=== PATIENT | female | born 1995 | race Caucasian/White ===

== ENCOUNTER 2024-06-28 18:05 | Emergency (ER) | payer OTHER, SELFPAY ==
[2024-06-28 18:09] VITALS: BP 142/83; PULSE 89; TEMP 36.9; O2SAT 99
--- NOTE | 2024-06-28 18:14 | ED.DENTAL1 ---
HPI - Dental/Oral General Chief complaint: Dental/Oral Stated complaint: DENTAL PAIN Time Seen by Provider: 06/28/24 18:06 Source: patient Mode of arrival: walk-in History of Present Illness HPI Narrative: Patient is a 28-year-old female who presents to the ER for evaluation of dental pain. Patient states she has been sleeping most of the day but the pain worsened after waking. She has known dental caries, she reports not being able to see a dentist for several months but recently moved to the area. She denies any swelling or drainage, there is been no fever. She is not taking anything for pain describes intense aching in the right lower jaw. No difficulty swallowing. Patient reports not being on antibiotics in recent months. She is tearful at the bedside. MD Complaint: Reports tooth pain Duration: constant Context: history of dental caries Treatment prior to arrival: none Related Data Previous Rx's ?Medication ?Instructions ?Recorded ibuprofen 600 mg tablet 600 mg PO TID PRN pain #30 tabs 06/28/24 penicillin V potassium 500 mg 500 mg PO TID #30 tabs 06/28/24 tablet Allergies Allergy/AdvReac Type Severity Reaction Status Date / Time No Known Drug Allergies Allergy Verified 06/28/24 18:12 Review of Systems ROS Constitutional Denies: fever or chills Ears, nose, mouth, and throat Denies: throat pain, neck pain or throat swelling Cardiovascular Denies: chest pain, palpitations or edema Respiratory Denies: shortness of breath or cough Gastrointestinal Denies: abdominal pain or nausea Musculoskeletal Denies: back pain Integumentary/Breast Denies: rash or itching Neurological Denies: headache Exam Narrative Exam Narrative: Nurses notes reviewed and patient is noted to be non-hypoxic. General: The patient is comfortable, alert and oriented x3, well appearing, non toxic in no apparent distress. Head: Atraumatic and normocephalic. Eyes: Normal conjunctiva, no exudates. ENT: The oropharynx is normal. No pharyngeal erythema, uvular edema, tonsillar exudates, asymmetry or trismus. Uvula is midline. Mouth is normal to inspection With the exception of a pain on percussion to eroded molar at gum line right lower jaw. Multiple teeth with evidence of dental caries at various stages of decay. . There is no evidence of facial asymmetry or abscess formation. Floor of the mouth is soft. No tenderness in the submental or submandibular space. No tongue elevation or deviation. The patient has no evidence of periapical abscess, gingivitis, ANUG or other acute pathology. Airway is patent. Neck: The neck demonstrates normal range of motion. No meningeals signs are present. No stridor. No masses or lymphandenopathy noted. Respiratory: No acute distress, lungs are clear to auscultation, no wheezing, rhonchi, or rales noted. No stridor or retractions are noted. Cardiovascular: Regular rate and rhythm Skin: The skin exam shows no evidence of rashes Neuro: Alert and oriented x4, normal speech Lymphatic: No cervical lymphadenopathy Constitutional Vital Signs, click to edit/add: Last Vital Signs Temp 98.4 F 06/28/24 18:09 Pulse 89 06/28/24 18:09 Resp 20 06/28/24 18:09 BP 142/83 H 06/28/24 18:09 Pulse Ox 99 06/28/24 18:09 O2 Del Method Room Air 06/28/24 18:09 Course Vital Signs Vital signs: Vital Signs Temperature 98.4 F 06/28/24 18:09 Pulse Rate 89 06/28/24 18:09 Respiratory Rate 20 06/28/24 18:09 Blood Pressure 142/83 H 06/28/24 18:09 Pulse Oximetry 99 06/28/24 18:09 Oxygen Delivery Method Room Air 06/28/24 18:09 Temperature 98.4 F 06/28/24 18:09 Pulse Rate 89 06/28/24 18:09 Respiratory Rate 20 06/28/24 18:09 Blood Pressure 142/83 H 06/28/24 18:09 Pulse Oximetry 99 06/28/24 18:09 Oxygen Delivery Method Room Air 06/28/24 18:09 MDM - Dental/Oral MDM Narrative Medical decision making narrative: oarrs reviewed. prior tx with Buprenorphine-Nalox 8-2mg Film, Will not rx narcotic pain medicine, no evidence of abscess. Appearance of dentition appears very chronic, but will cover with antibiotic given possiblity of dental infection with onset of pain. Recommend Motrin/ tylenol. ( 1st dose given here with PCN VK)- rx sent to pharmacy. Discussed importance of prompt dental follow up. The patient is to followup with DDS, primary care physician in next 2-3 days or to return to the emergency department should any of the signs or symptoms worsen or new symptoms develop. Patient had questions answered. The patient agrees with the following Diagnosis and Treatment plan and the patient will be discharged home. Discharge Plan Discharge Stand Alone Forms: Work/School Release, Portal Instructions Chief Complaint: Dental/Oral Clinical Impression: Dental caries, Toothache Patient Disposition: Home, Self-Care Time of Disposition Decision: 18:14 Condition: Good Prescriptions / Home Meds: New ibuprofen 600 mg tablet 600 mg PO TID PRN (Reason: pain) Qty: 30 0RF penicillin V potassium 500 mg tablet 500 mg PO TID Qty: 30 0RF Print Language: Polish Instructions: Toothache (ED) Additional Instructions: Dental clinic sheet given, please call Saturday for appt. Referrals: Physician,Non-Staff, MD [Primary Care Provider] - 1 week YUE CARTER [Nurse Practitioner] - As soon as possible
[2024-06-28] MEDS: BENZOCAINE 30 ML, lidocaine HCL 15 ML MM (18:25)
[2024-06-28] MEDS: PENICILLIN V POTASSIUM 250 MG TABLET 500 MG PO (18:25)
[2024-06-28] MEDS: IBUPROFEN 600 MG TABLET PO (18:26)
[2024-06-28] MEDS: ACETAMINOPHEN 500 MG TABLET 1000 MG PO (18:26)
== END 2024-06-28 18:34 | disposition home or self-care (01) ==
PROVIDERS: Emergency Provider Emergency Medicine Emergency Medical Services
DX: K02.9 Dental caries, unspecified (principal); K08.89 Other specified disorders of teeth and supporting structures
CPT/HCPCS: 99283

== ENCOUNTER 2024-07-26 11:30 | Emergency (ER) | payer OTHER, SELFPAY ==
--- OUTSIDE RECORDS SUMMARY | 2024-07-26 11:38 | XMS_ITS | CCD ---
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 cannot be excluded). Retest in 2-4 weeks if syphilis is clinically suspect. Performed By: #### T REP, PHEP, HIVCMB #### [address] [address] Pump Tester: Perry Marte MD #### CDP HCG, CP #### [address] [place], [place] [phone] Pump Tester: Adonis Thomas MD UA w/Reflex Cultureon 2023 Bilirubin, SemiQt,Ur Negative Normal NEG [facility] Comment on above: Performed By: #### U AX, UMICAO #### [facility] [address] [place], [place] [phone] Pump Tester: Adonis Thomas MD Blood, Urine 2+ Abnormal NEG [facility] Comment on above: Performed By: #### U AX, UMICAO #### [facility] [address] [place], [place] [phone] Pump Tester: Adonis Thomas MD Clarity (U) Clear Normal CLEAR [facility] Comment on above: Performed By: #### U AX, UMICAO #### [facility] [address] [place], [place] [phone] Pump Tester: Adonis Thomas MD Color (U) Yellow Normal YEL [facility] Comment on above: Performed By: #### U AX, UMICAO #### [facility] [address] [place], [place] [phone] Pump Tester: Adonis Thomas MD Glucose Ql (U) Negative Normal NEG [facility] Comment on above: Performed By: #### U AX, UMICAO #### [address] [place] [address] Pump Tester: Adonis Thomas MD Ketones Ql (U) Negative Normal NEG [facility] Comment on above: Performed By: #### U AX, UMICAO #### [facility] [address] [place], [place] [phone] Pump Tester: Adonis Thomas MD Leukocyte esterase Test strip Ql (U) Negative Normal NEG [facility] Comment on above: Performed By: #### U AX, UMICAO #### [facility] [address] [place], [place] [phone] Pump Tester: Adonis Thomas MD Nitrite,Ur Negative Normal NEG [facility] Comment on above: Performed By: #### U AX, UMICAO #### [facility] [address] [place], [place] [phone] Pump Tester: Adonis Thomas MD PH,Ur 6.0 Normal 5.0-9.0 [facility] Comment on above: Performed By: #### U AX, UMICAO #### [facility] [address] [place], [place] [phone] Pump Tester: Adonis Thomas MD Protein Ql (U) Negative Normal NEG [facility] Comment on above: Performed By: #### U AX, UMICAO #### [facility] [address] [place], [place] [phone] Pump Tester: Adonis Thomas MD Spec. [place],Ur >1.030 High 1.010-1.020 [facility] Comment on above: Performed By: #### U AX, UMICAO #### [facility] [address] [place] [address] [place], [place] [phone] Pump Tester: Adonis Thomas MD Urobilinogen,Ur Normal Normal 0.0-1.0 [facility] Comment on above: Performed By: #### U AX, UMICAO #### [facility] [address] [place] [address] Dr[place], [place] [phone] Pump Tester: Adonis Thomas MD Urinalysis,Microon 4 Bacteria 1+ Abnormal NONE [facility] Comment on above: Performed By: #### U AX, UMICAO #### [facility] [address] [place], [place] [phone] Pump Tester: Adonis Thomas MD Epithelial cells LM Ql (Urine sed) 10 TO 20 Normal 0-25 [facility] Comment on above: Performed By: #### U AX, UMICAO #### [facility] [address] [place], [place] [phone] Pump Tester: Adonis Thomas MD Urine RBC's 2 TO 5 Normal 0-2 [facility] Comment on above: Performed By: #### U AX, UMICAO #### [facility] [address] [place] [address] Pump Tester: Adonis Thomas MD Urine WBC's 0 TO 2 Normal 0-5 [facility] Comment on above: Performed By: #### U AX, UMICAO #### [facility] [address] [place] [address] Pump Tester: Adonis Thomas MD C. trachomatis and N. gonorr hoeae DNA JOSE R+probe Nom (Unsp spec)on 02-21-2024 C. trachomatis rRNA JOSE R+probe Ql (Unsp spec) Negative Normal Negative [facility] Comment on above: Order Comment: The A PTIMA Combo 2 assay is FDA-approved NAAT using target capture for the in vitro qualitative detection and differentiation of ribosomal RNA (rRNA) for Chlamydia trachomatis and Neisseria gonorrhoeae testing on clinician-collected endocervical, PreservCyt solution liquid Pap specimens, vaginal, throat, rectal, and male urethral swab specimens; patient-collected vaginal swab specimens, and female and male urine specimens from symptomatic and asymptomatic individuals. Samples from all other sites are not validated for this method. Performed By: #### 3 6903-3 #### RONAL Gerber ([id number]) [facility] ([facility]) [address] [place] [address] N. gonorrhoeae DNA Probe+sig amp Ql (Unsp spec) Negative Normal Negative [facility] Comment on above: Order Comment: The A PTIMA Combo 2 assay is FDA-approved NAAT using target capture for the in vitro qualitative detection and differentiation of ribosomal RNA (rRNA) for Chlamydia trachomatis and Neisseria gonorrhoeae testing on clinician-collected endocervical, PreservCyt solution liquid Pap specimens, vaginal, throat, rectal, and male urethral swab specimens; patient-collected vaginal swab specimens, and female and male urine specimens from symptomatic and asymptomatic individuals. Samples from all other sites are not validated for this method. Performed By: #### 3 6903-3 #### RONAL Gerber ([id number]) [facility] ([facility]) [address] [place] [address] Trichomonas vaginalis rRNAon 02-21-2024 T. vaginalis rRNA JOSE R+probe Ql (Unsp spec) Positive Abnormal Negative, Invalid, TRICH neg [facility] Comment on above: Order Comment: The A PTIMA Trichomonas vaginalis assay is FDA-approved for testing on female endocervical swabs, vaginal swabs, and ThinPrep liquid pap samples. Performance characteristics for Trichomonas vaginalis on specific vml-KEI-faujhonl sample types (female and male urine and male urethral swabs) have been validated by [facility]. This laboratory is certified by CLIA to perform high complexity testing. Samples from all other sites are not validated for this method. Result Comment: Perf ormance characteristics for Trichomonas Vaginalis testing on urine samples has been validated by [facility]. Testing on this sample type is not FDA-approved, but such approval is not necessary. This laboratory is certified by CLIA to perform high complexity testing. Performed By: #### 4 6154-1 #### RONAL Gerber ([id number]) [facility] ([facility]) [address] [place] [address] Alcoholon 05-29-2023 Blood Alcohol Concentration Not indicated Normal Comment on above: Performed By: #### A LCO[facility] #### [address] [place] [address] Ethanol [Mass/Vol] mg/dL Normal Comment on above: Performed By: #### A LCOH #### [address] [place] [address] Comprehensive Metabolic Pane adriano 05-29-2023 Albumin [Mass/Vol] 5.2 g/dL Critically high 3.5-4.6 [facility] Comment on above: Performed By: #### C MP #### [address] [place] [address] ALP [Catalytic activity/Vol] 64 U/L Normal 40-130 Comment on above: Performed By: #### C MP #### [address] [place] [address] ALT [Catalytic activity/Vol] 17 U/L Normal 0-33 Comment on above: Performed By: #### C MP #### [address] [place] [address] Anion gap [Moles/Vol] 19 mmol/L Critically high 9-15 Comment on above: Performed By: #### C MP #### [address] [place] [address] AST [Catalytic activity/Vol] 22 U/L Normal 0-35 Comment on above: Performed By: #### C MP #### [address] [place] [address] Bilirubin [Mass/Vol] 0.8 mg/dL Critically high 0.2-0.7 Comment on above: Performed By: #### C MP #### [address] [place] [address] Calcium [Mass/Vol] 10.2 mg/dL Critically high 8.5-9.9 M [facility] Comment on above: Performed By: #### C MP #### [address] [place] [address] Chloride [Moles/Vol] 99 mmol/L Normal 95-107 Comment on above: Performed By: #### C MP #### [address] [place] [address] CO2 [Moles/Vol] 22 mmol/L Normal 20-31 Comment on above: Performed By: #### C MP #### [address] [place] [address] Creatinine [Mass/Vol] 0.60 mg/dL Normal 0.50-0.90 Comment on above: Performed By: #### C MP #### [address] [place] [address] GFR >60.0 Normal >60 Comment on above: Result Comment: Cristy atric calculator link https://www.kidney.org/professionals/kdoqi/gfr_calculatorped Effective Aug 06, 2022 These results are not intended for use in patients <18 years of age. eGFR results are calculated without a race factor using the 2020 CKD-EPI equation. Careful clinical correlation is recommended, particularly when comparing to results calculated using previous equations. The CKD-EPI equation is less accurate in patients with extremes of muscle mass, extra-renal metabolism of creatinine, excessive creatinine ingestion, or following therapy that affects renal tubular secretion. Performed By: #### C MP #### [address] [place] [address] Globulin (S) [Mass/Vol] 2.6 g/dL Normal 2.3-3.5 Comment on above: Performed By: #### C MP #### [address] [place] [address] Glucose [Mass/Vol] 102 mg/dL Critically high 70-99 M [facility] Comment on above: Performed By: #### C MP #### [address] [place] [address] Potassium [Moles/Vol] 3.9 mmol/L Normal 3.4-4.9 Comment on above: Performed By: #### C MP #### [address] [place] [address] Protein [Mass/Vol] 7.8 g/dL Normal 6.3-8.0 Comment on above: Performed By: #### C MP #### [address] [place] [address] Sodium [Moles/Vol] 140 mmol/L Normal 135-144 Comment on above: Performed By: #### C MP #### [address] [place] [address] Urea nitrogen [Mass/Vol] 9 mg/dL Normal 6-20 Comment on above: Performed By: #### C MP #### [address] [place] [address] UR Drugs of Abuse Panelon Drug Screen Comment see below Normal Comment on above: Result Comment: This method is a screening test to detect only these drug classes as part of a medical workup. Confirmatory testing by another method should be ordered if clinically indicated. Performed By: #### U DRGS #### [address] [place] [address] UR Amphetamines Screen Negative Normal Negative < Comment on above: Performed By: #### U DRGS #### [address] [place] [address] UR Barbiturates Screen Negative Normal Negative < Comment on above: Performed By: #### U DRGS #### [address] [place] [address] UR Benzo Screen Negative Normal Negative < Comment on above: Performed By: #### U DRGS #### [address] [place] [address] UR Cannabinoids Screen Negative Normal Negative < Comment on above: Performed By: #### U DRGS #### [address] [place] [address] UR Cocaine Screen Positive Abnormal Negative < Comment on above: Performed By: #### U DRGS #### [address] [place] [address] UR Fentanyl Screen Negative Normal Negative < Comment on above: Performed By: #### U DRGS #### [address] [place] [address] UR Methadone Screen Negative Normal Negative < Comment on above: Performed By: #### U DRGS #### [address] [place] [address] UR Opiates Screen Negative Normal Negative < Comment on above: Performed By: #### U DRGS #### [address] [place] [address] UR Oxycodone Screen Negative Normal Negative < Comment on above: Performed By: #### U DRGS #### [address] [place] [address] UR PCP Screen Negative Normal Negative < Comment on above: Performed By: #### U DRGS #### [address] [place] [address] UR Propoxyphene Screen Negative Normal Negative < Comment on above: Performed By: #### U DRGS #### [address] [place] [address] Urinalysis, reflex to micros copicon 05-29-2023 Bilirubin Ql (U) Negative Normal Negative Comment on above: Performed By: #### U A #### [address] [place] [address] Clarity (U) Clear Normal Clear Comment on above: Performed By: #### U A #### [address] [place] [address] Color (U) Yellow Normal Straw/Marion Comment on above: Performed By: #### U A #### [address] [place] [address] Glucose Ql (U) Negative Normal Negative Comment on above: Performed By: #### U A #### [address] [place] [address] Hemoglobin Ql (U) Negative Normal Negative Comment on above: Performed By: #### U A #### [address] [place] [address] Ketones Ql (U) 15 mg/dL Abnormal Negative Comment on above: Performed By: #### U A #### [address] [place] [address] Leukocyte esterase Test strip Ql (U) TRACE Abnormal Negative Comment on above: Performed By: #### U A #### [address] [place] [address] Nitrite Ql (U) Negative Normal Negative Comment on above: Performed By: #### U A #### [address] [place] [address] pH (U) 7.5 [pH] Normal 5.0-9.0 Comment on above: Performed By: #### U A #### [address] [place] [address] Protein Ql (U) Negative Normal Negative Comment on above: Performed By: #### U A #### [address] [place] [address] Specific gravity (U) [Rel density] 1.008 Normal 1.005-1.03 Comment on above: Performed By: #### U A #### [address] [place] [address] Urobilinogen Qn (U) 0.2 {Vielka'U}/dL Normal < 2.0 Comment on above: Performed By: #### U A #### [address] [place] [address] Urine Microscopicon 05-29-20 23 Urine Bacteria MANY Abnormal Negative Comment on above: Performed By: #### A [facility] #### [address] [place] [address] Urine Epithelial Cells Auto 0-2 Normal 0-5 Comment on above: Performed By: #### A LCOH #### [address] [place] [address] Urine Hyaline Casts Auto 3-5 Normal 0-5 Comment on above: Performed By: #### A L[facility] #### [address] [place] [address] Urine RBC Auto 0-2 Normal 0-5 Comment on above: Performed By: #### A L[facility] #### [address] [place] [address] Urine WBC Auto 10-20 Abnormal 0-5 Comment on above: Performed By: #### A [facility] #### [address] [place] [address] PROGRAM CHECKER - Office Visiton 03-0 PROGRAM CHECKER - Office Visit Provider Impressions 27-year-old myofascial sexual pain Physical therapy Follow-up in 1 month Chief Complaint Est 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 History of Present IllnessPatient has sexual pain associated with myofascial etiology previously discussed multiple times Worse now reports doing Kegel exercises discussed that this exacerbates muscle tension as it does not include the relaxation phase reputable muscles causes tenderness worsening of pain Discussed physical therapy Discussed trigger point injection Botox injection Kerry therapy Active Problems Problems Anxiety and depression (300.00,311) (F41.9,F32.A) Burning with urination (788.1) (R30.0) Chlamydia infection (079.98) (A74.9) Closed nondisplaced fracture of distal phalanx of left great toe, initial encounter (826.0) (S92.425A) Encounter for visit (V24.2) (Z39.2) Gardnerella infection (041.89) (A49.8) Increased urinary frequency (788.41) (R35.0) Painful intercourse (625.0) Post-operative pain (338.18) (G89.18) Preoperative evaluation for tubal ligation (V72.83) (Z01.818) Sore throat (462) (J02.9) Vaginal discharge (623.5) (N89.8) Voiding pain (788.1) (R30.9) Past Medical History Problems History of Anemia of mother in (648.20,285.9) (O99.019) Low ferritin, begin ferrous sulfate 325 milligrams twice a day- History of demise (779.9) History of Gonorrhea in female (098.0) (A54.9) History of nausea (V12.79) (Z87.898) History of (V13.29) History of spontaneous (V13.29) (Z87.59) History of vaginal discharge (V13.29) (Z87.42) Resolved Date: 11 Jun 2019 History of Leukocytes in urine (791.7) (R82.998) History of Menarche (V21.8) History of Missed (632) (O02.1) History of Positive Chlamyida test (079.98) (A74.9) History of Screen for STD (sexually transmitted disease) (V74.5) (Z11.3) Surgical History Problems History of Dilation and curettage History of Tubal ligation bilateral Family History Mother No pertinent family history Father No pertinent family history Other Family history of cardiac disorder (V17.49) (Z82.49) Social History Problems Caffeine use (V49.89) (Z78.9) No alcohol use Non-smoker (V49.89) (Z78.9) Allergies Medication No Known Drug Allergies Recorded By: Kain Anaya; 04/22/2019 3:32:19 PM Current Meds Medication NameInstruction Azithromycin 250 MG Oral TabletTAKE 2 TABLETS ON DAY 1 THEN TAKE 1 TABLET A DAY FOR 4 DAYS. Ciprofloxacin HCl - 500 MG Oral TabletTAKE 1 TABLET TWICE DAILY. FLUoxetine HCl - 20 MG Oral Capsule Ibuprofen 800 MG Oral TabletTAKE 1 TABLET 3 TIMES DAILY WITH FOOD NEEDED. Ibuprofen 800 MG Oral Tablet Nitrofurantoin Monohyd Macro 100 MG Oral CapsuleTAKE 1 CAPSULE TWICE DAILY UNTIL GONE. Vitals Vital Signs Recorded: 09Jan2023 04:18PM [id number], LUE, Sitting Unwhqymhw33, LUE, Sitting Height5 ft 6 in Lxtdvo796 lb 6 oz BMI Thyhfxexoq16.59 kg/m2 BSA Calculated1.78 Tobacco Useb) No PHQ-2 #1. Over the last 2 weeks have you felt down, depressed or hopeless? (If yes, answer PHQ-9 below)No PHQ-2 #2. Over the last 2 weeks have you felt little interest or pleasure in doing things? (If yes, answer PHQ-9 below)No Falls Screening (Age 18+)a) No falls within the last year [id number] Signatures Electronically signed by : Cally Meyer MD; Jan 10 2023 9:46AM EST (Author) Normal [employer] Tobacco Screening.on 023 Adult depression screening assessment No [facility] Work Phone: Fall risk assessment a) No falls within the last year [facility] Work Phone: Last menstrual period start date 22Dec2022 [facility] Work Phone: Tobacco use status [facility] b) No [facility] Work Phone: Established Visit (Orthopaed ic Surgery)on 11-22-2022 Established Visit (Orthopaedic Surgery) Diagnoses/Problems Assessed Closed nondisplaced fracture of distal phalanx of left great toe, initial encounter (826.0) (S92.425A) Orders Closed nondisplaced fracture of distal phalanx of left great toe, initial encounter Start: Ibuprofen 800 MG Oral Tablet; TAKE 1 TABLET 3 TIMES DAILY WITH FOOD NEEDED Walking Boot Short; Status:Need Information - Financial Authorization; Requested for:22Nov2022; Chief Complaint Lt big toe fx 11/19 xrays at History of Present Illness New Patient Visit: CC: Left proximal first toe fracture HPI: 27-year-old female presents here today with complaints of pain discomfort to the left big toe. She points to the front of her foot and great toe as area of most pain discomfort. She states that she had tripped stubbed her toe Pain and discomfort. She was seen and evaluated 3 days ago at where she was diagnosed with a nondisplaced proximal great toe fracture. She presents here today for further evaluation. She denies any numbness tingling or burning. She denies any open cuts or sores. She has difficulty ambulating with the cast shoe from the ER. She denies any previous history of injury or trauma to the left big toe in the past. Review of Systems, Past Medical History, Social History, and Family History documented and initialed on the patient information form dated 11/22/2022. Physical Exam: GENERAL: Patient is awake, alert, and oriented to person place and time. Patient appears well nourished and well kept. Affect Calm, Not Acutely Distressed. HEENT: Normocephalic, Atraumatic, EOMI CARDIOVASCULAR: Hemodynamically stable. RESPIRATORY: Normal respirations with unlabored breathing. NEURO: Gross sensation intact to the lower extremities bilaterally. Extremity: Left great toe exam: Inspection no redness warmth erythema. Bruising and swelling is noted. Exquisite tenderness at the first MTP joint, minimal pain at the IP joint. Good distal cap refill is noted. Antalgic gait secondary to pain. Negative midfoot squeeze. Diagnostics: Previous plain films reviewed Procedure: None Assessment: Left proximal first phalanx fracture with intra-articular component Plan: Discussed the nonoperative nature of this injury with the patient accepts. We will offer her short walking boot for more protection given young ones in the home and pets. We will see her back in 3 weeks for repeat evaluation, repeat x-rays 3 views of the left big toe. May consider transition to a postop shoe possibly at that time. Initially discussed the ability to provide pain medication for the patient, however after checking [place], it was evident the patient is currently in pain management on buprenorphine and naloxone. We would not be able to provide her with pain medication, thus an anti-inflammatory 800 mg ibuprofen prescription was sent to her pharmacy. She can supplement this with ice elevation and Tylenol as well. At the conclusion of the visit there were no further questions by the patient/family regarding their plan of care. Patient was instructed to call or return with any issues, questions, or concerns regarding their injury and/or treatment plan described above. This note was prepared using voice recognition software. The details of this note are correct and have been reviewed, and corrected to the best of my ability. Some grammatical areas may persist related to the [employer] software Chacorta Erwin MD Office: . Active Problems Problems Anxiety and depression (300.00,311) (F41.9,F32.A) Burning with urination (788.1) (R30.0) Chlamydia infection (079.98) (A74.9) Encounter for visit (V24.2) (Z39.2) Gardnerella infection (041.89) (A49.8) Increased urinary frequency (788.41) (R35.0) Painful intercourse (625.0) Post-operative pain (338.18) (G89.18) Preoperative evaluation for tubal ligation (V72.83) (Z01.818) Sore throat (462) (J02.9) Vaginal discharge (623.5) (N89.8) Voiding pain (788.1) (R30.9) Past Medical History Problems History of Anemia of mother in (648.20,285.9) (O99.019) Low ferritin, begin ferrous sulfate 325 milligrams twice a day- History of demise (779.9) History of Gonorrhea in female (098.0) (A54.9) History of nausea (V12.79) (Z87.898) History of (V13.29) History of spontaneous (V13.29) (Z87.59) History of vaginal discharge (V13.29) (Z87.42) Resolved Date: 11 Jun 2019 History of Leukocytes in urine (791.7) (R82.998) History of Menarche (V21.8) History of Missed (632) (O02.1) History of Positive Chlamyida test (079.98) (A74.9) History of Screen for STD (sexually transmitted disease) (V74.5) (Z11.3) Surgical History Problems History of Dilation and curettage History of Tubal ligation bilateral Family History Mother No pertinent family history Father No pertinent family history Other Family history of cardiac disorder (V17.49) (Z82.49) Social History Problems Caffeine use (V49.89) (more content not included)... Normal [facility] Provider Note - ED v3on 11-04 Provider Note - ED v3 Provider Note: Chart Review: ED NOTES ED NOTES: 27-year-old female, otherwise healthy presenting to the ED today with continued pain to her left big toe. Patient states 2 days ago she was playing with her kids and she tripped and fell. She does not remember stubbing the toe against anything specific but states after the fall she had pain at the bottom of her left big toe. She states she came to the ER yesterday, she was told that the toe was fractured and she has never broken a bone before. She was discharged home with ibuprofen but is requesting something stronger for pain as it was keeping her up overnight tonight. There was no new injury since that time and she states she has kept the splint in place and used her crutches but she did try to put weight on the foot tonight which made her pain worse. The pain does not radiate up towards her ankle or into her calf or knee. There is no numbness or paresthesias. No further pain or complaints at this time. She does not smoke or use any alcohol or IV drugs. HISTORY OF PRESENTING ILLNESS JULIETTE is a 27 year old Female and was seen by me at 21-Nov-2022 01:56 for a chief complaint of foot pain/injury (pt was seen 12 hrs earlier for a left foot injury. pt returned due to continuous left foot pain. pt states that she can't sleep because of the pain.)(1). The historian is the patient. Triage Information: Most recent Vital Sign Value Date Temp (F): 97.7 11-21-2022 01:56 Temp (C): 36.5 11-21-2022 01:56 Heart Rate (beats/min): 87 11-21-2022 01:56 Respirations (breaths/min): 18 11-21-2022 01:56 SpO2 (%): 100 11-21-2022 01:56 BP Systolic (mm Hg): 120 11-21-2022 01:56 BP Diastolic (mm Hg): 63 11-21-2022 01:56 PAST MEDICAL HISTORY ALLERGIES/INTOLERANCES: No Known Allergies HEALTH HISTORY: No documented data. OUTPATIENT MEDICATIONS: Home Medications Review Status for Reconciliation: N/A Med Status: Incomplete Medication History Drug Name: FLUoxetine 20 mg oral tablet Instructions: 1 tab(s) orally once a day Drug Name: Colace 100 mg oral capsule Instructions: 1 cap(s) orally 2 times a day Drug Name: gabapentin 600 mg oral tablet Instructions: 1 tab(s) orally every 12 hours Drug Name: Anaprox-DS 550 mg oral tablet Instructions: 1 tab(s) orally 2 times a day Drug Name: Flagyl 500 mg oral tablet Instructions: 1 tab(s) orally 2 times a day x 7 days Drug Name: ondansetron 4 mg oral tablet, disintegrating Instructions: 1 tab(s) orally every 8 hours Drug Name: Macrobid 100 mg oral capsule Instructions: 1 cap(s) orally 2 times a day x 7 days Drug Name: naloxone 4 mg/0.1 mL nasal spray Instructions: 4 milligram(s) intranasally once a day both nostrils one time as needed for lethargy and suspected overdose Drug Name: IBU 600 mg oral tablet Instructions: 1 tab(s) orally every 6 hours, As Needed -for moderate pain SIGNIFICANT EVENTS: Clinical Events Description:Surgical Procedure Additional Notes:1. Laparoscopic filshie clip patient;2. ;3. ;4. ;5. Description:Surgical Procedure Additional Notes:1. LABIA MINORA REDUCTION, BILATERAL PERINEOPLASTY, POSTERIOR REPAIR; Past Medical History Description:denies Past Surgical History Description:tubal ligation REVIEW OF SYSTEMS All other systems reviewed and are negative PHYSICAL EXAM CONSTITUTIONAL: well nourished, awake, alert, oriented to person, place, time/situation, tearful and crying EYES: Clear bilaterally, pupils equal, round and reactive to light. CARDIOVASCULAR: Normal rate, regular rhythm. Heart sounds S1, S2. No murmurs, rubs or gallops. DP/PT 2+, cap refill < 2 sec RESPIRATORY: Breath sounds clear and equal bilaterally. MUSCULOSKELETAL: Left foot ttp at base of 1st digit with very mild blanching erythema. no crepitus or edema or ecchymosis. no further bony tenderness or bony deformity to left foot or ankle. NVI NEUROLOGICAL: Alert and oriented, speech normal SKIN: Skin normal color for race, warm, dry and intact CRITICAL CARE RESULTS: Radiology Results: Impression: Fracture first digit left foot. Signed by Kirk Lopez D.O. Xray Foot Complete Min 3 View [Nov 20 2022 2:54PM] VITAL SIGNS: T PRBP SpO2O2(LPM) %FiO2 Method 21-Nov-2022 01:56:[id number]/63 100 room air, no respiratory support MDM MDM/ED COURSE: 27-year-old female, otherwise healthy presenting to the ED today with continued pain to her left toe. She had a fall 2 days ago and came to the ER yesterday due to continued left big toe pain. There was no new injury since that time and she states that she was diagnosed with a toe fracture and given a splint and crutches. She has not taken anything else for pain other than the prescribed ibuprofen and states it was keeping her up overnight so she called 911 so she can have something stronger for pain today. She was going to follow-up with orthopedics today. N (more content not included)... Normal [facility] Triage - EDon 11-21-2022 Triage - ED Quick Triage: Are You no Are You Currently Breastfeedingno Chart Review: PRIMARY ASSESSMENT JULIETTE HERNÁNDEZ's primary assessment is Within Defined Limits. The airway is open and patent. Breathing spontaneous and unlabored with clear breath sounds bilaterally. Circulation is normal with good peripheral pulses. Skin is warm and dry and color is normal for race. TREATMENT PRIOR TO ARRIVAL EMS REPORTED VITAL SIGNS Blood Pressure: 110/60 Mean: Heart Rate: 80 Pulse Oximetry: 99% ARRIVAL INFORMATION Mode of Arrival: ambulance [facility] Name[facility] CHIEF COMPLAINT JULIETTE HERNÁNDEZ is a Female patient with a chief complaint of foot pain/injury (pt was seen 12 hrs earlier for a left foot injury. pt returned due to continuous left foot pain. pt states that she can't sleep because of the pain.). Onset of the Complaint: 20-Nov-2022 13:00 Triage Date/Time: 21-Nov-2022 01:56 CALLIE: 3V Pain Rating (0-10): 10 = Severe Acceptable Pain Level (0-10): 0 Pain location: left foot Vital Signs: Temperature: 97.7F ( 36.5C) taken temporal Blood Pressure: 120/63 Mean: Heart Rate: 87 Respiratory Rate: 18 Pulse Oximetry: 100% on room air, no respiratory support. Height: 5 feet 6.00 inches. 167.6 CM Weight: 150.1 pounds. Calculated 68.1 kg. Calculated BMI (kg/m2): 24.243 Calculated BSA (m2) 1.78 Valier Coma Scale: Best Eye Response: (E4) spontaneous Best Motor Response: (M6) obeys commands Best Verbal Response: (V5) oriented Valier Score: 15 Cough lasting greater than 3 weeks: no Allergies: no Mask applied: yes Patient has homicidal thoughts: no Risk Screens Suicide Risk Screen In the Past Month: Have you wished you were or wished you could go to sleep and not wake up no In the Past Month: Have you had any actual thoughts of killing yourself no In Your Lifetime: Have you ever done anything, started to do anything, or prepared to do anything to end your life no Interventions: Carlin Fall Interventions: LOW INTERVENTIONS: *patient oriented to surroundings and call system, * patient/family falls education completed and documented, *patients fall status communicated during bedside handoff, *whiteboard updated, *mode of toileting discussed with patient, *bed in low position with brakes locked, *call light in reach, * non-skid footwear TRAVEL HISTORY Travel History Coronavirus Screening: no exposure or symptoms Travel Exposure History: NO travel to International locations in the past 30 days PAIN Pain Scale Used: JOHN Pain Rating (0-10): 10 = Severe Acceptable Pain Level (0-10): 0 Past Medical History: Past Medical History Reviewedyes Electronic Signatures: Kashif Hammond (NIHARIKA) (Signed 21-Nov-2022 02:18) Authored: Quick Triage, Risk Screens, Pain, Pre-arrival, ABCD, Travel History, Chart Review, Scores, Past Medical History Last Updated: 21-Nov-2022 02:18 by Kashif Hammond (NIHARIKA) [facility] Provider Note - ED v3on 11-04 Provider Note - ED v3 Provider Note: Chart Review: ED NOTES ED NOTES: 19-year-old female presents emergency department with complaints of foot pain. Patient states he was running yesterday and tripped, did not think she injured herself but today woke up and the great toe on the left foot is significantly painful, red and swollen. States pain with any attempt to ambulate. Denies any additional injuries or complaints. Limitations to history: None Independent Historians: None External Records Reviewed: PMFSH: As per HPI, otherwise nurses notes reviewed in EMR Exam: General: Vitals noted. No distress. Afebrile. Neck: Supple. No adenopathy. Cardiac: Regular rate and rhythm. No murmur. Pulmonary: Equal breath sounds bilaterally. No adventitious breath sounds. Abdomen: Soft, nontender, nonsurgical. Normoactive bowel sounds Back: Nontender throughout Lower extremity: Exam of the left foot shows tenderness, erythema and swelling proximal aspect of the great toe. The ankle is non-tender. The skin is intact. There is no deformity, edema, ecchymosis. Is neurovascularly intact distally. The remainder of the lower extremity is non-tender. HISTORY OF PRESENTING ILLNESS JULEITTE is a 27 year old Female and was seen by me at 20-Nov-2022 14:32 for a chief complaint of foot pain/injury (medial side of left foot. pt sts she cant put weight on it)(1). Triage Information: Most recent Vital Sign Value Date Temp (F): 98.4 11-20-2022 13:51 Temp (C): 36.9 11-20-2022 13:51 Heart Rate (beats/min): 84 11-20-2022 13:51 Respirations (breaths/min): 18 11-20-2022 13:51 SpO2 (%): 97 11-20-2022 13:51 BP Systolic (mm Hg): 110 11-20-2022 13:51 BP Diastolic (mm Hg): 62 11-20-2022 13:51 PAST MEDICAL HISTORY ALLERGIES/INTOLERANCES: No Known Allergies HEALTH HISTORY: No documented data. OUTPATIENT MEDICATIONS: Home Medications Review Status for Reconciliation: Incomplete Med Status: Incomplete Medication History Drug Name: FLUoxetine 20 mg oral tablet Instructions: 1 tab(s) orally once a day Drug Name: Colace 100 mg oral capsule Instructions: 1 cap(s) orally 2 times a day Drug Name: gabapentin 600 mg oral tablet Instructions: 1 tab(s) orally every 12 hours Drug Name: Anaprox-DS 550 mg oral tablet Instructions: 1 tab(s) orally 2 times a day Drug Name: Flagyl 500 mg oral tablet Instructions: 1 tab(s) orally 2 times a day x 7 days Drug Name: ondansetron 4 mg oral tablet, disintegrating Instructions: 1 tab(s) orally every 8 hours Drug Name: Macrobid 100 mg oral capsule Instructions: 1 cap(s) orally 2 times a day x 7 days Drug Name: naloxone 4 mg/0.1 mL nasal spray Instructions: 4 milligram(s) intranasally once a day both nostrils one time as needed for lethargy and suspected overdose Drug Name: IBU 600 mg oral tablet Instructions: 1 tab(s) orally every 6 hours, As Needed -for moderate pain SIGNIFICANT EVENTS: Clinical Events Description:Surgical Procedure Additional Notes:1. Laparoscopic filshie clip patient;2. ;3. ;4. ;5. Description:Surgical Procedure Additional Notes:1. LABIA MINORA REDUCTION, BILATERAL PERINEOPLASTY, POSTERIOR REPAIR; Past Medical History Description:denies Past Surgical History Description:tubal ligation CRITICAL CARE VITAL SIGNS: T PRBP SpO2O2(LPM) %FiO2 Method 20-Nov-2022 13:51:[id number] 97 room air, no respiratory support MDM MDM/ED COURSE: X-ray imaging was obtained, as interpreted by me confirmed fracture in this location. Discussed results with the patient, placed in a posterior short leg splint, Splint was placed by the bedside nurse, MSPs intact pre and post splint application, provided crutches to remain nonweightbearing. Discussed pain control, ice, elevation and close follow-up with orthopedicsDiscussed Findings with: patient Data Reviewed: vital signs Conducted Detailed Discussion with Patient and/or Guardian Regarding: radiology results, need for outpatient follow-up and return to ED if symptoms worsen, persist or questions arise DISPOSITION Diagnosis/Annotation: ED Dx Name:Toe fracture, left Code:S92.912A Disposition: discharged Type: home CONSULT CRITICAL CARE TIME Is this a critically ill patient: no Electronic Signatures: Elinor Sagastume (BACKEND JAVA DEVELOPER-SQUIRREL WORKER) (Signed 30-Nov-2022 06:11) Authored: ED Notes, HPI, PMH, Results/Vital Signs, MDM/ED Course, Clinical Impression, Attestation, Chart Review, Scores Last Updated: 30-Nov-2022 06:11 by Elinor Sagastume (BACKEND JAVA DEVELOPER-SQUIRREL WORKER) References: 1. Data Referenced From Triage - ED 20-Nov-2022 13:51 Normal [facility] Radiologyon 11-20-2022 XR Foot [facility]: Triage - EDon 11-20-2022 Triage - ED Quick Triage: Are You no Have You Given In The Last 6 Weeksno Are You Currently Breastfeedingno Chart Review: PRIMARY ASSESSMENT JULIETTE HERNÁNDEZ'bryon primary assessment is Within Defined Limits. The airway is open and patent. Breathing spontaneous and unlabored with clear breath sounds bilaterally. Circulation is normal with good peripheral pulses. Skin is warm and dry and color is normal for race. ARRIVAL INFORMATION Means of Arrival: Ambulatory Mode of Arrival: private vehicle Arrival From: home Accompanied By: self Language: Spoken Language Preferred: Northern Irish Reading Language Preferred: Northern Irish Rubber Trimmer Requested: no park interpreter was requested MDRO: History of MDRO: no Present on Arrival: Device Present on Arrival to ED: no Pressure Ulcer Present on Arrival to ED: no CHIEF COMPLAINT JULIETTE HERNÁNDEZ is a Female patient with a chief complaint of foot pain/injury (medial side of left foot. pt sts she cant put weight on it). Triage Date/Time: 20-Nov-2022 13:51 CALLIE: 4 Pain Rating (0-10): 9 = Severe Vital Signs: Temperature: 98.4F ( 36.9C) Blood Pressure: 110/62 Mean: Heart Rate: 84 Respiratory Rate: 18 Pulse Oximetry: 97% on room air, no respiratory support. Height: 5 feet 6.00 inches. 167.6 CM Weight: 149.9 pounds. Calculated 68.0 kg. Calculated BMI (kg/m2): 24.208 Calculated BSA (m2) 1.78 Valier Coma Scale: Best Eye Response: (E4) spontaneous Best Motor Response: (M6) obeys commands Best Verbal Response: (V5) oriented Ildefonso Score: 15 Patient has homicidal thoughts: no Risk Screens Suicide Risk Screen In the Past Month: Have you wished you were or wished you could go to sleep and not wake up no In the Past Month: Have you had any actual thoughts of killing yourself no In Your Lifetime: Have you ever done anything, started to do anything, or prepared to do anything to end your life no Interventions: Carlin Fall Interventions: LOW INTERVENTIONS: *patient oriented to surroundings and call system, * patient/family falls education completed and documented, *patients fall status communicated during bedside handoff, *whiteboard updated, *mode of toileting discussed with patient, *bed in low position with brakes locked, *call light in reach, * non-skid footwear TRAVEL HISTORY Travel History Coronavirus Screening: no exposure or symptoms Travel Exposure History: NO travel to International locations in the past 30 days PAIN Pain Scale Used: JOHN Pain Rating (0-10): 9 = Severe Past Medical History: Past Medical History Reviewedyes Electronic Signatures: Tara Pickett) (Signed 20-Nov-2022 13:54) Entered: Risk Screens, Pain, Arrival, ABCD, Travel History, Chart Review, Scores, Past Medical History Authored: Quick Triage, Risk Screens, Pain, Arrival, ABCD, Travel History, Chart Review, Scores, Past Medical History Last Updated: 20-Nov-2022 13:54 by Tara Pickett (RN) Normal [facility] Alcoholon 10-08-2022 Blood Alcohol Concentration Not indicated Normal Comment on above: Performed By: #### A [facility] #### [address] [place] [address] Ethanol [Mass/Vol] mg/dL Normal Comment on above: Performed By: #### [facility] #### [address] [place] [address] CBC With Platelet and Differ entialon 10-08-2022 Basophils (Bld) [#/Vol] 0.0 10*3/uL Normal 0.0-0.2 Comment on above: Performed By: #### C [facility] #### [address] [place] [address] Basophils/100 WBC (Bld) 0.5 % Normal Comment on above: Performed By: #### C [facility] #### [address] [place] [address] Eosinophils (Bld) [#/Vol] 0.0 10*3/uL Normal 0.0-0.7 Comment on above: Performed By: #### C [facility] #### [address] [place] [address] Eosinophils/100 WBC (Bld) 0.5 % Normal Comment on above: Performed By: #### C [facility] #### [address] [place] [address] Erythrocyte distribution width (RBC) [Ratio] 13.8 % Normal 11.5-14.5 Comment on above: Performed By: #### C [facility] #### [address] [place] [address] Hematocrit (Bld) [Volume fraction] 39.4 % Normal 37.0-47.0 Comment on above: Performed By: #### C [facility] #### [address] [place] [address] Hemoglobin (Bld) [Mass/Vol] 13.2 g/dL Normal 12.0-16.0 Comment on above: Performed By: #### C [facility] #### [address] [place] [address] Lymphocytes (Bld) [#/Vol] 1.4 10*3/uL Normal 1.0-4.8 Comment on above: Performed By: #### C [facility] #### [address] [place] [address] Lymphocytes/100 WBC (Bld) 19.2 % Normal Comment on above: Performed By: #### C [facility] #### [address] [place] [address] MCH (RBC) [Entitic mass] 29.2 pg Normal 27.0-31.3 Comment on above: Performed By: #### C [facility] #### [address] [place] [address] MCHC 33.6 % Normal 33.0-37.0 Comment on above: Performed By: #### C [facility] #### [address] [place] [address] MCV (RBC) [Entitic vol] 87.1 fL Normal 79.4-94.8 Comment on above: Performed By: #### C [facility] #### [address] [place] [address] Monocytes (Bld) [#/Vol] 0.8 10*3/uL Normal 0.2-0.8 Comment on above: Performed By: #### C [facility] #### [address] [place] [address] Monocytes/100 WBC (Bld) 10.8 % Normal Comment on above: Performed By: #### C [facility] #### [address] [place] [address] Neutrophils (Bld) [#/Vol] 5.0 10*3/uL Normal 1.4-6.5 Comment on above: Performed By: #### C [facility] #### [address] [place] [address] Neutrophils/100 WBC (Bld) 69.0 % Normal Comment on above: Performed By: #### C [facility] #### [address] [place] [address] Platelets (Bld) [#/Vol] 291 10*3/uL Normal 130-400 Comment on above: Performed By: #### C [facility] #### [address] [place] [address] RBC (Bld) [#/Vol] 4.53 10*6/uL Normal 4.20-5.40 Comment on above: Performed By: #### C [facility] #### [address] [place] [address] WBC (Bld) [#/Vol] 7.2 10*3/uL Normal 4.8-10.8 Comment on above: Performed By: #### C [facility] #### [address] [place] [address] Comprehensive Metabolic Pane adriano 10-08-2022 Albumin [Mass/Vol] 5.0 g/dL Critically high 3.5-4.6 M [facility] Comment on above: Order Comment: CALL [facility] tel. [phone], Chemistry, POTASSIUM results called to and read back by IRA PECK, 10/08/2022 10:40, by JOSÉ MIGUEL Performed By: #### C MP #### [address] [place] [address] ALP [Catalytic activity/Vol] 72 U/L Normal 40-130 Comment on above: Order Comment: CALL [facility] tel. [phone], Chemistry, POTASSIUM results called to and read back by IRA PECK, 10/08/2022 10:40, by JOSÉ MIGUEL Performed By: #### C MP #### [address] [place] [address] ALT [Catalytic activity/Vol] 18 U/L Normal 0-33 Comment on above: Order Comment: CALL [facility] tel. [phone], Chemistry, POTASSIUM results called to and read back by IRA PECK, 10/08/2022 10:40, by JOSÉ MIGUEL Performed By: #### C MP #### [address] [place] [address] Anion gap [Moles/Vol] 17 mmol/L Critically high 9-15 Comment on above: Order Comment: CALL [facility] tel. [phone], Chemistry, POTASSIUM results called to and read back by IRA PECK, 10/08/2022 10:40, by JOSÉ MIGUEL Performed By: #### C MP #### [address] [place] [address] AST [Catalytic activity/Vol] 20 U/L Normal 0-35 Comment on above: Order Comment: CALL [facility] tel. [phone], Chemistry, POTASSIUM results called to and read back by IRA PECK, 10/08/2022 10:40, by JOSÉ MIGUEL Performed By: #### C MP #### [address] [place] [address] Bilirubin [Mass/Vol] 2.0 mg/dL Critically high 0.2-0.7 Comment on above: Order Comment: CALL [facility] tel. [phone], Chemistry, POTASSIUM results called to and read back by IRA PECK, 10/08/2022 10:40, by JOSÉ MIGUEL Performed By: #### C MP #### [address] [place] [address] Calcium [Mass/Vol] 10.1 mg/dL Critically high 8.5-9.9 M [facility] Comment on above: Order Comment: CALL [facility] tel. [phone], Chemistry, POTASSIUM results called to and read back by IRA PECK, 10/08/2022 10:40, by JOSÉ MIGUEL Performed By: #### C MP #### [address] [place] [address] Chloride [Moles/Vol] 101 mmol/L Normal 95-107 Comment on above: Order Comment: CALL [facility] tel. [phone], Chemistry, POTASSIUM results called to and read back by IRA PECK, 10/08/2022 10:40, by JOSÉ MIGUEL Performed By: #### C MP #### [address] [place] [address] CO2 [Moles/Vol] 22 mmol/L Normal 20-31 Comment on above: Order Comment: CALL [facility] tel. [phone], Chemistry, POTASSIUM results called to and read back by IRA PECK, 10/08/2022 10:40, by JOSÉ MIGUEL Performed By: #### C MP #### [address] [place] [address] Creatinine [Mass/Vol] 0.63 mg/dL Normal 0.50-0.90 Comment on above: Order Comment: CALL [facility] tel. [phone], Chemistry, POTASSIUM results called to and read back by IRA PECK, 10/08/2022 10:40, by JOSÉ MIGUEL Performed By: #### C MP #### [address] [place] [address] GFR >60.0 Normal >60 Comment on above: [facility] Comment: [phone], Chemistry, POTASSIUM results called to and read back by IRA PECK, 10/08/2022 10:40, by JOSÉ MIGUEL Result Comment: Cristy lambc calculator link https://www.kidney.org/professionals/kdoqi/gfr_calculatorped Effective Aug 06, 2022 These results are not intended for use in patients <18 years of age. eGFR results are calculated without a race factor using the 2020 CKD-EPI equation. Careful clinical correlation is recommended, particularly when comparing to results calculated using previous equations. The CKD-EPI equation is less accurate in patients with extremes of muscle mass, extra-renal metabolism of creatinine, excessive creatinine ingestion, or following therapy that affects renal tubular secretion. Performed By: #### C MP #### [address] [place] [address] Globulin (S) [Mass/Vol] 3.0 g/dL Normal 2.3-3.5 Comment on above: Order Comment: [facility] [phone], Chemistry, POTASSIUM results called to and read back by IRA PECK, 10/08/2022 10:40, by JOSÉ MIGUEL Performed By: #### C MP #### [address] [place] [address] Glucose [Mass/Vol] 111 mg/dL Critically high 70-99 M [facility] Comment on above: Order Comment: [facility] [phone], Chemistry, POTASSIUM results called to and read back by IRA PECK, 10/08/2022 10:40, by JOSÉ MIGUEL Performed By: #### C MP #### [address] [place] [address] Potassium [Moles/Vol] 3.0 mmol/L Critically low 3.4-4.9 Comment on above: Order Comment: [facility] [phone], Chemistry, POTASSIUM results called to and read back by IRA PECK, 10/08/2022 10:40, by JOSÉ MIGUEL Performed By: #### C MP #### [address] [place] [address] Protein [Mass/Vol] 8.0 g/dL Normal 6.3-8.0 Comment on above: Order Comment: CALL [facility] tel. [phone], Chemistry, POTASSIUM results called to and read back by IRA PECK, 10/08/2022 10:40, by JOSÉ MIGUEL Performed By: #### C MP #### [address] [place] [address] Sodium [Moles/Vol] 140 mmol/L Normal 135-144 Comment on above: Order Comment: CALL [facility] tel. [phone], Chemistry, POTASSIUM results called to and read back by IRA PECK, 10/08/2022 10:40, by JOSÉ MIGUEL Performed By: #### C MP #### [address] [place] [address] Urea nitrogen [Mass/Vol] 20 mg/dL Normal 6-20 Comment on above: Order Comment: CALL [facility] tel. [phone], Chemistry, POTASSIUM results called to and read back by IRA PECK, 10/08/2022 10:40, by JOSÉ MIGUEL Performed By: #### C MP #### [address] [place] [address] UR Drugs of Abuse Panelon Drug Screen Comment see below Normal Comment on above: Result Comment: This method is a screening test to detect only these drug classes as part of a medical workup. Confirmatory testing by another method should be ordered if clinically indicated. Performed By: #### U DRGS #### [address] [place] [address] UR Amphetamines Screen Positive Abnormal Negative < Comment on above: Performed By: #### U DRGS #### [address] [place] [address] UR Barbiturates Screen Negative Normal Negative < Comment on above: Performed By: #### U DRGS #### [address] [place] [address] UR Benzo Screen Negative Normal Negative < Comment on above: Performed By: #### U DRGS #### [address] [place] [address] UR Cannabinoids Screen Positive Abnormal Negative < Comment on above: Performed By: #### U DRGS #### [address] [place] [address] UR Cocaine Screen Positive Abnormal Negative < Comment on above: Performed By: #### U DRGS #### [address] [place] [address] UR Fentanyl Screen Negative Normal Negative < Comment on above: Performed By: #### U DRGS #### [address] [place] [address] UR Methadone Screen Negative Normal Negative < Comment on above: Performed By: #### U DRGS #### [address] [place] [address] UR Opiates Screen Negative Normal Negative < Comment on above: Performed By: #### U DRGS #### [address] [place] [address] UR Oxycodone Screen Negative Normal Negative < Comment on above: Performed By: #### U DRGS #### [address] [place] [address] UR PCP Screen Negative Normal Negative < Comment on above: Performed By: #### U DRGS #### [address] [place] [address] UR Propoxyphene Screen Negative Normal Negative < Comment on above: Performed By: #### U DRGS #### [address] [place] [address] Urinalysis, reflex to micros copicon 10-08-2022 Bilirubin Ql (U) Negative Normal Negative Comment on above: Performed By: #### U A #### [address] [place] [address] Clarity (U) CLOUDY Abnormal Clear Comment on above: Performed By: #### U A #### [address] [place] [address] Color (U) ORANGE Abnormal Straw/Marion Comment on above: Performed By: #### U A #### [address] [place] [address] Glucose Ql (U) Negative Normal Negative Comment on above: Performed By: #### U A #### [address] [place] [address] Hemoglobin Ql (U) TRACE Abnormal Negative Comment on above: Performed By: #### U A #### [address] [place] [address] Ketones Ql (U) >=80 Abnormal Negative Comment on above: Performed By: #### U A #### [address] [place] [address] Leukocyte esterase Test strip Ql (U) MODERATE Abnormal Negative Comment on above: Performed By: #### U A #### [address] [place] [address] Nitrite Ql (U) Negative Normal Negative Comment on above: Performed By: #### U A #### [address] [place] [address] pH (U) 7.5 [pH] Normal 5.0-9.0 Comment on above: Performed By: #### U A #### [address] [place] [address] Protein Ql (U) 30 mg/dL Abnormal Negative Comment on above: Performed By: #### U A #### [address] [place] [address] Specific gravity (U) [Rel density] 1.030 Normal 1.005-1.03 Comment on above: Performed By: #### U A #### [address] [place] [address] Urobilinogen Qn (U) 1.0 {Vielka'U}/dL Normal < 2.0 Comment on above: Performed By: #### U A #### [address] [place] [address] Urine Microscopicon 10-08-20 22 Epithelial cells LM Ql (Urine sed) 5-10 Normal Comment on above: Performed By: #### U LINDY #### [address] [place] [address] Urine RBC 3-5 Abnormal 0-2 Comment on above: Performed By: #### U LINDY #### [address] [place] [address] Urine Bacteria RARE Abnormal Negative Comment on above: Performed By: #### U LINDY #### [address] [place] [address] Urine Epithelial Cells Auto 20-50 Normal 0-5 Comment on above: Performed By: #### U LINDY #### [address] [place] [address] Urine Hyaline Casts Auto 10-20 Normal 0-5 Comment on above: Performed By: #### U LINDY #### [address] [place] [address] Urine WBC Auto 10-20 Abnormal 0-5 Comment on above: Performed By: #### U LINDY #### [address] [place] [address] DRUG SCREEN,URINEon 09-09-20 22 AMPHETAMINE SCREEN,U Canceled Normal [facility] Comment on above: Order Comment: TEST DRUG SCREEN,URINE WAS CANCELLED, 09/09/2022 01:17 No specimen received/Pt discharged. Result Comment: CUTO FF LEVEL: 500 NG/ML Cross-reactivity has been reported with high concentrations of the following drugs: buproprion, chloroquine, chlorpromazine, ephedrine, mephentermine, fenfluramine, phentermine, phenylpropanolamine, pseudoephedrine, and propranolol. Performed By: #### D RUG3 #### [address] [id number] BARBITURATES SCREEN,U Canceled Normal [facility] Comment on above: Order Comment: TEST DRUG SCREEN,URINE WAS CANCELLED, 09/09/2022 01:17 No specimen received/Pt discharged. Result Comment: CUTO FF LEVEL: 200 NG/ML Performed By: #### D RUG3 #### [address] [id number] BENZODIAZEPINES SCREEN,U Canceled Normal [facility] Comment on above: Order Comment: TEST DRUG SCREEN,URINE WAS CANCELLED, 09/09/2022 01:17 No specimen received/Pt discharged. Result Comment: CUTO FF LEVEL: 200 NG/ML Performed By: #### D RUG3 #### [address] [id number] CANNABINOIDS SCREEN,U Canceled Normal [facility] Comment on above: Order Comment: TEST DRUG SCREEN,URINE WAS CANCELLED, 09/09/2022 01:17 No specimen received/Pt discharged. Result Comment: CUTO FF LEVEL: 50 NG/ML Performed By: #### D RUG3 #### [address] [id number] COCAINE METABOLITE SCREEN,U Canceled Normal [facility] Comment on above: Order Comment: TEST DRUG SCREEN,URINE WAS CANCELLED, 09/09/2022 01:17 No specimen received/Pt discharged. Result Comment: CUTO FF LEVEL: 150 NG/ML Performed By: #### D RUG3 #### [address] [id number] DRUG SCREEN COMMENT Canceled Normal [facility] Comment on above: Order Comment: TEST DRUG SCREEN,URINE WAS CANCELLED, 09/09/2022 01:17 No specimen received/Pt discharged. Result Comment: Drug screen results are presumptive and should not be used to assess compliance with prescribed medication. Contact the performing [facility] laboratory to add-on definitive confirmatory testing if clinically indicated. . Toxicology screening results are reported qualitatively. The concentration must be greater than or equal to the cutoff to be reported as positive. The concentration at which the screening test can detect an individual drug or metabolite varies. The absence of expected drug(s) and/or drug metabolite(s) may indicate non-compliance, inappropriate timing of specimen collection relative to drug administration, poor drug absorption, diluted/adulterated urine, or limitations of testing. For medical purposes only; not valid for forensic use. . Interpretive questions should be directed to the laboratory medical directors. Performed By: #### D RUG3 #### [address] [id number] FENTANYL SCREEN,URINE Canceled Normal [facility] Comment on above: Order Comment: TEST DRUG SCREEN,URINE WAS CANCELLED, 09/09/2022 01:17 No specimen received/Pt discharged. Result Comment: CUTO FF LEVEL: 5 NG/ML Performed By: #### D RUG3 #### [address] [id number] METHADONE SCREEN,U Canceled Normal [facility] Comment on above: Order Comment: TEST DRUG SCREEN,URINE WAS CANCELLED, 09/09/2022 01:17 No specimen received/Pt discharged. Result Comment: CUTO FF LEVEL: 150 NG/ML The metabolite U-gemes-glhqraxqaqiasd (LAAM) is not detected by this method in concentrations that would be found in the urine of patients on LAAM therapy. Performed By: #### D RUG3 #### [address] [id number] OPIATES SCREEN,U Canceled Normal [facility] Comment on above: Order Comment: TEST DRUG SCREEN,URINE WAS CANCELLED, 09/09/2022 01:17 No specimen received/Pt discharged. Result Comment: CUTO FF LEVEL: 300 NG/ML The opiate screen does not detect fentanyl, meperidine, or tramadol. Oxycodone is not consistently detected (refer to Oxycodone Screen, Urine result). Performed By: #### D RUG3 #### [address] [id number] OXYCODONE SCREEN,U Canceled Normal [facility] Comment on above: Order Comment: TEST DRUG SCREEN,URINE WAS CANCELLED, 09/09/2022 01:17 No specimen received/Pt discharged. Result Comment: CUTO FF LEVEL: 100 NG/ML This test will accurately detect both oxycodone and oxymorphone. Performed By: #### D RUG3 #### [address] [id number] PCP SCREEN,U Canceled Normal [facility] Comment on above: Order Comment: TEST DRUG SCREEN,URINE WAS CANCELLED, 09/09/2022 01:17 No specimen received/Pt discharged. Result Comment: CUTO FF LEVEL: 25 NG/ML Cross-reactivity has been reported with dextromethorphan. Performed By: #### D RUG3 #### [address] [id number] URINALYSISon 09-09-2022 Appearance (U) Canceled Normal [facility] Comment on above: Order Comment: TEST URINALYSIS WAS CANCELLED, 09/09/2022 01:17 No specimen received/Pt discharged. Performed By: #### U A #### [address] [id number] ASCORBIC ACID Canceled Normal [facility] Comment on above: Order Comment: TEST URINALYSIS WAS CANCELLED, 09/09/2022 01:17 No specimen received/Pt discharged. Result Comment: Conc entrations > = 20 mg/dL of ascorbic acid can be expected to cause strong interference in the reactions testing for glucose, nitrite and blood. It is recommended to discontinue Vitamin C administration and retest in 10 hours. Performed By: #### U A #### [address] [id number] Bilirubin Ql (U) Canceled Normal [facility] Comment on above: Order Comment: TEST URINALYSIS WAS CANCELLED, 09/09/2022 01:17 No specimen received/Pt discharged. Performed By: #### U A #### [address] [id number] Color (U) Canceled Normal [facility] Comment on above: Order Comment: TEST URINALYSIS WAS CANCELLED, 09/09/2022 01:17 No specimen received/Pt discharged. Performed By: #### U A #### [address] [id number] Glucose Ql (U) Canceled Normal [facility] Comment on above: Order Comment: TEST URINALYSIS WAS CANCELLED, 09/09/2022 01:17 No specimen received/Pt discharged. Performed By: #### U A #### [address] [id number] Hemoglobin Ql (U) Canceled Normal [facility] Comment on above: Order Comment: TEST URINALYSIS WAS CANCELLED, 09/09/2022 01:17 No specimen received/Pt discharged. Performed By: #### U A #### [address] [id number] Ketones Ql (U) Canceled Normal [facility] Comment on above: Order Comment: TEST URINALYSIS WAS CANCELLED, 09/09/2022 01:17 No specimen received/Pt discharged. Performed By: #### U A #### [address] [id number] Leukocyte esterase Test strip Ql (U) Canceled Normal [facility] Comment on above: Order Comment: TEST URINALYSIS WAS CANCELLED, 09/09/2022 01:17 No specimen received/Pt discharged. Performed By: #### U A #### [address] [id number] Nitrite Ql (U) Canceled Normal [facility] Comment on above: Order Comment: TEST URINALYSIS WAS CANCELLED, 09/09/2022 01:17 No specimen received/Pt discharged. Performed By: #### U A #### [address] [id number] pH Canceled Normal [facility] Comment on above: Order Comment: TEST URINALYSIS WAS CANCELLED, 09/09/2022 01:17 No specimen received/Pt discharged. Performed By: #### U A #### [address] [id number] Protein Ql (U) Canceled Normal [facility] Comment on above: Order Comment: TEST URINALYSIS WAS CANCELLED, 09/09/2022 01:17 No specimen received/Pt discharged. Performed By: #### U A #### [address] [id number] Specific gravity (U) [Rel density] Canceled Normal [facility] Comment on above: Order Comment: TEST URINALYSIS WAS CANCELLED, 09/09/2022 01:17 No specimen received/Pt discharged. Performed By: #### U A #### [address] [id number] UROBILINOGEN Canceled Normal [facility] Comment on above: Order Comment: TEST URINALYSIS WAS CANCELLED, 09/09/2022 01:17 No specimen received/Pt discharged. Performed By: #### U A #### [address] [id number] CBC AND DIFFERENTIALon 09-08 % AUTOMATED IMMATURE GRAN 0.3 % Normal 0.0 - 0.9 [facility] Comment on above: Result Comment: [place] Granulocyte Count (IG) includes promyelocytes, myelocytes and metamyelocytes but does not include bands. Percent differential counts (%) should be interpreted in the context of the absolute cell counts (cells/L). Performed By: #### C BCDF #### [address] [id number] Basophils (Bld) [#/Vol] 0.05 10*3/uL Normal 0.00 - 0.10 [facility] Comment on above: Performed By: #### C BCDF #### [address] [id number] Basophils/100 WBC (Bld) 0.7 % Normal 0.0 - 2.0 [facility] Comment on above: Performed By: #### C BCDF #### [address] [id number] Eosinophils (Bld) [#/Vol] 0.01 10*3/uL Normal 0.00 - 0.70 [facility] Comment on above: Performed By: #### C BCDF #### [address] [id number] Eosinophils/100 WBC (Bld) 0.1 % Normal 0.0 - 6.0 [facility] Comment on above: Performed By: #### C BCDF #### [address] [id number] Erythrocyte distribution width (RBC) [Ratio] 12.9 % Normal 11.5 - 14.5 [facility] Comment on above: Performed By: #### C BCDF #### [address] [id number] Hematocrit (Bld) [Volume fraction] 34.5 % Low 36.0 - 46.0 [facility] Comment on above: Performed By: #### C BCDF #### [address] [id number] Hemoglobin (Bld) [Mass/Vol] 11.6 g/dL Low 12.0 - 16.0 [facility] Comment on above: Performed By: #### C BCDF #### [address] [id number] Lymphocytes (Bld) [#/Vol] 1.68 10*3/uL Normal 1.20 - 4.80 [facility] Comment on above: Performed By: #### C BCDF #### [address] [id number] Lymphocytes/100 WBC (Bld) 23.1 % Normal 13.0 - 44.0 [facility] Comment on above: Performed By: #### C BCDF #### [address] [id number] MCHC (RBC) [Mass/Vol] 33.6 g/dL Normal 32.0 - 36.0 [facility] Comment on above: Performed By: #### C BCDF #### [address] [id number] MCV (RBC) [Entitic vol] 86 fL Normal 80 - 100 [facility] Comment on above: Performed By: #### C BCDF #### [address] [id number] Monocytes (Bld) [#/Vol] 0.82 10*3/uL Normal 0.10 - 1.00 [facility] Comment on above: Performed By: #### C BCDF #### [address] [id number] Monocytes/100 WBC (Bld) 11.3 % Normal 2.0 - 10.0 [facility] Comment on above: Performed By: #### C BCDF #### [address] [id number] Neutrophils (Bld) [#/Vol] 4.68 10*3/uL Normal 1.20 - 7.70 [facility] Comment on above: Performed By: #### C BCDF #### [address] [id number] Neutrophils/100 WBC (Bld) 64.5 % Normal 40.0 - 80.0 [facility] Comment on above: Performed By: #### C BCDF #### [address] [id number] Platelets (Bld) [#/Vol] 267 10*3/uL Normal 150 - 450 [facility] Comment on above: Performed By: #### C BCDF #### [address] [id number] RBC 3.99 x10E12/L Low 4.00 - 5.20 [facility] Comment on above: Performed By: #### C BCDF #### [address] [id number] WBC (Bld) [#/Vol] 7.3 10*3/uL Normal 4.4 - 11.3 [facility] Comment on above: Performed By: #### C BCDF #### [address] [id number] COMPREHENSIVE PANELon 2021 Albumin [Mass/Vol] 4.6 g/dL Normal 3.4 - 5.0 [facility] Comment on above: Performed By: #### U A #### [address] [id number] ALP [Catalytic activity/Vol] 44 U/L Normal 33 - 110 [facility] Comment on above: Performed By: #### U A #### [address] [id number] ALT [Catalytic activity/Vol] 14 U/L Normal 7 - 45 [facility] Comment on above: Result Comment: Carrie ents treated with Sulfasalazine may generate falsely decreased results for ALT. Performed By: #### U A #### [address] [id number] Anion gap [Moles/Vol] 14 mmol/L Normal 10 - 20 [facility] Comment on above: Performed By: #### U A #### [address] [id number] AST [Catalytic activity/Vol] 19 U/L Normal 9 - 39 [facility] Comment on above: Performed By: #### U A #### [address] [id number] Bilirubin [Mass/Vol] 0.9 mg/dL Normal 0.0 - 1.2 [facility] Comment on above: Performed By: #### U A #### [address] [id number] Calcium [Mass/Vol] 9.3 mg/dL Normal 8.6 - 10.3 [facility] Comment on above: Performed By: #### U A #### [address] [id number] Chloride [Moles/Vol] 101 mmol/L Normal 98 - 107 [facility] Comment on above: Performed By: #### U A #### [address] [id number] Creatinine [Mass/Vol] 0.67 mg/dL Normal 0.50 - 1.05 [facility] Comment on above: Performed By: #### U A #### [address] [id number] eGFR FEMALE >90 Normal >90 [facility] Comment on above: Result Comment: CALC ULATIONS OF ESTIMATED GFR ARE PERFORMED USING THE 2020 CKD-EPI STUDY REFIT EQUATION WITHOUT THE RACE VARIABLE FOR THE IDMS-TRACEABLE CREATININE METHODS. https://jasn.asnjournals.org/content//ASN.949401143 8 Performed By: #### U A #### [address] [id number] Glucose [Mass/Vol] 95 mg/dL Normal 74 - 99 [facility] Comment on above: Performed By: #### U A #### [address] [id number] HCO3 (Bld) [Moles/Vol] 25 mmol/L Normal 21 - 32 [facility] Comment on above: Performed By: #### U A #### [address] [id number] Potassium [Moles/Vol] 3.2 mmol/L Low 3.5 - 5.3 [facility] Comment on above: Performed By: #### U A #### [address] [id number] Protein [Mass/Vol] 7.4 g/dL Normal 6.4 - 8.2 [facility] Comment on above: Performed By: #### U A #### [address] [id number] Sodium [Moles/Vol] 137 mmol/L Normal 136 - 145 [facility] Comment on above: Performed By: #### U A #### [address] [id number] Urea nitrogen [Mass/Vol] 14 mg/dL Normal 6 - 23 [facility] Comment on above: Performed By: #### U A #### [address] [id number] HCG,BETA-QUANTITATIVEon HCG,BETA-QUANTITAT ENZO <2 Normal [facility] Comment on above: Result Comment: . Total HCG measurement is performed using the Per[employer] Sinton Access Immunoassay which detects intact HCG and free beta HCG subunit. . This test is not indicated for use as a tumor marker. HCG testing is performed using a different test methodology at [facility] than other [facility]. Direct result comparison should only be made within the same method. REF VALUES NON FEMALE <5 MALES <5 Performed By: #### U A #### [address] [id number] Provider Note - ED v3on Provider Note - ED v3 Provider Note: Chart Review: ED NOTES ED NOTES: HPI Patient presenting for an overdose of an unknown medication. Patient indicated to triage staff that she had snorted what she was told was a PERC 30. Patient subsequently went unconscious and required Narcan via her friend. Patient then presented to the emergency department. Patient is anxious and agitated. Intermittently answering questions. Review of Systems : Limited due to patient not answering questions. Physical Exam Vital Signs: Listed on the chart. Reviewed. Medications: As listed on the chart Allergies: As listed on the chart PMedHx: Limited PSxHx: Limited FamHx: Limited PSH: Opioid use Physical Exam Appearance: Awake and agitated Skin: No rash or lesions, warm and dry Eyes: Pupils equal and reactive, pupils dilated bilaterally. EOMI ENT: Mucous membranes moist dentition without lesions. Pharynx clear, uvula midline. Neck: Supple, no meningeal signs. Pulmonary: CTA bilaterally with good air movement Cardiac: Normal rate and regular rhythm. No obvious murmur. Radial and DP Pulses equal BL Abdomen: Soft and nontender, nondistended, no mass. Genitourinary: No flank tenderness. Musculoskeletal: No signs of trauma, strong pulses. No tenderness along the venous system. Neurological: Moves all extremities. Not cooperative with exam Psychiatric: Anxious, tearful EKG interpretation: Sinus rhythm Medical Decision Making: Reevaluated patient she is now awake and alert and oriented x4. Patient recalls snorting a PERC 30 earlier this evening. I discussed with the patient this is likely fentanyl. Patient states she is aware that most of them are fentanyl. Patient notes she was not doing this in an attempt to harm her self. Patient does not wish to start Suboxone at this time. Narcan prescription provided. Patient agrees to return to the ED if having symptoms of wanting to hurt her self, lethargy, or other concerns. Disclaimer: This note was dictated by speech recognition. Minor errors in community educator may be present. Please call if questions. HISTORY OF PRESENTING ILLNESS JULIETTE is a 27 year old Female and was seen by me at 08-Sep-2022 15:26 for a chief complaint of overdose (friends gave 2mg of Narcan. pt states I took a percocet 30. pt crying out I just don't feel right. )(1). Triage Information: Most recent Vital Sign Value Date Temp (F): 98.2 09-08-2022 15:31 Temp (C): 36.8 09-08-2022 15:31 Heart Rate (beats/min): 68 09-08-2022 15:31 Respirations (breaths/min): 24 09-08-2022 15:31 SpO2 (%): 100 09-08-2022 15:31 BP Systolic (mm Hg): 134 09-08-2022 15:31 BP Diastolic (mm Hg): 79 09-08-2022 15:31 PAST MEDICAL HISTORY ALLERGIES/INTOLERANCES: No Known Allergies HEALTH HISTORY: No documented data. OUTPATIENT MEDICATIONS: Home Medications Review Status for Reconciliation: Not Done Med Status: Patient Currently Takes Medications Drug Name: FLUoxetine 20 mg oral tablet Instructions: 1 tab(s) orally once a day Drug Name: Colace 100 mg oral capsule Instructions: 1 cap(s) orally 2 times a day Drug Name: gabapentin 600 mg oral tablet Instructions: 1 tab(s) orally every 12 hours Drug Name: Anaprox-DS 550 mg oral tablet Instructions: 1 tab(s) orally 2 times a day Drug Name: Flagyl 500 mg oral tablet Instructions: 1 tab(s) orally 2 times a day x 7 days Drug Name: ondansetron 4 mg oral tablet, disintegrating Instructions: 1 tab(s) orally every 8 hours Drug Name: Macrobid 100 mg oral capsule Instructions: 1 cap(s) orally 2 times a day x 7 days Drug Name: naloxone 4 mg/0.1 mL nasal spray Instructions: 4 milligram(s) intranasally once a day both nostrils one time as needed for lethargy and suspected overdose SIGNIFICANT EVENTS: Clinical Events Description:Surgical Procedure Additional Notes:1. Laparoscopic filshie clip patient;2. ;3. ;4. ;5. Description:Surgical Procedure Additional Notes:1. LABIA MINORA REDUCTION, BILATERAL PERINEOPLASTY, POSTERIOR REPAIR; Past Medical History Description:denies Past Surgical History Description:tubal ligation PROGRESS NOTE EKG Procedure Location: bedside Pre-procedure Verification: see paper form / department EMR Time Out - Final Verification: see paper form / department EMR Post-Procedure Diagnosis: EKG INTERPRETATION: EKG Date/Time: 08-Sep-2022 15:32 Impression: Sinus rhythm, rate 64, normal axis, ST segments normal, T waves normal, nonspecific EKG Prior EK11-Dec-2018 no changes from prior DISPOSITION Diagnosis/Annotation: ED Dx Name:Opioid overdose Code:T40.2X1A Disposition: discharged Type: home CONSULT CRITICAL CARE TIME Is this a critically ill patient: no Electronic Signatures: Kirk Roldan) (Signed 09-Sep-2022 22:40) Authored: ED Notes, HPI, PMH, Procedure, Clinical Impression, Attestation, C (more content not included)... Normal [facility] Risk Screen - Adult Emergenc yon 09-08-2022 Risk Screen - Adult Emergency Preferred Language: Preferred Language: Preferred Language for Discussing Health Care (patient/designee)Northern Irish Patient Preferred Pharmacy: Patient Preferred Pharmacy Statement: I have reviewed and updated the patient's preferred pharmacy selection for today's visit. Advanced Directives: Advance Directive/DNRno Family Violence Adult: Abuse Screen: Are you or have you been threatened or abused physically, emotionally, or sexually by anyoneno Learning Assessment (Patient): Learning Assessment (Patient): Patient is Able to be Assessed for Learningyes Factors Influencing Readiness to Learnacuteness of illness; interest in learning Factors that Impact Ability to Learnacuteness of illness Devices/Methods Used to Communicatecommunication board Learning Preferencesaudio Cultural Considerationsnone Developmental Considerationsnone Confucianist Considerationsnone Learning Assessment (Other Learner): Learning Assessment (Other Learner): Other learner availableno Pressure Injury/TB/Substance: Pressure Injury: Pressure Injury Present on Admissionno Do you have a coughno Smoking Statusoccasional user (use that is infrequent, sporadic, not on a daily basis) Tobacco Cessation Education (provide if tobacco use within the last 12 mos) patient declined Alcohol Usedenies Admission Risk Screen: Significant IndicatorsComplete CAGE: CAGE: Is this an injured patient at a Trauma Center ([facility]/[place]): no Electronic Signatures: Adonis Melchor (RN) (Signed 08-Sep-2022 20:07) Authored: Preferred Language, Patient Preferred Pharmacy, Advanced Directives, Family Violence Adult, Learning Assessment (Patient), Learning Assessment (Other Learner), Pressure Injury/TB/Substance, Pressure Injury, CAGE Last Updated: 08-Sep-2022 20:07 by Adonis Melchor (NIHARIKA) Normal [facility] Triage - EDon 09-08-2022 Triage - ED Quick Triage: Are You no Have You Given In The Last 6 Weeksno Are You Currently Breastfeedingno Chart Review: ARRIVAL INFORMATION Mode of Arrival: private vehicle CHIEF COMPLAINT JULIETTE HERNÁNDEZ is a Female patient with a chief complaint of overdose (friends gave 2mg of Narcan. pt states I took a percocet 30. pt crying out I just don't feel right. ). Triage Date/Time: 08-Sep-2022 15:31 CALLIE: 3 Vital Signs: Temperature: 98.2F ( 36.8C) taken skin probe Blood Pressure: 134/79 Mean: Heart Rate: 68 Respiratory Rate: 24 Pulse Oximetry: 100% on room air, no respiratory support. Height: 5 feet 6.00 inches. 167.6 CM Weight: 145.5 pounds. Calculated 66.0 kg. (stated) Calculated BMI (kg/m2): 23.496 Calculated BSA (m2) 1.75 Ildefonso Coma Scale: Best Eye Response: (E4) spontaneous Best Motor Response: (M6) obeys commands Best Verbal Response: (V5) oriented Ildefonso Score: 15 Allergies: no Patient has homicidal thoughts: no Risk Screens Suicide Risk Screen In the Past Month: Have you wished you were or wished you could go to sleep and not wake up no In the Past Month: Have you had any actual thoughts of killing yourself no In Your Lifetime: Have you ever done anything, started to do anything, or prepared to do anything to end your life no Carlin Fall Scale Screening Has the patient fallen before (or is the patient in the ED as a result of a fall) has not had a fall Does the patient have an impaired gait does not have impaired gait Is the patient cognitively impaired not cognitively impaired Interventions: Raegan Fall Interventions: LOW INTERVENTIONS: *patient oriented to surroundings and call system, * patient/family falls education completed and documented, *patients fall status communicated during bedside handoff, *whiteboard updated, *mode of toileting discussed with patient, *bed in low position with brakes locked, *call light in reach, * non-skid footwear TRAVEL HISTORY Travel History Coronavirus Screening: no exposure or symptoms Travel Exposure History: NO travel to International locations in the past 30 days PAIN Pain Scale Used: JOHN Past Medical History: Past Medical History Reviewedyes Electronic Signatures: Mechelle Garcia (NIHARIKA) (Signed 08-Sep-2022 15:36) Entered: Risk Screens, Pain, Travel History, Chart Review, Scores, Past Medical History Authored: Quick Triage, Risk Screens, Pain, Travel History, Chart Review, Scores, Past Medical History Last Updated: 08-Sep-2022 15:36 by Mechelle Garcia) [place] [id number] [facility] HERNÁNDEZJULIETTE Freeman ([id number]) 1995 F Date Time Provider Department 10/20/21 JUAN ANTONIO ESQUEDA 4CQ During your visit today, we recorded the following information about you: Beny Pope 10/20/2021 9:39 AM Signed Juliette Hernández called today. : 1995 Allergies: Patient has no known allergies. (home) [phone] (cell) Reason for call: Patient calling asking for an alternative medication of Miconazole Nitrate (MONISTAT 3) 200 mg/5 gram (4 %) cream. Insurance does not cover this for patient. Requesting call back if any issues. Confirmed [facility] Sue as pharmacy Patient last appointment: Visit date not found The patients preferred pharmacy has been captured for this encounter? yes Beny Mcconnell, [employer] 10/20/2021 9:52 AM Signed rx sent for monistat 7 day Allergies As of Date: 10/20/2021 (No Known Allergies) Date Reviewed: 10/16/2021 Reviewed by: Juan Antonio Esqueda PA-C - Fully Assessed Reason for Visit: Medication Problem [65] Order(s):miconazole nitrate (MONISTAT 7) 2 % (100 mg)- 2 % (9 gram) cpfcUse 1 Applicator vaginally once daily for 7 days.Disp: 44 gRfl: 0 Prescriptions as of 10/20/2021 - miconazole nitrate (MONISTAT 7) 2 % (100 mg)- 2 % (9 gram) cpfc Use 1 Applicator vaginally once daily for 7 days. - metroNIDAZOLE (FLAGYL) 500 mg tablet Take 1 tablet by mouth twice daily for 7 days. Do not consume alcohol while on this medication or for 72 hours after - Miconazole Nitrate (MONISTAT 3) 200 mg/5 gram (4 %) crea Use 1 Applicator vaginally once daily for 3 days. - buprenorphine-nalOXone SL (SUBOXONE) 8-2 mg subl DISSOLVE ONE TABLET UNDER THE TONGUE ONCE DAILY. ALLOW TO DISSOLVE SLOWLY WITHOUT CHEWING OR SWALLOWING Meds Comments as of 08/08/2021: 08/08/2021 Prozac 40 mg daily, last dose taken two weeks ago. Izzy Hay RN Problem List As Of Date: 10/20/2021 (None) Prescriptions ordered this encounter Disp Refills Start End MONISTAT 7 2 %(100 MG)-2 %(9 GRAM)V* 44 g 0 10/20/2021 10/27/2021 Route: VAGINAL Sig: Use 1 Applicator vaginally once daily for 7 days. Encounter Status:Closed by TAL MCCONNELL on 10/20/21 Normal [facility] Michael 10-18-20[facility] JULIETTE HERNÁNDEZ ([id number]) 1995 F Date Time Provider Department 10/18/21 JUAN ANTONIO ESQUEDA [facility] During your visit today, we recorded the following information about you: Juan Antonio Esqueda PA-C 10/18/2021 2:42 PM Signed Please let patient know that her testing returned positive for bacterial vaginosis and yeast infection. Please let her know that bacterial vaginosis is not an STI, it is overgrowth of normal vaginal bacteria due to the changes in the pH of the vagina. Patient will need to take Flagyl for the BV, she cannot drink alcohol while on this or for 72 hours after finishing. I have sent topical miconazole to treat the yeast infection as well. Thank you, BENNY Butcher LPN 10/18/2021 4:01 PM Signed Called number listed in chart patient confirmed provider message given all questions answered no further questions at this time. Allergies As of Date: 10/18/2021 (No Known Allergies) Date Reviewed: 10/16/2021 Reviewed by: Juan Antonio Esqueda PA-C - Fully Assessed Reason for Visit: Results [95] Order(s):metroNIDAZOLE (FLAGYL) 500 mg tabletTake 1 tablet by mouth twice daily for 7 days. Do not consume alcohol while on this medication or for 72 hours afterDisp: 14 tabletRfl: 0 Miconazole Nitrate (MONISTAT 3) 200 mg/5 gram (4 %) creaUse 1 Applicator vaginally once daily for 3 days.Disp: 15 gRfl: 0 Prescriptions as of 10/18/2021 - metroNIDAZOLE (FLAGYL) 500 mg tablet Take 1 tablet by mouth twice daily for 7 days. Do not consume alcohol while on this medication or for 72 hours after - Miconazole Nitrate (MONISTAT 3) 200 mg/5 gram (4 %) crea Use 1 Applicator vaginally once daily for 3 days. - buprenorphine-nalOXone SL (SUBOXONE) 8-2 mg subl DISSOLVE ONE TABLET UNDER THE TONGUE ONCE DAILY. ALLOW TO DISSOLVE SLOWLY WITHOUT CHEWING OR SWALLOWING Meds Comments as of 08/08/2021: 08/08/2021 Prozac 40 mg daily, last dose taken two weeks ago. Izzy Hay RN Problem List As Of Date: 10/18/2021 (None) Prescriptions ordered this encounter Disp Refills Start End METRONIDAZOLE 500 MG TABLET 14 t* 0 10/18/2021 10/25/2021 Route: ORAL Sig: Take 1 tablet by mouth twice daily for 7 days. Do not consume alcohol while on this medication or for 72 hours after MONISTAT 3 200 MG/5 GRAM (4 %) VAGIN* 15 g 0 10/18/2021 10/21/2021 Route: VAGINAL Sig: Use 1 Applicator vaginally once daily for 3 days. Encounter Status:Closed by JUAN ANTONIO ESQUEDA on 10/18/21 Normal [facility] Bact Vag Amplificationon Bact Vag Amplification Positive Critically abnormal Negative for bacterial vaginosis [facility] Comment on above: Performed By: #### C VTV, BVAMP #### [facility] [address] [address] CNOVon 10-16-2021 CNOV Office Visit (EXP[facility] ) -- JULIETTE HERNÁNDEZ ([id number]) 1995 F Date Time Provider Department 10/16/21 9:05 AM [facility] During your visit today, we recorded the following information about you: Temperature Pulse Respiration Blood pressure 98 degrees 64/minute 20/minute 117/66 Weight Last Period 70.1 kg 10/09/21 Juan Antonio Esqueda PA-C 10/16/2021 10:24 AM Addendum This note was created using Event[employer]. Subjective Juliette Hernández is a 26 year old female. [facility] VISIT CC: 26 year old female Patient presents with: Urinary Problem: burning urgency odor x 4 days HPI- Juliette is a 26 year old female who presents for evaluation of the above chief complaint It began 4 days ago as dysuria with urgency and frequency and odor. Patient states this feels similar to when she had trichomonas in the past. Dysuria: Yes Hematuria: No Frequency: Yes Urgency: Yes Incontinence: No Suprapubic pressure: Yes Low back pain: No Flank pain: No Hx UTI: Yes Hx Pyelo: No Hx stones: No Vaginal symptoms: yes, states some vaginal irritation and itching. Patient states she recently had unprotected sex with a previous partner who gave her trichomonas in the past. She states this feels similar to when she had trichomonas before. She denies fever, chills, nausea, vomiting, diarrhea, genital lesions or rashes. Patient's last menstrual period was 10/09/2021. No other acute complaints or symptoms at this time. No past medical history on file. PAST SURGICAL HISTORY Procedure Laterality Date - EGD 08/22/16 /Celiac disease ALLERGIES Patient has no known allergies. MEDICATIONS No prescriptions on file. No family history on file. Social History Tobacco Use - Smoking status: Never Smoker - Smokeless tobacco: Not on file Substance Use Topics - Alcohol use: No - Drug use: No Review of Systems Constitutional: Negative for chills and fever. Gastrointestinal: Positive for abdominal pain (Suprapubic pressure). Negative for diarrhea, nausea and vomiting. Genitourinary: Positive for dysuria, frequency and urgency. Negative for decreased urine volume, enuresis, flank pain, genital sores, hematuria, vaginal bleeding, vaginal discharge and vaginal pain. Musculoskeletal: Negative for back pain. Skin: Negative for rash. All other systems reviewed and are negative. Objective BP 117/66 Pulse 64 Temp 36.7 ?C (98 ?F) (Temporal) Resp 20 Wt 70.1 kg (154 lb 9.6 oz) LMP 10/09/2021 SpO2 100% BMI 24.95 kg/m? Physical Exam Vitals reviewed. Exam conducted with a crew truck driver present (Latia Pantoja MA present for exam). Constitutional: General: She is not in acute distress. Appearance: Normal appearance. She is well-developed, well-groomed and normal weight. She is not ill-appearing or toxic-appearing. HENT: Head: Normocephalic. Cardiovascular: Rate and Rhythm: Normal rate and regular rhythm. Heart sounds: Normal heart sounds. Pulmonary: Effort: Pulmonary effort is normal. Breath sounds: Normal breath sounds and air entry. Abdominal: General: Abdomen is flat. Bowel sounds are normal. Palpations: Abdomen is soft. Tenderness: There is no abdominal tenderness. There is no right CVA tenderness, left CVA tenderness, guarding or rebound. Genitourinary: General: Normal vulva. Exam position: Supine. Labia: Right: No rash, tenderness, lesion or injury. Left: No rash, tenderness, lesion or injury. Vagina: No signs of injury and foreign body. Vaginal discharge (thin clear to yan) present. No erythema, tenderness, bleeding, lesions or prolapsed vaginal lewis. Cervix: No lesion or erythema. Comments: Exam done with patient consent Skin: General: Skin is warm and dry. Findings: No rash. Neurological: Mental Status: She is alert and oriented to person, place, and time. Psychiatric: Mood and Affect: Mood normal. Behavior: Behavior is cooperative. Results for orders placed or performed in visit on 10/16/21 UA DIP, URINE (POC) Result Value Ref Range GLUCOSE UA (POCT) Negative Negative mg/dL BILIRUBIN UA (POCT) Negative Negative KETONE UA (POCT) Negative Negative mg/dL SPECIFIC GRAVITY UA (POCT) 1.025 1.005 - 1.030 HEMOGLOBIN/BLOOD UA (POCT) Trace-intact (A) Negative PH UA (POCT) 7.0 4.5 - 8.0 PROTEIN UA (POCT) Negative Negative mg/dL UROBILINOGEN UA (POCT) 0.2 Normal E.U./dL NITRITE UA (POCT) Negative Negative LEUKOCYTES UA (POCT) Negative Negative COLOR UA (POCT) Other CLARITY UA (POCT) Slightly Cloudy HCG QUAL UR B/O Result Value Ref Range , Urine neg neg - pos Quality Check Yes yes/no Assessment and Plan ASSESSMENT/PLAN: 1. Screening for STD (sexually transmitted disease) - ICD9: V74.5, ICD10: Z11.3 (primary diagnosis) - HCG QUAL UR B/O - GC/CHLAMYDIA DNA DET - SULTANA / TRICHOMONAS AMPLIFICATION - BACTERIAL VAGINOSIS AMPL (more content not included)... Normal [facility] Sultana Trich Amplon 021 Sultana glabrata RNA Negative Normal Negative [facility] Comment on above: Performed By: #### C VTV, BVAMP #### [place] [phone] Sultana sp group RNA Positive Critically abnormal Negative [facility] Comment on above: Performed By: #### C VTV, BVAMP #### [place] [phone] Trichomonas RNA Negative Normal [facility] Comment on above: Performed By: #### C VTV, BVAMP #### [place] [address] GC/Chlamydia Amplifon 2020 Chlamydia Amplif Negative Normal [facility] Comment on above: Performed By: #### G CCT #### [place] [phone] GC Amplification Negative Normal [facility] Comment on above: Performed By: #### G CCT #### [place] [address] GC/Chlam Amp Source Cervix Normal [facility] Comment on above: Performed By: #### G CCT #### [facility] [address] [address] Urine Cultureon 10-16-2021 Bacteria identified Cx Nom (U) Sp. Request/Comment: - Specimen received in preservative Culture Result - <10,000 CFU/ml Normal urogenital brenda Normal [facility] Comment on above: Performed By: #### U RCUL #### [facility] [address] [id number] CNPNon 07-17-2021 CNPN Telephone ([facility]) -- JULIETTE HERNÁNDEZ ([id number]) 1995 F Date Time Provider Department 07/17/21 [facility] During your visit today, we recorded the following information about you: Reta Chavez PA-C 07/17/2021 8:27 AM Signed Called and spoke to mom. Told her she is + and that her children, all 3, are positive for COVID-19 as well. She understood and understood the isolation and quarantine instructions. Reta Chavez PA-C July 17, 2021 8:27 AM Allergies As of Date: 07/17/2021 (No Known Allergies) Date Reviewed: 07/15/2021 Reviewed by: Lory Sánchez Ma - Fully Assessed Reason for Visit: Results [95] Problem List As Of Date: 07/17/2021 (None) Encounter Status:Closed by RETA CHAVEZ on 07/17/21 [facility] CNCOon 07-15-2021 CNCO Letter Text [facility] CNOVon 07-15-2021 CNOV Office Visit ([facility] ) -- JULIETTE HERNÁNDEZ ([id number]) 1995 F Date Time Provider Department 07/15/21 1:15 PM RUBINA LALA [facility] During your visit today, we recorded the following information about you: Temperature Pulse Blood pressure Last Period 97.7 degrees 71/minute 117/75 05/07/21 Rubina Lala PA-C 07/15/2021 1:58 PM Signed This note was created using [employer]. Subjective Juliette Hernández is a 26 year old female. Covid exp over last 2 days, rhinorrhea, sore throat. Fatigue, HERNANDEZ. Fatigue, no period since May, has tubal. Patient comes in complaining of a Covid exposure about 2 days ago. She states that she is having a sore throat, rhinorrhea, fatigue and headaches since about July 11. She just found out a few people at work have tested positive for Covid. He denies any chest pain, shortness of breath, dizziness or lightheadedness. She also complains of not having a menstrual period since May. She has a tubal ligation. She states that she has been very fatigued and wants to have a test. Denies any vaginal bleeding or abnormal discharge, denies any abdominal pain flank pain nausea or vomiting. Review of Systems Constitutional: Positive for fatigue. Negative for activity change, appetite change, chills, fever and unexpected weight change. HENT: Positive for postnasal drip, rhinorrhea and sore throat. Negative for congestion, ear discharge, ear pain, sinus pressure, sinus pain, sneezing, trouble swallowing and voice change. Respiratory: Positive for cough. Negative for shortness of breath, wheezing and stridor. Cardiovascular: Negative for chest pain and palpitations. Gastrointestinal: Negative for abdominal pain, diarrhea, nausea and vomiting. Genitourinary: Positive for menstrual problem. Negative for dysuria, flank pain, hematuria, vaginal bleeding, vaginal discharge and vaginal pain. Musculoskeletal: Negative for arthralgias and myalgias. Skin: Negative for color change, pallor, rash and wound. Neurological: Positive for headaches. Negative for dizziness, tremors, syncope, weakness and light-headedness. Objective BP 117/75 Pulse 71 Temp 36.5 ?C (97.7 ?F) (Temporal) LMP 05/07/2021 (Within Weeks) SpO2 100% Physical Exam Vitals and nursing note reviewed. Constitutional: General: She is not in acute distress. Appearance: She is well-developed. She is not diaphoretic. HENT: Head: Normocephalic and atraumatic. Nose: Nose normal. Mouth/Throat: Pharynx: No oropharyngeal exudate or posterior oropharyngeal erythema. Eyes: General: No scleral icterus. Right eye: No discharge. Left eye: No discharge. Conjunctiva/sclera: Conjunctivae normal. Pupils: Pupils are equal, round, and reactive to light. Neck: Trachea: No tracheal deviation. Cardiovascular: Rate and Rhythm: Normal rate and regular rhythm. Heart sounds: Normal heart sounds. No murmur heard. No friction rub. No gallop. Comments: Radial pulse 2+ and equal Pulmonary: Effort: Pulmonary effort is normal. No respiratory distress. Breath sounds: Normal breath sounds. No wheezing. Chest: Chest wall: No tenderness. Abdominal: General: Bowel sounds are normal. There is no distension. Palpations: Abdomen is soft. There is no mass. Tenderness: There is no abdominal tenderness. There is no guarding or rebound. Hernia: No hernia is present. Musculoskeletal: General: No tenderness or deformity. Normal range of motion. Cervical back: Normal range of motion and neck supple. Lymphadenopathy: Cervical: No cervical adenopathy. Skin: General: Skin is warm and dry. Coloration: Skin is not pale. Findings: No erythema or rash. Neurological: Mental Status: She is alert and oriented to person, place, and time. Comments: No facial droop. No focal motor deficits of b/l upper and lower extremities. No tremor. Normal speech without slurring. Psychiatric: Mood and Affect: Mood normal. Behavior: Behavior normal. Assessment and Plan 1. Irregular menses -LMP May, fatigued, requested test - HCG QUAL UR B/O (-) negative 2. Close exposure to COVID-19 virus -HERNANDEZ, ST, congestion, fatigue. Known exposure 2 days ago -HDS, well hydrated, nontoxic. VSS. -I feel appropriate for continued outpatient management with strict precautions. -Discussed alternating APAP/Motrin and pushing po fluids -Discussed if change in condition/worsening, high fevers, SOB, CP, dizzy, LH, feeling like you are going to pass out, decreased po intake, decreased urination or any concern of worsening condition to present promptly to the ER -Was given verbal and written information on home isolation while awaiting COVID results. - 2019 CORONAVIRUS Rubina Lala PA-C 07/15/2021 1:48 PM Signed Beginning Home Isolation Isolation is used to separate people infected with SARS-CoV-2, the virus that causes COVID-19 (more content not included)... Normal [facility] Coronavirus 2019on 1 SARS-CoV-2 (COVID-19) RNA JOSE R+probe Ql (Unsp spec) UPPER RESPIRATORY TRACT SWAB Normal [facility] Comment on above: Performed By: #### C OVID #### [place] [address] [place] [address] SARS-CoV-2 (COVID-19) RNA JOSE R+probe Ql (Unsp spec) Positive for COVID19 (SARS CoV2) by RT-PCR or equivalent method. Critically abnormal Negative for COVID19 (SARS CoV2) by RT-PCR or equivalent method. [facility] Comment on above: Result Comment: This test was developed and its performance characteristics determined by [facility]'s [facility] [place]. This test has been authorized by FDA under an Emergency Use Authorization (EUA). This test has been validated in accordance with the FDA's Guidance Document Policy for Diagnostics Testing in Laboratories Certified to Perform High Complexity Testing under CLIA prior to Emergency use Authorization for Coronavirus Disease 2019 during the Public Health Emergency issued on January 02, 2020. Test performed by [facility], [facility] [place], [facility] [place], [place] [address]. Performed By: #### C OVID #### [place] [address] [place] [place] [address] Cult, Urineon 06-02-2020 Bacteria identified Cx Nom (U) PATIENT: JULIETTE HERNÁNDEZ LOCATION: [facility] [place] BILL#: [id number] : [birth year] AGE: SEX: F ORDERED BY: RADHA WSIDOM: URINE COLLECTED: 06/02/20 12:48ANTIBIOTICS AT MISSY.: RECEIVED : 06/03/20 00:40SITE: Clean Catch/Voided R E S U L T S URINE CULTURE,BACTERIAL FINAL 06/03/20 23:49 NO SIGNIFICANT GROWTH. JP-BECA-Dsnt [facility] [employer] Work Phone: GC + Chlamydia By Amplified Detectionon 06-02-2020 C. trachomatis rRNA JOSE R+probe Ql (Unsp spec) Positive Abnormal Negative WA-EAYR-Mfiv [facility] [employer] Work Phone: N. gonorrhoeae rRNA JOSE R+probe Ql (Unsp spec) Positive Abnormal Negative ZC-ACZA-Ifmh [address] [employer] Work Phone: Comment on above: SOURCE: Urine IO UA (automated w/o microsc opy)on 06-02-2020 Protein (U) [Mass/Vol] Negative PH-QMCU-Whnc [facility] [employer] Work Phone: IO UA (automated w/o microscopy) Negative TA-EDFN-Goip [address] [employer] Work Phone: IO UA (automated w/o microscopy) Hemolyzed trace DK-UIXR-Niwn [address] [employer] Work Phone: IO UA (automated w/o microscopy) 7.5 MQ-YKLV-Wkmx [facility] [employer] Work Phone: IO UA (automated w/o microscopy) Yellow YW-KZDB-Vpns [address] [employer] Work Phone: IO UA (automated w/o microscopy) Normal WA-ROTV-Stwr [facility] [employer] Work Phone: IO UA (automated w/o microscopy) 1.015 PY-KOCR-Tbmq [facility] [employer] Work Phone: IO UA (automated w/o microscopy) Clear TM-SWBM-Wbek [address] [employer] Work Phone: Otheron 06-02-2020 Negative Negative FQ-MXYB-Lxpf [address] [employer] Work Phone: Comment on above: SOURCE: Urine CBCon 01-20-2019 Erythrocyte distribution width Ratio (RBC) 13.9 % Normal 12.0-15.4 [facility] Comment on above: Performed By: #### U ARFX #### [facility] [address] [place] [address] Hematocrit Volume Fraction (Bld) 27.4 % Low 36.5-46.6 [facility] Comment on above: Performed By: #### U ARFX #### [facility] [address] [place] [address] Hemoglobin mass conc (Bld) 9.0 g/dL Low 11.8-15.3 [facility] Comment on above: Performed By: #### U ARFX #### [facility] [address] [place] [address] MCH Entitic mass (RBC) 30.1 pg Normal 27.5-33.0 [facility] Comment on above: Performed By: #### U ARFX #### [facility] [address] [place] [address] MCHC mass conc (RBC) 32.8 g/dL Normal 30.1-35.0 [facility] Comment on above: Performed By: #### U ARFX #### [facility] [address] [place] [address] MCV Entitic volume (RBC) 91.6 fL Normal 85.4-100.0 [facility] Comment on above: Performed By: #### U ARFX #### [facility] [address] [place] [address] NRBC Absolute 0.00 10*3/uL Normal [facility] Comment on above: Performed By: #### U ARFX #### [facility] [address] [place] [address] NRBC Automated 0.0 /100{WBCs} Normal [facility] Comment on above: Performed By: #### U ARFX #### [facility] [address] [place] [address] Platelet mean volume Entitic volume (Bld) 10.4 fL Normal 9.9-12.1 [facility] Comment on above: Performed By: #### U ARFX #### [facility] [address] [place] [address] Platelets #/vol (Bld) 181 10*3/uL Normal 155-404 [facility] Comment on above: Performed By: #### U ARFX #### [facility] [address] [place] [address] RBC #/vol (Bld) 2.99 10*6/uL Low 3.85-5.10 [facility] Comment on above: Performed By: #### U ARFX #### [facility] [address] [place] [address] RDW SD 46.8 fL Normal 39.3-48.6 [facility] Comment on above: Performed By: #### U ARFX #### [facility] [address] [place] [address] WBC #/vol (Bld) 11.7 10*3/uL High 4.4-9.9 [facility] Comment on above: Performed By: #### U ARFX #### [facility] [address] [place] [address] CBC With Differentialon - Basophils #/vol (Bld) 0.04 10*3/uL Normal 0.01-0.07 [facility] Comment on above: Performed By: #### U ARFX #### [facility] [address] [place] [address] Basophils/100 WBC (Bld) 0.4 % Normal 0.1-1.2 [facility] Comment on above: Performed By: #### U ARFX #### [facility] [address] [place] [address] Eosinophils #/vol (Bld) 0.03 10*3/uL Low 0.04-0.50 [facility] Comment on above: Performed By: #### U ARFX #### [facility] [address] [place] [address] Eosinophils/100 WBC (Bld) 0.3 % Normal 0.0-8.1 [facility] Comment on above: Performed By: #### U ARFX #### [facility] [address] [place] [address] Erythrocyte distribution width Ratio (RBC) 14.0 % Normal 12.0-15.4 [facility] Comment on above: Performed By: #### U ARFX #### [facility] [address] [place] [address] Hematocrit Volume Fraction (Bld) 32.8 % Low 36.5-46.6 [facility] Comment on above: Performed By: #### U ARFX #### [facility] [address] [place] [address] Hemoglobin mass conc (Bld) 10.8 g/dL Low 11.8-15.3 [facility] Comment on above: Performed By: #### U ARFX #### [facility] [address] [place] [address] Imm Grans Absolute 0.04 10*3/uL Normal 0.00-0.21 [facility] Comment on above: Performed By: #### U ARFX #### [facility] [address] [place] [address] Immature granulocytes #/vol (Bld) 0.4 % Normal [facility] Comment on above: Performed By: #### U ARFX #### [facility] [address] [place] [address] Lymphocytes #/vol (Bld) 1.96 10*3/uL Normal 0.40-2.84 [facility] Comment on above: Performed By: #### U ARFX #### [facility] [address] [place] [address] Lymphocytes/100 WBC (Bld) 19.6 % Normal 15.7-50.5 [facility] Comment on above: Performed By: #### U ARFX #### [facility] [address] [place] [address] MCH Entitic mass (RBC) 30.2 pg Normal 27.5-33.0 [facility] Comment on above: Performed By: #### U ARFX #### [facility] [address] [place] [address] MCHC mass conc (RBC) 32.9 g/dL Normal 30.1-35.0 [facility] Comment on above: Performed By: #### U ARFX #### [facility] [address] [place] [address] MCV Entitic volume (RBC) 91.6 fL Normal 85.4-100.0 [facility] Comment on above: Performed By: #### U ARFX #### [facility] [address] [place] [address] Monocytes #/vol (Bld) 1.00 10*3/uL High 0.25-0.83 [facility] Comment on above: Performed By: #### U ARFX #### [facility] [address] [place] [address] Monocytes/100 WBC (Bld) 10.0 % Normal 4.8-12.7 [facility] Comment on above: Performed By: #### U ARFX #### [facility] [address] [place] [address] Neutrophils Absolute 6.91 10*3/uL High 1.95-6.85 [facility] Comment on above: Performed By: #### U ARFX #### [facility] [address] [place] [address] Neutrophils/100 WBC (Bld) 69.3 % Normal 36.8-73.2 [facility] Comment on above: Performed By: #### U ARFX #### [facility] [address] [place] [address] NRBC Absolute 0.00 10*3/uL Normal [facility] Comment on above: Performed By: #### U ARFX #### [facility] [address] [place] [address] NRBC Automated 0.0 /100{WBCs} Normal [facility] Comment on above: Performed By: #### U ARFX #### [facility] [address] [place] [address] Platelet mean volume Entitic volume (Bld) 11.0 fL Normal 9.9-12.1 [facility] Comment on above: Performed By: #### U ARFX #### [facility] [address] [place] [address] Platelets #/vol (Bld) 186 10*3/uL Normal 155-404 [facility] Comment on above: Performed By: #### U ARFX #### [facility] [address] [place] [address] RBC #/vol (Bld) 3.58 10*6/uL Low 3.85-5.10 [facility] Comment on above: Performed By: #### U ARFX #### [facility] [address] [place] [address] RDW SD 46.7 fL Normal 39.3-48.6 [facility] Comment on above: Performed By: #### U ARFX #### [facility] [address] [place] [address] WBC #/vol (Bld) 10.0 10*3/uL High 4.4-9.9 [facility] Comment on above: Performed By: #### U ARFX #### [facility] [address] [place] [address] Drugs of Abuse, Urine(7)on 0 - Amphetamines/Metam phetamines, Urine Not Detected Normal [facility] Comment on above: Performed By: #### U ARFX #### [facility] [address] [place] [address] Barbiturates, Urine Not Detected Normal [facility] Comment on above: Performed By: #### U ARFX #### [facility] [address] [place] [address] Benzodiazepines, Urine Not Detected Normal [facility] Comment on above: Performed By: #### U ARFX #### [facility] [address] [place] [address] Cannabinoids, Urine Not Detected Normal [facility] Comment on above: Performed By: #### U ARFX #### [facility] [address] [place] [address] Cocaine, Urine Not Detected Normal [facility] Comment on above: Performed By: #### U ARFX #### [facility] [address] [place] [address] Methadone, Urine Not Detected Normal [facility] Comment on above: Performed By: #### U ARFX #### [facility] [address] [place] [address] Opiates, Urine Not Detected Normal [facility] Comment on above: Performed By: #### U ARFX #### [facility] [address] [place] [address] PCP, Urine Not Detected Normal [facility] Comment on above: Result Comment: Urin e toxicology screen results are to be used for medical purposes only. It is recommended that any result reported as Detected be confirmed by a more specific alternative chemical method. Drug Analyzed Cutoff Concentration(ng/mL) Barbiturates 200 Benzodiazepines 200 Cocaine 150 Opiates 300 Amphetamines 500 Cannabinoids 50 Methadone 150 PCP 25 Performed By: #### U ARFX #### [facility] [address] [place] [address] Pathology (EM)on 01-19-2019 Pathology (EM) Copy To: KEYSHA [place] FINAL SURGICAL PATHOLOGY REPORT [id number] FINAL DIAGNOSIS PLACENTA: THIRD TRIMESTER PLACENTA (507 G) TRIVASCULAR UMBILICAL CORD NO EVIDENCE OF CHORIOAMNIONITIS FOCAL PERIVILLOUS FIBRIN DEPOSITION Comment: Abruption is not clearly identified however this is best a clinical diagnosis. CLINICAL HISTORY: HISTORY OF PREVIOUS CHLAMYDIA AND DRUG USE OPERATION: SPONTANEOUS VAGINAL DELIVERY, 20% ABRUPTION OF PLACENTA SPECIMEN(S): (A) PLACENTA, THIRD TRIMESTER Performed at [facility], [address] [place] [address] GROSS DESCRIPTION: Received fresh, labeled with the patient's name and hospital number, is a placenta. Placental membranes are complete. Membrane insertion is circummarginate involving 75% of the circumference. The point of membrane rupture is 5.2 cm from the margin. The umbilical cord is pale yellow, measures 53 cm in length, and inserts into the placenta, 7.2 cm from the margin. On section, the cord has three vessels and measures 1.3 x 0.8 cm. The placenta is discoid in shape, measures 23.5 x 18.5 x 2-2.5 cm and weighs 507 gm. without the cord or membranes. The surface is blue to opaque. Maternal surface is speckled with white calcifications, has adherent thin blood clot and is complete. Cut surface is dark red and spongy. The following gross abnormalities are noted. The surface is slightly opaque. Collar Starcher sections of cord, membranes, and placenta are submitted in five cassettes. TAS Summary of cassettes: A1 - cord A2 - membranes A3 - placental parenchyma, adjacent to umbilical cord insertion A4- placental parenchyma, adherent blood clot A5 - placental parenchyma, focal opaque rubbery area Signed Out by: MELODY MICHAEL M.D. Reported: 01/25/2019 Normal [facility] Comment on above: Performed By: #### U ARFX #### [facility] [address] [place] [address] Type and Screenon 01-19-2019 Group and Rh Positive Normal [facility] Comment on above: Performed By: #### U ARFX #### [facility] [address] [place] [address] Urinalysison 01-19-2019 Amorphous Crystal Occasional Normal None [facility] Comment on above: Performed By: #### U ARFX #### [facility] [address] [place] [address] Appearance Nom (U) Cloudy Normal Clear [facility] Comment on above: Performed By: #### U ARFX #### [facility] [address] [place] [address] Ascorbic Acid Negative Normal Negative [facility] Comment on above: Performed By: #### U ARFX #### [facility] [address] [place] [address] Automated Urine Microscopy Performed Normal [facility] Comment on above: Performed By: #### U ARFX #### [facility] [address] [place] [address] Bacteria LM.HPF #/area (Urine sed) Occasional Normal None [facility] Comment on above: Performed By: #### U ARFX #### [facility] [address] [place] [address] Bilirubin mass conc Negative Normal Negative [facility] Comment on above: Performed By: #### U ARFX #### [facility] [address] [place] [address] Blood Negative Normal Negative [facility] Comment on above: Performed By: #### U ARFX #### [facility] [address] [place] [address] Color Nom (U) Yellow Normal [facility] Comment on above: Performed By: #### U ARFX #### [facility] [address] [place] [address] Glucose mass conc Negative Normal Negative [facility] Comment on above: Performed By: #### U ARFX #### [facility] [address] [place] [address] Ketones Ql (U) Negative Normal Negative [facility] Comment on above: Performed By: #### U ARFX #### [facility] [address] [place] [address] Leukocytes Esterase Large Abnormal Negative [facility] Comment on above: Performed By: #### U ARFX #### [facility] [address] [place] [address] Nitrite Ql (U) Negative Normal Negative [facility] Comment on above: Performed By: #### U ARFX #### [facility] [address] [place] [address] pH (Bld) 7.0 Normal 5.0-9.0 [facility] Comment on above: Performed By: #### U ARFX #### [facility] [address] [place] [address] Protein mass conc (U) Negative Normal Negative [facility] Comment on above: Performed By: #### U ARFX #### [facility] [address] [place] [address] RBC 11 /[HPF] Normal 0-3 [facility] Comment on above: Performed By: #### U ARFX #### [facility] [address] [place] [address] Specific gravity Relative Density (U) 1.010 Normal 1.003-1.035 [facility] Comment on above: Performed By: #### U ARFX #### [facility] [address] [place] [address] Squamous Epithelial Cells 29 /[HPF] Normal 0-5 [facility] Comment on above: Performed By: #### U ARFX #### [facility] [address] [place] [address] Urobilinogen Qn (U) 2.0 mg/dL Abnormal Negative [facility] Comment on above: Result Comment: Due to a manufacturing issue, low positive urobilinogen results may be falsely positive. Correlate with urine bilirubin and additional clinical/laboratory findings to assess the risk of hemolytic anemia or liver disease. If clinically indicated, repeat testing with an alternate method is available by contacting the laboratory within 24 hours. Performed By: #### U ARFX #### [facility] [address] [place] [address] WBC 32 /[HPF] Normal 0-5 [facility] Comment on above: Performed By: #### U ARFX #### [facility] [address] [place], [place] [id number] Culture, Group B Strep Scree non 12-25-2018 Culture, Group B Strep Screen BILL#: [id number] : 89 AGE: SEX: F AMBULATORY SOURCE: COLLECTED: 12/25/18 19:16 ANTIBIOTICS AT MISSY.: RECEIVED : 12/25/18 22:00 SITE: R E S U L T S GROUP B STREP SCREEN FINAL 12/27/18 08:44 NEGATIVE FOR GROUP B BETA STREP. Normal [facility] Comment on above: Performed By: #### C XBUR #### [facility] [address] [place] [address] Culture, Urine Bacterialon 0 12-25-2018 Culture, Urine Bacterial BILL#: [id number] : 89 AGE: SEX: F AMBULATORY SOURCE: URINE COLLECTED: 12/25/18 19:15 ANTIBIOTICS AT MISSY.: RECEIVED : 12/25/18 21:58 SITE: Unspecified R E S U L T S URINE CULTURE,BACTERIAL FINAL 12/26/18 15:49 NO SIGNIFICANT GROWTH. Normal [facility] Comment on above: Performed By: #### C XBUR #### [facility] [address] [place] [address] N. gonorrhoeae/C. trachomati s, Amplifiedon 12-25-2018 Chlamydia trachomatis, Amplified Negative Normal Negative [facility] Comment on above: Performed By: #### C XBUR #### [facility] [address] [place] [address] GC/CHLAM/TRICA Source Swab-Endocerv Normal [facility] Comment on above: Performed By: #### C XBUR #### [facility] [address] [place] [address] Neisseria gonorrhoeae, Amplified Negative Normal Negative [facility] Comment on above: Performed By: #### C XBUR #### [facility] [address] [place] [address] Trichmonas, Amplified Detect ionon 12-25-2018 Trichomonas, Amplified Negative Normal Negative [facility] Comment on above: Performed By: #### C XBUR #### [facility] [address] [place] [address] CBCon 12-11-2018 Erythrocyte distribution width Ratio (RBC) 13.0 % Normal 12.0-15.4 [facility] Comment on above: Performed By: #### C XBUR #### [facility] [address] [place] [address] Hematocrit Volume Fraction (Bld) 33.0 % Low 36.5-46.6 [facility] Comment on above: Performed By: #### C XBUR #### [facility] [address] [place] [address] Hemoglobin mass conc (Bld) 10.8 g/dL Low 11.8-15.3 [facility] Comment on above: Performed By: #### C XBUR #### [facility] [address] [place] [address] MCH Entitic mass (RBC) 29.8 pg Normal 27.5-33.0 [facility] Comment on above: Performed By: #### C XBUR #### [facility] [address] [place] [address] MCHC mass conc (RBC) 32.7 g/dL Normal 30.1-35.0 [facility] Comment on above: Performed By: #### C XBUR #### [facility] [address] [place] [address] MCV Entitic volume (RBC) 91.2 fL Normal 85.4-100.0 [facility] Comment on above: Performed By: #### C XBUR #### [facility] [address] [place] [address] NRBC Absolute 0.00 10*3/uL Normal [facility] Comment on above: Performed By: #### C XBUR #### [facility] [address] [place] [address] NRBC Automated 0.0 /100{WBCs} Normal [facility] Comment on above: Performed By: #### C XBUR #### [facility] [address] [place] [address] Platelet mean volume Entitic volume (Bld) 9.8 fL Low 9.9-12.1 [facility] Comment on above: Performed By: #### C XBUR #### [facility] [address] [place] [address] Platelets #/vol (Bld) 228 10*3/uL Normal 155-404 [facility] Comment on above: Performed By: #### C XBUR #### [facility] [address] [place] [address] RBC #/vol (Bld) 3.62 10*6/uL Low 3.85-5.10 [facility] Comment on above: Performed By: #### C XBUR #### [facility] [address] [place] [address] RDW SD 43.0 fL Normal 39.3-48.6 [facility] Comment on above: Performed By: #### C XBUR #### [facility] [address] [place] [address] WBC #/vol (Bld) 9.6 10*3/uL Normal 4.4-9.9 [facility] Comment on above: Performed By: #### C XBUR #### [facility] [address] [place] [address] Comprehensive Metabolic Pane adriano 12-11-2018 Albumin mass conc 3.4 g/dL Normal 3.4-5.0 [facility] Comment on above: Performed By: #### C XBUR #### [facility] [address] [place] [address] Albumin/Globulin mass ratio 1.1 {ratio} Normal 0.9-2.4 [facility] Comment on above: Performed By: #### C XBUR #### [facility] [address] [place] [address] ALP enzyme act/vol 97 U/L Normal 45-117 [facility] Comment on above: Performed By: #### C XBUR #### [facility] [address] [place] [address] ALT enzyme act/vol 16 U/L Normal 7-45 [facility] Comment on above: Performed By: #### C XBUR #### [facility] [address] [place] [address] Anion gap molar conc 13 mmol/L Normal 10-20 [facility] Comment on above: Performed By: #### C XBUR #### [facility] [address] [place] [address] AST enzyme act/vol 14 U/L Normal 13-39 [facility] Comment on above: Performed By: #### C XBUR #### [facility] [address] [place] [address] Bilirubin mass conc 0.4 mg/dL Normal 0.0-1.2 [facility] Comment on above: Performed By: #### C XBUR #### [facility] [address] [place] [address] Calcium mass conc 8.8 mg/dL Normal 8.6-10.3 [facility] Comment on above: Performed By: #### C XBUR #### [facility] [address] [place] [address] Chloride molar conc 103 mmol/L Normal 98-107 [facility] Comment on above: Performed By: #### C XBUR #### [facility] [address] [place] [address] Creatinine mass conc 0.41 mg/dL Low 0.50-1.05 [facility] Comment on above: Performed By: #### C XBUR #### [facility] [address] [place] [address] GFR/1.73 sq M.predicted MDRD vol rate/area mL/min/{1.73_m2} Normal [facility] Comment on above: Result Comment: Inte rpretation for Chronic Kidney Disease: Stages 1&2 >60 Healthy or potential kidney damage. Mild decrease of GFR. Stage 3 30-59 Moderate decrease of GFR. Stage 4 15-29 Severe decrease of GFR. Stage 5 <15 Kidney failure or on dialysis. Performed By: #### C XBUR #### [facility] [address] [place] [address] Glucose mass conc 87 mg/dL Normal 70-100 [facility] Comment on above: Performed By: #### C XBUR #### [facility] [address] [place] [address] HCO3 molar conc (Bld) 26 mmol/L Normal 21-32 [facility] Comment on above: Performed By: #### C XBUR #### [facility] [address] [place] [address] Potassium molar conc 4.1 mmol/L Normal 3.5-5.1 [facility] Comment on above: Performed By: #### C XBUR #### [facility] [address] [place] [address] Protein mass conc 6.4 g/dL Normal 6.4-8.2 [facility] Comment on above: Performed By: #### C XBUR #### [facility] [address] [place] [address] Sodium molar conc 138 mmol/L Normal 136-145 [facility] Comment on above: Performed By: #### C XBUR #### [facility] [address] [place] [address] Urea nitrogen mass conc 5 mg/dL Low 6-23 [facility] Comment on above: Performed By: #### C XBUR #### [facility] [address] [place] [address] Urea nitrogen/Creatinin e mass ratio 12 mg/mg Normal 5-25 [facility] Comment on above: Performed By: #### C XBUR #### [facility] [address] [place] [address] Drugs of Abuse, Urine(7)on 0 12-11-2018 Amphetamines/Metam phetamines, Urine Not Detected Normal [facility] Comment on above: Performed By: #### C XBUR #### [facility] [address] [place] [address] Barbiturates, Urine Not Detected Normal [facility] Comment on above: Performed By: #### C XBUR #### [facility] [address] [place] [address] Benzodiazepines, Urine Not Detected Normal [facility] Comment on above: Performed By: #### C XBUR #### [facility] [address] [place] [address] Cannabinoids, Urine Not Detected Normal [facility] Comment on above: Performed By: #### C XBUR #### [facility] [address] [place] [address] Cocaine, Urine Not Detected Normal [facility] Comment on above: Performed By: #### C XBUR #### [facility] [address] [place] [address] Methadone, Urine Not Detected Normal [facility] Comment on above: Performed By: #### C XBUR #### [facility] [address] [place] [address] Opiates, Urine Not Detected Normal [facility] Comment on above: Performed By: #### C XBUR #### [facility] [address] [place] [address] PCP, Urine Not Detected Normal [facility] Comment on above: Result Comment: Urin e toxicology screen results are to be used for medical purposes only. It is recommended that any result reported as Detected be confirmed by a more specific alternative chemical method. Drug Analyzed Cutoff Concentration(ng/mL) Barbiturates 200 Benzodiazepines 200 Cocaine 150 Opiates 300 Amphetamines 500 Cannabinoids 50 Methadone 150 PCP 25 Performed By: #### C XBUR #### [facility] [address] [place] [address] Urinalysison 12-11-2018 Amorphous Crystal Occasional Normal None [facility] Comment on above: Performed By: #### C XBUR #### [facility] [address] [place] [address] Appearance Nom (U) Cloudy Normal Clear [facility] Comment on above: Performed By: #### C XBUR #### [facility] [address] [place] [address] Ascorbic Acid Negative Normal Negative [facility] Comment on above: Performed By: #### C XBUR #### [facility] [address] [place] [address] Automated Urine Microscopy Performed Normal [facility] Comment on above: Performed By: #### C XBUR #### [facility] [address] [place] [address] Bilirubin mass conc Negative Normal Negative [facility] Comment on above: Performed By: #### C XBUR #### [facility] [address] [place] [address] Blood Negative Normal Negative [facility] Comment on above: Performed By: #### C XBUR #### [facility] [address] [place] [address] Color Nom (U) Yellow Normal [facility] Comment on above: Performed By: #### C XBUR #### [facility] [address] [place] [address] Glucose mass conc Negative Normal Negative [facility] Comment on above: Performed By: #### C XBUR #### [facility] [address] [place] [address] Ketones Ql (U) Negative Normal Negative [facility] Comment on above: Performed By: #### C XBUR #### [facility] [address] [place] [address] Leukocytes Esterase Trace Abnormal Negative [facility] Comment on above: Performed By: #### C XBUR #### [facility] [address] [place] [address] Mucous Rare Normal None [facility] Comment on above: Performed By: #### C XBUR #### [facility] [address] [place] [address] Nitrite Ql (U) Negative Normal Negative [facility] Comment on above: Performed By: #### C XBUR #### [facility] [address] [place] [address] pH (Bld) 7.0 Normal 5.0-9.0 [facility] Comment on above: Performed By: #### C XBUR #### [facility] [address] [place] [address] Protein mass conc (U) Negative Normal Negative [facility] Comment on above: Performed By: #### C XBUR #### [facility] [address] [place] [address] RBC 3 /[HPF] Normal 0-3 [facility] Comment on above: Performed By: #### C XBUR #### [facility] [address] [place] [address] Specific gravity Relative Density (U) 1.014 Normal 1.003-1.035 [facility] Comment on above: Performed By: #### C XBUR #### [facility] [address] [place] [address] Squamous Epithelial Cells 23 /[HPF] Normal 0-5 [facility] Comment on above: Performed By: #### C XBUR #### [facility] [address] [place] [address] Urobilinogen Qn (U) <2.0 Normal Negative [facility] Comment on above: Result Comment: Due to a manufacturing issue, low positive urobilinogen results may be falsely positive. Correlate with urine bilirubin and additional clinical/laboratory findings to assess the risk of hemolytic anemia or liver disease. If clinically indicated, repeat testing with an alternate method is available by contacting the laboratory within 24 hours. Performed By: #### C XBUR #### [facility] [address] [place] [address] WBC 3 /[HPF] Normal 0-5 [facility] Comment on above: Performed By: #### C XBUR #### [facility] [address] [place] [address] Drugs of Abuse, Urine(7)on 0 - Amphetamines/Metam phetamines, Urine Not Detected Normal [facility] Comment on above: Performed By: #### C XBUR #### [facility] [address] [place] [address] Barbiturates, Urine Not Detected Normal [facility] Comment on above: Performed By: #### C XBUR #### [facility] [address] [place] [address] Benzodiazepines, Urine Not Detected Normal [facility] Comment on above: Performed By: #### C XBUR #### [facility] [address] [place] [address] Cannabinoids, Urine Not Detected Normal [facility] Comment on above: Performed By: #### C XBUR #### [facility] [address] [place] [address] Cocaine, Urine Not Detected Normal [facility] Comment on above: Performed By: #### C XBUR #### [facility] [address] [place] [address] Methadone, Urine Not Detected Normal [facility] Comment on above: Performed By: #### C XBUR #### [facility] [address] [place] [address] Opiates, Urine Not Detected Normal [facility] Comment on above: Performed By: #### C XBUR #### [facility] [address] [place] [address] PCP, Urine Not Detected Normal [facility] Comment on above: Result Comment: Urin e toxicology screen results are to be used for medical purposes only. It is recommended that any result reported as Detected be confirmed by a more specific alternative chemical method. Drug Analyzed Cutoff Concentration(ng/mL) Barbiturates 200 Benzodiazepines 200 Cocaine 150 Opiates 300 Amphetamines 500 Cannabinoids 50 Methadone 150 PCP 25 Performed By: #### C CUAUHTEMOC #### [facility] [address] [place] [address] Urinalysison 12-01-2018 Appearance Nom (U) Clear Normal Clear [facility] Comment on above: Performed By: #### G CCHA #### [facility] [address] [place] [address] Ascorbic Acid Positive Normal Negative [facility] Comment on above: Result Comment: Pres ence of Ascorbic Acid may interfere with the detection of blood, glucose, nitrite, and bilirubin. Performed By: #### G CCHA #### [facility] [address] [place] [address] Automated Urine Microscopy Performed Normal [facility] Comment on above: Performed By: #### G CCHA #### [facility] [address] [place] [address] Bilirubin mass conc Negative Normal Negative [facility] Comment on above: Performed By: #### [facility] #### [facility] [address] [place] [address] Blood Negative Normal Negative [facility] Comment on above: Performed By: #### [facility] #### [facility] [address] [place] [address] Budding Yeast Rare Normal None [facility] Comment on above: Performed By: #### [facility] #### [facility] [address] [place] [address] Color Nom (U) Yellow Normal [facility] Comment on above: Performed By: #### G CCHA #### [facility] [address] [place] [address] Glucose mass conc Negative Normal Negative [facility] Comment on above: Performed By: #### G CCHA #### [facility] [address] [place] [address] Ketones Ql (U) Negative Normal Negative [facility] Comment on above: Performed By: #### [facility] #### [facility] [address] [place] [address] Leukocytes Esterase Small Abnormal Negative [facility] Comment on above: Performed By: #### G CCHA #### [facility] [address] [place] [address] Mucous Rare Normal None [facility] Comment on above: Performed By: #### G CCHA #### [facility] [address] [place] [address] Nitrite Ql (U) Negative Normal Negative [facility] Comment on above: Performed By: #### [facility] #### [facility] [address] [place] [address] pH (Bld) 7.0 Normal 5.0-9.0 [facility] Comment on above: Performed By: #### [facility] #### [facility] [address] [place] [address] Protein mass conc (U) Negative Normal Negative [facility] Comment on above: Performed By: #### [facility] #### [facility] [address] [place] [address] RBC 3 /[HPF] Normal 0-3 [facility] Comment on above: Performed By: #### G CCHA #### [facility] [address] [place] [address] Specific gravity Relative Density (U) 1.016 Normal 1.003-1.035 [facility] Comment on above: Performed By: #### G CCHA #### [facility] [address] [place] [address] Squamous Epithelial Cells 12 /[HPF] Normal 0-5 [facility] Comment on above: Performed By: #### [facility] #### [facility] [address] [place] [address] Urobilinogen Qn (U) <2.0 Normal Negative [facility] Comment on above: Result Comment: Due to a manufacturing issue, low positive urobilinogen results may be falsely positive. Correlate with urine bilirubin and additional clinical/laboratory findings to assess the risk of hemolytic anemia or liver disease. If clinically indicated, repeat testing with an alternate method is available by contacting the laboratory within 24 hours. Performed By: #### G CCHA #### [facility] [address] [place] [address] WBC 2 /[HPF] Normal 0-5 [facility] Comment on above: Performed By: #### G CCHA #### [facility] [address] [place] [address] Vaginal Pathogen DNAon 12-01 Estrada Vag DNA Probe Positive Abnormal Negative [facility] Comment on above: Performed By: #### C XBROSALINA #### [facility] [address] [place] [address] Protein mass conc Negative Normal Negative [facility] Comment on above: Performed By: #### C XBROSALINA #### [facility] [address] [place] [address] Trich Vag DNA Probe Negative Normal Negative [facility] Comment on above: Performed By: #### C XBROSALINA #### [facility] [address] [place] [address] Ferritinon 11-13-2018 Ferritin mass conc 6 ng/mL Low 8-150 [facility] Comment on above: Performed By: #### [facility] #### [facility] [address] [place] [address] Folate/B12on 11-13-2018 Cobalamin (Vitamin B12) mass conc 239 pg/mL Normal 211-911 [facility] Comment on above: Performed By: #### G CCHA #### [facility] [address] [place] [address] Folate 21.10 ng/mL Normal [facility] Comment on above: Result Comment: Norm al Range >5.0 Performed By: #### G CCHA #### [facility] [address] [place] [address] N. gonorrhoeae/C. trachomati s, Amplifiedon 11-13-2018 Chlamydia trachomatis, Amplified Negative Normal Negative [facility] Comment on above: Performed By: #### G CCHA #### [facility] [address] [place] [address] GC/CHLAM/TRICA Source Swab-Endocerv Normal [facility] Comment on above: Performed By: #### [facility] #### [facility] [address] [place] [address] Neisseria gonorrhoeae, Amplified Negative Normal Negative [facility] Comment on above: Performed By: #### G CCHA #### [facility] [address] [place] [address] Vaginal Pathogen DNAon 11-13 Estrada Vag DNA Probe Positive Abnormal Negative [facility] Comment on above: Performed By: #### [facility] #### [facility] [address] [place] [address] Protein mass conc Positive Abnormal Negative [facility] Comment on above: Performed By: #### G CCHA #### [facility] [address] [place] [address] Trich Vag DNA Probe Negative Normal Negative [facility] Comment on above: Performed By: #### [facility] #### [facility] [address] [place] [address] CBCon 10-24-2018 Erythrocyte distribution width Ratio (RBC) 13.2 % Normal 12.0-15.4 [facility] Comment on above: Performed By: #### [facility] #### [facility] [address] [place] [address] Hematocrit Volume Fraction (Bld) 31.3 % Low 36.5-46.6 [facility] Comment on above: Performed By: #### [facility] #### [facility] [address] [place] [address] Hemoglobin mass conc (Bld) 10.3 g/dL Low 11.8-15.3 [facility] Comment on above: Performed By: #### G CCHA #### [facility] [address] [place] [address] MCH Entitic mass (RBC) 30.0 pg Normal 27.5-33.0 [facility] Comment on above: Performed By: #### [facility] #### [facility] [address] [place] [address] MCHC mass conc (RBC) 32.9 g/dL Normal 30.1-35.0 [facility] Comment on above: Performed By: #### [facility] #### [facility] [address] [place] [address] MCV Entitic volume (RBC) 91.3 fL Normal 85.4-100.0 [facility] Comment on above: Performed By: #### [facility] #### [facility] [address] [place] [address] NRBC Absolute 0.00 10*3/uL Normal [facility] Comment on above: Performed By: #### G [facility] #### [facility] [address] [place] [address] NRBC Automated 0.0 /100{WBCs} Normal [facility] Comment on above: Performed By: #### G [facility] #### [facility] [address] [place] [address] Platelet mean volume Entitic volume (Bld) 10.2 fL Normal 9.9-12.1 [facility] Comment on above: Performed By: #### G [facility] #### [facility] [address] [place] [address] Platelets #/vol (Bld) 233 10*3/uL Normal 155-404 [facility] Comment on above: Performed By: #### G [facility] #### [facility] [address] [place] [address] RBC #/vol (Bld) 3.43 10*6/uL Low 3.85-5.10 [facility] Comment on above: Performed By: #### [facility] #### [facility] [address] [place] [address] RDW SD 44.4 fL Normal 39.3-48.6 [facility] Comment on above: Performed By: #### [facility] #### [facility] [address] [place] [address] WBC #/vol (Bld) 8.8 10*3/uL Normal 4.4-9.9 [facility] Comment on above: Performed By: #### [facility] #### [facility] [address] [place] [address] Glucose, 1 H Post 50 Gram (P regnancy Screen)on 10-24-2018 Glucose, 1 H Post 50 Gram ( Screen) 114 mg/dL Normal 55-140 [facility] Comment on above: Performed By: #### [facility] #### [facility] [address] [place] [address] N. gonorrhoeae/C. trachomati s, Amplifiedon 10-16-2018 Chlamydia trachomatis, Amplified Positive Abnormal Negative [facility] Comment on above: Performed By: #### [facility] #### [facility] [address] [place] [address] GC/CHLAM/TRICA Source Urine Normal [facility] Comment on above: Performed By: #### [facility] #### [facility] [address] [place] [address] Neisseria gonorrhoeae, Amplified Positive Abnormal Negative [facility] Comment on above: Performed By: #### [facility] #### [facility] [address] [place] [address] CBCon 09-18-2018 Erythrocyte distribution width Ratio (RBC) 13.5 % Normal 12.0-15.4 [facility] Comment on above: Performed By: #### 2 [id number] #### [facility] [address] [place] [address] Hematocrit Volume Fraction (Bld) 34.6 % Low 36.5-46.6 [facility] Comment on above: Performed By: #### 2 [id number] #### [facility] [address] [place] [address] Hemoglobin mass conc (Bld) 11.3 g/dL Low 11.8-15.3 [facility] Comment on above: Performed By: #### 2 [id number] #### [facility] [address] [place] [address] MCH Entitic mass (RBC) 29.5 pg Normal 27.5-33.0 [facility] Comment on above: Performed By: #### 2 [id number] #### [facility] [address] [place] [address] MCHC mass conc (RBC) 32.7 g/dL Normal 30.1-35.0 [facility] Comment on above: Performed By: #### 2 [id number] #### [facility] [address] [place] [address] MCV Entitic volume (RBC) 90.3 fL Normal 85.4-100.0 [facility] Comment on above: Performed By: #### 2 [id number] #### [facility] [address] [place] [address] NRBC Absolute 0.00 10*3/uL Normal [facility] Comment on above: Performed By: #### 2 [id number] #### [facility] [address] [place] [address] NRBC Automated 0.0 /100{WBCs} Normal [facility] Comment on above: Performed By: #### 2 [id number] #### [facility] [address] [place] [address] Platelet mean volume Entitic volume (Bld) 10.7 fL Normal 9.9-12.1 [facility] Comment on above: Performed By: #### 2 [id number] #### [facility] [address] [place] [address] Platelets #/vol (Bld) 255 10*3/uL Normal 155-404 [facility] Comment on above: Performed By: #### 2 [id number] #### [facility] [address] [place] [address] RBC #/vol (Bld) 3.83 10*6/uL Low 3.85-5.10 [facility] Comment on above: Performed By: #### 2 [id number] #### [facility] [address] [place] [address] RDW SD 44.2 fL Normal 39.3-48.6 [facility] Comment on above: Performed By: #### 2 [id number] #### [facility] [address] [place] [address] WBC #/vol (Bld) 8.8 10*3/uL Normal 4.4-9.9 [facility] Comment on above: Performed By: #### 2 [id number] #### [facility] [address] [place] [address] Culture, Urine Bacterialon 1 11-18-2017 Culture, Urine Bacterial BILL#: [id number] : 89 AGE: SEX: F AMBULATORY SOURCE: URINE COLLECTED: 09/18/18 19:09 ANTIBIOTICS AT MISSY.: RECEIVED : 09/18/18 22:53 SITE: Unspecified R E S U L T S URINE CULTURE,BACTERIAL FINAL 09/19/18 16:24 NO SIGNIFICANT GROWTH. Normal [facility] Comment on above: Performed By: #### U ARFX #### [facility] [address] [place] [address] Cystic Fibrosis, 165 Variant on 09-18-2018 CF 165 Variant Interp. 0 variants Normal [facility] Comment on above: Result Comment: None of the 165 pathogenic cystic fibrosis (CF) variants tested were detected. The following table can be used to determine the reduction in carrier risk. This table does not apply to individuals with a positive family history who require Bayesian analysis for accurate risk assessment. Variant Carrier Detection Carrier Risk Risk After Ethnicity Rate Before Test Negative Test 78% 1 in 61 1 in 275 Ashkenazi Sabianism 96% 1 in 24 1 in 575 [place] Islander 55% 1 in 94 1 in 210 92% 1 in 25 1 in 300 [place]er 80% 1 in 58 1 in 285 Specimen: Whole Blood Symptoms: No Ethnicity: Family History: No This result has been reviewed and approved by David Escalante, Ph.D. BACKGROUND INFORMATION: Cystic Fibrosis (CFTR), 165 Pathogenic Variants CHARACTERISTICS OF CLASSIC CYSTIC FIBROSIS (CF): Chronic sino-pulmonary disease, gastrointestinal malabsorption/pancreatic insufficiency, and obstructive azoospermia. Symptoms of a CFTR-related disorder are often limited to a single organ system such as isolated pancreatitis, bilateral absence of the vas deferens, nasal polyposis, or bronchiectasis. INCIDENCE: 1 in 2,300 Ashkenazi Sabianism, 1 in 2,500 Caucasians, 1 in 13,500 Hispanics, 1 in 15,100 Americans, 1 in 35,100 Asians. INHERITANCE: Autosomal recessive. PENETRANCE: High for severe pathogenic variants, variable for moderate or mild pathogenic variants. Cause of Classic CF: Two severe, or one severe and one moderate, pathogenic CFTR variants on opposite chromosomes. Cause of CFTR-Related Disorder: Two pathogenic CFTR variants on opposite chromosomes; two mild, one mild and one severe or one mild and one moderate. PATHOGENIC VARIANTS TESTED: *Note: variants are listed by standard nomenclature. Legacy names are also provided for the 23 recommended ACMG variants. c.1A>G, p.Kzu6Mhx; c.54-1947_273+94761tuw, Exons 2-3del; c.115C>T, p.Gln39X; c.178G>T, p.Glu60X; c.200C>T, p.Ccg92Jfl; c.223C>T, p.Arg75X; c.254G>A (Legacy G85E), p.Aif12Bqv; c.262_263delTT, p.Gwx98UlwkiO87 (aka p.Ifn48lg); c.273+1G>A, Intronic; c.273+3A>C, Intronic; c.274-1G>A, Intronic; c.274G>A, p.Klr29Zdj; c.274G>T, p.Glu92X; c.292C>T, p.Gln98X; c.313delA, p.Xnu889RgcfvQ4 (aka p.Fwt421za); c.325_327delTATinsG, p.Yqg680ZqxwrA9 (aka p.Npb171kw); c.328G>C, p.Vlm780Nkw; c.349C>T, p.Bfd169Sbu; c.350G>A (Legacy R117H), p.Atl702Fmz; c.366T>A, p.Lvn459F; c.442delA, p.Iaz443ZoqqoC7 (aka p.Nvf866cl); c.489+1G>T (Legacy 621+1G>T), Intronic; c.531delT, p.Hgt199JcuvkP14 (aka p.Uny777el); c.532G>A, p.Ggj475Mok; c.579+1G>T (Legacy 711+1G>T), Intronic; c.579+5G>A, Intronic; c.579+3A>G, Intronic; c.580-1G>T, Intronic; c.595C>T, p.Cmx345Alf; c.613C>T, p.Fcl611Fzl; c.617T>G, p.Kwz736Jgr; c.658C>T, p.Cir598V; c.680T>G, p.Jgk332Ymu; c.720_741delAGGGAGAATGATGATGAAGTA, p.Wer559IbqwuE12 (aka p.Jrt321uw); c.803delA, p.Iwd542SqkesJ76 (aka p.Pmy433fs); c.805_806delAT, p.Fhg710FznrhT4 (aka p.Ecj258ho); c.933_935delCTT, p.Ofo949qmr; c.948delT, p.Yrr984VhflpF39 (aka p.Xdi456za); c.988G>T, p.Jno217K; c.1000C>T (Legacy R334W), p.Nmj636Sbz; c.1007T>A, p.Cvm243Xhe; c.1021T>C, p.Fpk302Lqh; c.1022_1023insTC, p.Rxy888GkmhbF20 (aka p.Uao915rt); c.1040G>A, p.Iiv828Grw; c.1040G>C (Legacy R347P), p.Nje143Xhe; c.1055G>A, p.Aya835Jbl; c.1081delT, p.Ymi283VdpytD5 (aka p.Xtq924iw); c.1116+1G>A, Intronic; c.1127_1128insA, p.Bgl948NfwniF0 (aka p.Fyw795ne); c.1153_1154insAT, p.Kij738OrktdD1 (aka p.Zfz244lw); c.1202G>A, p.Ghm999F; c.1203G>A, p.Sta559T; c.1209+1G>A, Intronic; c.1329_1330insAGAT, p.Ban323CndxfL9 (aka p.Dbk499fa); c.1340delA, p.Jsw759VizcsM7 (aka p.Gpr794lc); c.1364C>A (Legacy A455E), p.Zor219Xfc; c.1393-1G>A, Intronic; c.1397C>A, p.Jsa076T; c.1397C>G, p.Aoh361A; c.1400T>C, p.Xrw170Reo; c.1418delG, p.Rls225IfigpI97 (aka p.Nzl670yz); c.1438G>T, p.Tvx837Mnw; c.1466C>A, p.Ocu561K; c.1475C>T, p.Jsz798Xij; c.1477C>T, p.Kaj884I; c.1519_1521delATC (Legacy I577ran), p.Qqg868ejz; c.1521_1523delCTT (Legacy A641qrz), p.Hqx615yvh; c.1545_1546delTA, p.Bge319Z; c.1558G>T, p.Rpm879Ucp; c.1572C>A, p.Nga371E; c.1573C>T, p.Nql414H; c.1585-1G>A (Legacy 1717-1G>A), Intronic; c.1585-8G>A, Intronic; c.1624G>T (Legacy G542X), p.Xhc328W; c.1645A>C, p.Obn560Uyp; c.1646G>A, p.Qfx230Mox; c.1647T>G, p.Ayc401Gof; c.1651G>A, p.Kll142Jse; c.1652G>A (Legacy G551D), p.Dza910Onu; c.1654C>T, p.Ums227S; c.1657C>T (Legacy R553X), p.Nyn654T; c.1675G>A, p.Eay319Feg; c.1679G>A, p.Enu937Qmr; c.1679G>C (Legacy R560T), p.Qne027Eqz; c.1679+1.6kbA>G, Intronic; c.1680-1G>A, Intronic; c.1703delT, p.Kxg867MctoqL6 (aka p.Rzq092ls); c.1705T>G, p.Thp461Nje; c.1721C>A, p.Nsl016Nfa; c.1753G>T, p.Oaj853Y; c.1766+1G>A (Legacy 1898+1G>A), Intronic; c.1766+3A>G, Intronic; c.1792_1798delAAAACTA, p.Wcf302BijtrK28 (aka p.Wpk440as); c.1911delG, p.Uim056WndqjN10 (aka p.Tjd939qx); c.1923_1931del9insA, p.Hne468YxueeR6 (aka p.Usc391ky); c.1972_1984del13insAGAAA, p.Muq116BuyltN5 (aka p.Ubx465db); c.1975delA, p.Igu313NqzdiF1 (aka p.Mck666gw); c.2011delT, p.Ces748E; c.2050_2del, p.Qdp526ZhwkxG2; c.2050_elinsG (aka c.2050_elinsG), p.Vee514VmhzyO20; c.2delA ([facility] 2184delA), p.Ldh426YowrxQ93; c.2125C>T, p.Jfy023H; c.2128A>T, p.Zop552V; c.2175_2176insA, p.Skw086YvoloX0 (aka p.Fkd409it); c.2195T>G, p.Ypx597T; c.2215delG, p.Wtq787VbmnnZ87 (aka p.Arf739gm); c.2290C>T, p.Bdg361Fri; c.2453delT, p.Zlm939MotjbY7 (aka p.Rsg576np); c.2464G>T, p.Pmf268X; c.2490+1G>A, Intronic; c.2491G>T, p.Fdc690Z; c.2537G>A, p.Xyo883S; c.2538G>A, p.Kqe345T; c.2551C>T, p.Mwj535L; c.2583delT, p.Swr373GtuopN6 (aka p.Nyt680ov); c.2657+5G>A ([facility] 2789+5G>A), Intronic; c.2668C>T, p.Bue225A; c.2737_2738insG, p.Nov576U; c.2780T>C, p.Mcl948Mkg; c.2810_2811insT, p.Sbp974MlxulZ10 (aka p.Xrx127hy); c.2834C>T, p.Lpl204Wsw; c.2875delG, p.Fct214LgeavG7 (aka p.Dch942wc); c.2908G>C, p.Vmd690Hao; c.2988+1G>A ([facility] 3120+1G>A), Intronic; c.2988G>A, Intronic; c.2989-1G>A, Intronic; c.3039delC, p.Gjo3739EfvmpD2 (aka p.Hnv2139le); c.3067_3072delATAGTG, p.Rbg8292_Sfu6476rme (aka I2250_O8812qxn); c.3140-26A>G, Intronic; c.3194T>C, p.Efa5010Red; c.3196C>T, p.Zti9485Mht; c.3197G>A, p.Hcd2352Pmg; c.3230T>C, p.Rxq7743Dyb; c.3266G>A, p.Rqg8439M; c.3276C>A, p.Fln6357T; c.3276C>G, p.Wwz2809N; c.3302T>A, p.Wbn5862Mlt; c.3310G>T, p.Scj8648T; c.3472C>T, p.Nkh2646W; c.3484C>T ([facility] G8351K), p.Eps9347S; c.3528delC ([facility] 3659delC), p.Vrp3111IzcqkU31 (aka p.Wwo8479pd); c.3536_3539del, p.Pqn4053VpuqnN31 (aka p.Bor4661fz); c.3587C>G, p.Vmm7395E; c.3611G>A, p.Bqs0672B; c.3612G>A, p.Tbt4272H; c.3659delC, p.Tjj1946EcubpV6 (aka p.Axs0064ap); c.3691delT, p.Phv4840KdxboP8 (aka p.Upp1987jf); c.3712C>T, p.Tgt6978H; c.9606-1325C>T ([facility] 3849+10kbC>T), Intronic; c.3731G>A, p.Gpi9539Kwy; c.3744delA, p.Lta8908VkcuiP9 (aka p.Iny0676kl); c.3752G>A, p.Gjg6319Amy; c.3763T>C, p.Etn1942Tul; c.3764C>A, p.Quf8679D; c.3773_3774insT, p.Yee5723QcjroA1 (aka p.Vgu0352jw); c.3846G>A ([facility] S6419O), p.Cbn6130I; c.3873+1G>A, Intronic; c.3909C>G ([facility] O6318Q), p.Prk6071Zfp; c.3937C>T, p.Nds8324X; c.3964-78_4242+577del, Exons 22-23del; c.4028delG, p.Tic7188QqxybP2 (aka p.Wfk8282wo); c.4046G>A, p.Whh4274Sls; c.4077_4080delTGTTinsAA, p.Jnp5746diH0 (aka p.Blt6174kg); c.4111G>T, p.Zjy1584F; c.4251delA, p.Mat9613VwhdvZ33 (aka p.Dni3433vo). The IVS-8 variant, c.1210-12[5], will be reported only when R117H is detected or in patients who are reported to be symptomatic. CLINICAL SENSITIVITY: Ashkenazi Sabianism 96 percent; 92 percent; 80 percent; 78 percent; [place]er 55 percent. METHODOLOGY: Polymerase chain reaction (PCR) and fluorescence monitoring. Analytical Sensitivity & Specificity: 99 percent. LIMITATIONS: Diagnostic errors can occur due to rare sequence variations. Only the 165 pathogenic CFTR variants and 5T variant (listed above) will be interrogated. See Compliance Statement C: [email or web address] Performed by [facility], [address] [place] [id number] [email or web address], Robert Fraire MD - Lab. Director Performed By: #### U ARFX #### [facility] [address] [place] [address] CF 5T Variant Not Applicable Normal [facility] Comment on above: Performed By: #### U ARFX #### [facility] [address] [place] [address] CF Allele 1 Negative Normal [facility] Comment on above: Performed By: #### U ARFX #### [facility] [address] [place] [address] CF Allele 2 Negative Normal [facility] Comment on above: Performed By: #### U ARFX #### [facility] [address] [place] [address] CF Specimen Type Whole Blood Normal [facility] Comment on above: Performed By: #### U ARFX #### [facility] [address] [place] [address] CF Symptom No Normal [facility] Comment on above: Performed By: #### U ARFX #### [facility] [address] [place] [address] Ethnicity Normal [facility] Comment on above: Performed By: #### U ARFX #### [facility] [address] [place] [address] Family History No Normal [facility] Comment on above: Performed By: #### U ARFX #### [facility] [address] [place] [address] Drugs of Abuse, Urine(7)on 11-18-2017 Amphetamines/Metam phetamines, Urine Not Detected Normal [facility] Comment on above: Performed By: #### U ARFX #### [facility] [address] [place] [address] Barbiturates, Urine Not Detected Normal [facility] Comment on above: Performed By: #### U ARFX #### [facility] [address] [place] [address] Benzodiazepines, Urine Not Detected Normal [facility] Comment on above: Performed By: #### U ARFX #### [facility] [address] [place] [address] Cannabinoids, Urine Not Detected Normal [facility] Comment on above: Performed By: #### U ARFX #### [facility] [address] [place] [address] Cocaine, Urine Not Detected Normal [facility] Comment on above: Performed By: #### U ARFX #### [facility] [address] [place] [address] Methadone, Urine Not Detected Normal [facility] Comment on above: Performed By: #### U ARFX #### [facility] [address] [place] [address] Opiates, Urine Not Detected Normal [facility] Comment on above: Performed By: #### U ARFX #### [facility] [address] [place] [address] PCP, Urine Not Detected Normal [facility] Comment on above: Result Comment: Urin e toxicology screen results are to be used for medical purposes only. It is recommended that any result reported as Detected be confirmed by a more specific alternative chemical method. Drug Analyzed Cutoff Concentration(ng/mL) Barbiturates 200 Benzodiazepines 200 Cocaine 150 Opiates 300 Amphetamines 500 Cannabinoids 50 Methadone 150 PCP 25 Performed By: #### U ARFX #### [facility] [address] [place] [address] HIV 1 Ab, Conf WBloton 09-18 HIV 1 Ab, Conf WBlot Negative Normal Negative [facility] Comment on above: Result Comment: HIV- 1 Western Blot Pattern (0 = neg; * = +/-; 1 = weak pos; 2 = strong pos; X=Non-specific staining obscuring bands in that region) p18 p24 p31 p40 gp41 p51/55 p65 gp120 gp160 0 0 0 0 0 0 0 0 0 Interpretation: NEGATIVE for HIV-1 antibodies. No antibodies were detected by Western blot. Very early HIV infection prior to seroconversion cannot be excluded. Further testing is recommended if an initially reactive screening result was obtained using a combined antigen/antibody HIV assay, in which case the Western blot is not sufficient for confirmation since it detects only antibodies. An HIV RNA assay is recommended. INTERPRETIVE INFORMATION: HIV 1 Ab, Confirm Western Blot This assay should not be used for blood donor screening, associated re-entry protocols, or for screening Human Cells, Tissues and Cellular and Tissue-Based Products (HCT/P). Performed by [facility], [address] [place] [id number] www.[email or web address], Robert Fraire MD - Lab. Director Performed By: #### U ARFX #### [facility] [address] [place] [address] Hemoglobin Identificationon 09-18-2018 Hemoglobin A2 2.8 % Normal [facility] Comment on above: Result Comment: HGB A2 values may be falsely elevated in the presence of HGB S Hemoglobin F 0.6 % Normal [facility] Hemoglobin mass conc (Bld) 96.6 % Normal [facility] Hemoglobin mass conc (Bld) SEE COMMENT Normal [facility] Comment on above: Result Comment: Huber al Hepatitis B Surface Antigeno n 09-18-2018 Hepatitis B Surface Antigen NONREACTIVE Normal NONREACTIVE [facility] Comment on above: Result Comment: Carrie ents receiving more than 5 mg/day of biotin may have interf in test results. A sample should be taken no sooner than eight after previous dose. Contact [phone] for additional infor Hepatitis C Antibody w/rfx t o Confirmon 09-18-2018 Hepatitis C Antibody NON-REACTIVE Normal NONREACTIVE [facility] Comment on above: Result Comment: Carrie ents receiving more than 5 mg/day of biotin may have interf in test results. A sample should be taken no sooner than eight after previous dose. Contact [phone] for additional infor Rubella Ab, IgGon 09-18-2018 Rubella Ab, IgG 16 IU/ML Normal [facility] Comment on above: Result Comment: REF VALUES NON-IMMUNE: < 5 EQUIVOCAL: 5-9 IMMUNE: >=10 Syphilis IgG w/Rflx toTiter, TP-PAon 09-18-2018 Syphilis IgG w/Rflx toTiter,TP-PA NON REACTIVE Normal NONREACTIVE [facility] Comment on above: Result Comment: Carrie ents receiving more than 5 mg/day of biotin may have interf in test results. A sample should be taken no sooner than eight after previous dose. Contact [phone] for additional infor TSHon 09-18-2018 Thyrotropin Qn 0.54 mU/L Normal 0.44-3.98 [facility] Comment on above: Performed By: #### U ARFX #### [facility] [address] [place] [address] Type and Screenon 09-18-2018 Group and Rh Positive Normal [facility] Comment on above: Performed By: #### T S3 #### [facility] [address] [place] [address] VZV Ab, IgGon 09-18-2018 VZV Ab, IgG Positive Normal NEGATIVE [facility] Comment on above: Result Comment: INTE RPRETATIVE COMMENT NEGATIVE: No IgG antibodies specific to VZV detected. It is likely that the patient has not had a previous exposure to VZV through infection or vaccination. Alternatively, the patient may have been exposed to VZV but a failure to respond may indicate immunodeficiency. EQUIVOCAL:Equivocal results; obtain additional sample for retes POSITIVE: IgG antibody to VZV detected. This may indicate that the patient was exposed to VZV through infection or vaccination. The interpretation of serological tests should take into accoun the immunological status of the patient. Test results for patients, including immunocompromised patients, neonates, and pediatric patients, reflect their capacity to respond immunologically to the virus as well as their exposure to the pathogen. Patients treated with IVIG may demonstrate altered results in serological assays. Vitamin D, 25 Hydroxyon 09-04 Vitamin D, 25 Hydroxy 26 ng/mL Abnormal [facility] Comment on above: Result Comment: DEFI CIENCY <20 INSUFFICIENCY 20-29 OPTIMUM LEVEL 30-80 POSSIBLE TOXICITY >80 Performed By: #### U ARFX #### [facility] [address] [place] [address] Culture, Urine Bacterialon 1 11-09-2017 Culture, Urine Bacterial BILL#: [id number] : 89 AGE: SEX: Primitivo COLÓN SOURCE: URINE COLLECTED: 09/09/18 13:19 ANTIBIOTICS AT MISSY.: RECEIVED : 09/09/18 22:34 SITE: Unspecified R E S U L T S URINE CULTURE,BACTERIAL FINAL 09/10/18 15:13 NO SIGNIFICANT GROWTH. Normal [facility] Comment on above: Performed By: #### C XBUR #### [facility] [address] [place] [address] N. gonorrhoeae/C. trachomati s, Amplifiedon 09-09-2018 Chlamydia trachomatis, Amplified Negative Normal Negative [facility] Comment on above: Performed By: #### G CCHA #### [facility] [address] [place] [address] GC/CHLAM/TRICA Source Swab-Endocerv Normal [facility] Comment on above: Performed By: #### G CCHA #### [facility] [address] [place] [address] Neisseria gonorrhoeae, Amplified Negative Normal Negative [facility] Comment on above: Performed By: #### G CCHA #### [facility] [address] [place] [address] Urinalysis with Reflex Cultu reon 09-09-2018 Appearance Nom (U) Hazy Normal Clear [facility] Comment on above: Performed By: #### U ARFX #### [facility] [address] [place] [address] Ascorbic Acid Negative Normal Negative [facility] Comment on above: Performed By: #### U ARFX #### [facility] [address] [place] [address] Automated Urine Microscopy Performed Normal [facility] Comment on above: Performed By: #### U ARFX #### [facility] [address] [place] [address] Bacteria LM.HPF #/area (Urine sed) Few Normal None [facility] Comment on above: Performed By: #### U ARFX #### [facility] [address] [place] [address] Bilirubin mass conc Negative Normal Negative [facility] Comment on above: Performed By: #### U ARFX #### [facility] [address] [place] [address] Blood Negative Normal Negative [facility] Comment on above: Performed By: #### U ARFX #### [facility] [address] [place] [address] Color Nom (U) Yellow Normal [facility] Comment on above: Performed By: #### U ARFX #### [facility] [address] [place] [address] Glucose mass conc Negative Normal Negative [facility] Comment on above: Performed By: #### U ARFX #### [facility] [address] [place] [address] Ketones Ql (U) Negative Normal Negative [facility] Comment on above: Performed By: #### U ARFX #### [facility] [address] [place] [address] Leukocytes Esterase Large Abnormal Negative [facility] Comment on above: Performed By: #### U ARFX #### [facility] [address] [place] [address] Mucous Rare Normal None [facility] Comment on above: Performed By: #### U ARFX #### [facility] [address] [place] [address] Nitrite Ql (U) Negative Normal Negative [facility] Comment on above: Performed By: #### U ARFX #### [facility] [address] [place] [address] pH (Bld) 6.0 Normal 5.0-9.0 [facility] Comment on above: Performed By: #### U ARFX #### [facility] [address] [place] [address] Protein mass conc (U) Negative Normal Negative [facility] Comment on above: Performed By: #### U ARFX #### [facility] [address] [place] [address] RBC 5 /[HPF] Normal 0-3 [facility] Comment on above: Performed By: #### U ARFX #### [facility] [address] [place] [address] Specific gravity Relative Density (U) 1.019 Normal 1.003-1.035 [facility] Comment on above: Performed By: #### U ARFX #### [facility] [address] [place] [address] Squamous Epithelial Cells 12 /[HPF] Normal 0-5 [facility] Comment on above: Performed By: #### U ARFX #### [facility] [address] [place] [address] Urobilinogen Qn (U) 2.0 mg/dL Abnormal Negative [facility] Comment on above: Performed By: #### U ARFX #### [facility] [address] [place] [address] WBC 6 /[HPF] Normal 0-5 [facility] Comment on above: Performed By: #### U ARFX #### [facility] [address] [place] [address] Vaginal Pathogen DNAon 09-09 Estrada Vag DNA Probe Positive Abnormal Negative [facility] Comment on above: Performed By: #### V AGPA #### [facility] [address] [place] [address] Protein mass conc Positive Abnormal Negative [facility] Comment on above: Performed By: #### V AGPA #### [facility] [address] [place] [address] Trich Vag DNA Probe Positive Abnormal Negative [facility] Comment on above: Performed By: #### V AGPA #### [facility] [address] [place] [address] Culture, Urine Bacterialon 0 07-30-2018 Culture, Urine Bacterial BILL#: [id number] : 89 AGE: SEX: F CAROL SOURCE: URINE COLLECTED: 07/30/18 17:03 ANTIBIOTICS AT MISSY.: RECEIVED : 07/30/18 22:34 SITE: Unspecified R E S U L T S URINE CULTURE,BACTERIAL FINAL 07/31/18 15:35 NO SIGNIFICANT GROWTH. Normal [facility] Comment on above: Performed By: #### C XBUR #### [facility] [address] [place] [address] N. gonorrhoeae/C. trachomati s, Amplifiedon 07-30-2018 Chlamydia trachomatis, Amplified Negative Normal Negative [facility] Comment on above: Performed By: #### G CCHA #### [facility] [address] [place] [address] GC/CHLAM/TRICA Source Urine Normal [facility] Comment on above: Performed By: #### G CCHA #### [facility] [address] [place] [address] Neisseria gonorrhoeae, Amplified Negative Normal Negative [facility] Comment on above: Performed By: #### G CCHA #### [facility] [address] [place] [address] Urinalysis with Reflex Cultu reon 07-30-2018 Appearance Nom (U) Clear Normal Clear [facility] Comment on above: Performed By: #### U ARFX #### [facility] [address] [place] [address] Ascorbic Acid Negative Normal Negative [facility] Comment on above: Performed By: #### U ARFX #### [facility] [address] [place] [address] Automated Urine Microscopy Performed Normal [facility] Comment on above: Performed By: #### U ARFX #### [facility] [address] [place] [address] Bacteria LM.HPF #/area (Urine sed) Rare Normal None [facility] Comment on above: Performed By: #### U ARFX #### [facility] [address] [place] [address] Bilirubin mass conc Negative Normal Negative [facility] Comment on above: Performed By: #### U ARFX #### [facility] [address] [place] [address] Blood Negative Normal Negative [facility] Comment on above: Performed By: #### U ARFX #### [facility] [address] [place] [address] Color Nom (U) Yellow Normal [facility] Comment on above: Performed By: #### U ARFX #### [facility] [address] [place] [address] Glucose mass conc Negative Normal Negative [facility] Comment on above: Performed By: #### U ARFX #### [facility] [address] [place] [address] Ketones Ql (U) Negative Normal Negative [facility] Comment on above: Performed By: #### U ARFX #### [facility] [address] [place] [address] Leukocytes Esterase Moderate Abnormal Negative [facility] Comment on above: Performed By: #### U ARFX #### [facility] [address] [place] [address] Mucous Rare Normal None [facility] Comment on above: Performed By: #### U ARFX #### [facility] [address] [place] [address] Nitrite Ql (U) Negative Normal Negative [facility] Comment on above: Performed By: #### U ARFX #### [facility] [address] [place] [address] pH (Bld) 6.0 Normal 5.0-9.0 [facility] Comment on above: Performed By: #### U ARFX #### [facility] [address] [place] [address] Protein mass conc (U) Negative Normal Negative [facility] Comment on above: Performed By: #### U ARFX #### [facility] [address] [place] [address] RBC 3 /[HPF] Normal 0-3 [facility] Comment on above: Performed By: #### U ARFX #### [facility] [address] [place] [address] Specific gravity Relative Density (U) 1.016 Normal 1.003-1.035 [facility] Comment on above: Performed By: #### U ARFX #### [facility] [address] [place] [address] Squamous Epithelial Cells 3 /[HPF] Normal 0-5 [facility] Comment on above: Performed By: #### U ARFX #### [facility] [address] [place] [address] Urobilinogen Qn (U) >=4.0 Abnormal Negative [facility] Comment on above: Performed By: #### U ARFX #### [facility] [address] [place] [address] WBC 16 /[HPF] Normal 0-5 [facility] Comment on above: Performed By: #### U ARFX #### [facility] [address] [place] [address] FOOT RT 3 OR MORE VWon 05-20 FOOT RT 3 OR MORE VW DATE OF EXAM: May 19 2018 11:20PM CLINICAL HISTORY/ Patient Name: JULIETTE HERNÁNDEZ STUDY: FOOT RT 3 OR MORE VW; 05/19/2018 11:20 pm INDICATION: Trauma. Pain COMPARISON: None. ACCESSION NUMBER(S): [id number] ORDERING CLINICIAN: LUIS CASTRO FINDINGS: Osseous structures and soft tissues appear normal. No fracture or dislocation is noted CONCLUSION: IMPRESSION: Normal right foot Normal [facility] Vital Signs Date Time Vital Sign Value Performing Clinician Facility 02-21-2024 10:39-0400 Body height 167.6 cm Chacorta Erwin MD Work Phone: [facility] 02-21-2024 10:39-0400 Body mass index (BMI) [Ratio] 22.6 kg/m2 Chacorta Erwin MD Work Phone: [facility] 02-21-2024 10:39-0400 Body temperature 97.3 [degF] Chacorta Erwin MD Work Phone: [facility] 02-21-2024 10:39-0400 Body weight 63.5 kg Chacorta Erwin MD Work Phone: [facility] 02-21-2024 10:39-0400 Diastolic blood pressure 54 mm[Hg] Chacorta Erwin MD Work Phone: [facility] 02-21-2024 10:39-0400 Heart rate 64 /min Chacorta Erwin MD Work Phone: [facility] 02-21-2024 10:39-0400 Respiratory rate 16 /min Chacorta Erwin MD Work Phone: [facility] 02-21-2024 10:39-0400 SaO2% (BldA) [Mass fraction] 100 % Chacorta Erwin MD Work Phone: [facility] 02-21-2024 10:39-0400 Systolic blood pressure 104 mm[Hg] Chacorta Erwin MD Work Phone: [facility] 06-19-2023 23:30-0400 Diastolic blood pressure 63 mm[Hg] [facility] 06-19-2023 23:30-0400 Heart rate 83 /min [facility] [place] 06-19-2023 23:30-0400 Respiratory rate 15 /min [facility] [employer] 06-19-2023 23:30-0400 SaO2% (BldA) [Mass fraction] 96 % [facility] 06-19-2023 23:30-0400 Systolic blood pressure 102 mm[Hg] [facility] 06-19-2023 21:44-0400 Body height 167.6 cm [facility] 06-19-2023 21:44-0400 Body mass index (BMI) [Ratio] 22.6 kg/m2 [facility] 06-19-2023 21:44-0400 Body temperature 98.01 [degF] [facility] [employer] 06-19-2023 21:44-0400 Body weight 63.5 kg [facility] 01-09-2023 16:18-0500 Body height 167.64 cm No PCP None [facility] Work Phone: 01-09-2023 16:18-0500 Body mass index (BMI) [Ratio] 24.59 kg/m2 No PCP None [facility] Work Phone: 01-09-2023 16:18-0500 Body surface area Derived from formula 1.78 m2 No PCP None [facility] Work Phone: 01-09-2023 16:18-0500 Body weight 69.12 kg No PCP None [facility] Work Phone: 01-09-2023 16:18-0500 Diastolic blood pressure 60 mm[Hg] No PCP [facility] Work Phone: 01-09-2023 16:18-0500 Systolic blood pressure 116 mm[Hg] No PCP None [facility] Work Phone: 11-21-2022 05:37-0500 Diastolic blood pressure 53 mm[Hg] No Pcp Required [facility] 11-21-2022 05:37-0500 Heart rate 85 /min No Pcp Required [facility] 11-21-2022 05:37-0500 Respiratory rate 18 /min No Pcp Required [facility] 11-21-2022 05:37-0500 SaO2% (BldA) [Mass fraction] 100 % No Pcp Required [facility] 11-21-2022 05:37-0500 Systolic blood pressure 100 mm[Hg] No Pcp Required [facility] 11-21-2022 03:56-0500 Body height 167.6 cm No Pcp Required [facility] 11-21-2022 03:56-0500 Body temperature 97.7 [degF] No Pcp Required [facility] 11-21-2022 03:56-0500 Body weight 68.1 kg No Pcp Required [facility] 09-08-2022 22:01-0400 Diastolic blood pressure 61 mm[Hg] No Pcp Required [facility] 09-08-2022 22:01-0400 Heart rate 69 /min No Pcp Required [facility] 09-08-2022 22:01-0400 Respiratory rate 16 /min No Pcp Required [facility] 09-08-2022 22:01-0400 SaO2% (BldA) [Mass fraction] 100 % No Pcp Required [facility] 09-08-2022 22:01-0400 Systolic blood pressure 121 mm[Hg] No Pcp Required [facility] 09-08-2022 17:31-0400 Body height 167.6 cm No Pcp Required [facility] 09-08-2022 17:31-0400 Body temperature 98.24 [degF] No Pcp Required [facility] 09-08-2022 17:31-0400 Body weight 66 kg No Pcp [facility] [facility] 06-26-2021 16:54-0400 Diastolic blood pressure 65 mm[Hg] No Pcp Required [facility] 06-26-2021 16:54-0400 Heart rate 70 /min No Pcp Required [facility] 06-26-2021 16:54-0400 Respiratory rate 16 /min No Pcp Required [facility] 06-26-2021 16:54-0400 SaO2% (BldA) [Mass fraction] 97 % No Pcp Required [facility] 06-26-2021 16:54-0400 Systolic blood pressure 112 mm[Hg] No Pcp Required [facility] 06-26-2021 11:14-0400 Body height 167.6 cm No Pcp Required [facility] 06-26-2021 11:14-0400 Body temperature 98.06 [degF] No Pcp Required [facility] 06-26-2021 11:14-0400 Body weight 71.9 kg No Pcp Required [facility] 10-03-2020 11:52-0500 BMI (Body Mass Index) 24.14 kg/m2 [facility] Work Phone: 10-03-2020 11:52-0500 Body Temperature 97 [degF] Cally Sherlock [facility] Work Phone: 10-03-2020 11:52-0500 Body weight 67.84 kg Cally Sherlock [facility] Work Phone: 10-03-2020 11:52-0500 BP Diastolic 76 mm[Hg] Cally Sherlock [facility] Work Phone: Comment on above: Location: LUE; Position: Sitting 10-03-2020 11:52-0500 BP Systolic 104 mm[Hg] Cally Sherlock [facility] Work Phone: Comment on above: Location: LUE; Position: Sitting 10-03-2020 11:52-0500 BSA (Body Surface Area) 1.77 m2 Cally Sherlock [facility] Work Phone: 10-03-2020 11:52-0500 Height 167.64 cm Cally Sherlock [facility] Work Phone: 06-02-2020 14:04-0400 BMI (Body Mass Index) 22.76 kg/m2 Chica Wisdom KQ-OWIA-Susg [address] [facility] Work Phone: 06-02-2020 14:04-0400 Body Temperature 98.1 [degF] Chica Wisdom WP-QLSW-Rlcd [address] [facility] Work Phone: 06-02-2020 14:04-0400 Body weight 63.96 kg Chica Wisdom FA-CZDF-Kcze [address] [facility] Work Phone: 06-02-2020 14:04-0400 BP Diastolic 72 mm[Hg] Chica Wisdom IN-JVPM-Psed [address] [facility] Work Phone: 06-02-2020 14:04-0400 BP Systolic 104 mm[Hg] Chica Wisdom NA-HRTG-Lzrn [address] [facility] Work Phone: 06-02-2020 14:04-0400 BSA (Body Surface Area) 1.72 m2 Chica Wisdom UI-FZZB-Tzjw [facility] [facility] Work Phone: 06-02-2020 14:04-0400 Pulse (Heart Rate) 60 /min Chica Wisdom PG-SGOL-Pfqg [facility] [facility] Work Phone: 06-02-2020 14:04-0400 Pulse Oximetry 99 % Chica Wisdom WY-DUNO-Brlw [address] [facility] Work Phone: 06-02-2020 14:04-0400 Respiratory Rate 16 /min Chica Wisdom LX-PMIM-Ttoq [address] [facility] Work Phone: Encounters Encounter Date Encounter Type Care Provider Facility Start: 05-26-2024 End: 05-26-2024 ambulatory [facility] Start: 05-26-2024 End: 05-26-2024 Subsequent hospital visit by physician Sunny Lilly MD Work Phone: [facility] Start: 05-08-2024 End: 05-08-2024 ambulatory SHARIF Seth [facility] Start: 05-04-2024 End: 05-04-2024 ambulatory SUNNY Seth [facility] Start: 04-24-2024 End: 04-24-2024 Emergency department [facility] Start: 02-21-2024 End: 02-21-2024 Emergency department patient visit NO ASSIGNED PCP GENERIC PROVIDER [facility] Start: 02-21-2024 End: 02-21-2024 Emergency department patient visit Chacorta Erwin MD Work Phone: [facility] Comment on above: Trichomonas exposure (Primary Dx); Rash Start: 06-19-2023 End: 06-20-2023 Emergency department patient visit [facility] Start: 06-19-2023 End: 06-20-2023 Emergency department patient visit [facility] ED Comment on above: Multiple drug overdo se, accidental or unintentional, initial encounter (Primary Dx) Start: 05-29-2023 End: 05-29-2023 Emergency department patient visit [facility] Start: 01-09-2023 Office outpatient vi sit 15 minutes No [facility] Work Phone: Start: 01-09-2023 Patient encounter procedure No PCP None [facility] Work Phone: Start: 01-09-2023 ambulatory MD CALLY REDD [facility] Facility:[id number] Start: 12-19-[address] Chacorta Erwin Facility:[id number] Start: 11-22-2022 Patient encounter procedure No PCP None [facility] Work Phone: Start: 11-22-[address] Chacorta Erwin Facility:[id number] Start: 11-21-2022 End: 11-21-2022 Emergency department patient visit [facility] 05 Start: 11-20-2022 End: 11-20-2022 Emergency department patient visit Elinor [facility] 04 Start: 10-08-2022 End: 10-08-2022 Emergency department patient visit [facility] Start: 09-08-2022 End: 09-08-2022 Emergency department patient visit [facility] 01 Start: 06-26-2021 End: 06-26-2021 Emergency department patient visit Reta [facility] ED 25 Start: 10-03-2020 Patient encounter procedure Cally Meyer -[facility] Work Phone: Start: 09-05-2020 [facility] Work Phone: Start: 06-10-2020 Patient encounter procedure Cally Meyer -[facility] Work Phone: Start: 06-02-2020 Patient encounter procedure Chica Wisdom GC-GYQI-Hvgt [facility] Work Phone: Start: 10-26-2019 Patient encounter procedure Chica Wisdom JV-ZNCV-Tvjq [facility] Work Phone: Start: 08-25-2019 Patient encounter procedure Chica Wisdom XX-DTKA-Tnsk [facility] Work Phone: Start: 07-16-2019 Patient encounter procedure Chica Wisdom WK-XNNH-Ixcl [facility] [facility] Work Phone: Start: 06-11-2019 Patient encounter procedure Chica Wisdom KR-TTMP-Pfam [facility] Work Phone: Start: 04-22-2019 Patient encounter procedure Chica Wisdom IO-BFQI-Akar [facility] Work Phone: Start: 01-19-2019 End: 01-21-2019 Evaluation and management of inpatient KEYSHA BAH Facility:[facility] Start: 01-15-2019 Patient encounter procedure Chica Wisdom SV-EWFE-Zaeh [facility] Work Phone: Start: 01-08-2019 Patient encounter procedure Chica Wisdom QF-YIZM-Nwly [facility] Work Phone: Start: 01-01-2019 Patient encounter procedure Chica Wisdom AR-DNLM-Wauc [facility] Work Phone: Start: 12-25-2018 Patient encounter procedure KEYSHA BAH Facility:[facility] Start: 12-25-2018 Patient encounter procedure Chica Wisdom LN-YAZY-Tvpt [facility] Work Phone: Start: 12-18-2018 Patient encounter procedure Chica Wisdom KF-ZNIV-Puje [facility] Work Phone: Start: 12-11-2018 End: 12-11-2018 Patient encounter procedure KEYSHA WHITEUN Facility:[facility] Start: 12-04-2018 Patient encounter procedure Chica Wisdom CW-EVOC-Ugzf [facility] [facility] Work Phone: Start: 12-01-2018 End: 12-01-2018 Patient encounter procedure KEYSHA WHITEUN Facility:[facility] Start: 11-27-2018 Patient encounter procedure Chica Wisdom WQ-BADC-Wxxq [facility] [facility] Work Phone: Start: 11-13-2018 Patient encounter procedure KEYSHA WHITEUN Facility:[facility] Start: 11-13-2018 Patient encounter procedure KEYSHA WHITEUN Facility:7 Start: 10-24-2018 Patient encounter procedure KEYSHA WHITEUN Facility:[facility] Start: 10-16-2018 Patient encounter procedure KEYSHA BAH Facility:[facility] Start: 10-07-2018 Patient encounter procedure Chica Camposa VV-OBWV-Lmqb [facility] Work Phone: Start: 09-18-2018 Patient encounter procedure KEYSHA WHITEUN Facility:[facility] Start: 09-18-2018 Patient encounter procedure KEYSHA Dangelo GALUN Facility:7 Start: 09-18-2018 Patient encounter procedure Chica Wisdom DO-HJBK-Utjz [facility] [facility] Work Phone: Start: 09-09-2018 End: 09-09-2018 Emergency department patient visit NO FAMILY DOCTOR NO FAMILY DOCTOR Facility:[facility] Start: 07-30-2018 End: 07-30-2018 Emergency department patient visit NO FAMILY DOCTOR NO FAMILY DOCTOR Facility:[facility] Start: 05-20-2018 End: 05-20-2018 Emergency department patient visit BRAULIO LILLY Facility:[facility] Menarche No PCP None [facility] Work Phone: Patient encounter status No PCP None [facility] Work Phone: Procedures Date Procedure Procedure Detail Performing Clinician Start: 05-26-2024 Smr prim src wet cecilia nt nfct agt Sharif Ivory 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 TRACHOMATIS + N. GONORRHOEAE, AMPLIFIED NO GENERIC PROVIDER Start: 02-21-2024 TRICH VAGINALIS, AMPLIFIED NO GENERIC PROVIDER Start: 06-19-2023 Ecg routine ecg w/le ast 12 lds w/i&r Jose Littlejohn PA-C Work Phone: Start: 09-08-2022 End: 09-08-2022 EKG impression Kirk Roldan Start: 09-02-2020 Iadna chlamydia trachomatis amplified probe tq Cally Meyer Start: 09-02-2020 Trichomonas vaginali s [Presence] in Cervix by Wet preparation Cally Meyer Start: 01-19-2019 Antibody screen BRAULIO LILLY Comment on above: Performed By: #### U ARFX #### [facility] [address] [place] [address] Start: 09-18-2018 Antibody screen BRAULIO MAXX Comment on above: Performed By: #### T S3 #### [facility] [address] [place] [address] Bilateral tubal ligation No PCP None Dilation and curettage Claudia Wisdom Plan of Treatment Date Care Activity Detail Author Start: 2054 RSV patient s and/or patients aged 60+ years (1 - 1-dose 60+ series) RSV patients and/or patients aged 60+ years (1 - 1-dose 60+ series) [facility] Start: 2044 Zoster Vaccines (1 o f 2) Zoster Vaccines (1 of 2) [facility] Start: 11-13-2028 DTaP/Tdap/Td vaccine (3 - Td or Tdap) DTaP/Tdap/Td vaccine (3 - Td or Tdap) [facility] Start: 11-13-2028 DTaP/Tdap/Td Vaccine s (3 - Td or Tdap) DTaP/Tdap/Td Vaccines (3 - Td or Tdap) [facility] Start: 07-05-2024 Influenza vaccination Influenz a Vaccine (Season Ended) [facility] Start: 06-04-2024 Influenza vaccination Flu vaccine (# 1) [facility] Start: 07-05-2023 COVID-19 Vaccine ( season) COVID-19 Vaccine ( season) [facility] Start: 06-04-2023 Influenza vaccination Flu vaccine (# 1) [facility] Start: 02-20-2023 FUV, Provider: Cally Meyer, Status: Pen, Time: 9:15 AM FUV, Provider: Cally Meyer, Status: Pen, Time: 9:15 AM [facility] Work Phone: Start: 12-19-2022 FUV, Provider: Chacorta Erwin, Status: Pen, Time: 2:45 PM FUV, Provider: Chacorta Erwin, Status: Pen, Time: 2:45 PM [facility] Work Phone: Start: 09-08-2022 Syncope Syncope Date: 08-Sep-2022 [facility] Start: 2015 Screening for malign ant neoplasm of cervix [facility] Start: 2013 Hepatitis B Vaccines (1 of 3 - 19+ 3-dose series) Hepatitis B Vaccines (1 of 3 - 19+ 3-dose series) [facility] Start: 2012 Hepatitis C screening B ON [facility] Start: 2009 HIV screening HIV screen [facility] Start: 2007 Varicella vaccination Varicell a Vaccines (1 of 2 - 13+ 2-dose series) [facility] Start: 2006 Depression Screen Depression Screen [facility] Start: 1995 MMR Vaccines (1 of 1 - Standard series) MMR Vaccines (1 of 1 - Standard series) [facility] Start: 1995 Varicella vaccine (1 of 2 - 2-dose childhood series) Varicella vaccine (1 of 2 - 2-dose childhood series) [facility] Start: 01-01-1995 COVID-19 Vaccine (#1) COVID-19 Vacci ne (#1) [facility] Start: 1994 Hepatitis B vaccine (1 of 3 - 3-dose series) Hepatitis B vaccine (1 of 3 - 3-dose series) [facility] Start: 1994 HIV screening HIV Screening [facility] Start: 1994 Lipid panel Lipid Panel [facility] Start: 1994 Yearly Adult Physical Yearly Adult P hysical [facility] End: 02-21-2024 Chlamydia trachomatis and Neisseria gonorrhoeae DNA [Identifier] in Unspecified specimen by JOSE R with probe detection [facility] Service Area Work Phone: Comment on above: Once (Lab) for 1 Occ urrences starting 02/21/2024 until 02/21/2024 EKG 12 Lead EKG 12 Lead ECG STAT 06/19/2023 9:49 PM EDT [facility] Work Phone: End: 02-21-2024 Trichomonas vaginalis rRNA [Presence] in Unspecified specimen by JOSE R with probe detection [facility] Work Phone: Comment on above: Once (Lab) for 1 Occ urrences starting 02/21/2024 until 02/21/2024 Immunizations Immunization Date Immunization Notes Care Provider Fa elizabeth 11-13-2018 tetanus toxoid, redu wilson diphtheria toxoid, and acellular pertussis vaccine, adsorbed Chica Wisdom [id number]-[id number] [address] [facility] Work Phone: Comment on above: Series: 08-05-2015 influenza virus vacc ine, unspecified formulation No PCP None [facility] Work Phone: Comment on above: Series: 08-05-2015 influenza, seasonal, injectable Chica Wisdom BC-HORK-Pquu [address] [facility] Work Phone: 08-02-2015 tetanus toxoid, redu wilson diphtheria toxoid, and acellular pertussis vaccine, adsorbed Chica Wisdom NT-OKUI-Ookw [address] [facility] Work Phone: Comment on above: Series: Payers Date Payer Category Payer Unknown [id number] 2019 Unknown 2019 Unknown [id number] 1994 Unknown [id number] 2.16.8 [id number] 1994 Unknown [id number] 2.16.8 40.1.245096.3.579.2.355 1994 Unknown [id number] 2.16.8 40.1.273395.3.579.2.355 1994 Unknown [id number] 2.16.8 40.1.518528.3.579.2.355 1994 Unknown [id number] 2.16.8 40.1.634685.3.579.2.355 1994 Unknown [id number] 2.16.8 40.1.103309.3.579.2.355 1994 Unknown [id number] 2.16.8 40.1.530429.3.579.2.355 1994 Unknown [id number] 2.16.8 40.1.813100.3.579.2.355 1994 Unknown [id number] 2.16.8 40.1.745470.3.579.2.355 1994 Unknown [id number] 2.16.8 40.1.929646.3.579.2.355 1994 Unknown [id number] 2.16.8 40.1.285416.3.579.2.355 1994 Unknown [id number] 2.16.8 40.1.047032.3.579.2.355 1994 Unknown [id number] 2.16.8 40.1.000681.3.579.2.355 1994 Unknown [id number] 2.16.8 40.1.783641.3.579.2.1068 1994 Unknown [id number] 2.16.8 40.1.243718.3.579.2.1068 1994 Unknown [id number] 2.16.8 40.1.778329.3.579.2.1068 1994 Unknown [id number] 2.16.8 40.1.483608.3.579.2.1068 1994 Unknown [id number] 2.16.8 40.1.541069.3.579.2.1068 1994 Unknown [id number] 2.16. 840.1.259758.3.579.2.356 1994 Unknown [id number] 2.16.8 40.1.515301.3.579.2.182 1994 Unknown [id number] 2.16.8 40.1.232115.3.579.2.182 1994 Unknown [id number] 2.16.8 40.1.279048.3.579.2.182 1994 Unknown [id number] 2.16.84 0.1.031765.3.579.2.1246 1994 Unknown [id number] 2.16.8 40.1.634970.3.579.2.173 1994 Unknown [id number] 2.16.8 40.1.624337.3.579.2.173 1994 Unknown [id number] 2.16.8 40.1.655032.3.579.2.173 1994 Unknown [id number] 2.16.8 40.1.496533.3.579.2.173 Social History Date Type Detail Facility Assertion Tobacco smoking consumption unknown (finding) [id number]-Tllq [address] [facility] Work Phone: Tobacco smoking consumption unknown [facility] Start: 04-24-2024 Caffeine use Caffeine use [facility] Work Phone: Start: 10-08-2022 End: 02-21-2024 Tobacco smoking status NHIS Never smoked tobacco [facility] Start: 10-08-2022 End: 02-21-2024 Tobacco use and exposure Smokeless tobacco non-user [facility] Start: 10-08-2022 End: 04-24-2024 Alcohol intake Current drinker of alcohol (finding) [facility] Start: 06-20-2023 History SDOH Alcohol Frequency 3 [facility] Start: 06-20-2023 History SDOH Alcohol Std Drinks 2 [facility] Start: 1995 Sex Assigned At Not on file B ON [employer] Start: 02-21-2024 Alcoholic beverage intake Lifetime non-drinker (finding) [facility] Work Phone: Start: 04-24-2024 Gender identity Not on file [facility] Work Phone: Start: 02-11-2024 End: 02-21-2024 Exposure to SARS-CoV-2 (event) Not sure [facility] Work Phone: How often to you hav e a drink containing alcohol? Never [employer] How many standard drinks containing alcohol do you have on a typical day? Patient does not drink [employer] Medical Equipment Procedure Code Equipment Code Equipment Original Text Equipment Identifier Dates Clip, Oc[place], Tubal, Filshie Case [id number] Start: 06-18-2019 Comment on above: Description: Convert ed from [facility]. Please see archived information for full log information. Functional Status Date Assessment Result Facility NEGATED: Highlighted row Functional performance Functional status health issues are not documented Disease [id number] [facility] [facility] Work Phone: Mental Status Date Assessment Result Facility NEGATED: Highlighted row Cognitive function [Interpretation] Cognitive status health issues are not documented Disease [id number] [facility] [facility] Work Phone: Emergency department Note 02-21-2024 Radha Lima PA-C - 02/21/2024 10:38 AM EDT Note Date & Type Note Facility 02-21-2024 Emergency department Note HPI Chief Complaint Patient presents with Exposure to STD 'Here for STD check. One of my partners said they had something and I want to get the bumps on my back checked out too. 28-year-old female presents the emergency department for request of STD testing and treatment. She states she was exposed to trichomonas and she is having some discharge and an odor. She denies , citing a tubal ligation. She states she also went tanning yesterday and when she got out of the tanning bed, she noticed a rash in the low back area. It is not itchy or painful. She denies a rash anywhere else. Ildefonso Coma Scale Score: 15 Patient History Past Medical History: Diagnosis Date Anemia complicating , unspecified trimester ([facility]) Anemia of mother in Chlamydial infection, unspecified Positive Chlamyida test Encounter for screening for infections with a predominantly sexual mode of transmission Screen for STD (sexually transmitted disease) Gonococcal infection, unspecified Gonorrhea in female Missed ([facility]) Missed Other abnormal findings in urine Leukocytes in urine Other conditions influencing health status demise Other conditions influencing health status History of Other conditions influencing health status Menarche Personal history of other complications of , childbirth and the puerperium History of spontaneous Personal history of other diseases of the female genital tract 04/23/2019 History of vaginal discharge Personal history of other specified conditions History of nausea Past Surgical History: Procedure Laterality Date OTHER SURGICAL HISTORY 03/02/2021 Tubal ligation bilateral OTHER SURGICAL HISTORY 03/19/2019 Dilation and curettage No family history on file. 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 Constitutional: General: She is not in acute distress. HENT: Head: Atraumatic. Mouth/Throat: Mouth: Mucous membranes are moist. Pharynx: Oropharynx is clear. Eyes: Extraocular Movements: Extraocular movements intact. Conjunctiva/sclera: Conjunctivae normal. Pupils: Pupils are equal, round, and reactive to light. Cardiovascular: Rate and Rhythm: Normal rate and regular rhythm. Pulses: Normal pulses. Pulmonary: Effort: Pulmonary effort is normal. No respiratory distress. Breath sounds: Normal breath sounds. Abdominal: General: There is no distension. Palpations: Abdomen is soft. Tenderness: There is no abdominal tenderness. There is no guarding or rebound. Musculoskeletal: General: No deformity. Cervical back: Neck supple. Skin: General: Skin is warm and dry. Comments: Small cluster of pink papules at the top of the gluteal cleft. Nonspecific. Neurological: Mental Status: She is alert and oriented to person, place, and time. Mental status is at baseline. Cranial Nerves: No cranial nerve deficit. Sensory: No sensory deficit. Motor: No weakness. Psychiatric: Mood and Affect: Mood normal. Behavior: Behavior normal. ED Course & MDM Diagnoses as of 02/21/24 1055 Trichomonas exposure Rash Medical Decision Making 28-year-old female presents the emergency department for complaints of STD exposure. Denies STD exposure. She also noticed a rash at the top of the gluteal cleft after tanning yesterday. On my exam, she has a pink papular rash and a small cluster at the top of the gluteal cleft. It is nonspecific, may be reactionary. Patient treated here with IM Rocephin, oral doxycycline and Flagyl. Prescribed doxycycline for home and triamcinolone cream for her rash. Discussed results with patient and/or family/friend and recommended close follow up with primary care or specialist. Reviewed return precautions at length. I answered all questions. Procedure Procedures Radha Lima PA-C 02/21/24 1101 documented in this encounter [facility] Work Phone: Physician Emergency department Note 02-21-2024 Radha Lima PA-C - 02/21/2024 10:38 AM EDT Note Date & Type Note Facility 02-21-2024 Physician Emergency department Note HPI Chief Complaint Patient presents with Exposure to STD 'Here for STD check. One of my partners said they had something and I want to get the bumps on my back checked out too. 28-year-old female presents the emergency department for request of STD testing and treatment. She states she was exposed to trichomonas and she is having some discharge and an odor. She denies , citing a tubal ligation. She states she also went tanning yesterday and when she got out of the tanning bed, she noticed a rash in the low back area. It is not itchy or painful. She denies a rash anywhere else. Ildefonso Coma Scale Score: 15 Patient History Past Medical History: Diagnosis Date Anemia complicating , unspecified trimester ([facility]) Anemia of mother in Chlamydial infection, unspecified Positive Chlamyida test Encounter for screening for infections with a predominantly sexual mode of transmission Screen for STD (sexually transmitted disease) Gonococcal infection, unspecified Gonorrhea in female Missed ([facility]) Missed Other abnormal findings in urine Leukocytes in urine Other conditions influencing health status demise Other conditions influencing health status History of Other conditions influencing health status Menarche Personal history of other complications of , childbirth and the puerperium History of spontaneous Personal history of other diseases of the female genital tract 04/23/2019 History of vaginal discharge Personal history of other specified conditions History of nausea Past Surgical History: Procedure Laterality Date OTHER SURGICAL HISTORY 03/02/2021 Tubal ligation bilateral OTHER SURGICAL HISTORY 03/19/2019 Dilation and curettage No family history on file. 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 Constitutional: General: She is not in acute distress. HENT: Head: Atraumatic. Mouth/Throat: Mouth: Mucous membranes are moist. Pharynx: Oropharynx is clear. Eyes: Extraocular Movements: Extraocular movements intact. Conjunctiva/sclera: Conjunctivae normal. Pupils: Pupils are equal, round, and reactive to light. Cardiovascular: Rate and Rhythm: Normal rate and regular rhythm. Pulses: Normal pulses. Pulmonary: Effort: Pulmonary effort is normal. No respiratory distress. Breath sounds: Normal breath sounds. Abdominal: General: There is no distension. Palpations: Abdomen is soft. Tenderness: There is no abdominal tenderness. There is no guarding or rebound. Musculoskeletal: General: No deformity. Cervical back: Neck supple. Skin: General: Skin is warm and dry. Comments: Small cluster of pink papules at the top of the gluteal cleft. Nonspecific. Neurological: Mental Status: She is alert and oriented to person, place, and time. Mental status is at baseline. Cranial Nerves: No cranial nerve deficit. Sensory: No sensory deficit. Motor: No weakness. Psychiatric: Mood and Affect: Mood normal. Behavior: Behavior normal. ED Course & MDM Diagnoses as of 02/21/24 1055 Trichomonas exposure Rash Medical Decision Making 28-year-old female presents the emergency department for complaints of STD exposure. Denies STD exposure. She also noticed a rash at the top of the gluteal cleft after tanning yesterday. On my exam, she has a pink papular rash and a small cluster at the top of the gluteal cleft. It is nonspecific, may be reactionary. Patient treated here with IM Rocephin, oral doxycycline and Flagyl. Prescribed doxycycline for home and triamcinolone cream for her rash. Discussed results with patient and/or family/friend and recommended close follow up with primary care or specialist. Reviewed return precautions at length. I answered all questions. Procedure Procedures Radha Lima PA-C 02/21/24 1101 [facility] Work Phone: Progress note 10-16-2021 Note Date & Type Note Facility 10-16-2021 Note HNO ID: [id number] Author: Juan Antonio Esqueda PA-C Service: ? Author Type: Physician Nursing Clinical Director Type: Progress Notes Filed: 10/16/2021 10:24 AM Note Text: This note was created using NoteWriter. Subjective Juliette Hernández is a 26 year old female. [facility] VISIT CC: 26 year old female Patient presents with: Urinary Problem: burning urgency odor x 4 days HPI- Juliette is a 26 year old female who presents for evaluation of the above chief complaint It began 4 days ago as dysuria with urgency and frequency and odor. Patient states this feels similar to when she had trichomonas in the past. Dysuria: Yes Hematuria: No Frequency: Yes Urgency: Yes Incontinence: No Suprapubic pressure: Yes Low back pain: No Flank pain: No Hx UTI: Yes Hx Pyelo: No Hx stones: No Vaginal symptoms: yes, states some vaginal irritation and itching. Patient states she recently had unprotected sex with a previous partner who gave her trichomonas in the past. She states this feels similar to when she had trichomonas before. She denies fever, chills, nausea, vomiting, diarrhea, genital lesions or rashes. Patient's last menstrual period was 10/09/2021. No other acute complaints or symptoms at this time. No past medical history on file. PAST SURGICAL HISTORY Procedure Laterality Date - EGD 08/22/16 /Celiac disease ALLERGIES Patient has no known allergies. MEDICATIONS No prescriptions on file. No family history on file. Social History Tobacco Use - Smoking status: Never Smoker - Smokeless tobacco: Not on file Substance Use Topics - Alcohol use: No - Drug use: No Review of Systems Constitutional: Negative for chills and fever. Gastrointestinal: Positive for abdominal pain (Suprapubic pressure). Negative for diarrhea, nausea and vomiting. Genitourinary: Positive for dysuria, frequency and urgency. Negative for decreased urine volume, enuresis, flank pain, genital sores, hematuria, vaginal bleeding, vaginal discharge and vaginal pain. Musculoskeletal: Negative for back pain. Skin: Negative for rash. All other systems reviewed and are negative. Objective BP 117/66 Pulse 64 Temp 36.7 ?C (98 ?F) (Temporal) Resp 20 Wt 70.1 kg (154 lb 9.6 oz) LMP 10/09/2021 SpO2 100% BMI 24.95 kg/m? Physical Exam Vitals reviewed. Exam conducted with a crew truck driver present (Latia Pantoja MA present for exam). Constitutional: General: She is not in acute distress. Appearance: Normal appearance. She is well-developed, well-groomed and normal weight. She is not ill-appearing or toxic-appearing. HENT: Head: Normocephalic. Cardiovascular: Rate and Rhythm: Normal rate and regular rhythm. Heart sounds: Normal heart sounds. Pulmonary: Effort: Pulmonary effort is normal. Breath sounds: Normal breath sounds and air entry. Abdominal: General: Abdomen is flat. Bowel sounds are normal. Palpations: Abdomen is soft. Tenderness: There is no abdominal tenderness. There is no right CVA tenderness, left CVA tenderness, guarding or rebound. Genitourinary: General: Normal vulva. Exam position: Supine. Labia: Right: No rash, tenderness, lesion or injury. Left: No rash, tenderness, lesion or injury. Vagina: No signs of injury and foreign body. Vaginal discharge (thin clear to yan) present. No erythema, tenderness, bleeding, lesions or prolapsed vaginal lewis. Cervix: No lesion or erythema. Comments: Exam done with patient consent Skin: General: Skin is warm and dry. Findings: No rash. Neurological: Mental Status: She is alert and oriented to person, place, and time. Psychiatric: Mood and Affect: Mood normal. Behavior: Behavior is cooperative. Results for orders placed or performed in visit on 10/16/21 UA DIP, URINE (POC) Result Value Ref Range GLUCOSE UA (POCT) Negative Negative mg/dL BILIRUBIN UA (POCT) Negative Negative KETONE UA (POCT) Negative Negative mg/dL SPECIFIC GRAVITY UA (POCT) 1.025 1.005 - 1.030 HEMOGLOBIN/BLOOD UA (POCT) Trace-intact (A) Negative PH UA (POCT) 7.0 4.5 - 8.0 PROTEIN UA (POCT) Negative Negative mg/dL UROBILINOGEN UA (POCT) 0.2 Normal E.U./dL NITRITE UA (POCT) Negative Negative LEUKOCYTES UA (POCT) Negative Negative COLOR UA (POCT) Other CLARITY UA (POCT) Slightly Cloudy HCG QUAL UR B/O Result Value Ref Range , Urine neg neg - pos Quality Check Yes yes/no Assessment and Plan ASSESSMENT/PLAN: 1. Screening for STD (sexually transmitted disease) - ICD9: V74.5, ICD10: Z11.3 (primary diagnosis) - HCG QUAL UR B/O - GC/CHLAMYDIA DNA DET - SULTANA / TRICHOMONAS AMPLIFICATION - BACTERIAL VAGINOSIS AMPLIFICATION -for complete STD testing including HIV, syphilis, and hepatitis see your PCP -encouraged safe sex practices - avoid sexual contact until results of tests are complete. If any result is positive, please notify all partners and finish the medications called in for you. Abstain from se (more content not included)... [facility] Progress note 07-15-2021 Note Date & Type Note Facility 07-15-2021 Note HNO ID: [id number] Author: Rubina Lala PA-C Service: ? Author Type: Physician Nursing Clinical Director Type: Progress Notes Filed: 07/15/2021 1:58 PM Note Text: This note was created using Eventyard. Subjective Juliette Hernández is a 26 year old female. Covid exp over last 2 days, rhinorrhea, sore throat. Fatigue, HERNANDEZ. Fatigue, no period since May, has tubal. Patient comes in complaining of a Covid exposure about 2 days ago. She states that she is having a sore throat, rhinorrhea, fatigue and headaches since about July 11. She just found out a few people at work have tested positive for Covid. He denies any chest pain, shortness of breath, dizziness or lightheadedness. She also complains of not having a menstrual period since May. She has a tubal ligation. She states that she has been very fatigued and wants to have a test. Denies any vaginal bleeding or abnormal discharge, denies any abdominal pain flank pain nausea or vomiting. Review of Systems Constitutional: Positive for fatigue. Negative for activity change, appetite change, chills, fever and unexpected weight change. HENT: Positive for postnasal drip, rhinorrhea and sore throat. Negative for congestion, ear discharge, ear pain, sinus pressure, sinus pain, sneezing, trouble swallowing and voice change. Respiratory: Positive for cough. Negative for shortness of breath, wheezing and stridor. Cardiovascular: Negative for chest pain and palpitations. Gastrointestinal: Negative for abdominal pain, diarrhea, nausea and vomiting. Genitourinary: Positive for menstrual problem. Negative for dysuria, flank pain, hematuria, vaginal bleeding, vaginal discharge and vaginal pain. Musculoskeletal: Negative for arthralgias and myalgias. Skin: Negative for color change, pallor, rash and wound. Neurological: Positive for headaches. Negative for dizziness, tremors, syncope, weakness and light-headedness. Objective BP 117/75 Pulse 71 Temp 36.5 ?C (97.7 ?F) (Temporal) LMP 05/07/2021 (Within Weeks) SpO2 100% Physical Exam Vitals and nursing note reviewed. Constitutional: General: She is not in acute distress. Appearance: She is well-developed. She is not diaphoretic. HENT: Head: Normocephalic and atraumatic. Nose: Nose normal. Mouth/Throat: Pharynx: No oropharyngeal exudate or posterior oropharyngeal erythema. Eyes: General: No scleral icterus. Right eye: No discharge. Left eye: No discharge. Conjunctiva/sclera: Conjunctivae normal. Pupils: Pupils are equal, round, and reactive to light. Neck: Trachea: No tracheal deviation. Cardiovascular: Rate and Rhythm: Normal rate and regular rhythm. Heart sounds: Normal heart sounds. No murmur heard. No friction rub. No gallop. Comments: Radial pulse 2+ and equal Pulmonary: Effort: Pulmonary effort is normal. No respiratory distress. Breath sounds: Normal breath sounds. No wheezing. Chest: Chest wall: No tenderness. Abdominal: General: Bowel sounds are normal. There is no distension. Palpations: Abdomen is soft. There is no mass. Tenderness: There is no abdominal tenderness. There is no guarding or rebound. Hernia: No hernia is present. Musculoskeletal: General: No tenderness or deformity. Normal range of motion. Cervical back: Normal range of motion and neck supple. Lymphadenopathy: Cervical: No cervical adenopathy. Skin: General: Skin is warm and dry. Coloration: Skin is not pale. Findings: No erythema or rash. Neurological: Mental Status: She is alert and oriented to person, place, and time. Comments: No facial droop. No focal motor deficits of b/l upper and lower extremities. No tremor. Normal speech without slurring. Psychiatric: Mood and Affect: Mood normal. Behavior: Behavior normal. Assessment and Plan 1. Irregular menses -LMP May, fatigued, requested test - HCG QUAL UR B/O (-) negative 2. Close exposure to COVID-19 virus -HERNANDEZ, ST, congestion, fatigue. Known exposure 2 days ago -HDS, well hydrated, nontoxic. VSS. -I feel appropriate for continued outpatient management with strict precautions. -Discussed alternating APAP/Motrin and pushing po fluids -Discussed if change in condition/worsening, high fevers, SOB, CP, dizzy, LH, feeling like you are going to pass out, decreased po intake, decreased urination or any concern of worsening condition to present promptly to the ER -Was given verbal and written information on home isolation while awaiting COVID results. - 2019 CORONAVIRUS [facility] Evaluation note Note Date & Type Note Facility Evaluation note Diagnosis Multiple drug overdose, accidental or unintentional, initial encounter- Primary documented in this encounter [facility] Evaluation note Note Date & Type Note Facility Evaluation note Diagnosis Trichomonas exposure- Primary Rash Rash and other nonspecific skin eruption documented in this encounter [facility] Work Phone: History of Present illness Narrative Note Date & Type Note Facility History of Present illness Narrative New Patient Visit:CC: Left proximal first toe fractureHPI: 27-year-old female presents here today with complaints of pain discomfort to the left big toe. She points to the front of her foot and great toe as area of most pain discomfort. She states that she had tripped stubbed her toePain and discomfort. She was seen and evaluated 3 days ago at where she was diagnosed with a nondisplaced proximal great toe fracture. She presents here today for further evaluation. She denies any numbness tingling or burning. She denies any open cuts or sores. She has difficulty ambulating with the cast shoe from the ER. She denies any previous history of injury or trauma to the left big toe in the past.Review of Systems, Past Medical History, Social History, and Family History documented and initialed on the patient information form dated 11/22/2022.Physical Exam:GENERAL: Patient is awake, alert, and oriented to person place and time. Patient appears well nourished and well kept. Affect Calm, Not Acutely Distressed.HEENT: Normocephalic, Atraumatic, EOMICARDIOVASCULAR: Hemodynamically stable.RESPIRATORY: Normal respirations with unlabored breathing.NEURO: Gross sensation intact to the lower extremities bilaterally.Extremity: Left great toe exam: Inspection no redness warmth erythema. Bruising and swelling is noted. Exquisite tenderness at the first MTP joint, minimal pain at the IP joint. Good distal cap refill is noted. Antalgic gait secondary to pain. Negative midfoot squeeze.Diagnostics: Previous plain films reviewedProcedure: NoneAssessment: Left proximal first phalanx fracture with intra-articular componentPlan: Discussed the nonoperative nature of this injury with the patient accepts. We will offer her short walking boot for more protection given young ones in the home and pets. We will see her back in 3 weeks for repeat evaluation, repeat x-rays 3 views of the left big toe. May consider transition to a postop shoe possibly at that time. Initially discussed the ability to provide pain medication for the patient, however after checking OARRS, it was evident the patient is currently in pain management on buprenorphine and naloxone. We would not be able to provide her with pain medication, thus an anti-inflammatory 800 mg ibuprofen prescription was sent to her pharmacy. She can supplement this with ice elevation and Tylenol as well.At the conclusion of the visit there were no further questions by the patient/family regarding their plan of care. Patient was instructed to call or return with any issues, questions, or concerns regarding their injury and/or treatment plan described above.This note was prepared using voice recognition software. The details of this note are correct and have been reviewed, and corrected to the best of my ability. Some grammatical areas may persist related to the [employer] Focus softwareChacorta Erwin MDOffice: . [facility] Work Phone: History of Present illness Narrative Note Date & Type Note Facility History of Present illness Narrative Patient has sexual pain associated with myofascial etiology previously discussed multiple timesWorse now reports doing Kegel exercises discussed that this exacerbates muscle tension as it does not include the relaxation phase reputable muscles causes tenderness worsening of painDiscussed physical therapyDiscussed trigger point injection Botox injection [place] therapy [facility] Work Phone: Hospital Discharge instructions Attachments Note Date & Type Note Facility Hospital Discharge instructions The following attachments cannot be sent through Care Everywhere.Drug Overdose: Multidrug ([place])documented in this encounter [facility] Discharge instructions Attachments Note Date & Type Note Facility Hospital Discharge instructions The following attachments cannot be sent through Care Everywhere.Skin Rash ED ([place])Sexually transmitted infections ([place])documented in this encounter [facility] Work Phone: Summary Purpose Family History No Family History Records FoundUnknown Family Member Name Dates Details Family history of cardiac di sorder(V17.49, Z82.49) Comments:Other Status:Active Mother Name Dates Details No pertinent family history( V49.89, Z78.9) Status:Active Father Name Dates Details No pertinent family history( V49.89, Z78.9) Status:Active Unknown Family Member Name Dates Details Family history of cardiac di sorder(V17.49, Z82.49) Comments:Other Status:Active Mother Name Dates Details No pertinent family history( V49.89, Z78.9) Status:Active Father Name Dates Details No pertinent family history( V49.89, Z78.9) Status:Active Unknown Family Member Name Dates Details Family history of cardiac di sorder: Other(V17.49, Z82.49) Status:Active No pertinent family history: Mother, Father(V49.89, Z78.9) Status:Active Unknown Family Member Name Dates Details Family history of cardiac di sorder: Other(V17.49, Z82.49) Status:Active No pertinent family history: Mother, Father(V49.89, Z78.9) Status:Active Unknown Family Member Name Dates Details Family history of cardiac di sorder: Other(V17.49, Z82.49) Status:Active No pertinent family history: Mother, Father(V49.89, Z78.9) Status:Active Advance Directives No Advanced Directives Records FoundNo Advanced Directives Records FoundNo Advanced Directives Records FoundNo Advanced Directives Records FoundNo Advanced Directives Records FoundNo Advanced Directives Records FoundNo Advanced Directives Records FoundNo Advanced Directives Records Found Reason for Referral * UTI (urinary tract infection) * UTI (urinary tract infection) * OverdoseOverdose Chief Complaint * Lt big toe fx 11/19 * xrays at * Est pt here for pain with intercourse and with insert of tampon * crew truck driver mariam rma * Est pt here for pain with intercourse and with insert of tampon * crew truck driver mariam rma Additional Source Comments INFORMATION SOURCE (unrecogn ized section and content) DATE CREATED AUTHOR 01/26/2019 [facility] DATE CREATED AUTHOR AUTHOR'S ORGANIZ ATION 12/11/2021 [facility] DATE CREATED AUTHOR AUTHOR'S ORGANIZ ATION 01/03/2023 [facility] DATE CREATED AUTHOR AUTHOR'S ORGANIZ ATION 01/11/2023 [facility] DATE CREATED AUTHOR AUTHOR'S ORGANIZ ATION 01/12/2023 [facility] DATE CREATED AUTHOR AUTHOR'S ORGANIZ ATION 06/21/2023 [facility] DATE CREATED AUTHOR AUTHOR'S ORGANIZ ATION 02/22/2024 [facility] DATE CREATED AUTHOR AUTHOR'S ORGANIZ ATION [facility]20[facility] <item><item><item><item><item> Privacy Markings (unrecogniz ed section and content) Section Author: Leora King PROHIBITION ON REDISCLOSURE OF CONFIDENTIAL INFORMATION This notice accompanies a disclosure of information concerning a client made to you with the consent of such client. Section Author: Leora King PROHIBITION ON REDISCLOSURE OF CONFIDENTIAL INFORMATION This notice accompanies a disclosure of information concerning a client made to you with the consent of such client. Section Author: Leora King PROHIBITION ON REDISCLOSURE OF CONFIDENTIAL INFORMATION This notice accompanies a disclosure of information concerning a client made to you with the consent of such client. Section Author: Leora King PROHIBITION ON REDISCLOSURE OF CONFIDENTIAL INFORMATION This notice accompanies a disclosure of information concerning a client made to you with the consent of such client. Section Author: Leora King PROHIBITION ON REDISCLOSURE OF CONFIDENTIAL INFORMATION This notice accompanies a disclosure of information concerning a client made to you with the consent of such client. Reason for Visit (unrecogniz ed section and content) Reason Comments Drug Overdose Reason Comments Exposure to STD 'Here for STD check. One of my partners said they had something and I want to get the bumps on my back checked out too. Scheduled Active and Recently Administ ered Medications (unrecognized section and content) Medication Order 06/18/2023 06/19/2023 06/20/2023 sodium chloride 0.9 % bolus 1,000 mL (COMPLETED) 1,000 mL (15.7 mL/kg), IntraVENous, at 1,935.5 mL/hr, Administer over 31 Minutes, ONCE, On Sat06/19/23 at 2223, For 1 dose 2228 (New Bag - Provider: Angelica Skinner RN) 0004 (Stopped - Provider: Sheila Edwards, RN) Scheduled Medication Order 02/19/2024 02/20/2024 02/21/2024 cefTRIAXone (Rocephin) vial 500 mg (COMPLETED) 500 mg, intramuscular, Once, On Sat02/21/24 at 1055, For 1 dose, Suspected Indication (Select all that apply): Sexually Transmitted Infection, Type of Therapy: Empiric 1116 (Given - Provid er: Elisa Vanessa LPN) doxycycline (Vibra-Tabs) tablet 100 mg (COMPLETED) 100 mg, oral, Once, On Sat02/21/24 at 1055, For 1 dose, Administer with meals to decrease GI upset; take with at least 8 ounces (large glass) of water, do not lie down for 30 minutes after., Suspected Indication (Select all that apply): Sexually Transmitted Infection, Type of Therapy: Empiric 1116 (Given - Provid er: Elisa Vanessa LPN) metroNIDAZOLE (Flagyl) tablet 1,500 mg (COMPLETED) 1,500 mg, oral, Once, On Sat02/21/24 at 1110, For 1 dose, Administer with food or snack. Do NOT give with alcohol or drug products with significant alcohol content., Suspected Indication (Select all that apply): Sexually Transmitted Infection, Type of Therapy: Empiric 1116 (Given - Provid er: Elisa Vanessa LPN) metroNIDAZOLE (Flagyl) tablet 500 mg (COMPLETED) 500 mg, oral, Once, On Sat02/21/24 at 1055, For 1 dose, Administer with food or snack. Do NOT give with alcohol or drug products with significant alcohol content., Suspected Indication (Select all that apply): Sexually Transmitted Infection, Type of Therapy: Empiric 1116 (Given - Provid er: Elisa Vanessa LPN) Care Teams (unrecognized sec tion and content) Private Client Advisor Relationship Specialty Start Date End Date Chacorta Erwin MD [address] [facility], [address] [place] [address] [id number] PCP - [facility] PCP 08/04/23 Generic Provider, [place] [address] PCP - General Label Sewer 02/21/24 Private Client Advisor Relationship Specialty Start Date End Date Sunny Lilly MD [address] [address] PCP - General Neurology 06/25/23 FOR RECORDS PERTAINING TO PATIENTS WHO ARE OR HAVE BEEN ENROLLED IN A CHEMICAL DEPENDENCY/SUBSTANCEABUSE PROGRAM, SOME INFORMATION MAY BE OMITTED. This clinical summary was aggregated from multiple sources. Caution should be exercised in using it in the provision of clinical care. This summary normalizes information from multiple sources, and as a consequence, information in this document may materially change the coding, format and clinical context of patient data. In addition, data may be omitted in some cases. CLINICAL DECISIONS SHOULD BE BASED ON THE PRIMARY CLINICAL RECORDS. [employer] [facility]. provides no warranty or guarantee of the accuracy or completeness of information in this document.
[2024-07-26 11:42] VITALS: BP 113/50; PULSE 63; O2SAT 97; BMI 26.6
[2024-07-26 11:59] LABS: Bilirubin Urine NEGATIVE (NEGATIVE); Blood Urine NEGATIVE (NEGATIVE); Clarity Urine CLEAR (CLEAR); Color Urine LT. YELLOW (YELLOW); Glucose Urine UA NEGATIVE (NEGATIVE); Ketones Urine NEGATIVE (NEGATIVE); Leukocyte Esterase Urine SMALL (NEGATIVE); Nitrite Urine NEGATIVE (NEGATIVE); Protein Urine NEGATIVE (NEG/TRACE); Specific Gravity Urine <=1.005 (1.005-1.025); Urobilinogen Urine 0.2 EU/dL (0.2-1.0); pH Urine 6.5 (5.0-9.0)
[2024-07-26 12:00] LABS: HCG Qualitative Urine* NEGATIVE (NEGATIVE); Internal Control Within Normal Limits
--- NOTE | 2024-07-26 12:19 | ED.FEMALEGU1 ---
HPI - Female Genitourinary General Chief complaint: Urogenital-Female Stated complaint: UTI SYMPTOMS Time Seen by Provider: 07/26/24 11:51 Source: patient Mode of arrival: walk-in History of Present Illness HPI Narrative: 29-year-old female presented to the emergency department for dysuria and frequency. She has had it for 2 days and believes she may have a UTI. No back pain and she complains of minimal abdominal pain. LMP was about 3 weeks ago. No fever or vomiting. Related Data Previous Rx's ?Medication ?Instructions ?Recorded nitrofurantoin 100 mg PO BID 7 days #14 caps 07/26/24 monohydrate/macrocrystals 100 mg capsule (Macrobid) Allergies Allergy/AdvReac Type Severity Reaction Status Date / Time No Known Drug Allergies Allergy Verified 06/28/24 18:12 Review of Systems ROS Narrative A ten point review of systems is negative except as noted above. PFSH PFSH Social History Little interest or pleasure in doing things: not at all Feeling down, depressed, or hopeless: not at all Exam Narrative Exam Narrative: Nurses note and vital signs reviewed and patient is not hypoxic. General: The patient appears well and in no apparent distress. Patient is resting comfortably on cart. Skin: Warm, dry, no pallor noted. There is no rash noted. Head: Normocephalic, atraumatic Eye: Normal conjunctiva, no drainage Ears, Nose, Mouth, and Throat: oral mucosa is moist. Nares patent. Cardiovascular: Regular Rate and Rhythm Respiratory: Patient is in no distress, no accessory muscle use, lungs are clear to auscultation, no wheezing, rales or rhonchi Back: non-tender GI: Nondistended, not tender Musculoskeletal: No joint swelling Neurological: A&O, normal speech Psychiatric: Cooperative Constitutional Vital Signs, click to edit/add: Last Vital Signs Pulse 63 07/26/24 11:42 Resp 16 07/26/24 11:42 BP 113/50 07/26/24 11:42 Pulse Ox 97 07/26/24 11:42 Course Vital Signs Vital signs: Vital Signs Pulse Rate 63 07/26/24 11:42 Respiratory Rate 16 07/26/24 11:42 Blood Pressure 113/50 07/26/24 11:42 Pulse Oximetry 97 07/26/24 11:42 Pulse Rate 63 07/26/24 11:42 Respiratory Rate 16 07/26/24 11:42 Blood Pressure 113/50 07/26/24 11:42 Pulse Oximetry 97 07/26/24 11:42 MDM - Female Genitourinary MDM Narrative Medical decision making narrative: The patient has just a few white cells in her urine but her symptoms are very consistent with UTI and she will be placed on Macrobid. Treatment diagnosis and follow-up were discussed with the patient. Differential Diagnosis Differential diagnosis: Likely urinary tract infection and other (Cystitis, pyelonephritis) Lab Data Attestation: I reviewed the patient's lab results. Labs: Lab Results 07/26/24 Range/Units 11:48 Urine Color Lt. yellow (YELLOW) Urine Clarity Clear (CLEAR) Urine pH 6.5 (5.0-9.0) Ur Specific [place] <=1.005 A (1.005-1.025) Urine Protein Negative (NEG/TRACE) mg/dL Urine Glucose (UA) Negative (NEGATIVE) mg/dL Urine Ketones Negative (NEGATIVE) mg/dL Urine Occult Blood Negative (NEGATIVE) Urine Nitrite Negative (NEGATIVE) Urine Bilirubin Negative (NEGATIVE) Urine Urobilinogen 0.2 (0.2-1.0) EU/dL Ur Leukocyte Esterase Small A (NEGATIVE) Urine RBC None seen (0-2) #/HPF Urine WBC 2-5 A (NONE SEEN) #/HPF Ur Squamous Epith Cells Moderate A (NONE/RARE) #/LPF Urine Crystals None seen (None Seen) #/HPF Urine Bacteria Trace A (NONE SEEN) #/HPF Urine Casts None seen (NONE SEEN) #/LPF Urine Mucus None seen (NONE SEEN) Urine HCG, Qual Negative (NEGATIVE) Discharge Plan Discharge Chief Complaint: Urogenital-Female Clinical Impression: Urinary tract infection Patient Disposition: Home, Self-Care Time of Disposition Decision: 12:45 Condition: Good Mode of Transportation: Private Vehicle Prescriptions / Home Meds: New nitrofurantoin monohyd/m-cryst [Macrobid] 100 mg capsule 100 mg PO BID 7 Days Qty: 14 0RF Rx Instructions: must administer with a meal/food Print Language: Latvian Instructions: Urinary Tract Infection in Women (ED) Referrals: Physician,Non-Staff, MD [Primary Care Provider] - 1 week
[2024-07-26 12:37] LABS: Bacteria Urine TRACE #/HPF (NONE SEEN); Cast Seen? NONE SEEN #/LPF (NONE SEEN); Crystals Seen? None Seen #/HPF (None Seen); Mucus Urine NONE SEEN (NONE SEEN); RBC Urine NONE SEEN #/HPF (0-2); Squamous Epithelial Cell Urine MODERATE #/LPF (NONE/RARE)
== END 2024-07-26 12:56 | disposition home or self-care (01) ==
PROVIDERS: Emergency Provider Emergency Medicine
DX: N39.0 Urinary tract infection, site not specified (principal)
CPT/HCPCS: 81001; 84703; 99283

== ENCOUNTER 2024-12-16 08:51 | Inpatient (IN) | payer OTHER, SELFPAY ==
[2024-12-16] VITALS (51 sets, daily range): BP systolic 106–151; BP diastolic 51–109; PULSE 54–90; TEMP 36.6–36.9; O2SAT 90–100; BMI 29.1; BMI 31.0
--- NOTE | 2024-12-16 09:06 | ECG_ITS ---
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
--- NOTE | 2024-12-16 09:06 | XR_ITS ---
The [address] [address] Patient Name: YANI HAGAN MRN: [id number] date: 1995 Sex: F Assigned Patient Location: ER Current Patient Location: ER Accession/Order Number: [id number] Exam Date: 12/16/2024 09:31 Report Date: 12/16/2024 10:08 At the request of: MICHELINE STOCKTON Procedure: XR chest 2V EXAMINATION: XR chest 2V HISTORY: cp COMPARISON: No relevant comparison available. FINDINGS: LUNGS: Right apical pneumothorax 2.9 cm in thickness. Mild right basilar atelectasis. No pleural effusion. VASCULATURE: No increased pulmonary vasculature. PLEURA: See above. CARDIAC: No cardiomegaly or cardiac silhouette abnormality. MEDIASTINUM: No visible mass or adenopathy. BONES: No fracture or visible bone lesion. OTHER: Negative. XR/XR chest 2V IMPRESSION: 1. Large right apical pneumothorax 2.9 cm in thickness. Findings discussed with Dr. Stockton via telephone prior to dictation. Electronically authenticated by: KEYSHA MORROW Date: 12/16/2024 10:08
--- OUTSIDE RECORDS SUMMARY | 2024-12-16 09:16 | XMS_ITS | CCD ---
Author Organization [facility] Care Team Providers Care Custom Stock Maker Name Role Phone MAXX, BRAULIO Primary Care Unavailable DIYA ROWLEY Attending Unavailable NO FAMILY DOCTOR, NO FAMILY [...] None, No PCP Unavailable Unavailable Unavailable Unavailable Jamar, Dr. Kirk Roberson Attending Unavailab le Rip, Dr. Chacotra Tatum Attending U navailable Rip, Dr. Chacorta Tatum Attending U navailable Mitesh, Kim Elinor Piedra Attending Unavail able Franky, Ms. Lilian Hassan Attending Zayda vailable MD CALLY MEYER Referring Unav ailable MD CALLY MEYER Attending Unav ailable Unavailable Primary Care Provider UnavailDAWSON Carter Attending Unavailable Chacorta Erwin MD Unavailable [phone] Generic Provider MD, No Assigned Pcp Primary Car e Provider Unavailable GENERIC PROVIDER, NO ASSIGNED PCP Primary Care Unavailable Sunny Lilly MD Primary Care Provider [phone] GUANAKOADRIANA LOVEEST Referring Unavailable MAXX, KHALID Primary Care Unavailable GUANAKO, SHARIF Referring Unavailable MAXX, KHALID Primary Care Unavailable GUANAKO, SHARIF Referring Unavailable MAXX, KHALID Primary Care Unavailable GUANAKO, SHARIF Referring Unavailable MAXX, KHALID Primary Care Unavailable GUANAKO, SHARIF Referring Unavailable MAXX, KHALID Primary Care Unavailable MAXX, KHALID Primary Care Unavailable DANIELLE SWANSON Attending Unavailable GUANAKO, SHARIF Referring Unavailable MAXX, KHALID Primary Care Unavailable GUANAKO, SHARIF Referring Unavailable MAXX, KHALID Primary Care Unavailable Medications Current Medications Medication Drug Class(es) Dates Sig (Normalized) Sig (Original) amoxicillin 875 mg / clavulanate 125 mg oral tablet (4 sources) Penicillin-class Antibacterial take 1 tablet by mouth twice daily amoxicillin-clavu lanate (AUGMENTIN) 875-125 MG per tablet Take 1 tablet by mouth 2 times daily Active clonazePAM 1 mg oral tablet (4 sources) Benzodiazepine take 1 tablet by mouth twice daily as needed clonazePAM (KLONOPIN) 1 MG tablet Take 1 tablet by mouth 2 times daily as needed. Max Daily Amount: 2 mg Active cloNIDine hydrochloride 0.1 mg oral tablet (4 sources) Central alpha-2 Adrenergic Agonist take 1 tablet by mouth three times daily cloNIDine (CATAPRES) 0.1 MG tablet Take 1 tablet by mouth 3 times daily Active docusate sodium 100 mg oral capsule (5 sources) Start: 11-29-2020 take 1 capsule by mouth twice daily Colace 100 mg oral capsule ; 1 cap(s) orally 2 times a day Quantity: 60 Refills: 1 Ordered: 29-Nov-2020 MitchCally Start: 29-Nov-2020 Generic Substitution Allowed Comments: Medication [...] Substitution Allowed Multiple Vitamin (MULTIVITAMIN ADULT PO) (4 sources) Multiple Vitamin (MULTIVITAMIN ADULT PO) Take by mouth Active Multiple Vitamin (MULTIVITAMIN ADULT PO) Take by mouth 0 Active naloxone hydrochloride 40 mg/ml nasal spray (3 sources) Opioid Antagonist Start: 09-08-2022 naloxone 4 mg/0.1 mL nasal spray ; 4 milligram(s) intranasally once a day both nostrils one time as needed for lethargy and suspected overdose Quantity: 1 Refills: 0 Ordered: 08-Sep-2022 Kirk Roldan Start: 08-Sep-2022 Generic Substitution Allowed Comments: For the nose. Comment on above: For the nose. ondansetron 4 mg disintegrating oral tablet (5 sources) Serotonin-3 Receptor Antagonist Start: 06-26-2021 take 1 tablet by mouth every eight hours ondansetron 4 mg oral tablet, disintegrating ; 1 tab(s) orally every 8 hours Quantity: 21 Refills: 0 Ordered: 26-Jun-2021 Reta Sanchez Start: 26-Jun-2021 Generic Substitution Allowed pramipexole dihydrochloride 0.125 mg oral tablet (4 sources) Nonergot Dopamine Agonist take 1 tablet by mouth three times daily pramipexole (MIRAPEX) 0.125 MG tablet Take 1 tablet by mouth 3 times daily Active sertraline 50 mg oral tablet (3 sources) Serotonin Reuptake Inhibitor take 1 tablet by mouth once daily Zoloft 50 mg oral tablet ; 1 tab(s) orally once a day Quantity: 0 Refills: 0 Ordered: 17-Jun-2019 Annette Melchor Status: Other Generic Substitution Allowed triamcinolone acetonide 1 mg/ml topical cream (1 source) Corticosteroid Start: 02-21-2024 End: 03-02-2024 triamcinolone (Kenalog) 0.1 % cream Indications: Rash [...] days Quantity: 28 Refills: 0 Ordered: 01-Aug-2019 Diya Rowley Start: 01-Aug-2019 End: 14-Aug-2019 Status: Other [...] 09-May-2020 Active take 1 tablet by cecilia once daily FLUoxetine 20 mg oral tablet ; 1 tab(s) orally once a day Quantity: 0 Refills: 0 Ordered: 25-Nov-2020 Johanny Reynolds Generic Substitution Allowed gabapentin 600 mg oral tablet (9 sources) Anti-epileptic Agent Start: 11-29-2020 End: 12-01-2020 take 1 tablet by mouth every twelve hours gabapentin 600 mg oral tablet ; 1 tab(s) orally every 12 hours Quantity: 6 Refills: 0 Ordered: 29-Nov-2020 Cally Meyer Start: 29-Nov-2020 End: 01-Dec-2020 Generic Substitution Allowed Comments: It is very important that you take or use this exactly as directed. Do not skip doses or discontinue unless directed by your doctor.May cause drowsiness. Alcohol may intensify this effect. Use care when operating dangerous machinery. take 1 capsule by mo [facility] three times daily gabapentin (NEURONTIN) 300 MG capsule Ta ke 1 capsule by mouth 3 times daily. Active Comment on above: It is very [...] Active Start: 11-20-2022 take 1 tablet by cecliia th every six hours as needed IBU [...] (8 sources) Nonsteroidal Anti-inflammatory Drug Start: 06-26-20 21 take 1 tablet by mouth twice daily [...] day Quantity: 15 Refills: 0 Ordered: 29-Nov-2020 Cally Meyer Start: 29-Nov-2020 Status: Completed Generic Substitution Allowed [...] capsule (9 sources) Nitrofuran Antibacterial Start: End: take 1 capsule by mouth twice daily Nitrofurantoin Monohyd Macro 100 MG Oral Capsule TAKE 1 CAPSULE TWICE DAILY UNTIL GONE. Quantity: 6 Refills: 0 Ordered: 02-Mar-2021 Chica Wisdom MD Start : 02-Mar-2021 Active Start: 06-02-2020 take 1 capsule by [facility] every twelve hours Nitrofurantoin Monohyd Macro 100 [...] Status: Completed Generic Substitution Allowed Comments: Caution [place] law prohibits the transfer of this drug to any person other than the person for whom it was prescribed.May cause drowsiness. Alcohol may intensify this effect. Use care when operating dangerous machinery.Obtain medical advice before taking any non-prescription drugs as some may affect the action of this medication. Comment on above: Caution [place] law prohibits the transfer of this drug to any person other than the person for whom it was prescribed.May cause drowsiness. Alcohol may intensify this effect. Use care when operating dangerous machinery.Obtain medical advice before taking any non-prescription drugs as some may affect the action of this medication. Problems Active Problems Problem Classification Problem Date Documented Date Episodic/Chronic Anxiety disorders (3 sources) Mixed anxiety and depressive disorder; Translations: [Anxiety state, unspecified] Chronic Bacterial infection; unspecified site (12 sources) Chlamydial infection; Translations: [Bacterial infectious disease] Episodic Cardiac dysrhythmias (2 sources) Palpitations; Translations: [Palpitations] Onset: 12-11-2018 Episodic Conditions associated with dizziness or vertigo (2 sources) Dizziness and giddiness; Translations: [Dizziness and giddiness] Onset: 12-11-2018 Episodic E Codes: Fall (1 source) Fall [...] phalanges of foot] Onset: 11-21-2022 11-20-2022 Episodic Immunizations and screening for infectious disease [...] Translations: [Dyspareunia] Chronic Other female genital disorders (5 sources) Vaginal discharge; Translations: [Leukorrhea, not specified as infective] Episodic Other inflammatory condition of skin (1 [...] of other diseases of digestive system] Episodic Residual codes; unclassified (2 sources) High risk heterosexual behavior; Translations: [High risk heterosexual behavior] Onset: 09-28-2024 Episodic Sexually transmitted infections (not HIV or [...] Other Problems Problem Classification Problem Date Documented Date Episodic/Chronic Abdominal pain (6 sources) Pain in pelvis; Translations: [Unspecified abdominal pain] Onset: 05-04-2024 06-26-2021 Episodic Disorders of teeth and jaw (2 sources) Dental caries, unspecified; Translations: [Other specified disorders of teeth and supporting structures] Onset: 04-24-2024 Episodic Genitourinary symptoms and ill-defined conditions (20 sources) Other abnormal findings in urine; Translations: [Dysuria] Onset: 07-30-2018 Episodic Other aftercare (1 source) Other prison (current) drug therapy; Translations: [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] Onset: 09-08-2022 Episodic Other female genital disorders (4 sources) Other specified noninflammatory disorders of vagina; Translations: [Other specified noninflammatory disorders of vagina] Onset: 09-09-2018 Episodic Other female genital disorders (1 source) Personal history of other diseases of the female genital tract Onset: 09-09-2018 Episodic Other female genital disorders (5 sources) History of recurrent vaginal discharge; Translations: [Personal history of other genital system and obstetric disorders] Resolved: 06-11-2019 Episodic Other female genital disorders (1 source) Other specified noninflammatory disorders of vagina; Translations: [Other specified noninflammatory disorders of vagina] Onset: 05-26-2024 Episodic Other female genital disorders (2 sources) Noninflammatory disorder of vagina, unspecified; Translations: [Noninflammatory disorder of vagina, unspecified] Onset: 05-08-2024 Episodic Other inflammatory condition of skin (2 [...] Test Name Value Interpretation Reference Range Facility HCV RNA,Quant,PCRon 12-11-19 25 HCV RNA,Quant Not detected Normal [facility] Comment on above: Result Comment: INTERPRETIVE INFORMATION: HCV by Quantitative NAAT, Serum or Plasma Normal Range for this assay is Not Detected . The quantitative range of this assay is 15-30,000,000 IU/mL (1.17-7.48 log IU/mL). Lower limit of quantitation(LLoQ) is 15 IU/mL(1.17 log IU/mL). LLoQ values do not apply to diluted specimens. A result of Not Detected does not rule out the presence of inhibitors in the patient specimen or hepatitis C virus RNA concentrations below the level of detection of the test. Care should be taken when interpreting any single viral load determination. This test should not be used for blood donor screening, associated re-entry protocols, or for screening Human Cell, Tissues and Cellular Tissue-Based Products (HCT/P). Performed By: #### U KESHA UAEliza #### [address] [place] [address] Business Machine Operator: Adonis Thomas MD [facility] Erythrocyte distribution width (RBC) [Ratio] 13.1 % Normal 11.8-14.4 [facility] Comment on above: Performed By: #### W P #### [address] [place] [address] Business Machine Operator: Adonis Thomas MD Hematocrit (Bld) [Volume fraction] 33.8 % Low 36.3-47.1 [facility] Comment on above: Performed By: #### W P #### [address] [place] [address] Business Machine Operator: Adonis Thomas MD Hemoglobin (Bld) [Mass/Vol] 10.9 g/dL Low 11.9-15.1 [facility] Comment on above: Performed By: #### W P #### [address] [place] [address] Business Machine Operator: Adonis Thomas MD MCH (RBC) [Entitic mass] 27.0 pg Normal 25.2-33.5 [facility] Comment on above: Performed By: #### W P #### [address] [place] [address] Business Machine Operator: Adonis Thomas MD MCHC (RBC) [Mass/Vol] 32.2 g/dL Normal 28.4-34.8 [facility] Comment on above: Performed By: #### W P #### [address] [place], [place] [id number] Business Machine Operator: Adonis Thomas MD MCV (RBC) [Entitic vol] 83.9 fL Normal 82.6-102.9 [facility] Comment on above: Performed By: #### W P #### [address] [place], [place] [id number] Business Machine Operator: Adonis Thomas MD Platelet mean volume (Bld) [Entitic vol] 9.8 fL Normal 8.1-13.5 [facility] Comment on above: Performed By: #### W P #### [address] [place], [place] [id number] Business Machine Operator: Adonis Thomas MD Platelets (Bld) [#/Vol] 332 10*3/uL Normal 138-453 [facility] Comment on above: Performed By: #### W P #### [address] [place], [place] [id number] Business Machine Operator: Adonis Thomas MD RBC (Bld) [#/Vol] 4.03 10*6/uL Normal 3.95-5.11 [facility] Comment on above: Performed By: #### W P #### [address] [place], [place] [id number] Business Machine Operator: Adonis Thomas MD Interpretation and review of laboratory results Abnormal [facility] Nucleated RBC/100 WBC (Bld) [Ratio] 0.0 % 0.0 per 100 WBC [facility] WBC other (Bld) [#/Vol] 4.8 [facility] NRBC Automated 0.0 per 100 WBC Normal 0.0 [facility] Comment on above: Performed By: #### W P #### [facility] [address] [place], [place] [id number] Business Machine Operator: Adonis Thomas MD WBC (Bld) [#/Vol] 4.8 10*3/uL Normal 3.5-11.3 [facility] Comment on above: Performed By: #### W P #### [facility] [address] [place], [place] [id number] Business Machine Operator: Adonis Thomas MD Comp Metabolic Profon 2024 Albumin [Mass/Vol] 4.0 g/dL Normal 3.5-5.2 [facility] Comment on above: Performed By: #### W P #### [facility] [address] [place], [place] [id number] Business Machine Operator: Adonis Thomas MD Albumin/Glob Ratio 1.6 Normal 1.0-2.5 [facility] Comment on above: Performed By: #### W P #### [facility] [address] [place], [place] [id number] Business Machine Operator: Adonis Thomas MD Alkaline Phos 65 U/L Normal 35-104 [facility] Comment on above: Performed By: #### W P #### [facility] [address] [place], [place] [id number] Business Machine Operator: Adonis Thomas MD ALT [Catalytic activity/Vol] 28 U/L Normal 10-35 [facility] Comment on above: Performed By: #### W P #### [facility] [address] [place], [place] [id number] Business Machine Operator: Adonis Thomas MD Anion gap [Moles/Vol] 10 mmol/L Normal 9-16 [facility] Comment on above: Performed By: #### W P #### [facility] [address] [place], [place] [id number] Business Machine Operator: Adonis Thomas MD AST [Catalytic activity/Vol] 27 U/L Normal 10-35 [facility] Comment on above: Performed By: #### W P #### [facility] [address] [place], [place] [id number] Business Machine Operator: Adonis Thomas MD Bilirubin [Mass/Vol] mg/dL Normal 0.00-1.20 [facility] Comment on above: Performed By: #### W P #### [facility] [address] [place] [address] Business Machine Operator: Adonis Thomas MD BUN/CRE Ratio 28 High 9-20 [facility] Comment on above: Performed By: #### W P #### [facility] [address] [place] [address] [place] [address] Business Machine Operator: Adonis Thomas MD Calcium [Mass/Vol] 9.0 mg/dL Normal 8.6-10.4 [facility] Comment on above: Performed By: #### W P #### [facility] [address] [place] [address] [place], [place] [phone] Business Machine Operator: Adonis Thomas MD Chloride [Moles/Vol] 102 mmol/L Normal 98-107 [facility] Comment on above: Performed By: #### W P #### [facility] [address] [place] [address] [place] [address] Business Machine Operator: Adonis Thomas MD CO2 [Moles/Vol] 28 mmol/L Normal 20-31 [facility] Comment on above: Performed By: #### W P #### [facility] [address] [place] [address] [place], [place] [id number] Business Machine Operator: Adonis Thomas MD Creatinine [Mass/Vol] 0.6 mg/dL Normal 0.50-0.90 [facility] Comment on above: Performed By: #### W P #### [facility] [address] [place] [address] [place] [address] Business Machine Operator: Adonis Thomas MD GFR/1.73 sq M.predicted among non-blacks MDRD (S/P/Bld) [Vol rate/Area] mL/min/{1.73_m2} Normal >60 [facility] Comment on above: Result Comment: These [...] affects renal tubular secretion. Performed By: #### W P #### [address] [place] [address] Business Machine Operator: Adonis Thomas MD Glucose [Mass/Vol] 105 mg/dL High 74-99 [facility] Comment on above: Performed By: #### W P #### [address] [place] [address] Business Machine Operator: Adonis Thomas MD Potassium [Moles/Vol] 4.1 mmol/L Normal 3.7-5.3 [facility] Comment on above: Performed By: #### W P #### [address] [place] [address] Business Machine Operator: Adonis Thomas MD Protein [Mass/Vol] 6.5 g/dL Low 6.6-8.7 [facility] Comment on above: Performed By: #### W P #### [facility] [address] [place] [address] [place] [address] Business Machine Operator: Adonis Thomas MD Sodium [Moles/Vol] 140 mmol/L Normal 136-145 [facility] Comment on above: Performed By: #### W P #### [facility] [address] [place] [address] [place] [address] Business Machine Operator: Adonis Thomas MD Urea nitrogen [Mass/Vol] 17 mg/dL Normal 6-20 [facility] Comment on above: Performed By: #### W P #### [facility] [address] [place] [address] Business Machine Operator: Adonis Thomas MD Comprehensive Metabolic Pane adriano 12-08-2024 Albumin [Mass/Vol] 4.0 g/dL 3.5 - 5.2 g/dL [facility] Albumin/Globulin [Mass ratio] 1.6 {ratio} 1.0 - 2.5 [facility] ALP [Catalytic activity/Vol] 65 U/L 35 - 104 U/L [facility] ALT [Catalytic activity/Vol] 28 U/L 10 - 35 U/L [facility] Anion gap [Moles/Vol] 10 mmol/L 9 - 16 mmol/L [facility] AST [Catalytic activity/Vol] 27 U/L 10 - 35 U/L [facility] Bilirubin [Mass/Vol] mg/dL 0.00 - 1.20 mg/dL [facility] Calcium [Mass/Vol] 9.0 mg/dL 8.6 - 10. 4 mg/dL [facility] Chloride [Moles/Vol] 102 mmol/L 98 - 107 mmol/L [facility] CO2 [Moles/Vol] 28 mmol/L 20 - 31 mmol/L [facility] Creatinine [Mass/Vol] 0.6 mg/dL 0.50 - 0.90 mg/dL [facility] Est, Glom Filt Rate - PINF [facility] Comment on above: These results are not intended for use [...] following therapy that affects renal tubular secretion. Glucose [Mass/Vol] 105 mg/dL High 74 - 99 mg/dL [facility] Interpretation and review of laboratory results Abnormal [facility] Potassium [Moles/Vol] 4.1 mmol/L 3.7 - 5.3 mmol/L [facility] Protein [Mass/Vol] 6.5 g/dL Low 6.6 - 8.7 g/dL [facility] Sodium [Moles/Vol] 140 mmol/L 136 - 145 mmol/L [facility] Urea nitrogen [Mass/Vol] 17 mg/dL 6 - 20 mg/dL [facility] Urea nitrogen/Creatinin e [Mass ratio] 28 mg/mg High 9 - 20 [facility] HCG Qualitative, Serumon HCG ( test) Ql Negative NEGATIVE [facility] Comment on above: Specimens with hCG l evels near the threshold of the test (25 mIU/mL) may give a negative or indeterminate result. In such cases, another test should be performed with a new specimen in 48-72 hours. If early is suspected clinically in this setting, correlation with quantitative serum b-hCG level is suggested. [facility] has confirmed the use of plasma for this test. This has not been cleared or approved by the U.[place]. Food and Drug Administration. The FDA has determined that such clearance is not necessary. [facility] HCG Screen, Bloodon 12-08-19 25 HCG Screen, Blood Negative Normal NEG [facility] Comment on above: Result Comment: Spec imens with hCG levels near the threshold of the test (25 mIU/mL) may give a negative or indeterminate result. In such cases, another test should be performed with a new specimen in 48-72 hours. If early is suspected clinically in this setting, correlation with quantitative serum b-hCG level is suggested. [facility] has confirmed the use of plasma for this test. This has not been cleared or approved by the U.S. Food and Drug Administration. The FDA has determined that such clearance is not necessary. Performed By: #### W P #### [facility] [address] [place] [address] Business Machine Operator: Adonis Thomas MD HCV RNA,Quant,PCRon 12-08-19 25 Source .PLASMA Normal [facility] Comment on above: Performed By: #### U MICAO, UAX #### [facility] [address] [place] [address] Business Machine Operator: Adonis Thomas MD HIV Ag/Abon 12-08-2024 HIV Ag/Ab Non-Reactive Normal [facility] Comment on above: Result Comment: No l aboratory evidence of HIV infection. If acute HIV infection is suspected, consider testing for HIV-1 RNA. Performed By: #### W P #### [facility] [address] [place], [place] [id number] Business Machine Operator: Adonis Thomas MD HIV Screenon 12-08-2024 HIV 1+2 Ab+HIV1 p24 Ag IA Ql Non-Reactive NONREACTIVE [facility] Comment on above: No laboratory eviden ce of HIV infection. If acute HIV infection is suspected, consider testing for HIV-1 RNA. [facility] Hep B Surf Abon 12-08-2024 Hep B Surf Ab <3.50 Normal <10 [facility] Comment on above: Result Comment: REFERENCE RANGE: <10.0 NON-REACTIVE/NOT IMMUNE >=10.0 REACTIVE/IMMUNE Performed By: #### W P #### [address] [place] [address] Business Machine Operator: Adonis Thomas MD Hepatitis Acute [facility] 12-08 Hep A Ab,IgM Non-Reactive Normal [facility] Comment on above: Performed By: #### W P #### [facility] [address] [place] [address] Business Machine Operator: Adonis Thomas MD Hep B Core Ab,IgM Non-Reactive Normal [facility] Comment on above: Performed By: #### W P #### [facility] [address] [place] [address] Business Machine Operator: Adonis Thomas MD Hep B Surf Ag Non-Reactive Normal [facility] Comment on above: Performed By: #### W P #### [facility] [address] [place] [address] Business Machine Operator: Adonis Thomas MD Hep C Ab Non-Reactive Normal NR [facility] Comment on above: Result Comment: [...] HCV RNA by PCR. Performed By: #### W P #### [facility] [address] [place] [address] Business Machine Operator: Adonis Thomas MD Hepatitis B Surface Antibody on 12-08-2024 HBV surface Ab IA Qn m[IU]/mL NINF [facility] Comment on above: REFERENCE RANGE: <10.0 NON-REACTIVE/NOT IMMUNE >=10.0 REACTIVE/IMMUNE Hepatitis Panel, Acuteon HAV IgM IA Ql Non-Reactive NONREACTIVE [facility] HBV core IgM IA Ql Non-Reactive NONREACTIVE [facility] HBV surface Ag IA Ql Non-Reactive NONREACTIVE [facility] HCV Ab IA Ql Non-Reactive NONREACTIVE [facility] Comment on above: The hepatitis C procedure used in our [...] recommended by ordering HCV RNA by PCR. No Panel Informationon 12-08 [facility] T. pallidum Abon 12-08-2024 T. pallidum Ab IA Ql (S) Non-Reactive NONREACTIVE [facility] Comment on above: T. pallidum antibodies are not detected. There is no serological evidence of infection with T. pallidum (early primary syphilis cannot be excluded). Retest in 2-4 weeks if syphilis is clinically suspect. [facility] T.pallidum Ab Screenon 12-08 T.pallidum Ab Screen Non-Reactive Normal NR [facility] Comment on above: Result Comment: T. pallidum antibodies are not detected. There is no serological evidence of infection with T. pallidum (early primary syphilis cannot be excluded). Retest in 2-4 weeks if syphilis is clinically suspect. Performed By: #### U MICAO, UAX #### [facility] [address] [place] [address] Business Machine Operator: Adonis Thomas MD Chlamydia/GC,DNA Ampon 12-07 Chlamydia Probe Negative Normal NEG [facility] Comment on above: Result Comment: CHLA MYDIA [...] alternative nucleic acid target. Performed By: #### S WCGP #### [id number] [place] [address] Business Machine Operator: Perry Marte MD Gonorrhea Probe Negative Normal NEG [facility] Comment on above: Result Comment: NEIS SERIA [...] alternative nucleic acid target. Performed By: #### S WCGP #### [id number] [place] [address] Business Machine Operator: Perry Marte MD Trichomonas/Wet Prepon 12-04 Trichomonas/Wet Prep Specimen Description .VAGINAL SPECIMEN Direct Exam YEAST PRESENT CLUE CELLS SEEN NO TRICHOMONAS SEEN Report Status FINAL 12/04/2024 Normal [facility] Comment on above: Performed By: #### W P #### [facility] [address] [place] [address] Business Machine Operator: Adonis Thomas MD Wet prep, genitalon 12-04-19 Microorganism or agent identified Nom (Unsp spec) YEAST PRESENT [facility] Microorganism or agent identified Nom (Unsp spec) CLUE CELLS SEEN [facility] Microorganism or agent identified Nom (Unsp spec) NO TRICHOMONAS SEEN [facility] Specimen Description .VAGINAL SPECIMEN [facility] CBCon 10-14-2024 Erythrocyte distribution width (RBC) [Ratio] 13.8 % Normal 11.8-14.4 [facility] Comment on above: Performed By: #### S WCGP #### [address] [address] Business Machine Operator: Perry Marte MD Hematocrit (Bld) [Volume fraction] 36.1 % Low 36.3-47.1 [facility] Comment on above: Performed By: #### S WCGP #### [address] [address] Business Machine Operator: Perry Marte MD Hemoglobin (Bld) [Mass/Vol] 11.6 g/dL Low 11.9-15.1 [facility] Comment on above: Performed By: #### S WCGP #### [address] [address] Business Machine Operator: Perry Marte MD MCH (RBC) [Entitic mass] 28.0 pg Normal 25.2-33.5 [facility] Comment on above: Performed By: #### S WCGP #### [facility] [employer] [address] [place] [address] Business Machine Operator: Perry Marte MD MCHC (RBC) [Mass/Vol] 32.1 g/dL Normal 28.4-34.8 [facility] Comment on above: Performed By: #### S WCGP #### [address] [address] Business Machine Operator: Perry Marte MD MCV (RBC) [Entitic vol] 87.0 fL Normal 82.6-102.9 [facility] Comment on above: Performed By: #### S WCGP #### [address] [address] Business Machine Operator: Perry Marte MD NRBC Automated 0.0 per 100 WBC Normal 0.0 [facility] Comment on above: Performed By: #### S WCGP #### [address] [address] Business Machine Operator: Perry Marte MD Platelet mean volume (Bld) [Entitic vol] 9.9 fL Normal 8.1-13.5 [facility] Comment on above: Performed By: #### S WCGP #### [address] [address] Business Machine Operator: Perry Marte MD Platelets (Bld) [#/Vol] 312 10*3/uL Normal 138-453 [facility] Comment on above: Performed By: #### S WCGP #### [address] [address] Business Machine Operator: Perry Marte MD RBC (Bld) [#/Vol] 4.15 10*6/uL Normal 3.95-5.11 [facility] Comment on above: Performed By: #### S WCGP #### [address] [address] Business Machine Operator: Perry Marte MD WBC (Bld) [#/Vol] 6.3 10*3/uL Normal 3.5-11.3 [facility] Comment on above: Performed By: #### S WCGP #### [address] [address] Business Machine Operator: Perry Marte MD Comp Metabolic Profon 2023 Albumin [Mass/Vol] 4.5 g/dL Normal 3.5-5.2 [facility] Comment on above: Performed By: #### S WCGP #### [address] [address] Business Machine Operator: Perry Marte MD Albumin/Glob Ratio 1.7 Normal 1.0-2.5 [facility] Comment on above: Performed By: #### S WCGP #### [address] [address] Business Machine Operator: Perry Marte MD Alkaline Phos 86 U/L Normal 35-104 [facility] Comment on above: Performed By: #### S WCGP #### [address] [address] Business Machine Operator: Perry Marte MD ALT [Catalytic activity/Vol] 19 U/L Normal 10-35 [facility] Comment on above: Performed By: #### S WCGP #### [address] [address] Business Machine Operator: Perry Marte MD Anion gap [Moles/Vol] 11 mmol/L Normal 9-16 [facility] Comment on above: Performed By: #### S WCGP #### [address] [address] Business Machine Operator: Perry Marte MD AST [Catalytic activity/Vol] 19 U/L Normal 10-35 [facility] Comment on above: Performed By: #### S WCGP #### [address] [address] Business Machine Operator: Perry Marte MD Bilirubin [Mass/Vol] mg/dL Normal 0.00-1.20 [facility] Comment on above: Performed By: #### S WCGP #### [address] [address] Business Machine Operator: Perry Marte MD BUN/CRE Ratio 23 High 9-20 [facility] Comment on above: Performed By: #### S WCGP #### [facility] [employer] [address] [place] [address] Business Machine Operator: Perry Marte MD Calcium [Mass/Vol] 9.4 mg/dL Normal 8.6-10.4 [facility] Comment on above: Performed By: #### S WCGP #### [address] [address] Business Machine Operator: Perry Marte MD Chloride [Moles/Vol] 101 mmol/L Normal 98-107 [facility] Comment on above: Performed By: #### S WCGP #### [address] [address] Business Machine Operator: Perry Marte MD CO2 [Moles/Vol] 26 mmol/L Normal 20-31 [facility] Comment on above: Performed By: #### S WCGP #### [address] [address] Business Machine Operator: Perry Marte MD Creatinine [Mass/Vol] 0.7 mg/dL Normal 0.50-0.90 [facility] Comment on above: Performed By: #### S WCGP #### [address] [address] Business Machine Operator: Perry Marte MD GFR/1.73 sq M.predicted among non-blacks MDRD (S/P/Bld) [Vol rate/Area] mL/min/{1.73_m2} Normal >60 [facility] Comment on above: Result Comment: These [...] affects renal tubular secretion. Performed By: #### S WCGP #### [facility] [employer] [address] [place] [address] Business Machine Operator: Perry Marte MD Glucose [Mass/Vol] 94 mg/dL Normal 74-99 [facility] Comment on above: Performed By: #### S WCGP #### [address] [place] [address] Business Machine Operator: Perry Marte MD Potassium [Moles/Vol] 4.0 mmol/L Normal 3.7-5.3 [facility] Comment on above: Performed By: #### S WCGP #### [address] [address] Business Machine Operator: Perry Marte MD Protein [Mass/Vol] 7.1 g/dL Normal 6.6-8.7 [facility] Comment on above: Performed By: #### S WCGP #### [address] [address] Business Machine Operator: Perry Marte MD Sodium [Moles/Vol] 138 mmol/L Normal 136-145 [facility] Comment on above: Performed By: #### S WCGP #### [address] [address] Business Machine Operator: Perry Marte MD Urea nitrogen [Mass/Vol] 16 mg/dL Normal 6-20 [facility] Comment on above: Performed By: #### S WCGP #### [address] [address] Business Machine Operator: Perry Marte MD HCG Screen, Bloodon 10-14-20 24 HCG Screen, Blood Negative Normal NEG [facility] Comment on above: Result Comment: Spec imens with hCG levels near the threshold of the test (25 mIU/mL) may give a negative or indeterminate result. In such cases, another test should be performed with a new specimen in 48-72 hours. If early is suspected clinically in this setting, correlation with quantitative serum b-hCG level is suggested. [employer] [facility] has confirmed the use of plasma for this test. This has not been cleared or approved by the U.S. Food and Drug Administration. The FDA has determined that such clearance is not necessary. Performed By: #### S WCGP #### [address] [address] Business Machine Operator: Perry Marte MD HIV Ag/Abon 10-14-2024 HIV Ag/Ab Non-Reactive Normal [facility] Comment on above: Result Comment: No l aboratory evidence of HIV infection. If acute HIV infection is suspected, consider testing for HIV-1 RNA. Performed By: #### S WCGP #### [address] [address] Business Machine Operator: Perry Marte MD Hep B Surf Abon 10-14-2024 Hep B Surf Ab <3.50 Normal <10 [facility] Comment on above: Result Comment: REFERENCE RANGE: <10.0 NON-REACTIVE/NOT IMMUNE >=10.0 REACTIVE/IMMUNE Performed By: #### S WCGP #### [address] [address] Business Machine Operator: Perry Marte MD Hepatitis Acute [facility] 10-14 Hep A Ab,IgM Non-Reactive Normal [facility] Comment on above: Performed By: #### S WCGP #### [address] [address] Business Machine Operator: Perry Marte MD Hep B Core Ab,IgM Non-Reactive Normal [facility] Comment on above: Performed By: #### S WCGP #### [address] [address] Business Machine Operator: Perry Marte MD Hep B Surf Ag Non-Reactive Normal [facility] Comment on above: Performed By: #### S WCGP #### [address] [address] Business Machine Operator: Perry Marte MD Hep C Ab Non-Reactive Normal [facility] Comment on above: Result Comment: The [...] HCV RNA by PCR. Performed By: #### S WCGP #### [address] [phone] Business Machine Operator: Perry Marte MD T.pallidum Ab Screenon 10-14 T.pallidum Ab Screen Non-Reactive Normal NR [facility] Comment on above: Result Comment: T. pallidum antibodies are not detected. There is no serological evidence of infection with T. pallidum (early primary syphilis cannot be excluded). Retest in 2-4 weeks if syphilis is clinically suspect. Performed By: #### S WCGP #### [address] [phone] Business Machine Operator: Perry Marte MD Chlamydia/GC,DNA Ampon 09-29 Chlamydia Probe Negative Normal [facility] Comment on above: Result Comment: CHLA [...] alternative nucleic acid target. Performed By: #### S WCGP #### [address] [phone] Business Machine Operator: Perry Marte MD Gonorrhea Probe Negative Normal [facility] Comment on above: Result Comment: NEIS [...] alternative nucleic acid target. Performed By: #### S WCGP #### [employer] [address] [place] [address] Business Machine Operator: Perry Marte MD Trichomonas/Wet Prepon 09-28 Trichomonas/Wet Prep Specimen Description .VAGINAL SPECIMEN Direct Exam FEW CLUE CELLS SEEN NO TRICHOMONAS SEEN NO YEAST OBSERVED Report Status FINAL 09/28/2024 Abnormal [facility] Comment on above: Performed By: #### W P #### [facility] [address] [place] [address] Business Machine Operator: Adonis Thomas MD Wet prep, genitalon 09-28-20 24 Interpretation and review of laboratory results Abnormal [facility] Microorganism or agent identified Nom (Unsp spec) FEW CLUE CELLS SEEN Abnormal [facility] Microorganism or agent identified Nom (Unsp spec) NO TRICHOMONAS SEEN [facility] Microorganism or agent identified Nom (Unsp spec) NO YEAST OBSERVED [facility] Specimen Description .VAGINAL SPECIMEN [facility] Trichomonas/Wet Prepon 05-26 Trichomonas/Wet Prep Specimen Description .VAGINAL SPECIMEN Direct Exam NO YEAST OBSERVED NO TRICHOMONAS SEEN NO CLUE CELLS SEEN Report Status FINAL 05/26/2024 Normal [facility] Comment on above: Performed By: #### S WCGP #### [facility] [address] [place] [address] Business Machine Operator: Perry Marte MD Wet prep, genitalon 05-26-20 24 Microorganism or agent identified Nom (Unsp spec) NO YEAST OBSERVED [facility] Microorganism or agent identified Nom (Unsp spec) NO TRICHOMONAS SEEN [facility] Microorganism or agent identified Nom (Unsp spec) NO CLUE CELLS SEEN [facility] Specimen Description .VAGINAL SPECIMEN [facility] Chlamydia/GC,DNA Ampon 05-11 Chlamydia Probe Negative Normal NEG [facility] Comment on above: Result Comment: CHLA MYDIA [...] target. Performed By: #### W P #### [address] [place] [address] Business Machine Operator: Adonis Thomas MD Gonorrhea Probe Negative Normal NEG [facility] Comment on above: Result Comment: NEIS SERIA [...] target. Performed By: #### W P #### [address] [place] [address] Business Machine Operator: Adonis Thomas MD Trichomonas/Wet Prepon 05-08 Trichomonas/Wet Prep Specimen Description .VAGINAL SPECIMEN Direct Exam MODERATE CLUE CELLS SEEN NO TRICHOMONAS SEEN NO YEAST OBSERVED Report Status FINAL 05/08/2024 Abnormal [facility] Comment on above: Performed By: #### W P #### [address] [place] [address] Business Machine Operator: Adonis Thomas MD UA w/Reflex Cultureon 2023 Bilirubin, SemiQt,Ur Negative Normal NEG [facility] Comment on above: Performed By: #### S WCGP #### [address] [phone] Business Machine Operator: Perry Marte MD Blood, Urine TRACE Abnormal NEG [facility] Comment on above: Performed By: #### S WCGP #### [facility] [address] [place], [place] [phone] Business Machine Operator: Perry Marte MD Clarity (U) Clear Normal CLEAR [facility] Comment on above: Performed By: #### S WCGP #### [address] [address] Business Machine Operator: Perry Marte MD Color (U) Yellow Normal YEL [facility] Comment on above: Performed By: #### S WCGP #### [address] [address] Business Machine Operator: Perry Marte MD Glucose Ql (U) Negative Normal NEG [facility] Comment on above: Performed By: #### S WCGP #### [address] [address] Business Machine Operator: Perry Marte MD Ketones Ql (U) Negative Normal NEG [facility] Comment on above: Performed By: #### S WCGP #### [address] [address] Business Machine Operator: Perry Marte MD Leukocyte esterase Test strip Ql (U) Negative Normal NEG [facility] Comment on above: Performed By: #### S WCGP #### [address] [address] Business Machine Operator: Perry Marte MD Nitrite,Ur Negative Normal NEG [facility] Comment on above: Performed By: #### S WCGP #### [address] [address] Business Machine Operator: Perry Marte MD PH,Ur 6.0 Normal 5.0-9.0 [facility] Comment on above: Performed By: #### S WCGP #### [address] [address] Business Machine Operator: Perry Marte MD Protein Ql (U) Negative Normal NEG [facility] Comment on above: Performed By: #### S WCGP #### [address] [place] [address] Business Machine Operator: Perry Marte MD Spec. [place],Ur >1.030 High 1.010-1.020 [facility] Comment on above: Performed By: #### S WCGP #### [facility] [address] [place] [address] Business Machine Operator: Perry Marte MD Urobilinogen,Ur Normal Normal 0.0-1.0 [facility] Comment on above: Performed By: #### S WCGP #### [address] [address] Business Machine Operator: Perry Marte MD Urinalysis,Microon 4 Bacteria 1+ Abnormal NONE [facility] Comment on above: Performed By: #### W P #### [facility] [address] [place] [address] Dr. [place] [phone] ( Business Machine Operator: Adonis Thomas MD Epithelial cells LM Ql (Urine sed) 5 TO 10 Normal 0-25 [facility] Comment on above: Performed By: #### W P #### [facility] [address] [place] [address] Dr. [place] [phone] Business Machine Operator: Adonis Thomas MD Urine RBC's 0 TO 2 Normal 0-2 [facility] Comment on above: Performed By: #### W P #### [facility] [address] [place] [address] Dr. [place], [facility] Business Machine Operator: Adonis Thomas MD Urine WBC's 0 TO 2 Normal 0-5 [facility] Comment on above: Performed By: #### W P #### [facility] [address] [place] [place] [address] Business Machine Operator: Adonis Thomas MD CBC with Diffon 05-04-2024 Abs. Basophil 0.06 k/uL Normal 0.00-0.20 [facility] Comment on above: Performed By: #### H CG, CDP, CP #### [address] [place], [place] [phone] Business Machine Operator: Adonis Thomas MD #### TREP, HIVCMB, PHEP #### [address] [phone] Business Machine Operator: Perry Marte MD Abs.Imm.Granulocyt e <0.03 Normal 0.00-0.30 [facility] Comment on above: Performed By: #### H CG, CDP, CP #### [address] [place] [phone] Business Machine Operator: Adonis Thomas MD #### TREP, HIVCMB, PHEP #### [address] [phone] Business Machine Operator: Perry Marte MD Abs.Neutrophil (Seg) 3.64 k/uL Normal 1.50-8.10 [facility] Comment on above: Performed By: #### H CG, CDP, CP #### [address] [place] [phone] Business Machine Operator: Adonis Thomas MD #### TREP, HIVCMB, PHEP #### [address] [address] Business Machine Operator: Perry Marte MD Basophils/100 WBC (Bld) 1 % Normal 0-2 [facility] Comment on above: Performed By: #### H CG, CDP, CP #### [address] [place], [place] [phone] Business Machine Operator: Adonis Thomas MD #### TREP, HIVCMB, PHEP #### [address] [phone] Business Machine Operator: Perry Marte MD Eosinophils (Bld) [#/Vol] 0.11 10*3/uL Normal 0.00-0.44 [facility] Comment on above: Performed By: #### H CG, CDP, CP #### [facility] [address] [place] [address] Dr. [place] [phone] Business Machine Operator: Adonis Thomas MD #### TREP, HIVCMB, PHEP #### [address] [phone] Business Machine Operator: Perry Marte MD Eosinophils/100 WBC (Bld) 2 % Normal 1-4 [facility] Comment on above: Performed By: #### H CG, CDP, CP #### [address] [place] [phone] Business Machine Operator: Adonis Thomas MD #### TREP, HIVCMB, PHEP #### [address] [phone] Business Machine Operator: Perry Marte MD Erythrocyte distribution width (RBC) [Ratio] 12.9 % Normal 11.8-14.4 [facility] Comment on above: Performed By: #### H CG, CDP, CP #### [address] [place] [phone] Business Machine Operator: Adonis Thomas MD #### TREP, HIVCMB, PHEP #### [address] [phone] Business Machine Operator: Perry Marte MD Hematocrit (Bld) [Volume fraction] 34.4 % Low 36.3-47.1 [facility] Comment on above: Performed By: #### H CG, CDP, CP #### [address] [place] [address] Business Machine Operator: Adonis Thomas MD #### TREP, HIVCMB, PHEP #### [address] [phone] Business Machine Operator: Perry Marte MD Hemoglobin (Bld) [Mass/Vol] 11.4 g/dL Low 11.9-15.1 [facility] Comment on above: Performed By: #### H JOSÉ ROWLAND, CP #### [address] [place], [place] [phone] Business Machine Operator: Adonis Thomas MD #### TREP, HIVCMB, PHEP #### [address] [phone] Business Machine Operator: Perry Marte MD Immature granulocytes/100 WBC (Bld) 0 % Normal 0 [facility] Comment on above: Performed By: #### H JOSÉ ROWLAND, CP #### [address] [place] [phone] Business Machine Operator: Adonis Thomas MD #### TREP, HIVCMB, PHEP #### [address] [address] Business Machine Operator: Perry Marte MD Lymphocytes (Bld) [#/Vol] 1.91 10*3/uL Normal 1.10-3.70 [facility] Comment on above: Performed By: #### H JOSÉ ROWLAND, CP #### [address] [place] [phone] Business [employer] Operator: Adonis Thomas MD #### TREJaswant, HIVCMB, PHEP #### [address] [address] Business Machine Operator: Perry Marte MD Lymphocytes/100 WBC (Bld) 30 % Normal 24-43 [facility] Comment on above: Performed By: #### H KASHIF CDP, CP #### [address] [place] [phone] [employer] Operator: Adonis Thomas MD #### TREP, HIVCMB, PHEP #### [address] [phone] Business Machine Operator: Perry Marte MD MCH (RBC) [Entitic mass] 29.4 pg Normal 25.2-33.5 [facility] Comment on above: Performed By: #### H CG, CDP, CP #### [address] [place] [address] Business Machine Operator: Adonis Thomas MD #### TREP, HIVCMB, PHEP #### [address] [phone] Business Machine Operator: Perry Marte MD MCHC (RBC) [Mass/Vol] 33.1 g/dL Normal 28.4-34.8 [facility] Comment on above: Performed By: #### H KASHIF, CDP, CP #### [address] [place] [phone] Business [employer] Operator: Adonis Thomas MD #### TREJaswant, HIVCMB, PHEP #### [address] [phone] Business Machine Operator: Perry Marte MD MCV (RBC) [Entitic vol] 88.7 fL Normal 82.6-102.9 [facility] Comment on above: Performed By: #### H KASHIF, CDP, CP #### [address] [place] [address] Business Machine Operator: Adonis Thomas MD #### TREP, HIVCMB, PHEP #### [address] [place], [place] [phone] Business Machine Operator: Perry Marte MD Monocytes (Bld) [#/Vol] 0.55 10*3/uL Normal 0.10-1.20 [facility] Comment on above: Performed By: #### H CG, CDP, CP #### [address] [place] [address] Business Machine Operator: Adonis Thomas MD #### TREP, HIVCMB, PHEP #### [address] [place], [place] [phone] Business Machine Operator: Perry Marte MD Monocytes/100 WBC (Bld) 9 % Normal 3-12 [facility] Comment on above: Performed By: #### H CG, CDP, CP #### [facility] [address] [place], [place] [phone] Business Machine Operator: Adonis Thomas MD #### TREP, HIVCMB, PHEP #### [address] [phone] Business Machine Operator: Perry Marte MD Neutrophil (Seg) 58 % Normal 36-65 [facility] Comment on above: Performed By: #### H CG, CDP, CP #### [facility] [address] [place] [phone] Business Machine Operator: Adonis Tohmas MD #### TREP, HIVCMB, PHEP #### [address] [phone] Business Machine Operator: Perry Marte MD NRBC Automated 0.0 per 100 WBC Normal 0.0 [facility] Comment on above: Performed By: #### H CG, CDP, CP #### [facility] [address] [place] [phone] Business Machine Operator: Adonis Thomas MD #### TREP, HIVCMB, PHEP #### [address] [address] [phone] Business Machine Operator: Perry Marte MD Platelet mean volume (Bld) [Entitic vol] 9.6 fL Normal 8.1-13.5 [facility] Comment on above: Performed By: #### H CG, CDP, CP #### [facility] [address] [place] [address] Business Machine Operator: Adonis Thomas MD #### TREP, HIVCMB, PHEP #### [address] [place] [address] Business Machine Operator: Perry Marte MD Platelets (Bld) [#/Vol] 333 10*3/uL Normal 138-453 [facility] Comment on above: Performed By: #### H CG, CDP, CP #### [address] [place] [phone] ( Business Machine Operator: Adonis Thomas MD #### TREP, HIVCMB, PHEP #### [address] [address] Business Machine Operator: Perry Marte MD RBC (Bld) [#/Vol] 3.88 10*6/uL Low 3.95-5.11 [facility] Comment on above: Performed By: #### H CG CDP, CP #### [address] [place] [phone] Business Machine Operator: Adonis Thomas MD #### TREP, HIVCMB, PHEP #### [address] [address] Business Machine Operator: Perry Marte MD WBC (Bld) [#/Vol] 6.3 10*3/uL Normal 3.5-11.3 [facility] Comment on above: Performed By: #### H CG, CDP, CP #### [address] [place] [phone] Business Machine Operator: Adonis Thomas MD #### TREP, HIVCMB, PHEP #### [address] [address] Business Machine Operator: Perry Marte MD Comp Metabolic Profon 2023 Albumin [Mass/Vol] 4.2 g/dL Normal 3.5-5.2 [facility] Comment on above: Performed By: #### H CG, CDP, CP #### [facility] [address] [place], [place] [phone] Business Machine Operator: Adonis Thomas MD #### TREP, HIVCMB, PHEP #### [address] [place], [place] [phone] Business Machine Operator: Perry Marte MD Albumin/Glob Ratio 1.6 Normal 1.0-2.5 [facility] Comment on above: Performed By: #### H CG, CDP, CP #### [facility] [address] [place], [place] [phone] Business Machine Operator: Adonis Thomas MD #### TREP, HIVCMB, PHEP #### [address] [phone] Business Machine Operator: Perry Marte MD Alkaline Phos 77 U/L Normal 35-104 [facility] Comment on above: Performed By: #### H KASHIF, CDP, CP #### [facility] [address] [place], [place] [phone] Business Machine Operator: Adonis Thomas MD #### TREP, HIVCMB, PHEP #### [address] [phone] Business Machine Operator: Perry Marte MD ALT [Catalytic activity/Vol] 16 U/L Normal 5-33 [facility] Comment on above: Performed By: #### H CG, CDP, CP #### [facility] [address] [place], [place] [phone] Business Machine Operator: Adonis Thomas MD #### TREP, HIVCMB, PHEP #### [address] [address] Business Machine Operator: Perry Marte MD Anion gap [Moles/Vol] 8 mmol/L Low 9-17 [facility] Comment on above: Performed By: #### H CG, CDP, CP #### [facility] [address] [place], [place] [phone] Business Machine Operator: Adonis Thomas MD #### TREP, HIVCMB, PHEP #### [address] [phone] Business Machine Operator: Perry Marte MD AST [Catalytic activity/Vol] 13 U/L Normal <32 [facility] Comment on above: Performed By: #### H CG, CDP, CP #### [facility] [address] [place], [place] [phone] Business Machine Operator: Adonis Thomas MD #### TREP, HIVCMB, PHEP #### [address] [phone] Business Machine Operator: Perry Marte MD Bilirubin [Mass/Vol] 0.4 mg/dL Normal 0.3-1.2 [facility] Comment on above: Performed By: #### H CG, CDP, CP #### [facility] [address] [place], [place] [phone] Business Machine Operator: Adonis Thomas MD #### TREP, HIVCMB, PHEP #### [address] [phone] Business Machine Operator: Perry Marte MD BUN/CRE Ratio 27 High 9-20 [facility] Comment on above: Performed By: #### H CG, CDP, CP #### [facility] [address] [place], [place] [phone] Business Machine Operator: Adonis Thomas MD #### TREP, HIVCMB, PHEP #### [address] [address] Business Machine Operator: Perry Marte MD Calcium [Mass/Vol] 9.0 mg/dL Normal 8.6-10.4 [facility] Comment on above: Performed By: #### H CG, CDP, CP #### [facility] [address] [place], [place] [phone] Business Machine Operator: Adonis Thomas MD #### TREP, HIVCMB, PHEP #### [address] [place], [place] [phone] Business Machine Operator: Perry Marte MD Chloride [Moles/Vol] 104 mmol/L Normal 98-107 [facility] Comment on above: Performed By: #### H CG, CDP, CP #### [facility] [address] [place], [place] [phone] Business Machine Operator: Adonis Thomas MD #### TREP, HIVCMB, PHEP #### [address] [place], [place] [phone] Business Machine Operator: Perry Marte MD CO2 [Moles/Vol] 29 mmol/L Normal 20-31 [facility] Comment on above: Performed By: #### H CG, CDP, CP #### [facility] [address] [place], [place] [phone] Business Machine Operator: Adonis Thomas MD #### TREP, HIVCMB, PHEP #### [address] [phone] Business Machine Operator: Perry Marte MD Creatinine [Mass/Vol] 0.7 mg/dL Normal 0.5-0.9 [facility] Comment on above: Performed By: #### H CG, CDP, CP #### [facility] [address] [place] [address] Business Machine Operator: Adonis Thomas MD #### TREP, HIVCMB, PHEP #### [address] [place], [place] [phone] Business Machine Operator: Perry Marte MD GFR/1.73 sq M.predicted among non-blacks MDRD (S/P/Bld) [Vol rate/Area] mL/min/{1.73_m2} Normal >60 [facility] Comment on above: Result Comment: These [...] affects renal tubular secretion. Performed By: #### H CG, CDP, CP #### [address] [place] [address] Business Machine Operator: Adonis Thomas MD #### TREP, HIVCMB, PHEP #### [address] [phone] Business Machine Operator: Perry Marte MD Glucose [Mass/Vol] 92 mg/dL Normal 70-99 [facility] Comment on above: Performed By: #### H CG, CDP, CP #### [address] [place] [address] Business Machine Operator: Adonis Thomas MD #### TREP, HIVCMB, PHEP #### [address] [phone] Business Machine Operator: Perry Marte MD Potassium [Moles/Vol] 3.4 mmol/L Low 3.7-5.3 [facility] Comment on above: Performed By: #### H CG, CDP, CP #### [facility] [address] [place] [address] [place] [address] Business Machine Operator: Adonis Thomas MD #### TREP, HIVCMB, PHEP #### [address] [phone] Business Machine Operator: Perry Marte MD Protein [Mass/Vol] 6.9 g/dL Normal 6.4-8.3 [facility] Comment on above: Performed By: #### H CG, CDP, CP #### [facility] [address] [place], [place] [phone] Business Machine Operator: Adonis Thomas MD #### TREP, HIVCMB, PHEP #### [facility] [address] [place], [place] [phone] Business Machine Operator: Perry Marte MD Sodium [Moles/Vol] 141 mmol/L Normal 135-144 [facility] Comment on above: Performed By: #### H CG, CDP, CP #### [facility] [address] [place], [place] [phone] Business Machine Operator: Adonis Thomas MD #### TREP, HIVCMB, PHEP #### [address] [place], [place] [phone] Business Machine Operator: Perry Marte MD Urea nitrogen [Mass/Vol] 19 mg/dL Normal 6-20 [facility] Comment on above: Performed By: #### H KASHIF, CDP, CP #### [facility] [address] [place], [place] [phone] Business Machine Operator: Adonis Thomas MD #### TREP, HIVCMB, PHEP #### [address] [place], [place] [phone] Business Machine Operator: Perry Marte MD HCG Screen, Bloodon 05-04-20 24 HCG Screen, Blood Negative Normal NEG [facility] Comment on above: Result Comment: Spec imens with hCG levels near the threshold of the test (25 mIU/mL) may give a negative or indeterminate result. In such cases, another test should be performed with a new specimen in 48-72 hours. If early is suspected clinically in this setting, correlation with quantitative serum b-hCG level is suggested. [facility] has confirmed the use of plasma for this test. This has not been cleared or approved by the U.S. Food and Drug Administration. The FDA has determined that such clearance is not necessary. Performed By: #### H CG, CDP, CP #### [address] [place] [address] Business Machine Operator: Adonis Thomas MD #### TREP, HIVCMB, PHEP #### [address] [address] Business Machine Operator: Perry Marte MD HIV Ag/Abon 05-04-2024 HIV Ag/Ab Non-Reactive Normal [facility] Comment on above: Result Comment: No l aboratory evidence of HIV infection. If acute HIV infection is suspected, consider testing for HIV-1 RNA. Performed By: #### H JOSÉ ROWLAND, CP #### [address] [place], [place] [phone] Business Machine Operator: Adonis Thomas MD #### TREP, HIVCMB, PHEP #### [address] [address] Business Machine Operator: Perry Marte MD Hepatitis Acute [facility] 05-04 Hep A Ab,IgM Non-Reactive Normal [facility] Comment on above: Performed By: #### JOSÉ NAVARRETE, CP #### [address] [place] [address] Business Machine Operator: Adonis Thomas MD #### TREP, HIVCMB, PHEP #### [address] [address] Business Machine Operator: Perry Marte MD Hep B Core Ab,IgM Non-Reactive Normal [facility] Comment on above: Performed By: #### H KASHIF CDP, CP #### [address] [place], [place] [phone] Business Machine Operator: Adonis Thomas MD #### TREP, HIVCMB, PHEP #### [address] [address] Business Machine Operator: Perry Marte MD Hep B Surf Ag Non-Reactive Normal [facility] Comment on above: Performed By: #### H JOSÉ ROWLAND, CP #### [address] [place], [place] [phone] Business Machine Operator: Adonis Thomas MD #### TREP, HIVCMB, PHEP #### [address] [place], [place] [phone] Business Machine Operator: Perry Marte MD Hep C Ab Non-Reactive Normal [facility] Comment on above: Result Comment: The [...] HCV RNA by PCR. Performed By: #### H JOSÉ ROWLAND, CP #### [address] [place] [phone] Business Machine Operator: Adonis Thomas MD #### TREP, HIVCMB, PHEP #### [address] [phone] Business Machine Operator: Perry Marte MD T.pallidum Ab Screenon 05-046 T.pallidum Ab Screen Non-Reactive Normal [facility] Comment on above: Result Comment: T. pallidum antibodies are not detected. There is no serological evidence of infection with T. pallidum (early primary syphilis cannot be excluded). Retest in 2-4 weeks if syphilis is clinically suspect. Performed By: #### S WCGP #### [address] [phone] Business Machine Operator: Perry Marte MD UA w/Reflex Cultureon 2023 Bilirubin, SemiQt,Ur Negative Normal NEG [facility] Comment on above: Performed By: #### U MICAO, UAX #### [facility] [address] [place] [address] [place] [address] Business Machine Operator: Adonis Thomas MD Blood, Urine 2+ Abnormal NEG [facility] Comment on above: Performed By: #### U MICAO, UAX #### [facility] [address] [place] [address] Business Machine Operator: Adonis Thomas MD Clarity (U) Clear Normal CLEAR [facility] Comment on above: Performed By: #### U MICAO, UAX #### [facility] [address] [place] [address] Business Machine Operator: Adonis Thomas MD Color (U) Yellow Normal YEL [facility] Comment on above: Performed By: #### U MICAO, UAX #### [facility] [address] [place] [address] [place] [address] Business Machine Operator: Adonis Thomas MD Glucose Ql (U) Negative Normal NEG [facility] Comment on above: Performed By: #### U MICAO, UAX #### [facility] [address] [place] [address] Dr. [place], [place] [phone] Business Machine Operator: Adonis Thomas MD Ketones Ql (U) Negative Normal NEG [facility] Comment on above: Performed By: #### U MICAO, UAX #### [facility] [address] [place] [address] Business Machine Operator: Adonis Thomas MD Leukocyte esterase Test strip Ql (U) Negative Normal NEG [facility] Comment on above: Performed By: #### U MICAO, UAX #### [facility] [address] [place] [address] Business Machine Operator: Adonis Thomas MD Nitrite,Ur Negative Normal NEG [facility] Comment on above: Performed By: #### U MICAO, UAX #### [facility] [address] [place] [address] Business Machine Operator: Adonis Thomas MD PH,Ur 6.0 Normal 5.0-9.0 [facility] Comment on above: Performed By: #### U MICAO, UAX #### [facility] [address] [place] [address] Dr. [place], [place] [phone] Business Machine Operator: Adonis Thomas MD Protein Ql (U) Negative Normal NEG [facility] Comment on above: Performed By: #### U MICAO, UAX #### [facility] [address] [place], [place] [phone] Business Machine Operator: Adonis Thomas MD Spec. [place],Ur >1.030 High 1.010-1.020 [facility] Comment on above: Performed By: #### U MICAO, UAX #### [address] [place], [facility]83 Business Machine Operator: Adonis Thomas MD Urobilinogen,Ur Normal Normal 0.0-1.0 [facility] Comment on above: Performed By: #### U WALDEMARO, UAX #### [address] [place], [place] [address] Business Machine Operator: Adonis Thomas MD Urinalysis,Microon 4 Bacteria 1+ Abnormal NONE [facility] Comment on above: Performed By: #### U MICAO, UAX #### [address] [place], [facility]83 Business Machine Operator: Adonis Thomas MD Epithelial cells LM Ql (Urine sed) 10 TO 20 Normal 0-25 [facility] Comment on above: Performed By: #### U MICAO, UAX #### [address] [place] [address] Business Machine Operator: Adonis Thomas MD Urine RBC's 2 TO 5 Normal 0-2 [facility] Comment on above: Performed By: #### U MICAO, UAX #### [facility] [address] [place] [address] Business Machine Operator: Adonis Thomas MD Urine WBC's 0 TO 2 Normal 0-5 [facility] Comment on above: Performed By: #### U MICAO, UAX #### [facility] [address] [place], [place] [phone] Business Machine Operator: Adonis Thomas MD C. trachomatis and N. gonorr hoeae DNA JOSE R+probe Nom (Unsp spec)on 02-21-2024 C. trachomatis rRNA JOSE R+probe Ql (Unsp spec) Negative Normal Negative [facility] Comment on above: Order Comment: The [...] By: #### 3 6903-3 #### RONAL Gerber ([id number]) [facility] ([facility]) [address] [place] [address] N. gonorrhoeae DNA Probe+sig amp Ql (Unsp spec) Negative Normal Negative [facility] Comment on above: Order Comment: The [...] By: #### 3 6903-3 #### RONAL Gerber ([id number]) [facility] ([facility]) [address] [place] [address] Trichomonas vaginalis rRNAon 02-21-2024 T. vaginalis rRNA JOSE R+probe Ql (Unsp spec) Positive Abnormal Negative, Invalid, TRICH neg [facility] Comment on above: Order Comment: The A PTIMA Trichomonas vaginalis assay is FDA-approved for testing on female endocervical swabs, vaginal swabs, and ThinPrep liquid pap samples. Performance characteristics for Trichomonas vaginalis on specific [id number] sample types (female and male urine and male urethral swabs) have been validated by [facility]. This laboratory is certified by CLIA to perform high complexity testing. Samples from all other sites are not validated for this method. Result Comment: Perf ormance characteristics for Trichomonas Vaginalis testing on urine samples has been validated by [facility]. Testing on this sample type is not FDA-approved, but such approval is not necessary. This laboratory is certified by CLIA to perform high complexity testing. Performed By: #### 4 6154-1 #### RONAL Gerber ([id number]) [facility] ([facility]) [address] [place] [address] Alcoholon 05-29-2023 Blood Alcohol Concentration Not indicated Normal [facility] Comment on above: Performed By: #### A LCOH #### [facility] [address] [place] [address] Ethanol [Mass/Vol] mg/dL Normal [facility] Comment on above: Performed By: #### A LCOH #### [facility] [address] [place] [address] Comprehensive Metabolic Pane adriano 05-29-2023 Albumin [Mass/Vol] 5.2 g/dL Critically high 3.5-4.6 M [facility] Comment on above: Performed By: #### C MP #### [facility] [address] [place] [address] ALP [Catalytic activity/Vol] 64 U/L Normal 40-130 [facility] Comment on above: Performed By: #### C MP #### [facility] [address] [place] [address] ALT [Catalytic activity/Vol] 17 U/L Normal 0-33 [facility] Comment on above: Performed By: #### C MP #### [facility] [address] [place] [address] Anion gap [Moles/Vol] 19 mmol/L Critically high 9-15 [facility] Comment on above: Performed By: #### C MP #### [facility] [address] [place] [address] AST [Catalytic activity/Vol] 22 U/L Normal 0-35 [facility] Comment on above: Performed By: #### C MP #### [facility] [address] [place] [address] Bilirubin [Mass/Vol] 0.8 mg/dL Critically high 0.2-0.7 [facility] Comment on above: Performed By: #### C MP #### [facility] [address] [place] [address] Calcium [Mass/Vol] 10.2 mg/dL Critically high 8.5-9.9 [facility] Comment on above: Performed By: #### C MP #### [facility] [address] [place] [address] Chloride [Moles/Vol] 99 mmol/L Normal 95-107 [facility] Comment on above: Performed By: #### C MP #### [facility] [address] [place] [address] CO2 [Moles/Vol] 22 mmol/L Normal 20-31 [facility] Comment on above: Performed By: #### C MP #### [facility] [address] [place] [address] Creatinine [Mass/Vol] 0.60 mg/dL Normal 0.50-0.90 [facility] Comment on above: Performed By: #### C MP #### [facility] [address] [place] [address] GFR >60.0 Normal >60 [facility] Comment on above: Result Comment: Pedi atric calculator link https://www.kidney.org/professionals/kdoqi/gfr_calculatorped Effective Aug 06, [...] secretion. Performed By: #### C MP #### [facility] [address] [place] [address] Globulin (S) [Mass/Vol] 2.6 g/dL Normal 2.3-3.5 [facility] Comment on above: Performed By: #### C MP #### [facility] [address] [place] [address] Glucose [Mass/Vol] 102 mg/dL Critically high 70-99 M [facility] Comment on above: Performed By: #### C MP #### [facility] [address] [place] [address] Potassium [Moles/Vol] 3.9 mmol/L Normal 3.4-4.9 [facility] Comment on above: Performed By: #### C MP #### [facility] [address] [place] [address] Protein [Mass/Vol] 7.8 g/dL Normal 6.3-8.0 [facility] Comment on above: Performed By: #### C MP #### [facility] [address] [place] [address] Sodium [Moles/Vol] 140 mmol/L Normal 135-144 [facility] Comment on above: Performed By: #### C MP #### [facility] [address] [place] [address] Urea nitrogen [Mass/Vol] 9 mg/dL Normal 6-20 [facility] Comment on above: Performed By: #### C MP #### [facility] [address] [place] [address] UR Drugs of Abuse Panelon Drug Screen Comment see below Normal [facility] Comment on above: Result Comment: This method is a screening test to detect only these drug classes as part of a medical workup. Confirmatory testing by another method should be ordered if clinically indicated. Performed By: #### U DRGS #### [facility] [address] [place] [address] UR Amphetamines Screen Negative Normal Negative < [facility] Comment on above: Performed By: #### U DRGS #### [facility] [address] [place] [address] UR Barbiturates Screen Negative Normal Negative < [facility] Comment on above: Performed By: #### U DRGS #### [facility] [address] [place] [address] UR Benzo Screen Negative Normal Negative < [facility] Comment on above: Performed By: #### U DRGS #### [facility] [address] [place] [address] UR Cannabinoids Screen Negative Normal Negative < [facility] Comment on above: Performed By: #### U DRGS #### [facility] [address] [place] [address] UR Cocaine Screen Positive Abnormal Negative < [facility] Comment on above: Performed By: #### U DRGS #### [facility] [address] [place] [address] UR Fentanyl Screen Negative Normal Negative < [facility] Comment on above: Performed By: #### U DRGS #### [facility] [address] [place] [address] UR Methadone Screen Negative Normal Negative < [facility] Comment on above: Performed By: #### U DRGS #### [facility] [address] [place] [address] UR Opiates Screen Negative Normal Negative < [facility] Comment on above: Performed By: #### U DRGS #### [facility] [address] [place] [address] UR Oxycodone Screen Negative Normal Negative < [facility] Comment on above: Performed By: #### U DRGS #### [facility] [address] [place] [address] UR PCP Screen Negative Normal Negative < [facility] Comment on above: Performed By: #### U DRGS #### [facility] [address] [place] [address] UR Propoxyphene Screen Negative Normal Negative < [facility] Comment on above: Performed By: #### U DRGS #### [facility] [address] [place] [address] Urinalysis, reflex to micros copicon 05-29-2023 Bilirubin Ql (U) Negative Normal Negative [facility] Comment on above: Performed By: #### U A #### [facility] [address] [place] [address] Clarity (U) Clear Normal Clear [facility] Comment on above: Performed By: #### U A #### [facility] [address] [place] [address] Color (U) Yellow Normal Straw/[place] [facility] Comment on above: Performed By: #### U A #### [facility] [address] [place] [address] Glucose Ql (U) Negative Normal Negative [facility] Comment on above: Performed By: #### U A #### [facility] [address] [place] [address] Hemoglobin Ql (U) Negative Normal Negative [facility] Comment on above: Performed By: #### U A #### [facility] [address] [place] [address] Ketones Ql (U) 15 mg/dL Abnormal Negative [facility] Comment on above: Performed By: #### U A #### [facility] [address] [place] [address] Leukocyte esterase Test strip Ql (U) TRACE Abnormal Negative [facility] Comment on above: Performed By: #### U A #### [facility] [address] [place] [address] Nitrite Ql (U) Negative Normal Negative [facility] Comment on above: Performed By: #### U A #### [facility] [address] [place] [address] pH (U) 7.5 [pH] Normal 5.0-9.0 [facility] Comment on above: Performed By: #### U A #### [facility] [address] [place] [address] Protein Ql (U) Negative Normal Negative [facility] Comment on above: Performed By: #### U A #### [facility] [address] [place] [address] Specific gravity (U) [Rel density] 1.008 Normal 1.005-1.03 [facility] Comment on above: Performed By: #### U A #### [facility] [address] [place] [address] Urobilinogen Qn (U) 0.2 {Vielka'U}/dL Normal < 2.0 [facility] Comment on above: Performed By: #### U A #### [facility] [address] [place] [address] Urine Microscopicon 05-29-20 23 Urine Bacteria MANY Abnormal Negative [facility] Comment on above: Performed By: #### A LCOH #### [facility] [address] [place] [address] Urine Epithelial Cells Auto 0-2 Normal 0-5 [facility] Comment on above: Performed By: #### A LCOH #### [facility] [address] [place] [address] Urine Hyaline Casts Auto 3-5 Normal 0-5 [facility] Comment on above: Performed By: #### A LCOH #### [facility] [address] [place] [address] Urine RBC Auto 0-2 Normal 0-5 [facility] Comment on above: Performed By: #### A LCOH #### [facility] [address] [place] [address] Urine WBC Auto 10-20 Abnormal 0-5 [facility] Comment on above: Performed By: #### A LCOH #### [facility] [address] [place] [address] CHILLER OPERATOR - Office Visiton 03-0 CHILLER OPERATOR - Office Visit Provider Impressions 27-year-old myofascial sexual pain Physical therapy Follow-up in 1 month Chief Complaint Est pt here for pain with intercourse and with insert of tampon clod puller mariam rma History of Present IllnessPatient has [...] GONE. Vitals Vital Signs Recorded: 09Jan2023 04:18PM [id number], LUE, Sitting Icotnfgsk26, LUE, Sitting Height5 ft 6 in Wcnfjx034 lb 6 oz BMI Kklnljsysv75.59 kg/m2 BSA Calculated1.78 Tobacco Useb) No PHQ-2 #1. Over the last 2 weeks have you felt down, depressed or hopeless? (If yes, answer PHQ-9 below)No PHQ-2 #2. Over the last 2 weeks have you felt little interest or pleasure in doing things? (If yes, answer PHQ-9 below)No Falls Screening (Age 18+)a) No falls within the last year [id number] Signatures Electronically signed by : Cally Meyer MD; Jan 10 2023 9:46AM EST (Author) Normal [employer] Tobacco Screening.on 023 Adult depression screening assessment No [facility] [employer] Work Phone: Fall risk assessment a) No falls within the last year [facility] Work Phone: Last menstrual period start date 22Dec2022 [facility] Work Phone: Tobacco use status CP b) No [facility] Work Phone: Established Visit (Orthopaed ic [...] grammatical areas may persist related to the [employer] software Chacorta Erwin MD Office: . Active [...] use (V49.89) (more content not included)... Normal Path Provider Note - ED v3on 11-04 Provider [...] SIGNS: T PRBP SpO2O2(LPM) %FiO2 Method 21-Nov-2022 01:56:[id number]/63 100 room air, no respiratory support MDM [...] today. N (more content not included)... Normal [facility] Triage - EDon 11-21-2022 Triage - ED [...] BMI (kg/m2): 24.243 Calculated BSA (m2) 1.78 Ildefonso Coma Scale: Best Eye Response: (E4) spontaneous Best Motor Response: (M6) obeys commands Best Verbal Response: (V5) oriented [place] Score: 15 Cough lasting greater than 3 [...] Updated: 21-Nov-2022 02:18 by Kashif Hammond (NIHARIKA) [facility] Provider Note - ED v3on 11-04 [...] extremity is non-tender. HISTORY OF PRESENTING ILLNESS JULIETTE is a [...] SIGNS: T PRBP SpO2O2(LPM) %FiO2 Method 20-Nov-2022 13:51:[id number]/62 97 room air, no respiratory support MDM [...] ill patient: no Electronic Signatures: Elinor Sagastume (OFFICE HELPER CLERICAL-MANAGER ARCHITECTURAL) (Signed 30-Nov-2022 06:11) Authored: ED Notes, HPI, PMH, Results/Vital Signs, MDM/ED Course, Clinical Impression, Attestation, Chart Review, Scores Last Updated: 30-Nov-2022 06:11 by Elinor Sagastume (OFFICE HELPER CLERICAL-MANAGER ARCHITECTURAL) References: 1. Data Referenced From Triage - ED 20-Nov-2022 13:[address] [facility] Radiologyon 11-20-2022 XR Foot 3 Views Normal [email or web address]: Triage - EDon 11-20-2022 Triage [...] Accompanied By: self Language: Spoken Language Preferred: Mauritanian Reading Language Preferred: Mauritanian Hvac/R Instructor Requested: no cab driver was requested MDRO: History of MDRO: no [...] BMI (kg/m2): 24.208 Calculated BSA (m2) 1.78 [place] Coma Scale: Best Eye Response: (E4) spontaneous [...] 20-Nov-2022 13:54 by Tara Pickett (RN) Normal [facility] Alcoholon 10-08-2022 Blood Alcohol Concentration Not indicated Normal [facility] Comment on above: Performed By: #### A LCOH #### [facility] [address] [place] [address] Ethanol [Mass/Vol] mg/dL Normal [facility] Comment on above: Performed By: #### A LCOH #### [facility] [address] [place] [address] CBC With Platelet and Differ entialon 10-08-2022 Basophils (Bld) [#/Vol] 0.0 10*3/uL Normal 0.0-0.2 [facility] Comment on above: Performed By: #### C BCWD #### [facility] [address] [place] [address] Basophils/100 WBC (Bld) 0.5 % Normal [facility] Comment on above: Performed By: #### C BCWD #### [facility] [address] [place] [address] Eosinophils (Bld) [#/Vol] 0.0 10*3/uL Normal 0.0-0.7 [facility] Comment on above: Performed By: #### C BCWD #### [facility] [address] [place] [address] Eosinophils/100 WBC (Bld) 0.5 % Normal [facility] Comment on above: Performed By: #### C BCWD #### [facility] [address] [place] [address] Erythrocyte distribution width (RBC) [Ratio] 13.8 % Normal 11.5-14.5 [facility] Comment on above: Performed By: #### C BCWD #### [facility] [address] [place] [address] Hematocrit (Bld) [Volume fraction] 39.4 % Normal 37.0-47.0 [facility] Comment on above: Performed By: #### C BCWD #### [facility] [address] [place] [address] Hemoglobin (Bld) [Mass/Vol] 13.2 g/dL Normal 12.0-16.0 [facility] Comment on above: Performed By: #### C BCWD #### [facility] [address] [place] [address] Lymphocytes (Bld) [#/Vol] 1.4 10*3/uL Normal 1.0-4.8 [facility] Comment on above: Performed By: #### C BCWD #### [facility] [address] [place] [address] Lymphocytes/100 WBC (Bld) 19.2 % Normal [facility] Comment on above: Performed By: #### C BCWD #### [facility] [address] [place] [address] MCH (RBC) [Entitic mass] 29.2 pg Normal 27.0-31.3 [facility] Comment on above: Performed By: #### C BCWD #### [facility] [address] [place] [address] MCHC 33.6 % Normal 33.0-37.0 [facility] Comment on above: Performed By: #### C BCWD #### [facility] [address] [place] [address] MCV (RBC) [Entitic vol] 87.1 fL Normal 79.4-94.8 [facility] Comment on above: Performed By: #### C BCWD #### [facility] [address] [place] [address] Monocytes (Bld) [#/Vol] 0.8 10*3/uL Normal 0.2-0.8 [facility] Comment on above: Performed By: #### C BCWD #### [facility] [address] [place] [address] Monocytes/100 WBC (Bld) 10.8 % Normal [facility] Comment on above: Performed By: #### C BCWD #### [facility] [address] [place] [address] Neutrophils (Bld) [#/Vol] 5.0 10*3/uL Normal 1.4-6.5 [facility] Comment on above: Performed By: #### C BCWD #### [facility] [address] [place] [address] Neutrophils/100 WBC (Bld) 69.0 % Normal [facility] Comment on above: Performed By: #### C BCWD #### [facility] [address] [place] [address] Platelets (Bld) [#/Vol] 291 10*3/uL Normal 130-400 [facility] Comment on above: Performed By: #### C BCWD #### [facility] [address] [place] [address] RBC (Bld) [#/Vol] 4.53 10*6/uL Normal 4.20-5.40 [facility] Comment on above: Performed By: #### C BCWD #### [facility] [address] [place] [address] WBC (Bld) [#/Vol] 7.2 10*3/uL Normal 4.8-10.8 [facility] Comment on above: Performed By: #### C BCWD #### [facility] [address] [place] [address] Comprehensive Metabolic Pane adriano 10-08-2022 Albumin [Mass/Vol] 5.0 g/dL Critically high 3.5-4.6 M [facility] Comment on above: Order Comment: CALL Lamb LCED tel. [phone], Chemistry, POTASSIUM results called to and read back by IRA PECK, 10/08/2022 10:40, by JOSÉ MIGUEL Performed By: #### C MP #### [facility] [address] [place] [address] ALP [Catalytic activity/Vol] 72 U/L Normal 40-130 [facility] Comment on above: Order Comment: CALL [facility] tel. [phone], Chemistry, POTASSIUM results called to and read back by IRA PECK, 10/08/2022 10:40, by JOSÉ MIGUEL Performed By: #### C MP #### [facility] [address] [place] [address] ALT [Catalytic activity/Vol] 18 U/L Normal 0-33 [facility] Comment on above: Order Comment: CALL [facility] tel. [phone], Chemistry, POTASSIUM results called to and read back by RIA PECK, 10/08/2022 10:40, by JOSÉ MIGUEL Performed By: #### C MP #### [facility] [address] [place] [address] Anion gap [Moles/Vol] 17 mmol/L Critically high 9-15 [facility] Comment on above: Order Comment: CALL [facility] tel. [phone], Chemistry, POTASSIUM results called to and read back by IRA PECK, 10/08/2022 10:40, by JOSÉ MIGUEL Performed By: #### C MP #### [facility] [address] [place] [address] AST [Catalytic activity/Vol] 20 U/L Normal 0-35 [facility] Comment on above: Order Comment: CALL [facility] tel. [phone], Chemistry, POTASSIUM results called to and read back by IRA PECK, 10/08/2022 10:40, by JOSÉ MIGUEL Performed By: #### C MP #### [facility] [address] [place] [address] Bilirubin [Mass/Vol] 2.0 mg/dL Critically high 0.2-0.7 [facility] Comment on above: Order Comment: CALL [facility] tel. [phone], Chemistry, POTASSIUM results called to and read back by IRA PECK, 10/08/2022 10:40, by JOSÉ MIGUEL Performed By: #### C MP #### [facility] [address] [place] [address] Calcium [Mass/Vol] 10.1 mg/dL Critically high 8.5-9.9 M [facility] Comment on above: Order Comment: CALL [facility] tel. [phone], Chemistry, POTASSIUM results called to and read back by IRA PECK, 10/08/2022 10:40, by JOSÉ MIGUEL Performed By: #### C MP #### [facility] [address] [place] [address] Chloride [Moles/Vol] 101 mmol/L Normal 95-107 [facility] Comment on above: Order Comment: CALL [facility] tel. [phone], Chemistry, POTASSIUM results called to and read back by IRA PECK, 10/08/2022 10:40, by JOSÉ MIGUEL Performed By: #### C MP #### [facility] [address] [place] [address] CO2 [Moles/Vol] 22 mmol/L Normal 20-31 [facility] Comment on above: Order Comment: CALL [facility] tel. [phone], Chemistry, POTASSIUM results called to and read back by IRA PECK, 10/08/2022 10:40, by JOSÉ MIGUEL Performed By: #### C MP #### [facility] [address] [place] [address] Creatinine [Mass/Vol] 0.63 mg/dL Normal 0.50-0.90 [facility] Comment on above: Order Comment: CALL [facility] tel. [phone], Chemistry, POTASSIUM results called to and read back by IRA PECK, 10/08/2022 10:40, by JOSÉ MIGUEL Performed By: #### C MP #### [facility] [address] [place] [address] GFR >60.0 Normal >60 [facility] Comment on above: Order Comment: CALL [facility] tel. [phone], Chemistry, POTASSIUM results called to and read [...] secretion. Performed By: #### C MP #### [facility] [address] [place] [address] Globulin (S) [Mass/Vol] 3.0 g/dL Normal 2.3-3.5 [facility] Comment on above: Order Comment: CALL [facility] ED tel. [phone], Chemistry, POTASSIUM results called to and read back by IRA PECK, 10/08/2022 10:40, by JOSÉ MIGUEL Performed By: #### C MP #### [facility] [address] [place] [address] Glucose [Mass/Vol] 111 mg/dL Critically high 70-99 M [facility] Comment on above: Order Comment: CALL [facility]ED tel. [phone], Chemistry, POTASSIUM results called to and read back by IRA PECK, 10/08/2022 10:40, by JOSÉ MIGUEL Performed By: #### C MP #### [facility] [address] [place] [address] Potassium [Moles/Vol] 3.0 mmol/L Critically low 3.4-4.9 [facility] Comment on above: Order Comment: CALL [facility] tel. [phone], Chemistry, POTASSIUM results called to and read back by IRA PECK, 10/08/2022 10:40, by JOSÉ MIGUEL Performed By: #### C MP #### [facility] [address] [place] [address] Protein [Mass/Vol] 8.0 g/dL Normal 6.3-8.0 [facility] Comment on above: Order Comment: CALL [facility] tel. [phone], Chemistry, POTASSIUM results called to and read back by IRA PECK, 10/08/2022 10:40, by JOSÉ MIGUEL Performed By: #### C MP #### [facility] [address] [place] [address] Sodium [Moles/Vol] 140 mmol/L Normal 135-144 [facility] Comment on above: Order Comment: CALL [facility] tel. [phone], Chemistry, POTASSIUM results called to and read back by IRA PECK, 10/08/2022 10:40, by JOSÉ MIGUEL Performed By: #### C MP #### [facility] [address] [place] [address] Urea nitrogen [Mass/Vol] 20 mg/dL Normal 6-20 [facility] Comment on above: Order Comment: CALL [facility] tel. [phone], Chemistry, POTASSIUM results called to and read back by IRA PECK, 10/08/2022 10:40, by JOSÉ MIGUEL Performed By: #### C MP #### [facility] [address] [place] [address] UR Drugs of Abuse Panelon Drug Screen Comment see below Normal [facility] Comment on above: Result Comment: This method is a screening test to detect only these drug classes as part of a medical workup. Confirmatory testing by another method should be ordered if clinically indicated. Performed By: #### U DRGS #### [facility] [address] [place] [address] UR Amphetamines Screen Positive Abnormal Negative < [facility] Comment on above: Performed By: #### U DRGS #### [facility] [address] [place] [address] UR Barbiturates Screen Negative Normal Negative < [facility] Comment on above: Performed By: #### U DRGS #### [facility] [address] [place] [address] UR Benzo Screen Negative Normal Negative < [facility] Comment on above: Performed By: #### U DRGS #### [facility] [address] [place] [address] UR Cannabinoids Screen Positive Abnormal Negative < [facility] Comment on above: Performed By: #### U DRGS #### [facility] [address] [place] [address] UR Cocaine Screen Positive Abnormal Negative < [facility] Comment on above: Performed By: #### U DRGS #### [facility] [address] [place] [address] UR Fentanyl Screen Negative Normal Negative < [facility] Comment on above: Performed By: #### U DRGS #### [facility] [address] [place] [address] UR Methadone Screen Negative Normal Negative < [facility] Comment on above: Performed By: #### U DRGS #### [facility] [address] [place] [address] UR Opiates Screen Negative Normal Negative < [facility] Comment on above: Performed By: #### U DRGS #### [facility] [address] [place] [address] UR Oxycodone Screen Negative Normal Negative < [facility] Comment on above: Performed By: #### U DRGS #### [facility] [address] [place] [address] UR PCP Screen Negative Normal Negative < [facility] Comment on above: Performed By: #### U DRGS #### [facility] [address] [place] [address] UR Propoxyphene Screen Negative Normal Negative < [facility] Comment on above: Performed By: #### U DRGS #### [facility] [address] [place] [address] Urinalysis, reflex to micros copicon 10-08-2022 Bilirubin Ql (U) Negative Normal Negative [facility] Comment on above: Performed By: #### U A #### [facility] [address] [place] [address] Clarity (U) CLOUDY Abnormal Clear [facility] Comment on above: Performed By: #### U A #### [facility] [address] [place] [address] Color (U) ORANGE Abnormal Straw/[place] [facility] Comment on above: Performed By: #### U A #### [facility] [address] [place] [address] Glucose Ql (U) Negative Normal Negative [facility] Comment on above: Performed By: #### U A #### [facility] [address] [place] [address] Hemoglobin Ql (U) TRACE Abnormal Negative [facility] Comment on above: Performed By: #### U A #### [facility] [address] [place] [address] Ketones Ql (U) >=[address] [facility] Comment on above: Performed By: #### U A #### [facility] [address] [place] [address] Leukocyte esterase Test strip Ql (U) MODERATE Abnormal Negative [facility] Comment on above: Performed By: #### U A #### [facility] [address] [place] [address] Nitrite Ql (U) Negative Normal Negative [facility] Comment on above: Performed By: #### U A #### [facility] [address] [place] [address] pH (U) 7.5 [pH] Normal 5.0-9.0 [facility] Comment on above: Performed By: #### U A #### [facility] [address] [place] [address] Protein Ql (U) 30 mg/dL Abnormal Negative [facility] Comment on above: Performed By: #### U A #### [facility] [address] [place] [address] Specific gravity (U) [Rel density] 1.030 Normal 1.005-1.03 [facility] Comment on above: Performed By: #### U A #### [facility] [address] [place] [address] Urobilinogen Qn (U) 1.0 {Vielka'U}/dL Normal < 2.0 [facility] Comment on above: Performed By: #### U A #### [facility] [address] [place] [address] Urine Microscopicon 10-08-20 22 Epithelial cells LM Ql (Urine sed) 5-[address] [facility] Comment on above: Performed By: #### U LINDY #### [facility] [address] [place] [address] Urine RBC 3-5 Abnormal 0-2 [facility] Comment on above: Performed By: #### U LINDY #### [facility] [address] [place] [address] Urine Bacteria RARE Abnormal Negative [facility] Comment on above: Performed By: #### U LINDY #### [facility] [address] [place] [address] Urine Epithelial Cells Auto 20-50 Normal 0-5 [facility] Comment on above: Performed By: #### U LINDY #### [facility] [address] [place] [address] Urine Hyaline Casts Auto 10-20 Normal 0-5 [facility] Comment on above: Performed By: #### U LINDY #### [facility] [address] [place] [address] Urine WBC Auto 10-20 Abnormal 0-5 [facility] Comment on above: Performed By: #### U LINDY #### [facility] [address] [place] [address] DRUG SCREEN,URINEon 09-09-20 AMPHETAMINE SCREEN,U Canceled Normal [facility] Comment on above: Order Comment: TEST DRUG SCREEN,URINE WAS CANCELLED, 09/09/2022 01:17 No specimen received/Pt discharged. Result Comment: CUTO FF LEVEL: 500 NG/ML Cross-reactivity has been reported with high concentrations of the following drugs: buproprion, chloroquine, chlorpromazine, ephedrine, mephentermine, fenfluramine, phentermine, phenylpropanolamine, pseudoephedrine, and propranolol. Performed By: #### D RUG3 #### [address] [id number] BARBITURATES SCREEN,U Canceled Normal [facility] Comment on above: Order Comment: TEST DRUG SCREEN,URINE WAS CANCELLED, 09/09/2022 01:17 No specimen received/Pt discharged. Result Comment: CUTO FF LEVEL: 200 NG/ML Performed By: #### D RUG3 #### [address] [id number] BENZODIAZEPINES SCREEN,U Canceled Normal [facility] Comment on above: Order Comment: TEST DRUG SCREEN,URINE WAS CANCELLED, 09/09/2022 01:17 No specimen received/Pt discharged. Result Comment: CUTO FF LEVEL: 200 NG/ML Performed By: #### D RUG3 #### [address] [id number] CANNABINOIDS SCREEN,U Canceled Normal [facility] Comment on above: Order Comment: TEST DRUG SCREEN,URINE WAS CANCELLED, 09/09/2022 01:17 No specimen received/Pt discharged. Result Comment: CUTO FF LEVEL: 50 NG/ML Performed By: #### D RUG3 #### [address] [id number] COCAINE METABOLITE SCREEN,U Canceled Normal [facility] Comment on above: Order Comment: TEST DRUG SCREEN,URINE WAS CANCELLED, 09/09/2022 01:17 No specimen received/Pt discharged. Result Comment: CUTO FF LEVEL: 150 NG/ML Performed By: #### D RUG3 #### [address] [id number] DRUG SCREEN COMMENT Canceled Normal [facility] Comment on above: Order Comment: TEST DRUG SCREEN,URINE WAS CANCELLED, 09/09/2022 01:17 No specimen received/Pt discharged. Result Comment: Drug screen results are presumptive and should not be used to assess compliance with prescribed medication. Contact the performing [facility] laboratory to add-on definitive confirmatory testing if [...] directors. Performed By: #### D RUG3 #### [address] [id number] FENTANYL SCREEN,URINE Canceled Normal [facility] Comment on above: Order Comment: TEST DRUG SCREEN,URINE WAS CANCELLED, 09/09/2022 01:17 No specimen received/Pt discharged. Result Comment: CUTO FF LEVEL: 5 NG/ML Performed By: #### D RUG3 #### [address] [id number] METHADONE SCREEN,U Canceled Normal [facility] Comment on above: Order Comment: TEST DRUG SCREEN,URINE WAS CANCELLED, 09/09/2022 01:17 No specimen received/Pt discharged. Result Comment: CUTO FF LEVEL: 150 NG/ML The metabolite G-zcuid-eatkddvcsxbrts (LAAM) is not detected by this method in concentrations that would be found in the urine of patients on LAAM therapy. Performed By: #### D RUG3 #### [address] [id number] OPIATES SCREEN,U Canceled Normal [facility] Comment on above: Order Comment: TEST DRUG SCREEN,URINE WAS CANCELLED, 09/09/2022 01:17 No specimen received/Pt discharged. Result Comment: CUTO FF LEVEL: 300 NG/ML The opiate screen does not detect fentanyl, meperidine, or tramadol. Oxycodone is not consistently detected (refer to Oxycodone Screen, Urine result). Performed By: #### D RUG3 #### [address] [id number] OXYCODONE SCREEN,U Canceled Normal [facility] Comment on above: Order Comment: TEST DRUG SCREEN,URINE WAS CANCELLED, 09/09/2022 01:17 No specimen received/Pt discharged. Result Comment: CUTO FF LEVEL: 100 NG/ML This test will accurately detect both oxycodone and oxymorphone. Performed By: #### D RUG3 #### [address] [id number] PCP SCREEN,U Canceled Normal [facility] Comment on above: Order Comment: TEST DRUG SCREEN,URINE WAS CANCELLED, 09/09/2022 01:17 No specimen received/Pt discharged. Result Comment: CUTO FF LEVEL: 25 NG/ML Cross-reactivity has been reported with dextromethorphan. Performed By: #### D RUG3 #### [address] [id number] URINALYSISon 09-09-2022 Appearance (U) Canceled Normal [facility] Comment on above: Order Comment: TEST URINALYSIS WAS CANCELLED, 09/09/2022 01:17 No specimen received/Pt discharged. Performed By: #### U A #### [address] [id number] ASCORBIC ACID Canceled Normal [facility] Comment on above: Order Comment: TEST URINALYSIS WAS CANCELLED, 09/09/2022 01:17 No specimen received/Pt discharged. Result Comment: Conc entrations > = 20 mg/dL of ascorbic acid can be expected to cause strong interference in the reactions testing for glucose, nitrite and blood. It is recommended to discontinue Vitamin C administration and retest in 10 hours. Performed By: #### U A #### [address] [id number] Bilirubin Ql (U) Canceled Normal [facility] Comment on above: Order Comment: TEST URINALYSIS WAS CANCELLED, 09/09/2022 01:17 No specimen received/Pt discharged. Performed By: #### U A #### [address] [id number] Color (U) Canceled Normal [facility] Comment on above: Order Comment: TEST URINALYSIS WAS CANCELLED, 09/09/2022 01:17 No specimen received/Pt discharged. Performed By: #### U A #### [address] [id number] Glucose Ql (U) Canceled Normal [facility] Comment on above: Order Comment: TEST URINALYSIS WAS CANCELLED, 09/09/2022 01:17 No specimen received/Pt discharged. Performed By: #### U A #### [address] [id number] Hemoglobin Ql (U) Canceled Normal [facility] Comment on above: Order Comment: TEST URINALYSIS WAS CANCELLED, 09/09/2022 01:17 No specimen received/Pt discharged. Performed By: #### U A #### [address] [id number] Ketones Ql (U) Canceled Normal [facility] Comment on above: Order Comment: TEST URINALYSIS WAS CANCELLED, 09/09/2022 01:17 No specimen received/Pt discharged. Performed By: #### U A #### [address] [id number] Leukocyte esterase Test strip Ql (U) Canceled Normal [facility] Comment on above: Order Comment: TEST URINALYSIS WAS CANCELLED, 09/09/2022 01:17 No specimen received/Pt discharged. Performed By: #### U A #### [address] [id number] Nitrite Ql (U) Canceled Normal [facility] Comment on above: Order Comment: TEST URINALYSIS WAS CANCELLED, 09/09/2022 01:17 No specimen received/Pt discharged. Performed By: #### U A #### [address] [id number] pH Canceled Normal [facility] Comment on above: Order Comment: TEST URINALYSIS WAS CANCELLED, 09/09/2022 01:17 No specimen received/Pt discharged. Performed By: #### U A #### [address] [id number] Protein Ql (U) Canceled Normal [facility] Comment on above: Order Comment: TEST URINALYSIS WAS CANCELLED, 09/09/2022 01:17 No specimen received/Pt discharged. Performed By: #### U A #### [address] [id number] Specific gravity (U) [Rel density] Canceled Normal [facility] Comment on above: Order Comment: TEST URINALYSIS WAS CANCELLED, 09/09/2022 01:17 No specimen received/Pt discharged. Performed By: #### U A #### [address] [id number] UROBILINOGEN Canceled Normal [facility] Comment on above: Order Comment: TEST URINALYSIS WAS CANCELLED, 09/09/2022 01:17 No specimen received/Pt discharged. Performed By: #### U A #### [address] [id number] CBC AND DIFFERENTIALon 09-08 % AUTOMATED IMMATURE GRAN 0.3 % Normal 0.0 - 0.9 [facility] Comment on above: Result Comment: Hazel ture Granulocyte Count (IG) includes promyelocytes, myelocytes and metamyelocytes but does not include bands. Percent differential counts (%) should be interpreted in the context of the absolute cell counts (cells/L). Performed By: #### C BCDF #### [address] [id number] Basophils (Bld) [#/Vol] 0.05 10*3/uL Normal 0.00 - 0.10 [facility] Comment on above: Performed By: #### C BCDF #### [address] [id number] Basophils/100 WBC (Bld) 0.7 % Normal 0.0 - 2.0 [facility] Comment on above: Performed By: #### C BCDF #### [address] [id number] Eosinophils (Bld) [#/Vol] 0.01 10*3/uL Normal 0.00 - 0.70 [facility] Comment on above: Performed By: #### C BCDF #### [address] [id number] Eosinophils/100 WBC (Bld) 0.1 % Normal 0.0 - 6.0 [facility] Comment on above: Performed By: #### C BCDF #### [address] [id number] Erythrocyte distribution width (RBC) [Ratio] 12.9 % Normal 11.5 - 14.5 [facility] Comment on above: Performed By: #### C BCDF #### [address] [id number] Hematocrit (Bld) [Volume fraction] 34.5 % Low 36.0 - 46.0 [facility] Comment on above: Performed By: #### C BCDF #### [address] [id number] Hemoglobin (Bld) [Mass/Vol] 11.6 g/dL Low 12.0 - 16.0 [facility] Comment on above: Performed By: #### C BCDF #### [address] [id number] Lymphocytes (Bld) [#/Vol] 1.68 10*3/uL Normal 1.20 - 4.80 [facility] Comment on above: Performed By: #### C BCDF #### [address] [id number] Lymphocytes/100 WBC (Bld) 23.1 % Normal 13.0 - 44.0 [facility] Comment on above: Performed By: #### C BCDF #### [address] [id number] MCHC (RBC) [Mass/Vol] 33.6 g/dL Normal 32.0 - 36.0 [facility] Comment on above: Performed By: #### C BCDF #### [address] [id number] MCV (RBC) [Entitic vol] 86 fL Normal 80 - 100 [facility] Comment on above: Performed By: #### C BCDF #### [address] [id number] Monocytes (Bld) [#/Vol] 0.82 10*3/uL Normal 0.10 - 1.00 [facility] Comment on above: Performed By: #### C BCDF #### [address] [id number] Monocytes/100 WBC (Bld) 11.3 % Normal 2.0 - 10.0 [facility] Comment on above: Performed By: #### C BCDF #### [address] [id number] Neutrophils (Bld) [#/Vol] 4.68 10*3/uL Normal 1.20 - 7.70 [facility] Comment on above: Performed By: #### C BCDF #### [address] [id number] Neutrophils/100 WBC (Bld) 64.5 % Normal 40.0 - 80.0 [facility] Comment on above: Performed By: #### C BCDF #### [address] [id number] Platelets (Bld) [#/Vol] 267 10*3/uL Normal 150 - 450 [facility] Comment on above: Performed By: #### C BCDF #### [address] [id number] RBC 3.99 x10E12/L Low 4.00 - 5.20 [facility] Comment on above: Performed By: #### C BCDF #### [address] [id number] WBC (Bld) [#/Vol] 7.3 10*3/uL Normal 4.4 - 11.3 [facility] Comment on above: Performed By: #### C BCDF #### [address] [id number] COMPREHENSIVE PANELon 2021 Albumin [Mass/Vol] 4.6 g/dL Normal 3.4 - 5.0 [facility] Comment on above: Performed By: #### U A #### [address] [id number] ALP [Catalytic activity/Vol] 44 U/L Normal 33 - 110 [facility] Comment on above: Performed By: #### U A #### [address] [id number] ALT [Catalytic activity/Vol] 14 U/L Normal 7 - 45 [facility] Comment on above: Result Comment: Carrie ents treated with Sulfasalazine may generate falsely decreased results for ALT. Performed By: #### U A #### [address] [id number] Anion gap [Moles/Vol] 14 mmol/L Normal 10 - 20 [facility] Comment on above: Performed By: #### U A #### [address] [id number] AST [Catalytic activity/Vol] 19 U/L Normal 9 - 39 [facility] Comment on above: Performed By: #### U A #### [address] [id number] Bilirubin [Mass/Vol] 0.9 mg/dL Normal 0.0 - 1.2 [facility] Comment on above: Performed By: #### U A #### [address] [id number] Calcium [Mass/Vol] 9.3 mg/dL Normal 8.6 - 10.3 [facility] Comment on above: Performed By: #### U A #### [address] [id number] Chloride [Moles/Vol] 101 mmol/L Normal 98 - 107 [facility] Comment on above: Performed By: #### U A #### [address] [id number] Creatinine [Mass/Vol] 0.67 mg/dL Normal 0.50 - 1.05 [facility] Comment on above: Performed By: #### U A #### [address] [id number] eGFR FEMALE >90 Normal >90 [facility] Comment on above: Result Comment: CALC ULATIONS OF ESTIMATED GFR ARE PERFORMED USING THE 2020 CKD-EPI STUDY REFIT EQUATION WITHOUT THE RACE VARIABLE FOR THE IDMS-TRACEABLE CREATININE METHODS. https://jasn.asnjournals.org/content/early//ASN.026348119 8 Performed By: #### U A #### [address] [id number] Glucose [Mass/Vol] 95 mg/dL Normal 74 - 99 [facility] Comment on above: Performed By: #### U A #### [address] [id number] HCO3 (Bld) [Moles/Vol] 25 mmol/L Normal 21 - 32 [facility] Comment on above: Performed By: #### U A #### [address] [id number] Potassium [Moles/Vol] 3.2 mmol/L Low 3.5 - 5.3 [facility] Comment on above: Performed By: #### U A #### [address] [id number] Protein [Mass/Vol] 7.4 g/dL Normal 6.4 - 8.2 [facility] Comment on above: Performed By: #### U A #### [address] [id number] Sodium [Moles/Vol] 137 mmol/L Normal 136 - 145 [facility] Comment on above: Performed By: #### U A #### [address] [id number] Urea nitrogen [Mass/Vol] 14 mg/dL Normal 6 - 23 [facility] Comment on above: Performed By: #### U A #### [address] [id number] HCG,BETA-QUANTITATIVEon HCG,BETA-QUANTITAT ENZO <[address] [facility] Comment on above: Result Comment: . Total HCG measurement is performed using the [employer] Access Immunoassay which detects intact HCG and free beta HCG subunit. . This test is not indicated for use as a tumor marker. HCG testing is performed using a different test methodology at [facility] than other [facility]. Direct result comparison should only be made within the same method. REF VALUES NON FEMALE <5 MALES <5 Performed By: #### U A #### [address] [id number] Provider Note - ED v3on Provider Note [...] dictated by speech recognition. Minor errors in schedule clerk may be present. Please call if questions. [...] Attestation, C (more content not included)... Normal [facility] Risk Screen - Adult Emergenc yon 09-08-2022 Risk Screen - Adult Emergency Preferred Language: Preferred Language: Preferred Language for Discussing Health Care (patient/designee)Mauritanian Patient Preferred Pharmacy: Patient Preferred Pharmacy Statement: [...] board Learning Preferencesaudio Cultural Considerationsnone Developmental Considerationsnone Baptist Considerationsnone Learning Assessment (Other Learner): Learning Assessment [...] an injured patient at a Trauma Center ([facility]/[place]): no Electronic Signatures: Adonis Melchor (RN) (Signed 08-Sep-2022 20:07) Authored: Preferred Language, Patient Preferred Pharmacy, Advanced Directives, Family Violence Adult, Learning Assessment (Patient), Learning Assessment (Other Learner), Pressure Injury/TB/Substance, Pressure Injury, CAGE Last Updated: 08-Sep-2022 20:07 by Adonis Melchor (RN) Normal [facility] Triage - EDon 09-08-2022 Triage - ED [...] BMI (kg/m2): 23.496 Calculated BSA (m2) 1.75 [place] Coma Scale: Best Eye Response: (E4) spontaneous Best Motor Response: (M6) obeys commands Best Verbal Response: (V5) oriented [place] Score: 15 Allergies: no Patient has homicidal [...] patient cognitively impaired not cognitively impaired Interventions: Carlin Fall Interventions: LOW INTERVENTIONS: *patient [...] Last Updated: 08-Sep-2022 15:36 by Mechelle Garcia) [facility] Michael 10-20-2021 IVIS Telephone (4CQ) -- HERNÁNDEZJULIETTE Freeman ([id number]) 1995 F Date Time Provider Department 10/20/21 JUAN ANTONIO ESQUEDA 4CQ During your visit today, we recorded the following information about you: Beny Pope 10/20/2021 9:39 AM Signed Juliette Hernández called today. : 1995 Allergies: Patient has no known allergies. (home) [phone] (cell) Reason for call: Patient calling asking for an alternative medication of Miconazole Nitrate (MONISTAT 3) 200 mg/5 gram (4 %) cream. Insurance does not cover this for patient. Requesting call back if any issues. Confirmed [facility] Sue as pharmacy Patient last appointment: Visit date not found The patients preferred pharmacy has been captured for this encounter? yes Beny Mcconnell, OFFICE HELPER CLERICAL.MANAGER ARCHITECTURAL 10/20/2021 9:52 AM Signed rx sent for [...] Status:Closed by TAL MCCONNELL on 10/20/21 Normal [facility] JULIETTE HERNÁNDEZ ([id number]) 1995 F Date Time Provider Department 10/18/21 JUAN ANTONIO ESQUEDA [facility] During your visit today, we recorded [...] by JUAN ANTONIO ESQUEDA on 10/18/21 Normal [facility] Bact Vag Amplificationon Bact Vag Amplification Positive Critically abnormal Negative for bacterial vaginosis [facility] Comment on above: Performed By: #### C VTV, BVAMP #### [facility] [address] [place], [place] [address] CNOVon 10-16-2021 CNOV Office Visit (EXPCHC ) -- JULIETTE HERNÁNDEZ ([id number]) 1995 F Date Time Provider Department 10/16/21 9:05 AM JUAN ANTONIO ESQUEDA During your visit today, we recorded the following information about you: Temperature Pulse Respiration Blood pressure 98 degrees 64/minute 20/minute 117/66 Weight Last Period 70.1 kg 10/09/21 Juan Antonio Esqueda PA-C 10/16/2021 10:24 AM Addendum This note was created using Lumavitariter. Subjective Juliette Hernández is a 26 year [...] Exam Vitals reviewed. Exam conducted with a clod puller present (Latia Pantoja MA present for exam). [...] VAGINOSIS AMPL (more content not included)... Normal [facility] Sultana Trich Amplon 021 Sultana glabrata RNA Negative Normal Negative [facility] Comment on above: Performed By: #### C VTV, BVAMP #### [place] [id number] Sultana sp group RNA Positive Critically abnormal Negative [facility] Comment on above: Performed By: #### C VTV, BVAMP #### [place] [id number] Trichomonas RNA Negative Normal [facility] Comment on above: Performed By: #### C VTV, BVAMP #### [place] [phone] GC/Chlamydia Amplifon 2020 Chlamydia Amplif Negative Normal [facility] Comment on above: Performed By: #### G CCT #### [place] [id number] [phone] GC Amplification Negative Normal [facility] Comment on above: Performed By: #### G CCT #### [place] [id number] [place] [phone] GC/Chlam Amp Source Cervix Normal [facility] Comment on above: Performed By: #### G CCT #### [facility] [address] [place] [id number] Urine Cultureon 10-16-2021 Bacteria identified Cx Nom (U) Sp. Request/Comment: - Specimen received in preservative Culture Result - <10,000 CFU/ml Normal urogenital brenda Normal [facility] Comment on above: Performed By: #### U RCUL #### [facility] [address] [place], [place] [address] CNPNon 07-17-2021 CNPN Telephone (EXPCHC) -- JULIETTE HERNÁNDEZ ([id number]) 1995 F Date Time Provider Department 07/17/21 [facility] your visit today, we recorded [...] Encounter Status:Closed by RETA CHAVEZ on 07/17/21 [facility] CNCOon 07-15-2021 CNCO Letter Text [facility] CNOVon 07-15-2021 CNOV Office Visit (EXPCHC ) -- JULIETTE HERNÁNDEZ ([id number]) 1995 F Date Time Provider Department 07/15/21 1:15 PM RUBINA LALA EXPNEDAC During your visit today, we recorded the following information about you: Temperature Pulse Blood pressure Last Period 97.7 degrees 71/minute 117/75 05/07/21 Rubina Lala PA-C 07/15/2021 1:58 PM Signed This note was created using 10X10 Room. Subjective Juliette Hernández is a 26 year [...] causes COVID-19 (more content not included)... Normal [facility] Coronavirus 2019on 1 SARS-CoV-2 (COVID-19) RNA JOSE R+probe Ql (Unsp spec) UPPER RESPIRATORY TRACT SWAB Normal [facility] Comment on above: Performed By: #### C OVID #### [place] [id number] SARS-CoV-2 (COVID-19) RNA JOSE R+probe Ql (Unsp spec) Positive for COVID19 (SARS CoV2) by RT-PCR or equivalent method. Critically abnormal Negative for COVID19 (SARS CoV2) by RT-PCR or equivalent method. [facility] Comment on above: Result Comment: This test was developed and its performance characteristics determined by [facility] [place]. This test has been authorized by FDA under an Emergency Use Authorization (EUA). This test has been validated in accordance with the FDA's Guidance Document Policy for Diagnostics Testing in Laboratories Certified to Perform High Complexity Testing under CLIA prior to Emergency use Authorization for Coronavirus Disease 2019 during the Public Health Emergency issued on January 02, 2020. Test performed by [facility], [facility] [place], [address] [place] [address]. Performed By: #### C OVID #### [place] [id number] Cult, Urineon 06-02-2020 Bacteria identified Cx Nom (U) PATIENT: JULIETTE HERNÁNDEZ LOCATION: [facility] [place] [facility] BILL#: [id number] : [birth year] AGE: SEX: F ORDERED BY: RADHA WISDOM: URINE COLLECTED: 06/02/20 12:48ANTIBIOTICS AT MISSY.: RECEIVED : 06/03/20 00:40SITE: Clean Catch/Voided R E S U L T S URINE CULTURE,BACTERIAL FINAL 06/03/20 23:49 NO SIGNIFICANT GROWTH. JO-TUIT-Rmfk [facility] Work Phone: GC + Chlamydia By Amplified Detectionon 06-02-2020 C. trachomatis rRNA JOSE R+probe Ql (Unsp spec) Positive Abnormal Negative ZU-KMVS-Dxrt [facility] Work Phone: N. gonorrhoeae rRNA JOSE R+probe Ql (Unsp spec) Positive Abnormal Negative PX-KBCI-Xxiw [facility] Work Phone: Comment on above: SOURCE: Urine IO UA (automated w/o microsc opy)on 06-02-2020 Protein (U) [Mass/Vol] Negative TP-ERPU-Gkvp [facility] Work Phone: IO UA (automated w/o microscopy) Negative HU-EQDI-Huyi [facility] Work Phone: IO UA (automated w/o microscopy) Hemolyzed trace IW-WIWK-Cmac [facility] [facility] Work Phone: IO UA (automated w/o microscopy) 7.5 LD-GRIV-Jiyj [facility] Work Phone: IO UA (automated w/o microscopy) Yellow HZ-XQOC-Ukmw [facility] Work Phone: IO UA (automated w/o microscopy) Normal KZ-KUJO-Ihoc [facility] Work Phone: IO UA (automated w/o microscopy) 1.015 SE-CQAM-Oose [facility] Work Phone: IO UA (automated w/o microscopy) Clear PX-SLIX-Cxwr [facility] Work Phone: Otheron 06-02-2020 Negative Negative GD-BMCL-Ijkp [address] [facility] Work Phone: Comment on above: SOURCE: Urine CBCon 01-20-2019 Erythrocyte distribution width Ratio (RBC) 13.9 % Normal 12.0-15.4 [facility] Comment on above: Performed By: #### U ARFX #### [facility] [address] [place] [address] Hematocrit Volume Fraction (Bld) 27.4 % Low 36.5-46.6 [facility] Comment on above: Performed By: #### U ARFX #### [facility] [address] [place] [address] Hemoglobin mass conc (Bld) 9.0 g/dL Low 11.8-15.3 [facility] Comment on above: Performed By: #### U ARFX #### [facility] [address] [place] [address] MCH Entitic mass (RBC) 30.1 pg Normal 27.5-33.0 [facility] Comment on above: Performed By: #### U ARFX #### [facility] [address] [place] [address] MCHC mass conc (RBC) 32.8 g/dL Normal 30.1-35.0 [facility] Comment on above: Performed By: #### U ARFX #### [facility] [address] [place] [address] MCV Entitic volume (RBC) 91.6 fL Normal 85.4-100.0 [facility] Comment on above: Performed By: #### U ARFX #### [facility] [address] [place] [address] NRBC Absolute 0.00 10*3/uL Normal [facility] Comment on above: Performed By: #### U ARFX #### [facility] [address] [place] [address] NRBC Automated 0.0 /100{WBCs} Normal [facility] Comment on above: Performed By: #### U ARFX #### [facility] [address] [place] [address] Platelet mean volume Entitic volume (Bld) 10.4 fL Normal 9.9-12.1 [facility] Comment on above: Performed By: #### U ARFX #### [facility] [address] [place] [address] Platelets #/vol (Bld) 181 10*3/uL Normal 155-404 [facility] Comment on above: Performed By: #### U ARFX #### [facility] [address] [place], [place] [id number] RBC #/vol (Bld) 2.99 10*6/uL Low 3.85-5.10 [facility] Comment on above: Performed By: #### U ARFX #### [facility] [address] [place] [address] RDW SD 46.8 fL Normal 39.3-48.6 [facility] Comment on above: Performed By: #### U ARFX #### [facility] [address] [place] [address] WBC #/vol (Bld) 11.7 10*3/uL High 4.4-9.9 [facility] Comment on above: Performed By: #### U ARFX #### [facility] [address] [place] [address] CBC With Differentialon 01-02 Basophils #/vol (Bld) 0.04 10*3/uL Normal 0.01-0.07 [facility] Comment on above: Performed By: #### U ARFX #### [facility] [address] [place], [place] [id number] Basophils/100 WBC (Bld) 0.4 % Normal 0.1-1.2 [facility] Comment on above: Performed By: #### U ARFX #### [facility] [address] [place] [address] Eosinophils #/vol (Bld) 0.03 10*3/uL Low 0.04-0.50 [facility] Comment on above: Performed By: #### U ARFX #### [facility] [address] [place] [address] Eosinophils/100 WBC (Bld) 0.3 % Normal 0.0-8.1 [facility] Comment on above: Performed By: #### U ARFX #### [facility] [address] [place] [address] Erythrocyte distribution width Ratio (RBC) 14.0 % Normal 12.0-15.4 [facility] Comment on above: Performed By: #### U ARFX #### [facility] [address] [place] [address] Hematocrit Volume Fraction (Bld) 32.8 % Low 36.5-46.6 [facility] Comment on above: Performed By: #### U ARFX #### [facility] [address] [place] [address] Hemoglobin mass conc (Bld) 10.8 g/dL Low 11.8-15.3 [facility] Comment on above: Performed By: #### U ARFX #### [facility] [address] [place] [address] Imm Grans Absolute 0.04 10*3/uL Normal 0.00-0.21 [facility] Comment on above: Performed By: #### U ARFX #### [facility] [address] [place] [address] Immature granulocytes #/vol (Bld) 0.4 % Normal [facility] Comment on above: Performed By: #### U ARFX #### [facility] [address] [place] [address] Lymphocytes #/vol (Bld) 1.96 10*3/uL Normal 0.40-2.84 [facility] Comment on above: Performed By: #### U ARFX #### [facility] [address] [place] [address] Lymphocytes/100 WBC (Bld) 19.6 % Normal 15.7-50.5 [facility] Comment on above: Performed By: #### U ARFX #### [facility] [address] [place] [address] MCH Entitic mass (RBC) 30.2 pg Normal 27.5-33.0 [facility] Comment on above: Performed By: #### U ARFX #### [facility] [address], [place] [address] MCHC mass conc (RBC) 32.9 g/dL Normal 30.1-35.0 [facility] Comment on above: Performed By: #### U ARFX #### [facility] [address] [place] [address] MCV Entitic volume (RBC) 91.6 fL Normal 85.4-100.0 [facility] Comment on above: Performed By: #### U ARFX #### [facility] [address] [place] [address] Monocytes #/vol (Bld) 1.00 10*3/uL High 0.25-0.83 [facility] Comment on above: Performed By: #### U ARFX #### [facility] [address] [place] [address] Monocytes/100 WBC (Bld) 10.0 % Normal 4.8-12.7 [facility] Comment on above: Performed By: #### U ARFX #### [facility] [address] [place] [address] Neutrophils Absolute 6.91 10*3/uL High 1.95-6.85 [facility] Comment on above: Performed By: #### U ARFX #### [facility] [address] [place] [address] Neutrophils/100 WBC (Bld) 69.3 % Normal 36.8-73.2 [facility] Comment on above: Performed By: #### U ARFX #### [facility] [address] [place] [address] NRBC Absolute 0.00 10*3/uL Normal [facility] Comment on above: Performed By: #### U ARFX #### [facility] [address] [place] [address] NRBC Automated 0.0 /100{WBCs} Normal [facility] Comment on above: Performed By: #### U ARFX #### [facility] [address] [place] [address] Platelet mean volume Entitic volume (Bld) 11.0 fL Normal 9.9-12.1 [facility] Comment on above: Performed By: #### U ARFX #### [facility] [address] [place] [address] Platelets #/vol (Bld) 186 10*3/uL Normal 155-404 [facility] Comment on above: Performed By: #### U ARFX #### [facility] [address] [place] [address] RBC #/vol (Bld) 3.58 10*6/uL Low 3.85-5.10 [facility] Comment on above: Performed By: #### U ARFX #### [facility] [address] [place] [address] RDW SD 46.7 fL Normal 39.3-48.6 [facility] Comment on above: Performed By: #### U ARFX #### [facility] [address] [place] [address] WBC #/vol (Bld) 10.0 10*3/uL High 4.4-9.9 [facility] Comment on above: Performed By: #### U ARFX #### [facility] [address] [place] [address] Drugs of Abuse, Urine(7)on 0 01-19-2019 Amphetamines/Metam phetamines, Urine Not Detected Normal [facility] Comment on above: Performed By: #### U ARFX #### [facility] [address] [place] [address] Barbiturates, Urine Not Detected Normal [facility] Comment on above: Performed By: #### U ARFX #### [facility] [address] [place] [address] Benzodiazepines, Urine Not Detected Normal [facility] Comment on above: Performed By: #### U ARFX #### [facility] [address] [place] [address] Cannabinoids, Urine Not Detected Normal [facility] Comment on above: Performed By: #### U ARFX #### [facility] [address] [place] [address] Cocaine, Urine Not Detected Normal [facility] Comment on above: Performed By: #### U ARFX #### [facility] [address] [place] [address] Methadone, Urine Not Detected Normal [facility] Comment on above: Performed By: #### U ARFX #### [facility] [address] [place], [place] [id number] Opiates, Urine Not Detected Normal [facility] Comment on above: Performed By: #### U ARFX #### [facility] [address] [place] [address] PCP, Urine Not Detected Normal [facility] Comment on above: Result Comment: Urin e toxicology screen results are to be used for medical purposes only. It is recommended that any result reported as Detected be confirmed by a more specific alternative chemical method. Drug Analyzed Cutoff Concentration(ng/mL) Barbiturates 200 Benzodiazepines 200 Cocaine 150 Opiates 300 Amphetamines 500 Cannabinoids 50 Methadone 150 PCP 25 Performed By: #### U ARFX #### [facility] [address] [place] [address] Pathology ([facility])on 01-19-2019 Pathology ([facility]) Copy To: KEYSHA [place] FINAL SURGICAL PATHOLOGY [...] SPECIMEN(S): (A) PLACENTA, THIRD TRIMESTER Performed at [facility], [address] [place] [address] GROSS DESCRIPTION: Received fresh, labeled with the [...] are noted. The surface is slightly opaque. [employer] sections of cord, membranes, and placenta are [...] above: Performed By: #### U ARFX #### [facility] [address] [place] [address] Type and Screenon 01-19-2019 Group and Rh Positive Normal [facility] Comment on above: Performed By: #### U ARFX #### [facility] [address] [place] [address] Urinalysison 01-19-2019 Amorphous Crystal Occasional Normal None [facility] Comment on above: Performed By: #### U ARFX #### [facility] [address] [place] [address] Appearance Nom (U) Cloudy Normal Clear [facility] Comment on above: Performed By: #### U ARFX #### [facility] [address] [place] [address] Ascorbic Acid Negative Normal Negative [facility] Comment on above: Performed By: #### U ARFX #### [facility] [address] [place] [address] Automated Urine Microscopy Performed Normal [facility] Comment on above: Performed By: #### U ARFX #### [facility] [address] [place] [address] Bacteria LM.HPF #/area (Urine sed) Occasional Normal None [facility] Comment on above: Performed By: #### U ARFX #### [facility] [address] [place] [address] Bilirubin mass conc Negative Normal Negative [facility] Comment on above: Performed By: #### U ARFX #### [facility] [address] [place] [address] Blood Negative Normal Negative [facility] Comment on above: Performed By: #### U ARFX #### [facility] [address] [place] [address] Color Nom (U) Yellow Normal [facility] Comment on above: Performed By: #### U ARFX #### [facility] [address] [place] [address] Glucose mass conc Negative Normal Negative [facility] Comment on above: Performed By: #### U ARFX #### [facility] [address] [place] [address] Ketones Ql (U) Negative Normal Negative [facility] Comment on above: Performed By: #### U ARFX #### [facility] [address] [place] [address] Leukocytes Esterase Large Abnormal Negative [facility] Comment on above: Performed By: #### U ARFX #### [facility] [address] [place] [address] Nitrite Ql (U) Negative Normal Negative [facility] Comment on above: Performed By: #### U ARFX #### [facility] [address] [place] [address] pH (Bld) 7.0 Normal 5.0-9.0 [facility] Comment on above: Performed By: #### U ARFX #### [facility] [address] [place] [address] Protein mass conc (U) Negative Normal Negative [facility] Comment on above: Performed By: #### U ARFX #### [facility] [address] [place] [address] RBC 11 /[HPF] Normal 0-3 [facility] Comment on above: Performed By: #### U ARFX #### [facility] [address] [place] [address] Specific gravity Relative Density (U) 1.010 Normal 1.003-1.035 [facility] Comment on above: Performed By: #### U ARFX #### [facility] [address] [place] [address] Squamous Epithelial Cells 29 /[HPF] Normal 0-5 [facility] Comment on above: Performed By: #### U ARFX #### [facility] [address] [place] [address] Urobilinogen Qn (U) 2.0 mg/dL Abnormal Negative [facility] Comment on above: Result Comment: Due to a manufacturing issue, low positive urobilinogen results may be falsely positive. Correlate with urine bilirubin and additional clinical/laboratory findings to assess the risk of hemolytic anemia or liver disease. If clinically indicated, repeat testing with an alternate method is available by contacting the laboratory within 24 hours. Performed By: #### U ARFX #### [facility] [address] [place] [address] WBC 32 /[HPF] Normal 0-5 [facility] Comment on above: Performed By: #### U ARFX #### [facility] [address] [place] [address] Culture, Group B Strep Scree non 12-25-2018 Culture, Group B Strep Screen BILL#: [id number] : 89 AGE: SEX: F AMBULATORY SOURCE: COLLECTED: 12/25/18 19:16 ANTIBIOTICS AT MISSY.: RECEIVED : 12/25/18 22:00 SITE: R E S U L T S GROUP B STREP SCREEN FINAL 12/27/18 08:44 NEGATIVE FOR GROUP B BETA STREP. Normal [facility] Comment on above: Performed By: #### C XBUR #### [facility] [address] [place] [address] Culture, Urine Bacterialon 0 12-25-2018 Culture, Urine Bacterial BILL#: [id number] : 89 AGE: SEX: F AMBULATORY SOURCE: URINE COLLECTED: 12/25/18 19:15 ANTIBIOTICS AT MISSY.: RECEIVED : 12/25/18 21:58 SITE: Unspecified R E S U L T S URINE CULTURE,BACTERIAL FINAL 12/26/18 15:49 NO SIGNIFICANT GROWTH. Normal [facility] Comment on above: Performed By: #### C XBUR #### [facility] [address] [place] [address] N. gonorrhoeae/C. trachomati s, Amplifiedon 12-25-2018 Chlamydia trachomatis, Amplified Negative Normal Negative [facility] Comment on above: Performed By: #### C XBUR #### [facility] [address] [place] [address] GC/CHLAM/TRICA Source Swab-Endocerv Normal [facility] Comment on above: Performed By: #### C XBUR #### [facility] [address] [place] [address] Neisseria gonorrhoeae, Amplified Negative Normal Negative [facility] Comment on above: Performed By: #### C XBUR #### [facility] [address] [place] [address] Trichmonas, Amplified Detect ionon 12-25-2018 Trichomonas, Amplified Negative Normal Negative [facility] Comment on above: Performed By: #### C XBUR #### [facility] [address] [place] [address] CBCon 12-11-2018 Erythrocyte distribution width Ratio (RBC) 13.0 % Normal 12.0-15.4 [facility] Comment on above: Performed By: #### C XBUR #### [facility] [address] [place] [address] Hematocrit Volume Fraction (Bld) 33.0 % Low 36.5-46.6 [facility] Comment on above: Performed By: #### C XBUR #### [facility] [address] [place] [address] Hemoglobin mass conc (Bld) 10.8 g/dL Low 11.8-15.3 [facility] Comment on above: Performed By: #### C XBUR #### [facility] [address] [place] [address] MCH Entitic mass (RBC) 29.8 pg Normal 27.5-33.0 [facility] Comment on above: Performed By: #### C XBUR #### [facility] [address] [place] [address] MCHC mass conc (RBC) 32.7 g/dL Normal 30.1-35.0 [facility] Comment on above: Performed By: #### C XBUR #### [facility] [address] [place] [address] MCV Entitic volume (RBC) 91.2 fL Normal 85.4-100.0 [facility] Comment on above: Performed By: #### C XBUR #### [facility] [address] [place] [address] NRBC Absolute 0.00 10*3/uL Normal [facility] Comment on above: Performed By: #### C XBUR #### [facility] [address] [place] [address] NRBC Automated 0.0 /100{WBCs} Normal [facility] Comment on above: Performed By: #### C XBUR #### [facility] [address] [place] [address] Platelet mean volume Entitic volume (Bld) 9.8 fL Low 9.9-12.1 [facility] Comment on above: Performed By: #### C XBUR #### [facility] [address] [place] [address] Platelets #/vol (Bld) 228 10*3/uL Normal 155-404 [facility] Comment on above: Performed By: #### C XBUR #### [facility] [address] [place] [address] RBC #/vol (Bld) 3.62 10*6/uL Low 3.85-5.10 [facility] Comment on above: Performed By: #### C XBUR #### [facility] [address] [place] [address] RDW SD 43.0 fL Normal 39.3-48.6 [facility] Comment on above: Performed By: #### C XBUR #### [facility] [address] [place] [address] WBC #/vol (Bld) 9.6 10*3/uL Normal 4.4-9.9 [facility] Comment on above: Performed By: #### C XBUR #### [facility] [address] [place] [address] Comprehensive Metabolic Pane adriano 12-11-2018 Albumin mass conc 3.4 g/dL Normal 3.4-5.0 [facility] Comment on above: Performed By: #### C XBUR #### [facility] [address] [place] [address] Albumin/Globulin mass ratio 1.1 {ratio} Normal 0.9-2.4 [facility] Comment on above: Performed By: #### C XBUR #### [facility] [address] [place] [address] ALP enzyme act/vol 97 U/L Normal 45-117 [facility] Comment on above: Performed By: #### C XBUR #### [facility] [address] [place] [address] ALT enzyme act/vol 16 U/L Normal 7-45 [facility] Comment on above: Performed By: #### C XBUR #### [facility] [address] [place] [address] Anion gap molar conc 13 mmol/L Normal 10-20 [facility] Comment on above: Performed By: #### C XBUR #### [facility] [address] [place] [address] AST enzyme act/vol 14 U/L Normal 13-39 [facility] Comment on above: Performed By: #### C XBUR #### [facility] [address] [place] [address] Bilirubin mass conc 0.4 mg/dL Normal 0.0-1.2 [facility] Comment on above: Performed By: #### C XBUR #### [facility] [address] [place] [address] Calcium mass conc 8.8 mg/dL Normal 8.6-10.3 [facility] Comment on above: Performed By: #### C XBUR #### [facility] [address] [place] [address] Chloride molar conc 103 mmol/L Normal 98-107 [facility] Comment on above: Performed By: #### C XBUR #### [facility] [address] [place] [address] Creatinine mass conc 0.41 mg/dL Low 0.50-1.05 [facility] Comment on above: Performed By: #### C XBUR #### [facility] [address] [place] [address] GFR/1.73 sq M.predicted MDRD vol rate/area mL/min/{1.73_m2} Normal [facility] Comment on above: Result Comment: Inte rpretation for Chronic Kidney Disease: Stages 1&2 >60 Healthy or potential kidney damage. Mild decrease of GFR. Stage 3 30-59 Moderate decrease of GFR. Stage 4 15-29 Severe decrease of GFR. Stage 5 <15 Kidney failure or on dialysis. Performed By: #### C XBUR #### [facility] [address] [place] [address] Glucose mass conc 87 mg/dL Normal 70-100 [facility] Comment on above: Performed By: #### C XBUR #### [facility] [address] [place] [address] HCO3 molar conc (Bld) 26 mmol/L Normal 21-32 [facility] Comment on above: Performed By: #### C XBUR #### [facility] [address] [place] [address] Potassium molar conc 4.1 mmol/L Normal 3.5-5.1 [facility] Comment on above: Performed By: #### C XBUR #### [facility] [address] [place] [address] Protein mass conc 6.4 g/dL Normal 6.4-8.2 [facility] Comment on above: Performed By: #### C XBUR #### [facility] [address] [place] [address] Sodium molar conc 138 mmol/L Normal 136-145 [facility] Comment on above: Performed By: #### C XBUR #### [facility] [address] [place] [address] Urea nitrogen mass conc 5 mg/dL Low 6-23 [facility] Comment on above: Performed By: #### C XBUR #### [facility] [address] [place] [address] Urea nitrogen/Creatinin e mass ratio 12 mg/mg Normal 5-25 [facility] Comment on above: Performed By: #### C XBUR #### [facility] [address] [place] [address] Drugs of Abuse, Urine(7)on 0 12-11-2018 Amphetamines/Metam phetamines, Urine Not Detected Normal [facility] Comment on above: Performed By: #### C XBUR #### [facility] [address] [place] [address] Barbiturates, Urine Not Detected Normal [facility] Comment on above: Performed By: #### C XBUR #### [facility] [address] [place] [address] Benzodiazepines, Urine Not Detected Normal [facility] Comment on above: Performed By: #### C XBUR #### [facility] [address] [place] [address] Cannabinoids, Urine Not Detected Normal [facility] Comment on above: Performed By: #### C XBUR #### [facility] [address] [place] [address] Cocaine, Urine Not Detected Normal [facility] Comment on above: Performed By: #### C XBUR #### [facility] [address] [place] [address] Methadone, Urine Not Detected Normal [facility] Comment on above: Performed By: #### C XBUR #### [facility] [address] [place] [address] Opiates, Urine Not Detected Normal [facility] Comment on above: Performed By: #### C XBUR #### [facility] [address] [place] [address] PCP, Urine Not Detected Normal [facility] [...] 25 Performed By: #### C XBUR #### [facility] [address] [place] [address] Urinalysison 12-11-2018 Amorphous Crystal Occasional Normal None [facility] Comment on above: Performed By: #### C XBUR #### [facility] [address] [place] [address] Appearance Nom (U) Cloudy Normal Clear [facility] Comment on above: Performed By: #### C XBUR #### [facility] [address] [place] [address] Ascorbic Acid Negative Normal Negative [facility] Comment on above: Performed By: #### C XBUR #### [facility] [address] [place] [address] Automated Urine Microscopy Performed Normal [facility] Comment on above: Performed By: #### C XBUR #### [facility] [address] [place] [address] Bilirubin mass conc Negative Normal Negative [facility] Comment on above: Performed By: #### C XBUR #### [facility] [address] [place] [address] Blood Negative Normal Negative [facility] Comment on above: Performed By: #### C XBUR #### [facility] [address] [place] [address] Color Nom (U) Yellow Normal [facility] Comment on above: Performed By: #### C XBUR #### [facility] [address] [place] [address] Glucose mass conc Negative Normal Negative [facility] Comment on above: Performed By: #### C XBUR #### [facility] [address] [place] [address] Ketones Ql (U) Negative Normal Negative [facility] Comment on above: Performed By: #### C XBUR #### [facility] [address] [place] [address] Leukocytes Esterase Trace Abnormal Negative [facility] Comment on above: Performed By: #### C XBUR #### [facility] [address] [place] [address] Mucous Rare Normal None [facility] Comment on above: Performed By: #### C XBUR #### [facility] [address] [place] [address] Nitrite Ql (U) Negative Normal Negative [facility] Comment on above: Performed By: #### C XBUR #### [facility] [address] [place] [address] pH (Bld) 7.0 Normal 5.0-9.0 [facility] Comment on above: Performed By: #### C XBUR #### [facility] [address] [place] [address] Protein mass conc (U) Negative Normal Negative [facility] Comment on above: Performed By: #### C XBUR #### [facility] [address] [place] [address] RBC 3 /[HPF] Normal 0-3 [facility] Comment on above: Performed By: #### C XBUR #### [facility] [address] [place] [address] Specific gravity Relative Density (U) 1.014 Normal 1.003-1.035 [facility] Comment on above: Performed By: #### C XBUR #### [facility] [address] [place] [address] Squamous Epithelial Cells 23 /[HPF] Normal 0-5 [facility] Comment on above: Performed By: #### C XBUR #### [facility] [address] [place] [address] Urobilinogen Qn (U) <2.0 Normal Negative [facility] Comment on above: Result Comment: Due to a manufacturing issue, low positive urobilinogen results may be falsely positive. Correlate with urine bilirubin and additional clinical/laboratory findings to assess the risk of hemolytic anemia or liver disease. If clinically indicated, repeat testing with an alternate method is available by contacting the laboratory within 24 hours. Performed By: #### C XBUR #### [facility] [address] [place] [address] WBC 3 /[HPF] Normal 0-5 [facility] Comment on above: Performed By: #### C XBUR #### [facility] [address] [place] [address] Drugs of Abuse, Urine(7)on 0 - Amphetamines/Metam phetamines, Urine Not Detected Normal [facility] Comment on above: Performed By: #### C XBUR #### [facility] [address] [place] [address] Barbiturates, Urine Not Detected Normal [facility] Comment on above: Performed By: #### C XBUR #### [facility] [address] [place] [address] Benzodiazepines, Urine Not Detected Normal [facility] Comment on above: Performed By: #### C XBUR #### [facility] [address] [place] [address] Cannabinoids, Urine Not Detected Normal [facility] Comment on above: Performed By: #### C XBUR #### [facility] [address] [place] [address] Cocaine, Urine Not Detected Normal [facility] Comment on above: Performed By: #### C XBUR #### [facility] [address] [place] [address] Methadone, Urine Not Detected Normal [facility] Comment on above: Performed By: #### C XBUR #### [facility] [address] [place] [address] Opiates, Urine Not Detected Normal [facility] Comment on above: Performed By: #### C XBUR #### [facility] [address] [place] [address] PCP, Urine Not Detected Normal [facility] [...] 25 Performed By: #### C XBUR #### [facility] [address] [place] [address] Urinalysison 12-01-2018 Appearance Nom (U) Clear Normal Clear [facility] Comment on above: Performed By: #### G CCHA #### [facility] [address] [place] [address] Ascorbic Acid Positive Normal Negative [facility] Comment on above: Result Comment: Pres ence of Ascorbic Acid may interfere with the detection of blood, glucose, nitrite, and bilirubin. Performed By: #### G CCHA #### [facility] [address] [place] [address] Automated Urine Microscopy Performed Normal [facility] Comment on above: Performed By: #### G CCHA #### [facility] [address] [place] [address] Bilirubin mass conc Negative Normal Negative [facility] Comment on above: Performed By: #### [facility] #### [facility] [address] [place] [address] Blood Negative Normal Negative [facility] Comment on above: Performed By: #### G CCHA #### [facility] [address] [place] [address] Budding Yeast Rare Normal None [facility] Comment on above: Performed By: #### G CCHA #### [facility] [address] [place] [address] Color Nom (U) Yellow Normal [facility] Comment on above: Performed By: #### G CCHA #### [facility] [address] [place] [address] Glucose mass conc Negative Normal Negative [facility] Comment on above: Performed By: #### G CCHA #### [facility] [address] [place] [address] Ketones Ql (U) Negative Normal Negative [facility] Comment on above: Performed By: #### G CCHA #### [facility] [address] [place] [address] Leukocytes Esterase Small Abnormal Negative [facility] Comment on above: Performed By: #### [facility] #### [facility] [address] [place] [address] Mucous Rare Normal None [facility] Comment on above: Performed By: #### G CCHA #### [facility] [address] [place] [address] Nitrite Ql (U) Negative Normal Negative [facility] Comment on above: Performed By: #### [facility] #### [facility] [address] [place] [address] pH (Bld) 7.0 Normal 5.0-9.0 [facility] Comment on above: Performed By: #### [facility] #### [facility] [address] [place] [address] Protein mass conc (U) Negative Normal Negative [facility] Comment on above: Performed By: #### [facility] #### [facility] [address] [place] [address] RBC 3 /[HPF] Normal 0-3 [facility] Comment on above: Performed By: #### [facility] #### [facility] [address] [place] [address] Specific gravity Relative Density (U) 1.016 Normal 1.003-1.035 [facility] Comment on above: Performed By: #### [facility] #### [facility] [address] [place] [address] Squamous Epithelial Cells 12 /[HPF] Normal 0-5 [facility] Comment on above: Performed By: #### [facility] #### [facility] [address] [place] [address] Urobilinogen Qn (U) <2.0 Normal Negative [facility] [...] within 24 hours. Performed By: #### [facility] #### [facility] [address] [place] [address] WBC 2 /[HPF] Normal 0-5 [facility] Comment on above: Performed By: #### G CCHA #### [facility] [address] [place] [address] Vaginal Pathogen DNAon 12-01 Estrada Vag DNA Probe Positive Abnormal Negative [facility] Comment on above: Performed By: #### C XBROSALINA #### [facility] [address] [place] [address] Protein mass conc Negative Normal Negative [facility] Comment on above: Performed By: #### C XBROSALINA #### [facility] [address] [place] [address] Trich Vag DNA Probe Negative Normal Negative [facility] Comment on above: Performed By: #### C XBROSALINA #### [facility] [address] [place] [address] Ferritinon 11-13-2018 Ferritin mass conc 6 ng/mL Low 8-150 [facility] Comment on above: Performed By: #### [facility] #### [facility] [address] [place] [address] Folate/B12on 11-13-2018 Cobalamin (Vitamin B12) mass conc 239 pg/mL Normal 211-911 [facility] Comment on above: Performed By: #### [facility] #### [facility] [address] [place] [address] Folate 21.10 ng/mL Normal [facility] Comment on above: Result Comment: Norm al Range >5.0 Performed By: #### [facility] #### [facility] [address] [place] [address] N. gonorrhoeae/C. trachomati s, Amplifiedon 11-13-2018 Chlamydia trachomatis, Amplified Negative Normal Negative [facility] Comment on above: Performed By: #### [facility] #### [facility] [address] [place] [address] GC/CHLAM/TRICA Source Swab-Endocerv Normal [facility] Comment on above: Performed By: #### [facility] #### [facility] [address] [place] [address] Neisseria gonorrhoeae, Amplified Negative Normal Negative [facility] Comment on above: Performed By: #### [facility] #### [facility] [address] [place] [address] Vaginal Pathogen DNAon 11-13 Estrada Vag DNA Probe Positive Abnormal Negative [facility] Comment on above: Performed By: #### G CCHA #### [facility] [address] [place] [address] Protein mass conc Positive Abnormal Negative [facility] Comment on above: Performed By: #### [facility] #### [facility] [address] [place] [address] Trich Vag DNA Probe Negative Normal Negative [facility] Comment on above: Performed By: #### [facility] #### [facility] [address] [place] [address] CBCon 10-24-2018 Erythrocyte distribution width Ratio (RBC) 13.2 % Normal 12.0-15.4 [facility] Comment on above: Performed By: #### [facility] #### [facility] [address] [place] [address] Hematocrit Volume Fraction (Bld) 31.3 % Low 36.5-46.6 [facility] Comment on above: Performed By: #### [facility] #### [facility] [address] [place] [address] Hemoglobin mass conc (Bld) 10.3 g/dL Low 11.8-15.3 [facility] Comment on above: Performed By: #### [facility] #### [facility] [address] [place] [address] MCH Entitic mass (RBC) 30.0 pg Normal 27.5-33.0 [facility] Comment on above: Performed By: #### G CCHA #### [facility] [address] [place] [address] MCHC mass conc (RBC) 32.9 g/dL Normal 30.1-35.0 [facility] Comment on above: Performed By: #### [facility] #### [facility] [address] [place] [address] MCV Entitic volume (RBC) 91.3 fL Normal 85.4-100.0 [facility] Comment on above: Performed By: #### [facility] #### [facility] [address] [place] [address] NRBC Absolute 0.00 10*3/uL Normal [facility] Comment on above: Performed By: #### [facility] #### [facility] [address] [place] [address] NRBC Automated 0.0 /100{WBCs} Normal [facility] Comment on above: Performed By: #### [facility] #### [facility] [address] [place] [address] Platelet mean volume Entitic volume (Bld) 10.2 fL Normal 9.9-12.1 [facility] Comment on above: Performed By: #### [facility] #### [facility] [address] [place] [address] Platelets #/vol (Bld) 233 10*3/uL Normal 155-404 [facility] Comment on above: Performed By: #### [facility] #### [facility] [address] [place] [address] RBC #/vol (Bld) 3.43 10*6/uL Low 3.85-5.10 [facility] Comment on above: Performed By: #### [facility] #### [facility] [address] [place] [address] RDW SD 44.4 fL Normal 39.3-48.6 [facility] Comment on above: Performed By: #### G CCHA #### [facility] [address] [place] [address] WBC #/vol (Bld) 8.8 10*3/uL Normal 4.4-9.9 [facility] Comment on above: Performed By: #### [facility] #### [facility] [address] [place] [address] Glucose, 1 H Post 50 Gram (P regnancy Screen)on 10-24-2018 Glucose, 1 H Post 50 Gram ( Screen) 114 mg/dL Normal 55-140 [facility] Comment on above: Performed By: #### G CCHA #### [facility] [address] [place] [address] N. gonorrhoeae/C. trachomati s, Amplifiedon 10-16-2018 Chlamydia trachomatis, Amplified Positive Abnormal Negative [facility] Comment on above: Performed By: #### G CCHA #### [facility] [address] [place] [address] GC/CHLAM/TRICA Source Urine Normal [facility] Comment on above: Performed By: #### [facility] #### [facility] [address] [place] [address] Neisseria gonorrhoeae, Amplified Positive Abnormal Negative [facility] Comment on above: Performed By: #### G CCHA #### [facility] [address] [place] [address] CBCon 09-18-2018 Erythrocyte distribution width Ratio (RBC) 13.5 % Normal 12.0-15.4 [facility] Comment on above: Performed By: #### 2 [id number] #### [facility] [address] [place] [address] Hematocrit Volume Fraction (Bld) 34.6 % Low 36.5-46.6 [facility] Comment on above: Performed By: #### 2 [id number] #### [facility] [address] [place] [address] Hemoglobin mass conc (Bld) 11.3 g/dL Low 11.8-15.3 [facility] Comment on above: Performed By: #### 2 [id number] #### [facility] [address] [place] [address] MCH Entitic mass (RBC) 29.5 pg Normal 27.5-33.0 [facility] Comment on above: Performed By: #### 2 [id number] #### [facility] [address] [place] [address] MCHC mass conc (RBC) 32.7 g/dL Normal 30.1-35.0 [facility] Comment on above: Performed By: #### 2 [id number] #### [facility] [address] [place] [address] MCV Entitic volume (RBC) 90.3 fL Normal 85.4-100.0 [facility] Comment on above: Performed By: #### 2 [id number] #### [facility] [address] [place] [address] NRBC Absolute 0.00 10*3/uL Normal [facility] Comment on above: Performed By: #### 2 [id number] #### [facility] [address] [place] [address] NRBC Automated 0.0 /100{WBCs} Normal [facility] Comment on above: Performed By: #### 2 [id number] #### [facility] [address] [place] [address] Platelet mean volume Entitic volume (Bld) 10.7 fL Normal 9.9-12.1 [facility] Comment on above: Performed By: #### 2 [id number] #### [facility] [address] [place] [address] Platelets #/vol (Bld) 255 10*3/uL Normal 155-404 [facility] Comment on above: Performed By: #### 2 [id number] #### [facility] [address] [place] [address] RBC #/vol (Bld) 3.83 10*6/uL Low 3.85-5.10 [facility] Comment on above: Performed By: #### 2 [id number] #### [facility] [address] [place] [address] RDW SD 44.2 fL Normal 39.3-48.6 [facility] Comment on above: Performed By: #### 2 [id number] #### [facility] [address] [place] [address] WBC #/vol (Bld) 8.8 10*3/uL Normal 4.4-9.9 [facility] Comment on above: Performed By: #### 2 [id number] #### [facility] [address] [place] [address] Culture, Urine Bacterialon 1 11-18-2017 Culture, Urine Bacterial BILL#: [id number] : 89 AGE: SEX: F AMBULATORY SOURCE: URINE COLLECTED: 09/18/18 19:09 ANTIBIOTICS AT MISSY.: RECEIVED : 09/18/18 22:53 SITE: Unspecified R E S U L T S URINE CULTURE,BACTERIAL FINAL 09/19/18 16:24 NO SIGNIFICANT GROWTH. Normal [facility] Comment on above: Performed By: #### U ARFX #### [facility] [address] [place] [address] Cystic Fibrosis, 165 Variant on 09-18-2018 CF 165 Variant Interp. 0 variants Normal [facility] Comment on above: Result Comment: None of [...] 1 in 61 1 in 275 Ashkenazi Caodaism 96% 1 in 24 1 in 575 Montenegrin 55% 1 in 94 1 in 210 92% 1 in 25 1 in 300 Montenegrin 80% 1 in 58 1 in 285 [...] or bronchiectasis. INCIDENCE: 1 in 2,300 Ashkenazi Caodaism, 1 in 2,500 Caucasians, 1 in 13,500 [...] for the 23 recommended ACMG variants. c.1A>G, p.Vhn5Pve; c.68-7729_317+90244vgt, Exons 2-3del; c.115C>T, p.Gln39X; c.178G>T, p.Glu60X; c.200C>T, p.Gxi31Kdm; c.223C>T, p.Arg75X; c.254G>A (Legacy G85E), p.Jaj81Vfy; c.262_263delTT, p.Lvt86AmdyzS31 (aka p.Slw83ad); c.273+1G>A, Intronic; c.273+3A>C, Intronic; c.274-1G>A, Intronic; c.274G>A, p.Niu47Ftx; c.274G>T, p.Glu92X; c.292C>T, p.Gln98X; c.313delA, p.Qev070MuwocK9 (aka p.Bdk225aq); c.325_327delTATinsG, p.Erj069KqbdfD8 (aka p.Gcm235um); c.328G>C, p.Aqo063Jed; c.349C>T, p.Rvq673Jmf; c.350G>A (Legacy R117H), p.Frb910Fku; c.366T>A, p.Poa394Z; c.442delA, p.Pkk263VvwvjO3 (aka p.Ryy450pd); c.489+1G>T (Legacy 621+1G>T), Intronic; c.531delT, p.Kfr071CuaobG18 (aka p.Uej385bk); c.532G>A, p.Bby600Bti; c.579+1G>T (Legacy 711+1G>T), Intronic; c.579+5G>A, Intronic; c.579+3A>G, Intronic; c.580-1G>T, Intronic; c.595C>T, p.Pkq475Jpw; c.613C>T, p.Fmv022Hmi; c.617T>G, p.Jdv875Uyh; c.658C>T, p.Ant803E; c.680T>G, p.Baf951Tyv; c.720_741delAGGGAGAATGATGATGAAGTAC, p.Tli482ZwidwK24 (aka p.Lpm412wa); c.803delA, p.Ney884XaxcgQ57 (aka p.Sbo088ze); c.805_806delAT, p.Mvc379NmuyeK3 (aka p.Mxm873yn); c.933_935delCTT, p.Lws109zvn; c.948delT, p.Vhp936HeifzA58 (aka p.Jnf969ig); c.988G>T, p.Eot447M; c.1000C>T (Legacy R334W), p.Tgm019Ieq; c.1007T>A, p.Nti899Zub; c.1021T>C, p.Nmr327Ocj; c.1022_1023insTC, p.Zcb176UoaroA22 (aka p.Ykz739xr); c.1040G>A, p.Obs454Xoa; c.1040G>C (Legacy R347P), p.Oas091Rra; c.1055G>A, p.Ofg151Mjd; c.1081delT, p.Qdt162UyvvbU0 (aka p.Vfw130xl); c.1116+1G>A, Intronic; c.1127_1128insA, p.Mol475ThkvxU3 (aka p.Aoy115op); c.1153_1154insAT, p.Lxy530YxlusT5 (aka p.Rub766lh); c.1202G>A, p.Olv362U; c.1203G>A, p.Sik023X; c.1209+1G>A, Intronic; c.1329_1330insAGAT, p.Kni855MavuqI8 (aka p.Wzf740rt); c.1340delA, p.Zyu031FgcuuY1 (aka p.Uiw902ey); c.1364C>A (Legacy A455E), p.Mun434Ayg; c.1393-1G>A, Intronic; c.1397C>A, p.Dvn153X; c.1397C>G, p.Mxz501Y; c.1400T>C, p.Gua585Xxq; c.1418delG, p.Sro975BmntbA87 (aka p.Gqy332le); c.1438G>T, p.Shk234Gsc; c.1466C>A, p.Cui452O; c.1475C>T, p.Zlz048Xjz; c.1477C>T, p.Bif684U; c.1519_1521delATC (Legacy W300yiy), p.Vbt844yfb; c.1521_1523delCTT (Legacy W209zym), p.Asm210zdd; c.1545_1546delTA, p.Bip255P; c.1558G>T, p.Tob095Uqo; c.1572C>A, p.Swf937L; c.1573C>T, p.Zit404W; c.1585-1G>A (Legacy 1717-1G>A), Intronic; c.1585-8G>A, Intronic; c.1624G>T (Legacy G542X), p.Ytw739G; c.1645A>C, p.Wpx399Sxy; c.1646G>A, p.Qsc459Kwn; c.1647T>G, p.Hsu291Wls; c.1651G>A, p.Fje837Lef; c.1652G>A (Legacy G551D), p.Mrz208Gci; c.1654C>T, p.Vvv222Q; c.1657C>T (Legacy R553X), p.Wik920Y; c.1675G>A, p.Dut814Uhn; c.1679G>A, p.Iqw154Alp; c.1679G>C (Legacy R560T), p.Dvh573Lqp; c.1679+1.6kbA>G, Intronic; c.1680-1G>A, Intronic; c.1703delT, p.Uvm950AzttdP6 (aka p.Dgy037xw); c.1705T>G, p.Mzh969Mga; c.1721C>A, p.Apn332Epz; c.1753G>T, p.Wes810Q; c.1766+1G>A (Legacy 1898+1G>A), Intronic; c.1766+3A>G, Intronic; c.1792_1798delAAAACTA, p.Fdw043KvlgmF84 (aka p.Nxg352bh); c.1911delG, p.Gib114ImgwrG52 (aka p.Sxh097vr); c.1923_1931del9insA, p.Nyp675WniohZ7 (aka p.Xdx707un); c.1972_1984del13insAGAAA, p.Xpo508QwasaU3 (aka p.Jdo561ui); c.1975delA, p.Rvx360RzabvI1 (aka p.Pre096fn); c.2011delT, p.Zrd293I; c.2050_2del, p.Vei011JpeogY6; c.2050_2delinsG (aka c.205_elinsG), p.Grd799YfdufF93; c.2delA (Legacy 2184delA), p.Wah838FlvkcA68; c.2125C>T, p.Tak173Z; c.2128A>T, p.Ldc286U; c.2175_2176insA, p.Vsq242PeztwC9 (aka p.Fok570tu); c.2195T>G, p.Dok818T; c.2215delG, p.Gee081VjqfkG88 (aka p.Cps331ex); c.2290C>T, p.Mwn756Uyv; c.2453delT, p.Wrv456EomizP9 (aka p.Uex339jw); c.2464G>T, p.Csl180L; c.2490+1G>A, Intronic; c.2491G>T, p.Jok677V; c.2537G>A, p.Upc112G; c.2538G>A, p.Xyk700E; c.2551C>T, p.Gih904T; c.2583delT, p.Afw995QfdngM5 (aka p.Uhg722al); c.2657+5G>A (Legacy 2789+5G>A), Intronic; c.2668C>T, p.Kbs882S; c.2737_2738insG, p.Udu467S; c.2780T>C, p.Zza365Gii; c.2810_2811insT, p.Fer855LiyzhO18 (aka p.Poa886tp); c.2834C>T, p.Mxn248Nrl; c.2875delG, p.Cea408SsbvxO8 (aka p.Qyi089qt); c.2908G>C, p.Pvw842Mvc; c.2988+1G>A (Legacy 3120+1G>A), Intronic; c.2988G>A, Intronic; c.2989-1G>A, Intronic; c.3039delC, p.Ree5751OmhjhN0 (aka p.Gem4938tw); c.3067_3072delATAGTG, p.Zye7823_Elb6305jov (aka B1372_Y5048skg); c.3140-26A>G, Intronic; c.3194T>C, p.Xek7069Ele; c.3196C>T, p.Guo4276Umd; c.3197G>A, p.Nez2875Oea; c.3230T>C, p.Izj1331Luj; c.3266G>A, p.Dmt4201R; c.3276C>A, p.Tul8122Y; c.3276C>G, p.Bce0568A; c.3302T>A, p.Tci6732Efl; c.3310G>T, p.Kcc0806O; c.3472C>T, p.Fzk4705N; c.3484C>T (Legacy I8051Z), p.Wdt7141D; c.3528delC (Legacy 3659delC), p.Whg4474KdezpO15 (aka p.Ngd9286qm); c.3536_3539del, p.Bpl2234CsmvwJ97 (aka p.Mqk6646pm); c.3587C>G, p.Vjr4129L; c.3611G>A, p.Lgu5076E; c.3612G>A, p.Iwh9947Q; c.3659delC, p.Nsv5685ZkgdgC6 (aka p.Fpc4225fn); c.3691delT, p.Fkb8903YisemH5 (aka p.Ize6941pk); c.3712C>T, p.Qdx1923S; c.1968-7057C>T (Legacy 3849+10kbC>T), Intronic; c.3731G>A, p.Wkh9492Zcr; c.3744delA, p.Fag9829ZotgtG1 (aka p.Jts9512ay); c.3752G>A, p.Udf2419Jfb; c.3763T>C, p.Bci3272Faz; c.3764C>A, p.Fhh8492Y; c.3773_3774insT, p.Fdq2581XgfzwR8 (aka p.Ptz0476en); c.3846G>A (Legacy L8295I), p.Qic4459I; c.3873+1G>A, Intronic; c.3909C>G (Legacy K8460Y), p.Pqo0567Wbe; c.3937C>T, p.Voj9981V; c.3964-78_4242+577del, Exons 22-23del; c.4028delG, p.Fpu9812WrahcA4 (aka p.Fsh6922jt); c.4046G>A, p.Dsw4044Kfg; c.4077_4080delTGTTinsAA, p.Tsl0744wkW4 (aka p.Bai5768pj); c.4111G>T, p.Tea2394X; c.4251delA, p.Stz7783BvkfvO16 (aka p.Pcz5224wv). The IVS-8 variant, c.1210-12[5], will be reported only when R117H is detected or in patients who are reported to be symptomatic. CLINICAL SENSITIVITY: Ashkenazi Caodaism 96 percent; 92 percent; 80 percent; 78 percent; Montenegrin 55 percent. METHODOLOGY: Polymerase chain reaction (PCR) and fluorescence monitoring. Analytical Sensitivity & Specificity: 99 percent. LIMITATIONS: Diagnostic errors can occur due to rare sequence variations. Only the 165 pathogenic CFTR variants and 5T variant (listed above) will be interrogated. See Compliance Statement C: [email or web address] Performed by [employer], [address] [place] [id number] [email or web address], Robert Fraire MD - Lab. Director Performed By: #### U ARFX #### [facility] [address] [place] [address] CF 5T Variant Not Applicable Normal [facility] Comment on above: Performed By: #### U ARFX #### [facility] [address] [place] [address] CF Allele 1 Negative Normal [facility] Comment on above: Performed By: #### U ARFX #### [facility] [address] [place] [address] CF Allele 2 Negative Normal [facility] Comment on above: Performed By: #### U ARFX #### [facility] [address] [place] [address] CF Specimen Type Whole Blood Normal [facility] Comment on above: Performed By: #### U ARFX #### [facility] [address] [place] [address] CF Symptom No Normal [facility] Comment on above: Performed By: #### U ARFX #### [facility] [address] [place] [address] Ethnicity Normal [facility] Comment on above: Performed By: #### U ARFX #### [facility] [address] [place] [address] Family History No Normal [facility] Comment on above: Performed By: #### U ARFX #### [facility] [address] [place] [address] Drugs of Abuse, Urine(7)on 11-18-2017 Amphetamines/Metam phetamines, Urine Not Detected Normal [facility] Comment on above: Performed By: #### U ARFX #### [facility] [address] [place] [address] Barbiturates, Urine Not Detected Normal [facility] Comment on above: Performed By: #### U ARFX #### [facility] [address] [place] [address] Benzodiazepines, Urine Not Detected Normal [facility] Comment on above: Performed By: #### U ARFX #### [facility] [address] [place] [address] Cannabinoids, Urine Not Detected Normal [facility] Comment on above: Performed By: #### U ARFX #### [facility] [address] [place] [address] Cocaine, Urine Not Detected Normal [facility] Comment on above: Performed By: #### U ARFX #### [facility] [address] [place] [address] Methadone, Urine Not Detected Normal [facility] Comment on above: Performed By: #### U ARFX #### [facility] [address] [place] [address] Opiates, Urine Not Detected Normal [facility] Comment on above: Performed By: #### U ARFX #### [facility] [address] [place] [address] PCP, Urine Not Detected Normal [facility] Comment on above: Result Comment: Urin e toxicology screen results are to be used for medical purposes only. It is recommended that any result reported as Detected be confirmed by a more specific alternative chemical method. Drug Analyzed Cutoff Concentration(ng/mL) Barbiturates 200 Benzodiazepines 200 Cocaine 150 Opiates 300 Amphetamines 500 Cannabinoids 50 Methadone 150 PCP 25 Performed By: #### U ARFX #### [facility] [address] [place] [address] HIV 1 Ab, Conf WBloton 09-18 HIV 1 Ab, Conf WBlot Negative Normal Negative [facility] Comment on above: Result Comment: HIV- 1 [...] Cellular and Tissue-Based Products (HCT/P). Performed by [employer], [address] [place] [id number] [email or web address], Robert Fraire MD - Lab. Director Performed By: #### U ARFX #### [facility] [address] [place] [address] Hemoglobin Identificationon 09-18-2018 Hemoglobin A2 2.8 % Normal [facility] Comment on above: Result Comment: HGB A2 values may be falsely elevated in the presence of HGB S Hemoglobin F 0.6 % Normal [facility] Hemoglobin mass conc (Bld) 96.6 % Normal [facility] Hemoglobin mass conc (Bld) SEE COMMENT Normal [facility] Comment on above: Result Comment: Norm al Hepatitis B Surface Antigeno n 09-18-2018 Hepatitis B Surface Antigen NONREACTIVE Normal NONREACTIVE [facility] Comment on above: Result Comment: Carrie ents receiving more than 5 mg/day of biotin may have interf in test results. A sample should be taken no sooner than eight after previous dose. Contact [phone] for additional infor Hepatitis C Antibody w/rfx t o Confirmon 09-18-2018 Hepatitis C Antibody NON-REACTIVE Normal NONREACTIVE [facility] Comment on above: Result Comment: Carrie ents receiving more than 5 mg/day of biotin may have interf in test results. A sample should be taken no sooner than eight after previous dose. Contact [phone] for additional infor Rubella Ab, IgGon 09-18-2018 Rubella Ab, IgG 16 IU/ML Normal [facility] Comment on above: Result Comment: REF VALUES NON-IMMUNE: < 5 EQUIVOCAL: 5-9 IMMUNE: >=10 Syphilis IgG w/Rflx toTiter, TP-PAon 09-18-2018 Syphilis IgG w/Rflx toTiter,TP-PA NON REACTIVE Normal NONREACTIVE [facility] Comment on above: Result Comment: Carrie ents receiving more than 5 mg/day of biotin may have interf in test results. A sample should be taken no sooner than eight after previous dose. Contact [phone] for additional infor TSHon 09-18-2018 Thyrotropin Qn 0.54 mU/L Normal 0.44-3.98 [facility] Comment on above: Performed By: #### U ARFX #### [facility] [address] [place] [address] Type and Screenon 09-18-2018 Group and Rh Positive Normal [facility] Comment on above: Performed By: #### T S3 #### [facility] [address] [place] [address] VZV Ab, IgGon 09-18-2018 VZV Ab, IgG Positive Normal NEGATIVE [facility] Comment on above: Result Comment: INTE RPRETATIVE [...] >80 Performed By: #### U ARFX #### [facility] [address] [place] [address] Culture, Urine Bacterialon 1 11-09-2017 Culture, Urine Bacterial BILL#: [id number] : 89 AGE: SEX: Primitivo COLÓN SOURCE: URINE COLLECTED: 09/09/18 13:19 ANTIBIOTICS AT MISSY.: RECEIVED : 09/09/18 22:34 SITE: Unspecified R E S U L T S URINE CULTURE,BACTERIAL FINAL 09/10/18 15:13 NO SIGNIFICANT GROWTH. Normal [facility] Comment on above: Performed By: #### C XBUR #### [facility] [address] [place] [address] N. gonorrhoeae/C. trachomati s, Amplifiedon 09-09-2018 Chlamydia trachomatis, Amplified Negative Normal Negative [facility] Comment on above: Performed By: #### G CCHA #### [facility] [address] [place] [address] GC/CHLAM/TRICA Source Swab-Endocerv Normal [facility] Comment on above: Performed By: #### G CCHA #### [facility] [address] [place] [address] Neisseria gonorrhoeae, Amplified Negative Normal Negative [facility] Comment on above: Performed By: #### G CCHA #### [facility] [address] [place] [id number] Urinalysis with Reflex Cultu reon 09-09-2018 Appearance Nom (U) Hazy Normal Clear [facility] Comment on above: Performed By: #### U ARFX #### [facility] [address] [place] [address] Ascorbic Acid Negative Normal Negative [facility] Comment on above: Performed By: #### U ARFX #### [facility] [address] [place] [address] Automated Urine Microscopy Performed Normal [facility] Comment on above: Performed By: #### U ARFX #### [facility] [address] [place] [address] Bacteria LM.HPF #/area (Urine sed) Few Normal None [facility] Comment on above: Performed By: #### U ARFX #### [facility] [address] [place] [address] Bilirubin mass conc Negative Normal Negative [facility] Comment on above: Performed By: #### U ARFX #### [facility] [address] [place] [address] Blood Negative Normal Negative [facility] Comment on above: Performed By: #### U ARFX #### [facility] [address] [place] [address] Color Nom (U) Yellow Normal [facility] Comment on above: Performed By: #### U ARFX #### [facility] Lab [address] [place] [address] Glucose mass conc Negative Normal Negative [facility] Comment on above: Performed By: #### U ARFX #### [facility] [address] [place] [address] Ketones Ql (U) Negative Normal Negative [facility] Comment on above: Performed By: #### U ARFX #### [facility] [address] [place] [address] Leukocytes Esterase Large Abnormal Negative [facility] Comment on above: Performed By: #### U ARFX #### [facility] [address] [place] [address] Mucous Rare Normal None [facility] Comment on above: Performed By: #### U ARFX #### [facility] [address] [place] [address] Nitrite Ql (U) Negative Normal Negative [facility] Comment on above: Performed By: #### U ARFX #### [facility] [address] [place] [address] pH (Bld) 6.0 Normal 5.0-9.0 [facility] Comment on above: Performed By: #### U ARFX #### [facility] [address] [place] [address] Protein mass conc (U) Negative Normal Negative [facility] Comment on above: Performed By: #### U ARFX #### [facility] [address] [place] [address] RBC 5 /[HPF] Normal 0-3 [facility] Comment on above: Performed By: #### U ARFX #### [facility] [address] [place] [address] Specific gravity Relative Density (U) 1.019 Normal 1.003-1.035 [facility] Comment on above: Performed By: #### U ARFX #### [facility] [address] [place] [address] Squamous Epithelial Cells 12 /[HPF] Normal 0-5 [facility] Comment on above: Performed By: #### U ARFX #### [facility] [address] [place] [address] Urobilinogen Qn (U) 2.0 mg/dL Abnormal Negative [facility] Comment on above: Performed By: #### U ARFX #### [facility] [address] [place] [address] WBC 6 /[HPF] Normal 0-5 [facility] Comment on above: Performed By: #### U ARFX #### [facility] [address] [place] [address] Vaginal Pathogen DNAon 09-09 Estrada Vag DNA Probe Positive Abnormal Negative [facility] Comment on above: Performed By: #### V AGPA #### [facility] [address] [place] [address] Protein mass conc Positive Abnormal Negative [facility] Comment on above: Performed By: #### V AGPA #### [facility] [address] [place] [address] Trich Vag DNA Probe Positive Abnormal Negative [facility] Comment on above: Performed By: #### V AGPA #### [facility] [address] [place] [address] Culture, Urine Bacterialon 0 07-30-2018 Culture, Urine Bacterial BILL#: [id number] : 89 AGE: SEX: F CAROL SOURCE: URINE COLLECTED: 07/30/18 17:03 ANTIBIOTICS AT MISSY.: RECEIVED : 07/30/18 22:34 SITE: Unspecified R E S U L T S URINE CULTURE,BACTERIAL FINAL 07/31/18 15:35 NO SIGNIFICANT GROWTH. Normal [facility] Comment on above: Performed By: #### C XBUR #### [facility] [address] [place] [address] N. gonorrhoeae/C. trachomati s, Amplifiedon 07-30-2018 Chlamydia trachomatis, Amplified Negative Normal Negative [facility] Comment on above: Performed By: #### G CCHA #### [facility] [address] [place] [address] GC/CHLAM/TRICA Source Urine Normal [facility] Comment on above: Performed By: #### G CCHA #### [facility] [address] [place] [address] Neisseria gonorrhoeae, Amplified Negative Normal Negative [facility] Comment on above: Performed By: #### G CCHA #### [facility] [address] [place] [address] Urinalysis with Reflex Cultu reon 07-30-2018 Appearance Nom (U) Clear Normal Clear [facility] Comment on above: Performed By: #### U ARFX #### [facility] [address] [place] [address] Ascorbic Acid Negative Normal Negative [facility] Comment on above: Performed By: #### U ARFX #### [facility] [address] [place] [address] Automated Urine Microscopy Performed Normal [facility] Comment on above: Performed By: #### U ARFX #### [facility] [address] [place] [address] Bacteria LM.HPF #/area (Urine sed) Rare Normal None [facility] Comment on above: Performed By: #### U ARFX #### [facility] [address] [place] [address] Bilirubin mass conc Negative Normal Negative [facility] Comment on above: Performed By: #### U ARFX #### [facility] [address] [place] [address] Blood Negative Normal Negative [facility] Comment on above: Performed By: #### U ARFX #### [facility] [address] [place] [address] Color Nom (U) Yellow Normal [facility] Comment on above: Performed By: #### U ARFX #### [facility] [address] [place] [address] Glucose mass conc Negative Normal Negative [facility] Comment on above: Performed By: #### U ARFX #### [facility] [address] [place] [address] Ketones Ql (U) Negative Normal Negative [facility] Comment on above: Performed By: #### U ARFX #### [facility] [address] [place] [address] Leukocytes Esterase Moderate Abnormal Negative [facility] Comment on above: Performed By: #### U ARFX #### [facility] [address] [place] [address] Mucous Rare Normal None [facility] Comment on above: Performed By: #### U ARFX #### [facility] [address] [place] [address] Nitrite Ql (U) Negative Normal Negative [facility] Comment on above: Performed By: #### U ARFX #### [facility] [address] [place] [address] pH (Bld) 6.0 Normal 5.0-9.0 [facility] Comment on above: Performed By: #### U ARFX #### [facility] [address] [place] [address] Protein mass conc (U) Negative Normal Negative [facility] Comment on above: Performed By: #### U ARFX #### [facility] [address] [place] [address] RBC 3 /[HPF] Normal 0-3 [facility] Comment on above: Performed By: #### U ARFX #### [facility] [address] [place] [address] Specific gravity Relative Density (U) 1.016 Normal 1.003-1.035 [facility] Comment on above: Performed By: #### U ARFX #### [facility] [address] [place] [address] Squamous Epithelial Cells 3 /[HPF] Normal 0-5 [facility] Comment on above: Performed By: #### U ARFX #### [facility] [address] [place] [address] Urobilinogen Qn (U) >=4.0 Abnormal Negative [facility] Comment on above: Performed By: #### U ARFX #### [facility] [address] [place] [address] WBC 16 /[HPF] Normal 0-5 [facility] Comment on above: Performed By: #### U ARFX #### [facility] [address] [place] [address] FOOT RT 3 OR MORE VWon 05-20 FOOT RT 3 OR MORE VW DATE OF EXAM: May 19 2018 11:20PM CLINICAL HISTORY/ Patient Name: JULIETTE HERNÁNDEZ STUDY: FOOT RT 3 OR MORE VW; 05/19/2018 11:20 pm INDICATION: Trauma. Pain COMPARISON: None. ACCESSION NUMBER(S): [id number] ORDERING CLINICIAN: LUIS CASTRO FINDINGS: Osseous structures and soft tissues appear normal. No fracture or dislocation is noted CONCLUSION: IMPRESSION: Normal right foot Normal [facility] Vital Signs Date Time Vital Sign Value Performing Clinician Facility 02-21-2024 10:39-0400 Body height 167.6 cm Chacorta Erwin MD Work Phone: [facility] 02-21-2024 10:39-0400 Body mass index (BMI) [Ratio] 22.6 kg/m2 Chacorta Erwin MD Work Phone: [facility] 02-21-2024 10:39-0400 Body temperature 97.3 [degF] Chacorta Erwin MD Work Phone: [facility] 02-21-2024 10:39-0400 Body weight 63.5 kg Chacorta Erwin MD Work Phone: [facility] 02-21-2024 10:39-0400 Diastolic blood pressure 54 mm[Hg] Chacorta Erwin MD Work Phone: [facility] 02-21-2024 10:39-0400 Heart rate 64 /min Chacorta Erwin MD Work Phone: [facility] 02-21-2024 10:39-0400 Respiratory rate 16 /min Chacorta Erwin MD Work Phone: [facility] 02-21-2024 10:39-0400 SaO2% (BldA) [Mass fraction] 100 % Chacorta Erwin MD Work Phone: [facility] 02-21-2024 10:39-0400 Systolic blood pressure 104 mm[Hg] Chacorta Erwin MD Work Phone: [facility] 06-19-2023 23:30-0400 Diastolic blood pressure 63 mm[Hg] [facility] [employer] 06-19-2023 23:30-0400 Heart rate 83 /min [facility] [employer] 06-19-2023 23:30-0400 Respiratory rate 15 /min [facility] [employer] 06-19-2023 23:30-0400 SaO2% (BldA) [Mass fraction] 96 % [facility] [employer] 06-19-2023 23:30-0400 Systolic blood pressure 102 mm[Hg] [employer] [employer] 06-19-2023 21:44-0400 Body height 167.6 cm [employer] 06-19-2023 21:44-0400 Body mass index (BMI) [Ratio] 22.6 kg/m2 [facility] 06-19-2023 21:44-0400 Body temperature 98.01 [degF] [facility] 06-19-2023 21:44-0400 Body weight 63.5 kg [facility] 01-09-2023 16:18-0500 Body height 167.64 cm No PCP None [facility] Work Phone: 01-09-2023 16:18-0500 Body mass index (BMI) [Ratio] 24.59 kg/m2 No PCP None [facility] Work Phone: 01-09-2023 16:18-0500 Body surface area Derived from formula 1.78 m2 No PCP [facility] Work Phone: 01-09-2023 16:18-0500 Body weight 69.12 kg No PCP None [facility] Work Phone: 01-09-2023 16:18-0500 Diastolic blood pressure 60 mm[Hg] No PCP None [facility] Work Phone: 01-09-2023 16:18-0500 Systolic blood pressure 116 mm[Hg] No PCP None [facility] Work Phone: 11-21-2022 05:37-0500 Diastolic blood pressure 53 mm[Hg] No Pcp Required [facility] 11-21-2022 05:37-0500 Heart rate 85 /min No Pcp Required [facility] 11-21-2022 05:37-0500 Respiratory rate 18 /min No Pcp Required [facility] 11-21-2022 05:37-0500 SaO2% (BldA) [Mass fraction] 100 % No Pcp Required [facility] 11-21-2022 05:37-0500 Systolic blood pressure 100 mm[Hg] No Pcp Required [facility] 11-21-2022 03:56-0500 Body height 167.6 cm No [facility] 11-21-2022 03:56-0500 Body temperature 97.7 [degF] No Pcp [facility] 11-21-2022 03:56-0500 Body weight 68.1 kg No Pcp Required [place] [facility] 09-08-2022 22:01-0400 Diastolic blood pressure 61 mm[Hg] No Pcp Required [facility] 09-08-2022 22:01-0400 Heart rate 69 /min No Pcp Required [facility] 09-08-2022 22:01-0400 Respiratory rate 16 /min No Pcp Required [facility] 09-08-2022 22:01-0400 SaO2% (BldA) [Mass fraction] 100 % No Pcp Required [facility] 09-08-2022 22:01-0400 Systolic blood pressure 121 mm[Hg] No Pcp Required [facility] 09-08-2022 17:31-0400 Body height 167.6 cm No Pcp [facility] 09-08-2022 17:31-0400 Body temperature 98.24 [degF] No Pcp Required [facility] 09-08-2022 17:31-0400 Body weight 66 kg No Pcp [facility] 06-26-2021 16:54-0400 Diastolic blood pressure 65 mm[Hg] No Pcp Required [facility] 06-26-2021 16:54-0400 Heart rate 70 /min No Pcp [facility] 06-26-2021 16:54-0400 Respiratory rate 16 /min No Pcp Required [facility] 06-26-2021 16:54-0400 SaO2% (BldA) [Mass fraction] 97 % No Pcp Required [facility] 06-26-2021 16:54-0400 Systolic blood pressure 112 mm[Hg] No Pcp Required [facility] 06-26-2021 11:14-0400 Body height 167.6 cm No Pcp Required [place] [facility] 06-26-2021 11:14-0400 Body temperature 98.06 [degF] No Pcp Required [place] [facility] 06-26-2021 11:14-0400 Body weight 71.9 kg No Pcp Required [place] [facility] 10-03-2020 11:52-0500 BMI (Body Mass Index) 24.14 kg/m2 [facility] Work [facility]: 10-03-2020 11:52-0500 Body Temperature 97 [degF] [facility] Work Phone: 10-03-2020 11:52-0500 Body weight 67.84 kg [facility] Work Phone: 10-03-2020 11:52-0500 BP Diastolic 76 mm[Hg] Cally Meyer [facility] Work Phone: Comment on above: Location: LUE; Position: Sitting 10-03-2020 11:52-0500 BP Systolic 104 mm[Hg] Cally Meyer [facility] Work Phone: Comment on above: Location: LUE; Position: Sitting 10-03-2020 11:52-0500 BSA (Body Surface Area) 1.77 m2 Cally Meyer [facility] Work Phone: 10-03-2020 11:52-0500 Height 167.64 cm Cally Meyer [facility] Work Phone: 06-02-2020 14:04-0400 BMI (Body Mass Index) 22.76 kg/m2 Chica Camposa PQ-DIHY-[id number] [address] [facility] Work Phone: 06-02-2020 14:04-0400 Body Temperature 98.1 [degF] Chica Wisdom EI-TUSW-Gzkq [address] [facility] Work Phone: 06-02-2020 14:04-0400 Body weight 63.96 kg Chica Wisdom XU-BIKL-Blne [address] [facility] Work Phone: 06-02-2020 14:04-0400 BP Diastolic 72 mm[Hg] Chica Wisdom CC-JOND-Avww [address] [facility] Work Phone: 06-02-2020 14:04-0400 BP Systolic 104 mm[Hg] Chica Wisdom HI-FAVX-Mocv [address] [facility] Work Phone: 06-02-2020 14:04-0400 BSA (Body Surface Area) 1.72 m2 Chica Wisdom AX-AZDB-Yqbn [facility] [facility] Work Phone: 06-02-2020 14:04-0400 Pulse (Heart Rate) 60 /min Chica Wisdom EY-TPUO-Vjjb [facility] [facility] Work Phone: 06-02-2020 14:04-0400 Pulse Oximetry 99 % Chica Wisdom WX-XAGF-Aqin [address] [facility] Work Phone: 06-02-2020 14:04-0400 Respiratory Rate 16 /min Chica Wisdom BO-JCIU-Cnbk [address] [facility] Work Phone: Encounters Encounter Date Encounter Type Care Provider Facility Start: 12-08-2024 End: 12-08-2024 [facility] Start: 12-08-2024 End: 12-08-2024 Subsequent hospital visit by physician [facility] Start: 12-04-2024 End: 12-04-2024 [facility] Start: 12-04-2024 End: 12-04-2024 Subsequent hospital visit by physician Sunny Lilly MD [facility] Start: 10-14-2024 End: 10-14-2024 ambulatory [facility] Start: 09-28-2024 End: 09-28-2024 ambulatory [facility] Start: 09-28-2024 End: 09-28-2024 Subsequent hospital visit by physician Sunny Lilly MD Work Phone: [facility] Start: 05-26-2024 End: 05-26-2024 ambulatory [facility] Start: 05-26-2024 End: 05-26-2024 Subsequent hospital visit by physician Sunny Lilly MD Work Phone: [facility] Start: 05-08-2024 End: 05-08-2024 ambulatory [facility] Start: 05-04-2024 End: 05-04-2024 ambulatory [facility] Start: 04-24-2024 End: 04-24-2024 Emergency department patient visit [facility] Start: 02-21-2024 End: 02-21-2024 Emergency department patient visit NO ASSIGNED PCP GENERIC PROVIDER [facility] Start: 02-21-2024 End: 02-21-2024 Emergency department patient visit Chacorta Erwin MD Work Phone: [facility] Comment on above: Trichomonas exposure (Primary Dx); Rash Start: 06-19-2023 End: 06-20-2023 Emergency department patient visit [facility] Start: 06-19-2023 End: 06-20-2023 Emergency department patient visit [facility] ED Comment on above: Multiple drug overdo se, accidental or unintentional, initial encounter (Primary Dx) Start: 05-29-2023 End: 05-29-2023 Emergency department patient visit [facility] Start: 01-09-2023 Office outpatient vi sit 15 minutes No PCP None [facility] Work Phone: Start: 01-09-2023 Patient encounter procedure No PCP None [facility] Work Phone: Start: 01-09-2023 ambulatory MD CALLY MEYER Facility:[id number] Start: 12-19-[address] Chacorta Erwin Facility:[id number] Start: 11-22-2022 Patient encounter procedure No PCP [facility] Work Phone: Start: 11-22-[address] Chacorta Erwin Facility:[id number] Start: 11-21-2022 End: 11-21-2022 Emergency department patient visit Lilian Wilkins [place] [facility] 05 Start: 11-20-2022 End: 11-20-2022 Emergency department patient visit Elinor Sagastume [place] [facility] 04 Start: 10-08-2022 End: 10-08-2022 Emergency department patient visit [facility] Start: 09-08-2022 End: 09-08-2022 Emergency department patient visit Kirk Roldan [place] [facility] 01 Start: 06-26-2021 End: 06-26-2021 Emergency department patient visit Reta Sanchez [place] [facility] 25 Start: 10-03-2020 Patient encounter procedure Cally Meyer -[facility] Work Phone: Start: 09-05-2020 Patient encounter procedure Cally Meyer -[facility] Work Phone: Start: 06-10-2020 Patient encounter procedure Cally Meyer -[facility] Work Phone: Start: 06-02-2020 Patient encounter procedure Chica Wisdom ZY-KDKW-Ngwd [facility] Work Phone: Start: 10-26-2019 Patient encounter procedure Chica Wisdom TQ-YRWM-Zbqp [facility] Work Phone: Start: 08-25-2019 Patient encounter procedure Chica Wisdom NL-OVQC-Cxky [facility] [facility] Work Phone: Start: 07-16-2019 Patient encounter procedure Chica Wisdom KW-BSOP-Stwb [facility] [facility] Work Phone: Start: 06-11-2019 Patient encounter procedure Chica Wisdom QH-GWNY-Mkfc [facility] [facility] Work Phone: Start: 04-22-2019 Patient encounter procedure Chica Wisdom MT-OTMR-Vrjq [facility] [facility] Work Phone: Start: 01-19-2019 End: 01-21-2019 Evaluation and management of inpatient KEYSHA BAH Facility:[facility] Start: 01-15-2019 Patient encounter procedure Chica Wisdom FP-KAZZ-Htky [facility] [facility] Work Phone: Start: 01-08-2019 Patient encounter procedure Chica Wisdom RQ-NKKF-Usrz [facility] [facility] Work Phone: Start: 01-01-2019 Patient encounter procedure Chica Wisdom XN-NUXO-Jczf [address] [facility] Work Phone: Start: 12-25-2018 Patient encounter procedure KEYSHA BAH Facility:[facility] Start: 12-25-2018 Patient encounter procedure Chica Wisdom SZ-KULF-Qmpx [facility] [facility] Work Phone: Start: 12-18-2018 Patient encounter procedure Chica Wisdom BG-TMSV-Zcdk [facility] Work Phone: Start: 12-11-2018 End: 12-11-2018 Patient encounter procedure KEYSHA BAH Facility:[facility] Start: 12-04-2018 Patient encounter procedure Chica Wisdom GG-WABG-Rdwf [facility] [facility] Work Phone: Start: 12-01-2018 End: 12-01-2018 Patient encounter procedure KEYSHA BAH Facility:[facility] Start: 11-27-2018 Patient encounter procedure Chica Wisdom BM-WEHJ-Pnhj [address] [facility] Work Phone: Start: 11-13-2018 Patient encounter procedure KEYSHA BAH Facility:[facility] Start: 11-13-2018 Patient encounter procedure KEYSHA WHITEUN Facility: Start: 10-24-2018 Patient encounter procedure KEYSHA BAH Facility:[facility] Start: 10-16-2018 Patient encounter procedure KEYSHA BAH Facility:[facility] Start: 10-07-2018 Patient encounter procedure Chica Wisdom IH-ZDXH-Njaj [facility] [facility] Work Phone: Start: 09-18-2018 Patient encounter procedure KEYSHA BAH Facility:[facility] Start: 09-18-2018 Patient encounter procedure KEYSHA BAH Facility:7 Start: 09-18-2018 Patient encounter procedure Chica Wisdom FR-XVIG-Humg [address] [facility] Work Phone: Start: 09-09-2018 End: 09-09-2018 Emergency department patient visit NO FAMILY DOCTOR NO FAMILY DOCTOR Facility:[facility] Start: 07-30-2018 End: 07-30-2018 Emergency department patient visit NO FAMILY DOCTOR NO FAMILY DOCTOR Facility:[facility] Start: 05-20-2018 End: 05-20-2018 Emergency department patient visit BRAULIO LILLY Facility:[facility] Menarche No PCP None [facility] Work Phone: Patient encounter status No PCP None [facility] Work Phone: Procedures Date Procedure Procedure Detail Performing Clinician Start: 12-08-2024 Comprehensive metabo lic panel Sharif Ivory OFFICE HELPER CLERICAL - MANAGER ARCHITECTURAL Work Phone: Start: 12-08-2024 Hepatitis b surf ant ibody hbsab Sharif Ivory OFFICE HELPER CLERICAL - MANAGER ARCHITECTURAL Work Phone: Start: 12-08-2024 T. PALLIDUM AB Sharif R icker OFFICE HELPER CLERICAL - MANAGER ARCHITECTURAL Work Phone: Start: 12-04-2024 Smr prim src wet cecilia nt nfct agt Sharif Ivory OFFICE HELPER CLERICAL - MANAGER ARCHITECTURAL Work Phone: Start: 09-28-2024 Smr prim src wet cecilia nt nfct agt Sharif Ivory OFFICE HELPER CLERICAL - MANAGER ARCHITECTURAL Work Phone: Start: 05-26-2024 Smr prim src wet eccilia nt nfct agt Sharif Ivory OFFICE HELPER CLERICAL - MANAGER ARCHITECTURAL Work Phone: Start: 02-21-2024 C. TRACHOMATIS + N. GONORRHOEAE, AMPLIFIED NO GENERIC PROVIDER Start: 02-21-2024 TRICH VAGINALIS, AMPLIFIED NO GENERIC PROVIDER Start: 06-19-2023 Ecg routine ecg w/le ast 12 lds w/i&r Jose Littlejohn PA-C Work Phone: Start: 09-08-2022 End: 09-08-2022 EKG impression Kirk Roldan Start: 09-02-2020 Iadna chlamydia trac homatis amplified probe tq Cally Mitch Start: 09-02-2020 Trichomonas vaginali s [Presence] in Cervix by Wet preparation Cally Meyer Start: 01-19-2019 Antibody screen BRAULIO LILLY Comment on above: Performed By: #### U ARFX #### [facility] [address] [place] [address] Start: 09-18-2018 Antibody screen BRAULIO LILLY Comment on above: Performed By: #### T S3 #### [facility] [address] [place] [address] Bilateral tubal ligation No PCP None Dilation and curettage Claudia Wisdom Plan of Treatment Date Care Activity Detail Author Start: 2054 RSV patient s and/or patients aged 60+ years (1 - 1-dose 60+ series) RSV patients and/or patients aged 60+ years (1 - 1-dose 60+ series) [facility] Start: 2044 Zoster Vaccines (1 o f 2) Zoster Vaccines (1 of 2) [facility] Start: 11-13-2028 DTaP/Tdap/Td vaccine (3 - Td or Tdap) DTaP/Tdap/Td vaccine (3 - Td or Tdap) [facility] Start: 11-13-2028 DTaP/Tdap/Td Vaccine s (3 - Td or Tdap) DTaP/Tdap/Td Vaccines (3 - Td or Tdap) [facility] Start: 07-05-2024 COVID-19 Vaccine ( season) COVID-19 Vaccine ( season) [facility] Start: 07-05-2024 Influenza vaccination Influenz a Vaccine (Season Ended) [facility] Start: 2024 Screening for malign ant neoplasm of cervix [facility] Start: 06-04-2024 Influenza vaccination Flu vaccine (# 1) [facility] Start: 07-05-2023 COVID-19 Vaccine ( season) COVID-19 Vaccine ( season) [facility] Start: 06-04-2023 Influenza vaccination Flu vaccine (# 1) [facility] Start: 02-20-2023 FUV, Provider: Cally Meyer, Status: Pen, Time: 9:15 AM FUV, Provider: Cally Meyer, Status: Pen, Time: 9:15 AM [facility] Work Phone: Start: 12-19-2022 FUV, Provider: Chacorta Erwin, Status: Pen, Time: 2:45 PM FUV, Provider: Chacorta Erwin, Status: Pen, Time: 2:45 PM [facility] Work Phone: Start: 09-08-2022 Syncope Syncope Date: 08-Sep-2022 [facility] Start: 2015 Screening for malign ant neoplasm of cervix [facility] Start: 2013 Hepatitis B vaccine (1 of 3 - 19+ 3-dose series) Hepatitis B vaccine (1 of 3 - 19+ 3-dose series) [facility] Start: 2013 Hepatitis B Vaccines (1 of 3 - 19+ 3-dose series) Hepatitis B Vaccines (1 of 3 - 19+ 3-dose series) [facility] Start: 2012 Hepatitis C screening B [facility] Start: 2009 HIV screening HIV screen [facility] Start: 2007 Varicella vaccination Varicell a Vaccines (1 of 2 - 13+ 2-dose series) [facility] Start: 2007 Varicella vaccine (1 of 2 - 13+ 2-dose series) Varicella vaccine (1 of 2 - 13+ 2-dose series) Number 100 Start: 2006 Depression Screen Depression Screen [facility] Start: 1995 MMR Vaccines (1 of 1 - Standard series) MMR Vaccines (1 of 1 - Standard series) [facility] Start: 1995 Varicella vaccine (1 of 2 - 2-dose childhood series) Varicella vaccine (1 of 2 - 2-dose childhood series) [facility] Start: 01-01-1995 COVID-19 Vaccine (#1) COVID-19 Vacci ne (#1) [facility] Start: 1994 Hepatitis B vaccine (1 of 3 - 3-dose series) Hepatitis B vaccine (1 of 3 - 3-dose series) [facility] [employer] Start: 1994 HIV screening HIV Screening [facility] Start: 1994 Lipid panel Lipid Panel [facility] Start: 1994 Yearly Adult Physical Yearly Adult P hysical [facility] C.trachomatis N.gonorrhoeae DNA C.trachomatis N.gonorrhoeae DNA Microbiology Routine 09/28/2024 6:55 AM EST Number 100 Work Phone: C.trachomatis N.gonorrhoeae DNA C.trachomatis N.gonorrhoeae DNA Microbiology Routine 12/04/2024 7:45 AM EST [employer] [facility] Work Phone: End: 02-21-2024 Chlamydia trachomatis and Neisseria gonorrhoeae DNA [Identifier] in Unspecified specimen by JOSE R with probe detection [facility] Service Area Work Phone: Comment on above: Once (Lab) for 1 Occ urrences starting 02/21/2024 until 02/21/2024 EKG 12 Lead EKG 12 Lead ECG STAT 06/19/2023 9:49 PM EDT [employer] Work Phone: End: 12-08-2024 Hepatitis C RNA, quantitative, PCR [employer] [facility] Work Phone: Comment on above: Once for 1 Occurrenc es starting 12/08/2024 until 12/08/2024 End: 02-21-2024 Trichomonas vaginalis rRNA [Presence] in Unspecified specimen by JOSE R with probe detection [facility] Work Phone: Comment on above: Once (Lab) for 1 Occ urrences starting 02/21/2024 until 02/21/2024 Immunizations Immunization Date Immunization Notes Care Provider Tia johnson 11-13-2018 tetanus toxoid, redu wilson diphtheria toxoid, and acellular pertussis vaccine, adsorbed [employer]ica [employer]dom [id number] Work Phone: Comment on above: Series: 08-05-2015 influenza virus vacc ine, unspecified formulation No PCP [facility] Work Phone: Comment on above: Series: 08-05-2015 influenza, seasonal, injectable Chica Wisdom [id number]-[id number] [facility] Work Phone: 08-02-2015 tetanus toxoid, redu wilson diphtheria toxoid, and acellular pertussis vaccine, adsorbed Chica Wisdom [id number] [facility] Work Phone: Comment on above: Series: Payers Date Payer Category Payer Unknown [id number] 2019 Unknown 2019 Unknown [id number] 1994 Unknown [id number] 2.16.8 40.1.487438.3.579.2.355 1994 Unknown [id number] 2.16.8 40.1.647849.3.579.2.355 1994 Unknown [id number] 2.16.8 40.1.181279.3.579.2.355 1994 Unknown [id number] 2.16.8 40.1.516245.3.579.2.355 1994 Unknown [id number] 2.16.8 40.1.227825.3.579.2.355 1994 Unknown [id number] 2.16.8 40.1.543466.3.579.2.355 1994 Unknown [id number] 2.16.8 40.1.465668.3.579.2.355 1994 Unknown [id number] 2.16.8 40.1.105745.3.579.2. 1994 Unknown [id number] 2.16.8 40.1.795297.3.579.2. 1994 Unknown [id number] 2.16.8 40.1.832996.3.579.2. 1994 Unknown [id number] 2.16.8 40.1.767478.3.579.2. 1994 Unknown [id number] 2.16.8 40.1.352519.3.579.2. 1994 Unknown [id number] 2.16.8 40.1.554075.3.579.2. 1994 Unknown [id number] 2.16.8 40.1.543442.3.579.2.1067 1994 Unknown [id number] 2.16.8 40.1.991815.3.579.2.1067 1994 Unknown [id number] 2.16.8 40.1.671335.3.579.2.1067 1994 Unknown [id number] 2.16.8 40.1.437885.3.579.2.1067 1994 Unknown [id number] 2.16.8 40.1.824818.3.579.2.1067 1994 Unknown [id number] 2.16. 840.1.581314.3.579.2.356 1994 Unknown [id number] 2.16.8 40.1.349829.3.579.2. 1994 Unknown [id number] 2.16.8 40.1.897919.3.579.2.182 1994 Unknown [id number] 2.16.8 40.1.415849.3.579.2.182 1994 Unknown [id number] 2.16.84 0.1.277240.3.579.2.1246 1994 Unknown [id number] 2.16.8 40.1.707705.3.579.2.173 1994 Unknown [id number] 2.16.8 40.1.049115.3.579.2.173 1994 Unknown [id number] 2.16.8 40.1.755285.3.579.2.173 1994 Unknown [id number] 2.16.8 40.1.305939.3.579.2.173 1994 Unknown [id number] 2.16.8 40.1.146035.3.579.2.173 1994 Unknown [id number] 2.16.8 40.1.997938.3.579.2.173 1994 Unknown [id number] 2.16.8 40.1.803555.3.579.2.173 1994 Unknown [id number] 2.16.8 40.1.683832.3.579.2.173 Social History Date Type Detail Facility Assertion Tobacco smoking consumption unknown (finding) [id number] [facility] Work Phone: Tobacco smoking consumption unknown [facility] Start: 04-24-2024 Caffeine use Caffeine use [facility] Work Phone: Start: 10-08-2022 End: 02-21-2024 Tobacco smoking status NHIS Never smoked tobacco [employer] Start: 10-08-2022 End: 02-21-2024 Tobacco use and exposure Smokeless tobacco non-user [employer] Start: 10-08-2022 End: 04-24-2024 Alcohol intake Current drinker of alcohol (finding) [employer] Start: 06-20-2023 History SDOH Alcohol Frequency 3 [employer] Start: 06-20-2023 History SDOH Alcohol Std Drinks 2 [employer] Start: 1995 Sex Assigned At Not on file [employer] Start: 02-21-2024 Alcoholic beverage intake Lifetime non-drinker (finding) [facility] Work Phone: Start: 04-24-2024 Gender identity Not on file [facility] Work Phone: Start: 02-11-2024 End: 02-21-2024 Exposure to SARS-CoV-2 (event) Not sure [facility] Work Phone: How often to you hav e a drink containing alcohol? Never [employer] How many standard drinks containing alcohol do you have on a typical day? Patient does not drink [employer] Medical Equipment Procedure Code Equipment Code Equipment Original Text Equipment Identifier Dates Clip, [place], Tubal, Filshie Case [id number] Start: 06-18-2019 Comment on above: Description: Convert ed from [facility]. Please see archived information for full log information. Functional Status Date Assessment Result Facility NEGATED: Highlighted row Functional performance Functional status health issues are not documented Disease [id number] [facility] Work Phone: Mental Status Date Assessment Result Facility NEGATED: Highlighted row Cognitive function [Interpretation] Cognitive status health issues are not documented Disease [id number] [facility] Work Phone: Emergency department Note [...] Diagnosis Date Anemia complicating , unspecified trimester ([facility]) Anemia of mother in Chlamydial infection, unspecified Positive Chlamyida test Encounter for screening for infections with a predominantly sexual mode of transmission Screen for STD (sexually transmitted disease) Gonococcal infection, unspecified Gonorrhea in female Missed ([facility]) Missed Other abnormal findings in urine Leukocytes [...] PA-C 02/21/24 1101 documented in this encounter [facility] Work Phone: Physician Emergency department Note [...] Diagnosis Date Anemia complicating , unspecified trimester ([facility]) Anemia of mother in Chlamydial infection, unspecified Positive Chlamyida test Encounter for screening for infections with a predominantly sexual mode of transmission Screen for STD (sexually transmitted disease) Gonococcal infection, unspecified Gonorrhea in female Missed ([facility]) Missed Other abnormal findings in urine Leukocytes [...] Procedure Procedures Radha Lima PA-C 02/21/24 1101 [facility] Work Phone: Progress note 10-16-2021 Note Date & Type Note Facility 10-16-2021 Note HNO ID: [id number] Author: Juan Antonio Esqueda PA-C Service: ? Author Type: Physician Drying Frame Operator Type: Progress Notes Filed: 10/16/2021 10:24 AM Note Text: This note was created using [employer]. Subjective Juliette Hernández is a 26 year [...] Exam Vitals reviewed. Exam conducted with a clod puller present (Latia Pantoja MA present for exam). [...] Abstain from se (more content not included)... [facility] Progress note 07-15-2021 Note Date & Type Note Facility 07-15-2021 Note HNO ID: [id number] Author: Rubina Lala PA-C Service: ? Author Type: Physician Drying Frame Operator Type: Progress Notes Filed: 07/15/2021 1:58 PM [...] while awaiting COVID results. - 2019 CORONAVIRUS [facility] Evaluation note Note Date & Type Note Facility Evaluation note Diagnosis Multiple drug overdose, accidental or unintentional, initial encounter- Primary documented in this encounter [facility] Evaluation note Note Date & Type Note Facility Evaluation note Diagnosis Trichomonas exposure- Primary Rash Rash and other nonspecific skin eruption documented in this encounter [facility] Work Phone: History of Present illness [...] grammatical areas may persist related to the Shuttersong softwareChacorta Erwin MDOffice: . [facility] Work Phone: History of Present illness Narrative [...] trigger point injection Botox injection Kerry therapy [facility] Work Phone: Hospital Discharge instructions Attachments Note Date & Type Note Facility Hospital Discharge instructions The following attachments cannot be sent through Care Everywhere.Drug Overdose: Multidrug (Mauritanian)documented in this encounter [facility] Discharge instructions Attachments Note Date & Type Note Facility Hospital Discharge instructions The following attachments cannot be sent through Care Everywhere.Skin Rash ED (Mauritanian)Sexually transmitted infections (Mauritanian)documented in this encounter [facility] Work Phone: Summary Purpose Family History [...] intercourse and with insert of tampon * clod puller mariam rma * Est pt here for pain with intercourse and with insert of tampon * clod puller mariam rma Additional Source Comments INFORMATION SOURCE (unrecogn ized section and content) DATE CREATED AUTHOR 01/26/2019 [facility] DATE CREATED AUTHOR AUTHOR'S ORGANIZ ATION 12/11/2021 [facility] DATE CREATED AUTHOR AUTHOR'S ORGANIZ ATION 01/03/2023 [facility] DATE CREATED AUTHOR AUTHOR'S ORGANIZ ATION 01/11/2023 [facility] DATE CREATED AUTHOR AUTHOR'S ORGANIZ ATION 01/12/2023 [employer] DATE CREATED AUTHOR AUTHOR'S ORGANIZ ATION 06/21/2023 [facility] DATE CREATED AUTHOR AUTHOR'S ORGANIZ ATION 02/22/[address] [facility] DATE CREATED AUTHOR AUTHOR'S ORGANIZ ATION [facility]20[facility] <item><item><item><item><item> Privacy Markings (unrecogniz [...] dose 2228 (New Bag - Provider: Angelica Skinner, RN) 0004 (Stopped - Provider: Sheila Edwards, [...] Care Teams (unrecognized sec tion and content) Custom Stock Maker Relationship Specialty Start Date End Date Chacorta Erwin MD [address] [facility], [address] [place] [address] PCP - [facility] PCP 08/04/23 Generic Provider, No [place] [address] PCP - General Cobbler Upper 02/21/24 [employer] Relationship Specialty Start Date End Date Sunny Lilly MD [address] [place] [address] PCP - General Neurology 06/25/23 Custom Stock Maker Relationship Specialty Start Date End Date Sunny Lilly MD [address] [place], [place] [id number] PCP - General Neurology 06/25/23 Custom Stock Maker Relationship Specialty Start Date End Date Sunny Lilly MD [address] [place] [place], [place] [id number] PCP - General Neurology 06/25/23 FOR RECORDS [...] BE BASED ON THE PRIMARY CLINICAL RECORDS. [facility] [employer] [facility]. provides no warranty or guarantee of the accuracy or completeness of information in this document.
[2024-12-16] MEDS: KETOROLAC TROMETHAMINE 30 MG/ML VIAL 15 MG IVP (09:23)
[2024-12-16] MEDS: DIAZEPAM 10 MG/2 ML SYRINGE 2.5 MG IV (09:23)
[2024-12-16 09:24] LABS: Basophils Percent Auto 0.5 % (0.2-2.0); Eosinophils Absolute Auto 0.1 10^3/uL (0.0-0.7); Eosinophils Percent Auto 1.1 % (0.9-7.0); Hemoglobin 11.4 g/dL (12.0-16.0); Immature Granulocytes Abs Auto 0.02 10^3/uL (0.00-0.03); Immature Granulocytes Pct Auto 0.3 % (0.0-0.5); Lymphocytes Absolute Auto 1.5 10^3/uL (1.2-3.8); Lymphocytes Percent Auto 19.7 % (20.5-60.0); Mean Corpuscular HGB Conc 32.6 g/dL (29.9-35.2); Mean Corpuscular Hemoglobin 27.3 pg (26.7-34.0); Mean Corpuscular Volume 83.7 fL (81.0-99.0); Mean Platelet Volume 9.5 fL (9.5-13.5); Monocytes Absolute Auto 0.8 10^3/uL (0.3-0.8); Monocytes Percent Auto 10.1 % (1.7-12.0); Neutrophils Absolute Auto 5.1 10^3/uL (1.4-6.5); Neutrophils Percent Auto 68.3 % (43.0-75.0); Platelet Count 442 10^3/uL (150-450); Red Blood Count 4.18 10^6/uL (4.20-5.40); Red Cell Distribution Width 13.2 % (11.0-15.0); White Blood Count 7.4 10^3/uL (4.0-11.0)
[2024-12-16 09:36] LABS: Alanine Aminotransferase 37 U/L (14-59); Albumin Globulin Ratio 1.1; Albumin Level 3.9 g/dL (3.4-5.0); Alkaline Phosphatase 73 U/L (46-116); Anion Gap 12.3; Aspartate Amino Transferase 23 U/L (15-37); Bilirubin Total 0.5 mg/dL (0.2-1.0); Calcium 9.1 mg/dL (8.5-10.1); Carbon Dioxide 30.3 mmol/L (21.0-32.0); Chloride 102 mmol/L (98-107); Estimated GFR (African America >60 (>=60 mL/min/1.73m^2); Estimated GFR (Non-African Ame >60 (>=60 mL/min/1.73m^2); Globulin 3.7 g/dL; Glucose 122 mg/dL (74-106); Potassium 3.6 mmol/L (3.5-5.1); Sodium 141 mmol/L (136-145); Total Protein 7.6 g/dL (6.4-8.2)
[2024-12-16 09:39] LABS: Amylase 21 U/L (25-115); Troponin I High Sensitivity <4.0 pg/mL (4.0-51.3)
--- NOTE | 2024-12-16 09:48 | ED.CHESTPAI1 ---
HPI - Chest Pain General Chief Complaint: Chest Pain Stated Complaint: CHEST PAIN Time Seen by Provider: 12/16/24 08:54 Mode of arrival: Wheelchair History of Present Illness HPI narrative: Patient is to ED complaining of right lower chest pain. She said this happened suddenly when she was at her IOP appointment. She came in screaming and crying in pain and writhing in the bed in obvious distress. She said she did not get injured she did not twist or pull anything she said it just started suddenly. She does still have her gallbladder in place. She said it hurts worse with breathing or pushing on the area. She denies any back pain. No nausea vomiting or fevers. She denies any abdominal pain. No cough or shortness of breath. She is anxious and in distress and worried about the pain. No lower leg pain calf pain or swelling. Patient not hypoxic. Related Data Home Medications ?Medication ?Instructions ?Recorded ?Confirmed clonidine HCl 0.1 mg tablet 0.1 mg PO Q8H 12/16/24 12/16/24 docusate sodium 100 mg capsule 200 mg PO BID PRN constipation 12/16/24 12/16/24 fluoxetine 20 mg capsule 20 mg PO DAILY 12/16/24 12/16/24 fluoxetine 40 mg capsule (Prozac) 40 mg PO DAILY 12/16/24 12/16/24 hydrochlorothiazide 25 mg tablet 25 mg PO DAILY 12/16/24 12/16/24 pramipexole 0.125 mg tablet mg 12/16/24 Allergies Allergy/AdvReac Type Severity Reaction Status Date / Time No Known Drug Allergies Allergy Verified 12/16/24 08:57 Review of Systems ROS Status of ROS 10 or more systems reviewed and unremarkable except as noted in history and below [facility] Medical History (Updated 12/16/24 @ 13:00 by Jenny Garcia DO) History of depression ?Z86.59 - Personal history of other mental and behavioral disorders (ICD-10) Social History Little interest or pleasure in doing things: not at all Feeling down, depressed, or hopeless: not at all Exam Narrative Exam Narrative: Time Seen: [] Vital Signs: [Per nurse's notes.] General: [Alert] Skin: [Warm, dry, no rash.] Head: [Normocephalic, atraumatic.] Neck: [Supple, trachea midline.] Eye: [Pupils are equal, round and reactive to light, extraocular movements are intact, normal conjunctiva.] Ears, nose, mouth and throat: oral mucosa moist. Cardiovascular: [Regular rate and rhythm, no murmur.] Respiratory: [Lungs are clear to auscultation, respirations are non-labored, breath sounds are equal.] Chest wall: [Tenderness to palpation in the right anterior lower ribs and right upper quadrant Gastrointestinal: [Soft, mild tenderness in the right upper quadrant., non distended, normal bowel sounds.] MSK: 5 out of 5 muscle strength x 4 extremities no calf pain or edema Lymphatics: [No lymphadenopathy.] Psychiatric: [Cooperative, appropriate mood & affect.] Neurological: [Alert and oriented to person, place, time, and situation, no focal neurological deficit observed.] Constitutional Vital Signs, click to edit/add: Last Vital Signs Temp 98.5 F 12/16/24 08:59 Pulse 57 L 12/16/24 11:40 Resp 17 12/16/24 11:40 BP 126/71 12/16/24 11:40 Pulse Ox 99 12/16/24 11:40 O2 Del Method Nasal Cannula 12/16/24 10:55 O2 Flow Rate 3 12/16/24 10:55 Course Vital Signs Vital signs: Vital Signs Temperature 98.5 F 12/16/24 08:59 Pulse Rate 78 12/16/24 08:59 Respiratory Rate 20 12/16/24 08:59 Blood Pressure 151/87 H 12/16/24 08:59 Pulse Oximetry 100 12/16/24 08:59 Oxygen Delivery Method Room Air 12/16/24 08:59 Temperature 98.5 F 12/16/24 08:59 Pulse Rate 57 L 12/16/24 11:40 Respiratory Rate 17 12/16/24 11:40 Blood Pressure 126/71 12/16/24 11:40 Pulse Oximetry 99 12/16/24 11:40 Oxygen Delivery Method Nasal Cannula 12/16/24 10:55 Oxygen Delivery Flow Rate 3 12/16/24 10:55 MDM - Chest Pain MDM Narrative Medical decision making narrative: EKG was nonacute. D-dimer negative, no PE. Patient was found to have spontaneous pneumothorax on chest x-ray. I spoke to Dr. Ibarra who will be here until Saturday to manage the chest tube. I then did speak to Dr. Ware about admission versus transfer. Dr. Ware said most likely she will go home by Saturday and if not he will transfer the patient out if needed. Chest tube was inserted into the right chest cavity, postprocedure x-ray showed improvement of the pneumothorax. Patient was given procedural sedation but tolerated well. Dr. Ware came to the ED to see the patient. Patient will be admitted upstairs and Dr. Ibarra will be on consultation. Patient is stable in ED prior to transfer to floor. Differential Diagnosis Differential diagnosis: Likely pneumothorax, unstable angina pectoris, atypical chest pain, st elevation myocardial infarction and chest pain Lab Data Attestation: I reviewed the patient's lab results. Labs: Lab Results 12/16/24 Range/Units 09:14 WBC 7.4 (4.0-11.0) 10^3/uL RBC 4.18 L (4.20-5.40) 10^6/uL Hgb 11.4 L (12.0-16.0) g/dL Hct 35.0 L (36.0-48.0) % MCV 83.7 (81.0-99.0) fL MCH 27.3 (26.7-34.0) pg MCHC 32.6 (29.9-35.2) g/dL RDW 13.2 (11.0-15.0) % Plt Count 442 (150-450) 10^3/uL MPV 9.5 (9.5-13.5) fL Neut % (Auto) 68.3 (43.0-75.0) % Lymph % (Auto) 19.7 L (20.5-60.0) % [place] % (Auto) 10.1 (1.7-12.0) % Eos % (Auto) 1.1 (0.9-7.0) % Baso % (Auto) 0.5 (0.2-2.0) % Neut # (Auto) 5.1 (1.4-6.5) 10^3/uL Lymph # (Auto) 1.5 (1.2-3.8) 10^3/uL [place] # (Auto) 0.8 (0.3-0.8) 10^3/uL Eos # (Auto) 0.1 (0.0-0.7) 10^3/uL Baso # (Auto) 0.0 (0.0-0.1) 10^3/uL Abs Immat Gran (auto) 0.02 (0.00-0.03) 10^3/uL Imm/Tot Granulo (auto) 0.3 (0.0-0.5) % D-Dimer 0.29 (<=0.59) mg/L FEU Sodium 141 (136-145) mmol/L Potassium 3.6 (3.5-5.1) mmol/L Chloride 102 (98-107) mmol/L Carbon Dioxide 30.3 (21.0-32.0) mmol/L Anion Gap 12.3 BUN 13.0 (7.0-18.0) mg/dL Creatinine 0.81 (0.55-1.02) mg/dL Est GFR ( Amer) >60 (>=60 mL/min/1.73m^2) Est GFR (Non-Af Amer) >60 (>=60 mL/min/1.73m^2) BUN/Creatinine Ratio 16.0 Glucose 122 H (74-106) mg/dL Calcium 9.1 (8.5-10.1) mg/dL Total Bilirubin 0.5 (0.2-1.0) mg/dL AST 23 (15-37) U/L ALT 37 (14-59) U/L Alkaline Phosphatase 73 (46-116) U/L Troponin I High Sens <4.0 L (4.0-51.3) pg/mL Total Protein 7.6 (6.4-8.2) g/dL Albumin 3.9 (3.4-5.0) g/dL Globulin 3.7 g/dL Albumin/Globulin Ratio 1.1 Amylase 21 L (25-115) U/L Lipase 28.0 (16.0-77.0) U/L Imaging Data Chest x-ray: Radiologist's impression: ITS Impressions Chest X-Ray 12/16/24 09:06 IMPRESSION: 1. Large right apical pneumothorax 2.9 cm in thickness. Findings discussed with Dr. Garcia via telephone prior to dictation. Electronically authenticated by: KEYSHA MORROW Date: 12/16/2024 10:08 Chest X-Ray 12/16/24 11:16 IMPRESSION: Interval placement of right chest tube with reduction in right pneumothorax. Electronically authenticated by: RISSA LOPEZ Date: 12/16/2024 11:44 Repeat chest x-ray shows good placement of chest tube and improvement of ECG Data Attestation: I personally reviewed and interpreted this ECG as follows: Interpretation: EKG INTERPRETATION Time: [] 902 Rate: [] 73 Rhythm: _ [] Sinus rhythm ST segments: _ [] Inverted T wave in lead III otherwise no acute ST elevation or depression T waves: _ [] Ectopy: _ [] P wave/[place] interval: _ [] QRS interval: _ [] QT interval: _ [] Comparison: _ [] Comparison EKG date: [] Performed by: [self] Critical Care Time Critical Care Time Critical Care Time: Yes Total Critical Care Time: 52 Attestation: Pneumothorax with chest tube placement Discharge Plan Discharge Chief Complaint: Chest Pain Clinical Impression: Pneumothorax on right Patient Disposition: Admitted As Inpatient Time of Disposition Decision: 12:58 Condition: Fair Prescriptions / Home Meds: No Action fluoxetine [Prozac] 40 mg capsule 40 mg PO DAILY Patient Comments: 60mg daily clonidine HCl 0.1 mg tablet 0.1 mg PO Q8H pramipexole 0.125 mg tablet docusate sodium 100 mg capsule 200 mg PO BID PRN (Reason: constipation) hydrochlorothiazide 25 mg tablet 25 mg PO DAILY fluoxetine 20 mg capsule 20 mg PO DAILY Print Language: Croatian Referrals: Physician,Non-Staff, MD [Primary Care Provider] - 1 week Procedures Chest Tube Placement Chest Tube Chest Tube 1: Chest tube location: Mid-Axillary Chest Size of tube: 20 Chest tube procedure: Yes betadine prep and sterile drapes applied Tube sutured to skin: Yes Sterile dressing applied: Yes Anesthesia: 1% Lidocaine Volume anesthetic (ml): 10 Incision made with: #11 blade Post procedure: sutured to skin Neri of air heard: Yes Tube Drainage: none Post procedure CXR?: Yes Patient tolerated procedure: Yes Progress: Chest tube placement was successful. Post x-ray showed improved pneumothorax. Anesthesia Bedside Procedure Procedural Section Pre-procedural diagnosis: Right-sided pneumothorax Post-procedural diagnosis: Chest tube placement for treatment of right sided pneumothorax Written consent obtained: patient Verification/time out: correct patient, correct site, correct procedure and time out performed Name of person performing procedure: Dr. Garcia Indication procedural sedation: other (Chest tube placement) ASA class: I Mallampati classification: I. soft palate, fauces, uvula, pillars visible Preparation: mailroom assistant applied, pulse oximeter, capnometry used, supplemental O2 applied, suction/airway equipment and IV secured IV etomidate dose (mg): 40 Complications: none Conclusion: patient tolerated procedure
[2024-12-16 09:52] LABS: D Dimer 0.29 mg/L FEU (<=0.59)
[2024-12-16] MEDS: ETOMIDATE 20 MG/10 ML VIAL IVP (11:04)
[2024-12-16] MEDS: ETOMIDATE 20 MG/10 ML VIAL 10 MG IVP ×2 (11:09→11:13)
--- NOTE | 2024-12-16 11:16 | XR_ITS ---
The [address] [address] Patient Name: YAIN HAGAN MRN: [id number] date: 1995 Sex: F Assigned Patient Location: ER Current Patient Location: ER Accession/Order Number: [id number] Exam Date: 12/16/2024 11:20 Report Date: 12/16/2024 11:44 At the request of: MICHELINE STOCKTON Procedure: XR chest 1V EXAMINATION: XR chest 1V HISTORY: chest tube COMPARISON: 12/16/2024 at 9:34 AM TECHNIQUE: Portable AP FINDINGS: LUNGS: Interval placement of a right chest tube, the tip projects over the upper lung zone. Reduction in right pneumothorax now measuring a maximum of 1.1 cm at the apex. The left lung is clear VASCULATURE: No increased pulmonary vasculature. PLEURA: No pneumothorax, effusion, or pleural thickening. CARDIAC: No cardiomegaly or cardiac silhouette abnormality. MEDIASTINUM: No visible mass or adenopathy. BONES: No fracture or visible bone lesion. OTHER: Negative. XR/XR chest 1V IMPRESSION: Interval placement of right chest tube with reduction in right pneumothorax. Electronically authenticated by: RISSA LOPEZ Date: 12/16/2024 11:44
[2024-12-16] MEDS: 0.9 % SODIUM CHLORIDE 1,000 ML 100 ML IV (11:28)
[2024-12-16] MEDS: MORPHINE SULFATE 4 MG/ML VIAL IV (11:28)
[2024-12-16] MEDS: HYDROMORPHONE HCL 0.5 MG/0.5 ML SYRINGE IV (12:16)
--- NOTE | 2024-12-16 12:39 | P.HP_ITS ---
HPI H&P: HPI History of Present Illness Chief complaint: CHEST PAIN SPONTANEOUS PNEUMOTHORAX Narrative: Pain patient presented to the emergency room-acute onset of right-sided chest pain, never had anything like this before, in ER found to have a right-sided pneumothorax, chest tube was placed and chest x-ray is pending at the time of admission When I saw patient in the emergency room, resting very uncomfortable in bed secondary to the pain., Patient with no inciting injury, she did not sustain a fall, did not happen after cough, laugh or sneeze. Opioid HPI Opioid Management Most Recent Pain and Opioid Data: Last Pain Scale 5 12/16/24 16:11 12/16/24 Last Pain Assessment 12/16/24 18:07 Last MAR Pain Assessment 12/16/24 15:20 Last ORT Total Score 6 12/16/24 13:48 12/16/24 Last ORT Risk Category Moderate Risk 12/16/24 13:48 12/16/24 Review of Systems ROS Status of ROS 10 or more systems reviewed and unremark able except as noted in history and below PFSH PFS Medical History (Updated 12/16/24 @ 16:00 by Salazar Ibarra DO) Anxiety ?F41.9 - Anxiety disorder, unspecified (ICD-10) History of depression ?Z86.59 - Personal history of other mental and behavioral disorders (ICD-10) Family History (Updated 12/16/24 @ 13:52 by Yuliana Tang RN) Grandfather Family history of myocardial infarction Mother Family history of myocardial infarction Grandmother Family history of cancer Social History (Updated 12/16/24 @ 13:52 by Yuliana Tang RN) Within the past year, how often did you have a drink containing alcohol: never Score interpretation: A score less than 3 is consistent with normal alcohol consumption. Smoking status: Never smoker Non-prescribed substance use: denies use Highest level of school completed/degree received: GED or equivalent Little interest or pleasure in doing things: not at all Feeling down, depressed, or hopeless: not at all Meds Home Medications and Allergies Home Medications ?Medication ?Instructions ?Recorded ?Confirmed ?Type fluoxetine 20 mg capsule 20 mg PO DAILY 12/16/24 12/16/24 History fluoxetine 40 mg capsule (Prozac) 40 mg PO DAILY 12/16/24 12/16/24 History Allergies Allergy/AdvReac Type Severity Reaction Status Date / Time No Known Drug Allergies Allergy Verified 12/16/24 08:57 Exam Constitutional Vital Signs, click to edit/add: Last Vital Signs Temp 98.5 F 12/16/24 08:59 Pulse 57 L 12/16/24 11:40 Resp 17 12/16/24 11:40 BP 126/71 12/16/24 11:40 Pulse Ox 99 12/16/24 11:40 O2 Del Method Nasal Cannula 12/16/24 10:55 O2 Flow Rate 3 12/16/24 10:55 Common normals: apparent distress Chest Common normals: inspection of chest abnormal (Chest tube placed right-sided) Respiratory Common normals: clear to auscultation bilaterally; abnormal respiratory effort (Tachypneic) Cardio Common normals: regular rate, regular rhythm and no murmurs GI Common normals: Normal to inspection, nondistended, normoactive bowel sounds present Results Labs Labs: Short CBC 12/16/24 Range/Units 09:14 WBC 7.4 (4.0-11.0) 10^3/uL Hgb 11.4 L (12.0-16.0) g/dL Hct 35.0 L (36.0-48.0) % Plt Count 442 (150-450) 10^3/uL BMP 12/16/24 09:14 Sodium 141 Potassium 3.6 Chloride 102 Carbon Dioxide 30.3 BUN 13.0 Creatinine 0.81 Glucose 122 H Calcium 9.1 Liver Function 12/16/24 Range/Units 09:14 Total Bilirubin 0.5 (0.2-1.0) mg/dL AST 23 (15-37) U/L ALT 37 (14-59) U/L Alkaline Phosphatase 73 (46-116) U/L Albumin 3.9 (3.4-5.0) g/dL Assessment and Plan Assessment and Plan (1) Pneumothorax on right: (2) Urinary tract infection: Plan Admission findings: Right-sided pneumothorax, uncontrolled high blood pressure, mild bradycardia Right-sided spontaneous pneumothorax-plan per pulmonology Acute UTI based on urinalysis-start oral antibiotics History of narcotic abuse, she was on Suboxone in the past, will try patient on IV Tylenol for pain control, avoiding narcotics and she can have Toradol [id number] Admission status: Patient with acute pneumothorax-medically necessary treatment will span 2 midnights. Inpatient status
[2024-12-16] MEDS: KETOROLAC TROMETHAMINE 30 MG/ML VIAL IVP ×2 (15:20→21:05)
--- NOTE | 2024-12-16 15:26 | PM.PLHP ---
History of Present Illness History of Present Illness Chief complaint: CHEST PAIN SPONTANEOUS PNEUMOTHORAX Narrative: 29yo female presented to [facility] with abrupt onset chest pain. That she has been more significant and she developed shortness of breath. Chest x-ray revealed the presence of a large right pneumothorax. 20Fr thoracostomy tube was placed by the ER. Post-CXR showed improvement, but not complete resolution, of the pneumothorax. Patient is seen on the floor. She states dyspnea has improved. Still has right-sided chest pain, but unclear if residual from the pneumothorax vs. thoracostomy tube insertion. Chest tube @ [id number]. Reviewed the patient's history and potential risk factors?the patient has none. She denies any history of smoking either marijuana or cigarettes, or vaping. No prior history of asthma or COPD. There is no family history of COPD/emphysema or spontaneous pneumothoraces. No family history of kidney cancer. She denies any heavy lifting or recent Valsalva maneuvers; Denies lifting any heavy objects. She is not on her menstrual cycle, but states it is going to begin soon. No motor vehicle accidents or other trauma to the chest. Only significant medical condition she has is depression. The only thing she can recall was having a larger piece of furniture fall on top of her, but that was when she was age 4-5 years old. Review of Systems ROS Status of ROS 10 or more systems reviewed and unremarkable except as noted in history and below [facility] Medical History (Updated 12/16/24 @ 16:00 by Salazar Ibarra DO) Anxiety ?F41.9 - Anxiety disorder, unspecified (ICD-10) History of depression ?Z86.59 - Personal history of other mental and behavioral disorders (ICD-10) Family History (Updated 12/16/24 @ 13:52 by Yuliana Tang RN) Grandfather Family history of myocardial infarction Mother Family history of myocardial infarction Grandmother Family history of cancer Social History (Updated 12/16/24 @ 13:52 by Yuliana Tang RN) Within the past year, how often did you have a drink containing alcohol: never Score interpretation: A score less than 3 is consistent with normal alcohol consumption. Smoking status: Never smoker Non-prescribed substance use: denies use Highest level of school completed/degree received: GED or equivalent Little interest or pleasure in doing things: not at all Feeling down, depressed, or hopeless: not at all Meds Home Medications and Allergies Home Medications ?Medication ?Instructions ?Recorded ?Confirmed ?Type fluoxetine 20 mg capsule 20 mg PO DAILY 12/16/24 12/16/24 History fluoxetine 40 mg capsule (Prozac) 40 mg PO DAILY 12/16/24 12/16/24 History Allergies Allergy/AdvReac Type Severity Reaction Status Date / Time No Known Drug Allergies Allergy Verified 12/16/24 08:57 Exam Constitutional Vital Signs, click to edit/add: Last Vital Signs Temp 98.0 F 12/16/24 13:48 Pulse 61 12/16/24 13:54 Resp 16 12/16/24 13:48 BP 129/76 12/16/24 13:48 Pulse Ox 99 12/16/24 13:54 O2 Del Method Nasal Cannula 12/16/24 13:48 O2 Flow Rate 6 12/16/24 13:48 Other: Patient is laying in bed and has mild discomfort from thoracostomy tube HENMT Other: Mucous membranes are moist. Mallampati II. Chest Other: Well-dressed 20Fr thoracostomy tube. Mild amount of blood present in the tube. No subcutaneous emphysema. Patient is on -20cm H2O suction. Placing patient on water seal briefly, there was no air leak present. Respiratory Other: Breath sounds are shallow and diminished but clear bilaterally. Cardio Other: RRR Extremity Other: No edema. 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 Neuro Common normals: oriented x3 Sensorium/orientation: awake and alert Psych Appearance: grossly normal Attitude: calm and engaged Activity/motor behavior: appropriate eye contact Results Laboratory Findings ABG, PT/INR, D-dimer: PT/INR, D-dimer D-Dimer 0.29 mg/L FEU (<=0.59) 12/16/24 09:14 Abnormal lab findings: Abnormal Labs 12/16/24 09:14 RBC 4.18 L Hgb 11.4 L Hct 35.0 L Lymph % (Auto) 19.7 L Glucose 122 H Troponin I High Sens <4.0 L Amylase 21 L Diagnostic Findings Chest x-ray: report reviewed and image reviewed Assessment and Plan Assessment and Plan (1) Primary spontaneous pneumothorax: Onset Date: 12/16/24 Assessment and Plan: Right primary spontaneous pneumothorax. As far as I can tell, there are no inciting factors to explain why the patient developed a spontaneous pneumothorax for no apparent reason. 20Fr thoracostomy tube was placed by ER Which improved, but did not completely resolve, the pneumothorax. Differential for potential causes include: Congenital, secondary to alpha-1 antitrypsin deficiency, catamenial pneumothorax, Nhth-[id number]-[id number]? syndrome, unknown trauma or there is unreported smoking (I do not believe the patient is lying). Plan: O2 at 6L/min for N2-washout. Continue with suction d/t non-resolution of pneumothorax on post-thoracostomy insertion CXR. Pain control. CT chest without contrast. Daily CXR. Check alpha 1-antitrypsin genotype & level.
--- NOTE | 2024-12-16 17:34 | CT_ITS ---
[address] [address] Patient Name: YANI HAGAN MRN: [id number] date: 1995 Sex: F Assigned Patient Location: MS Current Patient Location: MS Accession/Order Number: [id number] Exam Date: 12/16/2024 17:30 Report Date: 12/16/2024 18:19 At the request of: ROSANA SAN Procedure: CT chest wo con EXAM: CT chest wo con HISTORY: Right primary spontaneous pneumothorax COMPARISON: None. TECHNIQUE: Axial CT imaging was performed through the chest without intravenous contrast. Multiplanar reformats were performed. Dose reduction techniques were achieved by using automated exposure control and/or adjustment of mA and/or kV according to patient size and/or use of iterative reconstruction technique. FINDINGS: Lungs: Small right pneumothorax. Distal tip of the right chest tube is seen in the right upper back (extra thoracic), should be repositioned. Bibasilar atelectasis. No pleural effusion. Airways: Normal. Mediastinum: No adenopathy. Aorta: No aneurysm. Cardiac: Normal size. No pericardial effusion. Coronary Arteries: Coronary calcifications are absent. Pulmonary vasculature: Normal morphology. Bones: No acute bony abnormality. Axilla: No adenopathy. Thyroid gland: No abnormality demonstrated on provided imaging. Soft tissues: A small right lateral chest wall subcutaneous emphysema. Upper abdomen: Unremarkable. Other findings: None. CT/CT chest wo con IMPRESSION: Small right pleural effusion. Distal tip of the right chest tube is seen in the right upper back (extra thoracic), should be repositioned... Electronically authenticated by: CATA KNAPP Date: 12/16/2024 18:19
[2024-12-16] MEDS: LEVOFLOXACIN 750 MG TABLET PO (21:05)
[2024-12-17] VITALS (19 sets, daily range): BP systolic 97–116; BP diastolic 62–71; PULSE 56–77; TEMP 36.6–37.1; O2SAT 88–100
[2024-12-17] MEDS: KETOROLAC TROMETHAMINE 30 MG/ML VIAL IVP ×4 (03:11→21:10)
[2024-12-17 05:30] LABS: Basophils Absolute Auto 0.1 10^3/uL (0.0-0.1); Basophils Percent Auto 0.9 % (0.2-2.0); Eosinophils Absolute Auto 0.1 10^3/uL (0.0-0.7); Eosinophils Percent Auto 1.8 % (0.9-7.0); Hematocrit 32.5 % (36.0-48.0); Hemoglobin 10.4 g/dL (12.0-16.0); Immature Granulocytes Abs Auto 0.02 10^3/uL (0.00-0.03); Immature Granulocytes Pct Auto 0.3 % (0.0-0.5); Lymphocytes Absolute Auto 1.5 10^3/uL (1.2-3.8); Lymphocytes Percent Auto 21.2 % (20.5-60.0); Mean Corpuscular Hemoglobin 26.8 pg (26.7-34.0); Mean Corpuscular Volume 83.8 fL (81.0-99.0); Mean Platelet Volume 9.6 fL (9.5-13.5); Monocytes Absolute Auto 0.7 10^3/uL (0.3-0.8); Monocytes Percent Auto 10.2 % (1.7-12.0); Neutrophils Absolute Auto 4.5 10^3/uL (1.4-6.5); Neutrophils Percent Auto 65.6 % (43.0-75.0); Platelet Count 368 10^3/uL (150-450); Red Blood Count 3.88 10^6/uL (4.20-5.40); Red Cell Distribution Width 13.4 % (11.0-15.0); White Blood Count 6.8 10^3/uL (4.0-11.0)
[2024-12-17 05:40] LABS: Anion Gap 11.3; BUN Creatinine Ratio 24.2; Calcium 8.5 mg/dL (8.5-10.1); Carbon Dioxide 28.8 mmol/L (21.0-32.0); Chloride 105 mmol/L (98-107); Estimated GFR (African America >60 (>=60 mL/min/1.73m^2); Estimated GFR (Non-African Ame >60 (>=60 mL/min/1.73m^2); Glucose 101 mg/dL (74-106); Potassium 4.1 mmol/L (3.5-5.1); Sodium 141 mmol/L (136-145)
--- NOTE | 2024-12-17 06:00 | XR_ITS ---
The [address] [address] Patient Name: YANI HAGAN MRN: [id number] date: 1995 Sex: F Assigned Patient Location: MS Current Patient Location: MS Accession/Order Number: [id number] Exam Date: 12/17/2024 07:15 Report Date: 12/17/2024 07:40 At the request of: CALLY MAI Procedure: XR chest 1V EXAMINATION: XR chest 1V HISTORY: pneumo COMPARISON: No relevant comparison available. FINDINGS: LUNGS: Stable large caliber chest tube within right hemithorax with tip near apex. Residual 4 mm pneumothorax within lateral upper right hemithorax. No appreciable infiltrates. VASCULATURE: No increased pulmonary vasculature. PLEURA: See above. CARDIAC: No cardiomegaly or cardiac silhouette abnormality. MEDIASTINUM: No visible mass or adenopathy. BONES: No fracture or visible bone lesion. OTHER: Negative. XR/XR chest 1V IMPRESSION: 1. Stable right chest tube in good position. 2. Residual 4 mm pneumothorax within upper lateral right hemithorax. Electronically authenticated by: KEYSHA MORROW Date: 12/17/2024 07:40
--- NOTE | 2024-12-17 06:46 | P.PN_ITS ---
Progress Note: Subjective Subjective Interval history: Patient in significant amount of pain but she is just had the chest tube removed and is being sutured, able to take a little bit deeper breaths Exam Constitutional Vital Signs, click to edit/add: Last Vital Signs Temp 98.2 F 12/17/24 04:00 Pulse 72 12/17/24 06:08 Resp 14 12/17/24 04:00 BP 97/62 12/17/24 04:00 Pulse Ox 98 12/17/24 06:08 O2 Del Method Nasal Cannula 12/17/24 04:40 O2 Flow Rate 6 12/17/24 04:40 Other: Patient is laying in bed and has mild discomfort from thoracostomy tube HENMT Other: Mucous membranes are moist. Mallampati II. Chest Other: Well-dressed 20Fr thoracostomy tube. Mild amount of blood present in the tube. No subcutaneous emphysema. Patient is on -20cm H2O suction. Placing patient on water seal briefly, there was no air leak present. Respiratory Common normals: normal respiratory effort and no use of accessory muscles Auscultation: no rales and no rhonchi Other: Breath sounds are shallow and diminished but clear bilaterally. Cardio Other: RRR Extremity Other: No edema. 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 Neuro Common normals: oriented x3 Sensorium/orientation: awake and alert Psych Appearance: grossly normal Attitude: calm and engaged Activity/motor behavior: appropriate eye contact Progress Note: Objective Labs Labs: Short CBC 12/16/24 12/17/24 Range/Units 09:14 04:57 WBC 7.4 6.8 (4.0-11.0) 10^3/uL Hgb 11.4 L 10.4 L (12.0-16.0) g/dL Hct 35.0 L 32.5 L (36.0-48.0) % Plt Count 442 368 (150-450) 10^3/uL BMP 12/16/24 12/17/24 09:14 04:57 Sodium 141 141 Potassium 3.6 4.1 Chloride 102 105 Carbon Dioxide 30.3 28.8 BUN 13.0 16.0 Creatinine 0.81 0.66 Glucose 122 H 101 Calcium 9.1 8.5 Liver Function 12/16/24 Range/Units 09:14 Total Bilirubin 0.5 (0.2-1.0) mg/dL AST 23 (15-37) U/L ALT 37 (14-59) U/L Alkaline Phosphatase 73 (46-116) U/L Albumin 3.9 (3.4-5.0) g/dL Progress Note: A&P Assessment and Plan (1) Pneumothorax on right: (2) Urinary tract infection: Plan Admission findings: Right-sided pneumothorax, uncontrolled high blood pressure, mild bradycardia Right-sided spontaneous pneumothorax-plan per pulmonology is to remove the tube, repeat chest x-ray later today and in a.m., if remains stable can be discharged to home tomorrow Acute UTI based on urinalysis-start oral antibiotics, culture pending History of narcotic abuse, she was on Suboxone in the past, will try patient on IV Tylenol for pain control, avoiding narcotics and she can have Toradol [id number] Admission status: Patient with acute pneumothorax-medically necessary treatment will span 2 midnights. Inpatient status ?
[2024-12-17] MEDS: FLUOXETINE HCL 20 MG CAPSULE 60 MG PO (08:06)
[2024-12-17] MEDS: LIDOCAINE HCL 2% PF 100 MG/5 ML VIAL INJ (08:32)
--- NOTE | 2024-12-17 08:50 | P.PLPN_ITS ---
Progress Note: A&P Assessment and Plan (1) Pneumothorax on right: Assessment and Plan: 1. Primary spontaneous pneumothorax on the right. So far, I do not have any identifiable cause. Thoracostomy tube is malpositioned; it is outside the chest and is therefore not functioning as intended. The pneumothorax has not increased in size this morning compared to postprocedural thoracostomy tube insertion yesterday. The improvement in the pneumothorax from presentation was likely due to penetration of the chest cavity during the initial placement of thoracostomy tube allowing the air to escape; I spoke with respiratory therapy who confirmed that they heard a whosh of air when the ER physician was dissecting the intercostal muscles. Unfortunately, the thoracostomy tube was unable to advance between the ribs into the pleural cavity. I recommended removal of the thoracostomy tube since it is not functioning and may be contributing to her pain. The patient voiced agreement. The thoracostomy tube was removed during exhalation. No air sounds were auscultated. The incision was not approximating well, so I recommended simple suture to approximate the edges; patient voiced agreement. The area was cleansed with ChloraPrep, and a single simple suture was placed. The RN chaperoned the procedure. As there is no worsening of the pneumothorax with essentially the only treatment being supplemental O2 over the past 18+ hours, and a residual pneumothorax on chest x-ray this morning is only 4 mm, I felt attempting to reinsert the thoracostomy tube had more risks than just continue to monitor the patient without any thoracostomy tube. I discussed this with the patient, who voiced understanding and agreement with this plan of care. Plan will be to order a chest x-ray this afternoon to confirm stability of the pneumothorax. She is to continue on 6L/min O2 for N2 washout. If the pneumothorax is stable, will recheck chest x-ray tomorrow morning. If the pneumothorax is stable or decreased in size, we will discuss letting the patient be discharged home. She would need to return to the ER stat if she develops any worsening shortness of breath or chest pain. Otherwise, I would have her repeat a chest x-ray after the weekend to monitor stability/continued resolution of the pneumothorax. 2. Alcohol abuse. Patient is on Suboxone for this. She has no history of narcotic abuse. She is having some pain from the thoracostomy tube; hopefully, the removal of the tube will improve her pain. However, the Toradol may not be enough. Consider additional pain medication short-term. 3.History of crack cocaine use. Possible risk factor for development of pneumothorax? She states she has not done this for years. Subjective Subjective Interval history: Patient had CT chest done yesterday. The report was relayed to me by the nursing staff. I was told that the thoracostomy tube was positioned in the back with radiologist recommended adjusting it. I did not have access to review the chest imaging myself. As her saturations were doing fine, and the pneumothorax did not appear to be enlarging, so I elected to monitor her overnight and reposition it this morning. I was able to personally review the CT imaging this morning. My understanding of the back was that it was positioned posteriorly in the cavity. Unfortunately, back was literally the back - outside the thoracic cavity. I examined the chest tube and the atrium. There was no tidal of the chamber. A repeat chest x-ray this morning did not show any increased in the pneumothorax (measured at 4 mm) compared to yesterday's postprocedural chest x-ray. The patient states that she is in quite a bit of pain. She has Toradol which only has mild benefit. I reviewed her history again, commenting that I did not see any evidence of any bulla, blebs, or other abnormalities in the chest to explain why she would have a spontaneous pneumothorax. She admitted that she used crack cocaine in the past, but that was years ago. She is on Suboxone for alcohol abuse; she denies ever using heroin or other opiates recreationally. Exam Constitutional Vital Signs, click to edit/add: Last Vital Signs Temp 97.9 F 12/17/24 08:00 Pulse 63 12/17/24 08:00 Resp 16 12/17/24 08:00 BP 101/64 12/17/24 08:00 Pulse Ox 97 12/17/24 08:00 O2 Del Method Nasal Cannula 12/17/24 08:00 O2 Flow Rate 6 12/17/24 08:00 Other: Patient appears to be in mild discomfort HENMT Other: Mucous membranes are moist. Mallampati II. Chest Other: Undressed thoracostomy tube. It is sutured in place well. Mild serous drainage. Minimal subcutaneous emphysema surrounding area. Very tender to the touch. Respiratory Other: Breath sounds remain diminished and shallow. No wheezes, crackles, or rhonchi. Cardio Other: RRR Extremity Other: No edema. 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 Neuro Common normals: oriented x3 Sensorium/orientation: awake and alert Psych Appearance: grossly normal Attitude: calm and engaged Activity/motor behavior: appropriate eye contact
--- NOTE | 2024-12-17 09:43 | CM.NOTE ---
Rounds made with Dr. Ware, plan of care discussed with pt. Dr. Ibarra removed chest tube today and will get another chest x-ray this afternoon. No discharge today. Discussed with pt also reason for suboxone, pt is on it for alcoholism. Dr. Ware and Dr. Ibarra discussed pain control for patient.
[2024-12-17] MEDS: HYDROMORPHONE HCL 0.5 MG/0.5 ML SYRINGE IV (11:22)
--- NOTE | 2024-12-17 14:00 | XR_ITS ---
The [address] [address] Patient Name: YANI HAGAN MRN: [id number] date: 1995 Sex: F Assigned Patient Location: MS Current Patient Location: MS Accession/Order Number: [id number] Exam Date: 12/17/2024 15:50 Report Date: 12/17/2024 15:51 At the request of: ROSANA SAN Procedure: XR chest 1V EXAMINATION: XR chest 1V HISTORY: Right PTX (chest tube removed d/t poor placement) residual thrombus or a radiology Camille cell is prior COMPARISON: XR chest 05/16/2025 5:48 AM FINDINGS: LUNGS: Interval removal of right chest tube. Further decrease in size of the second pneumothorax along the upper lateral right chest wall, now 2 mm in thickness. VASCULATURE: No increased pulmonary vasculature. PLEURA: See above. CARDIAC: No cardiomegaly or cardiac silhouette abnormality. MEDIASTINUM: No visible mass or adenopathy. BONES: No fracture or visible bone lesion. OTHER: Negative. XR/XR chest 1V IMPRESSION: 1. Interval removal of right chest tube. 2. Minimal residual right pneumothorax; but < seen earlier today. Electronically authenticated by: KEYSHA MORROW Date: 12/17/2024 15:51
--- NOTE | 2024-12-17 14:40 | SWNOTE1 ---
SW stopped in to speak with pt in regards to her living situation. Pt was sleeping, but woke up when SW went in. SW asked pt if she was staying in sober living? Pt stated that she is and it is in [place]. SW asked if it was at [facility] or connected to [facility]? She stated it is not [facility]. She stated it is at the [facility] in [place]. She stated a doctor bought that hotel and one in [place] and one in another town and peoply stay there for 6 months for free as long as they go to intense outpt therapy 7 days a week. Once the 6 months is up they help transition to regular housing. SW asked if they have to do anything prior to getting in to this? She stated someone has to go to inpt rehab. She stated she went to [facility] and then transitioned there. Pt voiced she is doing well and working at [employer]. She stated she has been sober since June. Pt has no other concerns at this time. SW to follow as needed.
[2024-12-17] MEDS: LEVOFLOXACIN 750 MG TABLET PO (21:10)
[2024-12-18] VITALS (10 sets, daily range): BP systolic 100–110; BP diastolic 56–70; PULSE 61–79; TEMP 36.5–36.8; O2SAT 95–99
[2024-12-18] MEDS: HYDROMORPHONE HCL 0.5 MG/0.5 ML SYRINGE IV (01:23)
[2024-12-18] MEDS: KETOROLAC TROMETHAMINE 30 MG/ML VIAL IVP ×2 (03:26→08:18)
[2024-12-18 05:47] LABS: Basophils Percent Auto 0.5 % (0.2-2.0); Eosinophils Absolute Auto 0.2 10^3/uL (0.0-0.7); Eosinophils Percent Auto 2.1 % (0.9-7.0); Hematocrit 32.3 % (36.0-48.0); Hemoglobin 10.4 g/dL (12.0-16.0); Immature Granulocytes Abs Auto 0.01 10^3/uL (0.00-0.03); Immature Granulocytes Pct Auto 0.1 % (0.0-0.5); Lymphocytes Absolute Auto 1.2 10^3/uL (1.2-3.8); Lymphocytes Percent Auto 16.4 % (20.5-60.0); Mean Corpuscular HGB Conc 32.2 g/dL (29.9-35.2); Mean Corpuscular Hemoglobin 27.2 pg (26.7-34.0); Mean Corpuscular Volume 84.3 fL (81.0-99.0); Mean Platelet Volume 9.5 fL (9.5-13.5); Monocytes Absolute Auto 0.7 10^3/uL (0.3-0.8); Neutrophils Absolute Auto 5.2 10^3/uL (1.4-6.5); Neutrophils Percent Auto 71.9 % (43.0-75.0); Platelet Count 357 10^3/uL (150-450); Red Blood Count 3.83 10^6/uL (4.20-5.40); Red Cell Distribution Width 13.2 % (11.0-15.0); White Blood Count 7.3 10^3/uL (4.0-11.0)
--- NOTE | 2024-12-18 06:00 | XR_ITS ---
The [address] [address] Patient Name: YANI HAGAN MRN: [id number] date: 1995 Sex: F Assigned Patient Location: MS Current Patient Location: MS Accession/Order Number: [id number] Exam Date: 12/18/2024 06:10 Report Date: 12/18/2024 07:31 At the request of: CALLY MAI Procedure: XR chest 1V EXAMINATION: XR chest 1V HISTORY: pneumo COMPARISON: XR chest 12/17/2024 FINDINGS: LUNGS: No significant pulmonary parenchymal abnormalities. VASCULATURE: No increased pulmonary vasculature. PLEURA: No pneumothorax, effusion, or pleural thickening. CARDIAC: No cardiomegaly or cardiac silhouette abnormality. MEDIASTINUM: No visible mass or adenopathy. BONES: No fracture or visible bone lesion. OTHER: Negative. XR/XR chest 1V IMPRESSION: 1. No residual pneumothorax. Electronically authenticated by: KEYSHA MORROW Date: 12/18/2024 07:31
[2024-12-18 06:07] LABS: Anion Gap 9.4; BUN Creatinine Ratio 32.3; Calcium 8.7 mg/dL (8.5-10.1); Carbon Dioxide 30.7 mmol/L (21.0-32.0); Chloride 105 mmol/L (98-107); Estimated GFR (African America >60 (>=60 mL/min/1.73m^2); Estimated GFR (Non-African Ame >60 (>=60 mL/min/1.73m^2); Glucose 101 mg/dL (74-106); Potassium 4.1 mmol/L (3.5-5.1); Sodium 141 mmol/L (136-145)
--- NOTE | 2024-12-18 06:23 | P.DS_ITS ---
DS: Providers Provider Date of admission: 12/16/24 13:32 Primary care physician: Non-Staff Physician, Consults: 12/16/24 12:39 Consult to Pharmacy Routine Consulting Provider: Reason for consultation: Please [place] me when Med Rec is Updated Has provider been notified: No Consult to Pulmonology Routine Consulting Provider: Salazar Ibarra Reason for consultation: Pneumo DS: Diagnosis Discharge Diagnosis (1) Pneumothorax on right: (2) Urinary tract infection: Plan Admission findings: Right-sided pneumothorax, uncontrolled high blood pressure, mild bradycardia Right-sided spontaneous pneumothorax-plan per pulmonology is to remove the tube, repeat chest x-ray later today and in a.m., if remains stable can be discharged to home tomorrow Acute UTI based on urinalysis-start oral antibiotics, culture pending History of narcotic abuse, she was on Suboxone in the past, will try patient on IV Tylenol for pain control, avoiding narcotics and she can have Toradol [id number] Admission status: Patient with acute pneumothorax-medically necessary treatment will span 2 midnights. Inpatient status ? ? DS: Summary Hospital Course Hospital Course: Patient had acute onset of chest pain, very sharp, some shortness of breath, no inciting injury, no fall no trauma to the chest, in ER found to have right-sided pneumothorax, chest tube was placed, the chest tube was evaluated later in the day and seemed to be malpositioned and the chest tube was removed the following day, repeat chest x-ray later in the day showed pneumothorax persisting x-rays morning shows the pneumothorax is all resolved at this point we discontinued her ambulate around chest wall pain from the procedure discharged home in improving condition. Symptoms. Follow-up with me within the next week. Status at Discharge Overall status at discharge: patient is not back to baseline Time Spent with Patient Time attestation: Total time spent providing and/or coordinating discharge services: Time spent: greater than 30 minutes Exam Constitutional Vital Signs, click to edit/add: Last Vital Signs Temp 98.2 F 12/18/24 04:58 Pulse 67 12/18/24 06:00 Resp 18 12/18/24 04:58 BP 101/56 12/18/24 04:58 Pulse Ox 97 12/18/24 04:58 O2 Del Method Nasal Cannula 12/18/24 04:58 O2 Flow Rate 6 12/18/24 04:58 Other: Patient is laying in bed and has mild discomfort from thoracostomy tube HENMT Other: Mucous membranes are moist. Mallampati II. Chest Other: Well-dressed 20Fr thoracostomy tube. Mild amount of blood present in the tube. No subcutaneous emphysema. Patient is on -20cm H2O suction. Placing patient on water seal briefly, there was no air leak present. Respiratory Common normals: normal respiratory effort and no use of accessory muscles Auscultation: no rales and no rhonchi Other: Breath sounds are shallow and diminished but clear bilaterally. Cardio Other: RRR Extremity Other: No edema. 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 Neuro Common normals: oriented x3 Sensorium/orientation: awake and alert Psych Appearance: grossly normal Attitude: calm and engaged Activity/motor behavior: appropriate eye contact DS: Data Data Completed and Pending Labs on day of discharge: Labs from last 24 hours 12/18/24 05:31 WBC 7.3 RBC 3.83 L Hgb 10.4 L Hct 32.3 L MCV 84.3 MCH 27.2 MCHC 32.2 RDW 13.2 Plt Count 357 MPV 9.5 Neut % (Auto) 71.9 Lymph % (Auto) 16.4 L Bremer % (Auto) 9.0 Eos % (Auto) 2.1 Baso % (Auto) 0.5 Neut # (Auto) 5.2 Lymph # (Auto) 1.2 Bremer # (Auto) 0.7 Eos # (Auto) 0.2 Baso # (Auto) 0.0 Abs Immat Gran (auto) 0.01 Imm/Tot Granulo (auto) 0.1 Sodium 141 Potassium 4.1 Chloride 105 Carbon Dioxide 30.7 Anion Gap 9.4 BUN 20.0 H Creatinine 0.62 Est GFR ( Amer) >60 Est GFR (Non-Af Amer) >60 BUN/Creatinine Ratio 32.3 Glucose 101 Calcium 8.7 Discharge Plan Discharge Disposition: Home, Self-Care Condition: Fair Discharge Medications: Continued fluoxetine [Prozac] 40 mg capsule 40 mg PO DAILY Patient Comments: 60mg daily fluoxetine 20 mg capsule 20 mg PO DAILY Activity: resume usual activities as tolerated Diet: regular diet Print Language: Sami Patient Instructions: Spontaneous Pneumothorax (DC), Chest Tubes (DC) Forms: Portal Instructions Follow Up Appointments: Mamadou Hodge. Dec at 10:30 Discharge Date/Time: 12/18/24 10:04
[2024-12-18] MEDS: FLUOXETINE HCL 20 MG CAPSULE 60 MG PO (08:18)
--- NOTE | 2024-12-18 09:04 | CM.NOTE ---
Rounds made with Dr. Ware. Plan for discharge today. List given for family physicians. Follow up in one week with Dr. Ware.
--- NOTE | 2024-12-22 15:34 | CM.DCFOLLOWU ---
Person spoke with:patient, she was at work How are you feeling?well How is your pain?none Did you understand your discharge instructions?yes Do you have any questions about your discharge instructions?no Were you given any prescriptions at discharge?no Were you able to get your prescriptions filled?N/A Do you understand how to take your medications as ordered?yes Do you have any questions about your follow up appointment and do you plan to keep your follow up appointment? no questions, follow up reviewed Is there anything else that you would like to discuss?no Questions/Comments/Concerns/Other:none
== END 2024-12-18 10:04 | disposition home or self-care (01) | DRG 143 ==
LOC: ER 13:00 → MS 13:35
PROVIDERS: Internal Medicine; Admitting Provider Family Medicine; Emergency Provider Emergency Medicine; Visit Provider Family Medicine
DX: J93.11 Primary spontaneous pneumothorax (principal); F41.9 Anxiety disorder, unspecified; N39.0 Urinary tract infection, site not specified; R00.1 Bradycardia, unspecified; I10 Essential (primary) hypertension; F19.11 Other psychoactive substance abuse, in remission; F32.A Depression, unspecified; F10.10 Alcohol abuse, uncomplicated; Y90.9 Presence of alcohol in blood, level not specified
CPT/HCPCS: 32551; 36415; 71045; 71046; 71250; 80048; 80053; 82103; 82104; 82150; 83690; 84484; 85025; 85378; 93005; 96374; 96375; 99285; J1171; J1885; J2270; J3360

== ENCOUNTER 2024-12-24 10:57 | Outpatient (OUT) | payer OTHER, SELFPAY ==
--- NOTE | 2024-12-24 11:14 | XR_ITS ---
[facility] [place] [address] Patient Name: YANI HAGAN MRN: [id number] date: 1995 Sex: F Assigned Patient Location: [facility] Current Patient Location: [facility] Accession/Order Number: [id number] Exam Date: 12/24/2024 13:44 Report Date: 12/24/2024 13:47 At the request of: YUE CARTER Procedure: XR chest 2V PA AND LATERAL CHEST: CLINICAL HISTORY: Follow-up in patient with history of spontaneous right pneumothorax J93.83 COMPARISON: 12/16/2024 through 12/18/2024 There is no focal parenchymal consolidation, effusion or residual pneumothorax. The cardiac, hilar and mediastinal silhouettes are within normal limits. There is no vascular congestion. The visualized bony thorax is intact. XR/XR chest 2V IMPRESSION: NO ACUTE CARDIOPULMONARY ABNORMALITY. Impression dictated by: Pooja Xiong M.D.12/24/2024 1:47 PM Dictation Location: [place] [address] Electronically authenticated by: [id number] Y Date: 12/24/2024 13:47
--- OUTSIDE RECORDS SUMMARY | 2024-12-24 11:19 | XMS_ITS | CCD ---
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 Chacorta Tatum Attending U navailable Rip, Dr. Chacorta [...] Unavailable Sunny Lilly MD Primary Care Provider GUANAKOADRIANA LOVEEST Referring Unavailable MAXX, KHALID Primary [...] machinery. take 1 capsule by mo [facility] three times daily gabapentin (NEURONTIN) 300 MG [...] Active Start: 06-02-2020 take 1 capsule by [facility] every twelve hours Nitrofurantoin Monohyd Macro [...] Status: Completed Generic Substitution Allowed Comments: Caution [place] law prohibits the transfer of this drug to any person other than the person for whom it was prescribed.May cause drowsiness. Alcohol may intensify this effect. Use care when operating dangerous machinery.Obtain medical advice before taking any non-prescription drugs as some may affect the action of this medication. 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 [address] Satellite Dish Repairer: Adonis Thomas [facility] Erythrocyte distribution width (RBC) [Ratio] 13.1 % Normal 11.8-14.4 [facility] Comment on above: Performed By: #### W P #### [address] [place] [address] Satellite Dish Repairer: Adonis Thomas MD Hematocrit (Bld) [Volume fraction] 33.8 % Low 36.3-47.1 [facility] Comment on above: Performed By: #### W P #### [address] [place] [address] Satellite Dish Repairer: Adonis Thomas MD Hemoglobin (Bld) [Mass/Vol] 10.9 g/dL Low 11.9-15.1 [facility] Comment on above: Performed By: #### W P #### [address] [place] [address] Satellite Dish Repairer: Adonis Thomas MD MCH (RBC) [Entitic mass] 27.0 pg Normal 25.2-33.5 [facility] Comment on above: Performed By: #### W P #### [address] [place] [address] Satellite Dish Repairer: Adonis Thomas MD MCHC (RBC) [Mass/Vol] 32.2 g/dL Normal 28.4-34.8 [facility] Comment on above: Performed By: #### W P #### [address] [place], [place] [id number] Satellite Dish Repairer: Adonis Thomas MD MCV (RBC) [Entitic vol] 83.9 fL Normal 82.6-102.9 [facility] Comment on above: Performed By: #### W P #### [address] [place], [place] [id number] Satellite Dish Repairer: Adonis Thomas MD Platelet mean volume (Bld) [Entitic vol] 9.8 fL Normal 8.1-13.5 [facility] Comment on above: Performed By: #### W P #### [address] [place], [place] [id number] Satellite Dish Repairer: Adonis Thomas MD Platelets (Bld) [#/Vol] 332 10*3/uL Normal 138-453 [facility] Comment on above: Performed By: #### W P #### [address] [place], [place] [address]83 Satellite Dish Repairer: Adonis Thomas MD RBC (Bld) [#/Vol] 4.03 10*6/uL Normal 3.95-5.11 [facility] Comment on above: Performed By: #### W P #### [address] [place], [place] [id number] Satellite Dish Repairer: Adonis Thomas MD Interpretation and review of laboratory results Abnormal [facility] Nucleated RBC/100 WBC (Bld) [Ratio] 0.0 % 0.0 per 100 WBC [facility] WBC other (Bld) [#/Vol] 4.8 [facility] NRBC Automated 0.0 per 100 WBC Normal 0.0 [facility] Comment on above: Performed By: #### W P #### [facility] [address] [place], [place] [id number] Satellite Dish Repairer: Adonis Thomas MD WBC (Bld) [#/Vol] 4.8 10*3/uL Normal 3.5-11.3 [facility] Comment on above: Performed By: #### W P #### [facility] [address] [place], [place] [id number] Satellite Dish Repairer: Adonis Thomas MD Comp Metabolic Profon 2024 Albumin [Mass/Vol] 4.0 g/dL Normal 3.5-5.2 [facility] Comment on above: Performed By: #### W P #### [facility] [address] [place], [place] [id number] Satellite Dish Repairer: Adonis Thomas MD Albumin/Glob Ratio 1.6 Normal 1.0-2.5 [facility] Comment on above: Performed By: #### W P #### [facility] [address] [place], [place] [id number] Satellite Dish Repairer: Adonis Thomas MD Alkaline Phos 65 U/L Normal 35-104 [facility] Comment on above: Performed By: #### W P #### [facility] [address] [place], [place] [id number] Satellite Dish Repairer: Adonis Thomas MD ALT [Catalytic activity/Vol] 28 U/L Normal 10-35 [facility] Comment on above: Performed By: #### W P #### [facility] [address] [place], [place] [id number] Satellite Dish Repairer: Adonis Thomas MD Anion gap [Moles/Vol] 10 mmol/L Normal 9-16 [facility] Comment on above: Performed By: #### W P #### [facility] [address] [place], [place] [id number] Satellite Dish Repairer: Adonis Thomas MD AST [Catalytic activity/Vol] 27 U/L Normal 10-35 [facility] Comment on above: Performed By: #### W P #### [facility] [address] [place], [place] [id number] Satellite Dish Repairer: Adonis Thomas MD Bilirubin [Mass/Vol] mg/dL Normal 0.00-1.20 [facility] Comment on above: Performed By: #### W P #### [facility] [address] [place] [address] Satellite Dish Repairer: Adonis Thomas MD BUN/CRE Ratio 28 High 9-20 [facility] Comment on above: Performed By: #### W P #### [facility] [address] [place] [address] [place] [address] Satellite Dish Repairer: Adonis Thomas MD Calcium [Mass/Vol] 9.0 mg/dL Normal 8.6-10.4 [facility] Comment on above: Performed By: #### W P #### [facility] [address] [place] [address] [place] [place], [place] [id number] Satellite Dish Repairer: Adonis Thomas MD Chloride [Moles/Vol] 102 mmol/L Normal 98-107 [facility] Comment on above: Performed By: #### W P #### [facility] [address] [place] [address] [place] [address] Satellite Dish Repairer: Adonis Thomas MD CO2 [Moles/Vol] 28 mmol/L Normal 20-[address] [facility] Comment on above: Performed By: #### W P #### [facility] [address] [place] [address] [place] [place], [place] [id number] Satellite Dish Repairer: Adonis Thomas MD Creatinine [Mass/Vol] 0.6 mg/dL Normal 0.50-0.90 [facility] Comment on above: Performed By: #### W P #### [facility] [address] [place] [address] [place] [address] Satellite Dish Repairer: Adonis Thomas MD GFR/1.73 sq M.predicted among non-blacks MDRD (S/P/Bld) [Vol rate/Area] mL/min/{1.73_m2} Normal >60 [facility] Comment on above: Result Comment: These results [...] secretion. Performed By: #### W P #### [address] [place] [address] Satellite Dish Repairer: Adonis Thomas MD Glucose [Mass/Vol] 105 mg/dL High 74-99 [facility] Comment on above: Performed By: #### W P #### [address] [place] [address] Satellite Dish Repairer: Adonis Thomas MD Potassium [Moles/Vol] 4.1 mmol/L Normal 3.7-5.3 [facility] Comment on above: Performed By: #### W P #### [address] [place] [address] Satellite Dish Repairer: Adonis Thomas MD Protein [Mass/Vol] 6.5 g/dL Low 6.6-8.7 [facility] Comment on above: Performed By: #### W P #### [facility] [address] [place] [address] [place] [address] Satellite Dish Repairer: Adonis Thomas MD Sodium [Moles/Vol] 140 mmol/L Normal 136-145 [facility] Comment on above: Performed By: #### W P #### [facility] [address] [place] [address] [place] [address] Satellite Dish Repairer: Adonis Thomas MD Urea nitrogen [Mass/Vol] 17 mg/dL Normal 6-20 [facility] Comment on above: Performed By: #### W P #### [facility] [address] [place] [address] Satellite Dish Repairer: Adonis Thomas MD Comprehensive Metabolic Pane adriano 12-08-2024 Albumin [Mass/Vol] 4.0 g/dL 3.5 - 5.2 g/dL [facility] Albumin/Globulin [Mass ratio] 1.6 {ratio} 1.0 - 2.5 [facility] ALP [Catalytic activity/Vol] 65 U/L 35 - 104 U/L [facility] ALT [Catalytic activity/Vol] 28 U/L 10 - 35 U/L [facility] Anion gap [Moles/Vol] 10 mmol/L 9 - 16 mmol/L [facility] AST [Catalytic activity/Vol] 27 U/L 10 - 35 U/L [facility] Bilirubin [Mass/Vol] mg/dL 0.00 - 1.20 mg/dL [facility] Calcium [Mass/Vol] 9.0 mg/dL 8.6 - 10. 4 mg/dL [facility] Chloride [Moles/Vol] 102 mmol/L 98 - 107 mmol/L [facility] CO2 [Moles/Vol] 28 mmol/L 20 - 31 mmol/L [facility] Creatinine [Mass/Vol] 0.6 mg/dL 0.50 - 0.90 mg/dL [facility] Est, Glom Filt Rate - PINF [facility] Comment on above: These results are not [...] mg/dL High 74 - 99 mg/dL [facility] Interpretation and review of laboratory results Abnormal [facility] Potassium [Moles/Vol] 4.1 mmol/L 3.7 - 5.3 mmol/L [facility] Protein [Mass/Vol] 6.5 g/dL Low 6.6 - 8.7 g/dL [facility] Sodium [Moles/Vol] 140 mmol/L 136 - 145 mmol/L [facility] Urea nitrogen [Mass/Vol] 17 mg/dL 6 - 20 mg/dL [facility] Urea nitrogen/Creatinin e [Mass ratio] 28 mg/mg High 9 - 20 [facility] HCG Qualitative, Serumon HCG ( test) Ql Negative NEGATIVE [facility] Comment on above: Specimens with hCG l evels near the threshold of the test (25 mIU/mL) may give a negative or indeterminate result. In such cases, another test should be performed with a new specimen in 48-72 hours. If early is suspected clinically in this setting, correlation with quantitative serum b-hCG level is suggested. [facility] has confirmed the use of plasma for this test. This has not been cleared or approved by the U.S. Food and Drug Administration. The FDA has determined that such clearance is not necessary. [facility] HCG Screen, Bloodon 12-08-19 25 HCG Screen, Blood Negative Normal NEG [facility] Comment on above: Result Comment: Spec imens with hCG levels near the threshold of the test (25 mIU/mL) may give a negative or indeterminate result. In such cases, another test should be performed with a new specimen in 48-72 hours. If early is suspected clinically in this setting, correlation with quantitative serum b-hCG level is suggested. [facility] has confirmed the use of plasma for this test. This has not been cleared or approved by the U.S. Food and Drug Administration. The FDA has determined that such clearance is not necessary. Performed By: #### W P #### [facility] [address] [place] [address] Satellite Dish Repairer: Adonis Thomas MD HCV RNA,Quant,PCRon 12-08-19 25 Source .PLASMA Normal [facility] Comment on above: Performed By: #### U MICAO, UAX #### [facility] [address] [place] [address] Satellite Dish Repairer: Adonis Thomas MD HIV Ag/Abon 12-08-2024 HIV Ag/Ab Non-Reactive Normal [facility] Comment on above: Result Comment: No l aboratory evidence of HIV infection. If acute HIV infection is suspected, consider testing for HIV-1 RNA. Performed By: #### W P #### [facility] [address] [place], [place] [id number] Satellite Dish Repairer: Adonis Thomas MD HIV Screenon 12-08-2024 HIV 1+2 Ab+HIV1 p24 Ag IA Ql Non-Reactive NONREACTIVE [facility] Comment on above: No laboratory eviden ce of HIV infection. If acute HIV infection is suspected, consider testing for HIV-1 RNA. [facility] Hep B Surf Abon 12-08-2024 Hep B Surf Ab <3.50 Normal <10 [facility] Comment on above: Result Comment: REFERENCE RANGE: <10.0 NON-REACTIVE/NOT IMMUNE >=10.0 REACTIVE/IMMUNE Performed By: #### W P #### [address] [place] [address] Satellite Dish Repairer: Adonis Thomas MD Hepatitis Acute [facility] 12-08 Hep A Ab,IgM Non-Reactive Normal [facility] Comment on above: Performed By: #### W P #### [facility] [address] [place] [address] Satellite Dish Repairer: Adonis Thomas MD Hep B Core Ab,IgM Non-Reactive Normal [facility] Comment on above: Performed By: #### W P #### [facility] [address] [place] [address] Satellite Dish Repairer: Adonis Thomas MD Hep B Surf Ag Non-Reactive Normal [facility] Comment on above: Performed By: #### W P #### [facility] [address] [place] [address] Satellite Dish Repairer: Adonis Thomas MD Hep C Ab Non-Reactive Normal NR [facility] Comment on above: Result Comment: The hepatitis [...] PCR. Performed By: #### W P #### [facility] [address] [place] [address] Satellite Dish Repairer: Adonis Thomas MD Hepatitis B Surface Antibody on 12-08-2024 HBV surface Ab IA Qn m[IU]/mL NINF [facility] Comment on above: REFERENCE RANGE: <10.0 NON-REACTIVE/NOT IMMUNE >=10.0 REACTIVE/IMMUNE Hepatitis Panel, Acuteon HAV IgM IA Ql Non-Reactive NONREACTIVE [facility] HBV core IgM IA Ql Non-Reactive NONREACTIVE [facility] HBV surface Ag IA Ql Non-Reactive NONREACTIVE [facility] HCV Ab IA Ql Non-Reactive NONREACTIVE [facility] Comment on above: The hepatitis C [...] by PCR. No Panel Informationon 12-08 [facility] T. pallidum Abon 12-08-2024 T. pallidum Ab IA Ql (S) Non-Reactive NONREACTIVE [facility] Comment on above: T. pallidum antibodies are not detected. There is no serological evidence of infection with T. pallidum (early primary syphilis cannot be excluded). Retest in 2-4 weeks if syphilis is clinically suspect. [facility] T.pallidum Ab Screenon 12-08 T.pallidum Ab Screen Non-Reactive Normal NR [facility] Comment on above: Result Comment: T. pallidum antibodies are not detected. There is no serological evidence of infection with T. pallidum (early primary syphilis cannot be excluded). Retest in 2-4 weeks if syphilis is clinically suspect. Performed By: #### U MICAO, UAX #### [facility] [address] [place] [address] Satellite Dish Repairer: Adonis Thomas MD Chlamydia/GC,DNA Ampon 12-07 Chlamydia Probe Negative Normal NEG [facility] Comment on above: Result Comment: CHLA [...] target. Performed By: #### S WCGP #### [address] [place] [address] Satellite Dish Repairer: Perry Marte MD Gonorrhea Probe Negative Normal NEG [facility] Comment on above: Result Comment: NEIS [...] target. Performed By: #### S WCGP #### [address] [place] [address] Satellite Dish Repairer: Perry Marte MD Trichomonas/Wet Prepon 12-04 Trichomonas/Wet Prep Specimen Description .VAGINAL SPECIMEN Direct Exam YEAST PRESENT CLUE CELLS SEEN NO TRICHOMONAS SEEN Report Status FINAL 12/04/2024 Normal [facility] Comment on above: Performed By: #### W P #### [facility] [address] [place] [address] Satellite Dish Repairer: Adonis Thomas MD Wet prep, genitalon 12-04-19 Microorganism or agent identified Nom (Unsp spec) YEAST PRESENT [facility] Microorganism or agent identified Nom (Unsp spec) CLUE CELLS SEEN [facility] Microorganism or agent identified Nom (Unsp spec) NO TRICHOMONAS SEEN [facility] Specimen Description .VAGINAL SPECIMEN [facility] CBCon 10-14-2024 Erythrocyte distribution width (RBC) [Ratio] 13.8 % Normal 11.8-14.4 [facility] Comment on above: Performed By: #### S WCGP #### [address] [address] Satellite Dish Repairer: Perry Marte MD Hematocrit (Bld) [Volume fraction] 36.1 % Low 36.3-47.1 [facility] Comment on above: Performed By: #### S WCGP #### [address] [address] Satellite Dish Repairer: Perry Marte MD Hemoglobin (Bld) [Mass/Vol] 11.6 g/dL Low 11.9-15.1 [facility] Comment on above: Performed By: #### S WCGP #### [address] [address] Satellite Dish Repairer: Perry Marte MD MCH (RBC) [Entitic mass] 28.0 pg Normal 25.2-33.5 [facility] Comment on above: Performed By: #### S WCGP #### [facility] [employer] [address] [place] [address] Satellite Dish Repairer: Perry Marte MD MCHC (RBC) [Mass/Vol] 32.1 g/dL Normal 28.4-34.8 [facility] Comment on above: Performed By: #### S WCGP #### [address] [address] Satellite Dish Repairer: Perry Marte MD MCV (RBC) [Entitic vol] 87.0 fL Normal 82.6-102.9 [facility] Comment on above: Performed By: #### S WCGP #### [address] [address] Satellite Dish Repairer: Perry Marte MD NRBC Automated 0.0 per 100 WBC Normal 0.0 [facility] Comment on above: Performed By: #### S WCGP #### [address] [address] Satellite Dish Repairer: Perry Marte MD Platelet mean volume (Bld) [Entitic vol] 9.9 fL Normal 8.1-13.5 [facility] Comment on above: Performed By: #### S WCGP #### [address] [address] Satellite Dish Repairer: Perry Marte MD Platelets (Bld) [#/Vol] 312 10*3/uL Normal 138-453 [facility] Comment on above: Performed By: #### S WCGP #### [address] [address] Satellite Dish Repairer: Perry Marte MD RBC (Bld) [#/Vol] 4.15 10*6/uL Normal 3.95-5.11 [facility] Comment on above: Performed By: #### S WCGP #### [address] [address] Satellite Dish Repairer: Perry Marte MD WBC (Bld) [#/Vol] 6.3 10*3/uL Normal 3.5-11.3 [facility] Comment on above: Performed By: #### S WCGP #### [address] [address] Satellite Dish Repairer: Perry Marte MD Comp Metabolic Profon 2023 Albumin [Mass/Vol] 4.5 g/dL Normal 3.5-5.2 [facility] Comment on above: Performed By: #### S WCGP #### [address] [address] Satellite Dish Repairer: Perry Marte MD Albumin/Glob Ratio 1.7 Normal 1.0-2.5 [facility] Comment on above: Performed By: #### S WCGP #### [address] [address] Satellite Dish Repairer: Perry Marte MD Alkaline Phos 86 U/L Normal 35-104 [facility] Comment on above: Performed By: #### S WCGP #### [address] [address] Satellite Dish Repairer: Perry Marte MD ALT [Catalytic activity/Vol] 19 U/L Normal 10-35 [facility] Comment on above: Performed By: #### S WCGP #### [address] [address] Satellite Dish Repairer: Perry Marte MD Anion gap [Moles/Vol] 11 mmol/L Normal 9-16 [facility] Comment on above: Performed By: #### S WCGP #### [address] [address] Satellite Dish Repairer: Perry Marte MD AST [Catalytic activity/Vol] 19 U/L Normal 10-35 [facility] Comment on above: Performed By: #### S WCGP #### [address] [address] Satellite Dish Repairer: Perry Marte MD Bilirubin [Mass/Vol] mg/dL Normal 0.00-1.20 [facility] Comment on above: Performed By: #### S WCGP #### [address] [address] Satellite Dish Repairer: Perry Marte MD BUN/CRE Ratio 23 High 9-20 [facility] Comment on above: Performed By: #### S WCGP #### [facility] [address] [place] [address] Satellite Dish Repairer: Perry Marte MD Calcium [Mass/Vol] 9.4 mg/dL Normal 8.6-10.4 [facility] Comment on above: Performed By: #### S WCGP #### [address] [address] Satellite Dish Repairer: Perry Marte MD Chloride [Moles/Vol] 101 mmol/L Normal 98-107 [facility] Comment on above: Performed By: #### S WCGP #### [address] [address] Satellite Dish Repairer: Perry Marte MD CO2 [Moles/Vol] 26 mmol/L Normal 20-[address] [facility] Comment on above: Performed By: #### S WCGP #### [address] [address] Satellite Dish Repairer: Perry Marte MD Creatinine [Mass/Vol] 0.7 mg/dL Normal 0.50-0.90 [facility] Comment on above: Performed By: #### S WCGP #### [address] [address] Satellite Dish Repairer: Perry Marte MD GFR/1.73 sq M.predicted among non-blacks MDRD (S/P/Bld) [Vol rate/Area] mL/min/{1.73_m2} Normal >60 [facility] Comment on above: Result Comment: These results [...] secretion. Performed By: #### S WCGP #### [facility] [address] [place] [address] Satellite Dish Repairer: Perry Marte MD Glucose [Mass/Vol] 94 mg/dL Normal 74-99 [facility] Comment on above: Performed By: #### S WCGP #### [address] [place] [address] Satellite Dish Repairer: Perry Marte MD Potassium [Moles/Vol] 4.0 mmol/L Normal 3.7-5.3 [facility] Comment on above: Performed By: #### S WCGP #### [address] [address] Satellite Dish Repairer: Perry Marte MD Protein [Mass/Vol] 7.1 g/dL Normal 6.6-8.7 [facility] Comment on above: Performed By: #### S WCGP #### [address] [address] Satellite Dish Repairer: Perry Marte MD Sodium [Moles/Vol] 138 mmol/L Normal 136-145 [facility] Comment on above: Performed By: #### S WCGP #### [address] [address] Satellite Dish Repairer: Perry Marte MD Urea nitrogen [Mass/Vol] 16 mg/dL Normal 6-20 [facility] Comment on above: Performed By: #### S WCGP #### [address] [address] Satellite Dish Repairer: Perry Marte MD HCG Screen, Bloodon 10-14-20 24 HCG Screen, Blood Negative Normal NEG [facility] Comment on above: Result Comment: Spec imens with hCG levels near the threshold of the test (25 mIU/mL) may give a negative or indeterminate result. In such cases, another test should be performed with a new specimen in 48-72 hours. If early is suspected clinically in this setting, correlation with quantitative serum b-hCG level is suggested. [facility] has confirmed the use of plasma for this test. This has not been cleared or approved by the U.S. Food and Drug Administration. The FDA has determined that such clearance is not necessary. Performed By: #### S WCGP #### [address] [address] Satellite Dish Repairer: Perry Marte MD HIV Ag/Abon 10-14-2024 HIV Ag/Ab Non-Reactive Normal [facility] Comment on above: Result Comment: No l aboratory evidence of HIV infection. If acute HIV infection is suspected, consider testing for HIV-1 RNA. Performed By: #### S WCGP #### [address] [address] Satellite Dish Repairer: Perry Marte MD Hep B Surf Abon 10-14-2024 Hep B Surf Ab <3.50 Normal <10 [facility] Comment on above: Result Comment: REFERENCE RANGE: <10.0 NON-REACTIVE/NOT IMMUNE >=10.0 REACTIVE/IMMUNE Performed By: #### S WCGP #### [address] [address] Satellite Dish Repairer: Perry Marte MD Hepatitis Acute [facility] 10-14 Hep A Ab,IgM Non-Reactive Normal [facility] Comment on above: Performed By: #### S WCGP #### [address] [address] Satellite Dish Repairer: Perry Marte MD Hep B Core Ab,IgM Non-Reactive Normal [facility] Comment on above: Performed By: #### S WCGP #### [address] [address] Satellite Dish Repairer: Perry Marte MD Hep B Surf Ag Non-Reactive Normal [facility] Comment on above: Performed By: #### S WCGP #### [address] [address] Satellite Dish Repairer: Perry Marte MD Hep C Ab Non-Reactive Normal [facility] Comment on above: Result Comment: The hepatitis [...] PCR. Performed By: #### S WCGP #### [address] [id number] Satellite Dish Repairer: Perry Marte MD T.pallidum Ab Screenon 10-14 T.pallidum Ab Screen Non-Reactive Normal NR [facility] Comment on above: Result Comment: T. pallidum antibodies are not detected. There is no serological evidence of infection with T. pallidum (early primary syphilis cannot be excluded). Retest in 2-4 weeks if syphilis is clinically suspect. Performed By: #### S WCGP #### [address] [id number] Satellite Dish Repairer: Perry Marte MD Chlamydia/GC,DNA Ampon 09-29 Chlamydia Probe Negative Normal [facility] Comment on above: Result Comment: CHLA MYDIA [...] target. Performed By: #### S WCGP #### [address] [id number] Satellite Dish Repairer: Perry Marte MD Gonorrhea Probe Negative Normal [facility] Comment on above: Result Comment: NEIS SERIA [...] target. Performed By: #### S WCGP #### [employer] [address] [place] [address] Satellite Dish Repairer: Perry Marte MD Trichomonas/Wet Prepon 09-28 Trichomonas/Wet Prep Specimen Description .VAGINAL SPECIMEN Direct Exam FEW CLUE CELLS SEEN NO TRICHOMONAS SEEN NO YEAST OBSERVED Report Status FINAL 09/28/2024 Abnormal [facility] Comment on above: Performed By: #### W P #### [facility] [address] [place] [address] Satellite Dish Repairer: Adonis Thomas MD Wet prep, genitalon 09-28-20 24 Interpretation and review of laboratory results Abnormal [facility] Microorganism or agent identified Nom (Unsp spec) FEW CLUE CELLS SEEN Abnormal [facility] Microorganism or agent identified Nom (Unsp spec) NO TRICHOMONAS SEEN [facility] Microorganism or agent identified Nom (Unsp spec) NO YEAST OBSERVED [facility] Specimen Description .VAGINAL SPECIMEN [facility] Trichomonas/Wet Prepon 05-26 Trichomonas/Wet Prep Specimen Description .VAGINAL SPECIMEN Direct Exam NO YEAST OBSERVED NO TRICHOMONAS SEEN NO CLUE CELLS SEEN Report Status FINAL 05/26/2024 Normal [facility] Comment on above: Performed By: #### S WCGP #### [facility] [address] [place] [address] Satellite Dish Repairer: Perry Marte MD Wet prep, genitalon 05-26-20 24 Microorganism or agent identified Nom (Unsp spec) NO YEAST OBSERVED [facility] Microorganism or agent identified Nom (Unsp spec) NO TRICHOMONAS SEEN [facility] Microorganism or agent identified Nom (Unsp spec) NO CLUE CELLS SEEN [facility] Specimen Description .VAGINAL SPECIMEN [facility] Chlamydia/GC,DNA Ampon 05-11 Chlamydia Probe Negative Normal NEG [facility] Comment on above: Result Comment: CHLA [...] target. Performed By: #### W P #### [address] [place] [address] Satellite Dish Repairer: Adonis Thomas MD Gonorrhea Probe Negative Normal NEG [facility] Comment on above: Result Comment: NEIS [...] target. Performed By: #### W P #### [address] [place] [address] Satellite Dish Repairer: Adonis Thomas MD Trichomonas/Wet Prepon 05-08 Trichomonas/Wet Prep Specimen Description .VAGINAL SPECIMEN Direct Exam MODERATE CLUE CELLS SEEN NO TRICHOMONAS SEEN NO YEAST OBSERVED Report Status FINAL 05/08/2024 Abnormal [facility] Comment on above: Performed By: #### W P #### [address] [place] [address] Satellite Dish Repairer: Adonis Thomas MD UA w/Reflex Cultureon 2023 Bilirubin, SemiQt,Ur Negative Normal NEG [facility] Comment on above: Performed By: #### S WCGP #### [address] [phone] Satellite Dish Repairer: Perry Marte MD Blood, Urine TRACE Abnormal NEG [facility] Comment on above: Performed By: #### S WCGP #### [facility] [address] [place], [place] [id number] Satellite Dish Repairer: Perry Marte MD Clarity (U) Clear Normal CLEAR [facility] Comment on above: Performed By: #### S WCGP #### [address] [address] Satellite Dish Repairer: Perry Marte MD Color (U) Yellow Normal YEL [facility] Comment on above: Performed By: #### S WCGP #### [address] [address] Satellite Dish Repairer: Perry Marte MD Glucose Ql (U) Negative Normal NEG [facility] Comment on above: Performed By: #### S WCGP #### [address] [address] Satellite Dish Repairer: Perry Marte MD Ketones Ql (U) Negative Normal NEG [facility] Comment on above: Performed By: #### S WCGP #### [address] [address] Satellite Dish Repairer: Perry Marte MD Leukocyte esterase Test strip Ql (U) Negative Normal NEG [facility] Comment on above: Performed By: #### S WCGP #### [address] [address] Satellite Dish Repairer: Perry Marte MD Nitrite,Ur Negative Normal NEG [facility] Comment on above: Performed By: #### S WCGP #### [address] [address] Satellite Dish Repairer: Perry Marte MD PH,Ur 6.0 Normal 5.0-9.0 [facility] Comment on above: Performed By: #### S WCGP #### [address] [address] Satellite Dish Repairer: Perry Marte MD Protein Ql (U) Negative Normal NEG [facility] Comment on above: Performed By: #### S WCGP #### [address] [place] [address] Satellite Dish Repairer: Perry Marte MD Spec. [place],Ur >1.030 High 1.010-1.020 [facility] Comment on above: Performed By: #### S WCGP #### [facility] [address] [place] [address] Satellite Dish Repairer: Perry Marte MD Urobilinogen,Ur Normal Normal 0.0-1.[address] [facility] Comment on above: Performed By: #### S WCGP #### [address] [address] Satellite Dish Repairer: Perry Marte MD Urinalysis,Microon 4 Bacteria 1+ Abnormal NONE [facility] Comment on above: Performed By: #### W P #### [facility] [address] [place] [address] Dr. [place] [phone] ( Satellite Dish Repairer: Adonis Thomas MD Epithelial cells LM Ql (Urine sed) 5 TO 10 Normal 0-25 [facility] Comment on above: Performed By: #### W P #### [facility] [address] [place] [address] Dr. [place] [phone] Satellite Dish Repairer: Adonis Thomas MD Urine RBC's 0 TO 2 Normal 0-2 [facility] Comment on above: Performed By: #### W P #### [facility] [address] [place] [address] Dr. [place], [facility] Satellite Dish Repairer: Adonis Thomas MD Urine WBC's 0 TO 2 Normal 0-5 [facility] Comment on above: Performed By: #### W P #### [facility] [address] [place] [address] Satellite Dish Repairer: Adonis Thomas MD CBC with Diffon 05-04-2024 Abs. Basophil 0.06 k/uL Normal 0.00-0.20 [facility] Comment on above: Performed By: #### H CG, CDP, CP #### [address] [place], [place] [phone] Satellite Dish Repairer: Adonis Thomas MD #### TREP, HIVCMB, PHEP #### [address] [id number] Satellite Dish Repairer: Perry Marte MD Abs.Imm.Granulocyt e <0.03 Normal 0.00-0.30 [facility] Comment on above: Performed By: #### H CG, CDP, CP #### [address] [place] [phone] [employer]ellite Dish Repairer: Adonis Thomas MD #### TREP, HIVCMB, PHEP #### [address] [id number] Satellite Dish Repairer: Perry Marte MD Abs.Neutrophil (Seg) 3.64 k/uL Normal 1.50-8.10 [facility] Comment on above: Performed By: #### H CG, CDP, CP #### [address] [place] [phone] Satellite Dish Repairer: Adonis Thomas MD #### TREP, HIVCMB, PHEP #### [address] [address] Satellite Dish Repairer: Perry Marte MD Basophils/100 WBC (Bld) 1 % Normal 0-2 [facility] Comment on above: Performed By: #### H CG, CDP, CP #### [address] [place], [place] [id number] [employer]ellite Dish Repairer: Adonis Thomas MD #### TREP, HIVCMB, PHEP #### [address] [phone] Satellite Dish Repairer: Perry Marte MD Eosinophils (Bld) [#/Vol] 0.11 10*3/uL Normal 0.00-0.44 [facility] Comment on above: Performed By: #### H CG, CDP, CP #### [facility] [address] [place] [address] Dr. [place] [phone] Satellite Dish Repairer: Adonis Thomas MD #### TREP, HIVCMB, PHEP #### [address] [phone] Satellite Dish Repairer: Perry Marte MD Eosinophils/100 WBC (Bld) 2 % Normal 1-4 [facility] Comment on above: Performed By: #### H CG, CDP, CP #### [address] [place] [phone] Satellite Dish Repairer: Adonis Thomas MD #### TREP, HIVCMB, PHEP #### [address] [phone] Satellite Dish Repairer: Perry Marte MD Erythrocyte distribution width (RBC) [Ratio] 12.9 % Normal 11.8-14.4 [facility] Comment on above: Performed By: #### H CG, CDP, CP #### [address] [place] [phone] Satellite Dish Repairer: Adonis Thomas MD #### TREP, HIVCMB, PHEP #### [address] [phone] Satellite Dish Repairer: Perry Marte MD Hematocrit (Bld) [Volume fraction] 34.4 % Low 36.3-47.1 [facility] Comment on above: Performed By: #### H CG, CDP, CP #### [address] [place] [address] Satellite Dish Repairer: Adonis Thomas MD #### TREP, HIVCMB, PHEP #### [address] [phone] Satellite Dish Repairer: Perry Marte MD Hemoglobin (Bld) [Mass/Vol] 11.4 g/dL Low 11.9-15.1 [facility] Comment on above: Performed By: #### H JOSÉ ROWLAND, CP #### [address] [place], [place] [id number] [employer] Dish Repairer: Adonis Thomas MD #### TREP, HIVCMB, PHEP #### [address] [phone] Satellite Dish Repairer: Perry Marte MD Immature granulocytes/100 WBC (Bld) 0 % Normal 0 [facility] Comment on above: Performed By: #### H JOSÉ ROWLAND, CP #### [address] [place] [phone] Satellite Dish Repairer: Adonis Thomas MD #### TREP, HIVCMB, PHEP #### [address] [address] Satellite Dish Repairer: Perry Marte MD Lymphocytes (Bld) [#/Vol] 1.91 10*3/uL Normal 1.10-3.70 [facility] Comment on above: Performed By: #### H JOSÉ ROWLAND, CP #### [address] [place] [phone] [employer] D[employer] Repairer: Adonis Thomas MD #### TREJaswant, HIVCMB, PHEP #### [address] [address] Satellite Dish Repairer: Perry Marte MD Lymphocytes/100 WBC (Bld) 30 % Normal 24-43 [facility] Comment on above: Performed By: #### H KASHIF CDP, CP #### [address] [place] [phone] [employer] D[employer] Repairer: Adonis Thomas MD #### TREP, HIVCMB, PHEP #### [address] [phone] Satellite Dish Repairer: Perry Marte MD MCH (RBC) [Entitic mass] 29.4 pg Normal 25.2-33.5 [facility] Comment on above: Performed By: #### H CG, CDP, CP #### [address] [place] [address] Satellite Dish Repairer: Adonis Thomas MD #### TREP, HIVCMB, PHEP #### [address] [phone] Satellite Dish Repairer: Perry Marte MD MCHC (RBC) [Mass/Vol] 33.1 g/dL Normal 28.4-34.8 [facility] Comment on above: Performed By: #### H KASHIF, CDP, CP #### [address] [place] [phone] Satellite Dish Repairer: Adonis Thomas MD #### TREJaswant, HIVCMB, PHEP #### [address] [phone] Satellite Dish Repairer: Perry Marte MD MCV (RBC) [Entitic vol] 88.7 fL Normal 82.6-102.9 [facility] Comment on above: Performed By: #### H KASHIF, CDP, CP #### [address] [place] [address] Satellite Dish Repairer: Adonis Thomas MD #### TREP, HIVCMB, PHEP #### [place] [place], [place] 3912308 Satellite Dish Repairer: Perry Marte MD Monocytes (Bld) [#/Vol] 0.55 10*3/uL Normal 0.10-1.20 [facility] Comment on above: Performed By: #### H CG, CDP, CP #### [address] [place] [address] Satellite Dish Repairer: Adonis Thomas MD #### TREP, HIVCMB, PHEP #### [address] [place], [place] [phone] Satellite Dish Repairer: Perry Marte MD Monocytes/100 WBC (Bld) 9 % Normal 3-12 [facility] Comment on above: Performed By: #### H CG, CDP, CP #### [facility] [address] [place], [place] [phone] Satellite Dish Repairer: Adonis Thomas MD #### TREP, HIVCMB, PHEP #### [address] [phone] Satellite Dish Repairer: Perry Marte MD Neutrophil (Seg) 58 % Normal 36-65 [facility] Comment on above: Performed By: #### H CG, CDP, CP #### [facility] [address] [place] [phone] Satellite Dish Repairer: Adonis Thomas MD #### TREP, HIVCMB, PHEP #### [address] [phone] Satellite Dish Repairer: Perry Marte MD NRBC Automated 0.0 per 100 WBC Normal 0.0 [facility] Comment on above: Performed By: #### H CG, CDP, CP #### [facility] [address] [place], [place] [phone] Satellite Dish Repairer: Adonis Thomas MD #### TREP, HIVCMB, PHEP #### [address] [phone] Satellite Dish Repairer: Perry Marte MD Platelet mean volume (Bld) [Entitic vol] 9.6 fL Normal 8.1-13.5 [facility] Comment on above: Performed By: #### H CG, CDP, CP #### [facility] [address] [place] [address] Satellite Dish Repairer: Adonis Thomas MD #### TREP, HIVCMB, PHEP #### [address] [place] [address] Satellite Dish Repairer: Perry Marte MD Platelets (Bld) [#/Vol] 333 10*3/uL Normal 138-453 [facility] Comment on above: Performed By: #### H CG, CDP, CP #### [address] [place] [phone] ( Satellite Dish Repairer: Adonis Thomas MD #### TREP, HIVCMB, PHEP #### [address] [address] Satellite Dish Repairer: Perry Marte MD RBC (Bld) [#/Vol] 3.88 10*6/uL Low 3.95-5.11 [facility] Comment on above: Performed By: #### H CG CDP, CP #### [address] [place] [phone] Satellite Dish Repairer: Adonis Thomas MD #### TREP, HIVCMB, PHEP #### [address] [address] Satellite Dish Repairer: Perry Marte MD WBC (Bld) [#/Vol] 6.3 10*3/uL Normal 3.5-11.3 [facility] Comment on above: Performed By: #### H CG, CDP, CP #### [address] [place] [phone] Satellite Dish Repairer: Adonis Thomas MD #### TREP, HIVCMB, PHEP #### [address] [address] Satellite Dish Repairer: Perry Marte MD Comp Metabolic Profon 2023 Albumin [Mass/Vol] 4.2 g/dL Normal 3.5-5.2 [facility] Comment on above: Performed By: #### H CG, CDP, CP #### [facility] [address] [place], [place] [phone] [employer]ellite Dish Repairer: Adonis Thomas MD #### TREP, HIVCMB, PHEP #### [address] [place], [place] [phone] Satellite Dish Repairer: Perry Marte MD Albumin/Glob Ratio 1.6 Normal 1.0-2.5 [facility] Comment on above: Performed By: #### H CG, CDP, CP #### [facility] [address] [place], [place] [phone] Satellite Dish Repairer: Adonis Thomas MD #### TREP, HIVCMB, PHEP #### [address] [phone] Satellite Dish Repairer: Perry Marte MD Alkaline Phos 77 U/L Normal 35-104 [facility] Comment on above: Performed By: #### H KASHIF, CDP, CP #### [facility] [address] [place], [place] [phone] [employer]ellite Dish Repairer: Adonis Thomas MD #### TREP, HIVCMB, PHEP #### [address] [phone] Satellite Dish Repairer: Perry Marte MD ALT [Catalytic activity/Vol] 16 U/L Normal 5-33 [facility] Comment on above: Performed By: #### H CG, CDP, CP #### [facility] [address] [place], [place] 5183483 Satellite Dish Repairer: Adonis Thomas MD #### TREP, HIVCMB, PHEP #### [address] [address] Satellite Dish Repairer: Perry Marte MD Anion gap [Moles/Vol] 8 mmol/L Low 9-17 [facility] Comment on above: Performed By: #### H CG, CDP, CP #### [facility] [address] [place], [place] 9840183 Satellite Dish Repairer: Adonis Thomas MD #### TREP, HIVCMB, PHEP #### [address] [phone] Satellite Dish Repairer: Perry Marte MD AST [Catalytic activity/Vol] 13 U/L Normal <32 [facility] Comment on above: Performed By: #### H CG, CDP, CP #### [facility] [address] [place], [place] 5858083 Satellite Dish Repairer: Adonis Thomas MD #### TREP, HIVCMB, PHEP #### [address] [phone] Satellite Dish Repairer: Perry Marte MD Bilirubin [Mass/Vol] 0.4 mg/dL Normal 0.3-1.2 [facility] Comment on above: Performed By: #### H CG, CDP, CP #### [facility] [address] [place], [place] 5884483 Satellite Dish Repairer: Adonis Thomas MD #### TREP, HIVCMB, PHEP #### [address] [phone] Satellite Dish Repairer: Perry Marte MD BUN/CRE Ratio 27 High 9-20 [facility] Comment on above: Performed By: #### H CG, CDP, CP #### [facility] [address] [place], [place] 3121483 Satellite Dish Repairer: Adonis Thomas MD #### TREP, HIVCMB, PHEP #### [address] [address] Satellite Dish Repairer: Perry Marte MD Calcium [Mass/Vol] 9.0 mg/dL Normal 8.6-10.4 [facility] Comment on above: Performed By: #### H CG, CDP, CP #### [facility] [address] [place], [place] [phone] Satellite Dish Repairer: Adonis Thomas MD #### TREP, HIVCMB, PHEP #### [address] [place], [place] 6404308 Satellite Dish Repairer: Perry Marte MD Chloride [Moles/Vol] 104 mmol/L Normal 98-107 [facility] Comment on above: Performed By: #### H CG, CDP, CP #### [facility] [address] [place], [place] 9607983 Satellite Dish Repairer: Adonis Thomas MD #### TREP, HIVCMB, PHEP #### [address] [place], [place] 7544508 Satellite Dish Repairer: Perry Marte MD CO2 [Moles/Vol] 29 mmol/L Normal 20-[address] [facility] Comment on above: Performed By: #### H CG, CDP, CP #### [facility] [address] [place], [place] 3653583 [employer]ellite Dish Repairer: Adonis Thomas MD #### TREP, HIVCMB, PHEP #### [address] [phone] [employer]ellite D[employer] Repairer: Perry Marte MD Creatinine [Mass/Vol] 0.7 mg/dL Normal 0.5-0.9 [facility] Comment on above: Performed By: #### H CG, CDP, CP #### [facility] [address] [place] [address] Satellite Dish Repairer: Adonis Thomas MD #### TREP, HIVCMB, PHEP #### [address] [place], [place] 1372408 [employer]ellite D[employer] Repairer: Perry Marte MD GFR/1.73 sq M.predicted among non-blacks MDRD (S/P/Bld) [Vol rate/Area] mL/min/{1.73_m2} Normal >60 [facility] Comment on above: Result Comment: These results [...] By: #### H CG, CDP, CP #### [address] [place] [address] Satellite Dish Repairer: Adonis Thomas MD #### TREP, HIVCMB, PHEP #### [address] [phone] Sat[employer] Dish Repairer: Perry Marte MD Glucose [Mass/Vol] 92 mg/dL Normal 70-99 [facility] Comment on above: Performed By: #### H CG, CDP, CP #### [address] [place] [address] [employer]ellite Dish Repairer: Adonis Thomas MD #### TREP, HIVCMB, PHEP #### [address] [phone] Satellite Dish Repairer: Perry Marte MD Potassium [Moles/Vol] 3.4 mmol/L Low 3.7-5.3 [facility] Comment on above: Performed By: #### H CG, CDP, CP #### [facility] [address] [place] [address] [place] [address] [employer]ellite Dish Repairer: Adonis Thomas MD #### TREP, HIVCMB, PHEP #### [address] [phone] [employer]ish Repairer: Perry Marte MD Protein [Mass/Vol] 6.9 g/dL Normal 6.4-8.3 [facility] Comment on above: Performed By: #### H CG, CDP, CP #### [facility] [address] [place], [place] 2334283 [employer]ellite D[employer] Repairer: Adonis Thomas MD #### TREP, HIVCMB, PHEP #### [facility] [address] [place], [place] [phone] Satellite Dish Repairer: Perry Marte MD Sodium [Moles/Vol] 141 mmol/L Normal 135-144 [facility] Comment on above: Performed By: #### H CG, CDP, CP #### [facility] [address] [place], [place] 0586483 [employer] D[employer] Repairer: Adonis Thomas MD #### TREP, HIVCMB, PHEP #### [address] [place], [place] 7569908 [employer]ellite Dish Repairer: Perry Marte MD Urea nitrogen [Mass/Vol] 19 mg/dL Normal 6-20 [facility] Comment on above: Performed By: #### H KASHIF, CDP, CP #### [facility] [address] [place], [place] 7079583 [employer] D[employer] Repairer: Adonis Thomas MD #### TREP, HIVCMB, PHEP #### [address] [place], [place] 1698108 [employer]ellite Dish Repairer: Perry Marte MD HCG Screen, Bloodon 05-04-20 24 HCG Screen, Blood Negative Normal NEG [facility] Comment on above: Result Comment: Spec imens with hCG levels near the threshold of the test (25 mIU/mL) may give a negative or indeterminate result. In such cases, another test should be performed with a new specimen in 48-72 hours. If early is suspected clinically in this setting, correlation with quantitative serum b-hCG level is suggested. [facility] has confirmed the use of plasma for this test. This has not been cleared or approved by the U.[place]. Food and Drug Administration. The FDA has determined that such clearance is not necessary. Performed By: #### H CG, CDP, CP #### [address] [place] [address] [employer] D[employer] Repairer: Adonis Thomas MD #### TREP, HIVCMB, PHEP #### [address] [address] [employer]ellite Dish Repairer: Perry Marte MD HIV Ag/Abon 05-04-2024 HIV Ag/Ab Non-Reactive Normal [facility] Comment on above: Result Comment: No l aboratory evidence of HIV infection. If acute HIV infection is suspected, consider testing for HIV-1 RNA. Performed By: #### H JOSÉ ROWLAND, CP #### [address] [place], [place] [phone] [employer] Repairer: Adonis Thomas MD #### TREP, HIVCMB, PHEP #### [address] [address] [employer]ellite Dish Repairer: Perry Marte MD Hepatitis [facility] 05-04 Hep A Ab,IgM Non-Reactive Normal [facility] Comment on above: Performed By: #### JOSÉ NAVARRETE, CP #### [address] [place] [address] [employer] D[employer] Repairer: Adonis Thomas MD #### TREP, HIVCMB, PHEP #### [address] [address] [employer]ellite D[employer] Repairer: Perry Marte MD Hep B Core Ab,IgM Non-Reactive Normal [facility] Comment on above: Performed By: #### H KASHIF CDP, CP #### [address] [place], [place] 1434783 [employer] D[employer] Repairer: Adonis Thomas MD #### TREP, HIVCMB, PHEP #### [address] [address] Satellite Dish Repairer: Perry Marte MD Hep B Surf Ag Non-Reactive Normal [facility] Comment on above: Performed By: #### H JOSÉ ROWLAND, CP #### [address] [place], [place] 8944783 [employer] D[employer] Repairer: Adonis Thomas MD #### TREP, HIVCMB, PHEP #### [address] [place], [place] 0304308 [employer]ellite Dish Repairer: Perry Marte MD Hep C Ab Non-Reactive Normal [facility] Comment on above: Result Comment: The hepatitis [...] By: #### H JOSÉ ROWLAND, CP #### [address] [place] [phone] [employer] D[employer] Repairer: Adonis Thomas MD #### TREP, HIVCMB, PHEP #### [address] [phone] [employer] Repairer: Perry Marte MD T.pallidum Ab Screenon 05-043 T.pallidum Ab Screen Non-Reactive Normal [facility] Comment on above: Result Comment: T. pallidum antibodies are not detected. There is no serological evidence of infection with T. pallidum (early primary syphilis cannot be excluded). Retest in 2-4 weeks if syphilis is clinically suspect. Performed By: #### S WCGP #### [address] [id number] [employer] Repairer: Perry Marte MD UA w/Reflex Cultureon 2023 Bilirubin, SemiQt,Ur Negative Normal NEG [facility] Comment on above: Performed By: #### U MICAO, UAX #### [facility] [address] [place] [address] [place] [address] Satellite Dish Repairer: Adonis Thomas MD Blood, Urine 2+ Abnormal NEG [facility] Comment on above: Performed By: #### U MICAO, UAX #### [facility] [address] [place] [address] [employer]ellite Dish Repairer: Adonis Thomas MD Clarity (U) Clear Normal CLEAR [facility] Comment on above: Performed By: #### U MICAO, UAX #### [facility] [address] [place] [address] [employer]ellite Dish Repairer: Adonis Thomas MD Color (U) Yellow Normal YEL [facility] Comment on above: Performed By: #### U MICAO, UAX #### [facility] [address] [place] [address] [place] [address] [employer]ellite Dish Repairer: Adonis Thomas MD Glucose Ql (U) Negative Normal NEG [facility] Comment on above: Performed By: #### U MICAO, UAX #### [facility] [address] [place] [address] Dr[place], [place] [phone] [employer] Repairer: Adonis Thomas MD Ketones Ql (U) Negative Normal NEG [facility] in [facility] Comment on above: Performed By: #### U MICAO, UAX #### [facility] [address] [place] [address] Satellite Dish Repairer: Adonis Thomas MD Leukocyte esterase Test strip Ql (U) Negative Normal NEG [facility] Comment on above: Performed By: #### U MICAO, UAX #### [facility] [address] [place] [address] Satellite Dish Repairer: Adonis Thomas MD Nitrite,Ur Negative Normal NEG [facility] Comment on above: Performed By: #### U MICAO, UAX #### [facility] [address] [place] [address] Satellite Dish Repairer: Adonis Thomas MD PH,Ur 6.0 Normal 5.0-9.0 [facility] Comment on above: Performed By: #### U MICAO, UAX #### [facility] [address] [place] [address] [place], [place] [id number] Satellite Dish Repairer: Adonis Thomas MD Protein Ql (U) Negative Normal NEG [facility] Comment on above: Performed By: #### U MICAO, UAX #### [facility] [address] [place], [place] [id number] Satellite Dish Repairer: Adonis Thomas MD Spec. [place],Ur >1.030 High 1.010-1.020 [facility] Comment on above: Performed By: #### U MICAO, UAX #### [address] [place], [facility] Satellite Dish Repairer: Adonis Thomas MD Urobilinogen,Ur Normal Normal 0.0-1.[address] [facility] Comment on above: Performed By: #### U WALDEMARO, UAX #### [address] [place], [place] [address] Satellite Dish Repairer: Adonis Thomas MD Urinalysis,Microon 4 Bacteria 1+ Abnormal NONE [facility] Comment on above: Performed By: #### U MICAO, UAX #### [address] [place], [facility] Satellite Dish Repairer: Adonis Thomas MD Epithelial cells LM Ql (Urine sed) 10 TO 20 Normal 0-25 [facility] Comment on above: Performed By: #### U MICAO, UAX #### [address] [place] [address] Satellite Dish Repairer: Adonis Thomas MD Urine RBC's 2 TO 5 Normal 0-2 [facility] Comment on above: Performed By: #### U MICAO, UAX #### [facility] [address] [place] [address] Satellite Dish Repairer: Adonis Thomas MD Urine WBC's 0 TO 2 Normal 0-5 [facility] Comment on above: Performed By: #### U MICAO, UAX #### [facility] [address] [place], [place] [id number] Satellite Dish Repairer: Adonis Thomas MD C. trachomatis and N. gonorr hoeae DNA JOSE R+probe Nom (Unsp spec)on 02-21-2024 C. trachomatis rRNA JOSE R+probe Ql (Unsp spec) Negative Normal Negative [facility] Comment on above: Order Comment: The A [...] By: #### 3 6903-3 #### RONAL Gerber ([id number]) [facility] ([facility]) [address] [place] [address] N. gonorrhoeae DNA Probe+sig amp Ql (Unsp spec) Negative Normal Negative [facility] Comment on above: Order Comment: The A [...] By: #### 3 6903-3 #### RONAL Gerber ([id number]) [facility] ([facility]) [address] [place] [address] Trichomonas vaginalis rRNAon 02-21-2024 T. vaginalis rRNA JOSE R+probe Ql (Unsp spec) Positive Abnormal Negative, Invalid, TRICH neg [facility] Comment on above: Order Comment: The A PTIMA Trichomonas vaginalis assay is FDA-approved for testing on female endocervical swabs, vaginal swabs, and ThinPrep liquid pap samples. Performance characteristics for Trichomonas vaginalis on specific [id number] sample types (female and male urine and male urethral swabs) have been validated by [facility]. This laboratory is certified by CLIA to perform high complexity testing. Samples from all other sites are not validated for this method. Result Comment: Perf ormance characteristics for Trichomonas Vaginalis testing on urine samples has been validated by [facility]. Testing on this sample type is not FDA-approved, but such approval is not necessary. This laboratory is certified by CLIA to perform high complexity testing. Performed By: #### 4 6154-1 #### RONAL Gerber ([id number]) [facility] ([facility]) [address] [place] [address] Alcoholon 05-29-2023 Blood Alcohol Concentration Not indicated Normal [facility] Comment on above: Performed By: #### A LCOH #### [facility] [address] [place] [address] Ethanol [Mass/Vol] mg/dL Normal [facility] Comment on above: Performed By: #### A LCOH #### [facility] [address] [place] [address] Comprehensive Metabolic Pane adriano 05-29-2023 Albumin [Mass/Vol] 5.2 g/dL Critically high 3.5-4.6 M [facility] Comment on above: Performed By: #### C MP #### [facility] [address] [place] [address] ALP [Catalytic activity/Vol] 64 U/L Normal 40-130 [facility] Comment on above: Performed By: #### C MP #### [facility] [address] [place] [address] ALT [Catalytic activity/Vol] 17 U/L Normal 0-33 [facility] Comment on above: Performed By: #### C MP #### [facility] [address] [place] [address] Anion gap [Moles/Vol] 19 mmol/L Critically high 9-15 [facility] Comment on above: Performed By: #### C MP #### [facility] [address] [place] [address] AST [Catalytic activity/Vol] 22 U/L Normal 0-35 [facility] Comment on above: Performed By: #### C MP #### [facility] [address] [place] [address] Bilirubin [Mass/Vol] 0.8 mg/dL Critically high 0.2-0.7 [facility] Comment on above: Performed By: #### C MP #### [facility] [address] [place] [address] Calcium [Mass/Vol] 10.2 mg/dL Critically high 8.5-9.9 [facility] Comment on above: Performed By: #### C MP #### [facility] [address] [place] [address] Chloride [Moles/Vol] 99 mmol/L Normal 95-107 [facility] Comment on above: Performed By: #### C MP #### [facility] [address] [place] [address] CO2 [Moles/Vol] 22 mmol/L Normal 20-31 [facility] Comment on above: Performed By: #### C MP #### [facility] [address] [place] [address] Creatinine [Mass/Vol] 0.60 mg/dL Normal 0.50-0.90 [facility] Comment on above: Performed By: #### C MP #### [facility] [address] [place] [address] GFR >60.0 Normal >60 [facility] Comment on above: Result Comment: Pedi atric [...] secretion. Performed By: #### C MP #### [facility] [address] [place] [address] Globulin (S) [Mass/Vol] 2.6 g/dL Normal 2.3-3.5 [facility] Comment on above: Performed By: #### C MP #### [facility] [address] [place] [address] Glucose [Mass/Vol] 102 mg/dL Critically high 70-99 M [facility] Comment on above: Performed By: #### C MP #### [facility] [address] [place] [address] Potassium [Moles/Vol] 3.9 mmol/L Normal 3.4-4.9 [facility] Comment on above: Performed By: #### C MP #### [facility] [address] [place] [address] Protein [Mass/Vol] 7.8 g/dL Normal 6.3-8.0 [facility] Comment on above: Performed By: #### C MP #### [facility] [address] [place] [address] Sodium [Moles/Vol] 140 mmol/L Normal 135-144 [facility] Comment on above: Performed By: #### C MP #### [facility] [address] [place] [address] Urea nitrogen [Mass/Vol] 9 mg/dL Normal 6-20 [facility] Comment on above: Performed By: #### C MP #### [facility] [address] [place] [address] UR Drugs of Abuse Panelon Drug Screen Comment see below Normal [facility] Comment on above: Result Comment: This method is a screening test to detect only these drug classes as part of a medical workup. Confirmatory testing by another method should be ordered if clinically indicated. Performed By: #### U DRGS #### [facility] [address] [place] [address] UR Amphetamines Screen Negative Normal Negative < [facility] Comment on above: Performed By: #### U DRGS #### [facility] [address] [place] [address] UR Barbiturates Screen Negative Normal Negative < [facility] Comment on above: Performed By: #### U DRGS #### [facility] [address] [place] [address] UR Benzo Screen Negative Normal Negative < [facility] Comment on above: Performed By: #### U DRGS #### [facility] [address] [place] [address] UR Cannabinoids Screen Negative Normal Negative < [facility] Comment on above: Performed By: #### U DRGS #### [facility] [address] [place] [address] UR Cocaine Screen Positive Abnormal Negative < [facility] Comment on above: Performed By: #### U DRGS #### [facility] [address] [place] [address] UR Fentanyl Screen Negative Normal Negative < [facility] Comment on above: Performed By: #### U DRGS #### [facility] [address] [place] [address] UR Methadone Screen Negative Normal Negative < [facility] Comment on above: Performed By: #### U DRGS #### [facility] [address] [place] [address] UR Opiates Screen Negative Normal Negative < [facility] Comment on above: Performed By: #### U DRGS #### [facility] [address] [place] [address] UR Oxycodone Screen Negative Normal Negative < [facility] Comment on above: Performed By: #### U DRGS #### [facility] [address] [place] [address] UR PCP Screen Negative Normal Negative < [facility] Comment on above: Performed By: #### U DRGS #### [facility] [address] [place] [address] UR Propoxyphene Screen Negative Normal Negative < [facility] Comment on above: Performed By: #### U DRGS #### [facility] [address] [place] [address] Urinalysis, reflex to micros copicon 05-29-2023 Bilirubin Ql (U) Negative Normal Negative [facility] Comment on above: Performed By: #### U A #### [facility] [address] [place] [address] Clarity (U) Clear Normal Clear [facility] Comment on above: Performed By: #### U A #### [facility] [address] [place] [address] Color (U) Yellow Normal Straw/Metcalfe [facility] Comment on above: Performed By: #### U A #### [facility] [address] [place] [address] Glucose Ql (U) Negative Normal Negative [facility] Comment on above: Performed By: #### U A #### [facility] [address] [place] [address] Hemoglobin Ql (U) Negative Normal Negative [facility] Comment on above: Performed By: #### U A #### [facility] [address] [place] [address] Ketones Ql (U) 15 mg/dL Abnormal Negative [facility] Comment on above: Performed By: #### U A #### [facility] [address] [place] [address] Leukocyte esterase Test strip Ql (U) TRACE Abnormal Negative [facility] Comment on above: Performed By: #### U A #### [facility] [address] [place] [address] Nitrite Ql (U) Negative Normal Negative [facility] Comment on above: Performed By: #### U A #### [facility] [address] [place] [address] pH (U) 7.5 [pH] Normal 5.0-9.0 [facility] Comment on above: Performed By: #### U A #### [facility] [address] [place] [address] Protein Ql (U) Negative Normal Negative [facility] Comment on above: Performed By: #### U A #### [facility] [address] [place] [address] Specific gravity (U) [Rel density] 1.008 Normal 1.005-1.03 [facility] Comment on above: Performed By: #### U A #### [facility] [address] [place] [address] Urobilinogen Qn (U) 0.2 {Vielka'U}/dL Normal < 2.0 [facility] Comment on above: Performed By: #### U A #### [facility] [address] [place] [address] Urine Microscopicon 05-29-20 23 Urine Bacteria MANY Abnormal Negative [facility] Comment on above: Performed By: #### A LCOH #### [facility] [address] [place] [address] Urine Epithelial Cells Auto 0-2 Normal 0-5 [facility] Comment on above: Performed By: #### A LCOH #### [facility] [address] [place] [address] Urine Hyaline Casts Auto 3-5 Normal 0-5 [facility] Comment on above: Performed By: #### A LCOH #### [facility] [address] [place] [address] Urine RBC Auto 0-2 Normal 0-5 [facility] Comment on above: Performed By: #### A LCOH #### [facility] [address] [place] [address] Urine WBC Auto 10-20 Abnormal 0-5 [facility] Comment on above: Performed By: #### A LCOH #### 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 Vitals Vital Signs Recorded: 09Jan2023 04:18PM [id number], LUE, Sitting Cwkzsmehf19, LUE, Sitting Height5 ft 6 in Gztzfu255 lb 6 oz BMI Plxnnqeilh72.59 kg/m2 BSA Calculated1.78 Tobacco Useb) No PHQ-2 #1. Over the last 2 weeks have you felt down, depressed or hopeless? (If yes, answer PHQ-9 below)No PHQ-2 #2. Over the last 2 weeks have you felt little interest or pleasure in doing things? (If yes, answer PHQ-9 below)No Falls Screening (Age 18+)a) No falls within the last year [id number] Signatures Electronically signed by : Cally Meyer MD; Jan 10 2023 9:46AM EST (Author) Normal [employer] Tobacco Screening.on 023 Adult depression screening assessment No [facility] [employer] Work Phone: Fall risk assessment a) No falls within the last year [facility] Work Phone: Last menstrual period start date 22Dec2022 [facility] Work Phone: Tobacco use status CP b) No [facility] Work Phone: Established Visit (Orthopaed ic Surgery)on [...] grammatical areas may persist related to the [employer] software Chacorta Erwin MD Office: . Active [...] use (V49.89) (more content not included)... Normal [facility] Provider Note - ED v3on 11-04 Provider [...] SIGNS: T PRBP SpO2O2(LPM) %FiO2 Method 21-Nov-2022 01:56:[id number] 100 room air, no respiratory support MDM [...] N (more content not included)... Normal [facility] ([place], [place]) Triage - EDon 11-21-2022 Triage - ED [...] obeys commands Best Verbal Response: (V5) oriented [place] Score: 15 Cough lasting greater than 3 [...] Updated: 21-Nov-2022 02:18 by Kashif Hammond (NIHARIKA) [facility] Provider Note - ED v3on 11-04 Provider [...] SIGNS: T PRBP SpO2O2(LPM) %FiO2 Method 20-Nov-2022 13:51:[id number]/62 97 room air, no respiratory support MDM [...] ill patient: no Electronic Signatures: Elinor Sagastume (TOOLMAKER-RN OTOLARYNGOLOGY) (Signed 30-Nov-2022 06:11) Authored: ED Notes, HPI, PMH, Results/Vital Signs, MDM/ED Course, Clinical Impression, Attestation, Chart Review, Scores Last Updated: 30-Nov-2022 06:11 by Elinor Sagastume (TOOLMAKER-RN OTOLARYNGOLOGY) References: 1. Data Referenced From Triage - ED 20-Nov-2022 13:[address] 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 [place]) Alcoholon 10-08-2022 Blood Alcohol Concentration Not indicated Normal [facility] Comment on above: Performed By: #### A LCOH #### [facility] [address] [place] [address] Ethanol [Mass/Vol] mg/dL Normal [facility] Comment on above: Performed By: #### A LCOH #### [facility] [address] [place] [address] CBC With Platelet and Differ entialon 10-08-2022 Basophils (Bld) [#/Vol] 0.0 10*3/uL Normal 0.0-0.2 [facility] Comment on above: Performed By: #### C BCWD #### [facility] [address] [place] [address] Basophils/100 WBC (Bld) 0.5 % Normal [facility] Comment on above: Performed By: #### C BCWD #### [facility] [address] [place] [address] Eosinophils (Bld) [#/Vol] 0.0 10*3/uL Normal 0.0-0.7 [facility] Comment on above: Performed By: #### C BCWD #### [facility] [address] [place] [address] Eosinophils/100 WBC (Bld) 0.5 % Normal [facility] Comment on above: Performed By: #### C BCWD #### [facility] [address] [place] [address] Erythrocyte distribution width (RBC) [Ratio] 13.8 % Normal 11.5-14.5 [facility] Comment on above: Performed By: #### C BCWD #### [facility] [address] [place] [address] Hematocrit (Bld) [Volume fraction] 39.4 % Normal 37.0-47.0 [facility] Comment on above: Performed By: #### C BCWD #### [facility] [address] [place] [address] Hemoglobin (Bld) [Mass/Vol] 13.2 g/dL Normal 12.0-16.0 [facility] Comment on above: Performed By: #### C BCWD #### [facility] [address] [place] [address] Lymphocytes (Bld) [#/Vol] 1.4 10*3/uL Normal 1.0-4.8 [facility] Comment on above: Performed By: #### C BCWD #### [facility] [address] [place] [address] Lymphocytes/100 WBC (Bld) 19.2 % Normal [facility] Comment on above: Performed By: #### C BCWD #### [facility] [address] [place] [address] MCH (RBC) [Entitic mass] 29.2 pg Normal 27.0-31.3 [facility] Comment on above: Performed By: #### C BCWD #### [facility] [address] [place] [address] MCHC 33.6 % Normal 33.0-37.0 [facility] Comment on above: Performed By: #### C BCWD #### [facility] [address] [place] [address] MCV (RBC) [Entitic vol] 87.1 fL Normal 79.4-94.8 [facility] Comment on above: Performed By: #### C BCWD #### [facility] [address] [place] [address] Monocytes (Bld) [#/Vol] 0.8 10*3/uL Normal 0.2-0.8 [facility] Comment on above: Performed By: #### C BCWD #### [facility] [address] [place] [address] Monocytes/100 WBC (Bld) 10.8 % Normal [facility] Comment on above: Performed By: #### C BCWD #### [facility] [address] [place] [address] Neutrophils (Bld) [#/Vol] 5.0 10*3/uL Normal 1.4-6.5 [facility] Comment on above: Performed By: #### C BCWD #### [facility] [address] [place] [address] Neutrophils/100 WBC (Bld) 69.0 % Normal [facility] Comment on above: Performed By: #### C BCWD #### [facility] [address] [place] [address] Platelets (Bld) [#/Vol] 291 10*3/uL Normal 130-400 [facility] Comment on above: Performed By: #### C BCWD #### [facility] [address] [place] [address] RBC (Bld) [#/Vol] 4.53 10*6/uL Normal 4.20-5.40 [facility] Comment on above: Performed By: #### C BCWD #### [facility] [address] [place] [address] WBC (Bld) [#/Vol] 7.2 10*3/uL Normal 4.8-10.8 [facility] Comment on above: Performed By: #### C BCWD #### [facility] [address] [place] [address] Comprehensive Metabolic Pane adriano 10-08-2022 Albumin [Mass/Vol] 5.0 g/dL Critically high 3.5-4.6 M [facility] Comment on above: Order Comment: CALL [facility] tel. [phone], Chemistry, POTASSIUM results called to and read back by IRA PECK, 10/08/2022 10:40, by JOSÉ MIGUEL Performed By: #### C MP #### [facility] [address] [place] [address] ALP [Catalytic activity/Vol] 72 U/L Normal 40-130 [facility] Comment on above: Order Comment: CALL [facility] tel. [phone], Chemistry, POTASSIUM results called to and read back by IRA PECK, 10/08/2022 10:40, by JOSÉ MIGUEL Performed By: #### C MP #### [facility] [address] [place] [address] ALT [Catalytic activity/Vol] 18 U/L Normal 0-33 [facility] Comment on above: Order Comment: CALL [facility] tel. [phone], Chemistry, POTASSIUM results called to and read back by IRA PECK, 10/08/2022 10:40, by JOSÉ MIGUEL Performed By: #### C MP #### [facility] [address] [place] [address] Anion gap [Moles/Vol] 17 mmol/L Critically high 9-15 [facility] Comment on above: Order Comment: CALL [facility] tel. [phone], Chemistry, POTASSIUM results called to and read back by IRA PECK, 10/08/2022 10:40, by JOSÉ MIGUEL Performed By: #### C MP #### [facility] [address] [place] [address] AST [Catalytic activity/Vol] 20 U/L Normal 0-35 [facility] Comment on above: Order Comment: CALL [facility] tel. [phone], Chemistry, POTASSIUM results called to and read back by IRA PECK, 10/08/2022 10:40, by JOSÉ MIGUEL Performed By: #### C MP #### [facility] [address] [place] [address] Bilirubin [Mass/Vol] 2.0 mg/dL Critically high 0.2-0.7 [facility] Comment on above: Order Comment: CALL [facility] tel. [phone], Chemistry, POTASSIUM results called to and read back by IRA PECK, 10/08/2022 10:40, by JOSÉ MIGUEL Performed By: #### C MP #### [facility] [address] [place] [address] Calcium [Mass/Vol] 10.1 mg/dL Critically high 8.5-9.9 [facility] Comment on above: Order Comment: CALL [facility] tel. [phone], Chemistry, POTASSIUM results called to and read back by IRA PECK, 10/08/2022 10:40, by JOSÉ MIGUEL Performed By: #### C MP #### [facility] [address] [place] [address] Chloride [Moles/Vol] 101 mmol/L Normal 95-107 [facility] Comment on above: Order Comment: CALL [facility] tel. [phone], Chemistry, POTASSIUM results called to and read back by IRA PECK, 10/08/2022 10:40, by JOSÉ MIGUEL Performed By: #### C MP #### [facility] [address] [place] [address] CO2 [Moles/Vol] 22 mmol/L Normal 20-31 [facility] Comment on above: Order Comment: CALL [facility] tel. [phone], Chemistry, POTASSIUM results called to and read back by IRA PECK, 10/08/2022 10:40, by JOSÉ MIGUEL Performed By: #### C MP #### [facility] [address] [place] [address] Creatinine [Mass/Vol] 0.63 mg/dL Normal 0.50-0.90 [facility] Comment on above: Order Comment: CALL [facility] tel. [phone], Chemistry, POTASSIUM results called to and read back by IRA PECK, 10/08/2022 10:40, by JOSÉ MIGUEL Performed By: #### C MP #### [facility] [address] [place] [address] GFR >60.0 Normal >60 [facility] Comment on above: Order Comment: CALL [facility] tel. [phone], Chemistry, POTASSIUM results called to and read [...] secretion. Performed By: #### C MP #### [facility] [address] [place] [address] Globulin (S) [Mass/Vol] 3.0 g/dL Normal 2.3-3.5 [facility] Comment on above: Order Comment: CALL [facility] tel. [phone], Chemistry, POTASSIUM results called to and read back by IRA PECK, 10/08/2022 10:40, by JOSÉ MIGUEL Performed By: #### C MP #### [facility] [address] [place] [address] Glucose [Mass/Vol] 111 mg/dL Critically high 70-99 M [facility] Comment on above: Order Comment: CALL [facility] tel. [phone], Chemistry, POTASSIUM results called to and read back by IRA PECK, 10/08/2022 10:40, by JOSÉ MIGUEL Performed By: #### C MP #### [facility] [address] [place] [address] Potassium [Moles/Vol] 3.0 mmol/L Critically low 3.4-4.9 [facility] Comment on above: Order Comment: CALL [facility] tel. [phone], Chemistry, POTASSIUM results called to and read back by IRA PECK, 10/08/2022 10:40, by JOSÉ MIGUEL Performed By: #### C MP #### [facility] [address] [place] [address] Protein [Mass/Vol] 8.0 g/dL Normal 6.3-8.0 [facility] Comment on above: Order Comment: CALL [facility] tel. [phone], Chemistry, POTASSIUM results called to and read back by IRA PECK, 10/08/2022 10:40, by JOSÉ MIGUEL Performed By: #### C MP #### [facility] [address] [place] [address] Sodium [Moles/Vol] 140 mmol/L Normal 135-144 [facility] Comment on above: Order Comment: CALL [facility] tel. [phone], Chemistry, POTASSIUM results called to and read back by IRA PECK, 10/08/2022 10:40, by JOSÉ MIGUEL Performed By: #### C MP #### [facility] [address] [place] [address] Urea nitrogen [Mass/Vol] 20 mg/dL Normal 6-20 [facility] Comment on above: Order Comment: CALL [facility] tel. [phone], Chemistry, POTASSIUM results called to and read back by IRA PECK, 10/08/2022 10:40, by JOSÉ MIGUEL Performed By: #### C MP #### [facility] [address] [place] [address] UR Drugs of Abuse Panelon Drug Screen Comment see below Normal [facility] Comment on above: Result Comment: This method is a screening test to detect only these drug classes as part of a medical workup. Confirmatory testing by another method should be ordered if clinically indicated. Performed By: #### U DRGS #### [facility] [address] [place] [address] UR Amphetamines Screen Positive Abnormal Negative < [facility] Comment on above: Performed By: #### U DRGS #### [facility] [address] [place] [address] UR Barbiturates Screen Negative Normal Negative < [facility] Comment on above: Performed By: #### U DRGS #### [facility] [address] [place] [address] UR Benzo Screen Negative Normal Negative < [facility] Comment on above: Performed By: #### U DRGS #### [facility] [address] [place] [address] UR Cannabinoids Screen Positive Abnormal Negative < [facility] Comment on above: Performed By: #### U DRGS #### [facility] [address] [place] [address] UR Cocaine Screen Positive Abnormal Negative < [facility] Comment on above: Performed By: #### U DRGS #### [facility] [address] [place] [address] UR Fentanyl Screen Negative Normal Negative < [facility] Comment on above: Performed By: #### U DRGS #### [facility] [address] [place] [address] UR Methadone Screen Negative Normal Negative < [facility] Comment on above: Performed By: #### U DRGS #### [facility] [address] [place] [address] UR Opiates Screen Negative Normal Negative < [facility] Comment on above: Performed By: #### U DRGS #### [facility] [address] [place] [address] UR Oxycodone Screen Negative Normal Negative < [facility] Comment on above: Performed By: #### U DRGS #### [facility] [address] [place] [address] UR PCP Screen Negative Normal Negative < [facility] Comment on above: Performed By: #### U DRGS #### [facility] [address] [place] [address] UR Propoxyphene Screen Negative Normal Negative < [facility] Comment on above: Performed By: #### U DRGS #### [facility] [address] [place] [address] Urinalysis, reflex to micros copicon 10-08-2022 Bilirubin Ql (U) Negative Normal Negative [facility] Comment on above: Performed By: #### U A #### [facility] [address] [place] [address] Clarity (U) CLOUDY Abnormal Clear [facility] Comment on above: Performed By: #### U A #### [facility] [address] [place] [address] Color (U) ORANGE Abnormal Straw/Metcalfe [facility] Comment on above: Performed By: #### U A #### [facility] [address] [place] [address] Glucose Ql (U) Negative Normal Negative [facility] Comment on above: Performed By: #### U A #### [facility] [address] [place] [address] Hemoglobin Ql (U) TRACE Abnormal Negative [facility] Comment on above: Performed By: #### U A #### [facility] [address] [place] [address] Ketones Ql (U) >=80 Abnormal Negative [facility] Comment on above: Performed By: #### U A #### [facility] [address] [place] [address] Leukocyte esterase Test strip Ql (U) MODERATE Abnormal Negative [facility] Comment on above: Performed By: #### U A #### [facility] [address] [place] [address] Nitrite Ql (U) Negative Normal Negative [facility] Comment on above: Performed By: #### U A #### [facility] [address] [place] [address] pH (U) 7.5 [pH] Normal 5.0-9.0 [facility] Comment on above: Performed By: #### U A #### [facility] [address] [place] [address] Protein Ql (U) 30 mg/dL Abnormal Negative [facility] Comment on above: Performed By: #### U A #### [facility] [address] [place] [address] Specific gravity (U) [Rel density] 1.030 Normal 1.005-1.03 [facility] Comment on above: Performed By: #### U A #### [facility] [address] [place] [address] Urobilinogen Qn (U) 1.0 {Vielka'U}/dL Normal < 2.0 [facility] Comment on above: Performed By: #### U A #### [facility] [address] [place] [address] Urine Microscopicon 10-08-20 22 Epithelial cells LM Ql (Urine sed) 5-10 Normal [facility] Comment on above: Performed By: #### U LINDY #### [facility] [address] [place] [address] Urine RBC 3-5 Abnormal 0-2 [facility] Comment on above: Performed By: #### U LINDY #### [facility] [address] [place] [address] Urine Bacteria RARE Abnormal Negative [facility] Comment on above: Performed By: #### U LINDY #### [facility] [address] [place] [address] Urine Epithelial Cells Auto 20-50 Normal 0-5 [facility] Comment on above: Performed By: #### U LINDY #### [facility] [address] [place] [address] Urine Hyaline Casts Auto 10-20 Normal 0-5 [facility] Comment on above: Performed By: #### U LINDY #### [facility] [address] [place] [address] Urine WBC Auto 10-20 Abnormal 0-5 [facility] Comment on above: Performed By: #### U LINDY #### [facility] [address] [place] [address] DRUG SCREEN,URINEon 09-09-20 AMPHETAMINE SCREEN,U Canceled Normal [facility] ([place], [place]) Comment on above: Order Comment: TEST DRUG SCREEN,URINE WAS CANCELLED, 09/09/2022 01:17 No specimen received/Pt discharged. Result Comment: CUTO FF LEVEL: 500 NG/ML Cross-reactivity has been reported with high concentrations of the following drugs: buproprion, chloroquine, chlorpromazine, ephedrine, mephentermine, fenfluramine, phentermine, phenylpropanolamine, pseudoephedrine, and propranolol. Performed By: #### D RUG3 #### [address] [id number] BARBITURATES SCREEN,U Canceled Normal [facility] ([place], [place]) Comment on above: Order Comment: TEST DRUG SCREEN,URINE WAS CANCELLED, 09/09/2022 01:17 No specimen received/Pt discharged. Result Comment: CUTO FF LEVEL: 200 NG/ML Performed By: #### D RUG3 #### [address] [id number] BENZODIAZEPINES SCREEN,U Canceled Normal [facility], [place]) Comment on above: Order Comment: TEST DRUG SCREEN,URINE WAS CANCELLED, 09/09/2022 01:17 No specimen received/Pt discharged. Result Comment: CUTO FF LEVEL: 200 NG/ML Performed By: #### D RUG3 #### [address] [id number] CANNABINOIDS SCREEN,U Canceled Normal [facility], [place]) Comment on above: Order Comment: TEST DRUG SCREEN,URINE WAS CANCELLED, 09/09/2022 01:17 No specimen received/Pt discharged. Result Comment: CUTO FF LEVEL: 50 NG/ML Performed By: #### D RUG3 #### [address] [id number] COCAINE METABOLITE SCREEN,U Canceled Normal [facility] [place] Comment on above: Order Comment: TEST DRUG SCREEN,URINE WAS CANCELLED, 09/09/2022 01:17 No specimen received/Pt discharged. Result Comment: CUTO FF LEVEL: 150 NG/ML Performed By: #### D RUG3 #### [address] [id number] DRUG SCREEN COMMENT Canceled Normal [facility], [place]) Comment on above: Order Comment: TEST DRUG SCREEN,URINE WAS CANCELLED, 09/09/2022 01:17 No specimen received/Pt discharged. Result Comment: Drug screen results are presumptive and should not be used to assess compliance with prescribed medication. Contact the performing [facility] laboratory to add-on definitive confirmatory testing [...] directors. Performed By: #### D RUG3 #### [address] [id number] FENTANYL SCREEN,URINE Canceled Normal [facility] [place] Comment on above: Order Comment: TEST DRUG SCREEN,URINE WAS CANCELLED, 09/09/2022 01:17 No specimen received/Pt discharged. Result Comment: CUTO FF LEVEL: 5 NG/ML Performed By: #### D RUG3 #### [address] [id number] METHADONE SCREEN,U Canceled Normal [facility] [place] Comment on above: Order Comment: TEST DRUG SCREEN,URINE WAS CANCELLED, 09/09/2022 01:17 No specimen received/Pt discharged. Result Comment: CUTO FF LEVEL: 150 NG/ML The metabolite L-rjopu-otpkiygqcbumqn (LAAM) is not detected by this method in concentrations that would be found in the urine of patients on LAAM therapy. Performed By: #### D RUG3 #### [address] [id number] OPIATES SCREEN,U Canceled Normal [facility] Comment on above: Order Comment: TEST DRUG SCREEN,URINE WAS CANCELLED, 09/09/2022 01:17 No specimen received/Pt discharged. Result Comment: CUTO FF LEVEL: 300 NG/ML The opiate screen does not detect fentanyl, meperidine, or tramadol. Oxycodone is not consistently detected (refer to Oxycodone Screen, Urine result). Performed By: #### D RUG3 #### [address] [id number] OXYCODONE SCREEN,U Canceled Normal [facility] [place] Comment on above: Order Comment: TEST DRUG SCREEN,URINE WAS CANCELLED, 09/09/2022 01:17 No specimen received/Pt discharged. Result Comment: CUTO FF LEVEL: 100 NG/ML This test will accurately detect both oxycodone and oxymorphone. Performed By: #### D RUG3 #### [address] [id number] PCP SCREEN,U Canceled Normal [facility] ([place], [place]) Comment on above: Order Comment: TEST DRUG SCREEN,URINE WAS CANCELLED, 09/09/2022 01:17 No specimen received/Pt discharged. Result Comment: CUTO FF LEVEL: 25 NG/ML Cross-reactivity has been reported with dextromethorphan. Performed By: #### D RUG3 #### [address] [id number] URINALYSISon 09-09-2022 Appearance (U) Canceled Normal [facility] ([place], [place]) Comment on above: Order Comment: TEST URINALYSIS WAS CANCELLED, 09/09/2022 01:17 No specimen received/Pt discharged. Performed By: #### U A #### [address] [id number] ASCORBIC ACID Canceled Normal [facility] ([place], [place]) Comment on above: Order Comment: TEST URINALYSIS WAS CANCELLED, 09/09/2022 01:17 No specimen received/Pt discharged. Result Comment: Conc entrations > = 20 mg/dL of ascorbic acid can be expected to cause strong interference in the reactions testing for glucose, nitrite and blood. It is recommended to discontinue Vitamin C administration and retest in 10 hours. Performed By: #### U A #### [address] [id number] Bilirubin Ql (U) Canceled Normal [facility] Comment on above: Order Comment: TEST URINALYSIS WAS CANCELLED, 09/09/2022 01:17 No specimen received/Pt discharged. Performed By: #### U A #### [address] [id number] Color (U) Canceled Normal [facility], [place]) Comment on above: Order Comment: TEST URINALYSIS WAS CANCELLED, 09/09/2022 01:17 No specimen received/Pt discharged. Performed By: #### U A #### [address] [id number] Glucose Ql (U) Canceled Normal [facility], [place]) Comment on above: Order Comment: TEST URINALYSIS WAS CANCELLED, 09/09/2022 01:17 No specimen received/Pt discharged. Performed By: #### U A #### [address] [id number] Hemoglobin Ql (U) Canceled Normal [facility] Comment on above: Order Comment: TEST URINALYSIS WAS CANCELLED, 09/09/2022 01:17 No specimen received/Pt discharged. Performed By: #### U A #### [address] [id number] Ketones Ql (U) Canceled Normal [facility] [place]) Comment on above: Order Comment: TEST URINALYSIS WAS CANCELLED, 09/09/2022 01:17 No specimen received/Pt discharged. Performed By: #### U A #### [address] [id number] Leukocyte esterase Test strip Ql (U) Canceled Normal [facility], [place]) Comment on above: Order Comment: TEST URINALYSIS WAS CANCELLED, 09/09/2022 01:17 No specimen received/Pt discharged. Performed By: #### U A #### [address] [id number] Nitrite Ql (U) Canceled Normal [facility] ([place], [place]) Comment on above: Order Comment: TEST URINALYSIS WAS CANCELLED, 09/09/2022 01:17 No specimen received/Pt discharged. Performed By: #### U A #### [address] [id number] pH Canceled Normal [facility] ([place], [place]) Comment on above: Order Comment: TEST URINALYSIS WAS CANCELLED, 09/09/2022 01:17 No specimen received/Pt discharged. Performed By: #### U A #### [address] [id number] Protein Ql (U) Canceled Normal [facility], [place]) Comment on above: Order Comment: TEST URINALYSIS WAS CANCELLED, 09/09/2022 01:17 No specimen received/Pt discharged. Performed By: #### U A #### [address] [id number] Specific gravity (U) [Rel density] Canceled Normal [facility] ([place], [place]) Comment on above: Order Comment: TEST URINALYSIS WAS CANCELLED, 09/09/2022 01:17 No specimen received/Pt discharged. Performed By: #### U A #### [address] [id number] UROBILINOGEN Canceled Normal [facility] [place]) Comment on above: Order Comment: TEST URINALYSIS WAS CANCELLED, 09/09/2022 01:17 No specimen received/Pt discharged. Performed By: #### U A #### [address] [id number] CBC AND DIFFERENTIALon 09-08 % AUTOMATED IMMATURE GRAN 0.3 % Normal 0.0 - 0.9 [facility] [place] Comment on above: Result Comment: Hazel ture Granulocyte Count (IG) includes promyelocytes, myelocytes and metamyelocytes but does not include bands. Percent differential counts (%) should be interpreted in the context of the absolute cell counts (cells/L). Performed By: #### C BCDF #### [address] [id number] Basophils (Bld) [#/Vol] 0.05 10*3/uL Normal 0.00 - 0.10 [facility] [place] Comment on above: Performed By: #### C BCDF #### [address] [id number] Basophils/100 WBC (Bld) 0.7 % Normal 0.0 - 2.0 [facility] [place] Comment on above: Performed By: #### C BCDF #### [address] [id number] Eosinophils (Bld) [#/Vol] 0.01 10*3/uL Normal 0.00 - 0.70 [facility] [place] Comment on above: Performed By: #### C BCDF #### [address] [id number] Eosinophils/100 WBC (Bld) 0.1 % Normal 0.0 - 6.0 [facility] [place] Comment on above: Performed By: #### C BCDF #### [address] [id number] Erythrocyte distribution width (RBC) [Ratio] 12.9 % Normal 11.5 - 14.5 [facility] [place] Comment on above: Performed By: #### C BCDF #### [address] [id number] Hematocrit (Bld) [Volume fraction] 34.5 % Low 36.0 - 46.0 [facility] [place]) Comment on above: Performed By: #### C BCDF #### [address] [id number] Hemoglobin (Bld) [Mass/Vol] 11.6 g/dL Low 12.0 - 16.0 [facility] [place]) Comment on above: Performed By: #### C BCDF #### [address] [id number] Lymphocytes (Bld) [#/Vol] 1.68 10*3/uL Normal 1.20 - 4.80 [facility] [place] Comment on above: Performed By: #### C BCDF #### [address] [id number] Lymphocytes/100 WBC (Bld) 23.1 % Normal 13.0 - 44.0 [facility] [place]) Comment on above: Performed By: #### C BCDF #### [address] [id number] MCHC (RBC) [Mass/Vol] 33.6 g/dL Normal 32.0 - 36.0 [facility] [place]) Comment on above: Performed By: #### C BCDF #### [address] [id number] MCV (RBC) [Entitic vol] 86 fL Normal 80 - 100 [facility] [place] Comment on above: Performed By: #### C BCDF #### [address] [id number] Monocytes (Bld) [#/Vol] 0.82 10*3/uL Normal 0.10 - 1.00 [facility] [place] Comment on above: Performed By: #### C BCDF #### [address] [id number] Monocytes/100 WBC (Bld) 11.3 % Normal 2.0 - 10.0 [facility] [place]) Comment on above: Performed By: #### C BCDF #### [address] [id number] Neutrophils (Bld) [#/Vol] 4.68 10*3/uL Normal 1.20 - 7.70 [facility] [place] Comment on above: Performed By: #### C BCDF #### [address] [id number] Neutrophils/100 WBC (Bld) 64.5 % Normal 40.0 - 80.0 [facility] [place]) Comment on above: Performed By: #### C BCDF #### [address] [id number] Platelets (Bld) [#/Vol] 267 10*3/uL Normal 150 - 450 [facility] ([place], [place]) Comment on above: Performed By: #### C BCDF #### [address] [id number] RBC 3.99 x10E12/L Low 4.00 - 5.20 [facility] ([place], [place]) Comment on above: Performed By: #### C BCDF #### [address] [id number] WBC (Bld) [#/Vol] 7.3 10*3/uL Normal 4.4 - 11.3 [facility] [place] Comment on above: Performed By: #### C BCDF #### [address] [id number] COMPREHENSIVE PANELon 2021 Albumin [Mass/Vol] 4.6 g/dL Normal 3.4 - 5.0 [facility] [place] Comment on above: Performed By: #### U A #### [address] [id number] ALP [Catalytic activity/Vol] 44 U/L Normal 33 - 110 [facility] ([place], [place]) Comment on above: Performed By: #### U A #### [address] [id number] ALT [Catalytic activity/Vol] 14 U/L Normal 7 - 45 [facility] ([place], [place]) Comment on above: Result Comment: Carrie ents treated with Sulfasalazine may generate falsely decreased results for ALT. Performed By: #### U A #### [address] [id number] Anion gap [Moles/Vol] 14 mmol/L Normal 10 - 20 [facility] ([place], [place]) Comment on above: Performed By: #### U A #### [address] [id number] AST [Catalytic activity/Vol] 19 U/L Normal 9 - 39 [facility] ([place], [place]) Comment on above: Performed By: #### U A #### [address] [id number] Bilirubin [Mass/Vol] 0.9 mg/dL Normal 0.0 - 1.2 [facility] ([place], [place]) Comment on above: Performed By: #### U A #### [address] [id number] Calcium [Mass/Vol] 9.3 mg/dL Normal 8.6 - 10.3 [facility] [place] Comment on above: Performed By: #### U A #### [address] [id number] Chloride [Moles/Vol] 101 mmol/L Normal 98 - 107 [facility] ([place], [place]) Comment on above: Performed By: #### U A #### [address] [id number] Creatinine [Mass/Vol] 0.67 mg/dL Normal 0.50 - 1.05 [facility] ([place], [place]) Comment on above: Performed By: #### U A #### [address] [id number] eGFR FEMALE >90 Normal >90 [facility] ([place], [place]) Comment on above: Result Comment: CALC ULATIONS OF ESTIMATED GFR ARE PERFORMED USING THE 2020 CKD-EPI STUDY REFIT EQUATION WITHOUT THE RACE VARIABLE FOR THE IDMS-TRACEABLE CREATININE METHODS. https://jasn.asnjournals.org/content/early//ASN.889633896 8 Performed By: #### U A #### [address] [id number] Glucose [Mass/Vol] 95 mg/dL Normal 74 - 99 [facility] [place] Comment on above: Performed By: #### U A #### [address] [id number] HCO3 (Bld) [Moles/Vol] 25 mmol/L Normal 21 - 32 [facility] ([place], [place]) Comment on above: Performed By: #### U A #### [address] [id number] Potassium [Moles/Vol] 3.2 mmol/L Low 3.5 - 5.3 [facility] ([place], [place]) Comment on above: Performed By: #### U A #### [address] [id number] Protein [Mass/Vol] 7.4 g/dL Normal 6.4 - 8.2 [facility] [place] Comment on above: Performed By: #### U A #### [address] [id number] Sodium [Moles/Vol] 137 mmol/L Normal 136 - 145 [facility] [place] Comment on above: Performed By: #### U A #### [address] [id number] Urea nitrogen [Mass/Vol] 14 mg/dL Normal 6 - 23 [facility] ([place], [place]) Comment on above: Performed By: #### U A #### [address] [id number] HCG,BETA-QUANTITATIVEon HCG,BETA-QUANTITAT ENZO <[address] [facility] ([place], [place]) Comment on above: Result Comment: . Total HCG measurement is performed using the Perri EMcube Access Immunoassay which detects intact HCG and free beta HCG subunit. . This test is not indicated for use as a tumor marker. HCG testing is performed using a different test methodology at [facility] than other [facility]. Direct result comparison should only be made within the same method. REF VALUES NON FEMALE <5 MALES <5 Performed By: #### U A #### [address] [id number] Provider Note - ED v3on Provider Note [...] dictated by speech recognition. Minor errors in cyber policy and strategy planner may be present. Please call if questions. [...] C (more content not included)... Normal [facility] ([place], [place]) Risk Screen - Adult Emergenc yon 09-08-2022 Risk Screen - Adult Emergency Preferred Language: Preferred Language: Preferred Language for Discussing Health Care (patient/designee)Turkmen Patient Preferred Pharmacy: Patient Preferred Pharmacy Statement: [...] board Learning Preferencesaudio Cultural Considerationsnone Developmental Considerationsnone Episcopal Considerationsnone Learning Assessment (Other Learner): Learning Assessment [...] a Trauma Center ([facility]/[facility] [place]): no Electronic Signatures: Adonis Melchor (RN) (Signed 08-Sep-2022 20:07) Authored: Preferred Language, Patient Preferred Pharmacy, Advanced Directives, Family Violence Adult, Learning Assessment (Patient), Learning Assessment (Other Learner), Pressure Injury/TB/Substance, Pressure Injury, CAGE Last Updated: 08-Sep-2022 20:07 by Adonis Melchor (RN) Normal [facility] ([place], [place]) Triage - EDon 09-08-2022 Triage - ED [...] BMI (kg/m2): 23.496 Calculated BSA (m2) 1.75 [place] Coma Scale: Best Eye Response: (E4) spontaneous Best Motor Response: (M6) obeys commands Best Verbal Response: (V5) oriented [place] Score: 15 Allergies: no Patient has homicidal [...] Last Updated: 08-Sep-2022 15:36 by Mechelle Garcia) [facility] Michael 10-20-2021 IVIS Telephone (4CQ) -- HERNÁNDEZJULIETTE Freeman ([id number]) 1995 F Date Time Provider Department 10/20/21 JUAN ANTONIO ESQEUDA 4CQ During your visit today, we recorded the following information about you: Beny Pope 10/20/2021 9:39 AM Signed Juliette Hernández called today. : 1995 Allergies: Patient has no known allergies. (home) [phone] (cell) Reason for call: Patient calling asking for an alternative medication of Miconazole Nitrate (MONISTAT 3) 200 mg/5 gram (4 %) cream. Insurance does not cover this for patient. Requesting call back if any issues. Confirmed Yarel[facility] Sue as pharmacy Patient last appointment: Visit date not found The patients preferred pharmacy has been captured for this encounter? yes Beny Mcconnell, [email or web address].RN OTOLARYNGOLOGY 10/20/2021 9:52 AM Signed rx sent for [...] Status:Closed by TAL MCCONNELL on 10/20/21 Normal [facility] JULIETTE HERNÁNDEZ ([id number]) 1995 F Date Time Provider Department 10/18/21 JUAN ANTONIO ESQUEDA [facility] During your visit today, we recorded the [...] by JUAN ANTONIO ESQUEDA on 10/18/21 Normal [facility] Bact Vag Amplificationon Bact Vag Amplification Positive Critically abnormal Negative for bacterial vaginosis [facility] Comment on above: Performed By: #### C VTV, BVAMP #### [facility] [address] [place], [place] [address] CNOVon 10-16-2021 CNOV Office Visit (EXPCHC ) -- JULIETTE HERNÁNDEZ ([id number]) 1995 F Date Time Provider Department 10/16/21 9:05 AM JUAN ANTONIO ESQUEDA During your visit today, we recorded the following information about you: Temperature Pulse Respiration Blood pressure 98 degrees 64/minute 20/minute 117/66 Weight Last Period 70.1 kg 10/09/21 Juan Antonio Esqueda PA-C 10/16/2021 10:24 AM Addendum This note was created using [employer]. Subjective Juliette Hernández is a 26 year [...] Exam Vitals reviewed. Exam conducted with a electro mechanical engineer present (Latia Pantoja MA present for exam). [...] VAGINOSIS AMPL (more content not included)... Normal [facility] Sultana Trich Amplon 021 Sultana glabrata RNA Negative Normal Negative [facility] Comment on above: Performed By: #### C VTV, BVAMP #### [place] [id number] Sultana sp group RNA Positive Critically abnormal Negative [facility] Comment on above: Performed By: #### C VTV, BVAMP #### [place] [phone] Trichomonas RNA Negative Normal [facility] Comment on above: Performed By: #### C VTV, BVAMP #### [place] [id number] GC/Chlamydia Amplifon 2020 Chlamydia Amplif Negative Normal [facility] Comment on above: Performed By: #### G CCT #### [place] [id number] [id number] GC Amplification Negative Normal [facility] Comment on above: Performed By: #### G CCT #### [place] [id number] [place] [id number] GC/Chlam Amp Source Cervix Normal [facility] Comment on above: Performed By: #### G CCT #### [facility] [address] [place] [id number] Urine Cultureon 10-16-2021 Bacteria identified Cx Nom (U) Sp. Request/Comment: - Specimen received in preservative Culture Result - <10,000 CFU/ml Normal urogenital brenda Normal [facility] Comment on above: Performed By: #### U RCUL #### [facility] [address] [place], [place] [address] CNPNon 07-17-2021 CNPN Telephone (EXPCHC) -- JULIETTE HERNÁNDEZ ([id number]) 1995 F Date Time Provider Department 07/17/21 [facility] your visit today, we recorded [...] Encounter Status:Closed by RETA CHAVEZ on 07/17/21 [facility] CNCOon 07-15-2021 CNCO Letter Text [facility] CNOVon 07-15-2021 CNOV Office Visit (EXPCHC ) -- JULIETTE HERNÁNDEZ ([id number]) 1995 F Date Time Provider Department 07/15/21 1:15 PM RUBINA LALA EXPN[facility]AC During your visit today, we recorded the following information about you: Temperature Pulse Blood pressure Last Period 97.7 degrees 71/minute 117/75 05/07/21 Rubina Lala PA-C 07/15/2021 1:58 PM Signed This note was created using [employer] Subjective Juliette Hernández is a 26 year [...] causes COVID-19 (more content not included)... Normal [facility] Coronavirus 2019on 1 SARS-CoV-2 (COVID-19) RNA JOSE R+probe Ql (Unsp spec) UPPER RESPIRATORY TRACT SWAB Normal [facility] Comment on above: Performed By: #### C OVID #### [place] [id number] SARS-CoV-2 (COVID-19) RNA JOSE R+probe Ql (Unsp spec) Positive for COVID19 (SARS CoV2) by RT-PCR or equivalent method. Critically abnormal Negative for COVID19 (SARS CoV2) by RT-PCR or equivalent method. [facility] Comment on above: Result Comment: This test was developed and its performance characteristics determined by [facility]'s [facility] [place]. This test has been authorized by FDA under an Emergency Use Authorization (EUA). This test has been validated in accordance with the FDA's Guidance Document Policy for Diagnostics Testing in Laboratories Certified to Perform High Complexity Testing under CLIA prior to Emergency use Authorization for Coronavirus Disease 2019 during the Public Health Emergency issued on January 02, 2020. Test performed by [facility], [facility] [place], [address] [place] [id number]. Performed By: #### C OVID #### [place] [id number] Cult, Urineon 06-02-2020 Bacteria identified Cx Nom (U) PATIENT: JULIETTE HERNÁNDEZ LOCATION: [facility] BILL#: [id number] : [birth year] AGE: SEX: F ORDERED BY: RADHA WISDOM: URINE COLLECTED: 06/02/20 12:48ANTIBIOTICS AT MISSY.: RECEIVED : 06/03/20 00:40SITE: Clean Catch/Voided R E S U L T S URINE CULTURE,BACTERIAL FINAL 06/03/20 23:49 NO SIGNIFICANT GROWTH. SL-WICS-Gxjl [facility] Work Phone: GC + Chlamydia By Amplified Detectionon 06-02-2020 C. trachomatis rRNA JOSE R+probe Ql (Unsp spec) Positive Abnormal Negative RZ-NXZY-Wwko [facility] Work Phone: N. gonorrhoeae rRNA JOSE R+probe Ql (Unsp spec) Positive Abnormal Negative UB-PFSB-Rbwk [facility] Work Phone: Comment on above: SOURCE: Urine IO UA (automated w/o microsc opy)on 06-02-2020 Protein (U) [Mass/Vol] Negative AM-VQEI-Lpfm [facility] Work Phone: IO UA (automated w/o microscopy) Negative DK-OZAC-Ewih [facility] Work Phone: IO UA (automated w/o microscopy) Hemolyzed trace RP-OEIO-Dvmq [facility] Work Phone: IO UA (automated w/o microscopy) 7.5 BP-BVDR-Xnss [facility] Work Phone: IO UA (automated w/o microscopy) Yellow UN-XUHG-Jado [facility] Work Phone: IO UA (automated w/o microscopy) Normal GB-TZEZ-Vrix [facility] Work Phone: IO UA (automated w/o microscopy) 1.015 SG-YMBT-Alqj [facility] Work Phone: IO UA (automated w/o microscopy) Clear MU-XLFO-Xazj [facility] Work Phone: Otheron 06-02-2020 Negative Negative QC-LBZI-Tfhy [facility] Work Phone: Comment on above: SOURCE: Urine CBCon 01-20-2019 Erythrocyte distribution width Ratio (RBC) 13.9 % Normal 12.0-15.4 [facility] Comment on above: Performed By: #### U ARFX #### [facility] [address] [place] [address] Hematocrit Volume Fraction (Bld) 27.4 % Low 36.5-46.6 [facility] Comment on above: Performed By: #### U ARFX #### [facility] [address] [place] [address] Hemoglobin mass conc (Bld) 9.0 g/dL Low 11.8-15.3 [facility] Comment on above: Performed By: #### U ARFX #### [facility] [address] [place] [address] MCH Entitic mass (RBC) 30.1 pg Normal 27.5-33.0 [facility] Comment on above: Performed By: #### U ARFX #### [facility] [address] [place] [address] MCHC mass conc (RBC) 32.8 g/dL Normal 30.1-35.0 [facility] Comment on above: Performed By: #### U ARFX #### [facility] [address] [place] [address] MCV Entitic volume (RBC) 91.6 fL Normal 85.4-100.0 [facility] Comment on above: Performed By: #### U ARFX #### [facility] [address] [place] [address] NRBC Absolute 0.00 10*3/uL Normal [facility] Comment on above: Performed By: #### U ARFX #### [facility] [address] [place] [address] NRBC Automated 0.0 /100{WBCs} Normal [facility] Comment on above: Performed By: #### U ARFX #### [facility] [address] [place] [address] Platelet mean volume Entitic volume (Bld) 10.4 fL Normal 9.9-12.1 [facility] Comment on above: Performed By: #### U ARFX #### [facility] [address] [place] [address] Platelets #/vol (Bld) 181 10*3/uL Normal 155-404 [facility] Comment on above: Performed By: #### U ARFX #### [facility] [address] [place], [place] [id number] RBC #/vol (Bld) 2.99 10*6/uL Low 3.85-5.10 [facility] Comment on above: Performed By: #### U ARFX #### [facility] [address] [place] [address] RDW SD 46.8 fL Normal 39.3-48.6 [facility] Comment on above: Performed By: #### U ARFX #### [facility] [address] [place] [address] WBC #/vol (Bld) 11.7 10*3/uL High 4.4-9.9 [facility] Comment on above: Performed By: #### U ARFX #### [facility] [address] [place] [address] CBC With Differentialon 01-02 Basophils #/vol (Bld) 0.04 10*3/uL Normal 0.01-0.07 [facility] Comment on above: Performed By: #### U ARFX #### [facility] [address] [place], [place] [id number] Basophils/100 WBC (Bld) 0.4 % Normal 0.1-1.2 [facility] Comment on above: Performed By: #### U ARFX #### [facility] [address] [place] [address] Eosinophils #/vol (Bld) 0.03 10*3/uL Low 0.04-0.50 [facility] Comment on above: Performed By: #### U ARFX #### [facility] [address] [place] [address] Eosinophils/100 WBC (Bld) 0.3 % Normal 0.0-8.1 [facility] Comment on above: Performed By: #### U ARFX #### [facility] [address] [place] [address] Erythrocyte distribution width Ratio (RBC) 14.0 % Normal 12.0-15.4 [facility] Comment on above: Performed By: #### U ARFX #### [facility] [address] [place] [address] Hematocrit Volume Fraction (Bld) 32.8 % Low 36.5-46.6 [facility] Comment on above: Performed By: #### U ARFX #### [facility] [address] [place] [address] Hemoglobin mass conc (Bld) 10.8 g/dL Low 11.8-15.3 [facility] Comment on above: Performed By: #### U ARFX #### [facility] [address] [place] [address] Imm Grans Absolute 0.04 10*3/uL Normal 0.00-0.21 [facility] Comment on above: Performed By: #### U ARFX #### [facility] [address] [place] [address] Immature granulocytes #/vol (Bld) 0.4 % Normal [facility] Comment on above: Performed By: #### U ARFX #### [facility] [address] [place] [address] Lymphocytes #/vol (Bld) 1.96 10*3/uL Normal 0.40-2.84 [facility] Comment on above: Performed By: #### U ARFX #### [facility] [address] [place] [address] Lymphocytes/100 WBC (Bld) 19.6 % Normal 15.7-50.5 [facility] Comment on above: Performed By: #### U ARFX #### [facility] [address] [place] [address] MCH Entitic mass (RBC) 30.2 pg Normal 27.5-33.0 [facility] Comment on above: Performed By: #### U ARFX #### [facility] [address] [place] [address] MCHC mass conc (RBC) 32.9 g/dL Normal 30.1-35.0 [facility] Comment on above: Performed By: #### U ARFX #### [facility] [address] [place] [address] MCV Entitic volume (RBC) 91.6 fL Normal 85.4-100.0 [facility] Comment on above: Performed By: #### U ARFX #### [facility] [address] [place] [address] Monocytes #/vol (Bld) 1.00 10*3/uL High 0.25-0.83 [facility] Comment on above: Performed By: #### U ARFX #### [facility] [address] [place] [address] Monocytes/100 WBC (Bld) 10.0 % Normal 4.8-12.7 [facility] Comment on above: Performed By: #### U ARFX #### [facility] [address] [place] [address] Neutrophils Absolute 6.91 10*3/uL High 1.95-6.85 [facility] Comment on above: Performed By: #### U ARFX #### [facility] [address] [place] [address] Neutrophils/100 WBC (Bld) 69.3 % Normal 36.8-73.2 [facility] Comment on above: Performed By: #### U ARFX #### [facility] [address] [place] [address] NRBC Absolute 0.00 10*3/uL Normal [facility] Comment on above: Performed By: #### U ARFX #### [facility] [address] [place] [address] NRBC Automated 0.0 /100{WBCs} Normal [facility] Comment on above: Performed By: #### U ARFX #### [facility] [address] [place] [address] Platelet mean volume Entitic volume (Bld) 11.0 fL Normal 9.9-12.1 [facility] Comment on above: Performed By: #### U ARFX #### [facility] [address] [place] [address] Platelets #/vol (Bld) 186 10*3/uL Normal 155-404 [facility] Comment on above: Performed By: #### U ARFX #### [facility] [address] [place] [address] RBC #/vol (Bld) 3.58 10*6/uL Low 3.85-5.10 [facility] Comment on above: Performed By: #### U ARFX #### [facility] [address] [place] [address] RDW SD 46.7 fL Normal 39.3-48.6 [facility] Comment on above: Performed By: #### U ARFX #### [facility] [address] [place] [address] WBC #/vol (Bld) 10.0 10*3/uL High 4.4-9.9 [facility] Comment on above: Performed By: #### U ARFX #### [facility] [address] [place] [address] Drugs of Abuse, Urine(7)on 0 01-19-2019 Amphetamines/Metam phetamines, Urine Not Detected Normal [facility] Comment on above: Performed By: #### U ARFX #### [facility] [address] [place] [address] Barbiturates, Urine Not Detected Normal [facility] Comment on above: Performed By: #### U ARFX #### [facility] [address] [place] [address] Benzodiazepines, Urine Not Detected Normal [facility] Comment on above: Performed By: #### U ARFX #### [facility] [address] [place] [address] Cannabinoids, Urine Not Detected Normal [facility] Comment on above: Performed By: #### U ARFX #### [facility] [address] [place] [address] Cocaine, Urine Not Detected Normal [facility] Comment on above: Performed By: #### U ARFX #### [facility] [address] [place] [address] Methadone, Urine Not Detected Normal [facility] Comment on above: Performed By: #### U ARFX #### [facility] [address] [place], [place] [id number] Opiates, Urine Not Detected Normal [facility] Comment on above: Performed By: #### U ARFX #### [facility] [address] [place] [address] PCP, Urine Not Detected Normal [facility] Comment on above: Result Comment: Urin e toxicology screen results are to be used for medical purposes only. It is recommended that any result reported as Detected be confirmed by a more specific alternative chemical method. Drug Analyzed Cutoff Concentration(ng/mL) Barbiturates 200 Benzodiazepines 200 Cocaine 150 Opiates 300 Amphetamines 500 Cannabinoids 50 Methadone 150 PCP 25 Performed By: #### U ARFX #### [facility] [address] [place] [address] Pathology ([facility])on 01-19-2019 Pathology ([facility]) Copy To: KEYSHA [place] FINAL SURGICAL PATHOLOGY [...] SPECIMEN(S): (A) PLACENTA, THIRD TRIMESTER Performed at [facility], [address] [place] [address] GROSS DESCRIPTION: Received fresh, labeled with the [...] are noted. The surface is slightly opaque. Glue Mounter Operator sections of cord, membranes, and placenta are [...] above: Performed By: #### U ARFX #### [facility] [address] [place] [address] Type and Screenon 01-19-2019 Group and Rh Positive Normal [facility] Comment on above: Performed By: #### U ARFX #### [facility] [address] [place] [address] Urinalysison 01-19-2019 Amorphous Crystal Occasional Normal None [facility] Comment on above: Performed By: #### U ARFX #### [facility] [address] [place] [address] Appearance Nom (U) Cloudy Normal Clear [facility] Comment on above: Performed By: #### U ARFX #### [facility] [address] [place] [address] Ascorbic Acid Negative Normal Negative [facility] Comment on above: Performed By: #### U ARFX #### [facility] [address] [place] [address] Automated Urine Microscopy Performed Normal [facility] Comment on above: Performed By: #### U ARFX #### [facility] [address] [place] [address] Bacteria LM.HPF #/area (Urine sed) Occasional Normal None [facility] Comment on above: Performed By: #### U ARFX #### [facility] [address] [place] [address] Bilirubin mass conc Negative Normal Negative [facility] Comment on above: Performed By: #### U ARFX #### [facility] [address] [place] [address] Blood Negative Normal Negative [facility] Comment on above: Performed By: #### U ARFX #### [facility] [address] [place] [address] Color Nom (U) Yellow Normal [facility] Comment on above: Performed By: #### U ARFX #### [facility] [address] [place] [address] Glucose mass conc Negative Normal Negative [facility] Comment on above: Performed By: #### U ARFX #### [facility] [address] [place] [address] Ketones Ql (U) Negative Normal Negative [facility] Comment on above: Performed By: #### U ARFX #### [facility] [address] [place] [address] Leukocytes Esterase Large Abnormal Negative [facility] Comment on above: Performed By: #### U ARFX #### [facility] [address] [place] [address] Nitrite Ql (U) Negative Normal Negative [facility] Comment on above: Performed By: #### U ARFX #### [facility] [address] [place] [address] pH (Bld) 7.0 Normal 5.0-9.0 [facility] Comment on above: Performed By: #### U ARFX #### [facility] [address] [place] [address] Protein mass conc (U) Negative Normal Negative [facility] Comment on above: Performed By: #### U ARFX #### [facility] [address] [place] [address] RBC 11 /[HPF] Normal 0-3 [facility] Comment on above: Performed By: #### U ARFX #### [facility] [address] [place] [address] Specific gravity Relative Density (U) 1.010 Normal 1.003-1.035 [facility] Comment on above: Performed By: #### U ARFX #### [facility] [address] [place] [address] Squamous Epithelial Cells 29 /[HPF] Normal 0-5 [facility] Comment on above: Performed By: #### U ARFX #### [facility] [address] [place] [address] Urobilinogen Qn (U) 2.0 mg/dL Abnormal Negative [facility] Comment on above: Result Comment: Due to a manufacturing issue, low positive urobilinogen results may be falsely positive. Correlate with urine bilirubin and additional clinical/laboratory findings to assess the risk of hemolytic anemia or liver disease. If clinically indicated, repeat testing with an alternate method is available by contacting the laboratory within 24 hours. Performed By: #### U ARFX #### [facility] [address] [place] [address] WBC 32 /[HPF] Normal 0-5 [facility] Comment on above: Performed By: #### U ARFX #### [facility] [address] [place] [address] Culture, Group B Strep Scree non 12-25-2018 Culture, Group B Strep Screen BILL#: [id number] : 89 AGE: SEX: F AMBULATORY SOURCE: COLLECTED: 12/25/18 19:16 ANTIBIOTICS AT MISSY.: RECEIVED : 12/25/18 22:00 SITE: R E S U L T S GROUP B STREP SCREEN FINAL 12/27/18 08:44 NEGATIVE FOR GROUP B BETA STREP. Normal [facility] Comment on above: Performed By: #### C XBUR #### [facility] [address] [place] [address] Culture, Urine Bacterialon 0 12-25-2018 Culture, Urine Bacterial BILL#: [id number] : 89 AGE: SEX: F AMBULATORY SOURCE: URINE COLLECTED: 12/25/18 19:15 ANTIBIOTICS AT MISSY.: RECEIVED : 12/25/18 21:58 SITE: Unspecified R E S U L T S URINE CULTURE,BACTERIAL FINAL 12/26/18 15:49 NO SIGNIFICANT GROWTH. Normal [facility] Comment on above: Performed By: #### C XBUR #### [facility] [address] [place] [address] N. gonorrhoeae/C. trachomati s, Amplifiedon 12-25-2018 Chlamydia trachomatis, Amplified Negative Normal Negative [facility] Comment on above: Performed By: #### C XBUR #### [facility] [address] [place] [address] GC/CHLAM/TRICA Source Swab-Endocerv Normal [facility] Comment on above: Performed By: #### C XBUR #### [facility] [address] [place] [address] Neisseria gonorrhoeae, Amplified Negative Normal Negative [facility] Comment on above: Performed By: #### C XBUR #### [facility] [address] [place] [address] Trichmonas, Amplified Detect ionon 12-25-2018 Trichomonas, Amplified Negative Normal Negative [facility] Comment on above: Performed By: #### C XBUR #### [facility] [address] [place] [address] CBCon 12-11-2018 Erythrocyte distribution width Ratio (RBC) 13.0 % Normal 12.0-15.4 [facility] Comment on above: Performed By: #### C XBUR #### [facility] [address] [place] [address] Hematocrit Volume Fraction (Bld) 33.0 % Low 36.5-46.6 [facility] Comment on above: Performed By: #### C XBUR #### [facility] [address] [place] [address] Hemoglobin mass conc (Bld) 10.8 g/dL Low 11.8-15.3 [facility] Comment on above: Performed By: #### C XBUR #### [facility] [address] [place] [address] MCH Entitic mass (RBC) 29.8 pg Normal 27.5-33.0 [facility] Comment on above: Performed By: #### C XBUR #### [facility] [address] [place] [address] MCHC mass conc (RBC) 32.7 g/dL Normal 30.1-35.0 [facility] Comment on above: Performed By: #### C XBUR #### [facility] [address] [place] [address] MCV Entitic volume (RBC) 91.2 fL Normal 85.4-100.0 [facility] Comment on above: Performed By: #### C XBUR #### [facility] [address] [place] [address] NRBC Absolute 0.00 10*3/uL Normal [facility] Comment on above: Performed By: #### C XBUR #### [facility] [address] [place] [address] NRBC Automated 0.0 /100{WBCs} Normal [facility] Comment on above: Performed By: #### C XBUR #### [facility] [address] [place] [address] Platelet mean volume Entitic volume (Bld) 9.8 fL Low 9.9-12.1 [facility] Comment on above: Performed By: #### C XBUR #### [facility] [address] [place] [address] Platelets #/vol (Bld) 228 10*3/uL Normal 155-404 [facility] Comment on above: Performed By: #### C XBUR #### [facility] [address] [place] [address] RBC #/vol (Bld) 3.62 10*6/uL Low 3.85-5.10 [facility] Comment on above: Performed By: #### C XBUR #### [facility] [address] [place] [address] RDW SD 43.0 fL Normal 39.3-48.6 [facility] Comment on above: Performed By: #### C XBUR #### [facility] [address] [place] [address] WBC #/vol (Bld) 9.6 10*3/uL Normal 4.4-9.9 [facility] Comment on above: Performed By: #### C XBUR #### [facility] [address] [place] [address] Comprehensive Metabolic Pane adriano 12-11-2018 Albumin mass conc 3.4 g/dL Normal 3.4-5.0 [facility] Comment on above: Performed By: #### C XBUR #### [facility] [address] [place] [address] Albumin/Globulin mass ratio 1.1 {ratio} Normal 0.9-2.4 [facility] Comment on above: Performed By: #### C XBUR #### [facility] [address] [place] [address] ALP enzyme act/vol 97 U/L Normal 45-117 [facility] Comment on above: Performed By: #### C XBUR #### [facility] [address] [place] [address] ALT enzyme act/vol 16 U/L Normal 7-45 [facility] Comment on above: Performed By: #### C XBUR #### [facility] [address] [place] [address] Anion gap molar conc 13 mmol/L Normal 10-20 [facility] Comment on above: Performed By: #### C XBUR #### [facility] [address] [place] [address] AST enzyme act/vol 14 U/L Normal 13-39 [facility] Comment on above: Performed By: #### C XBUR #### [facility] [address] [place] [address] Bilirubin mass conc 0.4 mg/dL Normal 0.0-1.2 [facility] Comment on above: Performed By: #### C XBUR #### [facility] [address] [place] [address] Calcium mass conc 8.8 mg/dL Normal 8.6-10.3 [facility] Comment on above: Performed By: #### C XBUR #### [facility] [address] [place] [address] Chloride molar conc 103 mmol/L Normal 98-107 [facility] Comment on above: Performed By: #### C XBUR #### [facility] [address] [place] [address] Creatinine mass conc 0.41 mg/dL Low 0.50-1.05 [facility] Comment on above: Performed By: #### C XBUR #### [facility] [address] [place] [address] GFR/1.73 sq M.predicted MDRD vol rate/area mL/min/{1.73_m2} Normal [facility] Comment on above: Result Comment: Inte rpretation for Chronic Kidney Disease: Stages 1&2 >60 Healthy or potential kidney damage. Mild decrease of GFR. Stage 3 30-59 Moderate decrease of GFR. Stage 4 15-29 Severe decrease of GFR. Stage 5 <15 Kidney failure or on dialysis. Performed By: #### C XBUR #### [facility] [address] [place] [address] Glucose mass conc 87 mg/dL Normal 70-100 [facility] Comment on above: Performed By: #### C XBUR #### [facility] [address] [place] [address] HCO3 molar conc (Bld) 26 mmol/L Normal 21-32 [facility] Comment on above: Performed By: #### C XBUR #### [facility] [address] [place] [address] Potassium molar conc 4.1 mmol/L Normal 3.5-5.1 [facility] Comment on above: Performed By: #### C XBUR #### [facility] [address] [place] [address] Protein mass conc 6.4 g/dL Normal 6.4-8.2 [facility] Comment on above: Performed By: #### C XBUR #### [facility] [address] [place] [address] Sodium molar conc 138 mmol/L Normal 136-145 [facility] Comment on above: Performed By: #### C XBUR #### [facility] [address] [place] [address] Urea nitrogen mass conc 5 mg/dL Low 6-23 [facility] Comment on above: Performed By: #### C XBUR #### [facility] [address] [place] [address] Urea nitrogen/Creatinin e mass ratio 12 mg/mg Normal 5-25 [facility] Comment on above: Performed By: #### C XBUR #### [facility] [address] [place] [address] Drugs of Abuse, Urine(7)on 0 12-11-2018 Amphetamines/Metam phetamines, Urine Not Detected Normal [facility] Comment on above: Performed By: #### C XBUR #### [facility] [address] [place] [address] Barbiturates, Urine Not Detected Normal [facility] Comment on above: Performed By: #### C XBUR #### [facility] [address] [place] [address] Benzodiazepines, Urine Not Detected Normal [facility] Comment on above: Performed By: #### C XBUR #### [facility] [address] [place] [address] Cannabinoids, Urine Not Detected Normal [facility] Comment on above: Performed By: #### C XBUR #### [facility] [address] [place] [address] Cocaine, Urine Not Detected Normal [facility] Comment on above: Performed By: #### C XBUR #### [facility] [address] [place] [address] Methadone, Urine Not Detected Normal [facility] Comment on above: Performed By: #### C XBUR #### [facility] [address] [place] [address] Opiates, Urine Not Detected Normal [facility] Comment on above: Performed By: #### C XBUR #### [facility] [address] [place] [address] PCP, Urine Not Detected Normal [facility] [...] 25 Performed By: #### C XBUR #### [facility] [address] [place] [address] Urinalysison 12-11-2018 Amorphous Crystal Occasional Normal None [facility] Comment on above: Performed By: #### C XBUR #### [facility] [address] [place] [address] Appearance Nom (U) Cloudy Normal Clear [facility] Comment on above: Performed By: #### C XBUR #### [facility] [address] [place] [address] Ascorbic Acid Negative Normal Negative [facility] Comment on above: Performed By: #### C XBUR #### [facility] [address] [place] [address] Automated Urine Microscopy Performed Normal [facility] Comment on above: Performed By: #### C XBUR #### [facility] [address] [place] [address] Bilirubin mass conc Negative Normal Negative [facility] Comment on above: Performed By: #### C XBUR #### [facility] [address] [place] [address] Blood Negative Normal Negative [facility] Comment on above: Performed By: #### C XBUR #### [facility] [address] [place] [address] Color Nom (U) Yellow Normal [facility] Comment on above: Performed By: #### C XBUR #### [facility] [address] [place] [address] Glucose mass conc Negative Normal Negative [facility] Comment on above: Performed By: #### C XBUR #### [facility] [address] [place] [address] Ketones Ql (U) Negative Normal Negative [facility] Comment on above: Performed By: #### C XBUR #### [facility] [address] [place] [address] Leukocytes Esterase Trace Abnormal Negative [facility] Comment on above: Performed By: #### C XBUR #### [facility] [address] [place] [address] Mucous Rare Normal None [facility] Comment on above: Performed By: #### C XBUR #### [facility] [address] [place] [address] Nitrite Ql (U) Negative Normal Negative [facility] Comment on above: Performed By: #### C XBUR #### [facility] [address] [place] [address] pH (Bld) 7.0 Normal 5.0-9.0 [facility] Comment on above: Performed By: #### C XBUR #### [facility] [address] [place] [address] Protein mass conc (U) Negative Normal Negative [facility] Comment on above: Performed By: #### C XBUR #### [facility] [address] [place] [address] RBC 3 /[HPF] Normal 0-3 [facility] Comment on above: Performed By: #### C XBUR #### [facility] [address] [place] [address] Specific gravity Relative Density (U) 1.014 Normal 1.003-1.035 [facility] Comment on above: Performed By: #### C XBUR #### [facility] [address] [place] [address] Squamous Epithelial Cells 23 /[HPF] Normal 0-5 [facility] Comment on above: Performed By: #### C XBUR #### [facility] [address] [place] [address] Urobilinogen Qn (U) <2.0 Normal Negative EM [...] hours. Performed By: #### C XBUR #### [facility] [address] [place] [address] WBC 3 /[HPF] Normal 0-5 [facility] Comment on above: Performed By: #### C XBUR #### [facility] [address] [place] [address] Drugs of Abuse, Urine(7)on 0 - Amphetamines/Metam phetamines, Urine Not Detected Normal [facility] Comment on above: Performed By: #### C XBUR #### [facility] [address] [place] [address] Barbiturates, Urine Not Detected Normal [facility] Comment on above: Performed By: #### C XBUR #### [facility] [address] [place] [address] Benzodiazepines, Urine Not Detected Normal [facility] Comment on above: Performed By: #### C XBUR #### [facility] [address] [place] [address] Cannabinoids, Urine Not Detected Normal [facility] Comment on above: Performed By: #### C XBUR #### [facility] [address] [place] [address] Cocaine, Urine Not Detected Normal [facility] Comment on above: Performed By: #### C XBUR #### [facility] [address] [place] [address] Methadone, Urine Not Detected Normal [facility] Comment on above: Performed By: #### C XBUR #### [facility] [address] [place] [address] Opiates, Urine Not Detected Normal [facility] Comment on above: Performed By: #### C XBUR #### [facility] [address] [place] [address] PCP, Urine Not Detected Normal [facility] [...] 25 Performed By: #### C XBUR #### [facility] [address] [place] [address] Urinalysison 12-01-2018 Appearance Nom (U) Clear Normal Clear [facility] Comment on above: Performed By: #### G CCHA #### [facility] [address] [place] [address] Ascorbic Acid Positive Normal Negative [facility] Comment on above: Result Comment: Pres ence of Ascorbic Acid may interfere with the detection of blood, glucose, nitrite, and bilirubin. Performed By: #### G CCHA #### [facility] [address] [place] [address] Automated Urine Microscopy Performed Normal [facility] Comment on above: Performed By: #### G CCHA #### [facility] [address] [place] [address] Bilirubin mass conc Negative Normal Negative [facility] Comment on above: Performed By: #### G [facility] #### [facility] [address] [place] [address] Blood Negative Normal Negative [facility] Comment on above: Performed By: #### G CCHA #### [facility] [address] [place] [address] Budding Yeast Rare Normal None [facility] Comment on above: Performed By: #### G CCHA #### [facility] [address] [place] [address] Color Nom (U) Yellow Normal [facility] Comment on above: Performed By: #### G CCHA #### [facility] [address] [place] [address] Glucose mass conc Negative Normal Negative [facility] Comment on above: Performed By: #### G CCHA #### [facility] [address] [place] [address] Ketones Ql (U) Negative Normal Negative [facility] Comment on above: Performed By: #### G CCHA #### [facility] [address] [place] [address] Leukocytes Esterase Small Abnormal Negative [facility] Comment on above: Performed By: #### G [facility] #### [facility] [address] [place] [address] Mucous Rare Normal None [facility] Comment on above: Performed By: #### G CCHA #### [facility] [address] [place] [address] Nitrite Ql (U) Negative Normal Negative [facility] Comment on above: Performed By: #### G [facility] #### [facility] [address] [place] [address] pH (Bld) 7.0 Normal 5.0-9.0 [facility] Comment on above: Performed By: #### G [facility] #### [facility] [address] [place] [address] Protein mass conc (U) Negative Normal Negative [facility] Comment on above: Performed By: #### G [facility] #### [facility] [address] [place] [address] RBC 3 /[HPF] Normal 0-3 [facility] Comment on above: Performed By: #### G [facility] #### [facility] [address] [place] [address] Specific gravity Relative Density (U) 1.016 Normal 1.003-1.035 [facility] Comment on above: Performed By: #### G [facility] #### [facility] [address] [place] [address] Squamous Epithelial Cells 12 /[HPF] Normal 0-5 [facility] Comment on above: Performed By: #### G [facility] #### [facility] [address] [place] [address] Urobilinogen Qn (U) <2.0 Normal Negative [facility] [...] within 24 hours. Performed By: #### G [facility] #### [facility] [address] [place] [address] WBC 2 /[HPF] Normal 0-5 [facility] Comment on above: Performed By: #### G CCHA #### [facility] [address] [place] [address] Vaginal Pathogen DNAon 12-01 Estrada Vag DNA Probe Positive Abnormal Negative [facility] Comment on above: Performed By: #### C XBROSALINA #### [facility] [address] [place] [address] Protein mass conc Negative Normal Negative [facility] Comment on above: Performed By: #### C XBROSALINA #### [facility] [address] [place] [address] Trich Vag DNA Probe Negative Normal Negative [facility] Comment on above: Performed By: #### C XBROSALINA #### [facility] [address] [place] [address] Ferritinon 11-13-2018 Ferritin mass conc 6 ng/mL Low 8-150 [facility] Comment on above: Performed By: #### G [facility] #### [facility] [address] [place] [address] Folate/B12on 11-13-2018 Cobalamin (Vitamin B12) mass conc 239 pg/mL Normal 211-911 [facility] Comment on above: Performed By: #### G [facility] #### [facility] [address] [place] [address] Folate 21.10 ng/mL Normal [facility] Comment on above: Result Comment: Norm al Range >5.0 Performed By: #### G [facility] #### [facility] [address] [place] [address] N. gonorrhoeae/C. trachomati s, Amplifiedon 11-13-2018 Chlamydia trachomatis, Amplified Negative Normal Negative [facility] Comment on above: Performed By: #### G [facility] #### [facility] [address] [place] [address] GC/CHLAM/TRICA Source Swab-Endocerv Normal [facility] Comment on above: Performed By: #### G [facility] #### [facility] [address] [place] [address] Neisseria gonorrhoeae, Amplified Negative Normal Negative [facility] Comment on above: Performed By: #### G [facility] #### [facility] [address] [place] [address] Vaginal Pathogen DNAon 11-13 Estrada Vag DNA Probe Positive Abnormal Negative [facility] Comment on above: Performed By: #### G CCHA #### [facility] [address] [place] [address] Protein mass conc Positive Abnormal Negative [facility] Comment on above: Performed By: #### G [facility] #### [facility] [address] [place] [address] Trich Vag DNA Probe Negative Normal Negative [facility] Comment on above: Performed By: #### G [facility] #### [facility] [address] [place] [address] CBCon 10-24-2018 Erythrocyte distribution width Ratio (RBC) 13.2 % Normal 12.0-15.4 [facility] Comment on above: Performed By: #### G [facility] #### [facility] [address] [place] [address] Hematocrit Volume Fraction (Bld) 31.3 % Low 36.5-46.6 [facility] Comment on above: Performed By: #### G [facility] #### [facility] [address] [place] [address] Hemoglobin mass conc (Bld) 10.3 g/dL Low 11.8-15.3 [facility] Comment on above: Performed By: #### G [facility] #### [facility] [address] [place] [address] MCH Entitic mass (RBC) 30.0 pg Normal 27.5-33.0 [facility] Comment on above: Performed By: #### G CCHA #### [facility] [address] [place] [address] MCHC mass conc (RBC) 32.9 g/dL Normal 30.1-35.0 [facility] Comment on above: Performed By: #### G [facility] #### [facility] [address] [place] [address] MCV Entitic volume (RBC) 91.3 fL Normal 85.4-100.0 [facility] Comment on above: Performed By: #### G [facility] #### [facility] [address] [place] [address] NRBC Absolute 0.00 10*3/uL Normal [facility] Comment on above: Performed By: #### G [facility] #### [facility] [address] [place] [address] NRBC Automated 0.0 /100{WBCs} Normal [facility] Comment on above: Performed By: #### G [facility] #### [facility] [address] [place] [address] Platelet mean volume Entitic volume (Bld) 10.2 fL Normal 9.9-12.1 [facility] Comment on above: Performed By: #### G [facility] #### [facility] [address] [place] [address] Platelets #/vol (Bld) 233 10*3/uL Normal 155-404 [facility] Comment on above: Performed By: #### G [facility] #### [facility] [address] [place] [address] RBC #/vol (Bld) 3.43 10*6/uL Low 3.85-5.10 [facility] Comment on above: Performed By: #### G [facility] #### [facility] [address] [place] [address] RDW SD 44.4 fL Normal 39.3-48.6 [facility] Comment on above: Performed By: #### G CCHA #### [facility] [address] [place] [address] WBC #/vol (Bld) 8.8 10*3/uL Normal 4.4-9.9 [facility] Comment on above: Performed By: #### G [facility] #### [facility] [address] [place] [address] Glucose, 1 H Post 50 Gram (P regnancy Screen)on 10-24-2018 Glucose, 1 H Post 50 Gram ( Screen) 114 mg/dL Normal 55-140 [facility] Comment on above: Performed By: #### G CCHA #### [facility] [address] [place] [address] N. gonorrhoeae/C. trachomati s, Amplifiedon 10-16-2018 Chlamydia trachomatis, Amplified Positive Abnormal Negative [facility] Comment on above: Performed By: #### G CCHA #### [facility] [address] [place] [address] GC/CHLAM/TRICA Source Urine Normal [facility] Comment on above: Performed By: #### G [facility] #### [facility] [address] [place] [address] Neisseria gonorrhoeae, Amplified Positive Abnormal Negative [facility] Comment on above: Performed By: #### G CCHA #### [facility] [address] [place] [address] CBCon 09-18-2018 Erythrocyte distribution width Ratio (RBC) 13.5 % Normal 12.0-15.4 [facility] Comment on above: Performed By: #### 2 [id number] #### [facility] [address] [place] [address] Hematocrit Volume Fraction (Bld) 34.6 % Low 36.5-46.6 [facility] Comment on above: Performed By: #### 2 [id number] #### [facility] [address] [place] [address] Hemoglobin mass conc (Bld) 11.3 g/dL Low 11.8-15.3 [facility] Comment on above: Performed By: #### 2 [id number] #### [facility] [address] [place] [address] MCH Entitic mass (RBC) 29.5 pg Normal 27.5-33.0 [facility] Comment on above: Performed By: #### 2 [id number] #### [facility] [address] [place] [address] MCHC mass conc (RBC) 32.7 g/dL Normal 30.1-35.0 [facility] Comment on above: Performed By: #### 2 [id number] #### [facility] [address] [place] [address] MCV Entitic volume (RBC) 90.3 fL Normal 85.4-100.0 [facility] Comment on above: Performed By: #### 2 [id number] #### [facility] [address] [place] [address] NRBC Absolute 0.00 10*3/uL Normal [facility] Comment on above: Performed By: #### 2 [id number] #### [facility] [address] [place] [address] NRBC Automated 0.0 /100{WBCs} Normal [facility] Comment on above: Performed By: #### 2 [id number] #### [facility] [address] [place] [address] Platelet mean volume Entitic volume (Bld) 10.7 fL Normal 9.9-12.1 [facility] Comment on above: Performed By: #### 2 [id number] #### [facility] [address] [place] [address] Platelets #/vol (Bld) 255 10*3/uL Normal 155-404 [facility] Comment on above: Performed By: #### 2 [id number] #### [facility] [address] [place] [address] RBC #/vol (Bld) 3.83 10*6/uL Low 3.85-5.10 [facility] Comment on above: Performed By: #### 2 [id number] #### [facility] [address] [place] [address] RDW SD 44.2 fL Normal 39.3-48.6 [facility] Comment on above: Performed By: #### 2 [id number] #### [facility] [address] [place] [address] WBC #/vol (Bld) 8.8 10*3/uL Normal 4.4-9.9 [facility] Comment on above: Performed By: #### 2 [id number] #### [facility] [address] [place] [address] Culture, Urine Bacterialon 1 11-18-2017 Culture, Urine Bacterial BILL#: [id number] : 89 AGE: SEX: F AMBULATORY SOURCE: URINE COLLECTED: 09/18/18 19:09 ANTIBIOTICS AT MISSY.: RECEIVED : 09/18/18 22:53 SITE: Unspecified R E S U L T S URINE CULTURE,BACTERIAL FINAL 09/19/18 16:24 NO SIGNIFICANT GROWTH. Normal [facility] Comment on above: Performed By: #### U ARFX #### [facility] [address] [place] [address] Cystic Fibrosis, 165 Variant on 09-18-2018 CF 165 Variant Interp. 0 variants Normal [facility] Comment on above: Result Comment: None [...] 1 in 61 1 in 275 Ashkenazi Anglican 96% 1 in 24 1 in 575 Citizen Of [place] 55% 1 in 94 1 in 210 92% 1 in 25 1 in 300 Citizen Of [place] 80% 1 in 58 1 in 285 [...] or bronchiectasis. INCIDENCE: 1 in 2,300 Ashkenazi Anglican, 1 in 2,500 Caucasians, 1 in 13,500 [...] for the 23 recommended ACMG variants. c.1A>G, p.Zki3Jkd; c.93-5414_002+72635bbm, Exons 2-3del; c.115C>T, p.Gln39X; c.178G>T, p.Glu60X; c.200C>T, p.Mjp59Dch; c.223C>T, p.Arg75X; c.254G>A (Legacy G85E), p.Fyl96Ewv; c.262_263delTT, p.Rwu72KiiljS56 (aka p.Ekd93xd); c.273+1G>A, Intronic; c.273+3A>C, Intronic; c.274-1G>A, Intronic; c.274G>A, p.Pkn99Wvp; c.274G>T, p.Glu92X; c.292C>T, p.Gln98X; c.313delA, p.Kzx931PfonqG7 (aka p.Kpj045ol); c.325_327delTATinsG, p.Pcu013UgrgeD1 (aka p.Sif144iq); c.328G>C, p.Byq644Qjf; c.349C>T, p.Jvd389Ora; c.350G>A (Legacy R117H), p.Xio211Ocs; c.366T>A, p.Taq344U; c.442delA, p.Nxo057IvjidV9 (aka p.Cej567dh); c.489+1G>T (Legacy 621+1G>T), Intronic; c.531delT, p.Fwz607WjsbdO41 (aka p.Ixc328xw); c.532G>A, p.Fzd186Syb; c.579+1G>T (Legacy 711+1G>T), Intronic; c.579+5G>A, Intronic; c.579+3A>G, Intronic; c.580-1G>T, Intronic; c.595C>T, p.Khe335Wrq; c.613C>T, p.Ldm763Uyj; c.617T>G, p.Jmv888Rjd; c.658C>T, p.Rhe624N; c.680T>G, p.Leo313Raj; c.720_741delAGGGAGAATGATGATGAAGTAC, p.Xdf508UgabtW75 (aka p.Ata950ea); c.803delA, p.Gio941RtlzqS41 (aka p.Ijh817ze); c.805_806delAT, p.Bip576HwqgyI6 (aka p.Mpa458bg); c.933_935delCTT, p.Qti010hfh; c.948delT, p.Zbv146KygxjS21 (aka p.Gxi267en); c.988G>T, p.Swj180Q; c.1000C>T (Legacy R334W), p.Iok995Rnj; c.1007T>A, p.Zkv355Otu; c.1021T>C, p.Ltl628Udj; c.1022_1023insTC, p.Sot693OjpcfU95 (aka p.Hgm946zn); c.1040G>A, p.Fio069Wpp; c.1040G>C (Legacy R347P), p.Vpn363Mzd; c.1055G>A, p.Bry876Gvj; c.1081delT, p.Xxy279PlopdL8 (aka p.Kjx921to); c.1116+1G>A, Intronic; c.1127_1128insA, p.Zhi478PeyrzB7 (aka p.Cmu344hr); c.1153_1154insAT, p.Wpa659VgbnsW5 (aka p.Yzy113qz); c.1202G>A, p.Zbo177Z; c.1203G>A, p.Tos905M; c.1209+1G>A, Intronic; c.1329_1330insAGAT, p.Jsd940TknwqC5 (aka p.Lhx596ov); c.1340delA, p.Dys624ShohfR5 (aka p.Hhc554kp); c.1364C>A (Legacy A455E), p.Qcn952Him; c.1393-1G>A, Intronic; c.1397C>A, p.Dhm655Z; c.1397C>G, p.Ccl173G; c.1400T>C, p.Min371Hdg; c.1418delG, p.Uyy512GltdyK56 (aka p.Gha931ic); c.1438G>T, p.Tvb666Vui; c.1466C>A, p.Nan950G; c.1475C>T, p.Zkt027Uuy; c.1477C>T, p.Fho870P; c.1519_1521delATC (Legacy F670ktv), p.Avd189kfh; c.1521_1523delCTT (Legacy G327leg), p.Frp102xlk; c.1545_1546delTA, p.Ihr775L; c.1558G>T, p.Jxe029Uju; c.1572C>A, p.Gxy754J; c.1573C>T, p.Jof022A; c.1585-1G>A (Legacy 1717-1G>A), Intronic; c.1585-8G>A, Intronic; c.1624G>T (Legacy G542X), p.Vbi454N; c.1645A>C, p.Fde606Ujd; c.1646G>A, p.Awq036Cja; c.1647T>G, p.Vhh072Lvm; c.1651G>A, p.Uem823Zcj; c.1652G>A (Legacy G551D), p.Muj095Qgw; c.1654C>T, p.Bvg650Y; c.1657C>T (Legacy R553X), p.Yux398A; c.1675G>A, p.Ktl586Bqu; c.1679G>A, p.Qwi657Tjs; c.1679G>C (Legacy R560T), p.Rqq423Cnh; c.1679+1.6kbA>G, Intronic; c.1680-1G>A, Intronic; c.1703delT, p.Dor832RukxcR2 (aka p.Eft433nn); c.1705T>G, p.Xof036Xyg; c.1721C>A, p.Myh127Ult; c.1753G>T, p.Eng556F; c.1766+1G>A (Legacy 1898+1G>A), Intronic; c.1766+3A>G, Intronic; c.1792_1798delAAAACTA, p.Koj308IvqfyO22 (aka p.Gvs694lk); c.1911delG, p.Mfl684SxemgV05 (aka p.Tdn643pq); c.1923_1931del9insA, p.Phe988NtggaK4 (aka p.Gwi340qh); c.1972_1984del13insAGAAA, p.Abk807NoyfwV6 (aka p.Flo013ku); c.1975delA, p.Ryu561QtrraA0 (aka p.Hvr606xv); c.2011delT, p.Nzc477U; c.2050_2del, p.Ort688ApdgzZ0; c.2050_2delinsG (aka c.205_elinsG), p.Utj280LyzivX76; c.2delA (Legacy 2184delA), p.Adm311NfqinK39; c.2125C>T, p.Hjg459P; c.2128A>T, p.Udc799X; c.2175_2176insA, p.Npr446RydsnA2 (aka p.Ipo732oe); c.2195T>G, p.Lar584D; c.2215delG, p.Wzb590WpjpoF86 (aka p.Dgq911zn); c.2290C>T, p.Wcr695Fae; c.2453delT, p.Led842PkdghE5 (aka p.Zjr157bd); c.2464G>T, p.Wmz358G; c.2490+1G>A, Intronic; c.2491G>T, p.Bdw007R; c.2537G>A, p.Dgc417I; c.2538G>A, p.Gun725O; c.2551C>T, p.Xyb602D; c.2583delT, p.Rrl420VbgduD8 (aka p.Jxv634hl); c.2657+5G>A (Legacy 2789+5G>A), Intronic; c.2668C>T, p.Taj899H; c.2737_2738insG, p.Reh437W; c.2780T>C, p.Ykz589Dta; c.2810_2811insT, p.Nnt729UtktqP04 (aka p.Juw958pb); c.2834C>T, p.Bym143Iva; c.2875delG, p.Wmi104BmmuuH7 (aka p.Eao466vj); c.2908G>C, p.Uer500Vgw; c.2988+1G>A (Legacy 3120+1G>A), Intronic; c.2988G>A, Intronic; c.2989-1G>A, Intronic; c.3039delC, p.Hqk8401KnrpnJ3 (aka p.Jly0227cv); c.3067_3072delATAGTG, p.Wup8465_Qjl6823pep (aka J6048_D1176qmu); c.3140-26A>G, Intronic; c.3194T>C, p.Gkh0806Anx; c.3196C>T, p.Anb4936Giz; c.3197G>A, p.Tkc2316Oeh; c.3230T>C, p.Thz9290Mkw; c.3266G>A, p.Jff1326G; c.3276C>A, p.Qqn2406G; c.3276C>G, p.Mds5698Y; c.3302T>A, p.Txf8509Soh; c.3310G>T, p.Lmy3667D; c.3472C>T, p.Uou8378C; c.3484C>T (Legacy S7992I), p.Kwe4682R; c.3528delC (Legacy 3659delC), p.Stn8580UdnhoN77 (aka p.Vzw4252uf); c.3536_3539del, p.Xsl0765MibppF72 (aka p.Fkc6393ca); c.3587C>G, p.Rdp9269C; c.3611G>A, p.Zoo9018N; c.3612G>A, p.Rhr1773O; c.3659delC, p.Hyw1731WgikmD4 (aka p.Ekv9625zk); c.3691delT, p.Ngx0568WssqrJ7 (aka p.Ywd7451wm); c.3712C>T, p.Aru0886I; c.4758-1037C>T (Legacy 3849+10kbC>T), Intronic; c.3731G>A, p.Dsw5728Ooy; c.3744delA, p.Kuc4658KsatoL0 (aka p.Ael9520pu); c.3752G>A, p.Zgh0798Hzg; c.3763T>C, p.Tpq5939Nmz; c.3764C>A, p.Taj7185U; c.3773_3774insT, p.Itk0759PexoxR0 (aka p.Lsk9691mf); c.3846G>A (Legacy K2894X), p.Sey0192F; c.3873+1G>A, Intronic; c.3909C>G (Legacy Q3110C), p.Kwn1963Jsh; c.3937C>T, p.Fof8301L; c.3964-78_4242+577del, Exons 22-23del; c.4028delG, p.Slg7909XtpejX7 (aka p.Mfb0719el); c.4046G>A, p.Ltm8419Wim; c.4077_4080delTGTTinsAA, p.Nyx3321qxG7 (aka p.Zsw9365jx); c.4111G>T, p.Npu8971L; c.4251delA, p.Rhd6363WajhqU51 (aka p.Vdq7361oi). The IVS-8 variant, c.1210-12[5], will be reported only when R117H is detected or in patients who are reported to be symptomatic. CLINICAL SENSITIVITY: Ashkenazi Anglican 96 percent; 92 percent; 80 percent; 78 percent; Citizen Of [place] 55 percent. METHODOLOGY: Polymerase chain reaction (PCR) and fluorescence monitoring. Analytical Sensitivity & Specificity: 99 percent. LIMITATIONS: Diagnostic errors can occur due to rare sequence variations. Only the 165 pathogenic CFTR variants and 5T variant (listed above) will be interrogated. See Compliance Statement C: [email or web address] Performed by [email or web address], [address] [place] [id number] [email or web address], Robert Fraire MD - Lab. Director Performed By: #### U ARFX #### [facility] [address] [place] [address] CF 5T Variant Not Applicable Normal [facility] Comment on above: Performed By: #### U ARFX #### [facility] [address] [place] [address] CF Allele 1 Negative Normal [facility] Comment on above: Performed By: #### U ARFX #### [facility] [address] [place] [address] CF Allele 2 Negative Normal [facility] Comment on above: Performed By: #### U ARFX #### [facility] [address] [place] [address] CF Specimen Type Whole Blood Normal [facility] Comment on above: Performed By: #### U ARFX #### [facility] [address] [place] [address] CF Symptom No Normal [facility] Comment on above: Performed By: #### U ARFX #### [facility] [address] [place] [address] Ethnicity Normal [facility] Comment on above: Performed By: #### U ARFX #### [facility] [address] [place] [address] Family History No Normal [facility] Comment on above: Performed By: #### U ARFX #### [facility] [address] [place] [address] Drugs of Abuse, Urine(7)on 11-18-2017 Amphetamines/Metam phetamines, Urine Not Detected Normal [facility] Comment on above: Performed By: #### U ARFX #### [facility] [address] [place] [address] Barbiturates, Urine Not Detected Normal [facility] Comment on above: Performed By: #### U ARFX #### [facility] [address] [place] [address] Benzodiazepines, Urine Not Detected Normal [facility] Comment on above: Performed By: #### U ARFX #### [facility] [address] [place] [address] Cannabinoids, Urine Not Detected Normal [facility] Comment on above: Performed By: #### U ARFX #### [facility] [address] [place] [address] Cocaine, Urine Not Detected Normal [facility] Comment on above: Performed By: #### U ARFX #### [facility] [address] [place] [address] Methadone, Urine Not Detected Normal [facility] Comment on above: Performed By: #### U ARFX #### [facility] [address] [place] [address] Opiates, Urine Not Detected Normal [facility] Comment on above: Performed By: #### U ARFX #### [facility] [address] [place] [address] PCP, Urine Not Detected Normal [facility] Comment on above: Result Comment: Urin e toxicology screen results are to be used for medical purposes only. It is recommended that any result reported as Detected be confirmed by a more specific alternative chemical method. Drug Analyzed Cutoff Concentration(ng/mL) Barbiturates 200 Benzodiazepines 200 Cocaine 150 Opiates 300 Amphetamines 500 Cannabinoids 50 Methadone 150 PCP 25 Performed By: #### U ARFX #### [facility] [address] [place] [address] HIV 1 Ab, Conf WBloton 09-18 HIV 1 Ab, Conf WBlot Negative Normal Negative [facility] Comment on above: Result Comment: HIV- [...] Cellular and Tissue-Based Products (HCT/P). Performed by [email or web address], [address] [place] [id number] [email or web address], Robert Fraire MD - Lab. Director Performed By: #### U ARFX #### [facility] [address] [place] [address] Hemoglobin Identificationon 09-18-2018 Hemoglobin A2 2.8 % Normal [facility] Comment on above: Result Comment: HGB A2 values may be falsely elevated in the presence of HGB S Hemoglobin F 0.6 % Normal [facility] Hemoglobin mass conc (Bld) 96.6 % Normal [facility] Hemoglobin mass conc (Bld) SEE COMMENT Normal [facility] Comment on above: Result Comment: Norm al Hepatitis B Surface Antigeno n 09-18-2018 Hepatitis B Surface Antigen NONREACTIVE Normal NONREACTIVE [facility] Comment on above: Result Comment: Carrie ents receiving more than 5 mg/day of biotin may have interf in test results. A sample should be taken no sooner than eight after previous dose. Contact [phone] for additional infor Hepatitis C Antibody w/rfx t o Confirmon 09-18-2018 Hepatitis C Antibody NON-REACTIVE Normal NONREACTIVE [facility] Comment on above: Result Comment: Carrie ents receiving more than 5 mg/day of biotin may have interf in test results. A sample should be taken no sooner than eight after previous dose. Contact [phone] for additional infor Rubella Ab, IgGon 09-18-2018 Rubella Ab, IgG 16 IU/ML Normal [facility] Comment on above: Result Comment: REF VALUES NON-IMMUNE: < 5 EQUIVOCAL: 5-9 IMMUNE: >=10 Syphilis IgG w/Rflx toTiter, TP-PAon 09-18-2018 Syphilis IgG w/Rflx toTiter,TP-PA NON REACTIVE Normal NONREACTIVE [facility] Comment on above: Result Comment: Carrie ents receiving more than 5 mg/day of biotin may have interf in test results. A sample should be taken no sooner than eight after previous dose. Contact [phone] for additional infor TSHon 09-18-2018 Thyrotropin Qn 0.54 mU/L Normal 0.44-3.98 [facility] Comment on above: Performed By: #### U ARFX #### [facility] [address] [place] [address] Type and Screenon 09-18-2018 Group and Rh Positive Normal [facility] Comment on above: Performed By: #### T S3 #### [facility] [address] [place] [address] VZV Ab, IgGon 09-18-2018 VZV Ab, IgG Positive Normal NEGATIVE [facility] Comment on above: Result Comment: INTE [...] >80 Performed By: #### U ARFX #### [facility] [address] [place] [address] Culture, Urine Bacterialon 1 11-09-2017 Culture, Urine Bacterial BILL#: [id number] : 89 AGE: SEX: Primitivo COLÓN SOURCE: URINE COLLECTED: 09/09/18 13:19 ANTIBIOTICS AT MISSY.: RECEIVED : 09/09/18 22:34 SITE: Unspecified R E S U L T S URINE CULTURE,BACTERIAL FINAL 09/10/18 15:13 NO SIGNIFICANT GROWTH. Normal [facility] Comment on above: Performed By: #### C XBUR #### [facility] [address] [place] [address] N. gonorrhoeae/C. trachomati s, Amplifiedon 09-09-2018 Chlamydia trachomatis, Amplified Negative Normal Negative [facility] Comment on above: Performed By: #### G CCHA #### [facility] [address] [place] [address] GC/CHLAM/TRICA Source Swab-Endocerv Normal [facility] Comment on above: Performed By: #### G CCHA #### [facility] [address] [place] [address] Neisseria gonorrhoeae, Amplified Negative Normal Negative [facility] Comment on above: Performed By: #### G CCHA #### [facility] [address] [place] [id number] Urinalysis with Reflex Cultu reon 09-09-2018 Appearance Nom (U) Hazy Normal Clear [facility] Comment on above: Performed By: #### U ARFX #### [facility] [address] [place] [address] Ascorbic Acid Negative Normal Negative [facility] Comment on above: Performed By: #### U ARFX #### [facility] [address] [place] [address] Automated Urine Microscopy Performed Normal [facility] Comment on above: Performed By: #### U ARFX #### [facility] [address] [place] [address] Bacteria LM.HPF #/area (Urine sed) Few Normal None [facility] Comment on above: Performed By: #### U ARFX #### [facility] [address] [place] [address] Bilirubin mass conc Negative Normal Negative [facility] Comment on above: Performed By: #### U ARFX #### [facility] [address] [place] [address] Blood Negative Normal Negative [facility] Comment on above: Performed By: #### U ARFX #### [facility] [address] [place] [address] Color Nom (U) Yellow Normal [facility] Comment on above: Performed By: #### U ARFX #### [facility] [address] [place] [address] Glucose mass conc Negative Normal Negative [facility] Comment on above: Performed By: #### U ARFX #### [facility] [address] [place] [address] Ketones Ql (U) Negative Normal Negative [facility] Comment on above: Performed By: #### U ARFX #### [facility] [address] [place] [address] Leukocytes Esterase Large Abnormal Negative [facility] Comment on above: Performed By: #### U ARFX #### [facility] [address] [place] [address] Mucous Rare Normal None [facility] Comment on above: Performed By: #### U ARFX #### [facility] [address] [place] [address] Nitrite Ql (U) Negative Normal Negative [facility] Comment on above: Performed By: #### U ARFX #### [facility] [address] [place] [address] pH (Bld) 6.0 Normal 5.0-9.0 [facility] Comment on above: Performed By: #### U ARFX #### [facility] [address] [place] [address] Protein mass conc (U) Negative Normal Negative [facility] Comment on above: Performed By: #### U ARFX #### [facility] [address] [place] [address] RBC 5 /[HPF] Normal 0-3 [facility] Comment on above: Performed By: #### U ARFX #### [facility] [address] [place] [address] Specific gravity Relative Density (U) 1.019 Normal 1.003-1.035 [facility] Comment on above: Performed By: #### U ARFX #### [facility] [address] [place] [address] Squamous Epithelial Cells 12 /[HPF] Normal 0-5 [facility] Comment on above: Performed By: #### U ARFX #### [facility] [address] [place] [address] Urobilinogen Qn (U) 2.0 mg/dL Abnormal Negative [facility] Comment on above: Performed By: #### U ARFX #### [facility] [address] [place] [address] WBC 6 /[HPF] Normal 0-5 [facility] Comment on above: Performed By: #### U ARFX #### [facility] [address] [place] [address] Vaginal Pathogen DNAon 09-09 Estrada Vag DNA Probe Positive Abnormal Negative [facility] Comment on above: Performed By: #### V AGPA #### [facility] [address] [place] [address] Protein mass conc Positive Abnormal Negative [facility] Comment on above: Performed By: #### V AGPA #### [facility] [address] [place] [address] Trich Vag DNA Probe Positive Abnormal Negative [facility] Comment on above: Performed By: #### V AGPA #### [facility] [address] [place] [address] Culture, Urine Bacterialon 0 07-30-2018 Culture, Urine Bacterial BILL#: [id number] : 89 AGE: SEX: F CAROL SOURCE: URINE COLLECTED: 07/30/18 17:03 ANTIBIOTICS AT MISSY.: RECEIVED : 07/30/18 22:34 SITE: Unspecified R E S U L T S URINE CULTURE,BACTERIAL FINAL 07/31/18 15:35 NO SIGNIFICANT GROWTH. Normal [facility] Comment on above: Performed By: #### C XBUR #### [facility] [address] [place] [address] N. gonorrhoeae/C. trachomati s, Amplifiedon 07-30-2018 Chlamydia trachomatis, Amplified Negative Normal Negative [facility] Comment on above: Performed By: #### G CCHA #### [facility] [address] [place] [address] GC/CHLAM/TRICA Source Urine Normal [facility] Comment on above: Performed By: #### G CCHA #### [facility] [address] [place] [address] Neisseria gonorrhoeae, Amplified Negative Normal Negative [facility] Comment on above: Performed By: #### G CCHA #### [facility] [address] [place] [address] Urinalysis with Reflex Cultu reon 07-30-2018 Appearance Nom (U) Clear Normal Clear [facility] Comment on above: Performed By: #### U ARFX #### [facility] [address] [place] [address] Ascorbic Acid Negative Normal Negative [facility] Comment on above: Performed By: #### U ARFX #### [facility] [address] [place] [address] Automated Urine Microscopy Performed Normal [facility] Comment on above: Performed By: #### U ARFX #### [facility] [address] [place] [address] Bacteria LM.HPF #/area (Urine sed) Rare Normal None [facility] Comment on above: Performed By: #### U ARFX #### [facility] [address] [place] [address] Bilirubin mass conc Negative Normal Negative [facility] Comment on above: Performed By: #### U ARFX #### [facility] [address] [place] [address] Blood Negative Normal Negative [facility] Comment on above: Performed By: #### U ARFX #### [facility] [address] [place] [address] Color Nom (U) Yellow Normal [facility] Comment on above: Performed By: #### U ARFX #### [facility] [address] [place] [address] Glucose mass conc Negative Normal Negative [facility] Comment on above: Performed By: #### U ARFX #### [facility] [address] [place] [address] Ketones Ql (U) Negative Normal Negative [facility] Comment on above: Performed By: #### U ARFX #### [facility] [address] [place] [address] Leukocytes Esterase Moderate Abnormal Negative [facility] Comment on above: Performed By: #### U ARFX #### [facility] [address] [place] [address] Mucous Rare Normal None [facility] Comment on above: Performed By: #### U ARFX #### [facility] [address] [place] [address] Nitrite Ql (U) Negative Normal Negative [facility] Comment on above: Performed By: #### U ARFX #### [facility] [address] [place] [address] pH (Bld) 6.0 Normal 5.0-9.0 [facility] Comment on above: Performed By: #### U ARFX #### [facility] [address] [place] [address] Protein mass conc (U) Negative Normal Negative [facility] Comment on above: Performed By: #### U ARFX #### [facility] [address] [place] [address] RBC 3 /[HPF] Normal 0-3 [facility] Comment on above: Performed By: #### U ARFX #### [facility] [address] [place] [address] Specific gravity Relative Density (U) 1.016 Normal 1.003-1.035 [facility] Comment on above: Performed By: #### U ARFX #### [facility] [address] [place] [address] Squamous Epithelial Cells 3 /[HPF] Normal 0-5 [facility] Comment on above: Performed By: #### U ARFX #### [facility] [address] [place] [address] Urobilinogen Qn (U) >=4.0 Abnormal Negative [facility] Comment on above: Performed By: #### U ARFX #### [facility] [address] [place] [address] WBC 16 /[HPF] Normal 0-5 [facility] Comment on above: Performed By: #### U ARFX #### [facility] [address] [place] [address] FOOT RT 3 OR MORE VWon 05-20 FOOT RT 3 OR MORE VW DATE OF EXAM: May 19 2018 11:20PM CLINICAL HISTORY/ Patient Name: JULIETTE HERNÁNDEZ STUDY: FOOT RT 3 OR MORE VW; 05/19/2018 11:20 pm INDICATION: Trauma. Pain COMPARISON: None. ACCESSION NUMBER(S): [id number] ORDERING CLINICIAN: LUIS CASTRO FINDINGS: Osseous structures and soft tissues appear normal. No fracture or dislocation is noted CONCLUSION: IMPRESSION: Normal right foot Normal [facility] Vital Signs Date Time Vital Sign Value Performing Clinician Facility 02-21-2024 10:39-0400 Body height 167.6 cm Chacorta Erwin MD Work Phone: [facility] 02-21-2024 10:39-0400 Body mass index (BMI) [Ratio] 22.6 kg/m2 Chacorta Erwin MD Work Phone: [facility] 02-21-2024 10:39-0400 Body temperature 97.3 [degF] Chacorta Erwin MD Work Phone: [facility] 02-21-2024 10:39-0400 Body weight 63.5 kg Chacorta Erwin MD Work Phone: [facility] 02-21-2024 10:39-0400 Diastolic blood pressure 54 mm[Hg] Chacorta Erwin MD Work Phone: [facility] 02-21-2024 10:39-0400 Heart rate 64 /min Chacorta Erwin MD Work Phone: [facility] 02-21-2024 10:39-0400 Respiratory rate 16 /min Chacorta Erwin MD Work Phone: [facility] 02-21-2024 10:39-0400 SaO2% (BldA) [Mass fraction] 100 % Chacorta Erwin MD Work Phone: [facility] 02-21-2024 10:39-0400 Systolic blood pressure 104 mm[Hg] Chacorta Erwin MD Work Phone: [facility] 06-19-2023 23:30-0400 Diastolic blood pressure 63 mm[Hg] [facility] 06-19-2023 23:30-0400 Heart rate 83 /min [facility] 06-19-2023 23:30-0400 Respiratory rate 15 /min [facility] 06-19-2023 23:30-0400 SaO2% (BldA) [Mass fraction] 96 % [facility] 06-19-2023 23:30-0400 Systolic blood pressure 102 mm[Hg] [facility] 06-19-2023 21:44-0400 Body height 167.6 cm [facility] 06-19-2023 21:44-0400 Body mass index (BMI) [Ratio] 22.6 kg/m2 [facility] 06-19-2023 21:44-0400 Body temperature 98.01 [degF] [facility] 06-19-2023 21:44-0400 Body weight 63.5 kg [facility] 01-09-2023 16:18-0500 Body height 167.64 cm No PCP None [facility] Work Phone: 01-09-2023 16:18-0500 Body mass index (BMI) [Ratio] 24.59 kg/m2 No PCP None [facility] Work Phone: 01-09-2023 16:18-0500 Body surface area Derived from formula 1.78 m2 No PCP [facility] Work Phone: 01-09-2023 16:18-0500 Body weight 69.12 kg No PCP None [facility] Work Phone: 01-09-2023 16:18-0500 Diastolic blood pressure 60 mm[Hg] No PCP None [facility] Work Phone: 01-09-2023 16:18-0500 Systolic blood pressure 116 mm[Hg] No PCP None [facility] Work Phone: 11-21-2022 05:37-0500 Diastolic blood pressure 53 mm[Hg] No Pcp Required [facility] [place] 11-21-2022 05:37-0500 Heart rate 85 /min No Pcp Required [facility] 11-21-2022 05:37-0500 Respiratory rate 18 /min No Pcp Required [facility] 11-21-2022 05:37-0500 SaO2% (BldA) [Mass fraction] 100 % No Pcp Required [facility] [place] 11-21-2022 05:37-0500 Systolic blood pressure 100 mm[Hg] No Pcp Required [facility] [place] 11-21-2022 03:56-0500 Body height 167.6 cm [facility] 11-21-2022 03:56-0500 Body temperature 97.7 [degF] No P[facility] 11-21-2022 03:56-0500 Body weight 68.1 kg No Pcp Required [place] [facility] 09-08-2022 22:01-0400 Diastolic blood pressure 61 mm[Hg] No Pcp Required [facility] [place] 09-08-2022 22:01-0400 Heart rate 69 /min No Pcp [facility] 09-08-2022 22:01-0400 Respiratory rate 16 /min No Pcp Required [facility] [place] [facility] 09-08-2022 22:01-0400 SaO2% (BldA) [Mass fraction] 100 % No Pcp Required [facility] [place] 09-08-2022 22:01-0400 Systolic blood pressure 121 mm[Hg] No Pcp Required [facility] [place] 09-08-2022 17:31-0400 Body height 167.6 cm No [facility] 09-08-2022 17:31-0400 Body temperature 98.24 [degF] No Pcp Required [facility] [place] [facility] 09-08-2022 17:31-0400 Body weight 66 kg No Pcp [facility] 06-26-2021 16:54-0400 Diastolic blood pressure 65 mm[Hg] No Pcp Required [facility] [place] 06-26-2021 16:54-0400 Heart rate 70 /min No P[facility] 06-26-2021 16:54-0400 Respiratory rate 16 /min No Pcp Required [facility] [place] [facility] 06-26-2021 16:54-0400 SaO2% (BldA) [Mass fraction] 97 % No Pcp Required [facility] [place] 06-26-2021 16:54-0400 Systolic blood pressure 112 mm[Hg] No Pcp Required [facility] [place] 06-26-2021 11:14-0400 Body height 167.6 cm No Pcp Required [place] [facility] 06-26-2021 11:14-0400 Body temperature 98.06 [degF] No Pcp Required [place] [facility] 06-26-2021 11:14-0400 Body weight 71.9 kg No Pcp Required [place] [facility] 10-03-2020 11:52-0500 BMI (Body Mass Index) 24.14 kg/m2 [facility]: 10-03-2020 11:52-0500 Body Temperature 97 [degF] [facility] Work Phone: 10-03-2020 11:52-0500 Body weight 67.84 kg [facility] Work Phone: 10-03-2020 11:52-0500 BP Diastolic 76 mm[Hg] Cally Meyer [facility] Work Phone: Comment on above: Location: LUE; Position: Sitting 10-03-2020 11:52-0500 BP Systolic 104 mm[Hg] Cally Meyer [facility] Work Phone: Comment on above: Location: LUE; Position: Sitting 10-03-2020 11:52-0500 BSA (Body Surface Area) 1.77 m2 Cally Meyer [facility] Work Phone: 10-03-2020 11:52-0500 Height 167.64 cm Cally Meyer [facility] Work Phone: 06-02-2020 14:04-0400 BMI (Body Mass Index) 22.76 kg/m2 Chica Camposa [id number] [facility] Work Phone: 06-02-2020 14:04-0400 Body Temperature 98.1 [degF] Chica Wisdom NK-[id number]-Vogo [address] [facility] Work Phone: 06-02-2020 14:04-0400 Body weight 63.96 kg Chica Wisdom JC-[id number]-[id number] [address] [facility] Work Phone: 06-02-2020 14:04-0400 BP Diastolic 72 mm[Hg] Chica Wisdom [id number]-PTPB-[id number] [address] [facility] Work Phone: 06-02-2020 14:04-0400 BP Systolic 104 mm[Hg] Chica Wisdom HM-[id number]-[id number] [address] [facility] Work Phone: 06-02-2020 14:04-0400 BSA (Body Surface Area) 1.72 m2 Chica Wisdom [id number]-OPPH-Kbzp [facility] Work Phone: 06-02-2020 14:04-0400 Pulse (Heart Rate) 60 /min Chica Wisdom GS-SIHX-Mkee [facility] Work Phone: 06-02-2020 14:04-0400 Pulse Oximetry 99 % Chica Wisdom HD-EHFJ-[id number] [address] [facility] Work Phone: 06-02-2020 14:04-0400 Respiratory Rate 16 /min Chica Wisdom [id number]-CHKI-[id number] [address] [facility] Work Phone: Encounters Encounter Date Encounter Type Care Provider Facility Start: 12-08-2024 End: 12-08-2024 [facility] Start: 12-08-2024 End: 12-08-2024 Subsequent hospital visit by physician Sunny [facility] Start: 12-04-2024 End: 12-04-2024 [facility] Start: 12-04-2024 End: 12-04-2024 Subsequent hospital visit by physician Sunny Lilly MD [facility] Start: 10-14-2024 End: 10-14-2024 [facility] Start: 09-28-2024 End: 09-28-2024 ambulatory [facility] Start: 09-28-2024 End: 09-28-2024 Subsequent hospital visit by physician Sunny Lilly MD Work Phone: [facility] Start: 05-26-2024 End: 05-26-2024 ambulatory [facility] Start: 05-26-2024 End: 05-26-2024 Subsequent hospital visit by physician Sunny Lilly MD Work Phone: [facility] Start: 05-08-2024 End: 05-08-2024 ambulatory [facility] Start: 05-04-2024 End: 05-04-2024 ambulatory [facility] Start: 04-24-2024 End: 04-24-2024 Emergency department patient visit [facility] Start: 02-21-2024 End: 02-21-2024 Emergency department patient visit NO ASSIGNED PCP GENERIC PROVIDER [facility] Start: 02-21-2024 End: 02-21-2024 Emergency department patient visit Chacorta Erwin MD Work Phone: [facility] [place] Medicine Comment on above: Trichomonas exposure (Primary Dx); Rash Start: 06-19-2023 End: 06-20-2023 Emergency department patient visit [facility] Start: 06-19-2023 End: 06-20-2023 Emergency department patient visit [facility] ED Comment on above: Multiple drug overdo se, accidental or unintentional, initial encounter (Primary Dx) Start: 05-29-2023 End: 05-29-2023 Emergency department patient visit [facility] Start: 01-09-2023 Office outpatient vi sit 15 minutes No PCP None [facility] Work Phone: Start: 01-09-2023 Patient encounter procedure No PCP None [facility] Work Phone: Start: 01-09-2023 ambulatory MD CALLY MEYER Facility:[id number] Start: 12-19-[address] Chacorta Erwin Facility:[id number] Start: 11-22-2022 Patient encounter procedure No PCP [facility] Work Phone: Start: 11-22-[address] Chacorta Erwin Facility:[id number] Start: 11-21-2022 End: 11-21-2022 Emergency department patient visit Lilian Wilkins [place] [facility] 05 Start: 11-20-2022 End: 11-20-2022 Emergency department patient visit Elinor Sagastume [place] [facility] 04 Start: 10-08-2022 End: 10-08-2022 Emergency department patient visit [facility] Start: 09-08-2022 End: 09-08-2022 Emergency department patient visit Kirk Roldan [place] [facility] 01 Start: 06-26-2021 End: 06-26-2021 Emergency department patient visit Reta Sanchez [place] [facility] 25 Start: 10-03-2020 Patient encounter procedure Cally Meyer [facility] Work Phone: Start: 09-05-2020 Patient encounter procedure Cally Meyer -[facility] Work Phone: Start: 06-10-2020 Patient encounter procedure Cally Meyer -[facility] Work Phone: Start: 06-02-2020 Patient encounter procedure Chica Wisdom [id number]-BCVQ-Vfvb [facility] Work Phone: Start: 10-26-2019 Patient encounter procedure Chica Wisdom YP-QGEV-Ocki [facility] Work Phone: Start: 08-25-2019 Patient encounter procedure Chica Wisdom FX-JCWY-Cenh [facility] Work Phone: Start: 07-16-2019 Patient encounter procedure Chica Wisdom GW-BXNH-Lvqy [facility] Work Phone: Start: 06-11-2019 Patient encounter procedure Chica Wisdom RA-LVMN-Muuy [facility] Work Phone: Start: 04-22-2019 Patient encounter procedure Chica Wisdom XP-YVKA-Ewas [facility] Work Phone: Start: 01-19-2019 End: 01-21-2019 Evaluation and management of inpatient KEYSHA BAH Facility:[facility] Start: 01-15-2019 Patient encounter procedure Chica Wisdom EI-TYLX-Gnkh [facility] Work Phone: Start: 01-08-2019 Patient encounter procedure Chica Wisdom OR-SWYP-Fino [facility] Work Phone: Start: 01-01-2019 Patient encounter procedure Chica Wisdom IE-CLEC-Rjju [facility] Work Phone: Start: 12-25-2018 Patient encounter procedure KEYSHA BAH Facility:[facility] Start: 12-25-2018 Patient encounter procedure Chica Wisdom CI-OCXT-Xgil [facility] Work Phone: Start: 12-18-2018 Patient encounter procedure Chica Wisdom MF-KTSK-Niav [facility] Work Phone: Start: 12-11-2018 End: 12-11-2018 Patient encounter procedure KEYSHA BAH Facility:[facility] Start: 12-04-2018 Patient encounter procedure Chica Wisdom XG-PYJL-Lsfk [facility] Work Phone: Start: 12-01-2018 End: 12-01-2018 Patient encounter procedure KEYSHA BAH Facility:[facility] Start: 11-27-2018 Patient encounter procedure Chica Wisdom [id number] [facility] [facility] Work Phone: Start: 11-13-2018 Patient encounter procedure KEYSHA BAH Facility:[facility] Start: 11-13-2018 Patient encounter procedure KEYSHA WHITEUN Facility: Start: 10-24-2018 Patient encounter procedure KEYSHA BAH Facility:[facility] Start: 10-16-2018 Patient encounter procedure KEYSHA BAH Facility:[facility] Start: 10-07-2018 Patient encounter procedure Chica Wisdom [id number] [facility] [facility] Work Phone: Start: 09-18-2018 Patient encounter procedure KEYSHA BAH Facility:[facility] Start: 09-18-2018 Patient encounter procedure KEYSHA BAH Facility:7 Start: 09-18-2018 Patient encounter procedure Chica Wisdom [id number] [facility] [facility] Work Phone: Start: 09-09-2018 End: 09-09-2018 Emergency department patient visit NO FAMILY DOCTOR NO FAMILY DOCTOR Facility:[facility] Start: 07-30-2018 End: 07-30-2018 Emergency department patient visit NO FAMILY DOCTOR NO FAMILY DOCTOR Facility:[facility] Start: 05-20-2018 End: 05-20-2018 Emergency department patient visit BRAULIO LILLY Facility:[facility] Menarche No PCP None [facility] Work Phone: Patient encounter status No PCP None [facility] Work Phone: Procedures Date Procedure Procedure Detail Performing Clinician Start: 12-08-2024 Comprehensive metabo lic panel Sharif Ivory TOOLMAKER - RN OTOLARYNGOLOGY Work Phone: Start: 12-08-2024 Hepatitis b surf ant ibody hbsab Sharif Ivory TOOLMAKER - RN OTOLARYNGOLOGY Work Phone: Start: 12-08-2024 T. PALLIDUM AB Sharif R icker TOOLMAKER - RN OTOLARYNGOLOGY Work Phone: Start: 12-04-2024 Smr prim src wet cecilia nt nfct agt Sharif Ivory TOOLMAKER - RN OTOLARYNGOLOGY Work Phone: Start: 09-28-2024 Smr prim src wet cecilia nt nfct agt Sharif Ivory TOOLMAKER - RN OTOLARYNGOLOGY Work Phone: Start: 05-26-2024 Smr prim src wet cecilia nt nfct agt Sharif Ivory TOOLMAKER - RN OTOLARYNGOLOGY Work Phone: Start: 02-21-2024 C. TRACHOMATIS + [...] above: Performed By: #### U ARFX #### [facility] [address] [place] [address] Start: 09-18-2018 Antibody screen BRAULIO LILLY Comment on above: Performed By: #### T S3 #### [facility] [address] [place] [address] Bilateral tubal ligation No PCP None Dilation and curettage Claudia Wisdom Plan of Treatment Date Care Activity Detail Author Start: 2054 RSV patient s and/or patients aged 60+ years (1 - 1-dose 60+ series) RSV patients and/or patients aged 60+ years (1 - 1-dose 60+ series) [facility] Start: 2044 Zoster Vaccines (1 o f 2) Zoster Vaccines (1 of 2) [facility] Start: 11-13-2028 DTaP/Tdap/Td vaccine (3 - Td or Tdap) DTaP/Tdap/Td vaccine (3 - Td or Tdap) [facility] Start: 11-13-2028 DTaP/Tdap/Td Vaccine s (3 - Td or Tdap) DTaP/Tdap/Td Vaccines (3 - Td or Tdap) [facility] Start: 07-05-2024 COVID-19 Vaccine ( season) COVID-19 Vaccine ( season) [facility] Start: 07-05-2024 Influenza vaccination Influenz a Vaccine (Season Ended) [facility] Start: 2024 Screening for malign ant neoplasm of cervix [facility] Start: 06-04-2024 Influenza vaccination Flu vaccine (# 1) [facility] Start: 07-05-2023 COVID-19 Vaccine ( season) COVID-19 Vaccine ( season) [facility] Start: 06-04-2023 Influenza vaccination Flu vaccine (# 1) [facility] Start: 02-20-2023 FUV, Provider: Cally Meyer, Status: Pen, Time: 9:15 AM FUV, Provider: Cally Meyer, Status: Pen, Time: 9:15 AM [facility] Work Phone: Start: 12-19-2022 FUV, Provider: Chacorta Erwin, Status: Pen, Time: 2:45 PM FUV, Provider: Chacorta Erwin, Status: Pen, Time: 2:45 PM [facility] Work Phone: Start: 09-08-2022 Syncope Syncope Date: 08-Sep-2022 [facility], [place]) Start: 2015 Screening for malign ant neoplasm of cervix [facility] Start: 2013 Hepatitis B vaccine (1 of 3 - 19+ 3-dose series) Hepatitis B vaccine (1 of 3 - 19+ 3-dose series) [facility] Start: 2013 Hepatitis B Vaccines (1 of 3 - 19+ 3-dose series) Hepatitis B Vaccines (1 of 3 - 19+ 3-dose series) [facility] Start: 2012 Hepatitis C screening [facility] Start: 2009 HIV screening HIV screen [facility] Start: 2007 Varicella vaccination Varicell a Vaccines (1 of 2 - 13+ 2-dose series) [facility] Start: 2007 Varicella vaccine (1 of 2 - 13+ 2-dose series) Varicella vaccine (1 of 2 - 13+ 2-dose series) [employer] Start: 2006 Depression Screen Depression Screen [facility] Start: 1995 MMR Vaccines (1 of 1 - Standard series) MMR Vaccines (1 of 1 - Standard series) [facility] Start: 1995 Varicella vaccine (1 of 2 - 2-dose childhood series) Varicella vaccine (1 of 2 - 2-dose childhood series) [facility] Start: 01-01-1995 COVID-19 Vaccine (#1) COVID-19 Vacci ne (#1) [facility] Start: 1994 Hepatitis B vaccine (1 of 3 - 3-dose series) Hepatitis B vaccine (1 of 3 - 3-dose series) [facility] [employer] [facility] Start: 1994 HIV screening HIV Screening [facility] Start: 1994 Lipid panel Lipid Panel [facility] Start: 1994 Yearly Adult Physical Yearly Adult P hysical [facility] C.trachomatis N.gonorrhoeae DNA C.trachomatis N.gonorrhoeae DNA Microbiology Routine 09/28/2024 6:55 AM EST [employer] Work Phone: C.trachomatis N.gonorrhoeae DNA C.trachomatis N.gonorrhoeae DNA Microbiology Routine 12/04/2024 7:45 AM EST [employer] [facility] Work Phone: End: 02-21-2024 Chlamydia trachomatis and Neisseria gonorrhoeae DNA [Identifier] in Unspecified specimen by JOSE R with probe detection [facility] [employer] Work Phone: Comment on above: Once (Lab) for 1 Occ urrences starting 02/21/2024 until 02/21/2024 EKG 12 Lead EKG 12 Lead ECG STAT 06/19/2023 9:49 PM EDT [employer] Work Phone: End: 12-08-2024 Hepatitis C RNA, quantitative, PCR [employer] [facility] Work Phone: Comment on above: Once for 1 Occurrenc es starting 12/08/2024 until 12/08/2024 End: 02-21-2024 Trichomonas vaginalis rRNA [Presence] in Unspecified specimen by JOSE R with probe detection [facility] Work Phone: Comment on above: Once (Lab) for 1 Occ urrences starting 02/21/2024 until 02/21/2024 Immunizations Immunization Date Immunization Notes Care Provider Tia johnson 11-13-2018 tetanus toxoid, redu wilson diphtheria toxoid, and acellular pertussis vaccine, adsorbed Chica Wisdom [id number] [address] [facility] Work Phone: Comment on above: Series: 08-05-2015 influenza virus vacc ine, unspecified formulation No PCP [facility] Work Phone: Comment on above: Series: 08-05-2015 influenza, seasonal, injectable Chica Wisdom [id number] [address] [facility] Work Phone: 08-02-2015 tetanus toxoid, redu wilson diphtheria toxoid, and acellular pertussis vaccine, adsorbed Chica Wisdom GP-[id number]-[id number] [address] [facility] Work Phone: Comment on above: Series: Payers Date Payer Category Payer Unknown [id number] 2019 Unknown 2019 Unknown [id number] 1994 Unknown [id number] 2.16.8 40.1.627975.3.579.2.355 1994 Unknown [id number] 2.16.8 40.1.500002.3.579.2.355 1994 Unknown [id number] 2.16.8 40.1.041336.3.579.2.355 1994 Unknown [id number] 2.16.8 40.1.419694.3.579.2.355 1994 Unknown [id number] 2.16.8 40.1.085578.3.579.2.355 1994 Unknown [id number] 2.16.8 40.1.734564.3.579.2.355 1994 Unknown [id number] 2.16.8 40.1.704214.3.579.2.355 1994 Unknown [id number] 2.16.8 40.1.353319.3.579.2. 1994 Unknown [id number] 2.16.8 40.1.343642.3.579.2. 1994 Unknown [id number] 2.16.8 40.1.867410.3.579.2. 1994 Unknown [id number] 2.16.8 40.1.813482.3.579.2. 1994 Unknown [id number] 2.16.8 40.1.892775.3.579.2. 1994 Unknown [id number] 2.16.8 40.1.929841.3.579.2. 1994 Unknown [id number] 2.16.8 40.1.498336.3.579.2.1067 1994 Unknown [id number] 2.16.8 40.1.779250.3.579.2.1067 1994 Unknown [id number] 2.16.8 40.1.292368.3.579.2.1067 1994 Unknown [id number] 2.16.8 40.1.398269.3.579.2.1067 1994 Unknown [id number] 2.16.8 40.1.831222.3.579.2.1067 1994 Unknown [id number] 2.16. 840.1.710645.3.579.2.356 1994 Unknown [id number] 2.16.8 40.1.986076.3.579.2. 1994 Unknown [id number] 2.16.8 40.1.586052.3.579.2.182 1994 Unknown [id number] 2.16.8 40.1.097991.3.579.2.182 1994 Unknown [id number] 2.16.84 0.1.840019.3.579.2.1246 1994 Unknown [id number] 2.16.8 40.1.471053.3.579.2.173 1994 Unknown [id number] 2.16.8 40.1.313527.3.579.2.173 1994 Unknown [id number] 2.16.8 40.1.094302.3.579.2.173 1994 Unknown [id number] 2.16.8 40.1.935178.3.579.2.173 1994 Unknown [id number] 2.16.8 40.1.241564.3.579.2.173 1994 Unknown [id number] 2.16.8 40.1.171684.3.579.2.173 1994 Unknown [id number] 2.16.8 40.1.820897.3.579.2.173 1994 Unknown [id number] 2.16.8 40.1.526648.3.579.2.173 Social History Date Type Detail Facility Assertion Tobacco smoking consumption unknown (finding) [id number] [facility] Work Phone: Tobacco smoking consumption unknown [facility] [place] Start: 04-24-2024 Caffeine use Caffeine use [facility] Work Phone: Start: 10-08-2022 End: 02-21-2024 Tobacco smoking status NHIS Never smoked tobacco [employer] Start: 10-08-2022 End: 02-21-2024 Tobacco use and exposure Smokeless tobacco non-user [employer] Start: 10-08-2022 End: 04-24-2024 Alcohol intake Current drinker of alcohol (finding) [employer] Start: 06-20-2023 History SDOH Alcohol Frequency 3 [facility] Start: 06-20-2023 History SDOH Alcohol Std Drinks 2 [employer] Start: 1995 Sex Assigned At Not on file [employer] Start: 02-21-2024 Alcoholic beverage intake Lifetime non-drinker (finding) [facility] Work Phone: Start: 04-24-2024 Gender identity Not on file [facility] Work Phone: Start: 02-11-2024 End: 02-21-2024 Exposure to SARS-CoV-2 (event) Not sure [facility] Work Phone: How often to you hav e a drink containing alcohol? Never [employer] How many standard drinks containing alcohol do you have on a typical day? Patient does not drink [employer] Medical Equipment Procedure Code Equipment Code Equipment Original Text Equipment Identifier Dates Clip, [place], Tubal, Filshie Case [id number] Start: 06-18-2019 Comment on above: Description: Convert ed from [facility]. Please see archived information for full log information. Functional Status Date Assessment Result Facility NEGATED: Highlighted row Functional performance Functional status health issues are not documented Disease [id number] [facility] Work Phone: Mental Status Date Assessment Result Facility NEGATED: Highlighted row Cognitive function [Interpretation] Cognitive status health issues are not documented Disease [id number] [facility] Work Phone: Emergency department Note [...] Diagnosis Date Anemia complicating , unspecified trimester ([facility]) Anemia of mother in Chlamydial infection, unspecified Positive Chlamyida test Encounter for screening for infections with a predominantly sexual mode of transmission Screen for STD (sexually transmitted disease) Gonococcal infection, unspecified Gonorrhea in female Missed ([facility]) Missed Other abnormal findings in urine [...] PA-C 02/21/24 1101 documented in this encounter [facility] Work Phone: Physician Emergency department Note 02-21-2024 [...] Procedure Procedures Radha Lima PA-C 02/21/24 1101 [facility] Work Phone: Progress note 10-16-2021 Note Date & Type Note Facility 10-16-2021 Note HNO ID: [id number] Author: Juan Antonio Esqueda PA-C Service: ? Author Type: Physician Flake Cutter Operator Type: Progress Notes Filed: 10/16/2021 10:24 AM Note Text: This note was created using [employer]. Subjective Juliette Hernández is a 26 year [...] Exam Vitals reviewed. Exam conducted with a electro mechanical engineer present (Latia Pantoja MA present for exam). [...] Abstain from se (more content not included)... [facility] Progress note 07-15-2021 Note Date & Type Note Facility 07-15-2021 Note HNO ID: [id number] Author: Rubina Lala PA-C Service: ? Author Type: Physician Flake Cutter Operator Type: Progress Notes Filed: 07/15/2021 1:58 [...] while awaiting COVID results. - 2019 CORONAVIRUS [facility] Evaluation note Note Date & Type Note Facility Evaluation note Diagnosis Multiple drug overdose, accidental or unintentional, initial encounter- Primary documented in this encounter [facility] Evaluation note Note Date & Type Note Facility Evaluation note Diagnosis Trichomonas exposure- Primary Rash Rash and other nonspecific skin eruption documented in this encounter [facility] Work Phone: History of Present illness Narrative [...] grammatical areas may persist related to the [employer] softwareChacorta Erwin MDOffice: . [facility] Work Phone: History of Present illness [...] trigger point injection Botox injection Kerry therapy [facility] Work Phone: Hospital Discharge instructions Attachments Note Date & Type Note Facility Hospital Discharge instructions The following attachments cannot be sent through Care Everywhere.Drug Overdose: Multidrug (Turkmen)documented in this encounter [facility] Discharge instructions Attachments Note Date & Type Note Facility Hospital Discharge instructions The following attachments cannot be sent through Care Everywhere.Skin Rash ED (Turkmen)Sexually transmitted infections (Turkmen)documented in this encounter [facility] Work Phone: Summary Purpose Family History No [...] intercourse and with insert of tampon * electro mechanical engineer mariam rma * Est pt here for pain with intercourse and with insert of tampon * electro mechanical engineer mariam rma Additional Source Comments INFORMATION SOURCE (unrecogn ized section and content) DATE CREATED AUTHOR 01/26/2019 [facility] DATE CREATED AUTHOR AUTHOR'S ORGANIZ ATION 12/11/2021 [facility] DATE CREATED AUTHOR AUTHOR'S ORGANIZ ATION 01/03/2023 [facility] DATE CREATED AUTHOR AUTHOR'S ORGANIZ ATION 01/11/2023 [facility] DATE CREATED AUTHOR AUTHOR'S ORGANIZ ATION 01/12/2023 [facility] DATE CREATED AUTHOR AUTHOR'S ORGANIZ ATION 06/21/2023 [facility] DATE CREATED AUTHOR AUTHOR'S ORGANIZ ATION 02/22/2024 [facility] DATE CREATED AUTHOR AUTHOR'S ORGANIZ ATION [facility]20[facility] <item><item><item><item><item> Privacy Markings (unrecogniz ed [...] Care Teams (unrecognized sec tion and content) Grain Drier Operator Relationship Specialty Start Date End Date Chacorta Erwin MD [address] [facility], [address] [place] [id number] PCP - [facility] PCP 08/04/23 Generic Provider, No [place] [address] PCP - General District Claims Manager 02/21/24 Grain Drier Operator Relationship Specialty Start Date End Date Sunny Lilly MD [address] [place] [address] PCP - General Neurology 06/25/23 Grain Drier Operator Relationship Specialty Start Date End Date Sunny Lilly MD [address] [place], [place] [id number] PCP - General Neurology 06/25/23 Grain Drier Operator Relationship Specialty Start Date End Date Sunny Lilly MD [address] [place], [place] [id number] PCP - General Neurology 06/25/23 FOR RECORDS [...] BE BASED ON THE PRIMARY CLINICAL RECORDS. [facility] [employer] [facility]. provides no warranty or guarantee of the accuracy or completeness of information in this document.
== END 2024-12-24 10:58 | disposition home or self-care (01) ==
LOC: RAD 10:59
PROVIDERS: PCP Nurse Practitioner Family; Visit Provider Nurse Practitioner Family
DX: J93.83 Other pneumothorax (principal)
CPT/HCPCS: 71046

== ENCOUNTER 2024-12-31 16:04 | Emergency (ER) | payer OTHER, SELFPAY ==
[2024-12-31] VITALS (20 sets, daily range): BP systolic 107–150; BP diastolic 55–90; PULSE 64–103; TEMP 36.7; O2SAT 95–98; BMI 30.7
--- NOTE | 2024-12-31 16:20 | XR_ITS ---
The [address] [address] Patient Name: YANI HAGAN MRN: [id number] date: 1995 Sex: F Assigned Patient Location: ER Current Patient Location: ER Accession/Order Number: [id number] Exam Date: 12/31/2024 17:18 Report Date: 12/31/2024 17:21 At the request of: FIFI BARBA Procedure: XR chest insp exp XR chest insp exp 12/31/2024 4:36 PM SIGNS AND SYMPTOMS: ^right sided pain with breathing, hx of pneumothora PROTOCOL: Frontal radiographs of the chest COMPARISON: 12/24/2024 FINDINGS: The trachea is midline. The heart and mediastinal structures are within normal limits. There is a moderate to large right-sided pneumothorax. The lung parenchyma is clear otherwise. The bony thorax is intact. XR/XR chest insp exp IMPRESSION: There is a moderate to large right-sided pneumothorax. These findings were discussed with Dr. Ashley at 5:20 PM on 12/31/2024 Impression dictated by: Rashard Bettencourt M.D.12/31/2024 5:21 PM Dictation Location: [place] [address] Electronically authenticated by: [id number] Y Date: 12/31/2024 17:21
--- NOTE | 2024-12-31 16:21 | ED.SOB1 ---
HPI - SOB/Dyspnea General Chief Complaint: Shortness of Breath/Dyspnea Stated Complaint: PAINFUL BREATHING Time Seen by Provider: 12/31/24 16:13 Source: patient and friend Mode of arrival: walk-in Limitations: no limitations History of Present Illness HPI Narrative: 29-year-old female presents to the emergency department with friend with complaint of right upper chest pain over the past 2 days. History of pneumothorax a couple weeks ago. States it was spontaneous, unknown etiology. She did require chest tube at that time. States she does still have some sutures in place status post chest tube. In addition, has had some nasal congestion, rhinorrhea, postnasal drip, cough with productive sputum. States she has, a little, shortness of breath. Denies any fever, chills, ear pain, sore throat. Quality:?Sharp Severity:?Moderate Timing:?As above Context: Normal setting and activity? Modifying factors:?Worse with breathing, cough Associated symptoms: As above Related Data Home Medications ?Medication ?Instructions ?Recorded ?Confirmed fluoxetine 20 mg capsule 20 mg PO DAILY 12/16/24 12/16/24 fluoxetine 40 mg capsule (Prozac) 40 mg PO DAILY 12/16/24 12/16/24 Allergies Allergy/AdvReac Type Severity Reaction Status Date / Time No Known Drug Allergies Allergy Verified 12/16/24 08:57 Review of Systems ROS Narrative Constitutional: Denies fever, chills, fatigue HENT: + Congestion, rhinorrhea, postnasal drip. Denies ear pain, sore throat, diff swallowing, voice change Eyes: Denies discharge, eye redness Respiratory: Slight shortness of breath. Denies cough Cardiovascular: + Chest pain with breathing or coughing. Denies palpitations [facility], [facility] Medical History (Updated 12/31/24 @ 22:11 by FREDA Thomson) Primary spontaneous pneumothorax (12/16/24) ?J93.11 - Primary spontaneous pneumothorax (ICD-10) Pneumothorax on right ?J93.9 - Pneumothorax, unspecified (ICD-10) Urinary tract infection ?N39.0 - Urinary tract infection, site not specified (ICD-10) Anxiety ?F41.9 - Anxiety disorder, unspecified (ICD-10) History of depression ?Z86.59 - Personal history of other mental and behavioral disorders (ICD-10) Family History (Updated 12/16/24 @ 13:52 by Yuliana Tang RN) Grandfather Family history of myocardial infarction Mother Family history of myocardial infarction Grandmother Family history of cancer Social History (Updated 12/16/24 @ 13:52 by Yuliana Tang RN) Within the past year, how often did you have a drink containing alcohol: never Score interpretation: A score less than 3 is consistent with normal alcohol consumption. Smoking status: Never smoker Non-prescribed substance use: denies use Highest level of school completed/degree received: GED or equivalent Little interest or pleasure in doing things: not at all Feeling down, depressed, or hopeless: not at all Exam Narrative Exam Narrative: Vital signs noted Nurses notes reviewed CONST:? Nontoxic, well appearing, well nourished, in no distress.? HENT: normocephalic, atraumatic.? Normal hearing.? Normal appearing ext ears, canals, TM's.? No nasal discharge.? Moist mucous membranes, no increased oropharyngeal erythema, edema, exudate.? No trismus, maintaining own secretions. EYES: No injection, discharge NECK: supple, no lymphadenopathy CV: normal rate, regular rhythm, no murmur RESP: normal effort, speaking in complete sentences. + diminished LS on the right. No wheezes, rales, rhonchi? NEURO: A&Ox3, steady gait, normal station SKIN: intact, warm, dry, no pallor PSYCHIATRIC: normal mood, affect Constitutional Vital Signs, click to edit/add: Last Vital Signs Temp 98.1 F 12/31/24 16:11 Pulse 66 12/31/24 21:30 Resp 16 12/31/24 21:30 BP 117/59 12/31/24 21:30 Pulse Ox 97 12/31/24 21:30 O2 Del Method Room Air 12/31/24 16:11 Course Reevaluation(s) Reevaluation #1: Patient appears comfortable. Time: 21:00 Consultations Consultation #1: Patient was discussed with Dr. Velázquez and Dr. Erickson at [facility] who will accept the patient in transfer Time: 19:10 Vital Signs Vital signs: Vital Signs Temperature 98.1 F 12/31/24 16:11 Pulse Rate 80 12/31/24 16:11 Respiratory Rate 20 12/31/24 16:11 Blood Pressure 133/80 12/31/24 16:11 Pulse Oximetry 98 12/31/24 16:11 Oxygen Delivery Method Room Air 12/31/24 16:11 Temperature 98.1 F 12/31/24 16:11 Pulse Rate 66 12/31/24 21:30 Respiratory Rate 16 12/31/24 21:30 Blood Pressure 117/59 12/31/24 21:30 Pulse Oximetry 97 12/31/24 21:30 Oxygen Delivery Method Room Air 12/31/24 16:11 MDM - SOB/Dyspnea MDM Narrative Medical decision making narrative: This is a pleasant 29-year-old female who presents to the emergency department for evaluation of right-sided chest pain, mild shortness of breath, cough, congestion. History of pneumothorax on December 16. Patient required chest tube and admission. Per chart, she had placed 20 Kazakh tube and was consulted with pulmonology, Dr. Burnahm. Today, feels similar pain, but not as strong. Denies history of cigarette or marijuana smoking. On arrival, afebrile, vital signs stable On exam, nontoxic, well appearing patient, in no apparent distress. No remarkable findings on HEENT exam. Heart regular rate and rhythm. Lung sounds are diminished on the right, otherwise clear. Portable x-ray was performed in the room, inspiratory, expiratory views which showed pneumothorax. Patient was upset and finding out this news as this is the second when she has had this month. She reports that they did not have an etiology for her pneumothorax earlier this month. Labs were obtained showing no leukocytosis, anemia, thrombocytopenia, electrolyte imbalance, renal impairment. Coags unremarkable. Radiologist confirmed findings on wet read x-ray. Patient was very anxious, she was given fentanyl for pain and Ativan to help with her anxiety. Findings were discussed with patient's sister, Gloria. Consent obtained as patient was agreeable with placement of chest tube. ED attending placed 8 Kazakh Cook catheter style pneumothorax tube. Placement without complications. Patient had increased pain in the right anterior chest after placement likely secondary to visceral pain with expansion of her right lung. Repeat x-ray imaging of her chest confirmed resolution of the pneumothorax both on a wet read and radiology review. Patient stabilized and on reevaluation, was noted to be sleeping, apparently comfortable, hemodynamically stable. Patient was accepted after consultation with thoracic surgery and hospitalist to [facility]. Favor right pneumothorax Hemothorax less likely based on imaging. She was not hypoxic during ED course. History and Record Review Discussion with independent historian: Additional records reviewed: ED chart from the of this month Management Discussion with another healthcare provider: Dr. Miles who felt that with this being patient's second occurrence, she should be transferred to tertiary facility with cardiothoracic, thoracic surgery. Patient was also discussed with thoracic surgery and hospitalist at [facility]. Independent interpretation imaging Initial chest x-ray imaging revealed moderate pneumothorax on the right. After chest tube placed, chest x-ray imaging revealed resolution Diagnostic testing considered but not performed: CT scan. Patient had one on the . This was discussed with thoracic surgery and they are agreeable with holding off on repeat at this time. Re-Evaluation See ED course, clinically improved and feeling better, vital signs in acceptable range Disposition/plan ED disposition: Plan: Patient will be transferred to [facility] .? Condition at time of disposition: stable, improved. PLEASE NOTE: Portions of the medical record may have been produced using electronic tumor registrar and may contain errors with respect to translation of words which may not have been identified prior to finalization of the chart. Lab Data Labs: Lab Results 12/31/24 Range/Units 16:45 WBC 6.9 (4.0-11.0) 10^3/uL RBC 4.34 (4.20-5.40) 10^6/uL Hgb 11.6 L (12.0-16.0) g/dL Hct 35.8 L (36.0-48.0) % MCV 82.5 (81.0-99.0) fL MCH 26.7 (26.7-34.0) pg MCHC 32.4 (29.9-35.2) g/dL RDW 13.2 (11.0-15.0) % Plt Count 327 (150-450) 10^3/uL MPV 9.9 (9.5-13.5) fL Neut % (Auto) 63.3 (43.0-75.0) % Lymph % (Auto) 26.1 (20.5-60.0) % [place] % (Auto) 8.9 (1.7-12.0) % Eos % (Auto) 0.9 (0.9-7.0) % Baso % (Auto) 0.7 (0.2-2.0) % Neut # (Auto) 4.3 (1.4-6.5) 10^3/uL Lymph # (Auto) 1.8 (1.2-3.8) 10^3/uL [place] # (Auto) 0.6 (0.3-0.8) 10^3/uL Eos # (Auto) 0.1 (0.0-0.7) 10^3/uL Baso # (Auto) 0.1 (0.0-0.1) 10^3/uL Abs Immat Gran (auto) 0.01 (0.00-0.03) 10^3/uL Imm/Tot Granulo (auto) 0.1 (0.0-0.5) % PT 11.9 H (9.0-11.6) sec INR 1.14 APTT 25.6 (22.3-36.2) sec Sodium 137 (136-145) mmol/L Potassium 3.7 (3.5-5.1) mmol/L Chloride 100 (98-107) mmol/L Carbon Dioxide 29.3 (21.0-32.0) mmol/L Anion Gap 11.4 BUN 11.0 (7.0-18.0) mg/dL Creatinine 0.83 (0.55-1.02) mg/dL Est GFR ( Amer) >60 (>=60 mL/min/1.73m^2) Est GFR (Non-Af Amer) >60 (>=60 mL/min/1.73m^2) BUN/Creatinine Ratio 13.3 Glucose 112 H (74-106) mg/dL Calcium 9.2 (8.5-10.1) mg/dL Serum HCG, Qual Negative (NEGATIVE) Imaging Data Chest x-ray: Radiologist's impression: ITS Impressions Chest X-Ray 12/31/24 16:20 IMPRESSION: There is a moderate to large right-sided pneumothorax. These findings were discussed with Dr. Ashley at 5:20 PM on 12/31/2024 Impression dictated by: Rashard Bettencourt M.D.12/31/2024 5:21 PM Dictation Location: [place] [address] Electronically authenticated by: [id number] Y Date: 12/31/2024 17:21 Chest X-Ray 12/31/24 17:47 IMPRESSION: A right-sided chest tube has been placed. The right-sided pneumothorax has resolved. Impression dictated by: Rashard Bettencourt M.D.12/31/2024 6:22 PM Dictation Location: [place] [address] Electronically authenticated by: [id number] Y Date: 12/31/2024 18:22 Discharge Plan Discharge Chief Complaint: Shortness of Breath/Dyspnea Clinical Impression: Pneumothorax on right, Acute dyspnea Cough Qualifiers: Cough type: acute Qualified Code(s): R05.1 - Acute cough Patient Disposition: [facility] Time of Disposition Decision: 17:59 Mode of Transportation: EMS
[2024-12-31] MEDS: FENTANYL CITRATE/PF 100 MCG/2 ML VIAL 25 MCG IV (16:48)
[2024-12-31 16:56] LABS: Basophils Absolute Auto 0.1 10^3/uL (0.0-0.1); Basophils Percent Auto 0.7 % (0.2-2.0); Eosinophils Absolute Auto 0.1 10^3/uL (0.0-0.7); Eosinophils Percent Auto 0.9 % (0.9-7.0); Hematocrit 35.8 % (36.0-48.0); Hemoglobin 11.6 g/dL (12.0-16.0); Immature Granulocytes Abs Auto 0.01 10^3/uL (0.00-0.03); Immature Granulocytes Pct Auto 0.1 % (0.0-0.5); Lymphocytes Absolute Auto 1.8 10^3/uL (1.2-3.8); Lymphocytes Percent Auto 26.1 % (20.5-60.0); Mean Corpuscular HGB Conc 32.4 g/dL (29.9-35.2); Mean Corpuscular Hemoglobin 26.7 pg (26.7-34.0); Mean Corpuscular Volume 82.5 fL (81.0-99.0); Mean Platelet Volume 9.9 fL (9.5-13.5); Monocytes Absolute Auto 0.6 10^3/uL (0.3-0.8); Monocytes Percent Auto 8.9 % (1.7-12.0); Neutrophils Absolute Auto 4.3 10^3/uL (1.4-6.5); Neutrophils Percent Auto 63.3 % (43.0-75.0); Platelet Count 327 10^3/uL (150-450); Red Blood Count 4.34 10^6/uL (4.20-5.40); Red Cell Distribution Width 13.2 % (11.0-15.0); White Blood Count 6.9 10^3/uL (4.0-11.0)
[2024-12-31 17:00] LABS: Anion Gap 11.4; BUN Creatinine Ratio 13.3; Calcium 9.2 mg/dL (8.5-10.1); Carbon Dioxide 29.3 mmol/L (21.0-32.0); Chloride 100 mmol/L (98-107); Estimated GFR (African America >60 (>=60 mL/min/1.73m^2); Estimated GFR (Non-African Ame >60 (>=60 mL/min/1.73m^2); Glucose 112 mg/dL (74-106); Potassium 3.7 mmol/L (3.5-5.1); Sodium 137 mmol/L (136-145)
[2024-12-31 17:06] LABS: HCG Qualitative NEGATIVE (NEGATIVE); INR 1.14; Internal Control Within Normal Limits; Partial Thromboplastin Time 25.6 sec (22.3-36.2); Prothrombin Time 11.9 sec (9.0-11.6)
[2024-12-31] MEDS: LORAZEPAM 2 MG/ML VIAL 0.5 MG IV (17:09)
[2024-12-31] MEDS: LIDOCAINE HCL 1% 100 MG/10 ML MDV INJ (17:30)
[2024-12-31] MEDS: FENTANYL CITRATE/PF 100 MCG/2 ML VIAL 50 MCG IV (17:40)
--- NOTE | 2024-12-31 17:47 | XR_ITS ---
[place] [id number] Patient Name: YANI HAGAN MRN: [id number] date: 1995 Sex: F Assigned Patient Location: ED.MAIN Current Patient Location: ED.MAIN Accession/Order Number: [id number] Exam Date: 12/31/2024 18:21 Report Date: 12/31/2024 18:22 At the request of: FIFI BARBA Procedure: XR chest 1V XR chest 1V 12/31/2024 6:05 PM SIGNS AND SYMPTOMS: ^s/p chest tube placement ^Y PROTOCOL: Frontal radiograph of the chest COMPARISON: Radiograph from earlier on the same date FINDINGS: The trachea is midline. The heart and mediastinal structures are within normal limits. A right-sided chest tube has been placed. The right-sided pneumothorax has resolved. The lung parenchyma is clear. The bony thorax is intact. XR/XR chest 1V IMPRESSION: A right-sided chest tube has been placed. The right-sided pneumothorax has resolved. Impression dictated by: Rashard Bettencourt M.D.12/31/2024 6:22 PM Dictation Location: [place] [address] Electronically authenticated by: [id number] Y Date: 12/31/2024 18:22
[2024-12-31] MEDS: KETOROLAC TROMETHAMINE 30 MG/ML VIAL 15 MG IVP (18:51)
--- NOTE | 2024-12-31 19:19 | ECG_ITS ---
[facility] Test Date: 2024-12-31 Pat Name: YANI HAGAN Department: Room: - Gender: Female Manager Development: : 1995 Requested By: YUE CARTER Order Number: [id number] Reading MD: LUNA ASTORGA Measurements Intervals [place] Rate: 69 P: 62 ID: [id number] QRS: 65 QRSD: 82 T: -4 QT: 362 QTc: 381 Interpretive Statements 1100 Sinus rhythm 4068 Nonspecific [place] abnormality 9130 borderline ECG Electronically Signed On 01-01-2025 6:51:05 EST by LUNA ASTORGA
== END 2024-12-31 22:57 | disposition short-term general hospital (02) ==
PROVIDERS: Physician Assistant; Emergency Provider Emergency Medicine; PCP Nurse Practitioner Family
DX: J93.9 Pneumothorax, unspecified (principal); R06.00 Dyspnea, unspecified; R05.1 Acute cough
CPT/HCPCS: 32551; 36415; 71045; 71046; 80048; 84703; 85025; 85610; 85730; 93005; 96374; 96375; 96376; 99285; J1885; J2060; J3010

== ENCOUNTER 2025-01-13 07:27 | Emergency (ER) | payer OTHER, SELFPAY ==
--- OUTSIDE RECORDS SUMMARY | 2025-01-13 07:43 | XMS_ITS | CCD ---
Author Organization [facility] Care Team Providers Care Brim Pouncing Machine Operator Name Role Phone MAXX, BRAULIO Primary [...] Dr. Chacorta Tatum Attending U navailable Mitesh, Elinorjean claude Piedra Attending Unavail able Franky, MsKim Hassan Attending Zayda vailable MD CALLY MEYER Referring Unav ailable MD CALLY MEYER Attending Unav ailable Unavailable Primary Care Provider UnavailDAWSON Carter Attending Unavailable Chacorta Erwin MD Unavailable Generic Provider MD, No Assigned Pcp Primary Car e Provider Unavailable GENERIC PROVIDER, NO ASSIGNED PCP Primary Care Unavailable Maxx CESPEDES, Sunny Primary Care Provider [phone] GUANAKO, SHARIF Referring Unavailable MAXX, KHALID Primary [...] Referring Unavailable MAXX, KHALID Primary Care Unavailable SAFI, NARINDER Referring Unavailable WOO SILVA Referring Unavailabl e VICENTE, GIL T Referring Unavailable WOO SILVA Referring Unavailabl e WOO SILVA Referring Unavailabl e VICENTE, GLI T Referring Unavailable DERISO, DENIA Referring Unavailable RICARDO HERNANDEZAR Referring Unavailable WOO SILVA Referring Unavailabl e WOO SILVA Referring Unavailabl e VICENTE, GIL T Referring Unavailable WOO SILVA Referring Unavailabl e ASIYA, Referring Unavailable MIRIAMI, NARINDER Referring Unavailable OWO SILVA Referring Unavailabl e WOO SILVA Referring Unavailabl e VICENTE, GIL T Referring Unavailable DIAB, JENNIFER Referring Unavailable HORANI, SABINE Admitting Unavailable GIL ZHANG Attending Unavailable Medications Current Medications Medication Drug Class(es) [...] Start: 11-29-2020 take 1 tablet by cecilia twice daily at mealtime naproxen 500 mg [...] Start: 06-02-2020 take 1 capsule by mo [facility] every twelve hours Nitrofurantoin Monohyd Macro 100 [...] Problem Date Documented Date Episodic/Chronic Anxiety disorders (5 sources) Mixed anxiety and depressive disorder; Translations: [Anxiety state, unspecified] Onset: 01-01-2025 Chronic Bacterial infection; unspecified site (12 sources) Chlamydial infection; Translations: [Bacterial infectious disease] Episodic Cardiac dysrhythmias (2 sources) Palpitations; Translations: [Palpitations] Onset: 12-11-2018 Episodic Conditions associated with dizziness or vertigo (2 sources) Dizziness and giddiness; Translations: [Dizziness and giddiness] Onset: 12-11-2018 Episodic Deficiency and other anemia (2 sources) Other iron deficiency anemias; Translations: [Other iron deficiency anemias] Onset: 01-01-2025 Episodic E Codes: Fall (1 source) Fall [...] transmitted infection ] Onset: 11-13-2018 06-26-2021 Episodic Mood disorders (2 sources) Mood disorders; Translations: [Depression, unspecified] Onset: 01-01-2025 Mycoses (1 source) Candidiasis of vulva and [...] Sore throat symptom; Translations: [Acute pharyngitis] Episodic Pleurisy; pneumothorax; pulmonary collapse (2 sources) Other pneumothorax; Translations: [Other pneumothorax] Onset: 01-01-2025 Episodic Poisoning by other medications and drugs [...] of lower genitourinary tract] Episodic Substance-related disorders (5 sources) Other psychoactive substance abuse, uncomplicated; Translations: [...] Episodic Other aftercare (1 source) Other senior care (current) drug therapy; Translations: [Other senior care (current) drug therapy] Onset: 09-08-2022 Episodic Other [...] Test Name Value Interpretation Reference Range Facility 36on 01-11-2025 36 Spoke with patient w ho voiced understanding that we will not prescribed pain medication and to follow up with PCP/ other body maker. Patient did cancel her appointment. Thank you. [facility] 36 Patient was recently seen in the ER for spontaneous pneuomthorax. Patient states she was prescribed oxycodone while in the hospital. She continues to have pain. She is inquiring on a pain medication refill to last her until her pulmonary appointment with Dr. Hudson this upcoming . Tobacco Drummer did advise that this would be unlikely as she has a established body maker but residential mortgage underwriter would reach out regardless. Please advise. [facility] 30on 01-07-2025 30 Problem: Pain - Adul t Goal: Verbalizes/displays adequate comfort level or baseline comfort level 01/07/2025 1255 by Malena Tatum RN Outcome: Adequate for Discharge 01/07/2025 0910 by Malena Tatum RN Outcome: Progressing Problem: Safety - Adult Goal: Free from fall injury 01/07/2025 1255 by Malena Tatum RN Outcome: Adequate for Discharge 01/07/2025 0910 by Malena Tatum RN Outcome: Progressing Problem: Discharge Planning Goal: Discharge to home or other facility with appropriate resources 01/07/2025 1255 by Malena Tatum RN Outcome: Adequate for Discharge 01/07/2025 0910 by Malena Tatum RN Outcome: Progressing Problem: Chronic Conditions and Co-morbidities Goal: Patient's chronic conditions and co-morbidity symptoms are monitored and maintained or improved 01/07/2025 1255 by Malena Tatum RN Outcome: Adequate for Discharge 01/07/2025 0910 by Malena Tatum RN Outcome: Progressing [facility] 30 Problem: Pain - Adul t Goal: Verbalizes/displays adequate comfort level or baseline comfort level Outcome: Progressing Problem: Safety - Adult Goal: Free from fall injury Outcome: Progressing Problem: Discharge Planning Goal: Discharge to home or other facility with appropriate resources Outcome: Progressing Problem: Chronic Conditions and Co-morbidities Goal: Patient's chronic conditions and co-morbidity symptoms are monitored and maintained or improved Outcome: Progressing The patient is Moderately Stable - Low risk of patient condition declining or worsening The patient's goals for the shift include comfort, discharge home The clinical goals for the shift include VSS [facility] NURSNOTEon 01-07-2025 NURSNOTE Discharge paperwork gone over with patient at this time. All questions answered at bedside. Patient denies further questions. [facility] 30on 01-06-2025 30 The patient is Moder ately Stable - Low risk of patient condition declining or worsening The patient's goals for the shift include Comfort, rest The clinical goals for the shift include VSS, Safety [facility] 30 The patient is Moder ately Stable - Low risk of patient condition declining or worsening The patient's goals for the shift include comfort and wants chest tube out The clinical goals for the shift include stable respiratory status Over the shift, the patient did not make progress toward the following goals. Barriers to progression include plural effusions with chest tube in place. Recommendations to address these barriers include assess pt and reports concerns to MD Problem: Pain - Adult Goal: Verbalizes/displays adequate comfort level or baseline comfort level Outcome: Progressing . [facility] 30 Daily Case Managemen t Update Multidisciplinary rounds have been completed. Barriers to Discharge: Pending clinical course and improvement in clinical condition. S/P chemical pleurodesis-Chest tube to water seal CT chest showed small apical pneumothorax Increasing subcutaneous emphysema in CXR Keeping chest tube to water seal Discharge plan is to return home when medically ready. Diet: Dietary Orders (From admission, onward) Start Ordered 01/02/25 0743 Regular Diet Diet effective now Question: Room Service? Answer: Yes 01/02/25742 Physician Expected Discharge Date: Discharge Delays: PT Six Click Score: 24 OT Six Click Score: PT Recommendations: OT Recommendations: New Consults: Normal [facility] 30 The patient is Moder ately Stable - Low risk of patient condition declining or worsening The patient's goals for the shift include comfort, rest The clinical goals for the shift include vss, safety Problem: Pain - Adult Goal: Verbalizes/displays adequate comfort level or baseline comfort level Outcome: Progressing Flowsheets (Taken 01/05/20252020) Verbalizes/displays adequate comfort level or baseline comfort level: Encourage patient to monitor pain and request assistance Assess pain using appropriate pain scale Administer analgesics based on type and severity of pain and evaluate response Implement non-pharmacological measures as appropriate and evaluate response Problem: Safety - Adult Goal: Free from fall injury Outcome: Progressing Problem: Discharge Planning Goal: Discharge to home or other facility with appropriate resources Outcome: Progressing Flowsheets (Taken 01/05/20252020) Discharge to home or other facility with appropriate resources: Identify barriers to discharge with patient and caregiver Arrange for needed discharge resources and transportation as appropriate Identify discharge learning needs (meds, wound care, etc) Problem: Chronic Conditions and Co-morbidities Goal: Patient's chronic conditions and co-morbidity symptoms are monitored and maintained or improved Outcome: Progressing Flowsheets (Taken 01/05/20252020) Care Plan - Patient's Chronic Conditions and Co-Morbidity Symptoms are Monitored and Maintained or Improved: Monitor and assess patient's chronic conditions and comorbid symptoms for stability, deterioration, or improvement Collaborate with multidisciplinary team to address chronic and comorbid conditions and prevent exacerbation or deterioration Update acute care plan with appropriate goals if chronic or comorbid symptoms are exacerbated and prevent overall improvement and discharge Normal [facility] BASIC METABOLIC PANELon 03-0 Anion gap [Moles/Vol] 16 mmol/L Normal 7-20 [facility] Comment on above: Performed By: #### L [id number] #### [facility] ([facility]) [address] [place] [address] Calcium [Mass/Vol] 9.1 mg/dL Normal 8.6-10.3 [facility] [place] Comment on above: Performed By: #### L [id number] #### [facility] [address] [place] [address] Chloride [Moles/Vol] 103 mmol/L Normal 98-107 [facility] Comment on above: Performed By: #### L [id number] #### [facility] ([facility]) [address] [place] [address] CO2 [Moles/Vol] 25 mmol/L Normal 21-31 [facility] Comment on above: Performed By: #### L [id number] #### [facility] ([facility]) [address] [place] [address] Creatinine [Mass/Vol] 0.70 mg/dL Normal 0.60-1.20 [facility] Comment on above: Performed By: #### L [id number] #### [facility] ([facility]) [address] [place] [address] GLOMERULAR FILTRATION RATE ML/MIN/1.73 SQ M.PREDICTED 119.2 mL/min/1.73m*2 Normal >60.0 [facility] Comment on above: Result Comment: The [facility]???s estimated glomerular filtration rate (eGFR) will no longer include consideration of race in its calculation. The National Kidney Foundation???s eGFR Task Force developed new recommendations for the estimation of the glomerular filtration rate in the [place] They recommend immediate implementation of the new equation refit without the race variable in all laboratories because the calculation does not include race. In addition to not including race in the calculation and reporting, it included diversity in its development, and has acceptable performance characteristics and potential consequences that do not disproportionately affect any one group of individuals. Performed By: #### L [id number] #### [facility] ([facility] [address] [place] [address] Glucose [Mass/Vol] 91 mg/dL Normal 70-100 [facility] [place] Comment on above: Performed By: #### L [id number] #### [facility] ([facility]) [address] [place] [address] Potassium [Moles/Vol] 4.0 mmol/L Normal 3.5-5.1 [facility] Comment on above: Performed By: #### L [id number] #### [facility] ([facility]) [address] [place] [address] Sodium [Moles/Vol] 140 mmol/L Normal 136-145 [facility] [place] Comment on above: Performed By: #### L [id number] #### [facility] ([facility]) [address] [place] [address] Urea nitrogen [Mass/Vol] 20 mg/dL Normal 7-25 [facility] Comment on above: Performed By: #### L [id number] #### [facility] ([facility]) [address] [place] [place] [address] UREA NITROGEN/CREATININ E (MASS RATIO) IN SER/PLAS 28.6 Normal [facility] Comment on above: Performed By: #### L [id number] #### [facility] ([facility]) [address] [place] [address] CBC WITH AUTO DIFFERENTIALon 01-06-2025 Basophils (Bld) [#/Vol] 0.03 10*3/uL Normal 0.00-0.20 [facility] Comment on above: Performed By: #### L [id number] ####[facility] ([facility])[address] [place] [address] Basophils/100 WBC (Bld) 0.5 % Normal 0.0-1.0 [facility] Comment on above: Performed By: #### L [id number] ####[facility] ([facility])[address] [place] [address] Eosinophils (Bld) [#/Vol] 0.17 10*3/uL Normal 0.00-0.50 [facility] Comment on above: Performed By: #### L [id number] ####[facility] ([facility])[address] [place] [address] Eosinophils/100 WBC (Bld) 2.8 % Normal 0.0-6.0 [facility] Comment on above: Performed By: #### L [id number] ####[facility] ([facility])[address] [place] [address] Erythrocyte distribution width (RBC) [Ratio] 13.5 % Normal 11.5-15.0 [facility] Comment on above: Performed By: #### L [id number] ####[facility] ([facility] [place] [address] ERYTHROCYTE MEAN CORPUSCULAR HEMOGLOBIN CONCENTRATION (G/DL) BY AUTOMATED 31.4 g/dL Low 32.0-35.0 [facility] Comment on above: Performed By: #### L [id number] ####[facility] ([facility])[address] [place] [address] Hematocrit (Bld) [Volume fraction] 35.7 % Low 36.0-48.0 [facility] Comment on above: Performed By: #### L [id number] ####[facility] ([facility])[address] [place] [address] Hemoglobin (Bld) [Mass/Vol] 11.2 g/dL Low 12.0-15.0 [facility] Comment on above: Performed By: #### L [id number] ####[facility] ([facility])[address] [place] [address] Immature granulocytes (Bld) [#/Vol] 0.02 10*3/uL Normal 0.00-0.20 [facility] Comment on above: Performed By: #### L [id number] ####[facility] ([facility])[address] [place] [address] Immature granulocytes/100 WBC (Bld) 0.3 % Normal 0.0-1.0 [facility] Comment on above: Performed By: #### L [id number] ####[facility] ([facility])[address] [place] [address] Lymphocytes (Bld) [#/Vol] 1.32 10*3/uL Normal 1.20-4.00 [facility] Comment on above: Performed By: #### L [id number] ####[facility] ([facility])[address] [place] [address] Lymphocytes/100 WBC (Bld) 21.6 % Normal 20.0-45.0 [facility] Comment on above: Performed By: #### L [id number] ####[facility] ([facility])[address] [place] [address] MCH (RBC) [Entitic mass] 26.8 pg Low 27.0-33.0 [facility] Comment on above: Performed By: #### L [id number] ####[facility] ([facility])[address] [place] [address] MCV (RBC) [Entitic vol] 85.4 fL Normal 82.0-98.0 [facility] Comment on above: Performed By: #### L [id number] ####[facility] ([facility])[address] [place] [address] Monocytes (Bld) [#/Vol] 0.62 10*3/uL Normal 0.10-1.00 [facility] Comment on above: Performed By: #### L [id number] ####[facility] ([facility])[address] [place] [address] Monocytes/100 WBC (Bld) 10.1 % Normal 5.0-12.0 [facility] Comment on above: Performed By: #### L [id number] ####[facility] ([facility])[address] [place] [address] Neutrophils (Bld) [#/Vol] 3.95 10*3/uL Normal 1.60-7.60 [facility] Comment on above: Performed By: #### L [id number] ####[facility] ([facility])[address] [place] [address] Neutrophils/100 WBC (Bld) 64.7 % Normal 40.0-72.0 [facility] Comment on above: Performed By: #### L [id number] ####[facility] ([facility])[address] [place] [address] NRBC (PER 100 WBCS) BY AUTOMATED COUNT 0.0 % Normal 0 [facility] Comment on above: Performed By: #### L [id number] ####[facility] ([facility])[address] [place] [address] PLATELETS (10*3/UL) IN BLOOD AUTOMATED COUNT 318 10*3/uL Normal 150-400 [facility] Comment on above: Performed By: #### L [id number] ####[facility] ([facility])[address] [place] [address] RBC (Bld) [#/Vol] 4.18 10*6/uL Normal 3.80-5.00 [facility] Comment on above: Performed By: #### L [id number] ####[facility] ([facility])[address] [place] [address] WBC (Bld) [#/Vol] 6.11 10*3/uL Normal 4.00-10.60 [facility] Comment on above: Performed By: #### L [id number] ####[facility] ([facility])[address] [place] [address] MAGNESIUMon 01-06-2025 Magnesium [Mass/Vol] 1.8 mg/dL Low 1.9-2.7 [facility] Comment on above: Performed By: #### L [id number] ####[facility] ([facility])[address] [place] [address] 30on 01-05-2025 30 Daily Case Managemen t Update Multidisciplinary rounds have been completed. Barriers to Discharge: s/p pleurodesis yesterday. Chest tube to waterseal. CT chest today. If it does not show pneumo, will remove chest tube tomorrow. Diet: Dietary Orders (From admission, onward) Start Ordered 01/02/25 0743 Regular Diet Diet effective now Question: Room Service? Answer: Yes 01/02/25 0743 Physician Expected Discharge Date: 01/05/2025 Discharge Delays: PT Six Click Score: 24 OT Six Click Score: PT Recommendations: OT Recommendations: Is expected discharge disposition appropriate for patient?: Yes New Consults: Normal [facility] BASIC METABOLIC PANELon 03-0 Anion gap [Moles/Vol] 15 mmol/L Normal 7-20 [facility] Comment on above: Performed By: #### L [id number] #### [facility] ([facility]) [address] [place] [address] Calcium [Mass/Vol] 9.3 mg/dL Normal 8.6-10.3 [facility] [place] Comment on above: Performed By: #### L [id number] #### [facility] ([facility]) [address] [place] [address] Chloride [Moles/Vol] 103 mmol/L Normal 98-107 [facility] Comment on above: Performed By: #### L [id number] #### [facility] ([facility]) [address] [place] [address] CO2 [Moles/Vol] 24 mmol/L Normal 21-31 [facility] Comment on above: Performed By: #### L [id number] #### [facility] ([facility]) [address] [place] [address] Creatinine [Mass/Vol] 0.62 mg/dL Normal 0.60-1.20 [facility] Comment on above: Performed By: #### L [id number] #### [facility] ([facility]) [address] [place] [address] GLOMERULAR FILTRATION RATE ML/MIN/1.73 SQ M.PREDICTED 122.8 mL/min/1.73m*2 Normal >60.0 [facility] Comment on above: Result Comment: The [facility]???s estimated glomerular filtration rate (eGFR) will no longer include consideration of race in its calculation. The National Kidney Foundation???s eGFR Task Force developed new recommendations for the estimation of the glomerular filtration rate in the [place] They recommend immediate implementation of the new equation refit without the race variable in all laboratories because the calculation does not include race. In addition to not including race in the calculation and reporting, it included diversity in its development, and has acceptable performance characteristics and potential consequences that do not disproportionately affect any one group of individuals. Performed By: #### L [id number] #### [facility] ([facility]) [address] [facility] [place] [address] Glucose [Mass/Vol] 71 mg/dL Normal 70-100 [facility] Comment on above: Performed By: #### L [id number] #### [facility] ([facility]) [address] [place] [address] Potassium [Moles/Vol] 3.6 mmol/L Normal 3.5-5.1 [facility] Comment on above: Performed By: #### L [id number] #### [facility] ([facility]) [address] [place] [address] Sodium [Moles/Vol] 138 mmol/L Normal 136-145 [facility] Comment on above: Performed By: #### L [id number] #### [facility] ([facility]) [address] [place] [address] Urea nitrogen [Mass/Vol] 14 mg/dL Normal 7-25 [facility] Comment on above: Performed By: #### L [id number] #### [facility] ([facility]) [address] [place] [address] UREA NITROGEN/CREATININ E (MASS RATIO) IN SER/PLAS 22.6 Normal [facility] Comment on above: Performed By: #### L [id number] #### [facility] ([facility]) [address] [facility] [place] [address] CBC WITH AUTO DIFFERENTIALon 01-05-2025 Basophils (Bld) [#/Vol] 0.03 10*3/uL Normal 0.00-0.20 [facility] Comment on above: Performed By: #### L [id number] #### [facility] [address] [place] [address] Basophils/100 WBC (Bld) 0.4 % Normal 0.0-1.0 [facility] Comment on above: Performed By: #### L [id number] #### [facility] ([facility] [address] [place] [address] Eosinophils (Bld) [#/Vol] 0.06 10*3/uL Normal 0.00-0.50 [facility] Comment on above: Performed By: #### L [id number] #### [facility] ([facility]) [address] [place] [address] Eosinophils/100 WBC (Bld) 0.8 % Normal 0.0-6.0 [facility] Comment on above: Performed By: #### L [id number] #### [facility] ([facility]) [address] [place] [address] Erythrocyte distribution width (RBC) [Ratio] 13.5 % Normal 11.5-15.0 [facility] Comment on above: Performed By: #### L [id number] #### [facility] ([facility]) [address] [place] [address] ERYTHROCYTE MEAN CORPUSCULAR HEMOGLOBIN CONCENTRATION (G/DL) BY AUTOMATED 31.8 g/dL Low 32.0-35.0 [facility] Comment on above: Performed By: #### L [id number] #### [facility] ([facility]) [address] [place] [address] Hematocrit (Bld) [Volume fraction] 35.8 % Low 36.0-48.0 [facility] Comment on above: Performed By: #### L [id number] #### [facility] ([facility]) [address] [place] [address] Hemoglobin (Bld) [Mass/Vol] 11.4 g/dL Low 12.0-15.0 [facility] Comment on above: Performed By: #### L [id number] #### [facility] ([facility]) [address] [place] [address] Immature granulocytes (Bld) [#/Vol] 0.01 10*3/uL Normal 0.00-0.20 [facility] Comment on above: Performed By: #### L [id number] #### [facility] ([facility]) [address] [place] [address] Immature granulocytes/100 WBC (Bld) 0.1 % Normal 0.0-1.0 [facility] Comment on above: Performed By: #### L [id number] #### [facility] ([facility]) [address] [place] [address] Lymphocytes (Bld) [#/Vol] 1.54 10*3/uL Normal 1.20-4.00 [facility] Comment on above: Performed By: #### L [id number] #### [facility] ([facility]) [address] [place] [address] Lymphocytes/100 WBC (Bld) 19.9 % Low 20.0-45.0 [facility] Comment on above: Performed By: #### L [id number] #### [facility] ([facility]) [address] [place] [address] MCH (RBC) [Entitic mass] 26.6 pg Low 27.0-33.0 [facility] Comment on above: Performed By: #### L [id number] #### [facility] [address] [place] [address] MCV (RBC) [Entitic vol] 83.4 fL Normal 82.0-98.0 [facility] Comment on above: Performed By: #### L [id number] #### [facility] ([facility]) [address] [place] [address] Monocytes (Bld) [#/Vol] 0.66 10*3/uL Normal 0.10-1.00 [facility] Comment on above: Performed By: #### L [id number] #### [facility] ([facility]) [address] [place] [address] Monocytes/100 WBC (Bld) 8.5 % Normal 5.0-12.0 [facility] Comment on above: Performed By: #### L [id number] #### [facility] ([facility]) [address] [place] [address] Neutrophils (Bld) [#/Vol] 5.45 10*3/uL Normal 1.60-7.60 [facility] Comment on above: Performed By: #### L [id number] #### [facility] ([facility]) [address] [place] [address] Neutrophils/100 WBC (Bld) 70.3 % Normal 40.0-72.0 [facility] Comment on above: Performed By: #### L [id number] #### [facility] ([facility]) [address] [place] [address] NRBC (PER 100 WBCS) BY AUTOMATED COUNT 0.0 % Normal 0 [facility] Comment on above: Performed By: #### L [id number] #### [facility] ([facility]) [address] [place] [address] PLATELETS (10*3/UL) IN BLOOD AUTOMATED COUNT 330 10*3/uL Normal 150-400 [facility] Comment on above: Performed By: #### L [id number] #### [facility] ([facility]) [address] [place] [address] RBC (Bld) [#/Vol] 4.29 10*6/uL Normal 3.80-5.00 [facility] Comment on above: Performed By: #### L [id number] #### [facility] ([facility]) [address] [place] [address] WBC (Bld) [#/Vol] 7.75 10*3/uL Normal 4.00-10.60 [facility] Comment on above: Performed By: #### L [id number] #### [facility] ([facility]) [address] [place] [address] CT CHEST WO IV CONTRASTon CT CHEST WO IV CONTRAST CT CHEST WO IV CONTRAST 01/05/2025 11:30 AM CLINICAL INDICATIONS:Pneumothorax, chest tube. TECHNIQUE: Multidetector CT axial slices of the chest were obtained without IV contrast. Multiplanar reformats were performed and viewed on a separate workstation and reviewed to further define anatomy and possible pathology. All CT scans at this facility use dose modulation, iterative reconstruction, and/or weight based dosing when appropriate to reduce radiation dose to as low as reasonably achievable. COMPARISON: 12/16/2024, chest radiograph 01/05/2025 FINDINGS: Right chest tube pigtail coiled in the anterior right upper hemithorax. Moderate associated subcutaneous emphysema. Small right pneumothorax. Mild layering right pleural effusion, mild right lower lobe atelectasis. Minimal dependent left lower lobe atelectasis, tiny left pleural effusion. No enlarged lymph nodes. No thoracic aortic aneurysm. No coronary calcifications. No osseous lesions. IMPRESSION: Right chest tube pigtail coiled in the anterior upper right hemithorax. Small pneumothorax, moderate subcutaneous emphysema. Basilar atelectasis, pleural effusions greater on the right. Electronically signed: Keysha Casas. 9 Invalid Interpretation Code [facility] MAGNESIUMon 01-05-2025 Magnesium [Mass/Vol] 1.8 mg/dL Low 1.9-2.7 [facility] Comment on above: Performed By: #### L [id number] #### [facility] ([facility]) [address] [place] [address] NURSNOTEon 01-05-2025 NURSNOTE Per pulmonary clamp chest tube and place to water seal and pt will go to CT to see if any improvement. If better potentially removing chest tube. Normal [facility] 30on 01-04-2025 30 The patient is Moder ately Stable - Low risk of patient condition declining or worsening The patient's goals for the shift include comfort The clinical goals for the shift include VSS Problem: Pain - Adult Goal: Verbalizes/displays adequate comfort level or baseline comfort level Outcome: Progressing Flowsheets (Taken 01/04/20252126) Verbalizes/displays adequate comfort level or baseline comfort level: Encourage patient to monitor pain and request assistance Administer analgesics based on type and severity of pain and evaluate response Implement non-pharmacological measures as appropriate and evaluate response Assess pain using appropriate pain scale Notify Licensed Independent Practitioner if interventions unsuccessful or patient reports new pain Consider cultural and social influences on pain and pain management Problem: Safety - Adult Goal: Free from fall injury Outcome: Progressing Flowsheets (Taken 01/04/20252126) Free from fall injury: Assess patient frequently for physical needs Identify cognitive and physical deficits and behaviors that affect risk of falls [place] fall precautions as indicated by assessment Instruct patient to call for assistance with activity based on assessment Educate patient/family on patient safety, including physical limitations Consider OT/PT consult to assist with strengthening/mobility Modify environment to reduce risk of injury Problem: Discharge Planning Goal: Discharge to home or other facility with appropriate resources Outcome: Progressing Flowsheets (Taken 01/01/2025814 by Radha Rich, RN) Discharge to home or other facility with appropriate resources: Identify barriers to discharge with patient and caregiver Arrange for needed discharge resources and transportation as appropriate Identify discharge learning needs (meds, wound care, etc) Arrange for interpreters to assist at discharge as needed Refer to discharge planning if patient needs post-hospital services based on physician order or complex needs related to functional status, cognitive ability or social support system Problem: Chronic Conditions and Co-morbidities Goal: Patient's chronic conditions and co-morbidity symptoms are monitored and maintained or improved Outcome: Progressing Flowsheets (Taken 01/01/2025814 by Radha Rich, RN) Care Plan - Patient's Chronic Conditions and Co-Morbidity Symptoms are Monitored and Maintained or Improved: Monitor and assess patient's chronic conditions and comorbid symptoms for stability, deterioration, or improvement Update acute care plan with appropriate goals if chronic or comorbid symptoms are exacerbated and prevent overall improvement and discharge Collaborate with multidisciplinary team to address chronic and comorbid conditions and prevent exacerbation or deterioration Normal [facility] 30 Daily Case Managemen t Update Multidisciplinary rounds have been completed. Barriers to Discharge: Pending clinical course, spontaneous pneumothorax>>chest tube in place to waterseal. Pulm planning for pleurodesis today, chest tube to remain in place and clamped afterwards, pending repeat CXR tomorrow morning for chest tube removal. Plan to discharge home when medically cleared. Diet: Dietary Orders (From admission, onward) Start Ordered 01/02/25742 Regular Diet Diet effective now Question: Room Service? Answer: Yes 01/02/25742 Physician Expected Discharge Date: 01/05/2025 PT Six Click Score: 24 OT Six Click Score: Normal [facility] 30 The patient is Moder ately Stable - Low risk of patient condition declining or worsening The patient's goals for the shift include comfort, rest The clinical goals for the shift include stable vitals, safety Problem: Pain - Adult Goal: Verbalizes/displays adequate comfort level or baseline comfort level Outcome: Progressing Problem: Safety - Adult Goal: Free from fall injury Outcome: Progressing Problem: Chronic Conditions and Co-morbidities Goal: Patient's chronic conditions and co-morbidity symptoms are monitored and maintained or improved Outcome: Progressing Normal [facility] BASIC METABOLIC PANELon 03-0 Anion gap [Moles/Vol] 14 mmol/L Normal 7-20 [facility] Comment on above: Performed By: #### L [id number] #### [facility] ([facility]) [address] [facility] [place] [address] Calcium [Mass/Vol] 8.9 mg/dL Normal 8.6-10.3 [facility] Comment on above: Performed By: #### L [id number] #### [facility] ([facility]) [address] [place] [address] Chloride [Moles/Vol] 105 mmol/L Normal 98-107 [facility] Comment on above: Performed By: #### L [id number] #### [facility] ([facility]) [address] [place] [address] CO2 [Moles/Vol] 22 mmol/L Normal 21-31 [facility] Comment on above: Performed By: #### L [id number] #### [facility] ([facility]) [address] [place] [address] Creatinine [Mass/Vol] 0.60 mg/dL Normal 0.60-1.20 [facility] Comment on above: Performed By: #### L [id number] #### [facility] ([facility]) [address] [facility] [place] [address] GLOMERULAR FILTRATION RATE ML/MIN/1.73 SQ M.PREDICTED 123.8 mL/min/1.73m*2 Normal >60.0 [facility] Comment on above: Result Comment: The [facility]???s estimated glomerular filtration rate (eGFR) will no longer include consideration of race in its calculation. The National Kidney Foundation???s eGFR Task Force developed new recommendations for the estimation of the glomerular filtration rate in the [place] They recommend immediate implementation of the new equation refit without the race variable in all laboratories because the calculation does not include race. In addition to not including race in the calculation and reporting, it included diversity in its development, and has acceptable performance characteristics and potential consequences that do not disproportionately affect any one group of individuals. Performed By: #### L [id number] #### [facility] ([facility]) [address] [place] [address] Glucose [Mass/Vol] 85 mg/dL Normal 70-100 [facility] Comment on above: Performed By: #### L [id number] #### [facility] ([facility]) [address] [place] [address] Potassium [Moles/Vol] 4.6 mmol/L Normal 3.5-5.1 [facility] Comment on above: Performed By: #### L [id number] #### [facility] ([facility]) [address] [place] [address] Sodium [Moles/Vol] 136 mmol/L Normal 136-145 [facility] Comment on above: Performed By: #### L [id number] #### [facility] ([facility]) [address] [place] [address] Urea nitrogen [Mass/Vol] 14 mg/dL Normal 7-25 [facility] Comment on above: Performed By: #### L [id number] #### [facility] ([facility]) [address] [place] [address] UREA NITROGEN/CREATININ E (MASS RATIO) IN SER/PLAS 23.3 Normal [facility] Comment on above: Performed By: #### L [id number] #### [facility] ([facility]) [address] [place] [address] CBC WITH AUTO DIFFERENTIALon 01-04-2025 Basophils (Bld) [#/Vol] 0.04 10*3/uL Normal 0.00-0.20 [facility] Comment on above: Performed By: #### L [id number] #### [facility] ([facility]AKER) [address] [place] [address] Basophils/100 WBC (Bld) 0.8 % Normal 0.0-1.0 [facility] Comment on above: Performed By: #### L [id number] #### [facility] ([facility]) [address] [place] [address] Eosinophils (Bld) [#/Vol] 0.16 10*3/uL Normal 0.00-0.50 [facility] Comment on above: Performed By: #### L [id number] #### [facility] ([facility] [address] [place] [address] Eosinophils/100 WBC (Bld) 3.3 % Normal 0.0-6.0 [facility] Comment on above: Performed By: #### L [id number] #### [facility] [address] [place] [address] Erythrocyte distribution width (RBC) [Ratio] 13.2 % Normal 11.5-15.0 [facility] Comment on above: Performed By: #### L [id number] #### [facility] ([facility] [address] [place] [address] ERYTHROCYTE MEAN CORPUSCULAR HEMOGLOBIN CONCENTRATION (G/DL) BY AUTOMATED 32.0 g/dL Normal 32.0-35.0 [facility] Comment on above: Performed By: #### L [id number] #### [facility] ([facility] [address] [place] [address] Hematocrit (Bld) [Volume fraction] 37.5 % Normal 36.0-48.0 [facility] Comment on above: Performed By: #### L [id number] #### [facility] ([facility]) [address] [place] [address] Hemoglobin (Bld) [Mass/Vol] 12.0 g/dL Normal 12.0-15.0 [facility] Comment on above: Performed By: #### L [id number] #### [facility] ([facility]) [address] [place] [address] Immature granulocytes (Bld) [#/Vol] 0.01 10*3/uL Normal 0.00-0.20 [facility] Comment on above: Performed By: #### L [id number] #### [facility] ([facility]) [address] [place] [address] Immature granulocytes/100 WBC (Bld) 0.2 % Normal 0.0-1.0 [facility] Comment on above: Performed By: #### L [id number] #### [facility] ([facility]) [address] [place] [address] Lymphocytes (Bld) [#/Vol] 1.50 10*3/uL Normal 1.20-4.00 [facility] Comment on above: Performed By: #### L [id number] #### [facility] ([facility]) [address] [place] [address] Lymphocytes/100 WBC (Bld) 31.1 % Normal 20.0-45.0 [facility] Comment on above: Performed By: #### L [id number] #### [facility] ([facility]) [address] [place] [address] MCH (RBC) [Entitic mass] 27.0 pg Normal 27.0-33.0 [facility] Comment on above: Performed By: #### L [id number] #### [facility] ([facility]) [address] [place] [address] MCV (RBC) [Entitic vol] 84.3 fL Normal 82.0-98.0 [facility] Comment on above: Performed By: #### L [id number] #### [facility] ([facility]) [address] [place] [address] Monocytes (Bld) [#/Vol] 0.55 10*3/uL Normal 0.10-1.00 [facility] Comment on above: Performed By: #### L [id number] #### [facility] ([facility]) [address] [place] [address] Monocytes/100 WBC (Bld) 11.4 % Normal 5.0-12.0 [facility] Comment on above: Performed By: #### L [id number] #### [facility] ([facility]) [address] [place] [address] Neutrophils (Bld) [#/Vol] 2.56 10*3/uL Normal 1.60-7.60 [facility] Comment on above: Performed By: #### L [id number] #### [facility] ([facility]) [address] [place] [address] Neutrophils/100 WBC (Bld) 53.2 % Normal 40.0-72.0 [facility] Comment on above: Performed By: #### L [id number] #### [facility] ([facility]) [address] [place] [address] NRBC (PER 100 WBCS) BY AUTOMATED COUNT 0.0 % Normal 0 [facility] Comment on above: Performed By: #### L [id number] #### [facility] ([facility]) [address] [place] [address] PLATELETS (10*3/UL) IN BLOOD AUTOMATED COUNT 304 10*3/uL Normal 150-400 [facility] Comment on above: Performed By: #### L [id number] #### [facility] ([facility]) [address] [place] [address] RBC (Bld) [#/Vol] 4.45 10*6/uL Normal 3.80-5.00 [facility] Comment on above: Performed By: #### L [id number] #### [facility] ([facility]) [address] [place] [address] WBC (Bld) [#/Vol] 4.82 10*3/uL Normal 4.00-10.60 [facility] Comment on above: Performed By: #### L [id number] #### [facility]) [address] [place] [address] CONSULTon 01-04-2025 CONSULT ------ -- Attestation signed by Narinder Valverde MD at 01/05/2025 10:05 AM Patient was seen and examined with the resident on the same date of service, I discussed the findings and therapeutic plan with the resident/fellow, I agree with the documentation, assessment and plan as above except for any edits/updates below. Patient with second episode of primary spontaneous pneumothorax Plan for pleurodesis with Doxycycline Patient has low pain tolerance so will administer Fentanyl and Toradol before and after the procedure Narinder Valverde MD Pulmonary and critical care -- Pulmonology Consult Patient : Juliette Hernández : 1995 Location: [id number] Attending: Gil Zhang MD Admit Date: 01/01/2025 Hospital Day: 3 Reason for Consult: Spontaneous pneumothorax HPI: Juliette Hernández is a 29 y.o. female with a past medical history depression and anxiety, history of substance abuse with history of overdose per EMR although patient denies, and alcohol use. Patient presented from [facility] as a direct admission due to spontaneous pneumothorax. Patient initially presented 2 weeks prior with right-sided chest pain and heaviness and was found to have pneumothorax at that time. Chest tube was placed at that time. Patient denied any falls or traumatic event. She denies any cigarette smoking or electronic cigarette use. She denies any marijuana use. Chest tube was eventually removed and patient was discharged home. Yesterday she presented to [facility] again with shortness of breath and chest pain/heaviness. She was found to have spontaneous pneumothorax. Chest tube was placed and she was transferred to [facility] for further management with possible VATS/pleurodesis. Assessment: Right sided primary spontaneous pneumothorax. No air leak. Chest tube to waterseal upon examination. Repeat chest x-ray pending. Anxiety and depression History of substance abuse with overdose? Occasional marijuana use? Plan: Plan for pleurodesis with doxycycline 500 mg x 1. Will provide the patient with 200 mcg of fentanyl during the procedure. After that we will continue Toradol 15 mg every 6 hours for pain management. Chest tube to remain in place and clamped after the procedure Repeat chest x-ray in the morning, if no pneumothorax plan for chest tube removal. Pulmonology will continue to follow. Past History/Allergies?Social History: History reviewed. No pertinent past medical history. No Known Allergies Social History Socioeconomic History Marital status: Single Spouse name: Not on file Number of children: Not on file Years of education: Not on file Highest education level: Not on file Occupational History Not on file Tobacco Use Smoking status: Never Smokeless tobacco: Never Substance and Sexual Activity Alcohol use: Not Currently Drug use: Not Currently Types: Other, Opium, Cocaine, Crack cocaine Comment: Records indicate opiate abuse, crack, cocaine Sexual activity: Not on file Other Topics Concern Not on file Social History Narrative Not on file Social Determinants of Health Financial Resource Strain: Low Risk (01/01/2025) Overall Financial Resource Strain (CARDIA) Difficulty of Paying Living Expenses: Not hard at all Food Insecurity: No Food Insecurity (01/01/2025) Hunger Vital Sign Worried About Running Out of Food in the Last Year: Never true Ran Out of Food in the Last Year: Not on file Transportation Needs: No Transportation Needs (01/01/2025) Transportation Lack of Transportation (Medical): No Lack of Transportation (Non-Medical): Not on file Physical Activity: Not on file Stress: Not on file Social Connections: Not on file Intimate Partner Violence: Unknown (01/01/2025) Humiliation, Afraid, Rape, and Kick questionnaire Fear of Current or Ex-Partner: No Emotionally Abused: Not on file Physically Abused: Not on file Sexually Abused: Not on file Housing Stability: Low Risk (01/01/2025) Housing Stability Vital Sign Unable to Pay for Housing in the Last Year: No Number of Times Moved in the Last Year: Not on file Homeless in the Last Year: No Family History: No family history on file. Outpatient Medications: Current Facility-Administered Medications: acetaminophen (Tylenol) tablet 1,000 mg, 1,000 mg, oral, q8h, Gil Zhang MD, 1,000 mg at 01/04/25 1217 ARIPiprazole (Abilify) tablet 5 mg, 5 mg, oral, Daily, Gil Zhang MD, 5 mg at 01/04/25 0904 docusate sodium (Colace) capsule 200 mg, 200 mg, oral, BID, Woo Silva CNP, 200 mg at 01/03/25 2130 doxycycline (Vibramycin) 500 mg in sodium chloride 0.9 % 50 mL chest tube irrigation, 500 mg, intrapleural, Once, Leodan Hardwick MD fentaNYL (Sublimaze) injection 100 mcg, 100 mcg, intravenous, Once, Leodan Sc (more content not included)... Normal [facility] MAGNESIUMon 01-04-2025 Magnesium [Mass/Vol] 1.9 mg/dL Normal 1.9-2.7 [facility] Comment on above: Performed By: #### L [id number] #### [facility] ([facility]) [address] [place] [address] NURSNOTEon 01-04-2025 NURSNOTE 1630 - Pulmonology t o bedside to complete pleurodesis. Pain medications administered as per orders/charted. Patient vitals stable as charted. Chest tube clamped per pulmonology, repeat chest xray at 1900, tube to remain clamped until reevaluated in AM. 1700 - Patient continues to c/o 10/10 pain to right chest. Pulmonology back to bedside. Medications administered as charted. 171 - Patient continues with 10/10 pain, now states she feels as if an elephant is sitting on her chest, c/o RUE numbness and that it feels as if her right arm is broken. Capillary refill to RUE brisk, digits cool to touch, radial pulse 2+. Patient withdraws in pain to light touch of right hand/RUE. Visualization of chest appears slightly asymmetrical with swelling to right chest, crepitus on light palpation. RUE swollen with crepitus to right shoulder. STAT chest xray ordered, radiology notified of need for testing. 172 - MICU and pulmonology to bedside at 1720, agrees with above assessment and STAT chest xray order. States to keep chest tube clamped at this time, once xray is completed residential mortgage underwriter to notify MICU to review images for further instruction. 1735 - Patient continues with above symptoms, residential mortgage underwriter remains at bedside awaiting radiology to complete chest xray. 173 - Follow up call placed to xray requesting expediting testing. 174 - Xray to bedside. EXHIBITS CURATOR RN at bedside per lead RN request. 1750 - MICU and pulmonology to bedside to review portable images. Per MICU, pneumothorax is stable at this time. Medications administered as ordered/charted. Orders given to unclamp chest tube at 1845 per pulmonology. 1845 - Chest tube unclamped. Patient remains in intractable pain, rates 8/10. Continues with above RUE complaints and symptoms, however swelling has not increased at this time. Family at bedside. Call light within reach. Bed alarm on. Patient notified of pain medication schedule, and education provided regarding overmedication/narcan. Patient verbalizes understanding. Vitals remain stable as charted. Normal [facility] 30on 01-02-2025 30 The patient is Moder ately Stable - Low risk of patient condition declining or worsening The patient's goals for the shift include comfort The clinical goals for the shift include stable vitals Problem: Pain - Adult Goal: Verbalizes/displays adequate comfort level or baseline comfort level 01/02/20252309 by Tal Alvares RN Outcome: Progressing 01/02/20252309 by Tal Alvares RN Outcome: Progressing Problem: Safety - Adult Goal: Free from fall injury 01/02/20252309 by Tal Alvares RN Outcome: Progressing 01/02/20252309 by Tal Alvares RN Outcome: Progressing Problem: Discharge Planning Goal: Discharge to home or other facility with appropriate resources 01/02/20252309 by Tal Alvares RN Outcome: Progressing 01/02/20252309 by Tal Alvares RN Outcome: Progressing Problem: Chronic Conditions and Co-morbidities Goal: Patient's chronic conditions and co-morbidity symptoms are monitored and maintained or improved 01/02/20252309 by Tal Alvares RN Outcome: Progressing 01/02/20252309 by Tal Alvares RN Outcome: Progressing Normal [facility] 30 The patient is Moder ately Stable - Low risk of patient condition declining or worsening The patient's goals for the shift include comfort The clinical goals for the shift include stable vitals Problem: Pain - Adult Goal: Verbalizes/displays adequate comfort level or baseline comfort level Outcome: Progressing Problem: Safety - Adult Goal: Free from fall injury Outcome: Progressing Problem: Discharge Planning Goal: Discharge to home or other facility with appropriate resources Outcome: Progressing Problem: Chronic Conditions and Co-morbidities Goal: Patient's chronic conditions and co-morbidity symptoms are monitored and maintained or improved Outcome: Progressing Normal [facility] TOXICOLOGY PANEL URINEon AMPHETAMINE+METHAM PHETAMINE SCREEN (PRESENCE) IN URINE Negative Normal Negative [facility] Comment on above: Performed By: #### L [id number] #### [facility] ([facility]) [address] [place] [address] BARBITURATES PRESENCE IN URINE BY SCREEN METHOD Negative Normal Negative [facility] Comment on above: Performed By: #### L [id number] #### [facility] ([facility]) [address] [place] [address] Benzodiazepines Ql (U) Negative Normal Negative [facility] Comment on above: Performed By: #### L [id number] #### [facility] ([facility]) [address] [place] [address] CANNABINOID (PRESENCE) IN URINE BY SCREEN METHOD Negative Normal Negative [facility] Comment on above: Performed By: #### L [id number] #### [facility] ([facility]) [address] [place] [address] Cocaine Ql (U) Negative Normal Negative [facility] Comment on above: Performed By: #### L [id number] #### [facility] ([facility]) [address] [place] [address] METHADONE (PRESENCE) IN URINE BY SCREEN METHOD Negative Normal Negative [facility] Comment on above: Performed By: #### L [id number] #### [facility] ([facility]) [address] [place] [address] OPIATES (PRESENCE) IN URINE BY SCREEN METHOD Positive Abnormal Negative [facility] Comment on above: Performed By: #### L [id number] #### [facility] ([facility]) [address] [facility] [place] [address] PHENCYCLIDINE PRESENCE IN URINE BY SCREEN METHOD Negative Normal Negative [facility] Comment on above: Performed By: #### L [id number] #### [facility] ([facility]) [address] [facility] [facility] [place] [address] Propoxyphene Screen Ql (U) Negative Normal Negative [facility] Comment on above: Performed By: #### L [id number] #### [facility] ([facility]) [address] [facility] [place] [address] TRICYCLIC ANTIDEPRESSANTS (PRESENCE) IN URINE Negative Normal Negative [facility] Comment on above: Performed By: #### L [id number] #### [facility] ([facility]) [address] [place] [address] 30on 01-01-2025 30 The patient is Moder ately Stable - Low risk of patient condition declining or worsening The patient's goals for the shift include COMFORT The clinical goals for the shift include VSS Over the shift, the patient did not make progress toward the following goals. Barriers to progression include. Recommendations to address these barriers include. Normal [facility] 30 The patient is Moder ately Stable - Low risk of patient condition declining or worsening The patient's goals for the shift include COMFORT The clinical goals for the shift include VSS Problem: Pain - Adult Goal: Verbalizes/displays adequate comfort level or baseline comfort level Outcome: Progressing Problem: Safety - Adult Goal: Free from fall injury Outcome: Progressing Problem: Discharge Planning Goal: Discharge to home or other facility with appropriate resources Outcome: Progressing Problem: Chronic Conditions and Co-morbidities Goal: Patient's chronic conditions and co-morbidity symptoms are monitored and maintained or improved Outcome: Progressing Normal [facility] 30 The patient is Moder ately Unstable - Medium risk of patient condition declining or worsening The patient's goals for the shift include COMFORT The clinical goals for the shift include VSS Normal [facility] CBC WITH AUTO DIFFERENTIALon 01-01-2025 Basophils (Bld) [#/Vol] 0.06 10*3/uL Normal 0.00-0.20 [facility] Comment on above: Performed By: #### L [id number] #### [facility] ([facility]) [address] [place] [address] Basophils/100 WBC (Bld) 1.2 % High 0.0-1.0 [facility] Comment on above: Performed By: #### L [id number] #### [facility] ([facility]) [address] [place] [address] Eosinophils (Bld) [#/Vol] 0.14 10*3/uL Normal 0.00-0.50 [facility] Comment on above: Performed By: #### L [id number] #### [facility] ([facility]) [address] [place] [address] Eosinophils/100 WBC (Bld) 2.8 % Normal 0.0-6.0 [facility] Comment on above: Performed By: #### L [id number] #### [facility] ([facility]) [address] [place] [address] Erythrocyte distribution width (RBC) [Ratio] 13.2 % Normal 11.5-15.0 [facility] Comment on above: Performed By: #### L [id number] #### [facility] ([facility]) [address] [place] [address] ERYTHROCYTE MEAN CORPUSCULAR HEMOGLOBIN CONCENTRATION (G/DL) BY AUTOMATED 32.2 g/dL Normal 32.0-35.0 [facility] Comment on above: Performed By: #### L [id number] #### [facility] [address] [place] [address] Hematocrit (Bld) [Volume fraction] 34.5 % Low 36.0-48.0 [facility] Comment on above: Performed By: #### L [id number] #### [facility] ([facility]) [address] [place] [address] Hemoglobin (Bld) [Mass/Vol] 11.1 g/dL Low 12.0-15.0 [facility] Comment on above: Performed By: #### L [id number] #### [facility] ([facility] [address] [facility] [place] [address] Immature granulocytes (Bld) [#/Vol] 0.02 10*3/uL Normal 0.00-0.20 [facility] Comment on above: Performed By: #### L [id number] #### [facility] ([facility]) [address] [place] [address] Immature granulocytes/100 WBC (Bld) 0.4 % Normal 0.0-1.0 [facility] Comment on above: Performed By: #### L [id number] #### [facility] ([facility]) [address] [place] [address] Lymphocytes (Bld) [#/Vol] 1.37 10*3/uL Normal 1.20-4.00 [facility] Comment on above: Performed By: #### L [id number] #### [facility] ([facility]) [address] [place] [address] Lymphocytes/100 WBC (Bld) 27.0 % Normal 20.0-45.0 [facility] Comment on above: Performed By: #### L [id number] #### [facility] ([facility] [address] [place] [address] MCH (RBC) [Entitic mass] 26.7 pg Low 27.0-33.0 [facility] Comment on above: Performed By: #### L [id number] #### [facility] ([facility] [address] [facility] [place] [address] MCV (RBC) [Entitic vol] 83.1 fL Normal 82.0-98.0 [facility] Comment on above: Performed By: #### L [id number] #### [facility] ([facility] [address] [place] [address] Monocytes (Bld) [#/Vol] 0.72 10*3/uL Normal 0.10-1.00 [facility] Comment on above: Performed By: #### L [id number] #### [facility] ([facility] [address] [place] [address] Monocytes/100 WBC (Bld) 14.2 % High 5.0-12.0 [facility] Comment on above: Performed By: #### L [id number] #### [facility] ([facility]) [address] [place] [address] Neutrophils (Bld) [#/Vol] 2.77 10*3/uL Normal 1.60-7.60 [facility] Comment on above: Performed By: #### L [id number] #### [facility] ([facility]) [address] [place] [address] Neutrophils/100 WBC (Bld) 54.4 % Normal 40.0-72.0 [facility] Comment on above: Performed By: #### L [id number] #### [facility] ([facility]) [address] [place] [address] NRBC (PER 100 WBCS) BY AUTOMATED COUNT 0.0 % Normal 0 [facility] Comment on above: Performed By: #### L [id number] #### [facility] ([facility]) [address] [place] [address] PLATELETS (10*3/UL) IN BLOOD AUTOMATED COUNT 290 10*3/uL Normal 150-400 [facility] Comment on above: Performed By: #### L [id number] #### [facility] ([facility]) [address] [place] [address] RBC (Bld) [#/Vol] 4.15 10*6/uL Normal 3.80-5.00 [facility] Comment on above: Performed By: #### L [id number] #### [facility] ([facility] [address] [place] [address] WBC (Bld) [#/Vol] 5.08 10*3/uL Normal 4.00-10.60 [facility] Comment on above: Performed By: #### L [id number] #### [facility] ([facility] [address] [place] [address] COMPREHENSIVE METABOLIC PANE Shad 01-01-2025 Albumin [Mass/Vol] 4.0 g/dL Normal 3.5-5.7 [facility] Comment on above: Performed By: #### L [id number] #### [facility] ([facility] [address] [place] [address] ALP [Catalytic activity/Vol] 65 U/L Normal 34-104 [facility] Comment on above: Performed By: #### L [id number] #### [facility] ([facility] [address] [place] [address] ALT [Catalytic activity/Vol] 15 U/L Normal 7-52 [facility] Comment on above: Performed By: #### L [id number] #### [facility] ([facility] [address] [place] [address] Anion gap [Moles/Vol] 9 mmol/L Normal 7-20 [facility] Comment on above: Performed By: #### L [id number] #### [facility] ([facility]) [address] [place] [address] AST [Catalytic activity/Vol] 21 U/L Normal 13-39 [facility] Comment on above: Performed By: #### L [id number] #### [facility] ([facility] [address] [place] [address] Bilirubin [Mass/Vol] 0.5 mg/dL Normal 0.3-1.0 [facility] Comment on above: Performed By: #### L [id number] #### [facility] ([facility] [address] [place] [address] Calcium [Mass/Vol] 8.8 mg/dL Normal 8.6-10.3 [facility] Comment on above: Performed By: #### L [id number] #### [facility] ([facility]) [address] [place] [address] Chloride [Moles/Vol] 107 mmol/L Normal 98-107 [facility] Comment on above: Performed By: #### L [id number] #### [facility] ([facility]) [address] [place] [address] CO2 [Moles/Vol] 27 mmol/L Normal 21-31 [facility] Comment on above: Performed By: #### L [id number] #### [facility] ([facility]) [address] [place] [address] Creatinine [Mass/Vol] 0.73 mg/dL Normal 0.60-1.20 [facility] Comment on above: Performed By: #### L [id number] #### [facility] ([facility]) [address] [place] [address] GLOMERULAR FILTRATION RATE ML/MIN/1.73 SQ M.PREDICTED 113.4 mL/min/1.73m*2 Normal >60.0 [facility] Comment on above: Result Comment: The [facility]???s estimated glomerular filtration rate (eGFR) will no longer include consideration of race in its calculation. The National Kidney Foundation???s eGFR Task Force developed new recommendations for the estimation of the glomerular filtration rate in the [place] They recommend immediate implementation of the new equation refit without the race variable in all laboratories because the calculation does not include race. In addition to not including race in the calculation and reporting, it included diversity in its development, and has acceptable performance characteristics and potential consequences that do not disproportionately affect any one group of individuals. Performed By: #### L [id number] #### [facility] ([facility] [address] [place] [address] Glucose [Mass/Vol] 99 mg/dL Normal 70-100 [facility] Comment on above: Performed By: #### L [id number] #### [facility] ([facility]) [address] [place] [address] Potassium [Moles/Vol] 4.1 mmol/L Normal 3.5-5.1 [facility] Comment on above: Performed By: #### L [id number] #### [facility] ([facility]) [address] [place] [address] Protein [Mass/Vol] 6.6 g/dL Normal 6.0-8.3 [facility] Comment on above: Performed By: #### L [id number] #### [facility] ([facility]) [address] [place] [address] Sodium [Moles/Vol] 139 mmol/L Normal 136-145 [facility] Comment on above: Performed By: #### L [id number] #### [facility] ([facility]) [address] [place] [address] Urea nitrogen [Mass/Vol] 19 mg/dL Normal 7-25 [facility] Comment on above: Performed By: #### L [id number] #### [facility] ([facility]) [address] [place] [address] UREA NITROGEN/CREATININ E (MASS RATIO) IN SER/PLAS 26.0 Normal [facility] Comment on above: Performed By: #### L [id number] #### [facility] ([facility]) [address] [place] [address] CONSULTon 01-01-2025 CONSULT Inpatient consult to Cardiothoracic Surgery Consult performed by: Felisha Braden CNP Consult ordered by: Benny Hernandez MD Reason for consult: Recurrent Spontaneous Pneumothorax Assessment/Recommendations : See Plan Below History Of Present Illness Juliette Hernández is a 29 y.o. female with medical history significant for anxiety, depression, and polysubstance abuse with history of overdose. Medical history obtained from the patient and the medical records. She presenting as direct admission to [facility] early this morning, transferred from [facility]. Upon presentation to [facility], she complained of right sided chest pain that progressively worsened over the past 2 days. CXR revealed a moderate to large spontaneous pneumothorax and a small pleural catheter was placed. She denies recent injury or traumatic event. Denies URI or coughing episodes. Denies history of asthma, emphysema, or other lung disease. Denies smoking cigarettes or vaping. States that she smoke marijuana from time to time. She had a previous spontaneous pneumothorax 2 weeks ago and a chest tube was placed. She was transferred to [facility] for surgical evaluation for possible VATS with pleurodesis. She has remained hemodynamically stable without respiratory distress since admission. Past Medical History She has no past medical history on file. See HPI Surgical History She has no past surgical history on file. Social History She reports that she has never smoked. She has never used smokeless tobacco. She reports that she does not currently use alcohol. She reports that she does not currently use drugs after having used the following drugs: Other, Opium, Cocaine, and Crack cocaine. Allergies Patient has no known allergies. Medications Medications Prior to Admission Medication Sig Dispense Refill Last Dose FLUoxetine (PROzac) 40 mg capsule Take 60 mg by mouth in the morning. Review of Systems Constitutional: Negative for chills, diaphoresis, fatigue and fever. HENT: Positive for dental problem (history of dental carries). Negative for mouth sores, sore throat and trouble swallowing. Respiratory: Negative for cough, chest tightness, shortness of breath and wheezing. Cardiovascular: Negative for chest pain, palpitations and leg swelling. Gastrointestinal: Negative for abdominal distention, abdominal pain, blood in stool, nausea and vomiting. Genitourinary: Positive for menstrual problem (heavy and painful menstrual cycle). Skin: Negative for rash and wound. Neurological: Negative for dizziness, seizures, syncope, weakness, light-headedness and headaches. Hematological: Does not bruise/bleed easily. Psychiatric/Behavioral: Negative. See HPI Physical Exam Constitutional: General: She is not in acute distress. Appearance: Normal appearance. She is not ill-appearing, toxic-appearing or diaphoretic. HENT: Head: Normocephalic. Mouth/Throat: Mouth: Mucous membranes are moist. Eyes: Extraocular Movements: Extraocular movements intact. Cardiovascular: Rate and Rhythm: Normal rate and regular rhythm. Heart sounds: No murmur heard. Pulmonary: Effort: Pulmonary effort is normal. No respiratory distress. Breath sounds: No wheezing or rales. Comments: Right lateral chest tube sutured securely in place and connected to [facility] from outside hospital.20cm suction. There is no air leak. Occlussive dressing in place. No underlying crepitus or redness or drainage at chest tube site. Abdominal: General: There is no distension. Palpations: Abdomen is soft. Musculoskeletal: General: No tenderness. Normal range of motion. Cervical back: Normal range of motion. Skin: General: Skin is warm and dry. Capillary Refill: Capillary refill takes less than 2 seconds. Coloration: Skin is not jaundiced or pale. Neurological: General: No focal deficit present. Mental Status: She is alert and oriented to person, place, and time. Psychiatric: Mood and Affect: Mood normal. Behavior: Behavior normal. Last Recorded Vitals Blood pressure 98/58, pulse 64, temperature 36.2 ???C (97.2 ???F), temperature source Temporal, resp. rate (!) 8, height 1.676 m (5' 6 ), weight 86.2 kg (190 lb 0.6 oz), SpO2 98%. Assessment/Plan Principal Problem: Spontaneous pneumothorax Active Problems: Heart murmur, aortic History of substance dependence (CMS/HCC) Anxiety and depression Plan: -This patient was seen and evaluated at bedside in collaboration with Dr. Ally Tucker. She is found to be in stable condition. She has what is suspected to be a recurrent spontaneous pneumothorax. The first spontaneous pneumothorax occurred 2 weeks ago and a chest tube was inserted. There is a CT Scan of the Chest from the outside hospital, dated 12/16/24 and shows a small right pneumothorax with a chest tube located outside the pleural space and on the lateral side of the rib cage. We do not hav (more content not included)... Normal [facility] FERRITINon 01-01-2025 FERRITIN (NG/ML) IN SER/PLAS 25.0 ng/mL Normal 11.0-307.0 [facility] Comment on above: Performed By: #### L [id number] #### [facility] ([facility]) [address] [place] [address] FOLATEon 01-01-2025 FOLATE (NG/ML) IN SER/PLAS 17.34 ng/mL Normal 6.6-1000 [facility] Comment on above: Performed By: #### L [id number] #### [facility] ([facility]) [address] [place] [address] IRON AND TIBCon 01-01-2025 IRON (UG/DL) IN SER/PLAS 53 ug/dL Normal 50-212 [facility] Comment on above: Performed By: #### L [id number] #### [facility] ([facility]) [address] [place] [place] [address] IRON BINDING CAPACITY (UG/DL) IN SER/PLAS 378 ug/dL Normal 250-450 [facility] Comment on above: Performed By: #### L [id number] #### [facility] ([facility]) [address] [place] [address] IRON BINDING CAPACITY.UNSATURAT ED (UG/DL) IN SER/PLAS 325.0 ug/dL Normal 155.0-355.0 [facility] Comment on above: Performed By: #### L [id number] #### [facility] ([facility] [address] [place] [address] IRON SATURATION (%) IN SER/PLAS 14 % Low 20-50 [facility] Comment on above: Performed By: #### L [id number] #### [facility] ([facility]) [address] [place] [address] TSH3 REFLEX TO FT4on 025 THYROTROPIN (MIU/L) IN SER/PLAS BY DETECTION LIMIT <= 0.05 MIU/L 2.68 mIU/L Normal 0.34-5.60 [facility] Comment on above: Performed By: #### L [id number] #### [facility] ([facility] [address] [place] [address] VITAMIN B12on 01-01-2025 Cobalamin (Vitamin B12) [Mass/Vol] 299 pg/mL Normal 180-914 [facility] Comment on above: Result Comment: REFE RENCE RANGES: 180-914 pg/mL Normal 145-179 pg/mL Indeterminate <145 pg/mL Deficient Performed By: #### L [id number] #### [facility] ([facility] [address] [facility] [place] [address] HCV RNA,Quant,PCRon 12-11-19 25 HCV RNA,Quant Not detected Normal NOTDET [facility] Comment on above: Result Comment: [...] Tissue-Based Products (HCT/P). Performed By: #### U JERRY REBOLLEDO #### [address] [place] [address] Boiler Mechanic: Adonis Thomas MD CBCon 12-08-2024 Erythrocyte distribution width (RBC) [Ratio] 13.1 % Normal 11.8-14.4 [facility] Comment on above: Performed By: #### W P #### [address] [place] [address] Boiler Mechanic: Adonis Thomas MD Hematocrit (Bld) [Volume fraction] 33.8 % Low 36.3-47.1 [facility] Comment on above: Performed By: #### W P #### [address] [place] [address] Boiler Mechanic: Adonis Thomas MD Hemoglobin (Bld) [Mass/Vol] 10.9 g/dL Low 11.9-15.1 [facility] Comment on above: Performed By: #### W P #### [address] [place] [address] Boiler Mechanic: Adonis Thomas MD MCH (RBC) [Entitic mass] 27.0 pg Normal 25.2-33.5 [facility] Comment on above: Performed By: #### W P #### [address] [place], [place] [id number] Boiler Mechanic: Adonis Thomas MD MCHC (RBC) [Mass/Vol] 32.2 g/dL Normal 28.4-34.8 [facility] Comment on above: Performed By: #### W P #### [address] [place] [id number] Boiler Mechanic: Adonis Thomas MD MCV (RBC) [Entitic vol] 83.9 fL Normal 82.6-102.9 [facility] [facility] Comment on above: Performed By: #### W P #### [address] [place] [id number] Boiler Mechanic: Adonis Thomas MD Platelet mean volume (Bld) [Entitic vol] 9.8 fL Normal 8.1-13.5 [facility] Comment on above: Performed By: #### W P #### [address] [place], [place] [id number] Boiler Mechanic: Adonis Thomas MD Platelets (Bld) [#/Vol] 332 10*3/uL Normal 138-453 [facility] Comment on above: Performed By: #### W P #### [address] [place], [facility] Boiler Mechanic: Adonis Thomas MD RBC (Bld) [#/Vol] 4.03 10*6/uL Normal 3.95-5.11 [facility] Comment on above: Performed By: #### W P #### [address] [place] [address] Boiler Mechanic: Adonis Thomas MD Interpretation and review of laboratory results Abnormal [facility] Nucleated RBC/100 WBC (Bld) [Ratio] 0.0 % 0.0 per 100 WBC [facility] WBC other (Bld) [#/Vol] 4.8 [facility] NRBC Automated 0.0 per 100 WBC Normal 0.0 [facility] Comment on above: Performed By: #### W P #### [facility] [address] [place], [place] [id number] Boiler Mechanic: Adonis Thomas MD WBC (Bld) [#/Vol] 4.8 10*3/uL Normal 3.5-11.3 [facility] Comment on above: Performed By: #### W P #### [facility] [address] [place] [address] Boiler Mechanic: Adonis Thomas MD Comp Metabolic Profon 2024 Albumin [Mass/Vol] 4.0 g/dL Normal 3.5-5.2 [facility] Comment on above: Performed By: #### W P #### [facility] [address] [place], [place] [id number] Boiler Mechanic: Adonis Thomas MD Albumin/Glob Ratio 1.6 Normal 1.0-2.5 [facility] Comment on above: Performed By: #### W P #### [facility] [address] [place], [place] [id number] Boiler Mechanic: Adonis Thomas MD Alkaline Phos 65 U/L Normal 35-104 [facility] Comment on above: Performed By: #### W P #### [facility] [address] [place], [place] [id number] Boiler Mechanic: Adonis Thomas MD ALT [Catalytic activity/Vol] 28 U/L Normal 10-35 [facility] Comment on above: Performed By: #### W P #### [facility] [address] [place] [address] Boiler Mechanic: Adonis Thomas MD Anion gap [Moles/Vol] 10 mmol/L Normal 9-16 [facility] Comment on above: Performed By: #### W P #### [facility] [address] [place], [place] [id number] Boiler Mechanic: Adonis Thomas MD AST [Catalytic activity/Vol] 27 U/L Normal 10-35 [facility] Comment on above: Performed By: #### W P #### [facility] [address] [place] [address] Boiler Mechanic: Adonis Thomas MD Bilirubin [Mass/Vol] mg/dL Normal 0.00-1.20 [facility] Comment on above: Performed By: #### W P #### [facility] [address] [place] [address] Boiler Mechanic: Adonis Thomas MD BUN/CRE Ratio 28 High 9-20 [facility] Comment on above: Performed By: #### W P #### [facility] [address] [place] [address] Boiler Mechanic: Adonis Thomas MD Calcium [Mass/Vol] 9.0 mg/dL Normal 8.6-10.4 [facility] Comment on above: Performed By: #### W P #### [facility] [address] [place] [address] Boiler Mechanic: Adonis Thomas MD Chloride [Moles/Vol] 102 mmol/L Normal 98-107 [facility] Comment on above: Performed By: #### W P #### [facility] [address] [place] [address] Boiler Mechanic: Adonis Thomas MD CO2 [Moles/Vol] 28 mmol/L Normal 20-31 [facility] Comment on above: Performed By: #### W P #### [facility] [address] [place] [address] Boiler Mechanic: Adonis Thomas MD Creatinine [Mass/Vol] 0.6 mg/dL Normal 0.50-0.90 [facility] Comment on above: Performed By: #### W P #### [facility] [address] [place], [place] [id number] Boiler Mechanic: Adonis Thomas MD GFR/1.73 sq M.predicted among non-blacks MDRD (S/P/Bld) [Vol rate/Area] mL/min/{1.73_m2} Normal >60 [facility] Comment on above: Result Comment: These [...] secretion. Performed By: #### W P #### [facility] [address] [place] [address] Dr[place], [place] [id number] Boiler Mechanic: Adonis Thomas MD Glucose [Mass/Vol] 105 mg/dL High 74-99 [facility] Comment on above: Performed By: #### W P #### [address] [place], [place] 8947783 Boiler Mechanic: Adonis Thomas MD Potassium [Moles/Vol] 4.1 mmol/L Normal 3.7-5.3 [facility] Comment on above: Performed By: #### W P #### [facility] [address] [place], [place] [id number] Boiler Mechanic: Adonis Thomas MD Protein [Mass/Vol] 6.5 g/dL Low 6.6-8.7 [facility] Comment on above: Performed By: #### W P #### [facility] [address] [place] [address] Boiler Mechanic: Adonis Thomas MD Sodium [Moles/Vol] 140 mmol/L Normal 136-145 [facility] Comment on above: Performed By: #### W P #### [facility] [address] [place] [address] Boiler Mechanic: Adonis Thomas MD Urea nitrogen [Mass/Vol] 17 mg/dL Normal 6-20 [facility] Comment on above: Performed By: #### W P #### [facility] [address] [place] [address] Boiler Mechanic: Adonis Thomas MD Comprehensive Metabolic Pane [facility] 12-08-2024 Albumin [Mass/Vol] 4.0 g/dL 3.5 - 5.2 g/dL [facility] Albumin/Globulin [Mass ratio] 1.6 {ratio} 1.0 - 2.5 [facility] ALP [Catalytic activity/Vol] 65 U/L 35 - 104 U/L [facility] ALT [Catalytic activity/Vol] 28 U/L 10 - 35 U/L [facility] Anion gap [Moles/Vol] 10 mmol/L 9 - 16 mmol/L [facility] AST [Catalytic activity/Vol] 27 U/L 10 - 35 U/L [facility] Bilirubin [Mass/Vol] mg/dL 0.00 - 1.20 mg/dL [facility] Calcium [Mass/Vol] 9.0 mg/dL 8.6 - 10. 4 mg/dL [facility] Chloride [Moles/Vol] 102 mmol/L 98 - 107 mmol/L [facility] CO2 [Moles/Vol] 28 mmol/L 20 - 31 mmol/L [facility] Creatinine [Mass/Vol] 0.6 mg/dL 0.50 - 0.90 mg/dL [facility] Est, Glom Filt Rate - PINF [facility] Comment on above: These results are [...] 105 mg/dL High 74 - 99 mg/dL [facility] Interpretation and review of laboratory results Abnormal [facility] Potassium [Moles/Vol] 4.1 mmol/L 3.7 - 5.3 mmol/L [facility] Protein [Mass/Vol] 6.5 g/dL Low 6.6 - 8.7 g/dL [facility] Sodium [Moles/Vol] 140 mmol/L 136 - 145 mmol/L [facility] Urea nitrogen [Mass/Vol] 17 mg/dL 6 - 20 mg/dL [facility] Urea nitrogen/Creatinin e [Mass ratio] 28 mg/mg High 9 - 20 [facility] HCG Qualitative, Serumon HCG ( test) Ql Negative NEGATIVE [facility] Comment on above: Specimens with hCG l evels near the threshold of the test (25 mIU/mL) may give a negative or indeterminate result. In such cases, another test should be performed with a new specimen in 48-72 hours. If early is suspected clinically in this setting, correlation with quantitative serum b-hCG level is suggested. [facility] has confirmed the use of plasma for this test. This has not been cleared or approved by the U.S. Food and Drug Administration. The FDA has determined that such clearance is not necessary. [facility] HCG Screen, Bloodon 12-08-19 25 HCG Screen, Blood Negative Normal NEG [facility] Comment on above: Result Comment: Spec imens with hCG levels near the threshold of the test (25 mIU/mL) may give a negative or indeterminate result. In such cases, another test should be performed with a new specimen in 48-72 hours. If early is suspected clinically in this setting, correlation with quantitative serum b-hCG level is suggested. [facility] has confirmed the use of plasma for this test. This has not been cleared or approved by the U.S. Food and Drug Administration. The FDA has determined that such clearance is not necessary. Performed By: #### W P #### [facility] [address] [place] [address] [place], [place] [phone] Boiler Mechanic: Adonis Thomas MD HCV RNA,Quant,PCRon 12-08-19 25 Source .PLASMA Normal [facility] Comment on above: Performed By: #### U KESHA, UAX #### [facility] [address] [place] [address] [place] [address] Boiler Mechanic: Adonis Thomas MD HIV Ag/Abon 12-08-2024 HIV Ag/Ab Non-Reactive Normal NR [facility] Comment on above: Result Comment: No l aboratory evidence of HIV infection. If acute HIV infection is suspected, consider testing for HIV-1 RNA. Performed By: #### W P #### [address] [place], [place] [phone] Boiler Mechanic: Adonis Thomas MD HIV Screenon 12-08-2024 HIV 1+2 Ab+HIV1 p24 Ag IA Ql Non-Reactive NONREACTIVE [facility] Comment on above: No laboratory eviden ce of HIV infection. If acute HIV infection is suspected, consider testing for HIV-1 RNA. [facility] Hep B Surf Abon 12-08-2024 Hep B Surf Ab <3.50 Normal <10 [facility] Comment on above: Result Comment: REFERENCE RANGE: <10.0 NON-REACTIVE/NOT IMMUNE >=10.0 REACTIVE/IMMUNE Performed By: #### W P #### [address] [place] [address] Boiler Mechanic: Adonis Thomas MD Hepatitis Acute [facility] 12-08 Hep A Ab,IgM Non-Reactive Normal NR [facility] Comment on above: Performed By: #### W P #### [address] [place], [place] [id number] Boiler Mechanic: Adonis Thomas MD Hep B Core Ab,IgM Non-Reactive Normal NR [facility] Comment on above: Performed By: #### W P #### [facility] [address] [place] [address] [place] [address] Boiler Mechanic: Adonis Thomas MD Hep B Surf Ag Non-Reactive Normal [facility] Comment on above: Performed By: #### W P #### [address] [place] [address] Boiler Mechanic: Adonis Thomas MD Hep C Ab Non-Reactive Normal [facility] Comment on above: Result Comment: [...] PCR. Performed By: #### W P #### [address] [place], [place] [id number] Boiler Mechanic: Adonis Thomas MD Hepatitis B Surface Antibody on 12-08-2024 HBV surface Ab IA [facility]n [facility]IU[facility] above: REFERENCE RANGE: <10.0 NON-REACTIVE/NOT IMMUNE >=10.0 REACTIVE/IMMUNE Hepatitis Panel, Acuteon HAV IgM IA Ql Non-Reactive NONREACTIVE [facility] HBV core IgM IA Ql Non-Reactive NONREACTIVE [facility] HBV surface Ag IA Ql Non-Reactive NONREACTIVE [facility] HCV Ab IA Ql Non-Reactive NONREACTIVE [...] RNA by PCR. No Panel Informationon 12-08 [facility] T. pallidum Abon 12-08-2024 T. pallidum Ab IA Ql (S) Non-Reactive NONREACTIVE [facility] Comment on above: T. pallidum antibodies are not detected. There is no serological evidence of infection with T. pallidum (early primary syphilis cannot be excluded). Retest in 2-4 weeks if syphilis is clinically suspect. [facility] T.pallidum Ab Screenon 12-08 T.pallidum Ab Screen Non-Reactive Normal NR [facility] Comment on above: Result Comment: T. pallidum antibodies are not detected. There is no serological evidence of infection with T. pallidum (early primary syphilis cannot be excluded). Retest in 2-4 weeks if syphilis is clinically suspect. Performed By: #### U MICAO, UAX #### [facility] [address] [place] [address] Boiler Mechanic: Adonis Thomas MD Chlamydia/GC,DNA Ampon 12-07 Chlamydia Probe Negative Normal NEG [facility] Comment on above: Result Comment: CHLA [...] target. Performed By: #### S WCGP #### [facility] [address] [place] [address] Boiler Mechanic: Perry Marte MD Gonorrhea Probe Negative Normal NEG [facility] Comment on above: Result Comment: NEIS [...] target. Performed By: #### S WCGP #### [facility] [place], [place] [id number] Boiler Mechanic: Perry Marte MD Trichomonas/Wet Prepon 12-04 Trichomonas/Wet Prep Specimen Description .VAGINAL SPECIMEN Direct Exam YEAST PRESENT CLUE CELLS SEEN NO TRICHOMONAS SEEN Report Status FINAL 12/04/2024 Normal [facility] Comment on above: Performed By: #### W P #### [facility] [address] [place], [place] [phone] Boiler Mechanic: Adonis Thomas MD Wet prep, genitalon 12-04-19 25 Microorganism or agent identified Nom (Unsp spec) YEAST PRESENT [facility] Microorganism or agent identified Nom (Unsp spec) CLUE CELLS SEEN [facility] Microorganism or agent identified Nom (Unsp spec) NO TRICHOMONAS SEEN [facility] Specimen Description .VAGINAL SPECIMEN [facility] CBCon 10-14-2024 Erythrocyte distribution width (RBC) [Ratio] 13.8 % Normal 11.8-14.4 [facility] Comment on above: Performed By: #### S WCGP #### [address] [address] Boiler Mechanic: Perry Marte MD Hematocrit (Bld) [Volume fraction] 36.1 % Low 36.3-47.1 [facility] Comment on above: Performed By: #### S WCGP #### [address] [address] Boiler Mechanic: Perry Marte MD Hemoglobin (Bld) [Mass/Vol] 11.6 g/dL Low 11.9-15.1 [facility] Comment on above: Performed By: #### S WCGP #### [facility] [address] [place] [address] Boiler Mechanic: Perry Marte MD MCH (RBC) [Entitic mass] 28.0 pg Normal 25.2-33.5 [facility] Comment on above: Performed By: #### S WCGP #### [address] [address] Boiler Mechanic: Perry Marte MD MCHC (RBC) [Mass/Vol] 32.1 g/dL Normal 28.4-34.8 [facility] Comment on above: Performed By: #### S WCGP #### [address] [address] Boiler Mechanic: Perry Marte MD MCV (RBC) [Entitic vol] 87.0 fL Normal 82.6-102.9 [facility] Comment on above: Performed By: #### S WCGP #### [address] [address] Boiler Mechanic: Perry Marte MD NRBC Automated 0.0 per 100 WBC Normal 0.0 [facility] Comment on above: Performed By: #### S WCGP #### [address] [address] Boiler Mechanic: Perry Marte MD Platelet mean volume (Bld) [Entitic vol] 9.9 fL Normal 8.1-13.5 [facility] Comment on above: Performed By: #### S WCGP #### [address] [address] Boiler Mechanic: Perry Marte MD Platelets (Bld) [#/Vol] 312 10*3/uL Normal 138-453 [facility] Comment on above: Performed By: #### S WCGP #### [address] [address] Boiler Mechanic: Perry Marte MD RBC (Bld) [#/Vol] 4.15 10*6/uL Normal 3.95-5.11 [facility] Comment on above: Performed By: #### S WCGP #### [address] [address] Boiler Mechanic: Perry Marte MD WBC (Bld) [#/Vol] 6.3 10*3/uL Normal 3.5-11.3 [facility] Comment on above: Performed By: #### S WCGP #### [place] [address] [place] [address] Boiler Mechanic: Perry Marte MD Comp Metabolic Profon 2023 Albumin [Mass/Vol] 4.5 g/dL Normal 3.5-5.2 [facility] Comment on above: Performed By: #### S WCGP #### [address] [address] Boiler Mechanic: Perry Marte MD Albumin/Glob Ratio 1.7 Normal 1.0-2.5 [facility] Comment on above: Performed By: #### S WCGP #### [address] [address] Boiler Mechanic: Perry Marte MD Alkaline Phos 86 U/L Normal 35-104 [facility] Comment on above: Performed By: #### S WCGP #### [address] [address] Boiler Mechanic: Perry Marte MD ALT [Catalytic activity/Vol] 19 U/L Normal 10-35 [facility] Comment on above: Performed By: #### S WCGP #### [address] [address] Boiler Mechanic: Perry Marte MD Anion gap [Moles/Vol] 11 mmol/L Normal 9-16 [facility] Comment on above: Performed By: #### S WCGP #### [facility] [address] [place] [address] Boiler Mechanic: Perry Marte MD AST [Catalytic activity/Vol] 19 U/L Normal 10-35 [facility] Comment on above: Performed By: #### S WCGP #### [facility] [address] [place] [address] Boiler Mechanic: Perry Marte MD Bilirubin [Mass/Vol] mg/dL Normal 0.00-1.20 [facility] Comment on above: Performed By: #### S WCGP #### [email or web address] [place] [address] Boiler Mechanic: Perry Marte MD BUN/CRE Ratio 23 High 9-20 [facility] Comment on above: Performed By: #### S WCGP #### [place] [address] [place] [address] Boiler Mechanic: Perry Marte MD Calcium [Mass/Vol] 9.4 mg/dL Normal 8.6-10.4 [facility] Comment on above: Performed By: #### S WCGP #### [address] [address] Boiler Mechanic: Perry Marte MD Chloride [Moles/Vol] 101 mmol/L Normal 98-107 [facility] Comment on above: Performed By: #### S WCGP #### [address] [address] Boiler Mechanic: Perry Marte MD CO2 [Moles/Vol] 26 mmol/L Normal 20-31 [facility] Comment on above: Performed By: #### S WCGP #### [address] [address] Boiler Mechanic: Perry Marte MD Creatinine [Mass/Vol] 0.7 mg/dL Normal 0.50-0.90 [facility] Comment on above: Performed By: #### S WCGP #### [address] [address] Boiler Mechanic: Perry Marte MD GFR/1.73 sq M.predicted among non-blacks MDRD (S/P/Bld) [Vol rate/Area] mL/min/{1.73_m2} Normal >60 [facility] Comment on above: Result Comment: These [...] secretion. Performed By: #### S WCGP #### [address] [address] Boiler Mechanic: Perry Marte MD Glucose [Mass/Vol] 94 mg/dL Normal 74-99 [facility] Comment on above: Performed By: #### S WCGP #### [address] [address] Boiler Mechanic: Perry Marte MD Potassium [Moles/Vol] 4.0 mmol/L Normal 3.7-5.3 [facility] Comment on above: Performed By: #### S WCGP #### [address] [address] Boiler Mechanic: Perry Marte MD Protein [Mass/Vol] 7.1 g/dL Normal 6.6-8.7 [facility] Comment on above: Performed By: #### S WCGP #### [address] [address] Boiler Mechanic: Perry Marte MD Sodium [Moles/Vol] 138 mmol/L Normal 136-145 [facility] Comment on above: Performed By: #### S WCGP #### [address] [address] Boiler Mechanic: Perry Marte MD Urea nitrogen [Mass/Vol] 16 mg/dL Normal 6-20 [facility] Comment on above: Performed By: #### S WCGP #### [address] [address] Boiler Mechanic: Perry Marte MD HCG Screen, Bloodon 10-14-20 24 HCG Screen, Blood Negative Normal NEG [facility] Comment on above: Result Comment: Spec imens with hCG levels near the threshold of the test (25 mIU/mL) may give a negative or indeterminate result. In such cases, another test should be performed with a new specimen in 48-72 hours. If early is suspected clinically in this setting, correlation with quantitative serum b-hCG level is suggested. [facility] has confirmed the use of plasma for this test. This has not been cleared or approved by the U.S. Food and Drug Administration. The FDA has determined that such clearance is not necessary. Performed By: #### S WCGP #### [address] [address] Boiler Mechanic: Perry Marte MD HIV Ag/Abon 10-14-2024 HIV Ag/Ab Non-Reactive Normal [facility] Comment on above: Result Comment: No l aboratory evidence of HIV infection. If acute HIV infection is suspected, consider testing for HIV-1 RNA. Performed By: #### S WCGP #### [address] [address] Boiler Mechanic: Perry Marte MD Hep B Surf Abo 10-14-2024 Hep B Surf Ab <3.50 Normal <10 [facility] Comment on above: Result Comment: REFERENCE RANGE: <10.0 NON-REACTIVE/NOT IMMUNE >=10.0 REACTIVE/IMMUNE Performed By: #### S WCGP #### [address] [address] Boiler Mechanic: Perry Marte MD Hepatitis Acute [facility] 10-14 Hep A Ab,IgM Non-Reactive Normal [facility] Comment on above: Performed By: #### S WCGP #### [email or web address] [address] [place] [address] Boiler Mechanic: Perry Marte MD Hep B Core Ab,IgM Non-Reactive Normal [facility] Comment on above: Performed By: #### S WCGP #### [facility] [address] [address] Boiler Mechanic: Perry Marte MD Hep B Surf Ag Non-Reactive Normal [facility] Comment on above: Performed By: #### S WCGP #### [facility] [place], [place] [phone] Boiler Mechanic: Perry Marte MD Hep C Ab Non-Reactive Normal [facility] Comment on above: Result Comment: [...] PCR. Performed By: #### S WCGP #### [address] [id number] Boiler Mechanic: Perry Marte MD T.pallidum Ab Screenon 10-14 T.pallidum Ab Screen Non-Reactive Normal [facility] Comment on above: Result Comment: T. pallidum antibodies are not detected. There is no serological evidence of infection with T. pallidum (early primary syphilis cannot be excluded). Retest in 2-4 weeks if syphilis is clinically suspect. Performed By: #### S WCGP #### [address] [phone] Boiler Mechanic: Perry Marte MD Chlamydia/GC,DNA Ampon 09-29 Chlamydia Probe Negative Normal [facility] Comment on above: Result Comment: [...] target. Performed By: #### S WCGP #### [facility] [address] [place] [phone] Boiler Mechanic: Perry Marte MD Gonorrhea Probe Negative Normal [facility] Comment on above: Result Comment: [...] target. Performed By: #### S WCGP #### [facility] [address] [place], [place] [phone] Boiler Mechanic: Perry Marte MD Trichomonas/Wet Prepon 09-28 Trichomonas/Wet Prep Specimen Description .VAGINAL SPECIMEN Direct Exam FEW CLUE CELLS SEEN NO TRICHOMONAS SEEN NO YEAST OBSERVED Report Status FINAL 09/28/2024 Abnormal [facility] Comment on above: Performed By: #### W P #### [facility] [address] [place] [address] Boiler Mechanic: Adonis Thomas MD Wet prep, genitalon 09-28-20 24 Interpretation and review of laboratory results Abnormal [facility] Microorganism or agent identified Nom (Unsp spec) FEW CLUE CELLS SEEN Abnormal [facility] Microorganism or agent identified Nom (Unsp spec) NO TRICHOMONAS SEEN [facility] Microorganism or agent identified Nom (Unsp spec) NO YEAST OBSERVED [facility] Specimen Description .VAGINAL SPECIMEN [facility] Trichomonas/Wet Prepon 05-26 Trichomonas/Wet Prep Specimen Description .VAGINAL SPECIMEN Direct Exam NO YEAST OBSERVED NO TRICHOMONAS SEEN NO CLUE CELLS SEEN Report Status FINAL 05/26/2024 Normal [facility] Comment on above: Performed By: #### S WCGP #### [facility] [address] [place], [place] [phone] Boiler Mechanic: Perry Marte MD Wet prep, genitalon 05-26-20 24 Microorganism or agent identified Nom (Unsp spec) NO YEAST OBSERVED [facility] Microorganism or agent identified Nom (Unsp spec) NO TRICHOMONAS SEEN [facility] Microorganism or agent identified Nom (Unsp spec) NO CLUE CELLS SEEN [facility] Specimen Description .VAGINAL SPECIMEN [facility] Chlamydia/GC,DNA Ampon 05-11 Chlamydia Probe Negative Normal NEG [facility] Comment on above: Result Comment: CHLA [...] target. Performed By: #### W P #### [facility] [address] [place] [address] Boiler Mechanic: Adonis Thomas MD Gonorrhea Probe Negative Normal [facility] Comment on above: Result Comment: [...] target. Performed By: #### W P #### [facility] [address] [place] [address] Boiler Mechanic: Adonis Thomas MD Trichomonas/Wet Prepon 05-08 Trichomonas/Wet Prep Specimen Description .VAGINAL SPECIMEN Direct Exam MODERATE CLUE CELLS SEEN NO TRICHOMONAS SEEN NO YEAST OBSERVED Report Status FINAL 05/08/2024 Abnormal [facility] Comment on above: Performed By: #### W P #### [facility] [address] [place] [address] Boiler Mechanic: Adonis Thomas MD UA w/Reflex Cultureon 2023 Bilirubin, SemiQt,Ur Negative Normal NEG [facility] Comment on above: Performed By: #### S WCGP #### [address] [id number] Boiler Mechanic: Perry Marte MD Blood, Urine TRACE Abnormal NEG [facility] Comment on above: Performed By: #### S WCGP #### [address] [address] Boiler Mechanic: Perry Marte MD Clarity (U) Clear Normal CLEAR [facility] Comment on above: Performed By: #### S WCGP #### [address] [address] Boiler Mechanic: Perry Marte MD Color (U) Yellow Normal YEL [facility] Comment on above: Performed By: #### S WCGP #### [address] [address] Boiler Mechanic: Perry Marte MD Glucose Ql (U) Negative Normal NEG [facility] Comment on above: Performed By: #### S WCGP #### [address] [address] Boiler Mechanic: Perry Marte MD Ketones Ql (U) Negative Normal NEG [facility] in Hospital Comment on above: Performed By: #### S WCGP #### [address] [address] Boiler Mechanic: Perry Marte MD Leukocyte esterase Test strip Ql (U) Negative Normal NEG [facility] Comment on above: Performed By: #### S WCGP #### [address] [address] Boiler Mechanic: Perry Marte MD Nitrite,Ur Negative Normal NEG [facility] Comment on above: Performed By: #### S WCGP #### [address] [address] Boiler Mechanic: Perry Marte MD PH,Ur 6.0 Normal 5.0-9.0 [facility] Comment on above: Performed By: #### S WCGP #### [address] [place] [address] Boiler Mechanic: Perry Marte MD Protein Ql (U) Negative Normal NEG [facility] Comment on above: Performed By: #### S WCGP #### [facility] [address] [place] [address] Boiler Mechanic: Perry Marte MD Spec. Carmine,Ur >1.030 High 1.010-1.020 [facility] Comment on above: Performed By: #### S WCGP #### [facility] [address] [place] [address] Boiler Mechanic: Perry Marte MD Urobilinogen,Ur Normal Normal 0.0-1.0 [facility] Comment on above: Performed By: #### S WCGP #### [address] [address] Boiler Mechanic: Perry Marte MD Urinalysis,Microon 4 Bacteria 1+ Abnormal NONE [facility] Comment on above: Performed By: #### W P #### [facility] [address] [place] [address] [place] [address] Boiler Mechanic: Adonis Thomas MD Epithelial cells LM Ql (Urine sed) 5 TO 10 Normal 0-25 [facility] Comment on above: Performed By: #### W P #### [facility] [address] [place] [address] [place] [address] Boiler Mechanic: Adonis Thomas MD Urine RBC's 0 TO 2 Normal 0-2 [facility] Comment on above: Performed By: #### W P #### [facility] [address] [place] [address] Boiler Mechanic: Adonis Thomas MD Urine WBC's 0 TO 2 Normal 0-5 [facility] Comment on above: Performed By: #### W P #### [facility] [address] [place] [address] Boiler Mechanic: Adonis Thomas MD CBC with Diffon 05-04-2024 Abs. Basophil 0.06 k/uL Normal 0.00-0.20 [facility] Comment on above: Performed By: #### H CG, CDP, CP #### [facility] [address] [place] [address] [place] [address] Boiler Mechanic: Adonis Thomas MD #### TREP, HIVCMB, PHEP #### [place] [address] Boiler Mechanic: Perry Marte MD Abs.Imm.Granulocyt e <0.03 Normal 0.00-0.30 [facility] Comment on above: Performed By: #### H CG, CDP, CP #### [address] [place] [phone] ( Boiler Mechanic: Adonis Thomas MD #### TREP, HIVCMB, PHEP #### [place] [address] Boiler Mechanic: Perry Matre MD Abs.Neutrophil (Seg) 3.64 k/uL Normal 1.50-8.10 [facility] Comment on above: Performed By: #### H CG, CDP, CP #### [address] [place] [address] Boiler Mechanic: Adonis Thomas MD #### TREP, HIVCMB, PHEP #### [place] [address] Boiler Mechanic: Perry Marte MD Basophils/100 WBC (Bld) 1 % Normal 0-2 [facility] Comment on above: Performed By: #### H CG, CDP, CP #### [facility] [address] [place] [address] Dr. [place] [phone] ( Boiler Mechanic: Adonis Thomas MD #### TREP, HIVCMB, PHEP #### [place] [address] [place], [place] [phone] Boiler Mechanic: Perry Marte MD Eosinophils (Bld) [#/Vol] 0.11 10*3/uL Normal 0.00-0.44 [facility] Comment on above: Performed By: #### H CG, CDP, CP #### [facility] [address] [place] [address] Dr. [place] [phone] Boiler Mechanic: Adonis Thomas MD #### TREP, HIVCMB, PHEP #### [address] [phone] Boiler Mechanic: Perry Marte MD Eosinophils/100 WBC (Bld) 2 % Normal 1-4 [facility] Comment on above: Performed By: #### H CG, CDP, CP #### [address] [place] [address] Boiler Mechanic: Adonis Thomas MD #### TREP, HIVCMB, PHEP #### [place] [phone] Boiler Mechanic: Perry Marte MD Erythrocyte distribution width (RBC) [Ratio] 12.9 % Normal 11.8-14.4 [facility] Comment on above: Performed By: #### H CG, CDP, CP #### [address] [place] [phone] Boiler Mechanic: Adonis Thomas MD #### TREP, HIVCMB, PHEP #### [address] [phone] Boiler Mechanic: Perry Marte MD Hematocrit (Bld) [Volume fraction] 34.4 % Low 36.3-47.1 [facility] Comment on above: Performed By: #### H CG, CDP, CP #### [address] [place] [phone] Boiler Mechanic: Adonis Thomas MD #### TREP, HIVCMB, PHEP #### [address] [phone] Boiler Mechanic: Perry Marte MD Hemoglobin (Bld) [Mass/Vol] 11.4 g/dL Low 11.9-15.1 [facility] Comment on above: Performed By: #### H KASHIF CDP, CP #### [facility] [address] [place] [address] [place] [address]683 Boiler Mechanic: Adonis Thomas MD #### TREP, HIVCMB, PHEP #### [place] [address] Boiler Mechanic: Perry Marte MD Immature granulocytes/100 WBC (Bld) 0 % Normal 0 [facility] Comment on above: Performed By: #### H JOSÉ ROWLAND, CP #### [address] [place] 1996683 Boiler Mechanic: Adonis Thomas MD #### TREP, HIVCMB, PHEP #### [place] [phone] Boiler Mechanic: Perry Marte MD Lymphocytes (Bld) [#/Vol] 1.91 10*3/uL Normal 1.10-3.70 [facility] Comment on above: Performed By: #### H KASHIF CDP, CP #### [address] [place] 1996683 Boiler Mechanic: Adonis Thomas MD #### TREP, HIVCMB, PHEP #### [place] [phone] Boiler Mechanic: Perry Marte MD Lymphocytes/100 WBC (Bld) 30 % Normal 24-43 [facility] Comment on above: Performed By: #### H JOSÉ ROWLAND, CP #### [facility] [address] [place] [address] Dr. [place] [phone] Boiler Mechanic: Adonis Thomas MD #### TREP, HIVCMB, PHEP #### [place] [address] [place], [place] [phone] Boiler Mechanic: Perry Marte MD MCH (RBC) [Entitic mass] 29.4 pg Normal 25.2-33.5 [facility] Comment on above: Performed By: #### H CG, CDP, CP #### [address] [place] [phone] Boiler Mechanic: Adonis Thomas MD #### TREP, HIVCMB, PHEP #### [place] [phone] Boiler Mechanic: Perry Marte MD MCHC (RBC) [Mass/Vol] 33.1 g/dL Normal 28.4-34.8 [facility] Comment on above: Performed By: #### H CG, CDP, CP #### [address] [place] [phone] Boiler Mechanic: Adonis Thomas MD #### ARMANDO, HIVCMB, PHEP #### [address] [phone] Boiler Mechanic: Perry Marte MD MCV (RBC) [Entitic vol] 88.7 fL Normal 82.6-102.9 [facility] Comment on above: Performed By: #### H CG, CDP, CP #### [address] [place] [phone] Boiler Mechanic: Adonis Thomas MD #### TREP, HIVCMB, PHEP #### [place] [address] [place], [place] [phone] Boiler Mechanic: Perry Marte MD Monocytes (Bld) [#/Vol] 0.55 10*3/uL Normal 0.10-1.20 [facility] Comment on above: Performed By: #### H CG, CDP, CP #### [facility] [address] [place], [place] [phone] Boiler Mechanic: Adonis Thomas MD #### TREP, HIVCMB, PHEP #### [address] [phone] Boiler Mechanic: Perry Marte MD Monocytes/100 WBC (Bld) 9 % Normal 3-12 [facility] Comment on above: Performed By: #### H CG, CDP, CP #### [facility] [address] [place], [place] [phone] Boiler Mechanic: Adonis Thomas MD #### TREP, HIVCMB, PHEP #### [address] [phone] Boiler Mechanic: Perry Marte MD Neutrophil (Seg) 58 % Normal 36-65 [facility] Comment on above: Performed By: #### H CG, CDP, CP #### [facility] [address] [place], [place] [phone] Boiler Mechanic: Adonis Thomas MD #### TREP, HIVCMB, PHEP #### [address] [phone] Boiler Mechanic: Perry Marte MD NRBC Automated 0.0 per 100 WBC Normal 0.0 [facility] Comment on above: Performed By: #### H CG, CDP, CP #### [facility] [address] [place], [place] [phone] Boiler Mechanic: Adonis Thomas MD #### TREP, HIVCMB, PHEP #### [address] [phone] Boiler Mechanic: Perry Marte MD Platelet mean volume (Bld) [Entitic vol] 9.6 fL Normal 8.1-13.5 [facility] Comment on above: Performed By: #### H CG, CDP, CP #### [facility] [address] [place] [address] [place] [address] Boiler Mechanic: Adonis Thomas MD #### TREP, HIVCMB, PHEP #### [address] [address] Boiler Mechanic: Perry Marte MD Platelets (Bld) [#/Vol] 333 10*3/uL Normal 138-453 [facility] Comment on above: Performed By: #### H CG, CDP, CP #### [facility] [address] [place] [address] [place] [address] Boiler Mechanic: Adonis Thomas MD #### TREP, HIVCMB, PHEP #### [address] [address] Boiler Mechanic: Perry Marte MD RBC (Bld) [#/Vol] 3.88 10*6/uL Low 3.95-5.11 [facility] Comment on above: Performed By: #### H CG, CDP, CP #### [facility] [address] [place] [address] [place] [address] Boiler Mechanic: Adonis Thomas MD #### TREP, HIVCMB, PHEP #### [address] [address] Boiler Mechanic: Perry Marte MD WBC (Bld) [#/Vol] 6.3 10*3/uL Normal 3.5-11.3 [facility] Comment on above: Performed By: #### H CG, CDP, CP #### [facility] [address] [place] [address] [place] [address] Boiler Mechanic: Adonis Thomas MD #### TREP, HIVCMB, PHEP #### [address] [address] Boiler Mechanic: Perry Marte MD Comp Metabolic Profon 2023 Albumin [Mass/Vol] 4.2 g/dL Normal 3.5-5.2 [facility] Comment on above: Performed By: #### H CG, CDP, CP #### [facility] [address] [place], [place] [phone] Boiler Mechanic: Adonis Thomas MD #### TREP, HIVCMB, PHEP #### [place] [address] [place], [place] 4781108 Boiler Mechanic: Perry Marte MD Albumin/Glob Ratio 1.6 Normal 1.0-2.5 [facility] Comment on above: Performed By: #### H CG, CDP, CP #### [facility] [address] [place], [place] [phone] Boiler Mechanic: Adonis Thomas MD #### TREP, HIVCMB, PHEP #### [address] [phone] Boiler Mechanic: Perry Marte MD Alkaline Phos 77 U/L Normal 35-104 [facility] Comment on above: Performed By: #### H CG, CDP, CP #### [facility] [address] [place], [place] [phone] Boiler Mechanic: Adonis Thomas MD #### TREP, HIVCMB, PHEP #### [place] [address] [place] [address] Boiler Mechanic: Perry Marte MD ALT [Catalytic activity/Vol] 16 U/L Normal 5-33 [facility] Comment on above: Performed By: #### H CG, CDP, CP #### [facility] [address] [place], [place] [phone] Boiler Mechanic: Adonis Thomas MD #### TREP, HIVCMB, PHEP #### [address] [phone] Boiler Mechanic: Perry Marte MD Anion gap [Moles/Vol] 8 mmol/L Low 9-17 [facility] Comment on above: Performed By: #### H CG, CDP, CP #### [facility] [address] [place], [place] 7356583 Boiler Mechanic: Adonis Thomas MD #### TREP, HIVCMB, PHEP #### [address] [phone] Boiler Mechanic: Perry Marte MD AST [Catalytic activity/Vol] 13 U/L Normal <32 [facility] Comment on above: Performed By: #### H CG, CDP, CP #### [facility] [address] [place], [place] 1583983 Boiler Mechanic: Adonis Thomas MD #### TREP, HIVCMB, PHEP #### [address] [phone] Boiler Mechanic: Perry Marte MD Bilirubin [Mass/Vol] 0.4 mg/dL Normal 0.3-1.2 [facility] Comment on above: Performed By: #### H CG, CDP, CP #### [facility] [address] [place] [address] Dr. [place], [place] [phone] Boiler Mechanic: Adonis Thomas MD #### TREP, HIVCMB, PHEP #### [place] [address] [place], [place] [phone] Boiler Mechanic: Perry Marte MD BUN/CRE Ratio 27 High 9-20 [facility] Comment on above: Performed By: #### H CG, CDP, CP #### [facility] [address] [place], [place] [phone] Boiler Mechanic: Adonis Thomas MD #### TREP, HIVCMB, PHEP #### [address] [phone] Boiler Mechanic: Perry Marte MD Calcium [Mass/Vol] 9.0 mg/dL Normal 8.6-10.4 [facility] Comment on above: Performed By: #### H CG, CDP, CP #### [facility] [address] [place], [place] 2083683 Boiler Mechanic: Adonis Thomas MD #### TREP, HIVCMB, PHEP #### [facility] [address] [place], [place] 2553608 Boiler Mechanic: Perry Marte MD Chloride [Moles/Vol] 104 mmol/L Normal 98-107 [facility] Comment on above: Performed By: #### H CG, CDP, CP #### [facility] [address] [place] [address] [place], [place] 6563983 Boiler Mechanic: Adonis Thomas MD #### TREP, HIVCMB, PHEP #### [place] [address] [place], [place] 6090208 Boiler Mechanic: Perry Marte MD CO2 [Moles/Vol] 29 mmol/L Normal 20-31 [facility] Comment on above: Performed By: #### H CG, CDP, CP #### [facility] [address] [place] [address] [place], [place] [phone] Boiler Mechanic: Adonis Thomas MD #### TREP, HIVCMB, PHEP #### [facility] [address] [place], [place] [phone] Boiler Mechanic: Perry Marte MD Creatinine [Mass/Vol] 0.7 mg/dL Normal 0.5-0.9 [facility] Comment on above: Performed By: #### H CG, CDP, CP #### [facility] [address] [place] [address] [place], [place] [phone] Boiler Mechanic: Adonis Thomas MD #### TREP, HIVCMB, PHEP #### [address] [phone] Boiler Mechanic: Perry Marte MD GFR/1.73 sq M.predicted among non-blacks MDRD (S/P/Bld) [Vol rate/Area] mL/min/{1.73_m2} Normal >60 [facility] Comment on above: Result Comment: These [...] renal tubular secretion. Performed By: #### H KASHIF, CDP, CP #### [address] [place] [address] Boiler Mechanic: Adonis Thomas MD #### TREP, HIVCMB, PHEP #### [address] [phone] Boiler Mechanic: Perry Marte MD Glucose [Mass/Vol] 92 mg/dL Normal 70-99 [facility] Comment on above: Performed By: #### H CG, CDP, CP #### [address] [place] [address] Boiler Mechanic: Adonis Thomas MD #### TREP, HIVCMB, PHEP #### [address] [phone] Boiler Mechanic: Perry Marte MD Potassium [Moles/Vol] 3.4 mmol/L Low 3.7-5.3 [facility] Comment on above: Performed By: #### H CG, CDP, CP #### [address] [place] [address] Boiler Mechanic: Adonis Thomas MD #### TREP, HIVCMB, PHEP #### [address] [place] [address] Boiler Mechanic: Perry Marte MD Protein [Mass/Vol] 6.9 g/dL Normal 6.4-8.3 [facility] Comment on above: Performed By: #### H CG, CDP, CP #### [facility] [address] [place], [place] 4163783 Boiler Mechanic: Adonis Thomas MD #### TREP, HIVCMB, PHEP #### [place] [address] [place], [place] 9047208 Boiler Mechanic: Perry Marte MD Sodium [Moles/Vol] 141 mmol/L Normal 135-144 [facility] Comment on above: Performed By: #### H CG, CDP, CP #### [facility] [address] [place] [address] [place], [place] [phone] Boiler Mechanic: Adonis Thomas MD #### TREP, HIVCMB, PHEP #### [address] [phone] Boiler Mechanic: Perry Marte MD Urea nitrogen [Mass/Vol] 19 mg/dL Normal 6-20 [facility] Comment on above: Performed By: #### H CG, CDP, CP #### [facility] [address] [place] [address] [place], [place] [phone] Boiler Mechanic: Adonis Thomas MD #### TREP, HIVCMB, PHEP #### [address] [phone] Boiler Mechanic: Perry Marte MD HCG Screen, Bloodon 05-04-20 24 HCG Screen, Blood Negative Normal NEG [facility] Comment on above: Result Comment: Spec imens with hCG levels near the threshold of the test (25 mIU/mL) may give a negative or indeterminate result. In such cases, another test should be performed with a new specimen in 48-72 hours. If early is suspected clinically in this setting, correlation with quantitative serum b-hCG level is suggested. [facility] has confirmed the use of plasma for this test. This has not been cleared or approved by the U.[place]. Food and Drug Administration. The FDA has determined that such clearance is not necessary. Performed By: #### H JOSÉ ROWLAND, CP #### [address] [place], [place] [phone] Boiler Mechanic: Adonis Thomas MD #### TREP, HIVCMB, PHEP #### [address] [phone] Boiler Mechanic: Perry Marte MD HIV Ag/Abon 05-04-2024 HIV Ag/Ab Non-Reactive Normal [facility] Comment on above: Result Comment: No l aboratory evidence of HIV infection. If acute HIV infection is suspected, consider testing for HIV-1 RNA. Performed By: #### H JOSÉ ROWLAND, CP #### [address] [place], [place] 3989383 Boiler Mechanic: Adonis Thomas MD #### TREP, HIVCMB, PHEP #### [address] [phone] Boiler Mechanic: Perry Marte MD Hepatitis Acute [facility] 05-04 Hep A Ab,IgM Non-Reactive Normal [facility] Comment on above: Performed By: #### H JOSÉ ROWLAND, CP #### [address] [place], [place] 6990283 Boiler Mechanic: Adonis Thomas MD #### TREP, HIVCMB, PHEP #### [place] [address] [place] [address] Boiler Mechanic: Perry Marte MD Hep B Core Ab,IgM Non-Reactive Normal [facility] Comment on above: Performed By: #### H JOSÉ ROWLAND, CP #### [address] [place] [address] Boiler Mechanic: Adonis Thomas MD #### TREP, HIVCMB, PHEP #### [facility] [place], [place] [phone] Boiler Mechanic: Perry Marte MD Hep B Surf Ag Non-Reactive Normal [facility] Comment on above: Performed By: #### H CG, CDP, CP #### [address] [place] [address] Boiler Mechanic: Adonis Thomas MD #### TREP, HIVCMB, PHEP #### [address] [phone] Boiler Mechanic: Perry Marte MD Hep C Ab Non-Reactive Normal [facility] Comment on above: Result Comment: [...] By: #### H JOSÉ ROWLAND, CP #### [address] [place] [address] Boiler Mechanic: Adonis Thomas MD #### TREP, HIVCMB, PHEP #### [facility] [address] [place] [address] [phone] Boiler Mechanic: Perry Marte MD T.pallidum Ab Screenon 05-04 T.pallidum Ab Screen Non-Reactive Normal [facility] Comment on above: Result Comment: T. pallidum antibodies are not detected. There is no serological evidence of infection with T. pallidum (early primary syphilis cannot be excluded). Retest in 2-4 weeks if syphilis is clinically suspect. Performed By: #### S WCGP #### [address] [id number] Boiler Mechanic: Perry Marte MD UA w/Reflex Cultureon 2023 Bilirubin, SemiQt,Ur Negative Normal NEG [facility] Comment on above: Performed By: #### U MICAO, UAX #### [facility] [address] [place], [place] [phone] Boiler Mechanic: Adonis Thomas MD Blood, Urine 2+ Abnormal NEG [facility] Comment on above: Performed By: #### U MICAO, UAX #### [facility] [address] [place] [address] Boiler Mechanic: Adonis Thomas MD Clarity (U) Clear Normal CLEAR [facility] Comment on above: Performed By: #### U MICAO, UAX #### [facility] [address] [place], [place] 4519783 Boiler Mechanic: Adonis Thomas MD Color (U) Yellow Normal YEL [facility] Comment on above: Performed By: #### U MICAO, UAX #### [facility] [address] [place] [address] Boiler Mechanic: Adonis Thomas MD Glucose Ql (U) Negative Normal NEG [facility] Comment on above: Performed By: #### U MICAO, UAX #### [facility] [address] [place] [address] [place] [address] Boiler Mechanic: Adonis Thomas MD Ketones Ql (U) Negative Normal NEG [facility] Comment on above: Performed By: #### U MICAO, UAX #### [facility] [address] [place], [place] [phone] Boiler Mechanic: Adonis Thomas MD Leukocyte esterase Test strip Ql (U) Negative Normal NEG [facility] Comment on above: Performed By: #### U MICAO, UAX #### [facility] [address] [place], [place] 6443583 Boiler Mechanic: Adonis Thomas MD Nitrite,Ur Negative Normal NEG [facility] Comment on above: Performed By: #### U MICAO, UAX #### [facility] [address] [place] [address] [place] [address] Boiler Mechanic: Adonis Thomas MD PH,Ur 6.0 Normal 5.0-9.0 [facility] Comment on above: Performed By: #### U MICAO, UAX #### [address] [place], [place] [address] Boiler Mechanic: Adonis Thomas MD Protein Ql (U) Negative Normal NEG [facility] Comment on above: Performed By: #### U MICAO, UAX #### [address] [place], [facility] Boiler Mechanic: Adonis Thomas MD Spec. Carmine,Ur >1.030 High 1.010-1.020 [facility] Comment on above: Performed By: #### U MICAO, UAX #### [address] [place], [place] [phone] Boiler Mechanic: Adonis Thomas MD Urobilinogen,Ur Normal Normal 0.0-1.0 [facility] Comment on above: Performed By: #### U MICAO, UAX #### [address] [place], [place] [address] Boiler Mechanic: Adonis Thomas MD Urinalysis,Microon 4 Bacteria 1+ Abnormal NONE [facility] Comment on above: Performed By: #### U MICAO, UAX #### [address] [place], [facility] Boiler Mechanic: Adonis Thomas MD Epithelial cells LM Ql (Urine sed) 10 TO 20 Normal 0-25 [facility] Comment on above: Performed By: #### U MICAO, UAX #### [address] [place], [facility] Boiler Mechanic: Adonis Thomas MD Urine RBC's 2 TO 5 Normal 0-2 [facility] Comment on above: Performed By: #### U WALDEMARO, UAX #### [facility] [address] [place] [address] Boiler Mechanic: Adonis Thomas MD Urine WBC's 0 TO 2 Normal 0-5 [facility] Comment on above: Performed By: #### U WALDEMARO, UAX #### [facility] [address] [place] [address] Boiler Mechanic: Adonis Thomas MD C. trachomatis and N. gonorr hoeae DNA JOSE R+probe Nom (Unsp spec)on 02-21-2024 C. trachomatis rRNA JOSE R+probe Ql (Unsp spec) Negative Normal Negative [facility] Comment on above: Order Comment: The A [...] By: #### 3 6903-3 #### RONAL Gerber ([id number]) [facility] ([facility]) [address] [place], [place] [phone] N. gonorrhoeae DNA Probe+sig amp Ql (Unsp spec) Negative Normal Negative [facility] Comment on above: Order Comment: The A [...] By: #### 3 6903-3 #### RONAL Gerber ([id number]) [facility] ([facility]) [address] [place] [address] Trichomonas vaginalis rRNAon 02-21-2024 T. vaginalis rRNA JOSE R+probe Ql (Unsp spec) Positive Abnormal Negative, Invalid, TRICH neg [facility] Comment on above: Order Comment: The A PTIMA Trichomonas vaginalis assay is FDA-approved for testing on female endocervical swabs, vaginal swabs, and ThinPrep liquid pap samples. Performance characteristics for Trichomonas vaginalis on specific [id number] sample types (female and male urine and male urethral swabs) have been validated by [facility]. This laboratory is certified by CLIA to perform high complexity testing. Samples from all other sites are not validated for this method. Result Comment: Perf ormance characteristics for Trichomonas Vaginalis testing on urine samples has been validated by [facility]. Testing on this sample type is not FDA-approved, but such approval is not necessary. This laboratory is certified by CLIA to perform high complexity testing. Performed By: #### 4 6154-1 #### RONAL Gerber ([id number]) [facility] ([facility]) [address] [place] [address] Alcoholon 05-29-2023 Blood Alcohol Concentration Not indicated Normal [facility] Comment on above: Performed By: #### A LCOH #### [facility] [address] [place] [address] Ethanol [Mass/Vol] mg/dL Normal [facility] Comment on above: Performed By: #### A LCOH #### [facility] [address] [place] [address] Comprehensive Metabolic Pane shad 05-29-2023 Albumin [Mass/Vol] 5.2 g/dL Critically high 3.5-4.6 [facility] Comment on above: Performed By: #### C MP #### [facility] [address] [place] [address] ALP [Catalytic activity/Vol] 64 U/L Normal 40-130 [facility] Comment on above: Performed By: #### C MP #### [facility] [address] [place] [address] ALT [Catalytic activity/Vol] 17 U/L Normal 0-33 [facility] Comment on above: Performed By: #### C MP #### [facility] [address] [place] [address] Anion gap [Moles/Vol] 19 mmol/L Critically high 9-15 [facility] Comment on above: Performed By: #### C MP #### [facility] [address] [place] [address] AST [Catalytic activity/Vol] 22 U/L Normal 0-35 [facility] Comment on above: Performed By: #### C MP #### [facility] [address] [place] [address] Bilirubin [Mass/Vol] 0.8 mg/dL Critically high 0.2-0.7 [facility] Comment on above: Performed By: #### C MP #### [facility] [address] [place] [address] Calcium [Mass/Vol] 10.2 mg/dL Critically high 8.5-9.9 [facility] Comment on above: Performed By: #### C MP #### [facility] [address] [place] [address] Chloride [Moles/Vol] 99 mmol/L Normal 95-107 [facility] Comment on above: Performed By: #### C MP #### [facility] [address] [place] [address] CO2 [Moles/Vol] 22 mmol/L Normal 20-31 [facility] Comment on above: Performed By: #### C MP #### [facility] [address] [place] [address] Creatinine [Mass/Vol] 0.60 mg/dL Normal 0.50-0.90 [facility] Comment on above: Performed By: #### C MP #### [facility] [address] [place] [address] GFR >60.0 Normal >60 [facility] Comment on above: Result Comment: Cristy lambc calculator link https://www.kidney.org/professionals/kdoqi/gfr_calculatorped [...] secretion. Performed By: #### C MP #### [facility] [address] [place] [address] Globulin (S) [Mass/Vol] 2.6 g/dL Normal 2.3-3.5 [facility] Comment on above: Performed By: #### C MP #### [facility] [address] [place] [address] Glucose [Mass/Vol] 102 mg/dL Critically high 70-99 [facility] Comment on above: Performed By: #### C MP #### [facility] [address] [place] [address] Potassium [Moles/Vol] 3.9 mmol/L Normal 3.4-4.9 [facility] Comment on above: Performed By: #### C MP #### [facility] [address] [place] [address] Protein [Mass/Vol] 7.8 g/dL Normal 6.3-8.0 [facility] Comment on above: Performed By: #### C MP #### [facility] [address] [place] [address] Sodium [Moles/Vol] 140 mmol/L Normal 135-144 [facility] Comment on above: Performed By: #### C MP #### [facility] [address] [place] [address] Urea nitrogen [Mass/Vol] 9 mg/dL Normal 6-20 [facility] Comment on above: Performed By: #### C MP #### [facility] [address] [place] [address] UR Drugs of Abuse Panelon Drug Screen Comment see below Normal [facility] Comment on above: Result Comment: This method is a screening test to detect only these drug classes as part of a medical workup. Confirmatory testing by another method should be ordered if clinically indicated. Performed By: #### U DRGS #### [facility] [address] [place] [address] UR Amphetamines Screen Negative Normal Negative < [facility] Comment on above: Performed By: #### U DRGS #### [facility] [address] [place] [address] UR Barbiturates Screen Negative Normal Negative < [facility] Comment on above: Performed By: #### U DRGS #### [facility] [address] [place] [address] UR Benzo Screen Negative Normal Negative < [facility] Comment on above: Performed By: #### U DRGS #### [facility] [address] [place] [address] UR Cannabinoids Screen Negative Normal Negative < [facility] Comment on above: Performed By: #### U DRGS #### [facility] [address] [place] [address] UR Cocaine Screen Positive Abnormal Negative < [facility] Comment on above: Performed By: #### U DRGS #### [facility] [address] [place] [address] UR Fentanyl Screen Negative Normal Negative < [facility] Comment on above: Performed By: #### U DRGS #### [facility] [address] [place] [address] UR Methadone Screen Negative Normal Negative < [facility] Comment on above: Performed By: #### U DRGS #### [facility] [address] [place] [address] UR Opiates Screen Negative Normal Negative < [facility] Comment on above: Performed By: #### U DRGS #### [facility] [address] [place] [address] UR Oxycodone Screen Negative Normal Negative < [facility] Comment on above: Performed By: #### U DRGS #### [facility] [address] [place] [address] UR PCP Screen Negative Normal Negative < [facility] Comment on above: Performed By: #### U DRGS #### [facility] [address] [place] [address] UR Propoxyphene Screen Negative Normal Negative < [facility] Comment on above: Performed By: #### U DRGS #### [facility] [address] [place] [address] Urinalysis, reflex to micros copicon 05-29-2023 Bilirubin Ql (U) Negative Normal Negative [facility] Comment on above: Performed By: #### U A #### [facility] [address] [place] [address] Clarity (U) Clear Normal Clear [facility] Comment on above: Performed By: #### U A #### [facility] [address] [place] [address] Color (U) Yellow Normal Straw/[place] [facility] Comment on above: Performed By: #### U A #### [facility] [address] [place] [address] Glucose Ql (U) Negative Normal Negative [facility] Comment on above: Performed By: #### U A #### [facility] [address] [place] [address] Hemoglobin Ql (U) Negative Normal Negative [facility] Comment on above: Performed By: #### U A #### [facility] [address] [place] [address] Ketones Ql (U) 15 mg/dL Abnormal Negative [facility] Comment on above: Performed By: #### U A #### [facility] [address] [place] [address] Leukocyte esterase Test strip Ql (U) TRACE Abnormal Negative [facility] Comment on above: Performed By: #### U A #### [facility] [address] [place] [address] Nitrite Ql (U) Negative Normal Negative [facility] Comment on above: Performed By: #### U A #### [facility] [address] [place] [address] pH (U) 7.5 [pH] Normal 5.0-9.0 [facility] Comment on above: Performed By: #### U A #### [facility] [address] [place] [address] Protein Ql (U) Negative Normal Negative [facility] Comment on above: Performed By: #### U A #### [facility] [address] [place] [address] Specific gravity (U) [Rel density] 1.008 Normal 1.005-1.03 [facility] Comment on above: Performed By: #### U A #### [facility] [address] [place] [address] Urobilinogen Qn (U) 0.2 {Vielka'U}/dL Normal < 2.0 [facility] Comment on above: Performed By: #### U A #### [facility] [address] [place] [address] Urine Microscopicon 05-29-20 23 Urine Bacteria MANY Abnormal Negative [facility] Comment on above: Performed By: #### A LCOH #### [facility] [address] [place] [address] Urine Epithelial Cells Auto 0-2 Normal 0-5 [facility] Comment on above: Performed By: #### A LCOH #### [facility] [address] [place] [address] Urine Hyaline Casts Auto 3-5 Normal 0-5 [facility] Comment on above: Performed By: #### A LCOH #### [facility] [address] [place] [address] Urine RBC Auto 0-2 Normal 0-5 [facility] Comment on above: Performed By: #### A LCOH #### [facility] [address] [place] [address] Urine WBC Auto 10-20 Abnormal 0-5 [facility] Comment on above: Performed By: #### A LCOH #### [facility] [address] [place] [address] RAMP SERVICE AGENT - Office Visiton 03-0 RAMP SERVICE AGENT - Office Visit Provider Impressions 27-year-old myofascial sexual pain Physical therapy Follow-up in 1 month Chief Complaint Est pt here for pain with intercourse and with 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 Vitals Vital Signs Recorded: 09Jan2023 04:18PM Isotuzet375, LUE, Sitting Eamvsinpj21, LUE, Sitting Height5 ft 6 in Iqwtys400 lb 6 oz BMI Swjjrbguzv19.59 kg/m2 BSA Calculated1.78 Tobacco Useb) No PHQ-2 #1. Over the last 2 weeks have you felt down, depressed or hopeless? (If yes, answer PHQ-9 below)No PHQ-2 #2. Over the last 2 weeks have you felt little interest or pleasure in doing things? (If yes, answer PHQ-9 below)No Falls Screening (Age 18+)a) No falls within the last year [id number] Signatures Electronically signed by : Cally Meyer MD; Jan 10 2023 9:46AM EST (Author) Normal [employer] Tobacco Screening.on 023 Adult depression screening assessment No [facility] [employer] Phone: Fall risk assessment a) No falls within the last year [facility] mobile [employer] Phone: Last menstrual period start date 22Dec2022 [facility] [employer] Work Phone: Tobacco use status [facility] b) No [facility] [employer] Phone: Established Visit (Orthopaed ic Surgery)on 11-22-2022 [...] grammatical areas may persist related to the [employer] software Chacorta Erwin MD Office: . Active [...] use (V49.89) (more content not included)... Normal [employer] Provider Note - ED v3on - Provider Note - ED v3 Provider Note: [...] SIGNS: T PRBP SpO2O2(LPM) %FiO2 Method 21-Nov-2022 01:56:[id number]/63 100 room air, no respiratory support MDM [...] today. N (more content not included)... Normal [facility] Triage - EDon 11-21-2022 Triage - ED [...] BMI (kg/m2): 24.243 Calculated BSA (m2) 1.78 Chandler Coma Scale: Best Eye Response: (E4) spontaneous Best Motor Response: (M6) obeys commands Best Verbal Response: (V5) oriented Chandler Score: 15 Cough lasting greater than 3 [...] Updated: 21-Nov-2022 02:18 by Kashif Hammond (NIHARIKA) [facility] Provider Note - ED v3on 11-04 [...] SIGNS: T PRBP SpO2O2(LPM) %FiO2 Method 20-Nov-2022 13:51:[id number]/62 97 room air, no respiratory support MDM [...] ill patient: no Electronic Signatures: Elinor Sagastume (INDUSTRIAL ECOLOGY TECHNICIAN-BEVERAGE SALES CONSULTANT) (Signed 30-Nov-2022 06:11) Authored: ED Notes, HPI, PMH, Results/Vital Signs, MDM/ED Course, Clinical Impression, Attestation, Chart Review, Scores Last Updated: 30-Nov-2022 06:11 by Elinor Sagastume (INDUSTRIAL ECOLOGY TECHNICIAN-BEVERAGE SALES CONSULTANT) References: 1. Data Referenced From Triage - ED 20-Nov-2022 13:51 Normal [facility] Radiologyon 11-20-2022 XR Foot 3 [facility]: Triage - EDon 11-20-2022 Triage [...] Accompanied By: self Language: Spoken Language Preferred: [facility] [place] Reading Language Preferred: [facility] Medical Field Representative Requested: no language interpreter was requested MDRO: History of MDRO: [...] BMI (kg/m2): 24.208 Calculated BSA (m2) 1.78 Chandler Coma Scale: Best Eye Response: (E4) spontaneous [...] past 30 days PAIN Pain Scale Used: JONH Pain Rating (0-10): 9 = Severe Past Medical History: Past Medical History Reviewedyes Electronic Signatures: Tara Pickett (RN) (Signed 20-Nov-2022 13:54) Entered: Risk Screens, Pain, Arrival, ABCD, Travel History, Chart Review, Scores, Past Medical History Authored: Quick Triage, Risk Screens, Pain, Arrival, ABCD, Travel History, Chart Review, Scores, Past Medical History Last Updated: 20-Nov-2022 13:54 by Tara Pickett (RN) Normal [facility] Alcoholon 10-08-2022 Blood Alcohol Concentration Not indicated Normal [facility] Comment on above: Performed By: #### A LCOH #### [facility] [address] [place] [address] Ethanol [Mass/Vol] mg/dL Normal [facility] Comment on above: Performed By: #### A LCOH #### [facility] [address] [place] [address] CBC With Platelet and Differ entialon 10-08-2022 Basophils (Bld) [#/Vol] 0.0 10*3/uL Normal 0.0-0.2 [facility] Comment on above: Performed By: #### C BCWD #### [facility] [address] [place] [address] Basophils/100 WBC (Bld) 0.5 % Normal [facility] Comment on above: Performed By: #### C BCWD #### [facility] [address] [place] [address] Eosinophils (Bld) [#/Vol] 0.0 10*3/uL Normal 0.0-0.7 [facility] Comment on above: Performed By: #### C BCWD #### [facility] [address] [place] [address] Eosinophils/100 WBC (Bld) 0.5 % Normal [facility] Comment on above: Performed By: #### C BCWD #### [facility] [address] [place] [address] Erythrocyte distribution width (RBC) [Ratio] 13.8 % Normal 11.5-14.5 [facility] Comment on above: Performed By: #### C BCWD #### [facility] [address] [place] [address] Hematocrit (Bld) [Volume fraction] 39.4 % Normal 37.0-47.0 [facility] Comment on above: Performed By: #### C BCWD #### [facility] [address] [place] [address] Hemoglobin (Bld) [Mass/Vol] 13.2 g/dL Normal 12.0-16.0 [facility] Comment on above: Performed By: #### C BCWD #### [facility] [address] [place] [address] Lymphocytes (Bld) [#/Vol] 1.4 10*3/uL Normal 1.0-4.8 [facility] Comment on above: Performed By: #### C BCWD #### [facility] [address] [place] [address] Lymphocytes/100 WBC (Bld) 19.2 % Normal [facility] Comment on above: Performed By: #### C BCWD #### [facility] [address] [place] [address] MCH (RBC) [Entitic mass] 29.2 pg Normal 27.0-31.3 [facility] Comment on above: Performed By: #### C BCWD #### [facility] [address] [place] [address] MCHC 33.6 % Normal 33.0-37.0 [facility] Comment on above: Performed By: #### C BCWD #### [facility] [address] [place] [address] MCV (RBC) [Entitic vol] 87.1 fL Normal 79.4-94.8 [facility] Comment on above: Performed By: #### C BCWD #### [facility] [address] [place] [address] Monocytes (Bld) [#/Vol] 0.8 10*3/uL Normal 0.2-0.8 [facility] Comment on above: Performed By: #### C BCWD #### [facility] [address] [place] [address] Monocytes/100 WBC (Bld) 10.8 % Normal [facility] Comment on above: Performed By: #### C BCWD #### [facility] [address] [place] [address] Neutrophils (Bld) [#/Vol] 5.0 10*3/uL Normal 1.4-6.5 [facility] Comment on above: Performed By: #### C BCWD #### [facility] [address] [place] [address] Neutrophils/100 WBC (Bld) 69.0 % Normal [facility] Comment on above: Performed By: #### C BCWD #### [facility] [address] [place] [address] Platelets (Bld) [#/Vol] 291 10*3/uL Normal 130-400 [facility] Comment on above: Performed By: #### C BCWD #### [facility] [address] [place] [address] RBC (Bld) [#/Vol] 4.53 10*6/uL Normal 4.20-5.40 [facility] Comment on above: Performed By: #### C BCWD #### [facility] [address] [place] [address] WBC (Bld) [#/Vol] 7.2 10*3/uL Normal 4.8-10.8 [facility] Comment on above: Performed By: #### C BCWD #### [facility] [address] [place] [address] Comprehensive Metabolic Pane shad 10-08-2022 Albumin [Mass/Vol] 5.0 g/dL Critically high 3.5-4.6 [facility] Comment on above: Order Comment: CALL [facility] tel. [phone], Chemistry, POTASSIUM results called to and read back by IRA PECK, 10/08/2022 10:40, by JOSÉ MIGUEL Performed By: #### C MP #### [facility] [address] [place] [address] ALP [Catalytic activity/Vol] 72 U/L Normal 40-130 [facility] Comment on above: Order Comment: CALL [facility] tel. [phone], Chemistry, POTASSIUM results called to and read back by IRA PECK, 10/08/2022 10:40, by JOSÉ MIGUEL Performed By: #### C MP #### [facility] [address] [place] [address] ALT [Catalytic activity/Vol] 18 U/L Normal 0-33 [facility] Comment on above: Order Comment: CALL [facility] tel. [phone], Chemistry, POTASSIUM results called to and read back by IRA PECK, 10/08/2022 10:40, by VLDOUGLAS Performed By: #### C MP #### [facility] [address] [place] [address] Anion gap [Moles/Vol] 17 mmol/L Critically high 9-15 [facility] Comment on above: Order Comment: CALL [facility] tel. [phone], Chemistry, POTASSIUM results called to and read back by IRA PECK, 10/08/2022 10:40, by JOSÉ MIGUEL Performed By: #### C MP #### [facility] [address] [place] [address] AST [Catalytic activity/Vol] 20 U/L Normal 0-35 [facility] Comment on above: Order Comment: CALL [facility] tel. [phone], Chemistry, POTASSIUM results called to and read back by IRA PECK, 10/08/2022 10:40, by JOSÉ MIGUEL Performed By: #### C MP #### [facility] [address] [place] [address] Bilirubin [Mass/Vol] 2.0 mg/dL Critically high 0.2-0.7 [facility] Comment on above: Order Comment: CALL [facility] tel. [phone], Chemistry, POTASSIUM results called to and read back by IRA PECK, 10/08/2022 10:40, by JOSÉ MIGUEL Performed By: #### C MP #### [facility] [address] [place] [address] Calcium [Mass/Vol] 10.1 mg/dL Critically high 8.5-9.9 [facility] Comment on above: Order Comment: CALL [facility] tel. [phone], Chemistry, POTASSIUM results called to and read back by IRA PECK, 10/08/2022 10:40, by JOSÉ MIGUEL Performed By: #### C MP #### [facility] [address] [place] [address] Chloride [Moles/Vol] 101 mmol/L Normal 95-107 [facility] Comment on above: Order Comment: CALL [facility] tel. [phone], Chemistry, POTASSIUM results called to and read back by IRA PECK, 10/08/2022 10:40, by VLDOUGLAS Performed By: #### C MP #### [facility] [address] [place] [address] CO2 [Moles/Vol] 22 mmol/L Normal 20-31 [facility] Comment on above: Order Comment: CALL [facility] tel. [phone], Chemistry, POTASSIUM results called to and read back by IRA PECK, 10/08/2022 10:40, by JOSÉ MIGUEL Performed By: #### C MP #### [facility] [address] [place] [address] Creatinine [Mass/Vol] 0.63 mg/dL Normal 0.50-0.90 [facility] Comment on above: Order Comment: CALL [facility] tel. [phone], Chemistry, POTASSIUM results called to and read back by IRA PECK, 10/08/2022 10:40, by JOSÉ MIGUEL Performed By: #### C MP #### [facility] [address] [place] [address] GFR >60.0 Normal >60 [facility] Comment on above: Order Comment: CALL [facility] tel. [phone], Chemistry, POTASSIUM results called to and read back by IRA PECK, 10/08/2022 10:40, by JOSÉ MIGUEL Result Comment: Cristy atric calculator link https://www.kidney.org/professionals/kdoqi/gfr_calculatorped [...] secretion. Performed By: #### C MP #### [facility] [address] [place] [address] Globulin (S) [Mass/Vol] 3.0 g/dL Normal 2.3-3.5 [facility] Comment on above: Order Comment: CALL [facility] tel. [phone], Chemistry, POTASSIUM results called to and read back by IRA PECK, 10/08/2022 10:40, by JOSÉ MIGUEL Performed By: #### C MP #### [facility] [address] [place] [address] Glucose [Mass/Vol] 111 mg/dL Critically high 70-99 [facility] Comment on above: Order Comment: CALL [facility] tel. [phone], Chemistry, POTASSIUM results called to and read back by IRA PECK, 10/08/2022 10:40, by JOSÉ MIGUEL Performed By: #### C MP #### [facility] [address] [place] [address] Potassium [Moles/Vol] 3.0 mmol/L Critically low 3.4-4.9 [facility] Comment on above: Order Comment: CALL [facility] tel. [phone], Chemistry, POTASSIUM results called to and read back by IRA PECK, 10/08/2022 10:40, by JOSÉ MIGUEL Performed By: #### C MP #### [facility] [address] [place] [address] Protein [Mass/Vol] 8.0 g/dL Normal 6.3-8.0 [facility] Comment on above: Order Comment: CALL [facility] tel. [phone], Chemistry, POTASSIUM results called to and read back by IRA PECK, 10/08/2022 10:40, by JOSÉ MIGUEL Performed By: #### C MP #### [facility] [address] [place] [address] Sodium [Moles/Vol] 140 mmol/L Normal 135-144 [facility] Comment on above: Order Comment: CALL [facility] tel. [phone], Chemistry, POTASSIUM results called to and read back by IRA PECK, 10/08/2022 10:40, by JOSÉ MIGUEL Performed By: #### C MP #### [facility] [address] [place] [address] Urea nitrogen [Mass/Vol] 20 mg/dL Normal 6-20 [facility] Comment on above: Order Comment: CALL [facility] tel. [phone], Chemistry, POTASSIUM results called to and read back by IRA PECK, 10/08/2022 10:40, by JOSÉ MIGUEL Performed By: #### C MP #### [facility] [address] [place] [address] UR Drugs of Abuse Panelon Drug Screen Comment see below Normal [facility] Comment on above: Result Comment: This method is a screening test to detect only these drug classes as part of a medical workup. Confirmatory testing by another method should be ordered if clinically indicated. Performed By: #### U DRGS #### [facility] [address] [place] [address] UR Amphetamines Screen Positive Abnormal Negative < [facility] Comment on above: Performed By: #### U DRGS #### [facility] [address] [place] [address] UR Barbiturates Screen Negative Normal Negative < [facility] Comment on above: Performed By: #### U DRGS #### [facility] [address] [place] [address] UR Benzo Screen Negative Normal Negative < [facility] Comment on above: Performed By: #### U DRGS #### [facility] [address] [place] [address] UR Cannabinoids Screen Positive Abnormal Negative < [facility] Comment on above: Performed By: #### U DRGS #### [facility] [address] [place] [address] UR Cocaine Screen Positive Abnormal Negative < [facility] Comment on above: Performed By: #### U DRGS #### [facility] [address] [place] [address] UR Fentanyl Screen Negative Normal Negative < [facility] Comment on above: Performed By: #### U DRGS #### [facility] [address] [place] [address] UR Methadone Screen Negative Normal Negative < [facility] Comment on above: Performed By: #### U DRGS #### [facility] [address] [place] [address] UR Opiates Screen Negative Normal Negative < [facility] Comment on above: Performed By: #### U DRGS #### [facility] [address] [place] [address] UR Oxycodone Screen Negative Normal Negative < [facility] Comment on above: Performed By: #### U DRGS #### [facility] [address] [place] [address] UR PCP Screen Negative Normal Negative < [facility] Comment on above: Performed By: #### U DRGS #### [facility] [address] [place] [address] UR Propoxyphene Screen Negative Normal Negative < [facility] Comment on above: Performed By: #### U DRGS #### [facility] [address] [place] [address] Urinalysis, reflex to micros copicon 10-08-2022 Bilirubin Ql (U) Negative Normal Negative [facility] Comment on above: Performed By: #### U A #### [facility] [address] [place] [address] Clarity (U) CLOUDY Abnormal Clear [facility] Comment on above: Performed By: #### U A #### [facility] [address] [place] [address] Color (U) ORANGE Abnormal Straw/[place] [facility] Comment on above: Performed By: #### U A #### [facility] [address] [place] [address] Glucose Ql (U) Negative Normal Negative [facility] Comment on above: Performed By: #### U A #### [facility] [address] [place] [address] Hemoglobin Ql (U) TRACE Abnormal Negative [facility] Comment on above: Performed By: #### U A #### [facility] [address] [place] [address] Ketones Ql (U) >=80 Abnormal Negative [facility] Comment on above: Performed By: #### U A #### [facility] [address] [place] [address] Leukocyte esterase Test strip Ql (U) MODERATE Abnormal Negative [facility] Comment on above: Performed By: #### U A #### [facility] [address] [place] [address] Nitrite Ql (U) Negative Normal Negative [facility] Comment on above: Performed By: #### U A #### [facility] [address] [place] [address] pH (U) 7.5 [pH] Normal 5.0-9.0 [facility] Comment on above: Performed By: #### U A #### [facility] [address] [place] [address] Protein Ql (U) 30 mg/dL Abnormal Negative [facility] Comment on above: Performed By: #### U A #### [facility] [address] [place] [address] Specific gravity (U) [Rel density] 1.030 Normal 1.005-1.03 [facility] Comment on above: Performed By: #### U A #### [facility] [address] [place] [address] Urobilinogen Qn (U) 1.0 {Vielka'U}/dL Normal < 2.0 [facility] Comment on above: Performed By: #### U A #### [facility] [address] [place] [address] Urine Microscopicon 10-08-20 22 Epithelial cells LM Ql (Urine sed) 5-10 Normal [facility] Comment on above: Performed By: #### U LINDY #### [facility] [address] [place] [address] Urine RBC 3-5 Abnormal 0-2 [facility] Comment on above: Performed By: #### U LINDY #### [facility] [address] [place] [address] Urine Bacteria RARE Abnormal Negative [facility] Comment on above: Performed By: #### U LINDY #### [facility] [address] [place] [address] Urine Epithelial Cells Auto 20-50 Normal 0-5 [facility] Comment on above: Performed By: #### U LINDY #### [facility] [address] [place] [address] Urine Hyaline Casts Auto 10-20 Normal 0-5 [facility] Comment on above: Performed By: #### U LINDY #### [facility] [address] [place] [address] Urine WBC Auto 10-20 Abnormal 0-5 [facility] Comment on above: Performed By: #### U LINDY #### [facility] [address] [place] [address] DRUG SCREEN,URINEon 09-09-20 22 AMPHETAMINE SCREEN,U Canceled Normal [facility] Comment on above: Order Comment: TEST DRUG SCREEN,URINE WAS CANCELLED, 09/09/2022 01:17 No specimen received/Pt discharged. Result Comment: CUTO FF LEVEL: 500 NG/ML Cross-reactivity has been reported with high concentrations of the following drugs: buproprion, chloroquine, chlorpromazine, ephedrine, mephentermine, fenfluramine, phentermine, phenylpropanolamine, pseudoephedrine, and propranolol. Performed By: #### D RUG3 #### [address] [id number] BARBITURATES SCREEN,U Canceled Normal [facility] Comment on above: Order Comment: TEST DRUG SCREEN,URINE WAS CANCELLED, 09/09/2022 01:17 No specimen received/Pt discharged. Result Comment: CUTO FF LEVEL: 200 NG/ML Performed By: #### D RUG3 #### [address] [id number] BENZODIAZEPINES SCREEN,U Canceled Normal [facility] Comment on above: Order Comment: TEST DRUG SCREEN,URINE WAS CANCELLED, 09/09/2022 01:17 No specimen received/Pt discharged. Result Comment: CUTO FF LEVEL: 200 NG/ML Performed By: #### D RUG3 #### [address] [id number] CANNABINOIDS SCREEN,U Canceled Normal [facility] Comment on above: Order Comment: TEST DRUG SCREEN,URINE WAS CANCELLED, 09/09/2022 01:17 No specimen received/Pt discharged. Result Comment: CUTO FF LEVEL: 50 NG/ML Performed By: #### D RUG3 #### [address] [id number] COCAINE METABOLITE SCREEN,U Canceled Normal [facility] Comment on above: Order Comment: TEST DRUG SCREEN,URINE WAS CANCELLED, 09/09/2022 01:17 No specimen received/Pt discharged. Result Comment: CUTO FF LEVEL: 150 NG/ML Performed By: #### D RUG3 #### [address] [id number] DRUG SCREEN COMMENT Canceled Normal [facility] Comment on above: Order Comment: TEST DRUG SCREEN,URINE WAS CANCELLED, 09/09/2022 01:17 No specimen received/Pt discharged. Result Comment: Drug screen results are presumptive and should not be used to assess compliance with prescribed medication. Contact the performing [facility] laboratory to add-on definitive confirmatory [...] the laboratory medical directors. Performed By: #### Wilmer RUG3 #### [address] [id number] FENTANYL SCREEN,URINE Canceled Normal [facility] Comment on above: Order Comment: TEST DRUG SCREEN,URINE WAS CANCELLED, 09/09/2022 01:17 No specimen received/Pt discharged. Result Comment: CUTO FF LEVEL: 5 NG/ML Performed By: #### D RUG3 #### [address] [id number] METHADONE SCREEN,U Canceled Normal [facility] Comment on above: Order Comment: TEST DRUG SCREEN,URINE WAS CANCELLED, 09/09/2022 01:17 No specimen received/Pt discharged. Result Comment: CUTO FF LEVEL: 150 NG/ML The metabolite O-bynrr-plumubnhoaghnk (LAAM) is not detected by this method in concentrations that would be found in the urine of patients on LAAM therapy. Performed By: #### D RUG3 #### [address] [id number] OPIATES SCREEN,U Canceled Normal [facility] Comment on above: Order Comment: TEST DRUG SCREEN,URINE WAS CANCELLED, 09/09/2022 01:17 No specimen received/Pt discharged. Result Comment: CUTO FF LEVEL: 300 NG/ML The opiate screen does not detect fentanyl, meperidine, or tramadol. Oxycodone is not consistently detected (refer to Oxycodone Screen, Urine result). Performed By: #### D RUG3 #### [address] [id number] OXYCODONE SCREEN,U Canceled Normal [facility] Comment on above: Order Comment: TEST DRUG SCREEN,URINE WAS CANCELLED, 09/09/2022 01:17 No specimen received/Pt discharged. Result Comment: CUTO FF LEVEL: 100 NG/ML This test will accurately detect both oxycodone and oxymorphone. Performed By: #### D RUG3 #### [address] [id number] PCP SCREEN,U Canceled Normal [facility] Comment on above: Order Comment: TEST DRUG SCREEN,URINE WAS CANCELLED, 09/09/2022 01:17 No specimen received/Pt discharged. Result Comment: CUTO FF LEVEL: 25 NG/ML Cross-reactivity has been reported with dextromethorphan. Performed By: #### D RUG3 #### [address], [place] [id number] URINALYSISon 09-09-2022 Appearance (U) Canceled Normal [facility] Comment on above: Order Comment: TEST URINALYSIS WAS CANCELLED, 09/09/2022 01:17 No specimen received/Pt discharged. Performed By: #### U A #### [address], [place] [phone] ASCORBIC ACID Canceled Normal [facility] Comment on above: Order Comment: TEST URINALYSIS WAS CANCELLED, 09/09/2022 01:17 No specimen received/Pt discharged. Result Comment: Conc entrations > = 20 mg/dL of ascorbic acid can be expected to cause strong interference in the reactions testing for glucose, nitrite and blood. It is recommended to discontinue Vitamin C administration and retest in 10 hours. Performed By: #### U A #### [address] [id number] Bilirubin Ql (U) Canceled Normal [facility] Comment on above: Order Comment: TEST URINALYSIS WAS CANCELLED, 09/09/2022 01:17 No specimen received/Pt discharged. Performed By: #### U A #### [address] [id number] Color (U) Canceled Normal [facility] Comment on above: Order Comment: TEST URINALYSIS WAS CANCELLED, 09/09/2022 01:17 No specimen received/Pt discharged. Performed By: #### U A #### [address] [id number] Glucose Ql (U) Canceled Normal [facility] Comment on above: Order Comment: TEST URINALYSIS WAS CANCELLED, 09/09/2022 01:17 No specimen received/Pt discharged. Performed By: #### U A #### [address] [id number] Hemoglobin Ql (U) Canceled Normal [facility] Comment on above: Order Comment: TEST URINALYSIS WAS CANCELLED, 09/09/2022 01:17 No specimen received/Pt discharged. Performed By: #### U A #### [address] [id number] Ketones Ql (U) Canceled Normal [facility] Comment on above: Order Comment: TEST URINALYSIS WAS CANCELLED, 09/09/2022 01:17 No specimen received/Pt discharged. Performed By: #### U A #### [address] [id number] Leukocyte esterase Test strip Ql (U) Canceled Normal [facility] Comment on above: Order Comment: TEST URINALYSIS WAS CANCELLED, 09/09/2022 01:17 No specimen received/Pt discharged. Performed By: #### U A #### [address] [id number] Nitrite Ql (U) Canceled Normal [facility] Comment on above: Order Comment: TEST URINALYSIS WAS CANCELLED, 09/09/2022 01:17 No specimen received/Pt discharged. Performed By: #### U A #### [address] [id number] pH Canceled Normal [facility] Comment on above: Order Comment: TEST URINALYSIS WAS CANCELLED, 09/09/2022 01:17 No specimen received/Pt discharged. Performed By: #### U A #### [address] [id number] Protein Ql (U) Canceled Normal [facility] Comment on above: Order Comment: TEST URINALYSIS WAS CANCELLED, 09/09/2022 01:17 No specimen received/Pt discharged. Performed By: #### U A #### [address] [id number] Specific gravity (U) [Rel density] Canceled Normal [facility] Comment on above: Order Comment: TEST URINALYSIS WAS CANCELLED, 09/09/2022 01:17 No specimen received/Pt discharged. Performed By: #### U A #### [address] [id number] UROBILINOGEN Canceled Normal [facility] Comment on above: Order Comment: TEST URINALYSIS WAS CANCELLED, 09/09/2022 01:17 No specimen received/Pt discharged. Performed By: #### U A #### [address] [id number] CBC AND DIFFERENTIALon 09-08 % AUTOMATED IMMATURE GRAN 0.3 % Normal 0.0 - 0.9 [facility] Comment on above: Result Comment: Hazel ture Granulocyte Count (IG) includes promyelocytes, myelocytes and metamyelocytes but does not include bands. Percent differential counts (%) should be interpreted in the context of the absolute cell counts (cells/L). Performed By: #### C BCDF #### [address] [id number] Basophils (Bld) [#/Vol] 0.05 10*3/uL Normal 0.00 - 0.10 [facility] Comment on above: Performed By: #### C BCDF #### [address] [id number] Basophils/100 WBC (Bld) 0.7 % Normal 0.0 - 2.0 [facility] Comment on above: Performed By: #### C BCDF #### [address] [id number] Eosinophils (Bld) [#/Vol] 0.01 10*3/uL Normal 0.00 - 0.70 [facility] Comment on above: Performed By: #### C BCDF #### [address] [id number] Eosinophils/100 WBC (Bld) 0.1 % Normal 0.0 - 6.0 [facility] Comment on above: Performed By: #### C BCDF #### [address] [id number] Erythrocyte distribution width (RBC) [Ratio] 12.9 % Normal 11.5 - 14.5 [facility] Comment on above: Performed By: #### C BCDF #### [address] [id number] Hematocrit (Bld) [Volume fraction] 34.5 % Low 36.0 - 46.0 [facility] Comment on above: Performed By: #### C BCDF #### [address] [id number] Hemoglobin (Bld) [Mass/Vol] 11.6 g/dL Low 12.0 - 16.0 [facility] Comment on above: Performed By: #### C BCDF #### [address] [id number] Lymphocytes (Bld) [#/Vol] 1.68 10*3/uL Normal 1.20 - 4.80 [facility] Comment on above: Performed By: #### C BCDF #### [address] [id number] Lymphocytes/100 WBC (Bld) 23.1 % Normal 13.0 - 44.0 [facility] Comment on above: Performed By: #### C BCDF #### [address] [id number] MCHC (RBC) [Mass/Vol] 33.6 g/dL Normal 32.0 - 36.0 [facility] Comment on above: Performed By: #### C BCDF #### [address] [id number] MCV (RBC) [Entitic vol] 86 fL Normal 80 - 100 [facility] Comment on above: Performed By: #### C BCDF #### [address] [id number] Monocytes (Bld) [#/Vol] 0.82 10*3/uL Normal 0.10 - 1.00 [facility] Comment on above: Performed By: #### C BCDF #### [address] [id number] Monocytes/100 WBC (Bld) 11.3 % Normal 2.0 - 10.0 [facility] Comment on above: Performed By: #### C BCDF #### [address] [id number] Neutrophils (Bld) [#/Vol] 4.68 10*3/uL Normal 1.20 - 7.70 [facility] Comment on above: Performed By: #### C BCDF #### [address] [id number] Neutrophils/100 WBC (Bld) 64.5 % Normal 40.0 - 80.0 [facility] Comment on above: Performed By: #### C BCDF #### [address] [id number] Platelets (Bld) [#/Vol] 267 10*3/uL Normal 150 - 450 [facility] Comment on above: Performed By: #### C BCDF #### [address] [id number] RBC 3.99 x10E12/L Low 4.00 - 5.20 [facility] Comment on above: Performed By: #### C BCDF #### [address] [id number] WBC (Bld) [#/Vol] 7.3 10*3/uL Normal 4.4 - 11.3 [facility] Comment on above: Performed By: #### C BCDF #### [address] [id number] COMPREHENSIVE PANELon 2021 Albumin [Mass/Vol] 4.6 g/dL Normal 3.4 - 5.0 [facility] Comment on above: Performed By: #### U A #### [address] [id number] ALP [Catalytic activity/Vol] 44 U/L Normal 33 - 110 [facility] Comment on above: Performed By: #### U A #### [address] [id number] ALT [Catalytic activity/Vol] 14 U/L Normal 7 - 45 [facility] Comment on above: Result Comment: Carrie ents treated with Sulfasalazine may generate falsely decreased results for ALT. Performed By: #### U A #### [address] [id number] Anion gap [Moles/Vol] 14 mmol/L Normal 10 - 20 [facility] Comment on above: Performed By: #### U A #### [address] [id number] AST [Catalytic activity/Vol] 19 U/L Normal 9 - 39 [facility] Comment on above: Performed By: #### U A #### [address] [id number] Bilirubin [Mass/Vol] 0.9 mg/dL Normal 0.0 - 1.2 [facility] Comment on above: Performed By: #### U A #### [address] [id number] Calcium [Mass/Vol] 9.3 mg/dL Normal 8.6 - 10.3 [facility] Comment on above: Performed By: #### U A #### [address] [id number] Chloride [Moles/Vol] 101 mmol/L Normal 98 - 107 [facility] Comment on above: Performed By: #### U A #### [address] [id number] Creatinine [Mass/Vol] 0.67 mg/dL Normal 0.50 - 1.05 [facility] Comment on above: Performed By: #### U A #### [address] [id number] eGFR FEMALE >90 Normal >90 [facility] Comment on above: Result Comment: CALC ULATIONS OF ESTIMATED GFR ARE PERFORMED USING THE 2020 CKD-EPI STUDY REFIT EQUATION WITHOUT THE RACE VARIABLE FOR THE IDMS-TRACEABLE CREATININE METHODS. https://jasn.asnjournals.org/content/early//ASN.970820899 8 Performed By: #### U A #### [address] [id number] Glucose [Mass/Vol] 95 mg/dL Normal 74 - 99 [facility] Comment on above: Performed By: #### U A #### [address] [id number] HCO3 (Bld) [Moles/Vol] 25 mmol/L Normal 21 - 32 [facility] Comment on above: Performed By: #### U A #### [address] [id number] Potassium [Moles/Vol] 3.2 mmol/L Low 3.5 - 5.3 [facility] Comment on above: Performed By: #### U A #### [address] [id number] Protein [Mass/Vol] 7.4 g/dL Normal 6.4 - 8.2 [facility] Comment on above: Performed By: #### U A #### [address] [id number] Sodium [Moles/Vol] 137 mmol/L Normal 136 - 145 [facility] Comment on above: Performed By: #### U A #### [address] [id number] Urea nitrogen [Mass/Vol] 14 mg/dL Normal 6 - 23 [facility] Comment on above: Performed By: #### U A #### [address] [id number] HCG,BETA-QUANTITATIVEon HCG,BETA-QUANTITAT ENZO <2 Normal [facility] Comment on above: Result Comment: . Total HCG measurement is performed using the Perri Presto Access Immunoassay which detects intact HCG and free beta HCG subunit. . This test is not indicated for use as a tumor marker. HCG testing is performed using a different test methodology at [facility] than other [facility]. Direct result comparison should only be made within the same method. REF VALUES NON FEMALE <5 MALES <5 Performed By: #### U A #### [address] [id number] Provider Note - ED v3on Provider Note [...] dictated by speech recognition. Minor errors in printing manager may be present. Please call if questions. [...] Attestation, C (more content not included)... Normal [facility] Risk Screen - Adult Emergenc yon 09-08-2022 Risk Screen - Adult Emergency Preferred Language: Preferred Language: Preferred Language for Discussing Health Care (patient/designee)[place] Patient Preferred Pharmacy: Patient Preferred Pharmacy Statement: [...] board Learning Preferencesaudio Cultural Considerationsnone Developmental Considerationsnone Latter Day Considerationsnone Learning Assessment (Other Learner): Learning Assessment [...] an injured patient at a Trauma Center ([facility]/[place]): no Electronic Signatures: Adonis Melchor (RN) (Signed 08-Sep-2022 20:07) Authored: Preferred Language, Patient Preferred Pharmacy, Advanced Directives, Family Violence Adult, Learning Assessment (Patient), Learning Assessment (Other Learner), Pressure Injury/TB/Substance, Pressure Injury, CAGE Last Updated: 08-Sep-2022 20:07 by Adonis Melchor (RN) Normal [facility] Triage - EDon 09-08-2022 Triage - ED [...] Past Medical History Reviewedyes Electronic Signatures: Mechelle Garcia) (Signed 08-Sep-2022 15:36) Entered: Risk Screens, Pain, Travel History, Chart Review, Scores, Past Medical History Authored: Quick Triage, Risk Screens, Pain, Travel History, Chart Review, Scores, Past Medical History Last Updated: 08-Sep-2022 15:36 by Mechelle Garcia (RN) [facility] Michael 10-20-2021 [facility] Telephone (4CQ) -- JULIETTE HERNÁNDEZ ([id number]) 1995 F Date Time Provider Department 10/20/21 JUAN ANTONIO ESQUEDA 4CQ During your visit today, we recorded the following information about you: Beny Pope 10/20/2021 9:39 AM Signed Juliette Hernández called today. : 1995 Allergies: Patient has no known allergies. (home) [phone] (cell) Reason for call: Patient calling asking for an alternative medication of Miconazole Nitrate (MONISTAT 3) 200 mg/5 gram (4 %) cream. Insurance does not cover this for patient. Requesting call back if any issues. Confirmed [facility] as pharmacy Patient last appointment: Visit date not found The patients preferred pharmacy has been captured for this encounter? yes Beny Mcconnell, INDUSTRIAL ECOLOGY TECHNICIAN.[facility] 10/20/2021 9:52 AM Signed rx sent [...] Encounter Status:Closed by TAL MCCONNELL on 10/20/21 [facility] 10-18-2021 [facility] Telephone (EXPCHC) -- JULIETTE HERNÁNDEZ ([id number]) 1995 F Date Time Provider Department 10/18/21 [facility] your visit today, we recorded [...] by JUAN ANTONIO ESQUEDA on 10/18/21 Normal [facility] Bact Vag Amplificationon Bact Vag Amplification Positive Critically abnormal Negative for bacterial vaginosis [facility] Comment on above: Performed By: #### C VTV, BVAMP #### [facility] [address] [place], [place] [address] CNOVon 10-16-2021 CNOV Office Visit (EXPCHC ) -- JULIETTE HERNÁNDEZ ([id number]) 1995 F Date Time Provider Department 10/16/21 9:05 AM JUAN ANTONIO ESQUEDA EXPC During your visit today, we recorded the following information about you: Temperature Pulse Respiration Blood pressure 98 degrees 64/minute 20/minute 117/66 Weight Last Period 70.1 kg 10/09/21 Juan Antonio Esqueda PA-C 10/16/2021 10:24 AM Addendum This note was created using [employer]. Subjective Juliette Hernández is a 26 year [...] Exam Vitals reviewed. Exam conducted with a wood miller present (Latia Pantoja MA present for exam). [...] VAGINOSIS AMPL (more content not included)... Normal [facility] Sultana Trich Amplon 021 Sultana glabrata RNA Negative Normal Negative [facility] Comment on above: Performed By: #### C VTV, BVAMP #### [facility] [address] [place], [place] [address] Sultana sp group RNA Positive Critically abnormal Negative [facility] Comment on above: Performed By: #### C VTV, BVAMP #### [facility] [place] [phone] Trichomonas RNA Negative Normal [facility] Comment on above: Performed By: #### C VTV, BVAMP #### [facility] [place] [phone] GC/Chlamydia Amplifon 2020 Chlamydia Amplif Negative Normal [facility] Comment on above: Performed By: #### G CCT #### [facility] [address] [place], [place] [address] GC Amplification Negative Normal [facility] Comment on above: Performed By: #### G CCT #### [facility] [address] [place] [address] GC/Chlam Amp Source Cervix Normal [facility] Comment on above: Performed By: #### G CCT #### [facility] [address] [place] [id number] Urine Cultureon 10-16-2021 Bacteria identified Cx Nom (U) Sp. Request/Comment: - Specimen received in preservative Culture Result - <10,000 CFU/ml Normal urogenital brenda Normal [facility] Comment on above: Performed By: #### U RCUL #### [facility] [address] [place] [id number] CNPNon 07-17-2021 CNPN Telephone (EXPCH) -- JULIETTE HERNÁNDEZ ([id number]) 1995 F Date Time Provider Department 07/17/21 RETA CHAVEZ [facility] During your visit today, we recorded the [...] Encounter Status:Closed by RETA CHAVEZ on 07/17/21 [facility] CNCOon 07-15-2021 CNCO Letter Text Normal [facility] CNOVon 07-15-2021 CNOV Office Visit (EXPCHC ) -- JULIETTE HERNÁNDEZ ([id number]) 1995 F Date Time Provider Department 07/15/21 1:15 PM RUBINA LALA EXPCHC During your visit today, we recorded the following information about you: Temperature Pulse Blood pressure Last Period 97.7 degrees 71/minute 117/75 05/07/21 Rubina Lala PA-C 07/15/2021 1:58 PM Signed This note was created using [employer]. Subjective Juliette Hernández is a 26 year [...] causes COVID-19 (more content not included)... Normal [facility] Coronavirus 2019on 1 SARS-CoV-2 (COVID-19) RNA JOSE R+probe Ql (Unsp spec) UPPER RESPIRATORY TRACT SWAB Normal [facility] Comment on above: Performed By: #### C OVID #### [place] [id number] [place] [address] SARS-CoV-2 (COVID-19) RNA JOSE R+probe Ql (Unsp spec) Positive for COVID19 (SARS CoV2) by RT-PCR or equivalent method. Critically abnormal Negative for COVID19 (SARS CoV2) by RT-PCR or equivalent method. [facility] Comment on above: Result Comment: This test was developed and its performance characteristics determined by [facility] [place]. This test has been authorized by FDA under an Emergency Use Authorization (EUA). This test has been validated in accordance with the FDA's Guidance Document Policy for Diagnostics Testing in Laboratories Certified to Perform High Complexity Testing under CLIA prior to Emergency use Authorization for Coronavirus Disease 2019 during the Public Health Emergency issued on January 02, 2020. Test performed by [facility], [facility] [place], [employer] [place] [address]. Performed By: #### C OVID #### [facility] [place], [place] [address] Cult, Urineon 06-02-2020 Bacteria identified Cx Nom (U) PATIENT: JULIETTE HERNÁNDEZ [place] [facility] [place] [id number] : 89 AGE: SEX: F ORDERED BY: RADHA WISDOM: URINE COLLECTED: 06/02/20 12:48ANTIBIOTICS AT MISSY.: RECEIVED : 06/03/20 00:40SITE: Clean Catch/Voided R E S U L T S URINE CULTURE,BACTERIAL FINAL 06/03/20 23:49 NO SIGNIFICANT GROWTH. [id number] [address] [employer] Work Phone: GC + Chlamydia By Amplified Detectionon 06-02-2020 C. trachomatis rRNA JOSE R+probe Ql (Unsp spec) Positive Abnormal Negative DE-ILXB-Djey [facility] [employer] Work Phone: N. gonorrhoeae rRNA JOSE R+probe Ql (Unsp spec) Positive Abnormal Negative UJ-EOWZ-Sbht [address] [employer] Work Phone: Comment on above: SOURCE: Urine IO UA (automated w/o microsc opy)on 06-02-2020 Protein (U) [Mass/Vol] Negative ZS-NSWO-Jnzp [facility] [employer] Work Phone: IO UA (automated w/o microscopy) Negative VU-PNXX-Injk [address] [employer] Work Phone: IO UA (automated w/o microscopy) Hemolyzed trace VY-MFHT-Erev [address] [employer] Work Phone: IO UA (automated w/o microscopy) 7.5 SV-HXYJ-Lhwv [address] [employer] Work Phone: IO UA (automated w/o microscopy) Yellow ZC-YUZN-Hrce [address] [employer] Work Phone: IO UA (automated w/o microscopy) Normal EA-KHJR-Oara [address] [employer] Work Phone: IO UA (automated w/o microscopy) 1.015 YP-OSKS-Rxwy [address] [employer] Work Phone: IO UA (automated w/o microscopy) Clear SU-EMQP-Avsl [address] [employer] Work Phone: Otheron 06-02-2020 Negative Negative RA-JWVU-Jfnr [address] [employer] Work Phone: Comment on above: SOURCE: Urine CBCon 01-20-2019 Erythrocyte distribution width Ratio (RBC) 13.9 % Normal 12.0-15.4 [facility] Comment on above: Performed By: #### U ARFX #### [facility] [address] [place] [address] Hematocrit Volume Fraction (Bld) 27.4 % Low 36.5-46.6 [facility] Comment on above: Performed By: #### U ARFX #### [facility] [address] [place] [address] Hemoglobin mass conc (Bld) 9.0 g/dL Low 11.8-15.3 [facility] Comment on above: Performed By: #### U ARFX #### [facility] [address] [place] [address] MCH Entitic mass (RBC) 30.1 pg Normal 27.5-33.0 [facility] Comment on above: Performed By: #### U ARFX #### [facility] [address] [place] [address] MCHC mass conc (RBC) 32.8 g/dL Normal 30.1-35.0 [facility] Comment on above: Performed By: #### U ARFX #### [facility] [address] [place] [address] MCV Entitic volume (RBC) 91.6 fL Normal 85.4-100.0 [facility] Comment on above: Performed By: #### U ARFX #### [facility] [address] [place] [address] NRBC Absolute 0.00 10*3/uL Normal [facility] Comment on above: Performed By: #### U ARFX #### [facility] [address] [place] [address] NRBC Automated 0.0 /100{WBCs} Normal [facility] Comment on above: Performed By: #### U ARFX #### [facility] [address] [place] [address] Platelet mean volume Entitic volume (Bld) 10.4 fL Normal 9.9-12.1 [facility] Comment on above: Performed By: #### U ARFX #### [facility] [address] [place] [address] Platelets #/vol (Bld) 181 10*3/uL Normal 155-404 [facility] Comment on above: Performed By: #### U ARFX #### [facility] [address] [place] [address] RBC #/vol (Bld) 2.99 10*6/uL Low 3.85-5.10 [facility] Comment on above: Performed By: #### U ARFX #### [facility] [address] [place], [place] [id number] RDW SD 46.8 fL Normal 39.3-48.6 [facility] Comment on above: Performed By: #### U ARFX #### [facility] [address] [place] [address] WBC #/vol (Bld) 11.7 10*3/uL High 4.4-9.9 [facility] Comment on above: Performed By: #### U ARFX #### [facility] [address] [place] [address] CBC With Differentialon 01-02 Basophils #/vol (Bld) 0.04 10*3/uL Normal 0.01-0.07 [facility] Comment on above: Performed By: #### U ARFX #### [facility] [address] [place] [address] Basophils/100 WBC (Bld) 0.4 % Normal 0.1-1.2 [facility] Comment on above: Performed By: #### U ARFX #### [facility] [address] [place] [address] Eosinophils #/vol (Bld) 0.03 10*3/uL Low 0.04-0.50 [facility] Comment on above: Performed By: #### U ARFX #### [facility] [address] [place] [address] Eosinophils/100 WBC (Bld) 0.3 % Normal 0.0-8.1 [facility] Comment on above: Performed By: #### U ARFX #### [facility] [address] [place] [address] Erythrocyte distribution width Ratio (RBC) 14.0 % Normal 12.0-15.4 [facility] Comment on above: Performed By: #### U ARFX #### [facility] [address] [place] [address] Hematocrit Volume Fraction (Bld) 32.8 % Low 36.5-46.6 [facility] Comment on above: Performed By: #### U ARFX #### [facility] [address] [place] [address] Hemoglobin mass conc (Bld) 10.8 g/dL Low 11.8-15.3 [facility] Comment on above: Performed By: #### U ARFX #### [facility] [address] [place] [address] Imm Grans Absolute 0.04 10*3/uL Normal 0.00-0.21 [facility] Comment on above: Performed By: #### U ARFX #### [facility] [address] [place] [address] Immature granulocytes #/vol (Bld) 0.4 % Normal [facility] Comment on above: Performed By: #### U ARFX #### [facility] [address] [place] [address] Lymphocytes #/vol (Bld) 1.96 10*3/uL Normal 0.40-2.84 [facility] Comment on above: Performed By: #### U ARFX #### [facility] [address] [place] [address] Lymphocytes/100 WBC (Bld) 19.6 % Normal 15.7-50.5 [facility] Comment on above: Performed By: #### U ARFX #### [facility] [address] [place] [address] MCH Entitic mass (RBC) 30.2 pg Normal 27.5-33.0 [facility] Comment on above: Performed By: #### U ARFX #### [facility] [address] [place] [address] MCHC mass conc (RBC) 32.9 g/dL Normal 30.1-35.0 [facility] Comment on above: Performed By: #### U ARFX #### [facility] [address] [place] [address] MCV Entitic volume (RBC) 91.6 fL Normal 85.4-100.0 [facility] Comment on above: Performed By: #### U ARFX #### [facility] [address] [place] [address] Monocytes #/vol (Bld) 1.00 10*3/uL High 0.25-0.83 [facility] Comment on above: Performed By: #### U ARFX #### [facility] [address] [place] [address] Monocytes/100 WBC (Bld) 10.0 % Normal 4.8-12.7 [facility] Comment on above: Performed By: #### U ARFX #### [facility] [address] [place] [address] Neutrophils Absolute 6.91 10*3/uL High 1.95-6.85 [facility] Comment on above: Performed By: #### U ARFX #### [facility] [address] [place] [address] Neutrophils/100 WBC (Bld) 69.3 % Normal 36.8-73.2 [facility] Comment on above: Performed By: #### U ARFX #### [facility] [address] [place] [address] NRBC Absolute 0.00 10*3/uL Normal [facility] Comment on above: Performed By: #### U ARFX #### [facility] [address] [place] [address] NRBC Automated 0.0 /100{WBCs} Normal [facility] Comment on above: Performed By: #### U ARFX #### [facility] [address] [place] [address] Platelet mean volume Entitic volume (Bld) 11.0 fL Normal 9.9-12.1 [facility] Comment on above: Performed By: #### U ARFX #### [facility] [address] [place] [address] Platelets #/vol (Bld) 186 10*3/uL Normal 155-404 [facility] Comment on above: Performed By: #### U ARFX #### [facility] [address] [place] [address] RBC #/vol (Bld) 3.58 10*6/uL Low 3.85-5.10 [facility] Comment on above: Performed By: #### U ARFX #### [facility] [address] [place], [place] [id number] RDW SD 46.7 fL Normal 39.3-48.6 [facility] Comment on above: Performed By: #### U ARFX #### [facility] [address] [place] [address] WBC #/vol (Bld) 10.0 10*3/uL High 4.4-9.9 [facility] Comment on above: Performed By: #### U ARFX #### [facility] [address] [place], [place] [id number] Drugs of Abuse, Urine(7)on 0 01-19-2019 Amphetamines/Metam phetamines, Urine Not Detected Normal [facility] Comment on above: Performed By: #### U ARFX #### [facility] [address] [place] [address] Barbiturates, Urine Not Detected Normal [facility] Comment on above: Performed By: #### U ARFX #### [facility] [address] [place] [address] Benzodiazepines, Urine Not Detected Normal [facility] Comment on above: Performed By: #### U ARFX #### [facility] [address] [place] [address] Cannabinoids, Urine Not Detected Normal [facility] Comment on above: Performed By: #### U ARFX #### [facility] [address] [place] [address] Cocaine, Urine Not Detected Normal [facility] Comment on above: Performed By: #### U ARFX #### [facility] [address] [place] [address] Methadone, Urine Not Detected Normal [facility] Comment on above: Performed By: #### U ARFX #### [facility] [address] [place] [address] Opiates, Urine Not Detected Normal [facility] Comment on above: Performed By: #### U ARFX #### [facility] [address] [place] [address] PCP, Urine Not Detected Normal [facility] [...] #### [facility] [address] [place] [address] Pathology ([facility])on 01-19-2019 Pathology ([facility]) Copy To: KEYSHA [place] FINAL SURGICAL PATHOLOGY [...] SPECIMEN(S): (A) PLACENTA, THIRD TRIMESTER Performed at [facility], [address] [place] [address] GROSS DESCRIPTION: Received fresh, labeled with the [...] are noted. The surface is slightly opaque. Dependency Director sections of cord, membranes, and placenta are [...] #### [facility] [address] [place] [address] Type and Screenon 01-19-2019 Group and Rh Positive Normal [facility] Comment on above: Performed By: #### U ARFX #### [facility] [address] [place] [address] Urinalysison 01-19-2019 Amorphous Crystal Occasional Normal None [facility] Comment on above: Performed By: #### U ARFX #### [facility] [address] [place] [address] Appearance Nom (U) Cloudy Normal Clear [facility] Comment on above: Performed By: #### U ARFX #### [facility] [address] [place] [address] Ascorbic Acid Negative Normal Negative [facility] Comment on above: Performed By: #### U ARFX #### [facility] [address] [place] [address] Automated Urine Microscopy Performed Normal [facility] Comment on above: Performed By: #### U ARFX #### [facility] [address] [place] [address] Bacteria LM.HPF #/area (Urine sed) Occasional Normal None [facility] Comment on above: Performed By: #### U ARFX #### [facility] [address] [place] [address] Bilirubin mass conc Negative Normal Negative [facility] Comment on above: Performed By: #### U ARFX #### [facility] [address] [place] [address] Blood Negative Normal Negative [facility] Comment on above: Performed By: #### U ARFX #### [facility] [address] [place] [address] Color Nom (U) Yellow Normal [facility] Comment on above: Performed By: #### U ARFX #### [facility] [address] [place] [address] Glucose mass conc Negative Normal Negative [facility] Comment on above: Performed By: #### U ARFX #### [facility] [address] [place] [address] Ketones Ql (U) Negative Normal Negative [facility] Comment on above: Performed By: #### U ARFX #### [facility] [address] [place] [address] Leukocytes Esterase Large Abnormal Negative [facility] Comment on above: Performed By: #### U ARFX #### [facility] [address] [place] [address] Nitrite Ql (U) Negative Normal Negative [facility] Comment on above: Performed By: #### U ARFX #### [facility] [address] [place] [address] pH (Bld) 7.0 Normal 5.0-9.0 [facility] Comment on above: Performed By: #### U ARFX #### [facility] [address] [place] [address] Protein mass conc (U) Negative Normal Negative [facility] Comment on above: Performed By: #### U ARFX #### [facility] [address] [place] [address] RBC 11 /[HPF] Normal 0-3 [facility] Comment on above: Performed By: #### U ARFX #### [facility] [address] [place] [address] Specific gravity Relative Density (U) 1.010 Normal 1.003-1.035 [facility] Comment on above: Performed By: #### U ARFX #### [facility] [address] [place] [address] Squamous Epithelial Cells 29 /[HPF] Normal 0-5 [facility] Comment on above: Performed By: #### U ARFX #### [facility] [address] [place] [address] Urobilinogen Qn (U) 2.0 mg/dL Abnormal Negative [facility] Comment on above: Result Comment: Due [...] #### [facility] [address] [place], [place] [id number] WBC 32 /[HPF] Normal 0-5 [facility] Comment on above: Performed By: #### U ARFX #### [facility] [address] [place] [address] Culture, Group B Strep Scree non 12-25-2018 Culture, Group B Strep Screen BILL#: [id number] : 89 AGE: SEX: F AMBULATORY SOURCE: COLLECTED: 12/25/18 19:16 ANTIBIOTICS AT MISSY.: RECEIVED : 12/25/18 22:00 SITE: R E S U L T S GROUP B STREP SCREEN FINAL 12/27/18 08:44 NEGATIVE FOR GROUP B BETA STREP. Normal [facility] Comment on above: Performed By: #### C XBUR #### [facility] [address] [place] [address] Culture, Urine Bacterialon 0 12-25-2018 Culture, Urine Bacterial BILL#: [id number] : 89 AGE: SEX: F AMBULATORY SOURCE: URINE COLLECTED: 12/25/18 19:15 ANTIBIOTICS AT MISSY.: RECEIVED : 12/25/18 21:58 SITE: Unspecified R E S U L T S URINE CULTURE,BACTERIAL FINAL 12/26/18 15:49 NO SIGNIFICANT GROWTH. Normal [facility] Comment on above: Performed By: #### C XBUR #### [facility] [address] [place] [address] N. gonorrhoeae/C. trachomati s, Amplifiedon 12-25-2018 Chlamydia trachomatis, Amplified Negative Normal Negative [facility] Comment on above: Performed By: #### C XBUR #### [facility] [address] [place] [address] GC/CHLAM/TRICA Source Swab-Endocerv Normal [facility] Comment on above: Performed By: #### C XBUR #### [facility] [address] [place] [address] Neisseria gonorrhoeae, Amplified Negative Normal Negative [facility] Comment on above: Performed By: #### C XBUR #### [facility] [address] [place] [address] Trichmonas, Amplified Detect ionon 12-25-2018 Trichomonas, Amplified Negative Normal Negative [facility] Comment on above: Performed By: #### C XBUR #### [facility] [address] [place] [address] CBCon 12-11-2018 Erythrocyte distribution width Ratio (RBC) 13.0 % Normal 12.0-15.4 [facility] Comment on above: Performed By: #### C XBUR #### [facility] [address] [place] [address] Hematocrit Volume Fraction (Bld) 33.0 % Low 36.5-46.6 [facility] Comment on above: Performed By: #### C XBUR #### [facility] [address] [place] [address] Hemoglobin mass conc (Bld) 10.8 g/dL Low 11.8-15.3 [facility] Comment on above: Performed By: #### C XBUR #### [facility] [address] [place] [address] MCH Entitic mass (RBC) 29.8 pg Normal 27.5-33.0 [facility] Comment on above: Performed By: #### C XBUR #### [facility] [address] [place] [address] MCHC mass conc (RBC) 32.7 g/dL Normal 30.1-35.0 [facility] Comment on above: Performed By: #### C XBUR #### [facility] [address] [place] [address] MCV Entitic volume (RBC) 91.2 fL Normal 85.4-100.0 [facility] Comment on above: Performed By: #### C XBUR #### [facility] [address] [place] [address] NRBC Absolute 0.00 10*3/uL Normal [facility] Comment on above: Performed By: #### C XBUR #### [facility] [address] [place] [address] NRBC Automated 0.0 /100{WBCs} Normal [facility] Comment on above: Performed By: #### C XBUR #### [facility] [address] [place] [address] Platelet mean volume Entitic volume (Bld) 9.8 fL Low 9.9-12.1 [facility] Comment on above: Performed By: #### C XBUR #### [facility] [address] [place] [address] Platelets #/vol (Bld) 228 10*3/uL Normal 155-404 [facility] Comment on above: Performed By: #### C XBUR #### [facility] [address] [place] [address] RBC #/vol (Bld) 3.62 10*6/uL Low 3.85-5.10 [facility] Comment on above: Performed By: #### C XBUR #### [facility] [address] [place] [address] RDW SD 43.0 fL Normal 39.3-48.6 [facility] Comment on above: Performed By: #### C XBUR #### [facility] [address] [place] [address] WBC #/vol (Bld) 9.6 10*3/uL Normal 4.4-9.9 [facility] Comment on above: Performed By: #### C XBUR #### [facility] [address] [place] [address] Comprehensive Metabolic Pane shad 12-11-2018 Albumin mass conc 3.4 g/dL Normal 3.4-5.0 [facility] Comment on above: Performed By: #### C XBUR #### [facility] [address] [place] [address] Albumin/Globulin mass ratio 1.1 {ratio} Normal 0.9-2.4 [facility] Comment on above: Performed By: #### C XBUR #### [facility] [address] [place] [address] ALP enzyme act/vol 97 U/L Normal 45-117 [facility] Comment on above: Performed By: #### C XBUR #### [facility] [address] [place] [address] ALT enzyme act/vol 16 U/L Normal 7-45 [facility] Comment on above: Performed By: #### C XBUR #### [facility] [address] [place] [address] Anion gap molar conc 13 mmol/L Normal 10-20 [facility] Comment on above: Performed By: #### C XBUR #### [facility] [address] [place] [address] AST enzyme act/vol 14 U/L Normal 13-39 [facility] Comment on above: Performed By: #### C XBUR #### [facility] [address] [place] [address] Bilirubin mass conc 0.4 mg/dL Normal 0.0-1.2 [facility] Comment on above: Performed By: #### C XBUR #### [facility] [facility] [address] [place] [address] Calcium mass conc 8.8 mg/dL Normal 8.6-10.3 [facility] Comment on above: Performed By: #### C XBUR #### [facility] [address] [place] [address] Chloride molar conc 103 mmol/L Normal 98-107 [facility] Comment on above: Performed By: #### C XBUR #### [facility] [address] [place] [address] Creatinine mass conc 0.41 mg/dL Low 0.50-1.05 [facility] Comment on above: Performed By: #### C XBUR #### [facility] [address] [place] [address] GFR/1.73 sq M.predicted MDRD vol rate/area mL/min/{1.73_m2} Normal [facility] Comment on above: Result Comment: Inte rpretation for Chronic Kidney Disease: Stages 1&2 >60 Healthy or potential kidney damage. Mild decrease of GFR. Stage 3 30-59 Moderate decrease of GFR. Stage 4 15-29 Severe decrease of GFR. Stage 5 <15 Kidney failure or on dialysis. Performed By: #### C XBUR #### [facility] [address] [place] [address] Glucose mass conc 87 mg/dL Normal 70-100 [facility] Comment on above: Performed By: #### C XBUR #### [facility] [address] [place] [address] HCO3 molar conc (Bld) 26 mmol/L Normal 21-32 [facility] Comment on above: Performed By: #### C XBUR #### [facility] [address] [place] [address] Potassium molar conc 4.1 mmol/L Normal 3.5-5.1 [facility] Comment on above: Performed By: #### C XBUR #### [facility] [address] [place] [address] Protein mass conc 6.4 g/dL Normal 6.4-8.2 [facility] Comment on above: Performed By: #### C XBUR #### [facility] [address] [place] [address] Sodium molar conc 138 mmol/L Normal 136-145 [facility] Comment on above: Performed By: #### C XBUR #### [facility] [address] [place] [address] Urea nitrogen mass conc 5 mg/dL Low 6-23 [facility] Comment on above: Performed By: #### C XBUR #### [facility] [address] [place] [address] Urea nitrogen/Creatinin e mass ratio 12 mg/mg Normal 5-25 [facility] Comment on above: Performed By: #### C XBUR #### [facility] [address] [place] [address] Drugs of Abuse, Urine(7)on 0 12-11-2018 Amphetamines/Metam phetamines, Urine Not Detected Normal [facility] Comment on above: Performed By: #### C XBUR #### [facility] [address] [place] [address] Barbiturates, Urine Not Detected Normal [facility] Comment on above: Performed By: #### C XBUR #### [facility] [address] [place] [address] Benzodiazepines, Urine Not Detected Normal [facility] Comment on above: Performed By: #### C XBUR #### [facility] [address] [place] [address] Cannabinoids, Urine Not Detected Normal [facility] Comment on above: Performed By: #### C XBUR #### [facility] [address] [place] [address] Cocaine, Urine Not Detected Normal [facility] Comment on above: Performed By: #### C XBUR #### [facility] [address] [place] [address] Methadone, Urine Not Detected Normal [facility] Comment on above: Performed By: #### C XBUR #### [facility] [address] [place] [address] Opiates, Urine Not Detected Normal [facility] Comment on above: Performed By: #### C XBUR #### [facility] [address] [place] [address] PCP, Urine Not Detected Normal [facility] [...] #### [facility] [address] [place] [address] Urinalysison 12-11-2018 Amorphous Crystal Occasional Normal None [facility] Comment on above: Performed By: #### C XBUR #### [facility] [address] [place] [address] Appearance Nom (U) Cloudy Normal Clear [facility] Comment on above: Performed By: #### C XBUR #### [facility] [address] [place] [address] Ascorbic Acid Negative Normal Negative [facility] Comment on above: Performed By: #### C XBUR #### [facility] [address] [place] [address] Automated Urine Microscopy Performed Normal [facility] Comment on above: Performed By: #### C XBUR #### [facility] [address] [place] [address] Bilirubin mass conc Negative Normal Negative [facility] Comment on above: Performed By: #### C XBUR #### [facility] [address] [place] [address] Blood Negative Normal Negative [facility] Comment on above: Performed By: #### C XBUR #### [facility] [address] [place] [address] Color Nom (U) Yellow Normal [facility] Comment on above: Performed By: #### C XBUR #### [facility] [address] [place] [address] Glucose mass conc Negative Normal Negative [facility] Comment on above: Performed By: #### C XBUR #### [facility] [address] [place] [address] Ketones Ql (U) Negative Normal Negative [facility] Comment on above: Performed By: #### C XBUR #### [facility] [address] [place] [address] Leukocytes Esterase Trace Abnormal Negative [facility] Comment on above: Performed By: #### C XBUR #### [facility] [address] [place] [address] Mucous Rare Normal None [facility] Comment on above: Performed By: #### C XBUR #### [facility] [address] [place] [address] Nitrite Ql (U) Negative Normal Negative [facility] Comment on above: Performed By: #### C XBUR #### [facility] [address] [place] [address] pH (Bld) 7.0 Normal 5.0-9.0 [facility] Comment on above: Performed By: #### C XBUR #### [facility] [address] [place] [address] Protein mass conc (U) Negative Normal Negative [facility] Comment on above: Performed By: #### C XBUR #### [facility] [address] [place] [address] RBC 3 /[HPF] Normal 0-3 [facility] Comment on above: Performed By: #### C XBUR #### [facility] [address] [place] [address] Specific gravity Relative Density (U) 1.014 Normal 1.003-1.035 [facility] Comment on above: Performed By: #### C XBUR #### [facility] [address] [place] [address] Squamous Epithelial Cells 23 /[HPF] Normal 0-5 [facility] Comment on above: Performed By: #### C XBUR #### [facility] [address] [place] [address] Urobilinogen Qn (U) <2.0 Normal Negative [facility] [...] #### [facility] [address] [place] [address] WBC 3 /[HPF] Normal 0-5 [facility] Comment on above: Performed By: #### C XBUR #### [facility] [address] [place] [address] Drugs of Abuse, Urine(7)on 0 - Amphetamines/Metam phetamines, Urine Not Detected Normal [facility] Comment on above: Performed By: #### C XBUR #### [facility] [address] [place] [address] Barbiturates, Urine Not Detected Normal [facility] Comment on above: Performed By: #### C XBUR #### [facility] [address] [place] [address] Benzodiazepines, Urine Not Detected Normal [facility] Comment on above: Performed By: #### C XBUR #### [facility] [address] [place] [address] Cannabinoids, Urine Not Detected Normal [facility] Comment on above: Performed By: #### C XBUR #### [facility] [address] [place] [address] Cocaine, Urine Not Detected Normal [facility] Comment on above: Performed By: #### C XBUR #### [facility] [address] [place] [address] Methadone, Urine Not Detected Normal [facility] Comment on above: Performed By: #### C XBUR #### [facility] [address] [place] [address] Opiates, Urine Not Detected Normal [facility] Comment on above: Performed By: #### C XBUR #### [facility] [address] [place] [address] PCP, Urine Not Detected Normal [facility] [...] #### [facility] [address] [place] [address] Urinalysison 12-01-2018 Appearance Nom (U) Clear Normal Clear [facility] Comment on above: Performed By: #### G CCHA #### [facility] [address] [place] [address] Ascorbic Acid Positive Normal Negative [facility] Comment on above: Result Comment: Pres ence of Ascorbic Acid may interfere with the detection of blood, glucose, nitrite, and bilirubin. Performed By: #### G CCHA #### [facility] [address] [place] [address] Automated Urine Microscopy Performed Normal [facility] Comment on above: Performed By: #### G CCHA #### [facility] [address] [place] [address] Bilirubin mass conc Negative Normal Negative [facility] Comment on above: Performed By: #### G CCHA #### [facility] [address] [place] [address] Blood Negative Normal Negative [facility] Comment on above: Performed By: #### G CCHA #### [facility] [address] [place] [address] Budding Yeast Rare Normal None [facility] Comment on above: Performed By: #### G CCHA #### [facility] [address] [place] [address] Color Nom (U) Yellow Normal [facility] Comment on above: Performed By: #### G CCHA #### [facility] [address] [place] [address] Glucose mass conc Negative Normal Negative [facility] Comment on above: Performed By: #### G CCHA #### [facility] [address] [place] [address] Ketones Ql (U) Negative Normal Negative [facility] Comment on above: Performed By: #### G CCHA #### [facility] [address] [place] [address] Leukocytes Esterase Small Abnormal Negative [facility] Comment on above: Performed By: #### G CCHA #### [facility] [address] [place] [address] Mucous Rare Normal None [facility] Comment on above: Performed By: #### G [facility] #### [facility] [address] [place] [address] Nitrite Ql (U) Negative Normal Negative [facility] Comment on above: Performed By: #### G [facility] #### [facility] [address] [place] [address] pH (Bld) 7.0 Normal 5.0-9.0 [facility] Comment on above: Performed By: #### G [facility] #### [facility] [address] [place] [address] Protein mass conc (U) Negative Normal Negative [facility] Comment on above: Performed By: #### G [facility] #### [facility] [address] [place] [address] RBC 3 /[HPF] Normal 0-3 [facility] Comment on above: Performed By: #### G [facility] #### [facility] [address] [place] [address] Specific gravity Relative Density (U) 1.016 Normal 1.003-1.035 [facility] Comment on above: Performed By: #### G [facility] #### [facility] [address] [place] [address] Squamous Epithelial Cells 12 /[HPF] Normal 0-5 [facility] Comment on above: Performed By: #### G [facility] #### [facility] [address] [place] [address] Urobilinogen Qn (U) <2.0 Normal Negative [facility] [...] hours. Performed By: #### G CCHA #### [facility] [address] [place] [address] WBC 2 /[HPF] Normal 0-5 [facility] Comment on above: Performed By: #### G CCHA #### [facility] [address] [place] [address] Vaginal Pathogen DNAon 12-01 Estrada Vag DNA Probe Positive Abnormal Negative [facility] Comment on above: Performed By: #### C XBUR #### [facility] [address] [place] [address] Protein mass conc Negative Normal Negative [facility] Comment on above: Performed By: #### C XBUR #### [facility] [address] [place] [address] Trich Vag DNA Probe Negative Normal Negative [facility] Comment on above: Performed By: #### C XBUR #### [facility] [address] [place] [address] Ferritinon 11-13-2018 Ferritin mass conc 6 ng/mL Low 8-150 [facility] Comment on above: Performed By: #### G CCHA #### [facility] [address] [place] [address] Folate/B12on 11-13-2018 Cobalamin (Vitamin B12) mass conc 239 pg/mL Normal 211-911 [facility] Comment on above: Performed By: #### G CCHA #### [facility] [address] [place] [address] Folate 21.10 ng/mL Normal [facility] Comment on above: Result Comment: Norm al Range >5.0 Performed By: #### G CCHA #### [facility] [address] [place] [address] N. gonorrhoeae/C. trachomati s, Amplifiedon 11-13-2018 Chlamydia trachomatis, Amplified Negative Normal Negative [facility] Comment on above: Performed By: #### G [facility] #### [facility] [address] [place] [address] GC/CHLAM/TRICA Source Swab-Endocerv Normal [facility] Comment on above: Performed By: #### G [facility] #### [facility] [address] [place] [address] Neisseria gonorrhoeae, Amplified Negative Normal Negative [facility] Comment on above: Performed By: #### G [facility] #### [facility] [address] [place] [address] Vaginal Pathogen DNAon 11-13 Estrada Vag DNA Probe Positive Abnormal Negative [facility] Comment on above: Performed By: #### G [facility] #### [facility] [address] [place] [address] Protein mass conc Positive Abnormal Negative [facility] Comment on above: Performed By: #### G [facility] #### [facility] [address] [place] [address] Trich Vag DNA Probe Negative Normal Negative [facility] Comment on above: Performed By: #### G [facility] #### [facility] [address] [place] [address] CBCon 10-24-2018 Erythrocyte distribution width Ratio (RBC) 13.2 % Normal 12.0-15.4 [facility] Comment on above: Performed By: #### G [facility] #### [facility] [address] [place] [address] Hematocrit Volume Fraction (Bld) 31.3 % Low 36.5-46.6 [facility] Comment on above: Performed By: #### G [facility] #### [facility] [address] [place] [address] Hemoglobin mass conc (Bld) 10.3 g/dL Low 11.8-15.3 [facility] Comment on above: Performed By: #### G [facility] #### [facility] [address] [place] [address] MCH Entitic mass (RBC) 30.0 pg Normal 27.5-33.0 [facility] Comment on above: Performed By: #### G [facility] #### [facility] [address] [place] [address] MCHC mass conc (RBC) 32.9 g/dL Normal 30.1-35.0 [facility] Comment on above: Performed By: #### G [facility] #### [facility] [address] [place] [address] MCV Entitic volume (RBC) 91.3 fL Normal 85.4-100.0 [facility] Comment on above: Performed By: #### G CCHA #### [facility] [address] [place] [address] NRBC Absolute 0.00 10*3/uL Normal [facility] Comment on above: Performed By: #### G [facility] #### [facility] [address] [place] [address] NRBC Automated 0.0 /100{WBCs} Normal [facility] Comment on above: Performed By: #### G CCHA #### [facility] [address] [place] [address] Platelet mean volume Entitic volume (Bld) 10.2 fL Normal 9.9-12.1 [facility] Comment on above: Performed By: #### G CCHA #### [facility] [address] [place] [address] Platelets #/vol (Bld) 233 10*3/uL Normal 155-404 [facility] Comment on above: Performed By: #### G CCHA #### [facility] [address] [place] [address] RBC #/vol (Bld) 3.43 10*6/uL Low 3.85-5.10 [facility] Comment on above: Performed By: #### G CCHA #### [facility] [address] [place] [address] RDW SD 44.4 fL Normal 39.3-48.6 [facility] Comment on above: Performed By: #### G CCHA #### [facility] [address] [place] [address] WBC #/vol (Bld) 8.8 10*3/uL Normal 4.4-9.9 [facility] Comment on above: Performed By: #### G CCHA #### [facility] [address] [place] [address] Glucose, 1 H Post 50 Gram (P regnancy Screen)on 10-24-2018 Glucose, 1 H Post 50 Gram ( Screen) 114 mg/dL Normal 55-140 [facility] Comment on above: Performed By: #### G CCHA #### [facility] [address] [place] [address] N. gonorrhoeae/C. trachomati s, Amplifiedon 10-16-2018 Chlamydia trachomatis, Amplified Positive Abnormal Negative [facility] Comment on above: Performed By: #### G CCHA #### [facility] [address] [place] [address] GC/CHLAM/TRICA Source Urine Normal [facility] Comment on above: Performed By: #### G CCHA #### [facility] [address] [place] [address] Neisseria gonorrhoeae, Amplified Positive Abnormal Negative [facility] Comment on above: Performed By: #### G [facility] #### [facility] [address] [place] [address] CBCon 09-18-2018 Erythrocyte distribution width Ratio (RBC) 13.5 % Normal 12.0-15.4 [facility] Comment on above: Performed By: #### 2 [id number] #### [facility] [address] [place] [address] Hematocrit Volume Fraction (Bld) 34.6 % Low 36.5-46.6 [facility] Comment on above: Performed By: #### 2 [id number] #### [facility] [address] [place] [address] Hemoglobin mass conc (Bld) 11.3 g/dL Low 11.8-15.3 [facility] Comment on above: Performed By: #### 2 [id number] #### [facility] [address] [place] [address] MCH Entitic mass (RBC) 29.5 pg Normal 27.5-33.0 [facility] Comment on above: Performed By: #### 2 [id number] #### [facility] [address] [place] [address] MCHC mass conc (RBC) 32.7 g/dL Normal 30.1-35.0 [facility] Comment on above: Performed By: #### 2 [id number] #### [facility] [address] [place] [address] MCV Entitic volume (RBC) 90.3 fL Normal 85.4-100.0 [facility] Comment on above: Performed By: #### 2 [id number] #### [facility] [address] [place] [address] NRBC Absolute 0.00 10*3/uL Normal [facility] Comment on above: Performed By: #### 2 [id number] #### [facility] [address] [place] [address] NRBC Automated 0.0 /100{WBCs} Normal [facility] Comment on above: Performed By: #### 2 [id number] #### [facility] [address] [place] [address] Platelet mean volume Entitic volume (Bld) 10.7 fL Normal 9.9-12.1 [facility] Comment on above: Performed By: #### 2 [id number] #### [facility] [address] [place] [address] Platelets #/vol (Bld) 255 10*3/uL Normal 155-404 [facility] Comment on above: Performed By: #### 2 [id number] #### [facility] [address] [place] [address] RBC #/vol (Bld) 3.83 10*6/uL Low 3.85-5.10 [facility] Comment on above: Performed By: #### 2 [id number] #### [facility] [address] [place] [address] RDW SD 44.2 fL Normal 39.3-48.6 [facility] Comment on above: Performed By: #### 2 [id number] #### [facility] [address] [place] [address] WBC #/vol (Bld) 8.8 10*3/uL Normal 4.4-9.9 [facility] Comment on above: Performed By: #### 2 [id number] #### [facility] [address] [place] [address] Culture, Urine Bacterialon 1 11-18-2017 Culture, Urine Bacterial BILL#: [id number] : 89 AGE: SEX: F AMBULATORY SOURCE: URINE COLLECTED: 09/18/18 19:09 ANTIBIOTICS AT MISSY.: RECEIVED : 09/18/18 22:53 SITE: Unspecified R E S U L T S URINE CULTURE,BACTERIAL FINAL 09/19/18 16:24 NO SIGNIFICANT GROWTH. Normal [facility] Comment on above: Performed By: #### U ARFX #### [facility] [address] [place] [address] Cystic Fibrosis, 165 Variant on 09-18-2018 CF 165 Variant Interp. 0 variants Normal [facility] Comment on above: Result Comment: None [...] 1 in 61 1 in 275 Ashkenazi Mandaen 96% 1 in 24 1 in 575 Irish 55% 1 in 94 1 in 210 92% 1 in 25 1 in 300 Irish 80% 1 in 58 1 in 285 [...] or bronchiectasis. INCIDENCE: 1 in 2,300 Ashkenazi Mandaen, 1 in 2,500 Caucasians, 1 in 13,500 [...] for the 23 recommended ACMG variants. c.1A>G, p.Reg9Xaa; c.46-4745_705+04520uku, Exons 2-3del; c.115C>T, p.Gln39X; c.178G>T, p.Glu60X; c.200C>T, p.Wed75Lvq; c.223C>T, p.Arg75X; c.254G>A (Legacy G85E), p.Xaa09Bvp; c.262_263delTT, p.Egw34EeuugO51 (aka p.Flx00ff); c.273+1G>A, Intronic; c.273+3A>C, Intronic; c.274-1G>A, Intronic; c.274G>A, p.Psw73Mlz; c.274G>T, p.Glu92X; c.292C>T, p.Gln98X; c.313delA, p.Iof654QufyzA6 (aka p.Pen299ng); c.325_327delTATinsG, p.Xrb752TphstG0 (aka p.Pht534xg); c.328G>C, p.Dnp080Hmt; c.349C>T, p.Tsr665Rgp; c.350G>A (Legacy R117H), p.Kde046Afy; c.366T>A, p.Rtu999C; c.442delA, p.Nut874LexlwL7 (aka p.Scl494rm); c.489+1G>T (Legacy 621+1G>T), Intronic; c.531delT, p.Edo252EiqyfM20 (aka p.Lkw153xm); c.532G>A, p.Lmm670Xoq; c.579+1G>T (Legacy 711+1G>T), Intronic; c.579+5G>A, Intronic; c.579+3A>G, Intronic; c.580-1G>T, Intronic; c.595C>T, p.Ilm102Ozy; c.613C>T, p.Ojf159Mqk; c.617T>G, p.Whj530Hlv; c.658C>T, p.Ezs470J; c.680T>G, p.Sco731Znw; c.720_741delAGGGAGAATGATGATGAAGTAC, p.Pjp258XsfrhV84 (aka p.Bqm885kq); c.803delA, p.Mpe289HdjlqF40 (aka p.Fuh431kd); c.805_806delAT, p.Efz370VuevqX9 (aka p.Uvu468hu); c.933_935delCTT, p.Gdb035zex; c.948delT, p.Iqm762TwxbgB97 (aka p.Agg458fq); c.988G>T, p.Owb722R; c.1000C>T (Legacy R334W), p.Fsk782Cfs; c.1007T>A, p.Dtd351Ioa; c.1021T>C, p.Wkc192Lca; c.1022_1023insTC, p.Zsl493GjftaS33 (aka p.Bje007sm); c.1040G>A, p.Ecr170Szi; c.1040G>C (Legacy R347P), p.Fph055Mbj; c.1055G>A, p.Own685Ajg; c.1081delT, p.Kqo927CglfuW6 (aka p.Gfy539iv); c.1116+1G>A, Intronic; c.1127_1128insA, p.Apv985HzftqW8 (aka p.Hho017kj); c.1153_1154insAT, p.Fgx861MxjdoX3 (aka p.Mzr587ar); c.1202G>A, p.Rra080Z; c.1203G>A, p.Aut370K; c.1209+1G>A, Intronic; c.1329_1330insAGAT, p.Piv717UqlrsJ8 (aka p.Pln783si); c.1340delA, p.Tos175GodjwZ9 (aka p.Umq594ui); c.1364C>A (Legacy A455E), p.Fil502Cof; c.1393-1G>A, Intronic; c.1397C>A, p.Hkr155E; c.1397C>G, p.Zkg772W; c.1400T>C, p.Jzx741Qhd; c.1418delG, p.Fik786RfoslS28 (aka p.Utr814az); c.1438G>T, p.Aeg625Auz; c.1466C>A, p.Gwg833B; c.1475C>T, p.Gty863Elh; c.1477C>T, p.Fif974S; c.1519_1521delATC (Legacy B400rdw), p.Att804ydp; c.1521_1523delCTT (Legacy Z707khx), p.Ydr825rmx; c.1545_1546delTA, p.Hlu909L; c.1558G>T, p.Izb987Cvz; c.1572C>A, p.Ntw253H; c.1573C>T, p.Kua101S; c.1585-1G>A (Legacy 1717-1G>A), Intronic; c.1585-8G>A, Intronic; c.1624G>T (Legacy G542X), p.Ilg789Q; c.1645A>C, p.Sgf175Fii; c.1646G>A, p.Ktz509Yfa; c.1647T>G, p.Omj482Rsq; c.1651G>A, p.Sok755Sgi; c.1652G>A (Legacy G551D), p.Jlp179Hny; c.1654C>T, p.Glh613A; c.1657C>T (Legacy R553X), p.Ylm610C; c.1675G>A, p.Uen058Srq; c.1679G>A, p.Ikr854Bwv; c.1679G>C (Legacy R560T), p.Cvx194Nmk; c.1679+1.6kbA>G, Intronic; c.1680-1G>A, Intronic; c.1703delT, p.How653YspntL5 (aka p.Xda337ek); c.1705T>G, p.Uiz621Icb; c.1721C>A, p.Nrn931Obo; c.1753G>T, p.Zab568X; c.1766+1G>A (Legacy 1898+1G>A), Intronic; c.1766+3A>G, Intronic; c.1792_1798delAAAACTA, p.Art456VuvdrP32 (aka p.Thk765xe); c.1911delG, p.Ely691PwxneU05 (aka p.Lfy321yx); c.1923_1931del9insA, p.Var934UmmacG1 (aka p.Toe857kq); c.del13insAGAAA, p.Uqo728QddznQ2 (aka p.Xxb465my); c.1975delA, p.Dvz006TqcfcK6 (aka p.Ulm137la); c.2011delT, p.Ibo485N; c.2050_2del, p.Skr891SaslbX6; c.2050_elinsG (aka c.205_elinsG), p.Tcp973YsnmdD61; c.2delA (Legacy 2184delA), p.Yfg563SkovyL86; c.2125C>T, p.Aqb257M; c.2128A>T, p.Dvr993Q; c.2175_2176insA, p.Inp950VvpxwE2 (aka p.Tci750gg); c.2195T>G, p.Pny558W; c.2215delG, p.Qtt978KlmqlY11 (aka p.Pqb022pu); c.2290C>T, p.Kil234Rhy; c.2453delT, p.Ogw342BrzvhD2 (aka p.Fkl325ax); c.2464G>T, p.Lmb722H; c.2490+1G>A, Intronic; c.2491G>T, p.Dyf802G; c.2537G>A, p.Ltj945T; c.2538G>A, p.Xdg258T; c.2551C>T, p.Fke887C; c.2583delT, p.Sbl427FdyadH9 (aka p.Cdt661vl); c.2657+5G>A (Legacy 2789+5G>A), Intronic; c.2668C>T, p.Ars253J; c.2737_2738insG, p.Yld049S; c.2780T>C, p.Tbl220Gja; c.2810_2811insT, p.Knm388HwjorZ46 (aka p.Xwe894pa); c.2834C>T, p.Mve483Qfx; c.2875delG, p.Cbl812ZsdtuC4 (aka p.Rfh973uk); c.2908G>C, p.Cfr573Gkv; c.2988+1G>A (Legacy 3120+1G>A), Intronic; c.2988G>A, Intronic; c.2989-1G>A, Intronic; c.3039delC, p.Uco0454UtjheS1 (aka p.Ojg9435fs); c.3067_3072delATAGTG, p.Lqh7494_Pfv2134ryi (aka H0308_I2552oad); c.3140-26A>G, Intronic; c.3194T>C, p.Fze4116Mxg; c.3196C>T, p.Vrz0793Dvb; c.3197G>A, p.Jbs2674Iqw; c.3230T>C, p.Jfu2652Mbq; c.3266G>A, p.Rcx3704C; c.3276C>A, p.Msa3657W; c.3276C>G, p.Gxf6166R; c.3302T>A, p.Jxi2909Eth; c.3310G>T, p.Jzl7135G; c.3472C>T, p.Xey6861M; c.3484C>T (Legacy Y3765F), p.Knj2167T; c.3528delC (Legacy 3659delC), p.Vij5194TownqF40 (aka p.Fcu6713uq); c.3536_3539del, p.Oeb2286WcygcK79 (aka p.Xtn0064bk); c.3587C>G, p.Djz9101W; c.3611G>A, p.Eyp9293V; c.3612G>A, p.Aob8128R; c.3659delC, p.Nqg2557HmjavN8 (aka p.Biv9455gz); c.3691delT, p.Knc1866CjuqzO7 (aka p.Zim1310af); c.3712C>T, p.Msp7759H; c.1088-2517C>T (Legacy 3849+10kbC>T), Intronic; c.3731G>A, p.Jmp3653Fgz; c.3744delA, p.Elw4153XhzzfM9 (aka p.Wju0433he); c.3752G>A, p.Ifp0308Nby; c.3763T>C, p.Hax9610Bsb; c.3764C>A, p.Ces9693U; c.3773_3774insT, p.Xxc7598OlmglV7 (aka p.Wkp1674vh); c.3846G>A (Legacy Z7287Z), p.Ujh7009U; c.3873+1G>A, Intronic; c.3909C>G (Legacy I6125C), p.Ccz2310Fpo; c.3937C>T, p.Isj5274Z; c.3964-78_4242+577del, Exons 22-23del; c.4028delG, p.Sdn6708NovjyU1 (aka p.Jvn2839af); c.4046G>A, p.Nqd2311Yhb; c.4077_4080delTGTTinsAA, p.Ueh2202guY2 (aka p.Kie6379bl); c.4111G>T, p.Vis9220G; c.4251delA, p.Ihs4223StkpjY73 (aka p.Rbg5337kd). The IVS-8 variant, c.1210-12[5], will be reported only when R117H is detected or in patients who are reported to be symptomatic. CLINICAL SENSITIVITY: Ashkenazi Mandaen 96 percent; 92 percent; 80 percent; 78 percent; Irish 55 percent. METHODOLOGY: Polymerase chain reaction (PCR) and fluorescence monitoring. Analytical Sensitivity & Specificity: 99 percent. LIMITATIONS: Diagnostic errors can occur due to rare sequence variations. Only the 165 pathogenic CFTR variants and 5T variant (listed above) will be interrogated. See Compliance Statement C: [email or web address] Performed by [facility], [address] [place] [id number] [email or web address], Robert Fraire MD - Lab. Director Performed By: #### U ARFX #### [facility] [address] [place] [address] CF 5T Variant Not Applicable Normal [facility] Comment on above: Performed By: #### U ARFX #### [facility] [address] [place] [address] CF Allele 1 Negative Normal [facility] Comment on above: Performed By: #### U ARFX #### [facility] [address] [place] [address] CF Allele 2 Negative Normal [facility] Comment on above: Performed By: #### U ARFX #### [facility] [address] [place] [address] CF Specimen Type Whole Blood Normal [facility] Comment on above: Performed By: #### U ARFX #### [facility] [address] [place] [address] CF Symptom No Normal [facility] Comment on above: Performed By: #### U ARFX #### [facility] [address] [place] [address] Ethnicity Normal [facility] Comment on above: Performed By: #### U ARFX #### [facility] [address] [place] [address] Family History No Normal [facility] Comment on above: Performed By: #### U ARFX #### [facility] [address] [place] [address] Drugs of Abuse, Urine(7)on 11-18-2017 Amphetamines/Metam phetamines, Urine Not Detected Normal [facility] Comment on above: Performed By: #### U ARFX #### [facility] [address] [place] [address] Barbiturates, Urine Not Detected Normal [facility] Comment on above: Performed By: #### U ARFX #### [facility] [address] [place] [address] Benzodiazepines, Urine Not Detected Normal [facility] Comment on above: Performed By: #### U ARFX #### [facility] [address] [place] [address] Cannabinoids, Urine Not Detected Normal [facility] Comment on above: Performed By: #### U ARFX #### [facility] [address] [place] [address] Cocaine, Urine Not Detected Normal [facility] Comment on above: Performed By: #### U ARFX #### [facility] [address] [place] [address] Methadone, Urine Not Detected Normal [facility] Comment on above: Performed By: #### U ARFX #### [facility] [address] [place] [address] Opiates, Urine Not Detected Normal [facility] Comment on above: Performed By: #### U ARFX #### [facility] [address] [place] [address] PCP, Urine Not Detected Normal [facility] Comment on above: Result Comment: Urin [...] #### [facility] [address] [place] [address] HIV 1 Ab, Conf WBloton 09-18 HIV 1 Ab, Conf WBlot Negative Normal Negative [facility] Comment on above: Result Comment: HIV- [...] Cellular and Tissue-Based Products (HCT/P). Performed by [facility], [address] [place] [id number] [email or web address], Robert Fraire MD - Lab. Director Performed By: #### U ARFX #### [facility] [address] [place] [address] Hemoglobin Identificationon 09-18-2018 Hemoglobin A2 2.8 % Normal [facility] Comment on above: Result Comment: HGB A2 values may be falsely elevated in the presence of HGB S Hemoglobin F 0.6 % Normal [facility] Hemoglobin mass conc (Bld) 96.6 % Normal [facility] Hemoglobin mass conc (Bld) SEE COMMENT Normal [facility] Comment on above: Result Comment: Norm al Hepatitis B Surface Antigeno n 09-18-2018 Hepatitis B Surface Antigen NONREACTIVE Normal NONREACTIVE [facility] Comment on above: Result Comment: Carrie ents receiving more than 5 mg/day of biotin may have interf in test results. A sample should be taken no sooner than eight after previous dose. Contact [phone] for additional infor Hepatitis C Antibody w/rfx t o Confirmon 09-18-2018 Hepatitis C Antibody NON-REACTIVE Normal NONREACTIVE [facility] Comment on above: Result Comment: Carrie ents receiving more than 5 mg/day of biotin may have interf in test results. A sample should be taken no sooner than eight after previous dose. Contact [phone] for additional infor Rubella Ab, IgGon 09-18-2018 Rubella Ab, IgG 16 IU/ML Normal [facility] Comment on above: Result Comment: REF VALUES NON-IMMUNE: < 5 EQUIVOCAL: 5-9 IMMUNE: >=10 Syphilis IgG w/Rflx toTiter, TP-PAon 09-18-2018 Syphilis IgG w/Rflx toTiter,TP-PA NON REACTIVE Normal NONREACTIVE [facility] Comment on above: Result Comment: Carrie ents receiving more than 5 mg/day of biotin may have interf in test results. A sample should be taken no sooner than eight after previous dose. Contact [phone] for additional infor TSHon 09-18-2018 Thyrotropin Qn 0.54 mU/L Normal 0.44-3.98 [facility] Comment on above: Performed By: #### U ARFX #### [facility] [address] [place] [address] Type and Screenon 09-18-2018 Group and Rh Positive Normal [facility] Comment on above: Performed By: #### T S3 #### [facility] [address] [place] [address] VZV Ab, IgGon 09-18-2018 VZV Ab, IgG Positive Normal NEGATIVE [facility] Comment on above: Result Comment: INTE RPRETATIVE [...] Vitamin D, 25 Hydroxy 26 ng/mL Abnormal [facility] Comment on above: Result Comment: DEFI CIENCY <20 INSUFFICIENCY 20-29 OPTIMUM LEVEL 30-80 POSSIBLE TOXICITY >80 Performed By: #### U ARFX #### [facility] [address] [place] [address] Culture, Urine Bacterialon 1 11-09-2017 Culture, Urine Bacterial BILL#: [id number] : 89 AGE: SEX: Primitivo COLÓN SOURCE: URINE COLLECTED: 09/09/18 13:19 ANTIBIOTICS AT MISSY.: RECEIVED : 09/09/18 22:34 SITE: Unspecified R E S U L T S URINE CULTURE,BACTERIAL FINAL 09/10/18 15:13 NO SIGNIFICANT GROWTH. Normal [facility] Comment on above: Performed By: #### C XBUR #### [facility] [address] [place] [address] N. gonorrhoeae/C. trachomati s, Amplifiedon 09-09-2018 Chlamydia trachomatis, Amplified Negative Normal Negative [facility] Comment on above: Performed By: #### G CCHA #### [facility] [address] [place] [address] GC/CHLAM/TRICA Source Swab-Endocerv Normal [facility] Comment on above: Performed By: #### G CCHA #### [facility] [address] [place] [address] Neisseria gonorrhoeae, Amplified Negative Normal Negative [facility] Comment on above: Performed By: #### G CCHA #### [facility] [address] [place] [address] Urinalysis with Reflex Cultu reon 09-09-2018 Appearance Nom (U) Hazy Normal Clear [facility] Comment on above: Performed By: #### U ARFX #### [facility] [address] [place] [address] Ascorbic Acid Negative Normal Negative [facility] Comment on above: Performed By: #### U ARFX #### [facility] [address] [place] [address] Automated Urine Microscopy Performed Normal [facility] Comment on above: Performed By: #### U ARFX #### [facility] [address] [place] [address] Bacteria LM.HPF #/area (Urine sed) Few Normal None [facility] Comment on above: Performed By: #### U ARFX #### [facility] [address] [place] [address] Bilirubin mass conc Negative Normal Negative [facility] Comment on above: Performed By: #### U ARFX #### [facility] [address] [place] [address] Blood Negative Normal Negative [facility] Comment on above: Performed By: #### U ARFX #### [facility] [address] [place] [address] Color Nom (U) Yellow Normal [facility] Comment on above: Performed By: #### U ARFX #### [facility] [address] [place] [address] Glucose mass conc Negative Normal Negative [facility] Comment on above: Performed By: #### U ARFX #### [facility] [address] [place] [address] Ketones Ql (U) Negative Normal Negative [facility] Comment on above: Performed By: #### U ARFX #### [facility] [address] [place] [address] Leukocytes Esterase Large Abnormal Negative [facility] Comment on above: Performed By: #### U ARFX #### [facility] [address] [place] [address] Mucous Rare Normal None [facility] Comment on above: Performed By: #### U ARFX #### [facility] [address] [place] [address] Nitrite Ql (U) Negative Normal Negative [facility] Comment on above: Performed By: #### U ARFX #### [facility] [address] [place] [address] pH (Bld) 6.0 Normal 5.0-9.0 [facility] Comment on above: Performed By: #### U ARFX #### [facility] [address] [place] [address] Protein mass conc (U) Negative Normal Negative [facility] Comment on above: Performed By: #### U ARFX #### [facility] [address] [place] [address] RBC 5 /[HPF] Normal 0-3 [facility] Comment on above: Performed By: #### U ARFX #### [facility] [address] [place] [address] Specific gravity Relative Density (U) 1.019 Normal 1.003-1.035 [facility] Comment on above: Performed By: #### U ARFX #### [facility] [address] [place] [address] Squamous Epithelial Cells 12 /[HPF] Normal 0-5 [facility] Comment on above: Performed By: #### U ARFX #### [facility] [address] [place] [address] Urobilinogen Qn (U) 2.0 mg/dL Abnormal Negative [facility] Comment on above: Performed By: #### U ARFX #### [facility] [address] [place] [address] WBC 6 /[HPF] Normal 0-5 [facility] Comment on above: Performed By: #### U ARFX #### [facility] [address] [place] [address] Vaginal Pathogen DNAon 11-06 -2018 Estrada Vag DNA Probe Positive Abnormal Negative [facility] Comment on above: Performed By: #### V AGPA #### [facility] [address] [place] [address] Protein mass conc Positive Abnormal Negative [facility] Comment on above: Performed By: #### V AGPA #### [facility] [address] [place] [address] Trich Vag DNA Probe Positive Abnormal Negative [facility] Comment on above: Performed By: #### V AGPA #### [facility] [address] [place] [address] Culture, Urine Bacterialon 0 07-30-2018 Culture, Urine Bacterial BILL#: [id number] : 89 AGE: SEX: F CAROL SOURCE: URINE COLLECTED: 07/30/18 17:03 ANTIBIOTICS AT MISSY.: RECEIVED : 07/30/18 22:34 SITE: Unspecified R E S U L T S URINE CULTURE,BACTERIAL FINAL 07/31/18 15:35 NO SIGNIFICANT GROWTH. Normal [facility] Comment on above: Performed By: #### C XBUR #### [facility] [address] [place] [address] N. gonorrhoeae/C. trachomati s, Amplifiedon 07-30-2018 Chlamydia trachomatis, Amplified Negative Normal Negative [facility] Comment on above: Performed By: #### G [facility] #### [facility] [address] [place] [address] GC/CHLAM/TRICA Source Urine Normal [facility] Comment on above: Performed By: #### G CCHA #### [facility] [address] [place] [address] Neisseria gonorrhoeae, Amplified Negative Normal Negative [facility] Comment on above: Performed By: #### G CCHA #### [facility] [address] [place] [address] Urinalysis with Reflex Cultu reon 07-30-2018 Appearance Nom (U) Clear Normal Clear [facility] Comment on above: Performed By: #### U ARFX #### [facility] [address] [place] [address] Ascorbic Acid Negative Normal Negative [facility] Comment on above: Performed By: #### U ARFX #### [facility] [address] [place] [address] Automated Urine Microscopy Performed Normal [facility] Comment on above: Performed By: #### U ARFX #### [facility] [address] [place] [address] Bacteria LM.HPF #/area (Urine sed) Rare Normal None [facility] Comment on above: Performed By: #### U ARFX #### [facility] [address] [place] [address] Bilirubin mass conc Negative Normal Negative [facility] Comment on above: Performed By: #### U ARFX #### [facility] [address] [place] [address] Blood Negative Normal Negative [facility] Comment on above: Performed By: #### U ARFX #### [facility] [address] [place] [address] Color Nom (U) Yellow Normal [facility] Comment on above: Performed By: #### U ARFX #### [facility] [address] [place] [address] Glucose mass conc Negative Normal Negative [facility] Comment on above: Performed By: #### U ARFX #### [facility] [address] [place] [address] Ketones Ql (U) Negative Normal Negative [facility] Comment on above: Performed By: #### U ARFX #### [facility] [address] [place] [address] Leukocytes Esterase Moderate Abnormal Negative [facility] Comment on above: Performed By: #### U ARFX #### [facility] [address] [place] [address] Mucous Rare Normal None [facility] Comment on above: Performed By: #### U ARFX #### [facility] [address] [place] [address] Nitrite Ql (U) Negative Normal Negative [facility] Comment on above: Performed By: #### U ARFX #### [facility] [address] [place] [address] pH (Bld) 6.0 Normal 5.0-9.0 [facility] Comment on above: Performed By: #### U ARFX #### [facility] [address] [place] [address] Protein mass conc (U) Negative Normal Negative [facility] Comment on above: Performed By: #### U ARFX #### [facility] [address] [place] [address] RBC 3 /[HPF] Normal 0-3 [facility] Comment on above: Performed By: #### U ARFX #### [facility] [address] [place] [address] Specific gravity Relative Density (U) 1.016 Normal 1.003-1.035 [facility] Comment on above: Performed By: #### U ARFX #### [facility] [address] [place] [address] Squamous Epithelial Cells 3 /[HPF] Normal 0-5 [facility] Comment on above: Performed By: #### U ARFX #### [facility] [address] [place] [address] Urobilinogen Qn (U) >=4.0 Abnormal Negative [facility] Comment on above: Performed By: #### U ARFX #### [facility] [address] [place] [address] WBC 16 /[HPF] Normal 0-5 [facility] Comment on above: Performed By: #### U ARFX #### [facility] [address] [place] [address] FOOT RT 3 OR MORE VWon 05-20 FOOT RT 3 OR MORE VW DATE OF EXAM: May 19 2018 11:20PM CLINICAL HISTORY/ Patient Name: JULIETTE HERNÁNDEZ STUDY: FOOT RT 3 OR MORE VW; 05/19/2018 11:20 pm INDICATION: Trauma. Pain COMPARISON: None. ACCESSION NUMBER(S): [id number] ORDERING CLINICIAN: LUIS CASTRO FINDINGS: Osseous structures and soft tissues appear normal. No fracture or dislocation is noted CONCLUSION: IMPRESSION: Normal right foot Normal [facility] Vital Signs Date Time Vital Sign Value Performing Clinician Facility 02-21-2024 10:39-0400 Body height 167.6 cm Chacorta Erwin MD Work Phone: [facility] 02-21-2024 10:39-0400 Body mass index (BMI) [Ratio] 22.6 kg/m2 Chacorta Erwin MD Work Phone: [facility] 02-21-2024 10:39-0400 Body temperature 97.3 [degF] Chacorta Erwin MD Work Phone: [facility] 02-21-2024 10:39-0400 Body weight 63.5 kg Chacorta Erwin MD Work Phone: [facility] 02-21-2024 10:39-0400 Diastolic blood pressure 54 mm[Hg] Chacorta Erwin MD Work Phone: [facility] 02-21-2024 10:39-0400 Heart rate 64 /min Chacorta Erwin MD Work Phone: [facility] 02-21-2024 10:39-0400 Respiratory rate 16 /min Chacorta Erwin MD Work Phone: [facility] 02-21-2024 10:39-0400 SaO2% (BldA) [Mass fraction] 100 % Chacorta Erwin MD Work Phone: [facility] 02-21-2024 10:39-0400 Systolic blood pressure 104 mm[Hg] Chacorta Erwin MD Work Phone: [facility] 06-19-2023 23:30-0400 Diastolic blood pressure 63 mm[Hg] [facility] 06-19-2023 23:30-0400 Heart rate 83 /[facility] 06-19-2023 23:30-0400 Respiratory rate 15 /min [facility] Asterion 06-19-2023 23:30-0400 SaO2% (BldA) [Mass fraction] 96 % [facility] 06-19-2023 23:30-0400 Systolic blood pressure 102 mm[Hg] [facility] 06-19-2023 21:44-0400 Body height 167.6 cm [facility] 06-19-2023 21:44-0400 Body mass index (BMI) [Ratio] 22.6 kg/m2 [facility] 06-19-2023 21:44-0400 Body temperature 98.01 [degF] [facility] 06-19-2023 21:44-0400 Body weight 63.5 kg [facility] 01-09-2023 16:18-0500 Body height 167.64 cm No PCP None [facility] Work Phone: 01-09-2023 16:18-0500 Body mass index (BMI) [Ratio] 24.59 kg/m2 No [facility] 01-09-2023 16:18-0500 Body surface area Derived from formula 1.78 m2 No PCP None [facility] Work Phone: 01-09-2023 16:18-0500 Body weight 69.12 kg No PCP [facility] Work Phone: 01-09-2023 16:18-0500 Diastolic blood pressure 60 mm[Hg] No PCP [facility] Work Phone: 01-09-2023 16:18-0500 Systolic blood pressure 116 mm[Hg] No PCP [facility] Work Phone: 11-21-2022 05:37-0500 Diastolic blood pressure 53 mm[Hg] No Pcp Required [facility] 11-21-2022 05:37-0500 Heart rate 85 /min No Pcp Required [facility] 11-21-2022 05:37-0500 Respiratory rate 18 /min No Pcp Required [facility] 11-21-2022 05:37-0500 SaO2% (BldA) [Mass fraction] 100 % No Pcp Required [facility] 11-21-2022 05:37-0500 Systolic blood pressure 100 mm[Hg] No Pcp Required [facility] 11-21-2022 03:56-0500 Body height 167.6 cm No Pcp Required [facility] [place] 11-21-2022 03:56-0500 Body temperature 97.7 [degF] No Pcp Required [facility] 11-21-2022 03:56-0500 Body weight 68.1 kg No Pcp Required [facility] [place] 09-08-2022 22:01-0400 Diastolic blood pressure 61 mm[Hg] No Pcp Required [facility] 09-08-2022 22:01-0400 Heart rate 69 /min No Pcp Required [facility] [place] 09-08-2022 22:01-0400 Respiratory rate 16 /min No Pcp Required [facility] 09-08-2022 22:01-0400 SaO2% (BldA) [Mass fraction] 100 % No Pcp Required [facility] 09-08-2022 22:01-0400 Systolic blood pressure 121 mm[Hg] No Pcp Required [facility] 09-08-2022 17:31-0400 Body height 167.6 cm No Pcp Required [facility] [place] 09-08-2022 17:31-0400 Body temperature 98.24 [degF] No Pcp Required [facility] 09-08-2022 17:31-0400 Body weight 66 kg No Pcp Required [facility] [place] 06-26-2021 16:54-0400 Diastolic blood pressure 65 mm[Hg] No Pcp Required [facility] 06-26-2021 16:54-0400 Heart rate 70 /min No Pcp Required [facility] [place] 06-26-2021 16:54-0400 Respiratory rate 16 /min No Pcp Required [facility] 06-26-2021 16:54-0400 SaO2% (BldA) [Mass fraction] 97 % No Pcp Required [facility] 06-26-2021 16:54-0400 Systolic blood pressure 112 mm[Hg] No Pcp Required [facility] 06-26-2021 11:14-0400 Body height 167.6 cm No Pcp Required [facility] 06-26-2021 11:14-0400 Body temperature 98.06 [degF] No [facility] 06-26-2021 11:14-0400 Body weight 71.9 kg No Pcp Required [facility] 10-03-2020 11:52-0500 BMI (Body Mass Index) 24.14 kg/m2 Cally Sherlock -[facility] Work Phone: 10-03-2020 11:52-0500 Body Temperature 97 [degF] Cally Sherlock -[facility] Work Phone: 10-03-2020 11:52-0500 Body weight 67.84 kg Cally Sherlock -[facility] Work Phone: 10-03-2020 11:52-0500 BP Diastolic 76 mm[Hg] Cally Sherlock -[facility] Work Phone: Comment on above: Location: LUE; Position: Sitting 10-03-2020 11:52-0500 BP Systolic 104 mm[Hg] Cally Sherlock -[facility] Work Phone: Comment on above: Location: LUE; Position: Sitting 10-03-2020 11:52-0500 BSA (Body Surface Area) 1.77 m2 Cally Sherlock -[facility] Work Phone: 10-03-2020 11:52-0500 Height 167.64 cm Cally Sherlock -[facility] Work Phone: 06-02-2020 14:04-0400 BMI (Body Mass Index) 22.76 kg/m2 Chica Wisdom UQ-QHJF-Fwuq [facility] Work Phone: 06-02-2020 14:04-0400 Body Temperature 98.1 [degF] Chica Wisdom TE-YMZW-Qqgn [address] [facility] Work Phone: 06-02-2020 14:04-0400 Body weight 63.96 kg Chica Wisdom AZ-YIRQ-Fhlj [address] [facility] Work Phone: 06-02-2020 14:04-0400 BP Diastolic 72 mm[Hg] Chica Wisdom YH-EXHU-Wqqe [address] [facility] Work Phone: 06-02-2020 14:04-0400 BP Systolic 104 mm[Hg] Chica Wisdom XE-TWTL-Unam [address] [facility] Work Phone: 06-02-2020 14:04-0400 BSA (Body Surface Area) 1.72 m2 Chica Wisdom TF-GEGY-Ljsq [facility] [facility] Work Phone: 06-02-2020 14:04-0400 Pulse (Heart Rate) 60 /min Chica Wisdom HC-OOXZ-Naxq [facility] [facility] Work Phone: 06-02-2020 14:04-0400 Pulse Oximetry 99 % Chica Wisdom AS-NFKZ-Lrpq [address] [facility] Work Phone: 06-02-2020 14:04-0400 Respiratory Rate 16 /min Chica Wisdom UP-TKFT-Quod [address] [facility] Work Phone: Encounters Encounter Date Encounter Type Care Provider Facility Start: 01-07-2025 Evaluation and management of inpatient NARINDER [facility] Start: 01-07-2025 [facility]: 01-06-2025 Evaluation and management of inpatient WOO RAMIREZRADHA [facility] Start: 01-05-2025 Evaluation and management of inpatient GIL ZHANG [facility] Start: 01-05-2025 Evaluation and management of inpatient NARINDER SAFI [facility] Start: 01-05-2025 [facility]: 01-04-2025 Evaluation and management of inpatient GIL T [facility] Start: 01-04-2025 Evaluation and management of inpatient WOO [facility] Start: 01-04-2025 [facility] Start: 01-03-2025 Evaluation and management of inpatient WOO [facility] Start: 01-02-2025 Evaluation and management of inpatient GIL De León [facility] Start: 01-02-2025 Evaluation and management of inpatient WOO [facility] Start: 01-02-2025 Evaluation and management of inpatient WOO [facility] Start: 01-02-2025 Evaluation and management of inpatient FELISHA BRADEN [facility] Start: 01-01-2025 Evaluation and management of inpatient GIL De León [facility] Start: 01-01-2025 Evaluation and management of inpatient DENIA ZAMORA [facility] Start: 01-01-2025 End: 01-07-2025 Evaluation and management of inpatient JENNIFER TRACIE [facility] Start: 12-08-2024 End: 12-08-2024 ambulatory [facility]IF [facility] Start: 12-08-2024 End: 12-08-2024 Subsequent hospital visit by physician Sunny Lilly MD [facility] Start: 12-04-2024 End: 12-04-2024 ambulatory SHARIF [facility] Start: 12-04-2024 End: 12-04-2024 Subsequent hospital visit by physician Sunny Lilly MD Work Phone: [facility] Start: 10-14-2024 End: 10-14-2024 [facility] Start: 09-28-2024 End: 09-28-2024 ambulatory [facility] Start: 09-28-2024 End: 09-28-2024 Subsequent hospital visit by physician Sunny Lilly MD Work Phone: [facility] Start: 05-26-2024 End: 05-26-2024 ambulatory [facility] Start: 05-26-2024 End: 05-26-2024 Subsequent hospital visit by physician Sunny Lilly MD Work Phone: [facility] Start: 05-08-2024 End: 05-08-2024 ambulatory [facility] Start: 05-04-2024 End: 05-04-2024 ambulatory [facility] Start: 04-24-2024 End: 04-24-2024 Emergency department patient visit [facility] Start: 02-21-2024 End: 02-21-2024 Emergency department patient visit NO ASSIGNED PCP GENERIC PROVIDER [facility] Start: 02-21-2024 End: 02-21-2024 Emergency department patient visit Chacorta Erwin MD Work Phone: [facility] Emergency Medicine Comment on above: Trichomonas exposure (Primary Dx); Rash Start: 06-19-2023 End: 06-20-2023 Emergency department patient visit [facility] Start: 06-19-2023 End: 06-20-2023 Emergency department patient visit [facility] ED Comment on above: Multiple drug overdo se, accidental or unintentional, initial encounter (Primary Dx) Start: 05-29-2023 End: 05-29-2023 Emergency department patient visit [facility] Start: 01-09-2023 Office outpatient vi sit 15 minutes No PCP None [facility] Work Phone: Start: 01-09-2023 Patient encounter procedure No PCP None [facility] Work Phone: Start: 01-09-2023 ambulatory MD CALLY REDD KEVEN Facility:[id number] Start: 12-19-[address] Chacorta Erwin Facility:[id number] Start: 11-22-2022 Patient encounter procedure No PCP [facility] Work Phone: Start: 11-22-[address] Chacorta Erwin Facility:[id number] Start: 11-21-2022 End: 11-21-2022 Emergency department patient visit Lilian Wilkins [facility] 05 Start: 11-20-2022 End: 11-20-2022 Emergency department patient visit Elinor Sagastume [facility] 04 Start: 10-08-2022 End: 10-08-2022 Emergency department patient visit DAWSON [facility] Start: 09-08-2022 End: 09-08-2022 Emergency department patient visit Kirk Roldan [facility] 01 Start: 06-26-2021 End: 06-26-2021 Emergency department patient visit Reta Sanchez [facility] 25 Start: 10-03-2020 Patient encounter procedure Cally Meyer -[facility] Work Phone: Start: 09-05-2020 Patient encounter procedure Cally Meyer -[facility] Work Phone: Start: 06-10-2020 Patient encounter procedure Cally Meyer -[facility] Work Phone: Start: 06-02-2020 Patient encounter procedure Chica Wisdom BW-JTOA-Bejd [facility] Work Phone: Start: 10-26-2019 Patient encounter procedure Chica Wisdom VZ-KMBE-Iqsk [facility] Work Phone: Start: 08-25-2019 Patient encounter procedure Chica Wisdom WH-ODRX-Bggm [facility] [facility] Work Phone: Start: 07-16-2019 Patient encounter procedure Chica Wisdom VZ-NDKL-Tfox [facility] [facility] Work Phone: Start: 06-11-2019 Patient encounter procedure Chica Wisdom TD-ICZM-Yhuq [facility] [facility] Work Phone: Start: 04-22-2019 Patient encounter procedure Chica Wisdom LV-WNGH-Nddl [facility] [facility] Work Phone: Start: 01-19-2019 End: 01-21-2019 Evaluation and management of inpatient KEYSHA BAH Facility:[facility] Start: 01-15-2019 Patient encounter procedure Chica Wisdom SM-TKVC-Gxgc [facility] [facility] Work Phone: Start: 01-08-2019 Patient encounter procedure Chica Wisdom MK-WLHA-Gczz [facility] [facility] Work Phone: Start: 01-01-2019 Patient encounter procedure Chica Wisdom SE-HXQQ-Nlfh [address] [facility] Work Phone: Start: 12-25-2018 Patient encounter procedure KEYSHA BAH Facility:[facility] Start: 12-25-2018 Patient encounter procedure Chica Wisdom ER-COMP-Ngjg [address] [facility] Work Phone: Start: 12-18-2018 Patient encounter procedure Chica Wisdom GB-QLCT-Prpd [address] [facility] Work Phone: Start: 12-11-2018 End: 12-11-2018 Patient encounter procedure KEYSHA BAH Facility:[facility] Start: 12-04-2018 Patient encounter procedure Chica Wisdom WV-VSQF-Fwam [address] [facility] Work Phone: Start: 12-01-2018 End: 12-01-2018 Patient encounter procedure KEYSHA BAH Facility:[facility] Start: 11-27-2018 Patient encounter procedure Chica Wisdom PM-WTAX-Tkek [address] [facility] Work Phone: Start: 11-13-2018 Patient encounter procedure KEYSHA BAH Facility:[facility] Start: 11-13-2018 Patient encounter procedure KEYSHA BAH Facility:7 Start: 10-24-2018 Patient encounter procedure KEYSHA BAH Facility:[facility] Start: 10-16-2018 Patient encounter procedure KEYSHA BAH Facility:[facility] Start: 10-07-2018 Patient encounter procedure Chica Wisdom DD-JQNX-Axoc [address] [facility] Work Phone: Start: 09-18-2018 Patient encounter procedure KEYSHA BAH Facility:[facility] Start: 09-18-2018 Patient encounter procedure KEYSHA BAH Facility:7 Start: 09-18-2018 Patient encounter procedure Chica Wisdom QK-HEZM-Eqfw [address] [facility] Work Phone: Start: 09-09-2018 End: 09-09-2018 Emergency department patient visit NO FAMILY DOCTOR NO FAMILY DOCTOR Facility:[facility] Start: 07-30-2018 End: 07-30-2018 Emergency department patient visit NO FAMILY DOCTOR NO FAMILY DOCTOR Facility:[facility] Start: 05-20-2018 End: 05-20-2018 Emergency department patient visit BRAULIO LILLY Facility:[facility] Menarche No PCP None [facility] [place] Work Phone: Patient encounter status No PCP None [facility] [place] Work Phone: Procedures Date Procedure Procedure Detail Performing Clinician Start: 12-08-2024 Comprehensive metabo lic panel Sharif Ivory INDUSTRIAL ECOLOGY TECHNICIAN - [employer]EVER[employer] SALES CONSULTANT Work Phone: Start: 12-08-2024 Hepatitis b surf ant ibody hbsab Sharif Ivory INDUSTRIAL ECOLOGY TECHNICIAN - [employer]EVERAGE SALES CONSULTANT Work Phone: Start: 12-08-2024 T. PALLIDUM AB Sharif R cliff INDUSTRIAL ECOLOGY TECHNICIAN - [employer]EVERAGE SALES CONSULTANT Work Phone: Start: 12-04-2024 Smr prim src wet cecilia nt nfct agt Sharif Ivory INDUSTRIAL ECOLOGY TECHNICIAN - BEVERAGE SALES CONSULTANT Work Phone: Start: 09-28-2024 Smr prim src wet cecilia nt nfct agt Sharif Ivory INDUSTRIAL ECOLOGY TECHNICIAN - BEVERAGE SALES CONSULTANT Work Phone: Start: 05-26-2024 Smr prim src wet cecilia nt nfct agt Sharif Ivory INDUSTRIAL ECOLOGY TECHNICIAN - BEVERAGE SALES CONSULTANT Work Phone: Start: 02-21-2024 C. TRACHOMATIS + N. GONORRHOEAE, AMPLIFIED NO GENERIC PROVIDER Start: 02-21-2024 TRICH VAGINALIS, AMPLIFIED NO GENERIC PROVIDER Start: 06-19-2023 Ecg routine ecg w/le ast 12 lds w/i&r Jose Littlejohn PA-C Work Phone: Start: 09-08-2022 End: 09-08-2022 EKG impression Kirk Roldan Start: 09-02-2020 Iadna chlamydia trac homatis amplified probe tq Cally Meyer Start: 09-02-2020 Trichomonas vaginali s [Presence] in Cervix by Wet preparation Cally Meyer Start: 01-19-2019 Antibody screen BRAULIO LILLY Comment on above: Performed By: #### U ARFX #### [facility] [address] [place] [address] Start: 09-18-2018 Antibody screen BRAULIO LILLY Comment on above: Performed By: #### T S3 #### [facility] [address] [place] [address] Bilateral tubal ligation No PCP None Dilation and curettage Claudia Wisdom Plan of Treatment Date Care Activity Detail Author Start: 2054 RSV patient s and/or patients aged 60+ years (1 - 1-dose 60+ series) RSV patients and/or patients aged 60+ years (1 - 1-dose 60+ series) [facility] Start: 2044 Zoster Vaccines (1 o f 2) Zoster Vaccines (1 of 2) [facility] Start: 11-13-2028 DTaP/Tdap/Td vaccine (3 - Td or Tdap) DTaP/Tdap/Td vaccine (3 - Td or Tdap) [facility] Start: 11-13-2028 DTaP/Tdap/Td Vaccine s (3 - Td or Tdap) DTaP/Tdap/Td Vaccines (3 - Td or Tdap) [facility] Start: 07-05-2024 COVID-19 Vaccine ( season) COVID-19 Vaccine ( season) [facility] Start: 07-05-2024 Influenza vaccination Influenz a Vaccine (Season Ended) [facility] Start: 2024 Screening for malign ant neoplasm of cervix [facility] Start: 06-04-2024 Influenza vaccination Flu vaccine (# 1) [facility] Start: 07-05-2023 COVID-19 Vaccine ( season) COVID-19 Vaccine ( season) [facility] Start: 06-04-2023 Influenza vaccination Flu vaccine (# 1) [facility] Start: 02-20-2023 FUV, Provider: Cally Meyer, Status: Pen, Time: 9:15 AM FUV, Provider: Cally Meyer, Status: Pen, Time: 9:15 AM [facility] Work Phone: Start: 12-19-2022 FUV, Provider: Chacorta Erwin, Status: Pen, Time: 2:45 PM FUV, Provider: Chacorta Erwin, Status: Pen, Time: 2:45 PM [facility] Work Phone: Start: 09-08-2022 Syncope Syncope Date: 08-Sep-2022 [facility] Start: 2015 Screening for malign ant neoplasm of cervix [facility] Start: 2013 Hepatitis B vaccine (1 of 3 - 19+ 3-dose series) Hepatitis B vaccine (1 of 3 - 19+ 3-dose series) [facility] Start: 2013 Hepatitis B Vaccines (1 of 3 - 19+ 3-dose series) Hepatitis B Vaccines (1 of 3 - 19+ 3-dose series) [facility] Start: 2012 Hepatitis C screening B [facility] Start: 2009 HIV screening HIV screen [facility] Start: 2007 Varicella vaccination Varicell a Vaccines (1 of 2 - 13+ 2-dose series) [facility] Start: 2007 Varicella vaccine (1 of 2 - 13+ 2-dose series) Varicella vaccine (1 of 2 - 13+ 2-dose series) [facility] Start: 2006 [facility] Screen [facility] Start: 1995 MMR Vaccines (1 of 1 - Standard series) MMR Vaccines (1 of 1 - Standard series) [facility] Start: 1995 Varicella vaccine (1 of 2 - 2-dose childhood series) Varicella vaccine (1 of 2 - 2-dose childhood series) [employer] [facility] Start: 01-01-1995 COVID-19 Vaccine (#1) COVID-19 Vacci ne (#1) [employer] [facility] Start: 1994 Hepatitis B vaccine (1 of 3 - 3-dose series) Hepatitis B vaccine (1 of 3 - 3-dose series) [employer] [facility] Start: 1994 HIV screening HIV Screening [facility] Start: 1994 Lipid panel Lipid Panel [facility] Start: 1994 Yearly Adult Physical Yearly Adult P hysical [facility] C.trachomatis N.gonorrhoeae DNA C.trachomatis N.gonorrhoeae DNA Microbiology Routine 09/28/2024 6:55 AM EST [facility] Work Phone: C.trachomatis N.gonorrhoeae DNA C.trachomatis N.gonorrhoeae DNA Microbiology Routine 12/04/2024 7:45 AM EST [facility] Work Phone: End: 02-21-2024 Chlamydia trachomatis and Neisseria gonorrhoeae DNA [Identifier] in Unspecified specimen by JOSE R with probe detection [facility] Service Area Work Phone: Comment on above: Once (Lab) for 1 Occ urrences starting 02/21/2024 until 02/21/2024 EKG 12 Lead EKG 12 Lead ECG STAT 06/19/2023 9:49 PM EDT [facility] Phone: End: 12-08-2024 Hepatitis C RNA, quantitative, PCR [employer] Phone: Comment on above: Once for 1 Occurrenc es starting 12/08/2024 until 12/08/2024 End: 02-21-2024 Trichomonas vaginalis rRNA [Presence] in Unspecified specimen by JOSE R with probe detection [facility] Work Phone: Comment on above: Once (Lab) for 1 Occ urrences starting 02/21/2024 until 02/21/2024 Immunizations Immunization Date Immunization Notes Care Provider Tia johnson 11-13-2018 tetanus toxoid, redu wilson diphtheria toxoid, and acellular pertussis vaccine, adsorbed Chica Wisdom ZW-QKCU-Wxim [address] [facility] Work Phone: Comment on above: Series: 08-05-2015 influenza virus vacc ine, unspecified formulation No PCP None [facility] Work Phone: Comment on above: Series: 08-05-2015 influenza, seasonal, injectable Chica Wisdom TG-UXQR-Kxec [address] [facility] Work Phone: 08-02-2015 tetanus toxoid, redu wilson diphtheria toxoid, and acellular pertussis vaccine, adsorbed Chica Wisdom QH-OGHH-Hofx [address] [facility] Work Phone: Comment on above: Series: Payers Date Payer Category Payer Unknown [id number] 2019 Unknown 2019 Unknown [id number] 1994 Unknown [id number] 2.16.8 40.1.411501.3.579.2.355 1994 Unknown [id number] 2.16.8 40.1.687341.3.579.2.355 1994 Unknown [id number] 2.16.8 40.1.181297.3.579.2.355 1994 Unknown [id number] 2.16.8 40.1.305825.3.579.2.355 1994 Unknown [id number] 2.16.8 40.1.753962.3.579.2.355 1994 Unknown [id number] 2.16.8 40.1.663666.3.579.2.355 1994 Unknown [id number] 2.16.8 40.1.333789.3.579.2.355 1994 Unknown [id number] 2.16.8 40.1.824034.3.579.2.355 1994 Unknown [id number] 2.16.8 40.1.404546.3.579.2.355 1994 Unknown [id number] 2.16.8 40.1.082318.3.579.2. 1994 Unknown [id number] 2.16.8 40.1.366955.3.579.2. 1994 Unknown [id number] 2.16.8 40.1.290602.3.579.2.355 1994 Unknown [id number] 2.16.8 40.1.564619.3.579.2.355 1994 Unknown [id number] 2.16.8 40.1.965264.3.579.2.1067 1994 Unknown [id number] 2.16.8 40.1.726597.3.579.2.1067 1994 Unknown [id number] 2.16.8 40.1.843860.3.579.2.8 1994 Unknown [id number] 2.16.8 40.1.054937.3.579.2.1067 1994 Unknown [id number] 2.16.8 40.1.589440.3.579.2.8 1994 Unknown [id number] 2.16. 840.1.569817.3.579.2.356 1994 Unknown [id number] 2.16.8 40.1.899424.3.579.2.182 1994 Unknown [id number] 2.16.8 40.1.109696.3.579.2.182 1994 Unknown [id number] 2.16.8 40.1.002185.3.579.2.182 1994 Unknown [id number] 2.16.84 0.1.755316.3.579.2.1246 1994 Unknown [id number] 2.16.8 40.1.667599.3.579.2.173 1994 Unknown [id number] 2.16.8 40.1.844982.3.579.2.173 1994 Unknown [id number] 2.16.8 40.1.698358.3.579.2.173 1994 Unknown [id number] 2.16.8 40.1.091567.3.579.2.173 1994 Unknown [id number] 2.16.8 40.1.729648.3.579.2.173 1994 Unknown [id number] 2.16.8 40.1.126308.3.579.2.173 1994 Unknown [id number] 2.16.8 40.1.329250.3.579.2.173 1994 Unknown [id number] 2.16.8 40.1.544098.3.579.2.173 Social History Date Type Detail Facility Assertion Tobacco smoking consumption unknown (finding) [id number] [facility] Work Phone: Tobacco smoking consumption unknown [facility] Start: 04-24-2024 Caffeine use Caffeine use [facility] Work Phone: Start: 10-08-2022 End: 02-21-2024 Tobacco smoking status NHIS Never smoked tobacco [facility] Start: 10-08-2022 End: 02-21-2024 Tobacco use and exposure Smokeless tobacco non-user [facility] Start: 10-08-2022 End: 04-24-2024 Alcohol intake Current drinker of alcohol (finding) [facility] Start: 06-20-2023 History SDOH Alcohol Frequency 3 [facility] Start: 08-17-2023 History SDOH Alcohol Std Drinks [address] [place] Start: 1995 Sex Assigned At Not on file [place] Start: 02-21-2024 Alcoholic beverage intake Lifetime non-drinker (finding) [facility] Work Phone: Start: 04-24-2024 Gender identity Not on file [facility] Work Phone: Start: 02-11-2024 End: 02-21-2024 Exposure to SARS-CoV-2 (event) Not sure [facility] Work Phone: How often to you hav e a drink containing alcohol? Never [place] How many standard drinks containing alcohol do you have on a typical day? Patient does not drink [facility] Medical Equipment Procedure Code Equipment Code Equipment Original Text Equipment Identifier Dates Clip, [place], Tubal, Filshie Case [id number] Start: 06-18-2019 Comment on above: Description: Convert ed from [facility]. Please see archived information for full log information. Functional Status Date Assessment Result Facility NEGATED: Highlighted row Functional performance Functional status health issues are not documented Disease [id number] Work Phone: Mental Status Date Assessment Result Facility NEGATED: Highlighted row Cognitive function [Interpretation] Cognitive status health issues are not documented Disease [id number] [facility] Work Phone: Clinical Notes 07-15-2021 to 01-07-2025 Radha Lima PA-C - 02/21/2024 10:38 AM EDTMgilberto Lima PA-C - 02/21/2024 10:38 AM EDT Note Date & Type Note Facility 01-07-2025 Note Hospital Medicine Discharge Summary Final Discharge Diagnosis: Spontaneous pneumothorax H/o polysubstance abuse Heart murmur, aortic Iron deficiency anemia Admission Diagnosis: Spontaneous pneumothorax [J93.83] Hospital course: 29yoF with h/o polysubstance abuse who was admitted to [facility] on 01/01 for spontaneous pneumothorax. She was transferred from [facility] with chest pain and dyspnea. This was in the setting of recent history of pneumothorax 2 weeks prior quiring chest tube placement. cardiothoracic surgery was consulted who reached out to general surgery for chest tube placement. Pulmonology was also consulted who performed pleurodesis after the patient had shown improvement. This was done as no clear etiology could be identified with the patient's history. The patient successfully had chest tube removed on 01/06 and ultimately was discharged on 01/07 in good condition. Surgical, Invasive or Diagnostic Procedures Done During Admission: Chest tube placement, pleurodesis Consultations During Admission: CT Surgery and Pulmonary Dear Dr. Hudson, [employer], Juliette is advised to follow up with you within 1-2 weeks. Items to follow up in ambulatory setting: Follow up CXR Follow-up with: CT Surgery and Pulmonary Scheduled appointments: Future Appointments Date Time Provider Department Center 02/25/2025 3:30 PM Leodan Hardwick MD [facility] Comprehensiv Your medication list START taking these medications Instructions Last Dose Given Next Dose Due acetaminophen 500 mg tablet Commonly known as: Tylenol Take 2 tablets (1,000 mg) by mouth every 8 (eight) hours for 284 doses. ARIPiprazole 5 mg tablet Commonly known as: Abilify Start taking on: January 08, 2025 Take 1 tablet (5 mg) by mouth in the morning for 93 doses. ferrous sulfate 325 (65 Fe) MG tablet Start taking on: January 08, 2025 Take 1 tablet (325 mg) by mouth with breakfast for 93 doses. gabapentin 300 mg capsule Commonly known as: Neurontin Take 1 capsule (300 mg) by mouth three times daily for 282 doses. oxyCODONE 10 mg immediate release tablet Commonly known as: Roxicodone Take 1 tablet (10 mg) by mouth every 6 (six) hours if needed for severe pain (8-10 pain score) for up to 6 days. CONTINUE taking these medications Instructions Last Dose Given Next Dose Due FLUoxetine 40 mg capsule Commonly known as: PROzac Where to Get Your Medications These medications were sent to [facility] - [place], [place] - [address], [facility] [id number] acetaminophen 500 mg tablet ARIPiprazole 5 mg tablet ferrous sulfate 325 (65 Fe) MG tablet gabapentin 300 mg capsule oxyCODONE 10 mg immediate release tablet Juliette has No Known Allergies. Disposition: Home or Self Care () Discharge Condition: Stable Code Status: Prior Diagnostic Results Hematology: Results from last 7 days Lab Units 01/06/25 0618 01/05/25 0456 WBC AUTO 10*3/uL 6.11 7.75 HEMOGLOBIN g/dL 11.2* 11.4* HEMATOCRIT % 35.7* 35.8* MCV fL 85.4 83.4 PLATELETS AUTO 10*3/uL 318 330 Chemistry: Results from last 7 days Lab Units 01/06/25 0618 01/05/25 0456 01/04/25 0634 SODIUM mmol/L 140 138 136 POTASSIUM mmol/L 4.0 3.6 4.6 CHLORIDE mmol/L 103 103 105 CO2 mmol/L 25 24 22 BUN mg/dL 20 14 14 CREATININE mg/dL 0.70 0.62 0.60 GLUCOSE mg/dL 91 71 85 MAGNESIUM mg/dL 1.8* 1.8* 1.9 CALCIUM mg/dL 9.1 9.3 8.9 Results from last 7 days Lab Units 01/01/25 0618 AST U/L 21 ALT U/L 15 ALK PHOS U/L 65 BILIRUBIN TOTAL mg/dL 0.5 Test Results Pending At Discharge: Diet at the time of discharge: regular diet Nutrition Screen Activity: Patient currently has no discharge activity orders Objective Blood pressure 120/75, pulse 74, temperature 36.7 ???C (98 ???F), temperature source Temporal, resp. rate 14, height 1.676 m (5' 6 ), weight 85.1 kg (187 lb 9.6 oz), SpO2 97%. Cardiology: Normal rate, regular rhythm. Lungs: Clear to auscultation, no wheezes, rales or rhonchi, symmetric air entry. Abdomen: Soft, non tender, non distended. Skin: R neck crepitus Total time for discharge - review of data, exam, discussion with providers and care-team, med-rec and orders, arranging follow up, counseling of patient and/or family and documentation was 30 minutes. Signed Gil Zhang MD [facility] 01/07/2025 4:59 PM CC: KUMAR Hudson [facility] 01-07-2025 Note Expand All Collapse All Cardiothoracic Surgery Progress Note 01/05/2025 Room: [address] [place], [place] [id number] [facility] Juliette Hernández is a 29 y.o. female with medical history significant for anxiety, depression, and polysubstance abuse with history of overdose. Medical history obtained from the patient and the medical records. She presenting as direct admission to [facility] early this morning, transferred from [facility]. Upon presentation to [facility], she complained of right sided chest pain that progressively worsened over the past 2 days. CXR revealed a moderate to large spontaneous pneumothorax and a small pleural catheter was placed. She denies recent injury or traumatic event. Denies URI or coughing episodes. Denies history of asthma, emphysema, or other lung disease. Denies smoking cigarettes or vaping. States that she smoke marijuana from time to time. She had a previous spontaneous pneumothorax 2 weeks ago and a chest tube was placed. She was transferred to [facility] for surgical evaluation for possible VATS with pleurodesis. 01/04 s/p chemical pleurodesis right side 01/05-Yesterday underwent chemical pleurodesis per pulmonary team bedside with doxycycline 500mg injected into chest tube. Patient experienced a lot of pain with the procedure and numbness and tingling of right arm. CXR was checked due to chest tube being clamped and showed PTX to be stable on right side. Symptoms subsided with increasing pain control medications. Seen bedside this morning, still endorsing chest tube site pain. Chest tube remains to continuous suction with no air leak. 01/06/25- Sitting up in bed without complaints. No acute events overnight. The chest tube remains clamped since yesterday. CT Chest was performed on yesterday, while chest tube was clamped. Patient denies shortness of breath. No fever or chills. Ambulating without difficulty. Tolerating regular diet. No nausea or vomiting. 01/07/25- Chest tube removed yesterday. CXR this am shows tiny apical right PTX, improvement in subcutaneous air. Remains on room air. Pain is well controlled. Patient wishes to be discharged today. Physical Exam Constitutional: General: She is not in acute distress. Appearance: Normal appearance. She is not ill-appearing or diaphoretic. HENT: Mouth/Throat: Mouth: Mucous membranes are moist. Cardiovascular: Rate and Rhythm: Normal rate and regular rhythm. Pulmonary: Effort: Pulmonary effort is normal. No respiratory distress. Breath sounds: Normal breath sounds. No wheezing or rales. Comments: RA, SaO2 98%. Minimal crepitus palpated on anterior chest right side. Old chest tube site with occlusive dressing in place. Abdominal: General: There is no distension. Palpations: Abdomen is soft. Skin: General: Skin is warm and dry. Coloration: Skin is not jaundiced or pale. Neurological: General: No focal deficit present. Mental Status: She is alert and oriented to person, place, and time. Psychiatric: Mood and Affect: Mood normal. Lab Results Component Value Date NA 140 01/06/2025 K 4.0 01/06/2025 CL 103 01/06/2025 ANIONGAP 16 01/06/2025 BUN 20 01/06/2025 CREATININE 0.70 01/06/2025 CALCIUM 9.1 01/06/2025 MG 1.8 (L) 01/06/2025 Lab Results Component Value Date BILITOT 0.5 01/01/2025 ALKPHOS 65 01/01/2025 AST 21 01/01/2025 ALT 15 01/01/2025 PROT 6.6 01/01/2025 ALBUMIN 4.0 01/01/2025 Lab Results Component Value Date WBC 6.11 01/06/2025 RBC 4.18 01/06/2025 HGB 11.2 (L) 01/06/2025 HCT 35.7 (L) 01/06/2025 PLT 318 01/06/2025 NRBC 0.0 01/06/2025 XR chest 1 view Result Date: 01/07/2025 * Tiny right apical pneumothorax. * Stable chest and neck soft tissue emphysema. Electronically signed: Martin Aldridge. XR chest 1 view Result Date: 01/07/2025 Impression: * Right chest tube has been removed. Expiratory upright view shows some gas in the right chest wall. I cannot localize a pneumothorax on this examination. Mild bilateral lung haziness which may be due to the expiratory technique without focal consolidation. * Electronically signed: Emmanuel Ceballos. Assessment/Plan Principal Problem: Spontaneous pneumothorax Active Problems: Heart murmur, aortic History of substance dependence (CMS/HCC) Anxiety and depression Plan: S/P 3/3 chemical pleurodesis, right side. -No respiratory complaints. No supplemental oxygen needs. SaO2 remains >98% on room air. No fever or chills. Ambulating without difficulty. -Chest tube removed 01/06. Subcutaneous emphysema improving on AM CXR. -Provided CT Surgery office number if reoccurrence happens again, then will need to discuss surgical intervention. -Can follow-up with body maker she sees at home in [place]. -No follow-up needed with CT Surgery outpatient. -Clinically stable to discharge per CT Surgery team. To reach Cardiothoracic Surgery Inpatient from 8am-4pm call Ascom #[phone]. Only use [employer] chat for general questions. If unable (more content not included)... [facility] 01-07-2025 Note Attestation signed by Narinder Valverde MD at 01/08/2025 11:58 AM Patient was seen and examined with the resident on the same date of service, I discussed the findings and therapeutic plan with the resident/fellow, I agree with the documentation, assessment and plan as above except for any edits/updates below. Repeat CXR showed a small apical pneumothorax unchanged fro yesterday and improved subcutaneous emphysema Patient would like to be discharged today Will follow up as outpatient with repeat CXR in 2 weeks If chest pain or SOB increased, she was instructed ti report immediately to the ER Narinder Valverde MD Pulmonary and critical care Pulmonology Progress Patient : Juliette Hernández; 29 y.o. Location: 3179/3179-01 Attending: Gil Zhang MD Admit Date: 01/01/2025 Hospital Day: 6 Reason for Consult: Asked by Dr Gil Zhnag MD to see for primary spontaneous ptx. Subjective: Juliette Hernández is a 29 y.o. female with a past medical history depression and anxiety, history of substance abuse with history of overdose per EMR although patient denies, and alcohol use. Patient presented from [facility] as a direct admission due to spontaneous pneumothorax. Patient initially presented 2 weeks prior with right-sided chest pain and heaviness and was found to have pneumothorax at that time. Chest tube was placed at that time. Patient denied any falls or traumatic event. She denies any cigarette smoking or electronic cigarette use. She denies any marijuana use. Chest tube was eventually removed and patient was discharged home. Yesterday she presented to [facility] again with shortness of breath and chest pain/heaviness. She was found to have spontaneous pneumothorax. Chest tube was placed and she was transferred to [facility] for further management with possible VATS/pleurodesis. 01/05/25: S/p chemical pleurodesis. Doing much better today. Pain controlled 01/06/25: Pt feels better today repeat cxr pending. Improving subcutaneous emphysema. 01/07/25: s/p chest tube removal 01/06. Repeat CXR today. Doing well with no complaints. Assessment: Right sided primary spontaneous pneumothorax. No air leak. Chest tube to water seal Subcutaneous emphysema improving Pleural effusion b/l R>L Anxiety and depression History of substance abuse with overdose? Occasional marijuana use? Plan: Pain management Repeat CXR this morning. If no PTX okay for discharge from pulmonary standpoint Okay for discharge from a pulmonary standpoint. Repeat CXR in 4 weeks and pulmonary follow up in 4 weeks. Past History/Allergies?Social History: History reviewed. No pertinent past medical history. No Known Allergies Social History Socioeconomic History Marital status: Single Spouse name: Not on file Number of children: Not on file Years of education: Not on file Highest education level: Not on file Occupational History Not on file Tobacco Use Smoking status: Never Smokeless tobacco: Never Substance and Sexual Activity Alcohol use: Not Currently Drug use: Not Currently Types: Other, Opium, Cocaine, Crack cocaine Comment: Records indicate opiate abuse, crack, cocaine Sexual activity: Not on file Other Topics Concern Not on file Social History Narrative Not on file Social Determinants of Health Financial Resource Strain: Low Risk (01/01/2025) Overall Financial Resource Strain (CARDIA) Difficulty of Paying Living Expenses: Not hard at all Food Insecurity: No Food Insecurity (01/01/2025) Hunger Vital Sign Worried About Running Out of Food in the Last Year: Never true Ran Out of Food in the Last Year: Not on file Transportation Needs: No Transportation Needs (01/01/2025) Transportation Lack of Transportation (Medical): No Lack of Transportation (Non-Medical): Not on file Physical Activity: Not on file Stress: Not on file Social Connections: Not on file Intimate Partner Violence: Unknown (01/01/2025) Humiliation, Afraid, Rape, and Kick questionnaire Fear of Current or Ex-Partner: No Emotionally Abused: Not on file Physically Abused: Not on file Sexually Abused: Not on file Housing Stability: Low Risk (01/01/2025) Housing Stability Vital Sign Unable to Pay for Housing in the Last Year: No Number of Times Moved in the Last Year: Not on file Homeless in the Last Year: No Family History: No family history on file. Outpatient Medications: Medications Prior to Admission Medication Sig Dispense Refill Last Dose FLUoxetine (PROzac) 40 mg capsule Take 60 mg by mouth in the morning. Current Medications: Scheduled Meds: acetaminophen, 1,000 mg, oral, q8h ARIPiprazole, 5 mg, oral, Daily docusate sodium, 200 mg, oral, BID ferrous sulfate, 325 mg, oral, Daily with breakfast FLUoxetine, 60 mg, ora (more content not included)... [facility] 01-06-2025 Note Expand All Collapse All Cardiothoracic Surgery Progress Note 01/05/2025 Room: [address] [place] [address] Juliette Hernández is a 29 y.o. female with medical history significant for anxiety, depression, and polysubstance abuse with history of overdose. Medical history obtained from the patient and the medical records. She presenting as direct admission to [facility] early this morning, transferred from [facility]. Upon presentation to [facility], she complained of right sided chest pain that progressively worsened over the past 2 days. CXR revealed a moderate to large spontaneous pneumothorax and a small pleural catheter was placed. She denies recent injury or traumatic event. Denies URI or coughing episodes. Denies history of asthma, emphysema, or other lung disease. Denies smoking cigarettes or vaping. States that she smoke marijuana from time to time. She had a previous spontaneous pneumothorax 2 weeks ago and a chest tube was placed. She was transferred to [facility] for surgical evaluation for possible VATS with pleurodesis. 01/04 s/p chemical pleurodesis right side 01/05-Yesterday underwent chemical pleurodesis per pulmonary team bedside with doxycycline 500mg injected into chest tube. Patient experienced a lot of pain with the procedure and numbness and tingling of right arm. CXR was checked due to chest tube being clamped and showed PTX to be stable on right side. Symptoms subsided with increasing pain control medications. Seen bedside this morning, still endorsing chest tube site pain. Chest tube remains to continuous suction with no air leak. 01/06/25- Sitting up in bed without complaints. No acute events overnight. The chest tube remains clamped since yesterday. CT Chest was performed on yesterday, while chest tube was clamped. Patient denies shortness of breath. No fever or chills. Ambulating without difficulty. Tolerating regular diet. No nausea or vomiting. Physical Exam Constitutional: General: She is not in acute distress. Appearance: Normal appearance. She is not ill-appearing or diaphoretic. HENT: Mouth/Throat: Mouth: Mucous membranes are moist. Cardiovascular: Rate and Rhythm: Normal rate and regular rhythm. Pulmonary: Effort: Pulmonary effort is normal. No respiratory distress. Breath sounds: Normal breath sounds. No wheezing or rales. Comments: Right pleural chest tube in place and secure, with occlusive dressing. The chest tube is clamped. No redness, unusual tenderness, hematoma, or crepitus at the chest tube site. However, there is mild crepitus to the right neck, but no prominence. Chest tube drainage is dk greenish- appears to be residual medication, post doxy injection. Abdominal: General: There is no distension. Palpations: Abdomen is soft. Skin: General: Skin is warm and dry. Coloration: Skin is not jaundiced or pale. Neurological: General: No focal deficit present. Mental Status: She is alert and oriented to person, place, and time. Psychiatric: Mood and Affect: Mood normal. Lab Results Component Value Date NA 140 01/06/2025 K 4.0 01/06/2025 CL 103 01/06/2025 ANIONGAP 16 01/06/2025 BUN 20 01/06/2025 CREATININE 0.70 01/06/2025 CALCIUM 9.1 01/06/2025 MG 1.8 (L) 01/06/2025 Lab Results Component Value Date BILITOT 0.5 01/01/2025 ALKPHOS 65 01/01/2025 AST 21 01/01/2025 ALT 15 01/01/2025 PROT 6.6 01/01/2025 ALBUMIN 4.0 01/01/2025 Lab Results Component Value Date WBC 6.11 01/06/2025 RBC 4.18 01/06/2025 HGB 11.2 (L) 01/06/2025 HCT 35.7 (L) 01/06/2025 PLT 318 01/06/2025 NRBC 0.0 01/06/2025 === Imaging Orders, Last 24 Hours === XR CHEST 1 VIEW - Impression - * Stable right chest tube. * Mild right basilar opacities are unchanged. * Soft tissue air within the right chest wall, lower neck, and superior mediastinum is unchanged. * No definitive pneumothorax. Electronically signed: Salazar Sr MD. XR CHEST 1 VIEW - Impression - New extensive soft tissue emphysema within the neck, right chest, and extending into the superior mediastinum. Approved by:Josh Barton01/05/2025 7:24 PM. I, Salazar Sr MD,have reviewed the image(s) and agree with the findings in this report. Electronically signed: Salazar Sr MD. CT CHEST WO IV CONTRAST - Impression - Right chest tube pigtail coiled in the anterior upper right hemithorax. Small pneumothorax, moderate subcutaneous emphysema. Basilar atelectasis, pleural effusions greater on the right. Electronically signed: Keysha Casas. Assessment/Plan Principal Problem: Spontaneous pneumothorax Active Problems: Heart murmur, aortic History of substance dependence (CMS/HCC) Anxiety and depression Plan: -S/P chemical pleurodesis. No respiratory complaints. No supplemental oxygen needs. SaO2 peter (more content not included)... [facility] 01-06-2025 Note Hospital Medicine Daily Progress Note - 01/06/2025 8:37 AM; Room: 3179/3179- Admission: 01/01/2025 12:02 AM; Length of stay: 5 days THE HOSPITALIST TEAM PREFERS TO USE [employer] FOR NON-URGENT COMMUNICATION 7AM-7PM. IF I DO NOT RESPOND WITHIN 20 MINUTES OR URGENT MATTERS, PLEASE CALL THROUGH THE DISTANCE LEARNING UNIT LEADER. FROM 7PM-7AM, PLEASE PAGE [phone](COVR). Code Status: Full Code Barriers to Discharge: Chest tube removal tomorrow Expected Discharge Date: Tomorrow Discharge Destination: home Overview Patient is seen for evaluation and management of pneumothorax. Subjective Patient seen and examined. Yesterday worsening subcutaneous emphysema. Pain fluctuating. Physical Exam Visit Vitals BP 119/63 Pulse 70 Temp 36.9 ???C (98.4 ???F) (Temporal) Resp 13 Intake/Output Summary (Last 24 hours) at 01/06/2025 0837 Last data filed at 01/05/2025 1900 Gross per 24 hour Intake 360 ml Output 14 ml Net 346 ml Estimated body mass index is 30.38 kg/m??? as calculated from the following: Height as of this encounter: 1.676 m (5' 6 ). Weight as of this encounter: 85.4 kg (188 lb 3.2 oz). Constitutional: NAD, AOx3 Eyes: EOMI, normal conjunctiva Mouth: Moist, no lesions CV: RRR, normal S1-S2, no murmurs Resp: CTA, no crackles or wheezing, chest tube in place Abd: Soft, non-tender Extremities: No swelling, 2+ distal pulses Skin : Warm, crepitus noted on R neck Neuro: AOx3, no focal deficits Psych: Appropriate mood and affect Active Inpatient Problems Principal Problem: Spontaneous pneumothorax Active Problems: Heart murmur, aortic History of substance dependence ([facility] Anxiety and depression Assessment and Plan Spontaneous pneumothorax -recurrence vs continuance of original -No identifiable risk factors, CTS considering catamenial. Last snorting drug use over a year ago -Chest tube in place; currently to water seal with plan for possible removal tomorrow -Daily CXR -CTS following; Gen Surg consulted for chest tube placement -Pulm following, s/p pleurodesis 01/04/25 -Worsening subcutaneous emphysema, now easily palpable on exam. Pneumothorax remains small -Chest tube remaining in place H/o polysubstance abuse -On chart review, never IV use but did snort variety of substances -Noted somewhat recent sublocade in October, sublingual buprenorphine-naltrexone last month. States hasn't had this in months -Will treat acute pain now and de-escalate as soon as able considering her history Heart murmur, aortic -TTE obtained, largely unremarkable -This was noted on admission but I cannot appreciate this -Perhaps high output flow in setting of anemia Iron deficiency anemia -Mild in nature, ferritin 25, sat 14, Hgb 11.1 -Daily Fe PO VTE Prophylaxis: Heparin subcutaneous Scheduled Meds acetaminophen, 1,000 mg, oral, q8h ARIPiprazole, 5 mg, oral, Daily docusate sodium, 200 mg, oral, BID ferrous sulfate, 325 mg, oral, Daily with breakfast FLUoxetine, 60 mg, oral, Daily gabapentin, 300 mg, oral, TID heparin (porcine), 5,000 Units, subcutaneous, q8h ketorolac, 30 mg, intravenous, q6h polyethylene glycol, 17 g, oral, Daily sennosides-docusate sodium, 1 tablet, oral, Nightly Pertinent Investigations Hematology: Results from last 7 days Lab Units 01/06/25 0618 01/05/25 0456 WBC AUTO 10*3/uL 6.11 7.75 HEMOGLOBIN g/dL 11.2* 11.4* HEMATOCRIT % 35.7* 35.8* MCV fL 85.4 83.4 PLATELETS AUTO 10*3/uL 318 330 Chemistry: Results from last 7 days Lab Units 01/06/25 0618 01/05/25 0456 01/04/25 0634 SODIUM mmol/L 140 138 136 POTASSIUM mmol/L 4.0 3.6 4.6 CHLORIDE mmol/L 103 103 105 CO2 mmol/L 25 24 22 BUN mg/dL 20 14 14 CREATININE mg/dL 0.70 0.62 0.60 GLUCOSE mg/dL 91 71 85 MAGNESIUM mg/dL 1.8* 1.8* 1.9 CALCIUM mg/dL 9.1 9.3 8.9 Results from last 7 days Lab Units 01/01/25 0618 AST U/L 21 ALT U/L 15 ALK PHOS U/L 65 BILIRUBIN TOTAL mg/dL 0.5 Historical Values: (Includes values prior to this admission) Lab Results Component Value Date TSH 2.68 01/01/2025 Lab Results Component Value Date [id number] 299 01/01/2025 IRON 53 01/01/2025 TIBC 378 01/01/2025 Imaging XR chest 1 view Narrative: CHEST 1 VIEW HISTORY: Pneumothorax COMPARISON: 01/05/2025 Impression: * Stable right chest tube. * Mild right basilar opacities are unchanged. * Soft tissue air within the right chest wall, lower neck, and superior mediastinum is unchanged. * No definitive pneumothorax. Electronically signed: Salazar Sr MD. Discharge Planning Expected Discharge Disposition: Home or Self Care () Signed Gil Zhang MD [facility] 01/06/2025 8:37 AM [facility] 01-06-2025 Note Attestation signed by Narinder Valverde MD at 01/06/2025 11:40 AM Patient was seen and examined with the resident on the same date of service, I discussed the findings and therapeutic plan with the resident/fellow, I agree with the documentation, assessment and plan as above except for any edits/updates below. Chest tube to water seal CT chest showed small apical pneumothorax Increasing subcutaneous emphysema in CXR Keep chest tube to water seal Narinder Valverde MD Pulmonary and critical care Pulmonology Progress Patient : Juliette Hernández; 29 y.o. Location: 3179/3179-01 Attending: Gil Zhang MD Admit Date: 01/01/2025 Hospital Day: 5 Reason for Consult: Asked by Dr Gil Zhang MD to see for primary spontaneous ptx. Subjective: Juliette Hernández is a 29 y.o. female with a past medical history depression and anxiety, history of substance abuse with history of overdose per EMR although patient denies, and alcohol use. Patient presented from [facility] as a direct admission due to spontaneous pneumothorax. Patient initially presented 2 weeks prior with right-sided chest pain and heaviness and was found to have pneumothorax at that time. Chest tube was placed at that time. Patient denied any falls or traumatic event. She denies any cigarette smoking or electronic cigarette use. She denies any marijuana use. Chest tube was eventually removed and patient was discharged home. Yesterday she presented to [facility] again with shortness of breath and chest pain/heaviness. She was found to have spontaneous pneumothorax. Chest tube was placed and she was transferred to [facility] for further management with possible VATS/pleurodesis. 01/05/25: S/p chemical pleurodesis. Doing much better today. Pain controlled 01/06/25: Pt feels better today repeat cxr pending. Improving subcutaneous emphysema. Assessment: Right sided primary spontaneous pneumothorax. No air leak. Chest tube to water seal Subcutaneous emphysema improving Pleural effusion b/l R>L Anxiety and depression History of substance abuse with overdose? Occasional marijuana use? Plan: Pain management Chest tube to water seal Repeat CXR this morning. If no PTX remove chest tube Daily CXR Pulmonology will continue to follow. Past History/Allergies?Social History: History reviewed. No pertinent past medical history. No Known Allergies Social History Socioeconomic History Marital status: Single Spouse name: Not on file Number of children: Not on file Years of education: Not on file Highest education level: Not on file Occupational History Not on file Tobacco Use Smoking status: Never Smokeless tobacco: Never Substance and Sexual Activity Alcohol use: Not Currently Drug use: Not Currently Types: Other, Opium, Cocaine, Crack cocaine Comment: Records indicate opiate abuse, crack, cocaine Sexual activity: Not on file Other Topics Concern Not on file Social History Narrative Not on file Social Determinants of Health Financial Resource Strain: Low Risk (01/01/2025) Overall Financial Resource Strain (CARDIA) Difficulty of Paying Living Expenses: Not hard at all Food Insecurity: No Food Insecurity (01/01/2025) Hunger Vital Sign Worried About Running Out of Food in the Last Year: Never true Ran Out of Food in the Last Year: Not on file Transportation Needs: No Transportation Needs (01/01/2025) Transportation Lack of Transportation (Medical): No Lack of Transportation (Non-Medical): Not on file Physical Activity: Not on file Stress: Not on file Social Connections: Not on file Intimate Partner Violence: Unknown (01/01/2025) Humiliation, Afraid, Rape, and Kick questionnaire Fear of Current or Ex-Partner: No Emotionally Abused: Not on file Physically Abused: Not on file Sexually Abused: Not on file Housing Stability: Low Risk (01/01/2025) Housing Stability Vital Sign Unable to Pay for Housing in the Last Year: No Number of Times Moved in the Last Year: Not on file Homeless in the Last Year: No Family History: No family history on file. Outpatient Medications: Medications Prior to Admission Medication Sig Dispense Refill Last Dose FLUoxetine (PROzac) 40 mg capsule Take 60 mg by mouth in the morning. Current Medications: Scheduled Meds: acetaminophen, 1,000 mg, oral, q8h ARIPiprazole, 5 mg, oral, Daily docusate sodium, 200 mg, oral, BID ferrous sulfate, 325 mg, oral, Daily with breakfast FLUoxetine, 60 mg, oral, Daily gabapentin, 300 mg, oral, TID heparin (porcine), 5,000 Units, subcutaneous, q8h ketorolac, 30 mg, intravenous, q6h polyethylene glycol, 17 g, oral, Daily sennosides-docusate sodium, 1 tablet, oral, Nightly Continuous Infusions: PRN Meds: PRN medications: HYDROmorphone, naloxone (more content not included)... [facility] 01-05-2025 Note Attestation signed by Narinder Valverde MD at 01/06/2025 11:38 AM Patient was seen and examined with the resident on the same date of service, I discussed the findings and therapeutic plan with the resident/fellow, I agree with the documentation, assessment and plan as above except for any edits/updates below. CXR showed small left apical pneumothorax Will do CT chest before removal of chest tube Narinder Valverde MD Pulmonary and critical care Pulmonology Progress Patient : Juliette Hernández; 29 y.o. Location: 3179/3179-01 Attending: Gil Zhang MD Admit Date: 01/01/2025 Hospital Day: 4 Reason for Consult: Asked by Dr Gil Zhang MD to see for primary spontaneous ptx. Subjective: Juliette Hernández is a 29 y.o. female with a past medical history depression and anxiety, history of substance abuse with history of overdose per EMR although patient denies, and alcohol use. Patient presented from [facility] as a direct admission due to spontaneous pneumothorax. Patient initially presented 2 weeks prior with right-sided chest pain and heaviness and was found to have pneumothorax at that time. Chest tube was placed at that time. Patient denied any falls or traumatic event. She denies any cigarette smoking or electronic cigarette use. She denies any marijuana use. Chest tube was eventually removed and patient was discharged home. Yesterday she presented to [facility] again with shortness of breath and chest pain/heaviness. She was found to have spontaneous pneumothorax. Chest tube was placed and she was transferred to [facility] for further management with possible VATS/pleurodesis. 01/05/25: S/p chemical pleurodesis. Doing much better today. Pain controlled Assessment: Right sided primary spontaneous pneumothorax. No air leak. Chest tube to suction upon examination. Subcutaneous emphysema Pleural effusion b/l R>L Anxiety and depression History of substance abuse with overdose? Occasional marijuana use? Plan: Pain management Chest tube to water seal CT chest today If CT chest does not show PTX will remove chest tube tomorrow Daily CXR Pulmonology will continue to follow. Past History/Allergies?Social History: History reviewed. No pertinent past medical history. No Known Allergies Social History Socioeconomic History Marital status: Single Spouse name: Not on file Number of children: Not on file Years of education: Not on file Highest education level: Not on file Occupational History Not on file Tobacco Use Smoking status: Never Smokeless tobacco: Never Substance and Sexual Activity Alcohol use: Not Currently Drug use: Not Currently Types: Other, Opium, Cocaine, Crack cocaine Comment: Records indicate opiate abuse, crack, cocaine Sexual activity: Not on file Other Topics Concern Not on file Social History Narrative Not on file Social Determinants of Health Financial Resource Strain: Low Risk (01/01/2025) Overall Financial Resource Strain (CARDIA) Difficulty of Paying Living Expenses: Not hard at all Food Insecurity: No Food Insecurity (01/01/2025) Hunger Vital Sign Worried About Running Out of Food in the Last Year: Never true Ran Out of Food in the Last Year: Not on file Transportation Needs: No Transportation Needs (01/01/2025) Transportation Lack of Transportation (Medical): No Lack of Transportation (Non-Medical): Not on file Physical Activity: Not on file Stress: Not on file Social Connections: Not on file Intimate Partner Violence: Unknown (01/01/2025) Humiliation, Afraid, Rape, and Kick questionnaire Fear of Current or Ex-Partner: No Emotionally Abused: Not on file Physically Abused: Not on file Sexually Abused: Not on file Housing Stability: Low Risk (01/01/2025) Housing Stability Vital Sign Unable to Pay for Housing in the Last Year: No Number of Times Moved in the Last Year: Not on file Homeless in the Last Year: No Family History: No family history on file. Outpatient Medications: Medications Prior to Admission Medication Sig Dispense Refill Last Dose FLUoxetine (PROzac) 40 mg capsule Take 60 mg by mouth in the morning. Current Medications: Scheduled Meds: acetaminophen, 1,000 mg, oral, q8h ARIPiprazole, 5 mg, oral, Daily docusate sodium, 200 mg, oral, BID ferrous sulfate, 325 mg, oral, Daily with breakfast FLUoxetine, 60 mg, oral, Daily gabapentin, 300 mg, oral, TID heparin (porcine), 5,000 Units, subcutaneous, q8h ketorolac, 30 mg, intravenous, q6h polyethylene glycol, 17 g, oral, Daily sennosides-docusate sodium, 1 tablet, oral, Nightly Continuous Infusions: PRN Meds: PRN medications: morphine, naloxone OR naloxone OR naloxone, oxyCODONE, oxyCODONE, Insert peripheral IV AND Saline lock IV AND sodium (more content not included)... [facility] 01-05-2025 Note Hospital Medicine Daily Progress Note - 01/05/2025 7:47 AM; Room: [address] [place] [address] Admission: 01/01/2025 12:02 AM; Length of stay: 4 days THE HOSPITALIST TEAM PREFERS TO USE [employer] FOR NON-URGENT COMMUNICATION 7AM-7PM. IF I DO NOT RESPOND WITHIN 20 MINUTES OR URGENT MATTERS, PLEASE CALL THROUGH THE DISTANCE LEARNING UNIT LEADER. FROM 7PM-7AM, PLEASE PAGE [phone](COVR). Code Status: Full Code Barriers to Discharge: Chest tube removal tomorrow Expected Discharge Date: Tomorrow Discharge Destination: home Overview Patient is seen for evaluation and management of pneumothorax. Subjective Patient seen and examined. Had unpleasant time with pleurodesis yesterday. No acute complaints today. Physical Exam Visit Vitals BP 112/70 Pulse 62 Temp 37 ???C (98.6 ???F) (Temporal) Resp 13 Intake/Output Summary (Last 24 hours) at 01/05/2025 0747 Last data filed at 01/05/2025 0631 Gross per 24 hour Intake 480 ml Output 13 ml Net 467 ml Estimated body mass index is 28.47 kg/m??? as calculated from the following: Height as of this encounter: 1.676 m (5' 6 ). Weight as of this encounter: 80 kg (176 lb 6.4 oz). Constitutional: NAD, AOx3 Eyes: EOMI, normal conjunctiva Mouth: Moist, no lesions CV: RRR, normal S1-S2, no murmurs Resp: CTA, no crackles or wheezing, chest tube in place Abd: Soft, non-tender Extremities: No swelling, 2+ distal pulses Skin : Warm, dry Neuro: AOx3, no focal deficits Psych: Appropriate mood and affect Overall unchanged Active Inpatient Problems Principal Problem: Spontaneous pneumothorax Active Problems: Heart murmur, aortic History of substance dependence (CMS/HCC) Anxiety and depression Assessment and Plan Spontaneous pneumothorax -recurrence vs continuance of original -No identifiable risk factors, CTS considering catamenial. Last snorting drug use over a year ago -Chest tube in place; currently to water seal with plan for possible removal tomorrow -Daily CXR -CTS following; Gen Surg consulted for chest tube placement -Pulm following, s/p pleurodesis 01/04/25 -Planning for chest tube removal tomorrow per CT results H/o polysubstance abuse -On chart review, never IV use but did snort variety of substances -Noted somewhat recent sublocade in October, sublingual buprenorphine-naltrexone last month. States hasn't had this in months -Will treat acute pain now and de-escalate as soon as able considering her history Heart murmur, aortic -TTE obtained, largely unremarkable -This was noted on admission but I cannot appreciate this -Perhaps high output flow in setting of anemia Iron deficiency anemia -Mild in nature, ferritin 25, sat 14, Hgb 11.1 -Daily Fe PO VTE Prophylaxis: Heparin subcutaneous Scheduled Meds acetaminophen, 1,000 mg, oral, q8h ARIPiprazole, 5 mg, oral, Daily docusate sodium, 200 mg, oral, BID ferrous sulfate, 325 mg, oral, Daily with breakfast FLUoxetine, 60 mg, oral, Daily gabapentin, 300 mg, oral, TID heparin (porcine), 5,000 Units, subcutaneous, q8h ketorolac, 30 mg, intravenous, q6h polyethylene glycol, 17 g, oral, Daily sennosides-docusate sodium, 1 tablet, oral, Nightly Pertinent Investigations Hematology: Results from last 7 days Lab Units 01/04/25 0634 01/01/25 0618 WBC AUTO 10*3/uL 4.82 5.08 HEMOGLOBIN g/dL 12.0 11.1* HEMATOCRIT % 37.5 34.5* MCV fL 84.3 83.1 PLATELETS AUTO 10*3/uL 304 290 Chemistry: Results from last 7 days Lab Units 01/04/25 0634 01/01/25 0618 SODIUM mmol/L 136 139 POTASSIUM mmol/L 4.6 4.1 CHLORIDE mmol/L 105 107 CO2 mmol/L 22 27 BUN mg/dL 14 19 CREATININE mg/dL 0.60 0.73 GLUCOSE mg/dL 85 99 MAGNESIUM mg/dL 1.9 -- CALCIUM mg/dL 8.9 8.8 Results from last 7 days Lab Units 01/01/25 0618 AST U/L 21 ALT U/L 15 ALK PHOS U/L 65 BILIRUBIN TOTAL mg/dL 0.5 Historical Values: (Includes values prior to this admission) Lab Results Component Value Date TSH 2.68 01/01/2025 Lab Results Component Value Date [id number] 299 01/01/2025 IRON 53 01/01/2025 TIBC 378 01/01/2025 Imaging XR chest 1 view Narrative: XR CHEST 1 VIEW 01/05/2025 6:07 AM CLINICAL INDICATIONS: Chest tube COMPARISON: 01/04/2025 FINDINGS: Pigtail chest tube right upper lung unchanged in size. Decreasing tiny 2 mm apical pneumothorax. Stable cardiac silhouette and pulmonary vessels. Right infrahilar atelectasis. Impression: Decreasing tiny residual right apical pneumothorax. Electronically signed: Keysha Casas. Discharge Planning Expected Discharge Disposition: Home or Self Care () Signed Gil Zhang MD [facility] 01/05/2025 7:47 AM [facility] 01-05-2025 Note Cardiothoracic Surge ry Progress Note 01/05/2025 Room: 3179/3179-01 [facility] Juliette Hernández is a 29 y.o. female with medical history significant for anxiety, depression, and polysubstance abuse with history of overdose. Medical history obtained from the patient and the medical records. She presenting as direct admission to [facility] early this morning, transferred from [facility]. Upon presentation to [facility], she complained of right sided chest pain that progressively worsened over the past 2 days. CXR revealed a moderate to large spontaneous pneumothorax and a small pleural catheter was placed. She denies recent injury or traumatic event. Denies URI or coughing episodes. Denies history of asthma, emphysema, or other lung disease. Denies smoking cigarettes or vaping. States that she smoke marijuana from time to time. She had a previous spontaneous pneumothorax 2 weeks ago and a chest tube was placed. She was transferred to [facility] for surgical evaluation for possible VATS with pleurodesis. 01/04 s/p chemical pleurodesis right side POD #1-Yesterday underwent chemical pleurodesis per pulmonary team bedside with doxycycline 500mg injected into chest tube. Patient experienced a lot of pain with the procedure and numbness and tingling of right arm. CXR was checked due to chest tube being clamped and showed PTX to be stable on right side. Symptoms subsided with increasing pain control medications. Seen bedside this morning, still endorsing chest tube site pain. Chest tube remains to continuous suction with no air leak. Objective Patient Vitals for the past 24 hrs: BP Temp Temp src Pulse Resp SpO2 Weight 01/05/25 0621 -- -- -- -- -- -- 80 kg (176 lb 6.4 oz) 01/05/25 0400 112/70 37 ???C (98.6 ???F) Temporal 62 13 100 % -- 01/04/25 2000 125/76 37.1 ???C (98.8 ???F) Temporal 63 13 99 % -- 01/04/25 1815 138/86 -- -- 81 17 100 % -- 01/04/25 1800 137/84 -- -- 68 15 100 % -- 01/04/25 1745 137/83 -- -- 83 24 100 % -- 01/04/25 1730 140/86 -- -- 61 19 100 % -- 01/04/25 1715 126/80 -- -- 63 18 100 % -- 01/04/25 1710 145/73 -- -- 66 19 99 % -- 01/04/25 1700 140/57 -- -- 63 19 100 % -- 01/04/25 1651 (!) 163/97 -- -- 54 -- 100 % -- 01/04/25 1210 124/65 -- -- 66 10 93 % -- 01/04/25 0750 125/74 36.6 ???C (97.9 ???F) Temporal 67 11 96 % -- Physical Exam Vitals reviewed. Constitutional: General: She is not in acute distress. Appearance: Normal appearance. She is normal weight. She is not ill-appearing. HENT: Head: Normocephalic and atraumatic. Mouth/Throat: Mouth: Mucous membranes are moist. Pharynx: Oropharynx is clear. Eyes: Extraocular Movements: Extraocular movements intact. Conjunctiva/sclera: Conjunctivae normal. Pupils: Pupils are equal, round, and reactive to light. Neck: Vascular: No carotid bruit. Cardiovascular: Rate and Rhythm: Normal rate and regular rhythm. Pulses: Normal pulses. Heart sounds: Normal heart sounds. No murmur heard. Pulmonary: Effort: Pulmonary effort is normal. No respiratory distress. Breath sounds: Normal breath sounds. Comments: Right anterior chest tube. -20mmHG continuous suction. No airleak. Occlusive dressing. Abdominal: General: Abdomen is flat. There is no distension. Palpations: Abdomen is soft. Musculoskeletal: General: Normal range of motion. Cervical back: Normal range of motion. Right lower leg: No edema. Left lower leg: No edema. Skin: General: Skin is warm and dry. Capillary Refill: Capillary refill takes less than 2 seconds. Coloration: Skin is not pale. Neurological: General: No focal deficit present. Mental Status: She is alert and oriented to person, place, and time. Mental status is at baseline. Psychiatric: Mood and Affect: Mood normal. Behavior: Behavior normal. Thought Content: Thought content normal. Judgment: Judgment normal. Lab Results Component Value Date NA 136 01/04/2025 K 4.6 01/04/2025 CL 105 01/04/2025 ANIONGAP 14 01/04/2025 BUN 14 01/04/2025 CREATININE 0.60 01/04/2025 CALCIUM 8.9 01/04/2025 MG 1.9 01/04/2025 Lab Results Component Value Date BILITOT 0.5 01/01/2025 ALKPHOS 65 01/01/2025 AST 21 01/01/2025 ALT 15 01/01/2025 PROT 6.6 01/01/2025 ALBUMIN 4.0 01/01/2025 Lab Results Component Value Date WBC 4.82 01/04/2025 RBC 4.45 01/04/2025 HGB 12.0 01/04/2025 HCT 37.5 01/04/2025 PLT 304 01/04/2025 NRBC 0.0 01/04/2025 XR chest 1 view Result Date: 01/04/2025 Impression: Small right apical pneumothorax with right chest tube in place. Right infrahilar atelectasis versus pneumonia. Electronically signed: Guy Corea. XR chest 1 view Result Date: 01/04/2025 * Small right apical pneumothorax with stable position of pigtail chest tube. Electronically signed: Martin Aldridge. XR chest 1 view Result Date: 01/04/2025 Appearance the chest is stable. The drain position is stable. There is no concerning pneumothorax. No acute process Electron (more content not included)... [facility] 01-04-2025 Note Attestation signed by Narinder Valverde MD at 01/05/2025 10:05 AM I was present and supervised the procedure Chemical pleurodesis Procedure diagnosis/indication: Recurrent spontaneous pneumothorax Patient was in supine position. Doxycycline 500mg injected into the chest tube. Chest tube will be clamped for 2 hours hour then the chest tube can be unclamped and left to water seal. Patient experienced severe pain. Her pain was treated with fentanyl, morphine, Toradol and dilaudid. Complication: Pain Leodan Hardwick MD Pulmonary Disease & Critical Care Medicine [facility] 01-04-2025 Note Cardiothoracic Surge ry Progress Note 01/04/2025 Room: [facility]/3179- Subjective Juliette Hernández is a 29 y.o. female with medical history significant for anxiety, depression, and polysubstance abuse with history of overdose. Medical history obtained from the patient and the medical records. She presenting as direct admission to [facility] early this morning, transferred from [facility]. Upon presentation to [facility], she complained of right sided chest pain that progressively worsened over the past 2 days. CXR revealed a moderate to large spontaneous pneumothorax and a small pleural catheter was placed. She denies recent injury or traumatic event. Denies URI or coughing episodes. Denies history of asthma, emphysema, or other lung disease. Denies smoking cigarettes or vaping. States that she smoke marijuana from time to time. She had a previous spontaneous pneumothorax 2 weeks ago and a chest tube was placed. She was transferred to [facility] for surgical evaluation for possible VATS with pleurodesis. Interval: No issues overnight. Chest tube remains to continuous suction, no airleak. Pain well-controlled. Vital signs stable. Objective Patient Vitals for the past 24 hrs: BP Temp Temp src Pulse Resp SpO2 Weight 01/04/25 0750 125/74 36.6 ???C (97.9 ???F) Temporal 67 11 96 % -- 01/04/25 0500 -- -- -- -- -- -- 80.9 kg (178 lb 5.6 oz) 01/04/25 0403 112/58 36.8 ???C (98.2 ???F) Temporal 62 (!) 9 98 % -- 01/04/25 0038 -- -- -- 58 12 100 % -- 01/04/25 0037 108/53 36.8 ???C (98.2 ???F) Temporal 61 12 (!) 89 % -- 01/03/25 1954 106/63 36.7 ???C (98.1 ???F) Temporal 72 12 98 % -- 01/03/25 1708 101/60 36.5 ???C (97.7 ???F) Temporal 67 (!) 9 100 % -- 01/03/25 1225 124/72 36.4 ???C (97.5 ???F) Temporal 84 18 100 % -- Physical Exam Vitals reviewed. Constitutional: General: She is not in acute distress. Appearance: Normal appearance. She is normal weight. She is not ill-appearing. HENT: Head: Normocephalic and atraumatic. Mouth/Throat: Mouth: Mucous membranes are moist. Pharynx: Oropharynx is clear. Eyes: Extraocular Movements: Extraocular movements intact. Conjunctiva/sclera: Conjunctivae normal. Pupils: Pupils are equal, round, and reactive to light. Neck: Vascular: No carotid bruit. Cardiovascular: Rate and Rhythm: Normal rate and regular rhythm. Pulses: Normal pulses. Heart sounds: Normal heart sounds. No murmur heard. Pulmonary: Effort: Pulmonary effort is normal. No respiratory distress. Breath sounds: Normal breath sounds. Comments: Right anterior chest tube. -20mmHG continuous suction. No airleak. 0 output in 24hrs Occlusive dressing. Abdominal: General: Abdomen is flat. There is no distension. Palpations: Abdomen is soft. Musculoskeletal: General: Normal range of motion. Cervical back: Normal range of motion. Right lower leg: No edema. Left lower leg: No edema. Skin: General: Skin is warm and dry. Capillary Refill: Capillary refill takes less than 2 seconds. Coloration: Skin is not pale. Neurological: General: No focal deficit present. Mental Status: She is alert and oriented to person, place, and time. Mental status is at baseline. Psychiatric: Mood and Affect: Mood normal. Behavior: Behavior normal. Thought Content: Thought content normal. Judgment: Judgment normal. Lab Results Component Value Date NA 136 01/04/2025 K 4.6 01/04/2025 CL 105 01/04/2025 ANIONGAP 14 01/04/2025 BUN 14 01/04/2025 CREATININE 0.60 01/04/2025 CALCIUM 8.9 01/04/2025 MG 1.9 01/04/2025 Lab Results Component Value Date BILITOT 0.5 01/01/2025 ALKPHOS 65 01/01/2025 AST 21 01/01/2025 ALT 15 01/01/2025 PROT 6.6 01/01/2025 ALBUMIN 4.0 01/01/2025 Lab Results Component Value Date WBC 4.82 01/04/2025 RBC 4.45 01/04/2025 HGB 12.0 01/04/2025 HCT 37.5 01/04/2025 PLT 304 01/04/2025 NRBC 0.0 01/04/2025 XR chest 1 view Result Date: 01/04/2025 Appearance the chest is stable. The drain position is stable. There is no concerning pneumothorax. No acute process Electronically signed: Haritha Ivan. Assessment/Plan Principal Problem: Spontaneous pneumothorax Active Problems: Heart murmur, aortic History of substance dependence (CMS/HCC) Anxiety and depression Plan: -Place chest tube to waterseal. Repeat x-ray at noon. If remains stable will keep to waterseal overnight clamp chest tube in a.m. and possibly discontinue tomorrow. -No supplemental oxygen needs. Continue to monitor SaO2. -BM Regimen while on pain medication. -Will consult pulmonary for assessment and recommendations for pleurodesis through chest tube. -Medical management per primary team. -CT Surgery will continue to follow. To reach Cardiothoracic Surgery Inpatient from 8am-4pm call Ascom #[phone]. Only use [employer] chat for general questions. If unable to reach Ascom Number call hospital precision machine operator for Cardiothoracic Provider Restaurant Hostess. Cardiothoracic Surgery outp (more content not included)... [facility] 01-04-2025 Note Hospital Medicine Daily Progress Note - 01/04/2025 7:10 AM; Room: [address] [place] [address] Admission: 01/01/2025 12:02 AM; Length of stay: 3 days THE HOSPITALIST TEAM PREFERS TO USE [employer] CHAT FOR NON-URGENT COMMUNICATION 7AM-7PM. IF I DO NOT RESPOND WITHIN 20 MINUTES OR URGENT MATTERS, PLEASE CALL THROUGH THE DISTANCE LEARNING UNIT LEADER. FROM 7PM-7AM, PLEASE PAGE [phone](COVR). Code Status: Full Code Barriers to Discharge: Pleurodesis Expected Discharge Date: 2-3 days Discharge Destination: home Overview Patient is seen for evaluation and management of pneumothorax. Subjective Patient seen and examined. Has some throat pain today, possibly after taking a pill. Tube to seal, pending removal tomorrow. Physical Exam Visit Vitals BP 112/58 Pulse 62 Temp 36.8 ???C (98.2 ???F) (Temporal) Resp (!) 9 Intake/Output Summary (Last 24 hours) at 01/04/2025 0710 Last data filed at 01/03/2025 1825 Gross per 24 hour Intake -- Output 0 ml Net 0 ml Estimated body mass index is 28.79 kg/m??? as calculated from the following: Height as of this encounter: 1.676 m (5' 6 ). Weight as of this encounter: 80.9 kg (178 lb 5.6 oz). Constitutional: NAD, AOx3 Eyes: EOMI, normal conjunctiva Mouth: Moist, no lesions CV: RRR, normal S1-S2, no murmurs Resp: CTA, no crackles or wheezing, chest tube in place Abd: Soft, non-tender Extremities: No swelling, 2+ distal pulses Skin : Warm, dry Neuro: AOx3, no focal deficits Psych: Appropriate mood and affect Active Inpatient Problems Principal Problem: Spontaneous pneumothorax Active Problems: Heart murmur, aortic History of substance dependence ([facility]) Anxiety and depression Assessment and Plan Spontaneous pneumothorax -recurrence vs continuance of original -No identifiable risk factors, CTS considering catamenial. Last snorting drug use over a year ago -Chest tube in place; currently to water seal with plan for possible removal tomorrow -Daily CXR -CTS following; Gen Surg consulted for chest tube placement -Pulm following, planning for pleurodesis H/o polysubstance abuse -On chart review, never IV use but did snort variety of substances -Noted somewhat recent sublocade in October, sublingual buprenorphine-naltrexone last month. States hasn't had this in months -Will treat acute pain now and de-escalate as soon as able considering her history Heart murmur, aortic -TTE obtained, largely unremarkable -This was noted on admission but I cannot appreciate this -Perhaps high output flow in setting of anemia Iron deficiency anemia -Mild in nature, ferritin 25, sat 14, Hgb 11.1 -Daily Fe PO VTE Prophylaxis: Heparin subcutaneous Scheduled Meds acetaminophen, 1,000 mg, oral, q8h ARIPiprazole, 5 mg, oral, Daily docusate sodium, 200 mg, oral, BID ferrous sulfate, 325 mg, oral, Daily with breakfast FLUoxetine, 60 mg, oral, Daily gabapentin, 300 mg, oral, TID heparin (porcine), 5,000 Units, subcutaneous, q8h polyethylene glycol, 17 g, oral, Daily sennosides-docusate sodium, 1 tablet, oral, Nightly Pertinent Investigations Hematology: Results from last 7 days Lab Units 01/01/25 0618 WBC AUTO 10*3/uL 5.08 HEMOGLOBIN g/dL 11.1* HEMATOCRIT % 34.5* MCV fL 83.1 PLATELETS AUTO 10*3/uL 290 Chemistry: Results from last 7 days Lab Units 01/01/25 0618 SODIUM mmol/L 139 POTASSIUM mmol/L 4.1 CHLORIDE mmol/L 107 CO2 mmol/L 27 BUN mg/dL 19 CREATININE mg/dL 0.73 GLUCOSE mg/dL 99 CALCIUM mg/dL 8.8 Results from last 7 days Lab Units 01/01/25 0618 AST U/L 21 ALT U/L 15 ALK PHOS U/L 65 BILIRUBIN TOTAL mg/dL 0.5 Historical Values: (Includes values prior to this admission) Lab Results Component Value Date TSH 2.68 01/01/2025 Lab Results Component Value Date [id number] 299 01/01/2025 IRON 53 01/01/2025 TIBC 378 01/01/2025 Imaging XR chest 1 view Narrative: XR CHEST 1 VIEW 01/03/2025 6:54 AM CLINICAL INDICATIONS: Check chest tube. COMPARISON: 01/02/2025 FINDINGS: Right pigtail drain remains in place Impression: No concerning residual pneumothorax is appreciated. No new airspace disease or infiltrate is noted. No acute process. Electronically signed: Haritha Ivan. Discharge Planning Signed Gil Zhang MD [facility] 01/04/2025 7:10 AM [facility] 01-03-2025 Note Hospital Medicine Daily Progress Note - 01/03/2025 7:10 AM; Room: [address] [place] [address] Admission: 01/01/2025 12:02 AM; Length of stay: 2 days THE HOSPITALIST TEAM PREFERS TO USE [employer] FOR NON-URGENT COMMUNICATION 7AM-7PM. IF I DO NOT RESPOND WITHIN 20 MINUTES OR URGENT MATTERS, PLEASE CALL THROUGH THE DISTANCE LEARNING UNIT LEADER. FROM 7PM-7AM, PLEASE PAGE [phone](COVR). Code Status: Full Code Barriers to Discharge: CXR, chest tube planning Expected Discharge Date: 2-3 days Discharge Destination: home Overview Patient is seen for evaluation and management of pneumothorax. Subjective Patient seen and examined. Patient doing better and states her pain feel well controlled. Chest tube to suction Physical Exam Visit Vitals BP 109/57 Pulse 66 Temp 36.5 ???C (97.7 ???F) Resp 11 Intake/Output Summary (Last 24 hours) at 01/03/2025 0710 Last data filed at 01/03/2025 0600 Gross per 24 hour Intake 300 ml Output 15 ml Net 285 ml Estimated body mass index is 29.18 kg/m??? as calculated from the following: Height as of this encounter: 1.676 m (5' 6 ). Weight as of this encounter: 82 kg (180 lb 12.4 oz). Constitutional: NAD, AOx3 Eyes: EOMI, normal conjunctiva Mouth: Moist, no lesions CV: RRR, normal S1-S2, no murmurs Resp: CTA, no crackles or wheezing, chest tube in place Abd: Soft, non-tender Extremities: No swelling, 2+ distal pulses Skin : Warm, dry Neuro: AOx3, no focal deficits Psych: Appropriate mood and affect Active Inpatient Problems Principal Problem: Spontaneous pneumothorax Active Problems: Heart murmur, aortic History of substance dependence ([facility]) Anxiety and depression Assessment and Plan Spontaneous pneumothorax -recurrence vs continuance of original -No identifiable risk factors, CTS considering catamenial. Last snorting drug use over a year ago -Chest tube in place -Daily CXR -CTS following; Gen Surg consulted for chest tube placement H/o polysubstance abuse -On chart review, never IV use but did snort variety of substances -Noted somewhat recent sublocade in October, sublingual buprenorphine-naltrexone last month. States hasn't had this in months -Will treat acute pain now and de-escalate as soon as able considering her history -Will consult Pharmacy and Pain Management to ensure optimal pain control with recent buprenorphine use Heart murmur, aortic -TTE obtained, largely unremarkable -This was noted on admission but I cannot appreciate this -Perhaps high output flow in setting of anemia Iron deficiency anemia -Mild in nature, ferritin 25, sat 14, Hgb 11.1 -Daily Fe PO VTE Prophylaxis: Heparin subcutaneous Scheduled Meds acetaminophen, 1,000 mg, oral, q8h ARIPiprazole, 5 mg, oral, Daily ferrous sulfate, 325 mg, oral, Daily with breakfast FLUoxetine, 60 mg, oral, Daily gabapentin, 300 mg, oral, TID heparin (porcine), 5,000 Units, subcutaneous, q8h polyethylene glycol, 17 g, oral, Daily sennosides-docusate sodium, 1 tablet, oral, Nightly Pertinent Investigations Hematology: Results from last 7 days Lab Units 01/01/25 0618 WBC AUTO 10*3/uL 5.08 HEMOGLOBIN g/dL 11.1* HEMATOCRIT % 34.5* MCV fL 83.1 PLATELETS AUTO 10*3/uL 290 Chemistry: Results from last 7 days Lab Units 01/01/25 0618 SODIUM mmol/L 139 POTASSIUM mmol/L 4.1 CHLORIDE mmol/L 107 CO2 mmol/L 27 BUN mg/dL 19 CREATININE mg/dL 0.73 GLUCOSE mg/dL 99 CALCIUM mg/dL 8.8 Results from last 7 days Lab Units 01/01/25 0618 AST U/L 21 ALT U/L 15 ALK PHOS U/L 65 BILIRUBIN TOTAL mg/dL 0.5 Historical Values: (Includes values prior to this admission) Lab Results Component Value Date TSH 2.68 01/01/2025 Lab Results Component Value Date [id number] 299 01/01/2025 IRON 53 01/01/2025 TIBC 378 01/01/2025 Imaging XR chest 1 view Narrative: XR CHEST 1 VIEW CLINICAL INFORMATION: post chest tube insertion COMPARISON: 01/02/25. Impression: * New pigtail catheter noted with significant improvement in previously described pneumothorax, now measuring about 3 mm. Basilar atelectasis. Mild subcutaneous emphysema. Stable heart size. Electronically signed: Checo Amaya MD. XR chest 1 view Narrative: XR CHEST 1 VIEW CLINICAL INFORMATION: Assess right sided PTX COMPARISON: 01/02/25. Impression: * Right chest tube, with tip just at the pleural surface. Correlate for intrathoracic position. * Right pneumothorax has re-enlarged to about 4.4 cm. No progressive mediastinal shift. * Basilar atelectasis. * Stable heart size. Electronically signed: Checo Amaya MD. XR chest 1 view Narrative: Single view chest History: Pneumothorax, follow-up Comparison: 12/24/2024 Findings: Single portable view of the chest. Small to moderate right pneumothorax measuring 4.2 to 4.3 cm. Right lung volume loss and partial collapse. Impression: Impression: [id number] right pneumothorax with right lung volume loss with partial (more content not included)... [facility] 01-03-2025 Note Cardiothoracic Surge ry Progress Note 01/03/2025 Room: [facility]/3179-01 Subjective Juliette Hernández is a 29 y.o. female with medical history significant for anxiety, depression, and polysubstance abuse with history of overdose. Medical history obtained from the patient and the medical records. She presenting as direct admission to [facility] early this morning, transferred from [facility]. Upon presentation to [facility], she complained of right sided chest pain that progressively worsened over the past 2 days. CXR revealed a moderate to large spontaneous pneumothorax and a small pleural catheter was placed. She denies recent injury or traumatic event. Denies URI or coughing episodes. Denies history of asthma, emphysema, or other lung disease. Denies smoking cigarettes or vaping. States that she smoke marijuana from time to time. She had a previous spontaneous pneumothorax 2 weeks ago and a chest tube was placed. She was transferred to [facility] for surgical evaluation for possible VATS with pleurodesis. Interval: Chest tube removed yesterday and new right sided Pigtail chest tube placed due increasing PTX. Repeat CXR showed almost completely resolved PTX. No acute issues overnight. Seen bedside with no new complaints, pain well controlled. Passing gas with no BM. Chest tube remains to suction with no airleak. Objective Patient Vitals for the past 24 hrs: BP Temp Temp src Pulse Resp SpO2 Weight 01/03/25 0541 -- -- -- -- -- -- 82 kg (180 lb 12.4 oz) 01/03/25 0400 109/57 36.5 ???C (97.7 ???F) -- 66 11 99 % -- 01/03/25 0006 106/51 36.4 ???C (97.6 ???F) -- 60 13 99 % -- 01/02/25 1904 113/77 36.5 ???C (97.7 ???F) Temporal 67 15 100 % -- 01/02/25 1600 112/66 36.6 ???C (97.9 ???F) -- 69 14 99 % -- 01/02/25 1200 (!) 103/46 36.5 ???C (97.7 ???F) -- 67 14 90 % -- 01/02/25 0812 109/60 36.6 ???C (97.9 ???F) -- 71 15 97 % -- Physical Exam Vitals reviewed. Constitutional: General: She is not in acute distress. Appearance: Normal appearance. She is normal weight. She is not ill-appearing. HENT: Head: Normocephalic and atraumatic. Mouth/Throat: Mouth: Mucous membranes are moist. Pharynx: Oropharynx is clear. Eyes: Extraocular Movements: Extraocular movements intact. Conjunctiva/sclera: Conjunctivae normal. Pupils: Pupils are equal, round, and reactive to light. Neck: Vascular: No carotid bruit. Cardiovascular: Rate and Rhythm: Normal rate and regular rhythm. Pulses: Normal pulses. Heart sounds: Normal heart sounds. No murmur heard. Pulmonary: Effort: Pulmonary effort is normal. No respiratory distress. Breath sounds: Normal breath sounds. Comments: Right anterior chest tube. -20mmHG continuous suction. No airleak. 15mL/24 hrs of serosanguinous output. Occlusive dressing. Abdominal: General: Abdomen is flat. There is no distension. Palpations: Abdomen is soft. Musculoskeletal: General: Normal range of motion. Cervical back: Normal range of motion. Right lower leg: No edema. Left lower leg: No edema. Skin: General: Skin is warm and dry. Capillary Refill: Capillary refill takes less than 2 seconds. Coloration: Skin is not pale. Neurological: General: No focal deficit present. Mental Status: She is alert and oriented to person, place, and time. Mental status is at baseline. Psychiatric: Mood and Affect: Mood normal. Behavior: Behavior normal. Thought Content: Thought content normal. Judgment: Judgment normal. Lab Results Component Value Date NA 139 01/01/2025 K 4.1 01/01/2025 CL 107 01/01/2025 ANIONGAP 9 01/01/2025 BUN 19 01/01/2025 CREATININE 0.73 01/01/2025 CALCIUM 8.8 01/01/2025 Lab Results Component Value Date BILITOT 0.5 01/01/2025 ALKPHOS 65 01/01/2025 AST 21 01/01/2025 ALT 15 01/01/2025 PROT 6.6 01/01/2025 ALBUMIN 4.0 01/01/2025 Lab Results Component Value Date WBC 5.08 01/01/2025 RBC 4.15 01/01/2025 HGB 11.1 (L) 01/01/2025 HCT 34.5 (L) 01/01/2025 PLT 290 01/01/2025 NRBC 0.0 01/01/2025 Assessment/Plan Principal Problem: Spontaneous pneumothorax Active Problems: Heart murmur, aortic History of substance dependence (CMS/HCC) Anxiety and depression Plan: -Keep chest tube to suction. Likely will place to water seal tomorrow. -No supplemental oxygen needs. Continue to monitor SaO2. -BM Regimen while on pain medication. -Will obtain all consult notes, H&P, procedure notes, radiology reports and imaging from [facility] for the month of December, which these events of PTX occurred. If this is, in fact, a recurrence, then we may consider surgical treatment after weighing risks and benefits. -Medical management per primary team. -CT Surgery will continue to follow. To reach Cardiothoracic Surgery Inpatient from 8am-4pm call Ascom #[phone]. Only use [employer] chat for general questions. If unable to reach Ascom Number call hospital precision machine operator for Cardiothoracic Provider Restaurant Hostess. Cardiothoracic (more content not included)... [facility] 01-02-2025 Note Chest Tube Insertion Date/Time: 01/02/2025 10:00 AM Performed by: Vishnu Miramontes MD Authorized by: Vishnu Miramontes MD Consent: Consent obtained: Written Consent given by: Patient Risks, benefits, and alternatives were discussed: yes Risks discussed: Damage to surrounding structures and bleeding [place] protocol: Procedure explained and questions answered to patient or proxy's satisfaction: yes Relevant documents present and verified: yes Test results available: yes Imaging studies available: yes Required blood products, implants, devices, and special equipment available: yes Site/side marked: yes Immediately prior to procedure, a time out was called: yes Patient identity confirmed: Verbally with patient Pre-procedure details: Skin preparation: Povidone-iodine Sedation: Sedation type: None Anesthesia: Anesthesia method: Local infiltration Local anesthetic: Lidocaine 1% w/o epi Procedure details: Placement location: R lateral Scalpel size: 11 Tube size (Fr): 12 Ultrasound guidance: no Tension pneumothorax: no Tube connected to: Suction Drainage characteristics: Air only Suture material: 2-0 silk Dressinx4 sterile gauze Comments: Diabetes Educator: Michael Miller CNP Chest tube insertion requested by thoracic surgery team for recurrent pneumothorax of right thorax. No obvious cause, no trauma, no lung disease history. Chest Xray today shows large right pneumothorax, right pigtail catheter appears displaced. No sign of effusion, only air Discussed with patient placement of percutaneous thoracostomy catheter for pneumothorax drainage. Thoracic surgery will follow for resolution of the pneumothorax. XR chest ordered to confirm tube position, will follow result [facility] 01-02-2025 Note Cardiothoracic Surge ry Progress Note 01/02/2025 Room: [facility]/3179[facility] Subjective Juliette Hernández is a 29 y.o. female with medical history significant for anxiety, depression, and polysubstance abuse with history of overdose. Medical history obtained from the patient and the medical records. She presenting as direct admission to [facility] early this morning, transferred from [facility]. Upon presentation to [facility], she complained of right sided chest pain that progressively worsened over the past 2 days. CXR revealed a moderate to large spontaneous pneumothorax and a small pleural catheter was placed. She denies recent injury or traumatic event. Denies URI or coughing episodes. Denies history of asthma, emphysema, or other lung disease. Denies smoking cigarettes or vaping. States that she smoke marijuana from time to time. She had a previous spontaneous pneumothorax 2 weeks ago and a chest tube was placed. She was transferred to [facility] for surgical evaluation for possible VATS with pleurodesis. Interval: Overnight CXR obtained at 0200 this morning and showed 4.2 cm PTX. Patinet remained in no respiratory distress and hemodynamically stable. Connections checked per RN/DRY CELL BATTERY ASSEMBLER of chest tube, dressing removed and checked that chest tube was in correct position. Ordered repeat CXR which showed decrease in size of PTX 3.3 cm. Patient remained stable. Plans for pulmonary consult for placement of new chest tube today. Objective Patient Vitals for the past 24 hrs: BP Temp Temp src Pulse Resp SpO2 Weight 01/02/25406 -- -- -- -- -- -- 81 kg (178 lb 9.2 oz) 01/02/25404 99/58 36.5 ???C (97.7 ???F) -- 62 15 95 % -- 01/02/25 0001 (!) 92/49 36.6 ???C (97.8 ???F) Temporal 64 16 92 % -- 01/01/25 1930 106/63 36.4 ???C (97.5 ???F) Temporal 68 22 97 % -- 01/01/25 1600 107/77 36.3 ???C (97.3 ???F) Temporal 76 18 93 % -- 01/01/25 1430 129/83 36.3 ???C (97.3 ???F) Temporal 75 20 99 % -- 01/01/25 0800 98/58 36.2 ???C (97.2 ???F) Temporal 64 (!) 8 98 % -- Physical Exam Vitals reviewed. Constitutional: General: She is not in acute distress. Appearance: Normal appearance. She is normal weight. She is not ill-appearing. HENT: Head: Normocephalic and atraumatic. Mouth/Throat: Mouth: Mucous membranes are moist. Pharynx: Oropharynx is clear. Eyes: Extraocular Movements: Extraocular movements intact. Conjunctiva/sclera: Conjunctivae normal. Pupils: Pupils are equal, round, and reactive to light. Neck: Vascular: No carotid bruit. Cardiovascular: Rate and Rhythm: Normal rate and regular rhythm. Pulses: Normal pulses. Heart sounds: Normal heart sounds. No murmur heard. Pulmonary: Effort: Pulmonary effort is normal. No respiratory distress. Breath sounds: Normal breath sounds. Comments: Right anterior chest tube. -20mmHG continuous suction. No airleak. No output. Occlusive dressing. Abdominal: General: Abdomen is flat. There is no distension. Palpations: Abdomen is soft. Musculoskeletal: General: Normal range of motion. Cervical back: Normal range of motion. Right lower leg: No edema. Left lower leg: No edema. Skin: General: Skin is warm and dry. Capillary Refill: Capillary refill takes less than 2 seconds. Coloration: Skin is not pale. Neurological: General: No focal deficit present. Mental Status: She is alert and oriented to person, place, and time. Mental status is at baseline. Psychiatric: Mood and Affect: Mood normal. Behavior: Behavior normal. Thought Content: Thought content normal. Judgment: Judgment normal. Lab Results Component Value Date NA 139 01/01/2025 K 4.1 01/01/2025 CL 107 01/01/2025 ANIONGAP 9 01/01/2025 BUN 19 01/01/2025 CREATININE 0.73 01/01/2025 CALCIUM 8.8 01/01/2025 Lab Results Component Value Date BILITOT 0.5 01/01/2025 ALKPHOS 65 01/01/2025 AST 21 01/01/2025 ALT 15 01/01/2025 PROT 6.6 01/01/2025 ALBUMIN 4.0 01/01/2025 Lab Results Component Value Date WBC 5.08 01/01/2025 RBC 4.15 01/01/2025 HGB 11.1 (L) 01/01/2025 HCT 34.5 (L) 01/01/2025 PLT 290 01/01/2025 NRBC 0.0 01/01/2025 === Imaging Orders, Last 24 Hours === XR CHEST 1 VIEW - Impression - Impression: Slight decrease in size of a small to moderate right pneumothorax. Right lower lung atelectasis. Electronically signed: Guy Corea. XR CHEST 1 VIEW - Impression - Impression: [id number] right pneumothorax with right lung volume loss with partial collapse. Electronically signed: Guy Corea. XR CHEST 2 VIEWS - Impression - * Right chest tube, no pneumothorax. * No acute cardiopulmonary disease. * Normal heart size. Electronically signed: Checo Amaya MD. CT TRANSFER OF OUTSIDE FI (more content not included)... [facility] 01-02-2025 Note Hospital Medicine Daily Progress Note - 01/02/2025 7:00 AM; Room: 3179/3179-01 Admission: 01/01/2025 12:02 AM; Length of stay: 1 days THE HOSPITALIST TEAM PREFERS TO USE [employer] FOR NON-URGENT COMMUNICATION 7AM-7PM. IF I DO NOT RESPOND WITHIN 20 MINUTES OR URGENT MATTERS, PLEASE CALL THROUGH THE DISTANCE LEARNING UNIT LEADER. FROM 7PM-7AM, PLEASE PAGE [phone](COVR). Code Status: Full Code Barriers to Discharge: CXR, chest tube planning Expected Discharge Date: 2-3 days Discharge Destination: home Overview Patient is seen for evaluation and management of pneumothorax. Subjective Patient seen and examined. Patient is tearful today stating her chest tube insertion site hurts severely. No other complaints at this time. Appreciate good airflow in all lung martinez, no crepitus. Chest tube to suction Physical Exam Visit Vitals BP 99/58 Pulse 62 Temp 36.5 ???C (97.7 ???F) Resp 15 Intake/Output Summary (Last 24 hours) at 01/02/2025 0700 Last data filed at 01/02/2025 0532 Gross per 24 hour Intake 180 ml Output 0 ml Net 180 ml Estimated body mass index is 28.82 kg/m??? as calculated from the following: Height as of this encounter: 1.676 m (5' 6 ). Weight as of this encounter: 81 kg (178 lb 9.2 oz). Constitutional: NAD, AOx3 Eyes: EOMI, normal conjunctiva Mouth: Moist, no lesions CV: RRR, normal S1-S2, no murmurs Resp: CTA, no crackles or wheezing, chest tube in place Abd: Soft, non-tender Extremities: No swelling, 2+ distal pulses Skin : Warm, dry Neuro: AOx3, no focal deficits Psych: Tearful Active Inpatient Problems Principal Problem: Spontaneous pneumothorax Active Problems: Heart murmur, aortic History of substance dependence (CMS/HCC) Anxiety and depression Assessment and Plan Spontaneous pneumothorax -recurrence vs continuance of original -No identifiable risk factors, CTS considering catamenial -Chest tube in place -Daily CXR -CTS following; Gen Surg consulted for chest tube placement H/o polysubstance abuse -On chart review, never IV use but did snort variety of substances -Noted somewhat recent sublocade in October, sublingual buprenorphine-naltrexone last month -Will treat acute pain now and de-escalate as soon as able considering her history -Will consult Pharmacy and Pain Management to ensure optimal pain control with recent buprenorphine use Heart murmur, aortic -TTE obtained, largely unremarkable -This was noted on admission but I cannot appreciate this -Perhaps high output flow in setting of anemia Iron deficiency anemia -Mild in nature, ferritin 25, sat 14, Hgb 11.1 -Daily Fe PO VTE Prophylaxis: Will start AFTER PROCEDURE For now, SCDs Scheduled Meds acetaminophen, 1,000 mg, oral, q8h ferrous sulfate, 325 mg, oral, Daily with breakfast FLUoxetine, 60 mg, oral, Daily Pertinent Investigations Hematology: Results from last 7 days Lab Units 01/01/25 0618 WBC AUTO 10*3/uL 5.08 HEMOGLOBIN g/dL 11.1* HEMATOCRIT % 34.5* MCV fL 83.1 PLATELETS AUTO 10*3/uL 290 Chemistry: Results from last 7 days Lab Units 01/01/25 0618 SODIUM mmol/L 139 POTASSIUM mmol/L 4.1 CHLORIDE mmol/L 107 CO2 mmol/L 27 BUN mg/dL 19 CREATININE mg/dL 0.73 GLUCOSE mg/dL 99 CALCIUM mg/dL 8.8 Results from last 7 days Lab Units 01/01/25 0618 AST U/L 21 ALT U/L 15 ALK PHOS U/L 65 BILIRUBIN TOTAL mg/dL 0.5 Historical Values: (Includes values prior to this admission) Lab Results Component Value Date TSH 2.68 01/01/2025 Lab Results Component Value Date [id number] 299 01/01/2025 IRON 53 01/01/2025 TIBC 378 01/01/2025 Imaging XR chest 1 view Narrative: Single view chest History: Pneumothorax, follow-up Comparison: 12/24/2024 Findings: Single portable view of the chest. Small to moderate right pneumothorax measuring 4.2 to 4.3 cm. Right lung volume loss and partial collapse. Impression: Impression: [id number] right pneumothorax with right lung volume loss with partial collapse. Electronically signed: Guy Corea. XR chest 1 view Narrative: Single view chest History: Pneumothorax. Follow-up. Comparison: 01/02/2025 Findings: Single portable view of the chest. Small to moderate right apical pneumothorax measuring 3.3 cm, previously 4.2 cm. There is right lower lung atelectasis. Stable cardiomediastinal silhouette. Impression: Impression: Slight decrease in size of a small to moderate right pneumothorax. Right lower lung atelectasis. Electronically signed: Guy Corea. Discharge Planning Signed Gil Zhang MD Hospital Medicine 01/02/2025 7:00 AM [facility] 01-01-2025 Note Patient came to echo lab for test but was crying in pain. I gave her the option to try test at a later time and she was agreeable. Will try again this afternoon. [facility] 01-01-2025 Note Consider echocardiog keon murmur as a second right intercostal space no radiation and unchanged with handgrip and no exertional chest pain syncope or dyspnea [facility] 01-01-2025 Note Since this was the s econd episode the hospitalist at [facility] contact CTS at [facility] and it was decided to transfer patient to [facility] continue pain control incentive spirometry chest tube care follow-up with CTS will repeat labs and chest x-ray in the morning [facility] 01-01-2025 Note Hospital Medicine History and Physical 01/01/2025 1:11 AM THE HOSPITALIST TEAM PREFERS TO USE [employer] CHAT FOR NON-URGENT COMMUNICATION 7AM-7PM. IF I DO NOT RESPOND WITHIN 20 MINUTES OR URGENT MATTERS, PLEASE CALL THROUGH THE DISTANCE LEARNING UNIT LEADER. FROM 7PM-7AM, PLEASE PAGE [phone](COVR). Chief Complaint No chief complaint on file. History of Present Illness Juliette Hernández is an 29 y.o. female admitted from [facility] where she presented with new onset chest pain right upper chest since past 2 days associated with shortness of breath more with exertion denies diaphoresis nausea vomiting cough hemoptysis denies weakness dizziness lightheadedness. She has history of pneumothorax 2 weeks back requiring chest tube placement but which was later taken off both the events occurred while patient was sedentary no-show tobacco drug alcohol no history of connective tissue disorder no underlying medical illnesses she is only on fluoxetine. Patient is para 4, 5 with 1 miscarriage. No history of STDs denies hepatitis HIV she works at [employer] Review of System and Physical Exam Heart Rate: [79] 79 Resp: [12] 12 BP: (119)/(72) 119/72 Physical Exam Vitals reviewed. Constitutional: Appearance: Normal appearance. She is normal weight. HENT: Head: Normocephalic and atraumatic. Right Ear: Tympanic membrane, ear canal and external ear normal. Left Ear: Tympanic membrane, ear canal and external ear normal. Mouth/Throat: Mouth: Mucous membranes are moist. Pharynx: Oropharynx is clear. Eyes: Extraocular Movements: Extraocular movements intact. Conjunctiva/sclera: Conjunctivae normal. Pupils: Pupils are equal, round, and reactive to light. Cardiovascular: Rate and Rhythm: Normal rate and regular rhythm. Pulses: Normal pulses. Heart sounds: Murmur heard. Pulmonary: Effort: Pulmonary effort is normal. Breath sounds: Normal breath sounds. Abdominal: General: Abdomen is flat. Bowel sounds are normal. Palpations: Abdomen is soft. Musculoskeletal: General: Normal range of motion. Cervical back: Normal range of motion and neck supple. Skin: General: Skin is warm and dry. Capillary Refill: Capillary refill takes less than 2 seconds. Neurological: General: No focal deficit present. Mental Status: She is alert. Mental status is at baseline. Psychiatric: Behavior: Behavior normal. Review of Systems Constitutional: Negative. HENT: Negative. Eyes: Negative. Respiratory: Negative. Cardiovascular: Positive for chest pain. Negative for palpitations and leg swelling. Gastrointestinal: Negative. Endocrine: Negative. Genitourinary: Negative. Musculoskeletal: Negative. Allergic/Immunologic: Negative. Neurological: Negative. Hematological: Negative. Psychiatric/Behavioral: Negative. Assessment and Plan Assessment & Plan Spontaneous pneumothorax Since this was the second episode the hospitalist at [facility] contact CTS at [facility] and it was decided to transfer patient to [facility] continue pain control incentive spirometry chest tube care follow-up with CTS will repeat labs and chest x-ray in the morning Heart murmur, aortic Consider echocardiogram murmur as a second right intercostal space no radiation and unchanged with handgrip and no exertional chest pain syncope or dyspnea VTE Prophylaxis: Hold anticoagulation anticipating procedure ----- Focus of this inpatient stay will remain on problems that need acute care setting for care. We will review available studies and will order additional labs, imaging and other studies as appropriate. As needed medicines are ordered as appropriate. VTE Prophylaxis will be ordered as appropriate. Please see above for management plan for individual hospital problems. Home medications are reviewed and will be continued as appropriate. Patient will be continued to be followed during this hospital stay by a member of [facility]. Past Medical History History reviewed. No pertinent past medical history. Past Surgical History History reviewed. No pertinent surgical history. Social History Social History Socioeconomic History Marital status: Not on file Spouse name: Not on file Number of children: Not on file Years of education: Not on file Highest education level: Not on file Occupational History Not on file Tobacco Use Smoking status: Never Smokeless tobacco: Never Substance and Sexual Activity Alcohol use: Not on file Drug use: Not on file Sexual activity: Not on file Other Topics Concern Not on file Social History Narrative Not on file Social Determinants of Health Financial Resource Strain: Low Risk (01/01/2025) Overall Financial Resource Strain (CARDIA) Difficulty of Paying Living Expenses: Not hard at all Food Insecurity: No Food Insecurity (01/01/2025) Hunger Vital Sign Worried About Running Out of Food in the Last Year: Never true Ran Out of Food in th (more content not included)... [facility] 02-21-2024 Emergency department Note HPI Chief Complaint [...] painful. She denies a rash anywhere else. Chandler Coma Scale Score: 15 Patient History Past Medical History: Diagnosis Date Anemia complicating , unspecified trimester ([facility]) Anemia of mother in Chlamydial infection, unspecified Positive Chlamyida test Encounter for screening for infections with a predominantly sexual mode of transmission Screen for STD (sexually transmitted disease) Gonococcal infection, unspecified Gonorrhea in female Missed ([facility]) Missed Other abnormal findings in urine Leukocytes [...] PA-C 02/21/24 1101 documented in this encounter [facility] Work Phone: 02-21-2024 Physician Emergency department Note HPI Chief [...] painful. She denies a rash anywhere else. Chandler Coma Scale Score: 15 Patient History Past [...] Procedure Procedures Radha Lima PA-C 02/21/24 1101 [facility] Work Phone: 10-16-2021 Note HNO ID: [id number] Author: Juan Antonio Esqueda PA-C Service: ? Author Type: Physician Diabetes Educator Type: Progress Notes Filed: 10/16/2021 10:24 AM Note Text: This note was created using [employer]. Subjective Juliette Hernández is a 26 year [...] Exam Vitals reviewed. Exam conducted with a wood miller present (Latia Pantoja MA present for exam). [...] Abstain from se (more content not included)... [facility] 07-15-2021 Note HNO ID: [id number] Author: Rubina Lala PA-C Service: ? Author Type: Physician Diabetes Educator Type: Progress Notes Filed: 07/15/2021 1:58 PM Note Text: This note was created using [employer]. Subjective Juliette Hernández is a 26 year [...] while awaiting COVID results. - 2019 CORONAVIRUS [facility] Evaluation note Diagnosis Multiple drug overdose, accidental or unintentional, initial encounter- Primary [facility] Diagnosis Trichomonas exposure- Primary Rash Rash and other nonspecific skin eruption documented in this encounter [facility] Work Phone: History of Present illness Narrative* New Patient Visit: * CC: Left proximal first toe fracture * HPI: 27-year-old female presents here today with complaints of pain discomfort to the left big toe.She points to the front of her foot and great toe as area of most pain discomfort. She states that she had tripped stubbed her toe * Pain and discomfort. She was seen and [...] injury or trauma to the left big toein the past. * Review of Systems, Past Medical History, Social History, and Family History documented and initialed on the patient information form dated 11/22/2022. * Physical Exam: * GENERAL: Patient is awake, alert, and oriented to person place and time. Patient appears well nourished and well kept. Affect Calm, Not Acutely Distressed. * HEENT: Normocephalic, Atraumatic, EOMI * CARDIOVASCULAR: Hemodynamically stable. * RESPIRATORY: Normal respirations with unlabored breathing. * NEURO: Gross sensation intact to the lower extremities bilaterally. * Extremity: Left great toe exam: Inspection no redness warmth erythema. Bruising and swelling is noted. Exquisite tenderness at the first MTP joint, minimal pain at the IP joint. Good distal cap refill is noted. Antalgic gait secondary to pain. Negative midfoot squeeze. * Diagnostics: Previous plain films reviewed * Procedure: None * Assessment: Left proximal first phalanx fracture with intra-articular component * Plan: Discussed the nonoperative nature of this [...] with ice elevation and Tylenol as well. * At the conclusion of the visit there were no further questions by the patient/family regarding their plan of care. Patient was instructed to call or return with any issues, questions, or concerns regarding their injury and/or treatment plan described above. * This note was prepared using voice recognition software. The details of this note are correct and have been reviewed, and corrected to the best of my ability. Some grammatical areas may persist related to the [employer] software * Chacorta Erwin MD * Office: * . [facility] Work Phone: History of Present illness Narrative* Patient has sexual pain associated with myofascial etiology previously discussed multiple times * Worse now reports doing Kegel exercises discussed that this exacerbates muscle tension as it does not include the relaxation phase reputable muscles causes tenderness worsening of pain * Discussed physical therapy * Discussed trigger point injection Botox injection Kerry therapy [facility] Work Phone: Hospital Discharge instructions* Attachments The following attachments cannot be sent through Care Everywhere. * Drug Overdose: Multidrug ([facility]) [facility]* Attachments The following attachments cannot be sent through Care Everywhere. * Skin Rash ED ([facility]) * Sexually transmitted infections ([facility]) [facility] Summary Purpose Family History [...] intercourse and with insert of tampon * wood miller mariam rma * Est pt here for pain with intercourse and with insert of tampon * wood miller mariam rma Additional Source Comments INFORMATION SOURCE (unrecogn ized section and content) DATE CREATED AUTHOR 01/26/2019 [facility] DATE CREATED AUTHOR AUTHOR'S ORGANIZ ATION 12/11/2021 [facility] DATE CREATED AUTHOR AUTHOR'S ORGANIZ ATION 01/03/2023 [facility] DATE CREATED AUTHOR AUTHOR'S ORGANIZ ATION 01/11/2023 [facility] DATE CREATED AUTHOR AUTHOR'S ORGANIZ ATION 01/12/2023 [employer] DATE CREATED AUTHOR AUTHOR'S ORGANIZ ATION 06/21/2023 [facility] DATE CREATED AUTHOR AUTHOR'S ORGANIZ ATION 02/22/2024 [facility] DATE CREATED AUTHOR AUTHOR'S ORGANIZ ATION 12/13/2024 [facility] DATE CREATED AUTHOR AUTHOR'S ORGANIZ ATION 01/11/2025 [facility] <item><item><item><item><item> Privacy Markings (unrecogniz ed section and [...] Skinner, RN) 0004 (Stopped - Provider: Sheila Edwards RN) Scheduled Medication Order 02/19/2024 02/20/2024 02/21/2024 [...] Care Teams (unrecognized sec tion and content) Brim Pouncing Machine Operator Relationship Specialty Start Date End Date Chacorta Erwin MD [address] [facility], [address] [place] [address] PCP - Finnjanine OLMSTEAD PCP 08/04/23 Generic Provider, No Assigned Pcp, [place] [address] PCP - General Rehabilitation Manager 02/21/24 Brim Pouncing Machine Operator Relationship Specialty Start Date End Date Sunny Lilly MD [address] [place] [address] PCP - General Neurology 06/25/23 Brim Pouncing Machine Operator Relationship Specialty Start Date End Date Sunny Lilly MD [address] [place] [address] PCP - General Neurology 06/25/23 Brim Pouncing Machine Operator Relationship Specialty Start Date End Date Sunny Lilly MD [address] [place] [address] PCP - General Neurology 06/25/23 FOR RECORDS [...] BE BASED ON THE PRIMARY CLINICAL RECORDS. [facility] [employer] [facility]. provides no warranty or guarantee of the accuracy or completeness of information in this document.
[2025-01-13 07:44] VITALS: BP 129/87; PULSE 89; TEMP 36.8; O2SAT 97; BMI 29.9
[2025-01-13] MEDS: HYDROCODONE/ACET 5-325 MG TABLET 1 TAB PO (08:09)
[2025-01-13] MEDS: BENZOCAINE 30 ML, lidocaine HCL 15 ML MM (08:10)
--- NOTE | 2025-01-13 08:15 | ED.GENADUL1 ---
HPI HPI - General Adult General Chief complaint: Dental/Oral Stated complaint: DENTAL PAIN Time Seen by Provider: 01/13/25 07:48 Mode of arrival: walk-in History of Present Illness HPI narrative: Patient presents to ED complaining of dental pain. She said that she has been in pain for the past few days. She had some tramadol leftover from the hospital and she been alternating that with Tylenol and has not been working. The dental pain is the left lower jaw. She has dental caries and poor dentition and she states she knows that she needs the tooth pulled. She has tried to get into a dentist without any luck so far. Patient does not have any trismus or fevers. She is able to open her mouth. No tongue elevation and she is handling secretions. States she has not been able to get any rest because of her pain. She does have a history of alcohol addiction but no opiate addiction. She has not been on Suboxone for over a year. Related Data Home Medications ?Medication ?Instructions ?Recorded ?Confirmed fluoxetine 20 mg capsule 20 mg PO DAILY 12/16/24 12/16/24 fluoxetine 40 mg capsule (Prozac) 40 mg PO DAILY 12/16/24 12/16/24 Previous Rx's ?Medication ?Instructions ?Recorded hydrocodone 5 mg-acetaminophen 325 1 tab PO Q6H PRN pain #14 tabs 01/13/25 mg tablet penicillin V potassium 500 mg 500 mg PO Q6H 10 days #40 tabs 01/13/25 tablet Allergies Allergy/AdvReac Type Severity Reaction Status Date / Time No Known Drug Allergies Allergy Verified 12/16/24 08:57 Opioid HPI Opioid Management Most Recent Opioid Data: Last Pain Scale 10 12/31/24 17:40 12/31/24 Last ORT Total Score 6 12/16/24 13:48 12/16/24 Last ORT Risk Category Moderate Risk 12/16/24 13:48 12/16/24 Review of Systems ROS Status of ROS 10 or more systems reviewed and unremarkable except as noted in history and below [facility] Medical History (Updated 01/13/25 @ 08:02 by Jenny Garcia DO) Primary spontaneous pneumothorax (12/16/24) ?J93.11 - Primary spontaneous pneumothorax (ICD-10) Pneumothorax on right ?J93.9 - Pneumothorax, unspecified (ICD-10) Urinary tract infection ?N39.0 - Urinary tract infection, site not specified (ICD-10) Anxiety ?F41.9 - Anxiety disorder, unspecified (ICD-10) History of depression ?Z86.59 - Personal history of other mental and behavioral disorders (ICD-10) Family History (Updated 12/16/24 @ 13:52 by Yuliana Tang RN) Grandfather Family history of myocardial infarction Mother Family history of myocardial infarction Grandmother Family history of cancer Social History (Updated 12/16/24 @ 13:52 by Yuliana Tang RN) Within the past year, how often did you have a drink containing alcohol: never Score interpretation: A score less than 3 is consistent with normal alcohol consumption. Smoking status: Never smoker Non-prescribed substance use: denies use Highest level of school completed/degree received: GED or equivalent Little interest or pleasure in doing things: not at all Feeling down, depressed, or hopeless: not at all Exam Narrative Exam Narrative: General: alert, no acute distress Cardiovascular: regular rate and rhythm, normal peripheral perfusion. Respiratory: Lungs CTA, respirations non labored. Extremities: no deformity, no trauma. Neurological: oriented x 4, LOC appropriate for age. No trismus no drooling no tongue elevation. Dental caries present in the left lower jaw no abscess. Tooth decay and missing teeth. Tenderness and redness to the gums. Constitutional Vital Signs, click to edit/add: Last Vital Signs Temp 98.2 F 01/13/25 07:44 Pulse 89 01/13/25 07:44 Resp 18 01/13/25 07:44 BP 129/87 01/13/25 07:44 Pulse Ox 97 01/13/25 07:44 O2 Del Method Room Air 01/13/25 07:44 Course Vital Signs Vital signs: Vital Signs Temperature 98.2 F 01/13/25 07:44 Pulse Rate 89 01/13/25 07:44 Respiratory Rate 18 01/13/25 07:44 Blood Pressure 129/87 01/13/25 07:44 Pulse Oximetry 97 01/13/25 07:44 Oxygen Delivery Method Room Air 01/13/25 07:44 Temperature 98.2 F 01/13/25 07:44 Pulse Rate 89 01/13/25 07:44 Respiratory Rate 18 01/13/25 07:44 Blood Pressure 129/87 01/13/25 07:44 Pulse Oximetry 97 01/13/25 07:44 Oxygen Delivery Method Room Air 01/13/25 07:44 Medical Decision Making MDM Narrative Medical decision making narrative: Patient was given topical numbing medication here in ED for pain relief. Patient was given a Harviell here. Patient will be sent home with Harviell please alternate this with Motrin as well. Patient will also be sent home on an antibiotic. She denies any allergies. Penicillin given for home. Please continue to work on finding a dentist. Patient comfortable care plan for home Differential Diagnosis Differential Diagnosis: Dental caries, dental abscess, dental pain Discharge Plan Discharge Chief Complaint: Dental/Oral Clinical Impression: Dental caries, Pain, dental Patient Disposition: Home, Self-Care Time of Disposition Decision: 08:02 Condition: Good Mode of Transportation: Private Vehicle Prescriptions / Home Meds: New penicillin V potassium 500 mg tablet 500 mg PO Q6H 10 Days Qty: 40 0RF hydrocodone-acetaminophen 5-325 mg tablet 1 tab PO Q6H PRN (Reason: pain) Qty: 14 0RF No Action fluoxetine [Prozac] 40 mg capsule 40 mg PO DAILY Patient Comments: 60mg daily fluoxetine 20 mg capsule 20 mg PO DAILY Print Language: Wolof Instructions: Toothache (ED) Referrals: YUE CARTER [Primary Care Provider] - 1 week Discharge Date/Time: 01/13/25 08:15
== END 2025-01-13 08:15 | disposition home or self-care (01) ==
PROVIDERS: Emergency Provider Emergency Medicine; PCP Nurse Practitioner Family
DX: K02.9 Dental caries, unspecified (principal); K08.89 Other specified disorders of teeth and supporting structures
CPT/HCPCS: 99283

== ENCOUNTER 2025-01-15 20:37 | Emergency (ER) | payer OTHER, SELFPAY ==
[2025-01-15] VITALS (9 sets, daily range): BP systolic 106–129; BP diastolic 59–79; PULSE 69–100; TEMP 36.6; O2SAT 94–100
--- OUTSIDE RECORDS SUMMARY | 2025-01-15 20:43 | XMS_ITS | CCD ---
Author Organization [facility] Care Team Providers Care Pneudraulic Systems Mechanic Name Role Phone MAXX, BRAULIO Primary Care [...] Roberson Attending Unavailab le Rip, Dr. Chacorta aTtum Attending U navailable Rip, Dr. Chacorta Tatum Attending U navailable Mitesh, Elinorjean claude Piedra Attending Unavail able Franky, MsKim Hassan Attending Zayda vailable MD CALLY MEYER Referring Unav ailable MD CALLY MEYER Attending Unav ailable Unavailable Primary Care Provider UnavailDAWSON Catrer Attending Unavailable Chacorta Erwin MD Unavailable Generic Provider MD, No Assigned Pcp Primary Car e Provider Unavailable GENERIC PROVIDER, NO ASSIGNED PCP Primary Care Unavailable Maxx CESPEDES, Sunny Primary Care Provider GUANAKO, SHARIF Referring Unavailable MAXX, KHALID Primary [...] Unavailabl e VICENTE, GIL T Referring Unavailable DERISO, DENIA Referring Unavailable RICARDO HERNANDEZAR Referring Unavailable WOO SILVA Referring Unavailabl e WOO SILVA Referring Unavailabl e VICENTE, GIL T Referring Unavailable WOO SILVA Referring Unavailabl e ASIYA, Referring Unavailable MIRIAMI, NARINDER Referring Unavailable WOO SILVA Referring Unavailabl e WOO SILVA Referring Unavailabl e VICENTE, GIL T Referring Unavailable DIAB, JENNIFER Referring Unavailable HORANI, SABINE Admitting Unavailable IGL ZHANG Attending Unavailable Medications Current Medications Medication [...] Start: 06-02-2020 take 1 capsule by mo [facility] every twelve hours Nitrofurantoin Monohyd Macro 100 [...] 07-30-2018 Episodic Other aftercare (1 source) Other chcf (current) drug therapy; Translations: [Other chcf (current) drug therapy] Onset: 09-08-2022 Episodic Other [...] and to follow up with PCP/ other bus info consultant. Patient did cancel her appointment. Thank you. [facility] 36 Patient was recently seen in the ER for spontaneous pneuomthorax. Patient states she was prescribed oxycodone while in the hospital. She continues to have pain. She is inquiring on a pain medication refill to last her until her pulmonary appointment with Dr. Hudson this upcoming . Brazer Assembler did advise that this would be unlikely as she has a established bus info consultant but web content writer would reach out regardless. Please advise. [facility] 30on 01-07-2025 30 Problem: Pain - Adul [...] 0910 by Malena Tatum RN Outcome: Progressing [facility] 30 Problem: Pain - Adul t Goal: [...] clinical goals for the shift include VSS [facility] NURSNOTEon 01-07-2025 NURSNOTE Discharge paperwork gone over with patient at this time. All questions answered at bedside. Patient denies further questions. [facility] 30on 01-06-2025 30 The patient is Moder ately Stable - Low risk of patient condition declining or worsening The patient's goals for the shift include Comfort, rest The clinical goals for the shift include VSS, Safety [facility] 30 The patient is Moder ately Stable [...] or baseline comfort level Outcome: Progressing . [facility] 30 Daily Case Managemen t Update Multidisciplinary [...] PT Recommendations: OT Recommendations: New Consults: Normal [facility] 30 The patient is Moder ately Stable [...] and prevent overall improvement and discharge Normal [facility] BASIC METABOLIC PANELon 03-0 Anion gap [Moles/Vol] 16 mmol/L Normal 7-20 [facility] Comment on above: Performed By: #### L [id number] #### [facility] ([facility]) [address] [place] [address] Calcium [Mass/Vol] 9.1 mg/dL Normal 8.6-10.3 [facility] Comment on above: Performed By: #### L [id number] #### [facility] ([facility] [address] [place] [address] Chloride [Moles/Vol] 103 mmol/L Normal 98-107 [facility] Comment on above: Performed By: #### L [id number] #### [facility] ([facility]) [address] [place] [address] CO2 [Moles/Vol] 25 mmol/L Normal 21-31 [facility] Comment on above: Performed By: #### L [id number] #### [facility] ([facility]) [address] [place] [address] Creatinine [Mass/Vol] 0.70 mg/dL Normal 0.60-1.20 [facility] Comment on above: Performed By: #### L [id number] #### [facility] ([facility]) [address] [place] [address] GLOMERULAR FILTRATION RATE ML/MIN/1.73 SQ M.PREDICTED 119.2 mL/min/1.73m*2 Normal >60.0 [facility] Comment on above: Result Comment: [facility]???s estimated glomerular filtration rate (eGFR) will no [...] individuals. Performed By: #### L [id number] #### [facility] ([facility] [address] [place] [address] Glucose [Mass/Vol] 91 mg/dL Normal 70-100 [facility] Comment on above: Performed By: #### L [id number] #### [facility] ([facility]) [address] [place] [address] Potassium [Moles/Vol] 4.0 mmol/L Normal 3.5-5.1 [facility] Comment on above: Performed By: #### L [id number] #### [facility] ([facility]) [address] [place] [address] Sodium [Moles/Vol] 140 mmol/L Normal 136-145 [facility] Comment on above: Performed By: #### L [id number] #### [facility] ([facility]) [address] [place] [address] Urea nitrogen [Mass/Vol] 20 mg/dL Normal 7-25 [facility] Comment on above: Performed By: #### L [id number] #### [facility] ([facility]) [address] [place] [place] [address] UREA NITROGEN/CREATININ E (MASS RATIO) IN SER/PLAS 28.6 Normal [facility] Comment on above: Performed By: #### L [id number] #### [facility] ([facility]) [address] [place] [address] CBC WITH AUTO DIFFERENTIALon 01-06-2025 Basophils (Bld) [#/Vol] 0.03 10*3/uL Normal 0.00-0.20 [facility] Comment on above: Performed By: #### L [id number] ####[facility] ([facility])[address] [place] [address] Basophils/100 WBC (Bld) 0.5 % Normal 0.0-1.0 [facility] Comment on above: Performed By: #### L [id number] ####[facility] ([facility])[address] [place] [address] Eosinophils (Bld) [#/Vol] 0.17 10*3/uL Normal 0.00-0.50 [facility] Comment on above: Performed By: #### L [id number] ####[facility] ([facility])[address] [place] [address] Eosinophils/100 WBC (Bld) 2.8 % Normal 0.0-6.0 [facility] Comment on above: Performed By: #### L [id number] ####[facility] ([facility])[address] [place] [address] Erythrocyte distribution width (RBC) [Ratio] 13.5 % Normal 11.5-15.0 [facility] Comment on above: Performed By: #### L [id number] ####[facility] ([facility] [place] [address] ERYTHROCYTE MEAN CORPUSCULAR HEMOGLOBIN CONCENTRATION (G/DL) BY AUTOMATED 31.4 g/dL Low 32.0-35.0 [facility] Comment on above: Performed By: #### L [id number] ####[facility] ([facility] [place] [address] Hematocrit (Bld) [Volume fraction] 35.7 % Low 36.0-48.0 [facility] Comment on above: Performed By: #### L [id number] ####[facility] ([facility])[address] [place] [address] Hemoglobin (Bld) [Mass/Vol] 11.2 g/dL Low 12.0-15.0 [facility] Comment on above: Performed By: #### L [id number] ####[facility] ([facility])[address] [place] [address] Immature granulocytes (Bld) [#/Vol] 0.02 10*3/uL Normal 0.00-0.20 [facility] Comment on above: Performed By: #### L [id number] ####[facility] ([facility])[address] [place] [address] Immature granulocytes/100 WBC (Bld) 0.3 % Normal 0.0-1.0 [facility] Comment on above: Performed By: #### L [id number] ####[facility] ([facility])[address] [place] [address] Lymphocytes (Bld) [#/Vol] 1.32 10*3/uL Normal 1.20-4.00 [facility] Comment on above: Performed By: #### L [id number] ####[facility] ([facility])[address] [place] [address] Lymphocytes/100 WBC (Bld) 21.6 % Normal 20.0-45.0 [facility] Comment on above: Performed By: #### L [id number] ####[facility] ([facility])[address] [place] [address] MCH (RBC) [Entitic mass] 26.8 pg Low 27.0-33.0 [facility] Comment on above: Performed By: #### L [id number] ####[facility] ([facility])[address] [place] [address] MCV (RBC) [Entitic vol] 85.4 fL Normal 82.0-98.0 [facility] Comment on above: Performed By: #### L [id number] ####[facility] ([facility])[address] [place] [address] Monocytes (Bld) [#/Vol] 0.62 10*3/uL Normal 0.10-1.00 [facility] Comment on above: Performed By: #### L [id number] ####[facility] ([facility])[address] [place] [address] Monocytes/100 WBC (Bld) 10.1 % Normal 5.0-12.0 [facility] Comment on above: Performed By: #### L [id number] ####[facility] ([facility])[address] [place] [address] Neutrophils (Bld) [#/Vol] 3.95 10*3/uL Normal 1.60-7.60 [facility] Comment on above: Performed By: #### L [id number] ####[facility] ([facility])[address] [place] [address] Neutrophils/100 WBC (Bld) 64.7 % Normal 40.0-72.0 [facility] Comment on above: Performed By: #### L [id number] ####[facility] ([facility])[address] [place] [address] NRBC (PER 100 WBCS) BY AUTOMATED COUNT 0.0 % Normal 0 [facility] Comment on above: Performed By: #### L [id number] ####[facility] ([facility])[address] [place] [address] PLATELETS (10*3/UL) IN BLOOD AUTOMATED COUNT 318 10*3/uL Normal 150-400 [facility] Comment on above: Performed By: #### L [id number] ####[facility] ([facility])[address] [place] [address] RBC (Bld) [#/Vol] 4.18 10*6/uL Normal 3.80-5.00 [facility] Comment on above: Performed By: #### L [id number] ####[facility] ([facility])[address] [place] [address] WBC (Bld) [#/Vol] 6.11 10*3/uL Normal 4.00-10.60 [facility] Comment on above: Performed By: #### L [id number] ####[facility] ([facility])[address] [place] [address] MAGNESIUMon 01-06-2025 Magnesium [Mass/Vol] 1.8 mg/dL Low 1.9-2.7 [facility] Comment on above: Performed By: #### L [id number] ####[facility] ([facility] [place] [address] 30on 01-05-2025 30 Daily Case Managemen t [...] appropriate for patient?: Yes New Consults: Normal [facility] BASIC METABOLIC PANELon 03-0 Anion gap [Moles/Vol] 15 mmol/L Normal 7-20 [facility] Comment on above: Performed By: #### L [id number] #### [facility] ([facility]) [address] [place] [address] Calcium [Mass/Vol] 9.3 mg/dL Normal 8.6-10.3 [facility] Comment on above: Performed By: #### L [id number] #### [facility] ([facility]) [address] [place] [address] Chloride [Moles/Vol] 103 mmol/L Normal 98-107 [facility] Comment on above: Performed By: #### L [id number] #### [facility] ([facility]) [address] [place] [address] CO2 [Moles/Vol] 24 mmol/L Normal 21-31 [facility] Comment on above: Performed By: #### L [id number] #### [facility] ([facility]) [address] [place] [address] Creatinine [Mass/Vol] 0.62 mg/dL Normal 0.60-1.20 [facility] Comment on above: Performed By: #### L [id number] #### [facility] ([facility]) [address] [place] [address] GLOMERULAR FILTRATION RATE ML/MIN/1.73 SQ M.PREDICTED 122.8 mL/min/1.73m*2 Normal >60.0 [facility] Comment on above: Result Comment: [facility]???s estimated glomerular filtration rate (eGFR) will no [...] individuals. Performed By: #### L [id number] #### [facility] ([facility]) [address] [place] [address] Glucose [Mass/Vol] 71 mg/dL Normal 70-100 [facility] Comment on above: Performed By: #### L [id number] #### [facility] ([facility]) [address] [facility] [place] [address] Potassium [Moles/Vol] 3.6 mmol/L Normal 3.5-5.1 [facility] Comment on above: Performed By: #### L [id number] #### [facility] ([facility]) [address] [place] [address] Sodium [Moles/Vol] 138 mmol/L Normal 136-145 [facility] Comment on above: Performed By: #### L [id number] #### [facility] ([facility]) [address] [place] [address] Urea nitrogen [Mass/Vol] 14 mg/dL Normal 7-25 [facility] Comment on above: Performed By: #### L [id number] #### [facility] ([facility]) [address] [place] [address] UREA NITROGEN/CREATININ E (MASS RATIO) IN SER/PLAS 22.6 Normal [facility] Comment on above: Performed By: #### L [id number] #### [facility] ([facility]) [address] [place] [address] CBC WITH AUTO DIFFERENTIALon 01-05-2025 Basophils (Bld) [#/Vol] 0.03 10*3/uL Normal 0.00-0.20 [facility] Comment on above: Performed By: #### L [id number] #### [facility] ([facility] [address] [place] [address] Basophils/100 WBC (Bld) 0.4 % Normal 0.0-1.0 [facility] Comment on above: Performed By: #### L [id number] #### [facility] [address] [place] [address] Eosinophils (Bld) [#/Vol] 0.06 10*3/uL Normal 0.00-0.50 [facility] Comment on above: Performed By: #### L [id number] #### [facility] ([facility]) [address] [place] [address] Eosinophils/100 WBC (Bld) 0.8 % Normal 0.0-6.0 [facility] Comment on above: Performed By: #### L [id number] #### [facility] ([facility]) [address] [place] [address] Erythrocyte distribution width (RBC) [Ratio] 13.5 % Normal 11.5-15.0 [facility] Comment on above: Performed By: #### L [id number] #### [facility] ([facility]) [address] [place] [address] ERYTHROCYTE MEAN CORPUSCULAR HEMOGLOBIN CONCENTRATION (G/DL) BY AUTOMATED 31.8 g/dL Low 32.0-35.0 [facility] Comment on above: Performed By: #### L [id number] #### [facility] ([facility]) [address] [place] [address] Hematocrit (Bld) [Volume fraction] 35.8 % Low 36.0-48.0 [facility] Comment on above: Performed By: #### L [id number] #### [facility] ([facility]) [address] [place] [address] Hemoglobin (Bld) [Mass/Vol] 11.4 g/dL Low 12.0-15.0 [facility] Comment on above: Performed By: #### L [id number] #### [facility] ([facility]) [address] [place] [address] Immature granulocytes (Bld) [#/Vol] 0.01 10*3/uL Normal 0.00-0.20 [facility] Comment on above: Performed By: #### L [id number] #### [facility] ([facility]) [address] [place] [address] Immature granulocytes/100 WBC (Bld) 0.1 % Normal 0.0-1.0 [facility] Comment on above: Performed By: #### L [id number] #### [facility] ([facility]) [address] [place] [address] Lymphocytes (Bld) [#/Vol] 1.54 10*3/uL Normal 1.20-4.00 [facility] Comment on above: Performed By: #### L [id number] #### [facility] ([facility]) [address] [place] [address] Lymphocytes/100 WBC (Bld) 19.9 % Low 20.0-45.0 [facility] Comment on above: Performed By: #### L [id number] #### [facility] ([facility]) [address] [place] [address] MCH (RBC) [Entitic mass] 26.6 pg Low 27.0-33.0 [facility] Comment on above: Performed By: #### L [id number] #### [facility] [address] [place] [address] MCV (RBC) [Entitic vol] 83.4 fL Normal 82.0-98.0 [facility] Comment on above: Performed By: #### L [id number] #### [facility] ([facility]) [address] [place] [address] Monocytes (Bld) [#/Vol] 0.66 10*3/uL Normal 0.10-1.00 [facility] Comment on above: Performed By: #### L [id number] #### [facility] ([facility]) [address] [place] [address] Monocytes/100 WBC (Bld) 8.5 % Normal 5.0-12.0 [facility] Comment on above: Performed By: #### L [id number] #### [facility] ([facility]) [address] [place] [address] Neutrophils (Bld) [#/Vol] 5.45 10*3/uL Normal 1.60-7.60 [facility] Comment on above: Performed By: #### L [id number] #### [facility] ([facility]) [address] [place] [address] Neutrophils/100 WBC (Bld) 70.3 % Normal 40.0-72.0 [facility] Comment on above: Performed By: #### L [id number] #### [facility] ([facility]) [address] [place] [address] NRBC (PER 100 WBCS) BY AUTOMATED COUNT 0.0 % Normal 0 [facility] Comment on above: Performed By: #### L [id number] #### [facility] ([facility]) [address] [place] [address] PLATELETS (10*3/UL) IN BLOOD AUTOMATED COUNT 330 10*3/uL Normal 150-400 [facility] Comment on above: Performed By: #### L [id number] #### [facility] ([facility]) [address] [place] [address] RBC (Bld) [#/Vol] 4.29 10*6/uL Normal 3.80-5.00 [facility] Comment on above: Performed By: #### L [id number] #### [facility] ([facility]) [address] [place] [address] WBC (Bld) [#/Vol] 7.75 10*3/uL Normal 4.00-10.60 [facility] Comment on above: Performed By: #### L [id number] #### [facility] ([facility]) [address] [place] [address] CT CHEST WO IV CONTRASTon CT CHEST [...] signed: Keysha Casas. 9 Invalid Interpretation Code [facility] MAGNESIUMon 01-05-2025 Magnesium [Mass/Vol] 1.8 mg/dL Low 1.9-2.7 [facility] Comment on above: Performed By: #### L [id number] #### [facility] ([facility]) [address] [place] [address] NURSNOTEon 01-05-2025 NURSNOTE Per pulmonary clamp chest tube and place to water seal and pt will go to CT to see if any improvement. If better potentially removing chest tube. Normal [facility] 30on 01-04-2025 30 The patient is Moder [...] and behaviors that affect risk of falls [place] fall precautions as indicated by assessment Instruct [...] conditions and prevent exacerbation or deterioration Normal [facility] 30 Daily Case Managemen t Update Multidisciplinary [...] Score: 24 OT Six Click Score: Normal [facility] 30 The patient is Moder ately Stable [...] and maintained or improved Outcome: Progressing Normal [facility] BASIC METABOLIC PANELon 03-0 Anion gap [Moles/Vol] 14 mmol/L Normal 7-20 [facility] Comment on above: Performed By: #### L [id number] #### [facility] ([facility]) [address] [place] [address] Calcium [Mass/Vol] 8.9 mg/dL Normal 8.6-10.3 [facility] Comment on above: Performed By: #### L [id number] #### [facility] ([facility]) [address] [place] [address] Chloride [Moles/Vol] 105 mmol/L Normal 98-107 [facility] Comment on above: Performed By: #### L [id number] #### [facility] ([facility]) [address] [place] [address] CO2 [Moles/Vol] 22 mmol/L Normal 21-31 [facility] Comment on above: Performed By: #### L [id number] #### [facility] ([facility]) [address] [place] [address] Creatinine [Mass/Vol] 0.60 mg/dL Normal 0.60-1.20 [facility] Comment on above: Performed By: #### L [id number] #### [facility] ([facility]) [address] [place] [address] GLOMERULAR FILTRATION RATE ML/MIN/1.73 SQ M.PREDICTED 123.8 mL/min/1.73m*2 Normal >60.0 [facility] Comment on above: Result Comment: [facility]???s estimated glomerular filtration rate (eGFR) will no [...] individuals. Performed By: #### L [id number] #### [facility] ([facility]) [address] [place] [address] Glucose [Mass/Vol] 85 mg/dL Normal 70-100 [facility] Comment on above: Performed By: #### L [id number] #### [facility] ([facility]) [address] [place] [address] Potassium [Moles/Vol] 4.6 mmol/L Normal 3.5-5.1 [facility] Comment on above: Performed By: #### L [id number] #### [facility] ([facility]) [address] [place] [address] Sodium [Moles/Vol] 136 mmol/L Normal 136-145 [facility] Comment on above: Performed By: #### L [id number] #### [facility] ([facility]) [address] [place] [address] Urea nitrogen [Mass/Vol] 14 mg/dL Normal 7-25 [facility] Comment on above: Performed By: #### L [id number] #### [facility] ([facility]) [address] [place] [address] UREA NITROGEN/CREATININ E (MASS RATIO) IN SER/PLAS 23.3 Normal [facility] Comment on above: Performed By: #### L [id number] #### [facility] ([facility]) [address] [place] [address] CBC WITH AUTO DIFFERENTIALon 01-04-2025 Basophils (Bld) [#/Vol] 0.04 10*3/uL Normal 0.00-0.20 [facility] Comment on above: Performed By: #### L [id number] #### [facility] ([facility]) [address] [place] [address] Basophils/100 WBC (Bld) 0.8 % Normal 0.0-1.0 [facility] Comment on above: Performed By: #### L [id number] #### [facility] ([facility]) [address] [place] [address] Eosinophils (Bld) [#/Vol] 0.16 10*3/uL Normal 0.00-0.50 [facility] Comment on above: Performed By: #### L [id number] #### [facility] [address] [place] [address] Eosinophils/100 WBC (Bld) 3.3 % Normal 0.0-6.0 [facility] Comment on above: Performed By: #### L [id number] #### [facility] [address] [place] [address] Erythrocyte distribution width (RBC) [Ratio] 13.2 % Normal 11.5-15.0 [facility] Comment on above: Performed By: #### L [id number] #### [facility] ([facility] [address] [place] [address] ERYTHROCYTE MEAN CORPUSCULAR HEMOGLOBIN CONCENTRATION (G/DL) BY AUTOMATED 32.0 g/dL Normal 32.0-35.0 [facility] Comment on above: Performed By: #### L [id number] #### [facility] ([facility]) [address] [place] [address] Hematocrit (Bld) [Volume fraction] 37.5 % Normal 36.0-48.0 [facility] Comment on above: Performed By: #### L [id number] #### [facility] ([facility]) [address] [place] [address] Hemoglobin (Bld) [Mass/Vol] 12.0 g/dL Normal 12.0-15.0 [facility] Comment on above: Performed By: #### L [id number] #### [facility] ([facility]) [address] [place] [address] Immature granulocytes (Bld) [#/Vol] 0.01 10*3/uL Normal 0.00-0.20 [facility] Comment on above: Performed By: #### L [id number] #### [facility] ([facility]) [address] [place] [address] Immature granulocytes/100 WBC (Bld) 0.2 % Normal 0.0-1.0 [facility] Comment on above: Performed By: #### L [id number] #### [facility] ([facility]) [address] [place] [address] Lymphocytes (Bld) [#/Vol] 1.50 10*3/uL Normal 1.20-4.00 [facility] Comment on above: Performed By: #### L [id number] #### [facility] ([facility]) [address] [place] [address] Lymphocytes/100 WBC (Bld) 31.1 % Normal 20.0-45.0 [facility] Comment on above: Performed By: #### L [id number] #### [facility] ([facility]) [address] [place] [address] MCH (RBC) [Entitic mass] 27.0 pg Normal 27.0-33.0 [facility] Comment on above: Performed By: #### L [id number] #### [facility] ([facility]) [address] [place] [address] MCV (RBC) [Entitic vol] 84.3 fL Normal 82.0-98.0 [facility] Comment on above: Performed By: #### L [id number] #### [facility] ([facility]) [address] [place] [address] Monocytes (Bld) [#/Vol] 0.55 10*3/uL Normal 0.10-1.00 [facility] Comment on above: Performed By: #### L [id number] #### [facility] ([facility]) [address] [place] [address] Monocytes/100 WBC (Bld) 11.4 % Normal 5.0-12.0 [facility] Comment on above: Performed By: #### L [id number] #### [facility] ([facility]) [address] [place] [address] Neutrophils (Bld) [#/Vol] 2.56 10*3/uL Normal 1.60-7.60 [facility] Comment on above: Performed By: #### L [id number] #### [facility] ([facility]) [address] [address] Neutrophils/100 WBC (Bld) 53.2 % Normal 40.0-72.0 [facility] Comment on above: Performed By: #### L [id number] #### [facility] ([facility]) [address] [place] [address] NRBC (PER 100 WBCS) BY AUTOMATED COUNT 0.0 % Normal 0 [facility] Comment on above: Performed By: #### L [id number] #### [facility] ([facility]) [address] [place] [address] PLATELETS (10*3/UL) IN BLOOD AUTOMATED COUNT 304 10*3/uL Normal 150-400 [facility] Comment on above: Performed By: #### L [id number] #### [facility] ([facility]) [address] [place] [address] RBC (Bld) [#/Vol] 4.45 10*6/uL Normal 3.80-5.00 [facility] Comment on above: Performed By: #### L [id number] #### [facility] ([facility]) [address] [address] WBC (Bld) [#/Vol] 4.82 10*3/uL Normal 4.00-10.60 [facility] Comment on above: Performed By: #### L [id number] #### [facility]) [address] [place] [address] CONSULTon 01-04-2025 CONSULT ------ -- Attestation signed [...] Hernández : 1995 Location: [id number] Attending: Gil Zhagn MD Admit Date: 01/01/2025 Hospital Day: 3 Reason for Consult: Spontaneous pneumothorax HPI: Juliette Hernández is a 29 y.o. female with a past medical history depression and anxiety, history of substance abuse with history of overdose per EMR although patient denies, and alcohol use. Patient presented from [facility] as a direct admission due to spontaneous [...] was discharged home. Yesterday she presented to [facility] again with shortness of breath and chest pain/heaviness. She was found to have spontaneous pneumothorax. Chest tube was placed and she was transferred to [facility] for further management with possible VATS/pleurodesis. Assessment: [...] Leodan Sc (more content not included)... Normal [facility] MAGNESIUMon 01-04-2025 Magnesium [Mass/Vol] 1.9 mg/dL Normal 1.9-2.7 [facility] Comment on above: Performed By: #### L [id number] #### [facility] ([facility]) [address] [place] [address] NURSNOTEon 01-04-2025 NURSNOTE 1630 - Pulmonology t [...] at this time, once xray is completed web content writer to notify MICU to review images for further instruction. 1735 - Patient continues with above symptoms, web content writer remains at bedside awaiting radiology to complete chest xray. 173 - Follow up call placed to xray requesting expediting testing. 174 - Xray to bedside. GAS LINE INSTALLER RN at bedside per lead RN request. [...] understanding. Vitals remain stable as charted. Normal [facility] 30on 01-02-2025 30 The patient is Moder [...] by Tal Alvares RN Outcome: Progressing Normal [facility] 30 The patient is Moder ately Stable [...] and maintained or improved Outcome: Progressing Normal [facility] TOXICOLOGY PANEL URINEon AMPHETAMINE+METHAM PHETAMINE SCREEN (PRESENCE) IN URINE Negative Normal Negative [facility] Comment on above: Performed By: #### L [id number] #### [facility] ([facility]) [address] [place] [address] BARBITURATES PRESENCE IN URINE BY SCREEN METHOD Negative Normal Negative [facility] Comment on above: Performed By: #### L [id number] #### [facility] ([facility]) [address] [place] [address] Benzodiazepines Ql (U) Negative Normal Negative [facility] Comment on above: Performed By: #### L [id number] #### [facility] ([facility]) [address] [place] [address] CANNABINOID (PRESENCE) IN URINE BY SCREEN METHOD Negative Normal Negative [facility] Comment on above: Performed By: #### L [id number] #### [facility] ([facility]) [address] [place] [address] Cocaine Ql (U) Negative Normal Negative [facility] Comment on above: Performed By: #### L [id number] #### [facility] ([facility]) [address] [place] [address] METHADONE (PRESENCE) IN URINE BY SCREEN METHOD Negative Normal Negative [facility] Comment on above: Performed By: #### L [id number] #### [facility] ([facility]) [address] [place] [address] OPIATES (PRESENCE) IN URINE BY SCREEN METHOD Positive Abnormal Negative [facility] Comment on above: Performed By: #### L [id number] #### [facility] ([facility]) [address] [facility] [place] [address] PHENCYCLIDINE PRESENCE IN URINE BY SCREEN METHOD Negative Normal Negative [facility] Comment on above: Performed By: #### L [id number] #### [facility] ([facility]) [address] [facility] [place] [place] [address] Propoxyphene Screen Ql (U) Negative Normal Negative [facility] Comment on above: Performed By: #### L [id number] #### [facility] ([facility]) [address] [place] [address] TRICYCLIC ANTIDEPRESSANTS (PRESENCE) IN URINE Negative Normal Negative [facility] Comment on above: Performed By: #### L [id number] #### [facility] ([facility]) [address] [facility] [place] [address] 30on 01-01-2025 30 The patient is Moder ately Stable - Low risk of patient condition declining or worsening The patient's goals for the shift include COMFORT The clinical goals for the shift include VSS Over the shift, the patient did not make progress toward the following goals. Barriers to progression include. Recommendations to address these barriers include. Normal [facility] 30 The patient is Moder ately Stable [...] and maintained or improved Outcome: Progressing Normal [facility] 30 The patient is Moder ately Unstable - Medium risk of patient condition declining or worsening The patient's goals for the shift include COMFORT The clinical goals for the shift include VSS Normal [facility] CBC WITH AUTO DIFFERENTIALon 01-01-2025 Basophils (Bld) [#/Vol] 0.06 10*3/uL Normal 0.00-0.20 [facility] Comment on above: Performed By: #### L [id number] #### [facility] ([facility]) [address] [place] [address] Basophils/100 WBC (Bld) 1.2 % High 0.0-1.0 [facility] Comment on above: Performed By: #### L [id number] #### [facility] ([facility]) [address] [place] [address] Eosinophils (Bld) [#/Vol] 0.14 10*3/uL Normal 0.00-0.50 [facility] Comment on above: Performed By: #### L [id number] #### [facility] ([facility]) [address] [place] [address] Eosinophils/100 WBC (Bld) 2.8 % Normal 0.0-6.0 [facility] Comment on above: Performed By: #### L [id number] #### [facility] ([facility]) [address] [place] [address] Erythrocyte distribution width (RBC) [Ratio] 13.2 % Normal 11.5-15.0 [facility] Comment on above: Performed By: #### L [id number] #### [facility] ([facility]) [address] [place] [address] ERYTHROCYTE MEAN CORPUSCULAR HEMOGLOBIN CONCENTRATION (G/DL) BY AUTOMATED 32.2 g/dL Normal 32.0-35.0 [facility] Comment on above: Performed By: #### L [id number] #### [facility] ([facility] [address] [place] [address] Hematocrit (Bld) [Volume fraction] 34.5 % Low 36.0-48.0 [facility] Comment on above: Performed By: #### L [id number] #### [facility] ([facility]) [address] [place] [address] Hemoglobin (Bld) [Mass/Vol] 11.1 g/dL Low 12.0-15.0 [facility] Comment on above: Performed By: #### L [id number] #### [facility] ([facility] [address] [facility] [place] [address] Immature granulocytes (Bld) [#/Vol] 0.02 10*3/uL Normal 0.00-0.20 [facility] Comment on above: Performed By: #### L [id number] #### [facility] ([facility]) [address] [place] [address] Immature granulocytes/100 WBC (Bld) 0.4 % Normal 0.0-1.0 [facility] Comment on above: Performed By: #### L [id number] #### [facility] ([facility]) [address] [place] [address] Lymphocytes (Bld) [#/Vol] 1.37 10*3/uL Normal 1.20-4.00 [facility] Comment on above: Performed By: #### L [id number] #### [facility] ([facility]) [address] [place] [address] Lymphocytes/100 WBC (Bld) 27.0 % Normal 20.0-45.0 [facility] Comment on above: Performed By: #### L [id number] #### [facility] ([facility]) [address] [place] [address] MCH (RBC) [Entitic mass] 26.7 pg Low 27.0-33.0 [facility] Comment on above: Performed By: #### L [id number] #### [facility] ([facility]) [address] [place] [address] MCV (RBC) [Entitic vol] 83.1 fL Normal 82.0-98.0 [facility] Comment on above: Performed By: #### L [id number] #### [facility] ([facility]) [address] [place] [address] Monocytes (Bld) [#/Vol] 0.72 10*3/uL Normal 0.10-1.00 [facility] Comment on above: Performed By: #### L [id number] #### [facility] ([facility]) [address] [place] [address] Monocytes/100 WBC (Bld) 14.2 % High 5.0-12.0 [facility] Comment on above: Performed By: #### L [id number] #### [facility] ([facility]) [address] [place] [address] Neutrophils (Bld) [#/Vol] 2.77 10*3/uL Normal 1.60-7.60 [facility] Comment on above: Performed By: #### L [id number] #### [facility] ([facility]) [address] [place] [address] Neutrophils/100 WBC (Bld) 54.4 % Normal 40.0-72.0 [facility] Comment on above: Performed By: #### L [id number] #### [facility] ([facility]) [address] [place] [address] NRBC (PER 100 WBCS) BY AUTOMATED COUNT 0.0 % Normal 0 [facility] Comment on above: Performed By: #### L [id number] #### [facility] ([facility]) [address] [place] [address] PLATELETS (10*3/UL) IN BLOOD AUTOMATED COUNT 290 10*3/uL Normal 150-400 [facility] Comment on above: Performed By: #### L [id number] #### [facility] ([facility]) [address] [place] [address] RBC (Bld) [#/Vol] 4.15 10*6/uL Normal 3.80-5.00 [facility] Comment on above: Performed By: #### L [id number] #### [facility] ([facility]) [address] [place] [address] WBC (Bld) [#/Vol] 5.08 10*3/uL Normal 4.00-10.60 [facility] Comment on above: Performed By: #### L [id number] #### [facility] ([facility]) [address] [place] [address] COMPREHENSIVE METABOLIC PANE Shad 01-01-2025 Albumin [Mass/Vol] 4.0 g/dL Normal 3.5-5.7 [facility] Comment on above: Performed By: #### L [id number] #### [facility] ([facility]) [address] [place] [address] ALP [Catalytic activity/Vol] 65 U/L Normal 34-104 [facility] Comment on above: Performed By: #### L [id number] #### [facility] ([facility]) [address] [place] [address] ALT [Catalytic activity/Vol] 15 U/L Normal 7-52 [facility] Comment on above: Performed By: #### L [id number] #### [facility] ([facility]) [address] [place] [address] Anion gap [Moles/Vol] 9 mmol/L Normal 7-20 [facility] Comment on above: Performed By: #### L [id number] #### [facility] ([facility]) [address] [place] [address] AST [Catalytic activity/Vol] 21 U/L Normal 13-39 [facility] Comment on above: Performed By: #### L [id number] #### [facility] ([facility]) [address] [place] [address] Bilirubin [Mass/Vol] 0.5 mg/dL Normal 0.3-1.0 [facility] Comment on above: Performed By: #### L [id number] #### [facility] ([facility]) [address] [place] [address] Calcium [Mass/Vol] 8.8 mg/dL Normal 8.6-10.3 [facility] Comment on above: Performed By: #### L [id number] #### [facility] ([facility]) [address] [place] [address] Chloride [Moles/Vol] 107 mmol/L Normal 98-107 [facility] Comment on above: Performed By: #### L [id number] #### [facility] ([facility]) [address] [place] [address] CO2 [Moles/Vol] 27 mmol/L Normal 21-31 [facility] Comment on above: Performed By: #### L [id number] #### [facility] ([facility]) [address] [place] [address] Creatinine [Mass/Vol] 0.73 mg/dL Normal 0.60-1.20 [facility] Comment on above: Performed By: #### L [id number] #### [facility] ([facility]) [address] [place] [address] GLOMERULAR FILTRATION RATE ML/MIN/1.73 SQ M.PREDICTED 113.4 mL/min/1.73m*2 Normal >60.0 [facility] Comment on above: Result Comment: [facility]???s estimated glomerular filtration rate (eGFR) will no [...] individuals. Performed By: #### L [id number] #### [facility] ([facility]) [address] [place] [address] Glucose [Mass/Vol] 99 mg/dL Normal 70-100 [facility] Comment on above: Performed By: #### L [id number] #### [facility] ([facility]) [address] [place] [address] Potassium [Moles/Vol] 4.1 mmol/L Normal 3.5-5.1 [facility] Comment on above: Performed By: #### L [id number] #### [facility] ([facility]) [address] [place] [address] Protein [Mass/Vol] 6.6 g/dL Normal 6.0-8.3 [facility] Comment on above: Performed By: #### L [id number] #### [facility] ([facility]) [address] [place] [address] Sodium [Moles/Vol] 139 mmol/L Normal 136-145 [facility] Comment on above: Performed By: #### L [id number] #### [facility] ([facility]) [address] [place] [address] Urea nitrogen [Mass/Vol] 19 mg/dL Normal 7-25 [facility] Comment on above: Performed By: #### L [id number] #### [facility] ([facility]) [address] [place] [address] UREA NITROGEN/CREATININ E (MASS RATIO) IN SER/PLAS 26.0 Normal [facility] Comment on above: Performed By: #### L [id number] #### [facility] ([facility]) [address] [place] [address] CONSULTon 01-01-2025 CONSULT Inpatient consult to Cardiothoracic [...] records. She presenting as direct admission to [facility] early this morning, transferred from [facility]. Upon presentation to [facility], she complained of right sided chest pain [...] tube was placed. She was transferred to [facility] for surgical evaluation for possible VATS with [...] not hav (more content not included)... Normal [facility] FERRITINon 01-01-2025 FERRITIN (NG/ML) IN SER/PLAS 25.0 ng/mL Normal 11.0-307.0 [facility] Comment on above: Performed By: #### L [id number] #### [facility] ([employer]) [address] [place] [address] FOLATEon 01-01-2025 FOLATE (NG/ML) IN SER/PLAS 17.34 ng/mL Normal 6.6-1000 [facility] Comment on above: Performed By: #### L [id number] #### [facility] ([facility]) [address] [facility] [address] IRON AND TIBCon 01-01-2025 IRON (UG/DL) IN SER/PLAS 53 ug/dL Normal 50-212 [facility] Comment on above: Performed By: #### L [id number] #### [facility] ([facility]) [address] [place] [address] IRON BINDING CAPACITY (UG/DL) IN SER/PLAS 378 ug/dL Normal 250-450 [facility] Comment on above: Performed By: #### L [id number] #### [facility] ([facility]) [address] [place] [address] IRON BINDING CAPACITY.UNSATURAT ED (UG/DL) IN SER/PLAS 325.0 ug/dL Normal 155.0-355.0 [facility] Comment on above: Performed By: #### L [id number] #### [facility] [address] [place] [address] IRON SATURATION (%) IN SER/PLAS 14 % Low 20-50 [facility] Comment on above: Performed By: #### L [id number] #### [facility] ([facility]) [address] [place] [address] TSH3 REFLEX TO FT4on 025 THYROTROPIN (MIU/L) IN SER/PLAS BY DETECTION LIMIT <= 0.05 MIU/L 2.68 mIU/L Normal 0.34-5.60 [facility] Comment on above: Performed By: #### L [id number] #### [facility] [address] [facility] [place] [address] VITAMIN B12on 01-01-2025 Cobalamin (Vitamin B12) [Mass/Vol] 299 pg/mL Normal 180-914 [facility] Comment on above: Result Comment: REFE RENCE RANGES: 180-914 pg/mL Normal 145-179 pg/mL Indeterminate <145 pg/mL Deficient Performed By: #### L [id number] #### [facility] ([facility] [address] [place] [address] HCV RNA,Quant,PCRon 12-11-19 25 HCV RNA,Quant Not detected Normal NOTDET [facility] Comment on above: Result Comment: INTERPRETIVE [...] Performed By: #### U JERRY REBOLLEDO #### [address] [place] [address] Dj Instructor: Adonis Thomas MD CBCon 12-08-2024 Erythrocyte distribution width (RBC) [Ratio] 13.1 % Normal 11.8-14.[address] [facility] Comment on above: Performed By: #### W P #### [address] [place] [address] Dj Instructor: Adonis Thomas MD Hematocrit (Bld) [Volume fraction] 33.8 % Low 36.3-47.[address] [facility] Comment on above: Performed By: #### W P #### [address] [place] [address] Dj Instructor: Adonis Thomas MD Hemoglobin (Bld) [Mass/Vol] 10.9 g/dL Low 11.9-15.[address] [facility] Comment on above: Performed By: #### W P #### [address] [place] [address] Dj Instructor: Adonis Thomas MD MCH (RBC) [Entitic mass] 27.0 pg Normal 25.2-33.[address] [facility] Comment on above: Performed By: #### W P #### [address] [place], [place] [id number] Dj Instructor: Adonis Thomas MD MCHC (RBC) [Mass/Vol] 32.2 g/dL Normal 28.4-34.[address] [facility] Comment on above: Performed By: #### W P #### [address] [place] [id number] Dj Instructor: Adonis Thomas MD MCV (RBC) [Entitic vol] 83.9 fL Normal 82.6-102.[address] [facility] Comment on above: Performed By: #### W P #### [address] [place] [id number] Dj Instructor: Adonis Thomas MD Platelet mean volume (Bld) [Entitic vol] 9.8 fL Normal 8.1-13.[address] [facility] Comment on above: Performed By: #### W P #### [address] [place], [place] [id number] Dj Instructor: Adonis Thomas MD Platelets (Bld) [#/Vol] 332 10*3/uL Normal 138-[address] [facility] Comment on above: Performed By: #### W P #### [address] [place], [id number] Dj Instructor: Adonis Thomas MD RBC (Bld) [#/Vol] 4.03 10*6/uL Normal 3.95-5.11 [facility] Comment on above: Performed By: #### W P #### [address] [place] [address] Dj Instructor: Adonis Thomas MD Interpretation and review of laboratory results Abnormal [facility] Nucleated RBC/100 WBC (Bld) [Ratio] 0.0 % 0.0 per [address] [facility] WBC other (Bld) [#/Vol] 4.8 [facility] NRBC Automated 0.0 per 100 WBC Normal 0.0 [facility] Comment on above: Performed By: #### W P #### [facility] [address] [place], [place] [id number] Dj Instructor: Adonis Thomas MD WBC (Bld) [#/Vol] 4.8 10*3/uL Normal 3.5-11.3 [facility] Comment on above: Performed By: #### W P #### [facility] [address] [place] [address] Dj Instructor: Adonis Thomas MD Comp Metabolic Profon 2024 Albumin [Mass/Vol] 4.0 g/dL Normal 3.5-5.2 [facility] Comment on above: Performed By: #### W P #### [facility] [address] [place], [place] [id number] Dj Instructor: Adonis Thomas MD Albumin/Glob Ratio 1.6 Normal 1.0-2.5 [facility] Comment on above: Performed By: #### W P #### [facility] [address] [place], [place] [id number] Dj Instructor: Adonis Thomas MD Alkaline Phos 65 U/L Normal 35-104 [facility] Comment on above: Performed By: #### W P #### [facility] [address] [place], [place] [id number] Dj Instructor: Adonis Thomas MD ALT [Catalytic activity/Vol] 28 U/L Normal 10-35 [facility] Comment on above: Performed By: #### W P #### [facility] [address] [place] [address] Dj Instructor: Adonis Thomas MD Anion gap [Moles/Vol] 10 mmol/L Normal 9-16 [facility] Comment on above: Performed By: #### W P #### [facility] [address] [place], [place] [id number] Dj Instructor: Adonis Thomas MD AST [Catalytic activity/Vol] 27 U/L Normal 10-35 [facility] Comment on above: Performed By: #### W P #### [facility] [address] [place] [address] Dj Instructor: Adonis Thomas MD Bilirubin [Mass/Vol] mg/dL Normal 0.00-1.20 [facility] Comment on above: Performed By: #### W P #### [facility] [address] [place] [address] Dj Instructor: Adonis Thomas MD BUN/CRE Ratio 28 High 9-20 [facility] Comment on above: Performed By: #### W P #### [facility] [address] [place] [address] Dj Instructor: Adonis Thomas MD Calcium [Mass/Vol] 9.0 mg/dL Normal 8.6-10.4 [facility] Comment on above: Performed By: #### W P #### [facility] [address] [place] [address] Dj Instructor: Adonis Thomas MD Chloride [Moles/Vol] 102 mmol/L Normal 98-107 [facility] Comment on above: Performed By: #### W P #### [facility] [address] [place] [address] Dj Instructor: Adonis Thomas MD CO2 [Moles/Vol] 28 mmol/L Normal 20-31 [facility] Comment on above: Performed By: #### W P #### [facility] [address] [place] [address] Dj Instructor: Adonis Thomas MD Creatinine [Mass/Vol] 0.6 mg/dL Normal 0.50-0.90 [facility] Comment on above: Performed By: #### W P #### [facility] [address] [place], [place] [id number] Dj Instructor: Adonis Thomas MD GFR/1.73 sq M.predicted among non-blacks MDRD (S/P/Bld) [Vol rate/Area] mL/min/{1.73_m2} Normal >60 [facility] Comment on above: Result Comment: These [...] secretion. Performed By: #### W P #### [facility] [address] [place] [address] Dr[place], [place] [id number] Dj Instructor: Adonis Thomas MD Glucose [Mass/Vol] 105 mg/dL High 74-99 [facility] Comment on above: Performed By: #### W P #### [address] [place], [place] [id number] Dj Instructor: Adonis Thomas MD Potassium [Moles/Vol] 4.1 mmol/L Normal 3.7-5.3 [facility] Comment on above: Performed By: #### W P #### [facility] [address] [place], [place] [id number] Dj Instructor: Adonis Thomas MD Protein [Mass/Vol] 6.5 g/dL Low 6.6-8.7 [facility] Comment on above: Performed By: #### W P #### [facility] [address] [place] [address] Dj Instructor: Adonis Thomas MD Sodium [Moles/Vol] 140 mmol/L Normal 136-145 [facility] Comment on above: Performed By: #### W P #### [facility] [address] [place] [address] Dj Instructor: Adonis Thomas MD Urea nitrogen [Mass/Vol] 17 mg/dL Normal 6-20 [facility] Comment on above: Performed By: #### W P #### [facility] [address] [place] [address] Dj Instructor: Adonis Thomas MD Comprehensive Metabolic Pane [facility] 12-08-2024 Albumin [Mass/Vol] 4.0 g/dL 3.5 - 5.2 g/dL [facility] Albumin/Globulin [Mass ratio] 1.6 {ratio} 1.0 - 2.[address] [facility] ALP [Catalytic activity/Vol] 65 U/L 35 - 104 U/L [facility] ALT [Catalytic activity/Vol] 28 U/L 10 - 35 U/L [facility] Anion gap [Moles/Vol] 10 mmol/L 9 - 16 mmol/L [facility] AST [Catalytic activity/Vol] 27 U/L 10 - 35 U/L [facility] Bilirubin [Mass/Vol] mg/dL 0.00 - 1.20 mg/dL [facility] Calcium [Mass/Vol] 9.0 mg/dL 8.6 - 10. 4 mg/dL [facility] Chloride [Moles/Vol] 102 mmol/L 98 - 107 mmol/L [facility] CO2 [Moles/Vol] 28 mmol/L 20 - 31 mmol/L [facility] Creatinine [Mass/Vol] 0.6 mg/dL 0.50 - 0.90 mg/dL [facility] Est, Glom Filt Rate - PINF [facility] Comment on above: These results are [...] 105 mg/dL High 74 - 99 mg/dL [facility] Interpretation and review of laboratory results Abnormal [facility] Potassium [Moles/Vol] 4.1 mmol/L 3.7 - 5.3 mmol/L [facility] Protein [Mass/Vol] 6.5 g/dL Low 6.6 - 8.7 g/dL [facility] Sodium [Moles/Vol] 140 mmol/L 136 - 145 mmol/L [facility] Urea nitrogen [Mass/Vol] 17 mg/dL 6 - 20 mg/dL [facility] Urea nitrogen/Creatinin e [Mass ratio] 28 mg/mg High 9 - 20 [facility] HCG Qualitative, Serumon HCG ( test) Ql Negative NEGATIVE [facility] Comment on above: Specimens with hCG l evels near the threshold of the test (25 mIU/mL) may give a negative or indeterminate result. In such cases, another test should be performed with a new specimen in 48-72 hours. If early is suspected clinically in this setting, correlation with quantitative serum b-hCG level is suggested. [facility] has confirmed the use of plasma for this test. This has not been cleared or approved by the U.S. Food and Drug Administration. The FDA has determined that such clearance is not necessary. [facility] HCG Screen, Bloodon 12-08-19 25 HCG Screen, Blood Negative Normal NEG [facility] Comment on above: Result Comment: Spec imens with hCG levels near the threshold of the test (25 mIU/mL) may give a negative or indeterminate result. In such cases, another test should be performed with a new specimen in 48-72 hours. If early is suspected clinically in this setting, correlation with quantitative serum b-hCG level is suggested. [facility] has confirmed the use of plasma for this test. This has not been cleared or approved by the U.S. Food and Drug Administration. The FDA has determined that such clearance is not necessary. Performed By: #### W P #### [facility] [address] [place] [address] Dr[place], [place] [id number] Dj Instructor: Adonis Thomas MD HCV RNA,Quant,PCRon 12-08-19 25 Source .PLASMA Normal [facility] Comment on above: Performed By: #### U KESHA, UAX #### [facility] [address] [place] [address] [place] [address] Dj Instructor: Adonis Thomas MD HIV Ag/Abon 12-08-2024 HIV Ag/Ab Non-Reactive Normal NR [facility] Comment on above: Result Comment: No l aboratory evidence of HIV infection. If acute HIV infection is suspected, consider testing for HIV-1 RNA. Performed By: #### W P #### [address] [place], [place] [id number] Dj Instructor: Adonis Thomas MD HIV Screenon 12-08-2024 HIV 1+2 Ab+HIV1 p24 Ag IA Ql Non-Reactive NONREACTIVE [facility] Comment on above: No laboratory eviden ce of HIV infection. If acute HIV infection is suspected, consider testing for HIV-[address] [facility] Hep B Surf Abon 12-08-2024 Hep B Surf Ab <3.50 Normal <10 [facility] Comment on above: Result Comment: REFERENCE RANGE: <10.0 NON-REACTIVE/NOT IMMUNE >=10.0 REACTIVE/IMMUNE Performed By: #### W P #### [address] [place] [address] Dj Instructor: Adonis Thomas MD Hepatitis Acute [facility] 12-08 Hep A Ab,IgM Non-Reactive Normal NR [facility] Comment on above: Performed By: #### W P #### [address] [place], [place] [id number] Dj Instructor: Adonis Thomas MD Hep B Core Ab,IgM Non-Reactive Normal NR [facility] Comment on above: Performed By: #### W P #### [facility] [address] [place] [address] [place] [address] Dj Instructor: Adonis Thomas MD Hep B Surf Ag Non-Reactive Normal [facility] Comment on above: Performed By: #### W P #### [address] [place] [address] Dj Instructor: Adonis Thomas MD Hep C Ab Non-Reactive Normal [facility] Comment on above: Result Comment: The hepatitis [...] PCR. Performed By: #### W P #### [address] [place], [place] [id number] Dj Instructor: Adonis Thomas MD Hepatitis B Surface Antibody on 12-08-2024 HBV surface Ab IA [facility]n [facility]IU[facility] Comment on above: REFERENCE RANGE: <10.0 NON-REACTIVE/NOT IMMUNE >=10.0 REACTIVE/IMMUNE Hepatitis Panel, Acuteon HAV IgM IA Ql Non-Reactive NONREACTIVE [facility] HBV core IgM IA Ql Non-Reactive NONREACTIVE [facility] HBV surface Ag IA Ql Non-Reactive NONREACTIVE [facility] HCV Ab IA Ql Non-Reactive NONREACTIVE [facility] Comment on above: The hepatitis C procedure [...] RNA by PCR. No Panel Informationon 12-[address] [facility] T. pallidum Abon 12-08-2024 T. pallidum Ab IA Ql (S) Non-Reactive NONREACTIVE [facility] Comment on above: T. pallidum antibodies are not detected. There is no serological evidence of infection with T. pallidum (early primary syphilis cannot be excluded). Retest in 2-4 weeks if syphilis is clinically suspect. [facility] T.pallidum Ab Screenon 12-08 T.pallidum Ab Screen Non-Reactive Normal NR [facility] Comment on above: Result Comment: T. pallidum antibodies are not detected. There is no serological evidence of infection with T. pallidum (early primary syphilis cannot be excluded). Retest in 2-4 weeks if syphilis is clinically suspect. Performed By: #### U MICAO, UAX #### [facility] [address] [place] [address] Dj Instructor: Adonis Thomas MD Chlamydia/GC,DNA Ampon 12-07 Chlamydia Probe Negative Normal NEG [facility] Comment on above: Result Comment: CHLA [...] target. Performed By: #### S WCGP #### [facility] [address] [place] [address] Dj Instructor: Perry Marte MD Gonorrhea Probe Negative Normal NEG [facility] Comment on above: Result Comment: NEIS [...] target. Performed By: #### S WCGP #### [facility] [place], [place] [id number] Dj Instructor: Perry Marte MD Trichomonas/Wet Prepon 12-04 Trichomonas/Wet Prep Specimen Description .VAGINAL SPECIMEN Direct Exam YEAST PRESENT CLUE CELLS SEEN NO TRICHOMONAS SEEN Report Status FINAL 12/04/2024 Normal [facility] Comment on above: Performed By: #### W P #### [facility] [address] [place], [place] [id number] Dj Instructor: Adonis Thomas MD Wet prep, genitalon 12-04-19 25 Microorganism or agent identified Nom (Unsp spec) YEAST PRESENT [facility] Microorganism or agent identified Nom (Unsp spec) CLUE CELLS SEEN [facility] Microorganism or agent identified Nom (Unsp spec) NO TRICHOMONAS SEEN [facility] Specimen Description .VAGINAL SPECIMEN [facility] CBCon 10-14-2024 Erythrocyte distribution width (RBC) [Ratio] 13.8 % Normal 11.8-14.4 [facility] Comment on above: Performed By: #### S WCGP #### [address] [address] Dj Instructor: Perry Marte MD Hematocrit (Bld) [Volume fraction] 36.1 % Low 36.3-47.1 [facility] Comment on above: Performed By: #### S WCGP #### [address] [address] Dj Instructor: Perry Marte MD Hemoglobin (Bld) [Mass/Vol] 11.6 g/dL Low 11.9-15.1 [facility] Comment on above: Performed By: #### S WCGP #### [facility] [address] [place] [address] Dj Instructor: Perry Marte MD MCH (RBC) [Entitic mass] 28.0 pg Normal 25.2-33.5 [facility] Comment on above: Performed By: #### S WCGP #### [address] [address] Dj Instructor: Perry Marte MD MCHC (RBC) [Mass/Vol] 32.1 g/dL Normal 28.4-34.8 [facility] Comment on above: Performed By: #### S WCGP #### [address] [address] Dj Instructor: Perry Marte MD MCV (RBC) [Entitic vol] 87.0 fL Normal 82.6-102.9 [facility] Comment on above: Performed By: #### S WCGP #### [address] [address] Dj Instructor: Perry Marte MD NRBC Automated 0.0 per 100 WBC Normal 0.0 [facility] Comment on above: Performed By: #### S WCGP #### [address] [address] Dj Instructor: Perry Marte MD Platelet mean volume (Bld) [Entitic vol] 9.9 fL Normal 8.1-13.5 [facility] Comment on above: Performed By: #### S WCGP #### [address] [address] Dj Instructor: Perry Marte MD Platelets (Bld) [#/Vol] 312 10*3/uL Normal 138-453 [facility] Comment on above: Performed By: #### S WCGP #### [address] [address] Dj Instructor: Perry Marte MD RBC (Bld) [#/Vol] 4.15 10*6/uL Normal 3.95-5.11 [facility] Comment on above: Performed By: #### S WCGP #### [address] [address] Dj Instructor: Perry Marte MD WBC (Bld) [#/Vol] 6.3 10*3/uL Normal 3.5-11.3 [facility] Comment on above: Performed By: #### S WCGP #### [place] [address] [place] [address] Dj Instructor: Perry Marte MD Comp Metabolic Profon 2023 Albumin [Mass/Vol] 4.5 g/dL Normal 3.5-5.2 [facility] Comment on above: Performed By: #### S WCGP #### [address] [address] Dj Instructor: Perry Marte MD Albumin/Glob Ratio 1.7 Normal 1.0-2.5 [facility] Comment on above: Performed By: #### S WCGP #### [address] [address] Dj Instructor: Perry Marte MD Alkaline Phos 86 U/L Normal 35-104 [facility] Comment on above: Performed By: #### S WCGP #### [address] [address] Dj Instructor: Perry Marte MD ALT [Catalytic activity/Vol] 19 U/L Normal 10-35 [facility] Comment on above: Performed By: #### S WCGP #### [address] [address] Dj Instructor: Perry Marte MD Anion gap [Moles/Vol] 11 mmol/L Normal 9-16 [facility] Comment on above: Performed By: #### S WCGP #### [facility] [address] [place] [address] Dj Instructor: Perry Marte MD AST [Catalytic activity/Vol] 19 U/L Normal 10-35 [facility] Comment on above: Performed By: #### S WCGP #### [facility] [address] [place] [address] Dj Instructor: Perry Marte MD Bilirubin [Mass/Vol] mg/dL Normal 0.00-1.20 [facility] Comment on above: Performed By: #### S WCGP #### [facility] [place] [address] Dj Instructor: Perry Marte MD BUN/CRE Ratio 23 High 9-20 [facility] Comment on above: Performed By: #### S WCGP #### [place] [address] [place] [address] Dj Instructor: Perry Marte MD Calcium [Mass/Vol] 9.4 mg/dL Normal 8.6-10.4 [facility] Comment on above: Performed By: #### S WCGP #### [address] [address] Dj Instructor: Perry Marte MD Chloride [Moles/Vol] 101 mmol/L Normal 98-107 [facility] Comment on above: Performed By: #### S WCGP #### [address] [address] Dj Instructor: Perry Marte MD CO2 [Moles/Vol] 26 mmol/L Normal 20-31 [facility] Comment on above: Performed By: #### S WCGP #### [address] [address] Dj Instructor: Perry Marte MD Creatinine [Mass/Vol] 0.7 mg/dL Normal 0.50-0.90 [facility] Comment on above: Performed By: #### S WCGP #### [address] [address] Dj Instructor: Perry Marte MD GFR/1.73 sq M.predicted among non-blacks MDRD (S/P/Bld) [Vol rate/Area] mL/min/{1.73_m2} Normal >60 [facility] Comment on above: Result Comment: These [...] secretion. Performed By: #### S WCGP #### [address] [address] Dj Instructor: Perry Marte MD Glucose [Mass/Vol] 94 mg/dL Normal 74-99 [facility] Comment on above: Performed By: #### S WCGP #### [address] [address] Dj Instructor: Perry Marte MD Potassium [Moles/Vol] 4.0 mmol/L Normal 3.7-5.3 [facility] Comment on above: Performed By: #### S WCGP #### [address] [address] Dj Instructor: Perry Marte MD Protein [Mass/Vol] 7.1 g/dL Normal 6.6-8.7 [facility] Comment on above: Performed By: #### S WCGP #### [address] [address] Dj Instructor: Perry Marte MD Sodium [Moles/Vol] 138 mmol/L Normal 136-145 [facility] Comment on above: Performed By: #### S WCGP #### [address] [address] Dj Instructor: Perry Marte MD Urea nitrogen [Mass/Vol] 16 mg/dL Normal 6-20 [facility] Comment on above: Performed By: #### S WCGP #### [address] [address] Dj Instructor: Perry Marte MD HCG Screen, Bloodon 10-14-20 24 HCG Screen, Blood Negative Normal NEG [facility] Comment on above: Result Comment: Spec imens with hCG levels near the threshold of the test (25 mIU/mL) may give a negative or indeterminate result. In such cases, another test should be performed with a new specimen in 48-72 hours. If early is suspected clinically in this setting, correlation with quantitative serum b-hCG level is suggested. [facility] has confirmed the use of plasma for this test. This has not been cleared or approved by the [place].S. Food and Drug Administration. The FDA has determined that such clearance is not necessary. Performed By: #### S WCGP #### [address] [address] Dj Instructor: Perry Marte MD HIV Ag/Abon 10-14-2024 HIV Ag/Ab Non-Reactive Normal [facility] Comment on above: Result Comment: No l aboratory evidence of HIV infection. If acute HIV infection is suspected, consider testing for HIV-1 RNA. Performed By: #### S WCGP #### [address] [address] Dj Instructor: Perry Marte MD Hep B Surf Abo 10-14-2024 Hep B Surf Ab <3.50 Normal <10 [facility] Comment on above: Result Comment: REFERENCE RANGE: <10.0 NON-REACTIVE/NOT IMMUNE >=10.0 REACTIVE/IMMUNE Performed By: #### S WCGP #### [address] [address] Dj Instructor: Perry Marte MD Hepatitis Acute [facility] 10-14 Hep A Ab,IgM Non-Reactive Normal [facility] Comment on above: Performed By: #### S WCGP #### [facility] [address] [place] [address] Dj Instructor: Perry Marte MD Hep B Core Ab,IgM Non-Reactive Normal [facility] Comment on above: Performed By: #### S WCGP #### [facility] [address] [address] Dj Instructor: Perry Marte MD Hep B Surf Ag Non-Reactive Normal [facility] Comment on above: Performed By: #### S WCGP #### [facility] [place], [place] [id number] Dj Instructor: Perry Marte MD Hep C Ab Non-Reactive Normal [facility] Comment on above: Result Comment: The hepatitis [...] PCR. Performed By: #### S WCGP #### [address] [id number] Dj Instructor: Perry Marte MD T.pallidum Ab Screenon 10-14 T.pallidum Ab Screen Non-Reactive Normal [facility] Comment on above: Result Comment: T. pallidum antibodies are not detected. There is no serological evidence of infection with T. pallidum (early primary syphilis cannot be excluded). Retest in 2-4 weeks if syphilis is clinically suspect. Performed By: #### S WCGP #### [address] [id number] Dj Instructor: Perry Marte MD Chlamydia/GC,DNA Ampon 09-29 Chlamydia Probe Negative Normal [facility] Comment on above: Result Comment: [...] target. Performed By: #### S WCGP #### [facility] [address] [place] [address] [id number] Dj Instructor: Perry Marte MD Gonorrhea Probe Negative Normal [facility] Comment on above: Result Comment: [...] target. Performed By: #### S WCGP #### [facility] [address] [place], [place] [id number] Dj Instructor: Perry Marte MD Trichomonas/Wet Prepon 09-28 Trichomonas/Wet Prep Specimen Description .VAGINAL SPECIMEN Direct Exam FEW CLUE CELLS SEEN NO TRICHOMONAS SEEN NO YEAST OBSERVED Report Status FINAL 09/28/2024 Abnormal [facility] Comment on above: Performed By: #### W P #### [facility] [address] [place] [address] Dj Instructor: Adonis Thomas MD Wet prep, genitalon 09-28-20 24 Interpretation and review of laboratory results Abnormal [facility] Microorganism or agent identified Nom (Unsp spec) FEW CLUE CELLS SEEN Abnormal [facility] Microorganism or agent identified Nom (Unsp spec) NO TRICHOMONAS SEEN [facility] Microorganism or agent identified Nom (Unsp spec) NO YEAST OBSERVED [facility] Specimen Description .VAGINAL SPECIMEN [facility] Trichomonas/Wet Prepon 05-26 Trichomonas/Wet Prep Specimen Description .VAGINAL SPECIMEN Direct Exam NO YEAST OBSERVED NO TRICHOMONAS SEEN NO CLUE CELLS SEEN Report Status FINAL 05/26/2024 Normal [facility] Comment on above: Performed By: #### S WCGP #### [facility] [address] [place], [place] [id number] Dj Instructor: Perry Marte MD Wet prep, genitalon 05-26-20 24 Microorganism or agent identified Nom (Unsp spec) NO YEAST OBSERVED [facility] Microorganism or agent identified Nom (Unsp spec) NO TRICHOMONAS SEEN [facility] Microorganism or agent identified Nom (Unsp spec) NO CLUE CELLS SEEN [facility] Specimen Description .VAGINAL SPECIMEN [facility] Chlamydia/GC,DNA Ampon 05-11 Chlamydia Probe Negative Normal NEG [facility] Comment on above: Result Comment: CHLA [...] target. Performed By: #### W P #### [facility] [address] [place] [address] Dj Instructor: Adonis Thomas MD Gonorrhea Probe Negative Normal [facility] Comment on above: Result Comment: [...] target. Performed By: #### W P #### [facility] [address] [place] [address] Dj Instructor: Adonis Thomas MD Trichomonas/Wet Prepon 05-08 Trichomonas/Wet Prep Specimen Description .VAGINAL SPECIMEN Direct Exam MODERATE CLUE CELLS SEEN NO TRICHOMONAS SEEN NO YEAST OBSERVED Report Status FINAL 05/08/2024 Abnormal [facility] Comment on above: Performed By: #### W P #### [facility] [address] [place] [address] Dj Instructor: Adonis Thomas MD UA w/Reflex Cultureon 2023 Bilirubin, SemiQt,Ur Negative Normal NEG [facility] Comment on above: Performed By: #### S WCGP #### [address] [id number] Dj Instructor: Perry Marte MD Blood, Urine TRACE Abnormal NEG [facility] Comment on above: Performed By: #### S WCGP #### [address] [address] Dj Instructor: Perry Marte MD Clarity (U) Clear Normal CLEAR [facility] Comment on above: Performed By: #### S WCGP #### [address] [address] Dj Instructor: Perry Marte MD Color (U) Yellow Normal YEL [facility] Comment on above: Performed By: #### S WCGP #### [address] [address] Dj Instructor: Perry Marte MD Glucose Ql (U) Negative Normal NEG [facility] Comment on above: Performed By: #### S WCGP #### [address] [address] Dj Instructor: Perry Marte MD Ketones Ql (U) Negative Normal NEG [facility] Comment on above: Performed By: #### S WCGP #### [address] [address] Dj Instructor: Perry Marte MD Leukocyte esterase Test strip Ql (U) Negative Normal NEG [facility] Comment on above: Performed By: #### S WCGP #### [address] [address] Dj Instructor: Perry Marte MD Nitrite,Ur Negative Normal NEG [facility] Comment on above: Performed By: #### S WCGP #### [address] [address] Dj Instructor: Perry Marte MD PH,Ur 6.0 Normal 5.0-9.0 [facility] Comment on above: Performed By: #### S WCGP #### [address] [place] [address] Dj Instructor: Perry Marte MD Protein Ql (U) Negative Normal NEG [facility] Comment on above: Performed By: #### S WCGP #### [facility] [address] [place] [address] Dj Instructor: Perry Marte MD Spec. Lockhart,Ur >1.030 High 1.010-1.020 [facility] Comment on above: Performed By: #### S WCGP #### [facility] [address] [place] [address] Dj Instructor: Perry Marte MD Urobilinogen,Ur Normal Normal 0.0-1.0 [facility] Comment on above: Performed By: #### S WCGP #### [address] [address] Dj Instructor: Perry Marte MD Urinalysis,Microon 4 Bacteria 1+ Abnormal NONE [facility] Comment on above: Performed By: #### W P #### [facility] [address] [place] [address] [place] [address] Dj Instructor: Adonis Thomas MD Epithelial cells LM Ql (Urine sed) 5 TO 10 Normal 0-25 [facility] Comment on above: Performed By: #### W P #### [facility] [address] [place] [address] [place] [address] Dj Instructor: Aodnis Thomas MD Urine RBC's 0 TO 2 Normal 0-2 [facility] Comment on above: Performed By: #### W P #### [facility] [address] [place] [address] Dj Instructor: Adonis Thomas MD Urine WBC's 0 TO 2 Normal 0-5 [facility] Comment on above: Performed By: #### W P #### [facility] [address] [place] [address] Dj Instructor: Adonis Thomas MD CBC with Diffon 05-04-2024 Abs. Basophil 0.06 k/uL Normal 0.00-0.20 [facility] Comment on above: Performed By: #### H CG, CDP, CP #### [facility] [address] [place] [address] [place] [address] Dj Instructor: Adonis Thomas MD #### TREP, HIVCMB, PHEP #### [place] [address] Dj Instructor: Perry Marte MD Abs.Imm.Granulocyt e <0.03 Normal 0.00-0.30 [facility] Comment on above: Performed By: #### H CG, CDP, CP #### [address] [place] [phone] ( Dj Instructor: Adonis Thomas MD #### TREP, HIVCMB, PHEP #### [place] [address] Dj Instructor: Perry Marte MD Abs.Neutrophil (Seg) 3.64 k/uL Normal 1.50-8.10 [facility] Comment on above: Performed By: #### H CG, CDP, CP #### [address] [place] [address] Dj Instructor: Adonis Thomas MD #### TREP, HIVCMB, PHEP #### [place] [address] Dj Instructor: Perry Marte MD Basophils/100 WBC (Bld) 1 % Normal 0-2 [facility] Comment on above: Performed By: #### H CG, CDP, CP #### [facility] [address] [place] [address] Dr. [place] [phone] ( Dj Instructor: Adonis Thomas MD #### TREP, HIVCMB, PHEP #### [place] [address] [place], [place] [phone] Dj Instructor: Perry Marte MD Eosinophils (Bld) [#/Vol] 0.11 10*3/uL Normal 0.00-0.44 [facility] Comment on above: Performed By: #### H CG, CDP, CP #### [facility] [address] [place] [address] Dr. [place] [phone] Dj Instructor: Adonis Thomas MD #### TREP, HIVCMB, PHEP #### [address] [id number] Dj Instructor: Perry Marte MD Eosinophils/100 WBC (Bld) 2 % Normal 1-4 [facility] Comment on above: Performed By: #### H CG, CDP, CP #### [address] [place] [address] Dj Instructor: Adonis Thomas MD #### TREP, HIVCMB, PHEP #### [place] [phone] Dj Instructor: Perry Marte MD Erythrocyte distribution width (RBC) [Ratio] 12.9 % Normal 11.8-14.4 [facility] Comment on above: Performed By: #### H CG, CDP, CP #### [address] [place] [phone] Dj Instructor: Adonis Thomas MD #### TREP, HIVCMB, PHEP #### [address] [id number] Dj Instructor: Perry Marte MD Hematocrit (Bld) [Volume fraction] 34.4 % Low 36.3-47.1 [facility] Comment on above: Performed By: #### H CG, CDP, CP #### [address] [place] [phone] Dj Instructor: Adonis Thomas MD #### TREP, HIVCMB, PHEP #### [address] [phone] Dj Instructor: Perry Marte MD Hemoglobin (Bld) [Mass/Vol] 11.4 g/dL Low 11.9-15.1 [facility] Comment on above: Performed By: #### H KASHIF CDP, CP #### [facility] [address] [place] [address] [place] [phone] Dj Instructor: Adonis Thomas MD #### TREP, HIVCMB, PHEP #### [place] [address] Dj Instructor: Perry Marte MD Immature granulocytes/100 WBC (Bld) 0 % Normal 0 [facility] Comment on above: Performed By: #### H JOSÉ ROWLAND, CP #### [address] [place] [phone] Dj Instructor: Adonis Thomas MD #### TREP, HIVCMB, PHEP #### [place] [phone] Dj Instructor: Perry Marte MD Lymphocytes (Bld) [#/Vol] 1.91 10*3/uL Normal 1.10-3.70 [facility] Comment on above: Performed By: #### H KASHIF CDP, CP #### [address] [place] [phone] Dj Instructor: Adonis Thomas MD #### TREP, HIVCMB, PHEP #### [place] [phone] Dj Instructor: Perry Marte MD Lymphocytes/100 WBC (Bld) 30 % Normal 24-43 [facility] Comment on above: Performed By: #### H JOSÉ ROWLAND, CP #### [facility] [address] [place] [address] Dr. [place] [phone] Dj Instructor: Adonis Thomas MD #### TREP, HIVCMB, PHEP #### [place] [address] [place], [place] 2835108 Dj Instructor: Perry Marte MD MCH (RBC) [Entitic mass] 29.4 pg Normal 25.2-33.5 [facility] Comment on above: Performed By: #### H CG, CDP, CP #### [address] [place] [phone] Dj Instructor: Adonis Thomas MD #### TREP, HIVCMB, PHEP #### [place] [phone] Dj Instructor: Perry Marte MD MCHC (RBC) [Mass/Vol] 33.1 g/dL Normal 28.4-34.8 [facility] Comment on above: Performed By: #### H CG, CDP, CP #### [address] [place] [phone] Dj Instructor: Adonis Thomas MD #### ARMANDO, HIVCMB, PHEP #### [address] [phone] Dj Instructor: Perry Marte MD MCV (RBC) [Entitic vol] 88.7 fL Normal 82.6-102.9 [facility] Comment on above: Performed By: #### H CG, CDP, CP #### [address] [place] [phone] Dj Instructor: Adonis Thomas MD #### TREP, HIVCMB, PHEP #### [place] [address] [place], [place] [phone] Dj Instructor: Perry Marte MD Monocytes (Bld) [#/Vol] 0.55 10*3/uL Normal 0.10-1.20 [facility] Comment on above: Performed By: #### H CG, CDP, CP #### [facility] [address] [place], [place] [phone] Dj Instructor: Adonis Thomas MD #### TREP, HIVCMB, PHEP #### [address] [phone] Dj Instructor: Perry Marte MD Monocytes/100 WBC (Bld) 9 % Normal 3-12 [facility] Comment on above: Performed By: #### H CG, CDP, CP #### [facility] [address] [place], [place] [phone] Dj Instructor: Adonis Thomas MD #### TREP, HIVCMB, PHEP #### [address] [phone] Dj Instructor: Perry Marte MD Neutrophil (Seg) 58 % Normal 36-65 [facility] Comment on above: Performed By: #### H CG, CDP, CP #### [facility] [address] [place], [place] [phone] Dj Instructor: Adonis Thomas MD #### TREP, HIVCMB, PHEP #### [address] [phone] Dj Instructor: Perry Marte MD NRBC Automated 0.0 per 100 WBC Normal 0.0 [facility] Comment on above: Performed By: #### H CG, CDP, CP #### [facility] [address] [place], [place] [phone] Dj Instructor: Adonis Thomas MD #### TREP, HIVCMB, PHEP #### [address] [phone] Dj Instructor: Perry Marte MD Platelet mean volume (Bld) [Entitic vol] 9.6 fL Normal 8.1-13.5 [facility] Comment on above: Performed By: #### H CG, CDP, CP #### [facility] [address] [place] [address] [place] [address] Dj Instructor: Adonis Thomas MD #### TREP, HIVCMB, PHEP #### [address] [address] Dj Instructor: Perry Marte MD Platelets (Bld) [#/Vol] 333 10*3/uL Normal 138-453 [facility] Comment on above: Performed By: #### H CG, CDP, CP #### [facility] [address] [place] [address] [place] [address] Dj Instructor: Adonis Thomas MD #### TREP, HIVCMB, PHEP #### [address] [address] Dj Instructor: Perry Marte MD RBC (Bld) [#/Vol] 3.88 10*6/uL Low 3.95-5.11 [facility] Comment on above: Performed By: #### H CG, CDP, CP #### [facility] [address] [place] [address] [place] [address] Dj Instructor: Adonis Thomas MD #### TREP, HIVCMB, PHEP #### [address] [address] Dj Instructor: Perry Marte MD WBC (Bld) [#/Vol] 6.3 10*3/uL Normal 3.5-11.3 [facility] Comment on above: Performed By: #### H CG, CDP, CP #### [facility] [address] [place] [address] [place] [address] Dj Instructor: Adonis Thomas MD #### TREP, HIVCMB, PHEP #### [address] [address] Dj Instructor: Perry Marte MD Comp Metabolic Profon 2023 Albumin [Mass/Vol] 4.2 g/dL Normal 3.5-5.2 [facility] Comment on above: Performed By: #### H CG, CDP, CP #### [facility] [address] [place], [place] [phone] Dj Instructor: Adonis Thomas MD #### TREP, HIVCMB, PHEP #### [place] [address] [place], [place] [phone] Dj Instructor: Perry Marte MD Albumin/Glob Ratio 1.6 Normal 1.0-2.5 [facility] Comment on above: Performed By: #### H CG, CDP, CP #### [facility] [address] [place], [place] [phone] Dj Instructor: Adonis Thomas MD #### TREP, HIVCMB, PHEP #### [address] [phone] Dj Instructor: Perry Marte MD Alkaline Phos 77 U/L Normal 35-104 [facility] Comment on above: Performed By: #### H CG, CDP, CP #### [facility] [address] [place], [place] [phone] Dj Instructor: Adonis Thomas MD #### TREP, HIVCMB, PHEP #### [place] [address] [place] [address] Dj Instructor: Perry Marte MD ALT [Catalytic activity/Vol] 16 U/L Normal 5-33 [facility] Comment on above: Performed By: #### H CG, CDP, CP #### [facility] [address] [place], [place] [phone] Dj Instructor: Adonis Thomas MD #### TREP, HIVCMB, PHEP #### [address] [phone] Dj Instructor: Perry Marte MD Anion gap [Moles/Vol] 8 mmol/L Low 9-17 [facility] Comment on above: Performed By: #### H CG, CDP, CP #### [facility] [address] [place], [place] [phone] Dj Instructor: Adonis Thomas MD #### TREP, HIVCMB, PHEP #### [address] [id number] Dj Instructor: Perry Marte MD AST [Catalytic activity/Vol] 13 U/L Normal <32 [facility] Comment on above: Performed By: #### H CG, CDP, CP #### [facility] [address] [place], [place] [phone] Dj Instructor: Adonis Thomas MD #### TREP, HIVCMB, PHEP #### [address] [id number] Dj Instructor: Perry Marte MD Bilirubin [Mass/Vol] 0.4 mg/dL Normal 0.3-1.2 [facility] Comment on above: Performed By: #### H CG, CDP, CP #### [facility] [address] [place] [address] Dr. [place], [place] [phone] Dj Instructor: Adonis Thomas MD #### TREP, HIVCMB, PHEP #### [place] [address] [place], [place] [phone] Dj Instructor: Perry Marte MD BUN/CRE Ratio 27 High 9-20 [facility] Comment on above: Performed By: #### H CG, CDP, CP #### [facility] [address] [place], [place] [phone] Dj Instructor: Adonis Thomas MD #### TREP, HIVCMB, PHEP #### [address] [phone] Dj Instructor: Perry Marte MD Calcium [Mass/Vol] 9.0 mg/dL Normal 8.6-10.4 [facility] Comment on above: Performed By: #### H CG, CDP, CP #### [facility] [address] [place], [place] 8693283 Dj Instructor: Adonis Thomas MD #### TREP, HIVCMB, PHEP #### [facility] [address] [place], [place] [phone] Dj Instructor: Perry Marte MD Chloride [Moles/Vol] 104 mmol/L Normal 98-107 [facility] Comment on above: Performed By: #### H CG, CDP, CP #### [facility] [address] [place] [address] [place], [place] [phone] Dj Instructor: Adonis Thomas MD #### TREP, HIVCMB, PHEP #### [place] [address] [place], [place] [phone] Dj Instructor: Perry Marte MD CO2 [Moles/Vol] 29 mmol/L Normal 20-31 [facility] Comment on above: Performed By: #### H CG, CDP, CP #### [facility] [address] [place] [address] [place], [place] [phone] Dj Instructor: Adonis Thomas MD #### TREP, HIVCMB, PHEP #### [facility] [address] [place], [place] [phone] Dj Instructor: Perry Marte MD Creatinine [Mass/Vol] 0.7 mg/dL Normal 0.5-0.9 [facility] Comment on above: Performed By: #### H CG, CDP, CP #### [facility] [address] [place] [address] [place], [place] [phone] Dj Instructor: Adonis Thomas MD #### TREP, HIVCMB, PHEP #### [address] [phone] Dj Instructor: Perry Marte MD GFR/1.73 sq M.predicted among non-blacks MDRD (S/P/Bld) [Vol rate/Area] mL/min/{1.73_m2} Normal >60 [facility] Comment on above: Result Comment: These [...] By: #### H KASHIF, CDP, CP #### [address] [place] [address] Dj Instructor: Adoins Thomas MD #### TREP, HIVCMB, PHEP #### [address] [id number] Dj Instructor: Perry Marte MD Glucose [Mass/Vol] 92 mg/dL Normal 70-99 [facility] Comment on above: Performed By: #### H CG, CDP, CP #### [address] [place] [address] Dj Instructor: Adonis Thomas MD #### TREP, HIVCMB, PHEP #### [address] [id number] Dj Instructor: Perry Marte MD Potassium [Moles/Vol] 3.4 mmol/L Low 3.7-5.3 [facility] Comment on above: Performed By: #### H CG, CDP, CP #### [address] [place] [address] Dj Instructor: Adonis Thomas MD #### TREP, HIVCMB, PHEP #### [address] [place] [address] Dj Instructor: Perry Marte MD Protein [Mass/Vol] 6.9 g/dL Normal 6.4-8.3 [facility] Comment on above: Performed By: #### H CG, CDP, CP #### [facility] [address] [place], [place] [phone] Dj Instructor: Adonis Thomas MD #### TREP, HIVCMB, PHEP #### [place] [address] [place], [place] 1152408 Dj Instructor: Perry Marte MD Sodium [Moles/Vol] 141 mmol/L Normal 135-144 [facility] Comment on above: Performed By: #### H CG, CDP, CP #### [facility] [address] [place] [address] [place], [place] [phone] Dj Instructor: Adonis Thomas MD #### TREP, HIVCMB, PHEP #### [address] [id number] Dj Instructor: Perry Marte MD Urea nitrogen [Mass/Vol] 19 mg/dL Normal 6-20 [facility] Comment on above: Performed By: #### H CG, CDP, CP #### [facility] [address] [place] [address] [place], [place] [phone] Dj Instructor: Adonis Thomas MD #### TREP, HIVCMB, PHEP #### [address] [phone] Dj Instructor: Perry Marte MD HCG Screen, Bloodon 05-04-20 24 HCG Screen, Blood Negative Normal NEG [facility] Comment on above: Result Comment: Spec imens with hCG levels near the threshold of the test (25 mIU/mL) may give a negative or indeterminate result. In such cases, another test should be performed with a new specimen in 48-72 hours. If early is suspected clinically in this setting, correlation with quantitative serum b-hCG level is suggested. [facility] has confirmed the use of plasma for this test. This has not been cleared or approved by the U.[place]. Food and Drug Administration. The FDA has determined that such clearance is not necessary. Performed By: #### H JOSÉ ROWLAND, CP #### [address] [place], [place] [phone] Dj Instructor: Adonis Thomas MD #### TREP, HIVCMB, PHEP #### [address] [id number] Dj Instructor: Perry Marte MD HIV Ag/Abon 05-04-2024 HIV Ag/Ab Non-Reactive Normal [facility] Comment on above: Result Comment: No l aboratory evidence of HIV infection. If acute HIV infection is suspected, consider testing for HIV-1 RNA. Performed By: #### H JOSÉ ROWLAND, CP #### [address] [place], [place] [phone] Dj Instructor: Adonis Thomas MD #### TREP, HIVCMB, PHEP #### [address] [id number] Dj Instructor: Perry Marte MD Hepatitis Acute [facility] 05-04 Hep A Ab,IgM Non-Reactive Normal [facility] Comment on above: Performed By: #### H JOSÉ ROWLAND, CP #### [address] [place], [place] [phone] Dj Instructor: Adonis Thomas MD #### TREP, HIVCMB, PHEP #### [place] [address] [place] [address] Dj Instructor: Perry Marte MD Hep B Core Ab,IgM Non-Reactive Normal [facility] Comment on above: Performed By: #### H JOSÉ ROWLAND, CP #### [address] [place] [address] Dj Instructor: Adonis Thomas MD #### TREP, HIVCMB, PHEP #### [facility] [place], [place] [phone] Dj Instructor: Perry Mrate MD Hep B Surf Ag Non-Reactive Normal [facility] Comment on above: Performed By: #### H CG, CDP, CP #### [address] [place] [address] Dj Instructor: Adonis Thomas MD #### TREP, HIVCMB, PHEP #### [address] [phone] Dj Instructor: Perry Marte MD Hep C Ab Non-Reactive Normal [facility] Comment on above: Result Comment: The hepatitis [...] By: #### H JOSÉ ROWLAND, CP #### [address] [place] [address] Dj Instructor: Adonis Thomas MD #### TREP, HIVCMB, PHEP #### [facility] [address] [place] [address] [id number] Dj Instructor: Perry Marte MD T.pallidum Ab Screenon 05-04 T.pallidum Ab Screen Non-Reactive Normal [facility] Comment on above: Result Comment: T. pallidum antibodies are not detected. There is no serological evidence of infection with T. pallidum (early primary syphilis cannot be excluded). Retest in 2-4 weeks if syphilis is clinically suspect. Performed By: #### S WCGP #### [address] [id number] Dj Instructor: Perry Marte MD UA w/Reflex Cultureon 2023 Bilirubin, SemiQt,Ur Negative Normal NEG [facility] Comment on above: Performed By: #### U MICAO, UAX #### [facility] [address] [place], [place] [phone] Dj Instructor: Adonis Thomas MD Blood, Urine 2+ Abnormal NEG [facility] Comment on above: Performed By: #### U MICAO, UAX #### [facility] [address] [place] [address] Dj Instructor: Adonis Thomas MD Clarity (U) Clear Normal CLEAR [facility] Comment on above: Performed By: #### U MICAO, UAX #### [facility] [address] [place], [place] [phone] Dj Instructor: Adonis Thomas MD Color (U) Yellow Normal YEL [facility] Comment on above: Performed By: #### U MICAO, UAX #### [facility] [address] [place] [address] Dj Instructor: Adonis Thomas MD Glucose Ql (U) Negative Normal NEG [facility] Comment on above: Performed By: #### U MICAO, UAX #### [facility] [address] [place] [address] [place] [address] Dj Instructor: Adonis Thomas MD Ketones Ql (U) Negative Normal NEG [facility] Comment on above: Performed By: #### U MICAO, UAX #### [facility] [address] [place], [place] [phone] Dj Instructor: Adonis Thomas MD Leukocyte esterase Test strip Ql (U) Negative Normal NEG [facility] Comment on above: Performed By: #### U MICAO, UAX #### [facility] [address] [place], [place] [phone] Dj Instructor: Adonis Thomas MD Nitrite,Ur Negative Normal NEG [facility] Comment on above: Performed By: #### U MICAO, UAX #### [facility] [address] [place] [address] [place] [address] Dj Instructor: Adonis Thomas MD PH,Ur 6.0 Normal 5.0-9.0 [facility] Comment on above: Performed By: #### U MICAO, UAX #### [address] [place], [place] [address] Dj Instructor: Adonis Thomas MD Protein Ql (U) Negative Normal NEG [facility] Comment on above: Performed By: #### U MICAO, UAX #### [address] [place], [facility] Dj Instructor: Adonis Thomas MD Spec. Lockhart,Ur >1.030 High 1.010-1.020 [facility] Comment on above: Performed By: #### U MICAO, UAX #### [address] [place], [place] [phone] Dj Instructor: Adonis Thomas MD Urobilinogen,Ur Normal Normal 0.0-1.0 [facility] Comment on above: Performed By: #### U MICAO, UAX #### [address] [place], [place] [address] Dj Instructor: Adonis Thomas MD Urinalysis,Microon 4 Bacteria 1+ Abnormal NONE [facility] Comment on above: Performed By: #### U MICAO, UAX #### [address] [place], [facility]83 Dj Instructor: Adonis Thomas MD Epithelial cells LM Ql (Urine sed) 10 TO 20 Normal 0-25 [facility] Comment on above: Performed By: #### U MICAO, UAX #### [address] [place], [facility] Dj Instructor: Adonis Thomas MD Urine RBC's 2 TO 5 Normal 0-2 [facility] Comment on above: Performed By: #### U WALDEMARO, UAX #### [facility] [address] [place] [address] Dj Instructor: Adonis Thomas MD Urine WBC's 0 TO 2 Normal 0-5 [facility] Comment on above: Performed By: #### U WALDEMARO, UAX #### [facility] [address] [place] [address] Dj Instructor: Adonis Thomas MD C. trachomatis and N. gonorr hoeae DNA JOSE R+probe Nom (Unsp spec)on 02-21-2024 C. trachomatis rRNA JOSE R+probe Ql (Unsp spec) Negative Normal Negative [facility] Comment on above: Order Comment: The [...] By: #### 3 6903-3 #### RONAL Gerber ([id number]) [facility] ([facility]) [address] [place], [place] [id number] N. gonorrhoeae DNA Probe+sig amp Ql (Unsp spec) Negative Normal Negative [facility] Comment on above: Order Comment: The [...] By: #### 3 6903-3 #### RONAL Gerber ([id number]) [facility] ([facility]) [address] [place] [id number] Trichomonas vaginalis rRNAon 02-21-2024 T. vaginalis rRNA JOSE R+probe Ql (Unsp spec) Positive Abnormal Negative, Invalid, TRICH neg [facility] Comment on above: Order Comment: The A PTIMA Trichomonas vaginalis assay is FDA-approved for testing on female endocervical swabs, vaginal swabs, and ThinPrep liquid pap samples. Performance characteristics for Trichomonas vaginalis on specific [id number] sample types (female and male urine and male urethral swabs) have been validated by [facility]. This laboratory is certified by CLIA to perform high complexity testing. Samples from all other sites are not validated for this method. Result Comment: Perf ormance characteristics for Trichomonas Vaginalis testing on urine samples has been validated by [facility]. Testing on this sample type is not FDA-approved, but such approval is not necessary. This laboratory is certified by CLIA to perform high complexity testing. Performed By: #### 4 6154-1 #### RONAL Gerber ([id number]) [facility] ([facility]) [address] [place] [address] Alcoholon 05-29-2023 Blood Alcohol Concentration Not indicated Normal [facility] [place]) Comment on above: Performed By: #### A LCOH #### [facility] ([place], [place]) [address] [place] [address] Ethanol [Mass/Vol] mg/dL Normal [facility] [place]) Comment on above: Performed By: #### A LCOH #### [facility] ([place], [place]) [address] [place] [address] Comprehensive Metabolic Pane shad 05-29-2023 Albumin [Mass/Vol] 5.2 g/dL Critically high 3.5-4.6 [facility] Comment on above: Performed By: #### C MP #### [facility] ([place], [place]) [address] [place] [address] ALP [Catalytic activity/Vol] 64 U/L Normal 40-130 [facility] ([place], [place]) Comment on above: Performed By: #### C MP #### [facility] ([place], [place]) [address] [place] [address] ALT [Catalytic activity/Vol] 17 U/L Normal 0-33 [facility] ([place], [place]) Comment on above: Performed By: #### C MP #### [facility] ([place], [place]) [address] [place] [address] Anion gap [Moles/Vol] 19 mmol/L Critically high 9-15 [facility] ([place], [place]) Comment on above: Performed By: #### C MP #### [facility] ([place], [place]) [address] [place] [address] AST [Catalytic activity/Vol] 22 U/L Normal 0-35 [facility] ([place], [place]) Comment on above: Performed By: #### C MP #### [facility] ([place], [place]) [address] [place] [address] Bilirubin [Mass/Vol] 0.8 mg/dL Critically high 0.2-0.7 [facility] ([place], [place]) Comment on above: Performed By: #### C MP #### [facility] ([place], [place]) [address] [place] [address] Calcium [Mass/Vol] 10.2 mg/dL Critically high 8.5-9.9 [facility] Comment on above: Performed By: #### C MP #### [facility] ([place], [place]) [address] [place] [address] Chloride [Moles/Vol] 99 mmol/L Normal 95-107 [facility] ([place], [place]) Comment on above: Performed By: #### C MP #### [facility] ([place], [place]) [address] [place] [address] CO2 [Moles/Vol] 22 mmol/L Normal 20-31 [facility] ([place], [place]) Comment on above: Performed By: #### C MP #### [facility] ([place], [place]) [address] [place] [address] Creatinine [Mass/Vol] 0.60 mg/dL Normal 0.50-0.90 [facility] ([place], [place]) Comment on above: Performed By: #### C MP #### [facility] ([place], [place]) [address] [place] [address] GFR >60.0 Normal >60 [facility] ([place], [place]) Comment on above: Result Comment: Cristy lambc [...] Performed By: #### C MP #### [facility] ([place], [place]) [address] [place] [address] Globulin (S) [Mass/Vol] 2.6 g/dL Normal 2.3-3.5 [facility] ([place], [place]) Comment on above: Performed By: #### C MP #### [facility] ([place], [place]) [address] [place] [address] Glucose [Mass/Vol] 102 mg/dL Critically high 70-99 [facility] Comment on above: Performed By: #### C MP #### [facility] ([place], [place]) [address] [place] [address] Potassium [Moles/Vol] 3.9 mmol/L Normal 3.4-4.9 [facility] ([place], [place]) Comment on above: Performed By: #### C MP #### [facility] ([place], [place]) [address] [place] [address] Protein [Mass/Vol] 7.8 g/dL Normal 6.3-8.0 [facility] ([place], [place]) Comment on above: Performed By: #### C MP #### [facility] ([place], [place]) [address] [place] [address] Sodium [Moles/Vol] 140 mmol/L Normal 135-144 [facility] ([place], [place]) Comment on above: Performed By: #### C MP #### [facility] ([place], [place]) [address] [place] [address] Urea nitrogen [Mass/Vol] 9 mg/dL Normal 6-20 [facility] ([place], [place]) Comment on above: Performed By: #### C MP #### [facility] ([place], [place]) [address] [place] [address] UR Drugs of Abuse Panelon Drug Screen Comment see below Normal [facility] ([place], [place]) Comment on above: Result Comment: This method is a screening test to detect only these drug classes as part of a medical workup. Confirmatory testing by another method should be ordered if clinically indicated. Performed By: #### U DRGS #### [facility] ([place], [place]) [address] [place] [address] UR Amphetamines Screen Negative Normal Negative < [facility] ([place], [place]) Comment on above: Performed By: #### U DRGS #### [facility] ([place], [place]) [address] [place] [address] UR Barbiturates Screen Negative Normal Negative < [facility] ([place], [place]) Comment on above: Performed By: #### U DRGS #### [facility] ([place], [place]) [address] [place] [address] UR Benzo Screen Negative Normal Negative < [facility] ([place], [place]) Comment on above: Performed By: #### U DRGS #### [facility] ([place], [place]) [address] [place] [address] UR Cannabinoids Screen Negative Normal Negative < [facility] ([place], [place]) Comment on above: Performed By: #### U DRGS #### [facility] ([place], [place]) [address] [place] [address] UR Cocaine Screen Positive Abnormal Negative < [facility] ([place], [place]) Comment on above: Performed By: #### U DRGS #### [facility] ([place], [place]) [address] [place] [address] UR Fentanyl Screen Negative Normal Negative < [facility] ([place], [place]) Comment on above: Performed By: #### U DRGS #### [facility] ([place], [place]) [address] [place] [address] UR Methadone Screen Negative Normal Negative < [facility] ([place], [place]) Comment on above: Performed By: #### U DRGS #### [facility] ([place], [place]) [address] [place] [address] UR Opiates Screen Negative Normal Negative < [facility] ([place], [place]) Comment on above: Performed By: #### U DRGS #### [facility] ([place], [place]) [address] [place] [address] UR Oxycodone Screen Negative Normal Negative < [facility] ([place], [place]) Comment on above: Performed By: #### U DRGS #### [facility] ([place], [place]) [address] [place] [address] UR PCP Screen Negative Normal Negative < [facility] ([place], [place]) Comment on above: Performed By: #### U DRGS #### [facility] ([place], [place]) [address] [place] [address] UR Propoxyphene Screen Negative Normal Negative < [facility] ([place], [place]) Comment on above: Performed By: #### U DRGS #### [facility] ([place], [place]) [address] [place] [address] Urinalysis, reflex to micros copicon 05-29-2023 Bilirubin Ql (U) Negative Normal Negative [facility] ([place], [place]) Comment on above: Performed By: #### U A #### [facility] ([place], [place]) [address] [place] [address] Clarity (U) Clear Normal Clear [facility] ([place], [place]) Comment on above: Performed By: #### U A #### [facility] ([place], [place]) [address] [place] [address] Color (U) Yellow Normal Straw/[place] [facility] ([place], [place]) Comment on above: Performed By: #### U A #### [facility] ([place], [place]) [address] [place] [address] Glucose Ql (U) Negative Normal Negative [facility] ([place], [place]) Comment on above: Performed By: #### U A #### [facility] ([place], [place]) [address] [place] [address] Hemoglobin Ql (U) Negative Normal Negative [facility] ([place], [place]) Comment on above: Performed By: #### U A #### [facility] ([place], [place]) [address] [place] [address] Ketones Ql (U) 15 mg/dL Abnormal Negative [facility] ([place], [place]) Comment on above: Performed By: #### U A #### [facility] ([place], [place]) [address] [place] [address] Leukocyte esterase Test strip Ql (U) TRACE Abnormal Negative [facility] ([place], [place]) Comment on above: Performed By: #### U A #### [facility] ([place], [place]) [address] [place] [address] Nitrite Ql (U) Negative Normal Negative [facility] ([place], [place]) Comment on above: Performed By: #### U A #### [facility] ([place], [place]) [address] [place] [address] pH (U) 7.5 [pH] Normal 5.0-9.0 [facility] ([place], [place]) Comment on above: Performed By: #### U A #### [facility] ([place], [place]) [address] [place] [address] Protein Ql (U) Negative Normal Negative [facility] ([place], [place]) Comment on above: Performed By: #### U A #### [facility] ([place], [place]) [address] [place] [address] Specific gravity (U) [Rel density] 1.008 Normal 1.005-1.03 [facility] ([place], [place]) Comment on above: Performed By: #### U A #### [facility] ([place], [place]) [address] [place] [address] Urobilinogen Qn (U) 0.2 {Vielka'U}/dL Normal < 2.0 [facility] ([place], [place]) Comment on above: Performed By: #### U A #### [facility] ([place], [place]) [address] [place] [address] Urine Microscopicon 05-29-20 23 Urine Bacteria MANY Abnormal Negative [facility] ([place], [place]) Comment on above: Performed By: #### A LCOH #### [facility] ([place], [place]) [address] [place] [address] Urine Epithelial Cells Auto 0-2 Normal 0-5 [facility] ([place], [place]) Comment on above: Performed By: #### A LCOH #### [facility] ([place], [place]) [address] [place] [address] Urine Hyaline Casts Auto 3-5 Normal 0-5 [facility] ([place], [place]) Comment on above: Performed By: #### A LCOH #### [facility] ([place], [place]) [address] [place] [address] Urine RBC Auto 0-2 Normal 0-5 [facility] ([place], [place]) Comment on above: Performed By: #### A LCOH #### [facility] ([place], [place]) [address] [place] [address] Urine WBC Auto 10-20 Abnormal 0-5 [facility] ([place], [place]) Comment on above: Performed By: #### A LCOH #### 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 Vitals Vital Signs Recorded: 09Jan2023 04:18PM [id number], LUE, Sitting [id number], LUE, Sitting Height5 ft 6 in Bmwxlz776 lb 6 oz BMI Opvfekgbcz13.59 kg/m2 BSA Calculated1.78 Tobacco Useb) No PHQ-2 #1. Over the last 2 weeks have you felt down, depressed or hopeless? (If yes, answer PHQ-9 below)No PHQ-2 #2. Over the last 2 weeks have you felt little interest or pleasure in doing things? (If yes, answer PHQ-9 below)No Falls Screening (Age 18+)a) No falls within the last year [id number] Signatures Electronically signed by : Cally [place] MD; Jan 10 2023 9:46AM EST (Author) Normal [employer] Tobacco Screening.on 023 Adult depression screening assessment No [facility] [employer] Phone: Fall risk assessment a) No falls within the last year [facility] [employer] Phone: Last menstrual period start date 22Dec2022 [facility] [employer] Phone: Tobacco use status [facility] b) No [facility] [employer] Phone: Established Visit (Orthopaed ic Surgery)on 11-22-2022 [...] grammatical areas may persist related to the [employer] software Chacorta Erwin MD Office: . Active [...] use (V49.89) (more content not included)... Normal [employer] Provider Note - ED v3on - Provider [...] SIGNS: T PRBP SpO2O2(LPM) %FiO2 Method 21-Nov-2022 01:56:[id number]/63 100 room air, no respiratory support MDM [...] today. N (more content not included)... Normal [facility] Triage - EDon 11-21-2022 Triage - ED [...] BMI (kg/m2): 24.243 Calculated BSA (m2) 1.78 [place] Coma Scale: Best Eye Response: (E4) spontaneous Best Motor Response: (M6) obeys commands Best Verbal Response: (V5) oriented [place] Score: 15 Cough lasting greater than 3 [...] Updated: 21-Nov-2022 02:18 by Kashif Hammond (NIHARIKA) [facility] Provider Note - ED v3on 11-04 Provider [...] SIGNS: T PRBP SpO2O2(LPM) %FiO2 Method 20-Nov-2022 13:51:[id number]/62 97 room air, no respiratory support MDM [...] ill patient: no Electronic Signatures: Elinor Sagastume (VASCULAR TECHNOLOGIST-RUG REPAIRER) (Signed 30-Nov-2022 06:11) Authored: ED Notes, HPI, PMH, Results/Vital Signs, MDM/ED Course, Clinical Impression, Attestation, Chart Review, Scores Last Updated: 30-Nov-2022 06:11 by Elinor Sagastume (VASCULAR TECHNOLOGIST-RUG REPAIRER) References: 1. Data Referenced From Triage - ED 20-Nov-2022 13:51 Normal [facility] Radiologyon 11-20-2022 XR Foot 3 Views [facility] Phone: Triage - EDon 11-20-2022 Triage [...] Accompanied By: self Language: Spoken Language Preferred: Nauruan Reading Language Preferred: Nauruan [place] Buyer Requested: no geosciences faculty member was requested MDRO: History of MDRO: no [...] BMI (kg/m2): 24.208 Calculated BSA (m2) 1.78 [place] Coma Scale: Best Eye Response: (E4) spontaneous [...] 20-Nov-2022 13:54 by Tara Pickett (RN) Normal [facility] Alcoholon 10-08-2022 Blood Alcohol Concentration Not indicated Normal [facility] ([place], [place]) Comment on above: Performed By: #### A LCOH #### [facility] ([place], [place]) [address] [place] [address] Ethanol [Mass/Vol] mg/dL Normal [facility] ([place], [place]) Comment on above: Performed By: #### A LCOH #### [facility] ([place], [place]) [address] [place] [address] CBC With Platelet and Differ entialon 10-08-2022 Basophils (Bld) [#/Vol] 0.0 10*3/uL Normal 0.0-0.2 [facility] ([place], [place]) Comment on above: Performed By: #### C BCWD #### [facility] ([place], [place]) [address] [place] [address] Basophils/100 WBC (Bld) 0.5 % Normal [facility] ([place], [place]) Comment on above: Performed By: #### C BCWD #### [facility] ([place], [place]) [address] [place] [address] Eosinophils (Bld) [#/Vol] 0.0 10*3/uL Normal 0.0-0.7 [facility] ([place], [place]) Comment on above: Performed By: #### C BCWD #### [facility] ([place], [place]) [address] [place] [address] Eosinophils/100 WBC (Bld) 0.5 % Normal [facility] ([place], [place]) Comment on above: Performed By: #### C BCWD #### [facility] ([place], [place]) [address] [place] [address] Erythrocyte distribution width (RBC) [Ratio] 13.8 % Normal 11.5-14.5 [facility] ([place], [place]) Comment on above: Performed By: #### C BCWD #### [facility] ([place], [place]) [address] [place] [address] Hematocrit (Bld) [Volume fraction] 39.4 % Normal 37.0-47.0 [facility] ([place], [place]) Comment on above: Performed By: #### C BCWD #### [facility] ([place], [place]) [address] [place] [address] Hemoglobin (Bld) [Mass/Vol] 13.2 g/dL Normal 12.0-16.0 [facility] ([place], [place]) Comment on above: Performed By: #### C BCWD #### [facility] ([place], [place]) [address] [place] [address] Lymphocytes (Bld) [#/Vol] 1.4 10*3/uL Normal 1.0-4.8 [facility] ([place], [place]) Comment on above: Performed By: #### C BCWD #### [facility] ([place], [place]) [address] [place] [address] Lymphocytes/100 WBC (Bld) 19.2 % Normal [facility] ([place], [place]) Comment on above: Performed By: #### C BCWD #### [facility] ([place], [place]) [address] [place] [address] MCH (RBC) [Entitic mass] 29.2 pg Normal 27.0-31.3 [facility] ([place], [place]) Comment on above: Performed By: #### C BCWD #### [facility] ([place], [place]) [address] [place] [address] MCHC 33.6 % Normal 33.0-37.0 [facility] ([place], [place]) Comment on above: Performed By: #### C BCWD #### [facility] ([place], [place]) [address] [place] [address] MCV (RBC) [Entitic vol] 87.1 fL Normal 79.4-94.8 [facility] ([place], [place]) Comment on above: Performed By: #### C BCWD #### [facility] ([place], [place]) [address] [place] [address] Monocytes (Bld) [#/Vol] 0.8 10*3/uL Normal 0.2-0.8 [facility] ([place], [place]) Comment on above: Performed By: #### C BCWD #### [facility] ([place], [place]) [address] [place] [address] Monocytes/100 WBC (Bld) 10.8 % Normal [facility] ([place], [place]) Comment on above: Performed By: #### C BCWD #### [facility] ([place], [place]) [address] [place] [address] Neutrophils (Bld) [#/Vol] 5.0 10*3/uL Normal 1.4-6.5 [facility] ([place], [place]) Comment on above: Performed By: #### C BCWD #### [facility] ([place], [place]) [address] [place] [address] Neutrophils/100 WBC (Bld) 69.0 % Normal [facility] ([place], [place]) Comment on above: Performed By: #### C BCWD #### [facility] ([place], [place]) [address] [place] [address] Platelets (Bld) [#/Vol] 291 10*3/uL Normal 130-400 [facility] ([place], [place]) Comment on above: Performed By: #### C BCWD #### [facility] ([place], [place]) [address] [place] [address] RBC (Bld) [#/Vol] 4.53 10*6/uL Normal 4.20-5.40 [facility] ([place], [place]) Comment on above: Performed By: #### C BCWD #### [facility] ([place], [place]) [address] [place] [address] WBC (Bld) [#/Vol] 7.2 10*3/uL Normal 4.8-10.8 [facility] ([place], [place]) Comment on above: Performed By: #### C BCWD #### [facility] ([place], [place]) [address] [place] [address] Comprehensive Metabolic Pane shad 10-08-2022 Albumin [Mass/Vol] 5.0 g/dL Critically high 3.5-4.6 [facility] Comment on above: Order Comment: CALL [facility] tel. [phone], Chemistry, POTASSIUM results called to and read back by IRA PECK, 10/08/2022 10:40, by JOSÉ MIGUEL Performed By: #### C MP #### [facility] ([place], [place]) [address] [place] [address] ALP [Catalytic activity/Vol] 72 U/L Normal 40-130 [facility] ([place], [place]) Comment on above: Order Comment: CALL [facility] tel. [phone], Chemistry, POTASSIUM results called to and read back by IRA PECK, 10/08/2022 10:40, by JOSÉ MIGUEL Performed By: #### C MP #### [facility] ([place], [place]) [address] [place] [address] ALT [Catalytic activity/Vol] 18 U/L Normal 0-33 [facility] ([place], [place]) Comment on above: Order Comment: CALL [facility] tel. [phone], Chemistry, POTASSIUM results called to and read back by IRA PECK, 10/08/2022 10:40, by VLDOUGLAS Performed By: #### C MP #### [facility] ([place], [place]) [address] [place] [address] Anion gap [Moles/Vol] 17 mmol/L Critically high 9-15 [facility] ([place], [place]) Comment on above: Order Comment: CALL [facility] tel. [phone], Chemistry, POTASSIUM results called to and read back by IRA PECK, 10/08/2022 10:40, by JOSÉ MIGUEL Performed By: #### C MP #### [facility] ([place], [place]) [address] [place] [address] AST [Catalytic activity/Vol] 20 U/L Normal 0-35 [facility] ([place], [place]) Comment on above: Order Comment: CALL [facility] tel. [phone], Chemistry, POTASSIUM results called to and read back by IRA PECK, 10/08/2022 10:40, by JOSÉ MIGUEL Performed By: #### C MP #### [facility] ([place], [place]) [address] [place] [address] Bilirubin [Mass/Vol] 2.0 mg/dL Critically high 0.2-0.7 [facility] ([place], [place]) Comment on above: Order Comment: CALL [facility] tel. [phone], Chemistry, POTASSIUM results called to and read back by IRA PECK, 10/08/2022 10:40, by JOSÉ MIGUEL Performed By: #### C MP #### [facility] ([place], [place]) [address] [place] [address] Calcium [Mass/Vol] 10.1 mg/dL Critically high 8.5-9.9 [facility] Comment on above: Order Comment: CALL [facility] tel. [phone], Chemistry, POTASSIUM results called to and read back by IRA PECK, 10/08/2022 10:40, by JOSÉ MIGUEL Performed By: #### C MP #### [facility] ([place], [place]) [address] [place] [address] Chloride [Moles/Vol] 101 mmol/L Normal 95-107 [facility] ([place], [place]) Comment on above: Order Comment: CALL [facility] tel. [phone], Chemistry, POTASSIUM results called to and read back by IRA PECK, 10/08/2022 10:40, by VLDOUGLAS Performed By: #### C MP #### [facility] ([place], [place]) [address] [place] [address] CO2 [Moles/Vol] 22 mmol/L Normal 20-31 [facility] ([place], [place]) Comment on above: Order Comment: CALL [facility] tel. [phone], Chemistry, POTASSIUM results called to and read back by IRA PECK, 10/08/2022 10:40, by JOSÉ MIGUEL Performed By: #### C MP #### [facility] ([place], [place]) [address] [place] [address] Creatinine [Mass/Vol] 0.63 mg/dL Normal 0.50-0.90 [facility] ([place], [place]) Comment on above: Order Comment: CALL [facility] tel. [phone], Chemistry, POTASSIUM results called to and read back by IRA PECK, 10/08/2022 10:40, by JOSÉ MIGUEL Performed By: #### C MP #### [facility] ([place], [place]) [address] [place] [address] GFR >60.0 Normal >60 [facility] ([place] [place]) Comment on above: Order Comment: CALL [facility] tel. [phone], Chemistry, POTASSIUM results called to and read [...] Performed By: #### C MP #### [facility] ([place], [place]) [address] [place] [address] Globulin (S) [Mass/Vol] 3.0 g/dL Normal 2.3-3.5 [facility] ([place], [place]) Comment on above: Order Comment: CALL [facility] tel. [phone], Chemistry, POTASSIUM results called to and read back by IRA PECK, 10/08/2022 10:40, by JOSÉ MIGUEL Performed By: #### C MP #### [facility] ([place], [place]) [address] [place] [address] Glucose [Mass/Vol] 111 mg/dL Critically high 70-99 [facility] Comment on above: Order Comment: CALL [facility] tel. [phone], Chemistry, POTASSIUM results called to and read back by IRA PECK, 10/08/2022 10:40, by JOSÉ MIGUEL Performed By: #### C MP #### [facility] ([place], [place]) [address] [place] [address] Potassium [Moles/Vol] 3.0 mmol/L Critically low 3.4-4.9 [facility] ([place] [place]) Comment on above: Order Comment: CALL [facility] tel. [phone], Chemistry, POTASSIUM results called to and read back by IRA PECK, 10/08/2022 10:40, by JOSÉ MIGUEL Performed By: #### C MP #### [facility] ([place], [place]) [address] [place] [address] Protein [Mass/Vol] 8.0 g/dL Normal 6.3-8.0 [facility] ([place] [place]) Comment on above: Order Comment: CALL [facility] tel. [phone], Chemistry, POTASSIUM results called to and read back by IRA PECK, 10/08/2022 10:40, by JOSÉ MIGUEL Performed By: #### C MP #### [facility] ([place], [place]) [address] [place] [address] Sodium [Moles/Vol] 140 mmol/L Normal 135-144 [facility] ([place] [place]) Comment on above: Order Comment: CALL [facility] tel. [phone], Chemistry, POTASSIUM results called to and read back by IRA PECK, 10/08/2022 10:40, by JOSÉ MIGUEL Performed By: #### C MP #### [facility] ([place], [place]) [address] [place] [address] Urea nitrogen [Mass/Vol] 20 mg/dL Normal 6-20 [facility] ([place] [place]) Comment on above: Order Comment: [facility] tel. [phone], Chemistry, POTASSIUM results called to and read back by IRA PECK, 10/08/2022 10:40, by JOSÉ MIGUEL Performed By: #### C MP #### [facility] ([place], [place]) [address] [place] [address] UR Drugs of Abuse Panelon Drug Screen Comment see below Normal [facility] ([place], [place]) Comment on above: Result Comment: This method is a screening test to detect only these drug classes as part of a medical workup. Confirmatory testing by another method should be ordered if clinically indicated. Performed By: #### U DRGS #### [facility] ([place], [place]) [address] [place] [address] UR Amphetamines Screen Positive Abnormal Negative < [facility] ([place], [place]) Comment on above: Performed By: #### U DRGS #### [facility] ([place], [place]) [address] [place] [address] UR Barbiturates Screen Negative Normal Negative < [facility] ([place], [place]) Comment on above: Performed By: #### U DRGS #### [facility] ([place], [place]) [address] [place] [address] UR Benzo Screen Negative Normal Negative < [facility] ([place], [place]) Comment on above: Performed By: #### U DRGS #### [facility] ([place], [place]) [address] [place] [address] UR Cannabinoids Screen Positive Abnormal Negative < [facility] ([place], [place]) Comment on above: Performed By: #### U DRGS #### [facility] ([place], [place]) [address] [place] [address] UR Cocaine Screen Positive Abnormal Negative < [facility] ([place], [place]) Comment on above: Performed By: #### U DRGS #### [facility] ([place], [place]) [address] [place] [address] UR Fentanyl Screen Negative Normal Negative < [facility] ([place], [place]) Comment on above: Performed By: #### U DRGS #### [facility] ([place], [place]) [address] [place] [address] UR Methadone Screen Negative Normal Negative < [facility] ([place], [place]) Comment on above: Performed By: #### U DRGS #### [facility] ([place], [place]) [address] [place] [address] UR Opiates Screen Negative Normal Negative < [facility] ([place], [place]) Comment on above: Performed By: #### U DRGS #### [facility] ([place], [place]) [address] [place] [address] UR Oxycodone Screen Negative Normal Negative < [facility] ([place], [place]) Comment on above: Performed By: #### U DRGS #### [facility] ([place], [place]) [address] [place] [address] UR PCP Screen Negative Normal Negative < [facility] ([place], [place]) Comment on above: Performed By: #### U DRGS #### [facility] ([place], [place]) [address] [place] [address] UR Propoxyphene Screen Negative Normal Negative < [facility] ([place], [place]) Comment on above: Performed By: #### U DRGS #### [facility] ([place], [place]) [address] [place] [address] Urinalysis, reflex to micros copicon 10-08-2022 Bilirubin Ql (U) Negative Normal Negative [facility] ([place], [place]) Comment on above: Performed By: #### U A #### [facility] ([place], [place]) [address] [place] [address] Clarity (U) CLOUDY Abnormal Clear [facility] ([place], [place]) Comment on above: Performed By: #### U A #### [facility] ([place], [place]) [address] [place] [address] Color (U) ORANGE Abnormal Straw/[place] [facility] ([place], [place]) Comment on above: Performed By: #### U A #### [facility] ([place], [place]) [address] [place] [address] Glucose Ql (U) Negative Normal Negative [facility] ([place], [place]) Comment on above: Performed By: #### U A #### [facility] ([place], [place]) [address] [place] [address] Hemoglobin Ql (U) TRACE Abnormal Negative [facility] ([place], [place]) Comment on above: Performed By: #### U A #### [facility] ([place], [place]) [address] [place] [address] Ketones Ql (U) >=[address] [facility] ([place], [place]) Comment on above: Performed By: #### U A #### [facility] ([place], [place]) [address] [place] [address] Leukocyte esterase Test strip Ql (U) MODERATE Abnormal Negative [facility] ([place], [place]) Comment on above: Performed By: #### U A #### [facility] ([place], [place]) [address] [place] [address] Nitrite Ql (U) Negative Normal Negative [facility] ([place], [place]) Comment on above: Performed By: #### U A #### [facility] ([place], [place]) [address] [place] [address] pH (U) 7.5 [pH] Normal 5.0-9.0 [facility] ([place], [place]) Comment on above: Performed By: #### U A #### [facility] ([place], [place]) [address] [place] [address] Protein Ql (U) 30 mg/dL Abnormal Negative [facility] ([place], [place]) Comment on above: Performed By: #### U A #### [facility] ([place], [place]) [address] [place] [address] Specific gravity (U) [Rel density] 1.030 Normal 1.005-1.03 [facility] ([place], [place]) Comment on above: Performed By: #### U A #### [facility] ([place], [place]) [address] [place] [address] Urobilinogen Qn (U) 1.0 {Vielka'U}/dL Normal < 2.0 [facility] ([place], [place]) Comment on above: Performed By: #### U A #### [facility] ([place], [place]) [address] [place] [address] Urine Microscopicon 10-08-20 22 Epithelial cells LM Ql (Urine sed) 5-[address] [facility] ([place], [place]) Comment on above: Performed By: #### U LINDY #### [facility] ([place], [place]) [address] [place] [address] Urine RBC 3-5 Abnormal 0-2 [facility] ([place], [place]) Comment on above: Performed By: #### U LINDY #### [facility] ([place], [place]) [address] [place] [address] Urine Bacteria RARE Abnormal Negative [facility] ([place], [place]) Comment on above: Performed By: #### U LINDY #### [facility] ([place], [place]) [address] [place] [address] Urine Epithelial Cells Auto 20-50 Normal 0-5 [facility] ([place], [place]) Comment on above: Performed By: #### U LINDY #### [facility] ([place], [place]) [address] [place] [address] Urine Hyaline Casts Auto 10-20 Normal 0-5 [facility] ([place], [place]) Comment on above: Performed By: #### U LINDY #### [facility] ([place], [place]) [address] [place] [address] Urine WBC Auto 10-20 Abnormal 0-5 [facility] ([place], [place]) Comment on above: Performed By: #### U LINDY #### [facility] ([place], [place]) [address] [place] [address] DRUG SCREEN,URINEon 09-09-20 22 AMPHETAMINE SCREEN,U Canceled Normal [facility] Comment on above: Order Comment: TEST DRUG SCREEN,URINE WAS CANCELLED, 09/09/2022 01:17 No specimen received/Pt discharged. Result Comment: CUTO FF LEVEL: 500 NG/ML Cross-reactivity has been reported with high concentrations of the following drugs: buproprion, chloroquine, chlorpromazine, ephedrine, mephentermine, fenfluramine, phentermine, phenylpropanolamine, pseudoephedrine, and propranolol. Performed By: #### D RUG3 #### [address] [id number] BARBITURATES SCREEN,U Canceled Normal [facility] Comment on above: Order Comment: TEST DRUG SCREEN,URINE WAS CANCELLED, 09/09/2022 01:17 No specimen received/Pt discharged. Result Comment: CUTO FF LEVEL: 200 NG/ML Performed By: #### D RUG3 #### [address] [id number] BENZODIAZEPINES SCREEN,U Canceled Normal [facility] Comment on above: Order Comment: TEST DRUG SCREEN,URINE WAS CANCELLED, 09/09/2022 01:17 No specimen received/Pt discharged. Result Comment: CUTO FF LEVEL: 200 NG/ML Performed By: #### D RUG3 #### [address] [id number] CANNABINOIDS SCREEN,U Canceled Normal [facility] Comment on above: Order Comment: TEST DRUG SCREEN,URINE WAS CANCELLED, 09/09/2022 01:17 No specimen received/Pt discharged. Result Comment: CUTO FF LEVEL: 50 NG/ML Performed By: #### D RUG3 #### [address] [id number] COCAINE METABOLITE SCREEN,U Canceled Normal [facility] Comment on above: Order Comment: TEST DRUG SCREEN,URINE WAS CANCELLED, 09/09/2022 01:17 No specimen received/Pt discharged. Result Comment: CUTO FF LEVEL: 150 NG/ML Performed By: #### D RUG3 #### [address] [id number] DRUG SCREEN COMMENT Canceled Normal [facility] Comment on above: Order Comment: TEST DRUG SCREEN,URINE WAS CANCELLED, 09/09/2022 01:17 No specimen received/Pt discharged. Result Comment: Drug screen results are presumptive and should not be used to assess compliance with prescribed medication. Contact the performing [facility] laboratory to add-on definitive confirmatory testing if [...] directors. Performed By: #### Wilmer RUG3 #### [address] [id number] FENTANYL SCREEN,URINE Canceled Normal [facility] Comment on above: Order Comment: TEST DRUG SCREEN,URINE WAS CANCELLED, 09/09/2022 01:17 No specimen received/Pt discharged. Result Comment: CUTO FF LEVEL: 5 NG/ML Performed By: #### D RUG3 #### [address] [id number] METHADONE SCREEN,U Canceled Normal [facility] Comment on above: Order Comment: TEST DRUG SCREEN,URINE WAS CANCELLED, 09/09/2022 01:17 No specimen received/Pt discharged. Result Comment: CUTO FF LEVEL: 150 NG/ML The metabolite U-jwymn-eeksixtokzswml (LAAM) is not detected by this method in concentrations that would be found in the urine of patients on LAAM therapy. Performed By: #### D RUG3 #### [address] [id number] OPIATES SCREEN,U Canceled Normal [facility] Comment on above: Order Comment: TEST DRUG SCREEN,URINE WAS CANCELLED, 09/09/2022 01:17 No specimen received/Pt discharged. Result Comment: CUTO FF LEVEL: 300 NG/ML The opiate screen does not detect fentanyl, meperidine, or tramadol. Oxycodone is not consistently detected (refer to Oxycodone Screen, Urine result). Performed By: #### D RUG3 #### [address] [id number] OXYCODONE SCREEN,U Canceled Normal [facility] [place] [facility] Comment on above: Order Comment: TEST DRUG SCREEN,URINE WAS CANCELLED, 09/09/2022 01:17 No specimen received/Pt discharged. Result Comment: CUTO FF LEVEL: 100 NG/ML This test will accurately detect both oxycodone and oxymorphone. Performed By: #### D RUG3 #### [address] [id number] PCP SCREEN,U Canceled Normal [facility] Comment on above: Order Comment: TEST DRUG SCREEN,URINE WAS CANCELLED, 09/09/2022 01:17 No specimen received/Pt discharged. Result Comment: CUTO FF LEVEL: 25 NG/ML Cross-reactivity has been reported with dextromethorphan. Performed By: #### D RUG3 #### [address], [place] [id number] URINALYSISon 09-09-2022 Appearance (U) Canceled Normal [facility] Comment on above: Order Comment: TEST URINALYSIS WAS CANCELLED, 09/09/2022 01:17 No specimen received/Pt discharged. Performed By: #### U A #### [address], [place] [id number] ASCORBIC ACID Canceled Normal [facility] Comment on [...] hours. Performed By: #### U A #### [address] [id number] Bilirubin Ql (U) Canceled Normal [facility] Comment on above: Order Comment: TEST URINALYSIS WAS CANCELLED, 09/09/2022 01:17 No specimen received/Pt discharged. Performed By: #### U A #### [address] [id number] Color (U) Canceled Normal [facility] Comment on above: Order Comment: TEST URINALYSIS WAS CANCELLED, 09/09/2022 01:17 No specimen received/Pt discharged. Performed By: #### U A #### [address] [id number] Glucose Ql (U) Canceled Normal [facility] Comment on above: Order Comment: TEST URINALYSIS WAS CANCELLED, 09/09/2022 01:17 No specimen received/Pt discharged. Performed By: #### U A #### [address] [id number] Hemoglobin Ql (U) Canceled Normal [facility] Comment on above: Order Comment: TEST URINALYSIS WAS CANCELLED, 09/09/2022 01:17 No specimen received/Pt discharged. Performed By: #### U A #### [address] [id number] Ketones Ql (U) Canceled Normal [facility] Comment on above: Order Comment: TEST URINALYSIS WAS CANCELLED, 09/09/2022 01:17 No specimen received/Pt discharged. Performed By: #### U A #### [address] [phone] Leukocyte esterase Test strip Ql (U) Canceled Normal [facility] Comment on above: Order Comment: TEST URINALYSIS WAS CANCELLED, 09/09/2022 01:17 No specimen received/Pt discharged. Performed By: #### U A #### [address] [id number] Nitrite Ql (U) Canceled Normal [facility] Comment on above: Order Comment: TEST URINALYSIS WAS CANCELLED, 09/09/2022 01:17 No specimen received/Pt discharged. Performed By: #### U A #### [address] [id number] pH Canceled Normal [facility] Comment on above: Order Comment: TEST URINALYSIS WAS CANCELLED, 09/09/2022 01:17 No specimen received/Pt discharged. Performed By: #### U A #### [address] [id number] Protein Ql (U) Canceled Normal [facility] Comment on above: Order Comment: TEST URINALYSIS WAS CANCELLED, 09/09/2022 01:17 No specimen received/Pt discharged. Performed By: #### U A #### [address] [id number] Specific gravity (U) [Rel density] Canceled Normal [facility] Comment on above: Order Comment: TEST URINALYSIS WAS CANCELLED, 09/09/2022 01:17 No specimen received/Pt discharged. Performed By: #### U A #### [address] [id number] UROBILINOGEN Canceled Normal [facility] Comment on above: Order Comment: TEST URINALYSIS WAS CANCELLED, 09/09/2022 01:17 No specimen received/Pt discharged. Performed By: #### U A #### [address] [id number] CBC AND DIFFERENTIALon 09-08 % AUTOMATED IMMATURE GRAN 0.3 % Normal 0.0 - 0.9 [facility] Comment on above: Result Comment: Hazel ture Granulocyte Count (IG) includes promyelocytes, myelocytes and metamyelocytes but does not include bands. Percent differential counts (%) should be interpreted in the context of the absolute cell counts (cells/L). Performed By: #### C BCDF #### [address] [id number] Basophils (Bld) [#/Vol] 0.05 10*3/uL Normal 0.00 - 0.10 [facility] Comment on above: Performed By: #### C BCDF #### [address] [id number] Basophils/100 WBC (Bld) 0.7 % Normal 0.0 - 2.0 [facility] Comment on above: Performed By: #### C BCDF #### [address] [id number] Eosinophils (Bld) [#/Vol] 0.01 10*3/uL Normal 0.00 - 0.70 [facility] Comment on above: Performed By: #### C BCDF #### [address] [id number] Eosinophils/100 WBC (Bld) 0.1 % Normal 0.0 - 6.0 [facility] Comment on above: Performed By: #### C BCDF #### [address] [id number] Erythrocyte distribution width (RBC) [Ratio] 12.9 % Normal 11.5 - 14.5 [facility] Comment on above: Performed By: #### C BCDF #### [address] [id number] Hematocrit (Bld) [Volume fraction] 34.5 % Low 36.0 - 46.0 [facility] Comment on above: Performed By: #### C BCDF #### [address] [id number] Hemoglobin (Bld) [Mass/Vol] 11.6 g/dL Low 12.0 - 16.0 [facility] Comment on above: Performed By: #### C BCDF #### [address] [id number] Lymphocytes (Bld) [#/Vol] 1.68 10*3/uL Normal 1.20 - 4.80 [facility] Comment on above: Performed By: #### C BCDF #### [address] [id number] Lymphocytes/100 WBC (Bld) 23.1 % Normal 13.0 - 44.0 [facility] Comment on above: Performed By: #### C BCDF #### [address] [id number] MCHC (RBC) [Mass/Vol] 33.6 g/dL Normal 32.0 - 36.0 [facility] Comment on above: Performed By: #### C BCDF #### [address] [id number] MCV (RBC) [Entitic vol] 86 fL Normal 80 - 100 [facility] Comment on above: Performed By: #### C BCDF #### [address] [id number] Monocytes (Bld) [#/Vol] 0.82 10*3/uL Normal 0.10 - 1.00 [facility] Comment on above: Performed By: #### C BCDF #### [address] [id number] Monocytes/100 WBC (Bld) 11.3 % Normal 2.0 - 10.0 [facility] Comment on above: Performed By: #### C BCDF #### [address] [id number] Neutrophils (Bld) [#/Vol] 4.68 10*3/uL Normal 1.20 - 7.70 [facility] Comment on above: Performed By: #### C BCDF #### [address] [id number] Neutrophils/100 WBC (Bld) 64.5 % Normal 40.0 - 80.0 [facility] Comment on above: Performed By: #### C BCDF #### [address] [id number] Platelets (Bld) [#/Vol] 267 10*3/uL Normal 150 - 450 [facility] Comment on above: Performed By: #### C BCDF #### [address] [id number] RBC 3.99 x10E12/L Low 4.00 - 5.20 [facility] Comment on above: Performed By: #### C BCDF #### [address] [id number] WBC (Bld) [#/Vol] 7.3 10*3/uL Normal 4.4 - 11.3 [facility] Comment on above: Performed By: #### C BCDF #### [address] [id number] COMPREHENSIVE PANELon 2021 Albumin [Mass/Vol] 4.6 g/dL Normal 3.4 - 5.0 [facility] Comment on above: Performed By: #### U A #### [address] [id number] ALP [Catalytic activity/Vol] 44 U/L Normal 33 - 110 [facility] Comment on above: Performed By: #### U A #### [address] [phone] ALT [Catalytic activity/Vol] 14 U/L Normal 7 - 45 [facility] Comment on above: Result Comment: Carrie ents treated with Sulfasalazine may generate falsely decreased results for ALT. Performed By: #### U A #### [address] [id number] Anion gap [Moles/Vol] 14 mmol/L Normal 10 - 20 [facility] Comment on above: Performed By: #### U A #### [address] [id number] AST [Catalytic activity/Vol] 19 U/L Normal 9 - 39 [facility] Comment on above: Performed By: #### U A #### [address] [id number] Bilirubin [Mass/Vol] 0.9 mg/dL Normal 0.0 - 1.2 [facility] Comment on above: Performed By: #### U A #### [address] [id number] Calcium [Mass/Vol] 9.3 mg/dL Normal 8.6 - 10.3 [facility] Comment on above: Performed By: #### U A #### [address] [id number] Chloride [Moles/Vol] 101 mmol/L Normal 98 - 107 [facility] Comment on above: Performed By: #### U A #### [address] [id number] Creatinine [Mass/Vol] 0.67 mg/dL Normal 0.50 - 1.05 [facility] Comment on above: Performed By: #### U A #### [address] [id number] eGFR FEMALE >90 Normal >90 [facility] Comment on above: Result Comment: CALC ULATIONS OF ESTIMATED GFR ARE PERFORMED USING THE 2020 CKD-EPI STUDY REFIT EQUATION WITHOUT THE RACE VARIABLE FOR THE IDMS-TRACEABLE CREATININE METHODS. https://jasn.asnjournals.org/content/early//ASN.193829930 8 Performed By: #### U A #### [address] [id number] Glucose [Mass/Vol] 95 mg/dL Normal 74 - 99 [facility] Comment on above: Performed By: #### U A #### [address] [id number] HCO3 (Bld) [Moles/Vol] 25 mmol/L Normal 21 - 32 [facility] Comment on above: Performed By: #### U A #### [address] [id number] Potassium [Moles/Vol] 3.2 mmol/L Low 3.5 - 5.3 [facility] Comment on above: Performed By: #### U A #### [address] [id number] Protein [Mass/Vol] 7.4 g/dL Normal 6.4 - 8.2 [facility] Comment on above: Performed By: #### U A #### [address] [id number] Sodium [Moles/Vol] 137 mmol/L Normal 136 - 145 [facility] Comment on above: Performed By: #### U A #### [address] [id number] Urea nitrogen [Mass/Vol] 14 mg/dL Normal 6 - 23 [facility] Comment on above: Performed By: #### U A #### [address] [id number] HCG,BETA-QUANTITATIVEon HCG,BETA-QUANTITAT ENZO <2 Normal [facility] Comment on above: Result Comment: . Total HCG measurement is performed using the [employer] [place] Access Immunoassay which detects intact HCG and free beta HCG subunit. . This test is not indicated for use as a tumor marker. HCG testing is performed using a different test methodology at [facility] than other legacy [facility]. Direct result comparison should only be made within the same method. REF VALUES NON FEMALE <5 MALES <5 Performed By: #### U A #### [address] [id number] Provider Note - ED v3on Provider Note [...] dictated by speech recognition. 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 Please call if questions. [...] Attestation, C (more content not included)... Normal [facility] Risk Screen - Adult Emergenc yon 09-08-2022 Risk Screen - Adult Emergency Preferred Language: Preferred Language: Preferred Language for Discussing Health Care (patient/designee)Nauruan Patient Preferred Pharmacy: Patient Preferred Pharmacy Statement: [...] board Learning Preferencesaudio Cultural Considerationsnone Developmental Considerationsnone Sabianist Considerationsnone Learning Assessment (Other Learner): Learning Assessment [...] an injured patient at a Trauma Center ([facility]/[place]): no Electronic Signatures: Adonis Melchor (RN) (Signed 08-Sep-2022 20:07) Authored: Preferred Language, Patient Preferred Pharmacy, Advanced Directives, Family Violence Adult, Learning Assessment (Patient), Learning Assessment (Other Learner), Pressure Injury/TB/Substance, Pressure Injury, CAGE Last Updated: 08-Sep-2022 20:07 by Adonis Melchor (RN) Normal [facility] Triage - EDon 09-08-2022 Triage - ED [...] Updated: 08-Sep-2022 15:36 by Mechelle Garcia (RN) [facility] Michael 10-20-2021 [facility] Telephone (4CQ) -- JULIETTE HERNÁNDEZ ([id number]) 1995 F Date Time Provider Department 10/20/21 JUAN ANTONIO ESQUEDA 4CQ During your visit today, we recorded the following information about you: Beny Pope 10/20/2021 9:39 AM Signed Juliette Hernández called today. : 1995 Allergies: Patient has no known allergies. (home) [phone] (cell) Reason for call: Patient calling asking for an alternative medication of Miconazole Nitrate (MONISTAT 3) 200 mg/5 gram (4 %) cream. Insurance does not cover this for patient. Requesting call back if any issues. Confirmed [facility] as pharmacy Patient last appointment: Visit date not found The patients preferred pharmacy has been captured for this encounter? yes Beny Mcconnell, VASCULAR TECHNOLOGIST.[facility] 10/20/2021 9:52 AM Signed rx sent for [...] Encounter Status:Closed by TAL MCCONNELL on 10/20/21 [facility] 10-18-2021 [facility] Telephone ([facility]) -- JULIETTE HERNÁNDEZ ([id number]) 1995 F Date Time Provider Department 10/18/21 JUAN ANTONIO ESQUED[facility] During your visit today, we recorded the [...] by JUAN ANTONIO ESQUEDA on 10/18/21 Normal [facility] Bact Vag Amplificationon Bact Vag Amplification Positive Critically abnormal Negative for bacterial vaginosis [facility] Comment on above: Performed By: #### C VTV, BVAMP #### [facility] [address] [place], [place] [address] CNOVon 10-16-2021 [facility] Office Visit ([facility] ) -- JULIETTE HERNÁNDEZ ([id number]) 1995 F Date Time Provider Department 10/16/21 9:05 AM JUAN ANTONIO ESQUEDA EX[facility] During your visit today, we recorded the following information about you: Temperature Pulse Respiration Blood pressure 98 degrees 64/minute 20/minute 117/66 Weight Last Period 70.1 kg 10/09/21 Juan Antonio Esqueda PA-C 10/16/2021 10:24 AM Addendum This note was created using Cuiporiter. Subjective Juliette Hernández is a 26 year [...] Exam Vitals reviewed. Exam conducted with a sap technical architect present (Latia Pantoja MA present for exam). [...] VAGINOSIS AMPL (more content not included)... Normal [facility] Sultana Trich Amplon 021 [employer] glabrata RNA Negative Normal Negative [facility] Comment on above: Performed By: #### C VTV, BVAMP #### [facility] [address] [place], [place] [address] Sultana sp group RNA Positive Critically abnormal Negative [facility] Comment on above: Performed By: #### C VTV, BVAMP #### [facility] [place] [phone] Trichomonas RNA Negative Normal [facility] Comment on above: Performed By: #### C VTV, BVAMP #### [facility] [place] [phone] GC/Chlamydia Amplifon 2020 Chlamydia Amplif Negative Normal [facility] Comment on above: Performed By: #### G CCT #### [facility] [address] [place], [place] [address] GC Amplification Negative Normal [facility] Comment on above: Performed By: #### G CCT #### [facility] [address] [address] GC/Chlam Amp Source Cervix Normal [facility] Comment on above: Performed By: #### G CCT #### [facility] [address] [phone] Urine Cultureon 10-16-2021 Bacteria identified Cx Nom (U) Sp. Request/Comment: - Specimen received in preservative Culture Result - <10,000 CFU/ml Normal urogenital brenda Normal [facility] Comment on above: Performed By: #### U RCUL #### [facility] [address] [phone] CNPNon 07-17-2021 CNPN Telephone (EXPCH) -- JULIETTE HERNÁNDEZ ([id number]) 1995 F Date Time Provider Department 07/17/21 RETA CHAVEZ [facility] During your visit [...] by RETA CHAVEZ on 07/17/[address] [facility] CNCOon 07-15-2021 CNCO Letter Text Normal [facility] CNOVon 07-15-2021 CNOV Office Visit (EXPCHC ) -- JULIETTE HERNÁNDEZ ([id number]) 1995 F Date Time Provider Department 07/15/21 1:15 PM RUBINA LALA EXPCHC During your visit today, we recorded the following information about you: Temperature Pulse Blood pressure Last Period 97.7 degrees 71/minute 117/75 05/07/21 Rubina Lala PA-C 07/15/2021 1:58 PM Signed This note was created using [employer]. Subjective Juliette Hernández is a 26 year [...] while awaiting COVID results. - 2019 CORONAVIRUS Ruibna Lala PA-C 07/15/2021 1:48 PM Signed Beginning Home Isolation Isolation is used to separate people infected with SARS-CoV-2, the virus that causes COVID-19 (more content not included)... Normal [facility] Coronavirus 2019on 1 SARS-CoV-2 (COVID-19) RNA JOSE R+probe Ql (Unsp spec) UPPER RESPIRATORY TRACT SWAB Normal [facility] Comment on above: Performed By: #### C OVID #### [place] [address] [place] [address] SARS-CoV-2 (COVID-19) RNA JOSE R+probe Ql (Unsp spec) Positive for COVID19 (SARS CoV2) by RT-PCR or equivalent method. Critically abnormal Negative for COVID19 (SARS CoV2) by RT-PCR or equivalent method. [facility] Comment on above: Result Comment: This test was developed and its performance characteristics determined by [facility] Pathology and Laboratory Medicine [place]. This test has been authorized by FDA under an Emergency Use Authorization (EUA). This test has been validated in accordance with the FDA's Guidance Document Policy for Diagnostics Testing in Laboratories Certified to Perform High Complexity Testing under CLIA prior to Emergency use Authorization for Coronavirus Disease 2019 during the Public Health Emergency issued on January 02, 2020. Test performed by [facility], [facility] [place], [email or web address] [address]. Performed By: #### C OVID #### [facility] [place], [place] [address] Cult, Urineon 06-02-2020 Bacteria identified Cx Nom (U) PATIENT: JULIETTE HERNÁNDEZ [place] [facility] [place]#: [id number] : [birth year] AGE: SEX: F ORDERED BY: RADHA WISDOM: URINE COLLECTED: 06/02/20 12:48ANTIBIOTICS AT MISSY.: RECEIVED : 06/03/20 00:40SITE: Clean Catch/Voided R E S U L T S URINE CULTURE,BACTERIAL FINAL 06/03/20 23:49 NO SIGNIFICANT GROWTH. WW-NEGA-Vjev [address] [employer] Work Phone: GC + Chlamydia By Amplified Detectionon 06-02-2020 C. trachomatis rRNA JOSE R+probe Ql (Unsp spec) Positive Abnormal Negative IR-OJZC-Ukyf [facility] [employer] Work Phone: N. gonorrhoeae rRNA JOSE R+probe Ql (Unsp spec) Positive Abnormal Negative UQ-TLVW-Pptj [facility] [employer] Work Phone: Comment on above: SOURCE: Urine IO UA (automated w/o microsc opy)on 06-02-2020 Protein (U) [Mass/Vol] Negative OR-IEGX-Yayq [facility] Work Phone: IO UA (automated w/o microscopy) Negative OX-YXJN-Lqrz [facility] Work Phone: IO UA (automated w/o microscopy) Hemolyzed trace FV-AERI-Kjxt [address] [facility] Work Phone: IO UA (automated w/o microscopy) 7.5 AE-OVQQ-Pxoq [facility] Work Phone: IO UA (automated w/o microscopy) Yellow UC-KSBL-Pqbm [address] [employer] Work Phone: IO UA (automated w/o microscopy) Normal UN-LERI-Ousx [address] [facility] Work Phone: IO UA (automated w/o microscopy) 1.015 YL-XGCS-Btiz [facility] Work Phone: IO UA (automated w/o microscopy) Clear DF-SNKK-Qfic [facility] [facility] Work Phone: Otheron 06-02-2020 Negative Negative UA-ASZA-Shsu [address] [employer] Work Phone: Comment on above: SOURCE: Urine CBCon 01-20-2019 Erythrocyte distribution width Ratio (RBC) 13.9 % Normal 12.0-15.4 [facility] Comment on above: Performed By: #### U ARFX #### [facility] [address] [place] [address] Hematocrit Volume Fraction (Bld) 27.4 % Low 36.5-46.6 [facility] Comment on above: Performed By: #### U ARFX #### [facility] [address] [place] [address] Hemoglobin mass conc (Bld) 9.0 g/dL Low 11.8-15.3 [facility] Comment on above: Performed By: #### U ARFX #### [facility] [address] [place] [address] MCH Entitic mass (RBC) 30.1 pg Normal 27.5-33.0 [facility] Comment on above: Performed By: #### U ARFX #### [facility] [address] [place] [address] MCHC mass conc (RBC) 32.8 g/dL Normal 30.1-35.0 [facility] Comment on above: Performed By: #### U ARFX #### [facility] [address] [place] [address] MCV Entitic volume (RBC) 91.6 fL Normal 85.4-100.0 [facility] Comment on above: Performed By: #### U ARFX #### [facility] [address] [place] [address] NRBC Absolute 0.00 10*3/uL Normal [facility] Comment on above: Performed By: #### U ARFX #### [facility] [address] [place] [address] NRBC Automated 0.0 /100{WBCs} Normal [facility] Comment on above: Performed By: #### U ARFX #### [facility] [address] [place] [address] Platelet mean volume Entitic volume (Bld) 10.4 fL Normal 9.9-12.1 [facility] Comment on above: Performed By: #### U ARFX #### [facility] [address] [place] [address] Platelets #/vol (Bld) 181 10*3/uL Normal 155-404 [facility] Comment on above: Performed By: #### U ARFX #### [facility] [address] [place] [address] RBC #/vol (Bld) 2.99 10*6/uL Low 3.85-5.10 [facility] Comment on above: Performed By: #### U ARFX #### [facility] [address] [place], [place] [phone] RDW SD 46.8 fL Normal 39.3-48.6 [facility] Comment on above: Performed By: #### U ARFX #### [facility] [address] [place] [address] WBC #/vol (Bld) 11.7 10*3/uL High 4.4-9.9 [facility] Comment on above: Performed By: #### U ARFX #### [facility] [address] [place] [address] CBC With Differentialon 01-02 Basophils #/vol (Bld) 0.04 10*3/uL Normal 0.01-0.07 [facility] Comment on above: Performed By: #### U ARFX #### [facility] [address] [place] [address] Basophils/100 WBC (Bld) 0.4 % Normal 0.1-1.2 [facility] Comment on above: Performed By: #### U ARFX #### [facility] [address] [place] [address] Eosinophils #/vol (Bld) 0.03 10*3/uL Low 0.04-0.50 [facility] Comment on above: Performed By: #### U ARFX #### [facility] [address] [place] [address] Eosinophils/100 WBC (Bld) 0.3 % Normal 0.0-8.1 [facility] Comment on above: Performed By: #### U ARFX #### [facility] [address] [place] [address] Erythrocyte distribution width Ratio (RBC) 14.0 % Normal 12.0-15.4 [facility] Comment on above: Performed By: #### U ARFX #### [facility] [address] [place] [address] Hematocrit Volume Fraction (Bld) 32.8 % Low 36.5-46.6 [facility] Comment on above: Performed By: #### U ARFX #### [facility] [address] [place] [address] Hemoglobin mass conc (Bld) 10.8 g/dL Low 11.8-15.3 [facility] Comment on above: Performed By: #### U ARFX #### [facility] [address] [place] [address] Imm Grans Absolute 0.04 10*3/uL Normal 0.00-0.21 [facility] Comment on above: Performed By: #### U ARFX #### [facility] [address] [place] [address] Immature granulocytes #/vol (Bld) 0.4 % Normal [facility] Comment on above: Performed By: #### U ARFX #### [facility] [address] [place] [address] Lymphocytes #/vol (Bld) 1.96 10*3/uL Normal 0.40-2.84 [facility] Comment on above: Performed By: #### U ARFX #### [facility] [address] [place] [address] Lymphocytes/100 WBC (Bld) 19.6 % Normal 15.7-50.5 [facility] Comment on above: Performed By: #### U ARFX #### [facility] [address] [place] [address] MCH Entitic mass (RBC) 30.2 pg Normal 27.5-33.0 [facility] Comment on above: Performed By: #### U ARFX #### [facility] [address] [place] [address] MCHC mass conc (RBC) 32.9 g/dL Normal 30.1-35.0 [facility] Comment on above: Performed By: #### U ARFX #### [facility] [address] [place] [address] MCV Entitic volume (RBC) 91.6 fL Normal 85.4-100.0 [facility] Comment on above: Performed By: #### U ARFX #### [facility] [address] [place] [address] Monocytes #/vol (Bld) 1.00 10*3/uL High 0.25-0.83 [facility] Comment on above: Performed By: #### U ARFX #### [facility] [address] [place] [address] Monocytes/100 WBC (Bld) 10.0 % Normal 4.8-12.7 [facility] Comment on above: Performed By: #### U ARFX #### [facility] [address] [place] [address] Neutrophils Absolute 6.91 10*3/uL High 1.95-6.85 [facility] Comment on above: Performed By: #### U ARFX #### [facility] [address] [place] [address] Neutrophils/100 WBC (Bld) 69.3 % Normal 36.8-73.2 [facility] Comment on above: Performed By: #### U ARFX #### [facility] [address] [place] [address] NRBC Absolute 0.00 10*3/uL Normal [facility] Comment on above: Performed By: #### U ARFX #### [facility] [address] [place] [address] NRBC Automated 0.0 /100{WBCs} Normal [facility] Comment on above: Performed By: #### U ARFX #### [facility] [address] [place] [address] Platelet mean volume Entitic volume (Bld) 11.0 fL Normal 9.9-12.1 [facility] Comment on above: Performed By: #### U ARFX #### [facility] [address] [place] [address] Platelets #/vol (Bld) 186 10*3/uL Normal 155-404 [facility] Comment on above: Performed By: #### U ARFX #### [facility] [address] [place] [address] RBC #/vol (Bld) 3.58 10*6/uL Low 3.85-5.10 [facility] Comment on above: Performed By: #### U ARFX #### [facility] [address] [place], [place] [phone] RDW SD 46.7 fL Normal 39.3-48.6 [facility] Comment on above: Performed By: #### U ARFX #### [facility] [address] [place] [address] WBC #/vol (Bld) 10.0 10*3/uL High 4.4-9.9 [facility] Comment on above: Performed By: #### U ARFX #### [facility] [address] [place], [place] [phone] Drugs of Abuse, Urine(7)on 0 01-19-2019 Amphetamines/Metam phetamines, Urine Not Detected Normal [facility] Comment on above: Performed By: #### U ARFX #### [facility] [address] [place] [address] Barbiturates, Urine Not Detected Normal [facility] Comment on above: Performed By: #### U ARFX #### [facility] [address] [place] [address] Benzodiazepines, Urine Not Detected Normal [facility] Comment on above: Performed By: #### U ARFX #### [facility] [address] [place] [address] Cannabinoids, Urine Not Detected Normal [facility] Comment on above: Performed By: #### U ARFX #### [facility] [address] [place] [address] Cocaine, Urine Not Detected Normal [facility] Comment on above: Performed By: #### U ARFX #### [facility] [address] [place] [address] Methadone, Urine Not Detected Normal [facility] Comment on above: Performed By: #### U ARFX #### [facility] [address] [place] [address] Opiates, Urine Not Detected Normal [facility] Comment on above: Performed By: #### U ARFX #### [facility] [address] [place] [address] PCP, Urine Not Detected Normal [facility] [...] 25 Performed By: #### U ARFX #### [facility] [address] [place] [address] Pathology ([facility])on 01-19-2019 Pathology ([facility]) Copy To: KEYSHA [place] FINAL SURGICAL [...] SPECIMEN(S): (A) PLACENTA, THIRD TRIMESTER Performed at [facility], [address] [place] [address] GROSS DESCRIPTION: Received fresh, labeled with the [...] are noted. The surface is slightly opaque. Bricklayer Supervisor sections of cord, membranes, and placenta are [...] above: Performed By: #### U ARFX #### [facility] [address] [place] [address] Type and Screenon 01-19-2019 Group and Rh Positive Normal [facility] Comment on above: Performed By: #### U ARFX #### [facility] [address] [place] [address] Urinalysison 01-19-2019 Amorphous Crystal Occasional Normal None [facility] Comment on above: Performed By: #### U ARFX #### [facility] [address] [place] [address] Appearance Nom (U) Cloudy Normal Clear [facility] Comment on above: Performed By: #### U ARFX #### [facility] [address] [place] [address] Ascorbic Acid Negative Normal Negative [facility] Comment on above: Performed By: #### U ARFX #### [facility] [address] [place] [address] Automated Urine Microscopy Performed Normal [facility] Comment on above: Performed By: #### U ARFX #### [facility] [address] [place] [address] Bacteria LM.HPF #/area (Urine sed) Occasional Normal None [facility] Comment on above: Performed By: #### U ARFX #### [facility] [address] [place] [address] Bilirubin mass conc Negative Normal Negative [facility] Comment on above: Performed By: #### U ARFX #### [facility] [address] [place] [address] Blood Negative Normal Negative [facility] Comment on above: Performed By: #### U ARFX #### [facility] [address] [place] [address] Color Nom (U) Yellow Normal [facility] Comment on above: Performed By: #### U ARFX #### [facility] [address] [place] [address] Glucose mass conc Negative Normal Negative [facility] Comment on above: Performed By: #### U ARFX #### [facility] [address] [place] [address] Ketones Ql (U) Negative Normal Negative [facility] Comment on above: Performed By: #### U ARFX #### [facility] [address] [place] [address] Leukocytes Esterase Large Abnormal Negative [facility] Comment on above: Performed By: #### U ARFX #### [facility] [address] [place] [address] Nitrite Ql (U) Negative Normal Negative [facility] Comment on above: Performed By: #### U ARFX #### [facility] [address] [place] [address] pH (Bld) 7.0 Normal 5.0-9.0 [facility] Comment on above: Performed By: #### U ARFX #### [facility] [address] [place] [address] Protein mass conc (U) Negative Normal Negative [facility] Comment on above: Performed By: #### U ARFX #### [facility] [address] [place] [address] RBC 11 /[HPF] Normal 0-3 [facility] Comment on above: Performed By: #### U ARFX #### [facility] [address] [place] [address] Specific gravity Relative Density (U) 1.010 Normal 1.003-1.035 [facility] Comment on above: Performed By: #### U ARFX #### [facility] [address] [place] [address] Squamous Epithelial Cells 29 /[HPF] Normal 0-5 [facility] Comment on above: Performed By: #### U ARFX #### [facility] [address] [place] [address] Urobilinogen Qn (U) 2.0 mg/dL Abnormal Negative [facility] Comment on above: Result Comment: Due to a manufacturing issue, low positive urobilinogen results may be falsely positive. Correlate with urine bilirubin and additional clinical/laboratory findings to assess the risk of hemolytic anemia or liver disease. If clinically indicated, repeat testing with an alternate method is available by contacting the laboratory within 24 hours. Performed By: #### U ARFX #### [facility] [address] [place], [place] [phone] WBC 32 /[HPF] Normal 0-5 [facility] Comment on above: Performed By: #### U ARFX #### [facility] [address] [place] [address] Culture, Group B Strep Scree non 12-25-2018 Culture, Group B Strep Screen BILL#: [id number] : [birth year] AGE: SEX: F AMBULATORY SOURCE: COLLECTED: 12/25/18 19:16 ANTIBIOTICS AT MISSY.: RECEIVED : 12/25/18 22:00 SITE: R E S U L T S GROUP B STREP SCREEN FINAL 12/27/18 08:44 NEGATIVE FOR GROUP B BETA STREP. Normal [facility] Comment on above: Performed By: #### C XBUR #### [facility] [address] [place] [address] Culture, Urine Bacterialon 0 12-25-2018 Culture, Urine Bacterial BILL#: [id number] : [birth year] AGE: SEX: F AMBULATORY SOURCE: URINE COLLECTED: 12/25/18 19:15 ANTIBIOTICS AT MISSY.: RECEIVED : 12/25/18 21:58 SITE: Unspecified R E S U L T S URINE CULTURE,BACTERIAL FINAL 12/26/18 15:49 NO SIGNIFICANT GROWTH. Normal [facility] Comment on above: Performed By: #### C XBUR #### [facility] [address] [place] [address] N. gonorrhoeae/C. trachomati s, Amplifiedon 12-25-2018 Chlamydia trachomatis, Amplified Negative Normal Negative [facility] Comment on above: Performed By: #### C XBUR #### [facility] [address] [place] [address] GC/CHLAM/TRICA Source Swab-Endocerv Normal [facility] Comment on above: Performed By: #### C XBUR #### [facility] [address] [place] [address] Neisseria gonorrhoeae, Amplified Negative Normal Negative [facility] Comment on above: Performed By: #### C XBUR #### [facility] [address] [place] [address] Trichmonas, Amplified Detect ionon 12-25-2018 Trichomonas, Amplified Negative Normal Negative [facility] Comment on above: Performed By: #### C XBUR #### [facility] [address] [place] [address] CBCon 12-11-2018 Erythrocyte distribution width Ratio (RBC) 13.0 % Normal 12.0-15.4 [facility] Comment on above: Performed By: #### C XBUR #### [facility] [address] [place] [address] Hematocrit Volume Fraction (Bld) 33.0 % Low 36.5-46.6 [facility] Comment on above: Performed By: #### C XBUR #### [facility] [address] [place] [address] Hemoglobin mass conc (Bld) 10.8 g/dL Low 11.8-15.3 [facility] Comment on above: Performed By: #### C XBUR #### [facility] [address] [place] [address] MCH Entitic mass (RBC) 29.8 pg Normal 27.5-33.0 [facility] Comment on above: Performed By: #### C XBUR #### [facility] [address] [place] [address] MCHC mass conc (RBC) 32.7 g/dL Normal 30.1-35.0 [facility] Comment on above: Performed By: #### C XBUR #### [facility] [address] [place] [address] MCV Entitic volume (RBC) 91.2 fL Normal 85.4-100.0 [facility] Comment on above: Performed By: #### C XBUR #### [facility] [address] [place] [address] NRBC Absolute 0.00 10*3/uL Normal [facility] Comment on above: Performed By: #### C XBUR #### [facility] [address] [place] [address] NRBC Automated 0.0 /100{WBCs} Normal [facility] Comment on above: Performed By: #### C XBUR #### [facility] [address] [place] [address] Platelet mean volume Entitic volume (Bld) 9.8 fL Low 9.9-12.1 [facility] Comment on above: Performed By: #### C XBUR #### [facility] [address] [place] [address] Platelets #/vol (Bld) 228 10*3/uL Normal 155-404 [facility] Comment on above: Performed By: #### C XBUR #### [facility] [address] [place] [address] RBC #/vol (Bld) 3.62 10*6/uL Low 3.85-5.10 [facility] Comment on above: Performed By: #### C XBUR #### [facility] [address] [place] [address] RDW SD 43.0 fL Normal 39.3-48.6 [facility] Comment on above: Performed By: #### C XBUR #### [facility] [address] [place] [address] WBC #/vol (Bld) 9.6 10*3/uL Normal 4.4-9.9 [facility] Comment on above: Performed By: #### C XBUR #### [facility] [address] [place] [address] Comprehensive Metabolic Pane shad 12-11-2018 Albumin mass conc 3.4 g/dL Normal 3.4-5.0 [facility] Comment on above: Performed By: #### C XBUR #### [facility] [address] [place] [address] Albumin/Globulin mass ratio 1.1 {ratio} Normal 0.9-2.4 [facility] Comment on above: Performed By: #### C XBUR #### [facility] [address] [place] [address] ALP enzyme act/vol 97 U/L Normal 45-117 [facility] Comment on above: Performed By: #### C XBUR #### [facility] [address] [place] [address] ALT enzyme act/vol 16 U/L Normal 7-45 [facility] Comment on above: Performed By: #### C XBUR #### [facility] [address] [place] [address] Anion gap molar conc 13 mmol/L Normal 10-20 [facility] Comment on above: Performed By: #### C XBUR #### [facility] [address] [place] [address] AST enzyme act/vol 14 U/L Normal 13-39 [facility] Comment on above: Performed By: #### C XBUR #### [facility] [address] [place] [address] Bilirubin mass conc 0.4 mg/dL Normal 0.0-1.2 [facility] Comment on above: Performed By: #### C XBUR #### [facility] [address] [place] [address] Calcium mass conc 8.8 mg/dL Normal 8.6-10.3 [facility] Comment on above: Performed By: #### C XBUR #### [facility] [address] [place] [address] Chloride molar conc 103 mmol/L Normal 98-107 [facility] Comment on above: Performed By: #### C XBUR #### [facility] [address] [place] [address] Creatinine mass conc 0.41 mg/dL Low 0.50-1.05 [facility] Comment on above: Performed By: #### C XBUR #### [facility] [address] [place] [address] GFR/1.73 sq M.predicted MDRD vol rate/area mL/min/{1.73_m2} Normal [facility] Comment on above: Result Comment: Inte rpretation for Chronic Kidney Disease: Stages 1&2 >60 Healthy or potential kidney damage. Mild decrease of GFR. Stage 3 30-59 Moderate decrease of GFR. Stage 4 15-29 Severe decrease of GFR. Stage 5 <15 Kidney failure or on dialysis. Performed By: #### C XBUR #### [facility] [address] [place] [address] Glucose mass conc 87 mg/dL Normal 70-100 [facility] Comment on above: Performed By: #### C XBUR #### [facility] [address] [place] [address] HCO3 molar conc (Bld) 26 mmol/L Normal 21-32 [facility] Comment on above: Performed By: #### C XBUR #### [facility] [address] [place] [address] Potassium molar conc 4.1 mmol/L Normal 3.5-5.1 [facility] Comment on above: Performed By: #### C XBUR #### [facility] [address] [place] [address] Protein mass conc 6.4 g/dL Normal 6.4-8.2 [facility] Comment on above: Performed By: #### C XBUR #### [facility] [address] [place] [address] Sodium molar conc 138 mmol/L Normal 136-145 [facility] Comment on above: Performed By: #### C XBUR #### [facility] [address] [place] [address] Urea nitrogen mass conc 5 mg/dL Low 6-23 [facility] Comment on above: Performed By: #### C XBUR #### [facility] [address] [place] [address] Urea nitrogen/Creatinin e mass ratio 12 mg/mg Normal 5-25 [facility] Comment on above: Performed By: #### C XBUR #### [facility] [address] [place] [address] Drugs of Abuse, Urine(7)on 0 12-11-2018 Amphetamines/Metam phetamines, Urine Not Detected Normal [facility] Comment on above: Performed By: #### C XBUR #### [facility] [address] [place] [address] Barbiturates, Urine Not Detected Normal [facility] Comment on above: Performed By: #### C XBUR #### [facility] [address] [place] [address] Benzodiazepines, Urine Not Detected Normal [facility] Comment on above: Performed By: #### C XBUR #### [facility] [address] [place] [address] Cannabinoids, Urine Not Detected Normal [facility] Comment on above: Performed By: #### C XBUR #### [facility] [address] [place] [address] Cocaine, Urine Not Detected Normal [facility] Comment on above: Performed By: #### C XBUR #### [facility] [address] [place] [address] Methadone, Urine Not Detected Normal [facility] Comment on above: Performed By: #### C XBUR #### [facility] [address] [place] [address] Opiates, Urine Not Detected Normal [facility] Comment on above: Performed By: #### C XBUR #### [facility] [address] [place] [address] PCP, Urine Not Detected Normal [facility] [...] 25 Performed By: #### C XBUR #### [facility] [address] [place] [address] Urinalysison 12-11-2018 Amorphous Crystal Occasional Normal None [facility] Comment on above: Performed By: #### C XBUR #### [facility] [address] [place] [address] Appearance Nom (U) Cloudy Normal Clear [facility] Comment on above: Performed By: #### C XBUR #### [facility] [address] [place] [address] Ascorbic Acid Negative Normal Negative [facility] Comment on above: Performed By: #### C XBUR #### [facility] [address] [place] [address] Automated Urine Microscopy Performed Normal [facility] Comment on above: Performed By: #### C XBUR #### [facility] [address] [place] [address] Bilirubin mass conc Negative Normal Negative [facility] Comment on above: Performed By: #### C XBUR #### [facility] [address] [place] [address] Blood Negative Normal Negative [facility] Comment on above: Performed By: #### C XBUR #### [facility] [address] [place] [address] Color Nom (U) Yellow Normal [facility] Comment on above: Performed By: #### C XBUR #### [facility] [address] [place] [address] Glucose mass conc Negative Normal Negative [facility] Comment on above: Performed By: #### C XBUR #### [facility] [address] [place] [address] Ketones Ql (U) Negative Normal Negative [facility] Comment on above: Performed By: #### C XBUR #### [facility] [address] [place] [address] Leukocytes Esterase Trace Abnormal Negative [facility] Comment on above: Performed By: #### C XBUR #### [facility] [address] [place] [address] Mucous Rare Normal None [facility] Comment on above: Performed By: #### C XBUR #### [facility] [address] [place] [address] Nitrite Ql (U) Negative Normal Negative [facility] Comment on above: Performed By: #### C XBUR #### [facility] [address] [place] [address] pH (Bld) 7.0 Normal 5.0-9.0 [facility] Comment on above: Performed By: #### C XBUR #### [facility] [address] [place] [address] Protein mass conc (U) Negative Normal Negative [facility] Comment on above: Performed By: #### C XBUR #### [facility] [address] [place] [address] RBC 3 /[HPF] Normal 0-3 [facility] Comment on above: Performed By: #### C XBUR #### [facility] [address] [place] [address] Specific gravity Relative Density (U) 1.014 Normal 1.003-1.035 [facility] Comment on above: Performed By: #### C XBUR #### [facility] [address] [place] [address] Squamous Epithelial Cells 23 /[HPF] Normal 0-5 [facility] Comment on above: Performed By: #### C XBUR #### [facility] [address] [place] [address] Urobilinogen Qn (U) <2.0 Normal Negative [facility] [...] hours. Performed By: #### C XBUR #### [facility] [address] [place] [address] WBC 3 /[HPF] Normal 0-5 [facility] Comment on above: Performed By: #### C XBUR #### [facility] [address] [place] [address] Drugs of Abuse, Urine(7)on 0 - Amphetamines/Metam phetamines, Urine Not Detected Normal [facility] Comment on above: Performed By: #### C XBUR #### [facility] [address] [place] [address] Barbiturates, Urine Not Detected Normal [facility] Comment on above: Performed By: #### C XBUR #### [facility] [address] [place] [address] Benzodiazepines, Urine Not Detected Normal [facility] Comment on above: Performed By: #### C XBUR #### [facility] [address] [place] [address] Cannabinoids, Urine Not Detected Normal [facility] Comment on above: Performed By: #### C XBUR #### [facility] [address] [place] [address] Cocaine, Urine Not Detected Normal [facility] Comment on above: Performed By: #### C XBUR #### [facility] [address] [place] [address] Methadone, Urine Not Detected Normal [facility] Comment on above: Performed By: #### C XBUR #### [facility] [address] [place] [address] Opiates, Urine Not Detected Normal [facility] Comment on above: Performed By: #### C XBUR #### [facility] [address] [place] [address] PCP, Urine Not Detected Normal [facility] [...] 25 Performed By: #### C XBUR #### [facility] [address] [place] [address] Urinalysison 12-01-2018 Appearance Nom (U) Clear Normal Clear [facility] Comment on above: Performed By: #### G CCHA #### [facility] [address] [place] [address] Ascorbic Acid Positive Normal Negative [facility] Comment on above: Result Comment: Pres ence of Ascorbic Acid may interfere with the detection of blood, glucose, nitrite, and bilirubin. Performed By: #### G CCHA #### [facility] [address] [place] [address] Automated Urine Microscopy Performed Normal [facility] Comment on above: Performed By: #### G CCHA #### [facility] [address] [place] [address] Bilirubin mass conc Negative Normal Negative [facility] Comment on above: Performed By: #### G CCHA #### [facility] [address] [place] [address] Blood Negative Normal Negative [facility] Comment on above: Performed By: #### G CCHA #### [facility] [address] [place] [address] Budding Yeast Rare Normal None [facility] Comment on above: Performed By: #### G CCHA #### [facility] [address] [place] [address] Color Nom (U) Yellow Normal [facility] Comment on above: Performed By: #### G CCHA #### [facility] [address] [place] [address] Glucose mass conc Negative Normal Negative [facility] Comment on above: Performed By: #### G CCHA #### [facility] [address] [place] [address] Ketones Ql (U) Negative Normal Negative [facility] Comment on above: Performed By: #### G CCHA #### [facility] [address] [place] [address] Leukocytes Esterase Small Abnormal Negative [facility] Comment on above: Performed By: #### G CCHA #### [facility] [address] [place] [address] Mucous Rare Normal None [facility] Comment on above: Performed By: #### [facility] #### [facility] [address] [place] [address] Nitrite Ql (U) Negative Normal Negative [facility] Comment on above: Performed By: #### [facility] #### [facility] [address] [place] [address] pH (Bld) 7.0 Normal 5.0-9.0 [facility] Comment on above: Performed By: #### [facility] #### [facility] [address] [place] [address] Protein mass conc (U) Negative Normal Negative [facility] Comment on above: Performed By: #### [facility] #### [facility] [address] [place] [address] RBC 3 /[HPF] Normal 0-3 [facility] Comment on above: Performed By: #### [facility] #### [facility] [address] [place] [address] Specific gravity Relative Density (U) 1.016 Normal 1.003-1.035 [facility] Comment on above: Performed By: #### [facility] #### [facility] [address] [place] [address] Squamous Epithelial Cells 12 /[HPF] Normal 0-5 [facility] Comment on above: Performed By: #### [facility] #### [facility] [address] [place] [address] Urobilinogen Qn (U) <2.0 Normal Negative [facility] [...] hours. Performed By: #### G CCHA #### [facility] [address] [place] [address] WBC 2 /[HPF] Normal 0-5 [facility] Comment on above: Performed By: #### G CCHA #### [facility] [address] [place] [address] Vaginal Pathogen DNAon 12-01 Estrada Vag DNA Probe Positive Abnormal Negative [facility] Comment on above: Performed By: #### C XBUR #### [facility] [address] [place] [address] Protein mass conc Negative Normal Negative [facility] Comment on above: Performed By: #### C XBUR #### [facility] [address] [place] [address] Trich Vag DNA Probe Negative Normal Negative [facility] Comment on above: Performed By: #### C XBUR #### [facility] [address] [place] [address] Ferritinon 11-13-2018 Ferritin mass conc 6 ng/mL Low 8-150 [facility] Comment on above: Performed By: #### G CCHA #### [facility] [address] [place] [address] Folate/B12on 11-13-2018 Cobalamin (Vitamin B12) mass conc 239 pg/mL Normal 211-911 [facility] Comment on above: Performed By: #### G CCHA #### [facility] [address] [place] [address] Folate 21.10 ng/mL Normal [facility] Comment on above: Result Comment: Norm al Range >5.0 Performed By: #### G CCHA #### [facility] [address] [place] [address] N. gonorrhoeae/C. trachomati s, Amplifiedon 11-13-2018 Chlamydia trachomatis, Amplified Negative Normal Negative [facility] Comment on above: Performed By: #### [facility] #### [facility] [address] [place] [address] GC/CHLAM/TRICA Source Swab-Endocerv Normal [facility] Comment on above: Performed By: #### [facility] #### [facility] [address] [place] [address] Neisseria gonorrhoeae, Amplified Negative Normal Negative [facility] Comment on above: Performed By: #### [facility] #### [facility] [address] [place] [address] Vaginal Pathogen DNAon 11-13 Estrada Vag DNA Probe Positive Abnormal Negative [facility] Comment on above: Performed By: #### [facility] #### [facility] [address] [place] [address] Protein mass conc Positive Abnormal Negative [facility] Comment on above: Performed By: #### [facility] #### [facility] [address] [place] [address] Trich Vag DNA Probe Negative Normal Negative [facility] Comment on above: Performed By: #### [facility] #### [facility] [address] [place] [address] CBCon 10-24-2018 Erythrocyte distribution width Ratio (RBC) 13.2 % Normal 12.0-15.4 [facility] Comment on above: Performed By: #### [facility] #### [facility] [address] [place] [address] Hematocrit Volume Fraction (Bld) 31.3 % Low 36.5-46.6 [facility] Comment on above: Performed By: #### [facility] #### [facility] [address] [place] [address] Hemoglobin mass conc (Bld) 10.3 g/dL Low 11.8-15.3 [facility] Comment on above: Performed By: #### [facility] #### [facility] [address] [place] [address] MCH Entitic mass (RBC) 30.0 pg Normal 27.5-33.0 [facility] Comment on above: Performed By: #### [facility] #### [facility] [address] [place] [address] MCHC mass conc (RBC) 32.9 g/dL Normal 30.1-35.0 [facility] Comment on above: Performed By: #### [facility] #### [facility] [address] [place] [address] MCV Entitic volume (RBC) 91.3 fL Normal 85.4-100.0 [facility] Comment on above: Performed By: #### G CCHA #### [facility] [address] [place] [address] NRBC Absolute 0.00 10*3/uL Normal [facility] Comment on above: Performed By: #### [facility] #### [facility] [address] [place] [address] NRBC Automated 0.0 /100{WBCs} Normal [facility] Comment on above: Performed By: #### G CCHA #### [facility] [address] [place] [address] Platelet mean volume Entitic volume (Bld) 10.2 fL Normal 9.9-12.1 [facility] Comment on above: Performed By: #### G CCHA #### [facility] [address] [place] [address] Platelets #/vol (Bld) 233 10*3/uL Normal 155-404 [facility] Comment on above: Performed By: #### G CCHA #### [facility] [address] [place] [address] RBC #/vol (Bld) 3.43 10*6/uL Low 3.85-5.10 [facility] Comment on above: Performed By: #### G CCHA #### [facility] [address] [place] [address] RDW SD 44.4 fL Normal 39.3-48.6 [facility] Comment on above: Performed By: #### G CCHA #### [facility] [address] [place] [address] WBC #/vol (Bld) 8.8 10*3/uL Normal 4.4-9.9 [facility] Comment on above: Performed By: #### G CCHA #### [facility] [address] [place] [address] Glucose, 1 H Post 50 Gram (P regnancy Screen)on 10-24-2018 Glucose, 1 H Post 50 Gram ( Screen) 114 mg/dL Normal 55-140 [facility] Comment on above: Performed By: #### G CCHA #### [facility] [address] [place] [address] N. gonorrhoeae/C. trachomati s, Amplifiedon 10-16-2018 Chlamydia trachomatis, Amplified Positive Abnormal Negative [facility] Comment on above: Performed By: #### G CCHA #### [facility] [address] [place] [address] GC/CHLAM/TRICA Source Urine Normal [facility] Comment on above: Performed By: #### G CCHA #### [facility] [address] [place] [address] Neisseria gonorrhoeae, Amplified Positive Abnormal Negative [facility] Comment on above: Performed By: #### [facility] #### [facility] [address] [place] [address] CBCon 09-18-2018 Erythrocyte distribution width Ratio (RBC) 13.5 % Normal 12.0-15.4 [facility] Comment on above: Performed By: #### 2 [id number] #### [facility] [address] [place] [address] Hematocrit Volume Fraction (Bld) 34.6 % Low 36.5-46.6 [facility] Comment on above: Performed By: #### 2 [id number] #### [facility] [address] [place] [address] Hemoglobin mass conc (Bld) 11.3 g/dL Low 11.8-15.3 [facility] Comment on above: Performed By: #### 2 [id number] #### [facility] [address] [place] [address] MCH Entitic mass (RBC) 29.5 pg Normal 27.5-33.0 [facility] Comment on above: Performed By: #### 2 [id number] #### [facility] [address] [place] [address] MCHC mass conc (RBC) 32.7 g/dL Normal 30.1-35.0 [facility] Comment on above: Performed By: #### 2 [id number] #### [facility] [address] [place] [address] MCV Entitic volume (RBC) 90.3 fL Normal 85.4-100.0 [facility] Comment on above: Performed By: #### 2 [id number] #### [facility] [address] [place] [address] NRBC Absolute 0.00 10*3/uL Normal [facility] Comment on above: Performed By: #### 2 [id number] #### [facility] [address] [place] [address] NRBC Automated 0.0 /100{WBCs} Normal [facility] Comment on above: Performed By: #### 2 [id number] #### [facility] [address] [place] [address] Platelet mean volume Entitic volume (Bld) 10.7 fL Normal 9.9-12.1 [facility] Comment on above: Performed By: #### 2 [id number] #### [facility] [address] [place] [address] Platelets #/vol (Bld) 255 10*3/uL Normal 155-404 [facility] Comment on above: Performed By: #### 2 [id number] #### [facility] [address] [place] [address] RBC #/vol (Bld) 3.83 10*6/uL Low 3.85-5.10 [facility] Comment on above: Performed By: #### 2 [id number] #### [facility] [address] [place] [address] RDW SD 44.2 fL Normal 39.3-48.6 [facility] Comment on above: Performed By: #### 2 [id number] #### [facility] [address] [place] [address] WBC #/vol (Bld) 8.8 10*3/uL Normal 4.4-9.9 [facility] Comment on above: Performed By: #### 2 [id number] #### [facility] [address] [place] [address] Culture, Urine Bacterialon 1 11-18-2017 Culture, Urine Bacterial BILL#: [id number] : 89 AGE: SEX: F AMBULATORY SOURCE: URINE COLLECTED: 09/18/18 19:09 ANTIBIOTICS AT MISSY.: RECEIVED : 09/18/18 22:53 SITE: Unspecified R E S U L T S URINE CULTURE,BACTERIAL FINAL 09/19/18 16:24 NO SIGNIFICANT GROWTH. Normal [facility] Comment on above: Performed By: #### U ARFX #### [facility] [address] [place] [address] Cystic Fibrosis, 165 Variant on 09-18-2018 CF 165 Variant Interp. 0 variants Normal [facility] Comment on above: Result Comment: None [...] 1 in 61 1 in 275 Ashkenazi Bahai 96% 1 in 24 1 in 575 [place]er 55% 1 in 94 1 in 210 92% 1 in 25 1 in 300 [place] Islander 80% 1 in 58 1 in [...] or bronchiectasis. INCIDENCE: 1 in 2,300 Ashkenazi Bahai, 1 in 2,500 Caucasians, 1 in 13,500 [...] for the 23 recommended ACMG variants. c.1A>G, p.Ojh2Tzx; c.54-1815_666+17699lmx, Exons 2-3del; c.115C>T, p.Gln39X; c.178G>T, p.Glu60X; c.200C>T, p.Qsg57Mlm; c.223C>T, p.Arg75X; c.254G>A (Legacy G85E), p.Hwu66Qye; c.262_263delTT, p.Wte07DjkcyH97 (aka p.Rxy24nu); c.273+1G>A, Intronic; c.273+3A>C, Intronic; c.274-1G>A, Intronic; c.274G>A, p.Utb34Qdj; c.274G>T, p.Glu92X; c.292C>T, p.Gln98X; c.313delA, p.Vtn788OmxtoU3 (aka p.Blr003wl); c.325_327delTATinsG, p.Hwo412IbcjoZ2 (aka p.Kju602vg); c.328G>C, p.Ncg548Hpy; c.349C>T, p.Gcd534Chr; c.350G>A (Legacy R117H), p.Gon544Izg; c.366T>A, p.Trg329V; c.442delA, p.Xmo861FfmlqC6 (aka p.Tqb933jg); c.489+1G>T (Legacy 621+1G>T), Intronic; c.531delT, p.Pxo870QvykpS56 (aka p.Efp275lo); c.532G>A, p.Wgq190Xhq; c.579+1G>T (Legacy 711+1G>T), Intronic; c.579+5G>A, Intronic; c.579+3A>G, Intronic; c.580-1G>T, Intronic; c.595C>T, p.Lfp278Vif; c.613C>T, p.Pmo962Vdp; c.617T>G, p.Mqx908Gye; c.658C>T, p.Hak682P; c.680T>G, p.Ukp818Epg; c.720_741delAGGGAGAATGATGATGAAGTAC, p.Koy944BvbhvY02 (aka p.Uxz155kp); c.803delA, p.Ylg884IuvsyU57 (aka p.Mqz552mj); c.805_806delAT, p.Vju548FdetjP7 (aka p.Jwc207ee); c.933_935delCTT, p.Tlu443mku; c.948delT, p.Nsb251EhgtpE04 (aka p.Ykq286pi); c.988G>T, p.Rtd449J; c.1000C>T (Legacy R334W), p.Yeo308Dad; c.1007T>A, p.Rcs382Vix; c.1021T>C, p.Ijj322Fgg; c.1022_1023insTC, p.Uil595XbptdM59 (aka p.Lzs303ry); c.1040G>A, p.Bdd934Uht; c.1040G>C (Legacy R347P), p.Zmn934Qqj; c.1055G>A, p.Xpn354Nqj; c.1081delT, p.Hco583VvouvY3 (aka p.Xtd018ck); c.1116+1G>A, Intronic; c.1127_1128insA, p.Hdr251NjggaF6 (aka p.Zmz386co); c.1153_1154insAT, p.Rvb373LavysW6 (aka p.Xiq350dh); c.1202G>A, p.Jyp164H; c.1203G>A, p.Eqg677I; c.1209+1G>A, Intronic; c.1329_1330insAGAT, p.Zri481GssopW6 (aka p.Ywk787rr); c.1340delA, p.Obk121ObsdxL5 (aka p.Qgl351pg); c.1364C>A (Legacy A455E), p.Dkx182Kvq; c.1393-1G>A, Intronic; c.1397C>A, p.Kjf425G; c.1397C>G, p.Mcx877L; c.1400T>C, p.Mau477Wug; c.1418delG, p.Kwg442WdlfvD48 (aka p.Pve477uv); c.1438G>T, p.Muo133Cbj; c.1466C>A, p.Shy540S; c.1475C>T, p.Ogu302Wut; c.1477C>T, p.Lvf848M; c.1519_1521delATC (Legacy I068wln), p.Vnr535zrf; c.1521_1523delCTT (Legacy U109pnq), p.New513abz; c.1545_1546delTA, p.Pre335X; c.1558G>T, p.Cvb533Kio; c.1572C>A, p.Piy973E; c.1573C>T, p.Ndm401E; c.1585-1G>A (Legacy 1717-1G>A), Intronic; c.1585-8G>A, Intronic; c.1624G>T (Legacy G542X), p.Dqo773Q; c.1645A>C, p.Isr437Vmm; c.1646G>A, p.Mdq421Llk; c.1647T>G, p.Lui664Dsn; c.1651G>A, p.Mom675Dtv; c.1652G>A (Legacy G551D), p.Gmj388Jwb; c.1654C>T, p.Xmh926P; c.1657C>T (Legacy R553X), p.Stq116B; c.1675G>A, p.Ayx276Ggv; c.1679G>A, p.Zjv113Vhn; c.1679G>C (Legacy R560T), p.Bsm311Kfn; c.1679+1.6kbA>G, Intronic; c.1680-1G>A, Intronic; c.1703delT, p.Bph298RvhqlE5 (aka p.Vcg867sy); c.1705T>G, p.Hal829Hiy; c.1721C>A, p.Grr841Zrs; c.1753G>T, p.Htx716J; c.1766+1G>A (Legacy 1898+1G>A), Intronic; c.1766+3A>G, Intronic; c.1792_1798delAAAACTA, p.Qlk109LbqovG00 (aka p.Vrn710yu); c.1911delG, p.Hxq269QkfosH89 (aka p.Jav169mp); c.1923_1931del9insA, p.Zqq155LkjmlT5 (aka p.Slr070ze); c.del13insAGAAA, p.Dts467QjszsD7 (aka p.Onb193dl); c.1975delA, p.Gvj130GidsyM9 (aka p.Ukd939cl); c.2011delT, p.Rtp259T; c.2050_2del, p.Lyt609NomwuO5; c.2050_elinsG (aka c.205_elinsG), p.Wkh168JmcflB06; c.2delA (Legacy 2184delA), p.Pci533XrydyM90; c.2125C>T, p.Yow625L; c.2128A>T, p.Cym176L; c.2175_2176insA, p.Umi851QxxamT0 (aka p.Sma993so); c.2195T>G, p.Imd984M; c.2215delG, p.Kqr610OqldaA15 (aka p.Zle866wq); c.2290C>T, p.Txz600Zgh; c.2453delT, p.Gsa294BwhmcB9 (aka p.Fya993vl); c.2464G>T, p.Aos714E; c.2490+1G>A, Intronic; c.2491G>T, p.Xmu245K; c.2537G>A, p.Xsu135R; c.2538G>A, p.Ysz263S; c.2551C>T, p.Qmc162W; c.2583delT, p.Pxv396MzclzB8 (aka p.Fci244qz); c.2657+5G>A (Legacy 2789+5G>A), Intronic; c.2668C>T, p.Ckx648A; c.2737_2738insG, p.Ltn005M; c.2780T>C, p.Zxu501Ivy; c.2810_2811insT, p.Wcn280HppzfA35 (aka p.Lko592oo); c.2834C>T, p.Vzg830Ktv; c.2875delG, p.Mnn703FzrdvR7 (aka p.Uzi576pb); c.2908G>C, p.Jkf924Xxd; c.2988+1G>A (Legacy 3120+1G>A), Intronic; c.2988G>A, Intronic; c.2989-1G>A, Intronic; c.3039delC, p.Lnh8683RtaljD8 (aka p.Llz8358bh); c.3067_3072delATAGTG, p.Dwc1975_Daa2667jsl (aka M3883_X5074nrn); c.3140-26A>G, Intronic; c.3194T>C, p.Rnw8053Pws; c.3196C>T, p.Awr2310Vzh; c.3197G>A, p.Qbt4810Pda; c.3230T>C, p.Mxy3797Ydp; c.3266G>A, p.Tqd3867B; c.3276C>A, p.Lzz1451V; c.3276C>G, p.Can8332G; c.3302T>A, p.Ktu0209Ukx; c.3310G>T, p.Cte3895G; c.3472C>T, p.Uej0568D; c.3484C>T ([employer] N2640X), p.Bki6827E; c.3528delC ([employer] 3659delC), p.Aht6692JygxqK11 (aka p.Khe5919tz); c.3536_3539del, p.Yuk0949LfpccB99 (aka p.Xpe3073sh); c.3587C>G, p.Cbc9743U; c.3611G>A, p.Oju2938U; c.3612G>A, p.Atr7750L; c.3659delC, p.Xac6098SgmxnQ0 (aka p.Vyw4046tr); c.3691delT, p.Ugh6170DykooK3 (aka p.Qop6018mm); c.3712C>T, p.Mrs3764T; c.0338-0684C>T ([employer] 3849+10kbC>T), Intronic; c.3731G>A, p.Yjq8731Jcu; c.3744delA, p.Zti8660DrvxlH9 (aka p.Uzd6702js); c.3752G>A, p.Sfp0562Ogv; c.3763T>C, p.Pnk7149Vjr; c.3764C>A, p.Jcy4706T; c.3773_3774insT, p.Xfy1936UyppvQ2 (aka p.Ylf7728jn); c.3846G>A ([employer] N1156O), p.Nav0060G; c.3873+1G>A, Intronic; c.3909C>G ([employer] B6268S), p.Eml4415Xph; c.3937C>T, p.Hkh3573G; c.3964-78_4242+577del, Exons 22-23del; c.4028delG, p.Wdi1421PmzcdJ6 (aka p.Kvl4112mc); c.4046G>A, p.Tnh8335Wxw; c.4077_4080delTGTTinsAA, p.Jdf7063ogQ6 (aka p.Vbq5445ot); c.4111G>T, p.Itc1768O; c.4251delA, p.Anz2277CwrshI97 (aka p.Bqz1279hk). The IVS-8 variant, c.1210-12[5], will be reported only when R117H is detected or in patients who are reported to be symptomatic. CLINICAL SENSITIVITY: Ashkenazi Bahai 96 percent; 92 percent; 80 percent; 78 percent; [place] Islander 55 percent. METHODOLOGY: Polymerase chain reaction (PCR) and fluorescence monitoring. Analytical Sensitivity & Specificity: 99 percent. LIMITATIONS: Diagnostic errors can occur due to rare sequence variations. Only the 165 pathogenic CFTR variants and 5T variant (listed above) will be interrogated. See Compliance Statement C: [email or web address] Performed by [facility], [address] [place] [id number] [email or web address], Robert Fraire MD - Lab. Director Performed By: #### U ARFX #### [facility] [address] [place] [address] CF 5T Variant Not Applicable Normal [facility] Comment on above: Performed By: #### U ARFX #### [facility] [address] [place] [address] CF Allele 1 Negative Normal [facility] Comment on above: Performed By: #### U ARFX #### [facility] [address] [place] [address] CF Allele 2 Negative Normal [facility] Comment on above: Performed By: #### U ARFX #### [facility] [address] [place] [address] CF Specimen Type Whole Blood Normal [facility] Comment on above: Performed By: #### U ARFX #### [facility] [address] [place] [address] CF Symptom No Normal [facility] Comment on above: Performed By: #### U ARFX #### [facility] [address] [place] [address] Ethnicity Normal [facility] Comment on above: Performed By: #### U ARFX #### [facility] [address] [place] [address] Family History No Normal [facility] Comment on above: Performed By: #### U ARFX #### [facility] [address] [place] [address] Drugs of Abuse, Urine(7)on 11-18-2017 Amphetamines/Metam phetamines, Urine Not Detected Normal [facility] Comment on above: Performed By: #### U ARFX #### [facility] [address] [place] [address] Barbiturates, Urine Not Detected Normal [facility] Comment on above: Performed By: #### U ARFX #### [facility] [address] [place] [address] Benzodiazepines, Urine Not Detected Normal [facility] Comment on above: Performed By: #### U ARFX #### [facility] [address] [place] [address] Cannabinoids, Urine Not Detected Normal [facility] Comment on above: Performed By: #### U ARFX #### [facility] [address] [place] [address] Cocaine, Urine Not Detected Normal [facility] Comment on above: Performed By: #### U ARFX #### [facility] [address] [place] [address] Methadone, Urine Not Detected Normal [facility] Comment on above: Performed By: #### U ARFX #### [facility] [address] [place] [address] Opiates, Urine Not Detected Normal [facility] Comment on above: Performed By: #### U ARFX #### [facility] [address] [place] [address] PCP, Urine Not Detected Normal [facility] Comment on above: Result Comment: Urin e toxicology screen results are to be used for medical purposes only. It is recommended that any result reported as Detected be confirmed by a more specific alternative chemical method. Drug Analyzed Cutoff Concentration(ng/mL) Barbiturates 200 Benzodiazepines 200 Cocaine 150 Opiates 300 Amphetamines 500 Cannabinoids 50 Methadone 150 PCP 25 Performed By: #### U ARFX #### [facility] [address] [place] [address] HIV 1 Ab, Conf WBloton 09-18 HIV 1 Ab, Conf WBlot Negative Normal Negative [facility] Comment on above: Result Comment: HIV- [...] Cellular and Tissue-Based Products (HCT/P). Performed by [facility], [address] [place] [id number] www.[email or web address], Robert Fraire MD - Lab. Director Performed By: #### U ARFX #### [facility] [address] [place] [address] Hemoglobin Identificationon 09-18-2018 Hemoglobin A2 2.8 % Normal [facility] Comment on above: Result Comment: HGB A2 values may be falsely elevated in the presence of HGB S Hemoglobin F 0.6 % Normal [facility] Hemoglobin mass conc (Bld) 96.6 % Normal [facility] Hemoglobin mass conc (Bld) SEE COMMENT Normal [facility] Comment on above: Result Comment: Norm al Hepatitis B Surface Antigeno n 09-18-2018 Hepatitis B Surface Antigen NONREACTIVE Normal NONREACTIVE [facility] Comment on above: Result Comment: Carrie ents receiving more than 5 mg/day of biotin may have interf in test results. A sample should be taken no sooner than eight after previous dose. Contact [phone] for additional infor Hepatitis C Antibody w/rfx t o Confirmon 09-18-2018 Hepatitis C Antibody NON-REACTIVE Normal NONREACTIVE [facility] Comment on above: Result Comment: Carrie ents receiving more than 5 mg/day of biotin may have interf in test results. A sample should be taken no sooner than eight after previous dose. Contact [phone] for additional infor Rubella Ab, IgGon 09-18-2018 Rubella Ab, IgG 16 IU/ML Normal [facility] Comment on above: Result Comment: REF VALUES NON-IMMUNE: < 5 EQUIVOCAL: 5-9 IMMUNE: >=10 Syphilis IgG w/Rflx toTiter, TP-PAon 09-18-2018 Syphilis IgG w/Rflx toTiter,TP-PA NON REACTIVE Normal NONREACTIVE [facility] Comment on above: Result Comment: Carrie ents receiving more than 5 mg/day of biotin may have interf in test results. A sample should be taken no sooner than eight after previous dose. Contact [phone] for additional infor TSHon 09-18-2018 Thyrotropin Qn 0.54 mU/L Normal 0.44-3.98 [facility] Comment on above: Performed By: #### U ARFX #### [facility] [address] [place] [address] Type and Screenon 09-18-2018 Group and Rh Positive Normal [facility] Comment on above: Performed By: #### T S3 #### [facility] [address] [place] [address] VZV Ab, IgGon 09-18-2018 VZV Ab, IgG [...] Vitamin D, 25 Hydroxy 26 ng/mL Abnormal [facility] Comment on above: Result Comment: DEFI CIENCY <20 INSUFFICIENCY 20-29 OPTIMUM LEVEL 30-80 POSSIBLE TOXICITY >80 Performed By: #### U ARFX #### [facility] [address] [place] [address] Culture, Urine Bacterialon 1 11-09-2017 Culture, Urine Bacterial BILL#: [id number] : 89 AGE: SEX: Primitivo COLÓN SOURCE: URINE COLLECTED: 09/09/18 13:19 ANTIBIOTICS AT IMSSY.: RECEIVED : 09/09/18 22:34 SITE: Unspecified R E S U L T S URINE CULTURE,BACTERIAL FINAL 09/10/18 15:13 NO SIGNIFICANT GROWTH. Normal [facility] Comment on above: Performed By: #### C XBUR #### [facility] [address] [place] [address] N. gonorrhoeae/C. trachomati s, Amplifiedon 09-09-2018 Chlamydia trachomatis, Amplified Negative Normal Negative [facility] Comment on above: Performed By: #### G CCHA #### [facility] [address] [place] [address] GC/CHLAM/TRICA Source Swab-Endocerv Normal [facility] Comment on above: Performed By: #### G CCHA #### [facility] [address] [place] [address] Neisseria gonorrhoeae, Amplified Negative Normal Negative [facility] Comment on above: Performed By: #### G CCHA #### [facility] [address] [place] [address] Urinalysis with Reflex Cultu reon 09-09-2018 Appearance Nom (U) Hazy Normal Clear [facility] Comment on above: Performed By: #### U ARFX #### [facility] [address] [place] [address] Ascorbic Acid Negative Normal Negative [facility] Comment on above: Performed By: #### U ARFX #### [facility] [address] [place] [address] Automated Urine Microscopy Performed Normal [facility] Comment on above: Performed By: #### U ARFX #### [facility] [address] [place] [address] Bacteria LM.HPF #/area (Urine sed) Few Normal None [facility] Comment on above: Performed By: #### U ARFX #### [facility] [address] [place] [address] Bilirubin mass conc Negative Normal Negative [facility] Comment on above: Performed By: #### U ARFX #### [facility] [address] [place] [address] Blood Negative Normal Negative [facility] Comment on above: Performed By: #### U ARFX #### [facility] [address] [place] [address] Color Nom (U) Yellow Normal [facility] Comment on above: Performed By: #### U ARFX #### [facility] [address] [place] [address] Glucose mass conc Negative Normal Negative [facility] Comment on above: Performed By: #### U ARFX #### [facility] [address] [place] [address] Ketones Ql (U) Negative Normal Negative [facility] Comment on above: Performed By: #### U ARFX #### [facility] [address] [place] [address] Leukocytes Esterase Large Abnormal Negative [facility] Comment on above: Performed By: #### U ARFX #### [facility] [address] [place] [address] Mucous Rare Normal None [facility] Comment on above: Performed By: #### U ARFX #### [facility] [address] [place] [address] Nitrite Ql (U) Negative Normal Negative [facility] Comment on above: Performed By: #### U ARFX #### [facility] [address] [place] [address] pH (Bld) 6.0 Normal 5.0-9.0 [facility] Comment on above: Performed By: #### U ARFX #### [facility] [address] [place] [address] Protein mass conc (U) Negative Normal Negative [facility] Comment on above: Performed By: #### U ARFX #### [facility] [address] [place] [address] RBC 5 /[HPF] Normal 0-3 [facility] Comment on above: Performed By: #### U ARFX #### [facility] [address] [place] [address] Specific gravity Relative Density (U) 1.019 Normal 1.003-1.035 [facility] Comment on above: Performed By: #### U ARFX #### [facility] [address] [place] [address] Squamous Epithelial Cells 12 /[HPF] Normal 0-5 [facility] Comment on above: Performed By: #### U ARFX #### [facility] [address] [place] [address] Urobilinogen Qn (U) 2.0 mg/dL Abnormal Negative [facility] Comment on above: Performed By: #### U ARFX #### [facility] [address] [place] [address] WBC 6 /[HPF] Normal 0-5 [facility] Comment on above: Performed By: #### U ARFX #### [facility] [address] [place] [address] Vaginal Pathogen DNAon 11-06 -2018 Estrada Vag DNA Probe Positive Abnormal Negative [facility] Comment on above: Performed By: #### V AGPA #### [facility] [address] [place] [address] Protein mass conc Positive Abnormal Negative [facility] Comment on above: Performed By: #### V AGPA #### [facility] [address] [place] [address] Trich Vag DNA Probe Positive Abnormal Negative [facility] Comment on above: Performed By: #### V AGPA #### [facility] [address] [place] [address] Culture, Urine Bacterialon 0 07-30-2018 Culture, Urine Bacterial BILL#: [id number] : 89 AGE: SEX: F CAROL SOURCE: URINE COLLECTED: 07/30/18 17:03 ANTIBIOTICS AT MISSY.: RECEIVED : 07/30/18 22:34 SITE: Unspecified R E S U L T S URINE CULTURE,BACTERIAL FINAL 07/31/18 15:35 NO SIGNIFICANT GROWTH. Normal [facility] Comment on above: Performed By: #### C XBUR #### [facility] [address] [place] [address] N. gonorrhoeae/C. trachomati s, Amplifiedon 07-30-2018 Chlamydia trachomatis, Amplified Negative Normal Negative [facility] Comment on above: Performed By: #### [facility] #### [facility] [address] [place] [address] GC/CHLAM/TRICA Source Urine Normal [facility] Comment on above: Performed By: #### G CCHA #### [facility] [address] [place] [address] Neisseria gonorrhoeae, Amplified Negative Normal Negative [facility] Comment on above: Performed By: #### G CCHA #### [facility] [address] [place] [address] Urinalysis with Reflex Cultu reon 07-30-2018 Appearance Nom (U) Clear Normal Clear [facility] Comment on above: Performed By: #### U ARFX #### [facility] [address] [place] [address] Ascorbic Acid Negative Normal Negative [facility] Comment on above: Performed By: #### U ARFX #### [facility] [address] [place] [address] Automated Urine Microscopy Performed Normal [facility] Comment on above: Performed By: #### U ARFX #### [facility] [address] [place] [address] Bacteria LM.HPF #/area (Urine sed) Rare Normal None [facility] Comment on above: Performed By: #### U ARFX #### [facility] [address] [place] [address] Bilirubin mass conc Negative Normal Negative [facility] Comment on above: Performed By: #### U ARFX #### [facility] [address] [place] [address] Blood Negative Normal Negative [facility] Comment on above: Performed By: #### U ARFX #### [facility] [address] [place] [address] Color Nom (U) Yellow Normal [facility] Comment on above: Performed By: #### U ARFX #### [facility] [address] [place] [address] Glucose mass conc Negative Normal Negative [facility] Comment on above: Performed By: #### U ARFX #### [facility] [address] [place] [address] Ketones Ql (U) Negative Normal Negative [facility] Comment on above: Performed By: #### U ARFX #### [facility] [address] [place] [address] Leukocytes Esterase Moderate Abnormal Negative [facility] Comment on above: Performed By: #### U ARFX #### [facility] [address] [place] [address] Mucous Rare Normal None [facility] Comment on above: Performed By: #### U ARFX #### [facility] [address] [place] [address] Nitrite Ql (U) Negative Normal Negative [facility] Comment on above: Performed By: #### U ARFX #### [facility] [address] [place] [address] pH (Bld) 6.0 Normal 5.0-9.0 [facility] Comment on above: Performed By: #### U ARFX #### [facility] [address] [place] [address] Protein mass conc (U) Negative Normal Negative [facility] Comment on above: Performed By: #### U ARFX #### [facility] [address] [place] [address] RBC 3 /[HPF] Normal 0-3 [facility] Comment on above: Performed By: #### U ARFX #### [facility] [address] [place] [address] Specific gravity Relative Density (U) 1.016 Normal 1.003-1.035 [facility] Comment on above: Performed By: #### U ARFX #### [facility] [address] [place] [address] Squamous Epithelial Cells 3 /[HPF] Normal 0-5 [facility] Comment on above: Performed By: #### U ARFX #### [facility] [address] [place] [address] Urobilinogen Qn (U) >=4.0 Abnormal Negative [facility] Comment on above: Performed By: #### U ARFX #### [facility] [address] [place] [address] WBC 16 /[HPF] Normal 0-5 [facility] Comment on above: Performed By: #### U ARFX #### [facility] [address] [place] [address] FOOT RT 3 OR MORE VWon 05-20 FOOT RT 3 OR MORE VW DATE OF EXAM: May 19 2018 11:20PM CLINICAL HISTORY/ Patient Name: JULIETTE HERNÁNDEZ STUDY: FOOT RT 3 OR MORE VW; 05/19/2018 11:20 pm INDICATION: Trauma. Pain COMPARISON: None. ACCESSION NUMBER(S): [id number] ORDERING CLINICIAN: LUIS CASTRO FINDINGS: Osseous structures and soft tissues appear normal. No fracture or dislocation is noted CONCLUSION: IMPRESSION: Normal right foot Normal [facility] Vital Signs Date Time Vital Sign Value Performing Clinician Facility 02-21-2024 10:39-0400 Body height 167.6 cm Chacorta Erwin MD Work Phone: [facility] 02-21-2024 10:39-0400 Body mass index (BMI) [Ratio] 22.6 kg/m2 Chacorta Erwin MD Work Phone: [facility] 02-21-2024 10:39-0400 Body temperature 97.3 [degF] Chacorta Erwin MD Work Phone: [facility] 02-21-2024 10:39-0400 Body weight 63.5 kg Chacorta Erwin MD Work Phone: [facility] 02-21-2024 10:39-0400 Diastolic blood pressure 54 mm[Hg] Chacorta Erwin MD Work Phone: [facility] 02-21-2024 10:39-0400 Heart rate 64 /min Chacorta Erwin MD Work Phone: [facility] 02-21-2024 10:39-0400 Respiratory rate 16 /min Chacorta Erwin MD Work Phone: [facility] 02-21-2024 10:39-0400 SaO2% (BldA) [Mass fraction] 100 % Chacorta Erwin MD Work Phone: [facility] 02-21-2024 10:39-0400 Systolic blood pressure 104 mm[Hg] Chacorta Erwin MD Work Phone: [facility] 06-19-2023 23:30-0400 Diastolic blood pressure 63 mm[Hg] [facility] [employer] 06-19-2023 23:30-0400 Heart rate 83 /min [facility] [employer] 06-19-2023 23:30-0400 Respiratory rate 15 /min [facility] [employer] 06-19-2023 23:30-0400 SaO2% (BldA) [Mass fraction] 96 % [facility] 06-19-2023 23:30-0400 Systolic blood pressure 102 mm[Hg] [facility] 06-19-2023 21:44-0400 Body height 167.6 cm [facility] 06-19-2023 21:44-0400 Body mass index (BMI) [Ratio] 22.6 kg/m2 [facility] 06-19-2023 21:44-0400 Body temperature 98.01 [degF] [facility] 06-19-2023 21:44-0400 Body weight 63.5 kg [facility] 01-09-2023 16:18-0500 Body height 167.64 cm No PCP None [facility] Work Phone: 01-09-2023 16:18-0500 Body mass index (BMI) [Ratio] 24.59 kg/m2 No PCP [facility] Work Phone: 01-09-2023 16:18-0500 Body surface area Derived from formula 1.78 m2 No PCP None [facility] Work Phone: 01-09-2023 16:18-0500 Body weight 69.12 kg No PCP [facility] Work Phone: 01-09-2023 16:18-0500 Diastolic blood pressure 60 mm[Hg] No PCP None [facility] Work Phone: 01-09-2023 16:18-0500 Systolic blood pressure 116 mm[Hg] No PCP [facility] Work Phone: 11-21-2022 05:37-0500 Diastolic blood pressure 53 mm[Hg] No Pcp Required [facility] 11-21-2022 05:37-0500 Heart rate 85 /min No Pcp Required [facility] 11-21-2022 05:37-0500 Respiratory rate 18 /min No Pcp Required [facility] 11-21-2022 05:37-0500 SaO2% (BldA) [Mass fraction] 100 % No Pcp Required [facility] 11-21-2022 05:37-0500 Systolic blood pressure 100 mm[Hg] No Pcp Required [facility] 11-21-2022 03:56-0500 Body height 167.6 cm No Pcp Required [facility] 11-21-2022 03:56-0500 Body temperature 97.7 [degF] No Pcp Required [facility] 11-21-2022 03:56-0500 Body weight 68.1 kg No Pcp Required [facility] 09-08-2022 22:01-0400 Diastolic blood pressure 61 mm[Hg] No Pcp Required [facility] 09-08-2022 22:01-0400 Heart rate 69 /min No Pcp Required [facility] 09-08-2022 22:01-0400 Respiratory rate 16 /min No Pcp Required [facility] 09-08-2022 22:01-0400 SaO2% (BldA) [Mass fraction] 100 % No Pcp Required [facility] 09-08-2022 22:01-0400 Systolic blood pressure 121 mm[Hg] No Pcp Required [facility] 09-08-2022 17:31-0400 Body height 167.6 cm No Pcp Required [facility] 09-08-2022 17:31-0400 Body temperature 98.24 [degF] No Pcp Required [facility] 09-08-2022 17:31-0400 Body weight 66 kg No Pcp Required [facility] 06-26-2021 16:54-0400 Diastolic blood pressure 65 mm[Hg] No Pcp Required [facility] 06-26-2021 16:54-0400 Heart rate 70 /min No Pcp Required [facility] 06-26-2021 16:54-0400 Respiratory rate 16 /min No Pcp Required [facility] 06-26-2021 16:54-0400 SaO2% (BldA) [Mass fraction] 97 % No Pcp Required [facility] 06-26-2021 16:54-0400 Systolic blood pressure 112 mm[Hg] No Pcp Required [facility] 06-26-2021 11:14-0400 Body height 167.6 cm No Pcp Required [facility] 06-26-2021 11:14-0400 Body temperature 98.06 [degF] [facility] [place] 06-26-2021 11:14-0400 Body weight 71.9 kg No Pcp Required [place] [facility] 10-03-2020 11:52-0500 BMI (Body Mass Index) 24.14 kg/m2 Cally Sherlock -[facility] Work Phone: 10-03-2020 11:52-0500 Body Temperature 97 [degF] Cally Sherlock -[facility] Work Phone: 10-03-2020 11:52-0500 Body weight 67.84 kg Cally Sherlock -[facility] Work Phone: 10-03-2020 11:52-0500 BP Diastolic 76 mm[Hg] Cally Sherlock -[facility] Work Phone: Comment on above: Location: LUE; Position: Sitting 10-03-2020 11:52-0500 BP Systolic 104 mm[Hg] Cally Sherlock -[facility] Work Phone: Comment on above: Location: LUE; Position: Sitting 10-03-2020 11:52-0500 BSA (Body Surface Area) 1.77 m2 Cally Sherlock -[facility] Work Phone: 10-03-2020 11:52-0500 Height 167.64 cm Cally Sherlock -[facility] Work Phone: 06-02-2020 14:04-0400 BMI (Body Mass Index) 22.76 kg/m2 Chica Wisdom [id number] [facility] Work Phone: 06-02-2020 14:04-0400 Body Temperature 98.1 [degF] Chica Wisdom [id number]-Sxne [address] [facility] Work Phone: 06-02-2020 14:04-0400 Body weight 63.96 kg Chica Wisdom [id number]-[id number] [address] [facility] Work Phone: 06-02-2020 14:04-0400 BP Diastolic 72 mm[Hg] Chica Wisdom HA-MGMM-Modr [address] [facility] Work Phone: 06-02-2020 14:04-0400 BP Systolic 104 mm[Hg] Chica Wisdom RM-BLDS-Aocs [address] [facility] Work Phone: 06-02-2020 14:04-0400 BSA (Body Surface Area) 1.72 m2 Chica Wisdom DC-WIFL-Gybs [facility] Work Phone: 06-02-2020 14:04-0400 Pulse (Heart Rate) 60 /min Chica Wisdom XY-RSQJ-Xdvk [facility] Work Phone: 06-02-2020 14:04-0400 Pulse Oximetry 99 % Chica Wisdom NO-KKLJ-Jeod [address] [facility] Work Phone: 06-02-2020 14:04-0400 Respiratory Rate 16 /min Chica Wisdom MB-MAEU-Vhub [address] [facility] Work Phone: Encounters Encounter Date Encounter Type Care Provider Facility Start: 01-07-2025 Evaluation and management of inpatient NARINDER [facility] Start: [facility]07[facility]2025 [facility]: [facility] Evaluation and management of inpatient WOO RAMIREZRADHA [facility] Start: 01-05-2025 Evaluation and management of inpatient GIL ZHANG [facility] Start: 01-05-2025 Evaluation and management of inpatient NARINDER SAFI [facility] Start: 01-05-2025 [facility] Start: 01-04-2025 Evaluation and management of inpatient GIL T [facility] Start: 01-04-2025 Evaluation and management of inpatient WOO [facility] Start: 01-04-2025 [facility] Start: 01-03-2025 Evaluation and management of inpatient WOO [facility] Start: 01-02-2025 Evaluation and management of inpatient GIL De León [facility] Start: 01-02-2025 Evaluation and management of inpatient WOO [facility] Start: 01-02-2025 Evaluation and management of inpatient WOO Davidson [facility] Start: 01-02-2025 Evaluation and management of inpatient FELISHA BRADEN [facility] Start: 01-01-2025 Evaluation and management of inpatient GIL De León [facility] Start: 01-01-2025 Evaluation and management of inpatient DENIA ZAMORA [facility] Start: 01-01-2025 End: 01-07-2025 Evaluation and management of inpatient JENNIFER TRACIE [facility] Start: 12-08-2024 End: 12-08-2024 ambulatory [facility] Start: 12-08-2024 End: 12-08-2024 Subsequent hospital visit by physician Sunny Lilly MD [facility] Start: 12-04-2024 End: 12-04-2024 ambulatory [facility]IF [facility] Start: 12-04-2024 End: 12-04-2024 Subsequent hospital visit by physician Sunny Lilly MD Work Phone: [facility] Start: 10-14-2024 End: 10-14-2024 ambulatory [facility] Start: 09-28-2024 End: 09-28-2024 ambulatory [facility] Start: 09-28-2024 End: 09-28-2024 Subsequent hospital visit by physician Sunny Lilly MD Work Phone: [facility] Start: 05-26-2024 End: 05-26-2024 ambulatory [facility] Start: 05-26-2024 End: 05-26-2024 Subsequent hospital visit by physician Sunny Lilly MD Work Phone: [facility] Start: 05-08-2024 End: 05-08-2024 ambulatory [facility] Start: 05-04-2024 End: 05-04-2024 ambulatory [facility] Start: 04-24-2024 End: 04-24-2024 Emergency department patient visit [facility] Start: 02-21-2024 End: 02-21-2024 Emergency department patient visit NO ASSIGNED PCP GENERIC PROVIDER [facility] Start: 02-21-2024 End: 02-21-2024 Emergency department patient visit Chacorta Erwin MD Work Phone: [facility] Comment on above: Trichomonas exposure (Primary Dx); Rash Start: 06-19-2023 End: 06-20-2023 Emergency department patient visit [facility] Start: 06-19-2023 End: 06-20-2023 Emergency department patient visit [facility] ED Comment on above: Multiple drug overdo se, accidental or unintentional, initial encounter (Primary Dx) Start: 05-29-2023 End: 05-29-2023 Emergency department patient visit [facility] Start: 01-09-2023 Office outpatient vi sit 15 minutes No PCP None [facility] Work Phone: Start: 01-09-2023 Patient encounter procedure No PCP None [facility] Work Phone: Start: 01-09-2023 ambulatory MD CALLY REDD KEVEN Facility:[id number] Start: 12-19-[address] Chacorta Erwin Facility:[id number] Start: 11-22-2022 Patient encounter procedure No PCP [facility] Work Phone: Start: 11-22-[address] Chacorta Erwin Facility:[id number] Start: 11-21-2022 End: 11-21-2022 Emergency department patient visit Lilian Wilkins [facility] 05 Start: 11-20-2022 End: 11-20-2022 Emergency department patient visit Elinor Sagastume [facility] 04 Start: 10-08-2022 End: 10-08-2022 Emergency department patient visit [facility] Start: 09-08-2022 End: 09-08-2022 Emergency department patient visit Kirk Roldan [facility] 01 Start: 06-26-2021 End: 06-26-2021 Emergency department patient visit Reta Sanchez [facility] 25 Start: 10-03-2020 Patient encounter procedure Cally Meyer -[facility] Work Phone: Start: 09-05-2020 Patient encounter procedure Cally Meyer -[facility] Work Phone: Start: 06-10-2020 Patient encounter procedure Cally Meyer -[facility] Work Phone: Start: 06-02-2020 Patient encounter procedure Chica Wisdom HT-ANDD-Awtx [facility] Work Phone: Start: 10-26-2019 Patient encounter procedure Chica Wisdom ZZ-SDRQ-Iitn [facility] Work Phone: Start: 08-25-2019 Patient encounter procedure Chica Wisdom BA-IBST-Zdhp [facility] Work Phone: Start: 07-16-2019 Patient encounter procedure Chica Wisdom IX-NJLB-Dolf [facility] Work Phone: Start: 06-11-2019 Patient encounter procedure Chica Wisdom LL-UUEZ-Olsr [facility] Work Phone: Start: 04-22-2019 Patient encounter procedure Chica Wisdom QZ-TPTO-Bopp [facility] Work Phone: Start: 01-19-2019 End: 01-21-2019 Evaluation and management of inpatient KEYSHA BAH Facility:[facility] Start: 01-15-2019 Patient encounter procedure Chica Wisdom CX-TKTH-Frvw [facility] Work Phone: Start: 01-08-2019 Patient encounter procedure Chica Wisdom DX-DKGD-Hrri [facility] Work Phone: Start: 01-01-2019 Patient encounter procedure Chica Wisdom DV-ICOW-Ymtx [facility] Work Phone: Start: 12-25-2018 Patient encounter procedure KEYSHA BAH Facility:[facility] Start: 12-25-2018 Patient encounter procedure Chica Wisdom QZ-QMJK-Laza [facility] Work Phone: Start: 12-18-2018 Patient encounter procedure Chica Wisdom KJ-QUYW-Rycs [facility] Work Phone: Start: 12-11-2018 End: 12-11-2018 Patient encounter procedure KEYSHA BAH Facility:[facility] Start: 12-04-2018 Patient encounter procedure Chica Wisdom LF-GMFZ-Sdvl [facility] Work Phone: Start: 12-01-2018 End: 12-01-2018 Patient encounter procedure KEYSHA BAH Facility:[facility] Start: 11-27-2018 Patient encounter procedure Chica Wisdom IW-KTPW-Iotr [facility] Work Phone: Start: 11-13-2018 Patient encounter procedure KEYSHA BAH Facility:[facility] Start: 11-13-2018 Patient encounter procedure KEYSHA BAH Facility:7 Start: 10-24-2018 Patient encounter procedure KEYSHA BAH Facility:[facility] Start: 10-16-2018 Patient encounter procedure KEYSHA BAH Facility:[facility] Start: 10-07-2018 Patient encounter procedure Chica Wisdom GW-HQNL-Srex [facility] Work Phone: Start: 09-18-2018 Patient encounter procedure KEYSHA BAH Facility:[facility] Start: 09-18-2018 Patient encounter procedure KEYSHA BAH Facility:7 Start: 09-18-2018 Patient encounter procedure Chica Wisdom UT-JOSE-Wejl [facility] Work Phone: Start: 09-09-2018 End: 09-09-2018 Emergency department patient visit NO FAMILY DOCTOR NO FAMILY DOCTOR Facility:[facility] Start: 07-30-2018 End: 07-30-2018 Emergency department patient visit NO FAMILY DOCTOR NO FAMILY DOCTOR Facility:[facility] Start: 05-20-2018 End: 05-20-2018 Emergency department patient visit BRAULIO LILLY Facility:[facility] Menarche No PCP None [facility] [place] Work Phone: Patient encounter status No PCP None [facility] [place] Work Phone: Procedures Date Procedure Procedure Detail Performing Clinician Start: 12-08-2024 Comprehensive metabo lic panel Sharif Ivory VASCULAR TECHNOLOGIST - RUG REPAIRER Work Phone: Start: 12-08-2024 Hepatitis b surf ant ibody hbsab Sharif Ivory VASCULAR TECHNOLOGIST - RUG REPAIRER Work Phone: Start: 12-08-2024 T. PALLIDUM AB Sharif R cliff VASCULAR TECHNOLOGIST - RUG REPAIRER Work Phone: Start: 12-04-2024 Smr prim src wet cecilia nt nfct agt Sharif Ivory VASCULAR TECHNOLOGIST - RUG REPAIRER Work Phone: Start: 09-28-2024 Smr prim src wet cecilia nt nfct agt Sharif Ivory VASCULAR TECHNOLOGIST - RUG REPAIRER Work Phone: Start: 05-26-2024 Smr prim src wet cecilia nt nfct agt Sharif Ivory VASCULAR TECHNOLOGIST - RUG REPAIRER Work Phone: Start: 02-21-2024 C. TRACHOMATIS + [...] above: Performed By: #### U ARFX #### [facility] [address] [place] [address] Start: 09-18-2018 Antibody screen BRAULIO LILLY Comment on above: Performed By: #### T S3 #### [facility] [address] [place] [address] Bilateral tubal ligation No PCP None Dilation and curettage Claudia Wisdom Plan of Treatment Date Care Activity Detail Author Start: 2054 RSV patient s and/or patients aged 60+ years (1 - 1-dose 60+ series) RSV patients and/or patients aged 60+ years (1 - 1-dose 60+ series) [facility] Start: 2044 Zoster Vaccines (1 o f 2) Zoster Vaccines (1 of 2) [facility] Start: 11-13-2028 DTaP/Tdap/Td vaccine (3 - Td or Tdap) DTaP/Tdap/Td vaccine (3 - Td or Tdap) [facility] Start: 11-13-2028 DTaP/Tdap/Td Vaccine s (3 - Td or Tdap) DTaP/Tdap/Td Vaccines (3 - Td or Tdap) [facility] Start: 07-05-2024 COVID-19 Vaccine ( season) COVID-19 Vaccine ( season) [facility] Start: 07-05-2024 Influenza vaccination Influenz a Vaccine (Season Ended) [facility] Start: 2024 Screening for malign ant neoplasm of cervix [facility] Start: 06-04-2024 Influenza vaccination Flu vaccine (# 1) [facility] Start: 07-05-2023 COVID-19 Vaccine ( season) COVID-19 Vaccine ( season) [facility] Start: 06-04-2023 Influenza vaccination Flu vaccine (# 1) [facility] Start: 02-20-2023 FUV, Provider: Cally Meyer, Status: Pen, Time: 9:15 AM FUV, Provider: Cally Meyer, Status: Pen, Time: 9:15 AM [facility] Work Phone: Start: 12-19-2022 FUV, Provider: Chacorta Erwin, Status: Pen, Time: 2:45 PM FUV, Provider: Chacorta Erwin, Status: Pen, Time: 2:45 PM [facility] Work Phone: Start: 09-08-2022 Syncope Syncope Date: 08-Sep-2022 [facility] Start: 2015 Screening for malign ant neoplasm of cervix [facility] Start: 2013 Hepatitis B vaccine (1 of 3 - 19+ 3-dose series) Hepatitis B vaccine (1 of 3 - 19+ 3-dose series) [facility] Start: 2013 Hepatitis B Vaccines (1 of 3 - 19+ 3-dose series) Hepatitis B Vaccines (1 of 3 - 19+ 3-dose series) [facility] Start: 2012 Hepatitis C screening B ON [facility] Start: 2009 HIV screening HIV screen [facility] Start: 2007 Varicella vaccination Varicell a Vaccines (1 of 2 - 13+ 2-dose series) [facility] Start: 2007 Varicella vaccine (1 of 2 - 13+ 2-dose series) Varicella vaccine (1 of 2 - 13+ 2-dose series) [facility] Start: 2006 Depression Screen [facility] Screen [facility] Start: 1995 MMR Vaccines (1 of 1 - Standard series) MMR Vaccines (1 of 1 - Standard series) [facility] Start: 1995 Varicella vaccine (1 of 2 - 2-dose childhood series) Varicella vaccine (1 of 2 - 2-dose childhood series) [facility] Start: 01-01-1995 COVID-19 Vaccine (#1) COVID-19 Vacci ne (#1) [facility] Start: 1994 Hepatitis B vaccine (1 of 3 - 3-dose series) Hepatitis B vaccine (1 of 3 - 3-dose series) [facility] Start: 1994 HIV screening HIV Screening [facility] Start: 1994 Lipid panel Lipid Panel [facility] Start: 1994 Yearly Adult Physical Yearly Adult P hysical [facility] C.trachomatis N.gonorrhoeae DNA C.trachomatis N.gonorrhoeae DNA Microbiology Routine 09/28/2024 6:55 AM EST [facility] Work Phone: C.trachomatis N.gonorrhoeae DNA C.trachomatis N.gonorrhoeae DNA Microbiology Routine 12/04/2024 7:45 AM EST [facility] Work Phone: End: 02-21-2024 Chlamydia trachomatis and Neisseria gonorrhoeae DNA [Identifier] in Unspecified specimen by JOSE R with probe detection [facility] Service Area Work Phone: Comment on above: Once (Lab) for 1 Occ urrences starting 02/21/2024 until 02/21/2024 EKG 12 Lead EKG 12 Lead ECG STAT 06/19/2023 9:49 PM EDT [employer] Phone: End: 12-08-2024 Hepatitis C RNA, quantitative, PCR [facility] Phone: Comment on above: Once for 1 Occurrenc es starting 12/08/2024 until 12/08/2024 End: 02-21-2024 Trichomonas vaginalis rRNA [Presence] in Unspecified specimen by JOSE R with probe detection [facility] Work Phone: Comment on above: Once (Lab) for 1 Occ urrences starting 02/21/2024 until 02/21/2024 Immunizations Immunization Date Immunization Notes Care Provider Tia johnson 11-13-2018 tetanus toxoid, redu wilson diphtheria toxoid, and acellular pertussis vaccine, adsorbed Chica Wisdom XY-JQQQ-Arvq [facility] Work Phone: Comment on above: Series: 08-05-2015 influenza virus vacc ine, unspecified formulation No PCP None [facility] Work Phone: Comment on above: Series: 08-05-2015 influenza, seasonal, injectable Chica Wisdom XW-SPKZ-Odbf [facility] Work Phone: 08-02-2015 tetanus toxoid, redu wilson diphtheria toxoid, and acellular pertussis vaccine, adsorbed Chica Wisdom PS-ORNW-Txss [facility] Work Phone: Comment on above: Series: Payers Date Payer Category Payer Unknown [id number] 2019 Unknown 2019 Unknown [id number] 1994 Unknown [id number] 2.16.8 40.1.415491.3.579.2.355 1994 Unknown [id number] 2.16.8 40.1.481481.3.579.2.355 1994 Unknown [id number] 2.16.8 40.1.503565.3.579.2.355 1994 Unknown [id number] 2.16.8 40.1.241170.3.579.2.355 1994 Unknown [id number] 2.16.8 40.1.318291.3.579.2.355 1994 Unknown [id number] 2.16.8 40.1.130449.3.579.2.355 1994 Unknown [id number] 2.16.8 40.1.899802.3.579.2.355 1994 Unknown [id number] 2.16.8 40.1.099470.3.579.2.355 1994 Unknown [id number] 2.16.8 40.1.423210.3.579.2.355 1994 Unknown [id number] 2.16.8 40.1.942669.3.579.2. 1994 Unknown [id number] 2.16.8 40.1.823777.3.579.2. 1994 Unknown [id number] 2.16.8 40.1.703455.3.579.2.355 1994 Unknown [id number] 2.16.8 40.1.760082.3.579.2.355 1994 Unknown [id number] 2.16.8 40.1.762883.3.579.2.1067 1994 Unknown [id number] 2.16.8 40.1.742492.3.579.2.1067 1994 Unknown [id number] 2.16.8 40.1.110447.3.579.2.8 1994 Unknown [id number] 2.16.8 40.1.536556.3.579.2.1067 1994 Unknown [id number] 2.16.8 40.1.642919.3.579.2.8 1994 Unknown [id number] 2.16. 840.1.341986.3.579.2.356 1994 Unknown [id number] 2.16.8 40.1.156673.3.579.2.182 1994 Unknown [id number] 2.16.8 40.1.441082.3.579.2.182 1994 Unknown [id number] 2.16.8 40.1.625928.3.579.2.182 1994 Unknown [id number] 2.16.84 0.1.818163.3.579.2.1246 1994 Unknown [id number] 2.16.8 40.1.873782.3.579.2.173 1994 Unknown [id number] 2.16.8 40.1.060066.3.579.2.173 1994 Unknown [id number] 2.16.8 40.1.994749.3.579.2.173 1994 Unknown [id number] 2.16.8 40.1.595024.3.579.2.173 1994 Unknown [id number] 2.16.8 40.1.815069.3.579.2.173 1994 Unknown [id number] 2.16.8 40.1.141491.3.579.2.173 1994 Unknown [id number] 2.16.8 40.1.669921.3.579.2.173 1994 Unknown [id number] 2.16.8 40.1.272875.3.579.2.173 Social History Date Type Detail Facility Assertion Tobacco smoking consumption unknown (finding) [id number] Work Phone: Tobacco smoking consumption unknown [facility] Start: 04-24-2024 Caffeine use Caffeine use [facility] Work Phone: Start: 10-08-2022 End: 02-21-2024 Tobacco smoking status NHIS Never smoked tobacco [employer] Start: 10-08-2022 End: 02-21-2024 Tobacco use and exposure Smokeless tobacco non-user [employer] Start: 10-08-2022 End: 04-24-2024 Alcohol intake Current drinker of alcohol (finding) [employer] Start: 06-20-2023 History SDOH Alcohol Frequency 3 [employer] Start: 08-17-2023 History SDOH Alcohol Std Drinks 2 [facility] Start: 1994 Sex Assigned At Not on file [facility] Start: 02-21-2024 Alcoholic beverage intake Lifetime non-drinker (finding) [facility] Work Phone: Start: 04-24-2024 Gender identity Not on file [facility] Work Phone: Start: 02-11-2024 End: 02-21-2024 Exposure to SARS-CoV-2 (event) Not sure [facility] Work Phone: How often to you hav e a drink containing alcohol? Never [facility] How many standard drinks containing alcohol do you have on a typical day? Patient does not drink [employer] Medical Equipment Procedure Code Equipment Code Equipment Original Text Equipment Identifier Dates Clip, [place], Tubal, Filshie Case [id number] Start: 06-18-2019 Comment on above: Description: Convert ed from [facility]. Please see archived information for full log information. Functional Status Date Assessment Result Facility NEGATED: Highlighted row Functional performance Functional status health issues are not documented Disease [id number]-[id number] [facility] Work Phone: Mental Status Date Assessment Result Facility NEGATED: Highlighted row Cognitive function [Interpretation] Cognitive status health issues are not documented Disease [id number]-Amjc [facility] Work Phone: Clinical Notes [...] h/o polysubstance abuse who was admitted to [facility] on 01/01 for spontaneous pneumothorax. She was transferred from [facility] with chest pain and dyspnea. This was [...] CT Surgery and Pulmonary Dear Dr. Hudson, RUG REPAIRER, Juliette is advised to follow up with you within 1-2 weeks. Items to follow up in ambulatory setting: Follow up CXR Follow-up with: [facility] Scheduled appointments: Future Appointments Date Time Provider Department Center 02/25/2025 3:30 PM Leodan Hardwick MD [facility] Comprehensiv Your medication list START taking [...] Medications These medications were sent to [facility] - [place], [place] - [address], [facility] [address] acetaminophen 500 mg tablet ARIPiprazole 5 mg [...] was 30 minutes. Signed Gil Zhang MD [facility] 01/07/2025 4:59 PM CC: KUMAR Hudson [facility] 01-07-2025 Note Expand All Collapse All Cardiothoracic Surgery Progress Note 01/05/2025 Room: [address] [place], [place] [id number] [facility] Juliette Hernández is a 29 y.o. female with medical history significant for anxiety, depression, and polysubstance abuse with history of overdose. Medical history obtained from the patient and the medical records. She presenting as direct admission to [facility] early this morning, transferred from [facility]. Upon presentation to [facility], she complained of right sided chest pain [...] tube was placed. She was transferred to [facility] for surgical evaluation for possible VATS with [...] to discuss surgical intervention. -Can follow-up with bus info consultant she sees at home in [place]. -No follow-up needed with CT Surgery outpatient. -Clinically stable to discharge per CT Surgery team. To reach Cardiothoracic Surgery Inpatient from 8am-4pm call Ascom #[phone]. Only use [employer] chat for general questions. If unable (more content not included)... [facility] 01-07-2025 Note Attestation signed by Narinder Valverde [...] denies, and alcohol use. Patient presented from [facility] as a direct admission due to spontaneous [...] was discharged home. Yesterday she presented to [facility] again with shortness of breath and chest pain/heaviness. She was found to have spontaneous pneumothorax. Chest tube was placed and she was transferred to [facility] for further management with possible VATS/pleurodesis. 01/05/25: [...] 60 mg, ora (more content not included)... [facility] 01-06-2025 Note Expand All Collapse All Cardiothoracic Surgery Progress Note 01/05/2025 Room: [address] [place] [address] Juliette Hernández is a 29 y.o. female with medical history significant for anxiety, depression, and polysubstance abuse with history of overdose. Medical history obtained from the patient and the medical records. She presenting as direct admission to [facility] early this morning, transferred from [facility]. Upon presentation to [facility], she complained of right sided chest pain [...] tube was placed. She was transferred to [facility] for surgical evaluation for possible VATS with [...] needs. SaO2 peter (more content not included)... [facility] 01-06-2025 Note Hospital Medicine Daily Progress Note - 01/06/2025 8:37 AM; Room: 3179/3179- Admission: 01/01/2025 12:02 AM; Length of stay: 5 days THE HOSPITALIST TEAM PREFERS TO USE [email or web address] FOR NON-URGENT COMMUNICATION 7AM-7PM. IF I DO NOT RESPOND WITHIN 20 MINUTES OR URGENT MATTERS, PLEASE CALL THROUGH THE CIVIL PREPAREDNESS OFFICER. FROM 7PM-7AM, PLEASE PAGE [phone](COVR). Code Status: Full Code Barriers to Discharge: [...] Heart murmur, aortic History of substance dependence ([facility]) Anxiety and depression Assessment and Plan Spontaneous [...] 2.68 01/01/2025 Lab Results Component Value Date [id number] 01/01/2025 IRON 53 01/01/2025 TIBC 378 [...] Self Care () Signed Gil Zhang MD [facility] 01/06/2025 8:37 AM [facility] 01-06-2025 Note Attestation signed by Narinder Valverde [...] denies, and alcohol use. Patient presented from [facility] as a direct admission due to spontaneous [...] was discharged home. Yesterday she presented to [facility] again with shortness of breath and chest pain/heaviness. She was found to have spontaneous pneumothorax. Chest tube was placed and she was transferred to [facility] for further management with possible VATS/pleurodesis. 01/05/25: [...] medications: HYDROmorphone, naloxone (more content not included)... [facility] 01-05-2025 Note Attestation signed by Narinder Valverde [...] denies, and alcohol use. Patient presented from [facility] as a direct admission due to spontaneous [...] was discharged home. Yesterday she presented to [facility] again with shortness of breath and chest pain/heaviness. She was found to have spontaneous pneumothorax. Chest tube was placed and she was transferred to [facility] for further management with possible VATS/pleurodesis. 01/05/25: [...] IV AND sodium (more content not included)... [facility] 01-05-2025 Note Hospital Medicine Daily Progress Note - 01/05/2025 7:47 AM; Room: [address] [place] [address] Admission: 01/01/2025 12:02 AM; Length of stay: 4 days THE HOSPITALIST TEAM PREFERS TO USE [email or web address] FOR NON-URGENT COMMUNICATION 7AM-7PM. IF I DO NOT RESPOND WITHIN 20 MINUTES OR URGENT MATTERS, PLEASE CALL THROUGH THE CIVIL PREPAREDNESS OFFICER. FROM 7PM-7AM, PLEASE PAGE [phone](COVR). Code Status: Full Code Barriers to Discharge: [...] 2.68 01/01/2025 Lab Results Component Value Date [id number] 01/01/2025 IRON 53 01/01/2025 TIBC 378 [...] Self Care () Signed Gil Zhang MD [facility] 01/05/2025 7:47 AM [facility] 01-05-2025 Note Cardiothoracic Surge ry Progress Note 01/05/2025 Room: 3179/3179-01 [facility] Juliette Hernández is a 29 y.o. female with medical history significant for anxiety, depression, and polysubstance abuse with history of overdose. Medical history obtained from the patient and the medical records. She presenting as direct admission to [facility] early this morning, transferred from [facility]. Upon presentation to [facility], she complained of right sided chest pain [...] tube was placed. She was transferred to [facility] for surgical evaluation for possible VATS with [...] acute process Electron (more content not included)... [facility] 01-04-2025 Note Attestation signed by Narinder Valverde [...] MD Pulmonary Disease & Critical Care Medicine [facility] 01-04-2025 Note Cardiothoracic Surge ry Progress Note 01/04/2025 Room: [facility]/3179- Subjective Juliette Hernández is a 29 y.o. female with medical history significant for anxiety, depression, and polysubstance abuse with history of overdose. Medical history obtained from the patient and the medical records. She presenting as direct admission to [facility] early this morning, transferred from [facility]. Upon presentation to [facility], she complained of right sided chest pain [...] tube was placed. She was transferred to [facility] for surgical evaluation for possible VATS with [...] Cardiothoracic Surgery Inpatient from 8am-4pm call Ascom #[phone]. Only use [email or web address] chat for general questions. If unable to reach Ascom Number call hospital deflector operator for Cardiothoracic Provider Elementary Teacher. Cardiothoracic Surgery outp (more content not included)... [facility] 01-04-2025 Note Hospital Medicine Daily Progress Note - 01/04/2025 7:10 AM; Room: [address] [place] [address] Admission: 01/01/2025 12:02 AM; Length of stay: 3 days THE HOSPITALIST TEAM PREFERS TO USE [employer] CHAT FOR NON-URGENT COMMUNICATION 7AM-7PM. IF I DO NOT RESPOND WITHIN 20 MINUTES OR URGENT MATTERS, PLEASE CALL THROUGH THE CIVIL PREPAREDNESS OFFICER. FROM 7PM-7AM, PLEASE PAGE [phone](COVR). Code Status: Full Code Barriers to Discharge: [...] Heart murmur, aortic History of substance dependence (CMS/[facility]) Anxiety and depression Assessment and Plan Spontaneous [...] 2.68 01/01/2025 Lab Results Component Value Date [id number] 299 01/01/2025 IRON 53 01/01/2025 TIBC 378 01/01/2025 Imaging XR chest 1 view Narrative: XR CHEST 1 VIEW 01/03/2025 6:54 AM CLINICAL INDICATIONS: Check chest tube. COMPARISON: 01/02/2025 FINDINGS: Right pigtail drain remains in place Impression: No concerning residual pneumothorax is appreciated. No new airspace disease or infiltrate is noted. No acute process. Electronically signed: Haritha Ivan. Discharge Planning Signed Gil Zhang MD [facility] 01/04/2025 7:10 AM [facility] 01-03-2025 Note Hospital Medicine Daily Progress Note - 01/03/2025 7:10 AM; Room: [address] [place] [address] Admission: 01/01/2025 12:02 AM; Length of stay: 2 days THE HOSPITALIST TEAM PREFERS TO USE [email or web address] FOR NON-URGENT COMMUNICATION 7AM-7PM. IF I DO NOT RESPOND WITHIN 20 MINUTES OR URGENT MATTERS, PLEASE CALL THROUGH THE CIVIL PREPAREDNESS OFFICER. FROM 7PM-7AM, PLEASE PAGE [phone](COVR). Code Status: Full Code Barriers to Discharge: [...] Heart murmur, aortic History of substance dependence ([facility]) Anxiety and depression Assessment and Plan Spontaneous [...] 2.68 01/01/2025 Lab Results Component Value Date [id number] 299 01/01/2025 IRON 53 01/01/2025 TIBC 378 [...] volume loss and partial collapse. Impression: Impression: Fykbk-ym-tnjswlth right pneumothorax with right lung volume loss with partial (more content not included)... [facility] 01-03-2025 Note Cardiothoracic Surge ry Progress Note 01/03/2025 Room: [facility]/3179-01 Subjective Juliette Hernández is a 29 y.o. female with medical history significant for anxiety, depression, and polysubstance abuse with history of overdose. Medical history obtained from the patient and the medical records. She presenting as direct admission to [facility] early this morning, transferred from [facility]. Upon presentation to [facility], she complained of right sided chest pain [...] tube was placed. She was transferred to [facility] for surgical evaluation for possible VATS with [...] procedure notes, radiology reports and imaging from [facility] for the month of December, which these events of PTX occurred. If this is, in fact, a recurrence, then we may consider surgical treatment after weighing risks and benefits. -Medical management per primary team. -CT Surgery will continue to follow. To reach Cardiothoracic Surgery Inpatient from 8am-4pm call Ascom #[phone]. Only use [email or web address] chat for general questions. If unable to reach Ascom Number call hospital deflector operator for Cardiothoracic Provider Elementary Teacher. Cardiothoracic (more content not included)... [facility] 01-02-2025 Note Chest Tube Insertion Date/Time: 01/02/2025 10:00 AM Performed by: Vishnu Miramontes MD Authorized by: Vishnu Miramontes MD Consent: Consent obtained: Written Consent given by: Patient Risks, benefits, and alternatives were discussed: yes Risks discussed: Damage to surrounding structures and bleeding [place] protocol: Procedure explained and questions answered to [...] material: 2-0 silk Dressinx4 sterile gauze Comments: Lathe Set Up Person: Michael Miller CNP Chest tube insertion requested [...] to confirm tube position, will follow result [facility] 01-02-2025 Note Cardiothoracic Surge ry Progress Note 01/02/2025 Room: [facility]/3179[facility] Subjective Juliette Hernández is a 29 y.o. female with medical history significant for anxiety, depression, and polysubstance abuse with history of overdose. Medical history obtained from the patient and the medical records. She presenting as direct admission to [facility] early this morning, transferred from [facility]. Upon presentation to [facility], she complained of right sided chest pain [...] tube was placed. She was transferred to [facility] for surgical evaluation for possible VATS with pleurodesis. Interval: Overnight CXR obtained at 0200 this morning and showed 4.2 cm PTX. Patinet remained in no respiratory distress and hemodynamically stable. Connections checked per RN/CORONER of chest tube, dressing removed and checked [...] CHEST 1 VIEW - Impression - Impression: Cvxoh-yv-flhvjnev right pneumothorax with right lung volume loss with partial collapse. Electronically signed: Guy Corea. XR CHEST 2 VIEWS - Impression - * Right chest tube, no pneumothorax. * No acute cardiopulmonary disease. * Normal heart size. Electronically signed: Checo Amaya MD. CT TRANSFER OF OUTSIDE FI (more content not included)... [facility] 01-02-2025 Note Hospital Medicine Daily Progress Note - 01/02/2025 7:00 AM; Room: 3179/3179-01 Admission: 01/01/2025 12:02 AM; Length of stay: 1 days THE HOSPITALIST TEAM PREFERS TO USE [email or web address] FOR NON-URGENT COMMUNICATION 7AM-7PM. IF I DO NOT RESPOND WITHIN 20 MINUTES OR URGENT MATTERS, PLEASE CALL THROUGH THE CIVIL PREPAREDNESS OFFICER. FROM 7PM-7AM, PLEASE PAGE [phone](COVR). Code Status: Full Code Barriers to Discharge: [...] 2.68 01/01/2025 Lab Results Component Value Date [id number] 299 01/01/2025 IRON 53 01/01/2025 TIBC 378 01/01/2025 Imaging XR chest 1 view Narrative: Single view chest History: Pneumothorax, follow-up Comparison: 12/24/2024 Findings: Single portable view of the chest. Small to moderate right pneumothorax measuring 4.2 to 4.3 cm. Right lung volume loss and partial collapse. Impression: Impression: Wvoex-eo-lmcqursl right pneumothorax with right lung volume loss [...] Zhang MD Hospital Medicine 01/02/2025 7:00 AM [facility] 01-01-2025 Note Patient came to echo lab for test but was crying in pain. I gave her the option to try test at a later time and she was agreeable. Will try again this afternoon. [facility] 01-01-2025 Note Consider echocardiog keon murmur as a second right intercostal space no radiation and unchanged with handgrip and no exertional chest pain syncope or dyspnea [facility] 01-01-2025 Note Since this was the s econd episode the hospitalist at [facility] contact CTS at [facility] and it was decided to transfer patient to [facility] continue pain control incentive spirometry chest tube care follow-up with CTS will repeat labs and chest x-ray in the morning [facility] 01-01-2025 Note Hospital Medicine History and Physical 01/01/2025 1:11 AM THE HOSPITALIST TEAM PREFERS TO USE [employer] CHAT FOR NON-URGENT COMMUNICATION 7AM-7PM. IF I DO NOT RESPOND WITHIN 20 MINUTES OR URGENT MATTERS, PLEASE CALL THROUGH THE CIVIL PREPAREDNESS OFFICER. FROM 7PM-7AM, PLEASE PAGE [phone](COVR). Chief Complaint No chief complaint on file. History of Present Illness Juliette Hernández is an 29 y.o. female admitted from [facility] where she presented with new onset chest [...] STDs denies hepatitis HIV she works at [employer] Review of System and Physical Exam Heart [...] was the second episode the hospitalist at [facility] contact CTS at [facility] and it was decided to transfer patient to [facility] continue pain control incentive spirometry chest tube [...] this hospital stay by a member of [facility] Medicine. Past Medical History History reviewed. [...] Food in th (more content not included)... [facility] 02-21-2024 Emergency department Note HPI Chief Complaint [...] painful. She denies a rash anywhere else. [place] Coma Scale Score: 15 Patient History Past Medical History: Diagnosis Date Anemia complicating , unspecified trimester ([facility]) Anemia of mother in Chlamydial infection, unspecified Positive Chlamyida test Encounter for screening for infections with a predominantly sexual mode of transmission Screen for STD (sexually transmitted disease) Gonococcal infection, unspecified Gonorrhea in female Missed ([facility]) Missed Other abnormal findings in urine [...] PA-C 02/21/24 1101 documented in this encounter [facility] Work Phone: 02-21-2024 Physician Emergency department [...] painful. She denies a rash anywhere else. [place] Coma Scale Score: 15 Patient History Past [...] Procedure Procedures Radha Lima PA-C 02/21/24 1101 [facility] Work Phone: 10-16-2021 Note HNO ID: [id number] Author: Juan Antonio Esqueda PA-C Service: ? Author Type: Physician Lathe Set Up Person Type: Progress Notes Filed: 10/16/2021 10:24 AM Note Text: This note was created using [employer]. Subjective Juliette Hernández is a 26 year [...] Exam Vitals reviewed. Exam conducted with a sap technical architect present (Latia Pantoja MA present for exam). [...] Abstain from se (more content not included)... [facility] 07-15-2021 Note HNO ID: [id number] Author: Rubina Lala PA-C Service: ? Author Type: Physician Lathe Set Up Person Type: Progress Notes Filed: 07/15/2021 1:58 PM Note Text: This note was created using [employer]. Subjective Juliette Hernández is a 26 year [...] while awaiting COVID results. - 2019 CORONAVIRUS [facility] Evaluation note Diagnosis Multiple drug overdose, accidental or unintentional, initial encounter- Primary [facility] Diagnosis Trichomonas exposure- Primary Rash Rash and other nonspecific skin eruption documented in this encounter [facility] Work Phone: History of Present illness [...] grammatical areas may persist related to the [employer] software * Chacorta Erwin MD * Office: * . [facility] [facility] Work Phone: History of Present illness Narrative* Patient has sexual pain associated with myofascial etiology previously discussed multiple times * Worse now reports doing Kegel exercises discussed that this exacerbates muscle tension as it does not include the relaxation phase reputable muscles causes tenderness worsening of pain * Discussed physical therapy * Discussed trigger point injection Botox injection Kerry therapy [facility] Work Phone: Hospital Discharge instructions* Attachments The following attachments cannot be sent through Care Everywhere. * Drug Overdose: Multidrug (Nauruan) [facility]* Attachments The following attachments cannot be sent through Care Everywhere. * Skin Rash ED (Nauruan) * Sexually transmitted infections (Nauruan) [facility] Work [facility]: Summary Purpose Family History [...] intercourse and with insert of tampon * sap technical architect mariam rma * Est pt here for pain with intercourse and with insert of tampon * sap technical architect mariam rma Additional Source Comments INFORMATION SOURCE (unrecogn ized section and content) DATE CREATED AUTHOR 01/26/2019 [facility] DATE CREATED AUTHOR AUTHOR'S ORGANIZ ATION 12/11/2021 [facility] DATE CREATED AUTHOR AUTHOR'S ORGANIZ ATION 01/03/2023 [facility] DATE CREATED AUTHOR AUTHOR'S ORGANIZ ATION 01/11/2023 [facility] DATE CREATED AUTHOR AUTHOR'S ORGANIZ ATION 01/12/2023 [employer] DATE CREATED AUTHOR AUTHOR'S ORGANIZ ATION 06/21/2023 [facility] DATE CREATED AUTHOR AUTHOR'S ORGANIZ ATION 02/22/2024 [facility] DATE CREATED AUTHOR AUTHOR'S ORGANIZ ATION 12/13/2024 [facility] DATE CREATED AUTHOR AUTHOR'S ORGANIZ ATION 01/11/2025 [facility] <item><item><item><item><item> Privacy Markings (unrecogniz ed section [...] Care Teams (unrecognized sec tion and content) Pneudraulic Systems Mechanic Relationship Specialty Start Date End Date Chacorta Erwin MD [address] [facility], [address] [place] [address] PCP - Finnjanine OLMSTEAD PCP 08/04/23 Generic Provider, No Assigned Pcp, [place] [address] PCP - General Wire Loop Machine Operator 02/21/24 Pneudraulic Systems Mechanic Relationship Specialty Start Date End Date Sunny Lilly MD [address] [place] [address] PCP - General Neurology 06/25/23 Pneudraulic Systems Mechanic Relationship Specialty Start Date End Date Sunny Lilly MD [address] [place] [address] PCP - General Neurology 06/25/23 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 [facility]. provides no warranty or guarantee of the accuracy or completeness of information in this document.
--- NOTE | 2025-01-15 21:09 | ECG_ITS ---
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 Measurements Intervals [place] Rate: 63 P: 56 MA: 148 QRS: 66 QRSD: 82 T: -5 QT: 396 QTc: 403 Interpretive Statements 1100 Sinus rhythm 1102 Sinus arrhythmia 4068 Nonspecific Twave abnormality 9130 Abnormal ECG Compared to ECG 12/31/2024 16:36:35 No significant changes Electronically Signed On 01-16-2025 8:40:55 EDT by JONO JETER M.D.
--- NOTE | 2025-01-15 21:19 | ED.GENADUL1 ---
HPI HPI - General Adult General Chief complaint: Shortness of Breath/Dyspnea Stated complaint: DIFF BREATHING-RIGHT SIDE Time Seen by Provider: 01/15/25 20:39 Source: patient Mode of arrival: walk-in Limitations: no limitations History of Present Illness HPI narrative: 29-year-old female presents for chest pain. It started about 2 hours ago and it is in the right lower lateral rib area. There was no injury. She is worried she might have a collapsed lung. She had 2 in the month of December. Each time she had a chest tube and the second time she had surgery for it. She had no trauma today and has not had a fever. No abdominal pain or vomiting. Related Data Home Medications ?Medication ?Instructions ?Recorded ?Confirmed fluoxetine 20 mg capsule 20 mg PO DAILY 12/16/24 01/15/25 fluoxetine 40 mg capsule (Prozac) 40 mg PO DAILY 12/16/24 01/15/25 aripiprazole 5 mg tablet 5 mg PO QAM 01/15/25 01/15/25 penicillin V potassium 500 mg 500 mg PO Q12H 01/15/25 01/15/25 tablet Allergies Allergy/AdvReac Type Severity Reaction Status Date / Time No Known Drug Allergies Allergy Verified 12/16/24 08:57 Opioid HPI Opioid Management Most Recent Opioid Data: Last Pain Scale 9 01/15/25 22:46 01/15/25 Last ORT Total Score 6 12/16/24 13:48 12/16/24 Last ORT Risk Category Moderate Risk 12/16/24 13:48 12/16/24 Review of Systems ROS Narrative A ten point review of systems is negative except as noted above. PFSH PFSH Medical History (Updated 01/15/25 @ 23:50 by Jonah Cruz MD) Primary spontaneous pneumothorax (12/16/24) ?J93.11 - Primary spontaneous pneumothorax (ICD-10) Pneumothorax on right ?J93.9 - Pneumothorax, unspecified (ICD-10) Urinary tract infection ?N39.0 - Urinary tract infection, site not specified (ICD-10) Anxiety ?F41.9 - Anxiety disorder, unspecified (ICD-10) History of depression ?Z86.59 - Personal history of other mental and behavioral disorders (ICD-10) Family History (Updated 12/16/24 @ 13:52 by Yuliana Tang RN) Grandfather Family history of myocardial infarction Mother Family history of myocardial infarction Grandmother Family history of cancer Social History (Updated 12/16/24 @ 13:52 by Yuliana Tang RN) Within the past year, how often did you have a drink containing alcohol: never Score interpretation: A score less than 3 is consistent with normal alcohol consumption. Smoking status: Never smoker Non-prescribed substance use: denies use Highest level of school completed/degree received: GED or equivalent Little interest or pleasure in doing things: not at all Feeling down, depressed, or hopeless: not at all Exam Narrative Exam Narrative: Nurses note and vital signs reviewed and patient is not hypoxic. General: The patient appears in no apparent distress. She appears concerned. Skin: Warm, dry, no pallor noted. There is no rash noted. Head: Normocephalic, atraumatic Eye: Normal conjunctiva, no drainage Ears, Nose, Mouth, and Throat: oral mucosa is moist. Nares patent. Cardiovascular: Regular Rate and Rhythm Respiratory: Patient is in no distress, no accessory muscle use, lungs are clear to auscultation, no wheezing, rales or rhonchi. Breath sounds are equal Back: non-tender GI: Soft and nontender Musculoskeletal: The patient has no evidence of calf tenderness, no pitting edema, symmetrical pulses noted bilaterally Neurological: A&O, normal speech Psychiatric: Cooperative Constitutional Vital Signs, click to edit/add: Last Vital Signs Temp 97.9 F 01/15/25 20:50 Pulse 78 01/15/25 22:40 Resp 19 01/15/25 22:10 BP 117/79 01/15/25 22:31 Pulse Ox 94 L 01/15/25 22:40 O2 Del Method Room Air 01/15/25 20:50 Course Vital Signs Vital signs: Vital Signs Temperature 97.9 F 01/15/25 20:50 Pulse Rate 100 H 01/15/25 20:50 Respiratory Rate 18 01/15/25 20:50 Blood Pressure 129/79 01/15/25 20:50 Pulse Oximetry 100 01/15/25 20:50 Oxygen Delivery Method Room Air 01/15/25 20:50 Temperature 97.9 F 01/15/25 20:50 Pulse Rate 78 01/15/25 22:40 Respiratory Rate 19 01/15/25 22:10 Blood Pressure 117/79 01/15/25 22:31 Pulse Oximetry 94 L 01/15/25 22:40 Oxygen Delivery Method Room Air 01/15/25 20:50 Medical Decision Making MDM Narrative Medical decision making narrative: Her workup is negative. There is no evidence of pneumothorax or pulmonary embolism. She seems to be feeling improved and is able to be discharged home. Treatment diagnosis and follow-up were discussed with the patient. Differential Diagnosis Differential Diagnosis: Pneumothorax, PE, muscle strain, rib fracture Lab Data Lab results reviewed: Yes I reviewed the patient's lab results Labs: Lab Results 01/15/25 Range/Units 21:24 WBC 5.3 (4.0-11.0) 10^3/uL RBC 3.71 L (4.20-5.40) 10^6/uL Hgb 10.0 L (12.0-16.0) g/dL Hct 31.0 L (36.0-48.0) % MCV 83.6 (81.0-99.0) fL MCH 27.0 (26.7-34.0) pg MCHC 32.3 (29.9-35.2) g/dL RDW 13.2 (11.0-15.0) % Plt Count 328 (150-450) 10^3/uL MPV 9.4 L (9.5-13.5) fL Neut % (Auto) 54.8 (43.0-75.0) % Lymph % (Auto) 27.6 (20.5-60.0) % Cotton % (Auto) 14.3 H (1.7-12.0) % Eos % (Auto) 2.5 (0.9-7.0) % Baso % (Auto) 0.6 (0.2-2.0) % Neut # (Auto) 2.9 (1.4-6.5) 10^3/uL Lymph # (Auto) 1.5 (1.2-3.8) 10^3/uL Cotton # (Auto) 0.8 (0.3-0.8) 10^3/uL Eos # (Auto) 0.1 (0.0-0.7) 10^3/uL Baso # (Auto) 0.0 (0.0-0.1) 10^3/uL Abs Immat Gran (auto) 0.01 (0.00-0.03) 10^3/uL Imm/Tot Granulo (auto) 0.2 (0.0-0.5) % Sodium 140 (136-145) mmol/L Potassium 3.6 (3.5-5.1) mmol/L Chloride 102 (98-107) mmol/L Carbon Dioxide 30.1 (21.0-32.0) mmol/L Anion Gap 11.5 BUN 13.0 (7.0-18.0) mg/dL Creatinine 0.72 (0.55-1.02) mg/dL Est GFR ( Amer) >60 (>=60 mL/min/1.73m^2) Est GFR (Non-Af Amer) >60 (>=60 mL/min/1.73m^2) BUN/Creatinine Ratio 18.1 Glucose 95 (74-106) mg/dL Calcium 8.9 (8.5-10.1) mg/dL Imaging Data Chest x-ray, CTA: Radiologist's impression: Chest x-ray: No acute process seen in the chest, no lobar consolidation or edema, no bronchial inflammation, no pneumothorax CTA: No thoracic aortic aneurysm or dissection, no pulmonary embolus, very small right and left pleural effusion ECG Data Attestation: I personally reviewed and interpreted this ECG as follows: (EKG on my interpretation shows sinus rhythm with a rate of 63 and no acute change) Discharge Plan Discharge Chief Complaint: Shortness of Breath/Dyspnea Clinical Impression: Chest wall pain Patient Disposition: Home, Self-Care Time of Disposition Decision: 23:49 Condition: Good Mode of Transportation: Private Vehicle Prescriptions / Home Meds: No Action aripiprazole 5 mg tablet 5 mg PO QAM penicillin V potassium 500 mg tablet 500 mg PO Q12H fluoxetine [Prozac] 40 mg capsule 40 mg PO DAILY Patient Comments: 60mg daily fluoxetine 20 mg capsule 20 mg PO DAILY Print Language: Guyanese Instructions: Chest Wall Pain (ED) Referrals: YUE CARTER [Primary Care Provider] - 1 week
[2025-01-15 21:40] LABS: Basophils Percent Auto 0.6 % (0.2-2.0); Eosinophils Absolute Auto 0.1 10^3/uL (0.0-0.7); Eosinophils Percent Auto 2.5 % (0.9-7.0); Immature Granulocytes Abs Auto 0.01 10^3/uL (0.00-0.03); Immature Granulocytes Pct Auto 0.2 % (0.0-0.5); Lymphocytes Absolute Auto 1.5 10^3/uL (1.2-3.8); Lymphocytes Percent Auto 27.6 % (20.5-60.0); Mean Corpuscular HGB Conc 32.3 g/dL (29.9-35.2); Mean Corpuscular Volume 83.6 fL (81.0-99.0); Mean Platelet Volume 9.4 fL (9.5-13.5); Monocytes Absolute Auto 0.8 10^3/uL (0.3-0.8); Monocytes Percent Auto 14.3 % (1.7-12.0); Neutrophils Absolute Auto 2.9 10^3/uL (1.4-6.5); Neutrophils Percent Auto 54.8 % (43.0-75.0); Platelet Count 328 10^3/uL (150-450); Red Blood Count 3.71 10^6/uL (4.20-5.40); Red Cell Distribution Width 13.2 % (11.0-15.0); White Blood Count 5.3 10^3/uL (4.0-11.0)
[2025-01-15] MEDS: MORPHINE SULFATE 4 MG/ML VIAL IV (21:45)
[2025-01-15 21:47] LABS: Anion Gap 11.5; BUN Creatinine Ratio 18.1; Calcium 8.9 mg/dL (8.5-10.1); Carbon Dioxide 30.1 mmol/L (21.0-32.0); Chloride 102 mmol/L (98-107); Estimated GFR (African America >60 (>=60 mL/min/1.73m^2); Estimated GFR (Non-African Ame >60 (>=60 mL/min/1.73m^2); Glucose 95 mg/dL (74-106); Potassium 3.6 mmol/L (3.5-5.1); Sodium 140 mmol/L (136-145)
[2025-01-15] MEDS: KETOROLAC TROMETHAMINE 30 MG/ML VIAL IVP (22:46)
[2025-01-16 00:15] VITALS: BP 118/53; PULSE 74; O2SAT 94
== END 2025-01-16 00:15 | disposition home or self-care (01) ==
PROVIDERS: Emergency Provider Emergency Medicine; PCP Nurse Practitioner Family
DX: R07.89 Other chest pain (principal)
CPT/HCPCS: 36415; 71045; 71275; 80048; 85025; 93005; 96374; 96375; 99285; J1885; J2270; Q9967

== ENCOUNTER 2025-01-22 19:37 | Emergency (ER) | payer OTHER, SELFPAY ==
--- OUTSIDE RECORDS SUMMARY | 2025-01-22 19:42 | XMS_ITS | CCD ---
Author Organization [facility] Care Team Providers Care Loss Control Representative Name Role Phone MAXX, BRAULIO Primary Care [...] None, No PCP Unavailable Unavailable Unavailable Unavailable Jamra, Dr. Kikr Roberson Attending Unavailab le Rip, Dr. 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 Patient did cancel her appointment. Thank you. [facility] 36 Patient was recently seen in the ER for spontaneous pneuomthorax. Patient states she was prescribed oxycodone while in the hospital. She continues to have pain. She is inquiring on a pain medication refill to last her until her pulmonary appointment with Dr. Hudson this upcoming . 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 Please advise. [facility] 30on 01-07-2025 30 Problem: Pain - [...] 0910 by Malena Tatum RN Outcome: Progressing [facility] 30 Problem: Pain - Adul t [...] clinical goals for the shift include VSS [facility] NURSNOTEon 01-07-2025 NURSNOTE Discharge paperwork gone over with patient at this time. All questions answered at bedside. Patient denies further questions. [facility] 30on 01-06-2025 30 The patient is Moder ately Stable - Low risk of patient condition declining or worsening The patient's goals for the shift include Comfort, rest The clinical goals for the shift include VSS, Safety [facility] 30 The patient is Moder ately [...] or baseline comfort level Outcome: Progressing . [facility] 30 Daily Case Managemen t Update [...] PT Recommendations: OT Recommendations: New Consults: Normal [facility] 30 The patient is Moder ately [...] and prevent overall improvement and discharge Normal [facility] BASIC METABOLIC PANELon 03-0 Anion gap [Moles/Vol] 16 mmol/L Normal 7-20 [facility] Comment on above: Performed By: #### L [id number] #### [facility] ([facility]) [address] [place] [address] Calcium [Mass/Vol] 9.1 mg/dL Normal 8.6-10.3 [facility] Comment on above: Performed By: #### L [id number] #### [facility] [address] [place] [address] Chloride [Moles/Vol] 103 mmol/L Normal 98-107 [facility] Comment on above: Performed By: #### L [id number] #### [facility] ([facility]) [address] [place] [address] CO2 [Moles/Vol] 25 mmol/L Normal 21-31 [facility] Comment on above: Performed By: #### L [id number] #### [facility] ([facility]) [address] [place] [address] Creatinine [Mass/Vol] 0.70 mg/dL Normal 0.60-1.20 [facility] Comment on above: Performed By: #### L [id number] #### [facility] ([facility]) [address] [place] [address] GLOMERULAR FILTRATION RATE ML/MIN/1.73 SQ M.PREDICTED 119.2 mL/min/1.73m*2 Normal >60.0 [facility] Comment on above: Result Comment: The [facility]???s estimated glomerular filtration rate (eGFR) will [...] individuals. Performed By: #### L [id number] #### [facility] [address] [place] [address] Glucose [Mass/Vol] 91 mg/dL Normal 70-100 [facility] Comment on above: Performed By: #### L [id number] #### [facility] ([facility]) [address] [place] [address] Potassium [Moles/Vol] 4.0 mmol/L Normal 3.5-5.1 [facility] Comment on above: Performed By: #### L [id number] #### [facility] ([facility]) [address] [place] [address] Sodium [Moles/Vol] 140 mmol/L Normal 136-145 [facility] Comment on above: Performed By: #### L [id number] #### [facility] ([facility]) [address] [place] [address] Urea nitrogen [Mass/Vol] 20 mg/dL Normal 7-25 [facility] Comment on above: Performed By: #### L [id number] #### [facility] ([facility]) [address] [place] [address] UREA NITROGEN/CREATININ E (MASS RATIO) IN SER/PLAS 28.6 Normal [facility] Comment on above: Performed By: #### L [id number] #### [facility] ([facility]) [address] [place] [address] CBC WITH AUTO DIFFERENTIALon 01-06-2025 Basophils (Bld) [#/Vol] 0.03 10*3/uL Normal 0.00-0.20 [facility] Comment on above: Performed By: #### L [id number] ####[facility] ([facility])[address] [place] [address] Basophils/100 WBC (Bld) 0.5 % Normal 0.0-1.0 [facility] Comment on above: Performed By: #### L [id number] ####[facility] ([facility])[address] [place] [address] Eosinophils (Bld) [#/Vol] 0.17 10*3/uL Normal 0.00-0.50 [facility] Comment on above: Performed By: #### L [id number] ####[facility] ([facility])[address] [place] [address] Eosinophils/100 WBC (Bld) 2.8 % Normal 0.0-6.0 [facility] Comment on above: Performed By: #### L [id number] ####[facility] ([facility])[address] [place] [address] Erythrocyte distribution width (RBC) [Ratio] 13.5 % Normal 11.5-15.0 [facility] Comment on above: Performed By: #### L [id number] ####[facility] [place] [address] ERYTHROCYTE MEAN CORPUSCULAR HEMOGLOBIN CONCENTRATION (G/DL) BY AUTOMATED 31.4 g/dL Low 32.0-35.0 [facility] Comment on above: Performed By: #### L [id number] ####[facility] ([facility] [place] [address] Hematocrit (Bld) [Volume fraction] 35.7 % Low 36.0-48.0 [facility] Comment on above: Performed By: #### L [id number] ####[facility] ([facility])[address] [place] [address] Hemoglobin (Bld) [Mass/Vol] 11.2 g/dL Low 12.0-15.0 [facility] Comment on above: Performed By: #### L [id number] ####[facility] ([facility])[address] [place] [address] Immature granulocytes (Bld) [#/Vol] 0.02 10*3/uL Normal 0.00-0.20 [facility] Comment on above: Performed By: #### L [id number] ####[facility] ([facility])[address] [place] [address] Immature granulocytes/100 WBC (Bld) 0.3 % Normal 0.0-1.0 [facility] Comment on above: Performed By: #### L [id number] ####[facility] ([facility])[address] [place] [address] Lymphocytes (Bld) [#/Vol] 1.32 10*3/uL Normal 1.20-4.00 [facility] Comment on above: Performed By: #### L [id number] ####[facility] ([facility])[address] [place] [address] Lymphocytes/100 WBC (Bld) 21.6 % Normal 20.0-45.0 [facility] Comment on above: Performed By: #### L [id number] ####[facility] ([facility])[address] [place] [address] MCH (RBC) [Entitic mass] 26.8 pg Low 27.0-33.0 [facility] Comment on above: Performed By: #### L [id number] ####[facility] ([facility])[address] [place] [address] MCV (RBC) [Entitic vol] 85.4 fL Normal 82.0-98.0 [facility] Comment on above: Performed By: #### L [id number] ####[facility] ([facility])[address] [place] [address] Monocytes (Bld) [#/Vol] 0.62 10*3/uL Normal 0.10-1.00 [facility] Comment on above: Performed By: #### L [id number] ####[facility] ([facility])[address] [place] [address] Monocytes/100 WBC (Bld) 10.1 % Normal 5.0-12.0 [facility] Comment on above: Performed By: #### L [id number] ####[facility] ([facility])[address] [place] [address] Neutrophils (Bld) [#/Vol] 3.95 10*3/uL Normal 1.60-7.60 [facility] Comment on above: Performed By: #### L [id number] ####[facility] ([facility])[address] [place] [address] Neutrophils/100 WBC (Bld) 64.7 % Normal 40.0-72.0 [facility] Comment on above: Performed By: #### L [id number] ####[facility] ([facility])[address] [place] [address] NRBC (PER 100 WBCS) BY AUTOMATED COUNT 0.0 % Normal 0 [facility] Comment on above: Performed By: #### L [id number] ####[facility] ([facility])[address] [place] [address] PLATELETS (10*3/UL) IN BLOOD AUTOMATED COUNT 318 10*3/uL Normal 150-400 [facility] Comment on above: Performed By: #### L [id number] ####[facility] ([facility])[address] [place] [address] RBC (Bld) [#/Vol] 4.18 10*6/uL Normal 3.80-5.00 [facility] Comment on above: Performed By: #### L [id number] ####[facility] ([facility])[address] [place] [address] WBC (Bld) [#/Vol] 6.11 10*3/uL Normal 4.00-10.60 [facility] Comment on above: Performed By: #### L [id number] ####[facility] ([facility])[address] [place] [address] MAGNESIUMon 01-06-2025 Magnesium [Mass/Vol] 1.8 mg/dL Low 1.9-2.7 [facility] Comment on above: Performed By: #### L [id number] ####[facility] ([facility] [place] [address] 30on 01-05-2025 30 Daily Case Managemen t [...] appropriate for patient?: Yes New Consults: Normal [facility] BASIC METABOLIC PANELon 03-0 Anion gap [Moles/Vol] 15 mmol/L Normal 7-20 [facility] Comment on above: Performed By: #### L [id number] #### [facility] ([facility]) [address] [place] [address] Calcium [Mass/Vol] 9.3 mg/dL Normal 8.6-10.3 [facility] Comment on above: Performed By: #### L [id number] #### [facility] ([facility]) [address] [place] [address] Chloride [Moles/Vol] 103 mmol/L Normal 98-107 [facility] Comment on above: Performed By: #### L [id number] #### [facility] ([facility]) [address] [place] [address] CO2 [Moles/Vol] 24 mmol/L Normal 21-31 [facility] Comment on above: Performed By: #### L [id number] #### [facility] ([facility]) [address] [place] [address] Creatinine [Mass/Vol] 0.62 mg/dL Normal 0.60-1.20 [facility] Comment on above: Performed By: #### L [id number] #### [facility] ([facility]) [address] [place] [address] GLOMERULAR FILTRATION RATE ML/MIN/1.73 SQ M.PREDICTED 122.8 mL/min/1.73m*2 Normal >60.0 [facility] Comment on above: Result Comment: The [facility]???s estimated glomerular filtration rate (eGFR) will [...] individuals. Performed By: #### L [id number] #### [facility] ([facility]) [address] [facility] [place] [address] Glucose [Mass/Vol] 71 mg/dL Normal 70-100 [facility] Comment on above: Performed By: #### L [id number] #### [facility] ([facility]) [address] [place] [address] Potassium [Moles/Vol] 3.6 mmol/L Normal 3.5-5.1 [facility] Comment on above: Performed By: #### L [id number] #### [facility] ([facility]) [address] [place] [address] Sodium [Moles/Vol] 138 mmol/L Normal 136-145 [facility] Comment on above: Performed By: #### L [id number] #### [facility] ([facility]) [address] [place] [address] Urea nitrogen [Mass/Vol] 14 mg/dL Normal 7-25 [facility] Comment on above: Performed By: #### L [id number] #### [facility] ([facility]) [address] [place] [address] UREA NITROGEN/CREATININ E (MASS RATIO) IN SER/PLAS 22.6 Normal [facility] Comment on above: Performed By: #### L [id number] #### [facility] ([facility]) [address] [facility] [place] [address] CBC WITH AUTO DIFFERENTIALon 01-05-2025 Basophils (Bld) [#/Vol] 0.03 10*3/uL Normal 0.00-0.20 [facility] Comment on above: Performed By: #### L [id number] #### [facility] [address] [place] [address] Basophils/100 WBC (Bld) 0.4 % Normal 0.0-1.0 [facility] Comment on above: Performed By: #### L [id number] #### [facility] [address] [place] [address] Eosinophils (Bld) [#/Vol] 0.06 10*3/uL Normal 0.00-0.50 [facility] Comment on above: Performed By: #### L [id number] #### [facility] ([facility]) [address] [place] [address] Eosinophils/100 WBC (Bld) 0.8 % Normal 0.0-6.0 [facility] Comment on above: Performed By: #### L [id number] #### [facility] ([facility]) [address] [place] [address] Erythrocyte distribution width (RBC) [Ratio] 13.5 % Normal 11.5-15.0 [facility] Comment on above: Performed By: #### L [id number] #### [facility] ([facility]) [address] [place] [address] ERYTHROCYTE MEAN CORPUSCULAR HEMOGLOBIN CONCENTRATION (G/DL) BY AUTOMATED 31.8 g/dL Low 32.0-35.0 [facility] Comment on above: Performed By: #### L [id number] #### [facility] ([facility]) [address] [place] [address] Hematocrit (Bld) [Volume fraction] 35.8 % Low 36.0-48.0 [facility] Comment on above: Performed By: #### L [id number] #### [facility] ([facility]) [address] [place] [address] Hemoglobin (Bld) [Mass/Vol] 11.4 g/dL Low 12.0-15.0 [facility] Comment on above: Performed By: #### L [id number] #### [facility] ([facility]) [address] [place] [address] Immature granulocytes (Bld) [#/Vol] 0.01 10*3/uL Normal 0.00-0.20 [facility] Comment on above: Performed By: #### L [id number] #### [facility] ([facility]) [address] [place] [address] Immature granulocytes/100 WBC (Bld) 0.1 % Normal 0.0-1.0 [facility] Comment on above: Performed By: #### L [id number] #### [facility] ([facility]) [address] [place] [address] Lymphocytes (Bld) [#/Vol] 1.54 10*3/uL Normal 1.20-4.00 [facility] Comment on above: Performed By: #### L [id number] #### [facility] ([facility]) [address] [place] [address] Lymphocytes/100 WBC (Bld) 19.9 % Low 20.0-45.0 [facility] Comment on above: Performed By: #### L [id number] #### [facility] ([facility]) [address] [place] [address] MCH (RBC) [Entitic mass] 26.6 pg Low 27.0-33.0 [facility] Comment on above: Performed By: #### L [id number] #### [facility] [address] [place] [address] MCV (RBC) [Entitic vol] 83.4 fL Normal 82.0-98.0 [facility] Comment on above: Performed By: #### L [id number] #### [facility] ([facility]) [address] [place] [address] Monocytes (Bld) [#/Vol] 0.66 10*3/uL Normal 0.10-1.00 [facility] Comment on above: Performed By: #### L [id number] #### [facility] ([facility]) [address] [place] [address] Monocytes/100 WBC (Bld) 8.5 % Normal 5.0-12.0 [facility] Comment on above: Performed By: #### L [id number] #### [facility] ([facility]) [address] [place] [address] Neutrophils (Bld) [#/Vol] 5.45 10*3/uL Normal 1.60-7.60 [facility] Comment on above: Performed By: #### L [id number] #### [facility] ([facility]) [address] [place] [address] Neutrophils/100 WBC (Bld) 70.3 % Normal 40.0-72.0 [facility] Comment on above: Performed By: #### L [id number] #### [facility] ([facility]) [address] [place] [address] NRBC (PER 100 WBCS) BY AUTOMATED COUNT 0.0 % Normal 0 [facility] Comment on above: Performed By: #### L [id number] #### [facility] ([facility]) [address] [place] [address] PLATELETS (10*3/UL) IN BLOOD AUTOMATED COUNT 330 10*3/uL Normal 150-400 [facility] Comment on above: Performed By: #### L [id number] #### [facility] ([facility]) [address] [place] [address] RBC (Bld) [#/Vol] 4.29 10*6/uL Normal 3.80-5.00 [facility] Comment on above: Performed By: #### L [id number] #### [facility] ([facility]) [address] [place] [address] WBC (Bld) [#/Vol] 7.75 10*3/uL Normal 4.00-10.60 [facility] Comment on above: Performed By: #### L [id number] #### [facility] ([facility]) [address] [place] [address] CT CHEST WO IV CONTRASTon CT CHEST [...] signed: Keysha Casas. 9 Invalid Interpretation Code [facility] MAGNESIUMon 01-05-2025 Magnesium [Mass/Vol] 1.8 mg/dL Low 1.9-2.7 [facility] Comment on above: Performed By: #### L [id number] #### [facility] ([facility]) [address] [place] [address] NURSNOTEon 01-05-2025 NURSNOTE Per pulmonary clamp chest tube and place to water seal and pt will go to CT to see if any improvement. If better potentially removing chest tube. Normal [facility] 30on 01-04-2025 30 The patient is [...] and behaviors that affect risk of falls [place] fall precautions as indicated by assessment Instruct [...] conditions and prevent exacerbation or deterioration Normal [facility] 30 Daily Case Managemen t Update [...] Score: 24 OT Six Click Score: Normal [facility] 30 The patient is Moder ately [...] and maintained or improved Outcome: Progressing Normal [facility] BASIC METABOLIC PANELon 03-0 Anion gap [Moles/Vol] 14 mmol/L Normal 7-20 [facility] Comment on above: Performed By: #### L [id number] #### [facility] ([facility]) [address] [facility] [place] [address] Calcium [Mass/Vol] 8.9 mg/dL Normal 8.6-10.3 [facility] Comment on above: Performed By: #### L [id number] #### [facility] ([facility]) [address] [place] [address] Chloride [Moles/Vol] 105 mmol/L Normal 98-107 [facility] Comment on above: Performed By: #### L [id number] #### [facility] ([facility]) [address] [place] [address] CO2 [Moles/Vol] 22 mmol/L Normal 21-31 [facility] Comment on above: Performed By: #### L [id number] #### [facility] ([facility]) [address] [place] [address] Creatinine [Mass/Vol] 0.60 mg/dL Normal 0.60-1.20 [facility] Comment on above: Performed By: #### L [id number] #### [facility] ([facility]) [address] [facility] [place] [address] GLOMERULAR FILTRATION RATE ML/MIN/1.73 SQ M.PREDICTED 123.8 mL/min/1.73m*2 Normal >60.0 [facility] Comment on above: Result Comment: The [facility]???s estimated glomerular filtration rate (eGFR) will [...] individuals. Performed By: #### L [id number] #### [facility] ([facility]) [address] [place] [address] Glucose [Mass/Vol] 85 mg/dL Normal 70-100 [facility] Comment on above: Performed By: #### L [id number] #### [facility] ([facility]) [address] [place] [address] Potassium [Moles/Vol] 4.6 mmol/L Normal 3.5-5.1 [facility] Comment on above: Performed By: #### L [id number] #### [facility] ([facility]) [address] [place] [address] Sodium [Moles/Vol] 136 mmol/L Normal 136-145 [facility] Comment on above: Performed By: #### L [id number] #### [facility] ([facility]) [address] [place] [address] Urea nitrogen [Mass/Vol] 14 mg/dL Normal 7-25 [facility] Comment on above: Performed By: #### L [id number] #### [facility] ([facility]) [address] [place] [address] UREA NITROGEN/CREATININ E (MASS RATIO) IN SER/PLAS 23.3 Normal [facility] Comment on above: Performed By: #### L [id number] #### [facility] ([facility]) [address] [place] [address] CBC WITH AUTO DIFFERENTIALon 01-04-2025 Basophils (Bld) [#/Vol] 0.04 10*3/uL Normal 0.00-0.20 [facility] Comment on above: Performed By: #### L [id number] #### [facility] ([facility]) [address] [place] [address] Basophils/100 WBC (Bld) 0.8 % Normal 0.0-1.0 [facility] Comment on above: Performed By: #### L [id number] #### [facility] ([facility]) [address] [place] [address] Eosinophils (Bld) [#/Vol] 0.16 10*3/uL Normal 0.00-0.50 [facility] Comment on above: Performed By: #### L [id number] #### [facility] [address] [place] [address] Eosinophils/100 WBC (Bld) 3.3 % Normal 0.0-6.0 [facility] Comment on above: Performed By: #### L [id number] #### [facility] [address] [place] [address] Erythrocyte distribution width (RBC) [Ratio] 13.2 % Normal 11.5-15.0 [facility] Comment on above: Performed By: #### L [id number] #### [facility] [address] [place] [address] ERYTHROCYTE MEAN CORPUSCULAR HEMOGLOBIN CONCENTRATION (G/DL) BY AUTOMATED 32.0 g/dL Normal 32.0-35.0 [facility] Comment on above: Performed By: #### L [id number] #### [facility] [address] [place] [address] Hematocrit (Bld) [Volume fraction] 37.5 % Normal 36.0-48.0 [facility] Comment on above: Performed By: #### L [id number] #### [facility] ([facility]) [address] [place] [address] Hemoglobin (Bld) [Mass/Vol] 12.0 g/dL Normal 12.0-15.0 [facility] Comment on above: Performed By: #### L [id number] #### [facility] ([facility]) [address] [place] [address] Immature granulocytes (Bld) [#/Vol] 0.01 10*3/uL Normal 0.00-0.20 [facility] Comment on above: Performed By: #### L [id number] #### [facility] ([facility]) [address] [place] [address] Immature granulocytes/100 WBC (Bld) 0.2 % Normal 0.0-1.0 [facility] Comment on above: Performed By: #### L [id number] #### [facility] ([facility]) [address] [place] [address] Lymphocytes (Bld) [#/Vol] 1.50 10*3/uL Normal 1.20-4.00 [facility] Comment on above: Performed By: #### L [id number] #### [facility] ([facility]) [address] [place] [address] Lymphocytes/100 WBC (Bld) 31.1 % Normal 20.0-45.0 [facility] Comment on above: Performed By: #### L [id number] #### [facility] ([facility]) [address] [place] [address] MCH (RBC) [Entitic mass] 27.0 pg Normal 27.0-33.0 [facility] Comment on above: Performed By: #### L [id number] #### [facility] ([facility]) [address] [place] [address] MCV (RBC) [Entitic vol] 84.3 fL Normal 82.0-98.0 [facility] Comment on above: Performed By: #### L [id number] #### [facility] ([facility]) [address] [place] [address] Monocytes (Bld) [#/Vol] 0.55 10*3/uL Normal 0.10-1.00 [facility] Comment on above: Performed By: #### L [id number] #### [facility] ([facility]) [address] [place] [address] Monocytes/100 WBC (Bld) 11.4 % Normal 5.0-12.0 [facility] Comment on above: Performed By: #### L [id number] #### [facility] ([facility]) [address] [place] [address] Neutrophils (Bld) [#/Vol] 2.56 10*3/uL Normal 1.60-7.60 [facility] Comment on above: Performed By: #### L [id number] #### [facility] [facility] ([facility]) [address] [address] Neutrophils/100 WBC (Bld) 53.2 % Normal 40.0-72.0 [facility] Comment on above: Performed By: #### L [id number] #### [facility] ([facility]) [address] [place] [address] NRBC (PER 100 WBCS) BY AUTOMATED COUNT 0.0 % Normal 0 [facility] Comment on above: Performed By: #### L [id number] #### [facility] ([facility]) [address] [address] PLATELETS (10*3/UL) IN BLOOD AUTOMATED COUNT 304 10*3/uL Normal 150-400 [facility] Comment on above: Performed By: #### L [id number] #### [facility] ([facility]) [address] [place] [address] RBC (Bld) [#/Vol] 4.45 10*6/uL Normal 3.80-5.00 [facility] Comment on above: Performed By: #### L [id number] #### [facility] ([facility]) [address] [address] WBC (Bld) [#/Vol] 4.82 10*3/uL Normal 4.00-10.60 [facility] Comment on above: Performed By: #### L [id number] #### [facility]) [address] [place] [address] CONSULTon 01-04-2025 CONSULT ------ -- Attestation signed [...] denies, and alcohol use. Patient presented from [facility] as a direct admission due to spontaneous [...] was discharged home. Yesterday she presented to [facility] again with shortness of breath and chest pain/heaviness. She was found to have spontaneous pneumothorax. Chest tube was placed and she was transferred to [facility] for further management with possible VATS/pleurodesis. [...] Leodan Sc (more content not included)... Normal [facility] MAGNESIUMon 01-04-2025 Magnesium [Mass/Vol] 1.9 mg/dL Normal 1.9-2.7 [facility] Comment on above: Performed By: #### L [id number] #### [facility] ([facility]) [address] [place] [address] NURSNOTEon 01-04-2025 NURSNOTE 1630 - Pulmonology t [...] at this time, once xray is completed junior copywriter to notify MICU to review images for further instruction. 1735 - Patient continues with above symptoms, junior copywriter remains at bedside awaiting radiology to complete chest xray. 173 - Follow up call placed to xray requesting expediting testing. 174 - Xray to bedside. CHIEF MATE RN at bedside per lead RN request. [...] understanding. Vitals remain stable as charted. Normal [facility] 30on 01-02-2025 30 The patient is [...] by Tal Alvares RN Outcome: Progressing Normal [facility] 30 The patient is Moder ately [...] and maintained or improved Outcome: Progressing Normal [facility] TOXICOLOGY PANEL URINEon AMPHETAMINE+METHAM PHETAMINE SCREEN (PRESENCE) IN URINE Negative Normal Negative [facility] Comment on above: Performed By: #### L [id number] #### [facility] ([facility]) [address] [place] [address] BARBITURATES PRESENCE IN URINE BY SCREEN METHOD Negative Normal Negative [facility] Comment on above: Performed By: #### L [id number] #### [facility] ([facility]) [address] [place] [address] Benzodiazepines Ql (U) Negative Normal Negative [facility] Comment on above: Performed By: #### L [id number] #### [facility] ([facility]) [address] [place] [address] CANNABINOID (PRESENCE) IN URINE BY SCREEN METHOD Negative Normal Negative [facility] Comment on above: Performed By: #### L [id number] #### [facility] ([facility]) [address] [place] [address] Cocaine Ql (U) Negative Normal Negative [facility] Comment on above: Performed By: #### L [id number] #### [facility] ([facility]) [address] [place] [address] METHADONE (PRESENCE) IN URINE BY SCREEN METHOD Negative Normal Negative [facility] Comment on above: Performed By: #### L [id number] #### [facility] ([facility]) [address] [place] [address] OPIATES (PRESENCE) IN URINE BY SCREEN METHOD Positive Abnormal Negative [facility] Comment on above: Performed By: #### L [id number] #### [facility] ([facility]) [address] [facility] [place] [place] [address] PHENCYCLIDINE PRESENCE IN URINE BY SCREEN METHOD Negative Normal Negative [facility] Comment on above: Performed By: #### L [id number] #### [facility] ([facility]) [address] [facility] [place] [place] [address] Propoxyphene Screen Ql (U) Negative Normal Negative [facility] Comment on above: Performed By: #### L [id number] #### [facility] ([facility]) [address] [facility] [place] [address] TRICYCLIC ANTIDEPRESSANTS (PRESENCE) IN URINE Negative Normal Negative [facility] Comment on above: Performed By: #### L [id number] #### [facility] ([facility]) [address] [facility] [place] [address] 30on 01-01-2025 30 The patient is Moder ately Stable - Low risk of patient condition declining or worsening The patient's goals for the shift include COMFORT The clinical goals for the shift include VSS Over the shift, the patient did not make progress toward the following goals. Barriers to progression include. Recommendations to address these barriers include. Normal [facility] 30 The patient is Moder ately [...] and maintained or improved Outcome: Progressing Normal [facility] 30 The patient is Moder ately Unstable - Medium risk of patient condition declining or worsening The patient's goals for the shift include COMFORT The clinical goals for the shift include VSS Normal [facility] CBC WITH AUTO DIFFERENTIALon 01-01-2025 Basophils (Bld) [#/Vol] 0.06 10*3/uL Normal 0.00-0.20 [facility] Comment on above: Performed By: #### L [id number] #### [facility] ([facility]) [address] [place] [address] Basophils/100 WBC (Bld) 1.2 % High 0.0-1.0 [facility] Comment on above: Performed By: #### L [id number] #### [facility] ([facility]) [address] [place] [address] Eosinophils (Bld) [#/Vol] 0.14 10*3/uL Normal 0.00-0.50 [facility] Comment on above: Performed By: #### L [id number] #### [facility] ([facility]) [address] [place] [address] Eosinophils/100 WBC (Bld) 2.8 % Normal 0.0-6.0 [facility] Comment on above: Performed By: #### L [id number] #### [facility] ([facility]) [address] [place] [address] Erythrocyte distribution width (RBC) [Ratio] 13.2 % Normal 11.5-15.0 [facility] Comment on above: Performed By: #### L [id number] #### [facility] ([facility]) [address] [place] [address] ERYTHROCYTE MEAN CORPUSCULAR HEMOGLOBIN CONCENTRATION (G/DL) BY AUTOMATED 32.2 g/dL Normal 32.0-35.0 [facility] Comment on above: Performed By: #### L [id number] #### [facility] [address] [place] [address] Hematocrit (Bld) [Volume fraction] 34.5 % Low 36.0-48.0 [facility] Comment on above: Performed By: #### L [id number] #### [facility] ([facility]) [address] [place] [address] Hemoglobin (Bld) [Mass/Vol] 11.1 g/dL Low 12.0-15.0 [facility] Comment on above: Performed By: #### L [id number] #### [facility] [address] [facility] [place] [address] Immature granulocytes (Bld) [#/Vol] 0.02 10*3/uL Normal 0.00-0.20 [facility] Comment on above: Performed By: #### L [id number] #### [facility] ([facility]) [address] [place] [address] Immature granulocytes/100 WBC (Bld) 0.4 % Normal 0.0-1.0 [facility] Comment on above: Performed By: #### L [id number] #### [facility] ([facility]) [address] [place] [address] Lymphocytes (Bld) [#/Vol] 1.37 10*3/uL Normal 1.20-4.00 [facility] Comment on above: Performed By: #### L [id number] #### [facility] ([facility]) [address] [place] [address] Lymphocytes/100 WBC (Bld) 27.0 % Normal 20.0-45.0 [facility] Comment on above: Performed By: #### L [id number] #### [facility] [address] [place] [address] MCH (RBC) [Entitic mass] 26.7 pg Low 27.0-33.0 [facility] Comment on above: Performed By: #### L [id number] #### [facility] [address] [facility] [address] MCV (RBC) [Entitic vol] 83.1 fL Normal 82.0-98.0 [facility] Comment on above: Performed By: #### L [id number] #### [facility] [address] [place] [address] Monocytes (Bld) [#/Vol] 0.72 10*3/uL Normal 0.10-1.00 [facility] Comment on above: Performed By: #### L [id number] #### [facility] [address] [place] [address] Monocytes/100 WBC (Bld) 14.2 % High 5.0-12.0 [facility] Comment on above: Performed By: #### L [id number] #### [facility] ([facility]) [address] [place] [address] Neutrophils (Bld) [#/Vol] 2.77 10*3/uL Normal 1.60-7.60 [facility] Comment on above: Performed By: #### L [id number] #### [facility] ([facility]) [address] [place] [address] Neutrophils/100 WBC (Bld) 54.4 % Normal 40.0-72.0 [facility] Comment on above: Performed By: #### L [id number] #### [facility] ([facility]) [address] [place] [address] NRBC (PER 100 WBCS) BY AUTOMATED COUNT 0.0 % Normal 0 [facility] Comment on above: Performed By: #### L [id number] #### [facility] ([facility]) [address] [place] [address] PLATELETS (10*3/UL) IN BLOOD AUTOMATED COUNT 290 10*3/uL Normal 150-400 [facility] Comment on above: Performed By: #### L [id number] #### [facility] ([facility]) [address] [place] [address] RBC (Bld) [#/Vol] 4.15 10*6/uL Normal 3.80-5.00 [facility] Comment on above: Performed By: #### L [id number] #### [facility] [address] [place] [address] WBC (Bld) [#/Vol] 5.08 10*3/uL Normal 4.00-10.60 [facility] Comment on above: Performed By: #### L [id number] #### [facility] [address] [place] [address] COMPREHENSIVE METABOLIC PANE Shad 01-01-2025 Albumin [Mass/Vol] 4.0 g/dL Normal 3.5-5.7 [facility] Comment on above: Performed By: #### L [id number] #### [facility] ([facility] [address] [place] [address] ALP [Catalytic activity/Vol] 65 U/L Normal 34-104 [facility] Comment on above: Performed By: #### L [id number] #### [facility] ([facility] [address] [place] [address] ALT [Catalytic activity/Vol] 15 U/L Normal 7-52 [facility] Comment on above: Performed By: #### L [id number] #### [facility] ([facility] [address] [place] [address] Anion gap [Moles/Vol] 9 mmol/L Normal 7-20 [facility] Comment on above: Performed By: #### L [id number] #### [facility] ([facility]) [address] [place] [address] AST [Catalytic activity/Vol] 21 U/L Normal 13-39 [facility] Comment on above: Performed By: #### L [id number] #### [facility] [address] [place] [address] Bilirubin [Mass/Vol] 0.5 mg/dL Normal 0.3-1.0 [facility] Comment on above: Performed By: #### L [id number] #### [facility] [address] [place] [address] Calcium [Mass/Vol] 8.8 mg/dL Normal 8.6-10.3 [facility] Comment on above: Performed By: #### L [id number] #### [facility] ([facility]) [address] [place] [address] Chloride [Moles/Vol] 107 mmol/L Normal 98-107 [facility] Comment on above: Performed By: #### L [id number] #### [facility] [address] [place] [address] CO2 [Moles/Vol] 27 mmol/L Normal 21-31 [facility] Comment on above: Performed By: #### L [id number] #### [facility] ([facility]) [address] [place] [address] Creatinine [Mass/Vol] 0.73 mg/dL Normal 0.60-1.20 [facility] Comment on above: Performed By: #### L [id number] #### [facility] ([facility]) [address] [place] [address] GLOMERULAR FILTRATION RATE ML/MIN/1.73 SQ M.PREDICTED 113.4 mL/min/1.73m*2 Normal >60.0 [facility] Comment on above: Result Comment: The [facility]???s estimated glomerular filtration rate (eGFR) will [...] individuals. Performed By: #### L [id number] #### [facility] [address] [place] [address] Glucose [Mass/Vol] 99 mg/dL Normal 70-100 [facility] Comment on above: Performed By: #### L [id number] #### [facility] ([facility] [address] [place] [address] Potassium [Moles/Vol] 4.1 mmol/L Normal 3.5-5.1 [facility] Comment on above: Performed By: #### L [id number] #### [facility] ([facility]) [address] [place] [address] Protein [Mass/Vol] 6.6 g/dL Normal 6.0-8.3 [facility] Comment on above: Performed By: #### L [id number] #### [facility] ([facility]) [address] [place] [address] Sodium [Moles/Vol] 139 mmol/L Normal 136-145 [facility] Comment on above: Performed By: #### L [id number] #### [facility] ([facility]) [address] [place] [address] Urea nitrogen [Mass/Vol] 19 mg/dL Normal 7-25 [facility] Comment on above: Performed By: #### L [id number] #### [facility] ([facility]) [address] [place] [address] UREA NITROGEN/CREATININ E (MASS RATIO) IN SER/PLAS 26.0 Normal [facility] Comment on above: Performed By: #### L [id number] #### [facility]) [address] [place] [address] CONSULTon 01-01-2025 CONSULT Inpatient consult to Cardiothoracic [...] records. She presenting as direct admission to [facility] early this morning, transferred from [facility]. Upon presentation to [facility], she complained of right sided chest pain [...] tube was placed. She was transferred to [facility] for surgical evaluation for possible VATS [...] not hav (more content not included)... Normal [facility] FERRITINon 01-01-2025 FERRITIN (NG/ML) IN SER/PLAS 25.0 ng/mL Normal 11.0-307.0 [facility] Comment on above: Performed By: #### L [id number] #### [facility] ([facility]) [address] [place] [address] FOLATEon 01-01-2025 FOLATE (NG/ML) IN SER/PLAS 17.34 ng/mL Normal 6.6-1000 [facility] Comment on above: Performed By: #### L [id number] #### [facility] ([facility]) [address] [place] [address] IRON AND TIBCon 01-01-2025 IRON (UG/DL) IN SER/PLAS 53 ug/dL Normal 50-212 [facility] Comment on above: Performed By: #### L [id number] #### [facility] ([facility]) [address] [address] IRON BINDING CAPACITY (UG/DL) IN SER/PLAS 378 ug/dL Normal 250-450 [facility] Comment on above: Performed By: #### L [id number] #### [facility] ([facility]) [address] [place] [address] IRON BINDING CAPACITY.UNSATURAT ED (UG/DL) IN SER/PLAS 325.0 ug/dL Normal 155.0-355.0 [facility] Comment on above: Performed By: #### L [id number] #### [facility] [address] [place] [address] IRON SATURATION (%) IN SER/PLAS 14 % Low 20-50 [facility] Comment on above: Performed By: #### L [id number] #### [facility] ([facility]) [address] [place] [address] TSH3 REFLEX TO FT4on 025 THYROTROPIN (MIU/L) IN SER/PLAS BY DETECTION LIMIT <= 0.05 MIU/L 2.68 mIU/L Normal 0.34-5.60 [facility] Comment on above: Performed By: #### L [id number] #### [facility] [address] [facility] [place] [address] VITAMIN B12on 01-01-2025 Cobalamin (Vitamin B12) [Mass/Vol] 299 pg/mL Normal 180-914 [facility] Comment on above: Result Comment: REFE RENCE RANGES: 180-914 pg/mL Normal 145-179 pg/mL Indeterminate <145 pg/mL Deficient Performed By: #### L [id number] #### [facility] ([facility] [address] [facility] [place] [address] HCV RNA,Quant,PCRon 12-11-19 25 HCV RNA,Quant Not detected Normal NOTDET [facility] Comment on above: Result Comment: INTERPRETIVE [...] Performed By: #### U JERRY REBOLLEDO #### [address] [place] [address] Energy Specialist: Adonis Thomas MD CBCon 12-08-2024 Erythrocyte distribution width (RBC) [Ratio] 13.1 % Normal 11.8-14.4 [facility] Comment on above: Performed By: #### W P #### [address] [place] [address] Energy Specialist: Adonis Thomas MD Hematocrit (Bld) [Volume fraction] 33.8 % Low 36.3-47.1 [facility] Comment on above: Performed By: #### W P #### [address] [place] [address] Energy Specialist: Adonis Thomas MD Hemoglobin (Bld) [Mass/Vol] 10.9 g/dL Low 11.9-15.1 [facility] Comment on above: Performed By: #### W P #### [address] [place] [address] Energy Specialist: Adonis Thomas MD MCH (RBC) [Entitic mass] 27.0 pg Normal 25.2-33.5 [facility] Comment on above: Performed By: #### W P #### [address] [place], [place] [id number] Energy Specialist: Adonis Thomas MD MCHC (RBC) [Mass/Vol] 32.2 g/dL Normal 28.4-34.8 [facility] Comment on above: Performed By: #### W P #### [address] [place] [id number] Energy Specialist: Adonis Thomas MD MCV (RBC) [Entitic vol] 83.9 fL Normal 82.6-102.9 [facility] Comment on above: Performed By: #### W P #### [address] [place] [id number] Energy Specialist: Adonis Thomas MD Platelet mean volume (Bld) [Entitic vol] 9.8 fL Normal 8.1-13.5 [facility] Comment on above: Performed By: #### W P #### [address] [place], [place] [id number] Energy Specialist: Adonis Thomas MD Platelets (Bld) [#/Vol] 332 10*3/uL Normal 138-453 [facility] Comment on above: Performed By: #### W P #### [address] [place], [facility] Energy Specialist: Adonis Thomas MD RBC (Bld) [#/Vol] 4.03 10*6/uL Normal 3.95-5.11 [facility] Comment on above: Performed By: #### W P #### [address] [place] [address] Energy Specialist: Adonis Thomas MD Interpretation and review of laboratory results Abnormal [facility] Nucleated RBC/100 WBC (Bld) [Ratio] 0.0 % 0.0 per 100 WBC [facility] WBC other (Bld) [#/Vol] 4.8 [facility] NRBC Automated 0.0 per 100 WBC Normal 0.0 [facility] Comment on above: Performed By: #### W P #### [facility] [address] [place], [place] [id number] Energy Specialist: Adonis Thomas MD WBC (Bld) [#/Vol] 4.8 10*3/uL Normal 3.5-11.3 [facility] Comment on above: Performed By: #### W P #### [facility] [address] [place] [address] Energy Specialist: Adonis Thomas MD Comp Metabolic Profon 2024 Albumin [Mass/Vol] 4.0 g/dL Normal 3.5-5.2 [facility] Comment on above: Performed By: #### W P #### [facility] [address] [place], [place] [id number] Energy Specialist: Adonis Thomas MD Albumin/Glob Ratio 1.6 Normal 1.0-2.5 [facility] Comment on above: Performed By: #### W P #### [facility] [address] [place], [place] [id number] Energy Specialist: Adonis Thomas MD Alkaline Phos 65 U/L Normal 35-104 [facility] Comment on above: Performed By: #### W P #### [facility] [address] [place], [place] [id number] Energy Specialist: Adonis Thomas MD ALT [Catalytic activity/Vol] 28 U/L Normal 10-35 [facility] Comment on above: Performed By: #### W P #### [facility] [address] [place] [address] Energy Specialist: Adonis Thomas MD Anion gap [Moles/Vol] 10 mmol/L Normal 9-16 [facility] Comment on above: Performed By: #### W P #### [facility] [address] [place], [place] [id number] Energy Specialist: Adonis Thomas MD AST [Catalytic activity/Vol] 27 U/L Normal 10-35 [facility] Comment on above: Performed By: #### W P #### [facility] [address] [place] [address] Energy Specialist: Adonis Thomas MD Bilirubin [Mass/Vol] mg/dL Normal 0.00-1.20 [facility] Comment on above: Performed By: #### W P #### [facility] [address] [place] [address] Energy Specialist: Adonis Thomas MD BUN/CRE Ratio 28 High 9-20 [facility] Comment on above: Performed By: #### W P #### [facility] [address] [place] [address] Energy Specialist: Adonis Thomas MD Calcium [Mass/Vol] 9.0 mg/dL Normal 8.6-10.4 [facility] Comment on above: Performed By: #### W P #### [facility] [address] [place] [address] Energy Specialist: Adonis Thomas MD Chloride [Moles/Vol] 102 mmol/L Normal 98-107 [facility] Comment on above: Performed By: #### W P #### [facility] [address] [place] [address] Energy Specialist: Adonis Thomas MD CO2 [Moles/Vol] 28 mmol/L Normal 20-31 [facility] Comment on above: Performed By: #### W P #### [facility] [address] [place] [address] Energy Specialist: Adonis Thomas MD Creatinine [Mass/Vol] 0.6 mg/dL Normal 0.50-0.90 [facility] Comment on above: Performed By: #### W P #### [facility] [address] [place], [place] [id number] Energy Specialist: Adonis Thomas MD GFR/1.73 sq M.predicted among non-blacks MDRD (S/P/Bld) [Vol rate/Area] mL/min/{1.73_m2} Normal >60 [facility] Comment on above: Result Comment: These results [...] secretion. Performed By: #### W P #### [facility] [address] [place] [address] [place], [place] [id number] Energy Specialist: Adonis Thomas MD Glucose [Mass/Vol] 105 mg/dL High 74-99 [facility] Comment on above: Performed By: #### W P #### [address] [place], [place] [id number] Energy Specialist: Adonis Thomas MD Potassium [Moles/Vol] 4.1 mmol/L Normal 3.7-5.3 [facility] Comment on above: Performed By: #### W P #### [facility] [address] [place], [place] [id number] Energy Specialist: Adonis Thomas MD Protein [Mass/Vol] 6.5 g/dL Low 6.6-8.7 [facility] Comment on above: Performed By: #### W P #### [facility] [address] [place] [address] Energy Specialist: Adonis Thomas MD Sodium [Moles/Vol] 140 mmol/L Normal 136-145 [facility] Comment on above: Performed By: #### W P #### [facility] [address] [place] [address] Energy Specialist: Adonis Thomas MD Urea nitrogen [Mass/Vol] 17 mg/dL Normal 6-20 [facility] Comment on above: Performed By: #### W P #### [facility] [address] [place] [address] Energy Specialist: Adonis Thomas MD Comprehensive Metabolic Pane [facility] 12-08-2024 Albumin [Mass/Vol] 4.0 g/dL 3.5 - 5.2 g/dL [facility] Albumin/Globulin [Mass ratio] 1.6 {ratio} 1.0 - 2.5 [facility] ALP [Catalytic activity/Vol] 65 U/L 35 - 104 U/L [facility] ALT [Catalytic activity/Vol] 28 U/L 10 - 35 U/L [facility] Anion gap [Moles/Vol] 10 mmol/L 9 - 16 mmol/L [facility] AST [Catalytic activity/Vol] 27 U/L 10 - 35 U/L [facility] Bilirubin [Mass/Vol] mg/dL 0.00 - 1.20 mg/dL [facility] Calcium [Mass/Vol] 9.0 mg/dL 8.6 - 10. 4 mg/dL [facility] Chloride [Moles/Vol] 102 mmol/L 98 - 107 mmol/L [facility] CO2 [Moles/Vol] 28 mmol/L 20 - 31 mmol/L [facility] Creatinine [Mass/Vol] 0.6 mg/dL 0.50 - 0.90 mg/dL [facility] Est, Glom Filt Rate - PINF [facility] Comment on above: These results are [...] 105 mg/dL High 74 - 99 mg/dL [facility] Interpretation and review of laboratory results Abnormal [facility] Potassium [Moles/Vol] 4.1 mmol/L 3.7 - 5.3 mmol/L [facility] Protein [Mass/Vol] 6.5 g/dL Low 6.6 - 8.7 g/dL [facility] Sodium [Moles/Vol] 140 mmol/L 136 - 145 mmol/L [facility] Urea nitrogen [Mass/Vol] 17 mg/dL 6 - 20 mg/dL [facility] Urea nitrogen/Creatinin e [Mass ratio] 28 mg/mg High 9 - 20 [facility] HCG Qualitative, Serumon HCG ( test) Ql Negative NEGATIVE [facility] Comment on above: Specimens with hCG l evels near the threshold of the test (25 mIU/mL) may give a negative or indeterminate result. In such cases, another test should be performed with a new specimen in 48-72 hours. If early is suspected clinically in this setting, correlation with quantitative serum b-hCG level is suggested. [facility] has confirmed the use of plasma for this test. This has not been cleared or approved by the U.S. Food and Drug Administration. The FDA has determined that such clearance is not necessary. [facility] HCG Screen, Bloodon 12-08-19 25 HCG Screen, Blood Negative Normal NEG [facility] Comment on above: Result Comment: Spec imens with hCG levels near the threshold of the test (25 mIU/mL) may give a negative or indeterminate result. In such cases, another test should be performed with a new specimen in 48-72 hours. If early is suspected clinically in this setting, correlation with quantitative serum b-hCG level is suggested. [facility] has confirmed the use of plasma for this test. This has not been cleared or approved by the U.S. Food and Drug Administration. The FDA has determined that such clearance is not necessary. Performed By: #### W P #### [facility] [address] [place] [address] [place], [place] [id number] Energy Specialist: Adonis Thomas MD HCV RNA,Quant,PCRon 12-08-19 25 Source .PLASMA Normal [facility] Comment on above: Performed By: #### U KESHA, UAX #### [facility] [address] [place] [address] [place] [address] Energy Specialist: Adonis Thomas MD HIV Ag/Abon 12-08-2024 HIV Ag/Ab Non-Reactive Normal NR [facility] Comment on above: Result Comment: No l aboratory evidence of HIV infection. If acute HIV infection is suspected, consider testing for HIV-1 RNA. Performed By: #### W P #### [address] [place], [place] [phone] Energy Specialist: Adonis Thomas MD HIV Screenon 12-08-2024 HIV 1+2 Ab+HIV1 p24 Ag IA Ql Non-Reactive NONREACTIVE [facility] Comment on above: No laboratory eviden ce of HIV infection. If acute HIV infection is suspected, consider testing for HIV-1 RNA. [facility] Hep B Surf Abon 12-08-2024 Hep B Surf Ab <3.50 Normal <10 [facility] Comment on above: Result Comment: REFERENCE RANGE: <10.0 NON-REACTIVE/NOT IMMUNE >=10.0 REACTIVE/IMMUNE Performed By: #### W P #### [address] [place] [address] Energy Specialist: Adonis Thomas MD Hepatitis Acute [facility] 12-08 Hep A Ab,IgM Non-Reactive Normal NR [facility] Comment on above: Performed By: #### W P #### [address] [place], [place] [phone] Energy Specialist: Adonis Thomas MD Hep B Core Ab,IgM Non-Reactive Normal NR [facility] Comment on above: Performed By: #### W P #### [facility] [address] [place] [address] [place] [address] Energy Specialist: Adonis Thomas MD Hep B Surf Ag Non-Reactive Normal [facility] Comment on above: Performed By: #### W P #### [address] [place] [address] Energy Specialist: Adonis Thomas MD Hep C Ab Non-Reactive Normal [facility] Comment on above: [...] PCR. Performed By: #### W P #### [address] [place], [place] [phone] Energy Specialist: Adonis Thomas MD Hepatitis B Surface Antibody on 12-08-2024 HBV surface Ab IA Qn [facility]IU[facility] Comment on above: REFERENCE RANGE: <10.0 NON-REACTIVE/NOT IMMUNE >=10.0 REACTIVE/IMMUNE Hepatitis Panel, Acuteon HAV IgM IA Ql Non-Reactive NONREACTIVE [facility] HBV core IgM IA Ql Non-Reactive NONREACTIVE [facility] HBV surface Ag IA Ql Non-Reactive NONREACTIVE [facility] HCV Ab IA Ql Non-Reactive NONREACTIVE [facility] Comment on above: The hepatitis C [...] RNA by PCR. No Panel Informationon 12-08 [facility] T. pallidum Abon 12-08-2024 T. pallidum Ab IA Ql (S) Non-Reactive NONREACTIVE [facility] Comment on above: T. pallidum antibodies are not detected. There is no serological evidence of infection with T. pallidum (early primary syphilis cannot be excluded). Retest in 2-4 weeks if syphilis is clinically suspect. [facility] T.pallidum Ab Screenon 12-08 T.pallidum Ab Screen Non-Reactive Normal NR [facility] Comment on above: Result Comment: T. pallidum antibodies are not detected. There is no serological evidence of infection with T. pallidum (early primary syphilis cannot be excluded). Retest in 2-4 weeks if syphilis is clinically suspect. Performed By: #### U MICAO, UAX #### [facility] [address] [place] [address] Energy Specialist: Adonis Thomas MD Chlamydia/GC,DNA Ampon 12-07 Chlamydia Probe Negative Normal NEG [facility] Comment on above: Result Comment: CHLA [...] target. Performed By: #### S WCGP #### [facility] [address] [place] [phone] Energy Specialist: Perry Marte MD Gonorrhea Probe Negative Normal NEG [facility] Comment on above: Result Comment: NEIS [...] target. Performed By: #### S WCGP #### [facility] [place], [place] [phone] Energy Specialist: Perry Marte MD Trichomonas/Wet Prepon 12-04 Trichomonas/Wet Prep Specimen Description .VAGINAL SPECIMEN Direct Exam YEAST PRESENT CLUE CELLS SEEN NO TRICHOMONAS SEEN Report Status FINAL 12/04/2024 Normal [facility] Comment on above: Performed By: #### W P #### [facility] [address] [place], [place] [phone] Energy Specialist: Adonis Thomas MD Wet prep, genitalon 12-04-19 25 Microorganism or agent identified Nom (Unsp spec) YEAST PRESENT [facility] Microorganism or agent identified Nom (Unsp spec) CLUE CELLS SEEN [facility] Microorganism or agent identified Nom (Unsp spec) NO TRICHOMONAS SEEN [facility] Specimen Description .VAGINAL SPECIMEN [facility] CBCon 10-14-2024 Erythrocyte distribution width (RBC) [Ratio] 13.8 % Normal 11.8-14.4 [facility] Comment on above: Performed By: #### S WCGP #### [address] [address] Energy Specialist: Perry Marte MD Hematocrit (Bld) [Volume fraction] 36.1 % Low 36.3-47.1 [facility] Comment on above: Performed By: #### S WCGP #### [address] [address] Energy Specialist: Perry Marte MD Hemoglobin (Bld) [Mass/Vol] 11.6 g/dL Low 11.9-15.1 [facility] Comment on above: Performed By: #### S WCGP #### [facility] [address] [place] [address] Energy Specialist: Perry Marte MD MCH (RBC) [Entitic mass] 28.0 pg Normal 25.2-33.5 [facility] Comment on above: Performed By: #### S WCGP #### [address] [address] Energy Specialist: Perry Marte MD MCHC (RBC) [Mass/Vol] 32.1 g/dL Normal 28.4-34.8 [facility] Comment on above: Performed By: #### S WCGP #### [address] [address] Energy Specialist: Perry Marte MD MCV (RBC) [Entitic vol] 87.0 fL Normal 82.6-102.9 [facility] Comment on above: Performed By: #### S WCGP #### [address] [address] Energy Specialist: Perry Marte MD NRBC Automated 0.0 per 100 WBC Normal 0.0 [facility] Comment on above: Performed By: #### S WCGP #### [address] [address] Energy Specialist: Perry Marte MD Platelet mean volume (Bld) [Entitic vol] 9.9 fL Normal 8.1-13.5 [facility] Comment on above: Performed By: #### S WCGP #### [address] [address] Energy Specialist: Perry Marte MD Platelets (Bld) [#/Vol] 312 10*3/uL Normal 138-453 [facility] Comment on above: Performed By: #### S WCGP #### [address] [address] Energy Specialist: Perry Marte MD RBC (Bld) [#/Vol] 4.15 10*6/uL Normal 3.95-5.11 [facility] Comment on above: Performed By: #### S WCGP #### [address] [address] Energy Specialist: Perry Marte MD WBC (Bld) [#/Vol] 6.3 10*3/uL Normal 3.5-11.3 [facility] Comment on above: Performed By: #### S WCGP #### [address] [place] [address] Energy Specialist: Perry Marte MD Comp Metabolic Profon 2023 Albumin [Mass/Vol] 4.5 g/dL Normal 3.5-5.2 [facility] Comment on above: Performed By: #### S WCGP #### [address] [address] Energy Specialist: Perry Marte MD Albumin/Glob Ratio 1.7 Normal 1.0-2.5 [facility] Comment on above: Performed By: #### S WCGP #### [address] [address] Energy Specialist: Perry Marte MD Alkaline Phos 86 U/L Normal 35-104 [facility] Comment on above: Performed By: #### S WCGP #### [address] [address] Energy Specialist: Perry Marte MD ALT [Catalytic activity/Vol] 19 U/L Normal 10-35 [facility] Comment on above: Performed By: #### S WCGP #### [address] [address] Energy Specialist: Perry Marte MD Anion gap [Moles/Vol] 11 mmol/L Normal 9-16 [facility] Comment on above: Performed By: #### S WCGP #### [facility] [address] [place] [address] Energy Specialist: Perry Marte MD AST [Catalytic activity/Vol] 19 U/L Normal 10-35 [facility] Comment on above: Performed By: #### S WCGP #### [facility] [address] [place] [address] Energy Specialist: Perry Marte MD Bilirubin [Mass/Vol] mg/dL Normal 0.00-1.20 [facility] Comment on above: Performed By: #### S WCGP #### [facility] [place] [address] Energy Specialist: Perry Marte MD BUN/CRE Ratio 23 High 9-20 [facility] Comment on above: Performed By: #### S WCGP #### [address] [place] [address] Energy Specialist: Perry Marte MD Calcium [Mass/Vol] 9.4 mg/dL Normal 8.6-10.4 [facility] Comment on above: Performed By: #### S WCGP #### [address] [address] Energy Specialist: Perry Marte MD Chloride [Moles/Vol] 101 mmol/L Normal 98-107 [facility] Comment on above: Performed By: #### S WCGP #### [address] [address] Energy Specialist: Perry Marte MD CO2 [Moles/Vol] 26 mmol/L Normal 20-31 [facility] Comment on above: Performed By: #### S WCGP #### [address] [address] Energy Specialist: Perry Marte MD Creatinine [Mass/Vol] 0.7 mg/dL Normal 0.50-0.90 [facility] Comment on above: Performed By: #### S WCGP #### [address] [address] Energy Specialist: Perry Marte MD GFR/1.73 sq M.predicted among non-blacks MDRD (S/P/Bld) [Vol rate/Area] mL/min/{1.73_m2} Normal >60 [facility] Comment on above: Result Comment: These results [...] secretion. Performed By: #### S WCGP #### [address] [address] Energy Specialist: Perry Marte MD Glucose [Mass/Vol] 94 mg/dL Normal 74-99 [facility] Comment on above: Performed By: #### S WCGP #### [address] [address] Energy Specialist: Perry Marte MD Potassium [Moles/Vol] 4.0 mmol/L Normal 3.7-5.3 [facility] Comment on above: Performed By: #### S WCGP #### [address] [address] Energy Specialist: Perry Marte MD Protein [Mass/Vol] 7.1 g/dL Normal 6.6-8.7 [facility] Comment on above: Performed By: #### S WCGP #### [address] [address] Energy Specialist: Perry Marte MD Sodium [Moles/Vol] 138 mmol/L Normal 136-145 [facility] Comment on above: Performed By: #### S WCGP #### [address] [address] Energy Specialist: Perry Marte MD Urea nitrogen [Mass/Vol] 16 mg/dL Normal 6-20 [facility] Comment on above: Performed By: #### S WCGP #### [address] [address] Energy Specialist: Perry Marte MD HCG Screen, Bloodon 10-14-20 24 HCG Screen, Blood Negative Normal NEG [facility] Comment on above: Result Comment: Spec imens with hCG levels near the threshold of the test (25 mIU/mL) may give a negative or indeterminate result. In such cases, another test should be performed with a new specimen in 48-72 hours. If early is suspected clinically in this setting, correlation with quantitative serum b-hCG level is suggested. [facility] has confirmed the use of plasma for this test. This has not been cleared or approved by the U.S. Food and Drug Administration. The FDA has determined that such clearance is not necessary. Performed By: #### S WCGP #### [address] [address] Energy Specialist: Perry Marte MD HIV Ag/Abon 10-14-2024 HIV Ag/Ab Non-Reactive Normal [facility] Comment on above: Result Comment: No l aboratory evidence of HIV infection. If acute HIV infection is suspected, consider testing for HIV-1 RNA. Performed By: #### S WCGP #### [address] [address] Energy Specialist: Perry Marte MD Hep B Surf Abo 10-14-2024 Hep B Surf Ab <3.50 Normal <10 [facility] Comment on above: Result Comment: REFERENCE RANGE: <10.0 NON-REACTIVE/NOT IMMUNE >=10.0 REACTIVE/IMMUNE Performed By: #### S WCGP #### [address] [address] Energy Specialist: Perry Marte MD Hepatitis Acute [facility] 10-14 Hep A Ab,IgM Non-Reactive Normal [facility] Comment on above: Performed By: #### S WCGP #### [facility] [address] [place] [address] Energy Specialist: Perry Marte MD Hep B Core Ab,IgM Non-Reactive Normal [facility] Comment on above: Performed By: #### S WCGP #### [facility] [address] [address] Energy Specialist: Perry Marte MD Hep B Surf Ag Non-Reactive Normal [facility] Comment on above: Performed By: #### S WCGP #### [facility] [place], [place] [phone] Energy Specialist: Perry Marte MD Hep C Ab Non-Reactive Normal [facility] Comment on above: [...] PCR. Performed By: #### S WCGP #### [address] [phone] Energy Specialist: Perry Marte MD T.pallidum Ab Screenon 10-14 T.pallidum Ab Screen Non-Reactive Normal [facility] Comment on above: Result Comment: T. pallidum antibodies are not detected. There is no serological evidence of infection with T. pallidum (early primary syphilis cannot be excluded). Retest in 2-4 weeks if syphilis is clinically suspect. Performed By: #### S WCGP #### [address] [phone] Energy Specialist: Perry Marte MD Chlamydia/GC,DNA Ampon 09-29 Chlamydia Pro[address] Negative Normal [facility] Comment on above: Result Comment: CHLA [...] target. Performed By: #### S WCGP #### [facility] [address] [place] [phone] Energy Specialist: Perry Marte MD Gonorrhea Probe Negative Normal [facility] Comment on above: Result Comment: NEIS [...] target. Performed By: #### S WCGP #### [facility] [address] [place], [place] [phone] Energy Specialist: Perry Marte MD Trichomonas/Wet Prepon 09-28 Trichomonas/Wet Prep Specimen Description .VAGINAL SPECIMEN Direct Exam FEW CLUE CELLS SEEN NO TRICHOMONAS SEEN NO YEAST OBSERVED Report Status FINAL 09/28/2024 Abnormal [facility] Comment on above: Performed By: #### W P #### [facility] [address] [place] [address] Energy Specialist: Adonis Thomas MD Wet prep, genitalon 09-28-20 24 Interpretation and review of laboratory results Abnormal [facility] Microorganism or agent identified Nom (Unsp spec) FEW CLUE CELLS SEEN Abnormal [facility] Microorganism or agent identified Nom (Unsp spec) NO TRICHOMONAS SEEN [facility] Microorganism or agent identified Nom (Unsp spec) NO YEAST OBSERVED [facility] Specimen Description .VAGINAL SPECIMEN [facility] Trichomonas/Wet Prepon 05-26 Trichomonas/Wet Prep Specimen Description .VAGINAL SPECIMEN Direct Exam NO YEAST OBSERVED NO TRICHOMONAS SEEN NO CLUE CELLS SEEN Report Status FINAL 05/26/2024 Normal [facility] Comment on above: Performed By: #### S WCGP #### [facility] [address] [place], [place] [phone] Energy Specialist: Perry Marte MD Wet prep, genitalon 05-26-20 24 Microorganism or agent identified Nom (Unsp spec) NO YEAST OBSERVED [facility] Microorganism or agent identified Nom (Unsp spec) NO TRICHOMONAS SEEN [facility] Microorganism or agent identified Nom (Unsp spec) NO CLUE CELLS SEEN [facility] Specimen Description .VAGINAL SPECIMEN [facility] Chlamydia/GC,DNA Ampon 05-11 Chlamydia Probe Negative Normal NEG [facility] Comment on above: Result Comment: CHLA [...] target. Performed By: #### W P #### [facility] [address] [place] [address] Energy Specialist: Adonis Thomas MD Gonorrhea Probe Negative Normal [facility] Comment on above: Result Comment: NEIS [...] target. Performed By: #### W P #### [facility] [address] [place] [address] Energy Specialist: Adonis Thomas MD Trichomonas/Wet Prepon 05-08 Trichomonas/Wet Prep Specimen Description .VAGINAL SPECIMEN Direct Exam MODERATE CLUE CELLS SEEN NO TRICHOMONAS SEEN NO YEAST OBSERVED Report Status FINAL 05/08/2024 Abnormal [facility] Comment on above: Performed By: #### W P #### [facility] [address] [place] [address] Energy Specialist: Adonis Thomas MD UA w/Reflex Cultureon 2023 Bilirubin, SemiQt,Ur Negative Normal NEG [facility] Comment on above: Performed By: #### S WCGP #### [address] [phone] Energy Specialist: Perry Marte MD Blood, Urine TRACE Abnormal NEG [facility] Comment on above: Performed By: #### S WCGP #### [address] [address] Energy Specialist: Perry Marte MD Clarity (U) Clear Normal CLEAR [facility] Comment on above: Performed By: #### S WCGP #### [address] [address] Energy Specialist: Perry Marte MD Color (U) Yellow Normal YEL [facility] Comment on above: Performed By: #### S WCGP #### [address] [address] Energy Specialist: Perry Marte MD Glucose Ql (U) Negative Normal NEG [facility] Comment on above: Performed By: #### S WCGP #### [address] [address] Energy Specialist: Perry Maret MD Ketones Ql (U) Negative Normal NEG [facility] Comment on above: Performed By: #### S WCGP #### [address] [address] Energy Specialist: Perry Marte MD Leukocyte esterase Test strip Ql (U) Negative Normal NEG [facility] Comment on above: Performed By: #### S WCGP #### [address] [address] Energy Specialist: Perry Marte MD Nitrite,Ur Negative Normal NEG [facility] Comment on above: Performed By: #### S WCGP #### [address] [address] Energy Specialist: Perry Marte MD PH,Ur 6.0 Normal 5.0-9.0 [facility] Comment on above: Performed By: #### S WCGP #### [address] [place] [address] Energy Specialist: Perry Marte MD Protein Ql (U) Negative Normal NEG [facility] Comment on above: Performed By: #### S WCGP #### [facility] [address] [place] [address] Energy Specialist: Perry Marte MD Spec. [place],Ur >1.030 High 1.010-1.020 [facility] Comment on above: Performed By: #### S WCGP #### [facility] [address] [place] [address] Energy Specialist: Perry Marte MD Urobilinogen,Ur Normal Normal 0.0-1.0 [facility] Comment on above: Performed By: #### S WCGP #### [address] [address] Energy Specialist: Perry Marte MD Urinalysis,Microon 4 Bacteria 1+ Abnormal NONE [facility] Comment on above: Performed By: #### W P #### [facility] [address] [place] [address] [place] [address] Energy Specialist: Adonis Thomas MD Epithelial cells LM Ql (Urine sed) 5 TO 10 Normal 0-25 [facility] Comment on above: Performed By: #### W P #### [facility] [address] [place] [address] [place] [address] Energy Specialist: Adonis Thomas MD Urine RBC's 0 TO 2 Normal 0-2 [facility] Comment on above: Performed By: #### W P #### [facility] [address] [place] [address] Energy Specialist: Adonis Thomas MD Urine WBC's 0 TO 2 Normal 0-5 [facility] Comment on above: Performed By: #### W P #### [facility] [address] [place] [address] Energy Specialist: Adonis Thomas MD CBC with Diffon 05-04-2024 Abs. Basophil 0.06 k/uL Normal 0.00-0.20 [facility] Comment on above: Performed By: #### H CG, CDP, CP #### [facility] [address] [place] [address] [place] [address] Energy Specialist: Adonis Thomas MD #### TREP, HIVCMB, PHEP #### [place] [address] Energy Specialist: Perry Marte MD Abs.Imm.Granulocyt e <0.03 Normal 0.00-0.30 [facility] Comment on above: Performed By: #### H CG, CDP, CP #### [address] [place] [phone] ( Energy Specialist: Adonis Thomas MD #### TREP, HIVCMB, PHEP #### [place] [address] Energy Specialist: Perry Marte MD Abs.Neutrophil (Seg) 3.64 k/uL Normal 1.50-8.10 [facility] Comment on above: Performed By: #### H CG, CDP, CP #### [address] [place] [address] Energy Specialist: Adonis Thomas MD #### TREP, HIVCMB, PHEP #### [place] [address] Energy Specialist: Perry Marte MD Basophils/100 WBC (Bld) 1 % Normal 0-2 [facility] Comment on above: Performed By: #### H CG, CDP, CP #### [facility] [address] [place] [address] Dr[address] [place] [phone] ( Energy Specialist: Adonis Thomas MD #### TREP, HIVCMB, PHEP #### [address] [place], [place] [phone] Energy Specialist: Perry Marte MD Eosinophils (Bld) [#/Vol] 0.11 10*3/uL Normal 0.00-0.44 [facility] Comment on above: Performed By: #### H CG, CDP, CP #### [facility] [address] [place] [address] Dr. [place] [phone] Energy Specialist: Adonis Thomas MD #### TREP, HIVCMB, PHEP #### [address] [phone] Energy Specialist: Perry Marte MD Eosinophils/100 WBC (Bld) 2 % Normal 1-4 [facility] Comment on above: Performed By: #### H CG, CDP, CP #### [address] [place] [address] Energy Specialist: Adonis Thomas MD #### TREP, HIVCMB, PHEP #### [place] [phone] Energy Specialist: Perry Marte MD Erythrocyte distribution width (RBC) [Ratio] 12.9 % Normal 11.8-14.4 [facility] Comment on above: Performed By: #### H CG, CDP, CP #### [address] [place] [phone] Energy Specialist: Adonis Thomas MD #### TREP, HIVCMB, PHEP #### [address] [phone] Energy Specialist: Perry Marte MD Hematocrit (Bld) [Volume fraction] 34.4 % Low 36.3-47.1 [facility] Comment on above: Performed By: #### H CG, CDP, CP #### [address] [place] [phone] Energy Specialist: Adonis Thomas MD #### TREP, HIVCMB, PHEP #### [address] [phone] Energy Specialist: Perry Marte MD Hemoglobin (Bld) [Mass/Vol] 11.4 g/dL Low 11.9-15.1 [facility] Comment on above: Performed By: #### H KASHIF CDP, CP #### [facility] [address] [place] [address] [place] [phone] Energy Specialist: Adonis Thomas MD #### TREP, HIVCMB, PHEP #### [place] [address] Energy Specialist: Perry Marte MD Immature granulocytes/100 WBC (Bld) 0 % Normal 0 [facility] Comment on above: Performed By: #### H JOSÉ ROWLAND, CP #### [address] [place] [phone] Energy Specialist: Adonis Thomas MD #### TREP, HIVCMB, PHEP #### [place] [phone] Energy Specialist: Perry Marte MD Lymphocytes (Bld) [#/Vol] 1.91 10*3/uL Normal 1.10-3.70 [facility] Comment on above: Performed By: #### H KASHIF CDP, CP #### [address] [place] [phone] Energy Specialist: Adonis Thomas MD #### TREP, HIVCMB, PHEP #### [place] [phone] Energy Specialist: Perry Marte MD Lymphocytes/100 WBC (Bld) 30 % Normal 24-43 [facility] Comment on above: Performed By: #### H JOSÉ ROWLAND, CP #### [facility] [address] [place] [address] Dr. [place] [phone] Energy Specialist: Adonis Thomas MD #### TREP, HIVCMB, PHEP #### [place] 584171 [place], [place] [phone] Energy Specialist: Perry Marte MD MCH (RBC) [Entitic mass] 29.4 pg Normal 25.2-33.5 [facility] Comment on above: Performed By: #### H CG, CDP, CP #### [address] [place] [phone] Energy Specialist: Adonis Thomas MD #### TREP, HIVCMB, PHEP #### [place] [phone] Energy Specialist: Perry Marte MD MCHC (RBC) [Mass/Vol] 33.1 g/dL Normal 28.4-34.8 [facility] Comment on above: Performed By: #### H CG, CDP, CP #### [address] [place] [phone] Energy Specialist: Adonis Thomas MD #### ARMANDO, HIVCMB, PHEP #### [address] [phone] Energy Specialist: Perry Marte MD MCV (RBC) [Entitic vol] 88.7 fL Normal 82.6-102.9 [facility] Comment on above: Performed By: #### H CG, CDP, CP #### [address] [place] [phone] Energy Specialist: Adonis Thomas MD #### TREP, HIVCMB, PHEP #### [place] 584173 [place], [place] 1909408 Energy Specialist: Perry Marte MD Monocytes (Bld) [#/Vol] 0.55 10*3/uL Normal 0.10-1.20 [facility] Comment on above: Performed By: #### H CG, CDP, CP #### [facility] [address] [place], [place] [phone] Energy Specialist: Adonis Thomas MD #### TREP, HIVCMB, PHEP #### [address] [phone] Energy Specialist: Perry Marte MD Monocytes/100 WBC (Bld) 9 % Normal 3-12 [facility] Comment on above: Performed By: #### H CG, CDP, CP #### [facility] [address] [place], [place] [phone] Energy Specialist: Adonis Thomas MD #### TREP, HIVCMB, PHEP #### [address] [phone] Energy Specialist: Perry Marte MD Neutrophil (Seg) 58 % Normal 36-65 [facility] Comment on above: Performed By: #### H CG, CDP, CP #### [facility] [address] [place], [place] [phone] Energy Specialist: Adonis Thomas MD #### TREP, HIVCMB, PHEP #### [address] [phone] Energy Specialist: Perry Marte MD NRBC Automated 0.0 per 100 WBC Normal 0.0 [facility] Comment on above: Performed By: #### H CG, CDP, CP #### [facility] [address] [place], [place] [phone] Energy Specialist: Adonis Thomas MD #### TREP, HIVCMB, PHEP #### [address] [phone] Energy Specialist: Perry Marte MD Platelet mean volume (Bld) [Entitic vol] 9.6 fL Normal 8.1-13.5 [facility] Comment on above: Performed By: #### H CG, CDP, CP #### [facility] [address] [place] [address] [place] [address] Energy Specialist: Adonis Thomas MD #### TREP, HIVCMB, PHEP #### [address] [phone] Energy Specialist: Perry Marte MD Platelets (Bld) [#/Vol] 333 10*3/uL Normal 138-453 [facility] Comment on above: Performed By: #### H CG, CDP, CP #### [facility] [address] [place] [address] [place] [address] Energy Specialist: Adonis Thomas MD #### TREP, HIVCMB, PHEP #### [address] [phone] Energy Specialist: Perry Marte MD RBC (Bld) [#/Vol] 3.88 10*6/uL Low 3.95-5.11 [facility] Comment on above: Performed By: #### H CG, CDP, CP #### [facility] [address] [place] [address] [place] [address] Energy Specialist: Adonis Thomas MD #### TREP, HIVCMB, PHEP #### [address] [address] Energy Specialist: Perry Marte MD WBC (Bld) [#/Vol] 6.3 10*3/uL Normal 3.5-11.3 [facility] Comment on above: Performed By: #### H CG, CDP, CP #### [facility] [address] [place] [address] [place] [address] Energy Specialist: Adonis Thomas MD #### TREP, HIVCMB, PHEP #### [address] [address] Energy Specialist: Perry Marte MD Comp Metabolic Profon 2023 Albumin [Mass/Vol] 4.2 g/dL Normal 3.5-5.2 [facility] Comment on above: Performed By: #### H CG, CDP, CP #### [facility] [address] [place], [place] [phone] Energy Specialist: Adonis Thomas MD #### TREP, HIVCMB, PHEP #### [place] 584172 [place], [place] [phone] Energy Specialist: Perry Marte MD Albumin/Glob Ratio 1.6 Normal 1.0-2.5 [facility] Comment on above: Performed By: #### H CG, CDP, CP #### [facility] [address] [place], [place] [phone] Energy Specialist: Adonis Thomas MD #### TREP, HIVCMB, PHEP #### [address] [phone] Energy Specialist: Perry Marte MD Alkaline Phos 77 U/L Normal 35-104 [facility] Comment on above: Performed By: #### H CG, CDP, CP #### [facility] [address] [place], [place] [phone] Energy Specialist: Adonis Thomas MD #### TREP, HIVCMB, PHEP #### [place] 584172 [place] [address] Energy Specialist: Perry Marte MD ALT [Catalytic activity/Vol] 16 U/L Normal 5-33 [facility] Comment on above: Performed By: #### H CG, CDP, CP #### [facility] [address] [place], [place] [phone] Energy Specialist: Adonis Thomas MD #### TREP, HIVCMB, PHEP #### [address] [phone] Energy Specialist: Perry Marte MD Anion gap [Moles/Vol] 8 mmol/L Low 9-17 [facility] Comment on above: Performed By: #### H CG, CDP, CP #### [facility] [address] [place], [place] [phone] Energy Specialist: Adonis Thomas MD #### TREP, HIVCMB, PHEP #### [address] [phone] Energy Specialist: Perry Marte MD AST [Catalytic activity/Vol] 13 U/L Normal <32 [facility] Comment on above: Performed By: #### H CG, CDP, CP #### [facility] [address] [place], [place] [phone] Energy Specialist: Adonis Thomas MD #### TREP, HIVCMB, PHEP #### [address] [phone] Energy Specialist: Perry Marte MD Bilirubin [Mass/Vol] 0.4 mg/dL Normal 0.3-1.2 [facility] Comment on above: Performed By: #### H CG, CDP, CP #### [facility] [address] [place] [address] Dr. [place], [place] [phone] Energy Specialist: Adonis Thomas MD #### TREP, HIVCMB, PHEP #### [place] [address]172 [place], [place] [phone] Energy Specialist: Perry Marte MD BUN/CRE Ratio 27 High 9-20 [facility] Comment on above: Performed By: #### H CG, CDP, CP #### [facility] [address] [place], [place] [phone] Energy Specialist: Adonis Thomas MD #### TREP, HIVCMB, PHEP #### [address] [phone] Energy Specialist: Perry Marte MD Calcium [Mass/Vol] 9.0 mg/dL Normal 8.6-10.4 [facility] Comment on above: Performed By: #### H CG, CDP, CP #### [facility] [address] [place], [place] [phone] Energy Specialist: Adonis Thomas MD #### TREP, HIVCMB, PHEP #### [facility] [address] [place], [place] [phone] Energy Specialist: Perry Marte MD Chloride [Moles/Vol] 104 mmol/L Normal 98-107 [facility] Comment on above: Performed By: #### H CG, CDP, CP #### [facility] [address] [place] [address] [place], [place] [phone] Energy Specialist: Adonis Thomas MD #### TREP, HIVCMB, PHEP #### [place] 584170 [place], [place] [phone] Energy Specialist: Perry Marte MD CO2 [Moles/Vol] 29 mmol/L Normal 20-31 [facility] Comment on above: Performed By: #### H CG, CDP, CP #### [facility] [address] [place] [address] [place], [place] [phone] Energy Specialist: Adonis Thomas MD #### TREP, HIVCMB, PHEP #### [facility] [address] [place], [place] [phone] Energy Specialist: Perry Marte MD Creatinine [Mass/Vol] 0.7 mg/dL Normal 0.5-0.9 [facility] Comment on above: Performed By: #### H CG, CDP, CP #### [facility] [address] [place] [address] [place], [place] [phone] Energy Specialist: Adonis Thomas MD #### TREP, HIVCMB, PHEP #### [address] [phone] Energy Specialist: Perry Marte MD GFR/1.73 sq M.predicted among non-blacks MDRD (S/P/Bld) [Vol rate/Area] mL/min/{1.73_m2} Normal >60 [facility] Comment on above: Result Comment: These results [...] By: #### H KASHIF, CDP, CP #### [address] [place] [address] Energy Specialist: Adonis Thomas MD #### TREP, HIVCMB, PHEP #### [address] [phone] Energy Specialist: Perry Marte MD Glucose [Mass/Vol] 92 mg/dL Normal 70-99 [facility] Comment on above: Performed By: #### H CG, CDP, CP #### [address] [place] [address] Energy Specialist: Adonis Thomas MD #### TREP, HIVCMB, PHEP #### [address] [phone] Energy Specialist: Perry Marte MD Potassium [Moles/Vol] 3.4 mmol/L Low 3.7-5.3 [facility] Comment on above: Performed By: #### H CG, CDP, CP #### [address] [place] [address] Energy Specialist: Adonis Thomas MD #### TREP, HIVCMB, PHEP #### [address] [place] [address] Energy Specialist: Perry Marte MD Protein [Mass/Vol] 6.9 g/dL Normal 6.4-8.3 [facility] Comment on above: Performed By: #### H CG, CDP, CP #### [facility] [address] [place], [place] [phone] Energy Specialist: Adonis Thomas MD #### TREP, HIVCMB, PHEP #### [place] [address] [place], [place] [phone] Energy Specialist: Perry Marte MD Sodium [Moles/Vol] 141 mmol/L Normal 135-144 [facility] Comment on above: Performed By: #### H CG, CDP, CP #### [facility] [address] [place] [address] [place], [place] [phone] Energy Specialist: Adonis Thomas MD #### TREP, HIVCMB, PHEP #### [address] [phone] Energy Specialist: Perry Marte MD Urea nitrogen [Mass/Vol] 19 mg/dL Normal 6-20 [facility] Comment on above: Performed By: #### H CG, CDP, CP #### [facility] [address] [place] [address] [address] [place], [place] [phone] Energy Specialist: Adonis Thomas MD #### TREP, HIVCMB, PHEP #### [address] [phone] Energy Specialist: Perry Marte MD HCG Screen, Bloodon 05-04-20 24 HCG Screen, Blood Negative Normal NEG [facility] Comment on above: Result Comment: Spec imens with hCG levels near the threshold of the test (25 mIU/mL) may give a negative or indeterminate result. In such cases, another test should be performed with a new specimen in 48-72 hours. If early is suspected clinically in this setting, correlation with quantitative serum b-hCG level is suggested. [facility] has confirmed the use of plasma for this test. This has not been cleared or approved by the U.[place]. Food and Drug Administration. The FDA has determined that such clearance is not necessary. Performed By: #### H JOSÉ ROWLAND, CP #### [address] [place], [place] [phone] Energy Specialist: Adonis Thomas MD #### TREP, HIVCMB, PHEP #### [address] [phone] Energy Specialist: Perry Marte MD HIV Ag/Abon 05-04-2024 HIV Ag/Ab Non-Reactive Normal [facility] Comment on above: Result Comment: No l aboratory evidence of HIV infection. If acute HIV infection is suspected, consider testing for HIV-1 RNA. Performed By: #### H JOSÉ ROWLAND, CP #### [address] [place], [place] [phone] Energy Specialist: Adonis Thomas MD #### TREP, HIVCMB, PHEP #### [address] [phone] Energy Specialist: Perry Marte MD Hepatitis Acute [facility] 05-04 Hep A Ab,IgM Non-Reactive Normal [facility] Comment on above: Performed By: #### H JOSÉ ROWLAND, CP #### [address] [place], [place] [phone] Energy Specialist: Adonis Thomas MD #### TREP, HIVCMB, PHEP #### [place] [address] [place] [address] Energy Specialist: Perry Marte MD Hep B Core Ab,IgM Non-Reactive Normal [facility] Comment on above: Performed By: #### H JOSÉ ROWLAND, CP #### [address] [place] [address] Energy Specialist: Adonis Thomas MD #### TREP, HIVCMB, PHEP #### [facility] [place], [place] [phone] Energy Specialist: Perry Marte MD Hep B Surf Ag Non-Reactive Normal [facility] Comment on above: Performed By: #### H CG, CDP, CP #### [address] [place] [address] Energy Specialist: Adonis Thomas MD #### TREP, HIVCMB, PHEP #### [address] [phone] Energy Specialist: Perry Marte MD Hep C Ab Non-Reactive Normal [facility] Comment on above: [...] By: #### H JOSÉ ROWLAND, CP #### [address] [place] [address] Energy Specialist: Adonis Thomas MD #### TREP, HIVCMB, PHEP #### [facility] [address] [place] [address] [phone] Energy Specialist: Perry Marte MD T.pallidum Ab Screenon 05-04 T.pallidum Ab Screen Non-Reactive Normal [facility] Comment on above: Result Comment: T. pallidum antibodies are not detected. There is no serological evidence of infection with T. pallidum (early primary syphilis cannot be excluded). Retest in 2-4 weeks if syphilis is clinically suspect. Performed By: #### S WCGP #### [address] [phone] Energy Specialist: Perry Marte MD UA w/Reflex Cultureon 2023 Bilirubin, SemiQt,Ur Negative Normal NEG [facility] Comment on above: Performed By: #### U MICAO, UAX #### [facility] [address] [place], [place] [phone] Energy Specialist: Adonis Thomas MD Blood, Urine 2+ Abnormal NEG [facility] Comment on above: Performed By: #### U MICAO, UAX #### [facility] [address] [place] [address] Energy Specialist: Adonis Thomas MD Clarity (U) Clear Normal CLEAR [facility] Comment on above: Performed By: #### U MICAO, UAX #### [facility] [address] [place], [place] [phone] Energy Specialist: Adonis Thoams MD Color (U) Yellow Normal YEL [facility] Comment on above: Performed By: #### U MICAO, UAX #### [facility] [address] [place] [address] Energy Specialist: Adonis Thomas MD Glucose Ql (U) Negative Normal NEG [facility] in Hospital Comment on above: Performed By: #### U MICAO, UAX #### [facility] [address] [place] [address] [place] [address] Energy Specialist: Adonis Thomas MD Ketones Ql (U) Negative Normal NEG [facility] Comment on above: Performed By: #### U MICAO, UAX #### [facility] [address] [place], [place] [phone] Energy Specialist: Adonis Thomas MD Leukocyte esterase Test strip Ql (U) Negative Normal NEG [facility] Comment on above: Performed By: #### U MICAO, UAX #### [facility] [address] [place], [place] [phone] Energy Specialist: Adonis Thomas MD Nitrite,Ur Negative Normal NEG [facility] Comment on above: Performed By: #### U MICAO, UAX #### [facility] [address] [place] [address] [place] [address] Energy Specialist: Adonis Thomas MD PH,Ur 6.0 Normal 5.0-9.0 [facility] Comment on above: Performed By: #### U MICAO, UAX #### [address] [place], [place] [address] Energy Specialist: Adonis Thomas MD Protein Ql (U) Negative Normal NEG [facility] Comment on above: Performed By: #### U MICAO, UAX #### [address] [place], [facility] Energy Specialist: Adonis Thomas MD Spec. [place],Ur >1.030 High 1.010-1.020 [facility] Comment on above: Performed By: #### U MICAO, UAX #### [address] [place], [place] [phone] Energy Specialist: Adonis Thomas MD Urobilinogen,Ur Normal Normal 0.0-1.0 [facility] Comment on above: Performed By: #### U MICAO, UAX #### [address] [place], [place] [address] Energy Specialist: Adonis Thomas MD Urinalysis,Microon 4 Bacteria 1+ Abnormal NONE [facility] Comment on above: Performed By: #### U MICAO, UAX #### [address] [place], [id number] Energy Specialist: Adonis Thomas MD Epithelial cells LM Ql (Urine sed) 10 TO 20 Normal 0-25 [facility] Comment on above: Performed By: #### U MICAO, UAX #### [address] [place], [facility] Energy Specialist: Adonis Thomas MD Urine RBC's 2 TO 5 Normal 0-2 [facility] Comment on above: Performed By: #### U WALDEMARO, UAX #### [facility] [address] [place] [address] Energy Specialist: Adonis Thomas MD Urine WBC's 0 TO 2 Normal 0-5 [facility] Comment on above: Performed By: #### U WALDEMARO, UAX #### [facility] [address] [place] [address] Energy Specialist: Adonis Thomas MD C. trachomatis and N. gonorr hoeae DNA JOSE R+probe Nom (Unsp spec)on 02-21-2024 C. trachomatis rRNA JOSE R+probe Ql (Unsp spec) Negative Normal Negative [facility] Comment on above: Order Comment: The [...] By: #### 3 6903-3 #### RONAL Gerber ([id number]) [facility] ([facility]) [address] [place], [place] [phone] N. gonorrhoeae DNA Probe+sig amp Ql (Unsp spec) Negative Normal Negative [facility] Comment on above: Order Comment: The [...] By: #### 3 6903-3 #### RONAL Gerber ([id number]) [facility] ([facility]) [address] [place] [address] Trichomonas vaginalis rRNAon 02-21-2024 T. vaginalis rRNA JOSE R+probe Ql (Unsp spec) Positive Abnormal Negative, Invalid, TRICH neg [facility] Comment on above: Order Comment: The A PTIMA Trichomonas vaginalis assay is FDA-approved for testing on female endocervical swabs, vaginal swabs, and ThinPrep liquid pap samples. Performance characteristics for Trichomonas vaginalis on specific [id number] sample types (female and male urine and male urethral swabs) have been validated by [facility]. This laboratory is certified by CLIA to perform high complexity testing. Samples from all other sites are not validated for this method. Result Comment: Perf ormance characteristics for Trichomonas Vaginalis testing on urine samples has been validated by [facility]. Testing on this sample type is not FDA-approved, but such approval is not necessary. This laboratory is certified by CLIA to perform high complexity testing. Performed By: #### 4 6154-1 #### RONAL Gerber ([id number]) [facility] ([facility]) [address] [place] [address] Alcoholon 05-29-2023 Blood Alcohol Concentration Not indicated Normal [facility] Comment on above: Performed By: #### A LCOH #### [facility] [address] [place] [address] Ethanol [Mass/Vol] mg/dL Normal [facility] Comment on above: Performed By: #### A LCOH #### [facility] [address] [place] [address] Comprehensive Metabolic Pane shad 05-29-2023 Albumin [Mass/Vol] 5.2 g/dL Critically high 3.5-4.6 [address] [facility] Comment on above: Performed By: #### C MP #### [facility] [address] [place] [address] ALP [Catalytic activity/Vol] 64 U/L Normal 40-130 [facility] Comment on above: Performed By: #### C MP #### [facility] [address] [place] [address] ALT [Catalytic activity/Vol] 17 U/L Normal 0-33 [facility] Comment on above: Performed By: #### C MP #### [facility] [address] [place] [address] Anion gap [Moles/Vol] 19 mmol/L Critically high 9-15 [facility] Comment on above: Performed By: #### C MP #### [facility] [address] [place] [address] AST [Catalytic activity/Vol] 22 U/L Normal 0-35 [facility] Comment on above: Performed By: #### C MP #### [facility] [address] [place] [address] Bilirubin [Mass/Vol] 0.8 mg/dL Critically high 0.2-0.7 [facility] Comment on above: Performed By: #### C MP #### [facility] [address] [place] [address] Calcium [Mass/Vol] 10.2 mg/dL Critically high 8.5-9.9 [facility] Comment on above: Performed By: #### C MP #### [facility] [address] [place] [address] Chloride [Moles/Vol] 99 mmol/L Normal 95-107 [facility] Comment on above: Performed By: #### C MP #### [facility] [address] [place] [address] CO2 [Moles/Vol] 22 mmol/L Normal 20-31 [facility] Comment on above: Performed By: #### C MP #### [facility] [address] [place] [address] Creatinine [Mass/Vol] 0.60 mg/dL Normal 0.50-0.90 [facility] Comment on above: Performed By: #### C MP #### [facility] [address] [place] [address] GFR >60.0 Normal >60 [facility] Comment on above: Result Comment: Cristy lambc [...] secretion. Performed By: #### C MP #### [facility] [address] [place] [address] Globulin (S) [Mass/Vol] 2.6 g/dL Normal 2.3-3.5 [facility] Comment on above: Performed By: #### C MP #### [facility] [facility] [address] [place] [address] Glucose [Mass/Vol] 102 mg/dL Critically high 70-99 M [facility] Comment on above: Performed By: #### C MP #### [facility] [address] [place] [address] Potassium [Moles/Vol] 3.9 mmol/L Normal 3.4-4.9 [facility] Comment on above: Performed By: #### C MP #### [facility] [address] [place] [address] Protein [Mass/Vol] 7.8 g/dL Normal 6.3-8.0 [facility] Comment on above: Performed By: #### C MP #### [facility] [address] [place] [address] Sodium [Moles/Vol] 140 mmol/L Normal 135-144 [facility] Comment on above: Performed By: #### C MP #### [facility] [address] [place] [address] Urea nitrogen [Mass/Vol] 9 mg/dL Normal 6-20 [facility] Comment on above: Performed By: #### C MP #### [facility] [address] [place] [address] UR Drugs of Abuse Panelon Drug Screen Comment see below Normal [facility] Comment on above: Result Comment: This method is a screening test to detect only these drug classes as part of a medical workup. Confirmatory testing by another method should be ordered if clinically indicated. Performed By: #### U DRGS #### [facility] [address] [place] [address] UR Amphetamines Screen Negative Normal Negative < [facility] Comment on above: Performed By: #### U DRGS #### [facility] [address] [place] [address] UR Barbiturates Screen Negative Normal Negative < [facility] Comment on above: Performed By: #### U DRGS #### [facility] [address] [place] [address] UR Benzo Screen Negative Normal Negative < [facility] Comment on above: Performed By: #### U DRGS #### [facility] [address] [place] [address] UR Cannabinoids Screen Negative Normal Negative < [facility] Comment on above: Performed By: #### U DRGS #### [facility] [address] [place] [address] UR Cocaine Screen Positive Abnormal Negative < [facility] Comment on above: Performed By: #### U DRGS #### [facility] [address] [place] [address] UR Fentanyl Screen Negative Normal Negative < [facility] Comment on above: Performed By: #### U DRGS #### [facility] [address] [place] [address] UR Methadone Screen Negative Normal Negative < [facility] Comment on above: Performed By: #### U DRGS #### [facility] [address] [place] [address] UR Opiates Screen Negative Normal Negative < [facility] Comment on above: Performed By: #### U DRGS #### [facility] [address] [place] [address] UR Oxycodone Screen Negative Normal Negative < [facility] Comment on above: Performed By: #### U DRGS #### [facility] [address] [place] [address] UR PCP Screen Negative Normal Negative < [facility] Comment on above: Performed By: #### U DRGS #### [facility] [address] [place] [address] UR Propoxyphene Screen Negative Normal Negative < [facility] Comment on above: Performed By: #### U DRGS #### [facility] [address] [place] [address] Urinalysis, reflex to micros copicon 05-29-2023 Bilirubin Ql (U) Negative Normal Negative [facility] Comment on above: Performed By: #### U A #### [facility] [address] [place] [address] Clarity (U) Clear Normal Clear [facility] Comment on above: Performed By: #### U A #### [facility] [address] [place] [address] Color (U) Yellow Normal Straw/Canyon [facility] Comment on above: Performed By: #### U A #### [facility] [address] [place] [address] Glucose Ql (U) Negative Normal Negative [facility] Comment on above: Performed By: #### U A #### [facility] [address] [place] [address] Hemoglobin Ql (U) Negative Normal Negative [facility] Comment on above: Performed By: #### U A #### [facility] [address] [place] [address] Ketones Ql (U) 15 mg/dL Abnormal Negative [facility] Comment on above: Performed By: #### U A #### [facility] [address] [place] [address] Leukocyte esterase Test strip Ql (U) TRACE Abnormal Negative [facility] Comment on above: Performed By: #### U A #### [facility] [address] [place] [address] Nitrite Ql (U) Negative Normal Negative [facility] Comment on above: Performed By: #### U A #### [facility] [address] [place] [address] pH (U) 7.5 [pH] Normal 5.0-9.0 [facility] Comment on above: Performed By: #### U A #### [facility] [address] [place] [address] Protein Ql (U) Negative Normal Negative [facility] Comment on above: Performed By: #### U A #### [facility] [address] [place] [address] Specific gravity (U) [Rel density] 1.008 Normal 1.005-1.03 [facility] Comment on above: Performed By: #### U A #### [facility] [address] [place] [address] Urobilinogen Qn (U) 0.2 {Vielka'U}/dL Normal < 2.0 [facility] Comment on above: Performed By: #### U A #### [facility] [address] [place] [address] Urine Microscopicon 05-29-20 23 Urine Bacteria MANY Abnormal Negative [facility] Comment on above: Performed By: #### A LCOH #### [facility] [address] [place] [address] Urine Epithelial Cells Auto 0-2 Normal 0-5 [facility] Comment on above: Performed By: #### A LCOH #### [facility] [address] [place] [address] Urine Hyaline Casts Auto 3-5 Normal 0-5 [facility] Comment on above: Performed By: #### A LCOH #### [facility] [address] [place] [address] Urine RBC Auto 0-2 Normal 0-5 [facility] Comment on above: Performed By: #### A LCOH #### [facility] [address] [place] [address] Urine WBC Auto 10-20 Abnormal 0-5 [facility] Comment on above: Performed By: #### A LCOH #### [facility] [address] [place] [address] 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 Vitals Vital Signs Recorded: 09Jan2023 04:18PM [id number], LUE, Sitting Oegxbmcde16, LUE, Sitting Height5 ft 6 in Qixxgw675 lb 6 oz BMI Tzovlgdnek87.59 kg/m2 BSA Calculated1.78 Tobacco Useb) No PHQ-2 #1. Over the last 2 weeks have you felt down, depressed or hopeless? (If yes, answer PHQ-9 below)No PHQ-2 #2. Over the last 2 weeks have you felt little interest or pleasure in doing things? (If yes, answer PHQ-9 below)No Falls Screening (Age 18+)a) No falls within the last year [id number] Signatures Electronically signed by : Cally Meyer MD; Jan 10 2023 9:46AM EST (Author) Normal [employer] Tobacco Screening.on 023 Adult depression screening assessment No [facility] [employer] Phone: Fall risk assessment a) No falls within the last year [facility] [employer] Phone: Last menstrual period start date 22Dec2022 [facility] [employer] Work Phone: Tobacco use status [facility] b) No [facility] [employer] Phone: Established Visit (Orthopaed ic Surgery)on 11-22-2022 [...] grammatical areas may persist related to the [employer] software Chacorta Erwin MD Office: . Active [...] use (V49.89) (more content not included)... Normal [facility] Provider Note - ED v3on - Provider [...] SIGNS: T PRBP SpO2O2(LPM) %FiO2 Method 21-Nov-2022 01:56:[id number]/63 100 room air, no respiratory support MDM [...] today. N (more content not included)... Normal [facility] Triage - EDon 11-21-2022 Triage - [...] BMI (kg/m2): 24.243 Calculated BSA (m2) 1.78 Davis Coma Scale: Best Eye Response: (E4) spontaneous Best Motor Response: (M6) obeys commands Best Verbal Response: (V5) oriented Davis Score: 15 Cough lasting greater than 3 [...] Updated: 21-Nov-2022 02:18 by Kashif Hammond (NIHARIKA) [facility] Provider Note - ED v3on 11-04 [...] SIGNS: T PRBP SpO2O2(LPM) %FiO2 Method 20-Nov-2022 13:51:[id number]/62 97 room air, no respiratory support MDM [...] ill patient: no Electronic Signatures: Elinor Sagastume (BEHAVIORAL HEALTH DIRECTOR-RESEARCH PROJECT COORDINATOR) (Signed 30-Nov-2022 06:11) Authored: ED Notes, HPI, PMH, Results/Vital Signs, MDM/ED Course, Clinical Impression, Attestation, Chart Review, Scores Last Updated: 30-Nov-2022 06:11 by Elinor Sagastume (BEHAVIORAL HEALTH DIRECTOR-RESEARCH PROJECT COORDINATOR) References: 1. Data Referenced From Triage - ED 20-Nov-2022 13:51 Normal [facility] Radiologyon 11-20-2022 XR Foot 3 [facility] Phone: Triage - EDon 11-20-2022 [...] Accompanied By: self Language: Spoken Language Preferred: Gambian Reading Language Preferred: Gambian Home Assessment Nurse Requested: no rn acute dialysis was requested MDRO: History of MDRO: no [...] BMI (kg/m2): 24.208 Calculated BSA (m2) 1.78 Davis Coma Scale: Best Eye Response: (E4) spontaneous [...] 20-Nov-2022 13:54 by Tara Pickett (RN) Normal [facility] Alcoholon 10-08-2022 Blood Alcohol Concentration Not indicated Normal [facility] Comment on above: Performed By: #### A LCOH #### [facility] [address] [place] [address] Ethanol [Mass/Vol] mg/dL Normal [facility] Comment on above: Performed By: #### A LCOH #### [facility] [address] [place] [address] CBC With Platelet and Differ entialon 10-08-2022 Basophils (Bld) [#/Vol] 0.0 10*3/uL Normal 0.0-0.2 [facility] Comment on above: Performed By: #### C BCWD #### [facility] [address] [place] [address] Basophils/100 WBC (Bld) 0.5 % Normal [facility] Comment on above: Performed By: #### C BCWD #### [facility] [address] [place] [address] Eosinophils (Bld) [#/Vol] 0.0 10*3/uL Normal 0.0-0.7 [facility] Comment on above: Performed By: #### C BCWD #### [facility] [address] [place] [address] Eosinophils/100 WBC (Bld) 0.5 % Normal [facility] Comment on above: Performed By: #### C BCWD #### [facility] [address] [place] [address] Erythrocyte distribution width (RBC) [Ratio] 13.8 % Normal 11.5-14.5 [facility] Comment on above: Performed By: #### C BCWD #### [facility] [address] [place] [address] Hematocrit (Bld) [Volume fraction] 39.4 % Normal 37.0-47.0 [facility] Comment on above: Performed By: #### C BCWD #### [facility] [address] [place] [address] Hemoglobin (Bld) [Mass/Vol] 13.2 g/dL Normal 12.0-16.0 [facility] Comment on above: Performed By: #### C BCWD #### [facility] [address] [place] [address] Lymphocytes (Bld) [#/Vol] 1.4 10*3/uL Normal 1.0-4.8 [facility] Comment on above: Performed By: #### C BCWD #### [facility] [address] [place] [address] Lymphocytes/100 WBC (Bld) 19.2 % Normal [facility] Comment on above: Performed By: #### C BCWD #### [facility] [address] [place] [address] MCH (RBC) [Entitic mass] 29.2 pg Normal 27.0-31.3 [facility] Comment on above: Performed By: #### C BCWD #### [facility] [address] [place] [address] MCHC 33.6 % Normal 33.0-37.0 [facility] Comment on above: Performed By: #### C BCWD #### [facility] [address] [place] [address] MCV (RBC) [Entitic vol] 87.1 fL Normal 79.4-94.8 [facility] Comment on above: Performed By: #### C BCWD #### [facility] [address] [place] [address] Monocytes (Bld) [#/Vol] 0.8 10*3/uL Normal 0.2-0.8 [facility] Comment on above: Performed By: #### C BCWD #### [facility] [address] [place] [address] Monocytes/100 WBC (Bld) 10.8 % Normal [facility] Comment on above: Performed By: #### C BCWD #### [facility] [address] [place] [address] Neutrophils (Bld) [#/Vol] 5.0 10*3/uL Normal 1.4-6.5 [facility] Comment on above: Performed By: #### C BCWD #### [facility] [address] [place] [address] Neutrophils/100 WBC (Bld) 69.0 % Normal [facility] Comment on above: Performed By: #### C BCWD #### [facility] [address] [place] [address] Platelets (Bld) [#/Vol] 291 10*3/uL Normal 130-400 [facility] Comment on above: Performed By: #### C BCWD #### [facility] [address] [place] [address] RBC (Bld) [#/Vol] 4.53 10*6/uL Normal 4.20-5.40 [facility] Comment on above: Performed By: #### C BCWD #### [facility] [address] [place] [address] WBC (Bld) [#/Vol] 7.2 10*3/uL Normal 4.8-10.8 [facility] Comment on above: Performed By: #### C BCWD #### [facility] [address] [place] [address] Comprehensive Metabolic Pane shad 10-08-2022 Albumin [Mass/Vol] 5.0 g/dL Critically high 3.5-4.6 [facility] Comment on above: Order Comment: CALL [facility] tel. [phone], Chemistry, POTASSIUM results called to and read back by IRA PECK, 10/08/2022 10:40, by JOSÉ MIGUEL Performed By: #### C MP #### [facility] [address] [place] [address] ALP [Catalytic activity/Vol] 72 U/L Normal 40-130 [facility] Comment on above: Order Comment: CALL [facility] tel. [phone], Chemistry, POTASSIUM results called to and read back by IRA PECK, 10/08/2022 10:40, by JOSÉ MIGUEL Performed By: #### C MP #### [facility] [address] [place] [address] ALT [Catalytic activity/Vol] 18 U/L Normal 0-33 [facility] Comment on above: Order Comment: CALL [facility] tel. [phone], Chemistry, POTASSIUM results called to and read back by IRA PECK, 10/08/2022 10:40, by VLDOUGLAS Performed By: #### C MP #### [facility] [address] [place] [address] Anion gap [Moles/Vol] 17 mmol/L Critically high 9-15 [facility] Comment on above: Order Comment: CALL [facility] tel. [phone], Chemistry, POTASSIUM results called to and read back by IRA PECK, 10/08/2022 10:40, by JOSÉ MIGUEL Performed By: #### C MP #### [facility] [address] [place] [address] AST [Catalytic activity/Vol] 20 U/L Normal 0-35 [facility] Comment on above: Order Comment: CALL [facility] tel. [phone], Chemistry, POTASSIUM results called to and read back by IRA PECK, 10/08/2022 10:40, by JOSÉ MIGUEL Performed By: #### C MP #### [facility] [address] [place] [address] Bilirubin [Mass/Vol] 2.0 mg/dL Critically high 0.2-0.7 [facility] Comment on above: Order Comment: CALL [facility] tel. [phone], Chemistry, POTASSIUM results called to and read back by IRA PECK, 10/08/2022 10:40, by JOSÉ MIGUEL Performed By: #### C MP #### [facility] [address] [place] [address] Calcium [Mass/Vol] 10.1 mg/dL Critically high 8.5-9.9 [address] [facility] Comment on above: Order Comment: CALL [facility] tel. [phone], Chemistry, POTASSIUM results called to and read back by IRA PECK, 10/08/2022 10:40, by JOSÉ MIGUEL Performed By: #### C MP #### [facility] [address] [place] [address] Chloride [Moles/Vol] 101 mmol/L Normal 95-107 [facility] Comment on above: Order Comment: CALL [facility] tel. [phone], Chemistry, POTASSIUM results called to and read back by IRA PECK, 10/08/2022 10:40, by VLDOUGLAS Performed By: #### C MP #### [facility] [address] [place] [address] CO2 [Moles/Vol] 22 mmol/L Normal 20-31 [facility] Comment on above: Order Comment: CALL [facility] tel. [phone], Chemistry, POTASSIUM results called to and read back by IRA PECK, 10/08/2022 10:40, by JOSÉ MIGUEL Performed By: #### C MP #### [facility] [address] [place] [address] Creatinine [Mass/Vol] 0.63 mg/dL Normal 0.50-0.90 [facility] Comment on above: Order Comment: CALL [facility] tel. [phone], Chemistry, POTASSIUM results called to and read back by IRA PECK, 10/08/2022 10:40, by JOSÉ MIGUEL Performed By: #### C MP #### [facility] [address] [place] [address] GFR >60.0 Normal >60 [facility] Comment on above: Order Comment: CALL [facility] tel. [phone], Chemistry, POTASSIUM results called to and read [...] secretion. Performed By: #### C MP #### [facility] [address] [place] [address] Globulin (S) [Mass/Vol] 3.0 g/dL Normal 2.3-3.5 [facility] Comment on above: Order Comment: CALL [facility] tel. [phone], Chemistry, POTASSIUM results called to and read back by IRA PECK, 10/08/2022 10:40, by JOSÉ MIGUEL Performed By: #### C MP #### [facility] [address] [place] [address] Glucose [Mass/Vol] 111 mg/dL Critically high 70-[address] [facility] Comment on above: Order Comment: CALL [facility] tel. [phone], Chemistry, POTASSIUM results called to and read back by IRA PECK, 10/08/2022 10:40, by JOSÉ MIGUEL Performed By: #### C MP #### [facility] [address] [place] [address] Potassium [Moles/Vol] 3.0 mmol/L Critically low 3.4-4.9 [facility] Comment on above: Order Comment: CALL [facility] tel. [phone], Chemistry, POTASSIUM results called to and read back by IRA PECK, 10/08/2022 10:40, by JOSÉ MIGUEL Performed By: #### C MP #### [facility] [address] [place] [address] Protein [Mass/Vol] 8.0 g/dL Normal 6.3-8.0 [facility] Comment on above: Order Comment: CALL [facility] tel. [phone], Chemistry, POTASSIUM results called to and read back by IRA PECK, 10/08/2022 10:40, by JOSÉ MIGUEL Performed By: #### C MP #### [facility] [address] [place] [address] Sodium [Moles/Vol] 140 mmol/L Normal 135-144 [facility] Comment on above: Order Comment: CALL [facility] tel. [phone], Chemistry, POTASSIUM results called to and read back by IRA PECK, 10/08/2022 10:40, by JOSÉ MIGUEL Performed By: #### C MP #### [facility] [address] [place] [address] Urea nitrogen [Mass/Vol] 20 mg/dL Normal 6-20 [facility] Comment on above: Order Comment: CALL [facility] tel. [phone], Chemistry, POTASSIUM results called to and read back by IRA PECK, 10/08/2022 10:40, by JOSÉ MIGUEL Performed By: #### C MP #### [facility] [address] [place] [address] UR Drugs of Abuse Panelon Drug Screen Comment see below Normal [facility] Comment on above: Result Comment: This method is a screening test to detect only these drug classes as part of a medical workup. Confirmatory testing by another method should be ordered if clinically indicated. Performed By: #### U DRGS #### [facility] [address] [place] [address] UR Amphetamines Screen Positive Abnormal Negative < [facility] Comment on above: Performed By: #### U DRGS #### [facility] [address] [place] [address] UR Barbiturates Screen Negative Normal Negative < [facility] Comment on above: Performed By: #### U DRGS #### [facility] [address] [place] [address] UR Benzo Screen Negative Normal Negative < [facility] Comment on above: Performed By: #### U DRGS #### [facility] [address] [place] [address] UR Cannabinoids Screen Positive Abnormal Negative < [facility] Comment on above: Performed By: #### U DRGS #### [facility] [address] [place] [address] UR Cocaine Screen Positive Abnormal Negative < [facility] Comment on above: Performed By: #### U DRGS #### [facility] [address] [place] [address] UR Fentanyl Screen Negative Normal Negative < [facility] Comment on above: Performed By: #### U DRGS #### [facility] [address] [place] [address] UR Methadone Screen Negative Normal Negative < [facility] Comment on above: Performed By: #### U DRGS #### [facility] [address] [place] [address] UR Opiates Screen Negative Normal Negative < [facility] Comment on above: Performed By: #### U DRGS #### [facility] [address] [place] [address] UR Oxycodone Screen Negative Normal Negative < [facility] Comment on above: Performed By: #### U DRGS #### [facility] [address] [place] [address] UR PCP Screen Negative Normal Negative < [facility] Comment on above: Performed By: #### U DRGS #### [facility] [address] [place] [address] UR Propoxyphene Screen Negative Normal Negative < [facility] Comment on above: Performed By: #### U DRGS #### [facility] [address] [place] [address] Urinalysis, reflex to micros copicon 10-08-2022 Bilirubin Ql (U) Negative Normal Negative [facility] Comment on above: Performed By: #### U A #### [facility] [address] [place] [address] Clarity (U) CLOUDY Abnormal Clear [facility] Comment on above: Performed By: #### U A #### [facility] [address] [place] [address] Color (U) ORANGE Abnormal Straw/Canyon [facility] [facility] Comment on above: Performed By: #### U A #### [facility] [address] [place] [address] Glucose Ql (U) Negative Normal Negative [facility] Comment on above: Performed By: #### U A #### [facility] [address] [place] [address] Hemoglobin Ql (U) TRACE Abnormal Negative [facility] Comment on above: Performed By: #### U A #### [facility] [address] [place] [address] Ketones Ql (U) >=80 Abnormal Negative [facility] Comment on above: Performed By: #### U A #### [facility] [address] [place] [address] Leukocyte esterase Test strip Ql (U) MODERATE Abnormal Negative [facility] Comment on above: Performed By: #### U A #### [facility] [address] [place] [address] Nitrite Ql (U) Negative Normal Negative [facility] Comment on above: Performed By: #### U A #### [facility] [address] [place] [address] pH (U) 7.5 [pH] Normal 5.0-9.0 [facility] Comment on above: Performed By: #### U A #### [facility] [address] [place] [address] Protein Ql (U) 30 mg/dL Abnormal Negative [facility] Comment on above: Performed By: #### U A #### [facility] [address] [place] [address] Specific gravity (U) [Rel density] 1.030 Normal 1.005-1.03 [facility] Comment on above: Performed By: #### U A #### [facility] [address] [place] [address] Urobilinogen Qn (U) 1.0 {Vielka'U}/dL Normal < 2.0 [facility] Comment on above: Performed By: #### U A #### [facility] [address] [place] [address] Urine Microscopicon 10-08-20 22 Epithelial cells LM Ql (Urine sed) 5-10 Normal [facility] Comment on above: Performed By: #### U LINDY #### [facility] [address] [place] [address] Urine RBC 3-5 Abnormal 0-2 [facility] Comment on above: Performed By: #### U LINDY #### [facility] [address] [place] [address] Urine Bacteria RARE Abnormal Negative [facility] Comment on above: Performed By: #### U LINDY #### [facility] [address] [place] [address] Urine Epithelial Cells Auto 20-50 Normal 0-5 [facility] Comment on above: Performed By: #### U LINDY #### [facility] [address] [place] [address] Urine Hyaline Casts Auto 10-20 Normal 0-5 [facility] Comment on above: Performed By: #### U LINDY #### [facility] [address] [place] [address] Urine WBC Auto 10-20 Abnormal 0-5 [facility] Comment on above: Performed By: #### U LINDY #### [facility] [address] [place] [address] DRUG SCREEN,URINEon 09-09-20 22 AMPHETAMINE SCREEN,U Canceled Normal [facility] Comment on above: Order Comment: TEST DRUG SCREEN,URINE WAS CANCELLED, 09/09/2022 01:17 No specimen received/Pt discharged. Result Comment: CUTO FF LEVEL: 500 NG/ML Cross-reactivity has been reported with high concentrations of the following drugs: buproprion, chloroquine, chlorpromazine, ephedrine, mephentermine, fenfluramine, phentermine, phenylpropanolamine, pseudoephedrine, and propranolol. Performed By: #### D RUG3 #### [address] [id number] BARBITURATES SCREEN,U Canceled Normal [facility] Comment on above: Order Comment: TEST DRUG SCREEN,URINE WAS CANCELLED, 09/09/2022 01:17 No specimen received/Pt discharged. Result Comment: CUTO FF LEVEL: 200 NG/ML Performed By: #### D RUG3 #### [address] [id number] BENZODIAZEPINES SCREEN,U Canceled Normal [facility] Comment on above: Order Comment: TEST DRUG SCREEN,URINE WAS CANCELLED, 09/09/2022 01:17 No specimen received/Pt discharged. Result Comment: CUTO FF LEVEL: 200 NG/ML Performed By: #### D RUG3 #### [address] [id number] CANNABINOIDS SCREEN,U Canceled Normal [facility] Comment on above: Order Comment: TEST DRUG SCREEN,URINE WAS CANCELLED, 09/09/2022 01:17 No specimen received/Pt discharged. Result Comment: CUTO FF LEVEL: 50 NG/ML Performed By: #### D RUG3 #### [address] [id number] COCAINE METABOLITE SCREEN,U Canceled Normal [facility] Comment on above: Order Comment: TEST DRUG SCREEN,URINE WAS CANCELLED, 09/09/2022 01:17 No specimen received/Pt discharged. Result Comment: CUTO FF LEVEL: 150 NG/ML Performed By: #### D RUG3 #### [address] [id number] DRUG SCREEN COMMENT Canceled Normal [facility] Comment on above: Order Comment: TEST DRUG SCREEN,URINE WAS CANCELLED, 09/09/2022 01:17 No specimen received/Pt discharged. Result Comment: Drug screen results are presumptive and should not be used to assess compliance with prescribed medication. Contact the performing [facility] laboratory to add-on definitive confirmatory testing [...] directors. Performed By: #### Wilmer RUG3 #### [address] [id number] FENTANYL SCREEN,URINE Canceled Normal [facility] Comment on above: Order Comment: TEST DRUG SCREEN,URINE WAS CANCELLED, 09/09/2022 01:17 No specimen received/Pt discharged. Result Comment: CUTO FF LEVEL: 5 NG/ML Performed By: #### D RUG3 #### [address] [id number] METHADONE SCREEN,U Canceled Normal [facility] Comment on above: Order Comment: TEST DRUG SCREEN,URINE WAS CANCELLED, 09/09/2022 01:17 No specimen received/Pt discharged. Result Comment: CUTO FF LEVEL: 150 NG/ML The metabolite J-croow-zzhrtvwvfvqeji (LAAM) is not detected by this method in concentrations that would be found in the urine of patients on LAAM therapy. Performed By: #### D RUG3 #### [address] [id number] OPIATES SCREEN,U Canceled Normal [facility] Comment on above: Order Comment: TEST DRUG SCREEN,URINE WAS CANCELLED, 09/09/2022 01:17 No specimen received/Pt discharged. Result Comment: CUTO FF LEVEL: 300 NG/ML The opiate screen does not detect fentanyl, meperidine, or tramadol. Oxycodone is not consistently detected (refer to Oxycodone Screen, Urine result). Performed By: #### D RUG3 #### [address] [id number] OXYCODONE SCREEN,U Canceled Normal [facility] Comment on above: Order Comment: TEST DRUG SCREEN,URINE WAS CANCELLED, 09/09/2022 01:17 No specimen received/Pt discharged. Result Comment: CUTO FF LEVEL: 100 NG/ML This test will accurately detect both oxycodone and oxymorphone. Performed By: #### D RUG3 #### [address] [id number] PCP SCREEN,U Canceled Normal [facility] Comment on above: Order Comment: TEST DRUG SCREEN,URINE WAS CANCELLED, 09/09/2022 01:17 No specimen received/Pt discharged. Result Comment: CUTO FF LEVEL: 25 NG/ML Cross-reactivity has been reported with dextromethorphan. Performed By: #### D RUG3 #### [address], [place] [id number] URINALYSISon 09-09-2022 Appearance (U) Canceled Normal [facility] Comment on above: Order Comment: TEST URINALYSIS WAS CANCELLED, 09/09/2022 01:17 No specimen received/Pt discharged. Performed By: #### U A #### [address], [place] [id number] ASCORBIC ACID Canceled Normal [facility] Comment on above: Order Comment: TEST URINALYSIS WAS CANCELLED, 09/09/2022 01:17 No specimen received/Pt discharged. Result Comment: Conc entrations > = 20 mg/dL of ascorbic acid can be expected to cause strong interference in the reactions testing for glucose, nitrite and blood. It is recommended to discontinue Vitamin C administration and retest in 10 hours. Performed By: #### U A #### [address] [id number] Bilirubin Ql (U) Canceled Normal [facility] Comment on above: Order Comment: TEST URINALYSIS WAS CANCELLED, 09/09/2022 01:17 No specimen received/Pt discharged. Performed By: #### U A #### [address] [id number] Color (U) Canceled Normal [facility] Comment on above: Order Comment: TEST URINALYSIS WAS CANCELLED, 09/09/2022 01:17 No specimen received/Pt discharged. Performed By: #### U A #### [address] [id number] Glucose Ql (U) Canceled Normal [facility] Comment on above: Order Comment: TEST URINALYSIS WAS CANCELLED, 09/09/2022 01:17 No specimen received/Pt discharged. Performed By: #### U A #### [address] [id number] Hemoglobin Ql (U) Canceled Normal [facility] Comment on above: Order Comment: TEST URINALYSIS WAS CANCELLED, 09/09/2022 01:17 No specimen received/Pt discharged. Performed By: #### U A #### [address] [id number] Ketones Ql (U) Canceled Normal [facility] Comment on above: Order Comment: TEST URINALYSIS WAS CANCELLED, 09/09/2022 01:17 No specimen received/Pt discharged. Performed By: #### U A #### [address] [id number] Leukocyte esterase Test strip Ql (U) Canceled Normal [facility] Comment on above: Order Comment: TEST URINALYSIS WAS CANCELLED, 09/09/2022 01:17 No specimen received/Pt discharged. Performed By: #### U A #### [address] [id number] Nitrite Ql (U) Canceled Normal [facility] Comment on above: Order Comment: TEST URINALYSIS WAS CANCELLED, 09/09/2022 01:17 No specimen received/Pt discharged. Performed By: #### U A #### [address] [id number] pH Canceled Normal [facility] Comment on above: Order Comment: TEST URINALYSIS WAS CANCELLED, 09/09/2022 01:17 No specimen received/Pt discharged. Performed By: #### U A #### [address] [id number] Protein Ql (U) Canceled Normal [facility] Comment on above: Order Comment: TEST URINALYSIS WAS CANCELLED, 09/09/2022 01:17 No specimen received/Pt discharged. Performed By: #### U A #### [address] [id number] Specific gravity (U) [Rel density] Canceled Normal [facility] Comment on above: Order Comment: TEST URINALYSIS WAS CANCELLED, 09/09/2022 01:17 No specimen received/Pt discharged. Performed By: #### U A #### [address] [id number] UROBILINOGEN Canceled Normal [facility] Comment on above: Order Comment: TEST URINALYSIS WAS CANCELLED, 09/09/2022 01:17 No specimen received/Pt discharged. Performed By: #### U A #### [address] [id number] CBC AND DIFFERENTIALon 09-08 % AUTOMATED IMMATURE GRAN 0.3 % Normal 0.0 - 0.9 [facility] Comment on above: Result Comment: Hazel ture Granulocyte Count (IG) includes promyelocytes, myelocytes and metamyelocytes but does not include bands. Percent differential counts (%) should be interpreted in the context of the absolute cell counts (cells/L). Performed By: #### C BCDF #### [address] [id number] Basophils (Bld) [#/Vol] 0.05 10*3/uL Normal 0.00 - 0.10 [facility] Comment on above: Performed By: #### C BCDF #### [address] [id number] Basophils/100 WBC (Bld) 0.7 % Normal 0.0 - 2.0 [facility] Comment on above: Performed By: #### C BCDF #### [address] [id number] Eosinophils (Bld) [#/Vol] 0.01 10*3/uL Normal 0.00 - 0.70 [facility] Comment on above: Performed By: #### C BCDF #### [address] [id number] Eosinophils/100 WBC (Bld) 0.1 % Normal 0.0 - 6.0 [facility] Comment on above: Performed By: #### C BCDF #### [address] [id number] Erythrocyte distribution width (RBC) [Ratio] 12.9 % Normal 11.5 - 14.5 [facility] Comment on above: Performed By: #### C BCDF #### [address] [id number] Hematocrit (Bld) [Volume fraction] 34.5 % Low 36.0 - 46.0 [facility] Comment on above: Performed By: #### C BCDF #### [address] [id number] Hemoglobin (Bld) [Mass/Vol] 11.6 g/dL Low 12.0 - 16.0 [facility] Comment on above: Performed By: #### C BCDF #### [address] [id number] Lymphocytes (Bld) [#/Vol] 1.68 10*3/uL Normal 1.20 - 4.80 [facility] Comment on above: Performed By: #### C BCDF #### [address] [id number] Lymphocytes/100 WBC (Bld) 23.1 % Normal 13.0 - 44.0 [facility] Comment on above: Performed By: #### C BCDF #### [address] [id number] MCHC (RBC) [Mass/Vol] 33.6 g/dL Normal 32.0 - 36.0 [facility] Comment on above: Performed By: #### C BCDF #### [address] [id number] MCV (RBC) [Entitic vol] 86 fL Normal 80 - 100 [facility] Comment on above: Performed By: #### C BCDF #### [address] [id number] Monocytes (Bld) [#/Vol] 0.82 10*3/uL Normal 0.10 - 1.00 [facility] Comment on above: Performed By: #### C BCDF #### [address] [id number] Monocytes/100 WBC (Bld) 11.3 % Normal 2.0 - 10.0 [facility] Comment on above: Performed By: #### C BCDF #### [address] [id number] Neutrophils (Bld) [#/Vol] 4.68 10*3/uL Normal 1.20 - 7.70 [facility] Comment on above: Performed By: #### C BCDF #### [address] [id number] Neutrophils/100 WBC (Bld) 64.5 % Normal 40.0 - 80.0 [facility] Comment on above: Performed By: #### C BCDF #### [address] [id number] Platelets (Bld) [#/Vol] 267 10*3/uL Normal 150 - 450 [facility] Comment on above: Performed By: #### C BCDF #### [address] [id number] RBC 3.99 x10E12/L Low 4.00 - 5.20 [facility] Comment on above: Performed By: #### C BCDF #### [address] [id number] WBC (Bld) [#/Vol] 7.3 10*3/uL Normal 4.4 - 11.3 [facility] Comment on above: Performed By: #### C BCDF #### [address] [id number] COMPREHENSIVE PANELon 2021 Albumin [Mass/Vol] 4.6 g/dL Normal 3.4 - 5.0 [facility] Comment on above: Performed By: #### U A #### [address] [id number] ALP [Catalytic activity/Vol] 44 U/L Normal 33 - 110 [facility] Comment on above: Performed By: #### U A #### [address] [id number] ALT [Catalytic activity/Vol] 14 U/L Normal 7 - 45 [facility] Comment on above: Result Comment: Carrie ents treated with Sulfasalazine may generate falsely decreased results for ALT. Performed By: #### U A #### [address] [id number] Anion gap [Moles/Vol] 14 mmol/L Normal 10 - 20 [facility] Comment on above: Performed By: #### U A #### [address] [id number] AST [Catalytic activity/Vol] 19 U/L Normal 9 - 39 [facility] Comment on above: Performed By: #### U A #### [address] [id number] Bilirubin [Mass/Vol] 0.9 mg/dL Normal 0.0 - 1.2 [facility] Comment on above: Performed By: #### U A #### [address] [id number] Calcium [Mass/Vol] 9.3 mg/dL Normal 8.6 - 10.3 [facility] Comment on above: Performed By: #### U A #### [address] [id number] Chloride [Moles/Vol] 101 mmol/L Normal 98 - 107 [facility] Comment on above: Performed By: #### U A #### [address] [id number] Creatinine [Mass/Vol] 0.67 mg/dL Normal 0.50 - 1.05 [facility] Comment on above: Performed By: #### U A #### [address] [id number] eGFR FEMALE >90 Normal >90 [facility] Comment on above: Result Comment: CALC ULATIONS OF ESTIMATED GFR ARE PERFORMED USING THE 2020 CKD-EPI STUDY REFIT EQUATION WITHOUT THE RACE VARIABLE FOR THE IDMS-TRACEABLE CREATININE METHODS. https://jasn.asnjournals.org/content/early//ASN.596270843 8 Performed By: #### U A #### [address] [id number] Glucose [Mass/Vol] 95 mg/dL Normal 74 - 99 [facility] Comment on above: Performed By: #### U A #### [address] [id number] HCO3 (Bld) [Moles/Vol] 25 mmol/L Normal 21 - 32 [facility] Comment on above: Performed By: #### U A #### [address] [id number] Potassium [Moles/Vol] 3.2 mmol/L Low 3.5 - 5.3 [facility] Comment on above: Performed By: #### U A #### [address] [id number] Protein [Mass/Vol] 7.4 g/dL Normal 6.4 - 8.2 [facility] Comment on above: Performed By: #### U A #### [address] [id number] Sodium [Moles/Vol] 137 mmol/L Normal 136 - [address] [facility] Comment on above: Performed By: #### U A #### [address] [id number] Urea nitrogen [Mass/Vol] 14 mg/dL Normal 6 - 23 [facility] Comment on above: Performed By: #### U A #### [address] [id number] HCG,BETA-QUANTITATIVEon HCG,BETA-QUANTITAT ENZO <2 Normal [facility] Comment on above: Result Comment: . Total HCG measurement is performed using the Perri Frederick Access Immunoassay which detects intact HCG and free beta HCG subunit. . This test is not indicated for use as a tumor marker. HCG testing is performed using a different test methodology at [facility] than other [facility]. Direct result comparison should only be made within the same method. REF VALUES NON FEMALE <5 MALES <5 Performed By: #### U A #### [address] [id number] Provider Note - ED v3on Provider Note [...] dictated by speech recognition. Minor errors in greens laborer may be present. Please call if questions. [...] Attestation, C (more content not included)... Normal [facility] Risk Screen - Adult Emergenc yon 09-08-2022 Risk Screen - Adult Emergency Preferred Language: Preferred Language: Preferred Language for Discussing Health Care (patient/designee)G[place]ian Patient Preferred Pharmacy: Patient Preferred Pharmacy Statement: [...] board Learning Preferencesaudio Cultural Considerationsnone Developmental Considerationsnone Mosque Considerationsnone Learning Assessment (Other Learner): Learning Assessment [...] an injured patient at a Trauma Center ([facility]/[place]): no Electronic Signatures: Adonis Melchor (RN) (Signed 08-Sep-2022 20:07) Authored: Preferred Language, Patient Preferred Pharmacy, Advanced Directives, Family Violence Adult, Learning Assessment (Patient), Learning Assessment (Other Learner), Pressure Injury/TB/Substance, Pressure Injury, CAGE Last Updated: 08-Sep-2022 20:07 by Adonis Melchor (RN) Normal [facility] Triage - EDon 09-08-2022 Triage - [...] Updated: 08-Sep-2022 15:36 by Mechelle Garcia (RN) [facility] 10-20-2021 [facility] Telephone (4CQ) -- JULIETTE HERNÁNDEZ ([id number]) 1995 F Date Time Provider Department 10/20/21 JUAN ANTONIO ESQUEDA 4CQ During your visit today, we recorded the following information about you: Beny Pope 10/20/2021 9:39 AM Signed Juliette Hernández called today. : 1995 Allergies: Patient has no known allergies. (home) [phone] (cell) Reason for call: Patient calling asking for an alternative medication of Miconazole Nitrate (MONISTAT 3) 200 mg/5 gram (4 %) cream. Insurance does not cover this for patient. Requesting call back if any issues. Confirmed [facility] Sue as pharmacy Patient last appointment: Visit date not found The patients preferred pharmacy has been captured for this encounter? yes Beny Mcconnell, BEHAVIORAL HEALTH DIRECTOR.[facility] 10/20/2021 9:52 AM Signed rx sent [...] Encounter Status:Closed by TAL MCCONNELL on 10/20/21 [facility] 10-18-2021 [facility] Telephone (EXPCHC) -- JULIETTE HERNÁNDEZ ([id number]) 1995 F Date Time Provider Department 10/18/21 [facility] During your visit today, we recorded [...] by JUAN ANTONIO ESQUEDA on 10/18/21 Normal [facility] Bact Vag Amplificationon Bact Vag Amplification Positive Critically abnormal Negative for bacterial vaginosis [facility] Comment on above: Performed By: #### C VTV, BVAMP #### [facility] [address] [place], [place] [address] CNOVon 10-16-2021 CNOV Office Visit (EXPCHC ) -- JULIETTE HERNÁNDEZ ([id number]) 1995 F Date Time Provider Department 10/16/21 9:05 AM JUAN ANTONIO ESQUEDA EXPC During your visit today, we recorded the following information about you: Temperature Pulse Respiration Blood pressure 98 degrees 64/minute 20/minute 117/66 Weight Last Period 70.1 kg 10/09/21 Juan Antonio Esqueda PA-C 10/16/2021 10:24 AM Addendum This note was created using VeriWaveriter. Subjective Julitete Hernández is a 26 year old female. [...] Exam Vitals reviewed. Exam conducted with a earth moving technician present (Latia Pantoja MA present for exam). [...] VAGINOSIS AMPL (more content not included)... Normal [facility] Sultana Trich Amplon 021 Sultana glabrata RNA Negative Normal Negative [facility] Comment on above: Performed By: #### C VTV, BVAMP #### [facility] [address] [place], [place] [address] Sultana sp group RNA Positive Critically abnormal Negative [facility] Comment on above: Performed By: #### C VTV, BVAMP #### [facility] [place] [phone] Trichomonas RNA Negative Normal [facility] Comment on above: Performed By: #### C VTV, BVAMP #### [facility] [place] [phone] GC/Chlamydia Amplifon 2020 Chlamydia Amplif Negative Normal [facility] Comment on above: Performed By: #### G CCT #### [facility] [address] [place], [place] [phone] GC Amplification Negative Normal [facility] Comment on above: Performed By: #### G CCT #### [facility] [address] [place] [address] GC/Chlam Amp Source Cervix Normal [facility] Comment on above: Performed By: #### G CCT #### [facility] [address] [place] [id number] Urine Cultureon 10-16-2021 Bacteria identified Cx Nom (U) Sp. Request/Comment: - Specimen received in preservative Culture Result - <10,000 CFU/ml Normal urogenital brenda Normal [facility] Comment on above: Performed By: #### U RCUL #### [facility] [address] [place] [id number] CNPNon 07-17-2021 CNPN Telephone (EXPCH) -- JULIETTE HERNÁNDEZ ([id number]) 1995 F Date Time Provider Department 07/17/21 RETA CHAVEZ [facility] During your visit today, we [...] Encounter Status:Closed by RETA CHAVEZ on 07/17/21 [facility] CNCOon 07-15-2021 CNCO Letter Text Normal [facility] CNOVon 07-15-2021 CNOV Office Visit (EXPCHC ) -- JULIETTE HERNÁNDEZ ([id number]) 1995 F Date Time Provider Department 07/15/21 1:15 PM RUBINA LALA EXPCHC During your visit today, we recorded the following information about you: Temperature Pulse Blood pressure Last Period 97.7 degrees 71/minute 117/75 05/07/21 Rubina Lala PA-C 07/15/2021 1:58 PM Signed This note was created using Handmark. Subjective Juliette Hernández is a 26 year [...] causes COVID-19 (more content not included)... Normal [facility] Coronavirus 2019on 1 SARS-CoV-2 (COVID-19) RNA JOSE R+probe Ql (Unsp spec) UPPER RESPIRATORY TRACT SWAB Normal [facility] Comment on above: Performed By: #### C OVID #### [place] [id number] [place] [address] SARS-CoV-2 (COVID-19) RNA JOSE R+probe Ql (Unsp spec) Positive for COVID19 (SARS CoV2) by RT-PCR or equivalent method. Critically abnormal Negative for COVID19 (SARS CoV2) by RT-PCR or equivalent method. [facility] Comment on above: Result Comment: This test was developed and its performance characteristics determined by [facility] [place]. This test has been authorized by FDA under an Emergency Use Authorization (EUA). This test has been validated in accordance with the FDA's Guidance Document Policy for Diagnostics Testing in Laboratories Certified to Perform High Complexity Testing under CLIA prior to Emergency use Authorization for Coronavirus Disease 2019 during the Public Health Emergency issued on January 02, 2020. Test performed by [facility], [facility] and Laboratory Medicine [place], [place] [facility] [address] [place] [address]. Performed By: #### C OVID #### [facility] [place], [place] [address] Cult, Urineon 06-02-2020 Bacteria identified Cx Nom (U) PATIENT: JULIETTE HERNÁNDEZ [place] [facility] [id number] : 89 AGE: SEX: F ORDERED BY: RADHA WISDOM: URINE COLLECTED: 06/02/20 12:48ANTIBIOTICS AT MISSY.: RECEIVED : 06/03/20 00:40SITE: Clean Catch/Voided R E S U L T S URINE CULTURE,BACTERIAL FINAL 06/03/20 23:49 NO SIGNIFICANT GROWTH. ZD-TLEI-Craw [address] [employer] Work Phone: GC + Chlamydia By Amplified Detectionon 06-02-2020 C. trachomatis rRNA JOSE R+probe Ql (Unsp spec) Positive Abnormal Negative PS-LWAL-Ismn [facility] Work Phone: N. gonorrhoeae rRNA JOSE R+probe Ql (Unsp spec) Positive Abnormal Negative HA-FTNY-Wnjc [facility] [employer] Work Phone: Comment on above: SOURCE: Urine IO UA (automated w/o microsc opy)on 06-02-2020 Protein (U) [Mass/Vol] Negative YF-PWUK-Vhon [facility] Work Phone: IO UA (automated w/o microscopy) Negative VQ-JBOB-Tomb [facility] Work Phone: IO UA (automated w/o microscopy) Hemolyzed trace RZ-ROKZ-Epcz [facility] Work Phone: IO UA (automated w/o microscopy) 7.5 WV-WKSL-Lhfn [address] Work Phone: IO UA (automated w/o microscopy) Yellow JR-UVHH-Efbu [facility] Work Phone: IO UA (automated w/o microscopy) Normal PO-KQYR-Avtb [facility] Work Phone: IO UA (automated w/o microscopy) 1.015 XR-UERM-Sxmu [facility] Work Phone: IO UA (automated w/o microscopy) Clear TC-MWMV-Hmmn [facility] [employer] Work Phone: Otheron 06-02-2020 Negative Negative CV-AJII-Rtsp [facility] [employer] Work Phone: Comment on above: SOURCE: Urine CBCon 01-20-2019 Erythrocyte distribution width Ratio (RBC) 13.9 % Normal 12.0-15.4 [facility] Comment on above: Performed By: #### U ARFX #### [facility] [address] [place] [address] Hematocrit Volume Fraction (Bld) 27.4 % Low 36.5-46.6 [facility] Comment on above: Performed By: #### U ARFX #### [facility] [address] [place] [address] Hemoglobin mass conc (Bld) 9.0 g/dL Low 11.8-15.3 [facility] Comment on above: Performed By: #### U ARFX #### [facility] [address] [place] [address] MCH Entitic mass (RBC) 30.1 pg Normal 27.5-33.0 [facility] Comment on above: Performed By: #### U ARFX #### [facility] [address] [place] [address] MCHC mass conc (RBC) 32.8 g/dL Normal 30.1-35.0 [facility] Comment on above: Performed By: #### U ARFX #### [facility] [address] [place] [address] MCV Entitic volume (RBC) 91.6 fL Normal 85.4-100.0 [facility] Comment on above: Performed By: #### U ARFX #### [facility] [address] [place] [address] NRBC Absolute 0.00 10*3/uL Normal [facility] Comment on above: Performed By: #### U ARFX #### [facility] [address] [place] [address] NRBC Automated 0.0 /100{WBCs} Normal [facility] Comment on above: Performed By: #### U ARFX #### [facility] [address] [place] [address] Platelet mean volume Entitic volume (Bld) 10.4 fL Normal 9.9-12.1 [facility] Comment on above: Performed By: #### U ARFX #### [facility] [address] [place] [address] Platelets #/vol (Bld) 181 10*3/uL Normal 155-404 [facility] Comment on above: Performed By: #### U ARFX #### [facility] [address] [place] [address] RBC #/vol (Bld) 2.99 10*6/uL Low 3.85-5.10 [facility] Comment on above: Performed By: #### U ARFX #### [facility] [address] [place], [place] [id number] RDW SD 46.8 fL Normal 39.3-48.6 [facility] Comment on above: Performed By: #### U ARFX #### [facility] [address] [place] [address] WBC #/vol (Bld) 11.7 10*3/uL High 4.4-9.9 [facility] Comment on above: Performed By: #### U ARFX #### [facility] [address] [place] [address] CBC With Differentialon 01-02 Basophils #/vol (Bld) 0.04 10*3/uL Normal 0.01-0.07 [facility] Comment on above: Performed By: #### U ARFX #### [facility] [address] [place] [address] Basophils/100 WBC (Bld) 0.4 % Normal 0.1-1.2 [facility] Comment on above: Performed By: #### U ARFX #### [facility] [address] [place] [address] Eosinophils #/vol (Bld) 0.03 10*3/uL Low 0.04-0.50 [facility] Comment on above: Performed By: #### U ARFX #### [facility] [address] [place] [address] Eosinophils/100 WBC (Bld) 0.3 % Normal 0.0-8.1 [facility] Comment on above: Performed By: #### U ARFX #### [facility] [address] [place] [address] Erythrocyte distribution width Ratio (RBC) 14.0 % Normal 12.0-15.4 [facility] Comment on above: Performed By: #### U ARFX #### [facility] [address] [place] [address] Hematocrit Volume Fraction (Bld) 32.8 % Low 36.5-46.6 [facility] Comment on above: Performed By: #### U ARFX #### [facility] [address] [place] [address] Hemoglobin mass conc (Bld) 10.8 g/dL Low 11.8-15.3 [facility] Comment on above: Performed By: #### U ARFX #### [facility] [address] [place] [address] Imm Grans Absolute 0.04 10*3/uL Normal 0.00-0.21 [facility] Comment on above: Performed By: #### U ARFX #### [facility] [address] [place] [address] Immature granulocytes #/vol (Bld) 0.4 % Normal [facility] Comment on above: Performed By: #### U ARFX #### [facility] [address] [place] [address] Lymphocytes #/vol (Bld) 1.96 10*3/uL Normal 0.40-2.84 [facility] Comment on above: Performed By: #### U ARFX #### [facility] [address] [place] [address] Lymphocytes/100 WBC (Bld) 19.6 % Normal 15.7-50.5 [facility] Comment on above: Performed By: #### U ARFX #### [facility] [address] [place] [address] MCH Entitic mass (RBC) 30.2 pg Normal 27.5-33.0 [facility] Comment on above: Performed By: #### U ARFX #### [facility] [address] [place] [address] MCHC mass conc (RBC) 32.9 g/dL Normal 30.1-35.0 [facility] Comment on above: Performed By: #### U ARFX #### [facility] [address] [place] [address] MCV Entitic volume (RBC) 91.6 fL Normal 85.4-100.0 [facility] Comment on above: Performed By: #### U ARFX #### [facility] [address] [place] [address] Monocytes #/vol (Bld) 1.00 10*3/uL High 0.25-0.83 [facility] Comment on above: Performed By: #### U ARFX #### [facility] [address] [place] [address] Monocytes/100 WBC (Bld) 10.0 % Normal 4.8-12.7 [facility] Comment on above: Performed By: #### U ARFX #### [facility] [address] [place] [address] Neutrophils Absolute 6.91 10*3/uL High 1.95-6.85 [facility] Comment on above: Performed By: #### U ARFX #### [facility] [address] [place] [address] Neutrophils/100 WBC (Bld) 69.3 % Normal 36.8-73.2 [facility] Comment on above: Performed By: #### U ARFX #### [facility] [address] [place] [address] NRBC Absolute 0.00 10*3/uL Normal [facility] Comment on above: Performed By: #### U ARFX #### [facility] [address] [place] [address] NRBC Automated 0.0 /100{WBCs} Normal [facility] Comment on above: Performed By: #### U ARFX #### [facility] [address] [place] [address] Platelet mean volume Entitic volume (Bld) 11.0 fL Normal 9.9-12.1 [facility] Comment on above: Performed By: #### U ARFX #### [facility] [address] [place] [address] Platelets #/vol (Bld) 186 10*3/uL Normal 155-404 [facility] Comment on above: Performed By: #### U ARFX #### [facility] [address] [place] [address] RBC #/vol (Bld) 3.58 10*6/uL Low 3.85-5.10 [facility] Comment on above: Performed By: #### U ARFX #### [facility] [address] [place], [place] [id number] RDW SD 46.7 fL Normal 39.3-48.6 [facility] Comment on above: Performed By: #### U ARFX #### [facility] [address] [place] [address] WBC #/vol (Bld) 10.0 10*3/uL High 4.4-9.9 [facility] Comment on above: Performed By: #### U ARFX #### [facility] [address] [place], [place] [id number] Drugs of Abuse, Urine(7)on 0 01-19-2019 Amphetamines/Metam phetamines, Urine Not Detected Normal [facility] Comment on above: Performed By: #### U ARFX #### [facility] [address] [place] [address] Barbiturates, Urine Not Detected Normal [facility] Comment on above: Performed By: #### U ARFX #### [facility] [address] [place] [address] Benzodiazepines, Urine Not Detected Normal [facility] Comment on above: Performed By: #### U ARFX #### [facility] [address] [place] [address] Cannabinoids, Urine Not Detected Normal [facility] Comment on above: Performed By: #### U ARFX #### [facility] [address] [place] [address] Cocaine, Urine Not Detected Normal [facility] Comment on above: Performed By: #### U ARFX #### [facility] [address] [place] [address] Methadone, Urine Not Detected Normal [facility] Comment on above: Performed By: #### U ARFX #### [facility] [address] [place] [address] Opiates, Urine Not Detected Normal [facility] Comment on above: Performed By: #### U ARFX #### [facility] [address] [place] [address] PCP, Urine Not Detected Normal [facility] [...] 25 Performed By: #### U ARFX #### [facility] [address] [place] [address] Pathology ([facility])on 01-19-2019 Pathology ([facility]) Copy To: KEYSHA [place] FINAL SURGICAL [...] SPECIMEN(S): (A) PLACENTA, THIRD TRIMESTER Performed at [facility], [address] [place] [address] GROSS DESCRIPTION: Received fresh, labeled with the [...] are noted. The surface is slightly opaque. [employer] sections of cord, membranes, and placenta are [...] above: Performed By: #### U ARFX #### [facility] [address] [place] [address] Type and Screenon 01-19-2019 Group and Rh Positive Normal [facility] Comment on above: Performed By: #### U ARFX #### [facility] [address] [place] [address] Urinalysison 01-19-2019 Amorphous Crystal Occasional Normal None [facility] Comment on above: Performed By: #### U ARFX #### [facility] [address] [place] [address] Appearance Nom (U) Cloudy Normal Clear [facility] Comment on above: Performed By: #### U ARFX #### [facility] [address] [place] [address] Ascorbic Acid Negative Normal Negative [facility] Comment on above: Performed By: #### U ARFX #### [facility] [address] [place] [address] Automated Urine Microscopy Performed Normal [facility] Comment on above: Performed By: #### U ARFX #### [facility] [address] [place] [address] Bacteria LM.HPF #/area (Urine sed) Occasional Normal None [facility] Comment on above: Performed By: #### U ARFX #### [facility] [address] [place] [address] Bilirubin mass conc Negative Normal Negative [facility] Comment on above: Performed By: #### U ARFX #### [facility] [address] [place] [address] Blood Negative Normal Negative [facility] Comment on above: Performed By: #### U ARFX #### [facility] [address] [place] [address] Color Nom (U) Yellow Normal [facility] Comment on above: Performed By: #### U ARFX #### [facility] [address] [place] [address] Glucose mass conc Negative Normal Negative [facility] Comment on above: Performed By: #### U ARFX #### [facility] [address] [place] [address] Ketones Ql (U) Negative Normal Negative [facility] Comment on above: Performed By: #### U ARFX #### [facility] [address] [place] [address] Leukocytes Esterase Large Abnormal Negative [facility] Comment on above: Performed By: #### U ARFX #### [facility] [address] [place] [address] Nitrite Ql (U) Negative Normal Negative [facility] Comment on above: Performed By: #### U ARFX #### [facility] [address] [place] [address] pH (Bld) 7.0 Normal 5.0-9.0 [facility] Comment on above: Performed By: #### U ARFX #### [facility] [address] [place] [address] Protein mass conc (U) Negative Normal Negative [facility] Comment on above: Performed By: #### U ARFX #### [facility] [address] [place] [address] RBC 11 /[HPF] Normal 0-3 [facility] Comment on above: Performed By: #### U ARFX #### [facility] [address] [place] [address] Specific gravity Relative Density (U) 1.010 Normal 1.003-1.035 [facility] Comment on above: Performed By: #### U ARFX #### [facility] [address] [place] [address] Squamous Epithelial Cells 29 /[HPF] Normal 0-5 [facility] Comment on above: Performed By: #### U ARFX #### [facility] [address] [place] [address] Urobilinogen Qn (U) 2.0 mg/dL Abnormal Negative [facility] Comment on above: Result Comment: Due to a manufacturing issue, low positive urobilinogen results may be falsely positive. Correlate with urine bilirubin and additional clinical/laboratory findings to assess the risk of hemolytic anemia or liver disease. If clinically indicated, repeat testing with an alternate method is available by contacting the laboratory within 24 hours. Performed By: #### U ARFX #### [facility] [address] [place], [place] [phone] WBC 32 /[HPF] Normal 0-5 [facility] Comment on above: Performed By: #### U ARFX #### [facility] [address] [place] [address] Culture, Group B Strep Scree non 12-25-2018 Culture, Group B Strep Screen BILL#: [id number] : 89 AGE: SEX: F AMBULATORY SOURCE: COLLECTED: 12/25/18 19:16 ANTIBIOTICS AT MISSY.: RECEIVED : 12/25/18 22:00 SITE: R E S U L T S GROUP B STREP SCREEN FINAL 12/27/18 08:44 NEGATIVE FOR GROUP B BETA STREP. Normal [facility] Comment on above: Performed By: #### C XBUR #### [facility] [address] [place] [address] Culture, Urine Bacterialon 0 12-25-2018 Culture, Urine Bacterial BILL#: [id number] : 89 AGE: SEX: F AMBULATORY SOURCE: URINE COLLECTED: 12/25/18 19:15 ANTIBIOTICS AT MISSY.: RECEIVED : 12/25/18 21:58 SITE: Unspecified R E S U L T S URINE CULTURE,BACTERIAL FINAL 12/26/18 15:49 NO SIGNIFICANT GROWTH. Normal [facility] Comment on above: Performed By: #### C XBUR #### [facility] [address] [place] [address] N. gonorrhoeae/C. trachomati s, Amplifiedon 12-25-2018 Chlamydia trachomatis, Amplified Negative Normal Negative [facility] Comment on above: Performed By: #### C XBUR #### [facility] [address] [place] [address] GC/CHLAM/TRICA Source Swab-Endocerv Normal [facility] Comment on above: Performed By: #### C XBUR #### [facility] [address] [place] [address] Neisseria gonorrhoeae, Amplified Negative Normal Negative [facility] Comment on above: Performed By: #### C XBUR #### [facility] [address] [place] [address] Trichmonas, Amplified Detect ionon 12-25-2018 Trichomonas, Amplified Negative Normal Negative [facility] Comment on above: Performed By: #### C XBUR #### [facility] [address] [place] [address] CBCon 12-11-2018 Erythrocyte distribution width Ratio (RBC) 13.0 % Normal 12.0-15.4 [facility] Comment on above: Performed By: #### C XBUR #### [facility] [address] [place] [address] Hematocrit Volume Fraction (Bld) 33.0 % Low 36.5-46.6 [facility] Comment on above: Performed By: #### C XBUR #### [facility] [address] [place] [address] Hemoglobin mass conc (Bld) 10.8 g/dL Low 11.8-15.3 [facility] Comment on above: Performed By: #### C XBUR #### [facility] [address] [place] [address] MCH Entitic mass (RBC) 29.8 pg Normal 27.5-33.0 [facility] Comment on above: Performed By: #### C XBUR #### [facility] [address] [place] [address] MCHC mass conc (RBC) 32.7 g/dL Normal 30.1-35.0 [facility] Comment on above: Performed By: #### C XBUR #### [facility] [address] [place] [address] MCV Entitic volume (RBC) 91.2 fL Normal 85.4-100.0 [facility] Comment on above: Performed By: #### C XBUR #### [facility] [address] [place] [address] NRBC Absolute 0.00 10*3/uL Normal [facility] Comment on above: Performed By: #### C XBUR #### [facility] [address] [place] [address] NRBC Automated 0.0 /100{WBCs} Normal [facility] Comment on above: Performed By: #### C XBUR #### [facility] [address] [place] [address] Platelet mean volume Entitic volume (Bld) 9.8 fL Low 9.9-12.1 [facility] Comment on above: Performed By: #### C XBUR #### [facility] [address] [place] [address] Platelets #/vol (Bld) 228 10*3/uL Normal 155-404 [facility] Comment on above: Performed By: #### C XBUR #### [facility] [address] [place] [address] RBC #/vol (Bld) 3.62 10*6/uL Low 3.85-5.10 [facility] Comment on above: Performed By: #### C XBUR #### [facility] [address] [place] [address] RDW SD 43.0 fL Normal 39.3-48.6 [facility] Comment on above: Performed By: #### C XBUR #### [facility] [address] [place] [address] WBC #/vol (Bld) 9.6 10*3/uL Normal 4.4-9.9 [facility] Comment on above: Performed By: #### C XBUR #### [facility] [address] [place] [address] Comprehensive Metabolic Pane shad 12-11-2018 Albumin mass conc 3.4 g/dL Normal 3.4-5.0 [facility] Comment on above: Performed By: #### C XBUR #### [facility] [address] [place] [address] Albumin/Globulin mass ratio 1.1 {ratio} Normal 0.9-2.4 [facility] Comment on above: Performed By: #### C XBUR #### [facility] [address] [place] [address] ALP enzyme act/vol 97 U/L Normal 45-117 [facility] Comment on above: Performed By: #### C XBUR #### [facility] [address] [place] [address] ALT enzyme act/vol 16 U/L Normal 7-45 [facility] Comment on above: Performed By: #### C XBUR #### [facility] [address] [place] [address] Anion gap molar conc 13 mmol/L Normal 10-20 [facility] Comment on above: Performed By: #### C XBUR #### [facility] [address] [place] [address] AST enzyme act/vol 14 U/L Normal 13-39 [facility] Comment on above: Performed By: #### C XBUR #### [facility] [address] [place] [address] Bilirubin mass conc 0.4 mg/dL Normal 0.0-1.2 [facility] Comment on above: Performed By: #### C XBUR #### [facility] [address] [place] [address] Calcium mass conc 8.8 mg/dL Normal 8.6-10.3 [facility] Comment on above: Performed By: #### C XBUR #### [facility] [address] [place] [address] Chloride molar conc 103 mmol/L Normal 98-107 [facility] Comment on above: Performed By: #### C XBUR #### [facility] [address] [place] [address] Creatinine mass conc 0.41 mg/dL Low 0.50-1.05 [facility] Comment on above: Performed By: #### C XBUR #### [facility] [address] [place] [address] GFR/1.73 sq M.predicted MDRD vol rate/area mL/min/{1.73_m2} Normal [facility] Comment on above: Result Comment: Inte rpretation for Chronic Kidney Disease: Stages 1&2 >60 Healthy or potential kidney damage. Mild decrease of GFR. Stage 3 30-59 Moderate decrease of GFR. Stage 4 15-29 Severe decrease of GFR. Stage 5 <15 Kidney failure or on dialysis. Performed By: #### C XBUR #### [facility] [address] [place] [address] Glucose mass conc 87 mg/dL Normal 70-100 [facility] Comment on above: Performed By: #### C XBUR #### [facility] [address] [place] [address] HCO3 molar conc (Bld) 26 mmol/L Normal 21-32 [facility] Comment on above: Performed By: #### C XBUR #### [facility] [address] [place] [address] Potassium molar conc 4.1 mmol/L Normal 3.5-5.1 [facility] Comment on above: Performed By: #### C XBUR #### [facility] [address] [place] [address] Protein mass conc 6.4 g/dL Normal 6.4-8.2 [facility] Comment on above: Performed By: #### C XBUR #### [facility] [address] [place] [address] Sodium molar conc 138 mmol/L Normal 136-145 [facility] Comment on above: Performed By: #### C XBUR #### [facility] [address] [place] [address] Urea nitrogen mass conc 5 mg/dL Low 6-23 [facility] Comment on above: Performed By: #### C XBUR #### [facility] [address] [place] [address] Urea nitrogen/Creatinin e mass ratio 12 mg/mg Normal 5-25 [facility] Comment on above: Performed By: #### C XBUR #### [facility] [address] [place] [address] Drugs of Abuse, Urine(7)on 0 12-11-2018 Amphetamines/Metam phetamines, Urine Not Detected Normal [facility] Comment on above: Performed By: #### C XBUR #### [facility] [address] [place] [address] Barbiturates, Urine Not Detected Normal [facility] Comment on above: Performed By: #### C XBUR #### [facility] [address] [place] [address] Benzodiazepines, Urine Not Detected Normal [facility] Comment on above: Performed By: #### C XBUR #### [facility] [address] [place] [address] Cannabinoids, Urine Not Detected Normal [facility] Comment on above: Performed By: #### C XBUR #### [facility] [address] [place] [address] Cocaine, Urine Not Detected Normal [facility] Comment on above: Performed By: #### C XBUR #### [facility] [address] [place] [address] Methadone, Urine Not Detected Normal [facility] Comment on above: Performed By: #### C XBUR #### [facility] [address] [place] [address] Opiates, Urine Not Detected Normal [facility] Comment on above: Performed By: #### C XBUR #### [facility] [address] [place] [address] PCP, Urine Not Detected Normal [facility] [...] 25 Performed By: #### C XBUR #### [facility] [address] [place] [address] Urinalysison 12-11-2018 Amorphous Crystal Occasional Normal None [facility] Comment on above: Performed By: #### C XBUR #### [facility] [address] [place] [address] Appearance Nom (U) Cloudy Normal Clear [facility] Comment on above: Performed By: #### C XBUR #### [facility] [address] [place] [address] Ascorbic Acid Negative Normal Negative [facility] Comment on above: Performed By: #### C XBUR #### [facility] [address] [place] [address] Automated Urine Microscopy Performed Normal [facility] Comment on above: Performed By: #### C XBUR #### [facility] [address] [place] [address] Bilirubin mass conc Negative Normal Negative [facility] Comment on above: Performed By: #### C XBUR #### [facility] [address] [place] [address] Blood Negative Normal Negative [facility] Comment on above: Performed By: #### C XBUR #### [facility] [address] [place] [address] Color Nom (U) Yellow Normal [facility] Comment on above: Performed By: #### C XBUR #### [facility] [address] [place] [address] Glucose mass conc Negative Normal Negative [facility] Comment on above: Performed By: #### C XBUR #### [facility] [address] [place] [address] Ketones Ql (U) Negative Normal Negative [facility] Comment on above: Performed By: #### C XBUR #### [facility] [address] [place] [address] Leukocytes Esterase Trace Abnormal Negative [facility] Comment on above: Performed By: #### C XBUR #### [facility] [address] [place] [address] Mucous Rare Normal None [facility] Comment on above: Performed By: #### C XBUR #### [facility] [address] [place] [address] Nitrite Ql (U) Negative Normal Negative [facility] Comment on above: Performed By: #### C XBUR #### [facility] [facility] [address] [place] [address] pH (Bld) 7.0 Normal 5.0-9.0 [facility] Comment on above: Performed By: #### C XBUR #### [facility] [address] [place] [address] Protein mass conc (U) Negative Normal Negative [facility] Comment on above: Performed By: #### C XBUR #### [facility] [address] [place] [address] RBC 3 /[HPF] Normal 0-3 [facility] Comment on above: Performed By: #### C XBUR #### [facility] [address] [place] [address] Specific gravity Relative Density (U) 1.014 Normal 1.003-1.035 [facility] Comment on above: Performed By: #### C XBUR #### [facility] [address] [place] [address] Squamous Epithelial Cells 23 /[HPF] Normal 0-5 [facility] Comment on above: Performed By: #### C XBUR #### [facility] [address] [place] [address] Urobilinogen Qn (U) <2.0 Normal Negative [facility] [...] hours. Performed By: #### C XBUR #### [facility] [address] [place] [address] WBC 3 /[HPF] Normal 0-5 [facility] Comment on above: Performed By: #### C XBUR #### [facility] [address] [place] [address] Drugs of Abuse, Urine(7)on 0 - Amphetamines/Metam phetamines, Urine Not Detected Normal [facility] Comment on above: Performed By: #### C XBUR #### [facility] [address] [place] [address] Barbiturates, Urine Not Detected Normal [facility] Comment on above: Performed By: #### C XBUR #### [facility] [address] [place] [address] Benzodiazepines, Urine Not Detected Normal [facility] Comment on above: Performed By: #### C XBUR #### [facility] [address] [place] [address] Cannabinoids, Urine Not Detected Normal [facility] Comment on above: Performed By: #### C XBUR #### [facility] [address] [place] [address] Cocaine, Urine Not Detected Normal [facility] Comment on above: Performed By: #### C XBUR #### [facility] [address] [place] [address] Methadone, Urine Not Detected Normal [facility] Comment on above: Performed By: #### C XBUR #### [facility] [address] [place] [address] Opiates, Urine Not Detected Normal [facility] Comment on above: Performed By: #### C XBUR #### [facility] [address] [place] [address] PCP, Urine Not Detected Normal [facility] [...] 25 Performed By: #### C XBUR #### [facility] [address] [place] [address] Urinalysison 12-01-2018 Appearance Nom (U) Clear Normal Clear [facility] Comment on above: Performed By: #### G CCHA #### [facility] [address] [place] [address] Ascorbic Acid Positive Normal Negative [facility] Comment on above: Result Comment: Pres ence of Ascorbic Acid may interfere with the detection of blood, glucose, nitrite, and bilirubin. Performed By: #### G CCHA #### [facility] [address] [place] [address] Automated Urine Microscopy Performed Normal [facility] Comment on above: Performed By: #### G CCHA #### [facility] [address] [place] [address] Bilirubin mass conc Negative Normal Negative [facility] Comment on above: Performed By: #### G CCHA #### [facility] [address] [place] [address] Blood Negative Normal Negative [facility] Comment on above: Performed By: #### G CCHA #### [facility] [address] [place] [address] Budding Yeast Rare Normal None [facility] Comment on above: Performed By: #### G CCHA #### [facility] [address] [place] [address] Color Nom (U) Yellow Normal [facility] Comment on above: Performed By: #### G CCHA #### [facility] [address] [place] [address] Glucose mass conc Negative Normal Negative [facility] Comment on above: Performed By: #### G CCHA #### [facility] [address] [place] [address] Ketones Ql (U) Negative Normal Negative [facility] Comment on above: Performed By: #### G CCHA #### [facility] [address] [place] [address] Leukocytes Esterase Small Abnormal Negative [facility] Comment on above: Performed By: #### G CCHA #### [facility] [address] [place] [address] Mucous Rare Normal None [facility] Comment on above: Performed By: #### [facility] #### [facility] [address] [place] [address] Nitrite Ql (U) Negative Normal Negative [facility] Comment on above: Performed By: #### [facility] #### [facility] [address] [place] [address] pH (Bld) 7.0 Normal 5.0-9.0 [facility] Comment on above: Performed By: #### [facility] #### [facility] [address] [place] [address] Protein mass conc (U) Negative Normal Negative [facility] Comment on above: Performed By: #### [facility] #### [facility] [address] [place] [address] RBC 3 /[HPF] Normal 0-3 [facility] Comment on above: Performed By: #### [facility] #### [facility] [address] [place] [address] Specific gravity Relative Density (U) 1.016 Normal 1.003-1.035 [facility] Comment on above: Performed By: #### [facility] #### [facility] [address] [place] [address] Squamous Epithelial Cells 12 /[HPF] Normal 0-5 [facility] Comment on above: Performed By: #### [facility] #### [facility] [address] [place] [address] Urobilinogen Qn (U) <2.0 Normal Negative [facility] [...] hours. Performed By: #### G CCHA #### [facility] [address] [place] [address] WBC 2 /[HPF] Normal 0-5 [facility] Comment on above: Performed By: #### G CCHA #### [facility] [address] [place] [address] Vaginal Pathogen DNAon 12-01 Estrada Vag DNA Probe Positive Abnormal Negative [facility] Comment on above: Performed By: #### C XBUR #### [facility] [address] [place] [address] Protein mass conc Negative Normal Negative [facility] Comment on above: Performed By: #### C XBUR #### [facility] [address] [place] [address] Trich Vag DNA Probe Negative Normal Negative [facility] Comment on above: Performed By: #### C XBUR #### [facility] [address] [place] [address] Ferritinon 11-13-2018 Ferritin mass conc 6 ng/mL Low 8-150 [facility] Comment on above: Performed By: #### G CCHA #### [facility] [address] [place] [address] Folate/B12on 11-13-2018 Cobalamin (Vitamin B12) mass conc 239 pg/mL Normal 211-911 [facility] Comment on above: Performed By: #### G CCHA #### [facility] [address] [place] [address] Folate 21.10 ng/mL Normal [facility] Comment on above: Result Comment: Norm al Range >5.0 Performed By: #### G CCHA #### [facility] [address] [place] [address] N. gonorrhoeae/C. trachomati s, Amplifiedon 11-13-2018 Chlamydia trachomatis, Amplified Negative Normal Negative [facility] Comment on above: Performed By: #### [facility] #### [facility] [address] [place] [address] GC/CHLAM/TRICA Source Swab-Endocerv Normal [facility] Comment on above: Performed By: #### [facility] #### [facility] [address] [place] [address] Neisseria gonorrhoeae, Amplified Negative Normal Negative [facility] Comment on above: Performed By: #### [facility] #### [facility] [address] [place] [address] Vaginal Pathogen DNAon 11-13 Estrada Vag DNA Probe Positive Abnormal Negative [facility] Comment on above: Performed By: #### [facility] #### [facility] [address] [place] [address] Protein mass conc Positive Abnormal Negative [facility] Comment on above: Performed By: #### [facility] #### [facility] [address] [place] [address] Trich Vag DNA Probe Negative Normal Negative [facility] Comment on above: Performed By: #### [facility] #### [facility] [address] [place] [address] CBCon 10-24-2018 Erythrocyte distribution width Ratio (RBC) 13.2 % Normal 12.0-15.4 [facility] Comment on above: Performed By: #### [facility] #### [facility] [address] [place] [address] Hematocrit Volume Fraction (Bld) 31.3 % Low 36.5-46.6 [facility] Comment on above: Performed By: #### [facility] #### [facility] [address] [place] [address] Hemoglobin mass conc (Bld) 10.3 g/dL Low 11.8-15.3 [facility] Comment on above: Performed By: #### [facility] #### [facility] [address] [place] [address] MCH Entitic mass (RBC) 30.0 pg Normal 27.5-33.0 [facility] Comment on above: Performed By: #### [facility] #### [facility] [address] [place] [address] MCHC mass conc (RBC) 32.9 g/dL Normal 30.1-35.0 [facility] Comment on above: Performed By: #### [facility] #### [facility] [address] [place] [address] MCV Entitic volume (RBC) 91.3 fL Normal 85.4-100.0 [facility] Comment on above: Performed By: #### G CCHA #### [facility] [address] [place] [address] NRBC Absolute 0.00 10*3/uL Normal [facility] Comment on above: Performed By: #### [facility] #### [facility] [address] [place] [address] NRBC Automated 0.0 /100{WBCs} Normal [facility] Comment on above: Performed By: #### G CCHA #### [facility] [address] [place] [address] Platelet mean volume Entitic volume (Bld) 10.2 fL Normal 9.9-12.1 [facility] Comment on above: Performed By: #### G CCHA #### [facility] [address] [place] [address] Platelets #/vol (Bld) 233 10*3/uL Normal 155-404 [facility] Comment on above: Performed By: #### G CCHA #### [facility] [address] [place] [address] RBC #/vol (Bld) 3.43 10*6/uL Low 3.85-5.10 [facility] Comment on above: Performed By: #### G CCHA #### [facility] [address] [place] [address] RDW SD 44.4 fL Normal 39.3-48.6 [facility] Comment on above: Performed By: #### G CCHA #### [facility] [address] [place] [address] WBC #/vol (Bld) 8.8 10*3/uL Normal 4.4-9.9 [facility] Comment on above: Performed By: #### G CCHA #### [facility] [address] [place] [address] Glucose, 1 H Post 50 Gram (P regnancy Screen)on 10-24-2018 Glucose, 1 H Post 50 Gram ( Screen) 114 mg/dL Normal 55-140 [facility] Comment on above: Performed By: #### G CCHA #### [facility] [address] [place] [address] N. gonorrhoeae/C. trachomati s, Amplifiedon 10-16-2018 Chlamydia trachomatis, Amplified Positive Abnormal Negative [facility] Comment on above: Performed By: #### G CCHA #### [facility] [address] [place] [address] GC/CHLAM/TRICA Source Urine Normal [facility] Comment on above: Performed By: #### G CCHA #### [facility] [address] [place] [address] Neisseria gonorrhoeae, Amplified Positive Abnormal Negative [facility] Comment on above: Performed By: #### [facility] #### [facility] [address] [place] [address] CBCon 09-18-2018 Erythrocyte distribution width Ratio (RBC) 13.5 % Normal 12.0-15.4 [facility] Comment on above: Performed By: #### 2 [id number] #### [facility] [address] [place] [address] Hematocrit Volume Fraction (Bld) 34.6 % Low 36.5-46.6 [facility] Comment on above: Performed By: #### 2 [id number] #### [facility] [address] [place] [address] Hemoglobin mass conc (Bld) 11.3 g/dL Low 11.8-15.3 [facility] Comment on above: Performed By: #### 2 [id number] #### [facility] [address] [place] [address] MCH Entitic mass (RBC) 29.5 pg Normal 27.5-33.0 [facility] Comment on above: Performed By: #### 2 [id number] #### [facility] [address] [place] [address] MCHC mass conc (RBC) 32.7 g/dL Normal 30.1-35.0 [facility] Comment on above: Performed By: #### 2 [id number] #### [facility] [address] [place] [address] MCV Entitic volume (RBC) 90.3 fL Normal 85.4-100.0 [facility] Comment on above: Performed By: #### 2 [id number] #### [facility] [address] [place] [address] NRBC Absolute 0.00 10*3/uL Normal [facility] Comment on above: Performed By: #### 2 [id number] #### [facility] [address] [place] [address] NRBC Automated 0.0 /100{WBCs} Normal [facility] Comment on above: Performed By: #### 2 [id number] #### [facility] [address] [place] [address] Platelet mean volume Entitic volume (Bld) 10.7 fL Normal 9.9-12.1 [facility] Comment on above: Performed By: #### 2 [id number] #### [facility] [address] [place] [address] Platelets #/vol (Bld) 255 10*3/uL Normal 155-404 [facility] Comment on above: Performed By: #### 2 [id number] #### [facility] [address] [place] [address] RBC #/vol (Bld) 3.83 10*6/uL Low 3.85-5.10 [facility] Comment on above: Performed By: #### 2 [id number] #### [facility] [address] [place] [address] RDW SD 44.2 fL Normal 39.3-48.6 [facility] Comment on above: Performed By: #### 2 [id number] #### [facility] [address] [place] [address] WBC #/vol (Bld) 8.8 10*3/uL Normal 4.4-9.9 [facility] Comment on above: Performed By: #### 2 [id number] #### [facility] [address] [place] [address] Culture, Urine Bacterialon 1 11-18-2017 Culture, Urine Bacterial BILL#: [id number] : 89 AGE: SEX: F AMBULATORY SOURCE: URINE COLLECTED: 09/18/18 19:09 ANTIBIOTICS AT MISSY.: RECEIVED : 09/18/18 22:53 SITE: Unspecified R E S U L T S URINE CULTURE,BACTERIAL FINAL 09/19/18 16:24 NO SIGNIFICANT GROWTH. Normal [facility] Comment on above: Performed By: #### U ARFX #### [facility] [address] [place] [address] Cystic Fibrosis, 165 Variant on 09-18-2018 CF 165 Variant Interp. 0 variants Normal [facility] Comment on above: Result Comment: None [...] 1 in 61 1 in 275 Ashkenazi Synagogue 96% 1 in 24 1 in 575 Togolese 55% 1 in 94 1 in 210 92% 1 in 25 1 in 300 Togolese 80% 1 in 58 1 in 285 [...] or bronchiectasis. INCIDENCE: 1 in 2,300 Ashkenazi Synagogue, 1 in 2,500 Caucasians, 1 in 13,500 [...] for the 23 recommended ACMG variants. c.1A>G, p.Iag0Yel; c.58-4163_560+75441dce, Exons 2-3del; c.115C>T, p.Gln39X; c.178G>T, p.Glu60X; c.200C>T, p.Psk29Plv; c.223C>T, p.Arg75X; c.254G>A (Legacy G85E), p.Ejh18Gvu; c.262_263delTT, p.Kef95KydctB95 (aka p.Crw24ge); c.273+1G>A, Intronic; c.273+3A>C, Intronic; c.274-1G>A, Intronic; c.274G>A, p.Mla74Opd; c.274G>T, p.Glu92X; c.292C>T, p.Gln98X; c.313delA, p.Usz847MdjurT2 (aka p.Fqr491bm); c.325_327delTATinsG, p.Wsg496ZatorL4 (aka p.Hdg363ir); c.328G>C, p.Lcn639Zpp; c.349C>T, p.Fuk613Arb; c.350G>A (Legacy R117H), p.Xhr164Vgd; c.366T>A, p.Abs884Y; c.442delA, p.Uxc364FajpvA3 (aka p.Zvd798iu); c.489+1G>T (Legacy 621+1G>T), Intronic; c.531delT, p.Kkv076ZitqbZ00 (aka p.Roa667nu); c.532G>A, p.Elm887Sfs; c.579+1G>T (Legacy 711+1G>T), Intronic; c.579+5G>A, Intronic; c.579+3A>G, Intronic; c.580-1G>T, Intronic; c.595C>T, p.Pua545Gzg; c.613C>T, p.Qxc941Duu; c.617T>G, p.Tqk820Yid; c.658C>T, p.Snt826E; c.680T>G, p.Ojo193Odb; c.720_741delAGGGAGAATGATGATGAAGTAC, p.Nez562EyrsvG68 (aka p.Vvj352fm); c.803delA, p.Iws361OtxizX33 (aka p.Ret794hz); c.805_806delAT, p.Tjd894DmqrgA7 (aka p.Vif101xn); c.933_935delCTT, p.Xag338rwc; c.948delT, p.Hnn419WlwgnS28 (aka p.Ban286cg); c.988G>T, p.Mro210H; c.1000C>T (Legacy R334W), p.Tai833Gcj; c.1007T>A, p.Rqi846Mku; c.1021T>C, p.Sha444Vcs; c.1022_1023insTC, p.Wkn114JlilsX71 (aka p.Dgh753uz); c.1040G>A, p.Utc244Vja; c.1040G>C (Legacy R347P), p.Wvh867Xnp; c.1055G>A, p.Idz292Gui; c.1081delT, p.Lvj530OpmnsA5 (aka p.Ert468ha); c.1116+1G>A, Intronic; c.1127_1128insA, p.Deo217UjsavO0 (aka p.Qfw467qm); c.1153_1154insAT, p.Mkx384AyomsH6 (aka p.Qpu638nz); c.1202G>A, p.Qrz694J; c.1203G>A, p.Jlw132G; c.1209+1G>A, Intronic; c.1329_1330insAGAT, p.Pmw277SzryoY7 (aka p.Fsd416kx); c.1340delA, p.Bat546DdrwaQ3 (aka p.Qlg944fe); c.1364C>A (Legacy A455E), p.Khv741Nst; c.1393-1G>A, Intronic; c.1397C>A, p.Xxi728V; c.1397C>G, p.Vec351Q; c.1400T>C, p.Nmz377Fbb; c.1418delG, p.Ggm728HlqqjJ63 (aka p.Kfs712vp); c.1438G>T, p.Mjf803Cxo; c.1466C>A, p.Zqb959I; c.1475C>T, p.Mae435Xac; c.1477C>T, p.Jpj566Q; c.1519_1521delATC (Legacy M884oty), p.Ghc771qik; c.1521_1523delCTT (Legacy S399anz), p.Bpd889btj; c.1545_1546delTA, p.Opn722L; c.1558G>T, p.Jnf153Pkd; c.1572C>A, p.Yme832M; c.1573C>T, p.Hjc946H; c.1585-1G>A (Legacy 1717-1G>A), Intronic; c.1585-8G>A, Intronic; c.1624G>T (Legacy G542X), p.Rjd606N; c.1645A>C, p.Qgm327Bbb; c.1646G>A, p.Ejm561Jss; c.1647T>G, p.Sjg490Eqs; c.1651G>A, p.Cbw784Sip; c.1652G>A (Legacy G551D), p.Tts367Swr; c.1654C>T, p.Tfg486I; c.1657C>T (Legacy R553X), p.Lao803T; c.1675G>A, p.Lfh978Bqv; c.1679G>A, p.Qny939Jwj; c.1679G>C (Legacy R560T), p.Dip410Way; c.1679+1.6kbA>G, Intronic; c.1680-1G>A, Intronic; c.1703delT, p.Aci730UtbqiF5 (aka p.Yti574jp); c.1705T>G, p.Sfg384Vzx; c.1721C>A, p.Mce774Fez; c.1753G>T, p.Ikl620T; c.1766+1G>A (Legacy 1898+1G>A), Intronic; c.1766+3A>G, Intronic; c.1792_1798delAAAACTA, p.Lkv562VgptbN49 (aka p.Suc151gr); c.1911delG, p.Zsm151XguaqS43 (aka p.Irk488lz); c.1923_1931del9insA, p.Qgl807AsfeoQ6 (aka p.Zyu679se); c.del13insAGAAA, p.Apv473IouiyA1 (aka p.Hbm350gg); c.1975delA, p.Mmf082WixllA0 (aka p.Ztv144xn); c.2011delT, p.Chc579K; c.2050_2del, p.Vdh547HhgrjO9; c.2050_elinsG (aka c.205_elinsG), p.Svn229ErgsmC87; c.2delA (Legacy 2184delA), p.Tcb314IqwiyT20; c.2125C>T, p.Xtb387Q; c.2128A>T, p.Lku244F; c.2175_2176insA, p.Nfb681LyhssJ6 (aka p.Uwo842he); c.2195T>G, p.Mrf975Y; c.2215delG, p.Xmf905RdoxoR87 (aka p.Zbi382uk); c.2290C>T, p.Laj543Rwh; c.2453delT, p.Uan351NdlcmW8 (aka p.Rmk212kh); c.2464G>T, p.Ouk274Y; c.2490+1G>A, Intronic; c.2491G>T, p.Qvf663A; c.2537G>A, p.Rkf584F; c.2538G>A, p.Kfm750Z; c.2551C>T, p.Msa582L; c.2583delT, p.Ybm725PqemvY4 (aka p.Vao752ck); c.2657+5G>A (Legacy 2789+5G>A), Intronic; c.2668C>T, p.Tgr797N; c.2737_2738insG, p.Den144O; c.2780T>C, p.Saz885Ebf; c.2810_2811insT, p.Lxl544FxqcqG92 (aka p.Sds254lw); c.2834C>T, p.Dhk994Etz; c.2875delG, p.Ixj307PzpfeA2 (aka p.Xzx292sb); c.2908G>C, p.Ttk572Enc; c.2988+1G>A (Legacy 3120+1G>A), Intronic; c.2988G>A, Intronic; c.2989-1G>A, Intronic; c.3039delC, p.Zqe7926QlyopH3 (aka p.Jzm4014en); c.3067_3072delATAGTG, p.Law0101_Cpu7294eqt (aka O1786_E5912unw); c.3140-26A>G, Intronic; c.3194T>C, p.Pjk9096Hqd; c.3196C>T, p.Ssn0813Uri; c.3197G>A, p.Jvh5962Xua; c.3230T>C, p.Yub6643Ubj; c.3266G>A, p.Brh8371B; c.3276C>A, p.Zdl8147I; c.3276C>G, p.Yxl1580R; c.3302T>A, p.Gng1147Txi; c.3310G>T, p.Ubk6219J; c.3472C>T, p.Exu6368A; c.3484C>T (Legacy V0613F), p.Ixn4222E; c.3528delC (Legacy 3659delC), p.Neu5638RaljcW10 (aka p.Yjs4589mt); c.3536_3539del, p.Wvh5570QxqouN64 (aka p.Wek5581hz); c.3587C>G, p.Oav6246S; c.3611G>A, p.Zts0316I; c.3612G>A, p.Hha9410K; c.3659delC, p.Kjw0418FwovvA0 (aka p.Fsc6260nz); c.3691delT, p.Xpg2760NlhfuZ5 (aka p.Rhy5848tc); c.3712C>T, p.Edv1367X; c.9798-6159C>T (Legacy 3849+10kbC>T), Intronic; c.3731G>A, p.Iyc5782Vdq; c.3744delA, p.Uzj5889EuzidJ8 (aka p.Gyt5939qe); c.3752G>A, p.Hcd0617Bxf; c.3763T>C, p.Vey9795Ceg; c.3764C>A, p.Kjr0333J; c.3773_3774insT, p.Lwl1127WysnaA1 (aka p.Wzk4015yk); c.3846G>A (Legacy T2602I), p.Ltq6182E; c.3873+1G>A, Intronic; c.3909C>G (Legacy H7600S), p.Irz6764Dzc; c.3937C>T, p.Tpi5354F; c.3964-78_4242+577del, Exons 22-23del; c.4028delG, p.Kfv8421MjqgzF2 (aka p.Ozk8325sd); c.4046G>A, p.Jip4553Upd; c.4077_4080delTGTTinsAA, p.Eyp4125hbL5 (aka p.Vsw3257hj); c.4111G>T, p.Uyc5110D; c.4251delA, p.Lmk5675DqbfpI03 (aka p.Ghc9648jp). The IVS-8 variant, c.1210-12[5], will be reported only when R117H is detected or in patients who are reported to be symptomatic. CLINICAL SENSITIVITY: Ashkenazi Synagogue 96 percent; 92 percent; 80 percent; 78 percent; Togolese 55 percent. METHODOLOGY: Polymerase chain reaction (PCR) and fluorescence monitoring. Analytical Sensitivity & Specificity: 99 percent. LIMITATIONS: Diagnostic errors can occur due to rare sequence variations. Only the 165 pathogenic CFTR variants and 5T variant (listed above) will be interrogated. See Compliance Statement C: [email or web address] Performed by [facility], [address] [place] [id number] [email or web address], Robert Fraire MD - Lab. Director Performed By: #### U ARFX #### [facility] [address] [place] [address] CF 5T Variant Not Applicable Normal [facility] Comment on above: Performed By: #### U ARFX #### [facility] [address] [place] [address] CF Allele 1 Negative Normal [facility] Comment on above: Performed By: #### U ARFX #### [facility] [address] [place] [address] CF Allele 2 Negative Normal [facility] Comment on above: Performed By: #### U ARFX #### [facility] [address] [place] [address] CF Specimen Type Whole Blood Normal [facility] Comment on above: Performed By: #### U ARFX #### [facility] [address] [place] [address] CF Symptom No Normal [facility] Comment on above: Performed By: #### U ARFX #### [facility] [address] [place] [address] Ethnicity Normal [facility] Comment on above: Performed By: #### U ARFX #### [facility] [address] [place] [address] Family History No Normal [facility] Comment on above: Performed By: #### U ARFX #### [facility] [address] [place] [address] Drugs of Abuse, Urine(7)on 11-18-2017 Amphetamines/Metam phetamines, Urine Not Detected Normal [facility] Comment on above: Performed By: #### U ARFX #### [facility] [address] [place] [address] Barbiturates, Urine Not Detected Normal [facility] Comment on above: Performed By: #### U ARFX #### [facility] [address] [place] [address] Benzodiazepines, Urine Not Detected Normal [facility] Comment on above: Performed By: #### U ARFX #### [facility] [address] [place] [address] Cannabinoids, Urine Not Detected Normal [facility] Comment on above: Performed By: #### U ARFX #### [facility] [address] [place] [address] Cocaine, Urine Not Detected Normal [facility] Comment on above: Performed By: #### U ARFX #### [facility] [address] [place] [address] Methadone, Urine Not Detected Normal [facility] Comment on above: Performed By: #### U ARFX #### [facility] [address] [place] [address] Opiates, Urine Not Detected Normal [facility] Comment on above: Performed By: #### U ARFX #### [facility] [address] [place] [address] PCP, Urine Not Detected Normal [facility] Comment on above: Result Comment: Urin e toxicology screen results are to be used for medical purposes only. It is recommended that any result reported as Detected be confirmed by a more specific alternative chemical method. Drug Analyzed Cutoff Concentration(ng/mL) Barbiturates 200 Benzodiazepines 200 Cocaine 150 Opiates 300 Amphetamines 500 Cannabinoids 50 Methadone 150 PCP 25 Performed By: #### U ARFX #### [facility] [address] [place] [address] HIV 1 Ab, Conf WBloton 09-18 HIV 1 Ab, Conf WBlot Negative Normal Negative [facility] Comment on above: Result Comment: HIV- [...] Cellular and Tissue-Based Products (HCT/P). Performed by [facility], [address] [place] [id number] [email or web address], Robert Fraire MD - Lab. Director Performed By: #### U ARFX #### [facility] [address] [place] [address] Hemoglobin Identificationon 09-18-2018 Hemoglobin A2 2.8 % Normal [facility] Comment on above: Result Comment: HGB A2 values may be falsely elevated in the presence of HGB S Hemoglobin F 0.6 % Normal [facility] Hemoglobin mass conc (Bld) 96.6 % Normal [facility] Hemoglobin mass conc (Bld) SEE COMMENT Normal [facility] Comment on above: Result Comment: Norm al Hepatitis B Surface Antigeno n 09-18-2018 Hepatitis B Surface Antigen NONREACTIVE Normal NONREACTIVE [facility] Comment on above: Result Comment: Carrie ents receiving more than 5 mg/day of biotin may have interf in test results. A sample should be taken no sooner than eight after previous dose. Contact [phone] for additional infor Hepatitis C Antibody w/rfx t o Confirmon 09-18-2018 Hepatitis C Antibody NON-REACTIVE Normal NONREACTIVE [facility] Comment on above: Result Comment: Carrie ents receiving more than 5 mg/day of biotin may have interf in test results. A sample should be taken no sooner than eight after previous dose. Contact [phone] for additional infor Rubella Ab, IgGon 09-18-2018 Rubella Ab, IgG 16 IU/ML Normal [facility] Comment on above: Result Comment: REF VALUES NON-IMMUNE: < 5 EQUIVOCAL: 5-9 IMMUNE: >=10 Syphilis IgG w/Rflx toTiter, TP-PAon 09-18-2018 Syphilis IgG w/Rflx toTiter,TP-PA NON REACTIVE Normal NONREACTIVE [facility] Comment on above: Result Comment: Carrie ents receiving more than 5 mg/day of biotin may have interf in test results. A sample should be taken no sooner than eight after previous dose. Contact [phone] for additional infor TSHon 09-18-2018 Thyrotropin Qn 0.54 mU/L Normal 0.44-3.98 [facility] Comment on above: Performed By: #### U ARFX #### [facility] [address] [place] [address] Type and Screenon 09-18-2018 Group and Rh Positive Normal [facility] Comment on above: Performed By: #### T S3 #### [facility] [address] [place] [address] VZV Ab, IgGon 09-18-2018 VZV Ab, IgG [...] Vitamin D, 25 Hydroxy 26 ng/mL Abnormal [facility] Comment on above: Result Comment: DEFI CIENCY <20 INSUFFICIENCY 20-29 OPTIMUM LEVEL 30-80 POSSIBLE TOXICITY >80 Performed By: #### U ARFX #### [facility] [address] [place] [address] Culture, Urine Bacterialon 1 11-09-2017 Culture, Urine Bacterial BILL#: [id number] : 89 AGE: SEX: Primitivo COLÓN SOURCE: URINE COLLECTED: 09/09/18 13:19 ANTIBIOTICS AT MISSY.: RECEIVED : 09/09/18 22:34 SITE: Unspecified R E S U L T S URINE CULTURE,BACTERIAL FINAL 09/10/18 15:13 NO SIGNIFICANT GROWTH. Normal [facility] Comment on above: Performed By: #### C XBUR #### [facility] [address] [place] [id number] N. gonorrhoeae/C. trachomati s, Amplifiedon 09-09-2018 Chlamydia trachomatis, Amplified Negative Normal Negative [facility] Comment on above: Performed By: #### G CCHA #### [facility] [address] [place] [address] GC/CHLAM/TRICA Source Swab-Endocerv Normal [facility] Comment on above: Performed By: #### G CCHA #### [facility] [address] [place] [address] Neisseria gonorrhoeae, Amplified Negative Normal Negative [facility] Comment on above: Performed By: #### G CCHA #### [facility] [address] [place] [address] Urinalysis with Reflex Cultu reon 09-09-2018 Appearance Nom (U) Hazy Normal Clear [facility] Comment on above: Performed By: #### U ARFX #### [facility] [address] [place] [address] Ascorbic Acid Negative Normal Negative [facility] Comment on above: Performed By: #### U ARFX #### [facility] [address] [place] [address] Automated Urine Microscopy Performed Normal [facility] Comment on above: Performed By: #### U ARFX #### [facility] [address] [place] [address] Bacteria LM.HPF #/area (Urine sed) Few Normal None [facility] Comment on above: Performed By: #### U ARFX #### [facility] [address] [place] [address] Bilirubin mass conc Negative Normal Negative [facility] Comment on above: Performed By: #### U ARFX #### [facility] [address] [place] [address] Blood Negative Normal Negative [facility] Comment on above: Performed By: #### U ARFX #### [facility] [address] [place] [address] Color Nom (U) Yellow Normal [facility] Comment on above: Performed By: #### U ARFX #### [facility] [address] [place] [address] Glucose mass conc Negative Normal Negative [facility] Comment on above: Performed By: #### U ARFX #### [facility] [address] [place] [address] Ketones Ql (U) Negative Normal Negative [facility] Comment on above: Performed By: #### U ARFX #### [facility] [address] [place] [address] Leukocytes Esterase Large Abnormal Negative [facility] Comment on above: Performed By: #### U ARFX #### [facility] [address] [place] [address] Mucous Rare Normal None [facility] Comment on above: Performed By: #### U ARFX #### [facility] [address] [place] [address] Nitrite Ql (U) Negative Normal Negative [facility] Comment on above: Performed By: #### U ARFX #### [facility] [address] [place] [address] pH (Bld) 6.0 Normal 5.0-9.0 [facility] Comment on above: Performed By: #### U ARFX #### [facility] [address] [place] [address] Protein mass conc (U) Negative Normal Negative [facility] Comment on above: Performed By: #### U ARFX #### [facility] [address] [place] [address] RBC 5 /[HPF] Normal 0-3 [facility] Comment on above: Performed By: #### U ARFX #### [facility] [address] [place] [address] Specific gravity Relative Density (U) 1.019 Normal 1.003-1.035 [facility] Comment on above: Performed By: #### U ARFX #### [facility] [address] [place] [address] Squamous Epithelial Cells 12 /[HPF] Normal 0-5 [facility] Comment on above: Performed By: #### U ARFX #### [facility] [address] [place] [address] Urobilinogen Qn (U) 2.0 mg/dL Abnormal Negative [facility] Comment on above: Performed By: #### U ARFX #### [facility] [address] [place] [address] WBC 6 /[HPF] Normal 0-5 [facility] Comment on above: Performed By: #### U ARFX #### [facility] [address] [place] [address] Vaginal Pathogen DNAon 11-06 -2018 Estrada Vag DNA Probe Positive Abnormal Negative [facility] Comment on above: Performed By: #### V AGPA #### [facility] [address] [place] [address] Protein mass conc Positive Abnormal Negative [facility] Comment on above: Performed By: #### V AGPA #### [facility] [address] [place] [address] Trich Vag DNA Probe Positive Abnormal Negative [facility] Comment on above: Performed By: #### V AGPA #### [facility] [address] [place] [address] Culture, Urine Bacterialon 0 07-30-2018 Culture, Urine Bacterial BILL#: [id number] : 89 AGE: SEX: F CAROL SOURCE: URINE COLLECTED: 07/30/18 17:03 ANTIBIOTICS AT MISSY.: RECEIVED : 07/30/18 22:34 SITE: Unspecified R E S U L T S URINE CULTURE,BACTERIAL FINAL 07/31/18 15:35 NO SIGNIFICANT GROWTH. Normal [facility] Comment on above: Performed By: #### C XBUR #### [facility] [address] [place] [address] N. gonorrhoeae/C. trachomati s, Amplifiedon 07-30-2018 Chlamydia trachomatis, Amplified Negative Normal Negative [facility] Comment on above: Performed By: #### [facility] #### [facility] [address] [place] [address] GC/CHLAM/TRICA Source Urine Normal [facility] Comment on above: Performed By: #### G CCHA #### [facility] [address] [place] [address] Neisseria gonorrhoeae, Amplified Negative Normal Negative [facility] Comment on above: Performed By: #### G CCHA #### [facility] [address] [place] [address] Urinalysis with Reflex Cultu reon 07-30-2018 Appearance Nom (U) Clear Normal Clear [facility] Comment on above: Performed By: #### U ARFX #### [facility] [address] [place] [address] Ascorbic Acid Negative Normal Negative [facility] Comment on above: Performed By: #### U ARFX #### [facility] [address] [place] [address] Automated Urine Microscopy Performed Normal [facility] Comment on above: Performed By: #### U ARFX #### [facility] [address] [place] [address] Bacteria LM.HPF #/area (Urine sed) Rare Normal None [facility] Comment on above: Performed By: #### U ARFX #### [facility] [address] [place] [address] Bilirubin mass conc Negative Normal Negative [facility] Comment on above: Performed By: #### U ARFX #### [facility] [address] [place] [address] Blood Negative Normal Negative [facility] Comment on above: Performed By: #### U ARFX #### [facility] [address] [place] [address] Color Nom (U) Yellow Normal [facility] Comment on above: Performed By: #### U ARFX #### [facility] [address] [place] [address] Glucose mass conc Negative Normal Negative [facility] Comment on above: Performed By: #### U ARFX #### [facility] [address] [place] [address] Ketones Ql (U) Negative Normal Negative [facility] Comment on above: Performed By: #### U ARFX #### [facility] [address] [place] [address] Leukocytes Esterase Moderate Abnormal Negative [facility] Comment on above: Performed By: #### U ARFX #### [facility] [address] [place] [address] Mucous Rare Normal None [facility] Comment on above: Performed By: #### U ARFX #### [facility] [address] [place] [address] Nitrite Ql (U) Negative Normal Negative [facility] Comment on above: Performed By: #### U ARFX #### [facility] [address] [place] [address] pH (Bld) 6.0 Normal 5.0-9.0 [facility] Comment on above: Performed By: #### U ARFX #### [facility] [address] [place] [address] Protein mass conc (U) Negative Normal Negative [facility] Comment on above: Performed By: #### U ARFX #### [facility] [address] [place] [address] RBC 3 /[HPF] Normal 0-3 [facility] Comment on above: Performed By: #### U ARFX #### [facility] [address] [place] [address] Specific gravity Relative Density (U) 1.016 Normal 1.003-1.035 [facility] Comment on above: Performed By: #### U ARFX #### [facility] [address] [place] [address] Squamous Epithelial Cells 3 /[HPF] Normal 0-5 [facility] Comment on above: Performed By: #### U ARFX #### [facility] [address] [place] [address] Urobilinogen Qn (U) >=4.0 Abnormal Negative [facility] Comment on above: Performed By: #### U ARFX #### [facility] [address] [place] [address] WBC 16 /[HPF] Normal 0-5 [facility] Comment on above: Performed By: #### U ARFX #### [facility] [address] [place] [address] FOOT RT 3 OR MORE VWon 05-20 FOOT RT 3 OR MORE VW DATE OF EXAM: May 19 2018 11:20PM CLINICAL HISTORY/ Patient Name: JULIETTE HERNÁNDEZ STUDY: FOOT RT 3 OR MORE VW; 05/19/2018 11:20 pm INDICATION: Trauma. Pain COMPARISON: None. ACCESSION NUMBER(S): [id number] ORDERING CLINICIAN: LUIS CASTRO FINDINGS: Osseous structures and soft tissues appear normal. No fracture or dislocation is noted CONCLUSION: IMPRESSION: Normal right foot Normal [facility] Vital Signs Date Time Vital Sign Value Performing Clinician Facility 02-21-2024 10:39-0400 Body height 167.6 cm Chacorta Erwin MD Work Phone: [facility] 02-21-2024 10:39-0400 Body mass index (BMI) [Ratio] 22.6 kg/m2 Chacorta Erwin MD Work Phone: [facility] 02-21-2024 10:39-0400 Body temperature 97.3 [degF] Chacorta Erwin MD Work Phone: [facility] 02-21-2024 10:39-0400 Body weight 63.5 kg Chacorta Erwin MD Work Phone: [facility] 02-21-2024 10:39-0400 Diastolic blood pressure 54 mm[Hg] Chacorta Erwin MD Work Phone: [facility] 02-21-2024 10:39-0400 Heart rate 64 /min Chacorta Erwin MD Work Phone: [facility] 02-21-2024 10:39-0400 Respiratory rate 16 /min Chacorta Erwin MD Work Phone: [facility] 02-21-2024 10:39-0400 SaO2% (BldA) [Mass fraction] 100 % Chacorta Erwin MD Work Phone: [facility] 02-21-2024 10:39-0400 Systolic blood pressure 104 mm[Hg] Chacorta Erwin MD Work Phone: [facility] 06-19-2023 23:30-0400 Diastolic blood pressure 63 mm[Hg] [facility] 06-19-2023 23:30-0400 Heart rate 83 /min [facility] 06-19-2023 23:30-0400 Respiratory rate 15 /min [facility] 06-19-2023 23:30-0400 SaO2% (BldA) [Mass fraction] 96 % [facility] 06-19-2023 23:30-0400 Systolic blood pressure 102 mm[Hg] [facility] 06-19-2023 21:44-0400 Body height 167.6 cm [facility] 06-19-2023 21:44-0400 Body mass index (BMI) [Ratio] 22.6 kg/m2 [facility] 06-19-2023 21:44-0400 Body temperature 98.01 [degF] [facility] 06-19-2023 21:44-0400 Body weight 63.5 kg [facility] 01-09-2023 16:18-0500 Body height 167.64 cm No PCP None [facility] Work Phone: 01-09-2023 16:18-0500 Body mass index (BMI) [Ratio] 24.59 kg/m2 No PCP [facility] Work Phone: 01-09-2023 16:18-0500 Body surface area Derived from formula 1.78 m2 No PCP None [facility] Work Phone: 01-09-2023 16:18-0500 Body weight 69.12 kg No PCP None [facility] Work Phone: 01-09-2023 16:18-0500 Diastolic blood pressure 60 mm[Hg] No PCP None [facility] Work Phone: 01-09-2023 16:18-0500 Systolic blood pressure 116 mm[Hg] No PCP None [facility] Work Phone: 11-21-2022 05:37-0500 Diastolic blood pressure 53 mm[Hg] No Pcp Required [facility] 11-21-2022 05:37-0500 Heart rate 85 /min No Pcp Required [facility] 11-21-2022 05:37-0500 Respiratory rate 18 /min No Pcp Required [facility] Medic [facility] 11-21-2022 05:37-0500 SaO2% (BldA) [Mass fraction] 100 % No Pcp Required [facility] 11-21-2022 05:37-0500 Systolic blood pressure 100 mm[Hg] No Pcp Required [facility] 11-21-2022 03:56-0500 Body height 167.6 cm No Pcp Required [facility] 11-21-2022 03:56-0500 Body temperature 97.7 [degF] No Pcp Required [facility] 11-21-2022 03:56-0500 Body weight 68.1 kg No Pcp Required [facility] 09-08-2022 22:01-0400 Diastolic blood pressure 61 mm[Hg] No Pcp Required [facility] 09-08-2022 22:01-0400 Heart rate 69 /min No Pcp Required [facility] 09-08-2022 22:01-0400 Respiratory rate 16 /min No Pcp Required [facility] 09-08-2022 22:01-0400 SaO2% (BldA) [Mass fraction] 100 % No Pcp Required [facility] 09-08-2022 22:01-0400 Systolic blood pressure 121 mm[Hg] No Pcp Required [facility] 09-08-2022 17:31-0400 Body height 167.6 cm No Pcp Required [facility] 09-08-2022 17:31-0400 Body temperature 98.24 [degF] No Pcp Required [facility] 09-08-2022 17:31-0400 Body weight 66 kg No Pcp Required [facility] 06-26-2021 16:54-0400 Diastolic blood pressure 65 mm[Hg] No Pcp Required [facility] 06-26-2021 16:54-0400 Heart rate 70 /min No Pcp Required [facility] 06-26-2021 16:54-0400 Respiratory rate 16 /min No Pcp Required [facility] 06-26-2021 16:54-0400 SaO2% (BldA) [Mass fraction] 97 % No Pcp Required [facility] 06-26-2021 16:54-0400 Systolic blood pressure 112 mm[Hg] No Pcp Required [facility] 06-26-2021 11:14-0400 Body height 167.6 cm No Pcp Required [facility] 06-26-2021 11:14-0400 Body temperature 98.06 [degF] [facility] [place] 06-26-2021 11:14-0400 Body weight 71.9 kg No Pcp Required [facility] 10-03-2020 11:52-0500 BMI (Body Mass Index) 24.14 kg/m2 Cally Sherlock -[facility] Work Phone: 10-03-2020 11:52-0500 Body Temperature 97 [degF] Cally Sherlock -[facility] Work Phone: 10-03-2020 11:52-0500 Body weight 67.84 kg Cally Sherlock -[facility] Work Phone: 10-03-2020 11:52-0500 BP Diastolic 76 mm[Hg] Cally Sherlock -[facility] Work Phone: Comment on above: Location: LUE; Position: Sitting 10-03-2020 11:52-0500 BP Systolic 104 mm[Hg] Cally Sherlock -[facility] Work Phone: Comment on above: Location: LUE; Position: Sitting 10-03-2020 11:52-0500 BSA (Body Surface Area) 1.77 m2 Cally Sherlock -[facility] Work Phone: 10-03-2020 11:52-0500 Height 167.64 cm Cally Sherlock -[facility] Work Phone: 06-02-2020 14:04-0400 BMI (Body Mass Index) 22.76 kg/m2 Chica Wisdom [id number] [facility] Work Phone: 06-02-2020 14:04-0400 Body Temperature 98.1 [degF] Chica Wisdom DV-[id number]-[id number] [address] [facility] Work Phone: 06-02-2020 14:04-0400 Body weight 63.96 kg Cihca Wisdom [id number]-OSXD-Wyeg [address] [facility] Work Phone: 06-02-2020 14:04-0400 BP Diastolic 72 mm[Hg] Chica Wisdom EZ-RCKI-Xtpr [address] [facility] Work Phone: 06-02-2020 14:04-0400 BP Systolic 104 mm[Hg] Chica Wisdom EY-RQKV-Ilac [address] [facility] Work Phone: 06-02-2020 14:04-0400 BSA (Body Surface Area) 1.72 m2 Chica Wisdom [id number]-WJFQ-Hlbv [facility] Work Phone: 06-02-2020 14:04-0400 Pulse (Heart Rate) 60 /min Chica Wisdom CU-XRAA-Biev [facility] Work Phone: 06-02-2020 14:04-0400 Pulse Oximetry 99 % Chica Wisdom YU-SSXQ-Bvcj [address] [facility] Work Phone: 06-02-2020 14:04-0400 Respiratory Rate 16 /min Chica Wisdom PD-IWRR-Guvq [address] [facility] Work Phone: Encounters Encounter Date Encounter Type Care Provider Facility Start: 01-07-2025 Evaluation and management of inpatient NARINDER [facility] Start: 01-07-2025 [facility] Start: 01-06-2025 Evaluation and management of inpatient WOO RAMIREZRADHA [facility] Start: 01-05-2025 Evaluation and management of inpatient GIL ZHANG [facility] Start: 01-05-2025 Evaluation and management of inpatient NARINDER SAFI [facility] Start: 01-05-2025 [facility] 01-04-[facility]25 Evaluation and management of inpatient GIL T [facility] Start: 01-04-2025 Evaluation and management of inpatient WOO Davidson [facility] Start: 01-04-2025 [facility] Start: 01-03-2025 Evaluation and management of inpatient WOO Davidson [facility] Start: 01-02-2025 Evaluation and management of inpatient GIL De León [facility] Start: 01-02-2025 Evaluation and management of inpatient WOO Davidson [facility] Start: 01-02-2025 Evaluation and management of inpatient WOO Davidson [facility] Start: 01-02-2025 Evaluation and management of inpatient FELISHA BRADEN [facility] Start: 01-01-2025 Evaluation and management of inpatient GIL De León [facility] Start: 01-01-2025 Evaluation and management of inpatient DENIA ZAMORA [facility] Start: 01-01-2025 End: 01-07-2025 Evaluation and management of inpatient JENNIFER TRACIE [facility] Start: 12-08-2024 End: 12-08-2024 ambulatory [facility] Start: 12-08-2024 End: 12-08-2024 Subsequent hospital visit by physician Sunny Lilly MD [facility] Start: 12-04-2024 End: 12-04-2024 ambulatory SHARIF Seth [facility] Start: 12-04-2024 End: 12-04-2024 Subsequent hospital visit by physician Sunny Lilly MD Work Phone: [facility] Start: 10-14-2024 End: 10-14-2024 [facility] Start: 09-28-2024 End: 09-28-2024 [facility] Start: 09-28-2024 End: 09-28-2024 Subsequent hospital visit by physician Sunny Lilly MD Work Phone: [facility] Start: 05-26-2024 End: 05-26-2024 [facility] Start: 05-26-2024 End: 05-26-2024 Subsequent hospital visit by physician Sunny Lilly MD Work Phone: [facility] Start: 05-08-2024 End: 05-08-2024 [facility] Start: 05-04-2024 End: 05-04-2024 [facility] Start: 04-24-2024 End: 04-24-2024 Emergency department patient visit [facility] Start: 02-21-2024 End: 02-21-2024 Emergency department patient visit NO ASSIGNED PCP GENERIC PROVIDER [facility] Start: 02-21-2024 End: 02-21-2024 Emergency department patient visit Chacorta Erwin MD Work Phone: [facility] Comment on above: Trichomonas exposure (Primary Dx); Rash Start: 06-19-2023 End: 06-20-2023 Emergency department patient visit [facility] Start: 06-19-2023 End: 06-20-2023 Emergency department patient visit [facility] ED Comment on above: Multiple drug overdo se, accidental or unintentional, initial encounter (Primary Dx) Start: 05-29-2023 End: 05-29-2023 Emergency department patient visit [facility] Start: 01-09-2023 Office outpatient vi sit 15 minutes No PCP None [facility] Work Phone: Start: 01-09-2023 Patient encounter procedure No PCP None [facility] Work Phone: Start: 01-09-2023 ambulatory MD CALLY REDD KEVEN Facility:[id number] Start: 12-19-[address] Chacorta Erwin Facility:[id number] Start: 11-22-2022 Patient encounter procedure No PCP [facility] [facility] Work Phone: Start: 11-22-[address] Chacorta Erwin Facility:[id number] Start: 11-21-2022 End: 11-21-2022 Emergency department patient visit Lilian Wilkins [facility] 05 Start: 11-20-2022 End: 11-20-2022 Emergency department patient visit Elinor Sagastume [facility] 04 Start: 10-08-2022 End: 10-08-2022 Emergency department [facility] Start: 09-08-2022 End: 09-08-2022 Emergency department patient visit Kirk Roldan [facility] 01 Start: 06-26-2021 End: 06-26-2021 Emergency department patient visit Reta Sanchez [facility] 25 Start: 10-03-2020 Patient encounter procedure Cally Meyer -[facility] Work Phone: Start: 09-05-2020 Patient encounter procedure Cally Meyer -[facility] Work Phone: Start: 06-10-2020 Patient encounter procedure Cally Meyer -[facility] Work Phone: Start: 06-02-2020 Patient encounter procedure Chica Wisdom [id number]-XTIC-Bpiw [facility] Work Phone: Start: 10-26-2019 Patient encounter procedure Chica Wisdom [id number]-XEPE-[id number] [facility] Work Phone: Start: 08-25-2019 Patient encounter procedure Chica Wisdom WF-XCMT-Ozvo [facility] Work Phone: Start: 07-16-2019 Patient encounter procedure Chica Wisdom [id number]-BGZK-Qwub [facility] Work Phone: Start: 06-11-2019 Patient encounter procedure Chica Wisdom [id number]-KQDS-Fpfn [facility] Work Phone: Start: 04-22-2019 Patient encounter procedure Chica Wisdom BL-GXIY-Fisl [facility] Work Phone: Start: 01-19-2019 End: 01-21-2019 Evaluation and management of inpatient KEYSHA BAH Facility:[facility] Start: 01-15-2019 Patient encounter procedure Chica Wisdom ON-QFKM-Dity [facility] Work Phone: Start: 01-08-2019 Patient encounter procedure Chica Wisdom NA-JYSX-Blth [facility] Work Phone: Start: 01-01-2019 Patient encounter procedure Chica Wisdom JD-ICHT-Sieb [facility] Work Phone: Start: 12-25-2018 Patient encounter procedure KEYSHA BAH Facility:[facility] Start: 12-25-2018 Patient encounter procedure Chica Wisdom XD-VIEG-Epyf [facility] Work Phone: Start: 12-18-2018 Patient encounter procedure Chica Wisdom WC-NGXZ-Sjvx [facility] Work Phone: Start: 12-11-2018 End: 12-11-2018 Patient encounter procedure KEYSHA BAH Facility:[facility] Start: 12-04-2018 Patient encounter procedure Chica Wisdom [id number]-AUYO-Ciyb [facility] Work Phone: Start: 12-01-2018 End: 12-01-2018 Patient encounter procedure KEYSHA BAH [facility] [facility] Start: 11-27-2018 Patient encounter procedure Chica Wisdom [id number] [facility] Work Phone: Start: 11-13-2018 Patient encounter procedure KEYSHA BAH Facility:[facility] Start: 11-13-2018 Patient encounter procedure KEYSHA BAH Facility:7 Start: 10-24-2018 Patient encounter procedure KEYSHA BAH Facility:[facility] Start: 10-16-2018 Patient encounter procedure KEYSHA BAH Facility:[facility] Start: 10-07-2018 Patient encounter procedure Chica Wisdom [id number] [facility] [facility] Work Phone: Start: 09-18-2018 Patient encounter procedure KEYSHA BAH Facility:[facility] Start: 09-18-2018 Patient encounter procedure KEYSHA BAH Facility:7 Start: 09-18-2018 Patient encounter procedure Chica Wisdom [id number] [facility] [facility] Work Phone: Start: 09-09-2018 End: 09-09-2018 Emergency department patient visit NO FAMILY DOCTOR NO FAMILY DOCTOR Facility:[facility] Start: 07-30-2018 End: 07-30-2018 Emergency department patient visit NO FAMILY DOCTOR NO FAMILY DOCTOR Facility:[facility] Start: 05-20-2018 End: 05-20-2018 Emergency department patient visit BRAULIO LILLY Facility:[facility] Menarche No PCP None [facility] [place] Work Phone: Patient encounter status No PCP None [facility] [place] Work Phone: Procedures Date Procedure Procedure Detail Performing Clinician Start: 12-08-2024 Comprehensive metabo lic panel Sharif Ivory BEHAVIORAL HEALTH DIRECTOR - RESEARCH PROJECT COORDINATOR Work Phone: Start: 12-08-2024 Hepatitis b surf ant ibody hbsab Sharif Ivory BEHAVIORAL HEALTH DIRECTOR - RESEARCH PROJECT COORDINATOR Work Phone: Start: 12-08-2024 T. PALLIDUM AB Sharif R cliff BEHAVIORAL HEALTH DIRECTOR - RESEARCH PROJECT COORDINATOR Work Phone: Start: 12-04-2024 Smr prim src wet cecilia nt nfct agt Sharif Ivory BEHAVIORAL HEALTH DIRECTOR - RESEARCH PROJECT COORDINATOR Work Phone: Start: 09-28-2024 Smr prim src wet cecilia nt nfct agt Sharif Ivory BEHAVIORAL HEALTH DIRECTOR - RESEARCH PROJECT COORDINATOR Work Phone: Start: 05-26-2024 Smr prim src wet cecilia nt nfct agt Sharif Ivory BEHAVIORAL HEALTH DIRECTOR - RESEARCH PROJECT COORDINATOR Work Phone: Start: 02-21-2024 C. TRACHOMATIS + [...] above: Performed By: #### U ARFX #### [facility] [address] [place] [address] Start: 09-18-2018 Antibody screen BRAULIO LILLY Comment on above: Performed By: #### T S3 #### [facility] [address] [place] [address] Bilateral tubal ligation No PCP None Dilation and curettage Claudia Wisdom Plan of Treatment Date Care Activity Detail Author Start: 2054 RSV patient s and/or patients aged 60+ years (1 - 1-dose 60+ series) RSV patients and/or patients aged 60+ years (1 - 1-dose 60+ series) [facility] Start: 2044 Zoster Vaccines (1 o f 2) Zoster Vaccines (1 of 2) [facility] Start: 11-13-2028 DTaP/Tdap/Td vaccine (3 - Td or Tdap) DTaP/Tdap/Td vaccine (3 - Td or Tdap) [facility] Start: 11-13-2028 DTaP/Tdap/Td Vaccine s (3 - Td or Tdap) DTaP/Tdap/Td Vaccines (3 - Td or Tdap) [facility] Start: 07-05-2024 COVID-19 Vaccine ( season) COVID-19 Vaccine ( season) [facility] Start: 07-05-2024 Influenza vaccination Influenz a Vaccine (Season Ended) [facility] Start: 2024 Screening for malign ant neoplasm of cervix [facility] Start: 06-04-2024 Influenza vaccination Flu vaccine (# 1) [facility] Start: 07-05-2023 COVID-19 Vaccine ( season) COVID-19 Vaccine ( season) [facility] Start: 06-04-2023 Influenza vaccination Flu vaccine (# 1) [facility] Start: 02-20-2023 FUV, Provider: Cally Meyer, Status: Pen, Time: 9:15 AM FUV, Provider: Cally Meyer, Status: Pen, Time: 9:15 AM [facility] Work Phone: Start: 12-19-2022 FUV, Provider: Chacorta Erwin, Status: Pen, Time: 2:45 PM FUV, Provider: Chacorta Erwin, Status: Pen, Time: 2:45 PM [facility] Work Phone: Start: 09-08-2022 Syncope Syncope Date: 08-Sep-2022 [facility] Start: 2015 Screening for malign ant neoplasm of cervix [facility] Start: 2013 Hepatitis B vaccine (1 of 3 - 19+ 3-dose series) Hepatitis B vaccine (1 of 3 - 19+ 3-dose series) [facility] Start: 2013 Hepatitis B Vaccines (1 of 3 - 19+ 3-dose series) Hepatitis B Vaccines (1 of 3 - 19+ 3-dose series) [facility] Start: 2012 Hepatitis C screening [facility] Start: 2009 HIV screening HIV screen [facility] Start: 2007 Varicella vaccination Varicell a Vaccines (1 of 2 - 13+ 2-dose series) [facility] Start: 2007 Varicella vaccine (1 of 2 - 13+ 2-dose series) Varicella vaccine (1 of 2 - 13+ 2-dose series) [facility] Start: 2006 [facility] Start: 1995 MMR Vaccines (1 of 1 - Standard series) MMR Vaccines (1 of 1 - Standard series) [facility] Start: 1995 Varicella vaccine (1 of 2 - 2-dose childhood series) Varicella vaccine (1 of 2 - 2-dose childhood series) [facility] Start: 01-01-1995 COVID-19 Vaccine (#1) COVID-19 Vacci ne (#1) [facility] Start: 1994 Hepatitis B vaccine (1 of 3 - 3-dose series) Hepatitis B vaccine (1 of 3 - 3-dose series) [facility] Start: 1994 HIV screening HIV Screening [facility] Start: 1994 Lipid panel Lipid Panel [facility] Start: 1994 Yearly Adult Physical Yearly Adult P hysical [facility] C.trachomatis N.gonorrhoeae DNA C.trachomatis N.gonorrhoeae DNA Microbiology Routine 09/28/2024 6:55 AM EST [employer] [facility] [facility] Work Phone: C.trachomatis N.gonorrhoeae DNA C.trachomatis N.gonorrhoeae DNA Microbiology Routine 12/04/2024 7:45 AM EST [facility] [facility] Work Phone: End: 02-21-2024 Chlamydia trachomatis and Neisseria gonorrhoeae DNA [Identifier] in Unspecified specimen by JOSE R with probe detection [facility] Service Area Work Phone: Comment on above: Once (Lab) for 1 Occ urrences starting 02/21/2024 until 02/21/2024 EKG 12 Lead EKG 12 Lead ECG STAT 06/19/2023 9:49 PM EDT [facility] Phone: End: 12-08-2024 Hepatitis C RNA, quantitative, PCR [employer] Phone: Comment on above: Once for 1 Occurrenc es starting 12/08/2024 until 12/08/2024 End: 02-21-2024 Trichomonas vaginalis rRNA [Presence] in Unspecified specimen by JOSE R with probe detection [facility] Work Phone: Comment on above: Once (Lab) for 1 Occ urrences starting 02/21/2024 until 02/21/2024 Immunizations Immunization Date Immunization Notes Care Provider Tia johnson 11-13-2018 tetanus toxoid, redu wilson diphtheria toxoid, and acellular pertussis vaccine, adsorbed Chica Wisdom [id number] [address] [facility] Work Phone: Comment on above: Series: 08-05-2015 influenza virus vacc ine, unspecified formulation No PCP None [facility] Work Phone: Comment on above: Series: 08-05-2015 influenza, seasonal, injectable Chica Wisdom [id number] [address] [facility] Work Phone: 08-02-2015 tetanus toxoid, redu wilson diphtheria toxoid, and acellular pertussis vaccine, adsorbed Chica Wisdom [id number] [address] [facility] Work Phone: Comment on above: Series: Payers Date Payer Category Payer Unknown [id number] 2019 Unknown 2019 Unknown [id number] 1994 Unknown [id number] 2.16.8 40.1.943574.3.579.2.355 1994 Unknown [id number] 2.16.8 40.1.755993.3.579.2.355 1994 Unknown [id number] 2.16.8 40.1.367842.3.579.2.355 1994 Unknown [id number] 2.16.8 40.1.629850.3.579.2.355 1994 Unknown [id number] 2.16.8 40.1.387716.3.579.2.355 1994 Unknown [id number] 2.16.8 40.1.700662.3.579.2.355 1994 Unknown [id number] 2.16.8 40.1.924223.3.579.2.355 1994 Unknown [id number] 2.16.8 40.1.875173.3.579.2.355 1994 Unknown [id number] 2.16.8 40.1.541654.3.579.2.355 1994 Unknown [id number] 2.16.8 40.1.253530.3.579.2. 1994 Unknown [id number] 2.16.8 40.1.778638.3.579.2. 1994 Unknown [id number] 2.16.8 40.1.598525.3.579.2.355 1994 Unknown [id number] 2.16.8 40.1.377427.3.579.2.355 1994 Unknown [id number] 2.16.8 40.1.026577.3.579.2.1067 1994 Unknown [id number] 2.16.8 40.1.814983.3.579.2.1067 1994 Unknown [id number] 2.16.8 40.1.153611.3.579.2.8 1994 Unknown [id number] 2.16.8 40.1.666716.3.579.2.1067 1994 Unknown [id number] 2.16.8 40.1.612121.3.579.2.8 1994 Unknown [id number] 2.16. 840.1.394082.3.579.2.356 1994 Unknown [id number] 2.16.8 40.1.237774.3.579.2.182 1994 Unknown [id number] 2.16.8 40.1.967120.3.579.2.182 1994 Unknown [id number] 2.16.8 40.1.490644.3.579.2.182 1994 Unknown [id number] 2.16.84 0.1.883908.3.579.2.1246 1994 Unknown [id number] 2.16.8 40.1.558439.3.579.2.173 1994 Unknown [id number] 2.16.8 40.1.441048.3.579.2.173 1994 Unknown [id number] 2.16.8 40.1.822519.3.579.2.173 1994 Unknown [id number] 2.16.8 40.1.109470.3.579.2.173 1994 Unknown [id number] 2.16.8 40.1.994496.3.579.2.173 1994 Unknown [id number] 2.16.8 40.1.181560.3.579.2.173 1994 Unknown [id number] 2.16.8 40.1.650924.3.579.2.173 1994 Unknown [id number] 2.16.8 40.1.182662.3.579.2.173 Social History Date Type Detail Facility Assertion Tobacco smoking consumption unknown (finding) [id number] Work Phone: Tobacco smoking consumption unknown [facility] Start: 04-24-2024 Caffeine use Caffeine use [facility] Work Phone: Start: 10-08-2022 End: 02-21-2024 Tobacco smoking status NHIS Never smoked tobacco [facility] Start: 10-08-2022 End: 02-21-2024 Tobacco use and exposure Smokeless tobacco non-user [facility] Start: 10-08-2022 End: 04-24-2024 Alcohol intake Current drinker of alcohol (finding) [facility] Start: 06-20-2023 History SDOH Alcohol Frequency 3 [facility] Start: 08-17-2023 History SDOH Alcohol Std Drinks 2 [facility] Start: 1994 Sex Assigned At Not on file [facility] Start: 02-21-2024 Alcoholic beverage intake Lifetime non-drinker (finding) [facility] Work Phone: Start: 04-24-2024 Gender identity Not on file [facility] Work Phone: Start: 02-11-2024 End: 02-21-2024 Exposure to SARS-CoV-2 (event) Not sure [facility] Work Phone: How often to you hav e a drink containing alcohol? Never [facility] [employer] How many standard drinks containing alcohol do you have on a typical day? Patient does not drink [facility] Medical Equipment Procedure Code Equipment Code Equipment Original Text Equipment Identifier Dates Clip, [place], Tubal, Filshie Case [id number] Start: 06-18-2019 Comment on above: Description: Convert ed from [facility]. Please see archived information for full log information. Functional Status Date Assessment Result Facility NEGATED: Highlighted row Functional performance Functional status health issues are not documented Disease [id number] [facility] [facility] Work Phone: Mental Status Date Assessment Result Facility NEGATED: Highlighted row Cognitive function [Interpretation] Cognitive status health issues are not documented Disease [id number] [facility] [facility] Work Phone: Clinical Notes [...] h/o polysubstance abuse who was admitted to [facility] on 01/01 for spontaneous pneumothorax. She was transferred from [facility] with chest pain and dyspnea. This was [...] CT Surgery and Pulmonary Dear Dr. Hudson, RESEARCH PROJECT COORDINATOR, Juliette is advised to follow up with you within 1-2 weeks. Items to follow up in ambulatory setting: Follow up CXR Follow-up with: CT Surgery and Pulmonary Scheduled appointments: Future Appointments Date Time Provider Department Center 02/25/2025 3:30 PM Leodan Hardwick MD [facility] PULM Comprehensiv Your medication list START taking [...] Medications These medications were sent to [facility] - [place], [place] - [address] [place] [address] [place] [address], [facility] [address] acetaminophen 500 mg tablet ARIPiprazole 5 mg [...] was 30 minutes. Signed Gil Zhang MD [facility] Medicine 01/07/2025 4:59 PM CC: KUMAR Hudson [facility] 01-07-2025 Note Expand All Collapse All Cardiothoracic Surgery Progress Note 01/05/2025 Room: [address] [place], [place] [id number] [facility] Juliette Hernández is a 29 y.o. female with medical history significant for anxiety, depression, and polysubstance abuse with history of overdose. Medical history obtained from the patient and the medical records. She presenting as direct admission to [facility] early this morning, transferred from [facility]. Upon presentation to [facility], she complained of right sided chest pain [...] tube was placed. She was transferred to [facility] for surgical evaluation for possible VATS [...] to discuss surgical intervention. 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 -No follow-up needed with CT Surgery outpatient. -Clinically stable to discharge per CT Surgery team. To reach Cardiothoracic Surgery Inpatient from 8am-4pm call Ascom #[phone]. Only use [employer] chat for general questions. If unable (more content not included)... [facility] 01-07-2025 Note Attestation signed by Narinder [...] denies, and alcohol use. Patient presented from [facility] as a direct admission due to spontaneous [...] was discharged home. Yesterday she presented to [facility] again with shortness of breath and chest pain/heaviness. She was found to have spontaneous pneumothorax. Chest tube was placed and she was transferred to [facility] for further management with possible VATS/pleurodesis. [...] 60 mg, ora (more content not included)... [facility] 01-06-2025 Note Expand All Collapse All Cardiothoracic Surgery Progress Note 01/05/2025 Room: [address] [place] [address] Juliette Hernández is a 29 y.o. female with medical history significant for anxiety, depression, and polysubstance abuse with history of overdose. Medical history obtained from the patient and the medical records. She presenting as direct admission to [facility] early this morning, transferred from [facility]. Upon presentation to [facility], she complained of right sided chest pain [...] tube was placed. She was transferred to [facility] for surgical evaluation for possible VATS [...] needs. SaO2 peter (more content not included)... [facility] 01-06-2025 Note Hospital Medicine Daily Progress Note - 01/06/2025 8:37 AM; Room: 3179/3179- Admission: 01/01/2025 12:02 AM; Length of stay: 5 days THE HOSPITALIST TEAM PREFERS TO USE [employer] FOR NON-URGENT COMMUNICATION 7AM-7PM. IF I DO NOT RESPOND WITHIN 20 MINUTES OR URGENT MATTERS, PLEASE CALL THROUGH THE EXTRUSION PRESS SUPERVISOR. FROM 7PM-7AM, PLEASE PAGE [phone](COVR). Code Status: Full Code Barriers to Discharge: [...] Heart murmur, aortic History of substance dependence ([facility]) Anxiety and depression Assessment and [...] 2.68 01/01/2025 Lab Results Component Value Date [id number] 01/01/2025 IRON 53 01/01/2025 TIBC 378 [...] Self Care () Signed Gil Zhang MD [facility] Medicine 01/06/2025 8:37 AM [facility] 01-06-2025 Note Attestation signed by Narinder [...] denies, and alcohol use. Patient presented from [facility] as a direct admission due to spontaneous [...] was discharged home. Yesterday she presented to [facility] again with shortness of breath and chest pain/heaviness. She was found to have spontaneous pneumothorax. Chest tube was placed and she was transferred to [facility] for further management with possible VATS/pleurodesis. [...] medications: HYDROmorphone, naloxone (more content not included)... [facility] 01-05-2025 Note Attestation signed by Narinder [...] denies, and alcohol use. Patient presented from [facility] as a direct admission due to spontaneous [...] was discharged home. Yesterday she presented to [facility] again with shortness of breath and chest pain/heaviness. She was found to have spontaneous pneumothorax. Chest tube was placed and she was transferred to [facility] for further management with possible VATS/pleurodesis. [...] IV AND sodium (more content not included)... [facility] 01-05-2025 Note Hospital Medicine Daily Progress Note - 01/05/2025 7:47 AM; Room: [address] [place] [address] Admission: 01/01/2025 12:02 AM; Length of stay: 4 days THE HOSPITALIST TEAM PREFERS TO USE Nexidia FOR NON-URGENT COMMUNICATION 7AM-7PM. IF I DO NOT RESPOND WITHIN 20 MINUTES OR URGENT MATTERS, PLEASE CALL THROUGH THE EXTRUSION PRESS SUPERVISOR. FROM 7PM-7AM, PLEASE PAGE [phone](COVR). Code Status: Full Code Barriers to Discharge: [...] 2.68 01/01/2025 Lab Results Component Value Date [id number] 01/01/2025 IRON 53 01/01/2025 TIBC 378 [...] Self Care () Signed Gil Zhang MD [facility] Medicine 01/05/2025 7:47 AM [facility] 01-05-2025 Note Cardiothoracic Surge ry Progress Note 01/05/2025 Room: 3179/3179-01 [facility] Juliette Hernández is a 29 y.o. female with medical history significant for anxiety, depression, and polysubstance abuse with history of overdose. Medical history obtained from the patient and the medical records. She presenting as direct admission to [facility] early this morning, transferred from [facility]. Upon presentation to [facility], she complained of right sided chest pain [...] tube was placed. She was transferred to [facility] for surgical evaluation for possible VATS [...] acute process Electron (more content not included)... [facility] 01-04-2025 Note Attestation signed by Narinder [...] MD Pulmonary Disease & Critical Care Medicine [facility] 01-04-2025 Note Cardiothoracic Surge ry Progress Note 01/04/2025 Room: [facility]/3179- Subjective Juliette Hernández is a 29 y.o. female with medical history significant for anxiety, depression, and polysubstance abuse with history of overdose. Medical history obtained from the patient and the medical records. She presenting as direct admission to [facility] early this morning, transferred from [facility]. Upon presentation to [facility], she complained of right sided chest pain [...] tube was placed. She was transferred to [facility] for surgical evaluation for possible VATS [...] Cardiothoracic Surgery Inpatient from 8am-4pm call Ascom #[phone]. Only use [employer] chat for general questions. If unable to reach Ascom Number call hospital angledozer operator for Cardiothoracic Provider Laborer/Grade Check. Cardiothoracic Surgery outp (more content not included)... [facility] 01-04-2025 Note Hospital Medicine Daily Progress Note - 01/04/2025 7:10 AM; Room: [address] [place] [address] Admission: 01/01/2025 12:02 AM; Length of stay: 3 days THE HOSPITALIST TEAM PREFERS TO USE [employer] CHAT FOR NON-URGENT COMMUNICATION 7AM-7PM. IF I DO NOT RESPOND WITHIN 20 MINUTES OR URGENT MATTERS, PLEASE CALL THROUGH THE EXTRUSION PRESS SUPERVISOR. FROM 7PM-7AM, PLEASE PAGE [phone](COVR). Code Status: Full Code Barriers to Discharge: [...] aortic History of substance dependence ([facility]) Anxiety and depression Assessment and [...] 2.68 01/01/2025 Lab Results Component Value Date [id number] 299 01/01/2025 IRON 53 01/01/2025 TIBC 378 01/01/2025 Imaging XR chest 1 view Narrative: XR CHEST 1 VIEW 01/03/2025 6:54 AM CLINICAL INDICATIONS: Check chest tube. COMPARISON: 01/02/2025 FINDINGS: Right pigtail drain remains in place Impression: No concerning residual pneumothorax is appreciated. No new airspace disease or infiltrate is noted. No acute process. Electronically signed: Haritha Ivan. Discharge Planning Signed Gil Zhang MD [facility] Medicine 01/04/2025 7:10 AM [facility] 01-03-2025 Note Hospital Medicine Daily Progress Note - 01/03/2025 7:10 AM; Room: [address] [place] [address] Admission: 01/01/2025 12:02 AM; Length of stay: 2 days THE HOSPITALIST TEAM PREFERS TO USE Nexidia FOR NON-URGENT COMMUNICATION 7AM-7PM. IF I DO NOT RESPOND WITHIN 20 MINUTES OR URGENT MATTERS, PLEASE CALL THROUGH THE EXTRUSION PRESS SUPERVISOR. FROM 7PM-7AM, PLEASE PAGE [phone](COVR). Code Status: Full Code Barriers to Discharge: [...] Heart murmur, aortic History of substance dependence ([facility]) Anxiety and depression Assessment and [...] 2.68 01/01/2025 Lab Results Component Value Date [id number] 299 01/01/2025 IRON 53 01/01/2025 TIBC 378 [...] volume loss and partial collapse. Impression: Impression: Emvyn-mb-ayyzfckt right pneumothorax with right lung volume loss with partial (more content not included)... [facility] 01-03-2025 Note Cardiothoracic Surge ry Progress Note 01/03/2025 Room: [facility]/3179-01 Subjective Juliette Hernández is a 29 y.o. female with medical history significant for anxiety, depression, and polysubstance abuse with history of overdose. Medical history obtained from the patient and the medical records. She presenting as direct admission to [facility] early this morning, transferred from [facility]. Upon presentation to [facility], she complained of right sided chest pain [...] tube was placed. She was transferred to [facility] for surgical evaluation for possible VATS [...] procedure notes, radiology reports and imaging from [facility] for the month of December, which these events of PTX occurred. If this is, in fact, a recurrence, then we may consider surgical treatment after weighing risks and benefits. -Medical management per primary team. -CT Surgery will continue to follow. To reach Cardiothoracic Surgery Inpatient from 8am-4pm call Ascom #[phone]. Only use [employer] chat for general questions. If unable to reach Ascom Number call hospital angledozer operator for Cardiothoracic Provider Laborer/Grade Check. Cardiothoracic (more content not included)... [facility] 01-02-2025 Note Chest Tube Insertion Date/Time: 01/02/2025 10:00 AM Performed by: Vishnu Miramontes MD Authorized by: Vishnu Miramontes MD Consent: Consent obtained: Written Consent given by: Patient Risks, benefits, and alternatives were discussed: yes Risks discussed: Damage to surrounding structures and bleeding [place] protocol: Procedure explained and questions answered to [...] material: 2-0 silk Dressinx4 sterile gauze Comments: Electric Relay Tester: Michael Miller CNP Chest tube insertion requested [...] to confirm tube position, will follow result [facility] 01-02-2025 Note Cardiothoracic Surge ry Progress Note 01/02/2025 [facility]: [facility] [facility] Subjective Juliette Hernández is a 29 y.o. female with medical history significant for anxiety, depression, and polysubstance abuse with history of overdose. Medical history obtained from the patient and the medical records. She presenting as direct admission to [facility] early this morning, transferred from [facility]. Upon presentation to [facility], she complained of right sided chest pain [...] tube was placed. She was transferred to [facility] for surgical evaluation for possible VATS with pleurodesis. Interval: Overnight CXR obtained at 0200 this morning and showed 4.2 cm PTX. Patinet remained in no respiratory distress and hemodynamically stable. Connections checked per RN/FILTER SCREEN CLEANER of chest tube, dressing removed and checked [...] CHEST 1 VIEW - Impression - Impression: Decbi-nh-qqkueaur right pneumothorax with right lung volume loss with partial collapse. Electronically signed: Guy Corea. XR CHEST 2 VIEWS - Impression - * Right chest tube, no pneumothorax. * No acute cardiopulmonary disease. * Normal heart size. Electronically signed: Checo Amaya MD. CT TRANSFER OF OUTSIDE FI (more content not included)... [facility] 01-02-2025 Note Hospital Medicine Daily Progress Note - 01/02/2025 7:00 AM; Room: 3179/3179-01 Admission: 01/01/2025 12:02 AM; Length of stay: 1 days THE HOSPITALIST TEAM PREFERS TO USE [employer] FOR NON-URGENT COMMUNICATION 7AM-7PM. IF I DO NOT RESPOND WITHIN 20 MINUTES OR URGENT MATTERS, PLEASE CALL THROUGH THE EXTRUSION PRESS SUPERVISOR. FROM 7PM-7AM, PLEASE PAGE [phone](COVR). Code Status: Full Code Barriers to Discharge: [...] 2.68 01/01/2025 Lab Results Component Value Date [id number] 01/01/2025 IRON 53 01/01/2025 TIBC 378 01/01/2025 Imaging XR chest 1 view Narrative: Single view chest History: Pneumothorax, follow-up Comparison: 12/24/2024 Findings: Single portable view of the chest. Small to moderate right pneumothorax measuring 4.2 to 4.3 cm. Right lung volume loss and partial collapse. Impression: Impression: Wkzla-on-cnqnkzjx right pneumothorax with right lung volume loss [...] Zhang MD Hospital Medicine 01/02/2025 7:00 AM [facility] 01-01-2025 Note Patient came to echo lab for test but was crying in pain. I gave her the option to try test at a later time and she was agreeable. Will try again this afternoon. [facility] 01-01-2025 Note Consider echocardiog keon murmur as a second right intercostal space no radiation and unchanged with handgrip and no exertional chest pain syncope or dyspnea [facility] 01-01-2025 Note Since this was the s econd episode the hospitalist at [facility] contact CTS at [facility] and it was decided to transfer patient to [facility] continue pain control incentive spirometry chest tube care follow-up with CTS will repeat labs and chest x-ray in the morning [facility] 01-01-2025 Note Hospital Medicine History and Physical 01/01/2025 1:11 AM THE HOSPITALIST TEAM PREFERS TO USE [employer] CHAT FOR NON-URGENT COMMUNICATION 7AM-7PM. IF I DO NOT RESPOND WITHIN 20 MINUTES OR URGENT MATTERS, PLEASE CALL THROUGH THE EXTRUSION PRESS SUPERVISOR. FROM 7PM-7AM, PLEASE PAGE [phone](COVR). Chief Complaint No chief complaint on file. History of Present Illness Juliette Hernández is an 29 y.o. female admitted from [facility] where she presented with new onset chest [...] STDs denies hepatitis HIV she works at [employer] Review of System and Physical Exam Heart [...] was the second episode the hospitalist at [facility] contact CTS at [facility] and it was decided to transfer patient to [facility] continue pain control incentive spirometry chest [...] this hospital stay by a member of [facility] Medicine. Past Medical History History reviewed. No [...] Food in th (more content not included)... [facility] 02-21-2024 Emergency department Note HPI Chief [...] painful. She denies a rash anywhere else. Davis Coma Scale Score: 15 Patient History Past Medical History: Diagnosis Date Anemia complicating , unspecified trimester ([facility]) Anemia of mother in Chlamydial infection, unspecified Positive Chlamyida test Encounter for screening for infections with a predominantly sexual mode of transmission Screen for STD (sexually transmitted disease) Gonococcal infection, unspecified Gonorrhea in female Missed ([facility]) Missed Other abnormal findings in urine Leukocytes [...] PA-C 02/21/24 1101 documented in this encounter [facility] Work Phone: 02-21-2024 Physician Emergency department [...] painful. She denies a rash anywhere else. Davis Coma Scale Score: 15 Patient History Past [...] Procedure Procedures Radha Lima PA-C 02/21/24 1101 [facility] Work Phone: 10-16-2021 Note HNO ID: [id number] Author: Juan Antonio Esqueda PA-C Service: ? Author Type: Physician Electric Relay Tester Type: Progress Notes Filed: 10/16/2021 10:24 AM Note Text: This note was created using Handmark. Subjective Juliette Hernández is a 26 year [...] Exam Vitals reviewed. Exam conducted with a earth moving technician present (Latia Pantoja MA present for exam). [...] Abstain from se (more content not included)... [facility] 07-15-2021 Note HNO ID: [id number] Author: Rubina Lala PA-C Service: ? Author Type: Physician Electric Relay Tester Type: Progress Notes Filed: 07/15/2021 1:58 PM Note Text: This note was created using H2020ter. Subjective Juliette Hernández is a 26 year [...] while awaiting COVID results. - 2019 CORONAVIRUS [facility] Evaluation note Diagnosis Multiple drug overdose, accidental or unintentional, initial encounter- Primary [facility] Diagnosis Trichomonas exposure- Primary Rash Rash and other nonspecific skin eruption documented in this encounter [facility] Work Phone: History of Present illness [...] grammatical areas may persist related to the [employer] software * Chacorta Erwin MD * Office: * . [facility] Work Phone: History of Present illness Narrative* Patient has sexual pain associated with myofascial etiology previously discussed multiple times * Worse now reports doing Kegel exercises discussed that this exacerbates muscle tension as it does not include the relaxation phase reputable muscles causes tenderness worsening of pain * Discussed physical therapy * Discussed trigger point injection Botox injection Kerry therapy [facility] Work Phone: Hospital Discharge instructions* Attachments The following attachments cannot be sent through Care Everywhere. * Drug Overdose: Multidrug (Gambian) [facility]* Attachments The following attachments cannot be sent through Care Everywhere. * Skin Rash ED (Gambian) * Sexually transmitted infections (Gambian) [facility] Summary Purpose Family History [...] intercourse and with insert of tampon * earth moving technician mariam rma * Est pt here for pain with intercourse and with insert of tampon * earth moving technician mariam rma Additional Source Comments INFORMATION SOURCE (unrecogn ized section and content) DATE CREATED AUTHOR 01/26/2019 [facility] DATE CREATED AUTHOR AUTHOR'S ORGANIZ ATION 12/11/2021 [facility] DATE CREATED AUTHOR AUTHOR'S ORGANIZ ATION 01/03/2023 [facility] DATE CREATED AUTHOR AUTHOR'S ORGANIZ ATION 01/11/2023 [facility] DATE CREATED AUTHOR AUTHOR'S ORGANIZ ATION 01/12/2023 [facility] DATE CREATED AUTHOR AUTHOR'S ORGANIZ ATION 06/21/2023 [facility] DATE CREATED AUTHOR AUTHOR'S ORGANIZ ATION 02/22/2024 [facility] DATE CREATED AUTHOR AUTHOR'S ORGANIZ ATION 12/13/2024 [facility] DATE CREATED AUTHOR AUTHOR'S ORGANIZ ATION 01/11/2025 [facility] <item><item><item><item><item> Privacy Markings (unrecogniz ed section [...] Care Teams (unrecognized sec tion and content) Loss Control Representative Relationship Specialty Start Date End Date Chacorta Erwin MD [address] [facility] [address] [place] [address] PCP - Finnjanine OLMSTEAD PCP 08/04/23 Generic Provider, No Assigned Pcp, [place] [address] PCP - General Slubber Frame Changer 02/21/24 Loss Control Representative Relationship Specialty Start Date End Date Sunny Lilly MD [address] [place] [address] PCP - General Neurology 06/25/23 Loss Control Representative Relationship Specialty Start Date End Date Sunny Lilly MD [address] [place] [address] PCP - General Neurology 06/25/23 Loss Control Representative Relationship Specialty Start Date End Date Sunny Lilly MD [address] [place] [address] PCP - General Neurology 06/25/23 FOR RECORDS [...] BE BASED ON THE PRIMARY CLINICAL RECORDS. [facility] [employer] [facility]. provides no warranty or guarantee of the accuracy or completeness of information in this document.
[2025-01-22 19:44] VITALS: BP 121/80; PULSE 94; TEMP 36.7; O2SAT 100
--- NOTE | 2025-01-22 19:57 | ED.DENTAL1 ---
HPI - Dental/Oral General Chief complaint: Dental/Oral Stated complaint: TOOTHACHE Time Seen by Provider: 01/22/25 19:48 Source: patient Mode of arrival: walk-in History of Present Illness HPI Narrative: 29-year-old female presents here with a chief complaint of continued dental pain. She has no facial swelling or edema. She has multiple dental caries throughout. She was seen here on the 12th of this month and given a prescription of [place] and Pen-Vee K for dental pain. She states she now she is having increased pain continued pain she does have a dentist appointment this week. Patient has no facial edema no fevers or chills. No dental abscess appreciated on initial examination patient complains of pain to dentition #29 and 30 Related Data Home Medications ?Medication ?Instructions ?Recorded ?Confirmed fluoxetine 20 mg capsule 20 mg PO DAILY 12/16/24 01/15/25 fluoxetine 40 mg capsule (Prozac) 40 mg PO DAILY 12/16/24 01/15/25 aripiprazole 5 mg tablet 5 mg PO QAM 01/15/25 01/15/25 penicillin V potassium 500 mg 500 mg PO Q12H 01/15/25 01/15/25 tablet Allergies Allergy/AdvReac Type Severity Reaction Status Date / Time No Known Drug Allergies Allergy Verified 12/16/24 08:57 Review of Systems ROS Narrative All Systems are negative except as noted/marked.All systems reviewed and otherwise negative [facility] Medical History (Updated 01/22/25 @ 19:56 by Haritha Dao) Primary spontaneous pneumothorax (12/16/24) ?J93.11 - Primary spontaneous pneumothorax (ICD-10) Pneumothorax on right ?J93.9 - Pneumothorax, unspecified (ICD-10) Urinary tract infection ?N39.0 - Urinary tract infection, site not specified (ICD-10) Anxiety ?F41.9 - Anxiety disorder, unspecified (ICD-10) History of depression ?Z86.59 - Personal history of other mental and behavioral disorders (ICD-10) Family History (Updated 12/16/24 @ 13:52 by Yuliana Tang RN) Grandfather Family history of myocardial infarction Mother Family history of myocardial infarction Grandmother Family history of cancer Social History (Updated 12/16/24 @ 13:52 by Yuliana Tang RN) Within the past year, how often did you have a drink containing alcohol: never Score interpretation: A score less than 3 is consistent with normal alcohol consumption. Smoking status: Never smoker Non-prescribed substance use: denies use Highest level of school completed/degree received: GED or equivalent Little interest or pleasure in doing things: not at all Feeling down, depressed, or hopeless: not at all Exam Narrative Exam Narrative: Nurses notes reviewed and patient is noted to be non-hypoxic. General: The patient is comfortable, alert and oriented x3, well appearing, non toxic in no apparent distress. Head: Atraumatic and normocephalic. Eyes: Normal conjunctiva, no exudates. ENT: The oropharynx is normal. No pharyngeal erythema, uvular edema, tonsillar exudates, asymmetry or trismus. Uvula is midline. Mouth is normal to inspection With the exception of a pain on percussion of the tooth #30 and evidence of dental caries. There is no evidence of facial asymmetry or abscess formation. Floor of the mouth is soft. No tenderness in the submental or submandibular space. No tongue elevation or deviation. The patient has no evidence of periapical abscess, gingivitis, ANUG or other acute pathology. Airway is patent. Neck: The neck demonstrates normal range of motion. No meningeals signs are present. No stridor. No masses or lymphandenopathy noted. Respiratory: No acute distress, lungs are clear to auscultation, no wheezing, rhonchi, or rales noted. No stridor or retractions are noted. Cardiovascular: Regular rate and rhythm Skin: The skin exam shows no evidence of rashes Neuro: Alert and oriented x4, normal speech Lymphatic: No cervical lymphadenopathy Constitutional Vital Signs, click to edit/add: Last Vital Signs Temp 98.1 F 01/22/25 19:44 Pulse 94 H 01/22/25 19:44 Resp 18 01/22/25 19:44 BP 121/80 01/22/25 19:44 Pulse Ox 100 01/22/25 19:44 O2 Del Method Room Air 01/22/25 19:44 Course Vital Signs Vital signs: Vital Signs Temperature 98.1 F 01/22/25 19:44 Pulse Rate 94 H 01/22/25 19:44 Respiratory Rate 18 01/22/25 19:44 Blood Pressure 121/80 01/22/25 19:44 Pulse Oximetry 100 01/22/25 19:44 Oxygen Delivery Method Room Air 01/22/25 19:44 Temperature 98.1 F 01/22/25 19:44 Pulse Rate 94 H 01/22/25 19:44 Respiratory Rate 18 01/22/25 19:44 Blood Pressure 121/80 01/22/25 19:44 Pulse Oximetry 100 01/22/25 19:44 Oxygen Delivery Method Room Air 01/22/25 19:44 MDM - Dental/Oral Differential Diagnosis Differential diagnosis: Likely dental caries, toothache and dental abscess Medical Records Medical records narrative: 29-year-old female presents here with a chief complaint of continued dental pain. She has no facial swelling or edema. She has multiple dental caries throughout. She was seen here on the of this month and given a prescription of [place] and Pen-Vee K for dental pain. She states she now she is having increased pain continued pain she does have a dentist appointment this week. Patient has no facial edema no fevers or chills. No dental abscess appreciated on initial examination patient complains of pain to dentition #29 and 30 Emergency room chief complaint of continued dental pain. There is no physical evidence or sign of infection no swelling multiple dental caries throughout. Patient becomes very angry when I discussed not being able to give her continued narcotic medication. She has a dental appointment coming up this week. Medicated here with 1 [place] and dental anesthesia and discharged home with a small prescription of Tylenol 3. Patient is scheduled to follow-up on Saturday with her dentist. Again no fevers and no physical sign of abscess. Left prior to completion of treatment here in the emergency room. Discharge Plan Discharge Stand Alone Forms: Portal Instructions Chief Complaint: Dental/Oral Clinical Impression: Dental caries Patient Disposition: Left Against Medical Advice Time of Disposition Decision: 19:55 Condition: Good Prescriptions / Home Meds: No Action aripiprazole 5 mg tablet 5 mg PO QAM penicillin V potassium 500 mg tablet 500 mg PO Q12H fluoxetine [Prozac] 40 mg capsule 40 mg PO DAILY Patient Comments: 60mg daily fluoxetine 20 mg capsule 20 mg PO DAILY Print Language: Danish Instructions: Toothache (ED) Additional Instructions: follow up with dentist as scheduled Referrals: YUE CARTER [Primary Care Provider] - 1 week Discharge Date/Time: 01/22/25 20:08
--- NOTE | 2025-01-22 20:57 | PC.NURSE ---
At 2000, Clip Bolter And Wrapper went to room to assess and medicate pt. No one present in room. Staff stated that she left AMA.
== END 2025-01-22 20:08 | disposition left against medical advice (07) ==
PROVIDERS: Emergency Provider Emergency Medicine; PCP Nurse Practitioner Family
DX: K02.9 Dental caries, unspecified (principal)
CPT/HCPCS: 99283

== ENCOUNTER 2025-03-05 08:44 | Emergency (ER) | payer OTHER, SELFPAY ==
[2025-03-05] VITALS (34 sets, daily range): BP systolic 93–143; BP diastolic 52–91; PULSE 51–95; TEMP 37.2; O2SAT 95–100; BMI 29.9
--- NOTE | 2025-03-05 08:51 | ECG_ITS ---
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 Measurements Intervals [place] Rate: 70 P: 73 MD: 136 QRS: 72 QRSD: 80 T: 9 QT: 366 QTc: 386 Interpretive Statements 1100 Sinus rhythm 4068 Nonspecific Twave abnormality Abnormal ECG Compared to ECG 01/15/2025 21:30:41 Sinus arrhythmia no longer present Electronically Signed On 03-05-2025 17:49:18 EDT by JONO JETER M.D.
[2025-03-05 09:07] LABS: Basophils Percent Auto 0.8 % (0.2-2.0); Eosinophils Absolute Auto 0.1 10^3/uL (0.0-0.7); Eosinophils Percent Auto 1.1 % (0.9-7.0); Hematocrit 35.5 % (36.0-48.0); Hemoglobin 11.4 g/dL (12.0-16.0); Immature Granulocytes Abs Auto 0.01 10^3/uL (0.00-0.03); Immature Granulocytes Pct Auto 0.2 % (0.0-0.5); Lymphocytes Percent Auto 19.4 % (20.5-60.0); Mean Corpuscular HGB Conc 32.1 g/dL (29.9-35.2); Mean Corpuscular Hemoglobin 26.6 pg (26.7-34.0); Mean Corpuscular Volume 82.8 fL (81.0-99.0); Monocytes Absolute Auto 0.6 10^3/uL (0.3-0.8); Monocytes Percent Auto 11.8 % (1.7-12.0); Neutrophils Absolute Auto 3.6 10^3/uL (1.4-6.5); Neutrophils Percent Auto 66.7 % (43.0-75.0); Platelet Count 323 10^3/uL (150-450); Red Blood Count 4.29 10^6/uL (4.20-5.40); Red Cell Distribution Width 13.3 % (11.0-15.0); White Blood Count 5.3 10^3/uL (4.0-11.0)
[2025-03-05] MEDS: KETOROLAC TROMETHAMINE 30 MG/ML VIAL IVP (09:16)
[2025-03-05 09:26] LABS: HCG Qualitative NEGATIVE (NEGATIVE); Internal Control Within Normal Limits
[2025-03-05 09:30] LABS: Alanine Aminotransferase 27 U/L (14-59); Albumin Globulin Ratio 1.2; Alkaline Phosphatase 103 U/L (46-116); Anion Gap 13.3; Aspartate Amino Transferase 18 U/L (15-37); BUN Creatinine Ratio 20.8; Bilirubin Total 0.3 mg/dL (0.2-1.0); Calcium 9.1 mg/dL (8.5-10.1); Carbon Dioxide 29.4 mmol/L (21.0-32.0); Chloride 102 mmol/L (98-107); Estimated GFR (African America >60 (>=60 mL/min/1.73m^2); Estimated GFR (Non-African Ame >60 (>=60 mL/min/1.73m^2); Globulin 3.4 g/dL; Glucose 88 mg/dL (74-106); Potassium 3.7 mmol/L (3.5-5.1); Sodium 141 mmol/L (136-145); Total Protein 7.4 g/dL (6.4-8.2)
[2025-03-05 09:32] LABS: Troponin I High Sensitivity <4.0 pg/mL (4.0-51.3)
[2025-03-05] MEDS: MORPHINE SULFATE 4 MG/ML VIAL IV (10:04)
--- NOTE | 2025-03-05 10:29 | PC.NURSE ---
PLACED ON 2L NC FOR COMFORT PER VERBAL ORDER BY DR HODGES
--- NOTE | 2025-03-05 11:24 | ED.CHESTPAI1 ---
HPI - Chest Pain General Chief Complaint: Chest Pain Stated Complaint: SOB Time Seen by Provider: 03/05/25 08:48 Source: patient and friend Mode of arrival: Wheelchair Limitations: no limitations History of Present Illness HPI narrative: The patient history of spontaneous pneumothorax is coming to the ER with a right-sided chest pain that started all of a sudden when she was with her class, in the right side associated with no other symptoms The patient is not in any distress and she denies any previous symptoms over the last few days Related Data Home Medications ?Medication ?Instructions ?Recorded ?Confirmed fluoxetine 20 mg capsule 20 mg PO DAILY 12/16/24 03/05/25 Allergies Allergy/AdvReac Type Severity Reaction Status Date / Time No Known Drug Allergies Allergy Verified 03/05/25 08:46 Review of Systems ROS Status of ROS 10 or more systems reviewed and unremarkable except as noted in history and below [facility] Medical History (Updated 03/05/25 @ 11:27 by Mine Sewell MD) Primary spontaneous pneumothorax (12/16/24) ?J93.11 - Primary spontaneous pneumothorax (ICD-10) Pneumothorax on right ?J93.9 - Pneumothorax, unspecified (ICD-10) Urinary tract infection ?N39.0 - Urinary tract infection, site not specified (ICD-10) Anxiety ?F41.9 - Anxiety disorder, unspecified (ICD-10) History of depression ?Z86.59 - Personal history of other mental and behavioral disorders (ICD-10) Family History (Updated 12/16/24 @ 13:52 by Yuliana Tang RN) Grandfather Family history of myocardial infarction Mother Family history of myocardial infarction Grandmother Family history of cancer Social History (Updated 12/16/24 @ 13:52 by Yuliana Tang RN) Within the past year, how often did you have a drink containing alcohol: never Score interpretation: A score less than 3 is consistent with normal alcohol consumption. Smoking status: Never smoker Non-prescribed substance use: denies use Highest level of school completed/degree received: GED or equivalent Little interest or pleasure in doing things: not at all Feeling down, depressed, or hopeless: not at all Exam Narrative Exam Narrative: Nurses notes and vital signs reviewed and patient is not hypoxic. General: Well-appearing and in no apparent distress. Skin: Warm, dry, no pallor noted. No rash. Head: Normocephalic, atraumatic. Neck: Supple, non-tender. Eye: Pupils are equal, round and EOMI. No scleral icterus. Ears, Nose, Mouth, and Throat: TM are clear, no nasal mucosal hypertrophy. Oral mucosa is moist, no posterior oropharynx erythema, uvula is mid-line Cardiovascular: Regular Rate and Rhythm without murmur, gallop or rub. Respiratory: Air entry is normal in the lower lung bases bilaterally Back: No midline thoracic or lumbar vertebral tenderness. No CVA tenderness Musculoskeletal: normal ROM, no calf or popliteal tenderness, no lower extremity edema/swelling GI: Abdomen is soft, non-distended. Normal bowel sounds. No masses appreciated. No tenderness to palpation. No rebound, guarding, or rigidity noted. Neurological: A&O x4. No cranial nerve dysfunction observed. Constitutional Vital Signs, click to edit/add: Last Vital Signs Temp 98.9 F 03/05/25 08:46 Pulse 52 L 03/05/25 11:20 Resp 14 03/05/25 11:20 BP 139/78 03/05/25 11:16 Pulse Ox 99 03/05/25 11:20 O2 Del Method Room Air 03/05/25 09:45 Course Vital Signs Vital signs: Vital Signs Temperature 98.9 F 03/05/25 08:46 Pulse Rate 67 03/05/25 08:46 Respiratory Rate 22 H 03/05/25 08:46 Blood Pressure 117/60 03/05/25 08:46 Pulse Oximetry 100 03/05/25 08:46 Oxygen Delivery Method Room Air 03/05/25 08:46 Temperature 98.9 F 03/05/25 08:46 Pulse Rate 52 L 03/05/25 11:20 Respiratory Rate 14 03/05/25 11:20 Blood Pressure 139/78 03/05/25 11:16 Pulse Oximetry 99 03/05/25 11:20 Oxygen Delivery Method Room Air 03/05/25 09:45 MDM - Chest Pain MDM Narrative Medical decision making narrative: The patient presented to us with a history of pneumothorax her chest x-ray showed a small pneumothorax of 15% She already had a chemical pleurodesis done on the second time she had pneumothorax Right now the patient is stable she was provided with morphine for pain and it is controlled the patient placed on nasal cannula 3 L The patient case was discussed with from pulmonary critical service and [facility] and he mentioned that as long as the patient had a chemical procedure the last time she was here and she had a small pneumothorax she does not need a chest tube while getting transferred The patient was accepted under as a step down Lab Data Labs: Lab Results 03/05/25 Range/Units 08:57 WBC 5.3 (4.0-11.0) 10^3/uL RBC 4.29 (4.20-5.40) 10^6/uL Hgb 11.4 L (12.0-16.0) g/dL Hct 35.5 L (36.0-48.0) % MCV 82.8 (81.0-99.0) fL MCH 26.6 L (26.7-34.0) pg MCHC 32.1 (29.9-35.2) g/dL RDW 13.3 (11.0-15.0) % Plt Count 323 (150-450) 10^3/uL MPV 10.0 (9.5-13.5) fL Neut % (Auto) 66.7 (43.0-75.0) % Lymph % (Auto) 19.4 L (20.5-60.0) % Hardee % (Auto) 11.8 (1.7-12.0) % Eos % (Auto) 1.1 (0.9-7.0) % Baso % (Auto) 0.8 (0.2-2.0) % Neut # (Auto) 3.6 (1.4-6.5) 10^3/uL Lymph # (Auto) 1.0 L (1.2-3.8) 10^3/uL Hardee # (Auto) 0.6 (0.3-0.8) 10^3/uL Eos # (Auto) 0.1 (0.0-0.7) 10^3/uL Baso # (Auto) 0.0 (0.0-0.1) 10^3/uL Abs Immat Gran (auto) 0.01 (0.00-0.03) 10^3/uL Imm/Tot Granulo (auto) 0.2 (0.0-0.5) % Sodium 141 (136-145) mmol/L Potassium 3.7 (3.5-5.1) mmol/L Chloride 102 (98-107) mmol/L Carbon Dioxide 29.4 (21.0-32.0) mmol/L Anion Gap 13.3 BUN 15.0 (7.0-18.0) mg/dL Creatinine 0.72 (0.55-1.02) mg/dL Est GFR ( Amer) >60 (>=60 mL/min/1.73m^2) Est GFR (Non-Af Amer) >60 (>=60 mL/min/1.73m^2) BUN/Creatinine Ratio 20.8 Glucose 88 (74-106) mg/dL Calcium 9.1 (8.5-10.1) mg/dL Total Bilirubin 0.3 (0.2-1.0) mg/dL AST 18 (15-37) U/L ALT 27 (14-59) U/L Alkaline Phosphatase 103 (46-116) U/L Troponin I High Sens <4.0 L (4.0-51.3) pg/mL Total Protein 7.4 (6.4-8.2) g/dL Albumin 4.0 (3.4-5.0) g/dL Globulin 3.4 g/dL Albumin/Globulin Ratio 1.2 Serum HCG, Qual Negative (NEGATIVE) Discharge Plan Discharge Chief Complaint: Chest Pain Clinical Impression: Spontaneous pneumothorax Patient Disposition: [facility] Time of Disposition Decision: 11:27 Discharge location: [facility]
== END 2025-03-05 12:41 | disposition short-term general hospital (02) ==
PROVIDERS: Emergency Provider Emergency Medicine; PCP Nurse Practitioner Family
DX: J93.83 Other pneumothorax (principal)
CPT/HCPCS: 36415; 71045; 80053; 84484; 84703; 85025; 93005; 96374; 96375; 99285; J1885; J2270

== ENCOUNTER 2025-03-18 09:50 | Outpatient (REF) | payer OTHER, SELFPAY ==
--- OUTSIDE RECORDS SUMMARY | 2025-03-18 10:13 | XMS_ITS | CCD ---
Author Organization [facility] Care Team Providers Care Distributor Operator Name Role Phone MAXX, BRAULIO Primary [...] Dr. Chacorta Tatum Attending U navailable Mitesh, Elinor Dorothea Attending Unavail able Franky, MsKim Hassan Attending Zayda vailable MD CALLY MEYER Referring Unav ailable MD CALLY MEYER Attending Unav ailable Unavailable Primary Care Provider UnavailDAWSON Cartre Attending Unavailable Chacorta Erwin MD Unavailable Generic Provider MD, No Assigned Pcp Primary Car e Provider Unavailable GENERIC PROVIDER, NO ASSIGNED PCP Primary Care Unavailable Sunny Lilly MD Primary Care Provider CACHORRO, SHARIF Referring Unavailable MAXX, KHALID Primary Care Unavailable CACHORRO, SHARIF Referring Unavailable MAXX, KHALID Primary Care Unavailable CACHORRO, SHARIF Referring Unavailable MAXX, KHALID Primary Care Unavailable CACHORRO, SHARIF Referring Unavailable MAXX, KHALID Primary Care Unavailable CACHORRO, SHARIF Referring Unavailable MAXX, KHALID Primary Care Unavailable MAXX, KHALID Primary Care Unavailable DANIELLE SWANOSN Attending Unavailable CACHORRO, SHARIF Referring Unavailable MAXX, KHALID Primary Care Unavailable CACHORRO, SHARIF Referring Unavailable MAXX, KHALID Primary Care Unavailable Óscar Velasquez PA-C Emergency Provider [phone] Tristan FARLEY-CMillicent Primary Care Provider [phone] Óscar Velasquez Attending Unavailable Óscar Velasquez Admitting Unavailable Millicent Hudson Primary Care Unavailable DIAB, JENNIFER Referring Unavailable HORANI, SABINE Admitting Unavailable VICENTE, ALECIA T Attending Unavailable DIAB, JENNIFER Referring Unavailable CARVER, SHANTAL Admitting Unavailable HERI PEREZ Attending Unavailable WOO SILVA Referring Unavailabl e HERI PEREZ Referring Unavailable SAFI, NARINDER Referring Unavailable ASIYA, Referring Unavailable WOO SILVA Referring Unavailabl e WOO SILVA Referring Unavailabl e KULAKOWSKI, WOO Davidson Referring Unavailabl e ASIYA, Referring Unavailable KULAKOWSKI, WOO Davidson Referring Unavailabl e KULAKOWSKI, WOO Davidson Referring Unavailabl e KULAKOWSKI, WOO Davidson Referring Unavailabl e KULAKOWSKI, WOO Davidson Referring Unavailabl e KULAKOWSKI, WOO Davidson Referring Unavailabl e KULAKOWSKI, WOO Davidson Referring Unavailabl e KULAKOWSKI, WOO Davidson Referring Unavailabl e KULAKOWSKI, WOO Davidson Referring Unavailabl e KULAKOWSKI, WOO Davidson Referring Unavailabl e VENU, KAREN Referring Unavailable SANAULLAH, BENNY Referring Unavailable SAFI, NARINDER Referring Unavailable KULAKOWSKI, WOO Davidson Referring Unavailabl e VICENTE, ALECIA T Referring Unavailable VICENTE, ALECIA T Referring Unavailable KALINA, LIVE Referring Unavailable ASIYA, Referring Unavailable VENU, KAREN Referring Unavailable DERISO, GIACOMO Referring Unavailable KULAKOWSKI, WOO Davidson Referring Unavailabl e VICENTE, ALECIA T Referring Unavailable KULAKOWSKI, WOO Davidson Referring Unavailabl e VICENTE, ALECIA T Referring Unavailable KULAKOWSKI, WOO Davidson Referring Unavailabl e KULAKOWSKI, WOO Davidson Referring Unavailabl e Medications Current Medications Medication Drug Class(es) Dates Sig (Normalized) Sig (Original) acetaminophen 500 mg oral tablet (4 sources) Start: 01-25-2025 take 1 tablet by mouth every six hours Acetaminophen 500 mg tablet Active 500 MG PO Every 6 hours January 25, 2025 12:00am Start: 11-29-2020 End: 12-01-2020 take 2 tablets [...] containing acetaminophen to prevent possible liver damage. amoxicillin 500 mg oral capsule (4 sources) Penicillin-class Antibacterial Start: 01-26-20 take 1 capsule by mouth twice daily Amoxicillin 500 mg capsule Active 500 MG PO Twice daily 23 08January 25, 2025 12:00am Start: 08-01-2019 End: 08-14-2019 take 1 tablet by mouth twice daily amoxicillin 875 mg oral tablet ; 1 tab(s) orally 2 times a day x 14 days Quantity: 28 Refills: 0 Ordered: 01-Aug-2019 Diya Rowley Start: 01-Aug-2019 End: 14-Aug-2019 Status: Other Generic Substitution Allowed amoxicillin 875 mg / clavulanate 125 mg oral tablet (4 sources) Penicillin-class Antibacterial take 1 tablet by mouth twice daily amoxicillin-clavulanate (AUGMENTIN) 875-125 MG per tablet Take 1 tablet by mouth 2 times daily Active chlorhexidine gluconate 1.2 mg/ml mouthwash (1 source) Start : 01-25 Chlorhexidine Gluconate 0.12 % mouthwash Active 15 ML BUCCAL Twice daily January 25, 2025 12:00am clonazePAM 1 mg oral tablet (4 sources) [...] sodium 100 mg oral capsule (5 sources) Start : 11-29 take 1 capsule by mouth twice daily Colace 100 mg oral capsule ; 1 cap(s) orally 2 times a day Quantity: 60 Refills: 1 Ordered: 29-Nov-2020 Cally Meyer Start: 29-Nov-2020 Generic Substitution Allowed Comments: Medication should be taken with plenty of water. Comment on above: Medication should be taken with plenty of water. doxycycline monohydrate 100 mg oral tablet (2 sources) Tetracycline-class Drug Start : 02-20 End: 02-27 take 1 tablet by mouth twice daily [...] Annette Melchor Status: Other Generic Substitution Allowed ketorolac tromethamine 10 mg oral tablet (1 source) Nonsteroidal Anti-inflammatory Drug, Cyclooxygenase Inhibitor Start: 01-26-20 take 1 tablet by mouth every eight hours Ketorolac 10 mg tablet Active 10 MG PO Every 8 hours 18 03January 25, 2025 12:00am Multiple Vitamin (MULTIVITAMIN ADULT PO) (4 sources) [...] Class(es) Dates Sig (Normalized) Sig (Original) acetaminophen 325 mg / oxyCODONE hydrochloride 5 mg oral tablet (3 sources) Opioid Agonist Start: 06-18-2019 End: 06-20-2019 take 1 tablet by mouth every six hours oxycodone-acetamin ophen 5 mg-325 mg oral tablet ; 1 tab(s) orally every 6 hours Quantity: 12 Refills: 0 Ordered: 18-Jun-2019 Keysha Bah Start: 18-Jun-2019 End: 20-Jun-2019 Status: Other Generic Substitution Allowed Comments: Caution [place] law prohibits the transfer of this drug [...] than prescribed may cause serious breathing problems. azithromycin 250 mg oral tablet (4 sources) Macrolide Antimicrobial Start: 04-29-2021 Azithromycin 250 MG Oral Tablet TAKE 2 [...] oral capsule (9 sources) Nitrofuran Antibacterial Start: 021 End: take 1 capsule by mouth twice daily Nitrofurantoin Monohyd Macro 100 MG Oral Capsule TAKE 1 CAPSULE TWICE DAILY UNTIL GONE. Quantity: 6 Refills: 0 Ordered: 02-Mar-2021 Chica Wisdom MD Start : 02-Mar-2021 Active Start: 06-02-2020 take 1 capsule by [facility] every twelve hours Nitrofurantoin Monohyd Macro [...] [Other iron deficiency anemias] Onset: 01-01-2025 Episodic Disorders of teeth and jaw (4 sources) Dental caries, unspecified; Translations: [Other specified disorders of teeth and supporting structures] Onset: 04-24-2024 01-25-2025 Episodic E Codes: Fall (1 source) Fall [...] [Acute pharyngitis] Episodic Pleurisy; pneumothorax; pulmonary collapse (4 sources) Pneumothorax, unspecified; Translations: [Other pneumothorax] Onset: 01-01-2025 Episodic Poisoning [...] [Unspecified abdominal pain] Onset: 05-04-2024 06-26-2021 Episodic Genitourinary symptoms and ill-defined conditions (20 sources) Other abnormal findings in urine; Translations: [Dysuria] Onset: 07-30-2018 Episodic Other aftercare (1 source) Other usp (current) drug therapy; Translations: [Other usp (current) drug therapy] Onset: 09-08-2022 Episodic Other [...] Name Value Interpretation Reference Range Facility 36on 03-12-2025 36 Called patient for hospital follow up Are you having any of the following : Shortness of Breath No Chest Pain No Lower extremity Swelling No Drainage from incision No Fever or Chills No Issues with bowel movements or urination No Lightheadedness or Dizziness No Did you leave the hospital with all of your medications? Yes Have you been taking your blood pressure? No Reviewed upcoming appointment details with patient March 18 @ 1:15. Any questions or concerns? Right upper arm to right breast numbess tingling updated Dr. Velázquez. Normal [facility] BASIC METABOLIC PANELon 05-0 Anion gap [Moles/Vol] 12 mmol/L Normal 7-20 [facility] Comment on above: Performed By: #### L [id number] #### [facility] ([facility]) [address] [place] [address] Calcium [Mass/Vol] 8.5 mg/dL Low 8.6-10.[address] [facility] Comment on above: Performed By: #### L [id number] #### [facility] ([facility]) [address] [place] [address] Chloride [Moles/Vol] 103 mmol/L Normal 98-107 [facility] Comment on above: Performed By: #### L [id number] #### [facility] ([facility]) [address] [place] [address] CO2 [Moles/Vol] 26 mmol/L Normal 21-31 [facility] Comment on above: Performed By: #### L [id number] #### [facility] ([facility]) [address] [place] [address] Creatinine [Mass/Vol] 0.48 mg/dL Low 0.60-1.20 [facility] Comment on above: Performed By: #### L [id number] #### [facility] ([facility]) [address] [place] [address] GLOMERULAR FILTRATION RATE ML/MIN/1.73 SQ M.PREDICTED 130.6 mL/min/1.73m*2 Normal >60.0 [facility] Comment on above: Result Comment: The [facility]???s estimated glomerular filtration rate (eGFR) will no [...] individuals. Performed By: #### L [id number] #### [facility] ([facility]) [address] [place] [address] Glucose [Mass/Vol] 85 mg/dL Normal 70-[address] [facility] Comment on above: Performed By: #### L [id number] #### [facility] ([facility]) [address] [place] [address] Potassium [Moles/Vol] 4.2 mmol/L Normal 3.5-5.1 [facility] Comment on above: Performed By: #### L [id number] #### [facility] ([facility]) [address] [place] [address] Sodium [Moles/Vol] 137 mmol/L Normal 136-[address] [facility] Comment on above: Performed By: #### L [id number] #### [facility] ([facility]) [address] [place] [address] Urea nitrogen [Mass/Vol] 20 mg/dL Normal 7-25 [facility] Comment on above: Performed By: #### L [id number] #### [facility] ([facility]) [address] [place] [address] UREA NITROGEN/CREATININ E (MASS RATIO) IN SER/PLAS 41.7 Normal [facility] Comment on above: Performed By: #### L [id number] #### [facility] ([facility]) [address] [place] [address] CBCon 03-11-2025 Erythrocyte distribution width (RBC) [Ratio] 14.0 % Normal 11.5-15.0 [facility] Comment on above: Performed By: #### L [id number] #### [facility] , ERYTHROCYTE MEAN CORPUSCULAR HEMOGLOBIN CONCENTRATION (G/DL) BY AUTOMATED 31.3 g/dL Low 32.0-35.0 [facility] Comment on above: Performed By: #### L [id number] #### [facility] , Hematocrit (Bld) [Volume fraction] 33.2 % Low 36.0-45.0 [facility] Comment on above: Performed By: #### L [id number] #### [facility] , Hemoglobin (Bld) [Mass/Vol] 10.4 g/dL Low 12.0-15.0 [facility] Comment on above: Performed By: #### L [id number] #### [facility] , MCH (RBC) [Entitic mass] 25.9 pg Low 27.0-33.0 [facility] Comment on above: Performed By: #### L [id number] #### [facility] , MCV (RBC) [Entitic vol] 82.6 fL Normal 82.0-98.0 [facility] Comment on above: Performed By: #### L [id number] #### [facility] , PLATELETS (10*3/UL) IN BLOOD AUTOMATED COUNT 296 10*3/uL Normal 150-400 [facility] Comment on above: Performed By: #### L [id number] #### [facility] , RBC (Bld) [#/Vol] 4.02 10*6/uL Normal 3.80-5.00 [facility] Comment on above: Performed By: #### L [id number] #### [facility] , WBC (Bld) [#/Vol] 5.02 10*3/uL Normal 4.00-10.60 [facility] Comment on above: Performed By: #### L [id number] #### [facility] , DSon 03-11-2025 DS Admission Admitted 03/05/2025 for Pneumothorax Discharge Diagnosis Recurrent pneumothorax History of substance dependence (CMS/HCC) Anxiety and depression Postoperative anemia due to acute blood loss Atelectasis, bilateral Discharge Disposition Home or Self Care () Discharge Medications Your medication list START taking these medications Instructions Last Dose Given Next Dose Due docusate sodium 100 mg capsule Commonly known as: Colace Take 2 capsules (200 mg) by mouth if needed in the morning and at bedtime (Narcotic Constipation). oxyCODONE 5 mg immediate release tablet Commonly known as: Roxicodone Take 1 tablet (5 mg) by mouth every 6 (six) hours if needed for moderate pain (4-7 pain score) for up to 5 days. CHANGE how you take these medications Instructions Last Dose Given Next Dose Due acetaminophen 500 mg tablet Commonly known as: Tylenol What changed: how much to take when to take this reasons to take this Take 1 tablet (500 mg) by mouth every 6 (six) hours if needed for mild pain (1-3 pain score) for up to 291 doses. CONTINUE taking these medications Instructions Last Dose Given Next Dose Due FLUoxetine 40 mg capsule Commonly known as: PROzac STOP taking these medications ARIPiprazole 5 mg tablet Commonly known as: Abilify ferrous sulfate 325 (65 Fe) MG tablet gabapentin 300 mg capsule Commonly known as: Neurontin Where to Get Your Medications These medications were sent to [facility] - [place], [place] - [address] [place] [address], [facility] [address] acetaminophen 500 mg tablet docusate sodium 100 mg capsule oxyCODONE 5 mg immediate release tablet Activity Do not lift anything greater than 5lbs for 4 weeks. Normal activity as tolerated No driving for 2-3 weeks or while taking narcotics. Showering instructions: May resume showering, okay to wash incisions with mild soap and water. Do not scrub incisions. Diet Regular Diet Hospital Course 29-year-old female with history of spontaneous pneumothorax of the right lung. The initial pneumothorax was in December and she was treated with chest tube decompression and catheter pleurodesis with doxycycline in January,. She presented to the emergency department in [place] on 03/05/25 and was recommended for transfer to [facility] for surgical evaluation. Upon arrival to [facility] she was in stable condition with minimal chest discomfort. No shortness of breath or supplemental oxygen needs. Pulmonology team placed a right chest tube with good results. She was evaluated by the CT surgery team and we recommended right thoracoscopy with decortication and mechanical pleurodesis. She underwent the following surgical procedure on 03/08/2025: RIGHT VATS, APICAL BLEB RESECTION, MECHANICAL PLEURODESIS. She tolerated the procedure well. There were no complications. She was taken to the surgical ICU postoperatively. 03/09/2025: POD #1. No acute events overnight. Pain controlled with current pain regimen. No difficulty with transfers and ambulation. Denies dizziness lightheadedness. No abdominal pain, nausea or vomiting. Tolerating regular diet. No numbness, tingling, or weakness of bilateral upper or lower extremities. No fever or chills. Blood pressure and heart rate remain in stable. Patient is doing well. 03/10/2025: POD #2. No events overnight. Chest tube clamped at 0730 am, tolerating well. Denies SOB. Helped to beside commode and endorsed bowel movement. Minimal output from chest tube overnight. Remains on room air. Pain well controlled. Denies fevers or chills. Chest tube site and surgical incision intact. 03/11/2025: POD #3. Yesterday attempted to clamp chest tube, small right apical PTX seen. Patient remained asymptomatic. Chest tube placed to suction overnight. Placed on water seal this morning at 5am and CXR repeated, showing stable small right apical PTX. Issues with chest tube site pain overnight. Denies SOB, fevers or chills. Ambulating in room with minimal assistance. Right pleural chest tube was removed, patient post CXR showed small right apical PTX that as reviewed with Dr. Velázquez. She remained a symptomatic and was clinically stable to discharge home. Informed of warning signs of SOB or chest pain and to go immediately to the ER for evaluation. Written and verbal discharge instructions were provided. Education provided on care of surgical incision and wounds and signs and symptoms to monitor such as increased redness, drainage, odor, or worsening pain. Caution need to call and report fever, chills, increased fatigue, difficulty breathing when lying flat, swelling in hands or feet, shortness of breath, dizziness or lightheadedness, or other new or worsening symptoms. Education provided on discharge medications. Reviewed what medications are used for, their benefits as well as side effects. Discu (more content not included)... Normal [facility] MAGNESIUMon 03-11-2025 Magnesium [Mass/Vol] 1.9 mg/dL Normal 1.9-2.7 [facility] Comment on above: Performed By: #### L [id number] #### [facility] , 03-10-2025 Problem: Pain - Adul t Goal: Verbalizes/displays adequate comfort level or baseline comfort level Outcome: Progressing Flowsheets (Taken 03/10/20252309) Verbalizes/displays adequate comfort level or baseline comfort level: Encourage patient to monitor pain and request assistance Assess pain using appropriate pain scale Administer analgesics based on type and severity of pain and evaluate response Problem: Safety - Adult Goal: Free from fall injury Flowsheets (Taken 03/10/20252309) Free from fall injury: Assess patient frequently for physical needs Modify environment to reduce risk of injury Normal [facility] 30 The patient is Moder ately Stable - Low risk of patient condition declining or worsening The patient's goals for the shift include comfort The clinical goals for the shift include stable vitals, safety Problem: Respiratory - Adult Goal: Achieves optimal ventilation and oxygenation Outcome: Progressing Problem: Cardiovascular - Adult Goal: Maintains optimal cardiac output and hemodynamic stability Outcome: Progressing Normal [facility] 30 The patient is Moder ately Stable - Low risk of patient condition declining or worsening The patient's goals for the shift include comfort The clinical goals for the shift include stable hemodynamics Normal [facility] BASIC METABOLIC PANELon 05-0 Anion gap [Moles/Vol] 11 mmol/L Normal - [facility] Comment on above: Performed By: #### L [id number] #### [facility] ([facility]) [address] [place] [address] Calcium [Mass/Vol] 8.6 mg/dL Normal 8.6-10.[address] [facility] Comment on above: Performed By: #### L [id number] #### [facility] ([facility]) [address] [place] [address] Chloride [Moles/Vol] 103 mmol/L Normal 98-107 [facility] Comment on above: Performed By: #### L [id number] #### [facility] ([facility]) [address] [place] [address] CO2 [Moles/Vol] 28 mmol/L Normal - [facility] Comment on above: Performed By: #### L [id number] #### [facility] ([facility]) [address] [place] [address] Creatinine [Mass/Vol] 0.49 mg/dL Low 0.60-1.20 [facility] Comment on above: Performed By: #### L [id number] #### [facility] ([facility]) [address] [place] [address] GLOMERULAR FILTRATION RATE ML/MIN/1.73 SQ M.PREDICTED 129.9 mL/min/1.73m*2 Normal >60.0 [facility] Comment on above: Result Comment: The [facility]???s estimated glomerular filtration rate (eGFR) will no [...] individuals. Performed By: #### L [id number] #### [facility] ([facility]) [address] [facility] [place] [address] Glucose [Mass/Vol] 92 mg/dL Normal 70-[address] [facility] Comment on above: Performed By: #### L [id number] #### [facility] ([facility]) [address] [place] [address] Potassium [Moles/Vol] 4.0 mmol/L Normal 3.5-5.1 [facility] Comment on above: Performed By: #### L [id number] #### [facility] ([facility]) [address] [place] [address] Sodium [Moles/Vol] 138 mmol/L Normal 136-[address] [facility] Comment on above: Performed By: #### L [id number] #### [facility] ([facility]) [address] [place] [address] Urea nitrogen [Mass/Vol] 24 mg/dL Normal 7-25 [facility] Comment on above: Performed By: #### L [id number] #### [facility] ([facility]) [address] [place] [address] UREA NITROGEN/CREATININ E (MASS RATIO) IN SER/PLAS 49.0 Normal [facility] Comment on above: Performed By: #### L [id number] #### [facility] ([facility]) [address] [place] [address] CBCon 03-10-2025 Erythrocyte distribution width (RBC) [Ratio] 14.0 % Normal 11.5-15.0 [facility] Comment on above: Performed By: #### L [id number] #### [facility] , ERYTHROCYTE MEAN CORPUSCULAR HEMOGLOBIN CONCENTRATION (G/DL) BY AUTOMATED 31.9 g/dL Low 32.0-35.0 [facility] Comment on above: Performed By: #### L [id number] #### [facility] , Hematocrit (Bld) [Volume fraction] 31.7 % Low 36.0-45.0 [facility] Comment on above: Performed By: #### L [id number] #### [facility] , Hemoglobin (Bld) [Mass/Vol] 10.1 g/dL Low 12.0-15.0 [facility] Comment on above: Performed By: #### L [id number] #### [facility] , MCH (RBC) [Entitic mass] 26.6 pg Low 27.0-33.0 [facility] Comment on above: Performed By: #### L [id number] #### [facility] , MCV (RBC) [Entitic vol] 83.6 fL Normal 82.0-98.0 [facility] Comment on above: Performed By: #### L [id number] #### [facility] , PLATELETS (10*3/UL) IN BLOOD AUTOMATED COUNT 316 10*3/uL Normal 150-400 [facility] Comment on above: Performed By: #### L [id number] #### [facility] , RBC (Bld) [#/Vol] 3.79 10*6/uL Low 3.80-5.00 [facility] Comment on above: Performed By: #### L [id number] #### [facility] , WBC (Bld) [#/Vol] 6.55 10*3/uL Normal 4.00-10.60 [facility] Comment on above: Performed By: #### L [id number] #### [facility] , MAGNESIUMon 03-10-2025 Magnesium [Mass/Vol] 1.9 mg/dL Normal 1.9-2.7 [facility] Comment on above: Performed By: #### L [id number] ####[facility] ([facility]ER)[address] [place] [address] NURSNOTEon 03-10-2025 NURSNOTE Patient Name: Juliette arnett : 1995 Primary Care Physician: Millicent Hudson CNP Admission Date: 03/05/2025 RAPID RESPONSE TEAM ICU TRANSFER FOLLOW-UP NOTE SUBJECTIVE / OBJECTIVE: Follow-up for previous transfer out of the ICU notification for 03/09 at 2204. ASSESSMENT / INTERVENTIONS: Recent Vital Signs: Vitals: 03/10/25 1130 03/10/25 1338 03/10/25 1946 03/10/252011 BP: 108/56 125/59 BP Location: Right arm Right arm Patient Position: Lying Lying Pulse: 82 64 64 77 Resp: 14 16 21 14 Temp: 36.5 ???C (97.7 ???F) 35.3 ???C (95.5 ???F) TempSrc: Temporal Temporal SpO2: 98% 99% 98% 98% Weight: Height: Latest Labs: Lab Results Component Value Date WBC 6.55 03/10/2025 WBC 9.13 03/09/2025 HGB 10.1 (L) 03/10/2025 HGB 10.8 (L) 03/09/2025 HCT 31.7 (L) 03/10/2025 HCT 33.7 (L) 03/09/2025 MCV 83.6 03/10/2025 MCV 81.2 (L) 03/09/2025 PLT 316 03/10/2025 PLT 339 03/09/2025 NEUTROABS 3.95 01/06/2025 NEUTROABS 5.45 01/05/2025 Lab Results Component Value Date GLUCOSE 92 03/10/2025 GLUCOSE 121 (H) 03/09/2025 CALCIUM 8.6 03/10/2025 CALCIUM 8.5 (L) 03/09/2025 NA 138 03/10/2025 NA 137 03/09/2025 K 4.0 03/10/2025 K 4.1 03/09/2025 CO2 28 03/10/2025 CO2 28 03/09/2025 CL 103 03/10/2025 CL 102 03/09/2025 BUN 24 03/10/2025 BUN 13 03/09/2025 CREATININE 0.49 (L) 03/10/2025 CREATININE 0.51 (L) 03/09/2025 EGFR 129.9 03/10/2025 EGFR 128.7 03/09/2025 BCR 49.0 03/10/2025 BCR 25.5 03/09/2025 Lab Results Component Value Date MG 1.9 03/10/2025 MG 2.0 03/09/2025 No results found for: PHOS Lab Results Component Value Date ALT 15 01/01/2025 AST 21 01/01/2025 ALKPHOS 65 01/01/2025 BILITOT 0.5 01/01/2025 Lab Results Component Value Date INR 1.10 03/08/2025 INR 1.14 (H) 03/07/2025 Follow-up: Patient seen resting in bed. Primary RN consulted for follow up. The patient's labs and vitals are stable at this time. The primary RN voiced no concerns at this time. The automobile service writer urged the primary RN to call the rapid team if any concerns arise overnight. Guy Waldron RN Rapid Response Team Nurse [phone] 03/10/2025 10:24 PM Normal [facility] NURSNOTE Patient Name: Juliette arnett : 1995 Primary Care Physician: Millicent Hudson CNP Admission Date: 03/05/2025 RAPID RESPONSE TEAM ICU TRANSFER FOLLOW-UP NOTE SUBJECTIVE / OBJECTIVE: Follow-up for previous transfer out of the ICU notification for 03/09 at 2204. ASSESSMENT / INTERVENTIONS: Recent Vital Signs: Vitals: 03/10/25 0800 03/10/25 1015 03/10/25 1130 03/10/25 1338 BP: 104/68 115/59 108/56 BP Location: Right arm Right arm Patient Position: Sitting Lying Pulse: 83 76 82 64 Resp: 13 18 14 16 Temp: 36.5 ???C (97.7 ???F) 36.5 ???C (97.7 ???F) TempSrc: Temporal Temporal SpO2: 99% 96% 98% 99% Weight: Height: Latest Labs: Lab Results Component Value Date WBC 6.55 03/10/2025 WBC 9.13 03/09/2025 HGB 10.1 (L) 03/10/2025 HGB 10.8 (L) 03/09/2025 HCT 31.7 (L) 03/10/2025 HCT 33.7 (L) 03/09/2025 MCV 83.6 03/10/2025 MCV 81.2 (L) 03/09/2025 PLT 316 03/10/2025 PLT 339 03/09/2025 NEUTROABS 3.95 01/06/2025 NEUTROABS 5.45 01/05/2025 Lab Results Component Value Date GLUCOSE 92 03/10/2025 GLUCOSE 121 (H) 03/09/2025 CALCIUM 8.6 03/10/2025 CALCIUM 8.5 (L) 03/09/2025 NA 138 03/10/2025 NA 137 03/09/2025 K 4.0 03/10/2025 K 4.1 03/09/2025 CO2 28 03/10/2025 CO2 28 03/09/2025 CL 103 03/10/2025 CL 102 03/09/2025 BUN 24 03/10/2025 BUN 13 03/09/2025 CREATININE 0.49 (L) 03/10/2025 CREATININE 0.51 (L) 03/09/2025 EGFR 129.9 03/10/2025 EGFR 128.7 03/09/2025 BCR 49.0 03/10/2025 BCR 25.5 03/09/2025 Lab Results Component Value Date MG 1.9 03/10/2025 MG 2.0 03/09/2025 No results found for: PHOS Lab Results Component Value Date ALT 15 01/01/2025 AST 21 01/01/2025 ALKPHOS 65 01/01/2025 BILITOT 0.5 01/01/2025 Lab Results Component Value Date INR 1.10 03/08/2025 INR 1.14 (H) 03/07/2025 Follow-up: Patient is doing well at this time. No concerns from primary RN. If emergent concerns arise call rapid response team. Katerina Nichols RN Rapid Response Team Nurse [phone] 03/10/2025 5:37 PM Normal [facility] BASIC METABOLIC PANELon 05-0 Anion gap [Moles/Vol] 11 mmol/L Normal 7- [facility] Comment on above: Performed By: #### L [id number] ####[facility] (BEAKER)[address] [place] [address] Calcium [Mass/Vol] 8.5 mg/dL Low 8.6-10.[address] [facility] Comment on above: Performed By: #### L [id number] ####[facility] ([facility])[address] [place] [address] Chloride [Moles/Vol] 102 mmol/L Normal 98-107 [facility] Comment on above: Performed By: #### L [id number] ####[facility] ([facility])[address] [place] [address] CO2 [Moles/Vol] 28 mmol/L Normal 21-31 [facility] Comment on above: Performed By: #### L [id number] ####[facility] ([facility])[address] [place] [address] Creatinine [Mass/Vol] 0.51 mg/dL Low 0.60-1.20 [facility] Comment on above: Performed By: #### L [id number] ####[facility] ([facility])[address] [place] [address] GLOMERULAR FILTRATION RATE ML/MIN/1.73 SQ M.PREDICTED 128.7 mL/min/1.73m*2 Normal >60.0 [facility] Comment on above: Result Comment: The [facility]???s estimated glomerular filtration rate (eGFR) will no [...] of individuals. Performed By: #### L [id number] ####[facility] ([facility])[address] [place] [address] Glucose [Mass/Vol] 121 mg/dL High 70-[address] [facility] Comment on above: Performed By: #### L [id number] ####[facility] ([facility])[address] [place] [address] Potassium [Moles/Vol] 4.1 mmol/L Normal 3.5-5.1 [facility] Comment on above: Performed By: #### L [id number] ####[facility] ([facility])[address] [place] [address] Sodium [Moles/Vol] 137 mmol/L Normal 136-[address] [facility] Comment on above: Performed By: #### L [id number] ####[facility] ([facility])[address] [place] [address] Urea nitrogen [Mass/Vol] 13 mg/dL Normal 7-25 [facility] Comment on above: Performed By: #### L [id number] ####[facility] ([facility])[address] [place] [address] UREA NITROGEN/CREATININ E (MASS RATIO) IN SER/PLAS 25.5 Normal [facility] Comment on above: Performed By: #### L [id number] ####[facility] ([facility])[address] [place] [address] CBCon 03-09-2025 Erythrocyte distribution width (RBC) [Ratio] 13.3 % Normal 11.5-15.0 [facility] Comment on above: Performed By: #### L [id number] #### [facility] ([facility]) [address] [place] [address] ERYTHROCYTE MEAN CORPUSCULAR HEMOGLOBIN CONCENTRATION (G/DL) BY AUTOMATED 32.0 g/dL Normal 32.0-35.0 [facility] Comment on above: Performed By: #### L [id number] #### [facility] ([facility]) [address] [place] [address] Hematocrit (Bld) [Volume fraction] 33.7 % Low 36.0-45.0 [facility] Comment on above: Performed By: #### L [id number] #### [facility] ([facility]) [address] [place] [address] Hemoglobin (Bld) [Mass/Vol] 10.8 g/dL Low 12.0-15.0 [facility] Comment on above: Performed By: #### L [id number] #### [facility] ([facility]) [address] [place] [address] MCH (RBC) [Entitic mass] 26.0 pg Low 27.0-33.0 [facility] Comment on above: Performed By: #### L [id number] #### [facility] ([facility]) [address] [place] [address] MCV (RBC) [Entitic vol] 81.2 fL Low 82.0-98.0 [facility] Comment on above: Performed By: #### L [id number] #### [facility] ([facility]) [address] [place] [address] PLATELETS (10*3/UL) IN BLOOD AUTOMATED COUNT 339 10*3/uL Normal 150-400 [facility] Comment on above: Performed By: #### L [id number] #### [facility] ([facility]) [address] [place] [address] RBC (Bld) [#/Vol] 4.15 10*6/uL Normal 3.80-5.00 [facility] Comment on above: Performed By: #### L [id number] #### [facility] ([facility]) [address] [place] [address] WBC (Bld) [#/Vol] 9.13 10*3/uL Normal 4.00-10.60 [facility] Comment on above: Performed By: #### L [id number] #### [facility] ([facility]) [address] [place] [address] MAGNESIUMon 03-09-2025 Magnesium [Mass/Vol] 2.0 mg/dL Normal 1.9-2.7 [facility] Comment on above: Performed By: #### L [id number] ####[facility] ([facility])[address] [place] [address] POCT GLUCOSE METER UNSOLICIT ED RESULTSon 03-09-2025 Glucose [Mass/Vol] 112 mg/dL High 70-[address] [facility] Comment on above: Order Comment: Waive d Testing in the ED is performed under the ED CLIA certificate #[id number]. Result Comment: ebol tz Performed By: #### L [id number] #### [facility] (BEAKER) [address] [place] [address] 30on 03-08-2025 30 The patient is Moder ately Unstable - Medium risk of patient condition declining or worsening The patient's goals for the shift include bowel movement The clinical goals for the shift include stable vs Over the shift, the patient did not make progress toward the following goals. Barriers to progression include pain control. Recommendations to address these barriers include pain meds. Problem: Respiratory - Adult Goal: Achieves optimal ventilation and oxygenation Outcome: Progressing Flowsheets (Taken 03/08/20251999) Achieves optimal ventilation and oxygenation: Assess for changes in respiratory status Assess for changes in mentation and behavior Position to facilitate oxygenation and minimize respiratory effort Encourage broncho-pulmonary hygiene including cough, deep breathe, incentive spirometry Assess the need for suctioning and aspirate as needed Assess and instruct to report shortness of breath or any respiratory difficulty Problem: Cardiovascular - Adult Goal: Maintains optimal cardiac output and hemodynamic stability Outcome: Progressing Flowsheets (Taken 03/08/20251999) Maintains optimal cardiac output and hemodynamic stability: Monitor blood pressure and heart rate Monitor urine output and notify Licensed Independent Practitioner for values outside of normal range Assess for signs of decreased cardiac output Goal: Absence of cardiac dysrhythmias or at baseline Outcome: Progressing Flowsheets (Taken 03/08/20251999) Absence of cardiac dysrhythmias or at baseline: Monitor cardiac rate and rhythm Assess for signs of decreased cardiac output Problem: Pain Goal: LTG-Verbalize decrease in pain Outcome: Progressing Goal: LTG-Demostrate that the pain does not impair ADLs Outcome: Progressing Goal: STG-Pt will verbalize decreased discomfort Outcome: Progressing Problem: Pain - Adult Goal: Verbalizes/displays adequate comfort level or baseline comfort level Outcome: Progressing Problem: Safety - Adult Goal: Free from fall injury Outcome: Progressing Flowsheets (Taken 03/08/20251999) Free from fall injury: Assess patient frequently for physical needs Identify cognitive and physical deficits and behaviors that affect risk of falls Modify environment to reduce risk of injury Problem: Discharge Planning Goal: Discharge to home or other facility with appropriate resources Outcome: Progressing Problem: Chronic Conditions and Co-morbidities Goal: Patient's chronic conditions and co-morbidity symptoms are monitored and maintained or improved Outcome: Progressing Flowsheets (Taken 03/08/20251999) Care Plan - Patient's Chronic Conditions and Co-Morbidity Symptoms are Monitored and Maintained or Improved: Monitor and assess patient's chronic conditions and comorbid symptoms for stability, deterioration, or improvement Problem: Neurosensory - Adult Goal: Achieves stable or improved neurological status Outcome: Progressing Flowsheets (Taken 03/08/20251999) Achieves stable or improved neurological status: Assess for and report changes in neurological status Initiate measures to prevent increased intracranial pressure Maintain blood pressure and fluid volume within ordered parameters to optimize cerebral perfusion and minimize risk of hemorrhage Monitor temperature, glucose, and sodium. Initiate appropriate interventions as ordered Goal: Achieves maximal functionality and self care Outcome: Progressing Flowsheets (Taken 03/08/20251999) Achieves maximal functionality and self care: Monitor swallowing and airway patency with patient fatigue and changes in neurological status Encourage and assist patient to increase activity and self care with guidance from physical therapy/occupational therapy Encourage visually impaired, hearing impaired and aphasic patients to use assistive/communication devices Problem: Skin/Tissue Integrity - Adult Goal: Skin integrity remains intact Outcome: Progressing Flowsheets (Taken 03/08/20251999) Skin integrity remains intact: Monitor for areas of redness and/or skin breakdown Assess vascular access sites hourly Goal: Incisions, wounds, or drain sites healing without S/S of infection Outcome: Progressing Flowsheets (Taken 03/08/20251999) Incisions, wounds, or drain sites healing without sign and symptoms of infection: ADMISSION and DAILY: Assess and document risk factors for pressure ulcer development TWICE DAILY: Assess and document skin integrity TWICE DAILY: Assess and document dressing/incision, wound bed, drain sites and surrounding tissue Goal: Oral mucous membranes remain intact Outcome: Progressing Problem: Musculoskeletal - Adult Goal: Return mobility to safest level of function Outcome: Progressing Flowsheets (Taken 03/08/20251999) Return mobility to safest level of function: Assess patient stability and activity tolerance for standing, transferring and ambulating with or without as (more content not included)... Normal [facility] 30 The patient is Moder ately Stable - Low risk of patient condition declining or worsening The patient's goals for the shift include surgery The clinical goals for the shift include comfort, hemodynamically stable Over the shift, the patient did not make progress toward the following goals. Barriers to progression include . Recommendations to address these barriers include . Problem: Respiratory - Adult Goal: Achieves optimal ventilation and oxygenation Outcome: Progressing Flowsheets (Taken 03/08/2025734) Achieves optimal ventilation and oxygenation: Assess for changes in respiratory status Problem: Cardiovascular - Adult Goal: Maintains optimal cardiac output and hemodynamic stability Outcome: Progressing Flowsheets (Taken 03/08/2025734) Maintains optimal cardiac output and hemodynamic stability: Monitor blood pressure and heart rate Monitor urine output and notify Licensed Independent Practitioner for values outside of normal range Goal: Absence of cardiac dysrhythmias or at baseline Outcome: Progressing Flowsheets (Taken 03/08/2025734) Absence of cardiac dysrhythmias or at baseline: Monitor cardiac rate and rhythm Problem: Pain Goal: LTG-Verbalize decrease in pain Outcome: Progressing Goal: LTG-Demostrate that the pain does not impair ADLs Outcome: Progressing Goal: STG-Pt will verbalize decreased discomfort Outcome: Progressing Problem: Pain - Adult Goal: Verbalizes/displays adequate comfort level or baseline comfort level Outcome: Progressing Flowsheets (Taken 03/08/2025734) Verbalizes/displays adequate comfort level or baseline comfort level: Encourage patient to monitor pain and request assistance Assess pain using appropriate pain scale Problem: Safety - Adult Goal: Free from fall injury Outcome: Progressing Flowsheets (Taken 03/08/2025734) Free from fall injury: Assess patient frequently for physical needs Problem: Discharge Planning Goal: Discharge to home or other facility with appropriate resources Outcome: Progressing Flowsheets (Taken 03/08/2025734) Discharge to home or other facility with appropriate resources: Identify barriers to discharge with patient and caregiver Arrange for needed discharge resources and transportation as appropriate Problem: Chronic Conditions and Co-morbidities Goal: Patient's chronic conditions and co-morbidity symptoms are monitored and maintained or improved Outcome: Progressing Flowsheets (Taken 03/08/2025734) Care Plan - Patient's Chronic Conditions and Co-Morbidity Symptoms are Monitored and Maintained or Improved: Monitor and assess patient's chronic conditions and comorbid symptoms for stability, deterioration, or improvement Collaborate with multidisciplinary team to address chronic and comorbid conditions and prevent exacerbation or deterioration Normal [facility] BASIC METABOLIC PANELon 05-0 Anion gap [Moles/Vol] 10 mmol/L Normal 7-20 [facility] Comment on above: Order Comment: In PA CU Performed By: #### L [id number] #### [facility] (BEAKER) [address] [place] [address] Calcium [Mass/Vol] 8.4 mg/dL Low 8.6-10.[address] [facility] Comment on above: Order Comment: In PA CU Performed By: #### L [id number] #### [facility] ([facility]) [address] [place] [address] Chloride [Moles/Vol] 104 mmol/L Normal 98-107 [facility] Comment on above: Order Comment: In PA CU Performed By: #### L [id number] #### [facility] ([facility]) [address] [place] [address] CO2 [Moles/Vol] 27 mmol/L Normal 21-31 [facility] Comment on above: Order Comment: In PA CU Performed By: #### L [id number] #### [facility] ([facility]) [address] [place] [address] Creatinine [Mass/Vol] 0.59 mg/dL Low 0.60-1.20 [facility] Comment on above: Order Comment: In PA CU Performed By: #### L [id number] #### [facility] (BEAKER) [address] [place] [address] GLOMERULAR FILTRATION RATE ML/MIN/1.73 SQ M.PREDICTED 124.3 mL/min/1.73m*2 Normal >60.0 [facility] Comment on above: Order Comment: In PA CU Result Comment: The [facility]???s estimated glomerular filtration rate (eGFR) will no [...] individuals. Performed By: #### L [id number] #### [facility] ([facility]) [address] [place] [address] Glucose [Mass/Vol] 116 mg/dL High 70-[address] [facility] Comment on above: Order Comment: In PA CU Performed By: #### L [id number] #### [facility] ([facility]) [address] [place] [address] Potassium [Moles/Vol] 4.2 mmol/L Normal 3.5-5.1 [facility] Comment on above: Order Comment: In PA CU Performed By: #### L [id number] #### [facility] ([facility]) [address] [place] [address] Sodium [Moles/Vol] 137 mmol/L Normal 136-[address] [facility] Comment on above: Order Comment: In PA CU Performed By: #### L [id number] #### [facility] ([facility]) [address] [place] [address] Urea nitrogen [Mass/Vol] 18 mg/dL Normal 7-25 [facility] Comment on above: Order Comment: In PA CU Performed By: #### L [id number] #### [facility] ([facility]) [address] [place] [address] UREA NITROGEN/CREATININ E (MASS RATIO) IN SER/PLAS 30.5 Normal [facility] Comment on above: Order Comment: In PA CU Performed By: #### L [id number] #### [facility] ([facility]) [address] [place] [address] CBCon 03-08-2025 Erythrocyte distribution width (RBC) [Ratio] 13.2 % Normal 11.5-15.0 [facility] Comment on above: Order Comment: In PA CU Performed By: #### L [id number] ####[facility] ([facility])[address] [place] [address] ERYTHROCYTE MEAN CORPUSCULAR HEMOGLOBIN CONCENTRATION (G/DL) BY AUTOMATED 31.9 g/dL Low 32.0-35.0 [facility] Comment on above: Order Comment: In PA CU Performed By: #### L [id number] ####[facility] (BEAKER)[address] [place] [address] Hematocrit (Bld) [Volume fraction] 35.4 % Low 36.0-45.0 [facility] Comment on above: Order Comment: In PA CU Performed By: #### L [id number] ####[facility] ([facility])[address] [place] [address] Hemoglobin (Bld) [Mass/Vol] 11.3 g/dL Low 12.0-15.0 [facility] Comment on above: Order Comment: In PA CU Performed By: #### L [id number] ####[facility] (BEAKER)[address] [place] [address] MCH (RBC) [Entitic mass] 26.2 pg Low 27.0-33.0 [facility] Comment on above: Order Comment: In PA CU Performed By: #### L [id number] ####[facility] (BEAKER)[address] [place] [address] MCV (RBC) [Entitic vol] 81.9 fL Low 82.0-98.0 [facility] Comment on above: Order Comment: In PA CU Performed By: #### L [id number] ####[facility] (BEAKER)[address] [place] [address] PLATELETS (10*3/UL) IN BLOOD AUTOMATED COUNT 332 10*3/uL Normal 150-400 [facility] Comment on above: Order Comment: In PA CU Performed By: #### L [id number] ####[facility] (BEAKER)[address] [place] [address] RBC (Bld) [#/Vol] 4.32 10*6/uL Normal 3.80-5.00 [facility] Comment on above: Order Comment: In PA CU Performed By: #### L [id number] ####[facility] (BEAKER)[address] [place] [address] WBC (Bld) [#/Vol] 10.52 10*3/uL Normal 4.00-10.60 [facility] Comment on above: Order Comment: In PA CU Performed By: #### L [id number] ####[facility] (BEAKER)[address] [facility] [place] [place] [address] HISTOLOGY - TISSUE EXAMon LAB AP CASE REPORT Normal [facility] Comment on above: Order Comment: Pre-o p diagnosis:Recurrent pneumothorax [J93.9] Result Comment: Surg ical Pathology Case: [id number] Authorizing Provider: Heri Perez MD Collected: 03/08/2025 1041 Ordering Location: [facility] Main Operating Room Received: 03/08/2025 1238 Pathologist: Morris Santamaria MD Specimen: Other, RIGHT APICAL BLEB Performed By: #### L [id number] ####[facility] (BEAKER)[address] [place] [address] LAB AP CLINICAL INFORMATION Normal [facility] Comment on above: Order Comment: Pre-o p diagnosis:Recurrent pneumothorax [J93.9] Result Comment: Post -Op Diagnoses J93.9 - Recurrent pneumothorax [ICD-10-CM] Performed By: #### L [id number] ####[facility] (BEAKER)[address] [facility] [address] LAB AP GROSS DESCRIPTION A. Other. Normal [facility] Comment on above: Order Comment: Pre-o p diagnosis:Recurrent pneumothorax [J93.9] Result Comment: The specimen is received in formalin labeled Juliette Hernández and right apical bleb. It consists of a 12g, unoriented yan-pink to dusky purple lung wedge, measuring 7.6 x 2.8 x 2.1 cm. The resection margin is received closed with lines of silver metallic vianney, and the remaining pleura is smooth, glistening, and uniform. The resection margin is inked green. The specimen is serially sectioned to reveal-pink to red, spongy, unremarkable cut surfaces. No distinct dilated airspaces are grossly identified. Vertical Punch Operator sections are sequentially submitted in 4 cassettes. Shannon Lugo, Pathologists' Glaze Grinder student Emanuel Quinones Pathologists' Glaze Grinder Performed By: #### L [id number] ####[facility] ([facility])[address] [place] [address] LAB AP MICROSCOPIC DESCRIPTION Microscopic examination performed. [facility] Comment on above: Order Comment: Pre-o p diagnosis:Recurrent pneumothorax [J93.9] Performed By: #### L [id number] ####[facility] ([facility])[address] [place] [address] LAB AP REPORT FINAL DIAGNOSIS NARRATIVE Normal [facility] Comment on above: Order Comment: Pre-o p diagnosis:Recurrent pneumothorax [J93.9] Result Comment: A. L darrick, right apical bleb, resection: - Benign lung parenchyma with dilated airspaces, consistent with apical bleb. - No malignancy identified. Performed By: #### L [id number] ####[facility] ([facility])[address] [place] [address] HPon 03-08-2025 HP H&P reviewed. The pa tient was examined and there are no changes to the H&P. Normal [facility] MAGNESIUMon 03-08-2025 Magnesium [Mass/Vol] 2.4 mg/dL Normal 1.9-2.7 [facility] Comment on above: Order Comment: In PA CU Performed By: #### L [id number] #### [facility] ([facility]) [address] [place] [address] OPNOTEon 03-08-2025 OPNOTE RIGHT VATS, APICAL B LEB RESECTION, MECHANICAL PLEURODESIS (R) Operative Note Date: 03/05/2025 - 03/08/2025 Location: [facility] OR Name: Juliette Hernández, : 1995, Diagnosis Pre-op Diagnosis * Recurrent pneumothorax [J93.9] Post-op Diagnosis * Recurrent pneumothorax [J93.9] Procedures * RIGHT VATS, APICAL BLEB RESECTION, MECHANICAL PLEURODESIS Surgeons Primary: Heri Perez MD Glaze Grinder: Jose M Alvares SA Procedure Summary Anesthesia: General ASA: II Estimated Blood Loss: 5 ml Drains: * None in log * Specimens ID Source Type Tests Collected By Collected At Frozen? Priority Lab ID A Other Tissue HISTOLOGY - TISSUE EXAM Heri Perez MD 03/08/25 1041 Description: RIGHT APICAL BLEB Staff: Spring Bender: Joan Flores RN Relief Spring Bender: Davide Dunn RN Scrub Person: Grace Rincon, CERTIFIED SURGICAL ASSISTANT Indications: Juliette Hernández is an 29 y.o. female who is having surgery for Recurrent pneumothorax [J93.9]. Juliette Hernández is a 29 y.o. female presenting with a recurrent pneumothorax.. Patient was originally referred to our service on January 01 with a pneumothorax. After review of previous CAT scan 2 previous CAT scans it was felt that the second pneumothorax was an extension of the first that was not properly treated with the chest tube being and not in the chest properly. Patient was treated with chemical pleurodesis and was discharged. She states she did well until yesterday morning after she awoke developed chest pain went to the emergency room and clearly now has a a second a CHANDRIKA a recurrent pneumothorax. Patient had a chest tube placed by the flow match sofa cutter yesterday, and consult with pain for possible surgical intervention. Patient denies any new medical complaints since she was last here. Past medical history significant for Elias depression polysubstance abuse with a history of overdose. Patient states she has not used any substance in many years. She said that she quit pot few years ago is a non-smoker her family history is positive for lung cancer she does have a history of arrhythmia in her mother. Echocardiogram was performed on last admission. This reveals normal ejection fraction and normal valvular function. Procedure Details: The patient was seen in the preoperative area. The risks, benefits, complications, treatment options, non-operative alternatives, expected recovery and outcomes were discussed with the patient. The possibilities of reaction to medication, pulmonary aspiration, injury to surrounding structures, bleeding, recurrent infection, the need for additional procedures, failure to diagnose a condition, and creating a complication requiring transfusion or operation were discussed with the patient. The patient concurred with the proposed plan, giving informed consent. The site of surgery was properly noted/marked if necessary per policy. The patient has been actively warmed in preoperative area. Preoperative antibiotics have been ordered and given within 1 hours of incision. Venous thrombosis prophylaxis with standard bilateral compression devices. Procedure: DLET placed by anesthesia position confirmed. Following prep and drape she was positioned in lateral decubitus position with right side up. All bony prominences were protected and axillary roll placed. Two thorascopic ports were created in the 5th and 6 th interspace anteriorly and posteriorly. A soft tissue retractor was placed in the working port which was 3 cm in length. 10 mm camera inserted and thorough inspection of the lung parenchyma and pleural space done. Minimal adhesions were noted. Apical segment of the right lung was excised with 60mm purple endoscoscopic linear stapler. Progel was administered to the suture line. Mechanical pleurodesis of the parietal pleura was undertaken followed by placement of 28F chest tube through the camera port. 25 ml 0.25% marcaine was injected into the intercostal spaces under direct vision. Incision was closed in layers. She was extubated and taken to the recovery room in stable condition. HREI PEREZ MD Physician Cardiac Surgery [phone] Normal [facility] POCT GLUCOSE METER UNSOLICIT ED RESULTSon 03-08-2025 Glucose [Mass/Vol] 150 mg/dL High 70-[address] [facility] Comment on above: Order Comment: Waive d Testing in the ED is performed under the ED CLIA certificate #[id number]. Result Comment: kbod is Performed By: #### L [id number] ####[facility] ([facility])[address] [place] [address] Glucose [Mass/Vol] 99 mg/dL Normal 70-[address] [facility] Comment on above: Order Comment: Waive d Testing in the ED is performed under the ED CLIA certificate #[id number]. Result Comment: deepthi beni Performed By: #### L [id number] ####[facility] ([facility])[address] [place] [address] Glucose [Mass/Vol] 113 mg/dL High 70-[address] [facility] Comment on above: Order Comment: Waive d Testing in the ED is performed under the ED CLIA certificate #[id number]. Result Comment: [facility] Performed By: #### L [id number] #### [facility] , PROTIME-INRon 03-08-2025 INR IN PPP BY COAGULATION ASSAY 1.10 Normal 0.90-1.10 [facility] Comment on above: Order Comment: In PA CU Result Comment: [facility] P RECOMMENDED INR FOR WARFARIN THERAPY CONDITION INR PROPHYLAXIS OF VENOUS THROMBOSIS 2-3 (HIGH-RISK SURGERY) TREATMENT OF VENOUS THROMBOSIS 2-3 TREATMENT OF PULMONARY EMBOLISM 2-3 PREVENTION OF SYSTEMIC EMBOLISM: 2-3 ACUTE MYOCARDIAL INFARCTION TISSUE HEART VALVES VALVULAR HEART DISEASE ATRIAL FIBRILLATION RECURRENT SYSTEMIC EMBOLISM MECHANICAL HEART VALVE 2.5-3.5 FROM: ORAL ANTICOAGULANTS. MECHANISM OF ACTION, CLINICAL EFFECTIVENESS, AND OPTIMAL THERAPEUTIC RANGE. CHEST 1995;108:231S-246S. Performed By: #### L [id number] #### [facility] [employer] [facility] [address] [place] [address] PROTHROMBIN TIME (PT) IN PPP BY COAGULATION ASSAY 14.2 Seconds Normal 12.3-14.8 [facility] Comment on above: Order Comment: In PA CU Performed By: #### L [id number] #### [facility] [employer] [facility] [address] [place] [address] TYPE AND SCREENon 03-08-2025 AB SCREEN Negative Normal [facility] Comment on above: Performed By: #### L [id number] #### [facility] , ABO group Nom (Bld) B Normal [facility] Comment on above: Performed By: #### L [id number] #### [facility] , RH TYPE IN BLOOD Positive Normal [facility] Comment on above: Performed By: #### L [id number] #### [facility] , 3003-07-2025 30 The patient is Moder ately Stable - Low risk of patient condition declining or worsening The patient's goals for the shift include comfort The clinical goals for the shift include comfort Over the shift, the patient did make progress toward the following goals. Problem: Respiratory - Adult Goal: Achieves optimal ventilation and oxygenation Outcome: Progressing Flowsheets (Taken 03/07/20251816) Achieves optimal ventilation and oxygenation: Assess for changes in respiratory status Assess for changes in mentation and behavior Position to facilitate oxygenation and minimize respiratory effort Oxygen supplementation based on oxygen saturation or arterial blood gases Initiate smoking cessation protocol as indicated Encourage broncho-pulmonary hygiene including cough, deep breathe, incentive spirometry Assess and instruct to report shortness of breath or any respiratory difficulty Respiratory therapy support as indicated Assess the need for suctioning and aspirate as needed Problem: Pain - Adult Goal: Verbalizes/displays adequate comfort level or baseline comfort level Outcome: Progressing Flowsheets (Taken 03/07/20251816) Verbalizes/displays adequate comfort level or baseline comfort level: Encourage patient to monitor pain and request assistance Assess pain using appropriate pain scale Administer analgesics based on type and severity of pain and evaluate response Implement non-pharmacological measures as appropriate and evaluate response Problem: Safety - Adult Goal: Free from fall injury Outcome: Progressing Flowsheets (Taken 03/07/20251816) Free from fall injury: Assess patient frequently for physical needs Identify cognitive and physical deficits and behaviors that affect risk of falls [place] fall precautions as indicated by assessment Educate patient/family on patient safety, including physical limitations Instruct patient to call for assistance with activity based on assessment Modify environment to reduce risk of injury Consider OT/PT consult to assist with strengthening/mobility Problem: Discharge Planning Goal: Discharge to home or other facility with appropriate resources Outcome: Progressing Flowsheets (Taken 03/07/20251816) Discharge to home or other facility with [...] maintained or improved Outcome: Progressing Flowsheets (Taken 03/07/20251816) Care Plan - Patient's Chronic Conditions and [...] and prevent overall improvement and discharge Normal [facility] NURSNOTEon 03-07-2025 NURSNOTE Patient experiencing 10/10 pain, not due for any pain medications until 1230. [employer] contacted primary team (Dr. Yang). Per Dr. Yang due to the current pain medications she is on and the increased Hulbert dose he prescribed this morning, he is not comfortable with prescribing any more pain medications. Dr. Yang recommended reaching out to CT surgery in case they are comfortable doing so. [employer] attempted calling through the [employer] phone [phone], going through the heel washer stringing machine operator, per heel washer stringing machine operator CT surgery on-call provider paged, and messaging on [employer]. Dr. Velázquez unavailable through [employer], unable to reach provider through any attempts with heel washer stringing machine operator. [employer] also spoke with SICU lead NIHARIKA Bird and still unable to reach CT surgery providers. Normal [facility] PROTIME-INRon 03-07-2025 INR IN PPP BY COAGULATION ASSAY 1.14 High 0.90-1.10 [facility] Comment on above: Result Comment: [facility] P RECOMMENDED INR FOR WARFARIN THERAPY CONDITION INR PROPHYLAXIS OF VENOUS THROMBOSIS 2-3 (HIGH-RISK SURGERY) TREATMENT OF VENOUS THROMBOSIS 2-3 TREATMENT OF PULMONARY EMBOLISM 2-3 PREVENTION OF SYSTEMIC EMBOLISM: 2-3 ACUTE MYOCARDIAL INFARCTION TISSUE HEART VALVES VALVULAR HEART DISEASE ATRIAL FIBRILLATION RECURRENT SYSTEMIC EMBOLISM MECHANICAL HEART VALVE 2.5-3.5 FROM: ORAL ANTICOAGULANTS. MECHANISM OF ACTION, CLINICAL EFFECTIVENESS, AND OPTIMAL THERAPEUTIC RANGE. CHEST 1995;108:231S-246S. Performed By: #### L [id number] ####[facility] ([facility])[address] [place] [address] PROTHROMBIN TIME (PT) IN PPP BY COAGULATION ASSAY 14.6 Seconds Normal 12.3-14.8 [facility] Comment on above: Performed By: #### L [id number] ####[facility] ([facility])[address] [place] [address] BASIC METABOLIC PANELon 05-0 -2024 Anion gap [Moles/Vol] 9 mmol/L Normal 7-20 [facility] Comment on above: Performed By: #### L [id number] ####[facility] ([facility])[address] [place] [address] Calcium [Mass/Vol] 8.6 mg/dL Normal 8.6-10.[address] [facility] Comment on above: Performed By: #### L [id number] ####[facility] ([facility])[address] [place] [address] Chloride [Moles/Vol] 107 mmol/L Normal 98-107 [facility] Comment on above: Performed By: #### L [id number] ####[facility] ([facility])[address] [place] [address] CO2 [Moles/Vol] 27 mmol/L Normal 21-31 [facility] Comment on above: Performed By: #### L [id number] ####[facility] ([facility])[address] [place] [address] Creatinine [Mass/Vol] 0.55 mg/dL Low 0.60-1.20 [facility] Comment on above: Performed By: #### L [id number] ####[facility] ([facility])[address] [place] [address] GLOMERULAR FILTRATION RATE ML/MIN/1.73 SQ M.PREDICTED 126.4 mL/min/1.73m*2 Normal >60.0 [facility] Comment on above: Result Comment: The [facility]???s estimated glomerular filtration rate (eGFR) will no [...] of individuals. Performed By: #### L [id number] ####[facility] ([facility])[address] [place] [address] Glucose [Mass/Vol] 112 mg/dL High 70-[address] [facility] Comment on above: Performed By: #### L [id number] ####[facility] ([facility])[address] [place] [address] Potassium [Moles/Vol] 4.2 mmol/L Normal 3.5-5.1 [facility] Comment on above: Performed By: #### L [id number] ####[facility] ([facility])[address] [place] [address] Sodium [Moles/Vol] 139 mmol/L Normal 136-[address] [facility] Comment on above: Performed By: #### L [id number] ####[facility] ([facility])[address] [place] [address] Urea nitrogen [Mass/Vol] 17 mg/dL Normal 7-25 [facility] Comment on above: Performed By: #### L [id number] ####[facility] ([facility])[address] [place] [address] UREA NITROGEN/CREATININ E (MASS RATIO) IN SER/PLAS 30.9 Normal [facility] Comment on above: Performed By: #### L [id number] ####[facility] ([facility])[address] [place] [address] CBCon 03-06-2025 Erythrocyte distribution width (RBC) [Ratio] 13.5 % Normal 11.5-15.0 [facility] Comment on above: Performed By: #### L [id number] ####[facility] ([facility])[address] [place] [address] ERYTHROCYTE MEAN CORPUSCULAR HEMOGLOBIN CONCENTRATION (G/DL) BY AUTOMATED 32.0 g/dL Normal 32.0-35.0 [facility] Comment on above: Performed By: #### L [id number] ####[facility] ([facility])[address] [place] [address] Hematocrit (Bld) [Volume fraction] 34.4 % Low 36.0-45.0 [facility] Comment on above: Performed By: #### L [id number] ####[facility] ([facility])[address] [place] [address] Hemoglobin (Bld) [Mass/Vol] 11.0 g/dL Low 12.0-15.0 [facility] Comment on above: Performed By: #### L [id number] ####[facility] ([facility])[address] [place] [address] MCH (RBC) [Entitic mass] 26.4 pg Low 27.0-33.0 [facility] Comment on above: Performed By: #### L [id number] ####[facility] ([facility])[address] [place] [address] MCV (RBC) [Entitic vol] 82.7 fL Normal 82.0-98.0 [facility] Comment on above: Performed By: #### L [id number] ####[facility] ([facility])[address] [place] [address] PLATELETS (10*3/UL) IN BLOOD AUTOMATED COUNT 300 10*3/uL Normal 150-400 [facility] Comment on above: Performed By: #### L [id number] ####[facility] ([facility])[address] [place] [address] RBC (Bld) [#/Vol] 4.16 10*6/uL Normal 3.80-5.00 [facility] Comment on above: Performed By: #### L [id number] ####[facility] ([facility])[address] [place] [address] WBC (Bld) [#/Vol] 6.14 10*3/uL Normal 4.00-10.60 [facility] Comment on above: Performed By: #### L [id number] ####[facility] ([facility])[address] [place] [address] CONSULTon 03-06-2025 CONSULT Reason For Consult Likely needs VATS History Of Present Illness Juliette Hernández is a 29 y.o. female presenting with a recurrent pneumothorax.. Patient was originally referred to our service on January 01 with a pneumothorax. After review of previous CAT scan 2 previous CAT scans it was felt that the second pneumothorax was an extension of the first that was not properly treated with the chest tube being and not in the chest properly. Patient was treated with chemical pleurodesis and was discharged. She states she did well until yesterday morning after she awoke developed chest pain went to the emergency room and clearly now has a a second a CHANDRIKA a recurrent pneumothorax. Patient had a chest tube placed by the flow match sofa cutter yesterday, and consult with pain for possible surgical intervention. Patient denies any new medical complaints since she was last here. Past medical history significant for Elias depression polysubstance abuse with a history of overdose. Patient states she has not used any substance in many years. She said that she quit pot few years ago is a non-smoker her family history is positive for lung cancer she does have a history of arrhythmia in her mother. Echocardiogram was performed on last admission. This reveals normal ejection fraction and normal valvular function. Past Medical History She has a past medical history of Pneumothorax. Surgical History She has no past surgical history on file. Family History Family History Problem Relation Name Age of Onset Arrhythmia Mother Social History She reports that she has never smoked. She has never used smokeless tobacco. She reports that she does not currently use alcohol. She reports that she does not currently use drugs after having used the following drugs: Other, Opium, Cocaine, and Crack cocaine. Allergies Patient has no known allergies. Medications Medications Prior to Admission Medication Sig Dispense Refill Last Dose acetaminophen (Tylenol) 500 mg tablet Take 2 tablets (1,000 mg) by mouth every 8 (eight) hours for 284 doses. (Patient taking differently: Take 1,000 mg by mouth every 8 (eight) hours if needed.) 30 tablet 0 Past Month ARIPiprazole (Abilify) 5 mg tablet Take 1 tablet (5 mg) by mouth in the morning for 93 doses. 30 tablet 3 Past Month ferrous sulfate 325 (65 Fe) MG tablet Take 1 tablet (325 mg) by mouth with breakfast for 93 doses. 30 tablet 3 03/05/2025 FLUoxetine (PROzac) 40 mg capsule Take 60 mg by mouth in the morning. 03/05/2025 gabapentin (Neurontin) 300 mg capsule Take 1 capsule (300 mg) by mouth three times daily for 282 doses. 90 capsule 3 03/05/2025 Active Hospital Medications Medication Dose Route Frequency Last Admin acetaminophen 650 mg oral q6h PRN ferrous sulfate 325 mg oral Daily with breakfast 325 mg at 03/06/25 0809 FLUoxetine 60 mg oral Daily 60 mg at 03/06/25 0809 gabapentin 300 mg oral TID 300 mg at 03/06/25 0810 HYDROcodone-acetaminophen 1 tablet oral q6h PRN 1 tablet at 03/06/25 0809 ketorolac 15 mg intravenous q6h PRN 15 mg at 03/05/25 2122 melatonin 5 mg oral Nightly PRN morphine 4 mg intravenous q4h PRN 4 mg at 03/06/25 0415 ondansetron ODT 4 mg oral q8h PRN Or ondansetron 4 mg intravenous q6h PRN Oxygen Therapy inhalation Continuous Oxygen On at 03/05/25 1430 sodium chloride 10 mL intravenous q8h PRN Review of Systems Review of systems 10 point is noncontributory. See HPI Last Recorded Vitals Patient Vitals for the past 24 hrs: BP Temp Temp src Pulse Resp SpO2 Height Weight 03/06/25 0815 111/71 36.6 ???C (97.9 ???F) Temporal 61 14 98 % -- -- 03/06/25 0411 -- -- -- -- -- -- -- 85.9 kg (189 lb 6.4 oz) 03/06/25 0400 -- -- -- 72 14 97 % -- -- 03/06/25 0016 102/89 36.3 ???C (97.3 ???F) -- 85 14 99 % -- -- 03/05/25 2000 90/69 36.4 ???C (97.5 ???F) -- 86 15 96 % -- -- 03/05/25 1840 124/67 -- -- 78 14 100 % -- -- 03/05/25 1705 121/72 36.1 ???C (97 ???F) Temporal 57 16 99 % -- -- 03/05/25 1430 -- -- -- -- -- 100 % -- -- 03/05/25 1411 -- -- -- -- -- -- 1.676 m (5' 6 ) 83.9 kg (185 lb) 03/05/25 1359 111/67 36.4 ???C (97.5 ???F) Temporal 64 14 -- -- -- Physical Exam BP 124/67 P 78 RR14 T 97.2 Gen: NAD, PERRLA EOMI, AO x3 No carotid bruits or adenopathy Lungs equal BS, sl wheeze on Right, with CT in [place] RRR no murmur Abd - sioft NT , Pos BS Extr. No calf tenderness, no edema , good pulses Neuro - physiologic and non focal Relevant Results Admission on 03/05/2025 Component Date Value Ref Range Status Sodium 03/05/2025 138 136 - 145 mmol/L Final Potassium 03/05/2025 3.8 3.5 - 5.1 mmol/L Final Chloride 03/05/2025 105 98 - 107 mmol/L Final CO2 03/05/2025 27 21 - 31 mmol/L Final BUN 03/05/2025 13 7 - 25 mg/dL Final Creatinine 03/05/2025 0.47 (L) 0.60 - 1.20 mg/dL Final Glucose 03/05/2025 83 70 - 100 mg/dL Final Calcium 03/05/2025 8.8 8.6 - 10.3 mg/dL Final Anion Gap 03/05/2025 10 7 - 20 mmol/L Final eGFR 03/05/2025 131.3 >60.0 (more content not included)... Normal [facility] HPon 03-06-2025 Reason For Consult Likely needs VATS History Of Present Illness Juliette Hernández is a 29 y.o. female presenting with a recurrent pneumothorax.. Patient was originally referred to our service on January 01 with a pneumothorax. After review of previous CAT scan 2 previous CAT scans it was felt that the second pneumothorax was an extension of the first that was not properly treated with the chest tube being and not in the chest properly. Patient was treated with chemical pleurodesis and was discharged. She states she did well until yesterday morning after she awoke developed chest pain went to the emergency room and clearly now has a a second a CHANDRIKA a recurrent pneumothorax. Patient had a chest tube placed by the flow match sofa cutter yesterday, and consult with pain for possible surgical intervention. Patient denies any new medical complaints since she was last here. Past medical history significant for Elias depression polysubstance abuse with a history of overdose. Patient states she has not used any substance in many years. She said that she quit pot few years ago is a non-smoker her family history is positive for lung cancer she does have a history of arrhythmia in her mother. Echocardiogram was performed on last admission. This reveals normal ejection fraction and normal valvular function. Past Medical History She has a past medical history of Pneumothorax. Surgical History She has no past surgical history on file. Family History Family History Problem Relation Name Age of Onset Arrhythmia Mother Social History She reports that she has never smoked. She has never used smokeless tobacco. She reports that she does not currently use alcohol. She reports that she does not currently use drugs after having used the following drugs: Other, Opium, Cocaine, and Crack cocaine. Allergies Patient has no known allergies. Medications Medications Prior to Admission Medication Sig Dispense Refill Last Dose acetaminophen (Tylenol) 500 mg tablet Take 2 tablets (1,000 mg) by mouth every 8 (eight) hours for 284 doses. (Patient taking differently: Take 1,000 mg by mouth every 8 (eight) hours if needed.) 30 tablet 0 Past Month ARIPiprazole (Abilify) 5 mg tablet Take 1 tablet (5 mg) by mouth in the morning for 93 doses. 30 tablet 3 Past Month ferrous sulfate 325 (65 Fe) MG tablet Take 1 tablet (325 mg) by mouth with breakfast for 93 doses. 30 tablet 3 03/05/2025 FLUoxetine (PROzac) 40 mg capsule Take 60 mg by mouth in the morning. 03/05/2025 gabapentin (Neurontin) 300 mg capsule Take 1 capsule (300 mg) by mouth three times daily for 282 doses. 90 capsule 3 03/05/2025 Active Hospital Medications Medication Dose Route Frequency Last Admin acetaminophen 650 mg oral q6h PRN ferrous sulfate 325 mg oral Daily with breakfast 325 mg at 03/06/25 0809 FLUoxetine 60 mg oral Daily 60 mg at 03/06/25 0809 gabapentin 300 mg oral TID 300 mg at 03/06/25 0810 HYDROcodone-acetaminophen 1 tablet oral q6h PRN 1 tablet at 03/06/25 0809 ketorolac 15 mg intravenous q6h PRN 15 mg at 03/05/25 2122 melatonin 5 mg oral Nightly PRN morphine 4 mg intravenous q4h PRN 4 mg at 03/06/25 0415 ondansetron ODT 4 mg oral q8h PRN Or ondansetron 4 mg intravenous q6h PRN Oxygen Therapy inhalation Continuous Oxygen On at 03/05/25 1430 sodium chloride 10 mL intravenous q8h PRN Review of Systems Review of systems 10 point is noncontributory. See HPI Last Recorded Vitals Patient Vitals for the past 24 hrs: BP Temp Temp src Pulse Resp SpO2 Height Weight 03/06/25 0815 111/71 36.6 ???C (97.9 ???F) Temporal 61 14 98 % -- -- 03/06/25 041 -- -- -- -- -- -- -- 85.9 kg (189 lb 6.4 oz) 03/06/25 0400 -- -- -- 72 14 97 % -- -- 03/06/25 0016 102/89 36.3 ???C (97.3 ???F) -- 85 14 99 % -- -- 03/05/251999 90/69 36.4 ???C (97.5 ???F) -- 86 15 96 % -- -- 03/05/25 1840 124/67 -- -- 78 14 100 % -- -- 03/05/25 1705 121/72 36.1 ???C (97 ???F) Temporal 57 16 99 % -- -- 03/05/25 1430 -- -- -- -- -- 100 % -- -- 03/05/25 1411 -- -- -- -- -- -- 1.676 m (5' 6 ) 83.9 kg (185 lb) 03/05/25 1359 111/67 36.4 ???C (97.5 ???F) Temporal 64 14 -- -- -- Physical Exam BP 124/67 P 78 RR14 T 97.2 Gen: NAD, PERRLA EOMI, AO x3 No carotid bruits or adenopathy Lungs equal BS, sl wheeze on Right, with CT in A[place] Cor RRR no murmur Abd - sioft NT , Pos BS Extr. No calf tenderness, no edema , good pulses Neuro - physiologic and non focal Relevant Results Admission on 03/05/2025 Component Date Value Ref Range Status Sodium 03/05/2025 138 136 - 145 mmol/L Final Potassium 03/05/2025 3.8 3.5 - 5.1 mmol/L Final Chloride 03/05/2025 105 98 - 107 mmol/L Final CO2 03/05/2025 27 21 - 31 mmol/L Final BUN 03/05/2025 13 7 - 25 mg/dL Final Creatinine 03/05/2025 0.47 (L) 0.60 - 1.20 mg/dL Final Glucose 03/05/2025 83 70 - 100 mg/dL Final Calcium 03/05/2025 8.8 8.6 - 10.3 mg/dL Final Anion Gap 03/05/2025 10 7 - 20 mmol/L Final eGFR 03/05/2025 131.3 >60.0 (more content not included)... Normal [facility] TOXICOLOGY SCREEN, URINEon 0 - AMPHETAMINE+METHAM PHETAMINE SCREEN (PRESENCE) IN URINE Negative Normal Negative [facility] Comment on above: Order Comment: Uncon firmed screening results should only be used for medical purposes. Performed By: #### L [id number] #### [facility] , BARBITURATES PRESENCE IN URINE BY SCREEN METHOD Negative Normal Negative [facility] Comment on above: Order Comment: Uncon firmed screening results should only be used for medical purposes. Performed By: #### L [id number] #### [facility] , Benzodiazepines Ql (U) Negative Normal Negative [facility] Comment on above: Order Comment: Uncon firmed screening results should only be used for medical purposes. Performed By: #### L [id number] #### [facility] , CANNABINOID (PRESENCE) IN URINE BY SCREEN METHOD Negative Normal Negative [facility] Comment on above: Order Comment: Uncon firmed screening results should only be used for medical purposes. Performed By: #### L [id number] #### [facility] , Cocaine Ql (U) Negative Normal Negative [facility] Comment on above: Order Comment: Uncon firmed screening results should only be used for medical purposes. Performed By: #### L [id number] #### [facility] , METHADONE (PRESENCE) IN URINE BY SCREEN METHOD Negative Normal Negative [facility] Comment on above: Order Comment: Uncon firmed screening results should only be used for medical purposes. Performed By: #### L [id number] #### [facility] , OPIATES (PRESENCE) IN URINE BY SCREEN METHOD Positive Abnormal Negative [facility] Comment on above: Order Comment: Uncon firmed screening results should only be used for medical purposes. Performed By: #### L [id number] #### [facility] , PHENCYCLIDINE PRESENCE IN URINE BY SCREEN METHOD Negative Normal Negative [facility] Comment on above: Order Comment: Uncon firmed screening results should only be used for medical purposes. Performed By: #### L [id number] #### [facility] , Propoxyphene Screen Ql (U) Negative Normal Negative [facility] Comment on above: Order Comment: Uncon firmed screening results should only be used for medical purposes. Performed By: #### L [id number] #### [facility] , TRICYCLIC ANTIDEPRESSANTS (PRESENCE) IN URINE Negative Normal Negative [facility] Comment on above: Order Comment: Uncon firmed screening results should only be used for medical purposes. Performed By: #### L [id number] #### [facility] , URINALYSISon 03-06-2025 BILIRUBIN, TOTAL PRESENCE IN URINE Negative Normal Negative [facility] Comment on above: Order Comment: Micro scopics not performed on urines with negative chemical reactions unless requested on original order. Performed By: #### L [id number] #### [facility] ([facility]) [address] [place] [address] Clarity (U) Clear Normal Clear [facility] Comment on above: Order Comment: Micro scopics not performed on urines with negative chemical reactions unless requested on original order. Performed By: #### L [id number] #### [facility] ([facility]) [address] [place] [address] Color (U) Light-Yellow Normal Colorless, Yellow, Light-Yellow [facility] Comment on above: Order Comment: Micro scopics not performed on urines with negative chemical reactions unless requested on original order. Performed By: #### L [id number] #### [facility] ([facility]) [address] [place] [address] GLUCOSE (MG/DL) IN URINE Normal Normal Normal [facility] Comment on above: Order Comment: Micro scopics not performed on urines with negative chemical reactions unless requested on original order. Performed By: #### L [id number] #### [facility] ([facility]) [address] [place] [address] HEMOGLOBIN PRESENCE IN URINE Negative Normal Negative [facility] Comment on above: Order Comment: Micro scopics not performed on urines with negative chemical reactions unless requested on original order. Performed By: #### L [id number] #### [facility] ([facility]) [address] [place] [address] Ketones Ql (U) Negative Normal Negative [facility] Comment on above: Order Comment: Micro scopics not performed on urines with negative chemical reactions unless requested on original order. Performed By: #### L [id number] #### [facility] ([facility]) [address] [place] [address] LEUKOCYTE ESTERASE PRESENCE IN URINE BY TEST STRIP Negative Normal Negative [facility] Comment on above: Order Comment: Micro scopics not performed on urines with negative chemical reactions unless requested on original order. Performed By: #### L [id number] #### [facility] ([facility]) [address] [place] [address] NITRITE PRESENCE IN URINE Negative Normal Negative [facility] Comment on above: Order Comment: Micro scopics not performed on urines with negative chemical reactions unless requested on original order. Performed By: #### L [id number] #### [facility] ([facility]) [address] [place] [address] pH (U) 6.5 [pH] Normal 5.0-8.0 [facility] Comment on above: Order Comment: Micro scopics not performed on urines with negative chemical reactions unless requested on original order. Performed By: #### L [id number] #### [facility] ([facility]) [address] [place] [address] Protein (U) [Mass/Vol] Negative Normal Negative [facility] Comment on above: Order Comment: Micro scopics not performed on urines with negative chemical reactions unless requested on original order. Performed By: #### L [id number] #### [facility] ([facility]) [address] [place] [address] Specific gravity (U) [Rel density] 1.020 Normal 1.010-1.030 [facility] Comment on above: Order Comment: Micro scopics not performed on urines with negative chemical reactions unless requested on original order. Performed By: #### L [id number] #### [facility] ([facility]) [address] [place] [address] UROBILINOGEN (MG/DL) IN URINE Normal Normal Normal [facility] Comment on above: Order Comment: Micro scopics not performed on urines with negative chemical reactions unless requested on original order. Performed By: #### L [id number] #### [facility] ([facility]) [address] [place] [address] BASIC METABOLIC PANELon 05-0 2-2024 Anion gap [Moles/Vol] 10 mmol/L Normal 7-20 [facility] Comment on above: Performed By: #### L [id number] ####[facility] ([facility])[address] [place] [address] Calcium [Mass/Vol] 8.8 mg/dL Normal 8.6-10.[address] [facility] Comment on above: Performed By: #### L [id number] ####[facility] ([facility]AK[facility])[address] [place] [address] Chloride [Moles/Vol] 105 mmol/L Normal 98-107 [facility] Comment on above: Performed By: #### L [id number] ####[facility] ([facility])[address] [place] [address] CO2 [Moles/Vol] 27 mmol/L Normal 21-31 [facility] Comment on above: Performed By: #### L [id number] ####[facility] ([facility] [place] [address] Creatinine [Mass/Vol] 0.47 mg/dL Low 0.60-1.20 [facility] Comment on above: Performed By: #### L [id number] ####[facility] ([facility] [place] [address] GLOMERULAR FILTRATION RATE ML/MIN/1.73 SQ M.PREDICTED 131.3 mL/min/1.73m*2 Normal >60.0 [facility] Comment on above: Result Comment: The [facility]???s estimated glomerular filtration rate (eGFR) will no [...] of individuals. Performed By: #### L [id number] ####[facility] ([facility])[address] [place] [address] Glucose [Mass/Vol] 83 mg/dL Normal 70-[address] [facility] Comment on above: Performed By: #### L [id number] ####[facility] (BE[facility])[address] [place] [address] Potassium [Moles/Vol] 3.8 mmol/L Normal 3.5-5.1 [facility] Comment on above: Performed By: #### L [id number] ####[facility] ([facility])[address] [place] [address] Sodium [Moles/Vol] 138 mmol/L Normal 136-[address] [facility] Comment on above: Performed By: #### L [id number] ####[facility] ([facility])[address] [place] [address] Urea nitrogen [Mass/Vol] 13 mg/dL Normal 7-25 [facility] Comment on above: Performed By: #### L [id number] ####[facility] ([facility])[address] [place] [address] UREA NITROGEN/CREATININ E (MASS RATIO) IN SER/PLAS 27.7 Normal [facility] Comment on above: Performed By: #### L [id number] ####[facility] ([facility])[address] [place] [address] CBCon 03-05-2025 Erythrocyte distribution width (RBC) [Ratio] 13.2 % Normal 11.5-15.0 [facility] Comment on above: Performed By: #### L [id number] ####[facility] ([facility])[address] [place] [address] ERYTHROCYTE MEAN CORPUSCULAR HEMOGLOBIN CONCENTRATION (G/DL) BY AUTOMATED 32.6 g/dL Normal 32.0-35.0 [facility] Comment on above: Performed By: #### L [id number] ####[facility] ([facility])[address] [place] [address] Hematocrit (Bld) [Volume fraction] 32.2 % Low 36.0-45.0 [facility] Comment on above: Performed By: #### L [id number] ####[facility] ([facility])[address] [place] [address] Hemoglobin (Bld) [Mass/Vol] 10.5 g/dL Low 12.0-15.0 [facility] Comment on above: Performed By: #### L [id number] ####[facility] ([facility])[address] [place] [address] MCH (RBC) [Entitic mass] 26.1 pg Low 27.0-33.0 [facility] Comment on above: Performed By: #### L [id number] ####[facility] ([facility])[address] [place] [address] MCV (RBC) [Entitic vol] 80.1 fL Low 82.0-98.0 [facility] Comment on above: Performed By: #### L [id number] ####[facility] ([facility])[address] [facility] [place] [address] PLATELETS (10*3/UL) IN BLOOD AUTOMATED COUNT 301 10*3/uL Normal 150-400 [facility] Comment on above: Performed By: #### L [id number] ####[facility] ([facility])[address] [facility] [address] RBC (Bld) [#/Vol] 4.02 10*6/uL Normal 3.80-5.00 [facility] Comment on above: Performed By: #### L [id number] ####[facility] ([facility])[address] [facility] [address] WBC (Bld) [#/Vol] 4.96 10*3/uL Normal 4.00-10.60 [facility] Comment on above: Performed By: #### L [id number] ####[facility] ([facility])[address] [place] [address] CONSULTon 03-05-2025 CONSULT Pulmonary Consult No te. Patient - Juliette Hernández Age - 29 y.o. - 1995 Date of Admission - 03/05/2025 1:58 PM HPI/Hospital Course Subjective Juliette Hernández 29 Year old lady transferred from outside hospital for management of recurrent pneumothorax, this time patient had pneumothorax third time for this year, patient had doxycycline pleurodesis in january for recurrent pneumothorax X2, patient presented to outside hospital for chest pain, CXR showed pneumothorax, transferred to [facility] for further management. SUBJECTIVE Patient comfortable, sitting in bed, not in respiratory distress, saturating in upper 90s in nasal cannula. OBJECTIVE Vitals height is 1.676 m (5' 6 ) and weight is 83.9 kg (185 lb). Her temporal temperature is 36.1 ???C (97 ???F). Her blood pressure is 121/72 and her pulse is 57. Her respiration is 16 and oxygen saturation is 99%. Temp: [36.1 ???C (97 ???F)-36.4 ???C (97.5 ???F)] 36.1 ???C (97 ???F) Heart Rate: [57-64] 57 Resp: [14-16] 16 BP: (111-121)/(67-72) 121/72 Physical Exam: BP 121/72 Pulse 57 Temp 36.1 ???C (97 ???F) (Temporal) Resp 16 Ht 1.676 m (5' 6 ) Wt 83.9 kg (185 lb) SpO2 99% BMI 29.86 kg/m??? General: Awake, Oriented X3, Comfortable. HEENT: Normocephalic, No obvious nasal discharge or Post nasal drip Lungs: Bilateral air entry, No Crept's, No Wheeze. Cardiac: Normal heart sounds, No remarkable murmur. Abdomen: soft, Non-tender Extremities: No major motor or sensory deficit. Integumentary: no Rash. Neuro: Oriented X 3, able to walk Weight: Admission weight: 83.9 kg (185 lb) Wt Readings from Last 1 Encounters: 03/05/25 83.9 kg (185 lb) Lab Results ABG: CBC: Results from last 7 days Lab Units 03/05/25 1459 WBC AUTO 10*3/uL 4.96 HEMOGLOBIN g/dL 10.5* HEMATOCRIT % 32.2* PLATELETS AUTO 10*3/uL 301 Coagulation: Metabolic Panel: Results from last 7 days Lab Units 03/05/25 1459 POTASSIUM mmol/L 3.8 CHLORIDE mmol/L 105 CO2 mmol/L 27 BUN mg/dL 13 CREATININE mg/dL 0.47* GLUCOSE mg/dL 83 CALCIUM mg/dL 8.8 Liver Panel: No lab exists for component: TOTALPROTEI , LABBILIRUBIN , TOTALBILIRUB , BILIRUB , BILIRUBIND Glucose: Hgb A1c: Cardiac: No lab exists for component: TROPI , TROPONIN Anemia Labs: Results from last 7 days Lab Units 03/05/25 1459 IRON ug/dL 37* TIBC ug/dL 395 IRON SATURATION % 9* Lipid Panel: No lab exists for component: CHOLHDL Urine Labs: No results found for: WBCU , UROBILINOGEN Additional Labs: No lab exists for component: LACTICACID , PROCALCITON Radiology XR chest 1 view Narrative: XR CHEST 1 VIEW 03/05/2025 2:25 PM CLINICAL INDICATIONS: Portable single view chest dated 03/05/2025 2:43 PM INDICATION: Pneumothorax. FINDINGS: Comparison is 01/07/2025. There is a moderate-sized right pneumothorax measuring 2.8 cm. No mediastinal shift. Impression: 1. Moderate-sized right pneumothorax measuring 2.8 cm, no mediastinal shift. Findings discussed with nurse Julissa. Electronically signed: TORY IYER MD. Cultures No results found for: BLOOD CULTURE , URINE CULTURE , WOUND CULTURE , CSF CULTURE , TISSUE CULTURE ONLY Medications Scheduled: [START ON 03/06/2025] ferrous sulfate, 325 mg, oral, Daily with breakfast FLUoxetine, 60 mg, oral, Daily gabapentin, 300 mg, oral, TID Oxygen Therapy, , inhalation, Continuous Infusions: As Needed: PRN medications: acetaminophen, HYDROcodone-acetaminophen, ketorolac, melatonin, ondansetron ODT OR ondansetron, Insert peripheral IV AND Saline lock IV AND sodium chloride ASSESSMENT AND PLAN Assessment: Primary spontaneous pneumothorax. Recurrent spontaneous pneumothorax recurrent. Recurrent spontaneous pneumothorax X 3. CXR ordered to evaluate the pneumothorax. Assessment and Plan. Patient had first spontaneous pneumothorax treated with chest tube, air aspiration, decompression, 2nd pneumothorax was treated with chemical pleurodesis with doxycycline. Patient is candidate for surgical pleurodesis, VAT, CT surgery evaluated patient on her last admission. Please consult CT surgery to evaluation for surgical options. Marjorie Vance MD. Attending Physician. 03/05/2025 Marjorie Vance MD [facility] CT CHEST WO IV CONTRASTon CT CHEST WO IV CONTRAST CT CHEST WO IV CONTRAST 03/05/2025 8:28 PM CLINICAL INDICATIONS: Recurrent pneumothorax, status post chest tube TECHNIQUE: Multidetector CT axial slices of the chest were obtained without IV contrast. Multiplanar reformats were performed and viewed on a separate workstation and reviewed to further define anatomy and possible pathology. All CT scans at this facility use dose modulation, iterative reconstruction, and/or weight based dosing when appropriate to reduce radiation dose to as low as reasonably achievable. COMPARISON: Same day chest radiograph and CT of the chest 01/05/2025. FINDINGS: The visualized thyroid is unremarkable. No enlarged supraclavicular lymph nodes. No cardiomegaly or pericardial effusion. Nonaneurysmal thoracic aorta. The main pulmonary artery trunk size is within normal limits. No significant coronary artery calcifications. No enlarged mediastinal, hilar or axillary lymph nodes by size criteria. The central airways are patent without filling defect. There is a tiny anterior apical right-sided pneumothorax measuring up to 0.4 cm in greatest diameter. Right chest tube pigtail catheter is located in the anterior lateral right upper pleural space. No pleural effusions. Bibasilar dependent atelectasis. No focal consolidation. Soft tissue emphysema in the right chest wall. No other acute chest wall soft tissue abnormality. No acute osseous abnormality. No acute abnormality within the visualized upper abdomen. IMPRESSION: 1. Tiny right anterior apical pneumothorax measuring up to 0.4 cm. 2. Right-sided pigtail chest tube located in the right upper anterior hemithorax. 3. Soft tissue emphysema in the right chest wall. Approved by:Boris Callahan03/05/2025 9:46 PM. I, Salazar Sr MD,have reviewed the image(s) and agree with the findings in this report. Electronically signed: Salazar Sr MD. 9 Invalid Interpretation Code [facility] FERRITINon 03-05-2025 FERRITIN (NG/ML) IN SER/PLAS 8.0 ng/mL Low 11.0-307.0 [facility] Comment on above: Performed By: #### L [id number] ####[facility] ([facility])[address] [place] [address] IRON AND TIBCon 03-05-2025 IRON (UG/DL) IN SER/PLAS 37 ug/dL Low 50-212 [facility] Comment on above: Performed By: #### L [id number] ####[facility] ([facility])[address] [place] [address] IRON BINDING CAPACITY (UG/DL) IN SER/PLAS 395 ug/dL Normal 250-450 [facility] Comment on above: Performed By: #### L [id number] ####[facility] (BEAKER)[address] [place] [address] IRON BINDING CAPACITY.UNSATURAT ED (UG/DL) IN SER/PLAS 358.0 ug/dL High 155.0-355.0 [facility] Comment on above: Performed By: #### L [id number] ####[facility] (BEAKER)[address] [place] [address] IRON SATURATION (%) IN SER/PLAS 9 % Low 20-50 [facility] Comment on above: Performed By: #### L [id number] ####[facility] (BEAKER)[address] [place] [address] 36on 01-11-2025 36 Spoke with patient w ho voiced understanding that we will not prescribed pain medication and to follow up with PCP/ other flow match sofa cutter. Patient did cancel her appointment. Thank you. [facility] 36 Patient was recently seen in the ER for spontaneous pneuomthorax. Patient states she was prescribed oxycodone while in the hospital. She continues to have pain. She is inquiring on a pain medication refill to last her until her pulmonary appointment with Dr. Hudson this upcoming . 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 Please advise. [facility] 30on 01-07-2025 30 Problem: Pain - Adul [...] Outcome: Adequate for Discharge 01/07/2025 0910 by Mlaena Tatum RN Outcome: Progressing Problem: Chronic Conditions and Co-morbidities Goal: Patient's chronic conditions and co-morbidity symptoms are monitored and maintained or improved 01/07/2025 1255 by Malena Tatum RN Outcome: Adequate for Discharge 01/07/2025 0910 by Malena Tatum RN Outcome: Progressing [facility] 30 Problem: Pain - Adul t Goal: [...] clinical goals for the shift include VSS [facility] NURSNOTEon 01-07-2025 NURSNOTE Discharge paperwork gone over with patient at this time. All questions answered at bedside. Patient denies further questions. [facility] 30on 01-06-2025 30 The patient is Moder ately Stable - Low risk of patient condition declining or worsening The patient's goals for the shift include Comfort, rest The clinical goals for the shift include VSS, Safety [facility] 30 The patient is Moder ately Stable [...] or baseline comfort level Outcome: Progressing . [facility] 30 Daily Case Managemen t Update Multidisciplinary [...] Orders (From admission, onward) Start Ordered 01/02/25 07 Regular Diet Diet effective now Question: Room Service? Answer: Yes 01/02/25742 Physician Expected Discharge Date: Discharge Delays: PT Six Click Score: 24 OT Six Click Score: PT Recommendations: OT Recommendations: New Consults: Normal [facility] 30 The patient is Moder ately Stable [...] and prevent overall improvement and discharge Normal [facility] BASIC METABOLIC PANELon 03-0 Anion gap [Moles/Vol] 16 mmol/L Normal -20 [facility] Comment on above: Performed By: #### L [id number] ####[facility] (BEAKER)[address] [place] [address] Calcium [Mass/Vol] 9.1 mg/dL Normal 8.6-10.[address] [facility] Comment on above: Performed By: #### L [id number] ####[facility] ([facility]AKER)[address] [place] [address] Chloride [Moles/Vol] 103 mmol/L Normal 98-107 [facility] Comment on above: Performed By: #### L [id number] ####[facility] (BEAKER)[address] [place] [address] CO2 [Moles/Vol] 25 mmol/L Normal 21-31 [facility] Comment on above: Performed By: #### L [id number] ####[facility] ([facility]AKER)[address] [place] [address] Creatinine [Mass/Vol] 0.70 mg/dL Normal 0.60-1.20 [facility] Comment on above: Performed By: #### L [id number] ####[facility] ([facility] [place] [address] GLOMERULAR FILTRATION RATE ML/MIN/1.73 SQ M.PREDICTED 119.2 mL/min/1.73m*2 Normal >60.0 [facility] Comment on above: Result Comment: The [facility]???s estimated glomerular filtration rate (eGFR) will no [...] of individuals. Performed By: #### L [id number] ####[facility] (BEAKER)[address] [place] [address] Glucose [Mass/Vol] 91 mg/dL Normal 70-[address] [facility] Comment on above: Performed By: #### L [id number] ####[facility] ([facility])[address] [place] [address] Potassium [Moles/Vol] 4.0 mmol/L Normal 3.5-5.1 [facility] Comment on above: Performed By: #### L [id number] ####[facility] ([facility])[address] [place] [address] Sodium [Moles/Vol] 140 mmol/L Normal 136-[address] [facility] Comment on above: Performed By: #### L [id number] ####[facility] ([facility])[address] [place] [address] Urea nitrogen [Mass/Vol] 20 mg/dL Normal 7-25 [facility] Comment on above: Performed By: #### L [id number] ####[facility] ([facility])[address] [place] [address] UREA NITROGEN/CREATININ E (MASS RATIO) IN SER/PLAS 28.6 Normal [facility] Comment on above: Performed By: #### L [id number] ####[facility] ([facility])[address] [place] [address] CBC WITH AUTO DIFFERENTIALon 01-06-2025 Basophils (Bld) [#/Vol] 0.03 10*3/uL Normal 0.00-0.20 [facility] Comment on above: Performed By: #### L [id number] ####[facility] ([facility])[address] [place] [address] Basophils/100 WBC (Bld) 0.5 % Normal 0.0-1.0 [facility] Comment on above: Performed By: #### L [id number] ####[facility] ([facility])[address] [place] [address] Eosinophils (Bld) [#/Vol] 0.17 10*3/uL Normal 0.00-0.50 [facility] Comment on above: Performed By: #### L [id number] ####[facility] (BEAKER)[address] [place] [address] Eosinophils/100 WBC (Bld) 2.8 % Normal 0.0-6.0 [facility] Comment on above: Performed By: #### L [id number] ####[facility] (BEAKER)[address] [place] [address] Erythrocyte distribution width (RBC) [Ratio] 13.5 % Normal 11.5-15.0 [facility] Comment on above: Performed By: #### L [id number] ####[facility] (BEAKER)[address] [place] [address] ERYTHROCYTE MEAN CORPUSCULAR HEMOGLOBIN CONCENTRATION (G/DL) BY AUTOMATED 31.4 g/dL Low 32.0-35.0 [facility] Comment on above: Performed By: #### L [id number] ####[facility] (BEAKER)[address] [place] [address] Hematocrit (Bld) [Volume fraction] 35.7 % Low 36.0-48.0 [facility] Comment on above: Performed By: #### L [id number] ####[facility] (BEAKER)[address] [place] [address] Hemoglobin (Bld) [Mass/Vol] 11.2 g/dL Low 12.0-15.0 [facility] Comment on above: Performed By: #### L [id number] ####[facility] (BEAKER)[address] [place] [address] Immature granulocytes (Bld) [#/Vol] 0.02 10*3/uL Normal 0.00-0.20 [facility] Comment on above: Performed By: #### L [id number] ####[facility] (BEAKER)[address] [place] [address] Immature granulocytes/100 WBC (Bld) 0.3 % Normal 0.0-1.0 [facility] Comment on above: Performed By: #### L [id number] ####[facility] (BEAKER)[address] [place] [address] Lymphocytes (Bld) [#/Vol] 1.32 10*3/uL Normal 1.20-4.00 [facility] Comment on above: Performed By: #### L [id number] ####[facility] (BEAKER)[address] [place] [address] Lymphocytes/100 WBC (Bld) 21.6 % Normal 20.0-45.0 [facility] Comment on above: Performed By: #### L [id number] ####[facility] (BEAKER)[address] [place] [address] MCH (RBC) [Entitic mass] 26.8 pg Low 27.0-33.0 [facility] Comment on above: Performed By: #### L [id number] ####[facility] (BEAKER)[address] [place] [address] MCV (RBC) [Entitic vol] 85.4 fL Normal 82.0-98.0 [facility] Comment on above: Performed By: #### L [id number] ####[facility] (BEAKER)[address] [place] [address] Monocytes (Bld) [#/Vol] 0.62 10*3/uL Normal 0.10-1.00 [facility] Comment on above: Performed By: #### L [id number] ####[facility] (BEAKER)[address] [place] [address] Monocytes/100 WBC (Bld) 10.1 % Normal 5.0-12.0 [facility] Comment on above: Performed By: #### L [id number] ####[facility] (BEAKER)[address] [place] [address] Neutrophils (Bld) [#/Vol] 3.95 10*3/uL Normal 1.60-7.60 [facility] Comment on above: Performed By: #### L [id number] ####[facility] (BEAKER)[address] [place] [address] Neutrophils/100 WBC (Bld) 64.7 % Normal 40.0-72.0 [facility] Comment on above: Performed By: #### L [id number] ####[facility] ([facility])[address] [place] [address] NRBC (PER 100 WBCS) BY AUTOMATED COUNT 0.0 % Normal 0 [facility] Comment on above: Performed By: #### L [id number] ####[facility] ([facility])[address] [place] [address] PLATELETS (10*3/UL) IN BLOOD AUTOMATED COUNT 318 10*3/uL Normal 150-400 [facility] Comment on above: Performed By: #### L [id number] ####[facility] ([facility])[address] [place] [address] RBC (Bld) [#/Vol] 4.18 10*6/uL Normal 3.80-5.00 [facility] Comment on above: Performed By: #### L [id number] ####[facility] ([facility])[address] [place] [address] WBC (Bld) [#/Vol] 6.11 10*3/uL Normal 4.00-10.60 [facility] Comment on above: Performed By: #### L [id number] ####[facility] ([facility])[address] [place] [address] MAGNESIUMon 01-06-2025 Magnesium [Mass/Vol] 1.8 mg/dL Low 1.9-2.7 [facility] Comment on above: Performed By: #### L [id number] ####[facility] ([facility])[address] [place] [address] 30on 01-05-2025 30 Daily Case Managemen t [...] appropriate for patient?: Yes New Consults: Normal [facility] BASIC METABOLIC PANELon 03-0 Anion gap [Moles/Vol] 15 mmol/L Normal 7-20 [facility] Comment on above: Performed By: #### L [id number] ####[facility] ([facility])[address] [place] [address] Calcium [Mass/Vol] 9.3 mg/dL Normal 8.6-10.[address] [facility] Comment on above: Performed By: #### L [id number] ####[facility] (BEAKER)[address] [place] [address] Chloride [Moles/Vol] 103 mmol/L Normal 98-107 [facility] Comment on above: Performed By: #### L [id number] ####[facility] (BEAKER)[address] [place] [address] CO2 [Moles/Vol] 24 mmol/L Normal 21-31 [facility] Comment on above: Performed By: #### L [id number] ####[facility] (BEAKER)[address] [place] [address] Creatinine [Mass/Vol] 0.62 mg/dL Normal 0.60-1.20 [facility] Comment on above: Performed By: #### L [id number] ####[facility] (BEAKER)[address] [place] [address] GLOMERULAR FILTRATION RATE ML/MIN/1.73 SQ M.PREDICTED 122.8 mL/min/1.73m*2 Normal >60.0 [facility] Comment on above: Result Comment: The [facility]???s estimated glomerular filtration rate (eGFR) will no [...] of individuals. Performed By: #### L [id number] ####[facility] ([facility])[address] [place] [address] Glucose [Mass/Vol] 71 mg/dL Normal 70-[address] [facility] Comment on above: Performed By: #### L [id number] ####[facility] ([facility])[address] [place] [address] Potassium [Moles/Vol] 3.6 mmol/L Normal 3.5-5.1 [facility] Comment on above: Performed By: #### L [id number] ####[facility] ([facility])[address] [facility] [place] [address] Sodium [Moles/Vol] 138 mmol/L Normal 136-[address] [facility] Comment on above: Performed By: #### L [id number] ####[facility] ([facility])[address] [place] [address] Urea nitrogen [Mass/Vol] 14 mg/dL Normal 7-25 [facility] Comment on above: Performed By: #### L [id number] ####[facility] ([facility])[address] [place] [address] UREA NITROGEN/CREATININ E (MASS RATIO) IN SER/PLAS 22.6 Normal [facility] Comment on above: Performed By: #### L [id number] ####[facility] ([facility])[address] [place] [address] CBC WITH AUTO DIFFERENTIALon 01-05-2025 Basophils (Bld) [#/Vol] 0.03 10*3/uL Normal 0.00-0.20 [facility] Comment on above: Performed By: #### L [id number] #### [facility] , Basophils/100 WBC (Bld) 0.4 % Normal 0.0-1.0 [facility] Comment on above: Performed By: #### L [id number] #### [facility] , Eosinophils (Bld) [#/Vol] 0.06 10*3/uL Normal 0.00-0.50 [facility] Comment on above: Performed By: #### L [id number] #### [facility] , Eosinophils/100 WBC (Bld) 0.8 % Normal 0.0-6.0 [facility] Comment on above: Performed By: #### L [id number] #### [facility] , Erythrocyte distribution width (RBC) [Ratio] 13.5 % Normal 11.5-15.0 [facility] Comment on above: Performed By: #### L [id number] #### [facility] , ERYTHROCYTE MEAN CORPUSCULAR HEMOGLOBIN CONCENTRATION (G/DL) BY AUTOMATED 31.8 g/dL Low 32.0-35.0 [facility] Comment on above: Performed By: #### L [id number] #### [facility] , Hematocrit (Bld) [Volume fraction] 35.8 % Low 36.0-48.0 [facility] Comment on above: Performed By: #### L [id number] #### [facility] , Hemoglobin (Bld) [Mass/Vol] 11.4 g/dL Low 12.0-15.0 [facility] Comment on above: Performed By: #### L [id number] #### [facility] , Immature granulocytes (Bld) [#/Vol] 0.01 10*3/uL Normal 0.00-0.20 [facility] Comment on above: Performed By: #### L [id number] #### [facility] , Immature granulocytes/100 WBC (Bld) 0.1 % Normal 0.0-1.0 [facility] Comment on above: Performed By: #### L [id number] #### [facility] , Lymphocytes (Bld) [#/Vol] 1.54 10*3/uL Normal 1.20-4.00 [facility] Comment on above: Performed By: #### L [id number] #### [facility] , Lymphocytes/100 WBC (Bld) 19.9 % Low 20.0-45.0 [facility] Comment on above: Performed By: #### L [id number] #### [facility] , MCH (RBC) [Entitic mass] 26.6 pg Low 27.0-33.0 [facility] Comment on above: Performed By: #### L [id number] #### [facility] , MCV (RBC) [Entitic vol] 83.4 fL Normal 82.0-98.0 [facility] Comment on above: Performed By: #### L [id number] #### [facility] , Monocytes (Bld) [#/Vol] 0.66 10*3/uL Normal 0.10-1.00 [facility] Comment on above: Performed By: #### L [id number] #### [facility] , Monocytes/100 WBC (Bld) 8.5 % Normal 5.0-12.0 [facility] Comment on above: Performed By: #### L [id number] #### [facility] , Neutrophils (Bld) [#/Vol] 5.45 10*3/uL Normal 1.60-7.60 [facility] Comment on above: Performed By: #### L [id number] #### [facility] , Neutrophils/100 WBC (Bld) 70.3 % Normal 40.0-72.0 [facility] Comment on above: Performed By: #### L [id number] #### [facility] , NRBC (PER 100 WBCS) BY AUTOMATED COUNT 0.0 % Normal 0 [facility] Comment on above: Performed By: #### L [id number] #### [facility] , PLATELETS (10*3/UL) IN BLOOD AUTOMATED COUNT 330 10*3/uL Normal 150-400 [facility] Comment on above: Performed By: #### L [id number] #### [facility] , RBC (Bld) [#/Vol] 4.29 10*6/uL Normal 3.80-5.00 [facility] Comment on above: Performed By: #### L [id number] #### [facility] , WBC (Bld) [#/Vol] 7.75 10*3/uL Normal 4.00-10.60 [facility] Comment on above: Performed By: #### L [id number] #### [facility] , CT CHEST WO IV CONTRASTon CT CHEST [...] signed: Keysha Casas. 9 Invalid Interpretation Code [facility] MAGNESIUMon 01-05-2025 Magnesium [Mass/Vol] 1.8 mg/dL Low 1.9-2.7 [facility] Comment on above: Performed By: #### L [id number] #### [facility] ([facility]ER) [address] [place] [address] NURSNOTEon 01-05-2025 NURSNOTE Per pulmonary clamp chest tube and place to water seal and pt will go to CT to see if any improvement. If better potentially removing chest tube. Normal [facility] 30on 01-04-2025 30 The patient is Moder [...] and behaviors that affect risk of falls [place] fall precautions as indicated by assessment Instruct patient to call for assistance with activity based on assessment Educate patient/family on patient safety, including physical limitations Consider OT/PT consult to assist with strengthening/mobility Modify environment to reduce risk of injury Problem: Discharge Planning Goal: Discharge to home or other facility with appropriate resources Outcome: Progressing Flowsheets (Taken 01/01/2025814 by Radha Rich RN) Discharge to home or other facility [...] Outcome: Progressing Flowsheets (Taken 01/01/2025814 by Radha Rich RN) Care Plan - Patient's Chronic Conditions [...] conditions and prevent exacerbation or deterioration Normal [facility] 30 Daily Case Managemen t Update Multidisciplinary [...] Score: 24 OT Six Click Score: Normal [facility] 30 The patient is Moder ately Stable [...] and maintained or improved Outcome: Progressing Normal [facility] BASIC METABOLIC PANELon 03-0 Anion gap [Moles/Vol] 14 mmol/L Normal 7-20 [facility] Comment on above: Performed By: #### L [id number] #### [facility] , Calcium [Mass/Vol] 8.9 mg/dL Normal 8.6-10.[address] [facility] Comment on above: Performed By: #### L [id number] #### [facility] , Chloride [Moles/Vol] 105 mmol/L Normal 98-107 [facility] Comment on above: Performed By: #### L [id number] #### [facility] , CO2 [Moles/Vol] 22 mmol/L Normal 21-31 [facility] Comment on above: Performed By: #### L [id number] #### [facility] , Creatinine [Mass/Vol] 0.60 mg/dL Normal 0.60-1.20 [facility] Comment on above: Performed By: #### L [id number] #### [facility] , GLOMERULAR FILTRATION RATE ML/MIN/1.73 SQ M.PREDICTED 123.8 mL/min/1.73m*2 Normal >60.0 [facility] Comment on above: Result Comment: The [facility]???s estimated glomerular filtration rate (eGFR) will no [...] group of individuals. Performed By: #### L [id number] #### [facility] , Glucose [Mass/Vol] 85 mg/dL Normal 70-[address] [facility] Comment on above: Performed By: #### L [id number] #### [facility] , Potassium [Moles/Vol] 4.6 mmol/L Normal 3.5-5.1 [facility] Comment on above: Performed By: #### L [id number] #### [facility] , Sodium [Moles/Vol] 136 mmol/L Normal 136-[address] [facility] Comment on above: Performed By: #### L [id number] #### [facility] , Urea nitrogen [Mass/Vol] 14 mg/dL Normal 7-25 [facility] Comment on above: Performed By: #### L [id number] #### [facility] , UREA NITROGEN/CREATININ E (MASS RATIO) IN SER/PLAS 23.3 Normal [facility] Comment on above: Performed By: #### L [id number] #### [facility] , CBC WITH AUTO DIFFERENTIALon 01-04-2025 Basophils (Bld) [#/Vol] 0.04 10*3/uL Normal 0.00-0.20 [facility] Comment on above: Performed By: #### L [id number] #### [facility] ([facility]ER) [address] [place] [address] Basophils/100 WBC (Bld) 0.8 % Normal 0.0-1.0 [facility] Comment on above: Performed By: #### L [id number] #### [facility] ([facility] [address] [place] [address] Eosinophils (Bld) [#/Vol] 0.16 10*3/uL Normal 0.00-0.50 [facility] Comment on above: Performed By: #### L [id number] #### [facility] ([facility]) [address] [place] [address] Eosinophils/100 WBC (Bld) 3.3 % Normal 0.0-6.0 [facility] Comment on above: Performed By: #### L [id number] #### [facility] ([facility]) [address] [place] [address] Erythrocyte distribution width (RBC) [Ratio] 13.2 % Normal 11.5-15.0 [facility] Comment on above: Performed By: #### L [id number] #### [facility] ([facility]) [address] [place] [address] ERYTHROCYTE MEAN CORPUSCULAR HEMOGLOBIN CONCENTRATION (G/DL) BY AUTOMATED 32.0 g/dL Normal 32.0-35.0 [facility] Comment on above: Performed By: #### L [id number] #### [facility] ([facility]) [address] [address] Hematocrit (Bld) [Volume fraction] 37.5 % Normal 36.0-48.0 [facility] Comment on above: Performed By: #### L [id number] #### [facility] ([facility] [address] [facility] [place] [address] Hemoglobin (Bld) [Mass/Vol] 12.0 g/dL Normal 12.0-15.0 [facility] Comment on above: Performed By: #### L [id number] #### [facility] (BEAKER) [address] [place] [address] Immature granulocytes (Bld) [#/Vol] 0.01 10*3/uL Normal 0.00-0.20 [facility] Comment on above: Performed By: #### L [id number] #### [facility] ([facility]) [address] [place] [address] Immature granulocytes/100 WBC (Bld) 0.2 % Normal 0.0-1.0 [facility] Comment on above: Performed By: #### L [id number] #### [facility] ([facility]) [address] [place] [address] Lymphocytes (Bld) [#/Vol] 1.50 10*3/uL Normal 1.20-4.00 [facility] Comment on above: Performed By: #### L [id number] #### [facility] ([facility]) [address] [place] [address] Lymphocytes/100 WBC (Bld) 31.1 % Normal 20.0-45.0 [facility] Comment on above: Performed By: #### L [id number] #### [facility] ([facility]) [address] [place] [address] MCH (RBC) [Entitic mass] 27.0 pg Normal 27.0-33.0 [facility] Comment on above: Performed By: #### L [id number] #### [facility] ([facility]) [address] [place] [address] MCV (RBC) [Entitic vol] 84.3 fL Normal 82.0-98.0 [facility] Comment on above: Performed By: #### L [id number] #### [facility] ([facility]) [address] [place] [address] Monocytes (Bld) [#/Vol] 0.55 10*3/uL Normal 0.10-1.00 [facility] Comment on above: Performed By: #### L [id number] #### [facility] ([facility]) [address] [place] [address] Monocytes/100 WBC (Bld) 11.4 % Normal 5.0-12.0 [facility] Comment on above: Performed By: #### L [id number] #### [facility] ([facility]) [address] [place] [address] Neutrophils (Bld) [#/Vol] 2.56 10*3/uL Normal 1.60-7.60 [facility] Comment on above: Performed By: #### L [id number] #### [facility] ([facility]) [address] [address] Neutrophils/100 WBC (Bld) 53.2 % Normal 40.0-72.0 [facility] Comment on above: Performed By: #### L [id number] #### [facility] ([facility]) [address] [place] [address] NRBC (PER 100 WBCS) BY AUTOMATED COUNT 0.0 % Normal 0 [facility] Comment on above: Performed By: #### L [id number] #### [facility] ([facility]) [address] [place] [address] PLATELETS (10*3/UL) IN BLOOD AUTOMATED COUNT 304 10*3/uL Normal 150-400 [facility] Comment on above: Performed By: #### L [id number] #### [facility] ([facility]) [address] [place] [address] RBC (Bld) [#/Vol] 4.45 10*6/uL Normal 3.80-5.00 [facility] Comment on above: Performed By: #### L [id number] #### [facility] ([facility]) [address] [place] [address] WBC (Bld) [#/Vol] 4.82 10*3/uL Normal 4.00-10.60 [facility] Comment on above: Performed By: #### L [id number] #### [facility] ([facility]) [address] [address] CONSULTon 01-04-2025 CONSULT ------ -- Attestation signed [...] Juliette Hernández : 1995 Location: [id number] Attending: Alecia Abarca MD Admit Date: 01/01/2025 Hospital Day: 3 Reason for Consult: Spontaneous pneumothorax HPI: Juliette Hernández is a 29 y.o. female with a past medical history depression and anxiety, history of substance abuse with history of overdose per EMR although patient denies, and alcohol use. Patient presented from [facility] as a direct admission due to spontaneous [...] was discharged home. Yesterday she presented to [facility] again with shortness of breath and chest pain/heaviness. She was found to have spontaneous pneumothorax. Chest tube was placed and she was transferred to [facility] for further management with possible VATS/pleurodesis. [...] tablet 1,000 mg, 1,000 mg, oral, q8h, Alecia Abarca MD, 1,000 mg at 01/04/25 1217 ARIPiprazole (Abilify) tablet 5 mg, 5 mg, oral, Daily, Alecia Abarca MD, 5 mg at 01/04/25 0904 docusate sodium (Colace) capsule 200 mg, 200 mg, oral, BID, Woo Silva, KUMAR, 200 mg at 01/03/25 2130 doxycycline (Vibramycin) 500 mg in sodium chloride 0.9 % 50 mL chest tube irrigation, 500 mg, intrapleural, Once, Leodan Hardwick MD fentaNYL (Sublimaze) injection 100 mcg, 100 mcg, intravenous, Once, Leodan Sc (more content not included)... Normal [facility] MAGNESIUMon 01-04-2025 Magnesium [Mass/Vol] 1.9 mg/dL Normal 1.9-2.7 [facility] Comment on above: Performed By: #### L [id number] #### [facility] , NURSNOTEon 01-04-2025 NURSNOTE 1630 - Pulmonology t o bedside to complete pleurodesis. Pain medications administered as per orders/charted. Patient vitals stable as charted. Chest tube clamped per pulmonology, repeat chest xray at 1900, tube to remain clamped until reevaluated in AM. 1700 - Patient continues to c/o 10/10 pain to right chest. Pulmonology back to bedside. Medications administered as charted. 1715 - Patient continues with 10/10 pain, now [...] at this time, once xray is completed automobile service writer to notify MICU to review images for further instruction. 1734 - Patient continues with above symptoms, automobile service writer remains at bedside awaiting radiology to complete chest xray. 1738 - Follow up call placed to xray requesting expediting testing. 174 - Xray to bedside. STEWARDESSES TEACHER RN at bedside per lead RN request. 175 - MICU and pulmonology to bedside to review portable images. Per MICU, pneumothorax is stable at this time. Medications administered as ordered/charted. Orders given to unclamp chest tube at 1845 per pulmonology. 184 - Chest tube unclamped. Patient remains in intractable pain, rates 06/13. Continues with above RUE complaints and symptoms, however swelling has not increased at this time. Family at bedside. Call light within reach. Bed alarm on. Patient notified of pain medication schedule, and education provided regarding overmedication/narcan. Patient verbalizes understanding. Vitals remain stable as charted. Normal [facility] 30on 01-02-2025 30 The patient is Moder [...] by Tal Alvares RN Outcome: Progressing Normal [facility] 30 The patient is Moder ately Stable [...] and maintained or improved Outcome: Progressing Normal [facility] TOXICOLOGY PANEL URINEon AMPHETAMINE+METHAM PHETAMINE SCREEN (PRESENCE) IN URINE Negative Normal Negative [facility] Comment on above: Performed By: #### L [id number] #### [facility] ([facility]) [address] [place] [address] BARBITURATES PRESENCE IN URINE BY SCREEN METHOD Negative Normal Negative [facility] Comment on above: Performed By: #### L [id number] #### [facility] ([facility]) [address] [place] [address] Benzodiazepines Ql (U) Negative Normal Negative [facility] Comment on above: Performed By: #### L [id number] #### [facility] ([facility]) [address] [place] [address] CANNABINOID (PRESENCE) IN URINE BY SCREEN METHOD Negative Normal Negative [facility] Comment on above: Performed By: #### L [id number] #### [facility] ([facility]) [address] [place] [address] Cocaine Ql (U) Negative Normal Negative [facility] Comment on above: Performed By: #### L [id number] #### [facility] ([facility]) [address] [place] [address] METHADONE (PRESENCE) IN URINE BY SCREEN METHOD Negative Normal Negative [facility] Comment on above: Performed By: #### L [id number] #### [facility] ([facility]) [address] [place] [address] OPIATES (PRESENCE) IN URINE BY SCREEN METHOD Positive Abnormal Negative [facility] Comment on above: Performed By: #### L [id number] #### [facility] ([facility]) [address] [place] [address] PHENCYCLIDINE PRESENCE IN URINE BY SCREEN METHOD Negative Normal Negative [facility] Comment on above: Performed By: #### L [id number] #### [facility] ([facility]) [address] [place] [address] Propoxyphene Screen Ql (U) Negative Normal Negative [facility] Comment on above: Performed By: #### L [id number] #### [facility] ([facility]) [address] [place] [address] TRICYCLIC ANTIDEPRESSANTS (PRESENCE) IN URINE Negative Normal Negative [facility] Comment on above: Performed By: #### L [id number] #### [facility] ([facility]) [address] [place] [address] 30on 01-01-2025 30 The patient is Moder ately Stable - Low risk of patient condition declining or worsening The patient's goals for the shift include COMFORT The clinical goals for the shift include VSS Over the shift, the patient did not make progress toward the following goals. Barriers to progression include. Recommendations to address these barriers include. Normal [facility] 30 The patient is Moder ately Stable [...] and maintained or improved Outcome: Progressing Normal [facility] 30 The patient is Moder ately Unstable - Medium risk of patient condition declining or worsening The patient's goals for the shift include COMFORT The clinical goals for the shift include VSS Normal [facility] CBC WITH AUTO DIFFERENTIALon 01-01-2025 Basophils (Bld) [#/Vol] 0.06 10*3/uL Normal 0.00-0.20 [facility] Comment on above: Performed By: #### L [id number] #### [facility] ([facility]) [address] [place] [address] Basophils/100 WBC (Bld) 1.2 % High 0.0-1.0 [facility] Comment on above: Performed By: #### L [id number] #### [facility] ([facility]) [address] [place] [address] Eosinophils (Bld) [#/Vol] 0.14 10*3/uL Normal 0.00-0.50 [facility] Comment on above: Performed By: #### L [id number] #### [facility] ([facility]) [address] [place] [address] Eosinophils/100 WBC (Bld) 2.8 % Normal 0.0-6.0 [facility] Comment on above: Performed By: #### L [id number] #### [facility] ([facility]) [address] [place] [address] Erythrocyte distribution width (RBC) [Ratio] 13.2 % Normal 11.5-15.0 [facility] Comment on above: Performed By: #### L [id number] #### [facility] ([facility]) [address] [place] [address] ERYTHROCYTE MEAN CORPUSCULAR HEMOGLOBIN CONCENTRATION (G/DL) BY AUTOMATED 32.2 g/dL Normal 32.0-35.0 [facility] Comment on above: Performed By: #### L [id number] #### [facility] ([facility]) [address] [place] [address] Hematocrit (Bld) [Volume fraction] 34.5 % Low 36.0-48.0 [facility] Comment on above: Performed By: #### L [id number] #### [facility] ([facility]) [address] [place] [address] Hemoglobin (Bld) [Mass/Vol] 11.1 g/dL Low 12.0-15.0 [facility] Comment on above: Performed By: #### L [id number] #### [facility] ([facility]) [address] [place] [address] Immature granulocytes (Bld) [#/Vol] 0.02 10*3/uL Normal 0.00-0.20 [facility] Comment on above: Performed By: #### L [id number] #### [facility] ([facility]) [address] [place] [address] Immature granulocytes/100 WBC (Bld) 0.4 % Normal 0.0-1.0 [facility] Comment on above: Performed By: #### L [id number] #### [facility] ([facility]) [address] [place] [address] Lymphocytes (Bld) [#/Vol] 1.37 10*3/uL Normal 1.20-4.00 [facility] Comment on above: Performed By: #### L [id number] #### [facility] ([facility]) [address] [place] [address] Lymphocytes/100 WBC (Bld) 27.0 % Normal 20.0-45.0 [facility] Comment on above: Performed By: #### L [id number] #### [facility] ([facility]) [address] [place] [address] MCH (RBC) [Entitic mass] 26.7 pg Low 27.0-33.0 [facility] Comment on above: Performed By: #### L [id number] #### [facility] ([facility]) [address] [place] [address] MCV (RBC) [Entitic vol] 83.1 fL Normal 82.0-98.0 [facility] Comment on above: Performed By: #### L [id number] #### [facility] ([facility]) [address] [place] [address] Monocytes (Bld) [#/Vol] 0.72 10*3/uL Normal 0.10-1.00 [facility] Comment on above: Performed By: #### L [id number] #### [facility] ([facility]) [address] [place] [address] Monocytes/100 WBC (Bld) 14.2 % High 5.0-12.0 [facility] Comment on above: Performed By: #### L [id number] #### [facility] ([facility]) [address] [place] [address] Neutrophils (Bld) [#/Vol] 2.77 10*3/uL Normal 1.60-7.60 [facility] Comment on above: Performed By: #### L [id number] #### [facility] ([facility]) [address] [place] [address] Neutrophils/100 WBC (Bld) 54.4 % Normal 40.0-72.0 [facility] Comment on above: Performed By: #### L [id number] #### [facility] ([facility]) [address] [place] [address] NRBC (PER 100 WBCS) BY AUTOMATED COUNT 0.0 % Normal 0 [facility] Comment on above: Performed By: #### L [id number] #### [facility] ([facility]) [address] [place] [address] PLATELETS (10*3/UL) IN BLOOD AUTOMATED COUNT 290 10*3/uL Normal 150-400 [facility] Comment on above: Performed By: #### L [id number] #### [facility] ([facility]) [address] [place] [address] RBC (Bld) [#/Vol] 4.15 10*6/uL Normal 3.80-5.00 [facility] Comment on above: Performed By: #### L [id number] #### [facility] ([facility]) [address] [place] [address] WBC (Bld) [#/Vol] 5.08 10*3/uL Normal 4.00-10.60 [facility] Comment on above: Performed By: #### L [id number] #### [facility] ([facility]) [address] [place] [address] COMPREHENSIVE METABOLIC PANE Shad 01-01-2025 Albumin [Mass/Vol] 4.0 g/dL Normal 3.5-5.[address] [facility] Comment on above: Performed By: #### L [id number] #### [facility] ([facility]) [address] [place] [address] ALP [Catalytic activity/Vol] 65 U/L Normal 34-104 [facility] Comment on above: Performed By: #### L [id number] #### [facility] ([facility]) [address] [place] [address] ALT [Catalytic activity/Vol] 15 U/L Normal 7-52 [facility] Comment on above: Performed By: #### L [id number] #### [facility] ([facility]) [address] [place] [address] Anion gap [Moles/Vol] 9 mmol/L Normal 7-20 [facility] Comment on above: Performed By: #### L [id number] #### [facility] ([facility]) [address] [place] [address] AST [Catalytic activity/Vol] 21 U/L Normal 13-39 [facility] Comment on above: Performed By: #### L [id number] #### [facility] ([facility]) [address] [place] [address] Bilirubin [Mass/Vol] 0.5 mg/dL Normal 0.3-1.0 [facility] Comment on above: Performed By: #### L [id number] #### [facility] ([facility]) [address] [place] [address] Calcium [Mass/Vol] 8.8 mg/dL Normal 8.6-10.[address] [facility] Comment on above: Performed By: #### L [id number] #### [facility] ([facility]) [address] [place] [address] Chloride [Moles/Vol] 107 mmol/L Normal 98-107 [facility] Comment on above: Performed By: #### L [id number] #### [facility] ([facility]) [address] [place] [address] CO2 [Moles/Vol] 27 mmol/L Normal 21-31 [facility] Comment on above: Performed By: #### L [id number] #### [facility] ([facility]) [address] [place] [address] Creatinine [Mass/Vol] 0.73 mg/dL Normal 0.60-1.20 [facility] Comment on above: Performed By: #### L [id number] #### [facility] ([facility]) [address] [place] [address] GLOMERULAR FILTRATION RATE ML/MIN/1.73 SQ M.PREDICTED 113.4 mL/min/1.73m*2 Normal >60.0 [facility] Comment on above: Result Comment: The [facility]???s estimated glomerular filtration rate (eGFR) will no [...] individuals. Performed By: #### L [id number] #### [facility] ([facility]) [address] [place] [address] Glucose [Mass/Vol] 99 mg/dL Normal 70-[address] [facility] Comment on above: Performed By: #### L [id number] #### [facility] ([facility]) [address] [place] [address] Potassium [Moles/Vol] 4.1 mmol/L Normal 3.5-5.1 [facility] Comment on above: Performed By: #### L [id number] #### [facility] ([facility]) [address] [place] [address] Protein [Mass/Vol] 6.6 g/dL Normal 6.0-8.[address] [facility] Comment on above: Performed By: #### L [id number] #### [facility] ([facility]) [address] [place] [address] Sodium [Moles/Vol] 139 mmol/L Normal 136-[address] [facility] Comment on above: Performed By: #### L [id number] #### [facility] ([facility]) [address] [place] [address] Urea nitrogen [Mass/Vol] 19 mg/dL Normal 7-25 [facility] Comment on above: Performed By: #### L [id number] #### [facility] ([facility]) [address] [place] [address] UREA NITROGEN/CREATININ E (MASS RATIO) IN SER/PLAS 26.0 Normal [facility] Comment on above: Performed By: #### L [id number] #### [facility] ([facility]) [address] [place] [address] CONSULTon 01-01-2025 CONSULT Inpatient consult to Cardiothoracic Surgery Consult performed by: Felisha Hawk CNP Consult ordered by: Benny Ross MD Reason for consult: Recurrent Spontaneous Pneumothorax Assessment/Recommendations : See Plan Below History Of Present Illness Juliette Hernández is a 29 y.o. female with medical history significant for anxiety, depression, and polysubstance abuse with history of overdose. Medical history obtained from the patient and the medical records. She presenting as direct admission to [facility] early this morning, transferred from [facility]. Upon presentation to [facility], she complained of right sided chest pain [...] tube was placed. She was transferred to [facility] for surgical evaluation for possible VATS [...] not hav (more content not included)... Normal [facility] FERRITINon 01-01-2025 FERRITIN (NG/ML) IN SER/PLAS 25.0 ng/mL Normal 11.0-307.0 [facility] Comment on above: Performed By: #### L [id number] #### [facility] ([facility]) [address] [place] [address] FOLATEon 01-01-2025 FOLATE (NG/ML) IN SER/PLAS 17.34 ng/mL Normal 6.6-1000 [facility] Comment on above: Performed By: #### L [id number] #### [facility] ([facility]) [address] [place] [address] IRON AND TIBCon 01-01-2025 IRON (UG/DL) IN SER/PLAS 53 ug/dL Normal 50-212 [facility] Comment on above: Performed By: #### L [id number] #### [facility] , IRON BINDING CAPACITY (UG/DL) IN SER/PLAS 378 ug/dL Normal 250-450 [facility] Comment on above: Performed By: #### L [id number] #### [facility] , IRON BINDING CAPACITY.UNSATURAT ED (UG/DL) IN SER/PLAS 325.0 ug/dL Normal 155.0-355.0 [facility] Comment on above: Performed By: #### L [id number] #### [facility] , IRON SATURATION (%) IN SER/PLAS 14 % Low 20-50 [facility] Comment on above: Performed By: #### L [id number] #### [facility] , TSH3 REFLEX TO FT4on 025 THYROTROPIN (MIU/L) IN SER/PLAS BY DETECTION LIMIT <= 0.05 MIU/L 2.68 mIU/L Normal 0.34-5.60 [facility] Comment on above: Performed By: #### L [id number] #### [facility] ([facility]) [address] [place] [address] VITAMIN B12on 01-01-2025 Cobalamin (Vitamin B12) [Mass/Vol] 299 pg/mL Normal 180-914 [facility] Comment on above: Result Comment: REFE RENCE RANGES: 180-914 pg/mL Normal 145-179 pg/mL Indeterminate <145 pg/mL Deficient Performed By: #### L [id number] #### [facility] ([facility]) [address] [place] [address] HCV RNA,Quant,PCRon 12-11-19 25 HCV RNA,Quant Not detected Normal [facility] Comment on above: Result Comment: INTERPRETIVE [...] Performed By: #### U JERRY REBOLLEDO #### [address] [place], [place] [id number] Mortgage Field Inspector: Adonis Thomas MD CBCon 12-08-2024 Erythrocyte distribution width (RBC) [Ratio] 13.1 % Normal 11.8-14.4 [facility] Comment on above: Performed By: #### W P #### [address] [place], [place] [id number] Mortgage Field Inspector: Adonis Thomas MD Hematocrit (Bld) [Volume fraction] 33.8 % Low 36.3-47.1 [facility] Comment on above: Performed By: #### W P #### [address] [place], [facility]83 Mortgage Field Inspector: Adonis Thomas MD Hemoglobin (Bld) [Mass/Vol] 10.9 g/dL Low 11.9-15.1 [facility] Comment on above: Performed By: #### W P #### [address] [place], [place] [id number] Mortgage Field Inspector: Adonis Thomas MD MCH (RBC) [Entitic mass] 27.0 pg Normal 25.2-33.5 [facility] Comment on above: Performed By: #### W P #### [address] [place], [place] [id number] Mortgage Field Inspector: Adonis Thomas MD MCHC (RBC) [Mass/Vol] 32.2 g/dL Normal 28.4-34.8 [facility] Comment on above: Performed By: #### W P #### [address] [place], [place] [id number] Mortgage Field Inspector: Adonis Thomas MD MCV (RBC) [Entitic vol] 83.9 fL Normal 82.6-102.9 [facility] Comment on above: Performed By: #### W P #### [facility] [address] [place] [address] Mortgage Field Inspector: Adonis Thomas MD Platelet mean volume (Bld) [Entitic vol] 9.8 fL Normal 8.1-13.5 [facility] Comment on above: Performed By: #### W P #### [facility] [address] [place] [address] Mortgage Field Inspector: Adonis Thomas MD Platelets (Bld) [#/Vol] 332 10*3/uL Normal 138-453 [facility] Comment on above: Performed By: #### W P #### [facility] [address] [place] [address] Mortgage Field Inspector: Adonis Thomas MD RBC (Bld) [#/Vol] 4.03 10*6/uL Normal 3.95-5.11 [facility] Comment on above: Performed By: #### W P #### [facility] [address] [place] [address] Mortgage Field Inspector: Adonis Thomas MD Interpretation and review of laboratory results Abnormal [facility] Nucleated RBC/100 WBC (Bld) [Ratio] 0.0 % 0.0 per 100 WBC [facility] WBC other (Bld) [#/Vol] 4.8 [facility] NRBC Automated 0.0 per 100 WBC Normal 0.0 [facility] Comment on above: Performed By: #### W P #### [facility] [address] [place] [address] Mortgage Field Inspector: Adonis Thomas MD WBC (Bld) [#/Vol] 4.8 10*3/uL Normal 3.5-11.3 [facility] Comment on above: Performed By: #### W P #### [facility] [address] [place], [place] [id number] Mortgage Field Inspector: Adonis Thomas MD Comp Metabolic Profon 2024 Albumin [Mass/Vol] 4.0 g/dL Normal 3.5-5.2 [facility] Comment on above: Performed By: #### W P #### [facility] [address] [place], [place] [phone] Mortgage Field Inspector: Adonis Thomas MD Albumin/Glob Ratio 1.6 Normal 1.0-2.5 [facility] Comment on above: Performed By: #### W P #### [facility] [address] [place], [place] [id number] Mortgage Field Inspector: Adonis Thomas MD Alkaline Phos 65 U/L Normal 35-104 [facility] Comment on above: Performed By: #### W P #### [facility] [address] [place], [place] [id number] Mortgage Field Inspector: Adonis Thomas MD ALT [Catalytic activity/Vol] 28 U/L Normal 10-35 [facility] Comment on above: Performed By: #### W P #### [facility] [facility] [address] [place], [place] [id number] Mortgage Field Inspector: Adonis Thomas MD Anion gap [Moles/Vol] 10 mmol/L Normal 9-16 [facility] Comment on above: Performed By: #### W P #### [facility] [address] [place], [place] [phone] Mortgage Field Inspector: Adonis Thomas MD AST [Catalytic activity/Vol] 27 U/L Normal 10-35 [facility] Comment on above: Performed By: #### W P #### [facility] [address] [place], [place] [phone] Mortgage Field Inspector: Adonis Thomas MD Bilirubin [Mass/Vol] mg/dL Normal 0.00-1.20 [facility] Comment on above: Performed By: #### W P #### [facility] [address] [place] [address] Mortgage Field Inspector: Adonis Thomas MD BUN/CRE Ratio 28 High 9-20 [facility] Comment on above: Performed By: #### W P #### [facility] [address] [place], [place] [phone] Mortgage Field Inspector: Adonis Thomas MD Calcium [Mass/Vol] 9.0 mg/dL Normal 8.6-10.4 [facility] Comment on above: Performed By: #### W P #### [facility] [address] [place], [place] [phone] Mortgage Field Inspector: Adonis Thomas MD Chloride [Moles/Vol] 102 mmol/L Normal 98-107 [facility] Comment on above: Performed By: #### W P #### [facility] [address] [place], [place] [phone] Mortgage Field Inspector: Adonis Thomas MD CO2 [Moles/Vol] 28 mmol/L Normal 20-31 [facility] Comment on above: Performed By: #### W P #### [facility] [address] [place], [place] [phone] Mortgage Field Inspector: Adonis Thomas MD Creatinine [Mass/Vol] 0.6 mg/dL Normal 0.50-0.90 [facility] Comment on above: Performed By: #### W P #### [facility] [address] [place], [place] [phone] Mortgage Field Inspector: Adonis Thomas MD GFR/1.73 sq M.predicted among non-blacks MDRD (S/P/Bld) [Vol rate/Area] mL/min/{1.73_m2} Normal >60 [facility] Comment on above: Result Comment: These results [...] secretion. Performed By: #### W P #### [facility] [address] [place], [place] [phone] Mortgage Field Inspector: Adonis Thomas MD Glucose [Mass/Vol] 105 mg/dL High 74-99 [facility] Comment on above: Performed By: #### W P #### [facility] [address] [place], [place] [phone] Mortgage Field Inspector: Adonis Thomas MD Potassium [Moles/Vol] 4.1 mmol/L Normal 3.7-5.3 [facility] Comment on above: Performed By: #### W P #### [facility] [address] [place] [address] [place] [address] Mortgage Field Inspector: Adonis Thomas MD Protein [Mass/Vol] 6.5 g/dL Low 6.6-8.7 [facility] Comment on above: Performed By: #### W P #### [facility] [address] [place] [address] [place] [address] Mortgage Field Inspector: Adonis Thomas MD Sodium [Moles/Vol] 140 mmol/L Normal 136-145 [facility] Comment on above: Performed By: #### W P #### [facility] [address] [place] [address] Mortgage Field Inspector: Adonis Thomas MD Urea nitrogen [Mass/Vol] 17 mg/dL Normal 6-20 [facility] Comment on above: Performed By: #### W P #### [facility] [address] [place] [address] [place], [place] [phone] Mortgage Field Inspector: Adonis Thomas MD [facility] Met[facility] 12-08-2024 Albumin [Mass/Vol] 4.0 g/dL 3.5 - 5.2 g/dL [facility] Albumin/Globulin [Mass ratio] 1.6 {ratio} 1.0 - 2.5 [facility] ALP [Catalytic activity/Vol] 65 U/L 35 - 104 U/L [facility] ALT [Catalytic activity/Vol] 28 U/L 10 - 35 U/L [facility] Anion gap [Moles/Vol] 10 mmol/L 9 - 16 mmol/L [facility] AST [Catalytic activity/Vol] 27 U/L 10 - 35 U/L [facility] Bilirubin [Mass/Vol] mg/dL 0.00 - 1.20 mg/dL [facility] Calcium [Mass/Vol] 9.0 mg/dL 8.6 - 10. 4 mg/dL [facility] Chloride [Moles/Vol] 102 mmol/L 98 - 107 mmol/L [facility] CO2 [Moles/Vol] 28 mmol/L 20 - 31 mmol/L [facility] Creatinine [Mass/Vol] 0.6 mg/dL 0.50 - 0.90 mg/dL [facility] Est, Glom Filt Rate - PINF [facility] Comment on above: These results are not [...] 105 mg/dL High 74 - 99 mg/dL [facility] Interpretation and review of laboratory results Abnormal [facility] Potassium [Moles/Vol] 4.1 mmol/L 3.7 - 5.3 mmol/L [facility] Protein [Mass/Vol] 6.5 g/dL Low 6.6 - 8.7 g/dL [facility] Sodium [Moles/Vol] 140 mmol/L 136 - 145 mmol/L [facility] Urea nitrogen [Mass/Vol] 17 mg/dL 6 - 20 mg/dL [facility] Urea nitrogen/Creatinin e [Mass ratio] 28 mg/mg High 9 - 20 [facility] HCG Qualitative, Serumon HCG ( test) Ql Negative NEGATIVE [facility] Comment on above: Specimens with hCG l evels near the threshold of the test (25 mIU/mL) may give a negative or indeterminate result. In such cases, another test should be performed with a new specimen in 48-72 hours. If early is suspected clinically in this setting, correlation with quantitative serum b-hCG level is suggested. [facility] has confirmed the use of plasma for this test. This has not been cleared or approved by the U.S. Food and Drug Administration. The FDA has determined that such clearance is not necessary. [facility] HCG Screen, Bloodon 12-08-19 25 HCG Screen, Blood Negative Normal NEG [facility] Comment on above: Result Comment: Spec imens with hCG levels near the threshold of the test (25 mIU/mL) may give a negative or indeterminate result. In such cases, another test should be performed with a new specimen in 48-72 hours. If early is suspected clinically in this setting, correlation with quantitative serum b-hCG level is suggested. [facility] has confirmed the use of plasma for this test. This has not been cleared or approved by the U.S. Food and Drug Administration. The FDA has determined that such clearance is not necessary. Performed By: #### W P #### [facility] [address] [place] [address] [place] [address] Mortgage Field Inspector: Adonis Thomas MD HCV RNA,Quant,PCRon 12-08-19 25 Source .PLASMA Normal [facility] Comment on above: Performed By: #### U MICAO, UAX #### [facility] [address] [place] [address] Mortgage Field Inspector: Adonis Thomas MD HIV Ag/Abon 12-08-2024 HIV Ag/Ab Non-Reactive Normal NR [facility] Comment on above: Result Comment: No l aboratory evidence of HIV infection. If acute HIV infection is suspected, consider testing for HIV-1 RNA. Performed By: #### W P #### [facility] [address] [place], [place] [phone] Mortgage Field Inspector: Adonis Thomas MD HIV Screenon 12-08-2024 HIV 1+2 Ab+HIV1 p24 Ag IA Ql Non-Reactive NONREACTIVE [facility] Comment on above: No laboratory eviden ce of HIV infection. If acute HIV infection is suspected, consider testing for HIV-1 RNA. [facility] Hep B Surf Abon 12-08-2024 Hep B Surf Ab <3.50 Normal <10 [facility] Comment on above: Result Comment: REFERENCE RANGE: <10.0 NON-REACTIVE/NOT IMMUNE >=10.0 REACTIVE/IMMUNE Performed By: #### W P #### [address] [place], [place] [phone] Mortgage Field Inspector: Adonis Thomas MD Hepatitis Acute [facility] 12-08 Hep A Ab,IgM Non-Reactive Normal [facility] Comment on above: Performed By: #### W P #### [facility] [address] [place], [place] [phone] Mortgage Field Inspector: Adonis Thomas MD Hep B Core Ab,IgM Non-Reactive Normal [facility] Comment on above: Performed By: #### W P #### [facility] [address] [place] [address] Mortgage Field Inspector: Adonis Thomas MD Hep B Surf Ag Non-Reactive Normal [facility] Comment on above: Performed By: #### W P #### [facility] [address] [place], [place] [phone] Mortgage Field Inspector: Adonis Thomas MD Hep C Ab Non-Reactive Normal [facility] Comment on above: Result Comment: [...] PCR. Performed By: #### W P #### [facility] [address] [place] [address] Mortgage Field Inspector: Adonis Thomas MD Hepatitis B Surface Antibody on 12-08-2024 HBV surface Ab IA Qn m[IU]/mL NINF [facility] Comment on above: REFERENCE RANGE: <10.0 NON-REACTIVE/NOT IMMUNE >=10.0 REACTIVE/IMMUNE Hepatitis Panel, Acuteon HAV IgM IA Ql Non-Reactive NONREACTIVE [facility] HBV core IgM IA Ql Non-Reactive NONREACTIVE [facility] HBV surface Ag IA Ql Non-Reactive NONREACTIVE [facility] HCV Ab IA Ql Non-Reactive NONREACTIVE [facility] Comment on above: The hepatitis C procedure [...] RNA by PCR. No Panel Informationon 12-08 [facility] T. pallidum Abon 12-08-2024 T. pallidum Ab IA Ql (S) Non-Reactive NONREACTIVE [facility] Comment on above: T. pallidum antibodies are not detected. There is no serological evidence of infection with T. pallidum (early primary syphilis cannot be excluded). Retest in 2-4 weeks if syphilis is clinically suspect. [facility] T.pallidum Ab Screenon 12-08 T.pallidum Ab Screen Non-Reactive Normal NR [facility] Comment on above: Result Comment: T. pallidum antibodies are not detected. There is no serological evidence of infection with T. pallidum (early primary syphilis cannot be excluded). Retest in 2-4 weeks if syphilis is clinically suspect. Performed By: #### U JERYR REBOLLEDO #### [facility] [address] [place] [address] Mortgage Field Inspector: Adonis Thomas MD Chlamydia/GC,DNA Ampon 12-07 Chlamydia Probe Negative [facility] Comment on above: Result Comment: [...] target. Performed By: #### S WCGP #### [id number] [place], [place] [phone] Mortgage Field Inspector: Perry Marte MD Gonorrhea Probe Negative [facility] Comment on above: Result Comment: [...] target. Performed By: #### S WCGP #### [facility] [address] [place], [place] [phone] Mortgage Field Inspector: Perry Marte MD Trichomonas/Wet Prepon 12-04 Trichomonas/Wet Prep Specimen Description .VAGINAL SPECIMEN Direct Exam YEAST PRESENT CLUE CELLS SEEN NO TRICHOMONAS SEEN Report Status FINAL 12/04/2024 [facility] Comment on above: Performed By: #### W P #### [facility] [address] [place] [address] Mortgage Field Inspector: Adonis Thomas MD Wet prep, genitalon 12-04-19 25 Microorganism or agent identified Nom (Unsp spec) YEAST PRESENT [facility] Microorganism or agent identified Nom (Unsp spec) CLUE CELLS SEEN [facility] Microorganism or agent identified Nom (Unsp spec) NO TRICHOMONAS SEEN [facility] Specimen Description .VAGINAL SPECIMEN [facility] CBCon 10-14-2024 Erythrocyte distribution width (RBC) [Ratio] 13.8 % Normal 11.8-14.4 [facility] Comment on above: Performed By: #### S WCGP #### [facility] [employer] [address] [place] [address] Mortgage Field Inspector: Perry Marte MD Hematocrit (Bld) [Volume fraction] 36.1 % Low 36.3-47.1 [facility] Comment on above: Performed By: #### S WCGP #### [address] [address] Mortgage Field Inspector: Perry Marte MD Hemoglobin (Bld) [Mass/Vol] 11.6 g/dL Low 11.9-15.1 [facility] Comment on above: Performed By: #### S WCGP #### [address] [address] Mortgage Field Inspector: Perry Marte MD MCH (RBC) [Entitic mass] 28.0 pg Normal 25.2-33.5 [facility] Comment on above: Performed By: #### S WCGP #### [address] [address] Mortgage Field Inspector: Perry Marte MD MCHC (RBC) [Mass/Vol] 32.1 g/dL Normal 28.4-34.8 [facility] Comment on above: Performed By: #### S WCGP #### [facility] [employer] [address] [place] [address] Mortgage Field Inspector: Perry Marte MD MCV (RBC) [Entitic vol] 87.0 fL Normal 82.6-102.9 [facility] Comment on above: Performed By: #### S WCGP #### [facility] [employer] [address] [place] [address] Mortgage Field Inspector: Perry Marte MD NRBC Automated 0.0 per 100 WBC Normal 0.0 [facility] Comment on above: Performed By: #### S WCGP #### [address] [address] Mortgage Field Inspector: Perry Marte MD Platelet mean volume (Bld) [Entitic vol] 9.9 fL Normal 8.1-13.5 [facility] Comment on above: Performed By: #### S WCGP #### [address] [address] Mortgage Field Inspector: Perry Marte MD Platelets (Bld) [#/Vol] 312 10*3/uL Normal 138-453 [facility] Comment on above: Performed By: #### S WCGP #### [address] [address] Mortgage Field Inspector: Perry Marte MD RBC (Bld) [#/Vol] 4.15 10*6/uL Normal 3.95-5.11 [facility] Comment on above: Performed By: #### S WCGP #### [address] [address] Mortgage Field Inspector: Perry Marte MD WBC (Bld) [#/Vol] 6.3 10*3/uL Normal 3.5-11.3 [facility] Comment on above: Performed By: #### S WCGP #### [address] [address] Mortgage Field Inspector: Perry Marte MD Comp Metabolic Profon 2023 Albumin [Mass/Vol] 4.5 g/dL Normal 3.5-5.2 [facility] Comment on above: Performed By: #### S WCGP #### [address] [address] Mortgage Field Inspector: Perry Marte MD Albumin/Glob Ratio 1.7 Normal 1.0-2.5 [facility] Comment on above: Performed By: #### S WCGP #### [address] [address] Mortgage Field Inspector: Perry Marte MD Alkaline Phos 86 U/L Normal 35-104 [facility] Comment on above: Performed By: #### S WCGP #### [facility] [address] [place] [address] Mortgage Field Inspector: Perry Marte MD ALT [Catalytic activity/Vol] 19 U/L Normal 10-35 [facility] Comment on above: Performed By: #### S WCGP #### [address] [address] Mortgage Field Inspector: Perry Marte MD Anion gap [Moles/Vol] 11 mmol/L Normal 9-16 [facility] Comment on above: Performed By: #### S WCGP #### [address] [address] Mortgage Field Inspector: Perry Marte MD AST [Catalytic activity/Vol] 19 U/L Normal 10-35 [facility] Comment on above: Performed By: #### S WCGP #### [address] [address] Mortgage Field Inspector: Perry Marte MD Bilirubin [Mass/Vol] mg/dL Normal 0.00-1.20 [facility] Comment on above: Performed By: #### S WCGP #### [address] [address] Mortgage Field Inspector: Perry Marte MD BUN/CRE Ratio 23 High 9-20 [facility] Comment on above: Performed By: #### S WCGP #### [address] [address] Mortgage Field Inspector: Perry Marte MD Calcium [Mass/Vol] 9.4 mg/dL Normal 8.6-10.4 [facility] Comment on above: Performed By: #### S WCGP #### [address] [address] Mortgage Field Inspector: Perry Marte MD Chloride [Moles/Vol] 101 mmol/L Normal 98-107 [facility] Comment on above: Performed By: #### S WCGP #### [facility] [address] [place] [address] Mortgage Field Inspector: Perry Marte MD CO2 [Moles/Vol] 26 mmol/L Normal 20-31 [facility] Comment on above: Performed By: #### S WCGP #### [facility] [address] [place] [address] Mortgage Field Inspector: Perry Marte MD Creatinine [Mass/Vol] 0.7 mg/dL Normal 0.50-0.90 [facility] Comment on above: Performed By: #### S WCGP #### [address] [address] Mortgage Field Inspector: Perry Marte MD GFR/1.73 sq M.predicted among non-blacks MDRD (S/P/Bld) [Vol rate/Area] mL/min/{1.73_m2} Normal >60 [facility] Comment on above: Result Comment: These results [...] Performed By: #### S WCGP #### [facility] [employer] [address] [place] [address] Mortgage Field Inspector: Perry Marte MD Glucose [Mass/Vol] 94 mg/dL Normal 74-99 [facility] Comment on above: Performed By: #### S WCGP #### [facility] [employer] [address] [place] [address] Mortgage Field Inspector: Perry Marte MD Potassium [Moles/Vol] 4.0 mmol/L Normal 3.7-5.3 [facility] Comment on above: Performed By: #### S WCGP #### [facility] [address] [place] [address] Mortgage Field Inspector: Perry Marte MD Protein [Mass/Vol] 7.1 g/dL Normal 6.6-8.7 [facility] Comment on above: Performed By: #### S WCGP #### [address] [address] Mortgage Field Inspector: Perry Marte MD Sodium [Moles/Vol] 138 mmol/L Normal 136-145 [facility] Comment on above: Performed By: #### S WCGP #### [address] [place] [address] Mortgage Field Inspector: Perry Marte MD Urea nitrogen [Mass/Vol] 16 mg/dL Normal 6-20 [facility] Comment on above: Performed By: #### S WCGP #### [address] [address] Mortgage Field Inspector: Perry Marte MD HCG Screen, Bloodon 10-14-20 24 HCG Screen, Blood Negative Normal NEG [facility] Comment on above: Result Comment: Spec imens with hCG levels near the threshold of the test (25 mIU/mL) may give a negative or indeterminate result. In such cases, another test should be performed with a new specimen in 48-72 hours. If early is suspected clinically in this setting, correlation with quantitative serum b-hCG level is suggested. [facility] has confirmed the use of plasma for this test. This has not been cleared or approved by the U.S. Food and Drug Administration. The FDA has determined that such clearance is not necessary. Performed By: #### S WCGP #### [address] [place] [address] Mortgage Field Inspector: Perry Marte MD HIV Ag/Abon 10-14-2024 HIV Ag/Ab Non-Reactive Normal NR [facility] Comment on above: Result Comment: No l aboratory evidence of HIV infection. If acute HIV infection is suspected, consider testing for HIV-1 RNA. Performed By: #### S WCGP #### [facility] [employer] [address] [place] [address] Mortgage Field Inspector: Perry Marte MD Hep B Surf Abon 10-14-2024 Hep B Surf Ab <3.50 Normal <10 [facility] Comment on above: Result Comment: REFERENCE RANGE: <10.0 NON-REACTIVE/NOT IMMUNE >=10.0 REACTIVE/IMMUNE Performed By: #### S WCGP #### [facility] [employer] [address] [place] [address] Mortgage Field Inspector: Perry Marte MD Hepatitis Acute [facility] 10-14 Hep A Ab,IgM Non-Reactive Normal [facility] Comment on above: Performed By: #### S WCGP #### [facility] [employer] [address] [place] [address] Mortgage Field Inspector: Perry Marte MD Hep B Core Ab,IgM Non-Reactive Normal [facility] Comment on above: Performed By: #### S WCGP #### [address] [address] Mortgage Field Inspector: Perry Marte MD Hep B Surf Ag Non-Reactive Normal [facility] Comment on above: Performed By: #### S WCGP #### [address] [address] Mortgage Field Inspector: Perry Marte MD Hep C Ab Non-Reactive Normal [facility] Comment on above: Result Comment: [...] PCR. Performed By: #### S WCGP #### [address] [address] Mortgage Field Inspector: Perry Marte MD T.pallidum Ab Screenon 10-14 T.pallidum Ab Screen Non-Reactive Normal NR [facility] Comment on above: Result Comment: T. pallidum antibodies are not detected. There is no serological evidence of infection with T. pallidum (early primary syphilis cannot be excluded). Retest in 2-4 weeks if syphilis is clinically suspect. Performed By: #### S WCGP #### [facility] [employer] [address] [place] [phone] Mortgage Field Inspector: Perry Marte MD Chlamydia/GC,DNA Ampon 09-29 Chlamydia Probe Negative Normal NEG [facility] Comment on above: Result Comment: CHLA [...] target. Performed By: #### S WCGP #### [facility] [address] [place] [phone] Mortgage Field Inspector: Perry Marte MD Gonorrhea Probe Negative Normal [facility] Comment on above: Result Comment: [...] target. Performed By: #### S WCGP #### [facility] [address] [place] [phone] Mortgage Field Inspector: Perry Marte MD Trichomonas/Wet Prepon 09-28 Trichomonas/Wet Prep Specimen Description .VAGINAL SPECIMEN Direct Exam FEW CLUE CELLS SEEN NO TRICHOMONAS SEEN NO YEAST OBSERVED Report Status FINAL 09/28/2024 Abnormal [facility] Comment on above: Performed By: #### W P #### [facility] [address] [place] [address] Mortgage Field Inspector: Adonis Thomas MD Wet prep, genitalon 09-28-20 24 Interpretation and review of laboratory results Abnormal [facility] Microorganism or agent identified Nom (Unsp spec) FEW CLUE CELLS SEEN Abnormal [facility] Microorganism or agent identified Nom (Unsp spec) NO TRICHOMONAS SEEN [facility] Microorganism or agent identified Nom (Unsp spec) NO YEAST OBSERVED [facility] Specimen Description .VAGINAL SPECIMEN [facility] Trichomonas/Wet Prepon 05-26 Trichomonas/Wet Prep Specimen Description .VAGINAL SPECIMEN Direct Exam NO YEAST OBSERVED NO TRICHOMONAS SEEN NO CLUE CELLS SEEN Report Status FINAL 05/26/2024 Normal [facility] Comment on above: Performed By: #### S [facility] #### [address] [phone] Mortgage Field Inspector: Perry Marte MD Wet prep, genitalon 05-26-20 Microorganism or agent identified Nom (Unsp spec) NO YEAST OBSERVED [facility] Microorganism or agent identified Nom (Unsp spec) NO TRICHOMONAS SEEN [facility] Microorganism or agent identified Nom (Unsp spec) NO CLUE CELLS SEEN [facility] Specimen Description .VAGINAL SPECIMEN [facility] Chlamydia/GC,DNA Ampon 05-11 Chlamydia Probe Negative Normal NEG [facility] Comment on above: Result Comment: CHLA [...] target. Performed By: #### W P #### [facility] [address] [place] [address] Mortgage Field Inspector: Adonis Thomas MD Gonorrhea Probe Negative Normal NEG [facility] Comment on above: Result Comment: NEIS [...] target. Performed By: #### W P #### [facility] [address] [place] [address] Mortgage Field Inspector: Adonis Thomas MD Trichomonas/Wet Prepon 05-08 Trichomonas/Wet Prep Specimen Description .VAGINAL SPECIMEN Direct Exam MODERATE CLUE CELLS SEEN NO TRICHOMONAS SEEN NO YEAST OBSERVED Report Status FINAL 05/08/2024 Abnormal [facility] Comment on above: Performed By: #### W P #### [facility] [address] [place] [address] [place] [address] Mortgage Field Inspector: Adonis Thomas MD UA w/Reflex Cultureon 2023 Bilirubin, SemiQt,Ur Negative Normal NEG [facility] Comment on above: Performed By: #### S WCGP #### [facility] [address] [place] [phone] Mortgage Field Inspector: Perry Marte MD Blood, Urine TRACE Abnormal NEG [facility] Comment on above: Performed By: #### S WCGP #### [facility] [address] [place] [phone] Mortgage Field Inspector: Perry Marte MD Clarity (U) Clear Normal CLEAR [facility] Comment on above: Performed By: #### S WCGP #### [facility] [address] [place] [address] Mortgage Field Inspector: Perry Marte MD Color (U) Yellow Normal YEL [facility] Comment on above: Performed By: #### S WCGP #### [phone] [place] [address] Mortgage Field Inspector: Perry Marte MD Glucose Ql (U) Negative Normal NEG [facility] Comment on above: Performed By: #### S WCGP #### [address] [phone] Mortgage Field Inspector: Perry Marte MD Ketones Ql (U) Negative Normal NEG [facility] Comment on above: Performed By: #### S WCGP #### [address] [address] Mortgage Field Inspector: Perry Marte MD Leukocyte esterase Test strip Ql (U) Negative Normal NEG [facility] Comment on above: Performed By: #### S WCGP #### [address] [phone] Mortgage Field Inspector: Perry Marte MD Nitrite,Ur Negative Normal NEG [facility] Comment on above: Performed By: #### S WCGP #### [address] [address] Mortgage Field Inspector: Perry Marte MD PH,Ur 6.0 Normal 5.0-9.0 [facility] Comment on above: Performed By: #### S WCGP #### [address] [address] Mortgage Field Inspector: Perry Marte MD Protein Ql (U) Negative Normal NEG [facility] Comment on above: Performed By: #### S WCGP #### [address] [address] Mortgage Field Inspector: Perry Marte MD Spec. [place],Ur >1.030 High 1.010-1.020 [facility] Comment on above: Performed By: #### S WCGP #### [address] [address] Mortgage Field Inspector: Perry Marte MD Urobilinogen,Ur Normal Normal 0.0-1.0 [facility] Comment on above: Performed By: #### S WCGP #### [facility] [address] [place], [place] [phone] Mortgage Field Inspector: Perry Marte MD Urinalysis,Microon 4 Bacteria 1+ Abnormal NONE [facility] Comment on above: Performed By: #### W P #### [facility] [address] [place] [address] [place] [address] Mortgage Field Inspector: Adonis Thomas MD Epithelial cells LM Ql (Urine sed) 5 TO 10 Normal 0-25 [facility] Comment on above: Performed By: #### W P #### [address] [place] [address] Mortgage Field Inspector: Adonis Thomas MD Urine RBC's 0 TO 2 Normal 0-2 [facility] Comment on above: Performed By: #### W P #### [facility] [address] [place] [address] [place] [address] Mortgage Field Inspector: Adonis Thomas MD Urine WBC's 0 TO 2 Normal 0-5 [facility] Comment on above: Performed By: #### W P #### [address] [place] [address] Mortgage Field Inspector: Adonis Thomas MD CBC with Diffon 05-04-2024 Abs. Basophil 0.06 k/uL Normal 0.00-0.20 [facility] Comment on above: Performed By: #### H CG, CDP, CP #### [facility] [address] [place] [address] [place], [place] [phone] Mortgage Field Inspector: Adonis Thomas MD #### TREP, HIVCMB, PHEP #### [facility] [address] [place] [address] Mortgage Field Inspector: Perry Marte MD Abs.Imm.Granulocyt e <0.03 Normal 0.00-0.30 [facility] Comment on above: Performed By: #### H CG, CDP, CP #### [address] [place] [phone] Mortgage Field Inspector: Adonis Thomas MD #### TREP, HIVCMB, PHEP #### [address] [phone] Mortgage Field Inspector: Perry Marte MD Abs.Neutrophil (Seg) 3.64 k/uL Normal 1.50-8.10 [facility] Comment on above: Performed By: #### H CG, CDP, CP #### [address] [place] [phone] Mortgage Field Inspector: Adonis Thomas MD #### TREP, HIVCMB, PHEP #### [place] [address] Mortgage Field Inspector: Perry Marte MD Basophils/100 WBC (Bld) 1 % Normal 0-2 [facility] Comment on above: Performed By: #### H CG, CDP, CP #### [address] [place] [phone] Mortgage Field Inspector: Adonis Thomas MD #### TREP, HIVCMB, PHEP #### [place] [address] Mortgage Field Inspector: Perry Marte MD Eosinophils (Bld) [#/Vol] 0.11 10*3/uL Normal 0.00-0.44 [facility] Comment on above: Performed By: #### H CG, CDP, CP #### [address] [place] [phone] Mortgage Field Inspector: Adonis Thomas MD #### TREP, HIVCMB, PHEP #### [place] [phone] Mortgage Field Inspector: Perry Marte MD Eosinophils/100 WBC (Bld) 2 % Normal 1-4 [facility] Comment on above: Performed By: #### H JOSÉ ROWLAND, CP #### [address] [place] [phone] Mortgage Field Inspector: Adonis Thomas MD #### TREP, HIVCMB, PHEP #### [address] [phone] Mortgage Field Inspector: Perry Marte MD Erythrocyte distribution width (RBC) [Ratio] 12.9 % Normal 11.8-14.4 [facility] Comment on above: Performed By: #### H JOSÉ ROWLAND, CP #### [address] [place] [phone] Mortgage Field Inspector: Adonis Thomas MD #### TREP, HIVCMB, PHEP #### [place] [phone] Mortgage Field Inspector: Perry Marte MD Hematocrit (Bld) [Volume fraction] 34.4 % Low 36.3-47.1 [facility] Comment on above: Performed By: #### H JOSÉ ROWLAND, CP #### [address] [place] [phone] Mortgage Field Inspector: Adonis Thomas MD #### TREP, HIVCMB, PHEP #### [address] [phone] Mortgage Field Inspector: Perry Marte MD Hemoglobin (Bld) [Mass/Vol] 11.4 g/dL Low 11.9-15.1 [facility] Comment on above: Performed By: #### H JOSÉ ROWLAND, CP #### [address] [place] [address] Mortgage Field Inspector: Adonis Thomas MD #### TREP, HIVCMB, PHEP #### [address] [address] Mortgage Field Inspector: Perry Marte MD Immature granulocytes/100 WBC (Bld) 0 % Normal 0 [facility] Comment on above: Performed By: #### H CG, CDP, CP #### [facility] [address] [place] [address] Dr. [place] [phone] Mortgage Field Inspector: Adonis Thomas MD #### TREP, HIVCMB, PHEP #### [address] [phone] Mortgage Field Inspector: Perry Marte MD Lymphocytes (Bld) [#/Vol] 1.91 10*3/uL Normal 1.10-3.70 [facility] Comment on above: Performed By: #### H CG, CDP, CP #### [address] [place] [phone] Mortgage Field Inspector: Adonis Thomas MD #### TREP, HIVCMB, PHEP #### [address] [phone] Mortgage Field Inspector: Perry Marte MD Lymphocytes/100 WBC (Bld) 30 % Normal 24-43 [facility] Comment on above: Performed By: #### H CG, CDP, CP #### [address] [place] [phone] Mortgage Field Inspector: Adonis Thomas MD #### TREP, HIVCMB, PHEP #### [address] [address] Mortgage Field Inspector: Perry Marte MD MCH (RBC) [Entitic mass] 29.4 pg Normal 25.2-33.5 [facility] Comment on above: Performed By: #### H CG, CDP, CP #### [facility] [address] [place] [address] Dr. [place] [phone] Mortgage Field Inspector: Adonis Thomas MD #### TREP, HIVCMB, PHEP #### [address] [place], [place] [phone] Mortgage Field Inspector: Perry Marte MD MCHC (RBC) [Mass/Vol] 33.1 g/dL Normal 28.4-34.8 [facility] Comment on above: Performed By: #### H CG, CDP, CP #### [address] [place] [phone] Mortgage Field Inspector: Adonis Thomas MD #### TREP, HIVCMB, PHEP #### [place] [phone] Mortgage Field Inspector: Perry Marte MD MCV (RBC) [Entitic vol] 88.7 fL Normal 82.6-102.9 [facility] Comment on above: Performed By: #### H KASHIF CDP, CP #### [address] [place] [phone] Mortgage Field Inspector: Adonsi Thomas MD #### TREP, HIVCMB, PHEP #### [place] [address] Mortgage Field Inspector: Perry Marte MD Monocytes (Bld) [#/Vol] 0.55 10*3/uL Normal 0.10-1.20 [facility] Comment on above: Performed By: #### H KASHIF CDP, CP #### [address] [place] [phone] Mortgage Field Inspector: Adonis Thomas MD #### TREP, HIVCMB, PHEP #### [place] [address] Mortgage Field Inspector: Perry Marte MD Monocytes/100 WBC (Bld) 9 % Normal 3-12 [facility] Comment on above: Performed By: #### H CG, CDP, CP #### [address] [place] [phone] Mortgage Field Inspector: Adonis Thomas MD #### TREP, HIVCMB, PHEP #### [address] [phone] Mortgage Field Inspector: Perry Marte MD Neutrophil (Seg) 58 % Normal 36-65 [facility] Comment on above: Performed By: #### H CG, CDP, CP #### [address] [place] [phone] Mortgage Field Inspector: Adonis Thomas MD #### TREP, HIVCMB, PHEP #### [address] [phone] Mortgage Field Inspector: Perry Marte MD NRBC Automated 0.0 per 100 WBC Normal 0.0 [facility] Comment on above: Performed By: #### H CG, CDP, CP #### [address] [place] [phone] Mortgage Field Inspector: Adonis Thomas MD #### TREP, HIVCMB, PHEP #### [address] [phone] Mortgage Field Inspector: Perry Marte MD Platelet mean volume (Bld) [Entitic vol] 9.6 fL Normal 8.1-13.5 [facility] Comment on above: Performed By: #### H CG, CDP, CP #### [address] [place] [phone] Mortgage Field Inspector: Adonis Thomas MD #### TREP, HIVCMB, PHEP #### [address] [phone] Mortgage Field Inspector: Perry Marte MD Platelets (Bld) [#/Vol] 333 10*3/uL Normal 138-453 [facility] Comment on above: Performed By: #### H CG, CDP, CP #### [address] [place] [phone] Mortgage Field Inspector: Adonis Thomas MD #### TREP, HIVCMB, PHEP #### [address] [place], [place] [phone] Mortgage Field Inspector: Perry Marte MD RBC (Bld) [#/Vol] 3.88 10*6/uL Low 3.95-5.11 [facility] Comment on above: Performed By: #### H CG, CDP, CP #### [facility] [address] [place], [place] [phone] Mortgage Field Inspector: Adonis Thomas MD #### TREP, HIVCMB, PHEP #### [address] [phone] Mortgage Field Inspector: Perry Marte MD WBC (Bld) [#/Vol] 6.3 10*3/uL Normal 3.5-11.3 [facility] Comment on above: Performed By: #### H CG, CDP, CP #### [address] [place] [address] Mortgage Field Inspector: Adonis Thomas MD #### TREJaswant, HIVCMB, PHEP #### [address] [phone] Mortgage Field Inspector: Perry Marte MD Comp Metabolic Profon 2023 Albumin [Mass/Vol] 4.2 g/dL Normal 3.5-5.2 [facility] Comment on above: Performed By: #### H CG, CDP, CP #### [facility] [address] [place] [address] Mortgage Field Inspector: Adonis Thomas MD #### TREP, HIVCMB, PHEP #### [address] [place], [place] [phone] Mortgage Field Inspector: Perry Marte MD Albumin/Glob Ratio 1.6 Normal 1.0-2.5 [facility] Comment on above: Performed By: #### H CG, CDP, CP #### [facility] [address] [place], [place] [phone] Mortgage Field Inspector: Adonis Thomas MD #### TREP, HIVCMB, PHEP #### [address] [place], [place] [phone] Mortgage Field Inspector: Perry Marte MD Alkaline Phos 77 U/L Normal 35-104 [facility] Comment on above: Performed By: #### H CG, CDP, CP #### [facility] [address] [place], [place] [phone] Mortgage Field Inspector: Adonis Thomas MD #### TREP, HIVCMB, PHEP #### [address] [phone] Mortgage Field Inspector: Perry Marte MD ALT [Catalytic activity/Vol] 16 U/L Normal 5-33 [facility] Comment on above: Performed By: #### H CG, CDP, CP #### [facility] [address] [place], [place] [phone] Mortgage Field Inspector: Adonis Thomas MD #### TREP, HIVCMB, PHEP #### [address] [phone] Mortgage Field Inspector: Perry Marte MD Anion gap [Moles/Vol] 8 mmol/L Low 9-17 [facility] Comment on above: Performed By: #### H CG, CDP, CP #### [facility] [address] [place], [place] [phone] Mortgage Field Inspector: Adonis Thomas MD #### TREP, HIVCMB, PHEP #### [address] [phone] Mortgage Field Inspector: Perry Marte MD AST [Catalytic activity/Vol] 13 U/L Normal <32 [facility] Comment on above: Performed By: #### H CG, CDP, CP #### [facility] [address] [place], [place] [phone] Mortgage Field Inspector: Aodnis Thomas MD #### TREP, HIVCMB, PHEP #### [address] [phone] Mortgage Field Inspector: Perry Marte MD Bilirubin [Mass/Vol] 0.4 mg/dL Normal 0.3-1.2 [facility] Comment on above: Performed By: #### H CG, CDP, CP #### [facility] [address] [place] [phone] Mortgage Field Inspector: Adonis Thomas MD #### TREP, HIVCMB, PHEP #### [address] [phone] Mortgage Field Inspector: Perry Marte MD BUN/CRE Ratio 27 High 9-20 [facility] Comment on above: Performed By: #### H CG, CDP, CP #### [facility] [address] [place] [phone] Mortgage Field Inspector: Adonis Thomas MD #### TREP, HIVCMB, PHEP #### [address] [phone] Mortgage Field Inspector: Perry Marte MD Calcium [Mass/Vol] 9.0 mg/dL Normal 8.6-10.4 [facility] Comment on above: Performed By: #### H CG, CDP, CP #### [facility] [address] [place] [address] Mortgage Field Inspector: Adonis Thomas MD #### TREP, HIVCMB, PHEP #### [address] [phone] Mortgage Field Inspector: Perry Marte MD Chloride [Moles/Vol] 104 mmol/L Normal 98-107 [facility] Comment on above: Performed By: #### H CG, CDP, CP #### [facility] [address] [place] [address] Mortgage Field Inspector: Adonis Thomas MD #### TREP, HIVCMB, PHEP #### [address] [phone] Mortgage Field Inspector: Perry Marte MD CO2 [Moles/Vol] 29 mmol/L Normal 20-31 [facility] Comment on above: Performed By: #### H CG, CDP, CP #### [facility] [address] [place] [address] Mortgage Field Inspector: Adonis Thomas MD #### TREP, HIVCMB, PHEP #### [address] [phone] Mortgage Field Inspector: Perry Marte MD Creatinine [Mass/Vol] 0.7 mg/dL Normal 0.5-0.9 [facility] Comment on above: Performed By: #### H CG, CDP, CP #### [facility] [address] [place] [address] Dr. [place], [place] [phone] Mortgage Field Inspector: Adonis Thomas MD #### TREP, HIVCMB, PHEP #### [address] [phone] Mortgage Field Inspector: Perry Marte MD GFR/1.73 sq M.predicted among non-blacks MDRD (S/P/Bld) [Vol rate/Area] mL/min/{1.73_m2} Normal >60 [facility] Comment on above: Result Comment: These results [...] By: #### H CG, CDP, CP #### [address] [place] [address] Mortgage Field Inspector: Adonis Thomas MD #### TREP, HIVCMB, PHEP #### [address] [phone] Mortgage Field Inspector: Perry Marte MD Glucose [Mass/Vol] 92 mg/dL Normal 70-99 [facility] Comment on above: Performed By: #### H CG, CDP, CP #### [address] [place] [address] Mortgage Field Inspector: Adonis Thomas MD #### TREP, HIVCMB, PHEP #### [address] [phone] Mortgage Field Inspector: Perry Marte MD Potassium [Moles/Vol] 3.4 mmol/L Low 3.7-5.3 [facility] Comment on above: Performed By: #### H CG, CDP, CP #### [address] [place] [address] Mortgage Field Inspector: Adonis Thomas MD #### TREP, HIVCMB, PHEP #### [address] [phone] Mortgage Field Inspector: Perry Marte MD Protein [Mass/Vol] 6.9 g/dL Normal 6.4-8.3 [facility] Comment on above: Performed By: #### H CG, CDP, CP #### [facility] [address] [place] [address] [place] [address] Mortgage Field Inspector: Adonis Thomas MD #### TREP, HIVCMB, PHEP #### [address] [place], [place] [phone] Mortgage Field Inspector: Perry Marte MD Sodium [Moles/Vol] 141 mmol/L Normal 135-144 [facility] Comment on above: Performed By: #### H KASHIF, CDP, CP #### [facility] [address] [place] [address] Mortgage Field Inspector: Adonis Thomas MD #### TREP, HIVCMB, PHEP #### [facility] [address] [place], [place] [phone] Mortgage Field Inspector: Perry Marte MD Urea nitrogen [Mass/Vol] 19 mg/dL Normal 6-20 [facility] Comment on above: Performed By: #### H JOSÉ ROWLAND, CP #### [address] [place] [address] Mortgage Field Inspector: Adonis Thomas MD #### TREP, HIVCMB, PHEP #### [facility] [address] [place], [place] [phone] Mortgage Field Inspector: Perry Marte MD HCG Screen, Bloodon 05-04-20 24 HCG Screen, Blood Negative Normal NEG [facility] Comment on above: Result Comment: Spec imens with hCG levels near the threshold of the test (25 mIU/mL) may give a negative or indeterminate result. In such cases, another test should be performed with a new specimen in 48-72 hours. If early is suspected clinically in this setting, correlation with quantitative serum b-hCG level is suggested. [facility] has confirmed the use of plasma for this test. This has not been cleared or approved by the U.[place]. Food and Drug Administration. The FDA has determined that such clearance is not necessary. Performed By: #### H KASHIF, JOSÉ, CP #### [facility] [address] [place] [address] Mortgage Field Inspector: Adonis Thomas MD #### TREP, HIVCMB, PHEP #### [facility] [address] [place], [place] [phone] Mortgage Field Inspector: Perry Marte MD HIV Ag/Abon 05-04-2024 HIV Ag/Ab Non-Reactive Normal NR [facility] Comment on above: Result Comment: No l aboratory evidence of HIV infection. If acute HIV infection is suspected, consider testing for HIV-1 RNA. Performed By: #### H CG, CDP, CP #### [address] [place] [address] Mortgage Field Inspector: Adonis Thomas MD #### TREP, HIVCMB, PHEP #### [address] [phone] Mortgage Field Inspector: Perry Marte MD Hepatitis Acute [facility] 05-04 Hep A Ab,IgM Non-Reactive Normal [facility] Comment on above: Performed By: #### H KASHIF, CDP, CP #### [address] [place], [place] [phone] Mortgage Field Inspector: Adonis Thomas MD #### TREP, HIVCMB, PHEP #### [address] [phone] Mortgage Field Inspector: Perry Marte MD Hep B Core Ab,IgM Non-Reactive Normal [facility] Comment on above: Performed By: #### H KASHIF CDP, CP #### [address] [place], [place] [phone] Mortgage Field Inspector: Adonis Thomas MD #### TREP, HIVCMB, PHEP #### [address] [phone] Mortgage Field Inspector: Perry Marte MD Hep B Surf Ag Non-Reactive Normal [facility] Comment on above: Performed By: #### H KASHIF, CDP, CP #### [address] [place] [address] Mortgage Field Inspector: Adonis Thomas MD #### TREP, HIVCMB, PHEP #### [address] [phone] Mortgage Field Inspector: Perry Marte MD Hep C Ab Non-Reactive Normal NR [facility] Comment on above: [...] RNA by PCR. Performed By: #### H CG, CDP, CP #### [facility] [address] [place] [address] [place] [address] Mortgage Field Inspector: Adonis Thomas MD #### TREP, HIVCMB, PHEP #### [address] [phone] Mortgage Field Inspector: Perry Marte MD T.pallidum Ab Screenon 05-047 T.pallidum Ab Screen Non-Reactive Normal NR [facility] Comment on above: Result Comment: T. pallidum antibodies are not detected. There is no serological evidence of infection with T. pallidum (early primary syphilis cannot be excluded). Retest in 2-4 weeks if syphilis is clinically suspect. Performed By: #### S WCGP #### [address] [phone] Mortgage Field Inspector: Perry Marte MD UA w/Reflex Cultureon 2023 Bilirubin, SemiQt,Ur Negative Normal NEG [facility] Comment on above: Performed By: #### U MICAO, UAX #### [facility] [address] [place] [address] [place] [address] Mortgage Field Inspector: Adonis Thomas MD Blood, Urine 2+ Abnormal NEG [facility] Comment on above: Performed By: #### U MICAO, UAX #### [facility] [address] [place] [address] [place] [address] Mortgage Field Inspector: Adonis Thomas MD Clarity (U) Clear Normal CLEAR [facility] Comment on above: Performed By: #### U MICAO, UAX #### [facility] [address] [place] [address] [place]. [place], [place] [phone] Mortgage Field Inspector: Adonis Thomas MD Color (U) Yellow Normal YEL [facility] Comment on above: Performed By: #### U MICAO, UAX #### [facility] [address] [place], [place] [phone] Mortgage Field Inspector: Adonis Thomas MD Glucose Ql (U) Negative Normal NEG [facility] Comment on above: Performed By: #### U MICAO, UAX #### [facility] [address] [place] [address] Dr. [place], [place] [phone] Mortgage Field Inspector: Adonis Thomas MD Ketones Ql (U) Negative Normal NEG [facility] Comment on above: Performed By: #### U MICAO, UAX #### [facility] [address] [place] [address] Dr. [place], [place] [phone] Mortgage Field Inspector: Adonis Thomas MD Leukocyte esterase Test strip Ql (U) Negative Normal NEG [facility] Comment on above: Performed By: #### U MICAO, UAX #### [facility] [address] [place] [address] Dr. [place], [place] [phone] Mortgage Field Inspector: Adonis Thomas MD Nitrite,Ur Negative Normal NEG [facility] Comment on above: Performed By: #### U MICAO, UAX #### [facility] [address] [place], [place] [phone] Mortgage Field Inspector: Adonis Thomas MD PH,Ur 6.0 Normal 5.0-9.0 [facility] Comment on above: Performed By: #### U MICAO, UAX #### [facility] [address] [place] [address] Dr. [place], [place] [phone] Mortgage Field Inspector: Adoins Thomas MD Protein Ql (U) Negative Normal NEG [facility] Comment on above: Performed By: #### U MICAO, UAX #### [facility] [address] [place], [place] [phone] Mortgage Field Inspector: Adonis Thomas MD Spec. [place],Ur >1.030 High 1.010-1.020 [facility] Comment on above: Performed By: #### U MICAO, UAX #### [facility] [address] [place], [place] [phone] Mortgage Field Inspector: Adonis Thomas MD Urobilinogen,Ur Normal Normal 0.0-1.0 [facility] Comment on above: Performed By: #### U MICAO, UAX #### [facility] [address] [place] [address] Dr. [place], [place] [phone] Mortgage Field Inspector: Adonis Thomas MD Urinalysis,Microon 4 Bacteria 1+ Abnormal NONE [facility] Comment on above: Performed By: #### U MICAO, UAX #### [facility] [address] [place] [address] Dr[place], [place] [phone] Mortgage Field Inspector: Adonis Thomas MD Epithelial cells LM Ql (Urine sed) 10 TO 20 Normal 0-25 [facility] [facility] Comment on above: Performed By: #### U MICAO, UAX #### [facility] [address] [place] [address] [place]. [place], [place] [id number] Mortgage Field Inspector: Adonis Thomas MD Urine RBC's 2 TO 5 Normal 0-2 [facility] Comment on above: Performed By: #### U MICAO, UAX #### [facility] [address] [place] [address] Mortgage Field Inspector: Adonis Thomas MD Urine WBC's 0 TO 2 Normal 0-5 [facility] Comment on above: Performed By: #### U MICAO, UAX #### [facility] [address] [place] [address] Mortgage Field Inspector: Adonis Thomas MD C. trachomatis and N. gonorr hoeae DNA JOSE R+probe Nom (Unsp spec)on 02-21-2024 C. trachomatis rRNA JOSE R+probe Ql (Unsp spec) Negative Normal Negative [facility] Comment on above: Order Comment: The [...] By: #### 3 6903-3 #### RONAL Gerber ([id number]) [facility] ([facility]) [address] [place] [address] N. gonorrhoeae DNA Probe+sig amp Ql (Unsp spec) Negative Normal Negative [facility] Comment on above: Order Comment: The [...] By: #### 3 6903-3 #### RONAL Gerber ([id number]) [facility] ([facility]) [address] [place], [place] [id number] Trichomonas vaginalis rRNAon 02-21-2024 T. vaginalis rRNA JOSE R+probe Ql (Unsp spec) Positive Abnormal Negative, Invalid, TRICH neg [facility] Comment on above: Order Comment: The A PTIMA Trichomonas vaginalis assay is FDA-approved for testing on female endocervical swabs, vaginal swabs, and ThinPrep liquid pap samples. Performance characteristics for Trichomonas vaginalis on specific [id number] sample types (female and male urine and male urethral swabs) have been validated by [facility]. This laboratory is certified by CLIA to perform high complexity testing. Samples from all other sites are not validated for this method. Result Comment: Perf ormance characteristics for Trichomonas Vaginalis testing on urine samples has been validated by [facility]. Testing on this sample type is not FDA-approved, but such approval is not necessary. This laboratory is certified by CLIA to perform high complexity testing. Performed By: #### 4 6154-1 #### RONAL Gerber ([id number]) [facility] ([facility]) [id number] [place] [address] Alcoholon 05-29-2023 Blood Alcohol Concentration Not indicated Normal [facility] Comment on above: Performed By: #### A LCOH #### [facility] [address] [place] [address] Ethanol [Mass/Vol] mg/dL Normal [facility] Comment on above: Performed By: #### A LCOH #### [facility] [address] [place] [address] Comprehensive Metabolic Pane shad 05-29-2023 Albumin [Mass/Vol] 5.2 g/dL Critically high 3.5-4.6 [facility] Comment on above: Performed By: #### C MP #### [facility] [address] [place] [address] ALP [Catalytic activity/Vol] 64 U/L Normal 40-130 [facility] Comment on above: Performed By: #### C MP #### [facility] [address] [place] [address] ALT [Catalytic activity/Vol] 17 U/L Normal 0-33 [facility] Comment on above: Performed By: #### C MP #### [facility] [address] [place] [address] Anion gap [Moles/Vol] 19 mmol/L Critically high 9-15 [facility] Comment on above: Performed By: #### C MP #### [facility] [address] [place] [address] AST [Catalytic activity/Vol] 22 U/L Normal 0-35 [facility] Comment on above: Performed By: #### C MP #### [facility] [address] [place] [address] Bilirubin [Mass/Vol] 0.8 mg/dL Critically high 0.2-0.7 [facility] Comment on above: Performed By: #### C MP #### [facility] [address] [place] [address] Calcium [Mass/Vol] 10.2 mg/dL Critically high 8.5-9.9 [facility] Comment on above: Performed By: #### C MP #### [facility] [address] [place] [address] Chloride [Moles/Vol] 99 mmol/L Normal 95-107 [facility] Comment on above: Performed By: #### C MP #### [facility] [address] [place] [address] CO2 [Moles/Vol] 22 mmol/L Normal 20-31 [facility] Comment on above: Performed By: #### C MP #### [facility] [address] [place] [address] Creatinine [Mass/Vol] 0.60 mg/dL Normal 0.50-0.90 [facility] Comment on above: Performed By: #### C MP #### [facility] [address] [place] [address] GFR >60.0 Normal >60 [facility] Comment on above: Result Comment: Pedi atric [...] secretion. Performed By: #### C MP #### [facility] [address] [place] [address] Globulin (S) [Mass/Vol] 2.6 g/dL Normal 2.3-3.5 [facility] Comment on above: Performed By: #### C MP #### [facility] [address] [place] [address] Glucose [Mass/Vol] 102 mg/dL Critically high 70-99 [facility] Comment on above: Performed By: #### C MP #### [facility] [address] [place] [address] Potassium [Moles/Vol] 3.9 mmol/L Normal 3.4-4.9 [facility] Comment on above: Performed By: #### C MP #### [facility] [address] [place] [address] Protein [Mass/Vol] 7.8 g/dL Normal 6.3-8.0 [facility] Comment on above: Performed By: #### C MP #### [facility] [address] [place] [address] Sodium [Moles/Vol] 140 mmol/L Normal 135-144 [facility] Comment on above: Performed By: #### C MP #### [facility] [address] [place] [address] Urea nitrogen [Mass/Vol] 9 mg/dL Normal 6-20 [facility] Comment on above: Performed By: #### C MP #### [facility] [address] [place] [address] UR Drugs of Abuse Panelon Drug Screen Comment see below Normal [facility] Comment on above: Result Comment: This method is a screening test to detect only these drug classes as part of a medical workup. Confirmatory testing by another method should be ordered if clinically indicated. Performed By: #### U DRGS #### [facility] [address] [place] [address] UR Amphetamines Screen Negative Normal Negative < [facility] Comment on above: Performed By: #### U DRGS #### [facility] [address] [place] [address] UR Barbiturates Screen Negative Normal Negative < [facility] Comment on above: Performed By: #### U DRGS #### [facility] [address] [place] [address] UR Benzo Screen Negative Normal Negative < [facility] Comment on above: Performed By: #### U DRGS #### [facility] [address] [place] [address] UR Cannabinoids Screen Negative Normal Negative < [facility] Comment on above: Performed By: #### U DRGS #### [facility] [address] [place] [address] UR Cocaine Screen Positive Abnormal Negative < [facility] Comment on above: Performed By: #### U DRGS #### [facility] [address] [place] [address] UR Fentanyl Screen Negative Normal Negative < [facility] Comment on above: Performed By: #### U DRGS #### [facility] [address] [place] [address] UR Methadone Screen Negative Normal Negative < [facility] Comment on above: Performed By: #### U DRGS #### [facility] [address] [place] [address] UR Opiates Screen Negative Normal Negative < [facility] Comment on above: Performed By: #### U DRGS #### [facility] [address] [place] [address] UR Oxycodone Screen Negative Normal Negative < [facility] Comment on above: Performed By: #### U DRGS #### [facility] [address] [place] [address] UR PCP Screen Negative Normal Negative < [facility] Comment on above: Performed By: #### U DRGS #### [facility] [address] [place] [address] UR Propoxyphene Screen Negative Normal Negative < [facility] Comment on above: Performed By: #### U DRGS #### [facility] [address] [place] [address] Urinalysis, reflex to micros copicon 05-29-2023 Bilirubin Ql (U) Negative Normal Negative [facility] Comment on above: Performed By: #### U A #### [facility] [address] [place] [address] Clarity (U) Clear Normal Clear [facility] Comment on above: Performed By: #### U A #### [facility] [address] [place] [address] Color (U) Yellow Normal Straw/Deaf Smith [facility] Comment on above: Performed By: #### U A #### [facility] [address] [place] [address] Glucose Ql (U) Negative Normal Negative [facility] Comment on above: Performed By: #### U A #### [facility] [address] [place] [address] Hemoglobin Ql (U) Negative Normal Negative [facility] Comment on above: Performed By: #### U A #### [facility] [address] [place] [address] Ketones Ql (U) 15 mg/dL Abnormal Negative [facility] Comment on above: Performed By: #### U A #### [facility] [address] [place] [address] Leukocyte esterase Test strip Ql (U) TRACE Abnormal Negative [facility] Comment on above: Performed By: #### U A #### [facility] [address] [place] [address] Nitrite Ql (U) Negative Normal Negative [facility] Comment on above: Performed By: #### U A #### [facility] [address] [place] [address] pH (U) 7.5 [pH] Normal 5.0-9.0 [facility] Comment on above: Performed By: #### U A #### [facility] [address] [place] [address] Protein Ql (U) Negative Normal Negative [facility] Comment on above: Performed By: #### U A #### [facility] [address] [place] [address] Specific gravity (U) [Rel density] 1.008 Normal 1.005-1.03 [facility] Comment on above: Performed By: #### U A #### [facility] [address] [place] [address] Urobilinogen Qn (U) 0.2 {Vielka'U}/dL Normal < 2.0 [facility] Comment on above: Performed By: #### U A #### [facility] [address] [place] [address] Urine Microscopicon 05-29-20 23 Urine Bacteria MANY Abnormal Negative [facility] Comment on above: Performed By: #### A LCOH #### [facility] [address] [place] [address] Urine Epithelial Cells Auto 0-2 Normal 0-5 [facility] Comment on above: Performed By: #### A LCOH #### [facility] [address] [place] [address] Urine Hyaline Casts Auto 3-5 Normal 0-5 [facility] Comment on above: Performed By: #### A LCOH #### [facility] [address] [place] [address] Urine RBC Auto 0-2 Normal 0-5 [facility] Comment on above: Performed By: #### A LCOH #### [facility] [address] [place] [address] Urine WBC Auto 10-20 Abnormal 0-5 [facility] Comment on above: Performed By: #### A LCOH #### [facility] [address] [place] [address] 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 Vitals Vital Signs Recorded: 09Jan2023 04:18PM [id number], LUE, Sitting Vhyjjkyps33, LUE, Sitting Height5 ft 6 in Jaflye392 lb 6 oz BMI Ngabbqjmgc58.59 kg/m2 BSA Calculated1.78 Tobacco Useb) No PHQ-2 #1. Over the last 2 weeks have you felt down, depressed or hopeless? (If yes, answer PHQ-9 below)No PHQ-2 #2. Over the last 2 weeks have you felt little interest or pleasure in doing things? (If yes, answer PHQ-9 below)No Falls Screening (Age 18+)a) No falls within the last year [id number] Signatures Electronically signed by : Cally Meyer MD; Jan 10 2023 9:46AM EST (Author) Normal [employer] Tobacco Screening.on 023 Adult depression screening assessment No [facility] Work Phone: Fall risk assessment a) No falls within the last year [facility] Work Phone: Last menstrual period start date 22Dec2022 [facility] Work Phone: Tobacco use status HS b) No [facility] Work Phone: Established Visit (Orthopaed ic Surgery)on [...] grammatical areas may persist related to the [employer] software Chacorta Erwin MD Office: . Active [...] use (V49.89) (more content not included)... Normal [employer] Provider Note - ED v3on 11-04 Provider [...] SIGNS: T PRBP SpO2O2(LPM) %FiO2 Method 21-Nov-2022 01:56:[id number]/63 100 room air, no respiratory support MDM [...] today. N (more content not included)... Normal [facility] Triage - EDon 11-21-2022 Triage - ED Quick Triage: Are You no Are You Currently Breastfeedingno Chart Review: PRIMARY ASSESSMENT JULIETTE HERNNÁDEZ's primary assessment is Within Defined Limits. The [...] Verbal Response: (V5) oriented Ildefonso Score: 15 Cough lasting greater than 3 [...] History Last Updated: 21-Nov-2022 02:18 by Kashif Hammond) [facility] [address] Provider Note - ED v3on 11-04 Provider [...] SIGNS: T PRBP SpO2O2(LPM) %FiO2 Method 20-Nov-2022 13:51:[id number]/62 97 room air, no respiratory support MDM [...] ill patient: no Electronic Signatures: Elinor Sagastume (HYDRAULIC MECHANIC-ECHO VASCULAR TECHNOLOGIST) (Signed 30-Nov-2022 06:11) Authored: ED Notes, HPI, PMH, Results/Vital Signs, MDM/ED Course, Clinical Impression, Attestation, Chart Review, Scores Last Updated: 30-Nov-2022 06:11 by Elinor Sagastume (HYDRAULIC MECHANIC-ECHO VASCULAR TECHNOLOGIST) References: 1. 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 Requested: no county manager was requested MDRO: History of MDRO: no [...] BMI (kg/m2): 24.208 Calculated BSA (m2) 1.78 Ildefonso Coma Scale: [...] Medical History Reviewedyes Electronic Signatures: Tara Pickett (NIHARIKA) (Signed 20-Nov-2022 13:54) Entered: Risk Screens, Pain, Arrival, ABCD, Travel History, Chart Review, Scores, Past Medical History Authored: Quick Triage, Risk Screens, Pain, Arrival, ABCD, Travel History, Chart Review, Scores, Past Medical History Last Updated: 20-Nov-2022 13:54 by Tara Pickett (NIHARIKA) Normal [facility] Alcoholon 10-08-2022 Blood Alcohol Concentration Not indicated Normal [facility] Comment on above: Performed By: #### A LCOH #### [facility] [address] [place] [address] Ethanol [Mass/Vol] mg/dL Normal [facility] Comment on above: Performed By: #### A LCOH #### [facility] [address] [place] [address] CBC With Platelet and Differ entialon 10-08-2022 Basophils (Bld) [#/Vol] 0.0 10*3/uL Normal 0.0-0.2 [facility] Comment on above: Performed By: #### C BCWD #### [facility] [address] [place] [address] Basophils/100 WBC (Bld) 0.5 % Normal [facility] Comment on above: Performed By: #### C BCWD #### [facility] [address] [place] [address] Eosinophils (Bld) [#/Vol] 0.0 10*3/uL Normal 0.0-0.7 [facility] Comment on above: Performed By: #### C BCWD #### [facility] [address] [place] [address] Eosinophils/100 WBC (Bld) 0.5 % Normal [facility] Comment on above: Performed By: #### C BCWD #### [facility] [address] [place] [address] Erythrocyte distribution width (RBC) [Ratio] 13.8 % Normal 11.5-14.5 [facility] Comment on above: Performed By: #### C BCWD #### [facility] [address] [place] [address] Hematocrit (Bld) [Volume fraction] 39.4 % Normal 37.0-47.0 [facility] Comment on above: Performed By: #### C BCWD #### [facility] [address] [place] [address] Hemoglobin (Bld) [Mass/Vol] 13.2 g/dL Normal 12.0-16.0 [facility] Comment on above: Performed By: #### C BCWD #### [facility] [address] [place] [address] Lymphocytes (Bld) [#/Vol] 1.4 10*3/uL Normal 1.0-4.8 [facility] Comment on above: Performed By: #### C BCWD #### [facility] [address] [place] [address] Lymphocytes/100 WBC (Bld) 19.2 % Normal [facility] Comment on above: Performed By: #### C BCWD #### [facility] [address] [place] [address] MCH (RBC) [Entitic mass] 29.2 pg Normal 27.0-31.3 [facility] Comment on above: Performed By: #### C BCWD #### [facility] [address] [place] [address] MCHC 33.6 % Normal 33.0-37.0 [facility] Comment on above: Performed By: #### C BCWD #### [facility] [address] [place] [address] MCV (RBC) [Entitic vol] 87.1 fL Normal 79.4-94.8 [facility] Comment on above: Performed By: #### C BCWD #### [facility] [address] [place] [address] Monocytes (Bld) [#/Vol] 0.8 10*3/uL Normal 0.2-0.8 [facility] Comment on above: Performed By: #### C BCWD #### [facility] [address] [place] [address] Monocytes/100 WBC (Bld) 10.8 % Normal [facility] Comment on above: Performed By: #### C BCWD #### [facility] [address] [place] [address] Neutrophils (Bld) [#/Vol] 5.0 10*3/uL Normal 1.4-6.5 [facility] Comment on above: Performed By: #### C BCWD #### [facility] [address] [place] [address] Neutrophils/100 WBC (Bld) 69.0 % Normal [facility] Comment on above: Performed By: #### C BCWD #### [facility] [address] [place] [address] Platelets (Bld) [#/Vol] 291 10*3/uL Normal 130-400 [facility] Comment on above: Performed By: #### C BCWD #### [facility] [address] [place] [address] RBC (Bld) [#/Vol] 4.53 10*6/uL Normal 4.20-5.40 [facility] Comment on above: Performed By: #### C BCWD #### [facility] [address] [place] [address] WBC (Bld) [#/Vol] 7.2 10*3/uL Normal 4.8-10.8 [facility] Comment on above: Performed By: #### C BCWD #### [facility] [address] [place] [address] Comprehensive Metabolic Pane shad 10-08-2022 Albumin [Mass/Vol] 5.0 g/dL Critically high 3.5-4.6 [facility] Comment on above: Order Comment: CALL [facility] tel. [phone], Chemistry, POTASSIUM results called to and read back by IRA PECK, 10/08/2022 10:40, by JOSÉ MIGUEL Performed By: #### C MP #### [facility] [address] [place] [address] ALP [Catalytic activity/Vol] 72 U/L Normal 40-130 [facility] Comment on above: Order Comment: CALL [facility] tel. [phone], Chemistry, POTASSIUM results called to and read back by IRA PECK, 10/08/2022 10:40, by JOSÉ MIGUEL Performed By: #### C MP #### [facility] [address] [place] [address] ALT [Catalytic activity/Vol] 18 U/L Normal 0-33 [facility] Comment on above: Order Comment: CALL [facility] tel. [phone], Chemistry, POTASSIUM results called to and read back by IRA PECK, 10/08/2022 10:40, by JOSÉ MIGUEL Performed By: #### C MP #### [facility] [address] [place] [address] Anion gap [Moles/Vol] 17 mmol/L Critically high 9-15 [facility] Comment on above: Order Comment: CALL [facility] tel. [phone], Chemistry, POTASSIUM results called to and read back by IRA PECK, 10/08/2022 10:40, by JOSÉ MIGUEL Performed By: #### C MP #### [facility] [address] [place] [address] AST [Catalytic activity/Vol] 20 U/L Normal 0-35 [facility] Comment on above: Order Comment: CALL [facility] tel. [phone], Chemistry, POTASSIUM results called to and read back by IRA PECK, 10/08/2022 10:40, by JOSÉ MIGUEL Performed By: #### C MP #### [facility] [address] [place] [address] Bilirubin [Mass/Vol] 2.0 mg/dL Critically high 0.2-0.7 [facility] Comment on above: Order Comment: CALL [facility] tel. [phone], Chemistry, POTASSIUM results called to and read back by IRA PECK, 10/08/2022 10:40, by JOSÉ MIGUEL Performed By: #### C MP #### [facility] [address] [place] [address] Calcium [Mass/Vol] 10.1 mg/dL Critically high 8.5-9.9 [facility] Comment on above: Order Comment: CALL [facility] tel. [phone], Chemistry, POTASSIUM results called to and read back by IRA PECK, 10/08/2022 10:40, by JOSÉ MIGUEL Performed By: #### C MP #### [facility] [address] [place] [address] Chloride [Moles/Vol] 101 mmol/L Normal 95-107 [facility] Comment on above: Order Comment: CALL [facility] tel. [phone], Chemistry, POTASSIUM results called to and read back by IRA PECK, 10/08/2022 10:40, by JOSÉ MIGUEL Performed By: #### C MP #### [facility] [address] [place] [address] CO2 [Moles/Vol] 22 mmol/L Normal 20-31 [facility] Comment on above: Order Comment: CALL [facility] tel. [phone], Chemistry, POTASSIUM results called to and read back by IRA PECK, 10/08/2022 10:40, by JOSÉ MIGUEL Performed By: #### C MP #### [facility] [address] [place] [address] Creatinine [Mass/Vol] 0.63 mg/dL Normal 0.50-0.90 [facility] Comment on above: Order Comment: CALL [facility] tel. [phone], Chemistry, POTASSIUM results called to and read back by IRA PECK, 10/08/2022 10:40, by JOSÉ MIGUEL Performed By: #### C MP #### [facility] [address] [place] [address] GFR >60.0 Normal >60 [facility] Comment on above: Order Comment: CALL [facility] tel. [phone], Chemistry, POTASSIUM results called to and read [...] secretion. Performed By: #### C MP #### [facility] [address] [place] [address] Globulin (S) [Mass/Vol] 3.0 g/dL Normal 2.3-3.5 [facility] Comment on above: Order Comment: CALL [facility] tel. [phone], Chemistry, POTASSIUM results called to and read back by IRA PECK, 10/08/2022 10:40, by JOSÉ MIGUEL Performed By: #### C MP #### [facility] [address] [place] [address] Glucose [Mass/Vol] 111 mg/dL Critically high 70-99 [facility] Comment on above: Order Comment: CALL [facility] tel. [phone], Chemistry, POTASSIUM results called to and read back by IRA PECK, 10/08/2022 10:40, by VLDOUGLAS Performed By: #### C MP #### [facility] [address] [place] [address] Potassium [Moles/Vol] 3.0 mmol/L Critically low 3.4-4.9 [facility] Comment on above: Order Comment: CALL [facility] tel. [phone], Chemistry, POTASSIUM results called to and read back by IRA PECK, 10/08/2022 10:40, by JOSÉ MIGUEL Performed By: #### C MP #### [facility] [address] [place] [address] Protein [Mass/Vol] 8.0 g/dL Normal 6.3-8.0 [facility] Comment on above: Order Comment: CALL [facility] tel. [phone], Chemistry, POTASSIUM results called to and read back by IRA PECK, 10/08/2022 10:40, by JOSÉ MIGUEL Performed By: #### C MP #### [facility] [address] [place] [address] Sodium [Moles/Vol] 140 mmol/L Normal 135-144 [facility] Comment on above: Order Comment: CALL [facility] tel. [phone], Chemistry, POTASSIUM results called to and read back by IRA PECK, 10/08/2022 10:40, by JOSÉ MIGUEL Performed By: #### C MP #### [facility] [address] [place] [address] Urea nitrogen [Mass/Vol] 20 mg/dL Normal 6-20 [facility] Comment on above: Order Comment: CALL [facility] tel. [phone], Chemistry, POTASSIUM results called to and read back by IRA PECK, 10/08/2022 10:40, by JOSÉ MIGUEL Performed By: #### C MP #### [facility] [address] [place] [address] UR Drugs of Abuse Panelon Drug Screen Comment see below Normal [facility] Comment on above: Result Comment: This method is a screening test to detect only these drug classes as part of a medical workup. Confirmatory testing by another method should be ordered if clinically indicated. Performed By: #### U DRGS #### [facility] [address] [place] [address] UR Amphetamines Screen Positive Abnormal Negative < [facility] Comment on above: Performed By: #### U DRGS #### [facility] [address] [place] [address] UR Barbiturates Screen Negative Normal Negative < [facility] Comment on above: Performed By: #### U DRGS #### [facility] [address] [place] [address] UR Benzo Screen Negative Normal Negative < [facility] Comment on above: Performed By: #### U DRGS #### [facility] [address] [place] [address] UR Cannabinoids Screen Positive Abnormal Negative < [facility] Comment on above: Performed By: #### U DRGS #### [facility] [address] [place] [address] UR Cocaine Screen Positive Abnormal Negative < [facility] Comment on above: Performed By: #### U DRGS #### [facility] [address] [place] [address] UR Fentanyl Screen Negative Normal Negative < [facility] Comment on above: Performed By: #### U DRGS #### [facility] [address] [place] [address] UR Methadone Screen Negative Normal Negative < [facility] Comment on above: Performed By: #### U DRGS #### [facility] [address] [place] [address] UR Opiates Screen Negative Normal Negative < [facility] Comment on above: Performed By: #### U DRGS #### [facility] [address] [place] [address] UR Oxycodone Screen Negative Normal Negative < [facility] Comment on above: Performed By: #### U DRGS #### [facility] [address] [place] [address] UR PCP Screen Negative Normal Negative < [facility] Comment on above: Performed By: #### U DRGS #### [facility] [address] [place] [address] UR Propoxyphene Screen Negative Normal Negative < [facility] Comment on above: Performed By: #### U DRGS #### [facility] [address] [place] [address] Urinalysis, reflex to micros copicon 10-08-2022 Bilirubin Ql (U) Negative Normal Negative [facility] Comment on above: Performed By: #### U A #### [facility] [address] [place] [address] Clarity (U) CLOUDY Abnormal Clear [facility] Comment on above: Performed By: #### U A #### [facility] [address] [place] [address] Color (U) ORANGE Abnormal Straw/Deaf Smith [facility] Comment on above: Performed By: #### U A #### [facility] [address] [place] [address] Glucose Ql (U) Negative Normal Negative [facility] Comment on above: Performed By: #### U A #### [facility] [address] [place] [address] Hemoglobin Ql (U) TRACE Abnormal Negative [facility] Comment on above: Performed By: #### U A #### [facility] [address] [place] [address] Ketones Ql (U) >=80 Abnormal Negative [facility] Comment on above: Performed By: #### U A #### [facility] [address] [place] [address] Leukocyte esterase Test strip Ql (U) MODERATE Abnormal Negative [facility] Comment on above: Performed By: #### U A #### [facility] [address] [place] [address] Nitrite Ql (U) Negative Normal Negative [facility] Comment on above: Performed By: #### U A #### [facility] [address] [place] [address] pH (U) 7.5 [pH] Normal 5.0-9.0 [facility] Comment on above: Performed By: #### U A #### [facility] [address] [place] [address] Protein Ql (U) 30 mg/dL Abnormal Negative [facility] Comment on above: Performed By: #### U A #### [facility] [address] [place] [address] Specific gravity (U) [Rel density] 1.030 Normal 1.005-1.03 [facility] Comment on above: Performed By: #### U A #### [facility] [address] [place] [address] Urobilinogen Qn (U) 1.0 {Vielka'U}/dL Normal < 2.0 [facility] Comment on above: Performed By: #### U A #### [facility] [address] [place] [address] Urine Microscopicon 10-08-20 22 Epithelial cells LM Ql (Urine sed) 5-10 Normal [facility] Comment on above: Performed By: #### U LINDY #### [facility] [address] [place] [address] Urine RBC 3-5 Abnormal 0-2 [facility] Comment on above: Performed By: #### U LINDY #### [facility] [address] [place] [address] Urine Bacteria RARE Abnormal Negative [facility] Comment on above: Performed By: #### U LINDY #### [facility] [address] [place] [address] Urine Epithelial Cells Auto 20-50 Normal 0-5 [facility] Comment on above: Performed By: #### U LINDY #### [facility] [address] [place] [address] Urine Hyaline Casts Auto 10-20 Normal 0-5 [facility] Comment on above: Performed By: #### U LINDY #### [facility] [address] [place] [address] Urine WBC Auto 10-20 Abnormal 0-5 [facility] Comment on above: Performed By: #### U LINDY #### [facility] [address] [place] [address] DRUG SCREEN,URINEon 09-09-20 22 AMPHETAMINE SCREEN,U Canceled Normal [facility] Comment on above: Order Comment: TEST DRUG SCREEN,URINE WAS CANCELLED, 09/09/2022 01:17 No specimen received/Pt discharged. Result Comment: CUTO FF LEVEL: 500 NG/ML Cross-reactivity has been reported with high concentrations of the following drugs: buproprion, chloroquine, chlorpromazine, ephedrine, mephentermine, fenfluramine, phentermine, phenylpropanolamine, pseudoephedrine, and propranolol. Performed By: #### D RUG3 #### [address] [id number] BARBITURATES SCREEN,U Canceled Normal [facility] Comment on above: Order Comment: TEST DRUG SCREEN,URINE WAS CANCELLED, 09/09/2022 01:17 No specimen received/Pt discharged. Result Comment: CUTO FF LEVEL: 200 NG/ML Performed By: #### D RUG3 #### [address] [id number] BENZODIAZEPINES SCREEN,U Canceled Normal [facility] Comment on above: Order Comment: TEST DRUG SCREEN,URINE WAS CANCELLED, 09/09/2022 01:17 No specimen received/Pt discharged. Result Comment: CUTO FF LEVEL: 200 NG/ML Performed By: #### D RUG3 #### [address] [id number] CANNABINOIDS SCREEN,U Canceled Normal [facility] Comment on above: Order Comment: TEST DRUG SCREEN,URINE WAS CANCELLED, 09/09/2022 01:17 No specimen received/Pt discharged. Result Comment: CUTO FF LEVEL: 50 NG/ML Performed By: #### D RUG3 #### [address] [id number] COCAINE METABOLITE SCREEN,U Canceled Normal [facility] Comment on above: Order Comment: TEST DRUG SCREEN,URINE WAS CANCELLED, 09/09/2022 01:17 No specimen received/Pt discharged. Result Comment: CUTO FF LEVEL: 150 NG/ML Performed By: #### D RUG3 #### [address] [id number] DRUG SCREEN COMMENT Canceled Normal [facility] Comment on above: Order Comment: TEST DRUG SCREEN,URINE WAS CANCELLED, 09/09/2022 01:17 No specimen received/Pt discharged. Result Comment: Drug screen results are presumptive and should not be used to assess compliance with prescribed medication. Contact the performing [facility] laboratory to add-on definitive confirmatory testing [...] directors. Performed By: #### D RUG3 #### [address] [id number] FENTANYL SCREEN,URINE Canceled Normal [facility] Comment on above: Order Comment: TEST DRUG SCREEN,URINE WAS CANCELLED, 09/09/2022 01:17 No specimen received/Pt discharged. Result Comment: CUTO FF LEVEL: 5 NG/ML Performed By: #### D RUG3 #### [address] [id number] METHADONE SCREEN,U Canceled Normal [facility] Comment on above: Order Comment: TEST DRUG SCREEN,URINE WAS CANCELLED, 09/09/2022 01:17 No specimen received/Pt discharged. Result Comment: CUTO FF LEVEL: 150 NG/ML The metabolite C-zmaqb-searkmnokmpvar (LAAM) is not detected by this method in concentrations that would be found in the urine of patients on LAAM therapy. Performed By: #### D RUG3 #### [address] [id number] OPIATES SCREEN,U Canceled Normal [facility] Comment on above: Order Comment: TEST DRUG SCREEN,URINE WAS CANCELLED, 09/09/2022 01:17 No specimen received/Pt discharged. Result Comment: CUTO FF LEVEL: 300 NG/ML The opiate screen does not detect fentanyl, meperidine, or tramadol. Oxycodone is not consistently detected (refer to Oxycodone Screen, Urine result). Performed By: #### D RUG3 #### [address] [id number] OXYCODONE SCREEN,U Canceled Normal [facility] Comment on above: Order Comment: TEST DRUG SCREEN,URINE WAS CANCELLED, 09/09/2022 01:17 No specimen received/Pt discharged. Result Comment: CUTO FF LEVEL: 100 NG/ML This test will accurately detect both oxycodone and oxymorphone. Performed By: #### D RUG3 #### [address] [id number] PCP SCREEN,U Canceled Normal [facility] Comment on above: Order Comment: TEST DRUG SCREEN,URINE WAS CANCELLED, 09/09/2022 01:17 No specimen received/Pt discharged. Result Comment: CUTO FF LEVEL: 25 NG/ML Cross-reactivity has been reported with dextromethorphan. Performed By: #### D RUG3 #### [address] [id number] URINALYSISon 09-09-2022 Appearance (U) Canceled Normal [facility] Comment on above: Order Comment: TEST URINALYSIS WAS CANCELLED, 09/09/2022 01:17 No specimen received/Pt discharged. Performed By: #### U A #### [address] [id number] ASCORBIC ACID Canceled Normal [facility] Comment [...] hours. Performed By: #### U A #### [address] [id number] Bilirubin Ql (U) Canceled Normal [facility] Comment on above: Order Comment: TEST URINALYSIS WAS CANCELLED, 09/09/2022 01:17 No specimen received/Pt discharged. Performed By: #### U A #### [address] [id number] Color (U) Canceled Normal [facility] Comment on above: Order Comment: TEST URINALYSIS WAS CANCELLED, 09/09/2022 01:17 No specimen received/Pt discharged. Performed By: #### U A #### [address] [id number] Glucose Ql (U) Canceled Normal [facility] Comment on above: Order Comment: TEST URINALYSIS WAS CANCELLED, 09/09/2022 01:17 No specimen received/Pt discharged. Performed By: #### U A #### [address] [id number] Hemoglobin Ql (U) Canceled Normal [facility] Comment on above: Order Comment: TEST URINALYSIS WAS CANCELLED, 09/09/2022 01:17 No specimen received/Pt discharged. Performed By: #### U A #### [address] [id number] Ketones Ql (U) Canceled Normal [facility] Comment on above: Order Comment: TEST URINALYSIS WAS CANCELLED, 09/09/2022 01:17 No specimen received/Pt discharged. Performed By: #### U A #### [address] [id number] Leukocyte esterase Test strip Ql (U) Canceled Normal [facility] Comment on above: Order Comment: TEST URINALYSIS WAS CANCELLED, 09/09/2022 01:17 No specimen received/Pt discharged. Performed By: #### U A #### [address] [id number] Nitrite Ql (U) Canceled Normal [facility] Comment on above: Order Comment: TEST URINALYSIS WAS CANCELLED, 09/09/2022 01:17 No specimen received/Pt discharged. Performed By: #### U A #### [address] [id number] pH Canceled Normal [facility] Comment on above: Order Comment: TEST URINALYSIS WAS CANCELLED, 09/09/2022 01:17 No specimen received/Pt discharged. Performed By: #### U A #### [address] [id number] Protein Ql (U) Canceled Normal [facility] Comment on above: Order Comment: TEST URINALYSIS WAS CANCELLED, 09/09/2022 01:17 No specimen received/Pt discharged. Performed By: #### U A #### [address] [id number] Specific gravity (U) [Rel density] Canceled Normal [facility] Comment on above: Order Comment: TEST URINALYSIS WAS CANCELLED, 09/09/2022 01:17 No specimen received/Pt discharged. Performed By: #### U A #### [address] [id number] UROBILINOGEN Canceled Normal [facility] Comment on above: Order Comment: TEST URINALYSIS WAS CANCELLED, 09/09/2022 01:17 No specimen received/Pt discharged. Performed By: #### U A #### [address] [id number] CBC AND DIFFERENTIALon 09-08 % AUTOMATED IMMATURE GRAN 0.3 % Normal 0.0 - 0.9 [facility] Comment on above: Result Comment: Hazel ture Granulocyte Count (IG) includes promyelocytes, myelocytes and metamyelocytes but does not include bands. Percent differential counts (%) should be interpreted in the context of the absolute cell counts (cells/L). Performed By: #### C BCDF #### [address] [id number] Basophils (Bld) [#/Vol] 0.05 10*3/uL Normal 0.00 - 0.10 [facility] Comment on above: Performed By: #### C BCDF #### [address] [id number] Basophils/100 WBC (Bld) 0.7 % Normal 0.0 - 2.0 [facility] Comment on above: Performed By: #### C BCDF #### [address] [id number] Eosinophils (Bld) [#/Vol] 0.01 10*3/uL Normal 0.00 - 0.70 [facility] Comment on above: Performed By: #### C BCDF #### [address] [id number] Eosinophils/100 WBC (Bld) 0.1 % Normal 0.0 - 6.0 [facility] Comment on above: Performed By: #### C BCDF #### [address] [id number] Erythrocyte distribution width (RBC) [Ratio] 12.9 % Normal 11.5 - 14.5 [facility] Comment on above: Performed By: #### C BCDF #### [address] [id number] Hematocrit (Bld) [Volume fraction] 34.5 % Low 36.0 - 46.0 [facility] Comment on above: Performed By: #### C BCDF #### [address] [id number] Hemoglobin (Bld) [Mass/Vol] 11.6 g/dL Low 12.0 - 16.0 [facility] Comment on above: Performed By: #### C BCDF #### [address] [id number] Lymphocytes (Bld) [#/Vol] 1.68 10*3/uL Normal 1.20 - 4.80 [facility] Comment on above: Performed By: #### C BCDF #### [address] [id number] Lymphocytes/100 WBC (Bld) 23.1 % Normal 13.0 - 44.0 [facility] Comment on above: Performed By: #### C BCDF #### [address] [id number] MCHC (RBC) [Mass/Vol] 33.6 g/dL Normal 32.0 - 36.0 [facility] Comment on above: Performed By: #### C BCDF #### [address] [id number] MCV (RBC) [Entitic vol] 86 fL Normal 80 - 100 [facility] Comment on above: Performed By: #### C BCDF #### [address] [id number] Monocytes (Bld) [#/Vol] 0.82 10*3/uL Normal 0.10 - 1.00 [facility] Comment on above: Performed By: #### C BCDF #### [address] [id number] Monocytes/100 WBC (Bld) 11.3 % Normal 2.0 - 10.0 [facility] Comment on above: Performed By: #### C BCDF #### [address] [id number] Neutrophils (Bld) [#/Vol] 4.68 10*3/uL Normal 1.20 - 7.70 [facility] Comment on above: Performed By: #### C BCDF #### [address] [id number] Neutrophils/100 WBC (Bld) 64.5 % Normal 40.0 - 80.0 [facility] Comment on above: Performed By: #### C BCDF #### [address] [id number] Platelets (Bld) [#/Vol] 267 10*3/uL Normal 150 - 450 [facility] Comment on above: Performed By: #### C BCDF #### [address] [id number] RBC 3.99 x10E12/L Low 4.00 - 5.20 [facility] Comment on above: Performed By: #### C BCDF #### [address] [id number] WBC (Bld) [#/Vol] 7.3 10*3/uL Normal 4.4 - 11.3 [facility] Comment on above: Performed By: #### C BCDF #### [address] [id number] COMPREHENSIVE PANELon 2021 Albumin [Mass/Vol] 4.6 g/dL Normal 3.4 - 5.0 [facility] Comment on above: Performed By: #### U A #### [address] [id number] ALP [Catalytic activity/Vol] 44 U/L Normal 33 - 110 [facility] Comment on above: Performed By: #### U A #### [address] [id number] ALT [Catalytic activity/Vol] 14 U/L Normal 7 - 45 [facility] Comment on above: Result Comment: Carrie ents treated with Sulfasalazine may generate falsely decreased results for ALT. Performed By: #### U A #### [address] [id number] Anion gap [Moles/Vol] 14 mmol/L Normal 10 - 20 [facility] Comment on above: Performed By: #### U A #### [address] [id number] AST [Catalytic activity/Vol] 19 U/L Normal 9 - 39 [facility] Comment on above: Performed By: #### U A #### [address] [id number] Bilirubin [Mass/Vol] 0.9 mg/dL Normal 0.0 - 1.2 [facility] Comment on above: Performed By: #### U A #### [address] [id number] Calcium [Mass/Vol] 9.3 mg/dL Normal 8.6 - 10.3 [facility] Comment on above: Performed By: #### U A #### [address] [id number] Chloride [Moles/Vol] 101 mmol/L Normal 98 - 107 [facility] Comment on above: Performed By: #### U A #### [address] [id number] Creatinine [Mass/Vol] 0.67 mg/dL Normal 0.50 - 1.05 [facility] Comment on above: Performed By: #### U A #### [address] [id number] eGFR FEMALE >90 Normal >90 [facility] Comment on above: Result Comment: CALC ULATIONS OF ESTIMATED GFR ARE PERFORMED USING THE 2020 CKD-EPI STUDY REFIT EQUATION WITHOUT THE RACE VARIABLE FOR THE IDMS-TRACEABLE CREATININE METHODS. https://jasn.asnjournals.org/content/early/ASN.206449045 8 Performed By: #### U A #### [address] [id number] Glucose [Mass/Vol] 95 mg/dL Normal 74 - 99 [facility] Comment on above: Performed By: #### U A #### [address] [id number] HCO3 (Bld) [Moles/Vol] 25 mmol/L Normal 21 - 32 [facility] Comment on above: Performed By: #### U A #### [address] [id number] Potassium [Moles/Vol] 3.2 mmol/L Low 3.5 - 5.3 [facility] Comment on above: Performed By: #### U A #### [address] [id number] Protein [Mass/Vol] 7.4 g/dL Normal 6.4 - 8.2 [facility] Comment on above: Performed By: #### U A #### [address] [id number] Sodium [Moles/Vol] 137 mmol/L Normal 136 - 145 [facility] Comment on above: Performed By: #### U A #### [address] [id number] Urea nitrogen [Mass/Vol] 14 mg/dL Normal 6 - 23 [facility] Comment on above: Performed By: #### U A #### [address] [id number] HCG,BETA-QUANTITATIVEon - HCG,BETA-QUANTITAT ENZO <2 Normal [facility] Comment on above: Result Comment: . Total HCG measurement is performed using the Perri Firstmonie Access Immunoassay which detects intact HCG and free beta HCG subunit. . This test is not indicated for use as a tumor marker. HCG testing is performed using a different test methodology at [facility] than other [facility]. Direct result comparison should only be made within the same method. REF VALUES NON FEMALE <5 MALES <5 Performed By: #### U A #### [address] [id number] Provider Note - ED v3on Provider Note [...] dictated by speech recognition. Minor errors in tenter feeder may be present. Please call if questions. [...] Attestation, C (more content not included)... Normal [facility] Risk Screen - Adult Emergenc yon 09-08-2022 Risk Screen - Adult Emergency Preferred Language: Preferred Language: Preferred Language for Discussing Health Care (patient/designee)Pakistani Patient Preferred Pharmacy: Patient Preferred Pharmacy Statement: [...] board Learning Preferencesaudio Cultural Considerationsnone Developmental Considerationsnone Orthodoxy Considerationsnone Learning Assessment (Other Learner): Learning Assessment [...] an injured patient at a Trauma Center ([facility]/[place]/Center/[facility]): no Electronic Signatures: Adonis Melchor (RN) (Signed 08-Sep-2022 20:07) Authored: Preferred Language, Patient Preferred Pharmacy, Advanced Directives, Family Violence Adult, Learning Assessment (Patient), Learning Assessment (Other Learner), Pressure Injury/TB/Substance, Pressure Injury, CAGE Last Updated: 08-Sep-2022 20:07 by Adonis Melchor (RN) Normal [facility] Triage - EDon 09-08-2022 Triage [...] BMI (kg/m2): 23.496 Calculated BSA (m2) 1.75 [place] Coma Scale: Best Eye Response: (E4) spontaneous Best Motor Response: (M6) obeys commands Best Verbal Response: (V5) oriented [place] Score: 15 Allergies: no Patient has homicidal [...] Last Updated: 08-Sep-2022 15:36 by Mechelle Garcia) [facility] 10-20-2021 CNPN Telephone (4CQ) -- HERNÁNDEZJULIETTE Freeman ([id number]) 1995 F Date Time Provider Department 10/20/21 JUAN ANTONIO ESQUEDA 4CQ During your visit today, we recorded the following information about you: Beny Niko 10/20/2021 9:39 AM Signed Juliette Hernández called today. : 1995 Allergies: Patient has no known allergies. (home) [phone] (cell) Reason for call: Patient calling asking for an alternative medication of Miconazole Nitrate (MONISTAT 3) 200 mg/5 gram (4 %) cream. Insurance does not cover this for patient. Requesting call back if any issues. Confirmed [facility] Sue as pharmacy Patient last appointment: Visit date not found The patients preferred pharmacy has been captured for this encounter? yes Beny Niko Mcconnell, HYDRAULIC MECHANIC.ECHO VASCULAR TECHNOLOGIST 10/20/2021 9:52 AM Signed rx sent for [...] daily for 7 days. Encounter Status:Closed by PAGE, TAL Gerber on 10/20/21 Normal [facility] Michael 10-18-2021 [facility] Telephone ([facility]) -- JULIETTE HERNÁNDEZ ([id number]) 1995 F Date Time Provider Department 10/18/21 JUAN ANTONIO ESQUEDA [facility] During your visit today, we [...] yeast infection as well. Thank you, BENNY Butcherdean FisherSKIP 10/18/2021 4:01 PM Signed Called number listed [...] by JUAN ANTONIO ESQUEDA on 10/18/21 Normal [facility] Bact Vag Amplificationon Bact Vag Amplification Positive Critically abnormal Negative for bacterial vaginosis [facility] Comment on above: Performed By: #### C VTV, BVAMP #### [facility] [address] [address] CNOVon 10-16-2021 CNOV Office Visit ([facility] ) -- JULIETTE HERNÁNDEZ ([id number]) 1995 F Date Time Provider Department 10/16/21 9:05 AM JUAN ANTONIO ESQUEDA [facility] During your visit today, we recorded the following information about you: Temperature Pulse Respiration Blood pressure 98 degrees 64/minute 20/minute 117/66 Weight Last Period 70.1 kg 10/09/21 Juan Antonio Esqueda PA-C 10/16/2021 10:24 AM Addendum This note was created using NoteWriter. Subjective [...] Exam Vitals reviewed. Exam conducted with a registered nurse fetal present (Latia Pantoja MA present for exam). [...] VAGINOSIS AMPL (more content not included)... Normal [facility] Sultana Trich Amplon 021 Sultana glabrata RNA Negative Normal Negative [facility] Comment on above: Performed By: #### C VTV, BVAMP #### [address] [id number] [place] [phone] Sultana sp group RNA Positive Critically abnormal Negative [facility] Comment on above: Performed By: #### C VTV, BVAMP #### Patricia [place] [address] Trichomonas RNA Negative Normal [facility] Comment on above: Performed By: #### C VTV, BVAMP #### [place] [address] GC/Chlamydia Amplifon 2020 Chlamydia Amplif Negative Normal [facility] Comment on above: Performed By: #### G CCT #### [place] [address] GC Amplification Negative Normal [facility] Comment on above: Performed By: #### G CCT #### [place] [phone] GC/Chlam Amp Source Cervix Normal [facility] Comment on above: Performed By: #### G CCT #### [place] [phone] Urine Cultureon 10-16-2021 Bacteria identified Cx Nom (U) Sp. Request/Comment: - Specimen received in preservative Culture Result - <10,000 CFU/ml Normal urogenital brenda Normal [facility] Comment on above: Performed By: #### U RCUL #### [place] [address] [address] [place], [place] [address] CNPNon 07-17-2021 CNPN Telephone (EXP[facility]) -- HERNÁNDEZJULIETTE Freeman ([id number]) 1995 F Date Time Provider Department 07/17/21 RETA CHAVEZ [facility] During your visit today, [...] Encounter Status:Closed by RETA CHAVEZ on 07/17/21 Normal [facility] CNCOon 07-15-2021 CNCO Letter Text Normal [facility] CNOVon 07-15-2021 CNOV Office Visit (EXP[facility] ) -- HERNÁNDEZJULIETTE Freeman ([id number]) 1995 F Date Time Provider Department 07/15/21 1:15 PM RUBINA LALA [facility] During your visit today, we recorded the following information about you: Temperature Pulse Blood pressure Last Period 97.7 degrees 71/minute 117/75 05/07/21 Rubina Lala PA-C 07/15/2021 1:58 PM Signed This note was created using [employer]. Subjective Juliette Hernández is a 26 year [...] causes COVID-19 (more content not included)... Normal [facility] Coronavirus 2019on 1 SARS-CoV-2 (COVID-19) RNA JOSE R+probe Ql (Unsp spec) UPPER RESPIRATORY TRACT SWAB Normal [facility] Comment on above: Performed By: #### C OVID #### [place] [phone] SARS-CoV-2 (COVID-19) RNA JOSE R+probe Ql (Unsp spec) Positive for COVID19 (SARS CoV2) by RT-PCR or equivalent method. Critically abnormal Negative for COVID19 (SARS CoV2) by RT-PCR or equivalent method. [facility] Comment on above: Result Comment: This test was developed and its performance characteristics determined by [facility] [place]. This test has been authorized by FDA under an Emergency Use Authorization (EUA). This test has been validated in accordance with the FDA's Guidance Document Policy for Diagnostics Testing in Laboratories Certified to Perform High Complexity Testing under CLIA prior to Emergency use Authorization for Coronavirus Disease 2019 during the Public Health Emergency issued on January 02, 2020. Test performed by [facility], [facility] [place], [address] [place] [address]. Performed By: #### C OVID #### [place] [address] Cult, Urineon 06-02-2020 Bacteria identified Cx Nom (U) PATIENT: JULIETTE HERNÁNDEZ LOCATION: [facility] BILL#: [id number] : [birth year] AGE: SEX: F ORDERED BY: RADHA WISDOM: URINE COLLECTED: 06/02/20 12:48ANTIBIOTICS AT MISSY.: RECEIVED : 06/03/20 00:40SITE: Clean Catch/Voided R E S U L T S URINE CULTURE,BACTERIAL FINAL 06/03/20 23:49 NO SIGNIFICANT GROWTH. [id number] [id number] [facility] Work Phone: GC + Chlamydia By Amplified Detectionon 06-02-2020 C. trachomatis rRNA JOSE R+probe Ql (Unsp spec) Positive Abnormal Negative ZP-ODUS-Cqqf [facility] [facility] Work Phone: N. gonorrhoeae rRNA JOSE R+probe Ql (Unsp spec) Positive Abnormal Negative DU-CUIL-Imlo [facility] [facility] Work Phone: Comment on above: SOURCE: Urine IO UA (automated w/o microsc opy)on 06-02-2020 Protein (U) [Mass/Vol] Negative OK-JGMA-Hnwc [facility] [facility] Work Phone: IO UA (automated w/o microscopy) Negative EX-AHLL-Hjnn [address] [facility] Work Phone: IO UA (automated w/o microscopy) Hemolyzed trace XS-FULJ-Alia [address] [facility] Work Phone: IO UA (automated w/o microscopy) 7.5 OT-FHRH-Zvbv [address] [facility] Work Phone: IO UA (automated w/o microscopy) Yellow MA-AUTW-Egch [address] [facility] Work Phone: IO UA (automated w/o microscopy) Normal AN-CZDN-Wwyf [address] [facility] Work Phone: IO UA (automated w/o microscopy) 1.015 DN-SODP-Dfgv [address] [facility] Work Phone: IO UA (automated w/o microscopy) Clear MH-HGYR-Vvzo [address] [facility] Work Phone: Otheron 06-02-2020 Negative Negative ZK-KBJX-Veoq [address] [facility] Work Phone: Comment on above: SOURCE: Urine CBCon 01-20-2019 Erythrocyte distribution width Ratio (RBC) 13.9 % Normal 12.0-15.4 [facility] Comment on above: Performed By: #### U ARFX #### [facility] [address] [place] [address] Hematocrit Volume Fraction (Bld) 27.4 % Low 36.5-46.[address] [facility] Comment on above: Performed By: #### U ARFX #### [facility] [address] [place] [address] Hemoglobin mass conc (Bld) 9.0 g/dL Low 11.8-15.[address] [facility] Comment on above: Performed By: #### U ARFX #### [facility] [address] [place] [address] MCH Entitic mass (RBC) 30.1 pg Normal 27.5-33.[address] [facility] Comment on above: Performed By: #### U ARFX #### [facility] [address] [place] [address] MCHC mass conc (RBC) 32.8 g/dL Normal 30.1-35.[address] [facility] Comment on above: Performed By: #### U ARFX #### [facility] [address] [place] [address] MCV Entitic volume (RBC) 91.6 fL Normal 85.4-100.[address] [facility] Comment on above: Performed By: #### U ARFX #### [facility] [address] [place] [address] NRBC Absolute 0.00 10*3/uL Normal [facility] Comment on above: Performed By: #### U ARFX #### [facility] [address] [place] [address] NRBC Automated 0.0 /100{WBCs} Normal [facility] Comment on above: Performed By: #### U ARFX #### [facility] [address] [place] [address] Platelet mean volume Entitic volume (Bld) 10.4 fL Normal 9.9-12.[address] [facility] Comment on above: Performed By: #### U ARFX #### [facility] [address] [place] [address] Platelets #/vol (Bld) 181 10*3/uL Normal 155-[address] [facility] Comment on above: Performed By: #### U ARFX #### [facility] [address] [place] [address] RBC #/vol (Bld) 2.99 10*6/uL Low 3.85-5.10 [facility] Comment on above: Performed By: #### U ARFX #### [facility] [address] [place] [address] RDW SD 46.8 fL Normal 39.3-48.6 [facility] Comment on above: Performed By: #### U ARFX #### [facility] [address] [place] [address] WBC #/vol (Bld) 11.7 10*3/uL High 4.4-9.9 [facility] Comment on above: Performed By: #### U ARFX #### [facility] [address] [place] [address] CBC With Differentialon - Basophils #/vol (Bld) 0.04 10*3/uL Normal 0.01-0.07 [facility] Comment on above: Performed By: #### U ARFX #### [facility] [address] [place] [address] Basophils/100 WBC (Bld) 0.4 % Normal 0.1-1.2 [facility] Comment on above: Performed By: #### U ARFX #### [facility] [address] [place] [address] Eosinophils #/vol (Bld) 0.03 10*3/uL Low 0.04-0.50 [facility] Comment on above: Performed By: #### U ARFX #### [facility] [address] [place] [address] Eosinophils/100 WBC (Bld) 0.3 % Normal 0.0-8.1 [facility] Comment on above: Performed By: #### U ARFX #### [facility] [address] [place] [address] Erythrocyte distribution width Ratio (RBC) 14.0 % Normal 12.0-15.4 [facility] Comment on above: Performed By: #### U ARFX #### [facility] [address] [place] [address] Hematocrit Volume Fraction (Bld) 32.8 % Low 36.5-46.6 [facility] Comment on above: Performed By: #### U ARFX #### [facility] [address] [place] [address] Hemoglobin mass conc (Bld) 10.8 g/dL Low 11.8-15.3 [facility] Comment on above: Performed By: #### U ARFX #### [facility] [address] [place] [address] Imm Grans Absolute 0.04 10*3/uL Normal 0.00-0.21 [facility] Comment on above: Performed By: #### U ARFX #### [facility] [address] [place] [address] Immature granulocytes #/vol (Bld) 0.4 % Normal [facility] Comment on above: Performed By: #### U ARFX #### [facility] [address] [place] [address] Lymphocytes #/vol (Bld) 1.96 10*3/uL Normal 0.40-2.84 [facility] Comment on above: Performed By: #### U ARFX #### [facility] [address] [place] [address] Lymphocytes/100 WBC (Bld) 19.6 % Normal 15.7-50.5 [facility] Comment on above: Performed By: #### U ARFX #### [facility] [address] [place] [address] MCH Entitic mass (RBC) 30.2 pg Normal 27.5-33.0 [facility] Comment on above: Performed By: #### U ARFX #### [facility] [address] [place] [address] MCHC mass conc (RBC) 32.9 g/dL Normal 30.1-35.0 [facility] Comment on above: Performed By: #### U ARFX #### [facility] [address] [place] [address] MCV Entitic volume (RBC) 91.6 fL Normal 85.4-100.0 [facility] Comment on above: Performed By: #### U ARFX #### [facility] [address] [place] [address] Monocytes #/vol (Bld) 1.00 10*3/uL High 0.25-0.83 [facility] Comment on above: Performed By: #### U ARFX #### [facility] [address] [place] [address] Monocytes/100 WBC (Bld) 10.0 % Normal 4.8-12.7 [facility] Comment on above: Performed By: #### U ARFX #### [facility] [address] [place] [address] Neutrophils Absolute 6.91 10*3/uL High 1.95-6.[address] [facility] Comment on above: Performed By: #### U ARFX #### [facility] [address] [place] [address] Neutrophils/100 WBC (Bld) 69.3 % Normal 36.8-73.[address] [facility] Comment on above: Performed By: #### U ARFX #### [facility] [address] [place] [address] NRBC Absolute 0.00 10*3/uL Normal [facility] Comment on above: Performed By: #### U ARFX #### [facility] [address] [place] [address] NRBC Automated 0.0 /100{WBCs} Normal [facility] Comment on above: Performed By: #### U ARFX #### [facility] [address] [place] [address] Platelet mean volume Entitic volume (Bld) 11.0 fL Normal 9.9-12.[address] [facility] Comment on above: Performed By: #### U ARFX #### [facility] [address] [place] [address] Platelets #/vol (Bld) 186 10*3/uL Normal 155-404 [facility] Comment on above: Performed By: #### U ARFX #### [facility] [address] [place] [address] RBC #/vol (Bld) 3.58 10*6/uL Low 3.85-5.10 [facility] Comment on above: Performed By: #### U ARFX #### [facility] [address] [place] [address] RDW SD 46.7 fL Normal 39.3-48.6 [facility] Comment on above: Performed By: #### U ARFX #### [facility] [address] [place] [address] WBC #/vol (Bld) 10.0 10*3/uL High 4.4-9.9 [facility] Comment on above: Performed By: #### U ARFX #### [facility] [address] [place] [address] Drugs of Abuse, Urine(7)on 0 01-19-2019 Amphetamines/Metam phetamines, Urine Not Detected Normal [facility] Comment on above: Performed By: #### U ARFX #### [facility] [address] [place] [address] Barbiturates, Urine Not Detected Normal [facility] Comment on above: Performed By: #### U ARFX #### [facility] [address] [place] [address] Benzodiazepines, Urine Not Detected Normal [facility] Comment on above: Performed By: #### U ARFX #### [facility] [address] [place] [address] Cannabinoids, Urine Not Detected Normal [facility] Comment on above: Performed By: #### U ARFX #### [facility] [address] [place] [address] Cocaine, Urine Not Detected Normal [facility] Comment on above: Performed By: #### U ARFX #### [facility] [address] [place] [address] Methadone, Urine Not Detected Normal [facility] Comment on above: Performed By: #### U ARFX #### [facility] [address] [place] [address] Opiates, Urine Not Detected Normal [facility] Comment on above: Performed By: #### U ARFX #### [facility] [address] [place] [address] PCP, Urine Not Detected Normal [facility] Comment on above: Result Comment: Urin e toxicology screen results are to be used for medical purposes only. It is recommended that any result reported as Detected be confirmed by a more specific alternative chemical method. Drug Analyzed Cutoff Concentration(ng/mL) Barbiturates 200 Benzodiazepines 200 Cocaine 150 Opiates 300 Amphetamines 500 Cannabinoids 50 Methadone 150 PCP 25 Performed By: #### U ARFX #### [facility] [address] [place] [address] Pathology ([facility])on 01-19-2019 Pathology ([facility]) Copy To: KEYSHA Ireland FINAL SURGICAL [...] SPECIMEN(S): (A) PLACENTA, THIRD TRIMESTER Performed at [facility], [address] [place] [address] GROSS DESCRIPTION: Received fresh, labeled with the [...] are noted. The surface is slightly opaque. Vertical Punch Operator sections of cord, membranes, and placenta [...] above: Performed By: #### U ARFX #### [facility] [address] [place] [address] Type and Screenon 01-19-2019 Group and Rh Positive Normal [facility] Comment on above: Performed By: #### U ARFX #### [facility] [address] [place] [address] Urinalysison 01-19-2019 Amorphous Crystal Occasional Normal None [facility] Comment on above: Performed By: #### U ARFX #### [facility] [address] [place] [address] Appearance Nom (U) Cloudy Normal Clear [facility] Comment on above: Performed By: #### U ARFX #### [facility] [address] [place] [address] Ascorbic Acid Negative Normal Negative [facility] Comment on above: Performed By: #### U ARFX #### [facility] [address] [place] [address] Automated Urine Microscopy Performed Normal [facility] Comment on above: Performed By: #### U ARFX #### [facility] [address] [place] [address] Bacteria LM.HPF #/area (Urine sed) Occasional Normal None [facility] Comment on above: Performed By: #### U ARFX #### [facility] [address] [place] [address] Bilirubin mass conc Negative Normal Negative [facility] Comment on above: Performed By: #### U ARFX #### [facility] [address] [place] [address] Blood Negative Normal Negative [facility] Comment on above: Performed By: #### U ARFX #### [facility] [address] [place] [address] Color Nom (U) Yellow Normal [facility] Comment on above: Performed By: #### U ARFX #### [facility] [address] [place] [address] Glucose mass conc Negative Normal Negative [facility] Comment on above: Performed By: #### U ARFX #### [facility] [address] [place] [address] Ketones Ql (U) Negative Normal Negative [facility] Comment on above: Performed By: #### U ARFX #### [facility] [address] [place] [address] Leukocytes Esterase Large Abnormal Negative [facility] Comment on above: Performed By: #### U ARFX #### [facility] [address] [place] [address] Nitrite Ql (U) Negative Normal Negative [facility] Comment on above: Performed By: #### U ARFX #### [facility] [address] [place] [address] pH (Bld) 7.0 Normal 5.0-9.0 [facility] Comment on above: Performed By: #### U ARFX #### [facility] [address] [place] [address] Protein mass conc (U) Negative Normal Negative [facility] Comment on above: Performed By: #### U ARFX #### [facility] [address] [place] [address] RBC 11 /[HPF] Normal 0-3 [facility] Comment on above: Performed By: #### U ARFX #### [facility] [address] [place] [address] Specific gravity Relative Density (U) 1.010 Normal 1.003-1.035 [facility] Comment on above: Performed By: #### U ARFX #### [facility] [address] [place] [address] Squamous Epithelial Cells 29 /[HPF] Normal 0-5 [facility] Comment on above: Performed By: #### U ARFX #### [facility] [address] [place] [address] Urobilinogen Qn (U) 2.0 mg/dL Abnormal Negative [facility] Comment on above: Result Comment: Due to a manufacturing issue, low positive urobilinogen results may be falsely positive. Correlate with urine bilirubin and additional clinical/laboratory findings to assess the risk of hemolytic anemia or liver disease. If clinically indicated, repeat testing with an alternate method is available by contacting the laboratory within 24 hours. Performed By: #### U ARFX #### [facility] [address] [place] [address] WBC 32 /[HPF] Normal 0-5 [facility] Comment on above: Performed By: #### U ARFX #### [facility] [address] [place] [id number] Culture, Group B Strep Scree non 12-25-2018 Culture, Group B Strep Screen BILL#: [id number] : 89 AGE: SEX: F AMBULATORY SOURCE: COLLECTED: 12/25/18 19:16 ANTIBIOTICS AT MISSY.: RECEIVED : 12/25/18 22:00 SITE: R E S U L T S GROUP B STREP SCREEN FINAL 12/27/18 08:44 NEGATIVE FOR GROUP B BETA STREP. Normal [facility] Comment on above: Performed By: #### C XBUR #### [facility] [address] [place] [address] Culture, Urine Bacterialon 0 12-25-2018 Culture, Urine Bacterial BILL#: [id number] : [birth year] AGE: SEX: F AMBULATORY SOURCE: URINE COLLECTED: 12/25/18 19:15 ANTIBIOTICS AT MISSY.: RECEIVED : 12/25/18 21:58 SITE: Unspecified R E S U L T S URINE CULTURE,BACTERIAL FINAL 12/26/18 15:49 NO SIGNIFICANT GROWTH. Normal [facility] Comment on above: Performed By: #### C XBUR #### [facility] [address] [place] [address] N. gonorrhoeae/C. trachomati s, Amplifiedon 12-25-2018 Chlamydia trachomatis, Amplified Negative Normal Negative [facility] Comment on above: Performed By: #### C XBUR #### [facility] [address] [place] [address] GC/CHLAM/TRICA Source Swab-Endocerv Normal [facility] Comment on above: Performed By: #### C XBUR #### [facility] [address] [place] [address] Neisseria gonorrhoeae, Amplified Negative Normal Negative [facility] Comment on above: Performed By: #### C XBUR #### [facility] [address] [place] [address] Trichmonas, Amplified Detect ionon 12-25-2018 Trichomonas, Amplified Negative Normal Negative [facility] Comment on above: Performed By: #### C XBUR #### [facility] [address] [place] [address] CBCon 12-11-2018 Erythrocyte distribution width Ratio (RBC) 13.0 % Normal 12.0-15.[address] [facility] Comment on above: Performed By: #### C XBUR #### [facility] [address] [place] [address] Hematocrit Volume Fraction (Bld) 33.0 % Low 36.5-46.[address] [facility] Comment on above: Performed By: #### C XBUR #### [facility] [address] [place] [address] Hemoglobin mass conc (Bld) 10.8 g/dL Low 11.8-15.[address] [facility] Comment on above: Performed By: #### C XBUR #### [facility] [address] [place] [address] MCH Entitic mass (RBC) 29.8 pg Normal 27.5-33.0 [facility] Comment on above: Performed By: #### C XBUR #### [facility] [address] [place] [address] MCHC mass conc (RBC) 32.7 g/dL Normal 30.1-35.0 [facility] Comment on above: Performed By: #### C XBUR #### [facility] [address] [place] [address] MCV Entitic volume (RBC) 91.2 fL Normal 85.4-100.0 [facility] Comment on above: Performed By: #### C XBUR #### [facility] [address] [place] [address] NRBC Absolute 0.00 10*3/uL Normal [facility] Comment on above: Performed By: #### C XBUR #### [facility] [address] [place] [address] NRBC Automated 0.0 /100{WBCs} Normal [facility] Comment on above: Performed By: #### C XBUR #### [facility] [address] [place] [address] Platelet mean volume Entitic volume (Bld) 9.8 fL Low 9.9-12.[address] [facility] Comment on above: Performed By: #### C XBROSALINA #### [facility] [address] [place] [address] Platelets #/vol (Bld) 228 10*3/uL Normal 155-[address] [facility] Comment on above: Performed By: #### C XBUR #### [facility] [address] [place] [address] RBC #/vol (Bld) 3.62 10*6/uL Low 3.85-5.[address] [facility] Comment on above: Performed By: #### C XBROSALINA #### [facility] [address] [place] [address] RDW SD 43.0 fL Normal 39.3-48.[address] [facility] Comment on above: Performed By: #### C XBUR #### [facility] [address] [place] [address] WBC #/vol (Bld) 9.6 10*3/uL Normal 4.4-9.[address] [facility] Comment on above: Performed By: #### C XBUR #### [facility] [address] [place] [address] Comprehensive Metabolic Pane shad 12-11-2018 Albumin mass conc 3.4 g/dL Normal 3.4-5.[address] [facility] Comment on above: Performed By: #### C XBROSALINA #### [facility] [address] [place] [address] Albumin/Globulin mass ratio 1.1 {ratio} Normal 0.9-2.4 [facility] Comment on above: Performed By: #### C XBUR #### [facility] [address] [place] [address] ALP enzyme act/vol 97 U/L Normal 45-117 [facility] Comment on above: Performed By: #### C XBUR #### [facility] [address] [place] [address] ALT enzyme act/vol 16 U/L Normal 7-45 [facility] Comment on above: Performed By: #### C XBUR #### [facility] [address] [place] [address] Anion gap molar conc 13 mmol/L Normal 10-[address] [facility] Comment on above: Performed By: #### C XBUR #### [facility] [address] [place] [address] AST enzyme act/vol 14 U/L Normal 13-39 [facility] Comment on above: Performed By: #### C XBUR #### [facility] [address] [place] [address] Bilirubin mass conc 0.4 mg/dL Normal 0.0-1.[address] [facility] Comment on above: Performed By: #### C XBUR #### [facility] [address] [place] [address] Calcium mass conc 8.8 mg/dL Normal 8.6-10.[address] [facility] Comment on above: Performed By: #### C XBUR #### [facility] [address] [place] [address] Chloride molar conc 103 mmol/L Normal 98-107 [facility] Comment on above: Performed By: #### C XBUR #### [facility] [address] [place] [address] Creatinine mass conc 0.41 mg/dL Low 0.50-1.05 [facility] Comment on above: Performed By: #### C XBUR #### [facility] [address] [place] [address] GFR/1.73 sq M.predicted MDRD vol rate/area mL/min/{1.73_m2} Normal [facility] Comment on above: Result Comment: Inte rpretation for Chronic Kidney Disease: Stages 1&2 >60 Healthy or potential kidney damage. Mild decrease of GFR. Stage 3 30-59 Moderate decrease of GFR. Stage 4 15-29 Severe decrease of GFR. Stage 5 <15 Kidney failure or on dialysis. Performed By: #### C XBUR #### [facility] [address] [place] [address] Glucose mass conc 87 mg/dL Normal 70-[address] [facility] Comment on above: Performed By: #### C XBUR #### [facility] [address] [place] [address] HCO3 molar conc (Bld) 26 mmol/L Normal 21-[address] [facility] Comment on above: Performed By: #### C XBUR #### [facility] [address] [place] [address] Potassium molar conc 4.1 mmol/L Normal 3.5-5.[address] [facility] Comment on above: Performed By: #### C XBUR #### [facility] [address] [place] [address] Protein mass conc 6.4 g/dL Normal 6.4-8.[address] [facility] Comment on above: Performed By: #### C XBUR #### [facility] [address] [place] [address] Sodium molar conc 138 mmol/L Normal 136-[address] [facility] Comment on above: Performed By: #### C XBUR #### [facility] [facility] [address] [place] [address] Urea nitrogen mass conc 5 mg/dL Low 6-[address] [facility] Comment on above: Performed By: #### C XBUR #### [facility] [address] [place] [address] Urea nitrogen/Creatinin e mass ratio 12 mg/mg Normal 5-25 [facility] Comment on above: Performed By: #### C XBUR #### [facility] [address] [place] [address] Drugs of Abuse, Urine(7)on 0 12-11-2018 Amphetamines/Metam phetamines, Urine Not Detected Normal [facility] Comment on above: Performed By: #### C XBUR #### [facility] [address] [place] [address] Barbiturates, Urine Not Detected Normal [facility] Comment on above: Performed By: #### C XBUR #### [facility] [address] [place] [address] Benzodiazepines, Urine Not Detected Normal [facility] Comment on above: Performed By: #### C XBUR #### [facility] [address] [place] [address] Cannabinoids, Urine Not Detected Normal [facility] Comment on above: Performed By: #### C XBUR #### [facility] [address] [place] [address] Cocaine, Urine Not Detected Normal [facility] Comment on above: Performed By: #### C XBUR #### [facility] [address] [place] [address] Methadone, Urine Not Detected Normal [facility] Comment on above: Performed By: #### C XBUR #### [facility] [address] [place] [address] Opiates, Urine Not Detected Normal [facility] Comment on above: Performed By: #### C XBUR #### [facility] [address] [place] [address] PCP, Urine Not Detected Normal [facility] [...] 25 Performed By: #### C XBUR #### [facility] [address] [place] [address] Urinalysison 12-11-2018 Amorphous Crystal Occasional Normal None [facility] Comment on above: Performed By: #### C XBUR #### [facility] [address] [place] [address] Appearance Nom (U) Cloudy Normal Clear [facility] Comment on above: Performed By: #### C XBUR #### [facility] [address] [place] [address] Ascorbic Acid Negative Normal Negative [facility] Comment on above: Performed By: #### C XBUR #### [facility] [address] [place] [address] Automated Urine Microscopy Performed Normal [facility] Comment on above: Performed By: #### C XBUR #### [facility] [address] [place] [address] Bilirubin mass conc Negative Normal Negative [facility] Comment on above: Performed By: #### C XBUR #### [facility] [address] [place] [address] Blood Negative Normal Negative [facility] Comment on above: Performed By: #### C XBUR #### [facility] [address] [place] [address] Color Nom (U) Yellow Normal [facility] Comment on above: Performed By: #### C XBUR #### [facility] [address] [place] [address] Glucose mass conc Negative Normal Negative [facility] Comment on above: Performed By: #### C XBUR #### [facility] [address] [place] [address] Ketones Ql (U) Negative Normal Negative [facility] Comment on above: Performed By: #### C XBUR #### [facility] [address] [place] [address] Leukocytes Esterase Trace Abnormal Negative [facility] Comment on above: Performed By: #### C XBUR #### [facility] [address] [place] [address] Mucous Rare Normal None [facility] Comment on above: Performed By: #### C XBUR #### [facility] [address] [place] [address] Nitrite Ql (U) Negative Normal Negative [facility] Comment on above: Performed By: #### C XBUR #### [facility] [address] [place] [address] pH (Bld) 7.0 Normal 5.0-9.0 [facility] Comment on above: Performed By: #### C XBUR #### [facility] [address] [place] [address] Protein mass conc (U) Negative Normal Negative [facility] Comment on above: Performed By: #### C XBUR #### [facility] [address] [place] [address] RBC 3 /[HPF] Normal 0-3 [facility] Comment on above: Performed By: #### C XBUR #### [facility] [address] [place] [address] Specific gravity Relative Density (U) 1.014 Normal 1.003-1.035 [facility] Comment on above: Performed By: #### C XBUR #### [facility] [address] [place] [address] Squamous Epithelial Cells 23 /[HPF] Normal 0-5 [facility] Comment on above: Performed By: #### C XBUR #### [facility] [address] [place] [address] Urobilinogen Qn (U) <2.0 Normal Negative EM [...] hours. Performed By: #### C XBUR #### [facility] [address] [place] [address] WBC 3 /[HPF] Normal 0-5 [facility] Comment on above: Performed By: #### C XBUR #### [facility] [address] [place] [address] Drugs of Abuse, Urine(7)on 0 - Amphetamines/Metam phetamines, Urine Not Detected Normal [facility] Comment on above: Performed By: #### C XBUR #### [facility] [address] [place] [address] Barbiturates, Urine Not Detected Normal [facility] Comment on above: Performed By: #### C XBUR #### [facility] [address] [place] [address] Benzodiazepines, Urine Not Detected Normal [facility] Comment on above: Performed By: #### C XBUR #### [facility] [address] [place] [address] Cannabinoids, Urine Not Detected Normal [facility] Comment on above: Performed By: #### C XBUR #### [facility] [address] [place] [address] Cocaine, Urine Not Detected Normal [facility] Comment on above: Performed By: #### C XBUR #### [facility] [address] [place] [address] Methadone, Urine Not Detected Normal [facility] Comment on above: Performed By: #### C XBUR #### [facility] [address] [place] [address] Opiates, Urine Not Detected Normal [facility] Comment on above: Performed By: #### C XBUR #### [facility] [address] [place] [address] PCP, Urine Not Detected Normal [facility] [...] 25 Performed By: #### C XBUR #### [facility] [address] [place] [address] Urinalysison 12-01-2018 Appearance Nom (U) Clear Normal Clear [facility] Comment on above: Performed By: #### G CCHA #### [facility] [address] [place] [address] Ascorbic Acid Positive Normal Negative [facility] Comment on above: Result Comment: Pres ence of Ascorbic Acid may interfere with the detection of blood, glucose, nitrite, and bilirubin. Performed By: #### [facility] #### [facility] [address] [place] [address] Automated Urine Microscopy Performed Normal [facility] Comment on above: Performed By: #### [facility] #### [facility] [address] [place] [address] Bilirubin mass conc Negative Normal Negative [facility] Comment on above: Performed By: #### [facility] #### [facility] [address] [place] [address] Blood Negative Normal Negative [facility] Comment on above: Performed By: #### [facility] #### [facility] [address] [place] [address] Budding Yeast Rare Normal None [facility] Comment on above: Performed By: #### [facility] #### [facility] [address] [place] [address] Color Nom (U) Yellow Normal [facility] Comment on above: Performed By: #### [facility] #### [facility] [address] [place] [address] Glucose mass conc Negative Normal Negative [facility] Comment on above: Performed By: #### [facility] #### [facility] [address] [place] [address] Ketones Ql (U) Negative Normal Negative [facility] Comment on above: Performed By: #### [facility] #### [facility] [address] [place] [address] Leukocytes Esterase Small Abnormal Negative [facility] Comment on above: Performed By: #### [facility] #### [facility] [address] [place] [address] Mucous Rare Normal None [facility] Comment on above: Performed By: #### [facility] #### [facility] [address] [place] [address] Nitrite Ql (U) Negative Normal Negative [facility] Comment on above: Performed By: #### [facility] #### [facility] [address] [place] [address] pH (Bld) 7.0 Normal 5.0-9.0 [facility] Comment on above: Performed By: #### [facility] #### [facility] [address] [place] [address] Protein mass conc (U) Negative Normal Negative [facility] Comment on above: Performed By: #### G CCHA #### [facility] [address] [place] [address] RBC 3 /[HPF] Normal 0-3 [facility] Comment on above: Performed By: #### G CCHA #### [facility] [address] [place] [address] Specific gravity Relative Density (U) 1.016 Normal 1.003-1.035 [facility] Comment on above: Performed By: #### [facility] #### [facility] [address] [place] [address] Squamous Epithelial Cells 12 /[HPF] Normal 0-5 [facility] Comment on above: Performed By: #### [facility] #### [facility] [address] [place] [address] Urobilinogen Qn (U) <2.0 Normal Negative [facility] [...] within 24 hours. Performed By: #### [facility] #### [facility] [address] [place] [address] WBC 2 /[HPF] Normal 0-5 [facility] Comment on above: Performed By: #### G CCHA #### [facility] [address] [place] [address] Vaginal Pathogen DNAon 12-01 Estrada Vag DNA Probe Positive Abnormal Negative [facility] Comment on above: Performed By: #### C CUAUHTEMOC #### [facility] [address] [place] [address] Protein mass conc Negative Normal Negative [facility] Comment on above: Performed By: #### C XBROSALINA #### [facility] [address] [place] [address] Trich Vag DNA Probe Negative Normal Negative [facility] Comment on above: Performed By: #### C XBROSALINA #### [facility] [address] [place] [address] Ferritinon 11-13-2018 Ferritin mass conc 6 ng/mL Low 8-150 [facility] Comment on above: Performed By: #### G CCHA #### [facility] [address] [place] [address] Folate/B12on 11-13-2018 Cobalamin (Vitamin B12) mass conc 239 pg/mL Normal 211-911 [facility] Comment on above: Performed By: #### G CCHA #### [facility] [address] [place] [address] Folate 21.10 ng/mL Normal [facility] Comment on above: Result Comment: Norm al Range >5.0 Performed By: #### G CCHA #### [facility] [address] [place] [address] N. gonorrhoeae/C. trachomati s, Amplifiedon 11-13-2018 Chlamydia trachomatis, Amplified Negative Normal Negative [facility] Healthcare Comment on above: Performed By: #### G CCHA #### [facility] [address] [place] [address] GC/CHLAM/TRICA Source Swab-Endocerv Normal [facility] Comment on above: Performed By: #### G CCHA #### [facility] [address] [place] [address] Neisseria gonorrhoeae, Amplified Negative Normal Negative [facility] Comment on above: Performed By: #### G CCHA #### [facility] [address] [place] [address] Vaginal Pathogen DNAon 11-13 Estrada Vag DNA Probe Positive Abnormal Negative [facility] Comment on above: Performed By: #### G CCHA #### [facility] [address] [place] [address] Protein mass conc Positive Abnormal Negative [facility] Comment on above: Performed By: #### [facility] #### [facility] [address] [place] [address] Trich Vag DNA Probe Negative Normal Negative [facility] Comment on above: Performed By: #### G CCHA #### [facility] [address] [place] [address] CBCon 10-24-2018 Erythrocyte distribution width Ratio (RBC) 13.2 % Normal 12.0-15.4 [facility] Comment on above: Performed By: #### [facility] #### [facility] [address] [place] [address] Hematocrit Volume Fraction (Bld) 31.3 % Low 36.5-46.6 [facility] Comment on above: Performed By: #### [facility] #### [facility] [address] [place] [address] Hemoglobin mass conc (Bld) 10.3 g/dL Low 11.8-15.3 [facility] Comment on above: Performed By: #### [facility] #### [facility] [address] [place] [address] MCH Entitic mass (RBC) 30.0 pg Normal 27.5-33.0 [facility] Comment on above: Performed By: #### [facility] #### [facility] [address] [place] [address] MCHC mass conc (RBC) 32.9 g/dL Normal 30.1-35.0 [facility] Comment on above: Performed By: #### [facility] #### [facility] [address] [place] [address] MCV Entitic volume (RBC) 91.3 fL Normal 85.4-100.0 [facility] Comment on above: Performed By: #### [facility] #### [facility] [address] [place] [address] NRBC Absolute 0.00 10*3/uL Normal [facility] Comment on above: Performed By: #### [facility] #### [facility] [address] [place] [address] NRBC Automated 0.0 /100{WBCs} Normal [facility] Comment on above: Performed By: #### [facility] #### [facility] [address] [place] [address] Platelet mean volume Entitic volume (Bld) 10.2 fL Normal 9.9-12.1 [facility] Comment on above: Performed By: #### [facility] #### [facility] [address] [place] [address] Platelets #/vol (Bld) 233 10*3/uL Normal 155-404 [facility] Comment on above: Performed By: #### [facility] #### [facility] [address] [place] [address] RBC #/vol (Bld) 3.43 10*6/uL Low 3.85-5.10 [facility] Comment on above: Performed By: #### [facility] #### [facility] [address] [place] [address] RDW SD 44.4 fL Normal 39.3-48.6 [facility] Comment on above: Performed By: #### [facility] #### [facility] [address] [place] [address] WBC #/vol (Bld) 8.8 10*3/uL Normal 4.4-9.9 [facility] Comment on above: Performed By: #### [facility] #### [facility] [address] [place] [address] Glucose, 1 H Post 50 Gram (P regnancy Screen)on 10-24-2018 Glucose, 1 H Post 50 Gram ( Screen) 114 mg/dL Normal 55-140 [facility] Comment on above: Performed By: #### [facility] #### [facility] [address] [place] [address] N. gonorrhoeae/C. trachomati s, Amplifiedon 10-16-2018 Chlamydia trachomatis, Amplified Positive Abnormal Negative [facility] Comment on above: Performed By: #### [facility] #### [facility] [address] [place] [address] GC/CHLAM/TRICA Source Urine Normal [facility] Comment on above: Performed By: #### [facility] #### [facility] [address] [place] [address] Neisseria gonorrhoeae, Amplified Positive Abnormal Negative [facility] Comment on above: Performed By: #### G CCHA #### [facility] [address] [place] [address] CBCon 09-18-2018 Erythrocyte distribution width Ratio (RBC) 13.5 % Normal 12.0-15.4 [facility] Comment on above: Performed By: #### 2 [id number] #### [facility] [address] [place] [address] Hematocrit Volume Fraction (Bld) 34.6 % Low 36.5-46.[address] [facility] Comment on above: Performed By: #### 2 [id number] #### [facility] [address] [place] [address] Hemoglobin mass conc (Bld) 11.3 g/dL Low 11.8-15.3 [facility] Comment on above: Performed By: #### 2 [id number] #### [facility] [address] [place] [address] MCH Entitic mass (RBC) 29.5 pg Normal 27.5-33.0 [facility] Comment on above: Performed By: #### 2 [id number] #### [facility] [address] [place] [address] MCHC mass conc (RBC) 32.7 g/dL Normal 30.1-35.0 [facility] Comment on above: Performed By: #### 2 [id number] #### [facility] [address] [place] [address] MCV Entitic volume (RBC) 90.3 fL Normal 85.4-100.0 [facility] Comment on above: Performed By: #### 2 [id number] #### [facility] [address] [place] [address] NRBC Absolute 0.00 10*3/uL Normal [facility] Comment on above: Performed By: #### 2 [id number] #### [facility] [address] [place] [address] NRBC Automated 0.0 /100{WBCs} Normal [facility] Comment on above: Performed By: #### 2 [id number] #### [facility] [address] [place] [address] Platelet mean volume Entitic volume (Bld) 10.7 fL Normal 9.9-12.[address] [facility] Comment on above: Performed By: #### 2 [id number] #### [facility] [address] [place] [address] Platelets #/vol (Bld) 255 10*3/uL Normal 155-[address] [facility] Comment on above: Performed By: #### 2 [id number] #### [facility] [address] [place] [address] RBC #/vol (Bld) 3.83 10*6/uL Low 3.85-5.[address] [facility] Comment on above: Performed By: #### 2 [id number] #### [facility] [address] [place] [address] RDW SD 44.2 fL Normal 39.3-48.[address] [facility] Comment on above: Performed By: #### 2 [id number] #### [facility] [address] [place] [address] WBC #/vol (Bld) 8.8 10*3/uL Normal 4.4-9.[address] [facility] Comment on above: Performed By: #### 2 [id number] #### [facility] [address] [place] [address] Culture, Urine Bacterialon 1 11-18-2017 Culture, Urine Bacterial BILL#: [id number] : 89 AGE: SEX: F AMBULATORY SOURCE: URINE COLLECTED: 09/18/18 19:09 ANTIBIOTICS AT MISSY.: RECEIVED : 09/18/18 22:53 SITE: Unspecified R E S U L T S URINE CULTURE,BACTERIAL FINAL 09/19/18 16:24 NO SIGNIFICANT GROWTH. Normal [facility] Comment on above: Performed By: #### U ARFX #### [facility] [address] [place] [address] Cystic Fibrosis, 165 Variant on 09-18-2018 CF 165 Variant Interp. 0 variants Normal [facility] Comment on above: Result Comment: None of [...] 1 in 61 1 in 275 Ashkenazi Baptist 96% 1 in 24 1 in 575 Filipino 55% 1 in 94 1 in 210 92% 1 in 25 1 in 300 Filipino 80% 1 in 58 1 in 285 [...] or bronchiectasis. INCIDENCE: 1 in 2,300 Ashkenazi Baptist, 1 in 2,500 Caucasians, 1 in 13,500 [...] for the 23 recommended ACMG variants. c.1A>G, p.Vti2Fri; c.54-7573_273+05349saz, Exons 2-3del; c.115C>T, p.Gln39X; c.178G>T, p.Glu60X; c.200C>T, p.Mma41Ebf; c.223C>T, p.Arg75X; c.254G>A (Legacy G85E), p.Tyf02Vdi; c.262_263delTT, p.Ujz61UtqryB24 (aka p.Hmo90sj); c.273+1G>A, Intronic; c.273+3A>C, Intronic; c.274-1G>A, Intronic; c.274G>A, p.Uvg03Bbc; c.274G>T, p.Glu92X; c.292C>T, p.Gln98X; c.313delA, p.Zjs358HyhuvQ3 (aka p.Ugu784zl); c.325_327delTATinsG, p.Xix082VcxykC7 (aka p.Gyr374rp); c.328G>C, p.Cro881Qrx; c.349C>T, p.Dnn683Qcp; c.350G>A (Legacy R117H), p.Ycc342Itg; c.366T>A, p.Mth859C; c.442delA, p.Tmk699UstveH3 (aka p.Xor249vt); c.489+1G>T (Legacy 621+1G>T), Intronic; c.531delT, p.Hxq751NsxvtP80 (aka p.Hyp602hu); c.532G>A, p.Snk226Mku; c.579+1G>T (Legacy 711+1G>T), Intronic; c.579+5G>A, Intronic; c.579+3A>G, Intronic; c.580-1G>T, Intronic; c.595C>T, p.Xmp870Rrr; c.613C>T, p.Zfx001Eie; c.617T>G, p.Cpk821Aqu; c.658C>T, p.Ztd344S; c.680T>G, p.Zrr977Ccq; c.720_741delAGGGAGAATGATGATGAAGTAC, p.Gmy796BlxghB37 (aka p.Iaw935oy); c.803delA, p.Nsj813OcnhnJ73 (aka p.Vkw635ra); c.805_806delAT, p.Xoc499EdbioN1 (aka p.Eao132un); c.933_935delCTT, p.Atd137nmw; c.948delT, p.Iax669MwxttA80 (aka p.Sxe772xa); c.988G>T, p.Jlp142S; c.1000C>T (Legacy R334W), p.Vne315Nve; c.1007T>A, p.Hcc059Zov; c.1021T>C, p.Yrm122Lmw; c.1022_1023insTC, p.Cce070QjnaqW45 (aka p.Lwl121kx); c.1040G>A, p.Ead552Kah; c.1040G>C (Legacy R347P), p.Lrd258Qbv; c.1055G>A, p.Ziw982Umf; c.1081delT, p.Rod560MwxjeM3 (aka p.Yat865av); c.1116+1G>A, Intronic; c.1127_1128insA, p.Rrv250LlfyaD6 (aka p.Qjk077ew); c.1153_1154insAT, p.Ksk177FppvzY1 (aka p.Jks242rm); c.1202G>A, p.Ntq853E; c.1203G>A, p.Xil161Q; c.1209+1G>A, Intronic; c.1329_1330insAGAT, p.Jeg808JwjixE4 (aka p.Doy985vq); c.1340delA, p.Nlu345GqokjI7 (aka p.Zyr580if); c.1364C>A (Legacy A455E), p.Tsy663Sik; c.1393-1G>A, Intronic; c.1397C>A, p.Uuj346S; c.1397C>G, p.Fqt139I; c.1400T>C, p.Mae363Jxb; c.1418delG, p.Rjg526QwsdsT64 (aka p.Jnc979xn); c.1438G>T, p.Lnd074Zuq; c.1466C>A, p.Ntr848C; c.1475C>T, p.Epj634Syd; c.1477C>T, p.Slm677D; c.1519_1521delATC (Legacy L969vjk), p.Viy250bxf; c.1521_1523delCTT (Legacy U097kop), p.Jlc997dqd; c.1545_1546delTA, p.Ayq449X; c.1558G>T, p.Dic924Prr; c.1572C>A, p.Mfo002A; c.1573C>T, p.Sdc554C; c.1585-1G>A (Legacy 1717-1G>A), Intronic; c.1585-8G>A, Intronic; c.1624G>T (Legacy G542X), p.Xld248F; c.1645A>C, p.Xoz559Uze; c.1646G>A, p.Nim443Pbx; c.1647T>G, p.Usr640Cpk; c.1651G>A, p.Izg895Aor; c.1652G>A (Legacy G551D), p.Vrr412Dmm; c.1654C>T, p.Myt963L; c.1657C>T (Legacy R553X), p.Xrm230V; c.1675G>A, p.Nea827Igk; c.1679G>A, p.Etc938Mhm; c.1679G>C (Legacy R560T), p.Jvb232Pqs; c.1679+1.6kbA>G, Intronic; c.1680-1G>A, Intronic; c.1703delT, p.Ayb574VissuG7 (aka p.Zmq982xk); c.1705T>G, p.Whi594Lfx; c.1721C>A, p.Del602Gop; c.1753G>T, p.Pdi551R; c.1766+1G>A (Legacy 1898+1G>A), Intronic; c.1766+3A>G, Intronic; c.1792_1798delAAAACTA, p.Rin904DyoupK85 (aka p.Xcw487kf); c.1911delG, p.Tos324DelkpD57 (aka p.Reu350lv); c.1923_1931del9insA, p.Evn432BdnrfM1 (aka p.Cru042vv); c.1972_1984del13insAGAAA, p.Uou818BtjxxV9 (aka p.Ukq861jy); c.1975delA, p.Qyu505FsikbW5 (aka p.Qrr976zw); c.2011delT, p.Xuv884P; c.205_2052del, p.Kcp650QayinD1; c.205_2delinsG (aka c.2051_2delinsG), p.Wfz920SxyeyH88; c.2052delA (Legacy 2184delA), p.Frj481VpwwfK86; c.2125C>T, p.Jqf164Q; c.2128A>T, p.Rlc994T; c.2175_2176insA, p.Iwb332LwjbeF5 (aka p.Zgy965xz); c.2195T>G, p.Kqb146N; c.2215delG, p.Yha854AjbdzE45 (aka p.Lew727ga); c.2290C>T, p.Rve063Qhg; c.2453delT, p.Vtu041WkvvuM8 (aka p.Hgw900ke); c.2464G>T, p.Iqz389G; c.2490+1G>A, Intronic; c.2491G>T, p.Ahe330M; c.2537G>A, p.Gfp745R; c.2538G>A, p.Sta674B; c.2551C>T, p.Hpb693D; c.2583delT, p.Wky014UypkqL3 (aka p.Sji510rw); c.2657+5G>A (Legacy 2789+5G>A), Intronic; c.2668C>T, p.Qty948J; c.2737_2738insG, p.Jrr099N; c.2780T>C, p.Mxc991Orz; c.2810_2811insT, p.Uts555HaxxiL56 (aka p.Kzq662ax); c.2834C>T, p.Aeh070Oqd; c.2875delG, p.Hhm128LiklbX0 (aka p.Qgb095zi); c.2908G>C, p.Pfx737Arp; c.2988+1G>A (Legacy 3120+1G>A), Intronic; c.2988G>A, Intronic; c.2989-1G>A, Intronic; c.3039delC, p.Guh1731SfdbmB8 (aka p.Vym2676ib); c.3067_3072delATAGTG, p.Acv1890_Cxg9967xiw (aka O3880_D6294blw); c.3140-26A>G, Intronic; c.3194T>C, p.Oux0102Zdz; c.3196C>T, p.Yfu0774Nsw; c.3197G>A, p.Cpm4904Nqr; c.3230T>C, p.Sre1866Xdj; c.3266G>A, p.Wxv5785M; c.3276C>A, p.Wnz3254S; c.3276C>G, p.Hff0125K; c.3302T>A, p.Uxu3733Ikt; c.3310G>T, p.Jny3985T; c.3472C>T, p.Cnc2881G; c.3484C>T (Legacy C7754F), p.Ule2906A; c.3528delC (Legacy 3659delC), p.Qiv7515MiyilZ59 (aka p.Twb6803zc); c.3536_3539del, p.Use3149FiagdZ71 (aka p.Psx3849lh); c.3587C>G, p.Lnz8567L; c.3611G>A, p.Acg6294V; c.3612G>A, p.Heg0323Y; c.3659delC, p.Gyz8587JcyalA0 (aka p.Jwt5773vp); c.3691delT, p.Dzj7588YuyjcY0 (aka p.Xrv0541de); c.3712C>T, p.Qjg9728D; c.3718-3177C>T (Legacy 3849+10kbC>T), Intronic; c.3731G>A, p.Ycr2332Bee; c.3744delA, p.Vpk2177UopggP1 (aka p.Ysn9726jp); c.3752G>A, p.Idk3640Zyu; c.3763T>C, p.Lfw9961Vnp; c.3764C>A, p.Xmg3038M; c.3773_3774insT, p.Fqz3861BtmtiB6 (aka p.Wsn3818un); c.3846G>A ([employer] G2419Z), p.Zni3588C; c.3873+1G>A, Intronic; c.3909C>G ([employer] V9148P), p.Tbc3894Tjr; c.3937C>T, p.Ffz3722A; c.3964-78_4242+577del, Exons 22-23del; c.4028delG, p.Cxo2717FhmknU9 (aka p.Spz8762jw); c.4046G>A, p.Ldw3807Icm; c.4077_4080delTGTTinsAA, p.Rwr4012lhC2 (aka p.Erg0403vo); c.4111G>T, p.Vba4986D; c.4251delA, p.Lgg9902TjsbeY85 (aka p.Cnb9857nz). The IVS-8 variant, c.1210-12[5], will be reported only when R117H is detected or in patients who are reported to be symptomatic. CLINICAL SENSITIVITY: Ashkenazi Baptist 96 percent; 92 percent; 80 percent; 78 percent; Filipino 55 percent. METHODOLOGY: Polymerase chain reaction (PCR) and fluorescence monitoring. Analytical Sensitivity & Specificity: 99 percent. LIMITATIONS: Diagnostic errors can occur due to rare sequence variations. Only the 165 pathogenic CFTR variants and 5T variant (listed above) will be interrogated. See Compliance Statement C: [email or web address] Performed by [email or web address], [address] [place] [id number] [email or web address], Robert Fraire MD - Lab. Director Performed By: #### U ARFX #### [facility] [address] [place] [address] CF 5T Variant Not Applicable Normal [facility] Comment on above: Performed By: #### U ARFX #### [facility] [address] [place] [id number] CF [place] 1 Negative Normal [facility] Healthcare Comment on above: Performed By: #### U ARFX #### [facility] [address] [place] [address] CF [place] 2 Negative Normal [facility] Healthcare Comment on above: Performed By: #### U ARFX #### [facility] [address] [place] [address] CF Specimen Type Whole Blood Normal [facility] Comment on above: Performed By: #### U ARFX #### [facility] [address] [place] [address] CF Symptom No Normal [facility] Comment on above: Performed By: #### U ARFX #### [facility] [address] [place] [address] Ethnicity [address] [facility] Comment on above: Performed By: #### U ARFX #### [facility] [address] [place] [address] Family History No Normal [facility] Comment on above: Performed By: #### U ARFX #### [facility] [address] [place] [address] Drugs of Abuse, Urine(7)on 11-18-2017 Amphetamines/Metam phetamines, Urine Not Detected Normal [facility] Comment on above: Performed By: #### U ARFX #### [facility] [address] [place] [address] Barbiturates, Urine Not Detected Normal [facility] Comment on above: Performed By: #### U ARFX #### [facility] [address] [place] [address] Benzodiazepines, Urine Not Detected Normal [facility] Comment on above: Performed By: #### U ARFX #### [facility] [address] [place] [address] Cannabinoids, Urine Not Detected Normal [facility] Comment on above: Performed By: #### U ARFX #### [facility] [address] [place] [address] Cocaine, Urine Not Detected Normal [facility] Comment on above: Performed By: #### U ARFX #### [facility] [address] [place] [address] Methadone, Urine Not Detected Normal [facility] Comment on above: Performed By: #### U ARFX #### [facility] [address] [place] [address] Opiates, Urine Not Detected Normal [facility] Comment on above: Performed By: #### U ARFX #### [facility] [address] [place] [address] PCP, Urine Not Detected Normal [facility] [...] 25 Performed By: #### U ARFX #### [facility] [address] [place] [address] HIV 1 Ab, Conf WBloton 09-18 HIV 1 Ab, Conf WBlot Negative Normal Negative [facility] Comment on above: Result Comment: HIV- 1 [...] Cellular and Tissue-Based Products (HCT/P). Performed by [employer], [address] [place] [id number] [email or web address], Robert Fraire MD - Lab. Director Performed By: #### U ARFX #### [facility] [address] [place] [address] Hemoglobin Identificationon 09-18-2018 Hemoglobin A2 2.8 % Normal [facility] Comment on above: Result Comment: HGB A2 values may be falsely elevated in the presence of HGB S Hemoglobin F 0.6 % Normal [facility] Hemoglobin mass conc (Bld) 96.6 % Normal [facility] Hemoglobin mass conc (Bld) SEE COMMENT Normal [facility] Comment on above: Result Comment: Norm al Hepatitis B Surface Antigeno n 09-18-2018 Hepatitis B Surface Antigen NONREACTIVE Normal NONREACTIVE [facility] Comment on above: Result Comment: Carrie ents receiving more than 5 mg/day of biotin may have interf in test results. A sample should be taken no sooner than eight after previous dose. Contact [phone] for additional infor Hepatitis C Antibody w/rfx t o Confirmon 09-18-2018 Hepatitis C Antibody NON-REACTIVE Normal NONREACTIVE [facility] Comment on above: Result Comment: Carrie ents receiving more than 5 mg/day of biotin may have interf in test results. A sample should be taken no sooner than eight after previous dose. Contact [phone] for additional infor Rubella Ab, IgGon 09-18-2018 Rubella Ab, IgG 16 IU/ML Normal [facility] Comment on above: Result Comment: REF VALUES NON-IMMUNE: < 5 EQUIVOCAL: 5-9 IMMUNE: >=10 Syphilis IgG w/Rflx toTiter, TP-PAon 09-18-2018 Syphilis IgG w/Rflx toTiter,TP-PA NON REACTIVE Normal NONREACTIVE [facility] Comment on above: Result Comment: Carrie ents receiving more than 5 mg/day of biotin may have interf in test results. A sample should be taken no sooner than eight after previous dose. Contact [phone] for additional infor TSHon 09-18-2018 Thyrotropin Qn 0.54 mU/L Normal 0.44-3.98 [facility] Comment on above: Performed By: #### U ARFX #### [facility] [address] [place] [address] Type and Screenon 09-18-2018 Group and Rh Positive Normal [facility] Comment on above: Performed By: #### T S3 #### [facility] [address] [place] [address] VZV Ab, IgGon 09-18-2018 VZV Ab, IgG Positive Normal NEGATIVE [facility] Comment on above: Result Comment: INTE RPRETATIVE [...] in serological assays. Vitamin D, 25 Hydroxyon 11-1 5-2018 Vitamin D, 25 Hydroxy 26 ng/mL Abnormal [facility] Comment on above: Result Comment: DEFI CIENCY <20 INSUFFICIENCY 20-29 OPTIMUM LEVEL 30-80 POSSIBLE TOXICITY >80 Performed By: #### U ARFX #### [facility] [address] [place] [address] Culture, Urine Bacterialon 1 11-09-2017 Culture, Urine Bacterial BILL#: [id number] : 89 AGE: SEX: Primitivo COLÓN SOURCE: URINE COLLECTED: 09/09/18 13:19 ANTIBIOTICS AT MISSY.: RECEIVED : 09/09/18 22:34 SITE: Unspecified R E S U L T S URINE CULTURE,BACTERIAL FINAL 09/10/18 15:13 NO SIGNIFICANT GROWTH. Normal [facility] Comment on above: Performed By: #### C XBUR #### [facility] [address] [place] [address] N. gonorrhoeae/C. trachomati s, Amplifiedon 09-09-2018 Chlamydia trachomatis, Amplified Negative Normal Negative [facility] Comment on above: Performed By: #### G CCHA #### [facility] [address] [place] [address] GC/CHLAM/TRICA Source Swab-Endocerv Normal [facility] Comment on above: Performed By: #### G CCHA #### [facility] [address] [place] [address] Neisseria gonorrhoeae, Amplified Negative Normal Negative [facility] Comment on above: Performed By: #### G CCHA #### [facility] [address] [place] [address] Urinalysis with Reflex Cultu reon 09-09-2018 Appearance Nom (U) Hazy Normal Clear [facility] Comment on above: Performed By: #### U ARFX #### [facility] [address] [place] [address] Ascorbic Acid Negative Normal Negative [facility] Comment on above: Performed By: #### U ARFX #### [facility] [address] [place] [address] Automated Urine Microscopy Performed Normal [facility] Comment on above: Performed By: #### U ARFX #### [facility] [address] [place] [address] Bacteria LM.HPF #/area (Urine sed) Few Normal None [facility] Comment on above: Performed By: #### U ARFX #### [facility] [address] [place] [address] Bilirubin mass conc Negative Normal Negative [facility] Comment on above: Performed By: #### U ARFX #### [facility] [address] [place] [address] Blood Negative Normal Negative [facility] Comment on above: Performed By: #### U ARFX #### [facility] [address] [place] [address] Color Nom (U) Yellow Normal [facility] Comment on above: Performed By: #### U ARFX #### [facility] [address] [place] [address] Glucose mass conc Negative Normal Negative [facility] Comment on above: Performed By: #### U ARFX #### [facility] [address] [place] [address] Ketones Ql (U) Negative Normal Negative [facility] Comment on above: Performed By: #### U ARFX #### [facility] [address] [place] [address] Leukocytes Esterase Large Abnormal Negative [facility] Comment on above: Performed By: #### U ARFX #### [facility] [address] [place] [address] Mucous Rare Normal None [facility] Comment on above: Performed By: #### U ARFX #### [facility] [address] [place] [address] Nitrite Ql (U) Negative Normal Negative [facility] Comment on above: Performed By: #### U ARFX #### [facility] [address] [place] [address] pH (Bld) 6.0 Normal 5.0-9.0 [facility] Comment on above: Performed By: #### U ARFX #### [facility] [address] [place] [address] Protein mass conc (U) Negative Normal Negative [facility] Comment on above: Performed By: #### U ARFX #### [facility] [address] [place] [address] RBC 5 /[HPF] Normal 0-3 [facility] Comment on above: Performed By: #### U ARFX #### [facility] [address] [place] [address] Specific gravity Relative Density (U) 1.019 Normal 1.003-1.035 [facility] Comment on above: Performed By: #### U ARFX #### [facility] [address] [place] [address] Squamous Epithelial Cells 12 /[HPF] Normal 0-5 [facility] Comment on above: Performed By: #### U ARFX #### [facility] [address] [place] [address] Urobilinogen Qn (U) 2.0 mg/dL Abnormal Negative [facility] Comment on above: Performed By: #### U ARFX #### [facility] [address] [place] [address] WBC 6 /[HPF] Normal 0-5 [facility] Comment on above: Performed By: #### U ARFX #### [facility] [address] [place] [address] Vaginal Pathogen DNAon 09-09 Estrada Vag DNA Probe Positive Abnormal Negative [facility] Comment on above: Performed By: #### V AGPA #### [facility] [address] [place] [address] Protein mass conc Positive Abnormal Negative [facility] Comment on above: Performed By: #### V AGPA #### [facility] [address] [place] [address] Trich Vag DNA Probe Positive Abnormal Negative [facility] Comment on above: Performed By: #### V AGPA #### [facility] [address] [place] [address] Culture, Urine Bacterialon 0 07-30-2018 Culture, Urine Bacterial BILL#: [id number] : 89 AGE: SEX: Primitivo MEDINA SOURCE: URINE COLLECTED: 07/30/18 17:03 ANTIBIOTICS AT MISSY.: RECEIVED : 07/30/18 22:34 SITE: Unspecified R E S U L T S URINE CULTURE,BACTERIAL FINAL 07/31/18 15:35 NO SIGNIFICANT GROWTH. Normal [facility] Comment on above: Performed By: #### C XBUR #### [facility] [address] [place] [address] N. gonorrhoeae/C. trachomati s, Amplifiedon 07-30-2018 Chlamydia trachomatis, Amplified Negative Normal Negative [facility] Comment on above: Performed By: #### G CCHA #### [facility] [address] [place] [address] GC/CHLAM/TRICA Source Urine Normal [facility] Comment on above: Performed By: #### G CCHA #### [facility] [address] [place] [address] Neisseria gonorrhoeae, Amplified Negative Normal Negative [facility] Comment on above: Performed By: #### G CCHA #### [facility] [address] [place] [address] Urinalysis with Reflex Cultu reon 07-30-2018 Appearance Nom (U) Clear Normal Clear [facility] Comment on above: Performed By: #### U ARFX #### [facility] [address] [place] [address] Ascorbic Acid Negative Normal Negative [facility] Comment on above: Performed By: #### U ARFX #### [facility] [address] [place] [address] Automated Urine Microscopy Performed Normal [facility] Comment on above: Performed By: #### U ARFX #### [facility] [address] [place] [address] Bacteria LM.HPF #/area (Urine sed) Rare Normal None [facility] Comment on above: Performed By: #### U ARFX #### [facility] [address] [place] [address] Bilirubin mass conc Negative Normal Negative [facility] Comment on above: Performed By: #### U ARFX #### [facility] [address] [place] [address] Blood Negative Normal Negative [facility] Comment on above: Performed By: #### U ARFX #### [facility] [address] [place] [address] Color Nom (U) Yellow Normal [facility] Comment on above: Performed By: #### U ARFX #### [facility] [address] [place] [address] Glucose mass conc Negative Normal Negative [facility] Comment on above: Performed By: #### U ARFX #### [facility] [address] [place] [address] Ketones Ql (U) Negative Normal Negative [facility] Comment on above: Performed By: #### U ARFX #### [facility] [address] [place] [address] Leukocytes Esterase Moderate Abnormal Negative [facility] Comment on above: Performed By: #### U ARFX #### [facility] [address] [place] [address] Mucous Rare Normal None [facility] Comment on above: Performed By: #### U ARFX #### [facility] [address] [place] [address] Nitrite Ql (U) Negative Normal Negative [facility] Comment on above: Performed By: #### U ARFX #### [facility] [address] [place] [address] pH (Bld) 6.0 Normal 5.0-9.0 [facility] Comment on above: Performed By: #### U ARFX #### [facility] [address] [place] [address] Protein mass conc (U) Negative Normal Negative [facility] Comment on above: Performed By: #### U ARFX #### [facility] [address] [place] [address] RBC 3 /[HPF] Normal 0-3 [facility] Comment on above: Performed By: #### U ARFX #### [facility] [address] [place] [address] Specific gravity Relative Density (U) 1.016 Normal 1.003-1.035 [facility] Comment on above: Performed By: #### U ARFX #### [facility] [address] [place] [address] Squamous Epithelial Cells 3 /[HPF] Normal 0-5 [facility] Comment on above: Performed By: #### U ARFX #### [facility] [address] [place] [address] Urobilinogen Qn (U) >=4.0 Abnormal Negative [facility] Comment on above: Performed By: #### U ARFX #### [facility] [address] [place] [address] WBC 16 /[HPF] Normal 0-5 [facility] Comment on above: Performed By: #### U ARFX #### [facility] [address] [place] [address] FOOT RT 3 OR MORE VWon 05-20 FOOT RT 3 OR MORE VW DATE OF EXAM: May 19 2018 11:20PM CLINICAL HISTORY/ Patient Name: JULIETTE HERNÁNDEZ STUDY: FOOT RT 3 OR MORE VW; 05/19/2018 11:20 pm INDICATION: Trauma. Pain COMPARISON: None. ACCESSION NUMBER(S): [id number] ORDERING CLINICIAN: LUIS CASTRO FINDINGS: Osseous structures and soft tissues appear normal. No fracture or dislocation is noted CONCLUSION: IMPRESSION: Normal right foot Normal [facility] Vital Signs Date Time Vital Sign Value Performing Clinician Facility 01-25-2025 17:54-0400 Body height 167.64 cm Óscar Velasquez PA-C Work Phone: [facility] 01-25-2025 17:54-0400 Body temperature 98.3 [degF] Ósacr Velasquez PA-C Work Phone: [facility] 01-25-2025 17:54-0400 Body weight 85 kg Óscar Velasquez PA-C Work Phone: [facility] 01-25-2025 17:54-0400 Diastolic blood pressure 65 mm[Hg] Óscar Velasquez PA-C Work Phone: [facility] 01-25-2025 17:54-0400 Heart rate 83 /min Óscar Velasquez PA-C Work Phone: [facility] 01-25-2025 17:54-0400 Respiratory rate 18 /min Óscar Velasquez PA-C Work Phone: [facility] 01-25-2025 17:54-0400 SaO2% (BldA) [Mass fraction] 100 % Óscar Velasquez PA-C Work Phone: [facility] 01-25-2025 17:54-0400 Systolic blood pressure 133 mm[Hg] Óscar Velasquez PA-C Work Phone: [facility] 02-21-2024 10:39-0400 Body height 167.6 cm Chacorta Erwin MD Work Phone: [facility] 02-21-2024 10:39-0400 Body mass index (BMI) [Ratio] 22.6 kg/m2 Chacorta Erwin MD Work Phone: [facility] 02-21-2024 10:39-0400 Body temperature 97.3 [degF] Chacorta Erwin MD Work Phone: [facility] 02-21-2024 10:39-0400 Body weight 63.5 kg Chacorta Erwin MD Work Phone: [facility] 02-21-2024 10:39-0400 Diastolic blood pressure 54 mm[Hg] Chacorta Erwin MD Work Phone: [facility] 02-21-2024 10:39-0400 Heart rate 64 /min Chacorta Erwin MD Work Phone: [facility] 02-21-2024 10:39-0400 Respiratory rate 16 /min Chacorta Erwin MD Work Phone: [facility] 02-21-2024 10:39-0400 SaO2% (BldA) [Mass fraction] 100 % Chacorta Erwin MD Work Phone: [facility] 02-21-2024 10:39-0400 Systolic blood pressure 104 mm[Hg] Chacorta Erwin MD Work Phone: [facility] 06-19-2023 23:30-0400 Diastolic blood pressure 63 mm[Hg] [employer] 06-19-2023 23:30-0400 Heart rate 83 /min [employer] 06-19-2023 23:30-0400 Respiratory rate 15 /min [employer] 06-19-2023 23:30-0400 SaO2% (BldA) [Mass fraction] 96 % [facility] [employer] 06-19-2023 23:30-0400 Systolic blood pressure 102 mm[Hg] [facility] [employer] 06-19-2023 21:44-0400 Body height 167.6 cm [facility] [employer] 06-19-2023 21:44-0400 Body mass index (BMI) [Ratio] 22.6 kg/m2 [employer] [facility] [employer] 06-19-2023 21:44-0400 Body temperature 98.01 [degF] [facility] [employer] 06-19-2023 21:44-0400 Body weight 63.5 kg [facility] [employer] 01-09-2023 16:18-0500 Body height 167.64 cm No PCP [facility] Work Phone: 01-09-2023 16:18-0500 Body mass index (BMI) [Ratio] 24.59 kg/m2 No PCP None [facility] Work Phone: 01-09-2023 16:18-0500 Body surface area Derived from formula 1.78 m2 No PCP [facility] Work Phone: 01-09-2023 16:18-0500 Body weight 69.12 kg No PCP None [facility] Work Phone: 01-09-2023 16:18-0500 Diastolic blood pressure 60 mm[Hg] No PCP None [facility] Work Phone: 01-09-2023 16:18-0500 Systolic blood pressure 116 mm[Hg] No PCP None [facility] Work Phone: 11-21-2022 05:37-0500 Diastolic blood pressure 53 mm[Hg] No Pcp Required [facility] 11-21-2022 05:37-0500 Heart rate 85 /min No Pcp Required [facility] 11-21-2022 05:37-0500 Respiratory rate 18 /min No Pcp Required [facility] 11-21-2022 05:37-0500 SaO2% (BldA) [Mass fraction] 100 % No Pcp Required [facility] 11-21-2022 05:37-0500 Systolic blood pressure 100 mm[Hg] No Pcp Required [facility] 11-21-2022 03:56-0500 Body height 167.6 cm No Pcp Required [facility] 11-21-2022 03:56-0500 Body temperature 97.7 [degF] No Pcp Required [facility] 11-21-2022 03:56-0500 Body weight 68.1 kg No Pcp Required [facility] 09-08-2022 22:01-0400 Diastolic blood pressure 61 mm[Hg] No Pcp Required [facility] 09-08-2022 22:01-0400 Heart rate 69 /min No Pcp Required [facility] 09-08-2022 22:01-0400 Respiratory rate 16 /min No Pcp Required [facility] 09-08-2022 22:01-0400 SaO2% (BldA) [Mass fraction] 100 % No Pcp Required [facility] 09-08-2022 22:01-0400 Systolic blood pressure 121 mm[Hg] No Pcp Required [facility] 09-08-2022 17:31-0400 Body height 167.6 cm No Pcp [facility] 09-08-2022 17:31-0400 Body temperature 98.24 [degF] No Pcp Required [facility] 09-08-2022 17:31-0400 Body weight 66 kg No P[facility] 06-26-2021 16:54-0400 Diastolic blood pressure 65 mm[Hg] No Pcp Required [facility] 06-26-2021 16:54-0400 Heart rate 70 /min No Pcp [facility] 06-26-2021 16:54-0400 Respiratory rate 16 /min No Pcp Required [facility] 06-26-2021 16:54-0400 SaO2% (BldA) [Mass fraction] 97 % No Pcp Required [facility] 06-26-2021 16:54-0400 Systolic blood pressure 112 mm[Hg] No Pcp Required [facility] 06-26-2021 11:14-0400 Body height 167.6 cm No Pcp Required [facility] 06-26-2021 11:14-0400 Body temperature 98.06 [degF] No Pcp Required [facility] 06-26-2021 11:14-0400 Body weight 71.9 kg No Pcp [facility] 10-03-2020 11:52-0500 BMI (Body Mass Index) 24.14 kg/m2 [facility] Work Phone: 10-03-2020 11:52-0500 Body Temperature 97 [degF] [facility] Work Phone: 10-03-2020 11:52-0500 Body weight 67.84 kg [facility] Work Phone: 10-03-2020 11:52-0500 BP Diastolic 76 mm[Hg] [facility] Work Phone: Comment on above: Location: E; Position: Sitting 10-03-2020 11:52-0500 BP Systolic 104 mm[Hg] Cally Meyer [facility] Work Phone: Comment on above: Location: E; Position: Sitting 10-03-2020 11:52-0500 BSA (Body Surface Area) 1.77 m2 Cally Meyer [facility] Work Phone: 10-03-2020 11:52-0500 Height 167.64 cm Cally Meyer [facility] Work Phone: 06-02-2020 14:04-0400 BMI (Body Mass Index) 22.76 kg/m2 Chica Wisdom [id number] [facility] Work Phone: 06-02-2020 14:04-0400 Body Temperature 98.1 [degF] Chica Wisdom [id number] [address] [facility] Work Phone: 06-02-2020 14:04-0400 Body weight 63.96 kg Chica Wisdom [id number] [address] [facility] Work Phone: 06-02-2020 14:04-0400 BP Diastolic 72 mm[Hg] Chica Wisdom [id number] [address] [facility] Work Phone: 06-02-2020 14:04-0400 BP Systolic 104 mm[Hg] Chica Wisdom [id number] [address] [facility] Work Phone: 06-02-2020 14:04-0400 BSA (Body Surface Area) 1.72 m2 Chica Wisdom [id number] [facility] [facility] Work Phone: 06-02-2020 14:04-0400 Pulse (Heart Rate) 60 /min Chica Wisdom [id number] [facility] [facility] Work Phone: 06-02-2020 14:04-0400 Pulse Oximetry 99 % Chica Wisdom [id number] [address] [facility] Work Phone: 06-02-2020 14:04-0400 Respiratory Rate 16 /min Chica Wisdom [id number] [address] [facility] Work Phone: Encounters Encounter Date Encounter Type Care Provider Facility Start: 03[facility]11[facility]20[facility]: 03-11-[facility] Evaluation and management of inpatient WOO Davidson [facility] Start: 03-11-2025 [facility] 03-11-[facility]25 Evaluation and management of inpatient WOO Davidson [facility] Start: 03-10-2025 Evaluation and management of inpatient WOO Davidson [facility] Start: 03-10-2025 Evaluation and management of inpatient WOO Davidson [facility] Start: 03-10-2025 Evaluation and management of inpatient WOO Davidson [facility] Start: 03-10-2025 Evaluation and management of inpatient WOO Davidson [facility] Start: 03-09-2025 Evaluation and management of inpatient HERI CHRIS [facility] Start: 03-09-2025 Evaluation and management of inpatient WOO Davidson [facility] Start: 03-08-2025 Evaluation and management of inpatient WOO Davidson [facility] Start: 03-06-2025 Evaluation and management of inpatient KAREN SAPP [facility] Start: 03-05-2025 Evaluation and management of inpatient [facility] Start: 03-05-2025 Evaluation and management of inpatient LIVE GILMAN [facility] Start: 03-05-2025 Evaluation and management of inpatient [facility] Start: 03-05-2025 End: 03-11-2025 Evaluation and management of inpatient JENNIFER HODGES [facility] Start: 01-25-2025 End: 01-25-2025 Emergency department patient visit Óscar Velasquez PA-C Work Phone: [facility] Work Phone: Start: 01-07-2025 Evaluation and management of inpatient NARINDER [facility] Start: 01-07-2025 [facility]: 01[facility]06[facility] Start[facility] 01-05-2025 Evaluation and management of inpatient ALECIA T [facility] Start: 01-05-2025 Evaluation and management of inpatient NARINDER [facility] Start: 01-05-2025 Evaluation and management of inpatient WOO Davidson [facility] Start: 01-04-2025 Evaluation and management of inpatient ALECIA T [facility] Start: 01-04-2025 Evaluation and management of inpatient WOO Davidson [facility] Start: 01-04-2025 Evaluation and management of inpatient WOO Davidson [facility] Start: 01-03-2025 Evaluation and management of inpatient WOO Davidson [facility] Start: 01-02-2025 Evaluation and management of inpatient ALECIA T [facility] Start: 01-02-2025 Evaluation and management [facility] Start: 01-02-2025 Evaluation and management of inpatient WOO Davidson [facility] Start: 01-02-2025 [facility] Start: 01-01-2025 Evaluation and management of inpatient ALECIA T [facility] Start: 01-01-2025 [facility] Start: 01-01-2025 Non-patient / Non-visit Óscar Velasquez PA-C Work Phone: [facility] Work Phone: Start: 01-01-2025 End: 01-07-2025 Evaluation and management of inpatient JENNIFER [facility] Start: 12-08-2024 End: 12-08-2024 ambulatory SHARIF CACHORROIVAN [facility] Start: 12-08-2024 End: 12-08-2024 Subsequent hospital visit by physician Sunny Lilly MD Work Phone: [facility] Start: 12-04-2024 End: 12-04-2024 ambulatory SHARIF CACHORRO [facility] Start: 12-04-2024 End: 12-04-2024 Subsequent hospital visit by physician Sunny Lilly MD Work Phone: [facility] Start: 10-14-2024 End: 10-14-2024 ambulatory SHARIF CACHORRO [facility] Start: 09-28-2024 End: 09-28-2024 ambulatory SHARIF CACHORRO [facility] Start: 09-28-2024 End: 09-28-2024 Subsequent hospital visit by physician Sunny Lilly MD Work Phone: [facility] Start: 05-26-2024 End: 05-26-2024 ambulatory SHARIF CACHORRO [facility] Start: 05-26-2024 End: 05-26-2024 Subsequent hospital visit by physician Sunny Lilly MD Work Phone: [facility] Start: 05-08-2024 End: 05-08-2024 ambulatory SHARIF CACHORRO [facility] Start: 05-04-2024 End: 05-04-2024 ambulatory [facility]ACHORRO [facility] Start: 04-24-2024 End: 04-24-2024 Emergency department patient visit [facility] Start: 02-21-2024 End: 02-21-2024 Emergency department patient visit NO ASSIGNED PCP [facility] Start: 02-21-2024 End: 02-21-2024 Emergency department patient visit Chacorta Erwin MD Work Phone: [facility] Comment on above: Trichomonas exposure (Primary Dx); Rash Start: 06-19-2023 End: 06-20-2023 Emergency department patient visit [facility]WSON [facility] Start: 06-19-2023 End: 06-20-2023 Emergency department patient visit [facility] ED Comment on above: Multiple drug overdo se, accidental or unintentional, initial encounter (Primary Dx) Start: 05-29-2023 End: 05-29-2023 Emergency department patient visit [facility] Start: 01-09-2023 Office outpatient vi sit 15 minutes No PCP [facility] Work Phone: Start: 01-09-2023 Patient encounter procedure No PCP None [facility] Work Phone: Start: 01-09-2023 ambulatory MD CALLY MEYER Facility:[id number] Start: 12-19-[address] Chacorta Ewrin Facility:[id number] Start: 11-22-2022 Patient encounter procedure No PCP [facility] Work Phone: Start: 11-22-[address] Chacorta Erwin Facility:[id number] Start: 11-21-2022 End: 11-21-2022 Emergency department [facility] ED 05 Start: 11-20-2022 End: 11-20-2022 Emergency department patient visit [facility] Super Track 04 Start: 10-08-2022 End: 10-08-2022 Emergency department patient visit [facility] Start: 09-08-2022 End: 09-08-2022 Emergency department patient visit [facility] ED 01 Start: 06-26-2021 End: 06-26-2021 Emergency department patient visit [facility] ED 25 Start: 10-03-2020 Patient encounter procedure Cally Meyer [facility] Work Phone: Start: 09-05-2020 Patient encounter procedure Cally Meyer [facility] Work Phone: Start: 06-10-2020 Patient encounter procedure Cally Meyer [facility] Work Phone: Start: 06-02-2020 Patient encounter procedure Chica Wisdom LJ-IIEB-Abxa [facility] Work Phone: Start: 10-26-2019 Patient encounter procedure Chica Wisdom MN-CIOQ-Ange [facility] Work Phone: Start: 08-25-2019 Patient encounter procedure Chica Wisdom AS-CDGC-Ygof [facility] Work Phone: Start: 07-16-2019 Patient encounter procedure Chica Wisdom ZS-IYZM-Bonn [facility] Work Phone: Start: 06-11-2019 Patient encounter procedure Chica Wisdom BT-DNYN-Bawj [facility] Work Phone: Start: 04-22-2019 Patient encounter procedure Chica Wisdom UU-BHQK-Jvmz [facility] Work Phone: Start: 01-19-2019 End: 01-21-2019 Evaluation and management of inpatient KEYSHA BAH Facility:[facility] Start: 01-15-2019 Patient encounter procedure Chica Wisdom FK-SSQS-Sgur [facility] Work Phone: Start: 01-08-2019 Patient encounter procedure Chica Wisdom OC-UBZQ-Oywl [facility] Work Phone: Start: 01-01-2019 Patient encounter procedure Chica Wisdom LK-DGKP-Wlpy [facility] Work Phone: Start: 12-25-2018 Patient encounter procedure KEYSHA BAH Facility:[facility] Start: 12-25-2018 Patient encounter procedure Chica Wisdom DG-RXOK-Jfes [facility] Work Phone: Start: 12-18-2018 Patient encounter procedure Chica Wisdom PW-TKXK-Ppth [facility] Work Phone: Start: 12-11-2018 End: 12-11-2018 Patient encounter procedure KEYSHA BAH Facility:[facility] Start: 12-04-2018 Patient encounter procedure Chica Camposa JQ-ESWG-Efbn [facility] Work Phone: Start: 12-01-2018 End: 12-01-2018 Patient encounter procedure KEYSHA WHITEUN Facility:[facility] Start: 11-27-2018 Patient encounter procedure Chica Camposa NI-YTOG-Nznp [facility] Work Phone: Start: 11-13-2018 Patient encounter procedure KEYSHA WHITEUN Facility:[facility] Start: 11-13-2018 Patient encounter procedure KEYSHA WHITEUN Facility:7 Start: 10-24-2018 Patient encounter procedure KEYSHA Dangelo GALUN Facility:[facility] Start: 10-16-2018 Patient encounter procedure KEYSHA Dangelo GALUN Facility:[facility] Start: 10-07-2018 Patient encounter procedure Chica Camposa HP-SHEV-Polz [facility] Work Phone: Start: 09-18-2018 Patient encounter procedure KEYSHA WHITEUN Facility:[facility] Start: 09-18-2018 Patient encounter procedure KEYSHA WHITEUN Facility:7 Start: 09-18-2018 Patient encounter procedure Chica Camposa ES-JFNZ-Rpax [facility] Work Phone: Start: 09-09-2018 End: 09-09-2018 Emergency department patient visit NO FAMILY DOCTOR NO FAMILY DOCTOR Facility:[facility] Start: 07-30-2018 End: 07-30-2018 Emergency department patient visit NO FAMILY DOCTOR NO FAMILY DOCTOR Facility:[facility] Start: 05-20-2018 End: 05-20-2018 Emergency department patient visit BRAULIO LILLY Facility:[facility] Menarche No PCP [facility] Work Phone: Patient encounter status No PCP None [facility] Work Phone: Procedures Date Procedure Procedure Detail Performing Clinician Start: 12-08-2024 Comprehensive metabo lic panel Sharif Bradyer HYDRAULIC MECHANIC - ECHO VASCULAR TECHNOLOGIST Work Phone: Start: 12-08-2024 Hepatitis b surf ant ibody hbsab Sharif Ivory HYDRAULIC MECHANIC - ECHO VASCULAR TECHNOLOGIST Work Phone: Start: 12-08-2024 T. PALLIDUM AB Sharif R justinker HYDRAULIC MECHANIC - ECHO VASCULAR TECHNOLOGIST Work Phone: Start: 12-04-2024 Smr prim src wet cecilia nt nfct agt Sharif Bradyer HYDRAULIC MECHANIC - ECHO VASCULAR TECHNOLOGIST Work Phone: Start: 09-28-2024 Smr prim src wet cecilia nt nfct agt Sharif Ivory HYDRAULIC MECHANIC - ECHO VASCULAR TECHNOLOGIST Work Phone: Start: 05-26-2024 Smr prim src wet cecilia nt nfct agt Sharif Ivory HYDRAULIC MECHANIC - ECHO VASCULAR TECHNOLOGIST Work Phone: Start: 02-21-2024 C. TRACHOMATIS + N. GONORRHOEAE, AMPLIFIED NO GENERIC PROVIDER Start: 02-21-2024 TRICH VAGINALIS, AMPLIFIED NO GENERIC PROVIDER Start: 06-19-2023 Ecg routine ecg w/le ast 12 lds w/i&r Jose Littlejohn PA-C Work Phone: Start: 09-08-2022 End: 09-08-2022 EKG impression Kirk Roldan Start: 09-02-2020 Iadna chlamydia trac homatis amplified probe tq Cally Sherbren Start: 09-02-2020 Trichomonas vaginali s [Presence] in Cervix by Wet preparation Cally Meyer Start: 01-19-2019 Antibody screen BRAULIO LILLY Comment on above: Performed By: #### U ARFX #### [facility] [address] [place] [address] Start: 09-18-2018 Antibody screen BRAULIO LILLY Comment on above: Performed By: #### T S3 #### [facility] [address] [place] [address] Bilateral tubal ligation No PCP None Dilation and curettage Claudia Wisdom Plan of Treatment Date Care Activity Detail Author Start: 2054 RSV patient s and/or patients aged 60+ years (1 - 1-dose 60+ series) RSV patients and/or patients aged 60+ years (1 - 1-dose 60+ series) [facility] Start: 2044 Zoster Vaccines (1 o f 2) Zoster Vaccines (1 of 2) [facility] Start: 11-13-2028 DTaP/Tdap/Td vaccine (3 - Td or Tdap) DTaP/Tdap/Td vaccine (3 - Td or Tdap) [facility] Start: 11-13-2028 DTaP/Tdap/Td Vaccine s (3 - Td or Tdap) DTaP/Tdap/Td Vaccines (3 - Td or Tdap) [facility] Start: 07-05-2024 COVID-19 Vaccine ( season) COVID-19 Vaccine ( season) [facility] Start: 07-05-2024 Influenza vaccination Influenz a Vaccine (Season Ended) [facility] Start: 2024 Screening for malign ant neoplasm of cervix [facility] Start: 06-04-2024 Influenza vaccination Flu vaccine (# 1) [facility] Start: 07-05-2023 COVID-19 Vaccine ( season) COVID-19 Vaccine ( season) [facility] Start: 06-04-2023 Influenza vaccination Flu vaccine (# 1) [facility] Start: 02-20-2023 FUV, Provider: Cally Meyer, Status: Pen, Time: 9:15 AM FUV, Provider: Cally Meyer, Status: Pen, Time: 9:15 AM [facility] Work Phone: Start: 12-19-2022 FUV, Provider: Chacorta Erwin, Status: Pen, Time: 2:45 PM FUV, Provider: Chacorta Erwin, Status: Pen, Time: 2:45 [facility] [place] Work Phone: Start: 09-08-2022 Syncope Syncope Date: 08-Sep-2022 [facility] Start: 2015 Screening for malign ant neoplasm of cervix [facility] Start: 2013 Hepatitis B vaccine (1 of 3 - 19+ 3-dose series) Hepatitis B vaccine (1 of 3 - 19+ 3-dose series) [facility] Start: 2013 Hepatitis B Vaccines (1 of 3 - 19+ 3-dose series) Hepatitis B Vaccines (1 of 3 - 19+ 3-dose series) [facility] Start: 2012 Hepatitis C screening B [facility] Start: 2009 HIV screening HIV screen [facility] Start: 2007 Varicella vaccination Varicell a Vaccines (1 of 2 - 13+ 2-dose series) [facility] Start: 2007 Varicella vaccine (1 of 2 - 13+ 2-dose series) Varicella vaccine (1 of 2 - 13+ 2-dose series) [facility] Start: 2006 Depression Screen Depression Screen [facility] Start: 1995 MMR Vaccines (1 of 1 - Standard series) MMR Vaccines (1 of 1 - Standard series) [facility] Start: 1995 Varicella vaccine (1 of 2 - 2-dose childhood series) Varicella vaccine (1 of 2 - 2-dose childhood series) [facility] Start: 01-01-1995 COVID-19 Vaccine (#1) COVID-19 Vacci ne (#1) [facility] Start: 1994 Hepatitis B vaccine (1 of 3 - 3-dose series) Hepatitis B vaccine (1 of 3 - 3-dose series) [facility] Start: 1994 HIV screening HIV Screening [facility] Start: 1994 Lipid panel Lipid Panel [facility] Start: 1994 Yearly Adult Physical Yearly Adult P hysical [facility] C.trachomatis N.gonorrhoeae DNA C.trachomatis N.gonorrhoeae DNA Microbiology Routine 09/28/2024 6:55 AM EST [employer] Work Phone: C.trachomatis N.gonorrhoeae DNA C.trachomatis N.gonorrhoeae DNA Microbiology Routine 12/04/2024 7:45 AM EST [employer] Work Phone: End: 02-21-2024 Chlamydia trachomatis and Neisseria gonorrhoeae DNA [Identifier] in Unspecified specimen by JOSE R with probe detection [facility] Work Phone: Comment on above: Once (Lab) for 1 Occ urrences starting 02/21/2024 until 02/21/2024 EKG 12 Lead EKG 12 Lead ECG STAT 06/19/2023 9:49 PM EDT [employer] Work Phone: End: 12-08-2024 Hepatitis C RNA, quantitative, PCR [employer] Work Phone: Comment on above: Once for 1 Occurrenc es starting 12/08/2024 until 12/08/2024 Patient Education Dental pain - ED discharge instructions [facility] Work Phone: Patient referral [facility] Work Phone: End: 02-21-2024 Trichomonas vaginalis rRNA [Presence] in Unspecified specimen by JOSE R with probe detection [facility] Work Phone: Comment on above: Once (Lab) for 1 Occ urrences starting 02/21/2024 until 02/21/2024 Immunizations Immunization Date Immunization Notes Care Provider Tia johnson 11-13-2018 tetanus toxoid, redu wilson diphtheria toxoid, and acellular pertussis vaccine, adsorbed Chica Wisdom ZI-PATN-Yoza [facility] Work Phone: Comment on above: Series: 08-05-2015 influenza virus vacc ine, unspecified formulation No PCP [facility] Work Phone: Comment on above: Series: 08-05-2015 influenza, seasonal, injectable Chica Wisdom RI-[id number]-Axpm [facility] Work Phone: 08-02-2015 tetanus toxoid, redu wilson diphtheria toxoid, and acellular pertussis vaccine, adsorbed Chica Wisdom [id number]-[id number] [address] Work Phone: Comment on above: Series: Payers Date Payer Category Payer Self-pay 2019 Unknown [id number] 2019 Unknown 2019 Unknown [id number] 1994 Unknown [id number] 2.16.8 40.1.513614.3.579.2.355 1994 Unknown [id number] 2.16.8 40.1.324774.3.579.2.355 1994 Unknown [id number] 2.16.8 40.1.931081.3.579.2.355 1994 Unknown [id number] 2.16.8 40.1.313239.3.579.2.355 1994 Unknown [id number] 2.16.8 40.1.583687.3.579.2.355 1994 Unknown [id number] 2.16.8 40.1.792022.3.579.2.355 1994 Unknown [id number] 2.16.8 40.1.598228.3.579.2.355 1994 Unknown [id number] 2.16.8 40.1.723336.3.579.2.355 1994 Unknown [id number] 2.16.8 40.1.342493.3.579.2.355 1994 Unknown [id number] 2.16.8 40.1.480978.3.579.2.355 1994 Unknown [id number] 2.16.8 40.1.616838.3.579.2.355 1994 Unknown [id number] 2.16.8 40.1.695473.3.579.2.355 1994 Unknown [id number] 2.16.8 40.1.345979.3.579.2.355 1994 Unknown [id number] 2.16.8 40.1.025158.3.579.2.1068 1994 Unknown [id number] 2.16.8 40.1.189773.3.579.2.1068 1994 Unknown [id number] 2.16.8 40.1.025364.3.579.2.1068 1994 Unknown [id number] 2.16.8 40.1.289536.3.579.2.1068 1994 Unknown [id number] 2.16.8 40.1.072865.3.579.2.1068 1994 Unknown [id number] 2.16. 840.1.506804.3.579.2.356 1994 Unknown [id number] 2.16.8 40.1.633432.3.579.2.182 1994 Unknown [id number] 2.16.8 40.1.135375.3.579.2.182 1994 Unknown [id number] 2.16.8 40.1.798648.3.579.2.182 1994 Unknown [id number] 2.16.84 0.1.455339.3.579.2.1246 1994 Unknown [id number] 2.16.8 40.1.081725.3.579.2.173 1994 Unknown [id number] 2.16.8 40.1.621209.3.579.2.173 1994 Unknown [id number] 2.16.8 40.1.824254.3.579.2.173 1994 Unknown [id number] 2.16.8 40.1.836903.3.579.2.173 1994 Unknown [id number] 2.16.8 40.1.330992.3.579.2.173 1994 Unknown [id number] 2.16.8 40.1.973296.3.579.2.173 1994 Unknown [id number] 2.16.8 40.1.446428.3.579.2.173 1994 Unknown [id number] 2.16.8 40.1.236637.3.579.2.173 Unknown [id number] 2.16.8 40.1.458651.3.579.2.531 Social History Date Type Detail Facility Assertion Tobacco smoking consumption unknown (finding) [id number] [facility] Work Phone: Tobacco smoking consumption unknown [facility] Start: 04-24-2024 Caffeine use Caffeine use [facility] Work Phone: Start: 10-08-2022 End: 01-25-2025 Tobacco smoking status NHIS Never smoked tobacco [employer] Start: 10-08-2022 End: 02-21-2024 Tobacco use and exposure Smokeless tobacco non-user [employer] Start: 10-08-2022 End: 04-24-2024 Alcohol intake Current drinker of alcohol (finding) [employer] Start: 06-20-2023 History SDOH Alcohol Frequency 3 [employer] Start: 06-20-2023 History SDOH Alcohol Std Drinks 2 [employer] Start: 1995 Sex Assigned At Not on file [facility] [employer] Start: 02-21-2024 Alcoholic beverage intake Lifetime non-drinker (finding) [facility] Work Phone: Start: 04-24-2024 Gender identity Not on file [facility] Work Phone: Start: 02-11-2024 End: 02-21-2024 Exposure to SARS-CoV-2 (event) Not sure [facility] Work Phone: How often to you hav e a drink containing alcohol? Never BON [employer] How many standard drinks containing alcohol do you have on a typical day? Patient does not drink [employer] Start: 01-25-2025 Sex Female (finding) [facility] Start: 1995 Sex Assigned At Female F [facility] Medical Equipment Procedure Code Equipment Code Equipment Original Text Equipment Identifier Dates Clip, [place], Tubal, Rudiie Case [id number] Start: 06-18-2019 Comment on above: Description: Convert ed from [facility]. Please see archived information for full log information. Functional Status Date Assessment Result Facility NEGATED: Highlighted row Functional performance Functional status health issues are not documented Disease [id number] [facility] Work Phone: Mental Status Date Assessment Result Facility NEGATED: Highlighted row Cognitive function [Interpretation] Cognitive status health issues are not documented Disease [id number] [facility] Work Phone: Clinical Notes 07-15-2021 to 03-11-2025 BENNY Mckinley 02/21/2024 10:38 AM EDTMBENNY Mistry 02/21/2024 10:38 AM EDT Note Date & Type Note Facility 03-11-2025 Note Cardiothoracic Surge ry Chest Tube Removal Procedure Note Date Performed: Procedure Assistant To The Dean: Woo Silva NP, Dr. Velázquez bedside and present. Procedure Detail: Patient had right-sided chest tube placed for s/p right sided VATS with mechanical pleurodesis . Patient denied having any chest pain or shortness of breath. Chest x-ray reviewed that showed stable right apical PTX while chest tube had been clamped for 4 hours. CXR reviewed personally by Dr. Velázquez, therefore the decision was made to remove the chest tube. Chest tube was placed to -40mmHG continuous suction for 1 minute and then re-clamped. Adhesive tapes and sutures were removed. The chest tube insertion site was covered with Vaseline gauze. Following inspiration, patient performed a Valsalva maneuver and the chest tube was removed with simultaneous covering with Vaseline and 4 x 4 gauzes. Patient tolerated procedure well without any immediate complications. Patient was advised to avoid any heavy lifting, straining, and to treat cough or constipation to avoid any recurrence. CXR ordered. Complications: No immediate complications, patient tolerated the procedure well. To reach Cardiothoracic Surgery Inpatient from 8am-4pm call Ascom #[phone]. Only use [employer] chat for general questions. If unable to reach Ascom Number call hospital heel washer stringing machine operator for Cardiothoracic Provider Bun Panner. Cardiothoracic Surgery outpatient Office Number [phone]. Cardiothoracic Surgery outpatient . [facility] 03-11-2025 Note 03/11/25 1059 Admission Assessment Questions Verify insurance with patient Yes Do you understand medical disease or what brought you into the hospital? Yes Who is your current PCP? Millicent Hudson CNP Can I schedule a follow up appointment for you at the time of discharge? Yes Do you understand why you are taking your current medications? Yes Are you taking your medications as prescribed? No (Not prescribed any) Did patient provide teach back? No Pharmacy Bedside Delivery Status Interested Does the patient have a case mgr assigned to them through their insurance? No Living Arrangement (Current/Prior to Hospitalization) Other (Comment) (Lives in a 6 month transitional housing, [facility] program. [facility] in [place], [place] Does the patient have history of HHC or SNF? No Assistive Device Not applicable Patient's goal for discharge Back to [facility] in [place]. Transitional housing. Was patient reminded that goal for discharge is 11am? No Does the patient have transportation at discharge? Yes Type of Residence Other (Comment) (transitional housing. [place]) Is PT/OT appropriate? No Is PT/OT ordered? No Is SW consult appropriate? No Is SW consult ordered? No Do you understand the benefits of MyChart? Yes Were you able to send link and activate MyChart? MyChart already active [facility] 03-11-2025 Note Respiratory Progress Note Patient Name: Juliette Hernández : 1995 Today's Date: 03/11/2025 XR chest 1 view Result Date: 03/11/2025 Stable positioning of right chest tube. Minimal persistent pneumothorax measuring approximately 2 mm. Electronically signed: Guy Dickinson MD. XR chest 1 view Result Date: 03/10/2025 1. Right apical pneumothorax measuring approximately 1.6 cm is in the right apex, not significantly changed. Right chest tube is stable in position. 2. Hazy opacity overlying the medial right lung apex, nonspecific but most likely atelectasis. Electronically signed: Medhat Peralta. XR chest 2 views Result Date: 03/10/2025 FINDINGS/IMPRESSION: Right apical pneumothorax, 1.6 cm. Unchanged right apical chest tube. No left pneumothorax. No sizable pleural effusion. Nonenlarged heart. Electronically signed: Shay Mosher MD. XR chest 1 view Result Date: 03/10/2025 FINDINGS/IMPRESSION: Right apical pneumothorax, 1 cm Unchanged right apical chest tube. No left pneumothorax. No new or growing airspace opacity. Nonenlarged heart. Electronically signed: Shay Mosher MD. The findings from the last RT Protocol Assessment were as follows: Bronchodilator Assessment Grid RR: Less than 20 (Level 1) Dyspnea: Periodic SOB Breath Sounds: Clear Resp History: None Oxygen to keep SpO2 >/= 92%: Room air or baseline O2 Peak Flow: N/A Level: Level 1 Aerosolized bronchodilator medication orders and frequency have been revised according to the Respiratory Care Clinical Practice Guidelines. Patient to remain on home therapy: As at home reconcile order with home meds if pulmonary status is stable. Level 1: Every 4 hours PRN for wheezing via nebulizer. Level 2: TID daily and Q4 PRN for wheezing. Level 3: QID and Q4 PRN as needed for wheezing. Level 4: Every 4 hours and as needed for wheezing. Level 5: Stat nebulizer time one and contact prescriber for frequency change. Note - The frequency level of therapy will not be lower than the frequency of home therapy as listed on the medication reconciliation record unless specifically ordered by the prescriber. Identify care plan and goals of therapy and perform ongoing clinical assessment to determine appropriateness, benefit, and improvement during the course of therapy. Patient will be re-evaluated every 24 hours. Will change aerosols to prn per protocol Jordana Ta, STEWARDESSES TEACHER 03/11/2025 [facility] 03-11-2025 Note Cardiothoracic Surge ry Progress Note 03/11/2025 Room: [address] [place] [address] Subjective 29-year-old female with history of spontaneous pneumothorax of the right lung. The initial pneumothorax was in December and she was treated with chest tube decompression and catheter pleurodesis with doxycycline in January,. She presented to the emergency department in [place] on 03/05/25 and was recommended for transfer to [facility] for surgical evaluation. Upon arrival to [facility] she was in stable condition with minimal chest discomfort. No shortness of breath or supplemental oxygen needs. Pulmonology team placed a right chest tube with good results. She was evaluated by the CT surgery team and we recommended right thoracoscopy with decortication and mechanical pleurodesis. She underwent the following surgical procedure on 03/08/2025: RIGHT VATS, APICAL BLEB RESECTION, MECHANICAL PLEURODESIS. She tolerated the procedure well. There were no complications. She was taken to the surgical ICU postoperatively. 03/09/2025: POD #1. No acute events overnight. Pain controlled with current pain regimen. No difficulty with transfers and ambulation. Denies dizziness lightheadedness. No abdominal pain, nausea or vomiting. Tolerating regular diet. No numbness, tingling, or weakness of bilateral upper or lower extremities. No fever or chills. Blood pressure and heart rate remain in stable. Patient is doing well. 03/10/2025: POD #2. No events overnight. Chest tube clamped at 0730 am, tolerating well. Denies SOB. Helped to beside commode and endorsed bowel movement. Minimal output from chest tube overnight. Remains on room air. Pain well controlled. Denies fevers or chills. Chest tube site and surgical incision intact. 03/11/2025: POD #3. Yesterday attempted to clamp chest tube, small right apical PTX seen. Patient remained asymptomatic. Chest tube placed to suction overnight. Placed on water seal this morning at 5am and CXR repeated, showing stable small right apical PTX. Issues with chest tube site pain overnight. Denies SOB, fevers or chills. Ambulating in room with minimal assistance. Objective Patient Vitals for the past 24 hrs: BP Temp Temp src Pulse Resp SpO2 Weight 03/11/25 0521 -- -- -- -- -- -- 84.9 kg (187 lb 3.2 oz) 03/10/25 2331 115/54 35.9 ???C (96.6 ???F) Temporal 80 10 97 % -- 03/10/252011 -- -- -- 77 14 98 % -- 03/10/25 1946 125/59 35.3 ???C (95.5 ???F) Temporal 64 21 98 % -- 03/10/25 1338 -- -- -- 64 16 99 % -- 03/10/25 1130 108/56 36.5 ???C (97.7 ???F) Temporal 82 14 98 % -- 03/10/25 1015 115/59 36.5 ???C (97.7 ???F) Temporal 76 18 96 % -- Physical Exam Constitutional: General: She is not [...] Breath sounds: No wheezing or rales. Comments: Room Air, SaO2 100%. Right axillary chest tube is in place. On water seal. There is no airleak. Serosanguineous drainage. Occlusive dressing is clean and dry. No underlying crepitus. Chest tube output: Past 24 hours: 100 mL Abdominal: General: There is no distension. Palpations: Abdomen is soft. Musculoskeletal: General: No swelling or tenderness. Normal range of motion. Cervical back: Normal range of motion. Skin: General: Skin is warm and dry. Capillary Refill: Capillary refill takes less than 2 seconds. Coloration: Skin is not jaundiced or pale. Comments: Right thoracotomy incision is well-approximated without erythema or drainage. No warmth. There is a small amount of incisional swelling, but no underlying fluctuance or hematoma. Appearance is appropriate given postoperative timeframe. Occlusive dressing is in place, clean and dry. Neurological: General: No focal deficit present. Mental Status: She is alert and oriented to person, place, and time. Psychiatric: Mood and Affect: Mood normal. Behavior: Behavior normal. Lab Results Component Value Date NA 137 03/11/2025 K 4.2 03/11/2025 CL 103 03/11/2025 ANIONGAP 12 03/11/2025 BUN 20 03/11/2025 CREATININE 0.48 (L) 03/11/2025 CALCIUM 8.5 (L) 03/11/2025 MG 1.9 03/11/2025 Lab Results Component Value Date BILITOT 0.5 01/01/2025 ALKPHOS 65 01/01/2025 AST 21 01/01/2025 ALT 15 01/01/2025 PROT 6.6 01/01/2025 ALBUMIN 4.0 01/01/2025 Lab Results Component Value Date WBC 5.02 03/11/2025 RBC 4.02 03/11/2025 HGB 10.4 (L) 03/11/2025 HCT 33.2 (L) 03/11/2025 PLT 296 03/11/2025 NRBC 0.0 01/06/2025 XR chest 1 view Result Date: 03/11/2025 Stable positioning of right chest tube. Minimal persistent pneumothorax measuring approximately 2 mm. Electronically sig (more content not included)... [facility] 03-10-2025 Note Respiratory Progress Note Patient Name: Juliette Hernández : 1995 Today's Date: 03/10/2025 XR chest 1 view Result Date: 03/09/2025 No significant change. Electronically signed: Keysha Casas. The findings from the last RT Protocol Assessment were as follows: Bronchodilator Assessment Grid RR: Less than 20 (Level 1) Dyspnea: No SOB Breath Sounds: Diminished and/or faint wheezes Resp History: None Oxygen to keep SpO2 >/= 92%: Room air or baseline O2 Peak Flow: N/A Level: Level 1 Aerosolized bronchodilator medication orders and frequency have been revised according to the Respiratory Care Clinical Practice Guidelines. Patient to remain on home therapy: As at home reconcile order with home meds if pulmonary status is stable. Level 1: Every 4 hours PRN for wheezing via nebulizer. Level 2: TID daily and Q4 PRN for wheezing. Level 3: QID and Q4 PRN as needed for wheezing. Level 4: Every 4 hours and as needed for wheezing. Level 5: Stat nebulizer time one and contact prescriber for frequency change. Note - The frequency level of therapy will not be lower than the frequency of home therapy as listed on the medication reconciliation record unless specifically ordered by the prescriber. Identify care plan and goals of therapy and perform ongoing clinical assessment to determine appropriateness, benefit, and improvement during the course of therapy. Patient will be re-evaluated every 24 hours. Patient likes the aerosol treatments and would like to continue to receive them. Jordana Ta, [employer] TE[employer] 03/10/2025 [facility] 03-10-2025 Note Cardiothoracic Surge ry Progress Note 03/10/2025 Room: [address] [place] [address] Subjective 29-year-old female with history of spontaneous pneumothorax of the right lung. The initial pneumothorax was in December and she was treated with chest tube decompression and catheter pleurodesis with doxycycline in January,. She presented to the emergency department in [place] on 03/05/25 and was recommended for transfer to [facility] for surgical evaluation. Upon arrival to [facility] she was in stable condition with minimal chest discomfort. No shortness of breath or supplemental oxygen needs. Pulmonology team placed a right chest tube with good results. She was evaluated by the CT surgery team and we recommended right thoracoscopy with decortication and mechanical pleurodesis. She underwent the following surgical procedure on 03/08/2025: RIGHT VATS, APICAL BLEB RESECTION, MECHANICAL PLEURODESIS. She tolerated the procedure well. There were no complications. She was taken to the surgical ICU postoperatively. 03/09/2025: POD #1. No acute events overnight. Pain controlled with current pain regimen. No difficulty with transfers and ambulation. Denies dizziness lightheadedness. No abdominal pain, nausea or vomiting. Tolerating regular diet. No numbness, tingling, or weakness of bilateral upper or lower extremities. No fever or chills. Blood pressure and heart rate remain in stable. Patient is doing well. 03/10/2025: POD #2. No events overnight. Chest tube clamped at 0730 am, tolerating well. Denies SOB. Helped to beside commode and endorsed bowel movement. Minimal output from chest tube overnight. Remains on room air. Pain well controlled. Denies fevers or chills. Chest tube site and surgical incision intact. Objective Patient Vitals for the past 24 hrs: BP Temp Temp src Pulse Resp SpO2 Weight 03/10/25 0522 -- -- -- -- -- -- 83.6 kg (184 lb 4.9 oz) 03/10/25 0408 112/60 36.1 ???C (97 ???F) Temporal 62 14 97 % -- 03/10/25 0000 110/59 36.2 ???C (97.2 ???F) Temporal 66 16 97 % -- 03/09/25 2000 102/51 36.2 ???C (97.2 ???F) Temporal 84 12 100 % -- 03/09/251951 -- -- -- 71 20 98 % -- 03/09/25 1950 -- -- -- 71 -- -- -- 03/09/25 1800 100/51 -- -- 67 17 96 % -- 03/09/25 1700 103/55 -- -- 90 16 97 % -- 03/09/25 1600 112/57 36.7 ???C (98.1 ???F) Oral 75 17 98 % -- 03/09/25 1507 (!) 108/47 -- -- 78 21 96 % -- 03/09/25 1300 108/54 -- -- 72 21 96 % -- 03/09/25 1200 97/55 36.7 ???C (98.1 ???F) Oral 70 16 99 % -- 03/09/25 1129 105/61 -- -- 69 15 99 % -- 03/09/25 1100 -- -- -- 78 20 100 % -- 03/09/25 1000 114/59 -- -- 82 20 98 % -- 03/09/25 0907 107/65 -- -- 70 21 100 % -- 03/09/25 0800 100/71 36.6 ???C (97.9 ???F) Oral 73 15 100 % -- Physical Exam Constitutional: General: She is not [...] Breath sounds: No wheezing or rales. Comments: Room Air, SaO2 100%. Right axillary chest tube is in place. Currently to clamped. There is no airleak. Serosanguineous drainage. Occlusive dressing is clean and dry. No underlying crepitus. Chest tube output: Past 12 hours: 20 mL Past 24 hours: 24 mL Abdominal: General: There is no distension. Palpations: Abdomen is soft. Musculoskeletal: General: No swelling or tenderness. Normal range of motion. Cervical back: Normal range of motion. Skin: General: Skin is warm and dry. Capillary Refill: Capillary refill takes less than 2 seconds. Coloration: Skin is not jaundiced or pale. Comments: Right thoracotomy incision is well-approximated without erythema or drainage. No warmth. There is a small amount of incisional swelling, but no underlying fluctuance or hematoma. Appearance is appropriate given postoperative timeframe. Occlusive dressing is in place, clean and dry. Neurological: General: No focal deficit present. Mental Status: She is alert and oriented to person, place, and time. Psychiatric: Mood and Affect: Mood normal. Behavior: Behavior normal. Lab Results Component Value Date NA 138 03/10/2025 K 4.0 03/10/2025 CL 103 03/10/2025 ANIONGAP 11 03/10/2025 BUN 24 03/10/2025 CREATININE 0.49 (L) 03/10/2025 CALCIUM 8.6 03/10/2025 MG 1.9 03/10/2025 Lab Results Component Value Date BILITOT 0.5 01/01/2025 ALKPHOS 65 01/01/2025 AST 21 01/01/2025 ALT 15 01/01/2025 PROT 6.6 01/01/2025 ALBUMIN 4.0 01/01/2025 Lab Results Component Value Date WBC 6.55 03/10/2025 RBC 3.79 (L) 03/10/2025 HGB 10.1 (L) 03/10/2025 HCT 31.7 (L) 03/10/2025 PLT 316 03/10/2025 NRBC 0.0 01/06/2025 XR chest 1 view Result Date: 03/10/2025 Impression: (more content not included)... 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 No (friend) Met with pt to follow up with DC planning. OT recommends home, await PT. Pt plans to return home and has no needs or concerns. Pt will have a friend transport home upon DC. [facility] 03-09-2025 Note Physical Therapy Physical Therapy Evaluation Patient Name: Juliette Hernández : 1995 Today's Date: 03/09/2025 Start Time: 1048 Stop Time: 1105 Time Calculation (min): 17 min PT Evaluation Time Entry PT Evaluation (Low) Time Entry: 17 General Subjective: RN approved PT session and OOB activity this date. In chair upon arrival, agreeable to session. Upon completion, patient left in the chair with aurelio light within reach, RN aware Patient Summary: Patient is a 29 y/o female presenting from [facility] with recurrent pneumothorax, underwent R VATS 03/08/25. Patient Active Problem List Diagnosis Spontaneous pneumothorax Heart murmur, aortic History of substance dependence (CMS/HCC) Anxiety and depression Recurrent pneumothorax Postoperative anemia due to acute blood loss Atelectasis, bilateral Past Medical History: Diagnosis Date Pneumothorax Past Surgical History: Procedure Laterality Date TUBAL LIGATION Precautions Precautions Medical Precautions: chest tube, telemetry Pain Pain Assessment Pain Assessment: 0-10 Pain Score: 5 - Moderate pain Pain Type: Acute pain Pain Location: Rib cage Pain Orientation: Right Cognition Cognition Overall Cognitive Status: Within Functional Limits Arousal/Alertness: Appropriate responses to stimuli Orientation Level: Oriented X4 Following Commands: Follows all commands and directions without difficulty General Assessment General Assessment Hearing: WFL Home Living Home Living Type of Home: Apartment Lives With: Alone Home Adaptive Equipment: None Home Layout: One level Home Access: Level entry Bathroom Shower/Tub: Tub/shower unit Bathroom Toilet: Standard Bathroom Equipment: None Prior Level of Function Prior Function Level of Centre: Independent with ADLs and functional transfers, Independent with homemaking with ambulation Prior Functional Mobility: Independent without device ADL Assistance: Independent Homemaking Assistance: Independent Vision Basic Assessment Vision - Basic Assessment Current Vision: Wears contacts, Wears glasses all the time Vision - Complex General Assessments Activity Tolerance Endurance: Stage IV Sensation Light Touch: No apparent deficits Coordination Movements are Fluid and Coordinated: Yes Postural Control Postural Control: Within Functional Limits Static Sitting Balance Static Sitting-Balance Support: Feet supported Static Sitting-Level of Assistance: Independent Dynamic Sitting Balance Dynamic Sitting-Balance Support: Feet supported, Right upper extremity supported, Left upper extremity supported Dynamic Sitting-Balance: Forward lean, Lateral lean Dynamic Sitting Balance-Level of Assistance: Independent Static Standing Balance Static Standing-Level of Assistance: Independent Dynamic Standing Balance Dynamic Standing-Balance Support: No upper extremity supported Dynamic Standing Balance-Level of Assistance: Independent Functional Assessments Bed Mobility Bed Mobility: No Transfers Transfer: Yes Transfer 1 Technique 1: Stand to sit, Sit to stand (From bedside chair) Transfer Device 1: none Transfer Level of Assistance 1: Independent Ambulation Ambulation: Yes Ambulation 1 Surface 1: Level tile Device 1: No device Assistance 1: Independent Quality of Gait 1: No signfiicant deviations noted Comments/Distance (ft) 1: 150 ft Extremity Assessments RUE Assessment RUE Assessment: Within Functional Limits LUE Assessment LUE Assessment: Within Functional Limits RLE Assessment RLE Assessment: Within Functional Limits LLE Assessment LLE Assessment: Within Functional Limits Therapeutic Exercise Outcome Assessments 6 Clicks (Mobility) Help from another person turning from your back to your side while in a flat bed without using bedrails: None Help from another person moving from lying on your back to sitting on the side of a flat bed without using bedrails: None Help from another person moving to and from a bed to a chair (including a wheelchair): None Help from another person standing up from a chair using your arms (e.g. wheelchair or bedside chair): None Help from another person to walk in hospital room: None Help from another person climbing 3-5 steps with a railing: None Mobility 6 Clicks T-Score: 24 Assessment/Plan PT Assessment Impairments: Decreased endurance, Pain PT Assessment: Patient is a 29 y/o female who is independent for all mobility, no further skilled PT services. PT will sign off at this time, patient agreeable. Prognosis: Good Evaluation/Treatment Tolerance: Patient tolerated treatment well Medical Staff Made Aware: Yes Plan PT Plan: No skilled PT No Skilled PT: No acute PT goals identified PT Frequency: One time visit PT Discharge Recommendations: Patient is able to return to prior living environment Equipment Recommended: none (more content not included)... [facility] 03-09-2025 Note Occupational Therapy Occupational Therapy Evaluation Patient Name: Juliette Hernández : 1995 Today's Date: 03/09/2025 29 y/o F s/p R VATS. Apical BLEB resection, and R mechanical pleurodesis on 03/08/25. Initiated session with pt seated in chair. Pt doffed/donned socks, tolerated ROM and MMT, sit to stand, donned gown to backside, functional mobility length of unit X 2, return to room, to chair, and stand to sit. Concluded session with pt seated in chair with call light in reach. RN approved pt for OOB activity this date and pt agreeable. Time In: 1050 Time Out: 1105 General Subjective: Pt pleasant and cooperative Family/Caregiver Present: No Patient Active Problem List Diagnosis Spontaneous pneumothorax Heart murmur, aortic History of substance dependence (CMS/HCC) Anxiety and depression Recurrent pneumothorax Postoperative anemia due to acute blood loss Atelectasis, bilateral Past Medical History: Diagnosis Date Pneumothorax Past Surgical History: Procedure Laterality Date TUBAL LIGATION Precautions Precautions Medical Precautions: chest tube, telemetry Pain Pain Assessment Pain Assessment: Cadena-Horn FACES Pain Score: 7 Pain Type: Surgical pain Pain Location: Rib cage Pain Orientation: Right Cognition Cognition Overall Cognitive Status: Within Functional Limits General Assessment General Assessment Hearing: WFL Home Living Home Living Type of Home: Apartment Lives With: Alone Home Adaptive Equipment: None Home Layout: One level Home Access: Level entry Bathroom Shower/Tub: Tub/shower unit Bathroom Toilet: Standard Bathroom Equipment: None Prior Level of Function Prior Function Level of Centre: Independent with ADLs and functional transfers, Independent with homemaking with ambulation (drives) Prior Functional Mobility: Independent without device Prior IADLs Static Sitting Balance Static Sitting Balance Static Sitting-Balance Support: Feet supported Static Sitting-Level of Assistance: Independent Dynamic Sitting Balance Dynamic Sitting Balance Dynamic Sitting-Balance Support: Feet supported Dynamic Sitting-Balance: Forward lean, Reaching for objects Dynamic Sitting Balance-Level of Assistance: Independent Static Standing Balance Static Standing Balance Static Standing-Balance Support: No upper extremity supported Static Standing-Level of Assistance: Independent Dynamic Standing Balance Dynamic Standing Balance Dynamic Standing-Balance Support: No upper extremity supported Dynamic Standing Balance-Level of Assistance: Independent ADL ADL Eating Assistance: Independent Grooming Assistance: Independent Bathing Assistance: Modified independent (Device) UE Dressing Assistance: Modified independent (Device) UE Dressing Deficit: (donned gown to backside) LE Dressing Assistance: Modified independent (Device) LE Dressing Deficit: Don/doff R sock, Don/doff L sock Toileting Assistance with Device: Independent Bed Mobility Bed Mobility Bed Mobility: No Transfers Transfers Transfer: Yes Transfer 1 Transfer From 1: Chair with arms, Sit Transfer Type 1: To and from Transfer to 1: Stand Technique 1: Sit to stand, Stand to sit Transfer Device 1: none Transfer Level of Assistance 1: Independent Objective General Assessments Activity Tolerance Endurance: Stage IV Vision - Basic Assessment Current Vision: Wears contacts, Wears glasses all the time Sensation Light Touch: No apparent deficits Coordination Movements are Fluid and Coordinated: Yes Hand Function Gross Grasp: Functional Coordination: Functional Extremity Assessments RUE Assessment RUE Assessment: Within Functional Limits LUE Assessment LUE Assessment: Within Functional Limits Outcome Assessments AM-PAC 6 Clicks Putting on and taking off regular lower body clothing?: None (Independent) Bathing(Including washing,rinsing,drying)?: None (Independent) Toileting, which includes using the toilet,bedpan,or urinal?: None (Independent) Putting on and taking off regular upper body clothing?: None (Independent) Taking care of personal grooming such as brushing teeth?: None (Independent) Eating meals?: None (Independent) Total Score OT [facility]: 24 Assessment/Plan OT Assessment OT Assessment/DONAVAN Summary: No acute OT needs identified at this time Prognosis: Good Evaluation/Treatment Tolerance: Patient tolerated treatment well Medical Staff Made Aware: Yes OT Education/Comments: safety awareness, adaptive techniques for R side pain Plan OT Plan: No skilled OT No Skilled OT: No acute OT goals identified OT Frequency: One time visit OT Discharge Recommendations: Patient is able to return to prior living environment OT - Discharge Recommendations Placed: Yes OT Goals Multi-Disciplinary Problems (from Occupational Therapy) Active Problems Not on file [facility] 03-09-2025 Note Respiratory Progress Note Patient Name: Juliette Hernández : 1995 Today's Date: 03/09/2025 XR chest 1 view Result Date: 03/09/2025 * No significant interval change. Electronically signed: Martin Aldridge. XR chest 1 view Result Date: 03/08/2025 * Large bore right-sided chest tube has been placed in position with no postprocedural pneumothorax. Electronically signed: Luis Loja M.D.. The findings from the last RT Protocol Assessment were as follows: Bronchodilator Assessment Grid RR: Patient Baseline Dyspnea: No SOB Breath Sounds: Diminished and/or faint wheezes (clear/diminished) Resp History: None Oxygen to keep SpO2 >/= 92%: Patient baseline (room air) Peak Flow: N/A Level: Level 0 Aerosolized bronchodilator medication orders and frequency have been revised according to the Respiratory Care Clinical Practice Guidelines. Patient to remain on home therapy: As at home reconcile order with home meds if pulmonary status is stable. Level 1: Every 4 hours PRN for wheezing via nebulizer. Level 2: TID daily and Q4 PRN for wheezing. Level 3: QID and Q4 PRN as needed for wheezing. Level 4: Every 4 hours and as needed for wheezing. Level 5: Stat nebulizer time one and contact prescriber for frequency change. Note - The frequency level of therapy will not be lower than the frequency of home therapy as listed on the medication reconciliation record unless specifically ordered by the prescriber. Identify care plan and goals of therapy and perform ongoing clinical assessment to determine appropriateness, benefit, and improvement during the course of therapy. Patient will be re-evaluated every 24 hours. Jannie Norton, [employer] TEACHER 03/09/2025 [facility] 03-09-2025 Note Cardiothoracic Surge ry Progress Note 03/09/2025 Room: [address] [place] [address] Subjective 29-year-old female with history of spontaneous pneumothorax of the right lung. The initial pneumothorax was in December and she was treated with chest tube decompression and catheter pleurodesis with doxycycline in January,. She presented to the emergency department in [place] on 03/05/25 and was recommended for transfer to [facility] for surgical evaluation. Upon arrival to [facility] she was in stable condition with minimal chest discomfort. No shortness of breath or supplemental oxygen needs. Pulmonology team placed a right chest tube with good results. She was evaluated by the CT surgery team and we recommended right thoracoscopy with decortication and mechanical pleurodesis. She underwent the following surgical procedure on 03/08/2025: RIGHT VATS, APICAL BLEB RESECTION, MECHANICAL PLEURODESIS. She tolerated the procedure well. There were no complications. She was taken to the surgical ICU postoperatively. 03/09/2025: POD #1. No acute events overnight. Pain controlled with current pain regimen. No difficulty with transfers and ambulation. Denies dizziness lightheadedness. No abdominal pain, nausea or vomiting. Tolerating regular diet. No numbness, tingling, or weakness of bilateral upper or lower extremities. No fever or chills. Blood pressure and heart rate remain in stable. Patient is doing well. Objective Patient Vitals for the past 24 hrs: BP Temp Temp src Pulse Resp SpO2 Weight 03/09/25 0907 107/65 -- -- 70 21 100 % -- 03/09/25 0800 100/71 36.6 ???C (97.9 ???F) Oral 73 15 100 % -- 03/09/25 0700 -- -- -- 79 16 95 % -- 03/09/25 0621 -- -- -- -- -- -- 84.7 kg (186 lb 12.8 oz) 03/09/25 0600 -- -- -- 92 18 97 % -- 03/09/25 0500 -- -- -- 68 19 100 % -- 03/09/25 0400 -- -- -- 72 17 99 % -- 03/09/25 0100 -- -- -- 70 17 97 % -- 03/09/25 0000 -- 36.9 ???C (98.5 ???F) Oral 70 16 97 % -- 03/08/25 2300 -- -- -- 79 16 95 % -- 03/08/252199 -- -- -- 80 17 95 % -- 03/08/25 2100 -- -- -- 82 17 96 % -- 03/08/25 2000 -- 36.7 ???C (98.1 ???F) Oral 95 22 92 % -- 03/08/251950 -- -- -- 85 16 96 % -- 03/08/25 1900 -- -- -- 81 20 -- -- 03/08/25 1600 -- -- -- 85 16 -- -- 03/08/25 1400 -- -- -- 86 17 98 % -- 03/08/25 1300 -- -- -- 78 19 97 % -- 03/08/25 1200 -- 36.7 ???C (98 ???F) Oral 82 19 100 % -- Physical Exam Constitutional: General: She is not [...] sounds: No wheezing or rales. Comments: Right axillary chest tube is in place. Currently to waterseal. There is no airleak. Serosanguineous drainage. Occlusive dressing is clean and dry. No underlying crepitus. Chest tube output: Past 12 hours: 45 mL Past 24 hours: 135 mL Abdominal: General: There is no distension. Palpations: Abdomen is soft. Musculoskeletal: General: No swelling or tenderness. Normal range of motion. Cervical back: Normal range of motion. Skin: General: Skin is warm and dry. Capillary Refill: Capillary refill takes less than 2 seconds. Coloration: Skin is not jaundiced or pale. Comments: Right thoracotomy incision is well-approximated without erythema or drainage. No warmth. There is a small amount of incisional swelling, but no underlying fluctuance or hematoma. Appearance is appropriate given postoperative timeframe. Occlusive dressing is in place, clean and dry. Neurological: General: No focal deficit present. Mental Status: She is alert and oriented to person, place, and time. Psychiatric: Mood and Affect: Mood normal. Behavior: Behavior normal. Lab Results Component Value Date NA 137 03/09/2025 K 4.1 03/09/2025 CL 102 03/09/2025 ANIONGAP 11 03/09/2025 BUN 13 03/09/2025 CREATININE 0.51 (L) 03/09/2025 CALCIUM 8.5 (L) 03/09/2025 MG 2.0 03/09/2025 Lab Results Component Value Date BILITOT 0.5 01/01/2025 ALKPHOS 65 01/01/2025 AST 21 01/01/2025 ALT 15 01/01/2025 PROT 6.6 01/01/2025 ALBUMIN 4.0 01/01/2025 Lab Results Component Value Date WBC 9.13 03/09/2025 RBC 4.15 03/09/2025 HGB 10.8 (L) 03/09/2025 HCT 33.7 (L) 03/09/2025 PLT 339 03/09/2025 NRBC 0.0 01/06/2025 === Imaging Orders, Last 24 Hours === XR CHEST 1 VIEW - Impression - * No significant interval change. Electronically signed: Martin Aldridge. XR CHEST 1 VIEW - Impression - * Large bore right-sided chest tube has been placed in position with no postprocedural pneumothorax. Electronically signed: Eugenia Thrasher (more content not included)... [facility] 03-08-2025 Note Respiratory Progress Note Patient Name: Juliette Hernández : 1995 Today's Date: 03/08/2025 pt is a level 2. Therapy is appropriate at this time. XR chest 1 view Result Date: 03/08/2025 * Large bore right-sided chest tube has been placed in position with no postprocedural pneumothorax. Electronically signed: Luis Loja M.D.. The findings from the last RT Protocol Assessment were as follows: Bronchodilator Assessment Grid RR: Less than 20 (Level 1) Dyspnea: Periodic SOB Breath Sounds: Diminished and/or faint wheezes Resp History: Positive risk factors* (Right lung surgery) Oxygen to keep SpO2 >/= 92%: 1-3 lpm 25%-35% Peak Flow: N/A Level: Level 2 Aerosolized bronchodilator medication orders and frequency have been revised according to the Respiratory Care Clinical Practice Guidelines. Patient to remain on home therapy: As at home reconcile order with home meds if pulmonary status is stable. Level 1: Every 4 hours PRN for wheezing via nebulizer. Level 2: TID daily and Q4 PRN for wheezing. Level 3: QID and Q4 PRN as needed for wheezing. Level 4: Every 4 hours and as needed for wheezing. Level 5: Stat nebulizer time one and contact prescriber for frequency change. Note - The frequency level of therapy will not be lower than the frequency of home therapy as listed on the medication reconciliation record unless specifically ordered by the prescriber. Identify care plan and goals of therapy and perform ongoing clinical assessment to determine appropriateness, benefit, and improvement during the course of therapy. Patient will be re-evaluated every 24 hours. Clover Shields, STEWARDESSES TEACHER 03/08/2025 [facility] 03-08-2025 Note Patient: Juliette Hernández Procedure Summary Date: 03/08/25 Room / Location: [facility] OPERATING ROOM 11 / [facility] Operating Room Anesthesia Start: 0849 Anesthesia Stop: 1200 Procedure: RIGHT VATS, APICAL BLEB RESECTION, MECHANICAL PLEURODESIS (Right) Diagnosis: Recurrent pneumothorax (Recurrent pneumothorax [J93.9]) Surgeons: Heri Perez MD Responsible Provider: Gatito Langley MD Anesthesia Type: general ASA Status: 2 Anesthesia Type: general Vitals Value Taken Time BP 138/77 03/08/25 1239 Temp 36.7 ???C (98 ???F) 03/08/25 1200 Pulse 86 03/08/25 1239 Resp 15 03/08/25 1239 SpO2 99 % 03/08/25 1239 Vitals shown include unfiled device data. Anesthesia Post Evaluation Patient location during evaluation: ICU Patient participation: complete - patient participated Level of consciousness: awake Pain management: adequate Multimodal analgesia pain management approach Airway patency: patent Cardiovascular status: acceptable Respiratory status: acceptable and nonlabored ventilation Hydration status: acceptable No notable events documented. [facility] 03-08-2025 Note Peripheral Block Patient location during procedure: OR Start time: 03/08/2025 11:15 AM End time: 03/08/2025 11:30 AM Reason for block: at surgeon's request and post-op pain management Staffing Performed: resident/FINISH SAW OPERATOR/CAA Anesthesiologist: Gatito Langley MD Resident/FINISH SAW OPERATOR: Mona Arevalo MD Preanesthetic Checklist Completed: patient identified, IV checked, site marked, risks and benefits discussed, surgical consent, monitors and equipment checked, pre-op evaluation and timeout performed Peripheral Block Patient position: left lateral decubitus Prep: ChloraPrep Patient monitoring: continuous pulse ox Block type: Erector Spinae (OSMIN) Laterality: right Injection technique: single-shot Guidance: ultrasound guided Needle Needle type: short-bevel Needle gauge: 20G. Needle length: 4 in Needle localization: ultrasound guidance Medications Administered ropivacaine (PF) (Naropin) 5 mg/mL (0.5 %) injection - injection 20 mL - 03/08/2025 11:15:00 AM dexAMETHasone (Decadron) injection - peripheral nerve block 5 mg - 03/08/2025 11:15:00 AM Assessment Injection assessment: negative aspiration for heme, no paresthesia on injection, incremental injection and local visualized surrounding nerve on ultrasound Paresthesia pain: none Heart rate change: no Slow fractionated injection: yes [facility] 03-08-2025 Note Attestation signed by Marjorie Vance MD at 03/11/2025 2:45 PM I personally saw and examined the patient on the same date of service as resident/fellow. I discussed the findings and therapeutic plan with the resident/fellow. I agree with the documentation, except for any edits/updates below. Attending Attestation: Marjorie Vance MD Attending Physician, Pulmonary, Critical Care and Sleep Medicine [facility] 03/11/25 - PROGRESS NOTE - PATIENT IDENTIFICATION Patient : Juliette Hernández : 1995 Location: OR/- Attending: Parker Yang MD Admit Date: 03/05/2025 Hospital Day: 3 REASON FOR CONSULT Recurrent Pneumothorax HISTORY OF PRESENT ILLNESS (HPI) Juliette Hernández is a 29 y.o. female with prior recurrent pneumothorax, prior opiate/substance abuse (no longer), who is admitted on 03/05 from OSH for again pneumothorax and Pulmonology is consulted for this recurrent pneumothorax. Patient was down in OR for VATS procedure today, unable to be seen prior. Chart reviewed. No noted overnight events. Reevaluate after procedure today. Addendum: evaluated patient post-operatively. She is sore and out of it . She had right VATS, apical bleb resection and mechanical pleurodesis. Prior chest tube removed, and new 28F chest tube placed in the right anterior intercostal space. She denied any other complaints at the time. She was oriented and in NAD. She was pleasant, and aware of plan. ASSESSMENT Recurrence of spontaneous pneumothorax History of recurrent spontaneous pneumothorax History of substance abuse marijuana, alcohol, opiates - no longer Anxiety/Depression PLAN VATS 03/08 - per CT Surgery S/p chest tube insertion 03/06 - suction, monitor output, chest tube care Continue to wean supplemental oxygen as able to maintain SpO2 > 90% Etiology unknown, ddx prior RF (subs abuse) CTD (EDS/Marfan), COPD/Asthma, etc Consider genetic testing referral on discharge Continue IS as able Pain management per primary team Continue to follow along with you Addendum: Patient is s/p VATS, bleb removal, and mechanical pleurodesis on 03/08. Pulmonology will respectfully sign off Rest of care per cardiothoracic surgery team Do not hesitate to call or re-consult for any questions or concerns. Rest of care per primary team. Thank you for allowing us to participate in the care of Juliette Hernández. Subjective Past History/Allergies/Social History: Past Medical History: Diagnosis Date Pneumothorax No Known Allergies Social History Socioeconomic History [...] indicate opiate abuse, crack, cocaine Sexual activity: Defer Other Topics Concern Not on file Social History Narrative Not on file Social Determinants of Health Financial Resource Strain: Medium Risk (03/05/2025) Overall Financial Resource Strain (CARDIA) Difficulty of Paying Living Expenses: Somewhat hard Food Insecurity: Food Insecurity Present (03/05/2025) Hunger Vital Sign Worried About Running Out of Food in the Last Year: Sometimes true Ran Out of Food in the Last Year: Not on file Transportation Needs: No Transportation Needs (03/05/2025) Transportation Lack of Transportation (Medical): No Lack of Transportation (Non-Medical): Not on file Physical Activity: Not on file Stress: Not on file Social Connections: Not on file Intimate Partner Violence: Unknown (03/05/2025) Humiliation, Afraid, Rape, and Kick questionnaire Fear of Current or Ex-Partner: No Emotionally Abused: Not on file Physically Abused: Not on file Sexually Abused: Not on file Housing Stability: Low Risk (03/05/2025) Housing Stability Vital Sign Unable to Pay for Housing in the Last Year: No Number of Times Moved in the Last Year: 1 Homeless in the Last Year: No Family History: Family History Problem Relation Name Age of Onset Arrhythmia Mother Outpatient Meds: Current Facility-Administered Medications: [Transfer Hold] acetaminophen (Tylenol) tablet 650 mg, 650 mg, oral, q6h PRN, Karen Sapp PA-C BUPivacaine HCl (Marcaine) 0.25 % (2.5 mg/mL) injection, , , PRN, Heri Chris, MD, 30 mL at 03/08/25 0934 [Transfer Hold] ferrous sulfate tablet 325 mg, 325 mg, oral, Daily with breakfast, FREDA Jose-Sejal, 325 mg at 03/07/25 0932 [Transfer Hold] FLUoxetine (PROzac) capsule 60 mg, 60 mg, oral, Daily, FREDA Jose-C, 60 mg at 03/07/25 0932 (more content not included)... [facility] 03-08-2025 Note Airway Date/Time: 03/08/2025 9:05 AM Urgency: elective Airway not difficult General Information and Staff Patient location during procedure: OR Anesthesiologist: Gatito Langley MD Resident/FINISH SAW OPERATOR/CAA: Mona Arevalo MD Performed: anesthesiologist Indications and Patient Condition Indications for airway management: anesthesia Spontaneous Ventilation: absent Sedation level: deep Preoxygenated: yes Patient position: sniffing MILS not maintained throughout Mask difficulty assessment: 1 - vent by mask Planned trial extubation Final Airway Details Final airway type: endotracheal airway Successful airway: ETT - double lumen left Cuffed: yes Successful intubation technique: video laryngoscopy Facilitating devices/methods: intubating stylet Endotracheal tube insertion site: oral Blade: Tran Blade size: #3 ETT DL size (fr): 35 Cormack-Lehane Classification: grade I - full view of glottis Placement verified by: bronchoscopy and capnometry ETT measured from: positioned with fiberoptic bronchoscopy. Number of attempts at approach: 1 Ventilation between attempts: none [facility] 03-08-2025 Note Arterial Line: Date/Time: 03/08/2025 9:25 AM An arterial line was placed Procedure performed using ultrasound guidance.in the OR for the following indication(s): continuous blood pressure monitoring and blood sampling needed. A 20 G (size), 12 cm (length), Arrow (type) catheter was placed, Seldinger technique used , into the Left radial artery, secured by tape, Tegaderm and Biodisc/Biopatch. Events: patient tolerated procedure well with no complications. Staffing Performed: resident/FINISH SAW OPERATOR/CAA Anesthesiologist: Gatito Langley MD Resident/FINISH SAW OPERATOR: Mona Arevalo MD Performed by: Mona Arevalo MD Authorized by: Gatito Langley MD [facility] 03-08-2025 Note Peripheral IV Date/Time: 03/08/2025 9:35 AM Inserted by: Mona Arevalo MD Placement Needle size: 16 G Laterality: left Location: hand Local anesthetic: none Site prep: chlorhexidine Technique: anatomical landmarks Attempts: 2 [facility] 03-08-2025 Note Peripheral IV Date/Time: 03/08/2025 9:50 AM Inserted by: Gatito Langley MD Placement Needle size: 14 G Laterality: right Location: wrist Local anesthetic: none Site prep: alcohol Technique: anatomical landmarks Attempts: 1 [facility] 03-08-2025 Note Patient: Juliette Hernández Procedure Information Date/Time: 03/08/25 0800 Procedure: THORACOSCOPY, WITH LUNG DECORTICATION (Right) Location: [facility] OPERATING ROOM 11 / [facility] Operating Room Surgeons: Giacomo Velázquez MD Relevant Problems Cardio (+) Heart murmur, aortic Past Medical History: Diagnosis Date Pneumothorax Past Surgical History: Procedure Laterality Date TUBAL LIGATION Left Ventricle: The left ventricle is normal size. Global left ventricular systolic function is normal. The EF is 55 % visually. Left ventricular wall thickness is normal. No regional wall motion abnormality. Unable to assess diastolic dysfunction. No left ventricular hypertrophy. Right Ventricle: The right ventricle is normal in size. Normal right ventricular systolic function. Doppler studies suggest normal right sided pressures. Left Atrium: The left atrium appears normal in size. Overall Conclusions: No significant valvular abnormalities Clinical information reviewed: Allergies Meds Med Hx Surg Hx OB Status Physical Exam Airway Mallampati: II TM distance: >3 FB Neck ROM: full Cardiovascular - normal exam Dental Comments: Multiple missing teeth. Permanent retainer with upper front teeth. Not removable. Discussed risk of damage/loss to remaining teeth and permanent retainer with patient who understands and agrees to proceed. Pulmonary - normal exam Abdominal - normal exam Anesthesia Plan ASA 2 general (GETA with 35 Fr. L AME, large bore PIV access, arterial line, will defer hall (~1.5 hrs. Procedural time per Dr. Velázquez). Icu postop +/- intubation and mechanical ventilation with goal for extubation in OR. Plan for OSMIN block with ultrasound at the completion of the procedure. Multimodal analgesia planned (hx. Of heavy alcohol and marijuana use, has now completed treatment and is doing sober living program; patient congratulated on her success). Preop Hb 11, type and screen and 2 units PRBCs prepared.) intravenous induction Postoperative administration of opioids is intended. Trial extubation is planned. Anesthetic plan and risks discussed with patient. Use of blood products discussed with patient who consented to blood products. Plan discussed with attending. Additional Equipment Requests [facility] 03-07-2025 Note - Status post chest tube placement on 03/05/2025 -This is her third pneumothorax (second 1 patient had pleurodesis with doxycycline) - Patient to have VATS with bleb resection tomorrow -Continue chest tube to suction and pain control -For pain patient on Tylenol, Hulbert dose was increased this morning, Toradol and morphine and I believe patient on adequate regimen [facility] 03-07-2025 Note - Resume fluoxetine and Neuronti n [facility] 03-07-2025 Note Hospital Medicine Daily Progress Note - 03/07/2025 11:32 AM; Room: [address] [place] [address] Admission: 03/05/2025 1:58 PM; Length of stay: 2 days THE HOSPITALIST TEAM PREFERS TO USE [employer] CHAT FOR NON-URGENT COMMUNICATION 7AM-7PM. IF I DO NOT RESPOND WITHIN 20 MINUTES OR URGENT MATTERS, PLEASE CALL THROUGH THE BENDING ROLL OPERATOR. FROM 7PM-7AM, PLEASE PAGE [phone](COVR). Code Status: Full Code Barriers to Discharge: Possible pleurodesis Expected Discharge Date: 2 days Discharge Destination: home Overview Patient is seen for evaluation and management of recurrent pneumothorax. Subjective Seen today in her room, alert and in no acute distress. Still complaining of some chest pain I believe it is manageable Physical Exam General: Awake, Oriented X3 HEENT: Normal oral mucosa Lungs: Good air entry both lungs, right sided chest tube in place Cardiac: Normal heart sounds Abdomen: soft, Non-tender Neuro: Oriented X 3, no focal deficit Visit Vitals BP (!) 116/47 (BP Location: Right arm, Patient Position: Lying) Pulse 67 Temp 36.4 ???C (97.5 ???F) Resp 10 Intake/Output Summary (Last 24 hours) at 03/07/2025 1132 Last data filed at 03/07/2025 0600 Gross per 24 hour Intake 350 ml Output 700 ml Net -350 ml Estimated body mass index is 30.83 kg/m??? as calculated from the following: Height as of this encounter: 1.676 m (5' 6 ). Weight as of this encounter: 86.6 kg (191 lb). Assessment and Plan Assessment & Plan Recurrent pneumothorax - Status post chest tube placement on 03/05/2025 -This is her third pneumothorax (second 1 patient had pleurodesis with doxycycline) - Patient to have VATS with bleb resection tomorrow -Continue chest tube to suction and pain control -For pain patient on Tylenol, Hulbert dose was increased this morning, Toradol and morphine and I believe patient on adequate regimen Anxiety and depression - Resume fluoxetine and Neurontin VTE Prophylaxis: Will start AFTER PROCEDURE Scheduled Meds ferrous sulfate, 325 mg, oral, Daily with breakfast FLUoxetine, 60 mg, oral, Daily gabapentin, 300 mg, oral, TID Oxygen Therapy, , inhalation, Continuous Pertinent Investigations Hematology: Results from last 7 days Lab Units 03/06/25 0403 03/05/25 1459 WBC AUTO 10*3/uL 6.14 4.96 HEMOGLOBIN g/dL 11.0* 10.5* HEMATOCRIT % 34.4* 32.2* MCV fL 82.7 80.1* PLATELETS AUTO 10*3/uL 300 301 Chemistry: Results from last 7 days Lab Units 03/06/25 0403 03/05/25 1459 SODIUM mmol/L 139 138 POTASSIUM mmol/L 4.2 3.8 CHLORIDE mmol/L 107 105 CO2 mmol/L 27 27 BUN mg/dL 17 13 CREATININE mg/dL 0.55* 0.47* GLUCOSE mg/dL 112* 83 CALCIUM mg/dL 8.6 8.8 No lab exists for component: AFIO2 , APHT , APCOT , APOT , ATCO2 , CK , ALB , IBILI Historical Values: (Includes values prior to this admission) Lab Results Component Value Date TSH 2.68 01/01/2025 Lab Results Component Value Date [id number] 299 01/01/2025 IRON 37 (L) 03/05/2025 TIBC 395 03/05/2025 Imaging Electrocardiogram, 12-lead Normal sinus rhythm Normal ECG No previous ECGs available Confirmed by Prema SCHWARZ, CHARO Kan ([id number]) on 03/06/2025 1:11:00 PM XR chest 1 view Narrative: XR CHEST 1 VIEW CLINICAL INDICATION: Pneumothorax. COMPARISON: 03/05/2025. Impression: 1. Unchanged position right midlung chest tube, adjacent subcutaneous emphysema. Suspect tiny right apical pneumothorax, no significant mediastinal shift. 2. No airspace consolidation or significant pleural effusion. Unchanged cardiomediastinal silhouette. Electronically signed: Jonathan Pedro MD. Discharge Planning Signed Parker Yang MD [facility] Medicine 03/07/2025 11:32 AM [facility] 03-07-2025 Note Attestation signed by Live Gilman MD at 03/07/2025 4:23 PM I personally saw and examined the patient on the same date of service as resident/fellow Donnie Syed MD. I discussed the findings and therapeutic plan with the Donnie Syed MD. I agree with the documentation, except for any edits/updates below. Pain control as needed, plan for VATS tomorrow. No airleak noted. - PROGRESS NOTE - PATIENT IDENTIFICATION Patient : Juliette Hernández : 1995 Location: [id number] Attending: Parker Yang MD Admit Date: 03/05/2025 Hospital Day: 2 REASON FOR CONSULT Recurrent Pneumothorax HISTORY OF PRESENT ILLNESS (HPI) Juliette Hernández is a 29 y.o. female with prior recurrent pneumothorax, prior opiate/substance abuse (no longer), who is admitted on 03/05 from OSH for again pneumothorax and Pulmonology is consulted for this recurrent pneumothorax. Patient seen and examined at bedside. In NAD. Resting comfortably. She is s/p chest tube placement right chest on 03/06. Minimal output. She is on 2L NC currently. She is aware of plan for surgery on 03/[address] surgery, this is actually first recurrence given that 2nd episode was continuation of her first. Initially she had chest tube placed (not in the pleural cavity), second time she had chemical pleurodesis with doxycycline. Plan is for right VATS with bleb resection and talc mechanical pleurodesis. No current questions or concerns. She complains of inadequate pain management. ASSESSMENT Recurrence of spontaneous pneumothorax History of recurrent spontaneous pneumothorax History of substance abuse marijuana, alcohol, opiates - no longer Anxiety/Depression PLAN S/p chest tube insertion 03/06 - suction, monitor output, chest tube care Plan for VATS per CT Surgery 03/08 - NPO midnight Continue to wean supplemental oxygen as able to maintain SpO2 > 90% Etiology unknown, ddx prior RF (subs abuse) CTD (EDS/Marfan), COPD/Asthma, etc Consider genetic testing referral on discharge Continue IS as able Pain management per primary team Continue to follow along with you Rest of care per primary team. Thank you for allowing us to participate in the care of Juliette Hernández. Subjective Past History/Allergies/Social History: Past Medical History: Diagnosis Date Pneumothorax No Known Allergies Social History Socioeconomic History [...] indicate opiate abuse, crack, cocaine Sexual activity: Defer Other Topics Concern Not on file Social History Narrative Not on file Social Determinants of Health Financial Resource Strain: Medium Risk (03/05/2025) Overall Financial Resource Strain (CARDIA) Difficulty of Paying Living Expenses: Somewhat hard Food Insecurity: Food Insecurity Present (03/05/2025) Hunger Vital Sign Worried About Running Out of Food in the Last Year: Sometimes true Ran Out of Food in the Last Year: Not on file Transportation Needs: No Transportation Needs (03/05/2025) Transportation Lack of Transportation (Medical): No Lack of Transportation (Non-Medical): Not on file Physical Activity: Not on file Stress: Not on file Social Connections: Not on file Intimate Partner Violence: Unknown (03/05/2025) Humiliation, Afraid, Rape, and Kick questionnaire Fear of Current or Ex-Partner: No Emotionally Abused: Not on file Physically Abused: Not on file Sexually Abused: Not on file Housing Stability: Low Risk (03/05/2025) Housing Stability Vital Sign Unable to Pay for Housing in the Last Year: No Number of Times Moved in the Last Year: 1 Homeless in the Last Year: No Family History: Family History Problem Relation Name Age of Onset Arrhythmia Mother Outpatient Meds: Current Facility-Administered Medications: acetaminophen (Tylenol) tablet 650 mg, 650 mg, oral, q6h PRN, Karen Sapp PA-C ferrous sulfate tablet 325 mg, 325 mg, oral, Daily with breakfast, Karen Sapp PA-C, 325 mg at 03/07/25 0932 FLUoxetine (PROzac) capsule 60 mg, 60 mg, oral, Daily, Karen Sapp PA-C, 60 mg at 03/07/25 0932 gabapentin (Neurontin) capsule 300 mg, 300 mg, oral, TID, Karen Sapp PA-C, 300 mg at 03/07/25 0932 HYDROcodone-acetaminophen (Hulbert) 10-325 mg per tablet 1 tablet, 1 tablet, oral, q6h PRN, Parker Yang MD, 1 tablet at 03/07/25 0932 ketorolac (Toradol) injection 15 mg, 15 mg, intravenous, q6h PRN, Karen Sapp PA-C, 15 mg (more content not included)... [facility] 03-06-2025 Note Attestation signed by Live Gilman MD at 03/06/2025 5:01 PM I personally saw and examined the patient on the same date of service as resident/fellow Joe Schumacher MD. I discussed the findings and therapeutic plan with the Joe Schumacher MD. I agree with the documentation, except for any edits/updates below. Clinically doing okay other than chest pain. History of marijuana use. Hulbert changed to Percocet for better pain control. Pulmonology Progress Patient : Juliette Hernández; 29 y.o. Location: 3167/3167-01 Attending: Parker Yang MD Admit Date: 03/05/2025 Hospital Day: 1 Reason for Consult: Recurrent pneumothorax Subjective: Seen and examined today at bedside, small apical pneumothorax is remnant on imaging. No acute events reports. Seen by CT surgery, scheduled for VATS on Saturday Assessment: Primary spontaneous pneumothorax. Recurrent spontaneous pneumothorax recurrent. Recurrent spontaneous pneumothorax X 3. Plan: S/p chest tube insertion on 03/06 Patient had first spontaneous pneumothorax treated with chest tube, air aspiration, decompression, 2nd pneumothorax was treated with chemical pleurodesis with doxycycline. Patient is candidate for surgical pleurodesis, VAT, CT surgery evaluated patient on her last admission. VATS with bleb resection on Saturday Chest tube care Keep to suction for now Pulmonary will continue to follow oJe Schumacher MD Pulmonary & Critical Care Medicine [facility] Past History/Allergies?Social History: Past Medical History: Diagnosis Date Pneumothorax No Known Allergies Social History Socioeconomic History [...] indicate opiate abuse, crack, cocaine Sexual activity: Defer Other Topics Concern Not on file Social History Narrative Not on file Social Determinants of Health Financial Resource Strain: Medium Risk (03/05/2025) Overall Financial Resource Strain (CARDIA) Difficulty of Paying Living Expenses: Somewhat hard Food Insecurity: Food Insecurity Present (03/05/2025) Hunger Vital Sign Worried About Running Out of Food in the Last Year: Sometimes true Ran Out of Food in the Last Year: Not on file Transportation Needs: No Transportation Needs (03/05/2025) Transportation Lack of Transportation (Medical): No Lack of Transportation (Non-Medical): Not on file Physical Activity: Not on file Stress: Not on file Social Connections: Not on file Intimate Partner Violence: Unknown (03/05/2025) Humiliation, Afraid, Rape, and Kick questionnaire Fear of Current or Ex-Partner: No Emotionally Abused: Not on file Physically Abused: Not on file Sexually Abused: Not on file Housing Stability: Low Risk (03/05/2025) Housing Stability Vital Sign Unable to Pay for Housing in the Last Year: No Number of Times Moved in the Last Year: 1 Homeless in the Last Year: No Family History: Family History Problem Relation Name Age of Onset Arrhythmia Mother Outpatient Medications: Medications Prior to Admission Medication Sig Dispense Refill Last Dose acetaminophen (Tylenol) 500 mg tablet Take 2 tablets (1,000 mg) by mouth every 8 (eight) hours for 284 doses. (Patient taking differently: Take 1,000 mg by mouth every 8 (eight) hours if needed.) 30 tablet 0 Past Month ARIPiprazole (Abilify) 5 mg tablet Take 1 tablet (5 mg) by mouth in the morning for 93 doses. 30 tablet 3 Past Month ferrous sulfate 325 (65 Fe) MG tablet Take 1 tablet (325 mg) by mouth with breakfast for 93 doses. 30 tablet 3 03/05/2025 FLUoxetine (PROzac) 40 mg capsule Take 60 mg by mouth in the morning. 03/05/2025 gabapentin (Neurontin) 300 mg capsule Take 1 capsule (300 mg) by mouth three times daily for 282 doses. 90 capsule 3 03/05/2025 Current Medications: Scheduled Meds: ferrous sulfate, 325 mg, oral, Daily with breakfast FLUoxetine, 60 mg, oral, Daily gabapentin, 300 mg, oral, TID Oxygen Therapy, , inhalation, Continuous Continuous Infusions: PRN Meds: PRN medications: acetaminophen, HYDROcodone-acetaminophen, ketorolac, melatonin, morphine, ondansetron ODT OR ondansetron, Insert peripheral IV AND Saline lock IV AND sodium chloride Review of Systems: ROS Negative except per HPI Input/Output: I/O last 3 completed shifts: In: 701 (8.2 mL/kg) [P.O.:700; I.V.:1 (0 mL/kg)] Out: 800 (9.3 mL/kg) [Urine:800 (0.3 mL/kg/hr)] Weight: 85.9 kg Vital Signs: [place] (more content not included)... [facility] 03-06-2025 Note - Status post chest tube placement on 03/05/2025 -This is her third pneumothorax (second 1 patient had pleurodesis with doxycycline) - Appreciate cardiothoracic surgery input likely patient will need procedure on Saturday -Continue chest tube to suction and pain control [facility] 03-06-2025 Note - Resume fluoxetine and Neuronti n [facility] 03-06-2025 Note Hospital Medicine Daily Progress Note - 03/06/2025 9:30 AM; Room: [address] [place] [address] Admission: 03/05/2025 1:58 PM; Length of stay: 1 days THE HOSPITALIST TEAM PREFERS TO USE [employer] CHAT FOR NON-URGENT COMMUNICATION 7AM-7PM. IF I DO NOT RESPOND WITHIN 20 MINUTES OR URGENT MATTERS, PLEASE CALL THROUGH THE BENDING ROLL OPERATOR. FROM 7PM-7AM, PLEASE PAGE [phone](COVR). Code Status: Full Code Barriers to Discharge: Possible pleurodesis Expected Discharge Date: 2 days Discharge Destination: home Overview Patient is seen for evaluation and management of recurrent pneumothorax. Subjective Seen today in her room, alert and in no acute distress. Chest pain pretty manageable Physical Exam General: Awake, Oriented X3 HEENT: Normal oral mucosa Lungs: Good air entry both lungs, right sided chest tube in place Cardiac: Normal heart sounds Abdomen: soft, Non-tender Neuro: Oriented X 3, no focal deficit Visit Vitals BP 111/71 Pulse 61 Temp 36.6 ???C (97.9 ???F) (Temporal) Resp 14 Intake/Output Summary (Last 24 hours) at 03/06/2025 0930 Last data filed at 03/06/2025 0730 Gross per 24 hour Intake 701 ml Output 800 ml Net -99 ml Estimated body mass index is 30.57 kg/m??? as calculated from the following: Height as of this encounter: 1.676 m (5' 6 ). Weight as of this encounter: 85.9 kg (189 lb 6.4 oz). Assessment and Plan Assessment & Plan Recurrent pneumothorax - Status post chest tube placement on 03/05/2025 -This is her third pneumothorax (second 1 patient had pleurodesis with doxycycline) - Appreciate cardiothoracic surgery input likely patient will need procedure on Saturday -Continue chest tube to suction and pain control Anxiety and depression - Resume fluoxetine and Neurontin VTE Prophylaxis: Will start AFTER PROCEDURE Scheduled Meds ferrous sulfate, 325 mg, oral, Daily with breakfast FLUoxetine, 60 mg, oral, Daily gabapentin, 300 mg, oral, TID Oxygen Therapy, , inhalation, Continuous Pertinent Investigations Hematology: Results from last 7 days Lab Units 03/06/25 0403 03/05/25 1459 WBC AUTO 10*3/uL 6.14 4.96 HEMOGLOBIN g/dL 11.0* 10.5* HEMATOCRIT % 34.4* 32.2* MCV fL 82.7 80.1* PLATELETS AUTO 10*3/uL 300 301 Chemistry: Results from last 7 days Lab Units 03/06/25 0403 03/05/25 1459 SODIUM mmol/L 139 138 POTASSIUM mmol/L 4.2 3.8 CHLORIDE mmol/L 107 105 CO2 mmol/L 27 27 BUN mg/dL 17 13 CREATININE mg/dL 0.55* 0.47* GLUCOSE mg/dL 112* 83 CALCIUM mg/dL 8.6 8.8 No lab exists for component: AFIO2 , APHT , APCOT , APOT , ATCO2 , CK , ALB , IBILI Historical Values: (Includes values prior to this admission) Lab Results Component Value Date TSH 2.68 01/01/2025 Lab Results Component Value Date [id number] 299 01/01/2025 IRON 37 (L) 03/05/2025 TIBC 395 03/05/2025 Imaging XR chest 1 view Narrative: XR CHEST 1 VIEW CLINICAL INDICATION: Pneumothorax. COMPARISON: 03/05/2025. Impression: 1. Unchanged position right midlung chest tube, adjacent subcutaneous emphysema. Suspect tiny right apical pneumothorax, no significant mediastinal shift. 2. No airspace consolidation or significant pleural effusion. Unchanged cardiomediastinal silhouette. Electronically signed: Jonathan Pedro MD. Discharge Planning Signed Parker Yang MD [facility] Medicine 03/06/2025 9:30 AM [facility] 03-06-2025 Note This actually repres ents the first recurrence of this patient's right sided spontaneous pneumothorax; hence her 2nd spontaneous pneumothorax. This is because after we reviewed the original CT scans from the outside hospital from her initial presentation , we believed the chest tube placed at that time was not actually in the pleural cavity and it was subsequently removed; a short time later the delayed primary pneumothorax worsened. So a 2nd CT was place and she was referred here on 01/01/25, where subsequent chemical pleurodesis was done and the tube removed. Since this is now clearly a second spontaneous pneumothorax on the right, we have scheduled her for potential right video-assisted thoracoscopy?thoracotomy with bleb resection and talc mechanical pleurodesis on Saturday. Her present chest tube is in good position ; it was placed in the anterior axillary line by the pulmonary service. There is a tiny apical pneumothorax remnant. Given the history of chemical pleurodesis, there is always the potential that she would need a thoracotomy due to adhesions, yet we are optimistic about performing a right video-assisted thoracoscopy. The risks and benefits were discussed with the patient. She understands and wishes to proceed, so patient will be n.p.o. after midnight on Saturday night. Her preop testing has been ordered. Orders from past 72 hours: Case Request Operating Room: THORACOSCOPY, WITH LUNG DECORTICATION; Standing Case Request Operating Room: THORACOSCOPY, WITH LUNG DECORTICATION [facility] 03-06-2025 Note No recent substance abuse per patient ; Urine toxicology has been ordered. [facility] 03-06-2025 Note Psychological condit ion is improving with treatment. Continue current treatment regimen. Psychological condition will be reassessed in 4 weeks. Giacomo Velázquez MD CT Surgery [facility] 03-05-2025 Note Attestation signed by Marjorie Vance MD at 03/08/2025 1:09 PM I was present for the entire duration of the procedure. CHEST TUBE PROCEDURE NOTE INDICATION: Recurrent pneumothorax PREPROCEDURE DIAGNOSIS: Right-sided pneumothorax POSTPROCEDURE DIAGNOSIS: Same PROCEDURE BENDING ROLL OPERATOR: Penelope Broderick MD ATTENDING Physician: MARJORIE VANCE MD CONSENT: Written consent had been obtained from the patient before the procedure after explaining risk, benefits, and purpose of the procedure. TIME-OUT: A time-out was completed verifying correct patient, site, and procedure. PROCEDURE SUMMARY: By using the US, best spot for needle insertion was identified. The patient was prepped and draped in a sterile manner using chlorhexidine scrub after the patient was positioned in the usual fashion. A total of 15 ml of 1% lidocaine was used to anesthesize the skin, subcutaneous tissue, superior aspect of the rib periosteum and parietal pleura. An 18 gauge needle with syringe attached was inserted into the pleural space with aspiration of air to verify placement. A guide wire was advanced into the pleural space and the needle was withdrawn. A 0.5 cm incision was made through the skin and the subcutaneous tissues were dilated. The 14 Fr chest tube catheter (pigtail) was inserted into the pleural space. The drain was then immediately connected to a Pleur-evac. Adequate placement confirmed by air leak and tidaling. The tube was sutured in place and dressing applied. The patient tolerated the procedure well. Estimated Blood Loss (EBL): None Complications: None Post-Procedure: CXR has been ordered to confirm adequate placement. Plan: Chest drain is to be placed to water seal / continuous wall suction at 20 cmH20 Analgesics ordered, see chart. Penelope Broderick MD Critical care Fellow [facility] 03-05-2025 Note Case was discussed w ith the RISHABH on 03/05/2025. I physically saw and evaluated the patient on the day of the encounter, performed the barcenas portion(s) of the service and participated in the management. Physical Exam: Visit Vitals BP 121/72 Pulse 57 Temp 36.1 ???C (97 ???F) (Temporal) Resp 16 General: Alert and oriented x3. Cardiology: Normal rate, regular rhythm. Lungs: Clear to auscultation, no wheezes, rales or rhonchi, symmetric air entry. Abdomen: Soft, non tender, non distended. Assessment/Plan: Recurrent spontaneous pneumothorax Pleuritic chest pain Pain control Pulmonary and CT surgery on board. Shantal Carver MD [facility] 03-05-2025 Note - CT surgery onboard ed for possible VATS - Pulm onboarded for chest tube placement - Daily CXR - Toradol and norco for pain control - Supplemental O2 prn [facility] 03-05-2025 Note - Resume abilify/fluoxetine [facility] 03-05-2025 Note Hospital Medicine History and Physical 03/05/2025 3:02 PM THE HOSPITALIST TEAM PREFERS TO USE [employer] CHAT FOR NON-URGENT COMMUNICATION 7AM-7PM. IF I DO NOT RESPOND WITHIN 20 MINUTES OR URGENT MATTERS, PLEASE CALL THROUGH THE BENDING ROLL OPERATOR. FROM 7PM-7AM, PLEASE PAGE [phone](COVR). Chief Complaint No chief complaint on file. History of Present Illness Juliette Hernández is an 29 y.o. female w a PMH of spontaneous pneumothorax s/p pleurodesis in the beginning of January of this year who came as trasnfer from [place] with recurrence of pneumothorax. This is her third recurrence. Last admission pleurodesis was performed by pulmonary and chest tube was removed on 01/06. No clear etiology could be determined. Small 5mm pneumothorax was present at time of discharge. Today cxr showed moderate, 2.8cm pneumothorax. CT surgery onboarded along with pulmonary - and are considering VATS. She endorses some pain, but no SOB. Review of System and Physical Exam Temp: [36.4 ???C (97.5 ???F)] 36.4 ???C (97.5 ???F) Heart Rate: [64] 64 Resp: [14] 14 BP: (111)/(67) 111/67 Physical Exam Vitals and nursing note reviewed. Constitutional: General: She is not in acute distress. Appearance: Normal appearance. She is obese. She is ill-appearing. HENT: Head: Normocephalic. Mouth/Throat: Mouth: Mucous membranes are moist. Eyes: Conjunctiva/sclera: Conjunctivae normal. Cardiovascular: Rate and Rhythm: Normal rate and regular rhythm. Pulses: Normal pulses. Heart sounds: Normal heart sounds. No murmur heard. No friction rub. No gallop. Pulmonary: Effort: Pulmonary effort is normal. No respiratory distress. Breath sounds: Normal breath sounds. Decreased air movement (R apex) present. No wheezing, rhonchi or rales. Abdominal: General: Abdomen is flat. Bowel sounds are normal. There is no distension. Palpations: Abdomen is soft. There is no mass. Tenderness: There is no abdominal tenderness. There is no guarding. Musculoskeletal: General: No swelling, tenderness or deformity. Normal range of motion. Right lower leg: No edema. Left lower leg: No edema. Skin: General: Skin is warm. Capillary Refill: Capillary refill takes less than 2 seconds. Coloration: Skin is not jaundiced. Findings: No erythema, lesion or rash. Neurological: General: No focal deficit present. Mental Status: She is alert and oriented to person, place, and time. Mental status is at baseline. Cranial Nerves: No cranial nerve deficit. Sensory: No sensory deficit. Motor: No weakness. Psychiatric: Mood and Affect: Mood normal. Behavior: Behavior normal. Thought Content: Thought content normal. Judgment: Judgment normal. Review of Systems Constitutional: Negative for chills, diaphoresis, fatigue and fever. HENT: Negative for trouble swallowing. Eyes: Negative for visual disturbance. Respiratory: Negative for cough and shortness of breath. Cardiovascular: Positive for chest pain. Negative for leg swelling. Gastrointestinal: Negative for abdominal distention, abdominal pain, blood in stool, constipation, diarrhea, nausea and vomiting. Musculoskeletal: Negative for arthralgias and joint swelling. Skin: Negative for rash. Neurological: Negative for dizziness, tremors, syncope and numbness. All other systems reviewed and are negative. Assessment and Plan Assessment & Plan Recurrent pneumothorax - CT surgery onboarded for possible VATS - Pulm onboarded for chest tube placement - Daily CXR - Toradol and norco for pain control - Supplemental O2 prn Anxiety and depression - Resume abilify/fluoxetine History of substance dependence ([facility]) VTE Prophylaxis: Heparin subcutaneous ----- Focus of this inpatient stay will [...] this hospital stay by a member of [facility] Medicine. Past Medical History Past Medical History: Diagnosis Date Pneumothorax Past Surgical History No past surgical history on file. Social History Social History Socioeconomic History Marital status: Single [...] indicate opiate abuse, crack, cocaine Sexual activity: Defer Other Topics Concern Not on (more content not included)... [facility] 01-07-2025 Note Hospital Medicine Discharge Summary Final Discharge Diagnosis: Spontaneous pneumothorax H/o polysubstance abuse Heart murmur, aortic Iron deficiency anemia Admission Diagnosis: Spontaneous pneumothorax [J93.83] Hospital course: 29yoF with h/o polysubstance abuse who was admitted to [facility] on 01/01 for spontaneous pneumothorax. She was transferred from [facility] with chest pain and dyspnea. This was [...] CT Surgery and Pulmonary Dear Dr. Hudson, ECHO VASCULAR TECHNOLOGIST, Juliette is advised to follow up with you within 1-2 weeks. Items to follow up in ambulatory setting: Follow up CXR Follow-up with: CT Surgery and Pulmonary Scheduled appointments: Future Appointments Date Time Provider Department Center 02/25/2025 3:30 PM Leodan Hardwick MD [facility] PULM Comprehensiv Your medication list START taking [...] Medications These medications were sent to [facility] - [address] [place] [address] [facility] [place] [address], [facility] [address] acetaminophen 500 mg tablet ARIPiprazole 5 mg [...] family and documentation was 30 minutes. Signed Alecia Abarca MD Hospital Medicine 01/07/2025 4:59 PM CC: KUMAR Hudson [facility] 01-07-2025 Note Expand All Collapse All Cardiothoracic Surgery Progress Note 01/05/2025 Room: [address] [place] [address] Juliette Hernández is a 29 y.o. female with medical history significant for anxiety, depression, and polysubstance abuse with history of overdose. Medical history obtained from the patient and the medical records. She presenting as direct admission to [facility] early this morning, transferred from [facility]. Upon presentation to [facility], she complained of right sided chest pain [...] tube was placed. She was transferred to [facility] for surgical evaluation for possible VATS [...] Heart murmur, aortic History of substance dependence ([facility]) Anxiety and depression Plan: S/P 01/04 chemical pleurodesis, right side. -No respiratory complaints. No supplemental oxygen needs. SaO2 remains >98% on room air. No fever or chills. Ambulating without difficulty. -Chest tube removed 01/06. Subcutaneous emphysema improving on AM CXR. -Provided CT Surgery office number if reoccurrence happens again, then will need to discuss surgical intervention. -Can follow-up with flow match sofa cutter she sees at home in [place]. -No follow-up needed with CT Surgery outpatient. -Clinically stable to discharge per CT Surgery team. To reach Cardiothoracic Surgery Inpatient from 8am-4pm call Ascom #[phone]. Only use [employer] chat for general questions. If unable (more content not included)... [facility] 01-07-2025 Note Attestation signed by Narinder Valverde [...] Juliette Hernández; 29 y.o. Location: 3179/3179-01 Attending: Alecia Abarca MD Admit Date: 01/01/2025 Hospital Day: 6 Reason for Consult: Asked by Dr Alecia Abarca MD to see for primary spontaneous ptx. Subjective: Juliette Hernández is a 29 y.o. female with a past medical history depression and anxiety, history of substance abuse with history of overdose per EMR although patient denies, and alcohol use. Patient presented from [facility] as a direct admission due to spontaneous [...] was discharged home. Yesterday she presented to [facility] again with shortness of breath and chest pain/heaviness. She was found to have spontaneous pneumothorax. Chest tube was placed and she was transferred to [facility] for further management with possible VATS/pleurodesis. [...] 60 mg, ora (more content not included)... [facility] 01-06-2025 Note Expand All Collapse All Cardiothoracic Surgery Progress Note 01/05/2025 Room: [address] [place] [address] Juliette Hernández is a 29 y.o. female with medical history significant for anxiety, depression, and polysubstance abuse with history of overdose. Medical history obtained from the patient and the medical records. She presenting as direct admission to [facility] early this morning, transferred from [facility]. Upon presentation to [facility], she complained of right sided chest pain [...] tube was placed. She was transferred to [facility] for surgical evaluation for possible VATS [...] needs. SaO2 peter (more content not included)... [facility] 01-06-2025 Note Hospital Medicine Daily Progress Note - 01/06/2025 8:37 AM; Room: [facility]- Admission: 01/01/2025 12:02 AM; Length of stay: 5 days THE HOSPITALIST TEAM PREFERS TO USE [employer] FOR NON-URGENT COMMUNICATION 7AM-7PM. IF I DO NOT RESPOND WITHIN 20 MINUTES OR URGENT MATTERS, PLEASE CALL THROUGH THE BENDING ROLL OPERATOR. FROM 7PM-7AM, PLEASE PAGE [phone](COVR). Code Status: Full Code Barriers to Discharge: [...] 2.68 01/01/2025 Lab Results Component Value Date [id number] 299 01/01/2025 IRON 53 01/01/2025 TIBC 378 [...] Disposition: Home or Self Care () Signed Alecia Abarca MD [facility] Medicine 01/06/2025 8:37 AM [facility] 01-06-2025 Note Attestation signed by Narinder Valverde [...] Juliette Hernández; 29 y.o. Location: 3179/3179-01 Attending: Alecia Abarca MD Admit Date: 01/01/2025 Hospital Day: 5 Reason for Consult: Asked by Dr Alecia Abarca MD to see for primary spontaneous ptx. Subjective: Juliette Hernández is a 29 y.o. female with a past medical history depression and anxiety, history of substance abuse with history of overdose per EMR although patient denies, and alcohol use. Patient presented from [facility] as a direct admission due to spontaneous [...] was discharged home. Yesterday she presented to [facility] again with shortness of breath and chest pain/heaviness. She was found to have spontaneous pneumothorax. Chest tube was placed and she was transferred to [facility] for further management with possible VATS/pleurodesis. [...] medications: HYDROmorphone, naloxone (more content not included)... [facility] 01-05-2025 Note Attestation signed by Narinder Valverde [...] Juliette Hernández; 29 y.o. Location: 3179/3179-01 Attending: Alecia Abarca MD Admit Date: 01/01/2025 Hospital Day: 4 Reason for Consult: Asked by Dr Alecia Abarca MD to see for primary spontaneous ptx. Subjective: Juliette Hernández is a 29 y.o. female with a past medical history depression and anxiety, history of substance abuse with history of overdose per EMR although patient denies, and alcohol use. Patient presented from [facility] as a direct admission due to spontaneous [...] was discharged home. Yesterday she presented to [facility] again with shortness of breath and chest pain/heaviness. She was found to have spontaneous pneumothorax. Chest tube was placed and she was transferred to [facility] for further management with possible VATS/pleurodesis. [...] IV AND sodium (more content not included)... [facility] [place] 01-05-2025 Note Hospital Medicine Daily Progress Note - 01/05/2025 7:47 AM; Room: 3179/3179- Admission: 01/01/2025 12:02 AM; Length of stay: 4 days THE HOSPITALIST TEAM PREFERS TO USE [employer] FOR NON-URGENT COMMUNICATION 7AM-7PM. IF I DO NOT RESPOND WITHIN 20 MINUTES OR URGENT MATTERS, PLEASE CALL THROUGH THE BENDING ROLL OPERATOR. FROM 7PM-7AM, PLEASE PAGE [phone](COVR). Code Status: Full Code Barriers to Discharge: [...] Heart murmur, aortic History of substance dependence ([facility]) Anxiety and depression Assessment and Plan Spontaneous [...] 2.68 01/01/2025 Lab Results Component Value Date [id number] 299 01/01/2025 IRON 53 01/01/2025 TIBC 378 [...] Disposition: Home or Self Care () Signed Alecia Abarca MD Hospital Medicine 01/05/2025 7:47 AM [facility] [place] 01-05-2025 Note Cardiothoracic Surge ry Progress Note 01/05/2025 Room: [address] [place] [address] Juliette Hernández is a 29 y.o. female with medical history significant for anxiety, depression, and polysubstance abuse with history of overdose. Medical history obtained from the patient and the medical records. She presenting as direct admission to [facility] early this morning, transferred from [facility]. Upon presentation to [facility], she complained of right sided chest pain [...] tube was placed. She was transferred to [facility] for surgical evaluation for possible VATS [...] acute process Electron (more content not included)... [facility] [place] 01-04-2025 Note Attestation signed by Narinder Valverde [...] MD Pulmonary Disease & Critical Care Medicine [facility] 01-04-2025 Note Cardiothoracic Surge ry Progress Note 01/04/2025 Room: 3179/3179-01 [facility] Juliette Hernández is a 29 y.o. female with medical history significant for anxiety, depression, and polysubstance abuse with history of overdose. Medical history obtained from the patient and the medical records. She presenting as direct admission to [facility] early this morning, transferred from [facility]. Upon presentation to [facility], she complained of right sided chest pain [...] tube was placed. She was transferred to [facility] for surgical evaluation for possible VATS [...] Cardiothoracic Surgery Inpatient from 8am-4pm call Ascom #[phone]. Only use pbsi for general questions. If unable to reach Ascom Number call hospital heel washer stringing machine operator for Cardiothoracic Provider Bun Panner. Cardiothoracic Surgery outp (more content not included)... [facility] [place] 01-04-2025 Note Hospital Medicine Daily Progress Note - 01/04/2025 7:10 AM; Room: [facility] Admission: 01/01/2025 12:02 AM; Length of stay: 3 days THE HOSPITALIST TEAM PREFERS TO USE [employer] FOR NON-URGENT COMMUNICATION 7AM-7PM. IF I DO NOT RESPOND WITHIN 20 MINUTES OR URGENT MATTERS, PLEASE CALL THROUGH THE BENDING ROLL OPERATOR. FROM 7PM-7AM, PLEASE PAGE [phone](COVR). Code Status: Full Code Barriers to Discharge: [...] 2.68 01/01/2025 Lab Results Component Value Date [id number] 299 01/01/2025 IRON 53 01/01/2025 TIBC 378 01/01/2025 Imaging XR chest 1 view Narrative: XR CHEST 1 VIEW 01/03/2025 6:54 AM CLINICAL INDICATIONS: Check chest tube. COMPARISON: 01/02/2025 FINDINGS: Right pigtail drain remains in place Impression: No concerning residual pneumothorax is appreciated. No new airspace disease or infiltrate is noted. No acute process. Electronically signed: Haritha Ivan. Discharge Planning Signed Alecia Abarca MD [facility] Medicine 01/04/2025 7:10 AM [facility] [place] 01-03-2025 Note Hospital Medicine Daily Progress Note - 01/03/2025 7:10 AM; Room: [address] [place] [address] Admission: 01/01/2025 12:02 AM; Length of stay: 2 days THE HOSPITALIST TEAM PREFERS TO USE [employer] CHAT FOR NON-URGENT COMMUNICATION 7AM-7PM. IF I DO NOT RESPOND WITHIN 20 MINUTES OR URGENT MATTERS, PLEASE CALL THROUGH THE BENDING ROLL OPERATOR. FROM 7PM-7AM, PLEASE PAGE [phone](COVR). Code Status: Full Code Barriers to Discharge: [...] 2.68 01/01/2025 Lab Results Component Value Date [id number] 299 01/01/2025 IRON 53 01/01/2025 TIBC 378 [...] volume loss and partial collapse. Impression: Impression: Kkbri-al-oydgwjza right pneumothorax with right lung volume loss with partial (more content not included)... [facility] [place] 01-03-2025 Note Cardiothoracic Surge ry Progress Note 01/03/2025 Room: [address] [place] [address] Juliette Hernández is a 29 y.o. female with medical history significant for anxiety, depression, and polysubstance abuse with history of overdose. Medical history obtained from the patient and the medical records. She presenting as direct admission to [facility] early this morning, transferred from [facility]. Upon presentation to [facility], she complained of right sided chest pain [...] tube was placed. She was transferred to [facility] for surgical evaluation for possible VATS [...] procedure notes, radiology reports and imaging from [facility] for the month of December, which these events of PTX occurred. If this is, in fact, a recurrence, then we may consider surgical treatment after weighing risks and benefits. -Medical management per primary team. -CT Surgery will continue to follow. To reach Cardiothoracic Surgery Inpatient from 8am-4pm call Ascom #[phone]. Only use pbsi for general questions. If unable to reach Ascom Number call hospital heel washer stringing machine operator for Cardiothoracic Provider Bun Panner. Cardiothoracic (more content not included)... [facility] [place] 01-02-2025 Note Chest Tube Insertion Date/Time: 01/02/2025 10:00 AM Performed by: Vishnu Miramontes MD Authorized by: Vishnu Miramontes MD Consent: Consent obtained: Written Consent given by: Patient Risks, benefits, and alternatives were discussed: yes Risks discussed: Damage to surrounding structures and bleeding Colliers protocol: Procedure explained and questions answered to [...] material: 2-0 silk Dressinx4 sterile gauze Comments: Glaze Grinder: Michael Miller CNP Chest tube insertion requested [...] to confirm tube position, will follow result [facility] [place] 01-02-2025 Note Cardiothoracic Surge ry Progress Note 01/02/2025 Room: 3179/3179-01 Subjective Juliette Hernández is a 29 y.o. female with medical history significant for anxiety, depression, and polysubstance abuse with history of overdose. Medical history obtained from the patient and the medical records. She presenting as direct admission to [facility] early this morning, transferred from [facility]. Upon presentation to [facility], she complained of right sided chest pain [...] tube was placed. She was transferred to [facility] for surgical evaluation for possible VATS with pleurodesis. Interval: Overnight CXR obtained at 0200 this morning and showed 4.2 cm PTX. Patinet remained in no respiratory distress and hemodynamically stable. Connections checked per RN/DEICER REPAIRER PNEUMATIC of chest tube, dressing removed and checked that chest tube was in correct position. Ordered repeat CXR which showed decrease in size of PTX 3.3 cm. Patient remained stable. Plans for pulmonary consult for placement of new chest tube today. Objective Patient Vitals for the past 24 hrs: BP Temp Temp src Pulse Resp SpO2 Weight 01/02/25 0407 -- -- -- -- -- -- 81 kg (178 lb 9.2 oz) 01/02/25 0405 99/58 36.5 ???C (97.7 ???F) -- 62 [...] CHEST 1 VIEW - Impression - Impression: Bddqj-jo-kbeuiwwn right pneumothorax with right lung volume loss with partial collapse. Electronically signed: Guy Corea. XR CHEST 2 VIEWS - Impression - * Right chest tube, no pneumothorax. * No acute cardiopulmonary disease. * Normal heart size. Electronically signed: Checo Amaya MD. CT TRANSFER OF OUTSIDE FI (more content not included)... [facility] [place] 01-02-2025 Note Hospital Medicine Daily Progress Note - 01/02/2025 7:00 AM; Room: [address] [place] [address] Admission: 01/01/2025 12:02 AM; Length of stay: 1 days THE HOSPITALIST TEAM PREFERS TO USE [employer] FOR NON-URGENT COMMUNICATION 7AM-7PM. IF I DO NOT RESPOND WITHIN 20 MINUTES OR URGENT MATTERS, PLEASE CALL THROUGH THE BENDING ROLL OPERATOR. FROM 7PM-7AM, PLEASE PAGE [phone](COVR). Code Status: Full Code Barriers to Discharge: [...] Heart murmur, aortic History of substance dependence ([facility]) Anxiety and depression Assessment and Plan Spontaneous [...] 2.68 01/01/2025 Lab Results Component Value Date [id number] 299 01/01/2025 IRON 53 01/01/2025 TIBC 378 01/01/2025 Imaging XR chest 1 view Narrative: Single view chest History: Pneumothorax, follow-up Comparison: 12/24/2024 Findings: Single portable view of the chest. Small to moderate right pneumothorax measuring 4.2 to 4.3 cm. Right lung volume loss and partial collapse. Impression: Impression: Cctoa-tn-aeatdnpv right pneumothorax with right lung volume loss [...] Electronically signed: Guy Corea. Discharge Planning Signed Alecia Abarca MD Hospital Medicine 01/02/2025 7:00 AM [facility] [place] 01-01-2025 Note Patient came to echo lab for test but was crying in pain. I gave her the option to try test at a later time and she was agreeable. Will try again this afternoon. [facility] [place] 01-01-2025 Note Since this was the s econd episode the hospitalist at [facility] contact CTS at [facility] and it was decided to transfer patient to [facility] continue pain control incentive spirometry chest tube care follow-up with CTS will repeat labs and chest x-ray in the morning [facility] [place] 01-01-2025 Note Consider echocardiog keon murmur as a second right intercostal space no radiation and unchanged with handgrip and no exertional chest pain syncope or dyspnea [facility] [place] 01-01-2025 Note Hospital Medicine History and Physical 01/01/2025 1:11 AM THE HOSPITALIST TEAM PREFERS TO USE [employer] CHAT FOR NON-URGENT COMMUNICATION 7AM-7PM. IF I DO NOT RESPOND WITHIN 20 MINUTES OR URGENT MATTERS, PLEASE CALL THROUGH THE BENDING ROLL OPERATOR. FROM 7PM-7AM, PLEASE PAGE [phone](COVR). Chief Complaint No chief complaint on file. History of Present Illness Juliette Hernández is an 29 y.o. female admitted from [facility] where she presented with new onset chest [...] STDs denies hepatitis HIV she works at [employer] Review of System and Physical Exam Heart [...] was the second episode the hospitalist at [facility] contact CTS at [facility] and it was decided to transfer patient to [facility] continue pain control incentive spirometry chest [...] this hospital stay by a member of [facility] Medicine. Past Medical History History reviewed. [...] Never true Ran Out of Food in (more content not included)... [facility] [place] 02-21-2024 Emergency department Note HPI Chief Complaint [...] painful. She denies a rash anywhere else. [place] Coma Scale Score: 15 Patient History Past [...] PA-C 02/21/24 1101 documented in this encounter [facility] Work Phone: 02-21-2024 Physician Emergency department [...] Gonococcal infection, unspecified Gonorrhea in female Missed ([facility]) Missed Other abnormal findings in urine Leukocytes [...] length. I answered all questions. Procedure Procedures Rdaha Lima PA-C 02/21/24 1101 [facility] Work Phone: 10-16-2021 Note HNO ID: [id number] Author: Juan Antonio Esqueda PA-C Service: ? Author Type: Physician Glaze Grinder Type: Progress Notes Filed: 10/16/2021 10:24 AM Note Text: This note was created using Polwireriter. Subjective Juliette Hernández is a 26 year [...] Exam Vitals reviewed. Exam conducted with a registered nurse fetal present (Latia Pantoja MA present for exam). [...] Abstain from se (more content not included)... [facility] 07-15-2021 Note HNO ID: [id number] Author: Rubina Lala PA-C Service: ? Author Type: Physician Glaze Grinder Type: Progress Notes Filed: 07/15/2021 1:58 PM Note Text: This note was created using [employer]. Subjective Juliette Hernández is a 26 year [...] while awaiting COVID results. - 2019 CORONAVIRUS [facility] Evaluation note Diagnosis Multiple drug overdose, accidental or unintentional, initial encounter- Primary [facility] Diagnosis Trichomonas exposure- Primary Rash Rash and other nonspecific skin eruption documented in this encounter [facility] Work Phone: Evaluation noteNo assessment information available [facility] Work Phone: History of Present illness Narrative* [...] grammatical areas may persist related to the Polwire software * Chacorta Erwin MD * Office: * . [facility] Work Phone: History of Present illness Narrative* Patient has sexual pain associated with myofascial etiology previously discussed multiple times * Worse now reports doing Kegel exercises discussed that this exacerbates muscle tension as it does not include the relaxation phase reputable muscles causes tenderness worsening of pain * Discussed physical therapy * Discussed trigger point injection Botox injection Kerry therapy [facility] Work Phone: Hospital Discharge instructions* Attachments The following attachments cannot be sent through Care Everywhere. * Drug Overdose: Multidrug (Pakistani) [facility]* Attachments The following attachments cannot be sent through Care Everywhere. * Skin Rash ED (Pakistani) * Sexually transmitted infections (Pakistani) [facility] Hospital Discharge instructions Additional Instructions Patient Instructions: You came to the ER today with dental pain. Dental pain is often caused by irritation of the nerves in the center of a tooth. This irritation can be due to a cavity, an infection, a cracked tooth, or gum disease. Based on your exam, you have no fever, and are not immunocompromised. Your airway is clear, and there are no signs of serious infections like a retropharyngeal abscess, peritonsillar abscess, or Pablo s angina. Your throat and mouth exam showed no bleeding sockets, or other concerning findings. You have no issues with your breathing. You are advised to continue managing your pain with bcgd-opb-tuvdznt medications like ibuprofen (Advil) or acetaminophen (Tylenol) until you can see a dentist. If prescribed any medications, please take them as directed. Things to watch for and reasons to come back include: - Trouble breathing or swallowing - Swelling in your face or neck - Fever or chills - Difficulty opening or closing your mouth - Signs of infection, such as pus or red streaks around the area In the meantime, here are some tips to manage your pain: - Apply ice or a cold pack to the outside of your cheek for 10-20 minutes at a time. Use a thin cloth between the ice and your skin. Do not use heat. - Avoid very hot, cold, or sweet foods and drinks that may make your pain worse. - Rinse your mouth with warm salt water every 2 hours to help with pain and swelling. Mix 1 teaspoon of salt in 8 ounces of water. - Avoid smoking or using spit tobacco, as it can slow healing and make gum problems worse. If your symptoms worsen or you have any concerns, don t hesitate to seek further medical care. Follow up with your dentist for a more detailed evaluation and treatment. It is very important that you follow up with your dentist or primary care provider in the next 1-2 days unless instructed to do otherwise. If you do not have a dentist please let staff know so you can be given information or use the [employer] website at findadentist.ada.org for providers in your area. If you do not have a primary care provider, you can contact the [facility] and ask about being established for primary care services. If you require specialist follow up, such as with an orthopedic physician, chucking machine set up operator tool, urologist, or other medical specialty, you should contact the specialty clinic as soon as possible to schedule a follow up appointment. If you are established with a specialist, you can contact your preferred physician for follow up. If you are not already established with the specialist you need, you may have contact information provided to you with these discharge instructions. If you are being prescribed medications, take exactly as prescribed. Antibiotics, if prescribed, should be taken until the entire course is completed. You should not have left over antibiotics. Continue to take any previously prescribed home medications unless instructed otherwise. If you are experiencing fever or mild to moderate pain, you should first take Tylenol or ibuprofen available tmqh-vmi-apgymuw. Medications, if prescribed to treat pain from the emergency department, are intended to provide relief for severe pain that is not relieved by other methods of pain relief, you should use these medications cautiously as many are known to cause sedation/sleepiness, increased risk for falls, and other effects such as constipation. If your symptoms worsen please return to the ED or if you have any other [facility] Work Phone: Summary Purpose Family History [...] Status:Active Advance Directives No Advanced Directives Records Found Advance Directive Response Recorded Date/ Time Advance Directives No January 25 6:22pm Reason for Referral * UTI (urinary tract infection) * UTI (urinary tract infection) * OverdoseOverdose Chief Complaint * Lt big toe fx 11/19 * xrays at * Est pt here for pain with intercourse and with insert of tampon * registered nurse fetal mariam rma * Est pt here for pain with intercourse and with insert of tampon * registered nurse fetal mariam rma Chief Complaint and Reason for Visit Chief Complaint Admit Date tooth pain January 25, 2025 5:4 5pm Additional Source Comments INFORMATION SOURCE (unrecogn ized section and content) DATE CREATED AUTHOR 01/26/[address] [facility] DATE CREATED AUTHOR AUTHOR'S ORGANIZ ATION 12/11/2021 [facility] DATE CREATED AUTHOR AUTHOR'S ORGANIZ ATION 01/03/2023 [facility] DATE CREATED AUTHOR AUTHOR'S ORGANIZ ATION 01/11/2023 [facility] DATE CREATED AUTHOR AUTHOR'S ORGANIZ ATION 01/12/2023 [employer] DATE CREATED AUTHOR AUTHOR'S ORGANIZ ATION 06/21/2023 [facility] DATE CREATED AUTHOR AUTHOR'S ORGANIZ ATION 02/22/2024 [facility] DATE CREATED AUTHOR AUTHOR'S ORGANIZ ATION 12/13/2024 [facility] pital DATE CREATED AUTHOR AUTHOR'S ORGANIZ ATION 02/09/2025 [facility] DATE CREATED AUTHOR AUTHOR'S ORGANIZ ATION 03/15/2025 [facility] <item><item><item><item><item> Privacy Markings (unrecogniz ed section [...] Skinner RN) 0004 (Stopped - Provider: Sheila Edwards [...] Care Teams (unrecognized sec tion and content) Distributor Operator Relationship Specialty Start Date End Date Chacorta Erwin MD [address] [facility], [address] [place] [address] [id number] PCP - [facility] OLMSTEAD PCP 08/04/23 Generic Provider, [place] [address] PCP - General Museum Specialist 02/21/24 Distributor Operator Relationship Specialty Start Date End Date Sunny Lilly MD [address] [place] [place], [place] [id number] PCP - General Neurology 06/25/23 Distributor Operator Relationship Specialty Start Date End Date Sunny Lilly MD [address] [place] [address] PCP - General Neurology 06/25/23 Distributor Operator Relationship Specialty Start Date End Date Sunny Lilly MD [address] [place] [address] PCP - General Neurology 06/25/23 Team Status: Active Member Role Status Dates CANDE Almanzar Primary Care Provider Active Team Status: Active Member Role Status Dates Javan Arita DO Attending Provider Active Sta rt: January 01, 2025 Team Status: Inactive Member Role Status Dates Óscar Velasquez PA-C Emergency Provider Active Start: January 25, 2025 End: January 25, 2025 CANDE Almanzar Primary Care Provider Active Start: January 25, 2025 End: January 25, 2025 Goals (unrecognized section and content) Goals may be documented in a n alternate section FOR RECORDS PERTAINING TO PATIENTS WHO ARE [...] BE BASED ON THE PRIMARY CLINICAL RECORDS. [employer] provides no warranty or guarantee of the accuracy or completeness of information in this document.
== END 2025-03-18 09:51 | disposition home or self-care (01) ==
LOC: LAB 09:50
PROVIDERS: PCP Nurse Practitioner Family; Visit Provider Nurse Practitioner Family
DX: N89.8 Other specified noninflammatory disorders of vagina (principal)
CPT/HCPCS: 87070; 87077

== ENCOUNTER 2025-03-31 15:59 | Emergency (ER) | payer OTHER, SELFPAY ==
--- OUTSIDE RECORDS SUMMARY | 2024-07-10 04:45 | XMS_ITS ---
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 * Medical History: Objective: * Vitals: Assessment: Plan: * Treatment: * Billing Information: * Visit Code: * Procedure Codes: * Electronic signature of Katie Jama DDS on 03/31/2025 at 04:05 PM EDT Sign off status: Pending * Provider: Sarthak Jama DDS Date: 0 07/10/2024 Generated for Lindsey vieira/Genevieve/Miahitting on: 03/31/2025 04:05 PM EDT
--- OUTSIDE RECORDS SUMMARY | 2025-03-18 05:00 | XMS_ITS ---
Author Organization [facility] in [place] Address [address] [place] [address] Care Team Providers Care Industrial Chemicals Supervisor Name Role Phone Millicent Hudson Primary Care Provider Allergies No Known Allergies Results Component Value Reference Range Notes UA (Urinalysis, Dipstix only - w/o micro) Reviewed date:03/18/2025 09:11:56 AM Interpretation: Performing Lab: Notes/Report: COLOR yellow Yellow - Bree - CLARITY clear Clear - Clear GLUCOSE - 0 - 133 MG/DL ALBUMIN - NEG - NEG MG/DL BILIRUBIN - NEG - NEG MG/DL SPECIFIC GRAVITY 1.020 1.001 - 1.035 KETONES - NEG - NEG MG/DL BLOOD, UR - PH, UR 5 5 - 9 UROBILNOGEN - 0.2 - 1 MG/DL NITRITE - NEG - NEG ESTERASE (BALBINA) - NEG - NEG MG/DL REASON FOR VISIT possible yeast infection, symptoms are itchy, burning Medications Medication SIG (Take, Route, Fr equency, Duration) Notes Start Date End Date Status Gabapentin 300 MG 1 capsule Orally tid Active Omeprazole 20 MG 1 capsule 1/2 to 1 h our before morning meal Orally Once a day for 30 days 03/02/2025 Active traMADol HCl 50 MG 1 tablet as needed Orally tid for 3 days J93.9 J93.9 01/11/2025 Active Fluconazole 150 MG 1 tablet Orally once for 1 days 03/18/2025 Active PROzac 20 MG 3 capsules Orally On ce a day for 30 days Active Social History Tobacco Use: Social History Observation Description Date Details (start date - stop date) Never Smoker NA - NA Tobacco Control (Standard) Question Answer Notes Tobacco use: Nonsmoker AUDIT-C (Standard) Question Answer Notes Did you have a drink containing alcohol in the p ast year? No Points 0 Interpretation Negative Vital Signs Weight 192.8 lbs 03/18/2025 Height 66 in 03/18/2025 Blood pressure systolic 122 mm Hg 03/18/20 25 Blood pressure diastolic 70 mm Hg 025 BMI 31.12 kg/m2 03/18/2025 Encounters Encounter Location Date Provider Diagnosis [facility] [address] [place] [address] 03/18/2025 Millicent Hudson Urine frequency R35.0 and Vaginal itching N89.8 Assessments Encounter Date Diagnosis (ICD Code) Assessment Notes Treatment Notes Treatment Clinical Notes Section Notes 03/18/2025 Urine frequency (ICD-10 - R35.0) 03/18/2025 Vaginal itching (ICD-10 - N89.8) Plan Of Treatment Medication Medication Name Sig Start Date Stop Date Notes Fluconazole 150 MG 1 tablet Orally once for 1 days 025 Pending Test Test Name Order Date CULTURE, GENITAL 03/18/2025 Next Appt Details Follow Up: prn, Reason: Progress Notes * Juliette HAGANDOB:1995 ([age] yo F)Acc No.[id number]:03/18/2025 Progress Note Patient: Juliette SELF Provider: Jaswant Hudson ([facility]), KUMAR :1995 A ge:29 Y S ex:Female Date:03/18/2025 [id number] Check In:08:54 AM ESTCheck O ut:09:22 AM EST Subjective: * Chief Complaints: * 1 . Possible yeast infection, symptoms are itchy, burning. * HPI: G eneral: itchy , burning no discharge hx of BV urine here ok. * ROS: G eneral/Constitutional: Fever d enies. H eadache d enies. W eight loss?denies. O phthalmologic: Discharge d enies. E ye Pain d enies. I tching and redness d enies. E NT: Nasal discharge d enies. N malinda congestion d enies.?Sore throat d enies. C ardiovascular: Chest tightness/ heavy pressure d enies. R apid heart rate d enies. S welling of extremities d enies. C hest pain d enies. ? R espiratory: Productive cough d enies. C hest pain d enies. C ough d enies. S hortness of breath d enies. W heezing d enies. ? G astrointestinal: Abdominal pain d enies. C onstipation d enies. D ecreased appetite d enies. D iarrhea d enies. N ausea d enies. V omiting?denies. G enitourinary: Urinary incontinence d enies. P atient complaining of?vaginal itching and burning. P ainful urination d enies. M usculoskeletal: Back pain d enies. N mariana pain d enies. M uscle aches d enies. S kin: Rash d enies. S kin lesion(s) d enies. ? * Active Problem List F10.10 Alcohol abuse, uncom plicated Modified On:12/25/2024/U Status:confirmed I10 High blood pressure Modified On:01/04/2025/U Status:confirmed F11.10 Opiate abuse, episod ic Modified On:01/11/2025/U Status:confirmed F41.8 Anxiety and depressi on Modified On:01/14/2025/U Status:confirmed K21.9 GERD (gastroesophage al reflux disease) Modified On:03/02/2025/U Status:confirmed * Medical History: A nxiety, Depression. * Hospitalization/Major Diagno stic Procedure: p neumothorax 01/26. * Family History: F ather: alive. M other: , diagnosed with Unspecified heart disease. B rother(s): alive. S ister(s): alive. 3 brother(s) , 1 sister(s) . 3 son(s) , 1 daughter(s) . .? * Social History: T obacco Use: T obacco Control (Standard) T obacco use: N onsmoker D rug/Alcohol: A JACINDA-C (Standard) D id you have a drink containing alcohol in the past year? N o P oints 0 I nterpretation N egative * Medications: T aking Gabapentin 300 MG Capsule 1 capsule Orally tid , Taking Omeprazole 20 MG Capsule Delayed Release 1 capsule 1/2 to 1 hour before morning meal Orally Once a day , Taking PROzac(FLUoxetine HCl) 20 MG Capsule 3 capsules Orally Once a day , Taking traMADol HCl 50 MG Tablet 1 tablet as needed Orally tid J93.9, Notes to Pharmacist: J93.9, Medication List reviewed and reconciled with the patient * Allergies: N .K.D.A. Objective: * Vitals: W t:192.8lbs, Ht: 66 in, BP:122/70mm Hg, BMI:31.12Index, Ht-cm: 167.64 cm, Wt-k.45 kg. * Examination: G eneral Examinations: GENERAL APPEARANCE: a lert and oriented, i n no acute distress. EYES: c onjunctiva normal, sclera non-icteric. NOSE: n ormal external appearance. LUNGS: c lear to auscultation bilaterally. CARDIO: r egular rate and rhythm, S1, S2 normal. ABDOMEN: s oft, nontender. MUSCULOSKELETAL: G ait and station normal. SKIN: w arm and dry. Assessment: * Assessment: 1. V aginal itching - N89.8 (Primary) 2 . U rine frequency - R35.0 ? Plan: * Treatment: 2. U rine frequency L AB: UA (Urinalysis, Dipstix only - w/o micro) (Collection Date & Time - 03/18/2025) * Labs: * L ab: UA (Urinalysis, Dipstix only - w/o micro) (Collection Date & Time - 03/18/2025) Value Reference Range C OLOR yellow Yellow - Bree - * C LARITY clear Clear - Clear * G LUCOSE - 0 - 133 MG/DL * A LBUMIN - NEG - NEG MG/DL * B ILIRUBIN - NEG - NEG MG/DL * S PECIFIC GRAVITY 1.020 1.001 - 1.035 * K ETONES - NEG - NEG MG/DL * B LOOD, UR - * P H, UR 5 5 - 9 * U ROBILNOGEN - 0.2 - 1 MG/DL * N ITRITE - NEG - NEG * E STERASE (BALBINA) - NEG - NEG MG/DL * Procedure Codes: 8 1002 URINALYSIS WO MICRO * Preventive Medicine: Screenings/Counseling: B MT ACTION PLAN Above Normal BMI Follow-up D ietary management education, guidance, and counseling * Follow Up: p rn * * Electronically signed by Haydee Hudson , BLUE LINE TRIMMER, BED SETTER.CREATIVE ARTS MUSIC THERAPIST.[id number] on 03/19/2025 at 09:12 AM EDT Sign off status: Completed Visit Status: C HK (Check Out) true * Provider: Jaswant Hudson ([facility]), CREATIVE ARTS MUSIC THERAPIST Date: 03/18/2025 Generated for Printi ng/Faxing/eTransmitting on: 03/31/2025 04:05 PM EDT History and Physical Notes * HPI (History of Present Illness) Category Sub-Category Detail Notes Category Not es General itchy , burning no discharge hx of BV urine here ok Examination Category Sub-Category Detail Notes Category Not es General Examinations GENERAL APPEARANCE: alert a nd oriented, in no acute distress EYES: conjunctiva normal, sclera non-icteric EARS: NOSE: normal external appe arance THROAT: CARDIO: regular rate and rhy thm, S1, S2 normal LUNGS: clear to auscultatio n bilaterally ABDOMEN: soft, nontender SKIN: warm and dry BACK: MUSCULOSKELETAL: Gait and station nor mal LYMPH NODES:
--- OUTSIDE RECORDS SUMMARY | 2025-03-18 05:25 | XMS_ITS ---
Author Organization [facility] in [place] Address [address] [place] [address] Care Team Providers Care Combination Technician Name Role Phone Millicent Hudson Primary Care Provider [phone] REASON FOR VISIT vaginal culture Encounters Encounter Location Date Provider Diagnosis [facility] [address] [place] [address] 03/18/2025 Millicent Hudson Plan Of Treatment No Information Progress Notes * Juliette HAGANDOB:1995 ([age] yo F)Acc No.[id number]:03/18/2025 Patient: Juliette SELF :1995 A ge:29 Y S ex:Female [address] [place], [address] * true * Date: Generated for Lindsey vieira/Genevieve/eTransmitting on: 0 03/31/2025 04:05 PM EDT
--- OUTSIDE RECORDS SUMMARY | 2025-03-18 12:32 | XMS_ITS | Encounter Summary ---
Author Organization [facility] Address [address] [place] [address] Care Team Providers Care Product Safety Professional Name Role Phone Millicent Hudson CNP Primary Care Provider [phone] Encounter Details Date Type Department Care Team (Latest Contact Info) Description 03/18/2025 12:32 PM EDT - 03/18/2025 11:59 PM EDT Hospital Encounter [facility] [address] [place] [phone] S/P video-assisted thoracoscopic surgery (VATS) Discharge Disposition: Home or Self Care () Social History Tobacco Use Types Packs/Day Years Used Date Smoking Tobacco: Never Smokeless Tobacco: Never Alcohol Use Standard Drinks/Week Comments Not Currently 0 (1 standard drink = 0.6 oz pur e alcohol) [facility] Utilities Answer Date Recorded In the past 12 months has e [employer], gas, oil, or water Impact threatened to shut off services in your home? No 03/05/2025 Humiliation, Afraid, Rape, and Kick questionnair e Answer Date Recorded Within the last year, have y ou been afraid of your partner or ex-partner? No 03/05/2025 Emotionally Abused Not on file 03/05/2025 Physically Abused Not on file 03/05/2025 Sexually Abused Not on file 03/05/2025 Overall Financial Resource Strain (CARDIA) Answe r Date Recorded How hard is it for you to pa y for the very basics like food, housing, medical care, and heating? Somewhat hard 03/05/2025 PHQ-2 Answer Date Recorded Patient Health Questionnaire-2 Score 0 03/18/2025 Transportation Answer Date Recorded In the past 12 months, has l ack of transportation kept you from medical appointments or from getting medications? No 03/05/2025 Lack of Transportation (Non-Medical) Not on file 03/05/2025 Housing Stability Vital Sign Answer Yuri e Recorded In the last 12 months, was t here a time when you were not able to pay the mortgage or rent on time? No 03/05/2025 In the past 12 months, how m any times have you moved where you were living? 1 03/05/2025 At any time in the past 12 m [facility], were you homeless or living in a snf (including now)? No 03/05/2025 Hunger Vital Sign Answer Date Recorded Within the past 12 months, y ou worried that your food would run out before you got the money to buy more. Sometimes true Ran Out of Food in the Last Year Not on file 03/05/2025 Sex and Gender Information Value Date Recorded Sex Assigned at Not on file Gender Identity Not on file Sexual Orientation Not on file documented as of this encounter Medications at Time of Discharge Medication Sig Dispensed Refills Start Date End Date acetaminophen (Tylenol) 500 mg tabletIndications:Recur rent pneumothorax Take 1 tablet (500 mg) by mouth every 6 (six) hours if needed for mild pain (1-3 pain score) for up to 291 doses. 30 tablet 03/11/2025 docusate sodium (Colace) 100 mg capsuleIndications:Recu rrent pneumothorax Take 2 capsules (200 mg) by mouth if needed in the morning and at bedtime (Narcotic Constipation). 60 capsule 03/11/2025 04/10/2025 FLUoxetine (PROzac) 60 mg tablet Take 60 mg by mouth in the morning. gabapentin (Neurontin) 300 mg capsule 1 capsule if needed. ibuprofen 800 mg tabletIndications:Muscl e spasm Take 1 tablet (800 mg) by mouth if needed in the morning and at bedtime for moderate pain (4-7 pain score). 30 tablet 03/18/2025 04/17/2025 methocarbamol (Robaxin) 750 mg tabletIndications:Muscl e spasm Take 1 tablet (750 mg) by mouth if needed in the morning, at noon, and at bedtime for muscle spasms. 40 tablet 03/18/2025 04/17/2025 documented as of this encounter Plan of Treatment Not on file documented as of this encounter Procedures Procedure Name Priority Date/Time Associated Diagnosis Comments XR CHEST 2 VIEWS Routine 03/18/2025 1:07 PM EDT S/P video-assisted thoracoscopic surgery (VATS) documented in this encounter Results * XR chest 2 views (03/18/2025 1:07 PM EDT) Anatomical Region Laterality Modality Chest Computed Radiogr aphy 03/19/2025 8:06 AM EDT Impressions 03/19/2025 8:07 AM EDT * Trace right pleural effusion versus pleural thickening. No right pneumothorax. Electronically signed: Salazar Sr MD. Narrative 03/19/2025 8:07 AM EDT CHEST 2 VIEWS HISTORY: Status post VATS, spontaneous pneumothorax COMPARISON: 03/11/2025 FINDINGS: Postsurgical changes in the right lung apex. Trace right pleural effusion versus pleural thickening. No pneumothorax. Left lung is clear. No left pleural effusion or pneumothorax. Procedure Note Salazar Sr MD - 03/19/2025 CHEST 2 VIEWS HISTORY: Status post VATS, spontaneous pneumothorax COMPARISON: 03/11/2025 FINDINGS: Postsurgical changes in the right lung apex. Trace rightpleural effusion versus pleural thickening. No pneumothorax. Left lung is clear.No left pleural effusion or pneumothorax. IMPRESSION: *Trace right pleural effusion versus pleural thickening. No right pneumothorax. Electronically signed: Salazar Sr MD. Nasim Perez MD IMG XR PROCEDURES documented in this encounter Visit Diagnoses Diagnosis S/P video-assisted thoracoscopic surgery (VATS) documented in this encounter Care Teams Product Safety Professional Relationship Specialty Start Date End Date Millicent Hudson CNP [facility], [address] [place] [id number] PCP - General Family Medicine 12/05/24 documented as of this encounter
--- OUTSIDE RECORDS SUMMARY | 2025-03-18 12:45 | XMS_ITS | Encounter Summary ---
Author Organization [facility] Address [address] [place] [address] Care Team Providers Care Foreign Student Adviser Name Role Phone Millicent Hudson CNP Primary Care Provider Encounter Details Date Type Department Care Team (Late st Contact Info) Description 03/18/2025 12:45 PM EDT Lab [facility] Outpatient Draw Station [address] [place] [address] S/P video-assisted thoracoscopic surgery (VATS); Postoperative anemia due to acute blood loss Social History Tobacco Use Types Packs/Day Years Used Date Smoking Tobacco: Never Smokeless Tobacco: Never Alcohol Use Standard Drinks/Week Comments Not Currently 0 (1 standard drink = 0.6 oz pur e alcohol) [facility] Utilities Answer Date Recorded In the past 12 months has th e electric, gas, oil, or water [employer] threatened to shut off services in your [...] any time in the past 12 m [facility], were you homeless or living in a halfway (including now)? No 03/05/2025 Hunger Vital Sign [...] on file documented as of this encounter Plan of Treatment Not on file documented as of this encounter Procedures Procedure Name Priority Date/Time Associated Diagnosis Comments CBC WITH AUTO DIFFERENTIAL Routine 03/18/2025 12:50 PM EDT S/P video-assisted thoracoscopic surgery (VATS) Postoperative anemia due to acute blood loss CBC AND DIFFERENTIAL Routine 03/18/2025 12:50 PM EDT S/P video-assisted thoracoscopic surgery (VATS) Postoperative anemia due to acute blood loss MAGNESIUM Routine 03/18/2025 12:50 PM EDT S/P video-assisted thoracoscopic surgery (VATS) COMPREHENSIVE METABOLIC PANEL Routine 03/18/2025 12:50 PM EDT S/P video-assisted thoracoscopic surgery (VATS) documented in this encounter Results * (ABNORMAL) CBC auto differential (03/18/2025 12:50 PM EDT) Auto WBC 7.29 4.00 - 10.60 10*3/uL 03/18/2025 1:26 PM EDT [facility] HOSPITAL LAB ([facility]) RBC 4.04 3.80 - 5.00 10*6/uL 03/18/2025 1:26 PM EDT [facility] ([facility]) Hemoglobin 10.7(L) 12.0 - 15.0 g/dL 03/18/2025 1:26 PM EDT [facility] ([facility]) Hematocrit 32.9(L) 36.0 - 45.0 % 03/18/2025 1: PM EDT [facility] ([facility]) MCV 81.4(L) 82.0 - 98.0 fL 03/18/2025 1:26 PM EDT [facility] ([facility]) MCH 26.5(L) 27.0 - 33.0 pg 03/18/2025 1: PM EDT [facility] ([facility]) MCHC 32.5 32.0 - 35.0 g/dL 03/18/2025 1: PM EDT [facility] ([facility]) RDW 13.6 11.5 - 15.0 % 03/18/2025 1: PM EDT [facility] ([facility]) Neutrophils % 69.0 40.0 - 72.0 % 03/18/2025 1:26 PM EDT [facility] ([facility]) Lymphocytes % 16.9(L) 20.0 - 45.0 % 03/18/2025 1: PM EDT [facility] ([facility]) Monocytes % 10.2 5.0 - 12.0 % 03/18/2025 1: PM EDT [facility] ([facility]) Eosinophils % 2.5 0.0 - 6.0 % 03/18/2025 1: PM EDT [facility] ([facility]) Basophils % 1.0 0.0 - 1.0 % 03/18/2025 1:26 PM EDT [facility] ([facility]) Neutrophils Absolute 5.04 1.60 - 7.60 10*3/uL 03/18/2025 1:26 PM EDT [facility] ([facility]) Lymphocytes Absolute 1.23 1.20 - 4.00 10*3/uL 03/18/2025 1:26 PM EDT [facility] ([facility]) Monocytes Absolute 0.74 0.10 - 1.00 10*3/uL 03/18/2025 1:26 PM EDT [facility] ([facility]) Eosinophils Absolute 0.18 0.00 - 0.50 10*3/uL 03/18/2025 1:26 PM EDT [facility] ([facility]) Basophils Absolute 0.07 0.00 - 0.20 10*3/uL 03/18/2025 1:26 PM EDT [facility] ([facility]) Platelets 342 150 - 400 10*3/uL 03/18/2025 1:26 PM EDT [facility] ([facility]) nRBC % 0.0 0 % 03/18/2025 1:26 PM EDT [facility] ([facility]) Immature Granulocytes % 0.4 0.0 - 1.0 % 03/18/2025 1:26 PM EDT [facility] ([facility]) Immature Granulocytes Absolute 0.03 0.00 - 0.20 10*3/uL 03/18/2025 1:26 PM EDT [facility] ([facility]) Blood Venous blood specimen / Unknown Venipuncture / Unknown 03/18/2025 12:50 PM EDT 03/18/2025 1:09 PM EDT Nasim Perez MD LAB BLOOD ORDERABLES [facility]) [address] [place], [place] [id number] * (ABNORMAL) Magnesium (03/18/2025 12:50 PM EDT) Magnesium 1.8(L) 1.9 - 2.7 mg/dL 03/18/2025 1:30 PM EDT [facility] ([facility]) Blood Venous blood specimen / Unknown Venipuncture / Unknown 03/18/2025 12:50 PM EDT 03/18/2025 1:06 PM EDT Nasim Perez MD LAB BLOOD ORDERABLES [facility]) [address] [place], [place] [id number] * (ABNORMAL) Comprehensive metabolic panel (03/18/2025 12:50 PM EDT) Sodium 136 136 - 145 mmol/L 03/18/2025 1:30 PM EDT [facility] ([facility]) Potassium 4.0 3.5 - 5.1 mmol/L 03/18/2025 1:30 PM EDT [facility] ([facility]) Chloride 101 98 - 107 mmol/L 03/18/2025 1:30 PM EDT [facility] ([facility]) CO2 31 21 - 31 mmol/L 03/18/2025 1:30 PM EDT [facility] ([facility]) Anion Gap 8 7 - 20 mmol/L 03/18/2025 1:30 PM EDT [facility] ([facility]) BUN 9 7 - 25 mg/dL 03/18/2025 1:30 PM EDT [facility] ([facility]) Creatinine 0.56(L) 0.60 - 1.20 mg/dL 03/18/2025 1:30 PM EDT [facility] ([facility]) BUN/Creatinine Ratio 16.1 03/04 1:30 PM EDT [facility] ([facility]) Glucose 112(H) 70 - 100 mg/dL 03/18/2025 1:30 PM EDT [facility] ([facility]) Calcium 9.1 8.6 - 10.3 mg/dL 03/18/2025 1:30 PM EDT [facility] ([facility]) AST 18 13 - 39 U/L 03/18/2025 1:30 PM EDT [facility] ([facility]) ALT (SGPT) 22 7 - 52 U/L 03/18/2025 1:30 PM EDT [facility] ([facility]) Alkaline Phosphatase 80 34 - 104 U/L 03/18/2025 1:30 PM EDT [facility] ([facility]) Total Protein 7.0 6.0 - 8.3 g/dL 03/18/2025 1:30 PM EDT [facility] ([facility]) Albumin 4.2 3.5 - 5.7 g/dL 03/18/2025 1:30 PM T [facility] ([facility]) Total Bilirubin 0.3 0.3 - 1.0 mg/dL 03/18/2025 1:30 PM EDT [facility] ([facility]) eGFR 125.8 >60.0 mL/min/1. 73m*2 03/18/2025 1:30 PM EDT [facility] ([facility]) Comment:The [facility] s estimated glomerular filtration rate (eGFR) will no longer include consideration of race in its calculation. The [employer] s eGFR Task Force developed new recommendations for [...] disproportionately affect any one group of individuals. Blood Venous blood specimen / Unknown Venipuncture / Unknown 03/18/2025 12:50 PM EDT 03/18/2025 1:06 PM EDT Nasim Perez MD LAB BLOOD ORDERABLES [facility] ([facility]) [address] [place] [address] documented in this encounter Visit Diagnoses Diagnosis S/P video-assisted thoracoscopic surgery (VATS) Postoperative anemia due to acute blood loss Acute posthemorrhagic anemia documented in this encounter Care Teams Foreign Student Adviser Relationship Specialty Start Date End Date Millicent Hudson CNP [facility], [place], [facility] [place] [address] PCP - General Family Medicine 12/05/24 documented as of this encounter
--- OUTSIDE RECORDS SUMMARY | 2025-03-18 13:15 | XMS_ITS | Encounter Summary ---
Author Organization [facility] Address [address] [address] Care Team Providers Care Vessel Builder Name Role Phone Millicent Hudson CNP Primary Care Provider [phone] Reason for Visit * Reason Comments Post-op Xray and labs comple cyril, patient stated that she is sore under right arm pit and breast area. Encounter Details Date Type Department Care Team (Late st Contact Info) Description 03/18/2025 1:15 PM EDT Office Visit [facility] [address] [place] [id number] Felisha Hawk CNP [address] [place] [address] Muscle spasm (Primary Dx); Recurrent pneumothorax Social History Tobacco Use Types Packs/Day Years Used Date Smoking Tobacco: Never Smokeless Tobacco: Never Alcohol Use Standard Drinks/Week Comments Not Currently 0 (1 standard drink = 0.6 oz pur e alcohol) [facility] Utilities Answer Date Recorded In the past 12 months has [employer], gas, oil, or water [employer] threatened to shut off services in your [...] any time in the past 12 m [facility], were you homeless or living in a usp (including now)? No 03/05/2025 Hunger Vital Sign [...] on file documented as of this encounter Last Filed Vital Signs Vital Sign Reading Time Taken Comments Blood Pressure 136/81 03/18/2025 1:28 PM EDT Pulse 89 03/18/2025 1:28 PM EDT Temperature - - Respiratory Rate - - Oxygen Saturation 98% 03/18/2025 1:28 PM EDT Inhaled Oxygen Concentration - - Weight 87.1 kg (192 lb) 03/18/2025 1:28 PM EDT Height 167.6 cm (5' 6 ) 03/18/2025 1:28 PM EDT Body Mass Index 30.99 03/18/2025 1:28 PM EDT documented in this encounter Progress Notes * Felisha Hawk CNP - 03/18/2025 1:15 PM EDT Subjective Patient ID: Juliette Hernández is a 29 y.o. female who presents for Post-op (Xray and labs completed, patient stated that she is sore under right arm pit and breast area. ). HPI Patient is here for postoperative evaluation. She was discharged home from the hospital following aright VATS procedure. The surgical incision and chest tube wound are healing well. There is a smallamount of underlying muscle swelling underneath the thoracoscopy incision, appropriately tender forpostoperative timeframe. There is no warmth or redness. No underlying fluctuance or crepitus. Incisions are approximated. There is no drainage. No signs or symptoms of infection whatsoever. Patient denies dizziness lightheadedness. Denies shortness of breath. No cough or wheezing or shortness of breath. Activity tolerance continued to improve. Complains of ongoing muscle tenderness and spasms with rotating the right shoulder. Review of Systems See [facility] Objective Visit Vitals BP 136/81 (BP Location: Right arm, Patient Position: Sitting, BP Cuff Size: Adult) Pulse 89 Physical Exam Constitutional: Appearance: Normal appearance. Cardiovascular: Rate and Rhythm: Normal rate and regular rhythm. Pulmonary: Effort: Pulmonary effort is normal. No respiratory distress. Breath sounds: No wheezing or rales. Skin: General: Skin is warm and dry. Coloration: Skin is not jaundiced or pale. Neurological: Mental Status: She is alert. Appears comfortable without distress. Respirations are easy and breath sounds are clear throughout. Heart RRR, S1 is 2 without murmur. Abdomen is soft and nondistended. Surgical incision and chest tube wounds are well approximated without redness or drainage. No underlying crepitus or hematoma. Skin is warm and dry. No lower extremity edema Assessment/Plan Diagnoses and all orders for this visit: Muscle spasm - methocarbamol (Robaxin) 750 mg tablet; Take 1 tablet (750 mg) by mouth if needed in the morning, at noon, and at bedtime for muscle spasms. - ibuprofen 800 mg tablet; Take 1 tablet (800 mg) by mouth if needed in the morning and at bedtime for moderate pain (4-7 pain score). Recurrent pneumothorax Diagnosis Plan 1. Muscle spasm methocarbamol (Robaxin) 750 mg tablet ibuprofen 800 mg tablet Plan: - Chest x-ray reviewed. There is no pneumothorax or effusion or other acute findings. - Surgical incision and chest tube wounds are healing well. No redness or warmth. Appropriate levelof tenderness for postoperative timeframe. - Patient complains of intermittent muscle spasms and tenderness with rotating the right shoulder and lifting her arm. Currently taking Tylenol at home. Will add ibuprofen and Robaxin to help with discomfort. - Instructed on importance of activity restrictions and weight lifting restrictions. - Patient is asking to return to work for financial reasons. States that her job offers light duty.Since she is still having acute pain near the surgical site we will have her remain off work for the next 2 weeks. Then she is allowed to return with the following restrictions: No lifting more than 10 pounds. No more than 6 hours a day, no more than 4 days a week. After 2 weeks of light duty, she may resume regular activity as tolerated. - Patient instructed to call for any new or worsening symptoms. -Patient instructed to follow-up with her PCP as scheduled documented in this encounter Plan of Treatment Not on file documented as of this encounter Visit Diagnoses Diagnosis Muscle spasm- Primary Spasm of muscle Recurrent pneumothorax documented in this encounter Care Teams Vessel Builder Relationship Specialty Start Date End Date Millicent Hudson CNP [address] [place] [address] [place] [address] PCP - General Family Medicine 12/05/24 documented as of this encounter
--- OUTSIDE RECORDS SUMMARY | 2025-03-22 10:13 | XMS_ITS ---
Author Organization [facility] [place] Address [address] [place] [address] Care Team Providers Care Emergency Medicine Medical Director Name Role Phone Millicent Hudson Primary Care Provider [phone] REASON FOR VISIT Vaginal Issues- Encounters Encounter Location Date Provider Diagnosis [facility] [address] [place] [address] 03/22/2025 Millicent Hudson Plan Of Treatment No Information Progress Notes * Juliette HAGANDOB:1995 ([age] yo F)Acc No.[id number]:03/22/2025 Patient: Juliette SELF :1995 A ge:29 Y S ex:Female [address] [place], [address] * true * Date: Generated for Barbi isha/Nishag/eTransmitting on: 0 03/31/2025 04:05 PM EDT
--- OUTSIDE RECORDS SUMMARY | 2025-03-31 16:05 | XMS_ITS | Clinical Summary ---
Author Organization [facility] Address [address] [place] [address] Care Team Providers Care Paint Maker Name Role Phone Sunny Lilly MD Primary Care Provider [phone] Allergies No known active allergies Medications amoxicillin-cla vulanate (AUGMENTIN) 875-125 MG per tablet Take 1 tablet by mouth 2 times daily Active clonazePAM (KLONOPIN) 1 MG tablet Take 1 tablet by mouth 2 times daily as needed. Max Daily Amount: 2 mg Active cloNIDine (CATAPRES) 0.1 MG tablet Take 1 tablet by mouth 3 times daily Active gabapentin (NEURONTIN) 300 MG capsule Take 1 capsule by mouth 3 times daily. Active pramipexole (MIRAPEX) 0.125 MG tablet Take 1 tablet by mouth 3 times daily Active Multiple Vitamin (MULTIVITAMIN ADULT PO) Take by mouth Active Social History Tobacco Use Types Packs/Day Years Used Date Smoking Tobacco: Never Smokeless Tobacco: Never Tobacco Cessation:Counseling Given: Not Answered Alcohol Use Standard Drinks/Week Comments Yes 0 (1 standard drink = 0.6 oz pur e alcohol) AUDIT-C Answer Date Recorded Q1: How often do you have a drink containing alcohol? Never 04/24/2024 Q2: How many drinks containi ng alcohol do you have on a typical day when you are drinking? Patient does not drink Q3: How often do you have si x or more drinks on one occasion? Never 04/24/2024 Interpersonal Safety Domain Source: IP Abuse Scr eening Answer Date Recorded Physical abuse Denies 04/24/2024 Verbal abuse Denies 04/24/2024 Emotional abuse Denies 04/24/2024 Financial abuse Denies 04/24/2024 Sexual abuse Denies 04/24/2024 Comments No Sex and Gender Information Value Date Recorded Sex Assigned at Not on file Legal Sex Female 1:49 PM EDT Gender Identity Not on file Sexual Orientation Not on file Last Filed Vital Signs Vital Sign Reading Time Taken Comments Blood Pressure 119/54 04/24/2024 7:47 AM EDT Pulse 64 04/24/2024 7:47 AM EDT Temperature 35.9 C (96.7 F) 04/24/2024 7:47 AM EDT Respiratory Rate 16 04/24/2024 7:47 AM EDT Oxygen Saturation 100% 04/24/2024 7:47 AM EDT Inhaled Oxygen Concentration - - Weight 63.5 kg (140 lb) 06/19/2023 9:44 PM EDT Height 167.6 cm (5' 6 ) 06/19/2023 9:44 PM EDT Body Mass Index 22.6 06/19/2023 9:44 PM EDT Plan of Treatment Health Maintenance Due Date Last Done Comments Depression Screen 2006 Varicella vaccine (1 of 2 - 13+ 2-dose series) 2007 Hepatitis B vaccine (1 of 3 - 19+ 3-dose series) 2013 Pap smear 2015 Cervical cancer screen 2024 HPV (without or with Pap) 2024 COVID-19 Vaccine ( season) 2024 Flu vaccine (Season Ended) 2025 08/05/2015 DTaP/Tdap/Td vaccine (3 - Td or Tdap) 11/13/2028 11/13/2018, 08/02/2015 HIV screen Completed 12/08/2024, 10/04, 05/04/2024 Hepatitis C screen Completed 12/08/2024, 0 12/08/2024, 10/14/2024, Additional history exists HPV vaccine Aged Out No longer eligi ble based on patient's age to complete this topic Hepatitis A vaccine Aged Out No longe r eligible based on patient's age to complete this topic Hib vaccine Aged Out No longer eligi ble based on patient's age to complete this topic Meningococcal (ACWY) vaccine Aged Out No longer eligible based on patient's age to complete this topic Meningococcal B vaccine Aged Out No l onger eligible based on patient's age to complete this topic Pneumococcal 0-49 years Vaccine Aged Out No longer eligible based on patient's age to complete this topic Polio vaccine Aged Out No longer elig ible based on patient's age to complete this topic Procedures Procedure Name Priority Date/Time Associated Diagnosis Comments HIV SCREEN Routine 12/08/2024 8:10 AM EST HEPATITIS PANEL, ACUTE Routine 12/08/2024 8:10 AM EST from Last 3 Months or Most Recently Relevant to Health Maintenance Results * Hepatitis Panel, Acute (12/08/2024 8:10 AM EST) Hepatitis B Surface Ag NONREACTIVE NONREACTIVE 12/08/2024 8:10 AM EST [employer] Hepatitis C Ab NONREACTIVE NONREACTIVE 12/08/19 8:10 AM EST [employer] Comment: The hepatitis C procedure used in [...] recommended by ordering HCV RNA by PCR. Hep B Core Ab, IgM NONREACTIVE NONREACTIVE 02/2025 8:10 AM EST [employer] Hep A IgM NONREACTIVE NONREACTIVE 12/08/2024 8:10 AM EST [employer] 12/08/2024 8:10 AM EST 12/08/2024 8:48 AM EST Sharif Ivory DAIRY HUSBANDRY TEACHER - BAD WORK GATHERER IMMUNOLOGY ORDERABLES F inal Result [facility] [address] [place] [address], [facility] [phone] [place] [id number] [place] [id number] [phone] * HIV Screen (12/08/2024 8:10 AM EST) HIV Ag/Ab NONREACTIVE NONREACTIVE 12/08/2024 8:10 AM EST [employer] Comment: No laboratory evidence of HIV infection. If acute HIV infection is suspected, consider testing for HIV-1 RNA. 12/08/2024 8:10 AM EST 12/08/2024 8:48 AM EST Sharif Ivory DAIRY HUSBANDRY TEACHER - BAD WORK GATHERER IMMUNOLOGY ORDERABLES F inal Result [facility] [address] [place] [address], [facility] [phone] [facility] [address] [place] [address], [facility] [phone] from Last 3 Months or Most Recently Relevant to Health Maintenance Insurance [employer] Care Teams Paint Maker Relationship Specialty Start Date End Date Sunny Lilly MD [address] [place] [address] PCP - General Neurology 06/25/23
--- OUTSIDE RECORDS SUMMARY | 2025-03-31 16:06 | XMS_ITS | Referral Summary ---
Author Organization [facility] [place] [address] Care Team Providers Care Powerhouse Attendant Name Role Phone Millicent Hudson CNP Primary Care Provider [phone] Encounters Date Type Department Care Team Description 03/18/2025 12:32 PM EDT - 03/18/2025 11:59 PM EDT Hospital Encounter [facility] X-Ray Imaging [address] [place] [phone] S/P video-assisted thoracoscopic surgery (VATS) Discharge Disposition: Home or Self Care (01) 03/18/2025 12:45 PM EDT Lab [facility] Outpatient Draw Station [address] [place] [phone] S/P video-assisted thoracoscopic surgery (VATS); Postoperative anemia due to acute blood loss 03/18/2025 1:15 PM EDT Office Visit [facility]oth[facility]acic [facility] [place] [address] [place] [phone] Felisha Hawk CNP Muscle spasm (Primary Dx); Recurrent pneumothorax 03/17/2025 Telephone [facility]acic [facility] [place] [address] [place] [phone] Joleen Brooks MA 03/12/2025 Telephone [facility]acic [facility] [place] [address] [place] [phone] Manjula Mosher RN 03/05/2025 1:58 PM EDT - 03/11/2025 4:30 PM EDT Hospital Encounter [facility] [address] [place] [address] Gena Burleson MD Saad, Hani, MD Lee, Jai, MD Recurrent pneumothorax (Primary Dx) Discharge Disposition: Home or Self Care () 03/10/2025 Orders Only [facility] [address] [place] [address] Manjula Mosher, NIHARIKA S/P video-assisted thoracoscopic surgery (VATS); Postoperative anemia due to acute blood loss 03/08/2025 8:00 AM EDT - 03/08/2025 11:36 AM EDT Surgery [facility] Main Operating Room [address] [place] [address] Nasim Perez MD RIGHT VATS, APICAL BLEB RESECTION, MECHANICAL PLEURODESIS 03/08/2025 8:49 AM EDT Anesthesia Event [facility] Main Operating Room [address] [place] [address] Gatito Langley MD Meehl, Austin, MD 03/05/2025 Travel 01/11/2025 [facility] Pulmonary [address] [place] [address] Leodan Hardwick MD 01/01/2025 12:02 AM EST - 01/07/2025 1:42 PM EST [facility] [address] [place] [address] Duncan Erickson MD Spencer, Caleb T, MD Spontaneous pneumothorax (Primary Dx); Anxiety and depression; History of substance dependence (CMS/HCC); Other iron deficiency anemia Discharge Disposition: Home or Self Care () 01/01/2025 Travel from Last 3 Months Allergies No known active allergies Medications Medication Sig Dispensed Refills Start Date End Date Status FLUoxetine (PROzac) 60 mg tablet Take 60 mg by mouth in the morning. Active acetaminophen (Tylenol) 500 mg tabletIndications :Recurrent pneumothorax Take 1 tablet (500 mg) by mouth every 6 (six) hours if needed for mild pain (1-3 pain score) for up to 291 doses. 30 tablet 03/11/2025 Active docusate sodium (Colace) 100 mg capsuleIndication s:Recurrent pneumothorax Take 2 capsules (200 mg) by mouth if needed in the morning and at bedtime (Narcotic Constipation). 60 capsule 03/11/2025 Active gabapentin (Neurontin) 300 mg capsule 1 capsule if needed. Active methocarbamol (Robaxin) 750 mg tabletIndications :Muscle spasm Take 1 tablet (750 mg) by mouth if needed in the morning, at noon, and at bedtime for muscle spasms. 40 tablet 03/18/2025 Active ibuprofen 800 mg tabletIndications :Muscle spasm Take 1 tablet (800 mg) by mouth if needed in the morning and at bedtime for moderate pain (4-7 pain score). 30 tablet 03/18/2025 Active acetaminophen (Tylenol) 500 mg tabletIndications :Spontaneous pneumothorax Take 2 tablets (1,000 mg) by mouth every 8 (eight) hours for 284 doses. 30 tablet 01/07/2025 Discontinued (Stop Taking at Discharge) ARIPiprazole (Abilify) 5 mg tabletIndications :Anxiety and depression,Histor y of substance dependence (CMS/HCC) Take 1 tablet (5 mg) by mouth in the morning for 93 doses. 30 tablet 3 01/08/2025 Discontinued (Stop Taking at Discharge) ferrous sulfate 325 (65 Fe) MG tabletIndications :Other iron deficiency anemia Take 1 tablet (325 mg) by mouth with breakfast for 93 doses. 30 tablet 3 01/08/2025 5 Discontinued (Stop Taking at Discharge) gabapentin (Neurontin) 300 mg capsuleIndication s:Spontaneous pneumothorax Take 1 capsule (300 mg) by mouth three times daily for 282 doses. 90 capsule 3 01/07/2025 5 Discontinued (Stop Taking at Discharge) oxyCODONE (Roxicodone) 5 mg immediate release tabletIndications :Recurrent pneumothorax Take 1 tablet (5 mg) by mouth every 6 (six) hours if needed for moderate pain (4-7 pain score) for up to 5 days. 20 tablet 03/11/2025 05/13/202 5 Additional Information Patient not taking.Reported on 03/18/2025 Active Problems Problem Noted Date Diagnosed Date Postoperative anemia due to acute blood loss 04/2025 Atelectasis, bilateral 03/09/2025 Recurrent pneumothorax 03/05/2025 Assessment & Plan (03/07/2025 11:34 AM EDT): - Status post chest tube placement on 03/05/2025 -This is her third pneumothorax (second 1 patient had pleurodesis with doxycycline) - Patient to have VATS with bleb resection tomorrow -Continue chest tube to suction and pain control -For pain patient on Tylenol, Clayton dose was increased this morning, Toradol and morphine and I believe patient on adequate regimen Assessment & Plan (03/06/2025 9:34 AM EDT): - Status post chest tube placement on 03/05/2025 -This is her third pneumothorax (second 1 patient had pleurodesis with doxycycline) - Appreciate cardiothoracic surgery input likely patient will need procedure on Saturday -Continue chest tube to suction and pain control Assessment & Plan (03/06/2025 9:20 AM EDT): This actually represents the first recurrence of this patient's right [...] Request Operating Room: THORACOSCOPY, WITH LUNG DECORTICATION Assessment & Plan (03/05/2025 5:01 PM EDT): - CT surgery onboarded for possible VATS - Pulm onboarded for chest tube placement - Daily CXR - Toradol and norco for pain control - Supplemental O2 prn Spontaneous pneumothorax 01/01/2025 Assessment & Plan (01/01/2025 1:16 AM EST): Since this was the second episode the hospitalist at [facility] contact CTS at [facility] and it was decided to transfer patient to [facility] continue pain control incentive spirometry chest tube care follow-up with CTS will repeat labs and chest x-ray in the morning Heart murmur, aortic 01/01/2025 Assessment & Plan (01/01/2025 1:16 AM EST): Consider echocardiogram murmur as a second right intercostal space no radiation and unchanged with handgrip and no exertional chest pain syncope or dyspnea History of substance dependence 01/01/2025 Assessment & Plan (03/06/2025 9:20 AM EDT): No recent substance abuse per patient ; Urine toxicology has been ordered. Anxiety and depression 01/01/2025 Assessment & Plan (03/07/2025 11:34 AM EDT): - Resume fluoxetine and Neurontin Assessment & Plan (03/06/2025 9:34 AM EDT): - Resume fluoxetine and Neurontin Assessment & Plan (03/06/2025 9:20 AM EDT): Psychological condition is improving with treatment. Continue current treatment regimen. Psychological condition will be reassessed in 4 weeks. Giacomo Velázquez MD CT Surgery Assessment & Plan (03/05/2025 5:01 PM EDT): - Resume abilify/fluoxetine Social History Tobacco Use Types Packs/Day Years Used Date Smoking Tobacco: Never Smokeless Tobacco: Never Alcohol Use Standard Drinks/Week Comments Not Currently 0 (1 standard drink = 0.6 oz pur e alcohol) [facility] Utilities Answer Date Recorded In the past 12 months has th e electric, gas, oil, or water company threatened to shut off services in your [...] any time in the past 12 m [facility], were you homeless or living in a long term (including now)? No 03/05/2025 Hunger Vital Sign [...] Pulse 89 03/18/2025 1:28 PM EDT Temperature 36.6 C (97.9 F) 03/11/2025 3:42 PM EDT Respiratory Rate 16 03/11/2025 3:42 PM EDT Oxygen Saturation 98% 03/18/2025 1:28 PM EDT Inhaled Oxygen Concentration - - Weight 87.1 kg (192 lb) 03/18/2025 1:28 PM EDT Height 167.6 cm (5' 6 ) 03/18/2025 1:28 PM EDT Body Mass Index 30.99 03/18/2025 1:28 PM EDT Plan of Treatment Not on file Procedures Procedure Name Priority Date/Time Associated Diagnosis Comments XR CHEST 2 VIEWS Routine 03/18/2025 1:07 PM EDT S/P video-assisted thoracoscopic surgery (VATS) CBC WITH AUTO DIFFERENTIAL Routine 03/18/2025 12:50 [...] PM EDT S/P video-assisted thoracoscopic surgery (VATS) PREPARE RBC Routine 03/12/2025 6:37 AM EDT XR CHEST 1 VIEW STAT 03/11/2025 1:40 PM EDT XR CHEST 1 VIEW STAT 03/11/2025 12:27 PM EDT XR CHEST 1 VIEW STAT 03/11/2025 10:44 AM EDT XR CHEST 1 VIEW Routine 03/11/2025 6:45 AM EDT MAGNESIUM Pending Discharge 03/11/2025 5:20 AM EDT CBC Pending Discharge 03/11/2025 5:20 AM EDT BASIC METABOLIC PANEL Pending Discharge 03/11/2025 5:20 AM EDT XR CHEST 1 VIEW Routine 03/10/2025 1:34 PM EDT XR CHEST 2 VIEWS STAT 03/10/2025 10:51 AM EDT XR CHEST 1 VIEW STAT 03/10/2025 9:25 AM EDT RESPIRATORY ASSESS AND TREAT PROTOCOL Routine 03/10/2025 8:00 AM EDT XR CHEST 1 VIEW Routine 03/10/2025 7:00 AM EDT BASIC METABOLIC PANEL Pending Discharge 03/10/2025 5:33 AM EDT CBC Pending Discharge 03/10/2025 5:33 AM EDT MAGNESIUM Pending Discharge 03/10/2025 5:33 AM EDT XR CHEST 1 VIEW Routine 03/09/2025 11:02 AM EDT RESPIRATORY ASSESS AND TREAT PROTOCOL Routine 03/09/2025 8:00 AM EDT POCT GLUCOSE METER UNSOLICITED RESULTS Routine 03/09/2025 7:53 AM EDT BASIC METABOLIC PANEL Pending Discharge 03/09/2025 4:50 AM EDT CBC Pending Discharge 03/09/2025 4:50 AM EDT MAGNESIUM Pending Discharge 03/09/2025 4:50 AM EDT XR CHEST 1 VIEW Routine 03/09/2025 3:26 AM EDT POCT GLUCOSE METER UNSOLICITED RESULTS Routine 03/08/2025 10:15 PM EDT POCT GLUCOSE METER UNSOLICITED RESULTS Routine 03/08/2025 5:14 PM EDT XR CHEST 1 VIEW STAT 03/08/2025 12:53 PM EDT PROTIME-INR STAT 03/08/2025 12:04 PM EDT MAGNESIUM STAT 03/08/2025 12:04 PM EDT BASIC METABOLIC PANEL STAT 03/08/2025 12:04 PM EDT CBC STAT 03/08/2025 12:04 PM EDT RESPIRATORY ASSESS AND TREAT PROTOCOL Routine 03/08/2025 11:43 AM EDT RESPIRATORY ASSESS AND TREAT PROTOCOL Routine 03/08/2025 11:43 AM EDT GA UNLISTED PROCEDURE NERVOUS SYSTEM Routine 03/08/2025 11:15 AM EDT CHG US GUIDANCE NEEDLE PLACEMENT IMG S&I Routine 03/08/2025 11:15 AM EDT HISTOLOGY - TISSUE EXAM Routine 03/08/2025 10:41 AM EDT Recurrent pneumothorax PREPARE RBC STAT 03/08/2025 10:19 AM EDT TYPE AND SCREEN STAT 03/08/2025 10:15 AM EDT ANESTHESIA PERIPHERAL IV PLACEMENT Routine 03/08/2025 9:50 AM EDT ANESTHESIA PERIPHERAL IV PLACEMENT Routine 03/08/2025 9:35 AM EDT ANESTHESIA ARTERIAL LINE PLACEMENT Routine 03/08/2025 9:25 AM EDT GA AN ELECTIVE ENDOTRACHEAL AIRWAY Routine 03/08/2025 9:05 AM EDT THORACOSCOPY, WITH LUNG DECORTICATION 03/08/2025 8:52 AM EDT Recurrent pneumothorax POCT GLUCOSE METER UNSOLICITED RESULTS Routine 03/08/2025 7:48 AM EDT RED TOP Routine 03/07/2025 2:52 PM EDT EXTRA TUBES Routine 03/07/2025 2:52 PM EDT PROTIME-INR Routine 03/07/2025 2:52 PM EDT TOXICOLOGY PANEL URINE Routine 03/06/2025 10:41 AM EDT URINALYSIS Routine 03/06/2025 10:41 AM EDT XR CHEST 1 VIEW Routine 03/06/2025 6:55 AM EDT CBC Routine 03/06/2025 4:03 AM EDT BASIC METABOLIC PANEL Routine 03/06/2025 4:[address] CHEST WO IV CONTRAST Routine 03/05/2025 9:11 PM EDT ECG 12-LEAD Routine 03/05/2025 7:32 PM EDT XR CHEST 1 VIEW STAT 03/05/2025 7:03 PM EDT FERRITIN Add-On 03/05/2025 2:59 PM EDT IRON AND TIBC Add-On 03/05/2025 2:59 PM EDT RED TOP Routine 03/05/2025 2:59 PM EDT EXTRA TUBES Routine 03/05/2025 2:59 PM EDT CBC STAT 03/05/2025 2:59 PM EDT BASIC METABOLIC PANEL STAT 03/05/2025 2:59 PM EDT XR CHEST 1 VIEW STAT 03/05/2025 2:46 PM EDT XR CHEST 1 VIEW STAT 01/07/2025 10:59 AM EST XR CHEST 1 VIEW Routine 01/07/2025 6:52 AM EST XR CHEST 1 VIEW Routine 01/06/2025 7:27 AM EST CBC WITH AUTO DIFFERENTIAL Pending Discharge 01/06/2025 6:18 AM EST MAGNESIUM Pending Discharge 01/06/2025 6:18 AM EST CBC AND DIFFERENTIAL Routine 01/06/2025 6:18 AM EST BASIC METABOLIC PANEL Pending Discharge 01/06/2025 6:18 AM EST XR CHEST 1 VIEW STAT 01/05/2025 7:[address] CHEST WO IV CONTRAST Routine 01/05/2025 11:52 AM EST XR CHEST 1 VIEW Routine 01/05/2025 7:01 AM EST CBC WITH AUTO DIFFERENTIAL Pending Discharge 01/05/2025 4:56 AM EST MAGNESIUM Pending Discharge 01/05/2025 4:56 AM EST CBC AND DIFFERENTIAL Routine 01/05/2025 4:56 AM EST BASIC METABOLIC PANEL Pending Discharge 01/05/2025 4:56 AM EST XR CHEST 1 VIEW STAT 01/04/2025 6:47 PM EST XR CHEST 1 VIEW Routine 01/04/2025 12:26 PM EST XR CHEST 1 VIEW Routine 01/04/2025 7:18 AM EST CBC WITH AUTO DIFFERENTIAL Routine 01/04/2025 6:34 AM EST MAGNESIUM Routine 01/04/2025 6:34 AM EST CBC AND DIFFERENTIAL Routine 01/04/2025 6:34 AM EST BASIC METABOLIC PANEL Routine 01/04/2025 6:34 AM EST XR CHEST 1 VIEW Routine 01/03/2025 7:41 AM EST TOXICOLOGY PANEL URINE Routine 01/02/2025 3:28 PM EST XR CHEST 1 VIEW STAT 01/02/2025 10:13 AM EST CHEST TUBE INSERTION Routine 01/02/2025 10:00 AM EST Spontaneous pneumothorax XR CHEST 1 VIEW Routine 01/02/2025 8:04 AM EST XR CHEST 1 VIEW Routine 01/02/2025 3:53 AM EST XR CHEST 1 VIEW Timed 01/02/2025 2:24 AM EST COMPLETE ECHO (TTE) Routine 01/01/2025 2 :41 PM EST LAVENDER TOP Routine 01/01/2025 11:30 AM EST EXTRA TUBES Routine 01/01/2025 11:30 AM EST IRON AND TIBC Add-On 01/01/2025 11:25 AM EST XR CHEST 2 VIEWS Routine 01/01/2025 9:[address] TRANSFER OF OUTSIDE FILMS Routine 01/01/2025 8:56 AM EST VITAMIN B12 Add-On 01/01/2025 6:18 AM EST FOLATE Add-On 01/01/2025 6:18 AM EST FERRITIN Add-On 01/01/2025 6:18 AM EST CBC WITH AUTO DIFFERENTIAL Routine 01/01/2025 6:18 AM EST TSH3 REFLEX TO FT4 Routine 01/01/2025 6: 18 AM EST COMPREHENSIVE METABOLIC PANEL Routine 01/01/2025 6:18 AM EST CBC AND DIFFERENTIAL Routine 01/01/2025 6:18 AM EST from Last 3 Months Results * XR chest 2 views (03/18/2025 1:07 PM EDT) Only the most recent of3 resultswithin the time period is included. Anatomical Region Laterality Modality Chest Computed Radiogr [...] MD. Nasim Perez MD IMG XR PROCEDURES * (ABNORMAL) CBC auto differential (03/18/2025 12:50 PM EDT) Only the most recent of5 resultswithin the time period is included. Auto WBC 7.29 4.00 - 10.60 10*3/uL 03/18/2025 1:26 PM EDT [facility] ([facility]) RBC 4.04 3.80 - 5.00 10*6/uL 03/18/2025 1:26 PM EDT [facility] ([facility]) Hemoglobin 10.7(L) 12.0 - 15.0 g/dL 03/18/2025 1:26 PM EDT [facility] ([facility]) Hematocrit 32.9(L) 36.0 - 45.0 % 03/18/2025 1:26 PM EDT [facility] ([facility]) MCV 81.4(L) 82.0 - 98.0 fL 03/18/2025 1:26 PM EDT [facility] ([facility]) MCH 26.5(L) 27.0 - 33.0 pg 03/18/2025 1:26 PM EDT [facility] ([facility]) MCHC 32.5 32.0 - 35.0 g/dL 03/18/2025 1:26 PM EDT [facility] ([facility]) RDW 13.6 11.5 - 15.0 % 03/18/2025 1:26 PM EDT [facility] ([facility]) Neutrophils % 69.0 40.0 - 72.0 % 03/18/2025 1:26 PM EDT [facility] ([facility]) Lymphocytes % 16.9(L) 20.0 - 45.0 % 03/18/2025 1:26 PM EDT [facility] ([facility]) Monocytes % 10.2 5.0 - 12.0 % 03/18/2025 1:26 PM EDT [facility] ([facility]) Eosinophils % 2.5 0.0 - 6.0 % 03/18/2025 1:26 PM EDT [facility] ([facility]) Basophils % 1.0 0.0 - 1.0 % 03/18/2025 1:26 PM EDT [facility] ([facility]) Neutrophils Absolute 5.04 1.60 - 7.60 10*3/uL 03/18/2025 1:26 PM EDT [facility] ([facility]) Lymphocytes Absolute 1.23 1.20 - 4.00 10*3/uL 03/18/2025 1:26 PM EDT [facility] ([facility]) Monocytes Absolute 0.74 0.10 - 1.00 10*3/uL 03/18/2025 1:26 PM EDT [facility] ([facility]) Eosinophils Absolute 0.18 0.00 - 0.50 10*3/uL 03/18/2025 1:26 PM EDT [facility] ([facility]) Basophils Absolute 0.07 0.00 - 0.20 10*3/uL 03/18/2025 1:26 PM EDT [facility]) Platelets 342 150 - 400 10*3/uL 03/18/2025 1:26 PM EDT [facility] ([facility]) nRBC % 0.0 0 % 03/18/2025 1:26 PM EDT [facility] ([facility]) Immature Granulocytes % 0.4 0.0 - 1.0 % 03/18/2025 1:26 PM EDT [facility] ([facility]) Immature Granulocytes Absolute 0.03 0.00 - 0.20 10*3/uL 03/18/2025 1:26 PM EDT [facility]) Blood Venous blood specimen / Unknown Venipuncture / Unknown 03/18/2025 12:50 PM EDT 03/18/2025 1:09 PM EDT Nasim Perez MD LAB BLOOD ORDERABLES [facility]) [address] [place] [address] * (ABNORMAL) Magnesium (03/18/2025 12:50 PM EDT) Only the most recent of8 resultswithin the time period is included. Magnesium 1.8(L) 1.9 - 2.7 mg/dL 03/18/2025 1:30 PM EDT [facility] ([facility]) Blood Venous blood specimen / Unknown Venipuncture / Unknown 03/18/2025 12:50 PM EDT 03/18/2025 1:06 PM EDT Nasim Perez MD LAB BLOOD ORDERABLES [facility] ([facility]) [address] [place] [address] * (ABNORMAL) Comprehensive metabolic panel (03/18/2025 12:50 PM EDT) Only the most recent of2 resultswithin the time period is included. Sodium 136 136 - 145 mmol/L 03/18/2025 1:30 PM EDT [facility] ([facility]) Potassium 4.0 3.5 - 5.1 mmol/L 03/18/2025 1:30 PM EDT [facility] ([facility]) Chloride 101 98 - 107 mmol/L 03/18/2025 1:30 PM EDT [facility] ([facility]) CO2 31 21 - 31 mmol/L 03/18/2025 1:30 PM EDT [facility] ([facility]) Anion Gap 8 7 - 20 mmol/L 03/18/2025 1:30 PM EDT [facility] ([facility]) BUN 9 7 - 25 mg/dL 03/18/2025 1:30 PM EDT [facility] ([facility]) Creatinine 0.56(L) 0.60 - 1.20 mg/dL 03/18/2025 1:30 PM EDT [facility] ([facility]) BUN/Creatinine Ratio 16.1 03/04 1:30 PM EDT [facility] ([facility]) Glucose 112(H) 70 - 100 mg/dL 03/18/2025 1:30 PM EDT [facility] ([facility]) Calcium 9.1 8.6 - 10.3 mg/dL 03/18/2025 1:30 PM EDT [facility] ([facility]) AST 18 13 - 39 U/L 03/18/2025 1:30 PM EDT [facility] ([facility]) ALT (SGPT) 22 7 - 52 U/L 03/18/2025 1:30 PM EDT [facility] ([facility]) Alkaline Phosphatase 80 34 - 104 U/L 03/18/2025 1:30 PM EDT [facility] ([facility]) Total Protein 7.0 6.0 - 8.3 g/dL 03/18/2025 1:30 PM EDT [facility] ([facility]) Albumin 4.2 3.5 - 5.7 g/dL 03/18/2025 1:30 PM EDT [facility] ([facility]) Total Bilirubin 0.3 0.3 - 1.0 mg/dL 03/18/2025 1:30 PM EDT [facility] ([facility]) eGFR 125.8 >60.0 mL/min/1. 73m*2 03/18/2025 1:30 PM EDT [facility] ([facility]) Comment:[facility] s estimated glomerular filtration rate (eGFR) will [...] EDT Nasim Perez MD LAB BLOOD ORDERABLES [facility] ([facility]) [address] [place] [address] * Prepare RBC (03/12/2025 6:37 AM EDT) Only the most recent of2 resultswithin the time period is included. PRODUCT CODE [id number] [facility] Unit Number [id number] [facility] Unit ABO B [facility] Unit Rh POS [facility] Dispense Status RE [facility] Blood Expiration Date [facility] Product Blood Type 7300 [facility] Unit Volume 300 ML [facility] OD [facility] PRODUCT CODE [id number] [facility] Unit Number [id number] [facility] B[facility] Unit ABO B [facility] Unit Rh POS [facility] Dispense Status RE [facility] Blood Expiration Date [facility] Product Blood Type 7300 [facility] Gatito Langley MD BLOOD BANK PRODUCT O RDERABLES [facility] * XR chest 1 view (03/11/2025 1:40 PM EDT) Only the most recent of26 resultswithin the time period is included. Anatomical Region Laterality Modality Chest Computed Radiogr aphy 03/11/2025 1:49 PM EDT Impressions 03/11/2025 1:50 PM EDT Chest tube removed. Tiny apical pneumothorax. Electronically signed: Dago Casas. Narrative 03/11/2025 1:50 PM EDT XR CHEST 1 VIEW 03/11/2025 1:20 PM expiration. CLINICAL INDICATIONS: Chest tube removal. Assess for pneumothorax. COMPARISON: 12:09 PM FINDINGS: Right chest tube removed. Tiny 3 mm apical pneumothorax. Cardiac silhouette and pulmonary vessels are within normal limits. Lungs pleural spaces are clear. Procedure Note Dago Casas MD - 03/11/2025 XR CHEST 1 VIEW 03/11/2025 1:20 PM expiration. CLINICAL INDICATIONS: Chest tube removal. Assess for pneumothorax. COMPARISON: 12:09 PM FINDINGS: Right chest tube removed. Tiny 3 mm apical pneumothorax.Cardiac silhouette and pulmonary vessels are within normal limits. Lungs pleuralspaces are clear. IMPRESSION: Chest tube removed. Tiny apical pneumothorax. Electronically signed: Dago Casas. Chaparro Horton BALANCING MACHINE OPERATOR IMG XR PROCEDUR ES * (ABNORMAL) CBC (03/11/2025 5:20 AM EDT) Only the most recent of6 resultswithin the time period is included. Auto WBC 5.02 4.00 - 10.60 10*3/uL 03/11/2025 5:40 AM EDT [facility] ([facility]) RBC 4.02 3.80 - 5.00 10*6/uL 03/11/2025 5:40 AM EDT [facility] ([facility]) Hemoglobin 10.4(L) 12.0 - 15.0 g/dL 03/11/2025 5:40 AM EDT [facility] ([facility]) Hematocrit 33.2(L) 36.0 - 45.0 % 03/11/2025 5:40 AM EDT [facility] ([facility]) MCV 82.6 82.0 - 98.0 fL 03/11/2025 5:40 AM EDT [facility] ([facility]) MCH 25.9(L) 27.0 - 33.0 pg 03/11/2025 5:40 AM EDT [facility] ([facility]) MCHC 31.3(L) 32.0 - 35.0 g/dL 03/11/2025 5:40 AM EDT [facility] ([facility]) RDW 14.0 11.5 - 15.0 % 03/11/2025 5:40 AM EDT [facility] ([facility]) Platelets 296 150 - 400 10*3/uL 03/11/2025 5:40 AM EDT [facility] ([facility]) Blood Venous blood specimen / Unknown Arterial Line / Unknown 03/11/2025 5:20 AM EDT 03/11/2025 5:27 AM EDT [facility] [employer] LAB BLOOD ORDER AG [facility]) [address] [place] [address] * (ABNORMAL) Basic metabolic panel (03/11/2025 5:20 AM EDT) Only the most recent of9 resultswithin the time period is included. Sodium 137 136 - 145 mmol/L 03/11/2025 6:00 AM [facility] ([facility]) Potassium 4.2 3.5 - 5.1 mmol/L 03/11/2025 6:00 AM [facility] ([facility]) Chloride 103 98 - 107 mmol/L 03/11/2025 6:00 AM [facility] ([facility]) CO2 26 21 - 31 mmol/L 03/11/2025 6:00 AM [facility] ([facility]) BUN 20 7 - 25 mg/dL 03/11/2025 6:00 AM [facility] ([facility]) Creatinine 0.48(L) 0.60 - 1.20 mg/dL 03/11/2025 6:00 AM [facility] ([facility]) Glucose 85 70 - 100 mg/dL 03/11/2025 6:00 AM [facility] ([facility]) Calcium 8.5(L) 8.6 - 10.3 mg/dL 03/11/2025 6:00 AM [facility] ([facility]) Anion Gap 12 7 - 20 mmol/L 03/11/2025 6:00 AM [facility] ([facility]) eGFR 130.6 >60.0 mL/min/1. 73m*2 03/11/2025 6:00 AM [facility] ([facility]) Comment:[facility] s estimated glomerular filtration rate (eGFR) will [...] disproportionately affect any one group of individuals. BUN/Creatinine Ratio 41.7 06/2025 6:00 AM [facility] ([facility]) Blood Venous blood specimen / Unknown Arterial Line / Unknown 03/11/2025 5:20 AM EDT 03/11/2025 5:25 AM EDT Chaparro Horton CNP LAB BLOOD ORDER AG Performing Organization Address [facility] Co de Phone Number [facility] ([facility]) [address] [place] [address] * (ABNORMAL) POCT glucose meter (03/09/2025 7:53 AM EDT) Only the most recent of4 resultswithin the time period is included. Glucose POC 112(H) 70 - 105 mg/dL 03/09/2025 8:04 AM EDT [facility] ([facility]) Comment:doug Blood Capillary blood specimen / Unknown 03/09/2025 7:53 AM EDT 03/09/2025 8:04 AM EDT Narrative [facility] ([facility]) - 03/09/2025 8:04 AM EDT Waived Testing in the ED is performed under the ED CLIA certificate #[id number]. Nasim Perez MD LAB BLOOD ORDERABLES Performing Organization Address [facility] Co de Phone Number [facility]) [address] [place] [address] * Protime-INR (03/08/2025 12:04 PM EDT) Only the most recent of2 resultswithin the time period is included. Protime 14.2 12.3 - 14.8 Seconds 03/08/2025 12:32 PM EDT [facility]) INR 1.10 0.90 - 1.10 03/08/2025 12:32 PM EDT [facility] ([facility]) Comment: [facility] RECOMMENDED INR FOR [facility]ARFARIN THERAPY CONDITION INR PROPHYLAXIS OF VENOUS THROMBOSIS 2-3 (HIGH-RISK SURGERY) TREATMENT OF VENOUS THROMBOSIS 2-3 TREATMENT OF PULMONARY EMBOLISM 2-3 PREVENTION OF SYSTEMIC EMBOLISM: 2-3 ACUTE MYOCARDIAL INFARCTION TISSUE HEART VALVES VALVULAR HEART DISEASE ATRIAL FIBRILLATION RECURRENT SYSTEMIC EMBOLISM MECHANICAL HEART VALVE 2.5-3.5 FROM: ORAL ANTICOAGULANTS. MECHANISM OF ACTION, CLINICAL EFFECTIVENESS, AND OPTIMAL THERAPEUTIC RANGE. CHEST 1995;108:231S-246S. 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 ORDER AG [facility] ([facility]) [address] [place] [address] * CHG US GUIDANCE NEEDLE PLACEMENT IMG S&I, GA UNLISTED PROCEDURE NERVOUS SYSTEM (03/08/2025 11:15 AM EDT) Narrative Gatito Langley MD - 03/08/2025 11:15 AM EDT Gatito Langley MD 03/08/2025 12:38 PM Peripheral Block Patient location during procedure: OR Start time: 03/08/2025 11:15 AM End time: 03/08/2025 11:30 AM Reason for block: at surgeon's request and post-op pain management Staffing Performed: resident/CRM ADMINISTRATOR/CAA Anesthesiologist: Gatito Langley MD Resident/CRM ADMINISTRATOR: Mona Arevalo MD Preanesthetic Checklist Completed: patient [...] rate change: no Slow fractionated injection: yes Gatito Langley MD ANESTHESIA ORDERABLE S * Histology - tissue exam (03/08/2025 10:41 AM EDT) Case Report Surgical Pathology Case: [id number] Authorizing Provider: Nasim Perez MD Collected: 03/08/2025 1041 Ordering Location: [facility] Main Operating Room Received: 03/08/2025 1238 Pathologist: Morris Santamaria MD Specimen: Other, RIGHT APICAL BLEB 03/11/2025 9:18 AM EDT [facility] ([facility]) Final Diagnosis A. Lung, right apical bleb, resection: - Benign lung parenchyma with dilated airspaces, consistent with apical bleb. - No malignancy identified. 03/11/2025 9:18 AM EDT [facility] ([facility]) Clinical Information Post-Op Diagnoses J93.9 - Recurrent pneumothorax [ICD-10-CM] 03/11/2025 9:18 AM EDT [facility] ([facility]) Gross Description A. Other. The specimen is received in formalin labeled Juliette Hagan and right apical bleb. It consists of [...] No distinct dilated airspaces are grossly identified. Software Integration Developer sections are sequentially submitted in 4 cassettes. Shannon Lugo, Pathologists' Financial Institution Vice President student Emanuel Quinones Pathologists' Financial Institution Vice President 03/11/2025 9:18 AM EDT [facility] ([facility]) Microscopic Description Microscopic examination performed. 03/11/2025 9:18 AM EDT [facility] ([facility]) Tissue Topography unknown / Unknown 03/08/2025 10:41 AM EDT 03/08/2025 12:38 PM EDT Comment:Pre-op diagnosis: Recurrent pneumothorax [J93.9] Nasim Perez MD LAB PATHOLOGY ORDERA BLES [facility] ([facility]) [address] [place] [address] * Type and screen (03/08/2025 10:15 AM EDT) ABO Grouping B 03/08/2025 11:10 AM EDT [facility] BLOOD BANK Rh Type POS 03/08/2025 11:10 AM EDT [facility] BLOOD BANK Ab Scrn NEG 03/08/2025 11:10 AM EDT [facility] BLOOD B[facility] Blood Venous blood specimen / Unknown Arterial Line / Unknown 03/08/2025 10:15 AM EDT 03/08/2025 10:15 AM EDT Gatito Langley MD LAB BLOOD BANK TEST ORDERABLES [facility] BLOOD BANK * Peripheral IV (03/08/2025 9:50 AM EDT) Narrative Gatito Langley MD - 03/08/2025 9:50 AM EDT Mona Arevalo MD 03/08/2025 9:50 AM Peripheral IV Date/Time: 03/08/2025 9:50 AM Inserted by: Gatito Langley MD Placement Needle size: 14 G Laterality: right Location: wrist Local anesthetic: none Site prep: alcohol Technique: anatomical landmarks Attempts: 1 Gatito Langley MD ANESTHESIA ORDERABLE S * Peripheral IV (03/08/2025 9:35 AM EDT) Gatito Lee MD - 03/08/2025 9:35 AM EDT Mona Arevalo MD 03/08/2025 9:50 AM Peripheral IV Date/Time: 03/08/2025 9:35 AM Inserted by: Mona Arevalo MD Placement Needle size: 16 G Laterality: left Location: hand Local anesthetic: none Site prep: chlorhexidine Technique: anatomical landmarks Attempts: 2 Gatito Langley MD ANESTHESIA ORDERABLE S * ANESTHESIA ARTERIAL LINE PLACEMENT (03/08/2025 9:25 AM EDT) Gatito Lee MD - 03/08/2025 9:25 AM EDT Mona Arevalo MD 03/08/2025 9:51 AM Arterial Line: Date/Time: 03/08/2025 9:25 AM An [...] procedure well with no complications. Staffing Performed: resident/CRM ADMINISTRATOR/CAA Anesthesiologist: Gatito Langley MD Resident/CRM ADMINISTRATOR: Mona Arevalo MD Performed by: Mona Arevalo MD Authorized by: Gatito Langley MD Gatito Langley MD ANESTHESIA ORDERABLE S * GA AN ELECTIVE ENDOTRACHEAL AIRWAY (03/08/2025 9:05 AM EDT) Gatito Lee MD - 03/08/2025 9:05 AM EDT Mona Arevalo MD 03/08/2025 9:52 AM Airway Date/Time: 03/08/2025 9:05 AM Urgency: elective Airway not difficult General Information and Staff Patient location during procedure: OR Anesthesiologist: Gatito Langley MD Resident/CRM ADMINISTRATOR/CAA: Mona Arevalo MD Performed: anesthesiologist Indications and [...] at approach: 1 Ventilation between attempts: none Gatito Langley MD ANESTHESIA ORDERABLE S * Red Top (03/07/2025 2:52 PM EDT) Only the most recent of2 resultswithin the time period is included. [facility] Extra Tube Hold for add-ons. 03/07/2025 5:01 PM EDT [facility] ([facility]) Comment:Auto resulted. Blood Venous blood specimen / Unknown 03/07/2025 2:52 PM EDT 03/07/2025 3:09 PM EDT Parker Yang MD LAB BLOOD ORDERABLES [facility] ([facility]) [address] [place], [place] [id number] * (ABNORMAL) Toxicology Screen, Urine (03/06/2025 10:41 AM EDT) Only the most recent of2 resultswithin the time period is included. [facility] Barbiturates Negative Negative 03/06/2025 11:24 AM EDT [facility] ([facility]) Benzodiazepines Negative Negative 11:24 AM EDT [facility] ([facility]) Propoxyphene Negative Negative 03/06/2025 11:24 AM EDT [facility] ([facility]) Methadone Negative Negative 03/06/2025 11:24 AM EDT [facility] ([facility]) Tricyclics Negative Negative 03/06/2025 11:24 AM EDT [facility] ([facility]) Phencyclidine Negative Negative 03/06/2025 11:24 AM EDT [facility] ([facility]) Opiates Positive(A) Negative 03/06/2025 11:24 AM EDT [facility] ([facility]) Cocaine Negative Negative 03/06/2025 11:24 AM EDT [facility] ([facility]) Amphetamines/Metha mphetamine Negative Negative 03/06/2025 11:24 AM EDT [facility] ([facility]) Cannabinoid Negative Negative 03/06/2025 11:24 AM EDT [facility] ([facility]) Urine Urine specimen obtained by clean catch procedure / Unknown Non-blood Collection / Unknown 03/06/2025 10:41 AM EDT 03/06/2025 10:47 AM EDT Narrative [facility] ([facility]) - 03/06/2025 11:24 AM EDT Unconfirmed screening results should only be used for medical purposes. Felisha Hawk [facility] URINE ORDERABLES Performing Organization Address City/State/[facility] Co de Phone Number [facility] ([facility]) [address] [place] [address] * Urinalysis (03/06/2025 10:41 AM EDT) Color, Urine Light-Yellow Colorless, Yellow, Light-Yellow 03/06/2025 10:59 AM EDT [facility] ([facility]) Clarity, Urine Clear Clear 03/06/2025 10:59 AM EDT [facility] ([facility]) pH, Urine 6.5 5.0 - 8.0 pH 03/06/2025 10:59 AM EDT [facility] ([facility]) Leukocytes, Urine Negative Negative 03/06/2025 10:59 AM EDT [facility] ([facility]) Nitrite, Urine Negative Negative 03/06/2025 10:59 AM EDT [facility] ([facility]) Protein, Urine Negative Negative mg/dL 03/06/2025 10:59 AM EDT [facility] ([facility]) Glucose, Urine Normal Normal mg/dL 03/06/2025 10:59 AM EDT [facility] ([facility]) Bilirubin, Urine Negative Negative 03/06/2025 10:59 AM EDT [facility] ([facility]) Specific [place], Urine 1.020 1.010 - 1.030 03/06/2025 10:59 AM EDT [facility] ([facility]) Ketones, Urine Negative Negative mg/dL 03/06/2025 10:59 AM EDT [facility] ([facility]) Blood, Urine Negative Negative 03/06/2025 10:59 AM EDT [facility] ([facility]) Urobilinogen, Urine Normal Normal mg/dL 03/06/2025 10:59 AM EDT [facility] ([facility]) Urine Urine specimen obtained by clean catch procedure / Unknown Non-blood Collection / Unknown 03/06/2025 10:41 AM EDT 03/06/2025 10:47 AM EDT Narrative [facility] ([facility]) - 03/06/2025 10:59 AM EDT Microscopics not performed on urines with negative chemical reactions unless requested on original order. Felisha Hawk [facility] URINE ORDERABLES Performing Organization Address City/State/[facility] Co de Phone Number [facility] ([facility]) [address] [place] [address] * CT chest wo IV contrast (03/05/2025 9:11 PM EDT) Only the most recent of2 resultswithin the time period is included. Anatomical Region Laterality Modality Body, Chest Computed Tomogra phy 03/05/2025 9:35 PM EDT Impressions 03/05/2025 10:08 PM EDT 1. Tiny right anterior apical pneumothorax measuring up to 0.4 cm. 2. Right-sided pigtail chest tube located in the right upper anterior hemithorax. 3. Soft tissue emphysema in the right chest wall. Approved by:Boris Callahan03/05/2025 9:46 PM. I, Salazar Sr MD,have reviewed the image(s) and agree with the findings in this report. Electronically signed: Salazar Sr MD. Narrative 03/05/2025 10:[address] CHEST WO IV CONTRAST 03/05/2025 8:28 [...] acute abnormality within the visualized upper abdomen. Procedure Note Salazar Sr MD - 03/05/2025 CT CHEST WO IV CONTRAST 03/05/2025 8:28 PM CLINICAL INDICATIONS: Recurrent pneumothorax, status post chest tube TECHNIQUE: Multidetector CT axial slices of the chest were obtainedwithout IV contrast. Multiplanar reformats were performed and viewed on a separate workstation and reviewed to further define anatomy and possible pathology.All CT scans at this facility use dose modulation, iterative reconstruction,and/or weight based dosing when appropriate to reduce radiation dose to as lowas reasonably achievable. COMPARISON: Same day chest radiograph and CT of the chest 01/05/2025. FINDINGS: The visualized thyroid is unremarkable. No enlarged supraclavicular lymphnodes. No cardiomegaly or pericardial effusion. Nonaneurysmal thoracic aorta. Themain pulmonary artery trunk size is within normal limits. No significantcoronary artery calcifications. No enlarged mediastinal, hilar or axillary lymphnodes by size criteria. The central airways are patent without filling defect. There is a tinyanterior apical right-sided pneumothorax measuring up to 0.4 cm in greatestdiameter. Right chest tube pigtail catheter is located in the anterior lateral rightupper pleural space. No pleural effusions. Bibasilar dependent atelectasis. Nofocal consolidation. Soft tissue emphysema in the right chest wall. No other acute chest wallsoft tissue abnormality. No acute osseous abnormality. No acute abnormality within the visualized upper abdomen. IMPRESSION: 1.Tiny right anterior apical pneumothorax measuring up to 0.4 cm. 2.Right-sided pigtail chest tube located in the right upper anterior hemithorax. 3.Soft tissue emphysema in the right chest wall. Approved by:Boris Callahan03/05/2025 9:46 PM. I, Salazar Sr MD,have reviewed the image(s) and agree with the findingsin this report. Electronically signed: Salazar Sr MD. Felisha Hawk [facility] IMG CT PROCEDURES * Electrocardiogram, 12-lead (03/05/2025 7:32 PM EDT) Ventricular Rate 66 BPM GE MUSE Atrial Rate 66 BPM GE MUSE GA Interval 144 ms GE MUSE QRS DURATION 84 ms GE MUSE QT Interval 406 ms GE MUSE QTC CALCULATION(BAZE TT) 425 ms GE MUSE P [place] 62 degrees GE MUSE R-[place] 23 degrees GE MUSE T Wave [place] -10 degrees GE MUSE 03/05/2025 7:14 PM EDT 03/06/2025 1:11 PM EDT Impressions GE MUSE - 03/06/2025 1:11 PM EDT Normal sinus rhythm Normal ECG No previous ECGs available Confirmed by Prema SCHWARZ, [place] Kan ([id number]) on 03/06/2025 1:11:00 PM Narrative Procedure Note Austin Schwarz MD - 03/06/2025 IMPRESSION: Normal sinus rhythm Normal ECG No previous ECGs available Confirmed by Prema SCHWARZ SAMER J. ([id number]) on 03/06/2025 1:11:00 PM [facility] ECG ORDERABLES GE MUSE * (ABNORMAL) Iron and TIBC (03/05/2025 2:59 PM EDT) Only the most recent of2 resultswithin the time period is included. Iron 37(L) 50 - 212 ug/dL 03/05/2025 5:23 PM EDT [facility] ([facility]) TIBC 395 250 - 450 ug/dL 03/05/2025 5:23 PM EDT [facility] ([facility]) Iron Saturation 9(L) 20 - 50 % 5:23 PM EDT [facility] ([facility]) UIBC 358.0(H) 155.0 - 355.0 ug/dL 03/05/2025 5:23 PM EDT [facility] ([facility]) Blood Venous blood specimen / Unknown Arterial Line / Unknown 03/05/2025 2:59 PM EDT 03/05/2025 3:37 PM EDT Jani BARBA-C LAB BLOOD ORDERABLES Performing Organization Address City/[facility]/ZIP Co de Phone Number [facility]) [address], [place] [id number] * (ABNORMAL) Ferritin (03/05/2025 2:59 PM EDT) Only the most recent of2 resultswithin the time period is included. Ferritin 8.0(L) 11.0 - 307.0 ng/mL 03/05/2025 5:42 PM EDT [facility]) Blood Venous blood specimen / Unknown Arterial Line / Unknown 03/05/2025 2:59 PM EDT 03/05/2025 3:37 PM EDT Jani BARBA-C LAB BLOOD ORDERABLES [facility]) [address], [place] [id number] * CHEST TUBE INSERTION (01/02/2025 10:00 AM EST) Narrative Vishnu Miramontes MD - 01/02/2025 10:00 AM EST Vishnu Miramontes MD 01/02/2025 10:05 AM Chest Tube Insertion Date/Time: 01/02/2025 10:00 AM Performed by: Vishnu Miramontes MD Authorized by: Vishnu Miramontes MD Consent: Consent obtained: Written Consent given by: Patient Risks, benefits, and alternatives were discussed: yes Risks discussed: Damage to surrounding structures and bleeding [facility] protocol: Procedure explained and questions answered to [...] material: 2-0 silk Dressinx4 sterile gauze Comments: Financial Institution Vice President: Michael Miller CNP Chest tube insertion requested [...] to confirm tube position, will follow result Vishnu Miramontes MD IN CLINIC/BEDSIDE OR DERABLES * COMPLETE ECHO (TTE) (01/01/2025 2:41 PM EST) Anatomical Region Laterality Modality Other 01/01/2025 2:06 PM EST Narrative 01/01/2025 4:48 PM EST 1 1 [facility] Heart Station [address] [place] [address] [phone] (fax) Echocardiogram-[facility] Name: JULIETTE HAGAN Study Date: 01/01/2025 02:06 PM B/P: 98 mmHg/58 mmHg HR: Date of : 1995 Location: [facility] Height: 66 in. Age: 29 year(s) Patient Room: 3179 Weight: 190 lb. Gender: Female Patient Status: InPt BSA: 1.96 m2 Indication: Unexplained murmur, Chest tube Examination: Echocardiogram (Complete) Image Quality: Fair Patient Consent: Procedure explained to patient Conclusions Left Ventricle: The left ventricle is normal [...] size. Overall Conclusions: No significant valvular abnormalities Measurements Left Ventricle Label Value Normal Value LVOT VTI 20.4 cm (18cm - 22cm) LVOT PGmax 4 mmHg LVEF visual 55 % LVDd, 2D 4.98 cm (3.9cm - 5.3cm) LVDs, 2D 3.85 cm (2.1cm - 4cm) IVSd, 2D 0.81 cm (0.6cm - 1.1cm) LVPWd, 2D 0.86 cm (0.6cm - 0.9cm) LV Mass, 2D ASE 142.52 g LV Mass Index, 2D ASE 72.7 g/m?? (44g/m?? - 88.4g/m??) RWT, MM 0.35 (0 - 0.42) LVSVI, 2D 27 ml/m2 LVOT PGmean 2 mmHg Right Ventricle Label Value Normal Value TAPSE 2.21 cm Aortic Valve Label Value Normal Value AV DVI 0.7 AV VTI 30.1 cm Mitral Valve Label Value Normal Value MV E Vmax 0.69 m/s MV A Vmax 0.4 m/s MV E/A 1.72 MV E/E' lateral 5.2 MV E' lateral 0.13 m/s Tricuspid Valve Label Value Normal Value RA Pressure 3 mmHg RVSP 23 mmHg TR Vmax 2.25 m/s Aorta Label Value Normal Value AoRoot, 2D 2.6 cm (1.4cm - 3.8cm) Valvular Assessment LVOT 0.7 - 1.1 m/sec Aortic Valve 1.0 - 1.7 m/sec Mitral Valve 0.6 - 1.3 m/sec Tricuspid Valve 0.3 - 0.7 m/sec Pulmonic Valve 0.6 - 0.9 m/sec Regurgitation No No Trivial No Stenosis No Max Velocity 1.06 m/sec 1.51 m/s 0.69 m/sec 1.11 m/s Max Gradient 9.00 mmHg 5.00 mmHg Mean Gradient 5.00 mmHg Findings Left Ventricle: The left ventricle is normal [...] The left atrium appears normal in size. Right Atrium: The right atrium appears normal in size. Mitral Valve: The mitral valve is normal in mobility and thickness. No mitral regurgitation. Aortic Valve: The aortic valve is normal. No aortic valve regurgitation. No aortic valve stenosis. Tricuspid Valve: Normal tricuspid valve. Trivial tricuspid regurgitation. Pulmonic Valve: Normal pulmonary valve. No pulmonary regurgitation. Aorta: The aortic root exhibits normal size. Great Vessels: IVC: Normal size and course of the IVC. Pericardium: No pericardial effusion. Procedure Staff Reading Group: [facility] Etl Tester: Mounika Franco RDCS Ordering Physician: GIL ABARCA Procedure Note Jodi Barkley MD - 01/01/2025 1 1 [facility] Heart Station [address] [facility] [place] [address] [phone] (fax) Echocardiogram-[facility] Name: JULIETTE HAGAN Study Date: 01/01/2025 02:06 PM B/P: 98 mmHg/58 mmHg HR: Date of : 1995 Location: [facility] Height: 66 in. Age: 29 year(s) Patient Room: 3179 Weight: 190 lb. Gender: Female Patient Status: InPt BSA: 1.96 m2 Indication: Unexplained murmur, Chest tube Examination: Echocardiogram (Complete) Image Quality: Fair Patient Consent: Procedure explained to patient Conclusions Left Ventricle: The left ventricle is normal [...] size. Overall Conclusions: No significant valvular abnormalities Measurements Left Ventricle Label Value Normal Value LVOT VTI 20.4 cm (18cm - 22cm) LVOT PGmax 4 mmHg LVEF visual 55 % LVDd, 2D 4.98 cm (3.9cm - 5.3cm) LVDs, 2D 3.85 cm (2.1cm - 4cm) IVSd, 2D 0.81 cm (0.6cm - 1.1cm) LVPWd, 2D 0.86 cm (0.6cm - 0.9cm) LV Mass, 2D ASE 142.52 g LV Mass Index, 2D ASE 72.7 g/m?? (44g/m?? - 88.4g/m??) RWT, MM 0.35 (0 - 0.42) LVSVI, 2D 27 ml/m2 LVOT PGmean 2 mmHg Right Ventricle Label Value Normal Value TAPSE 2.21 cm Aortic Valve Label Value Normal Value AV DVI 0.7 AV VTI 30.1 cm Mitral Valve Label Value Normal Value MV E Vmax 0.69 m/s MV A Vmax 0.4 m/s MV E/A 1.72 MV E/E' lateral 5.2 MV E' lateral 0.13 m/s Tricuspid Valve Label Value Normal Value RA Pressure 3 mmHg RVSP 23 mmHg TR Vmax 2.25 m/s Aorta Label Value Normal Value AoRoot, 2D 2.6 cm (1.4cm - 3.8cm) Valvular Assessment LVOT 0.7 - 1.1 m/sec Aortic Valve 1.0 - 1.7 m/sec Mitral Valve 0.6 - 1.3 m/sec Tricuspid Valve 0.3 - 0.7 m/sec Pulmonic Valve 0.6 - 0.9 m/sec Regurgitation No No Trivial No Stenosis No Max Velocity 1.06 m/sec 1.51 m/s 0.69 m/sec 1.11 m/s Max Gradient 9.00 mmHg 5.00 mmHg Mean Gradient 5.00 mmHg Findings Left Ventricle: The left ventricle is normal [...] The left atrium appears normal in size. Right Atrium: The right atrium appears normal in size. Mitral Valve: The mitral valve is normal in mobility and thickness. No mitral regurgitation. Aortic Valve: The aortic valve is normal. No aortic valve regurgitation. No aortic valve stenosis. Tricuspid Valve: Normal tricuspid valve. Trivial tricuspid regurgitation. Pulmonic Valve: Normal pulmonary valve. No pulmonary regurgitation. Aorta: The aortic root exhibits normal size. Great Vessels: IVC: Normal size and course of the IVC. Pericardium: No pericardial effusion. Procedure Staff Reading Group: [facility] Etl Tester: Mounika Franco RDCS Ordering Physician: GIL ABARCA Gil Abarca MD CV ECHO PROCEDURES * Lavender Top (01/01/2025 11:30 AM EST) Extra Tube Hold for add-ons. 01/01/2025 1:01 PM EST [facility] ([facility]) Comment:Auto resulted. Blood Venous blood specimen / Unknown 01/01/2025 11:30 AM EST 01/01/2025 11:50 AM EST Gil Abarca MD LAB BLOOD ORDERABLES [facility] ([facility]) [address] [place] [address] * CT transfer of outside films (01/01/2025 8:56 AM EST) Narrative IMAGING - 01/01/2025 8:56 AM EST This order has been auto-finalized and does not contain a result. Giacomo Velázquez MD IMG CT PROCEDURES IMAGING * TSH3 Reflex to FT4 (01/01/2025 6:18 AM EST) Pathologist [facility] TSH 2.68 0.34 - 5.60 mIU/L 01/01/2025 7:27 AM EST [facility]) Blood Venous blood specimen / Unknown Arterial Line / Unknown 01/01/2025 6:18 AM EST 01/01/2025 6:33 AM EST Benny Ross MD LAB BLOOD ORDERABLES [facility]) [address] [place] [address] * Folate (01/01/2025 6:18 AM EST) Pathologist [facility] Folate 17.34 6.6 - 1,000 ng/mL 01/01/2025 8:27 AM EST [facility]) Blood Venous blood specimen / Unknown Arterial Line / Unknown 01/01/2025 6:18 AM EST 01/01/2025 6:33 AM EST Gil Abarca MD LAB BLOOD ORDERABLES Performing Organization Address City/[facility]/ZIP Co de Phone Number [facility]) [address] [place] [address] * Vitamin B12 (01/01/2025 6:18 AM EST) Pathologist [facility] Vitamin B-12 299 180 - 914 pg/mL 01/01/2025 8:27 AM EST [facility]) Comment: REFERENCE RANGES: 180-914 pg/mL Normal 145-179 pg/mL Indeterminate <145 pg/mL Deficient Blood Venous blood specimen / Unknown Arterial Line / Unknown 01/01/2025 6:18 AM EST 01/01/2025 6:33 AM EST Gil Abarca MD LAB BLOOD ORDERABLES [facility]) [address] [place], [place] [id number] from Last 3 Months Advance Directives * Full Code (Latest Code Status on File) Date Activated Date Inactivated Comments 03/05/2025 2:21 PM 03/11/2025 6:30 PM * Full Code Date Activated Date Inactivated Comments 01/01/2025 1:11 AM 01/07/2025 3:43 PM Care Teams Powerhouse Attendant Relationship Specialty Start Date End Date Millicent Hudson CNP [facility] [facility] [address] [place] [address] PCP - General Family Medicine 12/05/24
--- OUTSIDE RECORDS SUMMARY | 2025-03-31 16:06 | XMS_ITS | Patient Health Record ---
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 Name Role Phone Millicent Carter Primary Care Provider [phone] ShreeaayzHenry [phone] Allergies No Known Allergies Results Component Value Reference Range Notes XR chest 2V Reviewed date:12/24/2024 03:42:28 PM Interpretation: Performing Lab: Notes/Report: Source Facility: [place] [address] XRay Report Signed Patient: JULIETTE HAGAN MR#: [id number] : 1995 Acct:[id number] Age/Sex: 29 / F ADM Date: 12/24/24 Loc: RAD Attending Dr: MILLICENT CARTER Ordering Physician: MILLICENT CARTER Date of Service: 12/24/24 Procedure(s): XR chest 2V Accession Number(s): [id number] cc: MILLICENT CARTER [place] [address] Patient Name: JULIETTE HAGAN MRN: [id number] date: 1995 Sex: F Assigned Patient Location: RAD Current Patient Location: RAD Accession/Order Number: [id number] Exam Date: 12/24/2024 13:44 Report Date: 12/24/2024 13:47 At the request of: MILLICENT CARTER Procedure: XR chest 2V PA AND LATERAL CHEST: CLINICAL HISTORY: Follow-up in patient with history of spontaneous right pneumothorax J93.83 COMPARISON: 12/16/2024 through 12/18/2024 There is no focal parenchymal consolidation, effusion or residual pneumothorax. The cardiac, hilar and mediastinal silhouettes are within normal limits. There is no vascular congestion. The visualized bony thorax is intact. XR/XR chest 2V IMPRESSION: NO ACUTE CARDIOPULMONARY ABNORMALITY. Impression dictated by: Pooja Xiong M.D.12/24/2024 1:47 PM Dictation Location: [place] [address] Electronically authenticated by: [id number] Y Date: 12/24/2024 13:47 Dictated By: Pooja Xiong M.D. Signed By: 12/24/24 1350 DD/ 1347 TD/TT: Melt Room Operator: [place] [address] XRay Report Signed Patient: JULIETTE HAGAN MR#: [id number] : 1995 Acct:[id number] Age/Sex: 29 / F ADM Date: 12/24/24 Loc: RAD Attending Dr: MILLICENT CARTER Ordering Physician: MILLICENT CARTER Date of Service: 12/24/24 Procedure(s): XR chest 2V Accession Number(s): [id number] cc: MILLICENT CARTER [place] [address] Patient Name: JULIETTE HAGAN MRN: [id number] date: 1995 Sex: F Assigned Patient Location: [facility] Current Patient Loca tion: RAD Accession/Order Numb er: [id number] Exam Date: 12/24/2024 13:44 Report Date: 12/24/2024 13:47 At the request of: MILLICENT CARTER Procedure: XR chest 2V PA AND LATERAL CHEST: CLINICAL HISTORY: Follow-up in patient with history of spontaneous right pneumothorax J93.83 COMPARISON: through 12/18/2024 There is no focal parenchymal consolidation, effusion or residual pneumothorax. The cardiac, hilar and mediastinal silhouettes are within normal limits. There is no vascular congestion. The visualized bony thorax is intact. X R/XR chest 2V IMPRESSION: NO ACUTE CARDIOPULMO NARY ABNORMALITY. Impression dictated by: Pooja Xiong M.D.12/24/2024 1:47 PM Dictation Location: [place] [address] Electronically authenticated by: [id number] Y Date: 12/24/2024 13:47 Dictated By: Pooja Xiong M.D. Signed By: 12/24/24 1350 DD/ 1347 TD/TT: Melt Room Operator: UA (Urinalysis, Dipstix only - w/o micro) [...] ESTERASE (BALBINA) - NEG - NEG MG/DL XR chest 1V Reviewed date:12/19/2024 02:07:17 PM Interpretation: Performing Lab: Notes/Report: Source Facility: [place] [address] XRay Report Signed Patient: JULIETTE HAGAN MR#: [id number] : 1995 Acct:[id number] Age/Sex: 29 / F ADM Date: 12/16/24 Loc: MS 232-[address]: Cally Ware M.D. Ordering Physician: Rosana San D.O. Date of Service: 12/17/24 Procedure(s): XR chest 1V Accession Number(s): [id number] cc: Physician,Non-Staff Prema; Rosana San D.O. [place] [address] Patient Name: JULIETTE HAGAN MRN: [id number] date: 1995 Sex: F Assigned Patient Location: MS Current Patient Location: MS Accession/Order Number: [id number] Exam Date: 12/17/2024 15:50 Report Date: 12/17/2024 15:51 At the request of: ROSANA SAN Procedure: XR chest 1V EXAMINATION: XR chest 1V HISTORY: Right PTX (chest tube removed d/t poor placement) residual thrombus or a radiology Camille cell is prior COMPARISON: XR chest 05/16/2025 5:48 AM FINDINGS: LUNGS: Interval removal of right chest tube. Further decrease in size of the second pneumothorax along the upper lateral right chest wall, now 2 mm in thickness. VASCULATURE: No increased pulmonary vasculature. PLEURA: See above. CARDIAC: No cardiomegaly or cardiac silhouette abnormality. MEDIASTINUM: No visible mass or adenopathy. BONES: No fracture or visible bone lesion. OTHER: Negative. XR/XR chest 1V IMPRESSION: 1. Interval removal of right chest tube. 2. Minimal residual right pneumothorax; but < seen earlier today. Electronically authenticated by: DAGO BUTTS Date: 12/17/2024 15:51 Dictated By: Dago Butts M.D. Signed By: 12/17/24 1554 DD/ 1551 TD/TT: Melt Room Operator: [place] [address] XRay Report Signed Patient: JULIETTE HAGAN MR#: [id number] : 1995 Acct:[id number] Age/Sex: 29 / F ADM Date: 12/16/24 Loc: MS 232-[address]: Danni Ware M.D. Ordering Physician: Rosana San D.O. Date of Service: 12/17/24 Procedure(s): XR chest 1V Accession Number(s): [id number] cc: Jeff Curiel M.D.; Rosana San D.O. [place] [address] Patient Name: JULIETTE HAGAN MRN: [id number] date: 1995 Sex: F Assigned Patient Location: MS Current Patient Loca tion: MS Accession/Order Numb er: [id number] Exam Date: 12/17/2024 15:50 Report Date: 12/17/2024 15:51 At the request of: ROSANA SAN Procedure: XR chest 1V EXAMINATION: XR chest 1V HISTORY: Right PTX ( chest tube removed d/t poor placement) residual thrombus or a radiology Camille c ell is prior COMPARISON: XR chest 05/16/2025 5:48 AM FINDINGS: LUNGS: Interval yelena mani of right chest tube. Further decrease in size of the second pneumothorax along the upper lateral right chest wall, now 2 mm in thickness. VASCULATURE: No incr eased pulmonary vasculature. PLEURA: See above. CARDIAC: No cardiome belinda or cardiac silhouette abnormality. MEDIASTINUM: No visi ble mass or adenopathy. BONES: No fracture o r visible bone lesion. OTHER: Negative. X R/XR chest 1V IMPRESSION: 1. Interval removal of right chest tube. 2. Minimal residual right pneumothorax; but < seen earlier today. Electronically authenticated by: DAGO BUTTS Date: 12/17/2024 15:51 Dictated By: Dago Butts M.D. Signed By: 12/17/24 1554 DD/ 1551 TD/TT: Melt Room Operator: CBC AUTO DIFF Reviewed date:12/19/2024 02:07:17 PM Interpretation: Performing Lab: Notes/Report: [facility] , White Blood Count 7.3 4.0-11.0 10 3/uL Red Blood Count 3.83 4.20-5.40 10 6/uL Hemoglobin 10.4 12.0-16.0 g/dL Hematocrit 32.3 36.0-48.0 % Mean Corpuscular Volume 84.3 81.0-99.0 fL Mean Corpuscular Hemoglobin 27.2 26.7-34.0 pg Mean Corpuscular HGB Conc 32.2 29.9-35.2 g/dL Red Cell Distribution Width 13.2 11.0-15.0 % Platelet Count 357 150-450 10 3/uL Mean Platelet Volume 9.5 9.5-13.5 fL Neutrophils Percent Auto 71.9 43.0-75.0 % Lymphocytes Percent Auto 16.4 20.5-60.0 % Monocytes Percent Auto 9.0 1.7-12.0 % Eosinophils Percent Auto 2.1 0.9-7.0 % Basophils Percent Auto 0.5 0.2-2.0 % Immature Granulocytes Pct Auto 0.1 0.0-0.5 % Neutrophils Absolute Auto 5.2 1.4-6.5 10 3/uL Lymphocytes Absolute Auto 1.2 1.2-3.8 10 3/uL Monocytes Absolute Auto 0.7 0.3-0.8 10 3/uL Eosinophils Absolute Auto 0.2 0.0-0.7 10 3/uL Basophils Absolute Auto 0.0 0.0-0.1 10 3/uL Immature Granulocytes Abs Auto 0.01 0.00-0.03 10 3/uL Performing Lab: see note - [facility] LB PROF CHEM 8 (BAS METB) Reviewed date:12/19/2024 02:07:17 PM Interpretation: Performing Lab: Notes/Report: [facility] , Sodium 141 136-145 mmol/L Potassium 4.1 3.5-5.1 mmol/L Chloride 105 98-107 mmol/L Carbon Dioxide 30.7 21.0-32.0 mmol/L Anion Gap 9.4 Glucose 101 74-106 mg/dL Blood Urea Nitrogen 20.0 7.0-18.0 mg/dL Creatinine 0.62 0.55-1.02 mg/dL Estimated GFR ( Lulu >60 >=60 mL/min/1.73m 2 Estimated GFR (Non- Regla >60 >=60 mL/min/1.73m 2 BUN Creatinine Ratio 32.3 Calcium 8.7 8.5-10.1 mg/dL Performing Lab: see note - [facility] LB XR chest 1V Reviewed date:12/19/2024 02:07:17 PM Interpretation: Performing Lab: Notes/Report: Source Facility: [facility]-[address] [place] [address] [place] [address] XRay Report Signed Patient: JULIETTE HAGAN MR#: [id number] : 1995 Acct:[id number] Age/Sex: 29 / F ADM Date: 12/16/24 Loc: MS 232-[address]: Cally Ware M.D. Ordering Physician: Cally Ware M.D. Date of Service: 12/18/24 Procedure(s): XR chest 1V Accession Number(s): [id number] cc: Cally Ware M.D.; Physician,Non-Staff Prema [place] [address] Patient Name: JULIETTE HAGAN MRN: [id number] date: 1995 Sex: F Assigned Patient Location: UT Current Patient Location: MS Accession/Order Number: [id number] Exam Date: 12/18/2024 06:10 Report Date: 12/18/2024 07:31 At the request of: CALLY WARE Procedure: XR chest 1V EXAMINATION: XR chest 1V HISTORY: pneumo COMPARISON: XR chest 12/17/2024 FINDINGS: LUNGS: No significant pulmonary parenchymal abnormalities. VASCULATURE: No increased pulmonary vasculature. PLEURA: No pneumothorax, effusion, or pleural thickening. CARDIAC: No cardiomegaly or cardiac silhouette abnormality. MEDIASTINUM: No visible mass or adenopathy. BONES: No fracture or visible bone lesion. OTHER: Negative. XR/XR chest 1V IMPRESSION: 1. No residual pneumothorax. Electronically authenticated by: DAGO BUTTS Date: 12/18/2024 07:31 Dictated By: Dago Butts M.D. Signed By: 12/18/24 0734 DD/ 0 TD/TT: Melt Room Operator: [place] [address] XRay Report Signed Patient: JULIETTE HAGAN MR#: [id number] : 1995 Acct:[id number] Age/Sex: 29 / F ADM Date: 12/16/24 Loc: MS 232-[address]: Danni Ware M.D. Ordering Physician: Cally Ware M.D. Date of Service: 12/18/24 Procedure(s): XR chest 1V Accession Number(s): [id number] cc: Cally Ware M.D. ; Physician,Non-Staff Prema The [place] [id number] Patient Name: JULIETTE HAGAN MRN: [facility]:[id number] date: 1995 Sex: F Assigned Patient Location: MS Current Patient Loca tion: MS Accession/Order Numb er: [id number] Exam Date: 12/18/2024 06:10 Report Date: 12/18/2024 07:31 At the request of: CALLY WARE Procedure: XR chest 1V EXAMINATION: XR chest 1V HISTORY: pneumo COMPARISON: XR chest 12/17/2024 FINDINGS: LUNGS: No significan t pulmonary parenchymal abnormalities. VASCULATURE: No incr eased pulmonary vasculature. PLEURA: No pneumotho rax, effusion, or pleural thickening. CARDIAC: No cardiome belinda or cardiac silhouette abnormality. MEDIASTINUM: No visi ble mass or adenopathy. BONES: No fracture o r visible bone lesion. OTHER: Negative. X R/XR chest 1V IMPRESSION: 1. No residual pneumothorax. Electronically authenticated by: DAGO BUTTS Date: 12/18/2024 07:31 Dictated By: Dago Butts M.D. Signed By: 12/18/24 0734 DD/ 0731 TD/TT: Melt Room Operator: CBC AUTO DIFF Reviewed date:01/01/2025 11:44:29 AM Interpretation: Performing Lab: Notes/Report: [facility] , White Blood Count 6.9 4.0-11.0 10 3/uL Red Blood Count 4.34 4.20-5.40 10 6/uL Hemoglobin 11.6 12.0-16.0 g/dL Hematocrit 35.8 36.0-48.0 % Mean Corpuscular Volume 82.5 81.0-99.0 fL Mean Corpuscular Hemoglobin 26.7 26.7-34.0 pg Mean Corpuscular HGB Conc 32.4 29.9-35.2 g/dL Red Cell Distribution Width 13.2 11.0-15.0 % Platelet Count 327 150-450 10 3/uL Mean Platelet Volume 9.9 9.5-13.5 fL Neutrophils Percent Auto 63.3 43.0-75.0 % Lymphocytes Percent Auto 26.1 20.5-60.0 % Monocytes Percent Auto 8.9 1.7-12.0 % Eosinophils Percent Auto 0.9 0.9-7.0 % Basophils Percent Auto 0.7 0.2-2.0 % Immature Granulocytes Pct Auto 0.1 0.0-0.5 % Neutrophils Absolute Auto 4.3 1.4-6.5 10 3/uL Lymphocytes Absolute Auto 1.8 1.2-3.8 10 3/uL Monocytes Absolute Auto 0.6 0.3-0.8 10 3/uL Eosinophils Absolute Auto 0.1 0.0-0.7 10 3/uL Basophils Absolute Auto 0.1 0.0-0.1 10 3/uL Immature Granulocytes Abs Auto 0.01 0.00-0.03 10 3/uL Performing Lab: see note [facility] PROF CHEM 8 (BAS METB) Reviewed date:01/01/2025 11:44:29 AM Interpretation: Performing Lab: Notes/Report: [facility] , Sodium 137 136-145 mmol/L Potassium 3.7 3.5-5.1 mmol/L Chloride 100 98-107 mmol/L Carbon Dioxide 29.3 21.0-32.0 mmol/L Anion Gap 11.4 Glucose 112 74-106 mg/dL Blood Urea Nitrogen 11.0 7.0-18.0 mg/dL Creatinine 0.83 0.55-1.02 mg/dL Estimated GFR ( Lulu >60 >=60 mL/min/1.73m 2 Estimated GFR (Non- Regla >60 >=60 mL/min/1.73m 2 BUN Creatinine Ratio 13.3 Calcium 9.2 8.5-10.1 mg/dL Performing Lab: see note - [facility] LB PTT Reviewed date:01/01/2025 11:44:29 AM Interpretation: Performing Lab: Notes/Report: [facility] , Partial Thromboplastin Time 25.6 22.3-36.2 sec Performing Lab: see note [facility] Prothrombin Time INR Reviewed date:01/01/2025 11:44:29 AM Interpretation: Performing Lab: Notes/Report: [facility] , Prothrombin Time 11.9 9.0-11.6 sec INR 1.14 2.0-3.0 CONDITIONS NOT LISTED BELOW 2.5-3.5 RECURRENT THROMBOSIS 2.5-3.5 FOR PROSTHETIC HEART VALVE REPLACEMENT DESIRED INR: Performing Lab: see note ML - [facility] LB HCG Qualitative* Reviewed date:01/01/2025 11:44:29 AM Interpretation: Performing Lab: Notes/Report: [facility] , HCG Qualitative NEGATIVE NEGATIVE Performing Lab: see note ML - [facility] LB ECG 12 lead Reviewed date:01/01/2025 11:44:29 AM Interpretation: Performing Lab: Notes/Report: Source Facility: [facility]-[address] [place] [address] [place] [address] Electrocardiograph Report Signed Patient: JULIETTE HAGAN MR#: [id number] : 1995 Acct:[id number] Age/Sex: 29 / F ADM Date: 12/31/24 Loc: ER Attending Dr: Ordering Physician: Mine Sewell Date of Service: 12/31/24 Procedure(s): ECG 12 lead Accession Number(s): [id number] cc: [facility] Test Date: 2024-12-31 Pat Name: JULIETTE HAGAN Department: Room: - Gender: Female Rehabilitation Services Aide: : 1995 Requested By: MILLICENT CARTER Order Number: [id number] Reading MD: JAVAN ARITA Measurements Intervals [place] Rate: 69 P: 62 IN: 152 QRS: 65 QRSD: 82 T: -4 QT: 362 QTc: 381 Interpretive Statements 1100 Sinus rhythm 4068 Nonspecific Twave abnormality 9130 borderline ECG Electronically Signed On 01-01-2025 6:51:05 EST by JAVAN ARITA Dictated By: Javan Arita D.O. Signed By: 01/01/25 0651 DD/ 1636 TD/TT: Melt Room Operator: [place] [address] Electrocardiograph Report Signed Patient: JULIETTE HAGAN MR#: [id number] : 1995 Acct:[id number] Age/Sex: 29 / F ADM Date: 12/31/24 Loc: ER Attending Dr: Ordering Physician: Mine Sewell Date of Service: 12/31/24 Procedure(s): ECG 12 lead Accession Number(s): [id number] cc: [facility] Test Date: 2024-12-31 Pat Name: JULIETTE HAGAN Department: 08 Room: - Gender: Female Rehabilitation Services Aide: : 1995 Requ ested By: MILLICENT CARTER Order Number: [id number] Reading MD: JAVAN ARITA Measurements Intervals [place] Rate: 69 P: 62 IN: 152 QRS: 65 QRSD: 82 T: -4 QT: 362 QTc: 381 Interpretive Statements 1100 Sinus rhythm 4068 Nonspecific Twa ve abnormality 9130 borderline ECG Electronically [place] d On 01-01-2025 6:51:05 EST by JAVAN ARITA Dictated By: Javan Arita D.O. Signed By: 01/01/25 0651 DD/ 1636 TD/TT: Melt Room Operator: XR chest 1V Reviewed date:01/01/2025 11:44:29 AM Interpretation: Performing Lab: Notes/Report: Source Facility: [place] [address] XRay Report Signed Patient: JULIETTE HAGAN MR#: [id number] : 1995 Acct:[id number] Age/Sex: 29 / F ADM Date: 12/31/24 Loc: ER Attending Dr: Ordering Physician: Fifi Estrada Date of Service: 12/31/24 Procedure(s): XR chest 1V Accession Number(s): [id number] cc: MILLICENT CARTER ; Fifi Estrada [place] [address] Patient Name: JULIETTE HAGAN MRN: [id number] date: 1995 Sex: F Assigned Patient Location: ED.MAIN Current Patient Location: ED.MAIN Accession/Order Number: [id number] Exam Date: 12/31/2024 18:21 Report Date: 12/31/2024 18:22 At the request of: FIFI BARBA Procedure: XR chest 1V XR chest 1V 12/31/2024 6:05 PM SIGNS AND SYMPTOMS: s/p chest tube placement Y PROTOCOL: Frontal radiograph of the chest COMPARISON: Radiograph from earlier on the same date FINDINGS: The trachea is midline. The heart and mediastinal structures are within normal limits. A right-sided chest tube has been placed. The right-sided pneumothorax has resolved. The lung parenchyma is clear. The bony thorax is intact. XR/XR chest 1V IMPRESSION: A right-sided chest tube has been placed. The right-sided pneumothorax has resolved. Impression dictated by: Rashard Bettencourt M.D.12/31/2024 6:22 PM Dictation Location: [place] [address] Electronically authenticated by: [id number] Y Date: 12/31/2024 18:22 Dictated By: Rashard Bettencourt M.D. Signed By: 12/31/241823 DD/ 21 TD/TT: Melt Room Operator: [place] [address] XRay Report Signed Patient: JULIETTE HAGAN MR#: [id number] : 1995 Acct:[id number] Age/Sex: 29 / F ADM Date: 12/31/24 Loc: ER Attending Dr: Ordering Physician: Fifi Estrada Date of Service: 12/31/24 Procedure(s): XR chest 1V Accession Number(s): [id number] cc: MILLICENT CARTER ; Fifi Estrada [place] [id number] Patient Name: JULIETTE HAGAN MRN: [id number] date: 1995 Sex: F Assigned Patient Location: ED.MAIN Current Patient Loca tion: ED.MAIN Accession/Order Numb er: [id number] Exam Date: 12/31/2024 18:21 Report Date: 12/31/2024 18:22 At the request of: FIFI BARBA Procedure: XR chest 1V XR chest 1V 6:05 PM SIGNS AND SYMPTOMS: s/p chest tube placement Y PROTOCOL: Frontal radiograph of the chest COMPARISON: Radiogra ph from earlier on the same date FINDINGS: The trachea is midli ne. The heart and mediastinal structures are within normal limits. A right-sided chest tube has been placed. The right-sided pneumothorax has resolved. The lung parenchyma is clear. The bony thorax is intact. X R/XR chest 1V IMPRESSION: A right-sided chest tube has been placed. The right-sided pneumothorax has resolved. Impression dictated by: Rashard Bettencourt M.D.12/31/2024 6:22 PM Dictation Location: [place] [address] Electronically authenticated by: [id number] Y Date: 12/31/2024 18:22 Dictated By: Rashard Bettencourt M.D. Signed By: 12/31/241823 DD/ 21 TD/TT: Melt Room Operator: XR chest insp exp Reviewed date:01/01/2025 11:44:29 AM Interpretation: Performing Lab: Notes/Report: Source Facility: [place] [address] XRay Report Signed Patient: JULIETTE HAGAN MR#: [id number] : 1995 Acct:[id number] Age/Sex: 29 / F ADM Date: 12/31/24 Loc: ER Attending Dr: Ordering Physician: Fifi Estrada Date of Service: 12/31/24 Procedure(s): XR chest insp exp Accession Number(s): [id number] cc: MILLICENT CARTER ; Fifi Estrada [place] [address] Patient Name: JULIETTE HAGAN MRN: [id number] date: 1995 Sex: F Assigned Patient Location: ER Current Patient Location: ER Accession/Order Number: [id number] Exam Date: 12/31/2024 17:18 Report Date: 12/31/2024 17:21 At the request of: FIFI BARBA Procedure: XR chest insp exp XR chest insp exp 12/31/2024 4:36 PM SIGNS AND SYMPTOMS: right sided pain with breathing, hx of pneumothora PROTOCOL: Frontal radiographs of the chest COMPARISON: 12/24/2024 FINDINGS: The trachea is midline. The heart and mediastinal structures are within normal limits. There is a moderate to large right-sided pneumothorax. The lung parenchyma is clear otherwise. The bony thorax is intact. XR/XR chest insp exp IMPRESSION: There is a moderate to large right-sided pneumothorax. These findings were discussed with Dr. Ashley at 5:20 PM on 12/31/2024 Impression dictated by: Rashard Bettencourt M.D.12/31/2024 5:21 PM Dictation Location: [place] [address] Electronically authenticated by: [id number] Y Date: 12/31/2024 17:21 Dictated By: Rashard Bettencourt M.D. Signed By: 12/31/241722 DD/ 20 TD/TT: Melt Room Operator: [place] [id number] XRay Report Signed Patient: JULIETTE HAGAN MR#: [id number] : 1995 Acct:[id number] Age/Sex: 29 / F ADM Date: 12/31/24 Loc: ER Attending Dr: Ordering Physician: Fifi Estrada Date of Service: 12/31/24 Procedure(s): XR jimmy st insp exp Accession Number(s): [id number] cc: MILLICENT CARTER ; Fifi Estrada [address] [address] Patient Name: JULIETTE HAGAN MRN: [id number] date: 1995 Sex: F Assigned Patient Location: ER Current Patient Loca tion: ER Accession/Order Numb er: [id number] Exam Date: 12/31/2024 17:18 Report Date: 12/31/2024 17:21 At the request of: FIFI BARBA Procedure: XR chest insp exp XR chest insp exp 12/31/2024 4:36 PM SIGNS AND SYMPTOMS: right sided pain wit h breathing, hx of pneumothora PROTOCOL: Frontal radiographs of the chest COMPARISON: 12/24/2024 FINDINGS: The trachea is midli ne. The heart and mediastinal structures are within normal limits. There is a moderate to large right-sided pneumothorax. The lung parenchyma is c lear otherwise. The bony thorax is intact. X R/XR chest insp exp IMPRESSION: There is a moderate to large right-sided pneumothorax. These findings were discussed with Dr. Ashley at 5:20 PM on 12/31/2024 Impression dictated by: Rashard Bettencourt M.D.12/31/2024 5:21 PM Dictation Location: [place] [address] Electronically authenticated by: [id number] Y Date: 12/31/2024 17:21 Dictated By: Rashard Bettencourt M.D. Signed By: 12/31/241722 DD/ 20 TD/TT: Melt Room Operator: CBC AUTO DIFF Reviewed date:01/18/2025 01:06:33 PM Interpretation: Performing Lab: Notes/Report: [facility] , White Blood Count 5.3 4.0-11.0 10 3/uL Red Blood Count 3.71 4.20-5.40 10 6/uL Hemoglobin 10.0 12.0-16.0 g/dL Hematocrit 31.0 36.0-48.0 % Mean Corpuscular Volume 83.6 81.0-99.0 fL Mean Corpuscular Hemoglobin 27.0 26.7-34.0 pg Mean Corpuscular HGB Conc 32.3 29.9-35.2 g/dL Red Cell Distribution Width 13.2 11.0-15.0 % Platelet Count 328 150-450 10 3/uL Mean Platelet Volume 9.4 9.5-13.5 fL Neutrophils Percent Auto 54.8 43.0-75.0 % Lymphocytes Percent Auto 27.6 20.5-60.0 % Monocytes Percent Auto 14.3 1.7-12.0 % Eosinophils Percent Auto 2.5 0.9-7.0 % Basophils Percent Auto 0.6 0.2-2.0 % Immature Granulocytes Pct Auto 0.2 0.0-0.5 % Neutrophils Absolute Auto 2.9 1.4-6.5 10 3/uL Lymphocytes Absolute Auto 1.5 1.2-3.8 10 3/uL Monocytes Absolute Auto 0.8 0.3-0.8 10 3/uL Eosinophils Absolute Auto 0.1 0.0-0.7 10 3/uL Basophils Absolute Auto 0.0 0.0-0.1 10 3/uL Immature Granulocytes Abs Auto 0.01 0.00-0.03 10 3/uL Performing Lab: see note - [facility] LB PROF CHEM 8 (BAS METB) Reviewed date:01/18/2025 01:06:59 PM Interpretation: Performing Lab: Notes/Report: [facility] , Sodium 140 136-145 mmol/L Potassium 3.6 3.5-5.1 mmol/L Chloride 102 98-107 mmol/L Carbon Dioxide 30.1 21.0-32.0 mmol/L Anion Gap 11.5 Glucose 95 74-106 mg/dL Blood Urea Nitrogen 13.0 7.0-18.0 mg/dL Creatinine 0.72 0.55-1.02 mg/dL Estimated GFR ( Lulu >60 >=60 mL/min/1.73m 2 Estimated GFR (Non- Regla >60 >=60 mL/min/1.73m 2 BUN Creatinine Ratio 18.1 Calcium 8.9 8.5-10.1 mg/dL Performing Lab: see note - [facility] ECG 12 lead Reviewed date:01/18/2025 01:05:53 PM Interpretation: Performing Lab: Notes/Report: Source Facility: [facility]-[address] [place] [address] Electrocardiograph Report Signed Patient: JULIETTE HAGAN MR#: [id number] : 1995 Acct:[id number] Age/Sex: 29 / F ADM Date: 01/15/25 Loc: ER Attending Dr: Ordering Physician: Jonah Cruz M.D. Date of Service: 01/15/25 Procedure(s): ECG 12 lead Accession Number(s): [id number] cc: [facility] Test Date: 2025-01-15 Pat Name: JULIETTE HAGAN Department: Room: - Gender: Female Rehabilitation Services Aide: : 1995 Requested By: Order Number: [id number] Roberto MD: JONO JETER M.D. Measurements Intervals [place] Rate: 63 P: 56 IN: 148 QRS: 66 QRSD: 82 T: -5 QT: 396 QTc: 403 Interpretive Statements 1100 Sinus rhythm 1102 Sinus arrhythmia 4068 Nonspecific Twave abnormality 9130 Abnormal ECG Compared to ECG 12/31/2024 16:36:35 No significant changes Electronically Signed On 01-16-2025 8:40:55 EDT by JONO JETER M.D. Dictated By: JONO JETER Signed By: 01/16/25840 DD/ 29 TD/TT: Melt Room Operator: [place] [address] Electrocardiograph Report Signed Patient: JULIETTE HAGAN MR#: [id number] : 1995 Acct:[id number] Age/Sex: 29 / F ADM Date: 01/15/25 Loc: ER Attending Dr: Ordering Physician: Jonah Cruz M.D. Date of Service: 01/15/25 Procedure(s): ECG 12 lead Accession Number(s): [id number] cc: [facility] Test Date: 2025-01-15 Pat Name: JULIETTE HAGAN Department: 08 Room: - Gender: Female Rehabilitation Services Aide: : 1995 Requ ested By: Order Number: [id number] Reading MD: JONO JETER M.D. Measurements Intervals [place] Rate: 63 P: 56 IN: 148 QRS: 66 QRSD: 82 T: -5 QT: 396 QTc: 403 Interpretive Statements 1100 Sinus rhythm 1102 Sinus arrhythmia 4068 Nonspecific Twa ve abnormality 9130 Abnormal ECG Compared to ECG 12/31/2024 16:36:35 No significant changes Electronically [place] d On 01-16-2025 8:40:55 EDT by JONO JETER M.D. Dictated By: JONO JETER Signed By: 01/16/25840 DD/ 29 TD/TT: Melt Room Operator: CBC AUTO DIFF Reviewed date:03/05/2025 11:39:10 AM Interpretation: Performing Lab: Notes/Report: [facility] , White Blood Count 5.3 4.0-11.0 10 3/uL Red Blood Count 4.29 4.20-5.40 10 6/uL Hemoglobin 11.4 12.0-16.0 g/dL Hematocrit 35.5 36.0-48.0 % Mean Corpuscular Volume 82.8 81.0-99.0 fL Mean Corpuscular Hemoglobin 26.6 26.7-34.0 pg Mean Corpuscular HGB Conc 32.1 29.9-35.2 g/dL Red Cell Distribution Width 13.3 11.0-15.0 % Platelet Count 323 150-450 10 3/uL Mean Platelet Volume 10.0 9.5-13.5 fL Neutrophils Percent Auto 66.7 43.0-75.0 % Lymphocytes Percent Auto 19.4 20.5-60.0 % Monocytes Percent Auto 11.8 1.7-12.0 % Eosinophils Percent Auto 1.1 0.9-7.0 % Basophils Percent Auto 0.8 0.2-2.0 % Immature Granulocytes Pct Auto 0.2 0.0-0.5 % Neutrophils Absolute Auto 3.6 1.4-6.5 10 3/uL Lymphocytes Absolute Auto 1.0 1.2-3.8 10 3/uL Monocytes Absolute Auto 0.6 0.3-0.8 10 3/uL Eosinophils Absolute Auto 0.1 0.0-0.7 10 3/uL Basophils Absolute Auto 0.0 0.0-0.1 10 3/uL Immature Granulocytes Abs Auto 0.01 0.00-0.03 10 3/uL Performing Lab: see note ML - [facility] LB PROF 14(COMP METB) Reviewed date:03/05/2025 11:39:10 AM Interpretation: Performing Lab: Notes/Report: [facility] , Sodium 141 136-145 mmol/L Potassium 3.7 3.5-5.1 mmol/L Chloride 102 98-107 mmol/L Carbon Dioxide 29.4 21.0-32.0 mmol/L Anion Gap 13.3 Glucose 88 74-106 mg/dL Blood Urea Nitrogen 15.0 7.0-18.0 mg/dL Creatinine 0.72 0.55-1.02 mg/dL Estimated GFR ( Lulu >60 >=60 mL/min/1.73m 2 Estimated GFR (Non- Regla >60 >=60 mL/min/1.73m 2 BUN Creatinine Ratio 20.8 Calcium 9.1 8.5-10.1 mg/dL Bilirubin Total 0.3 0.2-1.0 mg/dL Aspartate Amino Transferase 18 15-37 U/L Alanine Aminotransferase 27 14-59 U/L Alkaline Phosphatase 103 46-116 U/L Total Protein 7.4 6.4-8.2 g/dL Albumin Level 4.0 3.4-5.0 g/dL Globulin 3.4 Albumin Globulin Ratio 1.2 Performing Lab: see note - [facility] LB Troponin I High Sensitivity Reviewed date:03/05/2025 11:39:10 AM Interpretation: Performing Lab: Notes/Report: [facility] , Troponin I High Sensitivity <4.0 4.0-51.3 pg/mL UNIVERSAL DEFINITION OF MYOCARDIAL INFARCTION. THE UPPER REFERENCE LIMIT (URL) OF TROPONIN, DEFINED THE 99TH WITH OTHER DIAGNOSTIC AND CLINICAL INFORMATION. CUT-OFF POINTS HAVE BEEN ESTABLISHED BASED ON THE FOURTH DIAGNOSIS. 99TH PERCENTILE = 51.4 PG/ML USED IN ISOLATION BUT SHOULD BE INTERPRETED IN CONJUNCTION NOTE: HIGH-SENSITIVITY TROPONIN ASSAY IS NOT INTENDED TO BE HAS BEEN CONFIRMED THE DECISION THRESHOLD FOR AK PERCENTILE OF cTnI DISTRIBUTION IN A REFERENCE POPULATION, Performing Lab: see note - [facility] LB ECG 12 lead Reviewed date:03/08/2025 11:31:13 AM Interpretation: Performing Lab: Notes/Report: Source Facility: [facility]-[address] [place] [address] [place] [address] Electrocardiograph Report Signed Patient: JULIETTE HAGAN MR#: [id number] : 1995 Acct:[id number] Age/Sex: 29 / F ADM Date: 03/05/25 Loc: ER Attending Dr: Ordering Physician: Mine Sewell Date of Service: 03/05/25 Procedure(s): ECG 12 lead Accession Number(s): [id number] cc: [facility] Test Date: 2025-03-05 Pat Name: JULIETTE HAGAN Department: Room: - Gender: Female Rehabilitation Services Aide: : 1995 Requested By: 1854 Order Number: [id number] Roberto MD: JONO JETER M.D. Measurements Intervals [place] Rate: 70 P: 73 IN: 136 QRS: 72 QRSD: 80 T: 9 QT: 366 QTc: 386 Interpretive Statements 1100 Sinus rhythm 4068 Nonspecific Twave abnormality Abnormal ECG Compared to ECG 01/15/2025 21:30:41 Sinus arrhythmia no longer present Electronically Signed On 03-05-2025 17:49:18 EDT by JONO JETER M.D. Dictated By: JONO JETER Signed By: 03/05/251748 DD/ 0 TD/TT: Melt Room Operator: [place] [address] Electrocardiograph Report Signed Patient: JULIETTE HAGAN MR#: [id number] : 1995 Acct:[id number] Age/Sex: 29 / F ADM Date: 03/05/25 Loc: ER Attending Dr: Ordering Physician: Mine Sewell Date of Service: 03/05/25 Procedure(s): ECG 12 lead Accession Number(s): [id number] cc: [facility] Test Date: 2025-03-05 Pat Name: JULIETTE HAGAN Department: 08 Room: - Gender: Female Rehabilitation Services Aide: : 1995 Requ ested By: 1854 Order Number: [id number] Reading MD: JONO JETER M.D. Measurements Intervals [place] Rate: 70 P: 73 IN: 136 QRS: 72 QRSD: 80 T: 9 QT: 366 QTc: 386 Interpretive Statements 1100 Sinus rhythm 4068 Nonspecific Twa ve abnormality Abnormal ECG Compared to ECG 01/15/2025 21:30:41 Sinus arrhythmia no longer present Electronically [place] On 03-05-2025 17:49:18 EDT by JONO JETER M.D. Dictated By: JONO JETER Signed By: 03/05/251748 DD/ TD/TT: Melt Room Operator: [id number] Phenotyp Reviewed date:12/29/2024 07:10:39 AM Interpretation: Performing Lab: Notes/Report: [facility] , [id number], Serum 134 100-188 mg/dL Phenotype (PI) MM . FS 0.05% 70% (70 - 128) SZ 0.3% 41% (42 - 75) reference. Ranges used to confirm phenotype. Parts Department Manager: Jose Alfredo Moran PhD, Phone: [phone] normal serum levels of tyjjd-2-zioasswp inhibitor and *A-1-AT concentration in the homozygous MM phenotype MM Phenotype is considered to be normal , producing in each phenotype is reported relative to this FF Unknown Unknown [address] [place], [place] [id number] Phenotype Population % function A-1-AT Conc.* total serum levels in other phenotypes and their MS 8.0% 86% (83 - 161) [address] [place], [place] [id number] table below. [facility]formed at[facility] - [facility]formed [facility]: - [facility] not associated with clinical disease. Associated A1A ZZ 0.05% 19% (16 - 38) MM 86.5% 100% (96 - 189) FM 0.4% 100% (93 - 191) Incidence % compared to MM (Typical Range) MZ 3.9% 61% (60 - 111) incidence in the general population are shown in the Parts Department Manager: Solomon Polk MD, Phone: [phone] SS 0.1% 64% (62 - 119) FZ Unknown 46% (44 - 88) is taken as the reference normal. Percent deficiency Performing Lab: see note - [facility] LB Genital Culture, Routine Reviewed date:03/22/2025 02:16:46 PM Interpretation: Performing Lab: Notes/Report: [facility] , Genital Culture, Routine See Below For Report Isolated Genital Culture, Routine Isolated O:BETAGB O:KINYARWANDA Organism: Beta hemolytic Strep group B : Genital Culture, Routine *ABNORMAL* Isolated Genital Culture, Routine Isolated O:BETAGB O:KINYARWANDA Organism: Beta hemolytic Strep group B : Genital Culture, Routine Light growth Isolated Genital Culture, Routine Isolated O:BETAGB O:KINYARWANDA Organism: Beta hemolytic Strep group B : Genital Culture, Routine Penicillin and ampicillin are drugs of choice for Isolated Genital Culture, Routine Isolated O:BETAGB O:KINYARWANDA Organism: Beta hemolytic Strep group B : Genital Culture, Routine treatment of beta-hemolytic streptococcal infections. Isolated Genital Culture, Routine Isolated O:BETAGB O:KINYARWANDA Organism: Beta hemolytic Strep group B : Genital Culture, Routine Susceptibility testing of penicillins and other beta- Isolated Genital Culture, Routine Isolated O:BETAGB O:KINYARWANDA Organism: Beta hemolytic Strep group B : Genital Culture, Routine lactam agents a pproved by the FDA for treatment of Isolated Genital Culture, Routine Isolated O:BETAGB O:KINYARWANDA Organism: Beta hemolytic Strep group B : Genital Culture, Routine beta-hemolytic streptococcal infections need not be Isolated Genital Culture, Routine Isolated O:BETAGB O:KINYARWANDA Organism: Beta hemolytic Strep group B : Genital Culture, Routine performed routi pino because nonsusceptible isolates Isolated Genital Culture, Routine Isolated O:BETAGB O:KINYARWANDA Organism: Beta hemolytic Strep group B : Genital Culture, Routine are extremely r are in any beta-hemolytic streptococcus Isolated Genital Culture, Routine Isolated O:BETAGB O:KINYARWANDA Organism: Beta hemolytic Strep group B : Genital Culture, Routine and have not be en reported for Streptococcus pyogenes Isolated Genital Culture, Routine Isolated O:BETAGB O:KINYARWANDA Organism: Beta hemolytic Strep group B : Genital Culture, Routine (group A). (CLSI) Isolated Genital Culture, Routine Isolated O:BETAGB O:KINYARWANDA Organism: Beta hemolytic Strep group B : Genital Culture, Routine Organism: Yeast,, : Isolated Genital Culture, Routine Isolated O:BETAGB O:KINYARWANDA Organism: Beta hemolytic Strep group B : Genital Culture, Routine *ABNORMAL* Isolated Genital Culture, Routine Isolated O:BETAGB O:KINYARWANDA Organism: Beta hemolytic Strep group B : Genital Culture, Routine isolated Isolated Genital Culture, Routine Isolated O:BETAGB O:KINYARWANDA Organism: Beta hemolytic Strep group B : Genital Culture, Routine Light growth Isolated Genital Culture, Routine Isolated O:BETAGB O:KINYARWANDA Organism: Beta hemolytic Strep group B : Genital Culture, Routine Request for fur ther identification must be made Isolated Genital Culture, Routine Isolated O:BETAGB O:KINYARWANDA Organism: Beta hemolytic Strep group B : Genital Culture, Routine within 1 week. Isolated Genital Culture, Routine Isolated O:BETAGB O:KINYARWANDA Organism: Beta hemolytic Strep group B : Genital Culture, Routine Beta hemolytic Strep group B Isolated Genital Culture, Routine Isolated O:BETAGB O:KINYARWANDA Organism: Beta hemolytic Strep group B : Genital Culture, Routine Yeast,, Isolated Genital Culture, Routine Isolated O:BETAGB O:KINYARWANDA Organism: Beta hemolytic Strep group B : Genital Culture, Routine Organism: Beta hemolytic Strep group B : Isolated Genital Culture, Routine Isolated O:BETAGB O:KINYARWANDA Organism: Beta hemolytic Strep group B : Genital Culture, Routine *ABNORMAL* Isolated Genital Culture, Routine Isolated O:BETAGB O:KINYARWANDA Organism: Beta hemolytic Strep group B : Genital Culture, Routine Light growth Isolated Genital Culture, Routine Isolated O:BETAGB O:KINYARWANDA Organism: Beta hemolytic Strep group B : Genital Culture, Routine Penicillin and ampicillin are drugs of choice for Isolated Genital Culture, Routine Isolated O:BETAGB O:KINYARWANDA Organism: Beta hemolytic Strep group B : Genital Culture, Routine treatment of beta-hemolytic streptococcal infections. Isolated Genital Culture, Routine Isolated O:BETAGB O:KINYARWANDA Organism: Beta hemolytic Strep group B : Genital Culture, Routine Susceptibility testing of penicillins and other beta- Isolated Genital Culture, Routine Isolated O:BETAGB O:KINYARWANDA Organism: Beta hemolytic Strep group B : Genital Culture, Routine lactam agents a pproved by the FDA for treatment of Isolated Genital Culture, Routine Isolated O:BETAGB O:KINYARWANDA Organism: Beta hemolytic Strep group B : Genital Culture, Routine beta-hemolytic streptococcal infections need not be Isolated Genital Culture, Routine Isolated O:BETAGB O:KINYARWANDA Organism: Beta hemolytic Strep group B : Genital Culture, Routine performed routi pino because nonsusceptible isolates Isolated Genital Culture, Routine Isolated O:BETAGB O:KINYARWANDA Organism: Beta hemolytic Strep group B : Genital Culture, Routine are extremely r are in any beta-hemolytic streptococcus Isolated Genital Culture, Routine Isolated O:BETAGB O:KINYARWANDA Organism: Beta hemolytic Strep group B : Genital Culture, Routine and have not be en reported for Streptococcus pyogenes Isolated Genital Culture, Routine Isolated O:BETAGB O:KINYARWANDA Organism: Beta hemolytic Strep group B : Genital Culture, Routine (group A). (CLSI) Isolated Genital Culture, Routine Isolated O:BETAGB O:KINYARWANDA Organism: Beta hemolytic Strep group B : Genital Culture, Routine Organism: Yeast,, : Isolated Genital Culture, Routine Isolated O:BETAGB O:KINYARWANDA Organism: Beta hemolytic Strep group B : Genital Culture, Routine *ABNORMAL* Isolated Genital Culture, Routine Isolated O:BETAGB O:KINYARWANDA Organism: Beta hemolytic Strep group B : Genital Culture, Routine isolated Isolated Genital Culture, Routine Isolated O:BETAGB O:KINYARWANDA Organism: Beta hemolytic Strep group B : Genital Culture, Routine Light growth Isolated Genital Culture, Routine Isolated O:BETAGB O:KINYARWANDA Organism: Beta hemolytic Strep group B : Genital Culture, Routine Request for fur ther identification must be made Isolated Genital Culture, Routine Isolated O:BETAGB O:KINYARWANDA Organism: Beta hemolytic Strep group B : Genital Culture, Routine within 1 week. Isolated Genital Culture, Routine Isolated O:BETAGB O:KINYARWANDA Organism: Beta hemolytic Strep group B : Genital Culture, Routine Isolated Genital Culture, Routine Isolated O:BETAGB O:KINYARWANDA Organism: Beta hemolytic Strep group B : Genital Culture, Routine Routine genital brenda. Isolated Genital Culture, Routine Isolated O:BETAGB O:KINYARWANDA Organism: Beta hemolytic Strep group B : Genital Culture, Routine Heavy growth Isolated Genital Culture, Routine Isolated O:BETAGB O:KINYARWANDA Organism: Beta hemolytic Strep group B : Genital Culture, Routine See Below For Report Isolated Genital Culture, Routine Isolated O:BETAGB O:KINYARWANDA Organism: Beta hemolytic Strep group B : Genital Culture, Routine See Below For Report Isolated Genital Culture, Routine Isolated O:BETAGB O:KINYARWANDA Organism: Beta hemolytic Strep group B : Genital Culture, Routine Performed at: [facility] Isolated Genital Culture, Routine Isolated O:BETAGB O:KINYARWANDA Organism: Beta hemolytic Strep group B : Genital Culture, Routine [address] [facility] [place], [place] [id number] Isolated Genital Culture, Routine Isolated O:BETAGB O:KINYARWANDA Organism: Beta hemolytic Strep group B : Genital Culture, Routine Parts Department Manager: Alysa Moran PhD, Phone: [phone] Isolated Genital Culture, Routine Isolated O:BETAGB O:KINYARWANDA Organism: Beta hemolytic Strep group B : Performing Lab: see note - [facility] LB SEE REPORT - Casing In Line Setter Id information not found for OBX-specific type proof reproducer legend HCG Qualitative* Reviewed date:03/05/2025 11:39:10 AM Interpretation: Performing Lab: Notes/Report: [facility] , HCG Qualitative NEGATIVE NEGATIVE Performing Lab: see note ML - [facility] LB Reason For Referral No Information Medications Medication SIG (Take, Route, Fr equency, [...] ast year? No Points 0 Interpretation Negative Problems Problem Type SNOMED Code ICD Code Onset Dates Problem Status W/U Status Risk Notes Problem [id number] Alcohol abuse, uncomplicated (F10.10) Active confirmed Problem Gastroesophageal reflux disease (832518359) GERD (gastroesophagea l reflux disease) (K21.9) Active confirmed Problem High blood pressure (47931002) High blood pressure (I10) Active confirmed Problem Opioid abuse (4953026) Opiate abuse, episodic (F11.10) Active confirmed Problem Mixed anxiety and depressive disorder (546466468) Anxiety and depression (F41.8) Active confirmed Vital Signs Heart Rate 79 /min 01/14/2025 Oximetry 97 % 01/14/2025 Blood pressure diastolic 70 mm Hg 03/18/2025 Height 66 in 03/18/2025 Blood pressure systolic 122 mm Hg 03/18/2025 Weight 192.8 lbs 03/18/2025 BMI 31.12 kg/m2 03/18/2025 Encounters Encounter Location Date Provider Diagnosis [address] [address] 12/24/2024 Millicent Carter Spontaneous pneumothorax J93.[address] [address] 01/14/2025 Millicent Carter Anxiety and depressi on F41.8 and Spontaneous pneumothorax J93.[address] [address] 03/02/2025 Millicent Carter Wellness examination Z00.00 ; Frequent headaches R51.9 and GERD (gastroesophageal reflux disease) K21.[address] [address] 03/18/2025 Millicent Carter Urine frequency R35. 0 and Vaginal itching N89.[address] [address] 12/18/2024 [address] [place] [address] [place] [address] 12/24/2024 Millicent Carter [facility] [address] [place] [address] 12/29/2024 Millicent Carter [facility] [address] [place] [address] 01/07/2025 Millicent Carter [facility] [address] [place] [address] 03/18/2025 Millicent Carter [facility] [address] [place] [address] 03/22/2025 Millicent Carter Assessments Encounter Date Diagnosis (ICD Code) Assessment Notes Treatment Notes Treatment Clinical Notes Section Notes 12/24/2024 Spontaneous pneumothorax (ICD-10 - J93.83) continue monitor cough if not improving, worsens, fever fu 01/14/2025 Anxiety and depression (ICD-10 - F41.8) 01/14/2025 Spontaneous pneumothorax (ICD-10 - J93.83) second time doing well fu pulmonary 03/02/2025 Wellness examination (ICD-10 - Z00.00) ROS done exam done encouraged OBGYN visit 03/02/2025 Frequent headaches (ICD-10 - R51.9) try OTC meds keep headache diary 03/18/2025 Urine frequency (ICD-10 - R35.0) 03/18/2025 Vaginal itching (ICD-10 - N89.8) 03/02/2025 GERD (gastroesophageal reflux disease) (ICD-10 - K21.9) work on diet 03/02/2025 Other omeprazole rx Plan Of Treatment Pending Test Test Name Order Date HEMOGLOBIN A1C (GLYCO) 03/02/2025 IRON, TOTAL 03/02/2025 LIPID PANEL (CHOL/TRIG/HDL/LDL) 03/02/20 25 VITAMIN D, 25 LEVEL (TOTAL) 03/02/2025 CULTURE, GENITAL 03/18/2025 Insulin Level 03/02/2025 THYROID PANEL (T4/TSH/FREE T3) CMP (COMP MET TRAN) w/eGFR CKD-EPI 2024 CBC WITH DIFF 03/02/2025 Insurance Providers Payer Name Payer Address Payer Phone Subscriber Number Group Number Insured Name Patient Relationship to Insured Coverage Start Date Coverage End Date [employer] [place] [employer] [address] [place] [address] [id number] Juliette Hagan Self - patient is the insured Medical (General) History Medical History History ICD Code anxiety depression Hospitalization History Reason Date(Month/Year) pneumothorax 01/26
--- OUTSIDE RECORDS SUMMARY | 2025-03-31 16:06 | XMS_ITS | Patient Health Record ---
Author Organization [facility] Address [address] [place], [place] [id number] Care Team Providers Care Outside Deliverer Name Role Phone Scarlet Jama Unavailable [phone] Reason For Referral No Information Plan Of Treatment No Information Insurance Providers Payer Name Payer Address Payer Phone Subscriber Number Group Number Insured Name Patient Relationship to Insured Coverage Start Date Coverage End Date [employer] [address] [place] [address] [id number] Juliette Hernández Self - patient is the insured 4 D[employer]icaid C after [employer] [address] [place], [place] [id number] Juliette Hernández Self - patient is the insured 4
--- OUTSIDE RECORDS SUMMARY | 2025-03-31 16:06 | XMS_ITS | Encounter Summary ---
Author Organization [facility] Address [address] [place] [address] Care Team Providers Care Studio Operations Engineer In Charge Name Role Phone Millicent Hudson CNP Primary Care Provider [phone] Encounter Details Date Type Department Care Team (Late st Contact Info) Description 03/17/2025 Telephone [facility] [address] [place] [address] Joleen Brooks MA Social History Tobacco Use Types Packs/Day Years Used Date Smoking Tobacco: Never Smokeless Tobacco: Never Alcohol Use Standard Drinks/Week Comments Not Currently 0 (1 standard drink = 0.6 oz pur e alcohol) [facility] Utilities Answer Date Recorded In the past 12 months has e electric, gas, oil, or water [employer] threatened to shut off services in your [...] any time in the past 12 [facility], were you homeless or living in a retirement (including now)? No 03/05/2025 Hunger Vital Sign [...] on file documented as of this encounter Miscellaneous Notes * Telephone Encounter - Joleen Brooks MA - 03/17/2025 12:02 PM EDT Call placed to patient to remind her to complete labs and xray before appointment 03/18 tomorrow at 1:15. No answer left detailed message. documented in this encounter Plan of Treatment Not on file documented as of this encounter Visit Diagnoses Not on filedocumented in this encounter Care Teams Studio Operations Engineer In Charge Relationship Specialty Start Date End Date Millicent Hudson CNP [address] [place] [address], [facility] [place] [address] PCP - General Family Medicine 12/05/24 documented as of this encounter
--- OUTSIDE RECORDS SUMMARY | 2025-03-31 16:07 | XMS_ITS | Clinical Summary ---
Author Organization [facility] Address [address] [place] [address] Care Team Providers Care Investment Trader Name Role Phone Millicent Hudson CNP Primary Care Provider [phone] Allergies No known active allergies Medications Medication [...] at bedtime (Narcotic Constipation). 60 capsule 03/11/2025 5 Active gabapentin (Neurontin) 300 mg capsule 1 capsule if needed. Active methocarbamol (Robaxin) 750 mg tabletIndications :Muscle spasm Take 1 tablet (750 mg) by mouth if needed in the morning, at noon, and at bedtime for muscle spasms. 40 tablet 03/18/2025 5 Active ibuprofen 800 mg tabletIndications :Muscle spasm Take 1 tablet (800 mg) by mouth if needed in the morning and at bedtime for moderate pain (4-7 pain score). 30 tablet 03/18/2025 5 Active acetaminophen (Tylenol) 500 mg tabletIndications :Spontaneous pneumothorax Take 2 tablets (1,000 mg) by mouth every 8 (eight) hours for 284 doses. 30 tablet 01/07/2025 5 Discontinued (Stop Taking at Discharge) ARIPiprazole (Abilify) 5 mg tabletIndications :Anxiety and depression,Histor y of substance dependence (CMS/HCC) Take 1 tablet (5 mg) by mouth in the morning for 93 doses. 30 tablet 3 01/08/2025 5 Discontinued (Stop Taking at Discharge) ferrous sulfate [...] up to 5 days. 20 tablet 03/11/2025 5 Additional Information Patient not taking.Reported on [...] pain control -For pain patient on Tylenol, [place] dose was increased this morning, Toradol and [...] was the second episode the hospitalist at [facility] contact CTS at [facility] and it was decided to transfer patient to [facility] continue pain control incentive spirometry chest [...] (03/05/2025 5:01 PM EDT): - Resume abilify/fluoxetine Encounters Date Type Department Care Team Description 03/18/2025 1:15 PM EDT Office Visit [facility] [address] [place] [address] Carine, Felisha, PRINTING SALES REPRESENTATIVE Muscle spasm (Primary Dx); Recurrent pneumothorax 03/18/2025 12:45 PM EDT Lab [facility] Outpatient Draw Station [address] [place] [address] S/P video-assisted thoracoscopic surgery (VATS); Postoperative anemia due to acute blood loss 03/18/2025 12:32 PM EDT - 03/18/2025 11:59 PM EDT Hospital Encounter [facility] X-Ray Imaging [address] [place] [address] S/P video-assisted thoracoscopic surgery (VATS) Discharge Disposition: Home or Self Care () 03/17/2025 Telephone [facility] [address] [place] [address] Joleen Brooks MA 03/12/2025 Telephone [facility] Vascular Cardiothoracic Surgery [place] [address] [place] [address] Manjula Mosher RN 03/10/2025 Orders Only [facility] Vascular Cardiothoracic Surgery [place] [address] [place] [address] Manjula Mosher, NIHARIKA S/P video-assisted thoracoscopic surgery (VATS); Postoperative anemia due to acute blood loss 03/08/2025 8:49 AM EDT Anesthesia Event [facility] Main Operating Room [address] [place] [address] Gatito Langley MD Meehl, Austin, MD 03/08/2025 8:00 AM EDT - 03/08/2025 11:36 AM EDT Surgery [facility] Main Operating Room [address] [place] [address] Nasim Perez MD RIGHT VATS, APICAL BLEB RESECTION, MECHANICAL PLEURODESIS 03/05/2025 1:58 PM EDT - 03/11/2025 4:30 PM EDT Hospital Encounter [facility] [address] [place] [address] Gena Burleson MD Saad, Hani, MD Lee, Jai, MD Recurrent pneumothorax (Primary Dx) Discharge Disposition: Home or Self Care (01) 03/05/2025 Travel 01/11/2025 Telephone [facility] Pulmonary [address] [place] [id number] Leodan Hardwick MD 01/01/2025 12:02 AM EST - 01/07/2025 1:42 PM EST Hospital Encounter [facility] [address] [place] [address] Duncan Erickson MD Spencer, Caleb T, MD Spontaneous pneumothorax (Primary Dx); Anxiety and depression; History of substance dependence (CMS/HCC); Other iron deficiency anemia Discharge Disposition: Home or Self Care () 01/01/2025 Travel from Last 3 Months Family History Medical History Relation Name Comments Arrhythmia Mother Relation Name Status Comments Mother Social History Tobacco Use Types Packs/Day Years Used Date Smoking Tobacco: Never Smokeless Tobacco: Never Alcohol Use Standard Drinks/Week Comments Not Currently 0 (1 standard drink = 0.6 oz pur e alcohol) [facility] Utilities Answer Date Recorded In the past 12 months has th e [employer], [employer], oil, or water Info threatened to shut off services in your [...] any time in the past 12 m [facility], were you homeless or living in a half-way (including now)? No 03/05/2025 Hunger Vital Sign [...] 03/18/2025 1:28 PM EDT Plan of Treatment Health Maintenance Due Date Last Done Comments Pneumococcal Vaccine: Pediat rics (0 to 5 Years) and At-Risk Patients (6 to 64 Years) (1 of 2 - PCV) 2000 Varicella Vaccines (1 of 2 - 13+ 2-dose series) 2007 Pap Smear 2015 Adult Tetanus 2016 Cervical Cancer Screening 2024 HPV/Cotest 2024 COVID-19 Vaccine (1 - 2023-2 5 season) 2024 Influenza Vaccine (Season Ended) 2025 Depression Screening 03/18/2026 03/18/2025 Zoster Vaccines (1 of 2) 2044 HIB Vaccines Aged Out No longer eligi ble based on patient's age to complete this topic HPV Vaccines Aged Out No longer eligi ble based on patient's age to complete this topic IPV Vaccines Aged Out No longer eligi ble based on patient's age to complete this topic Meningococcal B Vaccine Aged Out No l onger eligible based on patient's age to complete this topic Meningococcal Vaccine Aged Out No adriano trini eligible based on patient's age to complete this topic Rotavirus Vaccines Aged Out No longer eligible based on [...] TREAT PROTOCOL Routine 03/08/2025 11:43 AM EDT DC UNLISTED PROCEDURE NERVOUS SYSTEM Routine 03/08/2025 11:15 [...] LINE PLACEMENT Routine 03/08/2025 9:25 AM EDT DC AN ELECTIVE ENDOTRACHEAL AIRWAY Routine 03/08/2025 9:05 [...] - 10.60 10*3/uL 03/18/2025 1:26 PM EDT [facility] ([facility]) RBC 4.04 3.80 - 5.00 10*6/uL 03/18/2025 1:26 PM EDT [facility] ([facility]) Hemoglobin 10.7(L) 12.0 - 15.0 g/dL 03/18/2025 1:26 PM EDT [facility] ([facility]) Hematocrit 32.9(L) 36.0 - 45.0 % 03/18/2025 1:26 PM EDT [facility] ([facility]) MCV 81.4(L) 82.0 - 98.0 fL 03/18/2025 1:26 PM EDT [facility] ([facility]) MCH 26.5(L) 27.0 - 33.0 pg 03/18/2025 1: PM EDT [facility] ([facility]) MCHC 32.5 32.0 - 35.0 g/dL 03/18/2025 1:26 PM EDT [facility] ([facility]) RDW 13.6 11.5 - 15.0 % 03/18/2025 1: PM EDT [facility] ([facility]) Neutrophils % 69.0 40.0 - 72.0 % 03/18/2025 1: PM EDT [facility] ([facility]) Lymphocytes % 16.9(L) 20.0 - 45.0 % 03/18/2025 1:26 PM EDT [facility] ([facility]) Monocytes % 10.2 5.0 - 12.0 % 03/18/2025 1:26 PM EDT [facility] ([facility]) Eosinophils % 2.5 0.0 - 6.0 % 03/18/2025 1:26 PM EDT [facility] ([facility]) Basophils % 1.0 0.0 - 1.0 % 03/18/2025 1:26 PM T [facility] ([facility]) Neutrophils Absolute 5.04 1.60 - 7.60 10*3/uL 03/18/2025 1:26 PM EDT [facility] ([facility]) Lymphocytes Absolute 1.23 1.20 - 4.00 10*3/uL 03/18/2025 1:26 PM EDT [facility] ([facility]) Monocytes Absolute 0.74 0.10 - 1.00 10*3/uL 03/18/2025 1:26 PM EDT [facility] ([facility]) Eosinophils Absolute 0.18 0.00 - 0.50 10*3/uL 03/18/2025 1:26 PM EDT [facility] ([facility]) Basophils Absolute 0.07 0.00 - 0.20 10*3/uL 03/18/2025 1:26 PM EDT [facility] ([facility]) Platelets 342 150 - 400 10*3/uL 03/18/2025 1:26 PM EDT [facility] ([facility]) nRBC % 0.0 0 % 03/18/2025 1:26 PM EDT [facility] ([facility]) Immature Granulocytes % 0.4 0.0 - 1.0 % 03/18/2025 1:26 PM EDT [facility] ([facility]) Immature Granulocytes Absolute 0.03 0.00 - 0.20 10*3/uL 03/18/2025 1:26 PM EDT [facility] ([facility]) Blood Venous blood specimen / Unknown Venipuncture / Unknown 03/18/2025 12:50 PM EDT 03/18/2025 1:09 PM EDT Nasim Perez MD LAB BLOOD ORDERABLES Performing Organization Address City/[facility]/ZIP Co de Phone Number [facility]) [address], [place] [id number] * (ABNORMAL) Magnesium (03/18/2025 12:50 PM EDT) Only the most recent of8 resultswithin the time period is included. Magnesium 1.8(L) 1.9 - 2.7 mg/dL 03/18/2025 1:30 PM EDT [facility]) Blood Venous blood specimen / Unknown Venipuncture / Unknown 03/18/2025 12:50 PM EDT 03/18/2025 1:06 PM EDT Nasim Perez MD LAB BLOOD ORDERABLES [facility]) [address] [place] [address] * (ABNORMAL) Comprehensive metabolic panel (03/18/2025 12:50 PM EDT) Only the most recent of2 resultswithin the time period is included. Sodium 136 136 - 145 mmol/L 03/18/2025 1:30 PM EDT [facility] ([facility]) Potassium 4.0 3.5 - 5.1 mmol/L 03/18/2025 1:30 PM EDT [facility] ([facility]) Chloride 101 98 - 107 mmol/L 03/18/2025 1:30 PM EDT [facility] ([facility]) CO2 31 21 - 31 mmol/L 03/18/2025 1:30 PM EDT [facility] ([facility]) Anion Gap 8 7 - 20 mmol/L 03/18/2025 1:30 PM EDT [facility] ([facility]) BUN 9 7 - 25 mg/dL 03/18/2025 1:30 PM EDT [facility] ([facility]) Creatinine 0.56(L) 0.60 - 1.20 mg/dL 03/18/2025 1:30 PM EDT [facility] ([facility]) BUN/Creatinine Ratio 16.1 03/04 1:30 PM EDT [facility] ([facility]) Glucose 112(H) 70 - 100 mg/dL 03/18/2025 1:30 PM EDT [facility] ([facility]) Calcium 9.1 8.6 - 10.3 mg/dL 03/18/2025 1:30 PM EDT [facility] ([facility]) AST 18 13 - 39 U/L 03/18/2025 1:30 PM EDT [facility] ([facility]) ALT (SGPT) 22 7 - 52 U/L 03/18/2025 1:30 PM EDT [facility] ([facility]) Alkaline Phosphatase 80 34 - 104 U/L 03/18/2025 1:30 PM T [facility] ([facility]) Total Protein 7.0 6.0 - 8.3 g/dL 03/18/2025 1:30 PM EDT [facility] ([facility]) Albumin 4.2 3.5 - 5.7 g/dL 03/18/2025 1:30 PM EDT [facility] ([facility]) Total Bilirubin 0.3 0.3 - 1.0 mg/dL 03/18/2025 1:30 PM EDT [facility] ([facility]) eGFR 125.8 >60.0 mL/min/1. 73m*2 03/18/2025 1:30 PM EDT [facility] JOSE G) Comment:[facility] s estimated glomerular filtration rate (eGFR) [...] EDT Nasim Perez MD LAB BLOOD ORDERABLES Performing Organization Address City/[facility]/ZIP Co de Phone Number [facility] JOSE G) [address] [place] [address] * Prepare RBC (03/12/2025 6:37 AM EDT) Only the most recent of2 resultswithin the time period is included. PRODUCT CODE [id number] [facility] BL OOD BANK Unit Number [id number] [facility] BLOOD B[facility] Unit ABO B [facility] BLOOD B[facility] Unit Rh POS [facility] B[facility]OD [facility] Dispense Status RE [facility] B[facility]OD [facility] Blood Expiration Date [facility] B[facility]OD [facility] Product Blood Type 7300 [facility] BLOOD B[facility] Unit Volume 300 ML [facility] BLO OD BANK PRODUCT CODE [id number] [facility] BL [facility] Unit Number [id number] [facility] BLOOD B[facility] Unit ABO B [facility] BLOOD [facility] Unit Rh POS [facility] BLOOD [facility] Dispense Status RE [facility] BLOOD [facility] Blood Expiration Date [id number] [facility] B[facility]OD [facility] Product Blood Type 7300 [facility] BLOOD [facility] Gatito Langley MD BLOOD BANK PRODUCT O RDERABLES [facility] BLOOD [facility] * XR chest 1 view [...] pneumothorax. Electronically signed: Dago Casas. Chaparro Horton [facility] IM XR PROCEDUR ES * (ABNORMAL) CBC (03/11/2025 5:20 AM EDT) Only the most recent of6 resultswithin the time period is included. Auto WBC 5.02 4.00 - 10.60 10*3/uL 03/11/2025 5:40 AM EDT [facility] ([facility]) RBC 4.02 3.80 - 5.00 10*6/uL 03/11/2025 5:40 AM EDT [facility] ([facility]) Hemoglobin 10.4(L) 12.0 - 15.0 g/dL 03/11/2025 5:40 AM EDT [facility] ([facility]) Hematocrit 33.2(L) 36.0 - 45.0 % 03/11/2025 5:40 AM EDT [facility] ([facility]) MCV 82.6 82.0 - 98.0 fL 03/11/2025 5:40 AM EDT [facility] ([facility]) MCH 25.9(L) 27.0 - 33.0 pg 03/11/2025 5:40 AM EDT [facility] ([facility]) MCHC 31.3(L) 32.0 - 35.0 g/dL 03/11/2025 5:40 AM EDT [facility] ([facility]) RDW 14.0 11.5 - 15.0 % 03/11/2025 5:40 AM EDT [facility] ([facility]) Platelets 296 150 - 400 10*3/uL 03/11/2025 5:40 AM EDT [facility] ([facility]) Blood Venous blood specimen / Unknown Arterial Line / Unknown 03/11/2025 5:20 AM EDT 03/11/2025 5:27 AM EDT Chaparro Horton PRINTING SALES REPRESENTATIVE LAB BLOOD ORDER AG [facility] ([facility]) [address] [place] [address] * (ABNORMAL) Basic metabolic panel (03/11/2025 5:20 AM EDT) Only the most recent of9 resultswithin the time period is included. Sodium 137 136 - 145 mmol/L 03/11/2025 6:00 AM EDT [facility] ([facility]) Potassium 4.2 3.5 - 5.1 mmol/L 03/11/2025 6:00 AM EDT [facility] ([facility]) Chloride 103 98 - 107 mmol/L 03/11/2025 6:00 AM EDT [facility] ([facility]) CO2 26 21 - 31 mmol/L 03/11/2025 6:00 AM EDT [facility] ([facility]) BUN 20 7 - 25 mg/dL 03/11/2025 6:00 AM EDT [facility] ([facility]) Creatinine 0.48(L) 0.60 - 1.20 mg/dL 03/11/2025 6:00 AM EDT [facility] ([facility]) Glucose 85 70 - 100 mg/dL 03/11/2025 6:00 AM EDT [facility] ([facility]) Calcium 8.5(L) 8.6 - 10.3 mg/dL 03/11/2025 6:00 AM EDT [facility] ([facility]) Anion Gap 12 7 - 20 mmol/L 03/11/2025 6:00 AM EDT [facility] ([facility]) eGFR 130.6 >60.0 mL/min/1. 73m*2 03/11/2025 6:00 AM EDT [facility] ([facility]) Comment:[facility] s estimated glomerular filtration rate (eGFR) [...] individuals. BUN/Creatinine Ratio 41.7 06/2025 6:00 AM EDT [facility] ([facility]) Blood Venous blood specimen / Unknown Arterial Line / Unknown 03/11/2025 5:20 AM EDT 03/11/2025 5:25 AM EDT Chaparro Horton PRINTING SALES REPRESENTATIVE LAB BLOOD ORDER AG [facility] ([facility]) [address], [place] [id number] * (ABNORMAL) POCT glucose meter (03/09/2025 7:53 AM EDT) Only the most recent of4 resultswithin the time period is included. Glucose POC 112(H) 70 - 105 mg/dL 03/09/2025 8:04 AM EDT [facility] ([facility]) Comment:eboltz Blood Capillary blood specimen / Unknown 03/09/2025 7:53 AM EDT 03/09/2025 8:04 AM EDT Narrative [facility]) - 03/09/2025 8:04 AM EDT Waived Testing in the ED is performed under the ED CLIA certificate #[id number]. Nasim Perez MD LAB BLOOD ORDERABLES [facility]) [address] [place] [address] * Protime-INR (03/08/2025 12:04 PM EDT) Only the most recent of2 resultswithin the time period is included. Protime 14.2 12.3 - 14.8 Seconds 03/08/2025 12:32 PM EDT [facility] ([facility]) INR 1.10 0.90 - 1.10 03/08/2025 12:32 PM EDT [facility] ([facility]) Comment: [facility] RECOMMENDED INR FOR WARFARIN THERAPY [...] EDT 03/08/2025 12:09 PM EDT Chaparro Horton PRINTING SALES REPRESENTATIVE LAB BLOOD ORDER AG [facility] JOSE G) [address] [place] [address] * CHG US GUIDANCE NEEDLE PLACEMENT IMG S&I, DC UNLISTED PROCEDURE NERVOUS SYSTEM (03/08/2025 11:15 AM EDT) Narrative Gatito Langley MD - 03/08/2025 11:15 AM EDT Gatito Langley MD 03/08/2025 12:38 PM Peripheral Block Patient location during procedure: OR Start time: 03/08/2025 11:15 AM End time: 03/08/2025 11:30 AM Reason for block: at surgeon's request and post-op pain management Staffing Performed: resident/ABA TUTOR/CAA Anesthesiologist: Gatito Langley MD Resident/ABA TUTOR: Mona Arevalo MD Preanesthetic Checklist Completed: patient [...] AM EDT) Case Report Surgical Pathology Case: [id number] Authorizing Provider: Nasim Perez MD Collected: 03/08/2025 1041 Ordering Location: [facility] Main Operating Room Received: 03/08/2025 1238 Pathologist: Morris Santamaria MD Specimen: Other, RIGHT APICAL BLEB 03/11/2025 9:18 AM EDT [facility] ([facility]) Final Diagnosis A. Lung, right apical bleb, resection: - Benign lung parenchyma with dilated airspaces, consistent with apical bleb. - No malignancy identified. 03/11/2025 9:18 AM EDT [facility] ([facility]) Clinical Information Post-Op Diagnoses J93.9 - Recurrent pneumothorax [ICD-10-CM] 03/11/2025 9:18 AM EDT [facility] ([facility]) Gross Description A. Other. The specimen is received in formalin labeled Juliette Puckette and right apical bleb. It consists of [...] No distinct dilated airspaces are grossly identified. Senior Vice President sections are sequentially submitted in 4 cassettes. Shannon Lugo, Pathologists' Plant Care Worker student Emanuel Quinones Pathologists' Plant Care Worker 03/11/2025 9:18 AM EDT [facility] ([facility]) Microscopic Description Microscopic examination performed. 03/11/2025 9:18 AM EDT [facility] ([facility]) Tissue Topography unknown / Unknown 03/08/2025 10:41 AM EDT 03/08/2025 12:38 PM EDT Comment:Pre-op diagnosis: Recurrent pneumothorax [J93.9] Nasim Perez MD LAB PATHOLOGY ORDERA BLES [facility] ([facility]) [address] [place] [address] * Type and screen (03/08/2025 10:15 AM EDT) ABO Grouping B 03/08/2025 11:10 AM EDT [facility] Rh Type POS 03/08/2025 11:10 AM EDT [facility] Ab Scrn NEG 03/08/2025 11:10 AM EDT [facility] Blood Venous blood specimen / Unknown Arterial Line / Unknown 03/08/2025 10:15 AM EDT 03/08/2025 10:15 AM EDT Gatito Langley MD LAB BLOOD BANK TEST ORDERABLES [facility] * Peripheral IV (03/08/2025 9:50 AM EDT) Gatito Lee MD - 03/08/2025 9:50 AM EDT Mona [...] procedure well with no complications. Staffing Performed: resident/ABA TUTOR/CAA Anesthesiologist: Gatito Langley MD Resident/ABA TUTOR: Mona Arevalo MD Performed by: Mona Arevalo MD Authorized by: Gatito Langley MD Gatito Langley MD ANESTHESIA ORDERABLE S * DC AN ELECTIVE ENDOTRACHEAL AIRWAY (03/08/2025 9:05 AM EDT) Gatito Lee MD - 03/08/2025 9:05 AM EDT Mona Arevalo MD 03/08/2025 9:52 AM Airway Date/Time: 03/08/2025 9:05 AM Urgency: elective Airway not difficult General Information and Staff Patient location during procedure: OR Anesthesiologist: Gatito Langley MD Resident/ABA TUTOR/CAA: Mona Arevalo MD Performed: anesthesiologist Indications and [...] of2 resultswithin the time period is included. Extra Tube Hold for add-ons. 03/07/2025 5:01 PM EDT [facility] ([facility]) Comment:Auto resulted. Blood Venous blood specimen / Unknown 03/07/2025 2:52 PM EDT 03/07/2025 3:09 PM EDT Parker Yang MD LAB BLOOD ORDERABLES [facility] ([facility]) [address] [place] [address] * (ABNORMAL) Toxicology Screen, Urine (03/06/2025 10:41 AM EDT) Only the most recent of2 resultswithin the time period is included. Barbiturates Negative Negative 03/06/2025 11:24 AM EDT [facility] ([facility]) Benzodiazepines Negative Negative 11:24 AM EDT [facility] ([facility]) Propoxyphene Negative Negative 03/06/2025 11:24 AM EDT [facility] ([facility]) Methadone Negative Negative 03/06/2025 11:24 AM EDT [facility] ([facility]) Tricyclics Negative Negative 03/06/2025 11:24 AM EDT [facility] ([facility]) Phencyclidine Negative Negative 03/06/2025 11:24 AM EDT [facility] ([facility]) Opiates Positive(A) Negative 03/06/2025 11:24 AM EDT [facility] ([facility]) Cocaine Negative Negative 03/06/2025 11:24 AM EDT [facility] ([facility]) Amphetamines/Metha mphetamine Negative Negative 03/06/2025 11:24 AM EDT [facility] ([facility]) Cannabinoid Negative Negative 03/06/2025 11:24 AM EDT [facility] ([facility]) Urine Urine specimen obtained by clean catch procedure / Unknown Non-blood Collection / Unknown 03/06/2025 10:41 AM EDT 03/06/2025 10:47 AM EDT Narrative [facility] ([facility]) - 03/06/2025 11:24 AM EDT Unconfirmed screening results should only be used for medical purposes. Felisha Hawk CNP LAB URINE ORDERABLES [facility] ([facility]) [address] [place] [address] * Urinalysis (03/06/2025 10:41 AM EDT) Color, Urine Light-Yellow Colorless, Yellow, Light-Yellow 03/06/2025 10:59 AM EDT [facility] ([facility]) Clarity, Urine Clear Clear 03/06/2025 10:59 AM EDT [facility] ([facility]) pH, Urine 6.5 5.0 - 8.0 pH 03/06/2025 10:59 AM EDT [facility] ([facility]) Leukocytes, Urine Negative Negative 03/06/2025 10:59 AM EDT [facility] ([facility]) Nitrite, Urine Negative Negative 03/06/2025 10:59 AM EDT [facility] ([facility]) Protein, Urine Negative Negative mg/dL 03/06/2025 10:59 AM EDT [facility] ([facility]) Glucose, Urine Normal Normal mg/dL 03/06/2025 10:59 AM EDT [facility] ([facility]) Bilirubin, Urine Negative Negative 03/06/2025 10:59 AM EDT [facility] ([facility]) Specific [place], Urine 1.020 1.010 - 1.030 03/06/2025 10:59 AM EDT [facility] ([facility]) Ketones, Urine Negative Negative mg/dL 03/06/2025 10:59 AM EDT [facility] ([facility]) Blood, Urine Negative Negative 03/06/2025 10:59 AM EDT [facility] ([facility]) Urobilinogen, Urine Normal Normal mg/dL 03/06/2025 10:59 AM EDT [facility] ([facility]) Urine Urine specimen obtained by clean catch procedure / Unknown Non-blood Collection / Unknown 03/06/2025 10:41 AM EDT 03/06/2025 10:47 AM EDT Narrative [facility] ([facility]) - 03/06/2025 10:59 AM EDT Microscopics not performed on urines with negative chemical reactions unless requested on original order. Felisha Hawk PRINTING SALES REPRESENTATIVE LAB URINE ORDERABLES [facility] ([facility]) [address] [place], [place] [id number] * CT chest wo IV contrast (03/05/2025 [...] Electronically signed: Salazar Sr MD. Felisha Hawk [facility] CT PROCEDURES * Electrocardiogram, 12-lead (03/05/2025 7:32 PM EDT) Ventricular Rate 66 BPM GE MUSE Atrial Rate 66 BPM GE MUSE DC Interval 144 ms GE MUSE QRS DURATION 84 ms GE MUSE QT Interval 406 ms GE MUSE QTC CALCULATION(BAZE TT) 425 ms GE MUSE P [place] 62 degrees GE MUSE R-[place] 23 degrees GE MUSE T Wave [place] -10 degrees GE MUSE 03/05/2025 7:14 PM [...] AUSTIN Kan (56) on 03/06/2025 1:11:00 PM Felisha Hawk [facility] ECG ORDERABLES GE MUSE * (ABNORMAL) Iron and TIBC (03/05/2025 2:59 PM EDT) Only the most recent of2 resultswithin the time period is included. Pathologist [facility] Iron 37(L) 50 - 212 ug/dL 03/05/2025 5:23 PM EDT [facility] ([facility]) TIBC 395 250 - 450 ug/dL 03/05/2025 5:23 PM EDT [facility] ([facility]) Iron Saturation 9(L) 20 - 50 % 5:23 PM EDT [facility] ([facility]) UIBC 358.0(H) 155.0 - 355.0 ug/dL 03/05/2025 5:23 PM EDT [facility] ([facility]) Blood Venous blood specimen / Unknown Arterial Line / Unknown 03/05/2025 2:59 PM EDT 03/05/2025 3:37 PM EDT Jani Sekou PA-C LAB BLOOD ORDERABLES Performing Organization Address City/[facility]/ZIP Co de Phone Number [facility] ([facility]) [address] [place], [place] [id number] * (ABNORMAL) Ferritin (03/05/2025 2:59 PM EDT) Only the most recent of2 resultswithin the time period is included. Ferritin 8.0(L) 11.0 - 307.0 ng/mL 03/05/2025 5:42 PM EDT [facility] ([facility]) Blood Venous blood specimen / Unknown Arterial Line / Unknown 03/05/2025 2:59 PM EDT 03/05/2025 3:37 PM EDT Jani Sekou iWelcome-C LAB BLOOD ORDERABLES Performing Organization Address City/[facility]/ZIP Co de Phone Number [facility] ([facility]) [address] [place] [address] * CHEST TUBE INSERTION (01/02/2025 10:00 AM EST) Narrative Vishnu Miramontes MD - 01/02/2025 10:00 AM EST Vishnu Miramontes MD 01/02/2025 10:05 AM Chest Tube Insertion Date/Time: 01/02/2025 10:00 AM Performed by: Vishnu Miramontes MD Authorized by: Vishnu Miramontes MD Consent: Consent obtained: Written Consent given by: Patient Risks, benefits, and alternatives were discussed: yes Risks discussed: Damage to surrounding structures and bleeding [place] protocol: Procedure explained and questions answered to [...] material: 2-0 silk Dressinx4 sterile gauze Comments: Plant Care Worker: Michael Miller CNP Chest tube insertion requested [...] Narrative 01/01/2025 4:48 PM EST 1 1 [facility] Heart Station [address] [place] [address] [phone] (fax) Echocardiogram-[facility] Name: JULIETTE HAGAN Study Date: 01/01/2025 02:06 PM B/P: 98 mmHg/58 mmHg HR: Date of : 1995 Location: [facility] Height: 66 in. Age: 29 year(s) Patient [...] No pericardial effusion. Procedure Staff Reading Group: [facility] Fiberglass Laminator: Mounika Franco RDCS Ordering Physician: GIL ABARCA Procedure Note Jodi Barkley MD - 01/01/2025 1 1 [facility] Heart Station [address] [place] [address] [phone] (fax) Echocardiogram-[facility] Name: JULIETTE HAGAN Study Date: 01/01/2025 02:06 PM B/P: 98 mmHg/58 mmHg HR: Date of : 1995 Location: [facility] Height: 66 in. Age: 29 year(s) Patient [...] No pericardial effusion. Procedure Staff Reading Group: [facility] Fiberglass Laminator: Mounika Franco RDCS Ordering Physician: GIL ABARCA Gil Abarca MD CV ECHO PROCEDURES * Lavender Top (01/01/2025 11:30 AM EST) Extra Tube Hold for add-ons. 01/01/2025 1:01 PM EST [facility] ([facility]) Comment:Auto resulted. Blood Venous blood specimen / Unknown 01/01/2025 11:30 AM EST 01/01/2025 11:50 AM EST Gil Abarca MD LAB BLOOD ORDERABLES Performing Organization Address [facility] Co de Phone Number [facility]) [address] [place] [address] * CT transfer of outside films (01/01/2025 8:56 AM EST) Narrative IMAGING - 01/01/2025 8:56 AM EST This order has been auto-finalized and does not contain a result. Giacomo Velázquez MD IMG CT PROCEDURES Performing Organization Address [facility] Co de Phone Number IMAGING * TSH3 Reflex to FT4 (01/01/2025 6:18 AM EST) TSH 2.68 0.34 - 5.60 mIU/L 01/01/2025 7:27 AM EST [facility] ([facility]) Blood Venous blood specimen / Unknown Arterial Line / Unknown 01/01/2025 6:18 AM EST 01/01/2025 6:33 AM EST Benny Ross MD LAB BLOOD ORDERABLES Performing Organization Address City/[facility]/ZIP Co de Phone Number [facility]) [address] [place] [address] * Folate (01/01/2025 6:18 AM EST) Folate 17.34 6.6 - 1,000 ng/mL 01/01/2025 8:27 AM EST [facility] ([facility]) Blood Venous blood specimen / Unknown Arterial Line / Unknown 01/01/2025 6:18 AM EST 01/01/2025 6:33 AM EST Gil Abarca MD LAB BLOOD ORDERABLES Performing Organization Address City/[facility]/ZIP Co de Phone Number [facility] ([facility]) [address] [place] [address] * Vitamin B12 (01/01/2025 6:18 AM EST) Vitamin B-12 299 180 - 914 pg/mL 01/01/2025 8:27 AM EST [facility] ([facility]) Comment: REFERENCE RANGES: 180-914 pg/mL Normal 145-179 pg/mL Indeterminate <145 pg/mL Deficient Blood Venous blood specimen / Unknown Arterial Line / Unknown 01/01/2025 6:18 AM EST 01/01/2025 6:33 AM EST Gil Abarca MD LAB BLOOD ORDERABLES Performing Organization Address [facility] Co de Phone Number [facility] ([facility]) [address] [place] [address] from Last 3 Months Advance Directives * Full Code (Latest Code Status on File) Date Activated Date Inactivated Comments 03/05/2025 2:21 PM 03/11/2025 6:30 PM * Full Code Date Activated Date Inactivated Comments 01/01/2025 1:11 AM 01/07/2025 3:43 PM Care Teams 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
[2025-03-31 16:46] VITALS: BP 127/53; PULSE 67; O2SAT 99; BMI 31.8
[2025-03-31 16:49] VITALS: TEMP 36.7
--- NOTE | 2025-03-31 17:47 | ED_ITS ---
HPI HPI - General Adult General Chief complaint: Chest Pain Stated complaint: PAIN ON R SIDE Time Seen by Provider: 03/31/25 16:02 Source: patient Mode of arrival: walk-in Limitations: no limitations History of Present Illness HPI narrative: 29-year-old female presents for pain in the right side of her chest. It is sharp and has been intermittent since yesterday morning. She has a history of pneumothoraces and has had 2 Procedures: For that issue. The last one was earlier this month and the first 1 was in January. The pain comes and goes. No fever or cough or injury. Related Data Home Medications ?Medication ?Instructions ?Recorded ?Confirmed fluoxetine 20 mg capsule 20 mg PO DAILY 12/16/24 05/12/29 Allergies Allergy/AdvReac Type Severity Reaction Status Date / Time No Known Drug Allergies Allergy Verified 03/05/25 08:46 Opioid HPI Opioid Management Most Recent Opioid Data: Last Pain Scale 8 Today, 16:46 Last ORT Total Score 6 12/16/24, 13:48 Last ORT Risk Category Moderate Risk 12/16/24, 13:48 Review of Systems ROS Narrative A ten point review of systems is negative except as noted above. [facility] Medical History (Updated 03/31/25 @ 17:47 by Jonah Cruz MD) Primary spontaneous pneumothorax (12/16/24) ?J93.11 - Primary spontaneous pneumothorax (ICD-10) Pneumothorax on right ?J93.9 - Pneumothorax, unspecified (ICD-10) Urinary tract infection ?N39.0 - Urinary tract infection, site not specified (ICD-10) Anxiety ?F41.9 - Anxiety disorder, unspecified (ICD-10) History of depression ?Z86.59 - Personal history of other mental and behavioral disorders (ICD-10) Family History (Updated 12/16/24 @ 13:52 by Yuliana Tang RN) Grandfather Family history of myocardial infarction Mother Family history of myocardial infarction Grandmother Family history of cancer Social History (Updated 12/16/24 @ 13:52 by Yuliana Tang RN) Within the past year, how often did you have a drink containing alcohol: never Score interpretation: A score less than 3 is consistent with normal alcohol consumption. Smoking status: Never smoker Non-prescribed substance use: denies use Highest level of school completed/degree received: GED or equivalent Little interest or pleasure in doing things: not at all Feeling down, depressed, or hopeless: not at all Exam Narrative Exam Narrative: Nurses note and vital signs reviewed and patient is not hypoxic. General: The patient appears well and in no apparent distress. Patient is resting comfortably on cart. Skin: Warm, dry, no pallor noted. There is no rash noted. Head: Normocephalic, atraumatic Eye: Normal conjunctiva, no drainage Ears, Nose, Mouth, and Throat: oral mucosa is moist. Nares patent. Cardiovascular: Regular Rate and Rhythm Respiratory: Patient is in no distress, no accessory muscle use, lungs are clear to auscultation, no wheezing, rales or rhonchi. Breath sounds are equal and there is no chest wall crepitus. Back: non-tender GI: Soft and nontender Musculoskeletal: The patient has no evidence of calf tenderness, no pitting edema, symmetrical pulses noted bilaterally Neurological: A&O, normal speech Psychiatric: Cooperative Constitutional Vital Signs, click to edit/add: Last Vital Signs Temp 98.1 F 03/31/25 16:49 Pulse 67 03/31/25 16:46 Resp 16 03/31/25 16:46 BP 127/53 03/31/25 16:46 Pulse Ox 99 03/31/25 16:46 O2 Del Method Room Air 03/31/25 16:46 Course Vital Signs Vital signs: Vital Signs Pulse Rate 67 03/31/25 16:46 Respiratory Rate 16 03/31/25 16:46 Blood Pressure 127/53 03/31/25 16:46 Pulse Oximetry 99 03/31/25 16:46 Oxygen Delivery Method Room Air 03/31/25 16:46 Temperature 98.1 F 03/31/25 16:49 Pulse Rate 67 03/31/25 16:46 Respiratory Rate 16 03/31/25 16:46 Blood Pressure 127/53 03/31/25 16:46 Pulse Oximetry 99 03/31/25 16:46 Oxygen Delivery Method Room Air 03/31/25 16:46 Medical Decision Making [facility] Narrative Medical decision making narrative: Chest x-ray per radiologist shows no pneumothorax and shows right pleural effusion which is most likely from her recent procedure. Findings were discussed with the patient and she is able to be discharged home after being given IM Toradol. Treatment diagnosis and follow-up were discussed with the patient. I have no clinical suspicion of pneumonia or other infection. Differential Diagnosis Differential Diagnosis: Pneumothorax, chest wall pain Imaging Data Chest x-ray: Radiologist's impression: Small right pleural effusion with atelectasis/airspace disease Discharge Plan Discharge Chief Complaint: Chest Pain Clinical Impression: Chest wall pain Patient Disposition: Home, Self-Care Time of Disposition Decision: 17:47 Condition: Good Mode of Transportation: Private Vehicle Prescriptions / Home Meds: No Action fluoxetine 20 mg capsule 20 mg PO DAILY Print Language: Moldovan Instructions: Chest Wall Pain (ED) Referrals: YUE CARTER [Primary Care Provider, Family Practice] - 1 week
[2025-03-31] MEDS: KETOROLAC TROMETHAMINE 60 MG/2 ML VIAL IM (18:03)
== END 2025-03-31 18:07 | disposition home or self-care (01) ==
PROVIDERS: Emergency Provider Emergency Medicine; PCP Nurse Practitioner Family
DX: R07.89 Other chest pain (principal)
CPT/HCPCS: 71045; 96372; 99284; J1885